=== PATIENT | male | born 1960 | race Caucasian/White ===

== ENCOUNTER 2016-07-27 20:54 | Inpatient (IN) | payer OTHER ==
[~2016-07-27] VITALS: Ht 170.2 cm; Wt 103.6 kg
[2016-07-27] MEDS ORDERED: ASPIRIN 300 MG SUPP PR STA (20:59)
[2016-07-27] MEDS ORDERED: HEPARIN 25000 UNITS/250 ML 250 ML IV STA (21:22)
[2016-07-27] MEDS ORDERED: HEPARIN 1000 UNITS/ML 10 ML INJ IV STA (21:22)
[2016-07-27 21:27] VITALS: TEMP 97.5
[2016-07-27] MEDS ORDERED: PROPOFOL 100 ML IV ONE ×2 (21:30)
[2016-07-27] MEDS ORDERED: PROPOFOL 200 MG INJ IV ONE (21:30)
[2016-07-27] MEDS ORDERED: hydrALAzine 20 MG INJ IV ONE (21:30)
[2016-07-27] MEDS ORDERED: METOPROLOL 5 MG INJ IV ONE (21:30)
[2016-07-27 21:45] LABS: POTASSIUM 5.8 mmol/L (3.5-5.1)
[2016-07-27 21:46] LABS: INR 0.99; PROTIME 13.1 Sec (12.2-14.2)
[2016-07-27 21:48] LABS: CREATININE 11.23 mg/dl (0.61-1.24)
[2016-07-27] MEDS ORDERED: NA BICARBONATE 8.4% 50 ML SYG ONE (21:56)
[2016-07-27 21:58] LABS: HEMATOCRIT 43.9 % (42.0-52.0); HEMOGLOBIN 14.2 g/dl (14.0-18.0); MEAN CORPUSCULAR HEMOGLOBIN 31.8 pg (29.0-33.0); MEAN CORPUSCULAR HGB CONC 32.3 g/dl (32.0-37.0); MEAN CORPUSCULAR VOLUME 98.2 fl (82.0-101.0); RED BLOOD COUNT 4.47 10^6/ul (4.70-6.10); RED CELL DISTRIBUTION WIDTH 15.9 % (11.5-14.5); UNCORRECTED WBC 17.1 10^3/ul (4.8-10.8); WHITE BLOOD COUNT 17.1 10^3/ul (4.8-10.8)
[2016-07-27 21:59] LABS: BASOPHILS % 1.1 % (0.0-2.0); EOSINOPHILS % 3.5 % (0.0-7.0); LYMPHOCYTES % 33.3 % (15.0-51.0); MEAN PLATELET VOLUME 10.7 fl (7.4-10.4); MONOCYTES % 5.6 % (0.0-11.0); NEUTROPHILS % 54.2 % (39.0-77.0); NUCLEATED RED BLOOD CELLS% 0.1 /100WBC (0.0-0.0); PLATELET COUNT 396 10^3/UL (140-440)
[2016-07-27 22:00] LABS: BASOPHIL # 0.2 10^3/ul (0.0-0.1); EOSINOPHILS # 0.6 10^3/ul (0.0-0.5); LYMPHOCYTES # 5.7 10^3/ul (0.8-2.9); NEUTROPHIL # 9.3 10^3/ul (1.6-7.5)
[2016-07-27] MEDS ORDERED: NITROGLYCERIN (IC) 100 MCG/ML INJ ONE (22:02)
[2016-07-27 22:03] LABS: TROPONIN-I 0.134 ng/ml (0.00-0.12)
[2016-07-27] MEDS ORDERED: METO-407 PO (22:03)
[2016-07-27] MEDS ORDERED: LOSA50TA6 PO (22:04)
[2016-07-27] MEDS ORDERED: AMLO5TAB4 PO (22:04)
[2016-07-27] MEDS ORDERED: NEPH PO (22:05)
[2016-07-27] MEDS ORDERED: MIN10 PO (22:05)
[2016-07-27] MEDS ORDERED: ALLO100T PO (22:05)
[2016-07-27] MEDS ORDERED: GABA300C16 PO (22:06)
[2016-07-27] MEDS ORDERED: ATOR80TA75 PO (22:06)
[2016-07-27] MEDS ORDERED: ASPI-664 PO (22:06)
--- NOTE | 2016-07-27 22:06 | ERA ---
ER Documentation Chief Complaint Date/Time DATE: 07/27/16 TIME: 21:47 Chief Complaint witnessed cardiac arrest, CPR x9min, epi x3, then ROSC acheived HPI This 56-year-old male was brought in by paramedics after cardiac arrest. Paramedics said that according to family patient was feeling short of breath today. He walked and sat down in a chair when he just passed out. The paramedics arrived she was in pulseless electrical activity. I gave him 2 doses of epinephrine and return of spontaneous circulation very quickly. Afterwards his blood pressure was extremely high with systolic in the 260s over diastolic in the 120s. Patient maintained pulses since.Pattern And Chain Maker EKG was not available on arrival. Patient had been intubated and was receiving bag mask ventilation. ROS Unobtainable PMhx/Soc Medical and Surgical Hx: Unable to obtain Smoking Status: Unknown if ever smoked Physical Exam Vitals Vital Signs Date Time Temp Pulse Resp B/P Pulse Ox O2 Delivery O2 Flow Rate FiO2 07/27/16 21:34 100 29 160/77 100 Mechanical Ventilator 07/27/16 21:27 97.5 99 33 178/73 100 Mechanical Ventilator 07/27/16 21:06 Bag Valve Mask 07/27/16 21:02 94.1 106 14 240/142 100 07/27/16 21:01 103 32 262/114 100 Physical Exam Const: [] Unresponsive Head: Atraumatic Eyes: Normal Conjunctiva, pupils fixed at 4 mm ENT: Normal External Ears, Nose and Mouth. Neck: Full range of motion..~ No meningismus. Resp: Decreased breath sounds on left side compared to the right, receiving bag mask ventilation Cardio: Mild regular tachycardia, no murmurs appreciated Abd: Soft, obese, no masses, non distended. Skin: No petechiae or rashes Back: No midline or flank tenderness Ext: No cyanosis, or edema Neur: Biliary unresponsive, pupils fixed approximately 4 mm, eventually chewing on ET tube Results 24 hrs Laboratory Tests Test 07/27/16 20:59 Activated Partial Thromboplast Time Pending INR International Normalized Ratio 0.99 Prothrombin Time 13.1Sec Prothrombin Time Ratio 1.0 Current Medications Medications (Trade) Dose Ordered Sig/Jaime Route PRN Reason Start Time Stop Time Status Last Admin Dose Admin Propofol (Diprivan) 100 ml @ 0 mls/hr TITRATE ONCE IV 1/25/17 21:30 07/27/16 21:31 UNV Aspirin (Aspirin) 300 mg ONCE STAT VA 07/27/16 20:59 07/27/16 21:06 DC 07/27/16 21:15 Propofol 40 mg 40 mg ONCE ONCE IV 07/27/16 21:30 07/27/16 21:31 DC Propofol (Diprivan) 100 ml @ 0 mls/hr TITRATE ONCE IV 07/27/16 21:30 07/27/16 21:31 DC Hydralazine HCl (Apresoline) 10 mg ONCE ONCE IV 07/27/16 21:30 07/27/16 21:31 DC 07/27/16 21:44 Heparin Sodium (Porcine) 5000 unit 5,000 unit ONCE STAT IV 07/27/16 21:22 07/27/16 21:25 DC 07/27/16 21:32 Heparin Sodium (Porcine) (Heparin 52833 Units/250 ml) 250 ml @ 0 mls/hr ONCE STAT IV 07/27/16 21:22 07/27/16 21:25 DC 07/27/16 21:33 Metoprolol Tartrate (Lopressor) 5 mg ONCE ONCE IV 07/27/16 21:30 07/27/16 21:31 DC Procedures/MDM Case syncope with loss of pulses in prehospital return of spontaneous circulation inpatient multiple medical comorbidities including hypertension, diabetes, renal failure on dialysis. Pulmonary GI chest x-ray. EKG returned with hyperacute T waves and mild concave ST elevations in leads V1 through V3. Dr. Guzmán was called at 2058 when EKG was received. He returned the call immediately EKG was sent here via text message. Because she can't return the call at 2114 and sent to initiate the Deputy County Attorney for diagnosis and possible treatment. Code STEMI was called at that time. Patient had already be given a rectal aspirin, 100 mg. He was also given a 5000 unit heparin bolus as well as heparin drip. WAS initiated and patient's blood pressure remained extremely high. 5 mg of hydralazine were administered. Chest x -ray showed pulmonary edema with pronounced cardiomegaly. Dr. Guzmán the Deputy County Attorney team return soon after and patient is taking the Deputy County Attorney at 2143. Spoke with Dr. Weir who will be admitting the patient to the ICU bed 111 after Deputy County Attorney. Troponin returned elevated as a potassium of 5.8 EKG interpretation: Sinus tachycardia rate of 105 left axis deviation, hyperacute T waves, mild ST elevations in labs V1 through V3 groundwater monitoring technician interpretation sinus tachycardia just over 100 with no other arrhythmias Chest x-ray interpretation: Marked cardiomegaly with pulmonary edema diffusely, no infiltrates, no pneumothorax, no fractures Critical care time 43 minutes: This includes treatment of acute myocardial infarction requiring Deputy County Attorney, postresuscitative care, ventilator management, chart review, discussion with family, discussion with intermittent a shirt ironer, discussion with admitting doctor, heparinization, greater than 20 minutes spent at the patient's bedside managing his critical condition. Departure Diagnosis: Primary Impression: Cardiac arrest Additional Impressions: Myocardial infarction Syncope Hyperkalemia Condition: Critical OLPEZ COX DO Jul 27, 2016 22:02
[2016-07-27] MEDS ORDERED: CALC667C PO (22:07)
[2016-07-27] MEDS ORDERED: OMEP40CA6 PO (22:08)
[2016-07-27] MEDS ORDERED: FLOV110 INHALATION (22:08)
[2016-07-27] MEDS ORDERED: LIDOCAINE 1% (MDV) 20 ML INJ ONE (22:09)
[2016-07-27] MEDS ORDERED: ALBU18HF INHALATION (22:09)
[2016-07-27] MEDS ORDERED: NOVO7030 SC (22:10)
[2016-07-27] MEDS ORDERED: IODIXANOL LOCM 100 ML BTL ONE (22:11)
[2016-07-27] MEDS ORDERED: IODIXANOL LOCM 50 ML BTL ONE (22:11)
[2016-07-27] MEDS ORDERED: INSU100V3 IJ (22:11)
[2016-07-27] MEDS ORDERED: IOHEXOL 350MG/ML 50 ML BTL ONE (22:11)
[2016-07-27] MEDS ORDERED: FENTAnyl 50 MCG/ML VIAL ONE (22:23)
[2016-07-27 22:26] LABS: AADO2 Arterial 333.4 mmHg (7.0-24.0); Allen Test ACCEPTAB; Arterial Base Excess -7.8 mmol/L (-3.0-3); Arterial COHb 0.8 % (0.0-3.0); Arterial Fraction of Oxyhgb 98.2 % (93.0-99.0); Arterial HCO3 21.2 mmol/L (22.0-26.0); Arterial MetHb 0.4 % (0.0-1.5); Arterial Total Hemglobin 14.5 g/dl (12.0-18.0); MODE VENT - AC
[2016-07-27 22:27] LABS: AADO2 Arterial 322.7 mmHg (7.0-24.0); Allen Test ACCEPTAB; Arterial Base Excess -6.9 mmol/L (-3.0-3); Arterial COHb 0.4 % (0.0-3.0); Arterial Fraction of Oxyhgb 98.6 % (93.0-99.0); Arterial HCO3 21.4 mmol/L (22.0-26.0); Arterial MetHb 0.4 % (0.0-1.5); Arterial Total Hemglobin 13.3 g/dl (12.0-18.0); MODE VENT - AC
[2016-07-27 22:40] LABS: PARTIAL THROMBOPLASTIN TIME 26.8 Sec (25.0-35.0)
[2016-07-27 22:50] VITALS: RESP 24
[2016-07-27 22:51] VITALS: PULSE 89
[2016-07-27 23:00] VITALS: BP 86/57; RESP 24; BMI 41.5
--- NOTE | 2016-07-27 23:00 | CONS ---
Date/Time of Note Date/Time of Note DATE: 07/27/16 TIME: 22:49 Assessment/Plan Assessment/Plan Chief Complaint/Hosp Course Cardiac arrest: PEA by history and likely respiratory but pt has borderline ST elevations and risk factors so will proceed with urgent cath for evaluation. Family is agreeable. ESRD on HD: will need HD after cath -proceed with cardiac cath for evaluation Problems: Consultation Date/Type/Reason Admit Date/Time Date of Consultation: Jul 27, 2016 Type of Consultation: Cardiology Reason for Consultation ?STEMI Hx of Present Illness 56 yo M with a h/o ESRD on HD who presented after PEA arrest at home requiring CPR and epi by paramedics with ROSC. Initial EKG was concerning for possible mild ST elevation and hyperacute TWs in the anterior leads for which cardiology was consulted. At the time of evaluation no labwork was available. The family notes that he has been feeling SOB today and that he missed his HD today ( usually MWF). Family is agreeable to cardiac cath for evaluation. unable to obtain Social History Smoking Status: Unknown if ever smoked Exam/Review of Systems Vital Signs Vitals Vital Signs Date Time Temp Pulse Resp B/P Pulse Ox O2 Delivery O2 Flow Rate FiO2 07/27/16 21:37 22 100 100 07/27/16 21:34 100 160/77 Mechanical Ventilator 07/27/16 21:27 97.5 Exam Constitutional: No alert Head: atraumatic, normocephalic ENMT: intubated Neck: No jvd (unable to assess) Respiratory: crackles/rales, diminished breath sounds Cardiovascular: edema (1+), regular rate and rhythm, No systolic murmur Gastrointestinal: non-tender, soft, No distended Extremities: No normal pulses (diminished ) Neurological: No nl mental status, No nl speech Results EKG: sinus, anteroseptal q waves with mild ST elevations and hyperacute TWs vs possible incomplete LBBB. Result Diagram: 07/27/16205807/27/162058 Results 24 hrs Laboratory Tests Test 07/27/16 20:59 07/27/16 21:30 07/27/16 22:00 Activated Partial Thromboplast Time 26.8 Anion Gap 30 H B-Type Natriuretic Peptide 5340 H Basophils # 0.2 H Basophils % 1.1 Blood Urea Nitrogen 70 H Calcium Level 9.0 Carbon Dioxide Level 20 L Chloride Level 98 Creatinine 11.23 H Eosinophils # 0.6 H Eosinophils % 3.5 Glucose Level 363 H Hematocrit 43.9 Hemoglobin 14.2 INR International Normalized Ratio 0.99 Lymphocytes # 5.7 H Lymphocytes % 33.3 Mean Corpuscular Hemoglobin 31.8 Mean Corpuscular Hemoglobin Concent 32.3 Mean Corpuscular Volume 98.2 Mean Platelet Volume 10.7 H Monocytes # 1.0 H Monocytes % 5.6 Neutrophils # 9.3 H Neutrophils % 54.2 Nucleated Red Blood Cells # 0.0 Nucleated Red Blood Cells % 0.1 H Platelet Count 396 Potassium Level 5.8 H Prothrombin Time 13.1 Prothrombin Time Ratio 1.0 Red Blood Count 4.47 L Red Cell Distribution Width 15.9 H Sodium Level 142 Troponin I 0.134 *H White Blood Count 17.1 H Arterial Blood HCO3 21.2 L 21.4 L Arterial Blood Base Excess -7.8 L -6.9 L Arterial Blood Oxygen Saturation 99.4 H 99.4 H Osiel Test ACCEPTAB ACCEPTAB Arterial Blood Gas Puncture Site Right Radial Right Radial Arterial Blood Carboxyhemoglobin 0.8 0.4 Arterial Blood Date Drawn 07/27/2016 9:33:32 PM 07/27/2016 10:18:09 PM Arterial Blood Methemoglobin 0.4 0.4 Arterial Blood pCO2 (Temp correct) 57.4 H 54.5 H Arterial Blood pH (Temp corrected) 7.185 *L 7.211 *L Arterial Blood pO2 (Temp corrected) 322.2 H 335.8 H Blood Gas A-a O2 Differential 333.4 H 322.7 H Blood Gas Actual Respiration Rate 18 22 Blood Gas Critical Value Read Back LOPEZ COX M.D., M.D. Blood Gas Modality VENT - AC VENT - AC Blood Gas Notified Time 07/27/2016 9:40:29 PM 07/27/2016 10:26:49 PM Blood Gas Notified Whom IVAN LOVE Blood Gas Respiration Rate 18.0 22.0 Blood Gas Specimen Source Blood arterial Blood arterial Blood Gas Temperature 37.0 37.0 Blood Gas Tidal Volume 550.0 550.0 FiO2 100.0 100.0 Oxyhemoglobin Percent 98.2 98.6 Total Hemoglobin 14.5 13.3 JACKSON CUNNINGHAM Jul 27, 2016 22:59
--- NOTE | 2016-07-27 23:07 | OPR ---
Date/Time of Note Date/Time of Note DATE: 07/27/16 TIME: 23:01 Operative Report Free Text/Dictation Procedure Date: 07/27/2016 Procedures Performed: 1)Selective left and right coronary angiography. 2)Right femoral angiography and Perclose closure device Pre-operative Diagnosis:Cardiac arrest, Possible STEMI Post-operative Diagnosis:cardiac arrest likely respiratory. Normal coronaries Indications: Possible STEMI post cardiac arrest Description of Procedure: The procedure site was prepped and draped in usual manner. 5mL lidocaine was injected into the right groin. Next using the Seldinger technique, the 6 pitcairn islander sheath was inserted into the right femoral artery. Next using the JL4 and Irvin (JR4 unable to engage), selective angiography of the left and nonselective angiography of the right coronary arteries were obtained. The pigtail was then advanced into the ventricle and hemodynamics obtained. Left ventricle angiography was not obtained due to elevated LVEDP. Next all equipment was removed and hemostasis was obtained by Perclose closure device after femoral angiography was performed. 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
[2016-07-27 23:30] VITALS: BP 99/67; PULSE 77; RESP 17
--- NOTE | 2016-07-27 23:40 | RADRPT ---
PROCEDURE: XR Chest. CLINICAL INDICATION: Chest pain. TECHNIQUE: AP Portable chest. COMPARISON: No pertinent prior examinations were submitted for comparison. FINDINGS: There is moderate to marked cardiomegaly. There is marked pulmonary vascular congestion. The osseo us structures are unremarkable. An endotracheal tube tip is within the distal trachea, 16 mm above the level of the chino. This ca n be pulled back 2 cm for placement in the mid trachea. A nasogastric tube tip is not well seen alt miryam I extends at least into the proximal stomach region. IMPRESSION: Marked pulmonary vascular congestion. RPTAT: HIKT .Zca Yao MD, MD Date Time Electronically viewed and signed by .Zac Yao MD, MD on 07/27/2016 23:40 .T/
[2016-07-27 23:51] VITALS: PULSE 89
[2016-07-28] VITALS (81 sets, daily range): BP systolic 74–197; BP diastolic 43–97; PULSE 74–119; RESP 14–28
[2016-07-28] MEDS ORDERED: NORepinephrine 8MG/250 ML (PMX 250 ML IV SCH
--- NOTE | 2016-07-28 00:21 | HP ---
Date/Time of Note Date/Time of Note DATE: 07/27/16 TIME: 23:56 Assessment/Plan VTE Prophylaxis VTE Prophylaxis Intervention: heparin Lines/Catheters IV Catheter Type (from Nrs): Saline Lock Assessment/Plan Assessment/Plan 56 yo male with a past medical history of ESRD on HD, Essential Hypertension, Asthma, Type II DM, Nephrolithiasis, Smoking abuse, obesity, who was brought in by ambulance for cardiac arrest. 1. PEA s/p cardiac arrest with ROSC - will admit the patient to the ICU, continue telemetry monitoring, f/u cardio recs, LHC - negative for coronary artery disease, ECHO, carotid duplex 2. ESRD on HD - dialysis now, and prn as per nephrology 3. Leukocytosis - atypical pneumonia - will start cefepime/vanc, could also be reactive from CPR - monitor trend, de-escalate antibiotics as tolerated 4. VDRF - consult pulm, wean off of vent as tolerated, prn breathing treatments , ABG in am, CXR in am 5. Hypotension - cardiac shock vs septic shock - continue with pressor support, IV solu-medrol 125 x 1 6. CHF - acute - diastolic vs systolic dysfunction - fluid to be removed via dialysis - monitor I/O's 7. Metabolic with respiratory acidosis - 2/2 to cardiac arrest - s/p bicarb - f/ u labs - adjust vent and bicarb drip if low pH 8. Essential hypertension - hold medications as patient is hypotensive 9. Type II DM - uncontrolled, check Hgba1c, ISS, lantus 10. Asthma - currently on vent, continue with breathing treatments 11. Smoking abuse - patient will be counseled on cessation once extubated 12. Obesity - consider nutrition consult once extubated 13. GI ppx - protonix 14. DVT ppx - heparin answered all of the families questions. as per clinical course. this critical care note took greater than 1 hour to complete HPI/ROS Admit Date/Time Admit Date/Time 07/27/2016, 11:00 pm Hx of Present Illness 56 yo male with a past medical history of ESRD on HD, Essential Hypertension, Asthma, Type II DM, Nephrolithiasis, Smoking abuse, obesity, who was brought in by ambulance for cardiac arrest. As per the patients family, he has been suffering from shortness of breath for one week. Today, he was noted to have worsening shortness of breath, with audible wheezing, and acutely decompensated. He told his to call 911. Subsequently the patient passed out and EMD arrived promptly. CPR was initiated as the patient went into PEA ( pulseless electrical activity). Patient had ACLS CPR for approximately 20 minutes duration. ROSC was achieved. The patient was noted to ST elevations on his EKG on arrival to the ER here, and a Code STEMI was called. He was taken emergently to the lab support technician, where a LHC was conducted. Patient was intubated and sedated as well and transferred to the ICU. ROS cannot be assessed as the patient is intubated and sedated PMH/Family/Social Past Medical History Asthma, nephrolithiasis, morbid obesity Medical History: diabetes, hypertension, renal disease (ESRD on HD) Past Surgical History left upper extremity fistula placement Family History Significant Family History: no pertinent family hx Social History Alcohol Use: none Smoking Status: Current every day smoker (1 ppd x 40 years) Drug Use: none Exam/Review of Systems Vital Signs Vitals Vital Signs Date Time Temp Pulse Resp B/P Pulse Ox O2 Delivery O2 Flow Rate FiO2 07/27/16 21:37 22 100 100 07/27/16 21:34 100 160/77 Mechanical Ventilator 07/27/16 21:27 97.5 Exam Exam Gen Sid: intubated/sedated HEENT: NC/AT, PERRLA, ETT tube in place NECK: supple, no thyromegaly THORAX: symmetrical, no obvious deformities CV: S1S2, RRR, no M/G/R - distant heart sounds 2/2 to body habitus Lungs: diminished breath sounds bilaterally, scattered wheezing noted Abd: soft, NT/ND, +BS, no rebound, no guarding, neg HSM, protuberant EXT: 1+ pitting edema bilateral lower extremities, no ecchymosis, no clubbing, LUE fistula - faint bruit/thrill noted Neuro: intubated sedated Psych: cannot assess Skin: C/D/I Labs Result Diagram: 07/27/16205807/27/162058 Medications Medications Current Medications Miscellaneous Information (* Miscellaneous Pharmacy Order) HOLD all METFORMIN ... ONCE XX ; Start 07/27/16 at 23:00; Stop 07/29/16 at 22:59 Procedures Procedures CXR IMPRESSION: Marked pulmonary vascular congestion. FARHANA SPENCE MD Jul 28, 2016 00:06
[2016-07-28] MEDS ORDERED: VANCOMYCIN 2 GM in SOD CHLORIDE 0.9% 500 ML IVPB ONE (00:30)
[2016-07-28] MEDS ORDERED: VANCOMYCIN IV PER PHARMACY XX SCH (00:30)
[2016-07-28] MEDS ORDERED: METHYLPREDNISOLONE 125 MG INJ IV ONE (00:30)
[2016-07-28] MEDS: LEVETIRACETAM IV 500 MG in SOD CHLORIDE 0.9% 100 ML IVPB SCH ×3 (01:01→21:39)
[2016-07-28] MEDS: INSULIN ASPART [NOVOLOG] 3 ML PEN SC SCH ×3 (01:41→08:32)
[2016-07-28] MEDS: CEFEPIME 1GM/50 ML (PMX) 50 ML IVPB SCH (04:19)
[2016-07-28 07:18] LABS: TROPONIN-I 0.221 ng/ml (0.00-0.12)
[2016-07-28 07:48] LABS: ALBUMIN 3.9 g/dl (3.3-4.9); POTASSIUM 5.4 mmol/L (3.5-5.1)
[2016-07-28 07:51] LABS: Allen Test ACCEPTAB; Arterial COHb 0.4 % (0.0-3.0); Arterial Fraction of Oxyhgb 96.8 % (93.0-99.0); Arterial HCO3 27.7 mmol/L (22.0-26.0); Arterial MetHb 0.2 % (0.0-1.5); Arterial Total Hemglobin 13.5 g/dl (12.0-18.0); MODE VENT - AC
[2016-07-28 07:51] LABS: ALBUMIN/GLOBULIN RATIO 1.05; CREATININE 7.99 mg/dl (0.61-1.24); TOTAL PROTEIN 7.6 g/dl (6.1-8.1)
[2016-07-28 07:52] LABS: CALCIUM 8.4 mg/dl (8.4-10.2)
[2016-07-28 08:02] LABS: BASOPHILS % 0.1 % (0.0-2.0); EOSINOPHILS % 0.1 % (0.0-7.0); HEMATOCRIT 38.3 % (42.0-52.0); LYMPHOCYTES # 0.4 10^3/ul (0.8-2.9); LYMPHOCYTES % 3.7 % (15.0-51.0); MEAN CORPUSCULAR HGB CONC 33.9 g/dl (32.0-37.0); MEAN CORPUSCULAR VOLUME 94.3 fl (82.0-101.0); MEAN PLATELET VOLUME 8.6 fl (7.4-10.4); MONOCYTE # 0.1 10^3/ul (0.3-0.9); NEUTROPHIL # 9.5 10^3/ul (1.6-7.5); NEUTROPHILS % 95.1 % (39.0-77.0); PLATELET COUNT 255 10^3/UL (140-440); RED BLOOD COUNT 4.06 10^6/ul (4.70-6.10); RED CELL DISTRIBUTION WIDTH 16.5 % (11.5-14.5)
[2016-07-28 08:05] LABS: CONDITION 1; LH ANALYZER COMMENTS 1
[2016-07-28] MEDS ORDERED: PROPOFOL 100 ML ONE (08:16)
[2016-07-28] MEDS: PROPOFOL 100 ML IV PRN ×4 (08:38→23:01)
[2016-07-28] MEDS ORDERED: LEVETIRACETAM IV 500 MG in SOD CHLORIDE 0.9% 100 ML IVPB SCH (09:00)
[2016-07-28] MEDS ORDERED: GLUCOSE GEL 15 GRAM TUBE PO PRN ×2 (09:00)
[2016-07-28] MEDS ORDERED: GLUCOSE GEL 15 GRAM TUBE BUCCAL PRN (09:00)
[2016-07-28] MEDS ORDERED: GLUCAGON 1 MG INJ IM PRN (09:00)
[2016-07-28] MEDS ORDERED: DEXTROSE 50% 50 ML SYRINGE IV PRN ×4 (09:00→10:00)
--- NOTE | 2016-07-28 09:02 | RADRPT ---
PROCEDURE: Chest Radiograph. CLINICAL INDICATION: Respiratory failure TECHNIQUE: Single frontal chest radiograph. COMPARISON: Chest radiograph 07/27/2016 FINDINGS: The patient is moderately rotated which limits evaluation. An endotracheal tube and nasogastric tub e remain in stable and radiographically appropriate position. Heart size is poorly evaluated. Ther e is likely stable central congestion. Patchy left greater than right bilateral air space disease is most consistent with pulmonary edema, and appears unchanged. The bones are intact. IMPRESSION: 1. Stable radiographic appearance of chest compared to 07/27/2016 allowing for differences in techn ique. RPTAT: KK .Albert Luna MD, MD Date Time Electronically viewed and signed by .Albert Luna MD, on 07/28/2016 09:02 .B/
[2016-07-28] MEDS: ACETAMINOPHEN 650 MG SUPP PR PRN (09:58)
[2016-07-28] MEDS: ACCUCHECK XX SCH ×14 (10:00→23:00)
[2016-07-28] MEDS ORDERED: LIDOCAINE 1% (MDV) 20 ML INJ SC ONE (10:00)
[2016-07-28 11:27] LABS: CK-MB 2.99 ng/ml (0.0-2.4); TROPONIN-I 0.219 ng/ml (0.00-0.12)
--- NOTE | 2016-07-28 11:55 | CONS ---
DATE OF ADMISSION: 07/27/2016 DATE OF CONSULTATION: 07/28/2016 TYPE OF CONSULTATION: Pulmonary. REASON FOR CONSULTATION: Ventilator management. Thank you, Dr. Zamudio, for this consultation. HISTORY OF PRESENT ILLNESS: This is an unfortunate 56-year-old gentleman, end-stage renal failure o n hemodialysis. He became unresponsive during hemodialysis yesterday. Prior to this, he had been e xperiencing shortness of breath for approximately 1 week. CPR was commenced, the patient was in PEA . Approximately 20 minutes of CPR was required before return of circulation. The patient was taken to cardiac prosthetic lab technician emergently and found to have no significant occlusive lesions with an LVEDP of 25. The patient remains intubated on mechanical ventilation. He required sedation for ongoing seiz ures has now been placed on Keppra. He is pending neurology evaluation and recommendations. PAST MEDICAL HISTORY: Hypertension, hyperlipidemia, diabetes, end-stage renal failure, history of t obacco use, probable underlying COPD and probable underlying obstructive sleep apnea given body habi tus. MEDICATIONS: Per chart. ALLERGIES: None. SOCIAL HISTORY: Positive tobacco history. Alcohol unknown. PHYSICAL EXAMINATION: GENERAL: Chronically ill appearing gentleman, intubated on mechanical ventilation, somnolent. VITAL SIGNS: Temperature 100.2, pulse is 100, blood pressure 167/70, O2 saturation 96%, FIO2 of 60% . NECK: Supple. No JVD or lymphadenopathy. CARDIAC: S1, S2, no added sounds or murmurs. CHEST: Diminished air entry bilaterally. ABDOMEN: Soft, nontender. No guarding, no rebound, obese. EXTREMITIES: No cyanosis, clubbing or edema. NEUROLOGIC: Generalized weakness. LABORATORY DATA: ABG: pH 7.43, pCO2 of 42, pO2 of 91. BUN 57, creatinine 7.99, potassium 5.4, glu cose 333. Troponin 0.221. INR 0.99. DIAGNOSTIC DATA: Chest x-ray shows left-sided infiltrates. IMPRESSION AND PLAN: 1. Cardiopulmonary arrest. 2. 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 3. End-stage renal failure. 4. No evidence of occlusive lesions on cardiac catheterization. The patient will require: 1. Continued mechanical ventilation. 2. Neurology evaluation. 3. EEG. 4. Continue antiepileptics. 5. MRI of brain when stable. 6. Continue hemodialysis with correction of electrolytes. 7. palliative care consult as prognosis is poor. 8. Continue antibiotics for possible aspiration pneumonia. Dictated By: JAVED WEBBER/BATSHEVA Conf#: [id number] DID#: [id number]
--- NOTE | 2016-07-28 11:56 | CONS ---
Date/Time of Note Date/Time of Note DATE: 07/28/16 TIME: 11:44 Assessment/Plan Assessment/Plan Chief Complaint/Hosp Course 56 year old M with hx of ESRD, HTN, DM, Asthma began experiencing SOB suffered PEA arrest with ROSC for 20 mins, STEMI s/p cardiac catheterization with no intervention with possible seizure activity vs. post anoxic myoclonus. -continue on Keppra 500 mg q12h propofol held, no abnormal movements noted aside from intermittent eye blinking -Routine EEG ordered -Head CT without contrast to be done this afternoon -continue neurologic exams off sedation -will follow Problems: Consultation Date/Type/Reason Admit Date/Time 07/27/2016, 11:00 pm Date of Consultation: Jul 28, 2016 Type of Consultation: Neurology Reason for Consultation evaluation for seizures, anoxic injury Referring Provider: JAVED PIERCE MD, [facility] Hx of Present Illness 56 year old male with history of ESRD secondary to diabetes on HD over a year, essential hypertension, Asthma, smoking history, obesity brought in by ambulance after cardiac arrest yesterday at 8 pm. Per history obtained from family he had been complaining of shortness of breath, attempted to use his inhaler, his witnessed him close his eyes and noted his tongue move to the right side of his mouth with blood she immediately called 911, he went into PEA arrest and received ACLS CPR for about 20 mins. On arrival to the hospital ST elevations on EKG taken emergently at a Code STEMI to the cath. lab with no intervention performed. He was transferred to the ICU for further care. Per nursing staff he had witnessed jerking suspicious for seizures, also notable after receiving dialysis earlier this morning at 5 am. Keppra 500 mg q12h was initiated and propofol increased after event this morning. No further jerking activity was noted. Subjective hx not possible: pt critical status Past Medical History as per HPI Medical History: diabetes, hypertension, renal disease (ESRD on HD) Social History Alcohol Use: none Smoking Status: Current every day smoker (1 ppd x 40 years) Drug Use: none Exam/Review of Systems Vital Signs Vitals Vital Signs Date Time Temp Pulse Resp B/P Pulse Ox O2 Delivery O2 Flow Rate FiO2 07/28/16 08:00 100.2 109 25 167/74 100 Mechanical Ventilator 07/28/16 04:55 60 Intake and Output 07/27/16 07/27/1617 15:00 23:00 07:00 Intake Total 1403.622 ml Output Total 4170 ml Balance -2766.378 ml Exam intubated, examined off sedation (propofol held for 15 mins.) no response to verbal command unable to open his eyes spontaneously no grimace to noxious stimuli not overbreathing the ventilator morbidly obese eyes forced open gaze is upwards, no lateralized gaze preference pupils reactive to 3 mm no nystagmus noted, blinking intermittently but absent corneals gag present no withdrawal to noxious stimuli in extremities no grimace to pain toes are mute Results Result Diagram: 07/28/16 0550 07/28/16 0550 Results 24 hrs Laboratory Tests Test 07/27/16 20:59 07/27/16 21:30 07/27/16 22:00 07/28/16 01:36 Activated Partial Thromboplast Time 26.8 Anion Gap 30 H B-Type Natriuretic Peptide 5340 H Basophils # 0.2 H Basophils % 1.1 Blood Urea Nitrogen 70 H Calcium Level 9.0 Carbon Dioxide Level 20 L Chloride Level 98 Creatinine 11.23 H Eosinophils # 0.6 H Eosinophils % 3.5 Glucose Level 363 H Hematocrit 43.9 Hemoglobin 14.2 INR International Normalized Ratio 0.99 Lymphocytes # 5.7 H Lymphocytes % 33.3 Mean Corpuscular Hemoglobin 31.8 Mean Corpuscular Hemoglobin Concent 32.3 Mean Corpuscular Volume 98.2 Mean Platelet Volume 10.7 H Monocytes # 1.0 H Monocytes % 5.6 Neutrophils # 9.3 H Neutrophils % 54.2 Nucleated Red Blood Cells # 0.0 Nucleated Red Blood Cells % 0.1 H Platelet Count 396 Potassium Level 5.8 H Prothrombin Time 13.1 Prothrombin Time Ratio 1.0 Red Blood Count 4.47 L Red Cell Distribution Width 15.9 H Sodium Level 142 Troponin I 0.134 *H White Blood Count 17.1 H Arterial Blood HCO3 21.2 L 21.4 L Arterial Blood Base Excess -7.8 L -6.9 L Arterial Blood Oxygen Saturation 99.4 H 99.4 H Osiel Test ACCEPTAB ACCEPTAB Arterial Blood Gas Puncture Site Right Radial Right Radial Arterial Blood Carboxyhemoglobin 0.8 0.4 Arterial Blood Date Drawn 07/27/2016 9:33:32 PM 07/27/2016 10:18:09 PM Arterial Blood Methemoglobin 0.4 0.4 Arterial Blood pCO2 (Temp correct) 57.4 H 54.5 H Arterial Blood pH (Temp corrected) 7.185 *L 7.211 *L Arterial Blood pO2 (Temp corrected) 322.2 H 335.8 H Blood Gas A-a O2 Differential 333.4 H 322.7 H Blood Gas Actual Respiration Rate 18 22 Blood Gas Critical Value Read Back LOPEZ COX M.D., M.D. Blood Gas Modality VENT - AC VENT - AC Blood Gas Notified Time 07/27/2016 9:40:29 PM 07/27/2016 10:26:49 PM Blood Gas Notified Whom IVAN LOVE Blood Gas Respiration Rate 18.0 22.0 Blood Gas Specimen Source Blood arterial Blood arterial Blood Gas Temperature 37.0 37.0 Blood Gas Tidal Volume 550.0 550.0 FiO2 100.0 100.0 Oxyhemoglobin Percent 98.2 98.6 Total Hemoglobin 14.5 13.3 Bedside Glucose 332 H Test 07/28/16 05:17 07/28/16 05:50 07/28/16 07:00 07/28/16 08:30 Bedside Glucose 314 H 333 H Alanine Aminotransferase (ALT/SGPT) 124 H Albumin 3.9 Albumin/Globulin Ratio 1.05 Alkaline Phosphatase 127 H Anion Gap 21 #H Aspartate Amino Transf (AST/SGOT) 83 H Basophils # 0.0 Basophils % 0.1 Blood Morphology Comment Blood Urea Nitrogen 57 H Calcium Level 8.4 Carbon Dioxide Level 27 Chloride Level 98 Creatine Kinase 202 H Creatine Kinase Index 1.5 Creatinine 7.99 #H Creatinine Kinase MB (Mass) 3.00 H Direct Bilirubin 0.00 Eosinophils # 0.0 Eosinophils % 0.1 Globulin 3.70 H Glucose Level 326 H Hematocrit 38.3 L Hemoglobin 13.0 L Indirect Bilirubin 0.0 Lymphocytes # 0.4 L Lymphocytes % 3.7 L Mean Corpuscular Hemoglobin 32.0 Mean Corpuscular Hemoglobin Concent 33.9 Mean Corpuscular Volume 94.3 Mean Platelet Volume 8.6 Monocytes # 0.1 L Monocytes % 1.0 Neutrophils # 9.5 H Neutrophils % 95.1 H Nucleated Red Blood Cells # 0.0 Nucleated Red Blood Cells % 0.0 Platelet Count 255 # Potassium Level 5.4 H Red Blood Count 4.06 L Red Cell Distribution Width 16.5 H Sodium Level 141 Total Bilirubin 0.0 L Total Protein 7.6 Troponin I 0.221 *H White Blood Count 10.0 # Arterial Blood HCO3 27.7 H Arterial Blood Base Excess 3.0 Arterial Blood Oxygen Saturation 97.4 Osiel Test ACCEPTAB Arterial Blood Gas Puncture Site Right Brachial Arterial Blood Carboxyhemoglobin 0.4 Arterial Blood Date Drawn 07/28/2016 7:38:23 AM Arterial Blood Methemoglobin 0.2 Arterial Blood pCO2 (Temp correct) 42.6 Arterial Blood pH (Temp corrected) 7.431 Arterial Blood pO2 (Temp corrected) 91.9 Blood Gas A-a O2 Differential 289.0 H Blood Gas Actual Respiration Rate 24 Blood Gas Low PEEP Setting 5.0 Blood Gas Modality VENT - AC Blood Gas Notified Time 07/28/2016 7:51:47 AM Blood Gas Notified Whom TM Blood Gas Respiration Rate 24.0 Blood Gas Specimen Source Blood arterial Blood Gas Temperature 37.0 Blood Gas Tidal Volume 550.0 FiO2 60.0 Oxyhemoglobin Percent 96.8 Total Hemoglobin 13.5 Test 07/28/16 09:39 Creatine Kinase 207 H Creatine Kinase Index 1.4 Creatinine Kinase MB (Mass) 2.99 H Lactic Acid Level 2.3 H Troponin I 0.219 *H Medications Medications Current Medications Miscellaneous Information HOLD all METFORMIN ... ONCE XX ; Start 07/27/16 at 23: 00; Stop 07/29/16 at 22:59 Levetiracetam 500 mg/Sodium Chloride 105 ml @ 420 mls/hr Q12 IVPB Last administered on 07/28/16 08:21; Admin Dose 420 MLS/HR; Start 07/28/16 at 00:00 Norepinephrine 16 mg/Dextrose 500 ml @ 1.87 mls/hr TITRATE IV ; Start 07/28/16 at 04:00 Cefepime HCl (Maxipime 1gm/50 ml (Pmx)) 50 ml @ 100 mls/hr Q24H IVPB Last administered on 07/28/16 04:19; Admin Dose 100 MLS/HR; Start 07/28/16 at 01:00 Labetalol HCl 10 mg 10 mg Q6H PRN IV sbp > 160; Start 07/28/16 at 00:30 Propofol (Diprivan) 100 ml @ 3.609 mls/ hr Q12H PRN IV SEDATION Last administered on 07/28/16 08:38; Admin Dose 28.872 MLS/HR; Start 07/28/16 at 02: 30 Acetaminophen (Tylenol Supp) 650 mg Q6H PRN NH PAIN AND OR ELEVATED TEMP Last administered on 07/28/16 09:58; Admin Dose 650 MG; Start 07/28/16 at 08:30 Miscellaneous Information 1 ea NOTE XX ; Start 07/28/16 at 09:00 Glucose (Glutose) 15 gm Q15M PRN PO DECREASED GLUCOSE; Start 07/28/16 at 09:00 Glucose (Glutose) 22.5 gm Q15M PRN PO DECREASED GLUCOSE; Start 07/28/16 at 09: 00 Dextrose (D50w Syringe) 25 ml Q15M PRN IV DECREASED GLUCOSE; Start 07/28/16 at 09:00 Dextrose (D50w Syringe) 50 ml Q15M PRN IV DECREASED GLUCOSE; Start 07/28/16 at 09:00 Glucagon (Glucagen) 1 mg Q15M PRN IM DECREASED GLUCOSE; Start 07/28/16 at 09:00 Glucose (Glutose) 15 gm Q15M PRN BUCCAL DECREASED GLUCOSE; Start 07/28/16 at 09 :00 Diagnostic Test (Pha) (Accucheck) 1 ea Q1H XX ; Start 07/28/16 at 10:00 Dextrose (D50w Syringe) 25 ml Q15M PRN IV Till BS 80 mg/dL or above x2; Start 07/28/16 at 10:00 Dextrose (D50w Syringe) 50 ml Q15M PRN IV Till BS 80 mg/dL or above x2; Start 07/28/16 at 10:00 TORI CHERY MD Jul 28, 2016 11:55
--- NOTE | 2016-07-28 12:01 | RADRPT ---
PROCEDURE: CT brain without contrast CLINICAL INDICATION: Syncope TECHNIQUE: CT of the brain without contrast performed on a multidetector CT scanner. One or more o f the following dose reduction techniques were used: Automated exposure control, adjustment in mA an d / or kV according to patient size, use of iterative reconstructive technique. CTDIvol = 41 mGy; D LP = 630 mGy-cm. COMPARISON: None available FINDINGS: No acute intracranial hemorrhage is identified. No extra-axial fluid collection is seen. There is no mass effect. No midline shift is identified. Ventricles and sulci are mildly enlarged compatible with generalized volume loss. There are minimal areas of hypodensity in the periventricular - deep white matter which are nonspeci fic but suggestive of chronic small vessel ischemic changes. Rodríguez-white differentiation is preserve d. Atherosclerotic calcifications of the proximal intracranial arteries are noted. Osseous structures are unremarkable. Mastoid air cells and imaged paranasal sinuses grossly clear. IMPRESSION: 1. No evidence of acute intracranial pathology. 2. Mild generalized volume loss, with minimal chronic small vessel ischemic changes. RPTAT: VV .Richard Lennon MD, MD Date Time Electronically viewed and signed by .Richard Lennon MD, MD on 07/28/2016 12:01 .O/
--- NOTE | 2016-07-28 13:27 | RADRPT ---
Echocardiogram Report Patient Name: BARRERA LLAMAS Gender: Male Date: 1960 Study Date: 28-Jul-2016 Public Health Educator: Nino Dillon [facility] Location: [facility] Ref. Physician: FARHANA SPENCE Quality: Adequate Procedures: Transthoracic echocardiogram with complete 2D, M-Mode, and doppler examination. Indications: Cardiac Arrest. 2D/M Mode Doppler Measurement Value Normal Ranges Measurement Value Normal Ranges LVIDd 2D 5.7 3.5 - 5.6 cm AV [place] 1.4 m/sec LVIDs 2D 3.3 2.1 - 4.1 cm AV Peak PG 8.4 mmHg LVPWd 2D 1.2 0.6 - 1.1 cm LVOT [place] 1.2 m/sec IVSd 2D 1.2 0.6 - 1.1 cm LVOT Peak PG 6.2 mmHg AoR Diam 2D 3.3 2.0 - 3.7 cm EDV 2D 160.4 cm3 ESV 2D 36.0 cm3 LA Dimen 2D 4.4 2.3 - 4.0 cm Findings Left Ventricle: Normal left ventricular systolic function. Normal left ventricular cavity size. Ejection fraction is visually estimated at 60 %. Right Ventricle: Normal right ventricular size. Normal right ventricular systolic function. Left Atrium: The left atrium is normal in size. Right Atrium: The right atrium is normal in size. Mitral Valve: Normal appearance and function of the mitral valve with trace physiologic regurgitation. Aortic Valve: Normal appearance of the aortic valve. No significant aortic stenosis or insufficiency. Tricuspid Valve: Normal appearance of the tricuspid valve. Unable to obtain RVSP due to minimal presence of tricuspid regurgitation. Pericardium: Small pericardial effusion. Aorta: Normal aortic root. IVC: Dilated inferior vena cava without respiratory collapse, however, patient on ventilator. Conclusions 1.Technically challenging study. 2.The left ventricle is normal in size and systolic function. 3.Estimated left ventricular ejection fraction of 60%. Electronically Signed By: Tyler Lozano 28-Jul-2016 13:27:24 -0800 Patient Name: BARRERA LLAMAS Study Date: 28-Jul-[id number]
--- NOTE | 2016-07-28 14:45 | CONS ---
DATE OF ADMISSION: 07/27/2016 DATE OF CONSULTATION: RENAL CONSULTATION Thank you, Dr. Brice, for asking me to participate in medical management of this patient. REASON FOR CONSULTATION: End-stage renal disease. HISTORY OF PRESENT ILLNESS: This 56-year-old man was apparently in his usual state of health until yesterday. He was at home and at sometime during the day he started to develop some shortness of br eath with wheezing. The patient does have a history of asthma. The patient also has a history of e nd-stage renal disease due to type 2 diabetes mellitus. The patient is on maintenance hemodialysis Monday, Monday and Monday. Yesterday being Monday, the patient was due for his routine hemodi alysis treatment; however, he did not feel well enough to go to dialysis because of his increasing s hortness of breath. The patient called the dialysis unit and was to go to dialysis today. The cherelle ent then became more short of breath. The patient is currently intubated on a ventilator and unable to give any history. This history is taken from the patient's daughter and who are in the arash m with him. The patient yesterday became more short of breath with increasing wheezing. He was cou ghing. He then passed out and had a cardiac arrest. Paramedics were called and the paramedics came to the patient's house. According to notes in the chart, the patient had ACLS, CPR for approximat jamie 20 minutes' duration. ROSC was achieved. The patient was noted to have ST elevations on his EK G when he arrived to the emergency room. A code STEMI was called. The patient was taken to the cat h lab where left heart catheterization was performed. The patient was intubated and sedated prior t o his transfer to the ICU. The patient had a negative left heart cath for coronary artery disease. He, however, has remained unresponsive and is currently on sedation. Apparently when they decrease d the patient's sedation, he had some myoclonic jerking and may have had a seizure. The patient was seen by neurology and was started on Keppra. The patient had an emergent hemodialysis treatment la night and 3.4 liters of fluid were removed. The patient is now in the ICU, intubated on a ventil ator. The patient usually dialyzes in [place]. His promotion specialist is Dr. Nevarez. PAST MEDICAL HISTORY: Remarkable for asthma/COPD, nephrolithiasis, end-stage renal disease on maint enance hemodialysis, type 2 diabetes mellitus, hypertension, morbid obesity. PAST SURGICAL HISTORY: He has a left upper extremity AV fistula for hemodialysis. FAMILY HISTORY: Unremarkable. SOCIAL HISTORY: The patient does not drink alcohol. He does smoke, has a 1-pack per day cigarette smoking history for at least 40 years. MEDICATIONS: He is currently on the following medications: 1. Insulin. 2. Tylenol suppository p.r.n. 3. Propofol. 4. Cefepime IV q.24h. 5. Albuterol, Atrovent inhalers. 6. Vancomycin. 7. Labetalol IV p.r.n. 8. Keppra 500 mg IV q.12h. PHYSICAL EXAMINATION: GENERAL: At this time reveals a well-developed man who is unresponsive, intubated on a ventilator a nd sedated. VITAL SIGNS: His temperature earlier was 101, pulse of 100, blood pressure 132/75. The patient is c urrently having an acute hemodialysis treatment. HEENT: Normocephalic. ET tube in place. NECK: No neck vein distention. LUNGS: There were scattered inspiratory and expiratory wheezes. HEART: Regular rhythm. No murmurs, gallops or rubs. ABDOMEN: Obese, soft. EXTREMITIES: Trace pretibial edema. LABORATORY DATA: Done this morning, white blood count 10,000, hemoglobin 13, hematocrit 38.3, plate let count of 255,000. Chemistry this morning, sodium 141, potassium 5.4, chloride 98, CO2 of 27, BU N 57, creatinine 7.99. IMAGING: Chest x-ray done today shows some stable central pulmonary congestion, patchy left greater than right bilateral airspace disease most consistent with pulmonary edema. IMPRESSION: 1. End-stage renal disease. This patient has end-stage renal disease and is on maintenance hemodia lysis. The patient came in yesterday after a cardiac arrest at home. His history is consistent wit h him having increasing shortness of breath probably due to his underlying asthma. He then had a fu ll cardiac arrest and was resuscitated in the field by paramedics. The patient did have hemodialysi s last night and 3.4 liters of fluid were removed. His chest x-ray yesterday did show pulmonary olya ma. There are still some patchy infiltrates on his chest x-ray consistent with pulmonary edema. Th e patient's potassium today was elevated and he is undergoing dialysis now to both remove fluid and to correct his high potassium. 2. Status post cardiac arrest. 3. Altered level of consciousness, possible anoxic encephalopathy. The patient has been evaluated by neurology. 4. Type 2 diabetes mellitus. 5. Asthma/chronic obstructive pulmonary disease. PLAN 1. The patient now undergoing a dialysis treatment. I will follow the patient closely and will mon itor daily labs and determine next dialysis. I will also assess his fluid status daily. 2. Continue patient on broad-spectrum antibiotics. 3. Neurology is following patient for altered level of consciousness. Dictated By: ROSCOE LANGE MD, ND/BATSHEVA Conf#: [id number] DID#: [id number]
--- NOTE | 2016-07-28 15:04 | PN ---
Date/Time of Note Date/Time of Note DATE: 07/28/16 TIME: 14:55 Assessment/Plan VTE Prophylaxis VTE Prophylaxis Intervention: heparin Lines/Catheters IV Catheter Type (from Nrs): Peripheral IV Assessment/Plan Chief Complaint/Hosp Course 1. PEA s/p cardiac arrest with ROSC - will admit the patient to the ICU, continue telemetry monitoring, f/u cardio recs, LHC - negative for coronary artery disease, ECHO, carotid duplex -Etiology of PEA likely 2/2 Hypoxia -CT Brain shows no CVA or signs of anoxic injury 2. ESRD on HD - dialysis now, and prn as per nephrology 3. SIRS with elevated white count and fever-likely reactive -no e/o infection, cont cefepime/vanc for now but consider DC of ABx tomorrow if no further e/o SIRS 4. VDRF -pulm consult appreciated, wean off of vent as tolerated, prn breathing treatments, ABG in am, CXR in am 5. Hypotension - cardiac shock vs septic shock - continue with pressor support, IV solu-medrol 125 x 1 6. CHF - acute - diastolic vs systolic dysfunction - fluid to be removed via dialysis - monitor I/O's 7. Metabolic with respiratory acidosis - 2/2 to cardiac arrest - s/p bicarb - f/ u labs - adjust vent and bicarb drip if low pH 8. Essential hypertension - hold medications as patient is hypotensive 9. Type II DM - uncontrolled, check Hgba1c, ISS, lantus 10. Asthma - currently on vent, continue with breathing treatments 11. Smoking abuse - patient will be counseled on cessation once extubated 12. Obesity - consider nutrition consult once extubated 13. GI ppx - protonix 14. DVT ppx - heparin Problems: Subjective 24 Hr Interval Summary Subjective hx not possible: pt non-verbal Exam/Review of Systems Vital Signs Vitals Vital Signs Date Time Temp Pulse Resp B/P Pulse Ox O2 Delivery O2 Flow Rate FiO2 07/28/16 14:45 101 07/28/16 13:30 27 07/28/16 13:00 98 07/28/16 12:00 101.0 132/75 Mechanical Ventilator 07/28/16 12:00 60 Intake and Output 07/27/16 07/27/16 07/28/16 15:00 23:00 07:00 Intake Total 1403.622 ml Output Total 4170 ml Balance -2766.378 ml Exam Constitutional: non-verbal ENMT: intubated Respiratory: clear to auscultation Cardiovascular: regular rate and rhythm Gastrointestinal: soft, No distended Musculoskeletal: nl extremities to inspection Results Result Diagram: 07/28/16 0550 07/28/16 0550 Results 24 hrs Laboratory Tests Test 07/27/16 20:59 07/27/16 21:30 07/27/16 22:00 07/28/16 01:36 Activated Partial Thromboplast Time 26.8 Anion Gap 30 H B-Type Natriuretic Peptide 5340 H Basophils # 0.2 H Basophils % 1.1 Blood Urea Nitrogen 70 H Calcium Level 9.0 Carbon Dioxide Level 20 L Chloride Level 98 Creatinine 11.23 H Eosinophils # 0.6 H Eosinophils % 3.5 Glucose Level 363 H Hematocrit 43.9 Hemoglobin 14.2 INR International Normalized Ratio 0.99 Lymphocytes # 5.7 H Lymphocytes % 33.3 Mean Corpuscular Hemoglobin 31.8 Mean Corpuscular Hemoglobin Concent 32.3 Mean Corpuscular Volume 98.2 Mean Platelet Volume 10.7 H Monocytes # 1.0 H Monocytes % 5.6 Neutrophils # 9.3 H Neutrophils % 54.2 Nucleated Red Blood Cells # 0.0 Nucleated Red Blood Cells % 0.1 H Platelet Count 396 Potassium Level 5.8 H Prothrombin Time 13.1 Prothrombin Time Ratio 1.0 Red Blood Count 4.47 L Red Cell Distribution Width 15.9 H Sodium Level 142 Troponin I 0.134 *H White Blood Count 17.1 H Arterial Blood HCO3 21.2 L 21.4 L Arterial Blood Base Excess -7.8 L -6.9 L Arterial Blood Oxygen Saturation 99.4 H 99.4 H Osiel Test ACCEPTAB ACCEPTAB Arterial Blood Gas Puncture Site Right Radial Right Radial Arterial Blood Carboxyhemoglobin 0.8 0.4 Arterial Blood Date Drawn 07/27/2016 9:33:32 PM 07/27/2016 10:18:09 PM Arterial Blood Methemoglobin 0.4 0.4 Arterial Blood pCO2 (Temp correct) 57.4 H 54.5 H Arterial Blood pH (Temp corrected) 7.185 *L 7.211 *L Arterial Blood pO2 (Temp corrected) 322.2 H 335.8 H Blood Gas A-a O2 Differential 333.4 H 322.7 H Blood Gas Actual Respiration Rate 18 22 Blood Gas Critical Value Read Back LOPEZ COX M.D., M.D. Blood Gas Modality VENT - AC VENT - AC Blood Gas Notified Time 07/27/2016 9:40:29 PM 07/27/2016 10:26:49 PM Blood Gas Notified Whom IVAN LOVE Blood Gas Respiration Rate 18.0 22.0 Blood Gas Specimen Source Blood arterial Blood arterial Blood Gas Temperature 37.0 37.0 Blood Gas Tidal Volume 550.0 550.0 FiO2 100.0 100.0 Oxyhemoglobin Percent 98.2 98.6 Total Hemoglobin 14.5 13.3 Bedside Glucose 332 H Test 07/28/16 05:17 07/28/16 05:50 07/28/16 07:00 07/28/16 08:30 Bedside Glucose 314 H 333 H Alanine Aminotransferase (ALT/SGPT) 124 H Albumin 3.9 Albumin/Globulin Ratio 1.05 Alkaline Phosphatase 127 H Anion Gap 21 #H Aspartate Amino Transf (AST/SGOT) 83 H Basophils # 0.0 Basophils % 0.1 Blood Morphology Comment Blood Urea Nitrogen 57 H Calcium Level 8.4 Carbon Dioxide Level 27 Chloride Level 98 Creatine Kinase 202 H Creatine Kinase Index 1.5 Creatinine 7.99 #H Creatinine Kinase MB (Mass) 3.00 H Direct Bilirubin 0.00 Eosinophils # 0.0 Eosinophils % 0.1 Globulin 3.70 H Glucose Level 326 H Hematocrit 38.3 L Hemoglobin 13.0 L Indirect Bilirubin 0.0 Lymphocytes # 0.4 L Lymphocytes % 3.7 L Mean Corpuscular Hemoglobin 32.0 Mean Corpuscular Hemoglobin Concent 33.9 Mean Corpuscular Volume 94.3 Mean Platelet Volume 8.6 Monocytes # 0.1 L Monocytes % 1.0 Neutrophils # 9.5 H Neutrophils % 95.1 H Nucleated Red Blood Cells # 0.0 Nucleated Red Blood Cells % 0.0 Platelet Count 255 # Potassium Level 5.4 H Red Blood Count 4.06 L Red Cell Distribution Width 16.5 H Sodium Level 141 Total Bilirubin 0.0 L Total Protein 7.6 Troponin I 0.221 *H White Blood Count 10.0 # Arterial Blood HCO3 27.7 H Arterial Blood Base Excess 3.0 Arterial Blood Oxygen Saturation 97.4 Osiel Test ACCEPTAB Arterial Blood Gas Puncture Site Right Brachial Arterial Blood Carboxyhemoglobin 0.4 Arterial Blood Date Drawn 07/28/2016 7:38:23 AM Arterial Blood Methemoglobin 0.2 Arterial Blood pCO2 (Temp correct) 42.6 Arterial Blood pH (Temp corrected) 7.431 Arterial Blood pO2 (Temp corrected) 91.9 Blood Gas A-a O2 Differential 289.0 H Blood Gas Actual Respiration Rate 24 Blood Gas Low PEEP Setting 5.0 Blood Gas Modality VENT - AC Blood Gas Notified Time 07/28/2016 7:51:47 AM Blood Gas Notified Whom TM Blood Gas Respiration Rate 24.0 Blood Gas Specimen Source Blood arterial Blood Gas Temperature 37.0 Blood Gas Tidal Volume 550.0 FiO2 60.0 Oxyhemoglobin Percent 96.8 Total Hemoglobin 13.5 Test 07/28/16 09:39 Creatine Kinase 207 H Creatine Kinase Index 1.4 Creatinine Kinase MB (Mass) 2.99 H Lactic Acid Level 2.3 H Troponin I 0.219 *H Medications Medications Current Medications Miscellaneous Information HOLD all METFORMIN ... ONCE XX ; Start 07/27/16 at 23: 00; Stop 07/29/16 at 22:59 Levetiracetam 500 mg/Sodium Chloride 105 ml @ 420 mls/hr Q12 IVPB Last administered on 07/28/16 08:21; Admin Dose 420 MLS/HR; Start 07/28/16 at 00:00 Norepinephrine 16 mg/Dextrose 500 ml @ 1.87 mls/hr TITRATE IV ; Start 07/28/16 at 04:00 Cefepime HCl (Maxipime 1gm/50 ml (Pmx)) 50 ml @ 100 mls/hr Q24H IVPB Last administered on 07/28/16 04:19; Admin Dose 100 MLS/HR; Start 07/28/16 at 01:00 Labetalol HCl 10 mg 10 mg Q6H PRN IV sbp > 160; Start 07/28/16 at 00:30 Propofol (Diprivan) 100 ml @ 3.609 mls/ hr Q12H PRN IV SEDATION Last administered on 07/28/16 08:38; Admin Dose 28.872 MLS/HR; Start 07/28/16 at 02: 30 Acetaminophen (Tylenol Supp) 650 mg Q6H PRN [place] PAIN AND OR ELEVATED TEMP Last administered on 07/28/16 09:58; Admin Dose 650 MG; Start 07/28/16 at 08:30 Miscellaneous Information 1 ea NOTE XX ; Start 07/28/16 at 09:00 Glucose (Glutose) 15 gm Q15M PRN PO DECREASED GLUCOSE; Start 07/28/16 at 09:00 Glucose (Glutose) 22.5 gm Q15M PRN PO DECREASED GLUCOSE; Start 07/28/16 at 09: 00 Dextrose (D50w Syringe) 25 ml Q15M PRN IV DECREASED GLUCOSE; Start 07/28/16 at 09:00 Dextrose (D50w Syringe) 50 ml Q15M PRN IV DECREASED GLUCOSE; Start 07/28/16 at 09:00 Glucagon (Glucagen) 1 mg Q15M PRN IM DECREASED GLUCOSE; Start 07/28/16 at 09:00 Glucose (Glutose) 15 gm Q15M PRN BUCCAL DECREASED GLUCOSE; Start 07/28/16 at 09 :00 Diagnostic Test (Pha) (Accucheck) 1 ea Q1H XX ; Start 07/28/16 at 10:00 Dextrose (D50w Syringe) 25 ml Q15M PRN IV Till BS 80 mg/dL or above x2; Start 07/28/16 at 10:00 Dextrose (D50w Syringe) 50 ml Q15M PRN IV Till BS 80 mg/dL or above x2; Start 07/28/16 at 10:00 BARNEY MCKEE Jul 28, 2016 15:04
[2016-07-28] MEDS: INSULIN REGULAR, HUMAN 100 UNIT in SOD CHLORIDE 0.9% 99 ML IV SCH ×2 (17:10)
--- NOTE | 2016-07-28 17:35 | RADRPT ---
PROCEDURE: US carotid arteries. CLINICAL INDICATION: Dizziness. Cardiac arrest. TECHNIQUE: Multiple sonographic images of the carotid arteries and vertebral arteries were obtaine d utilizing mccarthy scale, duplex, and color-flow imaging. The images were reviewed on a PACS workstati on. COMPARISON: No prior studies are available for comparison. FINDINGS: Evaluation of the right carotid bifurcation region reveals mild atherosclerotic disease. Evaluation of the left carotid bifurcation region reveals mild atherosclerotic disease. There is antegrade flow within the vertebral arteries bilaterally. RIGHT CAROTID MEASUREMENTS: Common Carotid [id number] (cm/sec) Internal Carotid Artery 68 (cm/sec) External Carotid Artery 107 (cm/sec) Vertebral Artery 56 (cm/sec) Internal Carotid/Common Carotid1.0 LEFT CAROTID MEASUREMENTS: Common Carotid [id number] (cm/sec) Internal Carotid Artery 78 (cm/sec) External Carotid Artery 123 (cm/sec) Vertebral Artery 72 (cm/sec) Internal Carotid/Common Carotid0.8 Validated velocity measurements with angiographic measurements. Velocity criteria are extrapolated f rom diameter data as defined by the Society of Radiologists in Ultrasound Consensus Conference. Radi ology 2003; 229;340-346. This study does indirectly reference the measurement of the distal ICA elizabeth meter as the denominator for stenosis measurement. IMPRESSION: 1. Less than 50% stenosis bilaterally in the internal carotid arteries. 2. Normal antegrade flow in the vertebral arteries bilaterally. RPTAT: QQ SRU Consensus Conference Criteria for the Diagnosis of Carotid Artery Stenosis* Degree of Stenosis, % ICA PSV, cm/sec Plaque Estimate, % ICA/CCA PSV Ratio Normal <125 None <2.0 <50 <125 <50 <2.0 50 69 125-230 >50 2.0-4.0 >70 but less than near occlusion >230 >50 <4.0 Near occlusion High, low, or undetectable Visible Variable Total occlusion Undetectable Visible, no detectable lumen Not applicable *Cartoid artery stenosis: mccarthy-scale and Doppler US diagnosis. Society of Radiologists in Ultrasound Consensus Conference. Radiology 2003; 229: 340-346 .Otoniel Melo MD, Date Time Electronically viewed and signed by .Otoniel Melo MD, on 07/28/2016 17:35 .R/
[2016-07-29] VITALS (113 sets, daily range): BP systolic 67–168; BP diastolic 34–89; PULSE 91–112; RESP 19–28
[2016-07-29] MEDS: ACCUCHECK XX SCH ×24 (01:00→23:00)
[2016-07-29] MEDS: IPRATROPIUM (HFA) 12.9 GM INHALER INH SCH ×6 (01:31→21:05)
[2016-07-29] MEDS: ALBUTEROL HFA 8 GM INHALER INH SCH ×6 (01:31→21:05)
[2016-07-29] MEDS: PROPOFOL 100 ML IV PRN ×4 (02:17→18:29)
[2016-07-29] MEDS: ACETAMINOPHEN 650 MG SUPP PR PRN (03:05)
[2016-07-29] MEDS: CEFEPIME 1GM/50 ML (PMX) 50 ML IVPB SCH (05:11)
[2016-07-29] MEDS: INSULIN REGULAR, HUMAN 100 UNIT in SOD CHLORIDE 0.9% 99 ML IV SCH ×2 (07:00)
[2016-07-29 07:22] LABS: NEUTROPHILS % 76.2 % (39.0-77.0)
[2016-07-29 07:35] LABS: POTASSIUM 4.5 mmol/L (3.5-5.1)
[2016-07-29 07:36] LABS: ALBUMIN 3.5 g/dl (3.3-4.9)
[2016-07-29 07:37] LABS: ALBUMIN/GLOBULIN RATIO 0.89; BILIRUBIN,INDIRECT 0.2 mg/dl (0-1.1); BILIRUBIN,TOTAL 0.2 mg/dl (0.2-1.3); CALCIUM 8.1 mg/dl (8.4-10.2); CREATININE 8.04 mg/dl (0.61-1.24); TOTAL PROTEIN 7.4 g/dl (6.1-8.1)
[2016-07-29 07:48] LABS: CONDITION 1; LH ANALYZER COMMENTS 1
[2016-07-29] MEDS: LEVETIRACETAM IV 500 MG in SOD CHLORIDE 0.9% 100 ML IVPB SCH (08:47)
--- NOTE | 2016-07-29 09:26 | RADRPT ---
PROCEDURE: XR Chest. CLINICAL INDICATION: Pneumonia, CHF TECHNIQUE: An AP view of the chest was obtained. COMPARISON: Chest x-ray dated 07/28/2016 FINDINGS: The endotracheal tube tip is approximately 5.6 cm above the chino. The tip of the enteric tube ex tends below the left diaphragm. There is prominence of the interstitial markings. There are right lower lobe interstitial opacities . No pleural effusion or pneumothorax is seen. The cardiomediastinal silhouette is mildly enlarged . Calcifications are seen within the aortic arch. The osseous structures demonstrate senescent courtney nges. IMPRESSION: 1. Mild prominence of the interstitial markings, may reflect mild underlying interstitial edema or chronic lung changes. There are right lower lobe interstitial opacities, increased when compared to the prior examination, and may reflect interstitial edema or pneumonia. 2. Mild cardiomegaly and aortic atherosclerosis. 3. Tubes and lines, as described above. RPTAT: HH .Mona Paredes MD, MD Date Time Electronically viewed and signed by .Mona Paredes MD, on 07/29/2016 09:26 .G/
--- NOTE | 2016-07-29 09:54 | PN ---
Date/Time of Note Date/Time of Note DATE: 07/29/16 TIME: 09:40 Assessment/Plan VTE Prophylaxis VTE Prophylaxis Intervention: SCD's Lines/Catheters IV C[facility]ter Type (from [facility] Peripheral IV Urinary Cath still in place: Yes Reason Cath still needed: urinary retention Assessment/Plan Chief Complaint/Hosp Course A/P: 56 M with: 1. PEA s/p cardiac arrest with ROSC - Etiology of PEA likely 2/[address] Brain shows no CVA or signs of anoxic injury. LHC - negative for coronary artery disease - continue ICU care, continue telemetry monitoring, - f/u cardio recs, Neuro rec's (EEG pending) - f/u ECHO, carotid duplex - Keppra IV 2. ESRD on HD - dialysis now, and prn as per nephrology 3. SIRS with elevated white count and fever-likely reactive vs PNA - WBC trending down slowly - cont cefepime/vanc for now but consider DC of ABx soon if no further e/o SIRS - f/u final cx results 4. VDRF -pulm consult appreciated, - wean off of vent as tolerated, - prn breathing treatments, - f/u pulm rec's 5. Hypotension - cardiac shock vs septic shock - continue with pressor support, wean off as tolerated. 6. CHF - acute - diastolic vs systolic dysfunction - fluid to be removed via dialysis - monitor I/O's 7. Metabolic with respiratory acidosis - 2/2 to cardiac arrest - s/p bicarb - - f/u labs - adjust vent and bicarb drip if low pH 8. Essential hypertension - hold medications as patient is hypotensive 9. Type II DM - uncontrolled, check Hgba1c, ISS, lantus 10. Asthma - currently on vent, continue with breathing treatments 11. Smoking abuse - patient will be counseled on cessation once extubated 12. Obesity - consider nutrition consult once extubated 13. GI ppx - protonix 14. DVT ppx - heparin critical care time spent on pt care today = 45 min. Problems: Subjective 24 Hr Interval Summary Free Text/Dictation Pt intubated, seen by neuro, renal, pulm teams yesterday. Exam/Review of Systems Vital Signs Vitals Vital Signs Date Time Temp Pulse Resp B/P Pulse Ox O2 Delivery O2 Flow Rate FiO2 07/29/16 07:30 106 24 96 35 07/29/16 06:30 154/71 Mechanical Ventilator 07/29/16 05:00 100.7 Intake and Output 07/28/16 07/28/16 07/29/16 15:00 23:00 07:00 Intake Total 338.979 ml 875.597 ml 355.53 ml Output Total 220 ml 5550 ml 48 ml Balance 118.979 ml -4674.403 ml 307.53 ml Exam Constitutional: non-verbal ENMT: intubated Respiratory: clear to auscultation Cardiovascular: regular rate and rhythm Gastrointestinal: soft, No distended Musculoskeletal: nl extremities to inspection Results Result Diagram: 07/29/16 0550 07/29/16 0550 Results 24 hrs Laboratory Tests Test 07/28/16 16:58 07/28/16 19:04 07/28/16 19:56 07/28/16 21:20 Bedside Glucose 229 H 244 H 223 H 238 H Test 07/28/16 22:14 07/28/16 23:05 07/29/16 00:21 07/29/16 01:35 Bedside Glucose 191 186 188 208 Test 07/29/16 02:15 07/29/16 03:10 07/29/16 05:03 07/29/16 05:50 Bedside Glucose 171 190 206 Alanine Aminotransferase (ALT/SGPT) 81 H Albumin 3.5 Albumin/Globulin Ratio 0.89 Alkaline Phosphatase 94 Anion Gap 20 H Aspartate Amino Transf (AST/SGOT) 51 H Basophils # Pending Basophils % Pending Blood Morphology Comment Blood Urea Nitrogen 49 H Calcium Level 8.1 L Carbon Dioxide Level 26 Chloride Level 98 Creatinine 8.04 H Direct Bilirubin 0.00 Eosinophils # Pending Eosinophils % Pending Globulin 3.90 H Glucose Level 205 # Hematocrit 27.7 #L Hemoglobin 9.7 #L Indirect Bilirubin 0.2 Lymphocytes # Pending Lymphocytes % Pending Magnesium Level 2.2 Mean Corpuscular Hemoglobin 32.6 Mean Corpuscular Hemoglobin Concent 34.9 Mean Corpuscular Volume 93.5 Mean Platelet Volume 8.8 Monocytes # Pending Monocytes % Pending Neutrophils # Pending Neutrophils % Pending Nucleated Red Blood Cells # Pending Nucleated Red Blood Cells % Pending Platelet Count Pending Potassium Level 4.5 Red Blood Count 2.97 #L Red Cell Distribution Width 16.3 H Sodium Level 139 Total Bilirubin 0.2 Total Protein 7.4 White Blood Count 9.0 Test 07/29/16 06:02 07/29/16 07:09 07/29/16 07:56 07/29/16 08:56 Bedside Glucose 215 215 204 207 Medications Medications Current Medications Miscellaneous Information HOLD all METFORMIN ... ONCE XX Last administered on 23:00; Admin Dose 1 EA; Start 07/27/16 at 23:00; Stop 07/29/16 at 22:59 Levetiracetam 500 mg/Sodium Chloride 105 ml @ 420 mls/hr Q12 IVPB Last administered on 07/29/16 08:47; Admin Dose 420 MLS/HR; Start 07/28/16 at 00:00 Norepinephrine 16 mg/Dextrose 500 ml @ 1.87 mls/hr TITRATE IV Last administered on 07/28/16 21:18; Admin Dose 11.25 MLS/HR; Start 07/28/16 at 04: 00 Cefepime HCl (Maxipime 1gm/50 ml (Pmx)) 50 ml @ 100 mls/hr Q24H IVPB Last administered on 07/29/16 05:11; Admin Dose 100 MLS/HR; Start 07/28/16 at 01:00 Labetalol HCl 10 mg 10 mg Q6H PRN IV sbp > 160; Start 07/28/16 at 00:30 Propofol (Diprivan) 100 ml @ 3.609 mls/ hr Q12H PRN IV SEDATION Last administered on 07/29/16 08:17; Admin Dose 14.436 MLS/HR; Start 07/28/16 at 02: 30 Acetaminophen (Tylenol Supp) 650 mg Q6H PRN [place] PAIN AND OR ELEVATED TEMP Last administered on 07/29/16 03:05; Admin Dose 650 MG; Start 07/28/16 at 08:30 Miscellaneous Information 1 ea NOTE XX ; Start 07/28/16 at 09:00 Glucose (Glutose) 15 gm Q15M PRN PO DECREASED GLUCOSE; Start 07/28/16 at 09:00 Glucose (Glutose) 22.5 gm Q15M PRN PO DECREASED GLUCOSE; Start 07/28/16 at 09: 00 Dextrose (D50w Syringe) 25 ml Q15M PRN IV DECREASED GLUCOSE; Start 07/28/16 at 09:00 Dextrose (D50w Syringe) 50 ml Q15M PRN IV DECREASED GLUCOSE; Start 07/28/16 at 09:00 Glucagon (Glucagen) 1 mg Q15M PRN IM DECREASED GLUCOSE; Start 07/28/16 at 09:00 Glucose (Glutose) 15 gm Q15M PRN BUCCAL DECREASED GLUCOSE; Start 07/28/16 at 09 :00 Diagnostic Test (Pha) (Accucheck) 1 ea Q1H XX Last administered on 07/29/16t 07 :00; Admin Dose 1 EA; Start 07/28/16 at 10:00 Dextrose (D50w Syringe) 25 ml Q15M PRN IV Till BS 80 mg/dL or above x2; Start 07/28/16 at 10:00 Dextrose (D50w Syringe) 50 ml Q15M PRN IV Till BS 80 mg/dL or above x2; Start 07/28/16 at 10:00 CAPRI CHAPA Jul 29, 2016 09:53
[2016-07-29 10:41] LABS: AADO2 Arterial 129.2 mmHg (7.0-24.0); Allen Test ACCEPTAB; Arterial Base Excess 2.1 mmol/L (-3.0-3); Arterial COHb 0.3 % (0.0-3.0); Arterial Fraction of Oxyhgb 93.8 % (93.0-99.0); Arterial HCO3 26.7 mmol/L (22.0-26.0); Arterial MetHb 0.2 % (0.0-1.5); Arterial Total Hemglobin 13.2 g/dl (12.0-18.0); MODE VENT - AC
--- NOTE | 2016-07-29 11:07 | CONS ---
Date/Time of Note Date/Time of Note DATE: 07/29/16 TIME: 11:05 Consult Date/Type/Reason Admit Date/Time Jul 27, 2016 at 23:29 Initial Consult Date 07/28/16 Type of Consultation: Pulmonary Ordering Provider: JAVED PIERCE MD, [facility] Subjective Patient remains minimally responsive on mechanical ventilation According to family he squeezing hands Currently remains intubated and sedated Objective Vital Signs Date Time Temp Pulse Resp B/P Pulse Ox O2 Delivery O2 Flow Rate FiO2 07/29/16 10:10 110 24 100 35 07/29/16 06:30 154/71 Mechanical Ventilator 07/29/16 05:00 100.7 Intake and Output 07/28/16 07/28/16 07/29/16 15:00 23:00 07:00 Intake Total 338.979 ml 875.597 ml 355.53 ml Output Total 220 ml 5550 ml 48 ml Balance 118.979 ml -4674.403 ml 307.53 ml PHYSICAL EXAMINATION: GENERAL: Chronically ill appearing gentleman, intubated on mechanical ventilation, somnolent. VITAL SIGNS: As above NECK: Supple. No JVD or lymphadenopathy. CARDIAC: S1, S2, no added sounds or murmurs. CHEST: Diminished air entry bilaterally. ABDOMEN: Soft, nontender. No guarding, no rebound, obese. EXTREMITIES: No cyanosis, clubbing or edema. NEUROLOGIC: Generalized weakness. Results/Medications Result Diagram: 07/29/16 0550 07/29/16 0550 Results 24 hrs Laboratory Tests Test 07/28/16 16:58 07/28/16 19:04 07/28/16 19:56 07/28/16 21:20 Bedside Glucose 229 H 244 H 223 H 238 H Test 07/28/16 22:14 07/28/16 23:05 07/29/16 00:21 07/29/16 01:35 Bedside Glucose 191 186 188 208 Test 07/29/16 02:15 07/29/16 03:10 07/29/16 05:03 07/29/16 05:50 Bedside Glucose 171 190 206 Alanine Aminotransferase (ALT/SGPT) 81 H Albumin 3.5 Albumin/Globulin Ratio 0.89 Alkaline Phosphatase 94 Anion Gap 20 H Aspartate Amino Transf (AST/SGOT) 51 H Basophils # Pending Basophils % Pending Blood Morphology Comment Blood Urea Nitrogen 49 H Calcium Level 8.1 L Carbon Dioxide Level 26 Chloride Level 98 Creatinine 8.04 H Direct Bilirubin 0.00 Eosinophils # Pending Eosinophils % Pending Globulin 3.90 H Glucose Level 205 # Hematocrit 27.7 #L Hemoglobin 9.7 #L Indirect Bilirubin 0.2 Lymphocytes # Pending Lymphocytes % Pending Magnesium Level 2.2 Mean Corpuscular Hemoglobin 32.6 Mean Corpuscular Hemoglobin Concent 34.9 Mean Corpuscular Volume 93.5 Mean Platelet Volume 8.8 Monocytes # Pending Monocytes % Pending Neutrophils # Pending Neutrophils % Pending Nucleated Red Blood Cells # Pending Nucleated Red Blood Cells % Pending Platelet Count Pending Potassium Level 4.5 Red Blood Count 2.97 #L Red Cell Distribution Width 16.3 H Sodium Level 139 Total Bilirubin 0.2 Total Protein 7.4 White Blood Count 9.0 Test 07/29/16 06:02 07/29/16 07:00 07/29/16 07:09 07/29/16 07:56 Bedside Glucose 215 215 204 Arterial Blood HCO3 26.7 H Arterial Blood Base Excess 2.1 Arterial Blood Oxygen Saturation 94.3 L Osiel Test ACCEPTAB Arterial Blood Gas Puncture Site Right Radial Arterial Blood Carboxyhemoglobin 0.3 Arterial Blood Date Drawn 07/29/2016 8:12:42 AM Arterial Blood Methemoglobin 0.2 Arterial Blood pCO2 (Temp correct) 41.7 Arterial Blood pH (Temp corrected) 7.424 Arterial Blood pO2 (Temp corrected) 71.9 L Blood Gas A-a O2 Differential 129.2 H Blood Gas Actual Respiration Rate 24 Blood Gas Low PEEP Setting 5.0 Blood Gas Modality VENT - AC Blood Gas Notified Time 07/29/2016 8:30:32 AM Blood Gas Notified Whom TM Blood Gas Respiration Rate 24.0 Blood Gas Specimen Source Blood arterial Blood Gas Temperature 37.0 Blood Gas Tidal Volume 550.0 FiO2 35.0 Oxyhemoglobin Percent 93.8 Total Hemoglobin 13.2 Test 07/29/16 08:56 07/29/16 10:13 Bedside Glucose 207 188 Medications Current Medications Miscellaneous Information HOLD all METFORMIN ... ONCE XX Last administered on t 23:00; Admin Dose 1 EA; Start 07/27/16 at 23:00; Stop 07/29/16 at 22:59 Levetiracetam 500 mg/Sodium Chloride 105 ml @ 420 mls/hr Q12 IVPB Last administered on 07/29/16 08:47; Admin Dose 420 MLS/HR; Start 07/28/16 at 00:00 Norepinephrine 16 mg/Dextrose 500 ml @ 1.87 mls/hr TITRATE IV Last administered on 07/28/16 21:18; Admin Dose 11.25 MLS/HR; Start 07/28/16 at 04: 00 Cefepime HCl (Maxipime 1gm/50 ml (Pmx)) 50 ml @ 100 mls/hr Q24H IVPB Last administered on 07/29/16 05:11; Admin Dose 100 MLS/HR; Start 07/28/16 at 01:00 Labetalol HCl 10 mg 10 mg Q6H PRN IV sbp > 160; Start 07/28/16 at 00:30 Propofol (Diprivan) 100 ml @ 3.609 mls/ hr Q12H PRN IV SEDATION Last administered on 07/29/16 08:17; Admin Dose 14.436 MLS/HR; Start 07/28/16 at 02: 30 Acetaminophen (Tylenol Supp) 650 mg Q6H PRN [place] PAIN AND OR ELEVATED TEMP Last administered on 07/29/16 03:05; Admin Dose 650 MG; Start 07/28/16 at 08:30 Miscellaneous Information 1 ea NOTE XX ; Start 07/28/16 at 09:00 Glucose (Glutose) 15 gm Q15M PRN PO DECREASED GLUCOSE; Start 07/28/16 at 09:00 Glucose (Glutose) 22.5 gm Q15M PRN PO DECREASED GLUCOSE; Start 07/28/16 at 09: 00 Dextrose (D50w Syringe) 25 ml Q15M PRN IV DECREASED GLUCOSE; Start 07/28/16 at 09:00 Dextrose (D50w Syringe) 50 ml Q15M PRN IV DECREASED GLUCOSE; Start 07/28/16 at 09:00 Glucagon (Glucagen) 1 mg Q15M PRN IM DECREASED GLUCOSE; Start 07/28/16 at 09:00 Glucose (Glutose) 15 gm Q15M PRN BUCCAL DECREASED GLUCOSE; Start 07/28/16 at 09 :00 Diagnostic Test (Pha) (Accucheck) 1 ea Q1H XX Last administered on 07/29/16 07 :00; Admin Dose 1 EA; Start 07/28/16 at 10:00 Dextrose (D50w Syringe) 25 ml Q15M PRN IV Till BS 80 mg/dL or above x2; Start 07/28/16 at 10:00 Dextrose (D50w Syringe) 50 ml Q15M PRN IV Till BS 80 mg/dL or above x2; Start 07/28/16 at 10:00 Assessment/Plan Chief Complaint/Hosp Course IMPRESSION AND PLAN: 1. Cardiopulmonary arrest. 2. 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 3. End-stage renal failure. 4. No evidence of occlusive lesions on cardiac catheterization. The patient will require: 1. Continued mechanical ventilation. 2. Neurology evaluation. 3. EEG. 4. Continue antiepileptics. 5. MRI of brain when stable. 6. Continue hemodialysis with correction of electrolytes. 7. Consider discussed with family at bedside palliative care consult as prognosis is poor. 8. Continue antibiotics for possible aspiration pneumonia. Discussed with family at bedside Problems: JAVED PIERCE MD, [facility] Jul 29, 2016 11:07
[2016-07-29 13:38] LABS: BASOPHILS % 0.3 % (0.0-2.0); EOSINOPHILS # 0.1 10^3/ul (0.0-0.5); EOSINOPHILS % 1.1 % (0.0-7.0); LYMPHOCYTES # 1.8 10^3/ul (0.8-2.9); LYMPHOCYTES % 14.1 % (15.0-51.0); MONOCYTES % 8.3 % (0.0-11.0); NEUTROPHIL # 9.5 10^3/ul (1.6-7.5)
[2016-07-29 13:47] LABS: PLATELET COUNT 222 10^3/UL (140-440)
[2016-07-29 13:53] LABS: HEMOGLOBIN 11.9 g/dl (14.0-18.0); RED BLOOD COUNT 3.74 10^6/ul (4.70-6.10); UNCORRECTED WBC 12.4 10^3/ul (4.8-10.8); WHITE BLOOD COUNT 12.4 10^3/ul (4.8-10.8)
[2016-07-29 13:54] LABS: HEMATOCRIT 35.1 % (42.0-52.0); MEAN CORPUSCULAR HEMOGLOBIN 31.8 pg (29.0-33.0); MEAN CORPUSCULAR HGB CONC 33.9 g/dl (32.0-37.0); MEAN CORPUSCULAR VOLUME 93.9 fl (82.0-101.0); RED CELL DISTRIBUTION WIDTH 17.1 % (11.5-14.5)
[2016-07-29 13:55] LABS: MEAN PLATELET VOLUME 8.6 fl (7.4-10.4)
--- NOTE | 2016-07-29 14:37 | CONS ---
DATE OF ADMISSION: 07/27/2016 DATE OF CONSULTATION: 07/29/2016 PALLIATIVE CARE CONSULTATION HISTORY OF PRESENT ILLNESS: This is a 56-year-old gentleman who was brought to the emergency room a [facility] status post PEA, witnessed. He had spontaneous with ROSC, remains in the ICU, intubated. He is critically ill, although he is not on pressors at this time. He is rece iving hemodialysis and being seen by infectious disease, on broad spectrum IV antibiotic coverage, fatuma reid seen by pulmonary medicine, critical care, addressing all his acute issues as related to his pu lmonary consult and coordination of the intensive care unit team. Being seen also by Dr. Rogerio Daniel, who is essentially the quarterback for the patient's management in the intensive care unit. T his gentleman's baseline prior to hospitalization, he had end-stage renal disease, on hemodialysis, a history of acute diastolic and systolic congestive heart failure, type 2 diabetes, morbid obesity, and a history of smoking, although it is not clear whether or not he had continued to smoke prior t o this hospitalization. SOCIAL HISTORY: He lives with family. It is documented in the patient's chart that he is a current smoker. No alcohol or drug use. FAMILY HISTORY: Unknown. REVIEW OF SYSTEMS: Cannot be obtained. A family conference was done with the patient's daughter and at the bedside. I outlined all hi s current acute clinical medical problems and the current severity of his medical condition. I also covered some of his previous admission hospital issues, including end-stage renal disease, on dialys is. The family is understandably traumatized at this time. The daughter had many questions in so f ar as the respirator, antibiotic coverage, his cardiac condition and overall prognosis, which I did not address. I did emphasize that her father is critically ill and there will be no mention of extu bation until he stabilizes. What is unclear at this time also is whether or not the patient sustaine d any neurological damage. I explained to the family that we are still in a cooling pattern to see whether or not he does any purposeful movement. Will follow closely. Dictated By: ANGELIKA BELLE MD, LP/BATSHEVA Conf#: [id number] DID#: [id number]
--- NOTE | 2016-07-29 15:48 | SP ---
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 EEG is to rule out seizure activity. CURRENT MEDICATIONS: 1. Norepinephrine. 2. Labetalol. 3. Keppra. 4. Cefepime. PROCEDURE: Utilizing a 16-channel EEG machine, cap scalp electrodes were applied in accordance with the International 10/20 system. [id number] and [id number] montages were displayed. Electric al impedances were measured and reported. DESCRIPTION: During the resting state a clear posterior dominant rhythm was not seen, but a suppre ssion pattern was seen throughout the tracing. Photic stimulation and hypoventilation was not perfo rmed. INTERPRETATION: This is an abnormal EEG because of the presence of burst suppression pattern throug hout the tracing, which is severely encephalopathic, with epileptiform activity. Please correlate t hese findings with the patient's clinical picture. Dictated By: DANIEL GREGG/BATSHEVA Conf#: [id number] DID#: [id number]
--- NOTE | 2016-07-29 16:10 | CONS ---
Date/Time of Note Date/Time of Note DATE: 07/29/16 TIME: 16:04 Assessment/Plan Assessment/Plan Chief Complaint/Hosp Course PEA Problems: Additional Assessment/Plan 56 year old M with hx of ESRD, HTN, DM, Asthma began experiencing SOB suffered PEA arrest with ROSC for 20 mins, STEMI s/p cardiac catheterization with no intervention with possible seizure activity vs. post anoxic myoclonus. EEG showed burst suppression pattern suggesting severe encephalopathy with seizure activity. CT brain showed nothing acute. Examination showed positive corneals, pupillary reflexes and gag reflex. PLAN: -Increase Keppra 1000 mg q12h -on propofol held, -continue neurologic exams off sedation -prognosis poor -will follow Consultation Date/Type/Reason Admit Date/Time Jul 27, 2016 at 23:29 Initial Consult Date 07/28/16 Type of Consultation: Pulmonary Referring Provider: JAVED PIERCE MD, [facility] 24 HR Interval Summary Free Text/Dictation Clinically unchanged. Still has myoclonic activity when sedation is reduced. Exam/Review of Systems Vital Signs Vitals Vital Signs Date Time Temp Pulse Resp B/P Pulse Ox O2 Delivery O2 Flow Rate FiO2 07/29/16 15:39 105 24 07/29/16 14:15 105/60 96 07/29/16 14:00 Mechanical Ventilator 07/29/16 13:35 35 07/29/16 12:00 100.7 Intake and Output 07/28/16 07/28/16 07/29/16 15:00 23:00 07:00 Intake Total 338.979 ml 875.597 ml 355.53 ml Output Total 220 ml 5550 ml 48 ml Balance 118.979 ml -4674.403 ml 307.53 ml Exam Constitutional: other (comatose) Head: atraumatic, normocephalic Eyes: EOMI, nl conjunctiva, nl lids ENMT: mucosa pink and moist, nl external ears & nose, nl lips & teeth, nl nasal mucosa & septum Neck: non-tender, supple Respiratory: clear to auscultation, normal air movement Cardiovascular: nl pulses, regular rate and rhythm Gastrointestinal: soft Extremities: normal pulses Neurological: other (comatose, sedated, corneal, gag and pupillary reflexes are present, no withdrawl to noxious stimuli) Skin: nl turgor Lymph: nl lymph nodes Results Result Diagram: 07/29/16 0550 07/29/16 0550 Results 24 hrs Laboratory Tests Test 07/28/16 16:58 07/28/16 19:04 07/28/16 19:56 07/28/16 21:20 Bedside Glucose 229 H 244 H 223 H 238 H Test 07/28/16 22:14 07/28/16 23:05 07/29/16 00:21 07/29/16 01:35 Bedside Glucose 191 186 188 208 Test 07/29/16 02:15 07/29/16 03:10 07/29/16 05:03 07/29/16 05:50 Bedside Glucose 171 190 206 Alanine Aminotransferase (ALT/SGPT) 81 H Albumin 3.5 Albumin/Globulin Ratio 0.89 Alkaline Phosphatase 94 Anion Gap 20 H Aspartate Amino Transf (AST/SGOT) 51 H Basophils # 0.0 Basophils % 0.3 Blood Morphology Comment Blood Urea Nitrogen 49 H Calcium Level 8.1 L Carbon Dioxide Level 26 Chloride Level 98 Creatinine 8.04 H Direct Bilirubin 0.00 Eosinophils # 0.1 Eosinophils % 1.1 Globulin 3.90 H Glucose Level 205 # Hematocrit 35.1 L Hemoglobin 11.9 L Indirect Bilirubin 0.2 Lymphocytes # 1.8 Lymphocytes % 14.1 L Magnesium Level 2.2 Mean Corpuscular Hemoglobin 31.8 Mean Corpuscular Hemoglobin Concent 33.9 Mean Corpuscular Volume 93.9 Mean Platelet Volume 8.6 Monocytes # 1.0 H Monocytes % 8.3 Neutrophils # 9.5 H Neutrophils % 76.2 Nucleated Red Blood Cells # 0.0 Nucleated Red Blood Cells % 0.0 Platelet Count 222 Potassium Level 4.5 Red Blood Count 3.74 L Red Cell Distribution Width 17.1 H Sodium Level 139 Total Bilirubin 0.2 Total Protein 7.4 White Blood Count 12.4 #H Test 07/29/16 06:02 07/29/16 07:00 07/29/16 07:09 07/29/16 07:56 Bedside Glucose 215 215 204 Arterial Blood HCO3 26.7 H Arterial Blood Base Excess 2.1 Arterial Blood Oxygen Saturation 94.3 L Osiel Test ACCEPTAB Arterial Blood Gas Puncture Site Right Radial Arterial Blood Carboxyhemoglobin 0.3 Arterial Blood Date Drawn 07/29/2016 8:12:42 AM Arterial Blood Methemoglobin 0.2 Arterial Blood pCO2 (Temp correct) 41.7 Arterial Blood pH (Temp corrected) 7.424 Arterial Blood pO2 (Temp corrected) 71.9 L Blood Gas A-a O2 Differential 129.2 H Blood Gas Actual Respiration Rate 24 Blood Gas Low PEEP Setting 5.0 Blood Gas Modality VENT - AC Blood Gas Notified Time 07/29/2016 8:30:32 AM Blood Gas Notified Whom TM Blood Gas Respiration Rate 24.0 Blood Gas Specimen Source Blood arterial Blood Gas Temperature 37.0 Blood Gas Tidal Volume 550.0 FiO2 35.0 Oxyhemoglobin Percent 93.8 Total Hemoglobin 13.2 Test 07/29/16 08:56 07/29/16 10:13 07/29/16 10:59 07/29/16 11:44 Bedside Glucose 207 188 185 Hemoglobin A1c 7.3 H Test 07/29/16 12:06 07/29/16 13:07 07/29/16 13:54 07/29/16 15:22 Bedside Glucose 186 186 172 163 Medications Medications Current Medications Miscellaneous Information HOLD all METFORMIN ... ONCE XX Last administered on 23:00; Admin Dose 1 EA; Start 07/27/16 at 23:00; Stop 07/29/16 at 22:59 Levetiracetam 500 mg/Sodium Chloride 105 ml @ 420 mls/hr Q12 IVPB Last administered on 07/29/16 08:47; Admin Dose 420 MLS/HR; Start 07/28/16 at 00:00 Norepinephrine 16 mg/Dextrose 500 ml @ 1.87 mls/hr TITRATE IV Last administered on 07/28/16 21:18; Admin Dose 11.25 MLS/HR; Start 07/28/16 at 04: 00 Cefepime HCl (Maxipime 1gm/50 ml (Pmx)) 50 ml @ 100 mls/hr Q24H IVPB Last administered on 07/29/16 05:11; Admin Dose 100 MLS/HR; Start 07/28/16 at 01:00 Labetalol HCl 10 mg 10 mg Q6H PRN IV sbp > 160; Start 07/28/16 at 00:30 Propofol (Diprivan) 100 ml @ 3.609 mls/ hr Q12H PRN IV SEDATION Last administered on 07/29/16 14:34; Admin Dose 21.654 MLS/HR; Start 07/28/16 at 02: 30 Acetaminophen (Tylenol Supp) 650 mg Q6H PRN [place] PAIN AND OR ELEVATED TEMP Last administered on 07/29/16 03:05; Admin Dose 650 MG; Start 07/28/16 at 08:30 Miscellaneous Information 1 ea NOTE XX ; Start 07/28/16 at 09:00 Glucose (Glutose) 15 gm Q15M PRN PO DECREASED GLUCOSE; Start 07/28/16 at 09:00 Glucose (Glutose) 22.5 gm Q15M PRN PO DECREASED GLUCOSE; Start 07/28/16 at 09: 00 Dextrose (D50w Syringe) 25 ml Q15M PRN IV DECREASED GLUCOSE; Start 07/28/16 at 09:00 Dextrose (D50w Syringe) 50 ml Q15M PRN IV DECREASED GLUCOSE; Start 07/28/16 at 09:00 Glucagon (Glucagen) 1 mg Q15M PRN IM DECREASED GLUCOSE; Start 07/28/16 at 09:00 Glucose (Glutose) 15 gm Q15M PRN BUCCAL DECREASED GLUCOSE; Start 07/28/16 at 09 :00 Diagnostic Test (Pha) (Accucheck) 1 ea Q1H XX Last administered on 07/29/16 07 :00; Admin Dose 1 EA; Start 07/28/16 at 10:00 Dextrose (D50w Syringe) 25 ml Q15M PRN IV Till BS 80 mg/dL or above x2; Start 07/28/16 at 10:00 Dextrose (D50w Syringe) 50 ml Q15M PRN IV Till BS 80 mg/dL or above x2; Start 07/28/16 at 10:00 Miscellaneous Information (*Rx Drug Level Order Reminder*) 1 ONCE ONCE XX ; Start 07/30/16 at 05:00; Stop 07/30/16 at 05:01 Procedures Procedures 07/28/16 CT brain IMPRESSION: 1. No evidence of acute intracranial pathology. 2. Mild generalized volume loss, with minimal chronic small vessel ischemic changes. RPTAT: VV .Richard Lennon MD, MD Date Time Electronically viewed and signed by .Richard Lennon MDMD on 07/28/2016 12:01 DANIEL KENNEDY MD Jul 29, 2016 16:10
[2016-07-29] MEDS ORDERED: SOD CHLORIDE 0.9% 100 ML ONE (17:13)
--- NOTE | 2016-07-29 18:14 | RADRPT ---
PROCEDURE: Ultrasound guidance for placement of needle in right upper extremity vein. CLINICAL INDICATION: Venous access. TECHNIQUE: Limited sonography of the right upper extremity was performed. Ultrasound images were recorded and stored in the patient's medical record. COMPARISON: None. FINDINGS: The ultrasound images demonstrate a patent right upper extremity vein. The PICC line was inserted b y the PICC line nurse. IMPRESSION: 1. Ultrasound guidance for a needle placement in a right upper extremity vein. 2. The visualized right upper extremity vein is patent. RPTAT: QQ .Otoniel Melo MD, MD Date Time Electronically viewed and signed by .Otoniel Melo MD, MD on 07/29/2016 18:13 .R/
--- NOTE | 2016-07-29 18:16 | RADRPT ---
PROCEDURE: XR Chest. CLINICAL INDICATION: Check PICC line position. TECHNIQUE: Single frontal view. COMPARISON: Prior study done earlier the same day. FINDINGS: There is a right arm PICC line with the tip in the lower superior vena cava. The endotracheal tube and nasogastric tube remain in satisfactory position. Pulmonary edema and possible right basilar pn eumonia are unchanged. The lungs are otherwise clear. The heart is mildly enlarged. There is no pleural effusion or pneumothorax. There are old healed right rib fractures. IMPRESSION: 1. Satisfactory position of right arm PICC line. 2. No other change from prior study done earlier the same day. RPTAT: QQ .Otoniel Melo MD, MD Date Time Electronically viewed and signed by .Otoniel Melo MD, on 07/29/2016 18:15 .R/
[2016-07-29] MEDS: LEVETIRACETAM IV 1,000 MG in SOD CHLORIDE 0.9% 100 ML IVPB SCH (20:55)
--- NOTE | 2016-07-29 21:34 | CONS ---
Date/Time of Note Date/Time of Note DATE: 07/29/16 TIME: 21:29 Assessment/Plan Assessment/Plan Chief Complaint/Hosp Course Assessment: Status post cardiac arrest - suspect secondary to hypoxia Hypotension Possible anoxic brain injury with seizure activity End-stage renal disease - on hemodialysis Recommendations: -coronary angiography without significant coronary artery disease -echocardiogram showed LVEF 60% -continue Levophed, wean as tolerated -follow up neurology recommendations Problems: Consultation Date/Type/Reason Admit Date/Time Jul 27, 2016 at 23:29 Initial Consult Date 07/28/16 Type of Consultation: Cardiology 24 HR Interval Summary Free Text/Dictation Remains intubated and on mechanical ventilation. On low dose Levophed. Detailed Summary Additional Comments Unable to obtain, patient is intubated. Exam/Review of Systems Vital Signs Vitals Vital Signs Date Time Temp Pulse Resp B/P Pulse Ox O2 Delivery O2 Flow Rate FiO2 07/29/16 21:08 101 24 97 35 07/29/16 20:30 109/56 Mechanical Ventilator 07/29/16 20:00 99.0 Intake and Output 07/28/16 07/28/16 07/29/16 15:00 23:00 07:00 Intake Total 338.979 ml 875.597 ml 355.53 ml Output Total 220 ml 5550 ml 48 ml Balance 118.979 ml -4674.403 ml 307.53 ml Exam Constitutional: No alert Head: atraumatic, normocephalic ENMT: intubated Neck: No jvd (unable to assess) Respiratory: crackles/rales, diminished breath sounds Cardiovascular: edema (1+), regular rate and rhythm, No systolic murmur Gastrointestinal: non-tender, soft, No distended Extremities: No normal pulses (diminished ) Neurological: No nl mental status, No nl speech Results Result Diagram: 07/29/16 1816 07/29/16 0550 Results 24 hrs Laboratory Tests Test 07/28/16 22:14 07/28/16 23:05 07/29/16 00:21 07/29/16 01:35 Bedside Glucose 191 186 188 208 Test 07/29/16 02:15 07/29/16 03:10 07/29/16 05:03 07/29/16 05:50 Bedside Glucose 171 190 206 Alanine Aminotransferase (ALT/SGPT) 81 H Albumin 3.5 Albumin/Globulin Ratio 0.89 Alkaline Phosphatase 94 Anion Gap 20 H Aspartate Amino Transf (AST/SGOT) 51 H Basophils # 0.0 Basophils % 0.3 Blood Morphology Comment Blood Urea Nitrogen 49 H Calcium Level 8.1 L Carbon Dioxide Level 26 Chloride Level 98 Creatinine 8.04 H Direct Bilirubin 0.00 Eosinophils # 0.1 Eosinophils % 1.1 Globulin 3.90 H Glucose Level 205 # Hematocrit 35.1 L Hemoglobin 11.9 L Indirect Bilirubin 0.2 Lymphocytes # 1.8 Lymphocytes % 14.1 L Magnesium Level 2.2 Mean Corpuscular Hemoglobin 31.8 Mean Corpuscular Hemoglobin Concent 33.9 Mean Corpuscular Volume 93.9 Mean Platelet Volume 8.6 Monocytes # 1.0 H Monocytes % 8.3 Neutrophils # 9.5 H Neutrophils % 76.2 Nucleated Red Blood Cells # 0.0 Nucleated Red Blood Cells % 0.0 Platelet Count 222 Potassium Level 4.5 Red Blood Count 3.74 L Red Cell Distribution Width 17.1 H Sodium Level 139 Total Bilirubin 0.2 Total Protein 7.4 White Blood Count 12.4 #H Test 07/29/16 06:02 07/29/16 07:00 07/29/16 07:09 07/29/16 07:56 Bedside Glucose 215 215 204 Arterial Blood HCO3 26.7 H Arterial Blood Base Excess 2.1 Arterial Blood Oxygen Saturation 94.3 L Osiel Test ACCEPTAB Arterial Blood Gas Puncture Site Right Radial Arterial Blood Carboxyhemoglobin 0.3 Arterial Blood Date Drawn 07/29/2016 8:12:42 AM Arterial Blood Methemoglobin 0.2 Arterial Blood pCO2 (Temp correct) 41.7 Arterial Blood pH (Temp corrected) 7.424 Arterial Blood pO2 (Temp corrected) 71.9 L Blood Gas A-a O2 Differential 129.2 H Blood Gas Actual Respiration Rate 24 Blood Gas Low PEEP Setting 5.0 Blood Gas Modality VENT - AC Blood Gas Notified Time 07/29/2016 8:30:32 AM Blood Gas Notified Whom TM Blood Gas Respiration Rate 24.0 Blood Gas Specimen Source Blood arterial Blood Gas Temperature 37.0 Blood Gas Tidal Volume 550.0 FiO2 35.0 Oxyhemoglobin Percent 93.8 Total Hemoglobin 13.2 Test 07/29/16 08:56 07/29/16 10:13 07/29/16 10:59 07/29/16 11:44 Bedside Glucose 207 188 185 Hemoglobin A1c 7.3 H Test 07/29/16 12:06 07/29/16 13:07 07/29/16 13:54 07/29/16 15:22 Bedside Glucose 186 186 172 163 Test 07/29/16 16:28 07/29/16 17:29 07/29/16 18:16 07/29/16 18:30 Bedside Glucose 163 175 181 Hematocrit 34.4 L Test 07/29/16 19:38 07/29/16 20:47 Bedside Glucose 195 169 Medications Medications Current Medications Miscellaneous Information HOLD all METFORMIN ... ONCE XX Last administered on 23:00; Admin Dose 1 EA; Start 07/27/16 at 23:00; Stop 07/29/16 at 22:59 Norepinephrine 16 mg/Dextrose 500 ml @ 1.87 mls/hr TITRATE IV Last administered on 07/28/16 21:18; Admin Dose 11.25 MLS/HR; Start 07/28/16 at 04: 00 Cefepime HCl (Maxipime 1gm/50 ml (Pmx)) 50 ml @ 100 mls/hr Q24H IVPB Last administered on 07/29/16 05:11; Admin Dose 100 MLS/HR; Start 07/28/16 at 01:00 Labetalol HCl 10 mg 10 mg Q6H PRN IV sbp > 160; Start 07/28/16 at 00:30 Propofol (Diprivan) 100 ml @ 3.609 mls/ hr Q12H PRN IV SEDATION Last administered on 07/29/16 18:29; Admin Dose 28.872 MLS/HR; Start 07/28/16 at 02: 30 Acetaminophen (Tylenol Supp) 650 mg Q6H PRN [place] PAIN AND OR ELEVATED TEMP Last administered on 07/29/16 03:05; Admin Dose 650 MG; Start 07/28/16 at 08:30 Miscellaneous Information 1 ea NOTE XX ; Start 07/28/16 at 09:00 Glucose (Glutose) 15 gm Q15M PRN PO DECREASED GLUCOSE; Start 07/28/16 at 09:00 Glucose (Glutose) 22.5 gm Q15M PRN PO DECREASED GLUCOSE; Start 07/28/16 at 09: 00 Dextrose (D50w Syringe) 25 ml Q15M PRN IV DECREASED GLUCOSE; Start 07/28/16 at 09:00 Dextrose (D50w Syringe) 50 ml Q15M PRN IV DECREASED GLUCOSE; Start 07/28/16 at 09:00 Glucagon (Glucagen) 1 mg Q15M PRN IM DECREASED GLUCOSE; Start 07/28/16 at 09:00 Glucose (Glutose) 15 gm Q15M PRN BUCCAL DECREASED GLUCOSE; Start 07/28/16 at 09 :00 Diagnostic Test (Pha) (Accucheck) 1 ea Q1H XX Last administered on 07/29/16 07 :00; Admin Dose 1 EA; Start 07/28/16 at 10:00 Dextrose (D50w Syringe) 25 ml Q15M PRN IV Till BS 80 mg/dL or above x2; Start 07/28/16 at 10:00 Dextrose (D50w Syringe) 50 ml Q15M PRN IV Till BS 80 mg/dL or above x2; Start 07/28/16 at 10:00 Miscellaneous Information 1 ONCE ONCE XX ; Start 07/30/16 at 05:00; Stop at 05:01 Levetiracetam/ Sodium Chloride (Keppra Iv/NS) 110 ml @ 420 mls/hr Q12 IVPB Last administered on 07/29/16 20:55; Admin Dose 420 MLS/HR; Start 07/29/16 at 21:00 IV Flush (NS 10 ml) 10 ml PRN PRN IV IV PROTOCOL; Start 07/29/16 at 17:00 TAYLOR WHITNEY MD Jul 29, 2016 21:34
[2016-07-30] VITALS (71 sets, daily range): BP systolic 88–185; BP diastolic 47–118; PULSE 90–113; RESP 0–29
[2016-07-30] MEDS: PROPOFOL 100 ML IV PRN ×6 (00:27→21:35)
[2016-07-30] MEDS: ACCUCHECK XX SCH ×24 (01:00→23:00)
[2016-07-30] MEDS: IPRATROPIUM (HFA) 12.9 GM INHALER INH SCH ×6 (01:21→20:48)
[2016-07-30] MEDS: ALBUTEROL HFA 8 GM INHALER INH SCH ×6 (01:21→20:48)
[2016-07-30] MEDS: CEFEPIME 1GM/50 ML (PMX) 50 ML IVPB SCH (01:58)
[2016-07-30] MEDS: ACETAMINOPHEN 650 MG SUPP PR PRN (01:59)
[2016-07-30] MEDS: INSULIN REGULAR, HUMAN 100 UNIT in SOD CHLORIDE 0.9% 99 ML IV SCH ×2 (02:01)
[2016-07-30 05:45] LABS: MAGNESIUM 2.2 mg/dl (1.7-2.5); PHOSPHORUS 8.1 mg/dl (2.5-4.9)
[2016-07-30 05:54] LABS: BASOPHILS % 0.3 % (0.0-2.0); EOSINOPHILS # 0.2 10^3/ul (0.0-0.5); EOSINOPHILS % 1.8 % (0.0-7.0); HEMATOCRIT 33.8 % (42.0-52.0); HEMOGLOBIN 11.8 g/dl (14.0-18.0); LYMPHOCYTES # 1.7 10^3/ul (0.8-2.9); LYMPHOCYTES % 13.3 % (15.0-51.0); MEAN CORPUSCULAR HEMOGLOBIN 32.2 pg (29.0-33.0); MEAN CORPUSCULAR HGB CONC 34.8 g/dl (32.0-37.0); MEAN CORPUSCULAR VOLUME 92.7 fl (82.0-101.0); MEAN PLATELET VOLUME 8.7 fl (7.4-10.4); MONOCYTE # 1.3 10^3/ul (0.3-0.9); MONOCYTES % 9.9 % (0.0-11.0); NEUTROPHIL # 9.7 10^3/ul (1.6-7.5); NEUTROPHILS % 74.7 % (39.0-77.0); PLATELET COUNT 206 10^3/UL (140-440); RED BLOOD COUNT 3.65 10^6/ul (4.70-6.10); RED CELL DISTRIBUTION WIDTH 15.8 % (11.5-14.5); UNCORRECTED WBC 12.9 10^3/ul (4.8-10.8); WHITE BLOOD COUNT 12.9 10^3/ul (4.8-10.8)
[2016-07-30 05:56] LABS: CONDITION 1; LH ANALYZER COMMENTS 1
[2016-07-30 06:37] LABS: ALBUMIN 3.5 g/dl (3.3-4.9)
[2016-07-30 06:38] LABS: POTASSIUM 4.1 mmol/L (3.5-5.1)
[2016-07-30 06:40] LABS: ALBUMIN/GLOBULIN RATIO 0.92; BILIRUBIN,INDIRECT 0.1 mg/dl (0-1.1); BILIRUBIN,TOTAL 0.1 mg/dl (0.2-1.3); CREATININE 8.04 mg/dl (0.61-1.24); TOTAL PROTEIN 7.3 g/dl (6.1-8.1)
[2016-07-30 06:41] LABS: CALCIUM 7.9 mg/dl (8.4-10.2)
--- NOTE | 2016-07-30 07:10 | PN ---
Date/Time of Note Date/Time of Note DATE: 07/30/16 TIME: 07:06 Assessment/Plan VTE Prophylaxis VTE Prophylaxis Intervention: other Lines/Catheters [facility] PICC Line Central line still needed: Yes Urinary Cath still in place: Yes Reason Cath still needed: terminal illness/intractable pain Assessment/Plan Problems: (1) Respiratory arrest before cardiac arrest Status: Acute Comment: Patient who is a smoker has a long history of asthmatic COPD. He suffered a respiratory arrest leading to PEA cardiac arrest. He was resuscitated from the field. He has been essentially in a vegetative state since that time. Neurology is involved. Please note his EEG did not show seizure activity which is now treated appropriately with medications. However as time moves forward the likelihood of sleep significant recovery diminishes. I had a discussion with the patient's son Asa who reported that he did not note any aspect of this discussion. 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 Please note that as an outpatient probably had obstructive sleep apnea however this is not an active issue presently Qualifiers: Obesity type: due to excess calories Qualified Code: E66.01 - Morbid obesity due to excess calories (7) Volume overload Status: Acute Comment: This is due to his renal failure. He is receiving dialysis under the guidance of nephrology Qualifiers: Hypervolemia type: other Qualified Code: E87.79 - Other hypervolemia (8) Anoxic encephalopathy Status: Acute Comment: This remains significant issue and neurology is guiding us with this. I am fearful that he will be left with a chronic vegetative state Subjective 24 Hr Interval Summary Free Text/Dictation Patient is intubated on propofol drip. His son Asa is at the bedside. Subjective hx not possible: pt non-verbal, pt critical status Exam/Review of Systems Vital Signs Vitals Vital Signs Date Time Temp Pulse Resp B/P Pulse Ox O2 Delivery O2 Flow Rate FiO2 07/30/16 06:45 98 23 102/55 97 Mechanical Ventilator 07/30/16 05:24 35 07/30/16 05:00 98.2 Intake and Output 07/29/16 07/29/16 07/30/16 15:00 23:00 07:00 Intake Total 122 ml 774 ml 219 ml Output Total 54 ml 2714 ml 340 ml Balance 68 ml -1940 ml -121 ml Exam Constitutional: non-verbal (Nonresponsive to noxious stimuli although he is on a propofol drip) Head: atraumatic, normocephalic Neck: non-tender, supple Respiratory: clear to auscultation, normal air movement Cardiovascular: nl pulses, regular rate and rhythm Gastrointestinal: nl liver, spleen, non-tender, soft Musculoskeletal: range of motion (Normal range of motion) Neurological: unresponsive Skin: other (At this time there are no decubiti or evidence of deep tissue injury) Results Result Diagram: 07/30/16 0430 07/30/16 0430 Results 24 hrs Laboratory Tests Test 07/29/16 07:09 07/29/16 07:56 07/29/16 08:56 07/29/16 10:13 Bedside Glucose 215 204 207 188 Test 07/29/16 10:59 07/29/16 11:44 07/29/16 12:06 07/29/16 13:07 Bedside Glucose 185 186 186 Hemoglobin A1c 7.3 H Test 07/29/16 13:54 07/29/16 15:22 07/29/16 16:28 07/29/16 17:29 Bedside Glucose 172 163 163 175 Test 07/29/16 18:16 07/29/16 18:30 07/29/16 19:38 07/29/16 20:47 Hematocrit 34.4 L Bedside Glucose 181 195 169 Test 07/29/16 22:19 07/29/16 23:13 07/30/16 00:24 07/30/16 01:31 Bedside Glucose 158 151 135 128 Test 07/30/16 02:47 07/30/16 03:40 07/30/16 04:30 07/30/16 04:41 Bedside Glucose 117 127 141 Alanine Aminotransferase (ALT/SGPT) 64 Albumin 3.5 Albumin/Globulin Ratio 0.92 Alkaline Phosphatase 99 Anion Gap 23 H Aspartate Amino Transf (AST/SGOT) 58 H Basophils # 0.0 Basophils % 0.3 Blood Morphology Comment Blood Urea Nitrogen 46 H Calcium Level 7.9 L Carbon Dioxide Level 25 Chloride Level 97 Creatinine 8.04 H Direct Bilirubin 0.00 Eosinophils # 0.2 Eosinophils % 1.8 Globulin 3.80 H Glucose Level 128 # Hematocrit 33.8 L Hemoglobin 11.8 L Indirect Bilirubin 0.1 Lymphocytes # 1.7 Lymphocytes % 13.3 L Magnesium Level 2.2 Mean Corpuscular Hemoglobin 32.2 Mean Corpuscular Hemoglobin Concent 34.8 Mean Corpuscular Volume 92.7 Mean Platelet Volume 8.7 Monocytes # 1.3 H Monocytes % 9.9 Neutrophils # 9.7 H Neutrophils % 74.7 Nucleated Red Blood Cells # 0.0 Nucleated Red Blood Cells % 0.0 Phosphorus Level 8.1 H Platelet Count 206 Potassium Level 4.1 Random Vancomycin Level 13.7 Red Blood Count 3.65 L Red Cell Distribution Width 15.8 H Sodium Level 141 Total Bilirubin 0.1 L Total Protein 7.3 White Blood Count 12.9 H Medications Medications Current Medications Norepinephrine 16 mg/Dextrose 500 ml @ 1.87 mls/hr TITRATE IV Last administered on 07/28/16 21:18; Admin Dose 11.25 MLS/HR; Start 07/28/16 at 04: 00 Cefepime HCl (Maxipime 1gm/50 ml (Pmx)) 50 ml @ 100 mls/hr Q24H IVPB Last administered on 07/30/16 01:58; Admin Dose 100 MLS/HR; Start 07/28/16 at 01:00 Labetalol HCl 10 mg 10 mg Q6H PRN IV sbp > 160; Start 07/28/16 at 00:30 Propofol (Diprivan) 100 ml @ 3.609 mls/ hr Q12H PRN IV SEDATION Last administered on 07/30/16 03:44; Admin Dose 29.52 MLS/HR; Start 07/28/16 at 02: 30 Acetaminophen (Tylenol Supp) 650 mg Q6H PRN [place] PAIN AND OR ELEVATED TEMP Last administered on 07/30/16 01:59; Admin Dose 650 MG; Start 07/28/16 at 08:30 Miscellaneous Information 1 ea NOTE XX ; Start 07/28/16 at 09:00 Glucose (Glutose) 15 gm Q15M PRN PO DECREASED GLUCOSE; Start 07/28/16 at 09:00 Glucose (Glutose) 22.5 gm Q15M PRN PO DECREASED GLUCOSE; Start 07/28/16 at 09: 00 Dextrose (D50w Syringe) 25 ml Q15M PRN IV DECREASED GLUCOSE; Start 07/28/16 at 09:00 Dextrose (D50w Syringe) 50 ml Q15M PRN IV DECREASED GLUCOSE; Start 07/28/16 at 09:00 Glucagon (Glucagen) 1 mg Q15M PRN IM DECREASED GLUCOSE; Start 07/28/16 at 09:00 Glucose (Glutose) 15 gm Q15M PRN BUCCAL DECREASED GLUCOSE; Start 07/28/16 at 09 :00 Diagnostic Test (Pha) (Accucheck) 1 ea Q1H XX Last administered on 07/30/16t 03 :44; Admin Dose 1 EA; Start 07/28/16 at 10:00 Dextrose (D50w Syringe) 25 ml Q15M PRN IV Till BS 80 mg/dL or above x2; Start 07/28/16 at 10:00 Dextrose 50 ml 50 ml Q15M PRN IV Till BS 80 mg/dL or above x2; Start 07/28/16 at 10:00 Levetiracetam/ Sodium Chloride (Keppra Iv/NS) 110 ml @ 420 mls/hr Q12 IVPB Last administered on 07/29/16t 20:55; Admin Dose 420 MLS/HR; Start 07/29/16 at 21:00 IV Flush (NS 10 ml) 10 ml PRN PRN IV IV PROTOCOL; Start 07/29/16 at 17:00 LOPEZ LOW MD Jul 30, 2016 07:10
[2016-07-30 08:43] LABS: AADO2 Arterial 125.3 mmHg (7.0-24.0); Allen Test ACCEPTAB; Arterial Base Excess 1.5 mmol/L (-3.0-3); Arterial COHb 0.5 % (0.0-3.0); Arterial Fraction of Oxyhgb 94.1 % (93.0-99.0); Arterial HCO3 26.5 mmol/L (22.0-26.0); Arterial MetHb 0.1 % (0.0-1.5); Arterial Total Hemglobin 13.2 g/dl (12.0-18.0); MODE VENT - AC
[2016-07-30] MEDS: LEVETIRACETAM IV 1,000 MG in SOD CHLORIDE 0.9% 100 ML IVPB SCH ×2 (08:58→21:13)
--- NOTE | 2016-07-30 09:03 | RADRPT ---
PROCEDURE: XR Chest. CLINICAL INDICATION: Pneumonia versus CHF . TECHNIQUE: PA and Lateral views of the chest were obtained. COMPARISON: None. FINDINGS: The cardiac silhouette is mildly enlarged. Support devices in stable position. . Persistent patchy right infrahilar air space opacities which may reflect atelectasis or infiltrate. Healed right pos terior chronic rib fractures. No pneumothorax. The osseous structures and soft tissues are unremark able. IMPRESSION: Support devices in stable position. Persistent hazy right lower lobe opacity which may represent at electasis or infiltrate. No other interval change. RPTAT:AAJJ Remington Bateman Physician Date Time Electronically viewed and signed by Physician Yaakov on 07/30/2016 09:02 DAVID/
--- NOTE | 2016-07-30 10:49 | CONS ---
Date/Time of Note Date/Time of Note DATE: 07/30/16 TIME: 10:44 Assessment/Plan Assessment/Plan Additional Assessment/Plan A/P: 56 M with: 1. PEA s/p cardiac arrest with ROSC - Etiology of PEA likely 2/[address] Brain shows no CVA. LHC - negative for coronary artery disease. echo ef wnl 2. ESRD on HD - s/p hd x 3. hd in am 3. SIRS with elevated white count and fever-likely reactive vs PNA - WBC trending down slowly - cont cefepime/vanc for now but consider DC of ABx soon if no further e/o SIRS 4. VDRF -pulm consult appreciated, wean off vent as tolerated 5. Hypotension - cardiac shock vs septic shock : honey off presoors as tolerated 6. CHF - acute - diastolic dysfunction - fluid to be removed via dialysis - monitor I/O's. improving 7. Essential hypertension - hold medications as patient is hypotensive 8. Type II DM - uncontrolled, check Hgba1c, ISS, lantus 9-encephalopathy: suspect anoxic due to cardiac arrest +/- sezures. on keppra 10. Obesity - consider nutrition consult once extubated prognosis gaurded. dw family Consultation Date/Type/Reason Admit Date/Time Jul 27, 2016 at 23:29 Initial Consult Date 07/28/16 Type of Consultation: nephrology 24 HR Interval Summary Free Text/Dictation sedated on vent. unresponsive. family at bedside Exam/Review of Systems Vital Signs Vitals Vital Signs Date Time Temp Pulse Resp B/P Pulse Ox O2 Delivery O2 Flow Rate FiO2 07/30/16 08:00 99 07/30/16 06:45 23 102/55 97 Mechanical Ventilator 07/30/16 05:24 35 07/30/16 05:00 98.2 Intake and Output 07/29/16 07/29/16 07/30/16 15:00 23:00 07:00 Intake Total 122 ml 774 ml 219 ml Output Total 54 ml 2714 ml 340 ml Balance 68 ml -1940 ml -121 ml Exam Constitutional: non-verbal Head: atraumatic, normocephalic Eyes: nl conjunctiva Neck: jvd, non-tender, supple Respiratory: diminished breath sounds Cardiovascular: edema, nl pulses, regular rate and rhythm Gastrointestinal: non-tender Results Result Diagram: 07/30/16 0430 07/30/16 0430 Results 24 hrs Laboratory Tests Test 07/29/16 10:59 07/29/16 11:44 07/29/16 12:06 07/29/16 13:07 Bedside Glucose 185 186 186 Hemoglobin A1c 7.3 H Test 07/29/16 13:54 07/29/16 15:22 07/29/16 16:28 07/29/16 17:29 Bedside Glucose 172 163 163 175 Test 07/29/16 18:16 07/29/16 18:30 07/29/16 19:38 07/29/16 20:47 Hematocrit 34.4 L Bedside Glucose 181 195 169 Test 07/29/16 22:19 07/29/16 23:13 07/30/16 00:24 07/30/16 01:31 Bedside Glucose 158 151 135 128 Test 07/30/16 02:47 07/30/16 03:40 07/30/16 04:30 07/30/16 04:41 Bedside Glucose 117 127 141 Alanine Aminotransferase (ALT/SGPT) 64 Albumin 3.5 Albumin/Globulin Ratio 0.92 Alkaline Phosphatase 99 Anion Gap 23 H Aspartate Amino Transf (AST/SGOT) 58 H Basophils # 0.0 Basophils % 0.3 Blood Morphology Comment Blood Urea Nitrogen 46 H Calcium Level 7.9 L Carbon Dioxide Level 25 Chloride Level 97 Creatinine 8.04 H Direct Bilirubin 0.00 Eosinophils # 0.2 Eosinophils % 1.8 Globulin 3.80 H Glucose Level 128 # Hematocrit 33.8 L Hemoglobin 11.8 L Indirect Bilirubin 0.1 Lymphocytes # 1.7 Lymphocytes % 13.3 L Magnesium Level 2.2 Mean Corpuscular Hemoglobin 32.2 Mean Corpuscular Hemoglobin Concent 34.8 Mean Corpuscular Volume 92.7 Mean Platelet Volume 8.7 Monocytes # 1.3 H Monocytes % 9.9 Neutrophils # 9.7 H Neutrophils % 74.7 Nucleated Red Blood Cells # 0.0 Nucleated Red Blood Cells % 0.0 Phosphorus Level 8.1 H Platelet Count 206 Potassium Level 4.1 Random Vancomycin Level 13.7 Red Blood Count 3.65 L Red Cell Distribution Width 15.8 H Sodium Level 141 Total Bilirubin 0.1 L Total Protein 7.3 White Blood Count 12.9 H Test 07/30/16 07:00 07/30/16 07:18 07/30/16 08:38 07/30/16 09:30 Arterial Blood HCO3 26.5 H Arterial Blood Base Excess 1.5 Arterial Blood Oxygen Saturation 94.7 L Osiel Test ACCEPTAB Arterial Blood Gas Puncture Site Right Radial Arterial Blood Carboxyhemoglobin 0.5 Arterial Blood Date Drawn 07/30/2016 8:20:46 AM Arterial Blood Methemoglobin 0.1 Arterial Blood pCO2 (Temp correct) 43.2 Arterial Blood pH (Temp corrected) 7.405 Arterial Blood pO2 (Temp corrected) 74.0 L Blood Gas A-a O2 Differential 125.3 H Blood Gas Actual Respiration Rate 24 Blood Gas Low PEEP Setting 5.0 Blood Gas Modality VENT - AC Blood Gas Notified Time 07/30/2016 8:43:16 AM Blood Gas Notified Whom DT Blood Gas Respiration Rate 24.0 Blood Gas Specimen Source Blood arterial Blood Gas Temperature 37.0 Blood Gas Tidal Volume 550.0 FiO2 35.0 Oxyhemoglobin Percent 94.1 Total Hemoglobin 13.2 Bedside Glucose 161 169 175 Test 07/30/16 10:34 Bedside Glucose 156 Medications Medications Current Medications Norepinephrine 16 mg/Dextrose 500 ml @ 1.87 mls/hr TITRATE IV Last administered on 07/28/16 21:18; Admin Dose 11.25 MLS/HR; Start 07/28/16 at 04: 00 Cefepime HCl (Maxipime 1gm/50 ml (Pmx)) 50 ml @ 100 mls/hr Q24H IVPB Last administered on 07/30/16 01:58; Admin Dose 100 MLS/HR; Start 07/28/16 at 01:00 Labetalol HCl 10 mg 10 mg Q6H PRN IV sbp > 160; Start 07/28/16 at 00:30 Propofol (Diprivan) 100 ml @ 3.609 mls/ hr Q12H PRN IV SEDATION Last administered on 07/30/16 07:40; Admin Dose 29.82 MLS/HR; Start 07/28/16 at 02: 30 Acetaminophen (Tylenol Supp) 650 mg Q6H PRN [place] PAIN AND OR ELEVATED TEMP Last administered on 07/30/16 01:59; Admin Dose 650 MG; Start 07/28/16 at 08:30 Miscellaneous Information 1 ea NOTE XX ; Start 07/28/16 at 09:00 Glucose (Glutose) 15 gm Q15M PRN PO DECREASED GLUCOSE; Start 07/28/16 at 09:00 Glucose (Glutose) 22.5 gm Q15M PRN PO DECREASED GLUCOSE; Start 07/28/16 at 09: 00 Dextrose (D50w Syringe) 25 ml Q15M PRN IV DECREASED GLUCOSE; Start 07/28/16 at 09:00 Dextrose (D50w Syringe) 50 ml Q15M PRN IV DECREASED GLUCOSE; Start 07/28/16 at 09:00 Glucagon (Glucagen) 1 mg Q15M PRN IM DECREASED GLUCOSE; Start 07/28/16 at 09:00 Glucose (Glutose) 15 gm Q15M PRN BUCCAL DECREASED GLUCOSE; Start 07/28/16 at 09 :00 Diagnostic Test (Pha) (Accucheck) 1 ea Q1H XX Last administered on 07/30/16 07 :00; Admin Dose 1 EA; Start 07/28/16 at 10:00 Dextrose (D50w Syringe) 25 ml Q15M PRN IV Till BS 80 mg/dL or above x2; Start 07/28/16 at 10:00 Dextrose 50 ml 50 ml Q15M PRN IV Till BS 80 mg/dL or above x2; Start 07/28/16 at 10:00 Levetiracetam/ Sodium Chloride (Keppra Iv/NS) 110 ml @ 420 mls/hr Q12 IVPB Last administered on 07/30/16 08:58; Admin Dose 420 MLS/HR; Start 07/29/16 at 21:00 IV Flush 10 ml 10 ml PRN PRN IV IV PROTOCOL; Start 07/29/16 at 17:00 Vancomycin HCl/ Sodium Chloride (Vancocin/NS) 250 ml @ 83.333 mls/ hr 13 IVPB ; Start 07/30/16 at 13:00; Stop 07/30/16 at 23:00 JANINA PENG MD Jul 30, 2016 10:49
[2016-07-30] MEDS ORDERED: VANCOMYCIN 1.5 GM in SOD CHLORIDE 0.9% 250 ML IVPB SCH (13:00)
--- NOTE | 2016-07-30 13:50 | CONS ---
Date/Time of Note Date/Time of Note DATE: 07/30/16 TIME: 13:48 Assessment/Plan Assessment/Plan Chief Complaint/Hosp Course PEA Problems: Additional Assessment/Plan 56 year old M with hx of ESRD, HTN, DM, Asthma began experiencing SOB suffered PEA arrest with ROSC for 20 mins, STEMI s/p cardiac catheterization with no intervention with possible seizure activity vs. post anoxic myoclonus. EEG showed burst suppression pattern suggesting severe encephalopathy with seizure activity. CT brain showed nothing acute. Examination showed positive corneals, pupillary reflexes and gag reflex. PLAN: -Continue Keppra 1000 mg q12h -on propofol held, -continue neurologic exams off sedation -prognosis poor -will follow Consultation Date/Type/Reason Admit Date/Time Jul 27, 2016 at 23:29 Initial Consult Date 07/28/16 Type of Consultation: nephrology Reason for Consultation Cardiorespiratory arrest 24 HR Interval Summary Free Text/Dictation Clinically unchanged, no visible seizures seen. Constitutional: other (toes) Exam/Review of Systems Vital Signs Vitals Vital Signs Date Time Temp Pulse Resp B/P Pulse Ox O2 Delivery O2 Flow Rate FiO2 07/30/16 12:00 95 07/30/16 06:45 23 102/55 97 Mechanical Ventilator 07/30/16 05:24 35 07/30/16 05:00 98.2 Intake and Output 07/29/16 07/29/16 07/30/16 15:00 23:00 07:00 Intake Total 122 ml 774 ml 219 ml Output Total 54 ml 2714 ml 340 ml Balance 68 ml -1940 ml -121 ml Exam Constitutional: other (comatose, intubated, ventilated, sedated) Head: atraumatic, normocephalic Eyes: EOMI, nl conjunctiva, nl lids ENMT: nl external ears & nose, nl lips & teeth, nl nasal mucosa & septum Neck: non-tender, supple Respiratory: normal air movement Cardiovascular: nl pulses, regular rate and rhythm Gastrointestinal: soft Extremities: normal pulses, other (limited exam, intubated, sedated, ventilated , corneal and gag are present, no withdrawal to noxious stimulus) Results Result Diagram: 07/30/16 0430 07/30/16 0430 Results 24 hrs Laboratory Tests Test 07/29/16 13:54 07/29/16 15:22 07/29/16 16:28 07/29/16 17:29 Bedside Glucose 172 163 163 175 Test 07/29/16 18:16 07/29/16 18:30 07/29/16 19:38 07/29/16 20:47 Hematocrit 34.4 L Bedside Glucose 181 195 169 Test 07/29/16 22:19 07/29/16 23:13 07/30/16 00:24 07/30/16 01:31 Bedside Glucose 158 151 135 128 Test 07/30/16 02:47 07/30/16 03:40 07/30/16 04:30 07/30/16 04:41 Bedside Glucose 117 127 141 Alanine Aminotransferase (ALT/SGPT) 64 Albumin 3.5 Albumin/Globulin Ratio 0.92 Alkaline Phosphatase 99 Anion Gap 23 H Aspartate Amino Transf (AST/SGOT) 58 H Basophils # 0.0 Basophils % 0.3 Blood Morphology Comment Blood Urea Nitrogen 46 H Calcium Level 7.9 L Carbon Dioxide Level 25 Chloride Level 97 Creatinine 8.04 H Direct Bilirubin 0.00 Eosinophils # 0.2 Eosinophils % 1.8 Globulin 3.80 H Glucose Level 128 # Hematocrit 33.8 L Hemoglobin 11.8 L Indirect Bilirubin 0.1 Lymphocytes # 1.7 Lymphocytes % 13.3 L Magnesium Level 2.2 Mean Corpuscular Hemoglobin 32.2 Mean Corpuscular Hemoglobin Concent 34.8 Mean Corpuscular Volume 92.7 Mean Platelet Volume 8.7 Monocytes # 1.3 H Monocytes % 9.9 Neutrophils # 9.7 H Neutrophils % 74.7 Nucleated Red Blood Cells # 0.0 Nucleated Red Blood Cells % 0.0 Phosphorus Level 8.1 H Platelet Count 206 Potassium Level 4.1 Random Vancomycin Level 13.7 Red Blood Count 3.65 L Red Cell Distribution Width 15.8 H Sodium Level 141 Total Bilirubin 0.1 L Total Protein 7.3 White Blood Count 12.9 H Test 07/30/16 07:00 07/30/16 07:18 07/30/16 08:38 07/30/16 09:30 Arterial Blood HCO3 26.5 H Arterial Blood Base Excess 1.5 Arterial Blood Oxygen Saturation 94.7 L Osiel Test ACCEPTAB Arterial Blood Gas Puncture Site Right Radial Arterial Blood Carboxyhemoglobin 0.5 Arterial Blood Date Drawn 07/30/2016 8:20:46 AM Arterial Blood Methemoglobin 0.1 Arterial Blood pCO2 (Temp correct) 43.2 Arterial Blood pH (Temp corrected) 7.405 Arterial Blood pO2 (Temp corrected) 74.0 L Blood Gas A-a O2 Differential 125.3 H Blood Gas Actual Respiration Rate 24 Blood Gas Low PEEP Setting 5.0 Blood Gas Modality VENT - AC Blood Gas Notified Time 07/30/2016 8:43:16 AM Blood Gas Notified Whom DT Blood Gas Respiration Rate 24.0 Blood Gas Specimen Source Blood arterial Blood Gas Temperature 37.0 Blood Gas Tidal Volume 550.0 FiO2 35.0 Oxyhemoglobin Percent 94.1 Total Hemoglobin 13.2 Bedside Glucose 161 169 175 Test 07/30/16 10:34 07/30/16 11:36 07/30/16 12:23 07/30/16 13:24 Bedside Glucose 156 144 150 174 Medications Medications Current Medications Norepinephrine 16 mg/Dextrose 500 ml @ 1.87 mls/hr TITRATE IV Last administered on 07/28/16 21:18; Admin Dose 11.25 MLS/HR; Start 07/28/16 at 04: 00 Cefepime HCl (Maxipime 1gm/50 ml (Pmx)) 50 ml @ 100 mls/hr Q24H IVPB Last administered on 07/30/16 01:58; Admin Dose 100 MLS/HR; Start 07/28/16 at 01:00 Labetalol HCl 10 mg 10 mg Q6H PRN IV sbp > 160; Start 07/28/16 at 00:30 Propofol (Diprivan) 100 ml @ 3.609 mls/ hr Q12H PRN IV SEDATION Last administered on 07/30/16 11:21; Admin Dose 21.654 MLS/HR; Start 07/28/16 at 02: 30 Acetaminophen (Tylenol Supp) 650 mg Q6H PRN [place] PAIN AND OR ELEVATED TEMP Last administered on 07/30/16 01:59; Admin Dose 650 MG; Start 07/28/16 at 08:30 Miscellaneous Information 1 ea NOTE XX ; Start 07/28/16 at 09:00 Glucose (Glutose) 15 gm Q15M PRN PO DECREASED GLUCOSE; Start 07/28/16 at 09:00 Glucose (Glutose) 22.5 gm Q15M PRN PO DECREASED GLUCOSE; Start 07/28/16 at 09: 00 Dextrose (D50w Syringe) 25 ml Q15M PRN IV DECREASED GLUCOSE; Start 07/28/16 at 09:00 Dextrose (D50w Syringe) 50 ml Q15M PRN IV DECREASED GLUCOSE; Start 07/28/16 at 09:00 Glucagon (Glucagen) 1 mg Q15M PRN IM DECREASED GLUCOSE; Start 07/28/16 at 09:00 Glucose (Glutose) 15 gm Q15M PRN BUCCAL DECREASED GLUCOSE; Start 07/28/16 at 09 :00 Diagnostic Test (Pha) (Accucheck) 1 ea Q1H XX Last administered on 07/30/16 07 :00; Admin Dose 1 EA; Start 07/28/16 at 10:00 Dextrose (D50w Syringe) 25 ml Q15M PRN IV Till BS 80 mg/dL or above x2; Start 07/28/16 at 10:00 Dextrose 50 ml 50 ml Q15M PRN IV Till BS 80 mg/dL or above x2; Start 07/28/16 at 10:00 Levetiracetam/ Sodium Chloride (Keppra Iv/NS) 110 ml @ 420 mls/hr Q12 IVPB Last administered on 07/30/16 08:58; Admin Dose 420 MLS/HR; Start 07/29/16 at 21:00 IV Flush 10 ml 10 ml PRN PRN IV IV PROTOCOL; Start 07/29/16 at 17:00 Vancomycin HCl/ Sodium Chloride (Vancocin/NS) 250 ml @ 83.333 mls/ hr 13 IVPB ; Start 07/30/16 at 13:00; Stop 07/30/16 at 23:00 DANIEL KENNEDY MD Jul 30, 2016 13:50
--- NOTE | 2016-07-30 16:06 | CONS ---
Date/Time of Note Date/Time of Note DATE: 07/30/16 TIME: 16:05 Assessment/Plan Assessment/Plan Chief Complaint/Hosp Course Assessment: Status post cardiac arrest - suspect secondary to hypoxia Hypotension Possible anoxic brain injury with seizure activity End-stage renal disease - on hemodialysis Recommendations: -coronary angiography without significant coronary artery disease -echocardiogram showed LVEF 60% -follow up neurology recommendations Problems: Consultation Date/Type/Reason Admit Date/Time Jul 27, 2016 at 23:29 Initial Consult Date 07/28/16 Type of Consultation: Cardiology 24 HR Interval Summary Free Text/Dictation Off Levophed. Detailed Summary Additional Comments Unable to obtain due to patient's mental status. Exam/Review of Systems Vital Signs Vitals Vital Signs Date Time Temp Pulse Resp B/P Pulse Ox O2 Delivery O2 Flow Rate FiO2 07/30/16 14:30 104 25 147/71 94 07/30/16 14:00 Mechanical Ventilator 07/30/16 12:00 99.9 07/30/16 08:00 35 Intake and Output 07/29/16 07/29/16 07/30/16 15:00 23:00 07:00 Intake Total 122 ml 774 ml 219 ml Output Total 54 ml 2714 ml 340 ml Balance 68 ml -1940 ml -121 ml Exam Constitutional: No alert Head: atraumatic, normocephalic ENMT: intubated Neck: No jvd (unable to assess) Respiratory: crackles/rales, diminished breath sounds Cardiovascular: edema (1+), regular rate and rhythm, No systolic murmur Gastrointestinal: non-tender, soft, No distended Extremities: No normal pulses (diminished ) Neurological: No nl mental status, No nl speech Results Result Diagram: 07/30/16 0430 07/30/16 0430 Results 24 hrs Laboratory Tests Test 07/29/16 16:28 07/29/16 17:29 07/29/16 18:16 07/29/16 18:30 Bedside Glucose 163 175 181 Hematocrit 34.4 L Test 07/29/16 19:38 07/29/16 20:47 07/29/16 22:19 07/29/16 23:13 Bedside Glucose 195 169 158 151 Test 07/30/16 00:24 07/30/16 01:31 07/30/16 02:47 07/30/16 03:40 Bedside Glucose 135 128 117 127 Test 07/30/16 04:30 07/30/16 04:41 07/30/16 07:00 07/30/16 07:18 Alanine Aminotransferase (ALT/SGPT) 64 Albumin 3.5 Albumin/Globulin Ratio 0.92 Alkaline Phosphatase 99 Anion Gap 23 H Aspartate Amino Transf (AST/SGOT) 58 H Basophils # 0.0 Basophils % 0.3 Blood Morphology Comment Blood Urea Nitrogen 46 H Calcium Level 7.9 L Carbon Dioxide Level 25 Chloride Level 97 Creatinine 8.04 H Direct Bilirubin 0.00 Eosinophils # 0.2 Eosinophils % 1.8 Globulin 3.80 H Glucose Level 128 # Hematocrit 33.8 L Hemoglobin 11.8 L Indirect Bilirubin 0.1 Lymphocytes # 1.7 Lymphocytes % 13.3 L Magnesium Level 2.2 Mean Corpuscular Hemoglobin 32.2 Mean Corpuscular Hemoglobin Concent 34.8 Mean Corpuscular Volume 92.7 Mean Platelet Volume 8.7 Monocytes # 1.3 H Monocytes % 9.9 Neutrophils # 9.7 H Neutrophils % 74.7 Nucleated Red Blood Cells # 0.0 Nucleated Red Blood Cells % 0.0 Phosphorus Level 8.1 H Platelet Count 206 Potassium Level 4.1 Random Vancomycin Level 13.7 Red Blood Count 3.65 L Red Cell Distribution Width 15.8 H Sodium Level 141 Total Bilirubin 0.1 L Total Protein 7.3 White Blood Count 12.9 H Bedside Glucose 141 161 Arterial Blood HCO3 26.5 H Arterial Blood Base Excess 1.5 Arterial Blood Oxygen Saturation 94.7 L Osiel Test ACCEPTAB Arterial Blood Gas Puncture Site Right Radial Arterial Blood Carboxyhemoglobin 0.5 Arterial Blood Date Drawn 07/30/2016 8:20:46 AM Arterial Blood Methemoglobin 0.1 Arterial Blood pCO2 (Temp correct) 43.2 Arterial Blood pH (Temp corrected) 7.405 Arterial Blood pO2 (Temp corrected) 74.0 L Blood Gas A-a O2 Differential 125.3 H Blood Gas Actual Respiration Rate 24 Blood Gas Low PEEP Setting 5.0 Blood Gas Modality VENT - AC Blood Gas Notified Time 07/30/2016 8:43:16 AM Blood Gas Notified Whom DT Blood Gas Respiration Rate 24.0 Blood Gas Specimen Source Blood arterial Blood Gas Temperature 37.0 Blood Gas Tidal Volume 550.0 FiO2 35.0 Oxyhemoglobin Percent 94.1 Total Hemoglobin 13.2 Test 07/30/16 08:38 07/30/16 09:30 07/30/16 10:34 07/30/16 11:36 Bedside Glucose 169 175 156 144 Test 07/30/16 12:23 07/30/16 13:24 07/30/16 15:14 Bedside Glucose 150 174 177 Medications Medications Current Medications Norepinephrine 16 mg/Dextrose 500 ml @ 1.87 mls/hr TITRATE IV Last administered on 07/28/16 21:18; Admin Dose 11.25 MLS/HR; Start 07/28/16 at 04: 00 Cefepime HCl (Maxipime 1gm/50 ml (Pmx)) 50 ml @ 100 mls/hr Q24H IVPB Last administered on 07/30/16 01:58; Admin Dose 100 MLS/HR; Start 07/28/16 at 01:00 Labetalol HCl 10 mg 10 mg Q6H PRN IV sbp > 160; Start 07/28/16 at 00:30 Propofol (Diprivan) 100 ml @ 3.609 mls/ hr Q12H PRN IV SEDATION Last administered on 07/30/16 11:21; Admin Dose 21.654 MLS/HR; Start 07/28/16 at 02: 30 Acetaminophen (Tylenol Supp) 650 mg Q6H PRN IN PAIN AND OR ELEVATED TEMP Last administered on 07/30/16 01:59; Admin Dose 650 MG; Start 07/28/16 at 08:30 Miscellaneous Information 1 ea NOTE XX ; Start 07/28/16 at 09:00 Glucose (Glutose) 15 gm Q15M PRN PO DECREASED GLUCOSE; Start 07/28/16 at 09:00 Glucose (Glutose) 22.5 gm Q15M PRN PO DECREASED GLUCOSE; Start 07/28/16 at 09: 00 Dextrose (D50w Syringe) 25 ml Q15M PRN IV DECREASED GLUCOSE; Start 07/28/16 at 09:00 Dextrose (D50w Syringe) 50 ml Q15M PRN IV DECREASED GLUCOSE; Start 07/28/16 at 09:00 Glucagon (Glucagen) 1 mg Q15M PRN IM DECREASED GLUCOSE; Start 07/28/16 at 09:00 Glucose (Glutose) 15 gm Q15M PRN BUCCAL DECREASED GLUCOSE; Start 07/28/16 at 09 :00 Diagnostic Test (Pha) (Accucheck) 1 ea Q1H XX Last administered on 07/30/16 07 :00; Admin Dose 1 EA; Start 07/28/16 at 10:00 Dextrose (D50w Syringe) 25 ml Q15M PRN IV Till BS 80 mg/dL or above x2; Start 07/28/16 at 10:00 Dextrose 50 ml 50 ml Q15M PRN IV Till BS 80 mg/dL or above x2; Start 07/28/16 at 10:00 Levetiracetam/ Sodium Chloride (Keppra Iv/NS) 110 ml @ 420 mls/hr Q12 IVPB Last administered on 07/30/16 08:58; Admin Dose 420 MLS/HR; Start 07/29/16 at 21:00 IV Flush 10 ml 10 ml PRN PRN IV IV PROTOCOL; Start 07/29/16 at 17:00 Vancomycin HCl/ Sodium Chloride (Vancocin/NS) 250 ml @ 83.333 mls/ hr 13 IVPB Last administered on 07/30/16 13:49; Admin Dose 83.333 MLS/HR; Start 07/30/16 at 13:00; Stop 07/30/16 at 23:00 TAYLOR WHITNEY MD Jul 30, 2016 16:06
--- NOTE | 2016-07-30 16:21 | CONS ---
Date/Time of Note Date/Time of Note DATE: 07/30/16 TIME: 16:18 Consult Date/Type/Reason Admit Date/Time Jul 27, 2016 at 23:29 Initial Consult Date 07/28/16 Type of Consultation: Pulm Subjective Minimally responsive on MV. Objective Vital Signs Date Time Temp Pulse Resp B/P Pulse Ox O2 Delivery O2 Flow Rate FiO2 07/30/16 14:50 105 24 98 35 07/30/16 14:30 147/71 07/30/16 14:00 Mechanical Ventilator 07/30/16 12:00 99.9 Intake and Output 07/29/16 07/29/16 07/30/16 15:00 23:00 07:00 Intake Total 122 ml 774 ml 219 ml Output Total 54 ml 2714 ml 340 ml Balance 68 ml -1940 ml -121 ml NECK: Supple. No JVD or lymphadenopathy. CARDIAC: S1, S2, no added sounds or murmurs. CHEST: Diminished air entry bilaterally. ABDOMEN: Soft, nontender. No guarding, no rebound, obese. EXTREMITIES: No cyanosis, clubbing or edema. Results/Medications Result Diagram: 07/30/16 0430 07/30/16 0430 Results 24 hrs Laboratory Tests Test 07/29/16 16:28 07/29/16 17:29 07/29/16 18:16 07/29/16 18:30 Bedside Glucose 163 175 181 Hematocrit 34.4 L Test 07/29/16 19:38 07/29/16 20:47 07/29/16 22:19 07/29/16 23:13 Bedside Glucose 195 169 158 151 Test 07/30/16 00:24 07/30/16 01:31 07/30/16 02:47 07/30/16 03:40 Bedside Glucose 135 128 117 127 Test 07/30/16 04:30 07/30/16 04:41 07/30/16 07:00 07/30/16 07:18 Alanine Aminotransferase (ALT/SGPT) 64 Albumin 3.5 Albumin/Globulin Ratio 0.92 Alkaline Phosphatase 99 Anion Gap 23 H Aspartate Amino Transf (AST/SGOT) 58 H Basophils # 0.0 Basophils % 0.3 Blood Morphology Comment Blood Urea Nitrogen 46 H Calcium Level 7.9 L Carbon Dioxide Level 25 Chloride Level 97 Creatinine 8.04 H Direct Bilirubin 0.00 Eosinophils # 0.2 Eosinophils % 1.8 Globulin 3.80 H Glucose Level 128 # Hematocrit 33.8 L Hemoglobin 11.8 L Indirect Bilirubin 0.1 Lymphocytes # 1.7 Lymphocytes % 13.3 L Magnesium Level 2.2 Mean Corpuscular Hemoglobin 32.2 Mean Corpuscular Hemoglobin Concent 34.8 Mean Corpuscular Volume 92.7 Mean Platelet Volume 8.7 Monocytes # 1.3 H Monocytes % 9.9 Neutrophils # 9.7 H Neutrophils % 74.7 Nucleated Red Blood Cells # 0.0 Nucleated Red Blood Cells % 0.0 Phosphorus Level 8.1 H Platelet Count 206 Potassium Level 4.1 Random Vancomycin Level 13.7 Red Blood Count 3.65 L Red Cell Distribution Width 15.8 H Sodium Level 141 Total Bilirubin 0.1 L Total Protein 7.3 White Blood Count 12.9 H Bedside Glucose 141 161 Arterial Blood HCO3 26.5 H Arterial Blood Base Excess 1.5 Arterial Blood Oxygen Saturation 94.7 L Osiel Test ACCEPTAB Arterial Blood Gas Puncture Site Right Radial Arterial Blood Carboxyhemoglobin 0.5 Arterial Blood Date Drawn 07/30/2016 8:20:46 AM Arterial Blood Methemoglobin 0.1 Arterial Blood pCO2 (Temp correct) 43.2 Arterial Blood pH (Temp corrected) 7.405 Arterial Blood pO2 (Temp corrected) 74.0 L Blood Gas A-a O2 Differential 125.3 H Blood Gas Actual Respiration Rate 24 Blood Gas Low PEEP Setting 5.0 Blood Gas Modality VENT - AC Blood Gas Notified Time 07/30/2016 8:43:16 AM Blood Gas Notified Whom DT Blood Gas Respiration Rate 24.0 Blood Gas Specimen Source Blood arterial Blood Gas Temperature 37.0 Blood Gas Tidal Volume 550.0 FiO2 35.0 Oxyhemoglobin Percent 94.1 Total Hemoglobin 13.2 Test 07/30/16 08:38 07/30/16 09:30 07/30/16 10:34 07/30/16 11:36 Bedside Glucose 169 175 156 144 Test 07/30/16 12:23 07/30/16 13:24 07/30/16 15:14 07/30/16 16:00 Bedside Glucose 150 174 177 180 Medications Current Medications Norepinephrine 16 mg/Dextrose 500 ml @ 1.87 mls/hr TITRATE IV Last administered on 07/28/16t 21:18; Admin Dose 11.25 MLS/HR; Start 07/28/16 at 04: 00 Cefepime HCl (Maxipime 1gm/50 ml (Pmx)) 50 ml @ 100 mls/hr Q24H IVPB Last administered on 07/30/16 01:58; Admin Dose 100 MLS/HR; Start 07/28/16 at 01:00 Labetalol HCl 10 mg 10 mg Q6H PRN IV sbp > 160; Start 07/28/16 at 00:30 Propofol (Diprivan) 100 ml @ 3.609 mls/ hr Q12H PRN IV SEDATION Last administered on 07/30/16 11:21; Admin Dose 21.654 MLS/HR; Start 07/28/16 at 02: 30 Acetaminophen (Tylenol Supp) 650 mg Q6H PRN [place] PAIN AND OR ELEVATED TEMP Last administered on 07/30/16 01:59; Admin Dose 650 MG; Start 07/28/16 at 08:30 Miscellaneous Information 1 ea NOTE XX ; Start 07/28/16 at 09:00 Glucose (Glutose) 15 gm Q15M PRN PO DECREASED GLUCOSE; Start 07/28/16 at 09:00 Glucose (Glutose) 22.5 gm Q15M PRN PO DECREASED GLUCOSE; Start 07/28/16 at 09: 00 Dextrose (D50w Syringe) 25 ml Q15M PRN IV DECREASED GLUCOSE; Start 07/28/16 at 09:00 Dextrose (D50w Syringe) 50 ml Q15M PRN IV DECREASED GLUCOSE; Start 07/28/16 at 09:00 Glucagon (Glucagen) 1 mg Q15M PRN IM DECREASED GLUCOSE; Start 07/28/16 at 09:00 Glucose (Glutose) 15 gm Q15M PRN BUCCAL DECREASED GLUCOSE; Start 07/28/16 at 09 :00 Diagnostic Test (Pha) (Accucheck) 1 ea Q1H XX Last administered on 07/30/16 07 :00; Admin Dose 1 EA; Start 07/28/16 at 10:00 Dextrose (D50w Syringe) 25 ml Q15M PRN IV Till BS 80 mg/dL or above x2; Start 07/28/16 at 10:00 Dextrose 50 ml 50 ml Q15M PRN IV Till BS 80 mg/dL or above x2; Start 07/28/16 at 10:00 Levetiracetam/ Sodium Chloride (Keppra Iv/NS) 110 ml @ 420 mls/hr Q12 IVPB Last administered on 07/30/16t 08:58; Admin Dose 420 MLS/HR; Start 07/29/16 at 21:00 IV Flush 10 ml 10 ml PRN PRN IV IV PROTOCOL; Start 07/29/16 at 17:00 Vancomycin HCl/ Sodium Chloride (Vancocin/NS) 250 ml @ 83.333 mls/ hr 13 IVPB Last administered on 07/30/16t 13:49; Admin Dose 83.333 MLS/HR; Start 07/30/16 at 13:00; Stop 07/30/16 at 23:00 Assessment/Plan Additional Assessment/Plan IMPRESSION AND PLAN: 1. s/p Cardiopulmonary arrest. 2. 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 3. End-stage renal failure. 4. No evidence of occlusive lesions on cardiac catheterization. 5. HTN heart Disease 6. Asthma RECS 1. Vent support 2. Daily assessment on mental status 3. EEG. 4. Continue antiepileptics. 5. MRI of brain when stable. 6. Continue hemodialysis with correction of electrolytes. 7. Palliative 35 min cc time KAYLI ROBLES MD Jul 30, 2016 16:20
[2016-07-30] MEDS: LABETALOL HCL 20MG INJ IV PRN ×2 (18:55→21:47)
[2016-07-31] VITALS (72 sets, daily range): BP systolic 75–196; BP diastolic 48–112; PULSE 85–114; RESP 20–40
[2016-07-31] MEDS: CEFEPIME 1GM/50 ML (PMX) 50 ML IVPB SCH (01:00)
[2016-07-31] MEDS: ACCUCHECK XX SCH ×24 (01:00→23:00)
[2016-07-31] MEDS: IPRATROPIUM (HFA) 12.9 GM INHALER INH SCH ×6 (01:14→21:14)
[2016-07-31] MEDS: ALBUTEROL HFA 8 GM INHALER INH SCH ×6 (01:14→21:14)
[2016-07-31] MEDS: PROPOFOL 100 ML IV PRN ×6 (04:07→21:20)
[2016-07-31 04:43] LABS: ALBUMIN 3.2 g/dl (3.3-4.9)
[2016-07-31 04:44] LABS: POTASSIUM 4.8 mmol/L (3.5-5.1)
[2016-07-31 04:46] LABS: ALBUMIN/GLOBULIN RATIO 0.94; CREATININE 10.42 mg/dl (0.61-1.24); TOTAL PROTEIN 6.6 g/dl (6.1-8.1)
[2016-07-31 04:47] LABS: CALCIUM 7.4 mg/dl (8.4-10.2)
[2016-07-31 04:54] LABS: BASOPHIL # 0.1 10^3/ul (0.0-0.1); BASOPHILS % 0.4 % (0.0-2.0); EOSINOPHILS # 0.5 10^3/ul (0.0-0.5); EOSINOPHILS % 4.1 % (0.0-7.0); HEMATOCRIT 32.2 % (42.0-52.0); HEMOGLOBIN 11.2 g/dl (14.0-18.0); LYMPHOCYTES # 1.6 10^3/ul (0.8-2.9); LYMPHOCYTES % 13.6 % (15.0-51.0); MEAN CORPUSCULAR HEMOGLOBIN 31.9 pg (29.0-33.0); MEAN CORPUSCULAR HGB CONC 34.7 g/dl (32.0-37.0); MEAN CORPUSCULAR VOLUME 92.1 fl (82.0-101.0); MONOCYTE # 1.1 10^3/ul (0.3-0.9); MONOCYTES % 9.3 % (0.0-11.0); NEUTROPHIL # 8.7 10^3/ul (1.6-7.5); NEUTROPHILS % 72.6 % (39.0-77.0); PLATELET COUNT 182 10^3/UL (140-440); RED CELL DISTRIBUTION WIDTH 15.7 % (11.5-14.5)
[2016-07-31 04:55] LABS: CONDITION 1; LH ANALYZER COMMENTS 1
[2016-07-31 05:32] LABS: AADO2 Arterial 120.9 mmHg (7.0-24.0); Allen Test ACCEPTAB; Arterial Base Excess -2.1 mmol/L (-3.0-3); Arterial COHb 0.1 % (0.0-3.0); Arterial Fraction of Oxyhgb 94.2 % (93.0-99.0); Arterial HCO3 23.4 mmol/L (22.0-26.0); Arterial MetHb 0.3 % (0.0-1.5); MODE VENT - AC
[2016-07-31] MEDS: LABETALOL HCL 20MG INJ IV PRN (07:01)
--- NOTE | 2016-07-31 07:23 | PN ---
Date/Time of Note Date/Time of Note DATE: 07/31/16 TIME: 07:20 Assessment/Plan VTE Prophylaxis VTE Prophylaxis Intervention: other Lines/Catheters IV Catheter Type (from [facility]): PICC Line Central line still needed: Yes Urinary Cath still in place: Yes Reason Cath still needed: urinary retention (Critical state) Assessment/Plan Problems: (1) Type 2 diabetes mellitus with hypertension and end stage renal disease on dialysis Status: Chronic Comment: Patient is well controlled on an insulin drip at this time. We can convert over to long-acting insulin for the continuous tube feedings when the patient is somewhat more stable. 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 Pulmonology is involved in the case and will continue work with him I am not sure that he is at a point where he can be successfully extubated as of this moment (3) Respiratory arrest before cardiac arrest Status: Acute Comment: He remains on full support at this time. Please note is not on pressors and actually his hypertension is coming back. Given the echocardiogram going diastolic showing diastolic dysfunction we will go with using a cardioselective beta-demian and stop using the labetalol (4) Anoxic encephalopathy Status: Acute Comment: He was admitted after his arrest the evening of the . This would make hospital day 5 but essentially 4-1/2 days since the event. His neurologic status is not perking up and I am concerned that we may have a really significant long-term injury neurology is following Subjective 24 Hr Interval Summary Free Text/Dictation Intubated on lower dose propofol nonresponsive Subjective hx not possible: pt non-verbal, pt critical status Exam/Review of Systems Vital Signs Vitals Vital Signs Date Time Temp Pulse Resp B/P Pulse Ox O2 Delivery O2 Flow Rate FiO2 07/31/16 06:30 103 20 169/71 96 Mechanical Ventilator 07/31/16 05:11 35 07/31/16 04:00 99.2 Intake and Output 07/30/16 07/30/16 07/31/16 15:00 23:00 07:00 Intake Total 242 ml 461 ml 543 ml Output Total 125 ml 40 ml 55 ml Balance 117 ml 421 ml 488 ml Exam Constitutional: non-verbal Respiratory: wheezing Cardiovascular: nl pulses, regular rate and rhythm Gastrointestinal: nl liver, spleen, non-tender, soft Results Result Diagram: 07/31/16 0330 07/31/16 0330 Results 24 hrs Laboratory Tests Test 07/30/16 08:38 07/30/16 09:30 07/30/16 10:34 07/30/16 11:36 Bedside Glucose 169 175 156 144 Test 07/30/16 12:23 07/30/16 13:24 07/30/16 15:14 07/30/16 16:00 Bedside Glucose 150 174 177 180 Test 07/30/16 17:23 07/30/16 18:24 07/30/16 18:56 07/30/16 20:06 Bedside Glucose 147 150 143 141 Test 07/30/16 21:05 07/30/16 22:12 07/30/16 23:26 07/31/16 00:37 Bedside Glucose 174 151 159 159 Test 07/31/16 01:29 07/31/16 03:30 07/31/16 03:50 07/31/16 04:54 Bedside Glucose 132 157 145 Alanine Aminotransferase (ALT/SGPT) 75 H Albumin 3.2 L Albumin/Globulin Ratio 0.94 Alkaline Phosphatase 106 Anion Gap 25 H Aspartate Amino Transf (AST/SGOT) 98 #H Basophils # 0.1 Basophils % 0.4 Blood Morphology Comment Blood Urea Nitrogen 68 H Calcium Level 7.4 L Carbon Dioxide Level 23 Chloride Level 97 Creatinine 10.42 #H Direct Bilirubin 0.00 Eosinophils # 0.5 Eosinophils % 4.1 Globulin 3.40 H Glucose Level 126 Hematocrit 32.2 L Hemoglobin 11.2 L Indirect Bilirubin 0.0 Lactic Acid Level 1.1 Lymphocytes # 1.6 Lymphocytes % 13.6 L Mean Corpuscular Hemoglobin 31.9 Mean Corpuscular Hemoglobin Concent 34.7 Mean Corpuscular Volume 92.1 Mean Platelet Volume 9.0 Monocytes # 1.1 H Monocytes % 9.3 Neutrophils # 8.7 H Neutrophils % 72.6 Nucleated Red Blood Cells # 0.0 Nucleated Red Blood Cells % 0.0 Platelet Count 182 Potassium Level 4.8 Red Blood Count 3.50 L Red Cell Distribution Width 15.7 H Sodium Level 140 Total Bilirubin 0.0 L Total Protein 6.6 White Blood Count 12.0 H Test 07/31/16 05:00 Arterial Blood HCO3 23.4 Arterial Blood Base Excess -2.1 Arterial Blood Oxygen Saturation 94.6 L Osiel Test ACCEPTAB Arterial Blood Gas Puncture Site Right Radial Arterial Blood Carboxyhemoglobin 0.1 Arterial Blood Date Drawn 07/31/2016 5:20:40 AM Arterial Blood Methemoglobin 0.3 Arterial Blood pCO2 (Temp correct) 42.9 Arterial Blood pH (Temp corrected) 7.354 Arterial Blood pO2 (Temp corrected) 78.8 L Blood Gas A-a O2 Differential 120.9 H Blood Gas Actual Respiration Rate 26 Blood Gas Low PEEP Setting 5.0 Blood Gas Modality VENT - AC Blood Gas Notified Time 07/31/2016 5:31:53 AM Blood Gas Notified Whom UP Blood Gas Respiration Rate 24.0 Blood Gas Specimen Source Blood arterial Blood Gas Temperature 37.0 Blood Gas Tidal Volume 550.0 FiO2 35.0 Oxyhemoglobin Percent 94.2 Total Hemoglobin 12.0 Medications Medications Current Medications Norepinephrine 16 mg/Dextrose 500 ml @ 1.87 mls/hr TITRATE IV Last administered on 07/28/16 21:18; Admin Dose 11.25 MLS/HR; Start 07/28/16 at 04: 00 Cefepime HCl (Maxipime 1gm/50 ml (Pmx)) 50 ml @ 100 mls/hr Q24H IVPB Last administered on 07/31/16 01:00; Admin Dose 100 MLS/HR; Start 07/28/16 at 01:00 Labetalol HCl 10 mg 10 mg Q6H PRN IV sbp > 160 Last administered on 07/31/16 07:01; Admin Dose 10 MG; Start 07/28/16 at 00:30 Propofol (Diprivan) 100 ml @ 3.609 mls/ hr Q12H PRN IV SEDATION Last administered on 07/31/16 06:15; Admin Dose 14.42 MLS/HR; Start 07/28/16 at 02: 30 Acetaminophen (Tylenol Supp) 650 mg Q6H PRN [place] PAIN AND OR ELEVATED TEMP Last administered on 07/30/16 01:59; Admin Dose 650 MG; Start 07/28/16 at 08:30 Miscellaneous Information 1 ea NOTE XX ; Start 07/28/16 at 09:00 Glucose (Glutose) 15 gm Q15M PRN PO DECREASED GLUCOSE; Start 07/28/16 at 09:00 Glucose (Glutose) 22.5 gm Q15M PRN PO DECREASED GLUCOSE; Start 07/28/16 at 09: 00 Dextrose (D50w Syringe) 25 ml Q15M PRN IV DECREASED GLUCOSE; Start 07/28/16 at 09:00 Dextrose (D50w Syringe) 50 ml Q15M PRN IV DECREASED GLUCOSE; Start 07/28/16 at 09:00 Glucagon (Glucagen) 1 mg Q15M PRN IM DECREASED GLUCOSE; Start 07/28/16 at 09:00 Glucose (Glutose) 15 gm Q15M PRN BUCCAL DECREASED GLUCOSE; Start 07/28/16 at 09 :00 Diagnostic Test (Pha) (Accucheck) 1 ea Q1H XX Last administered on 07/30/16 07 :00; Admin Dose 1 EA; Start 07/28/16 at 10:00 Dextrose (D50w Syringe) 25 ml Q15M PRN IV Till BS 80 mg/dL or above x2; Start 07/28/16 at 10:00 Dextrose 50 ml 50 ml Q15M PRN IV Till BS 80 mg/dL or above x2; Start 07/28/16 at 10:00 Levetiracetam/ Sodium Chloride (Keppra Iv/NS) 110 ml @ 420 mls/hr Q12 IVPB Last administered on 07/30/16 21:13; Admin Dose 420 MLS/HR; Start 07/29/16 at 21:00 IV Flush (NS 10 ml) 10 ml PRN PRN IV IV PROTOCOL; Start 07/29/16 at 17:00 LOPEZ LOW MD Jul 31, 2016 07:23
[2016-07-31] MEDS: METOPROLOL 25 MG TAB NGT SCH ×2 (08:14→20:14)
[2016-07-31] MEDS: LEVETIRACETAM IV 1,000 MG in SOD CHLORIDE 0.9% 100 ML IVPB SCH ×2 (08:15→20:14)
[2016-07-31] MEDS: INSULIN REGULAR, HUMAN 100 UNIT in SOD CHLORIDE 0.9% 99 ML IV SCH ×6 (08:31→22:40)
--- NOTE | 2016-07-31 10:52 | RADRPT ---
PROCEDURE: XR Chest. CLINICAL INDICATION: CHF TECHNIQUE: Single AP portable chest COMPARISON: 07/30/2016 FINDINGS: The cardiac silhouette is mildly enlarged. Stable position of support devices. No significant inte rval change in right lower lobe hazy opacity. Atelectasis versus infiltrate. The lungs are otherwi se clear without pleural effusion or focal consolidation. No pneumothorax. The osseous structures and soft tissues are unremarkable. IMPRESSION: 1. Persistent right lower lobe airspace opacity. No interval change.. RPTAT:AAJJ Remington Bateman Physician Date Time Electronically viewed and signed by Physician Yaakov on 07/31/2016 10:52 DAVID/
[2016-07-31] MEDS: morphine 2 MG INJ IV PRN (12:00)
[2016-07-31] MEDS ORDERED: METHYLPREDNISOLONE 125 MG INJ IV ONE (12:00)
--- NOTE | 2016-07-31 12:47 | CONS ---
Date/Time of Note Date/Time of Note DATE: 07/31/16 TIME: 12:45 Assessment/Plan Assessment/Plan Chief Complaint/Hosp Course PEA Problems: Additional Assessment/Plan 56 year old M with hx of ESRD, HTN, DM, Asthma began experiencing SOB suffered PEA arrest with ROSC for 20 mins, STEMI s/p cardiac catheterization with no intervention with possible seizure activity vs. post anoxic myoclonus. EEG showed burst suppression pattern suggesting severe encephalopathy with seizure activity. CT brain showed nothing acute. Examination showed positive corneals, pupillary reflexes and gag reflex. PLAN: -continue Keppra 1000 mg q12h -taper away sedation -prognosis poor -will follow Consultation Date/Type/Reason Admit Date/Time Jul 27, 2016 at 23:29 Initial Consult Date 07/28/16 Type of Consultation: Pulm 24 HR Interval Summary Free Text/Dictation Unchanged clinically Exam/Review of Systems Vital Signs Vitals Vital Signs Date Time Temp Pulse Resp B/P Pulse Ox O2 Delivery O2 Flow Rate FiO2 07/31/16 12:19 102 28 07/31/16 12:02 99 35 07/31/16 09:30 170/73 07/31/16 09:00 Mechanical Ventilator 07/31/16 08:00 101.0 Intake and Output 07/30/16 07/30/16 07/31/16 15:00 23:00 07:00 Intake Total 242 ml 461 ml 543 ml Output Total 125 ml 40 ml 55 ml Balance 117 ml 421 ml 488 ml Exam Constitutional: other (comatose) Head: atraumatic, normocephalic Eyes: EOMI, nl conjunctiva, nl lids ENMT: nl external ears & nose, nl lips & teeth, nl nasal mucosa & septum Neck: non-tender, supple Respiratory: normal air movement Cardiovascular: nl pulses, regular rate and rhythm Extremities: normal pulses Neurological: other (Intubated, ventilated, sedated, positive corneal and gag,) Results Result Diagram: 07/31/16 0330 07/31/16 0330 Results 24 hrs Laboratory Tests Test 07/30/16 13:24 07/30/16 15:14 07/30/16 16:00 07/30/16 17:23 Bedside Glucose 174 177 180 147 Test 07/30/16 18:24 07/30/16 18:56 07/30/16 20:06 07/30/16 21:05 Bedside Glucose 150 143 141 174 Test 07/30/16 22:12 07/30/16 23:26 07/31/16 00:37 07/31/16 01:29 Bedside Glucose 151 159 159 132 Test 07/31/16 03:30 07/31/16 03:50 07/31/16 04:54 07/31/16 05:00 Alanine Aminotransferase (ALT/SGPT) 75 H Albumin 3.2 L Albumin/Globulin Ratio 0.94 Alkaline Phosphatase 106 Anion Gap 25 H Aspartate Amino Transf (AST/SGOT) 98 #H Basophils # 0.1 Basophils % 0.4 Blood Morphology Comment Blood Urea Nitrogen 68 H Calcium Level 7.4 L Carbon Dioxide Level 23 Chloride Level 97 Creatinine 10.42 #H Direct Bilirubin 0.00 Eosinophils # 0.5 Eosinophils % 4.1 Globulin 3.40 H Glucose Level 126 Hematocrit 32.2 L Hemoglobin 11.2 L Indirect Bilirubin 0.0 Lactic Acid Level 1.1 Lymphocytes # 1.6 Lymphocytes % 13.6 L Mean Corpuscular Hemoglobin 31.9 Mean Corpuscular Hemoglobin Concent 34.7 Mean Corpuscular Volume 92.1 Mean Platelet Volume 9.0 Monocytes # 1.1 H Monocytes % 9.3 Neutrophils # 8.7 H Neutrophils % 72.6 Nucleated Red Blood Cells # 0.0 Nucleated Red Blood Cells % 0.0 Platelet Count 182 Potassium Level 4.8 Red Blood Count 3.50 L Red Cell Distribution Width 15.7 H Sodium Level 140 Total Bilirubin 0.0 L Total Protein 6.6 White Blood Count 12.0 H Bedside Glucose 157 145 Arterial Blood HCO3 23.4 Arterial Blood Base Excess -2.1 Arterial Blood Oxygen Saturation 94.6 L Osiel Test ACCEPTAB Arterial Blood Gas Puncture Site Right Radial Arterial Blood Carboxyhemoglobin 0.1 Arterial Blood Date Drawn 07/31/2016 5:20:40 AM Arterial Blood Methemoglobin 0.3 Arterial Blood pCO2 (Temp correct) 42.9 Arterial Blood pH (Temp corrected) 7.354 Arterial Blood pO2 (Temp corrected) 78.8 L Blood Gas A-a O2 Differential 120.9 H Blood Gas Actual Respiration Rate 26 Blood Gas Low PEEP Setting 5.0 Blood Gas Modality VENT - AC Blood Gas Notified Time 07/31/2016 5:31:53 AM Blood Gas Notified Whom UP Blood Gas Respiration Rate 24.0 Blood Gas Specimen Source Blood arterial Blood Gas Temperature 37.0 Blood Gas Tidal Volume 550.0 FiO2 35.0 Oxyhemoglobin Percent 94.2 Total Hemoglobin 12.0 Test 07/31/16 08:13 07/31/16 09:01 07/31/16 10:02 07/31/16 11:10 Bedside Glucose 204 209 186 150 Test 07/31/16 12:07 Bedside Glucose 150 Medications Medications Current Medications Norepinephrine 16 mg/Dextrose 500 ml @ 1.87 mls/hr TITRATE IV Last administered on 07/28/16 21:18; Admin Dose 11.25 MLS/HR; Start 07/28/16 at 04: 00 Cefepime HCl (Maxipime 1gm/50 ml (Pmx)) 50 ml @ 100 mls/hr Q24H IVPB Last administered on 07/31/16 01:00; Admin Dose 100 MLS/HR; Start 07/28/16 at 01:00 Labetalol HCl 10 mg 10 mg Q6H PRN IV sbp > 160 Last administered on 07/31/16 07:01; Admin Dose 10 MG; Start 07/28/16 at 00:30 Propofol (Diprivan) 100 ml @ 3.609 mls/ hr Q12H PRN IV SEDATION Last administered on 07/31/16 09:21; Admin Dose 21.654 MLS/HR; Start 07/28/16 at 02: 30 Acetaminophen (Tylenol Supp) 650 mg Q6H PRN [place] PAIN AND OR ELEVATED TEMP Last administered on 07/30/16 01:59; Admin Dose 650 MG; Start 07/28/16 at 08:30 Miscellaneous Information 1 ea NOTE XX ; Start 07/28/16 at 09:00 Glucose (Glutose) 15 gm Q15M PRN PO DECREASED GLUCOSE; Start 07/28/16 at 09:00 Glucose (Glutose) 22.5 gm Q15M PRN PO DECREASED GLUCOSE; Start 07/28/16 at 09: 00 Dextrose (D50w Syringe) 25 ml Q15M PRN IV DECREASED GLUCOSE; Start 07/28/16 at 09:00 Dextrose (D50w Syringe) 50 ml Q15M PRN IV DECREASED GLUCOSE; Start 07/28/16 at 09:00 Glucagon (Glucagen) 1 mg Q15M PRN IM DECREASED GLUCOSE; Start 07/28/16 at 09:00 Glucose (Glutose) 15 gm Q15M PRN BUCCAL DECREASED GLUCOSE; Start 07/28/16 at 09 :00 Diagnostic Test (Pha) (Accucheck) 1 ea Q1H XX Last administered on 07/30/16 07 :00; Admin Dose 1 EA; Start 07/28/16 at 10:00 Dextrose (D50w Syringe) 25 ml Q15M PRN IV Till BS 80 mg/dL or above x2; Start 07/28/16 at 10:00 Dextrose 50 ml 50 ml Q15M PRN IV Till BS 80 mg/dL or above x2; Start 07/28/16 at 10:00 Levetiracetam/ Sodium Chloride (Keppra Iv/NS) 110 ml @ 420 mls/hr Q12 IVPB Last administered on 07/31/16 08:15; Admin Dose 420 MLS/HR; Start 07/29/16 at 21:00 IV Flush (NS 10 ml) 10 ml PRN PRN IV IV PROTOCOL; Start 07/29/16 at 17:00 Metoprolol Tartrate (Lopressor) 25 mg BID NGT Last administered on 07/31/16 08 :14; Admin Dose 25 MG; Start 07/31/16 at 09:00 Morphine Sulfate (morphine) 2 mg Q4 PRN IV PAIN Last administered on 07/31/16 12:00; Admin Dose 2 MG; Start 07/31/16 at 12:00 Methylprednisolone Sodium Succinate (Solu-Medrol) 60 mg Q12 IV ; Start 07/31/16 at 21:00 DANIEL KENNEDY MD Jul 31, 2016 12:47
--- NOTE | 2016-07-31 14:11 | CONS ---
Date/Time of Note Date/Time of Note DATE: 07/31/16 TIME: 14:06 Assessment/Plan Assessment/Plan Additional Assessment/Plan 1. PEA s/p cardiac arrest with ROSC - Etiology of PEA likely 2/[address] Brain shows no CVA. LHC - negative for coronary artery disease. echo ef wnl. remains poorly responsive and very agitated with sedation breaks 2. ESRD on HD - s/p hd this am with 2.4 l removed. hd in am 3. SIRS with elevated white count and fever-likely reactive vs PNA - on abx and now on steroids due to ongoing fever and detriorating resp status 4. VDRF -pulm consult appreciated, wean off vent as tolerated 5. Hypotension - cardiac shock vs septic shock : off pressors 6. CHF - acute - diastolic dysfunction - fluid to be removed via dialysis - monitor I/O's. improving 7. Essential hypertension - hold medications as patient is hypotensive 8. Type II DM - uncontrolled, check Hgba1c, ISS, lantus 9-encephalopathy: suspect anoxic due to cardiac arrest +/- sezures. on keppra prognosis poor. dw daughter Consultation Date/Type/Reason Admit Date/Time Jul 27, 2016 at 23:29 Initial Consult Date 07/28/16 Type of Consultation: Pulm 24 HR Interval Summary Free Text/Dictation remains unresponsive. very agitated with sedation break. fever and increased whezzes and secretions. had hd this am with 2.4 l removed. not on pressors Exam/Review of Systems Vital Signs Vitals Vital Signs Date Time Temp Pulse Resp B/P Pulse Ox O2 Delivery O2 Flow Rate FiO2 07/31/16 12:19 102 28 07/31/16 12:02 99 35 07/31/16 09:30 170/73 07/31/16 09:00 Mechanical Ventilator 07/31/16 08:00 101.0 Intake and Output 07/30/16 07/30/16 07/31/16 15:00 23:00 07:00 Intake Total 242 ml 461 ml 543 ml Output Total 125 ml 40 ml 55 ml Balance 117 ml 421 ml 488 ml Exam Constitutional: non-verbal (orally intubated) Head: atraumatic, normocephalic Eyes: nl conjunctiva Neck: jvd, non-tender, supple Respiratory: congested cough, crackles/rales, diminished breath sounds Cardiovascular: edema Gastrointestinal: non-tender, soft Results Result Diagram: 07/31/16 0330 07/31/16 0330 Results 24 hrs Laboratory Tests Test 07/30/16 15:14 07/30/16 16:00 07/30/16 17:23 07/30/16 18:24 Bedside Glucose 177 180 147 150 Test 07/30/16 18:56 07/30/16 20:06 07/30/16 21:05 07/30/16 22:12 Bedside Glucose 143 141 174 151 Test 07/30/16 23:26 07/31/16 00:37 07/31/16 01:29 07/31/16 03:30 Bedside Glucose 159 159 132 Alanine Aminotransferase (ALT/SGPT) 75 H Albumin 3.2 L Albumin/Globulin Ratio 0.94 Alkaline Phosphatase 106 Anion Gap 25 H Aspartate Amino Transf (AST/SGOT) 98 #H Basophils # 0.1 Basophils % 0.4 Blood Morphology Comment Blood Urea Nitrogen 68 H Calcium Level 7.4 L Carbon Dioxide Level 23 Chloride Level 97 Creatinine 10.42 #H Direct Bilirubin 0.00 Eosinophils # 0.5 Eosinophils % 4.1 Globulin 3.40 H Glucose Level 126 Hematocrit 32.2 L Hemoglobin 11.2 L Indirect Bilirubin 0.0 Lactic Acid Level 1.1 Lymphocytes # 1.6 Lymphocytes % 13.6 L Mean Corpuscular Hemoglobin 31.9 Mean Corpuscular Hemoglobin Concent 34.7 Mean Corpuscular Volume 92.1 Mean Platelet Volume 9.0 Monocytes # 1.1 H Monocytes % 9.3 Neutrophils # 8.7 H Neutrophils % 72.6 Nucleated Red Blood Cells # 0.0 Nucleated Red Blood Cells % 0.0 Platelet Count 182 Potassium Level 4.8 Red Blood Count 3.50 L Red Cell Distribution Width 15.7 H Sodium Level 140 Total Bilirubin 0.0 L Total Protein 6.6 White Blood Count 12.0 H Test 07/31/16 03:50 07/31/16 04:54 07/31/16 05:00 07/31/16 08:13 Bedside Glucose 157 145 204 Arterial Blood HCO3 23.4 Arterial Blood Base Excess -2.1 Arterial Blood Oxygen Saturation 94.6 L Osiel Test ACCEPTAB Arterial Blood Gas Puncture Site Right Radial Arterial Blood Carboxyhemoglobin 0.1 Arterial Blood Date Drawn 07/31/2016 5:20:40 AM Arterial Blood Methemoglobin 0.3 Arterial Blood pCO2 (Temp correct) 42.9 Arterial Blood pH (Temp corrected) 7.354 Arterial Blood pO2 (Temp corrected) 78.8 L Blood Gas A-a O2 Differential 120.9 H Blood Gas Actual Respiration Rate 26 Blood Gas Low PEEP Setting 5.0 Blood Gas Modality VENT - AC Blood Gas Notified Time 07/31/2016 5:31:53 AM Blood Gas Notified Whom UP Blood Gas Respiration Rate 24.0 Blood Gas Specimen Source Blood arterial Blood Gas Temperature 37.0 Blood Gas Tidal Volume 550.0 FiO2 35.0 Oxyhemoglobin Percent 94.2 Total Hemoglobin 12.0 Test 07/31/16 09:01 07/31/16 10:02 07/31/16 11:10 07/31/16 12:07 Bedside Glucose 209 186 150 150 Test 07/31/16 13:59 Bedside Glucose 143 Medications Medications Current Medications Norepinephrine 16 mg/Dextrose 500 ml @ 1.87 mls/hr TITRATE IV Last administered on 07/28/16 21:18; Admin Dose 11.25 MLS/HR; Start 07/28/16 at 04: 00 Cefepime HCl (Maxipime 1gm/50 ml (Pmx)) 50 ml @ 100 mls/hr Q24H IVPB Last administered on 07/31/16 01:00; Admin Dose 100 MLS/HR; Start 07/28/16 at 01:00 Labetalol HCl 10 mg 10 mg Q6H PRN IV sbp > 160 Last administered on 07/31/16 07:01; Admin Dose 10 MG; Start 07/28/16 at 00:30 Propofol (Diprivan) 100 ml @ 3.609 mls/ hr Q12H PRN IV SEDATION Last administered on 07/31/16 13:47; Admin Dose 21.654 MLS/HR; Start 07/28/16 at 02: 30 Acetaminophen (Tylenol Supp) 650 mg Q6H PRN [place] PAIN AND OR ELEVATED TEMP Last administered on 07/30/16 01:59; Admin Dose 650 MG; Start 07/28/16 at 08:30 Miscellaneous Information 1 ea NOTE XX ; Start 07/28/16 at 09:00 Glucose (Glutose) 15 gm Q15M PRN PO DECREASED GLUCOSE; Start 07/28/16 at 09:00 Glucose (Glutose) 22.5 gm Q15M PRN PO DECREASED GLUCOSE; Start 07/28/16 at 09: 00 Dextrose (D50w Syringe) 25 ml Q15M PRN IV DECREASED GLUCOSE; Start 07/28/16 at 09:00 Dextrose (D50w Syringe) 50 ml Q15M PRN IV DECREASED GLUCOSE; Start 07/28/16 at 09:00 Glucagon (Glucagen) 1 mg Q15M PRN IM DECREASED GLUCOSE; Start 07/28/16 at 09:00 Glucose (Glutose) 15 gm Q15M PRN BUCCAL DECREASED GLUCOSE; Start 07/28/16 at 09 :00 Diagnostic Test (Pha) (Accucheck) 1 ea Q1H XX Last administered on 07/30/16 07 :00; Admin Dose 1 EA; Start 07/28/16 at 10:00 Dextrose (D50w Syringe) 25 ml Q15M PRN IV Till BS 80 mg/dL or above x2; Start 07/28/16 at 10:00 Dextrose 50 ml 50 ml Q15M PRN IV Till BS 80 mg/dL or above x2; Start 07/28/16 at 10:00 Levetiracetam/ Sodium Chloride (Keppra Iv/NS) 110 ml @ 420 mls/hr Q12 IVPB Last administered on 07/31/16 08:15; Admin Dose 420 MLS/HR; Start 07/29/16 at 21:00 IV Flush (NS 10 ml) 10 ml PRN PRN IV IV PROTOCOL; Start 07/29/16 at 17:00 Metoprolol Tartrate (Lopressor) 25 mg BID NGT Last administered on 07/31/16 08 :14; Admin Dose 25 MG; Start 07/31/16 at 09:00 Morphine Sulfate (morphine) 2 mg Q4 PRN IV PAIN Last administered on 07/31/16 12:00; Admin Dose 2 MG; Start 07/31/16 at 12:00 Methylprednisolone Sodium Succinate (Solu-Medrol) 60 mg Q12 IV ; Start 07/31/16 at 21:00 JANINA PENG MD Jul 31, 2016 14:11
--- NOTE | 2016-07-31 16:08 | CONS ---
Date/Time of Note Date/Time of Note DATE: 07/31/16 TIME: 16:05 Consult Date/Type/Reason Admit Date/Time Jul 27, 2016 at 23:29 Initial Consult Date 07/28/16 Type of Consultation: Pulm Subjective Unresponsive on MV. Becomes agitated during sedation holiday, however, does not follow commands. Objective Vital Signs Date Time Temp Pulse Resp B/P Pulse Ox O2 Delivery O2 Flow Rate FiO2 07/31/16 14:30 95 28 140/76 97 07/31/16 14:00 Mechanical Ventilator 07/31/16 12:02 35 07/31/16 12:00 99.9 Intake and Output 07/30/16 07/30/16 07/31/16 15:00 23:00 07:00 Intake Total 242 ml 461 ml 573 ml Output Total 125 ml 40 ml 55 ml Balance 117 ml 421 ml 518 ml NECK: Supple. No JVD or lymphadenopathy. CARDIAC: S1, S2, no added sounds or murmurs. CHEST: Scattered wheezing ABDOMEN: Soft, nontender. No guarding, no rebound, obese. EXTREMITIES: No cyanosis, clubbing or edema. Results/Medications Result Diagram: 07/31/16 0330 07/31/16 0330 Results 24 hrs Laboratory Tests Test 07/30/16 17:23 07/30/16 18:24 07/30/16 18:56 07/30/16 20:06 Bedside Glucose 147 150 143 141 Test 07/30/16 21:05 07/30/16 22:12 07/30/16 23:26 07/31/16 00:37 Bedside Glucose 174 151 159 159 Test 07/31/16 01:29 07/31/16 03:30 07/31/16 03:50 07/31/16 04:54 Bedside Glucose 132 157 145 Alanine Aminotransferase (ALT/SGPT) 75 H Albumin 3.2 L Albumin/Globulin Ratio 0.94 Alkaline Phosphatase 106 Anion Gap 25 H Aspartate Amino Transf (AST/SGOT) 98 #H Basophils # 0.1 Basophils % 0.4 Blood Morphology Comment Blood Urea Nitrogen 68 H Calcium Level 7.4 L Carbon Dioxide Level 23 Chloride Level 97 Creatinine 10.42 #H Direct Bilirubin 0.00 Eosinophils # 0.5 Eosinophils % 4.1 Globulin 3.40 H Glucose Level 126 Hematocrit 32.2 L Hemoglobin 11.2 L Indirect Bilirubin 0.0 Lactic Acid Level 1.1 Lymphocytes # 1.6 Lymphocytes % 13.6 L Mean Corpuscular Hemoglobin 31.9 Mean Corpuscular Hemoglobin Concent 34.7 Mean Corpuscular Volume 92.1 Mean Platelet Volume 9.0 Monocytes # 1.1 H Monocytes % 9.3 Neutrophils # 8.7 H Neutrophils % 72.6 Nucleated Red Blood Cells # 0.0 Nucleated Red Blood Cells % 0.0 Platelet Count 182 Potassium Level 4.8 Red Blood Count 3.50 L Red Cell Distribution Width 15.7 H Sodium Level 140 Total Bilirubin 0.0 L Total Protein 6.6 White Blood Count 12.0 H Test 07/31/16 05:00 07/31/16 08:13 07/31/16 09:01 07/31/16 10:02 Arterial Blood HCO3 23.4 Arterial Blood Base Excess -2.1 Arterial Blood Oxygen Saturation 94.6 L Osiel Test ACCEPTAB Arterial Blood Gas Puncture Site Right Radial Arterial Blood Carboxyhemoglobin 0.1 Arterial Blood Date Drawn 07/31/2016 5:20:40 AM Arterial Blood Methemoglobin 0.3 Arterial Blood pCO2 (Temp correct) 42.9 Arterial Blood pH (Temp corrected) 7.354 Arterial Blood pO2 (Temp corrected) 78.8 L Blood Gas A-a O2 Differential 120.9 H Blood Gas Actual Respiration Rate 26 Blood Gas Low PEEP Setting 5.0 Blood Gas Modality VENT - AC Blood Gas Notified Time 07/31/2016 5:31:53 AM Blood Gas Notified Whom UP Blood Gas Respiration Rate 24.0 Blood Gas Specimen Source Blood arterial Blood Gas Temperature 37.0 Blood Gas Tidal Volume 550.0 FiO2 35.0 Oxyhemoglobin Percent 94.2 Total Hemoglobin 12.0 Bedside Glucose 204 209 186 Test 07/31/16 11:10 07/31/16 12:07 07/31/16 13:59 07/31/16 15:04 Bedside Glucose 150 150 143 170 Medications Current Medications Norepinephrine 16 mg/Dextrose 500 ml @ 1.87 mls/hr TITRATE IV Last administered on 07/28/16 21:18; Admin Dose 11.25 MLS/HR; Start 07/28/16 at 04: 00 Cefepime HCl (Maxipime 1gm/50 ml (Pmx)) 50 ml @ 100 mls/hr Q24H IVPB Last administered on 07/31/16 01:00; Admin Dose 100 MLS/HR; Start 07/28/16 at 01:00 Labetalol HCl 10 mg 10 mg Q6H PRN IV sbp > 160 Last administered on 07/31/16 07:01; Admin Dose 10 MG; Start 07/28/16 at 00:30 Propofol (Diprivan) 100 ml @ 3.609 mls/ hr Q12H PRN IV SEDATION Last administered on 07/31/16 13:47; Admin Dose 21.654 MLS/HR; Start 07/28/16 at 02: 30 Acetaminophen (Tylenol Supp) 650 mg Q6H PRN [place] PAIN AND OR ELEVATED TEMP Last administered on 07/30/16 01:59; Admin Dose 650 MG; Start 07/28/16 at 08:30 Miscellaneous Information 1 ea NOTE XX ; Start 07/28/16 at 09:00 Glucose (Glutose) 15 gm Q15M PRN PO DECREASED GLUCOSE; Start 07/28/16 at 09:00 Glucose (Glutose) 22.5 gm Q15M PRN PO DECREASED GLUCOSE; Start 07/28/16 at 09: 00 Dextrose (D50w Syringe) 25 ml Q15M PRN IV DECREASED GLUCOSE; Start 07/28/16 at 09:00 Dextrose (D50w Syringe) 50 ml Q15M PRN IV DECREASED GLUCOSE; Start 07/28/16 at 09:00 Glucagon (Glucagen) 1 mg Q15M PRN IM DECREASED GLUCOSE; Start 07/28/16 at 09:00 Glucose (Glutose) 15 gm Q15M PRN BUCCAL DECREASED GLUCOSE; Start 07/28/16 at 09 :00 Diagnostic Test (Pha) (Accucheck) 1 ea Q1H XX Last administered on 07/30/16 07 :00; Admin Dose 1 EA; Start 07/28/16 at 10:00 Dextrose (D50w Syringe) 25 ml Q15M PRN IV Till BS 80 mg/dL or above x2; Start 07/28/16 at 10:00 Dextrose 50 ml 50 ml Q15M PRN IV Till BS 80 mg/dL or above x2; Start 07/28/16 at 10:00 Levetiracetam/ Sodium Chloride (Keppra Iv/NS) 110 ml @ 420 mls/hr Q12 IVPB Last administered on 07/31/16 08:15; Admin Dose 420 MLS/HR; Start 07/29/16 at 21:00 IV Flush (NS 10 ml) 10 ml PRN PRN IV IV PROTOCOL; Start 07/29/16 at 17:00 Metoprolol Tartrate (Lopressor) 25 mg BID NGT Last administered on 07/31/16 08 :14; Admin Dose 25 MG; Start 07/31/16 at 09:00 Morphine Sulfate (morphine) 2 mg Q4 PRN IV PAIN Last administered on 07/31/16 12:00; Admin Dose 2 MG; Start 07/31/16 at 12:00 Methylprednisolone Sodium Succinate (Solu-Medrol) 60 mg Q12 IV ; Start 07/31/16 at 21:00 Assessment/Plan Additional Assessment/Plan IMPRESSION: 1. s/p Cardiopulmonary arrest. 2. 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 3. End-stage renal failure. 4. No evidence of occlusive lesions on cardiac catheterization. 5. HTN heart Disease 6. Asthma RECS 1. Vent support 2. Daily assessment of mental status 3. EEG. 4. Continue antiepileptics. 5. MRI of brain when stable. 6. Continue hemodialysis with correction of electrolytes. 7. Discussed prognosis with family in view of high likelihood of significant anoxic encephalopathy. 35 min cc time KAYLI ROBLES MD Jul 31, 2016 16:08
[2016-07-31] MEDS: ACETAMINOPHEN 650 MG SUPP PR PRN (17:30)
--- NOTE | 2016-07-31 17:35 | CONS ---
Date/Time of Note Date/Time of Note DATE: 07/31/16 TIME: 17:34 Assessment/Plan Assessment/Plan Chief Complaint/Hosp Course Assessment: Status post cardiac arrest - suspect secondary to hypoxia Probable anoxic brain injury with seizure activity End-stage renal disease - on hemodialysis Recommendations: -coronary angiography without significant coronary artery disease -echocardiogram showed LVEF 60% -follow up neurology recommendations Problems: Consultation Date/Type/Reason Admit Date/Time Jul 27, 2016 at 23:29 Initial Consult Date 07/28/16 Type of Consultation: Cardiology 24 HR Interval Summary Free Text/Dictation No significant clinical changes. Detailed Summary Additional Comments Unable to obtain review of systems due to patient's mental status. Exam/Review of Systems Vital Signs Vitals Vital Signs Date Time Temp Pulse Resp B/P Pulse Ox O2 Delivery O2 Flow Rate FiO2 07/31/16 16:30 98 07/31/16 14:30 28 140/76 97 07/31/16 14:00 Mechanical Ventilator 07/31/16 12:02 35 07/31/16 12:00 99.9 Intake and Output 07/30/16 07/30/16 07/31/16 15:00 23:00 07:00 Intake Total 242 ml 461 ml 573 ml Output Total 125 ml 40 ml 55 ml Balance 117 ml 421 ml 518 ml Exam Constitutional: No alert Head: atraumatic, normocephalic ENMT: intubated Neck: No jvd (unable to assess) Respiratory: crackles/rales, diminished breath sounds Cardiovascular: edema (1+), regular rate and rhythm, No systolic murmur Gastrointestinal: non-tender, soft, No distended Extremities: No normal pulses (diminished ) Neurological: No nl mental status, No nl speech Results Result Diagram: 07/31/16 0330 07/31/16 0330 Results 24 hrs Laboratory Tests Test 07/30/16 18:24 07/30/16 18:56 07/30/16 20:06 07/30/16 21:05 Bedside Glucose 150 143 141 174 Test 07/30/16 22:12 07/30/16 23:26 07/31/16 00:37 07/31/16 01:29 Bedside Glucose 151 159 159 132 Test 07/31/16 03:30 07/31/16 03:50 07/31/16 04:54 07/31/16 05:00 Alanine Aminotransferase (ALT/SGPT) 75 H Albumin 3.2 L Albumin/Globulin Ratio 0.94 Alkaline Phosphatase 106 Anion Gap 25 H Aspartate Amino Transf (AST/SGOT) 98 #H Basophils # 0.1 Basophils % 0.4 Blood Morphology Comment Blood Urea Nitrogen 68 H Calcium Level 7.4 L Carbon Dioxide Level 23 Chloride Level 97 Creatinine 10.42 #H Direct Bilirubin 0.00 Eosinophils # 0.5 Eosinophils % 4.1 Globulin 3.40 H Glucose Level 126 Hematocrit 32.2 L Hemoglobin 11.2 L Indirect Bilirubin 0.0 Lactic Acid Level 1.1 Lymphocytes # 1.6 Lymphocytes % 13.6 L Mean Corpuscular Hemoglobin 31.9 Mean Corpuscular Hemoglobin Concent 34.7 Mean Corpuscular Volume 92.1 Mean Platelet Volume 9.0 Monocytes # 1.1 H Monocytes % 9.3 Neutrophils # 8.7 H Neutrophils % 72.6 Nucleated Red Blood Cells # 0.0 Nucleated Red Blood Cells % 0.0 Platelet Count 182 Potassium Level 4.8 Red Blood Count 3.50 L Red Cell Distribution Width 15.7 H Sodium Level 140 Total Bilirubin 0.0 L Total Protein 6.6 White Blood Count 12.0 H Bedside Glucose 157 145 Arterial Blood HCO3 23.4 Arterial Blood Base Excess -2.1 Arterial Blood Oxygen Saturation 94.6 L Osiel Test ACCEPTAB Arterial Blood Gas Puncture Site Right Radial Arterial Blood Carboxyhemoglobin 0.1 Arterial Blood Date Drawn 07/31/2016 5:20:40 AM Arterial Blood Methemoglobin 0.3 Arterial Blood pCO2 (Temp correct) 42.9 Arterial Blood pH (Temp corrected) 7.354 Arterial Blood pO2 (Temp corrected) 78.8 L Blood Gas A-a O2 Differential 120.9 H Blood Gas Actual Respiration Rate 26 Blood Gas Low PEEP Setting 5.0 Blood Gas Modality VENT - AC Blood Gas Notified Time 07/31/2016 5:31:53 AM Blood Gas Notified Whom UP Blood Gas Respiration Rate 24.0 Blood Gas Specimen Source Blood arterial Blood Gas Temperature 37.0 Blood Gas Tidal Volume 550.0 FiO2 35.0 Oxyhemoglobin Percent 94.2 Total Hemoglobin 12.0 Test 07/31/16 08:13 07/31/16 09:01 07/31/16 10:02 07/31/16 11:10 Bedside Glucose 204 209 186 150 Test 07/31/16 12:07 07/31/16 13:59 07/31/16 15:04 07/31/16 16:03 Bedside Glucose 150 143 170 195 Test 07/31/16 17:05 Bedside Glucose 202 Medications Medications Current Medications Norepinephrine 16 mg/Dextrose 500 ml @ 1.87 mls/hr TITRATE IV Last administered on 07/28/16 21:18; Admin Dose 11.25 MLS/HR; Start 07/28/16 at 04: 00 Cefepime HCl (Maxipime 1gm/50 ml (Pmx)) 50 ml @ 100 mls/hr Q24H IVPB Last administered on 07/31/16 01:00; Admin Dose 100 MLS/HR; Start 07/28/16 at 01:00 Labetalol HCl 10 mg 10 mg Q6H PRN IV sbp > 160 Last administered on 07/31/16 07:01; Admin Dose 10 MG; Start 07/28/16 at 00:30 Propofol (Diprivan) 100 ml @ 3.609 mls/ hr Q12H PRN IV SEDATION Last administered on 07/31/16 17:26; Admin Dose 21.654 MLS/HR; Start 07/28/16 at 02: 30 Acetaminophen (Tylenol Supp) 650 mg Q6H PRN [place] PAIN AND [place] ELEVATED TEMP Last administered on 07/30/16 01:59; Admin Dose 650 MG; Start 07/28/16 at 08:30 Miscellaneous Information 1 ea NOTE XX ; Start 07/28/16 at 09:00 Glucose (Glutose) 15 gm Q15M PRN PO DECREASED GLUCOSE; Start 07/28/16 at 09:00 Glucose (Glutose) 22.5 gm Q15M PRN PO DECREASED GLUCOSE; Start 07/28/16 at 09: 00 Dextrose (D50w Syringe) 25 ml Q15M PRN IV DECREASED GLUCOSE; Start 07/28/16 at 09:00 Dextrose (D50w Syringe) 50 ml Q15M PRN IV DECREASED GLUCOSE; Start 07/28/16 at 09:00 Glucagon (Glucagen) 1 mg Q15M PRN IM DECREASED GLUCOSE; Start 07/28/16 at 09:00 Glucose (Glutose) 15 gm Q15M PRN BUCCAL DECREASED GLUCOSE; Start 07/28/16 at 09 :00 Diagnostic Test (Pha) (Accucheck) 1 ea Q1H XX Last administered on 07/30/16 07 :00; Admin Dose 1 EA; Start 07/28/16 at 10:00 Dextrose (D50w Syringe) 25 ml Q15M PRN IV Till BS 80 mg/dL or above x2; Start 07/28/16 at 10:00 Dextrose 50 ml 50 ml Q15M PRN IV Till BS 80 mg/dL or above x2; Start 07/28/16 at 10:00 Levetiracetam/ Sodium Chloride (Keppra Iv/NS) 110 ml @ 420 mls/hr Q12 IVPB Last administered on 07/31/16 08:15; Admin Dose 420 MLS/HR; Start 07/29/16 at 21:00 IV Flush (NS 10 ml) 10 ml PRN PRN IV IV PROTOCOL; Start 07/29/16 at 17:00 Metoprolol Tartrate (Lopressor) 25 mg BID NGT Last administered on 07/31/16 08 :14; Admin Dose 25 MG; Start 07/31/16 at 09:00 Morphine Sulfate (morphine) 2 mg Q4 PRN IV PAIN Last administered on 07/31/16 12:00; Admin Dose 2 MG; Start 07/31/16 at 12:00 Methylprednisolone Sodium Succinate (Solu-Medrol) 60 mg Q12 IV ; Start 07/31/16 at 21:00 TAYLOR WHITNEY MD Jul 31, 2016 17:35
[2016-07-31] MEDS: METHYLPREDNISOLONE 125 MG INJ IV SCH (20:15)
[2016-08-01] VITALS (57 sets, daily range): BP systolic 108–190; BP diastolic 62–88; PULSE 79–103; RESP 18–32
[2016-08-01] MEDS: ACCUCHECK XX SCH ×25 (00:05→23:04)
[2016-08-01] MEDS: CEFEPIME 1GM/50 ML (PMX) 50 ML IVPB SCH (01:00)
[2016-08-01] MEDS: ALBUTEROL HFA 8 GM INHALER INH SCH ×7 (01:05→23:37)
[2016-08-01] MEDS: IPRATROPIUM (HFA) 12.9 GM INHALER INH SCH ×6 (01:06→21:11)
[2016-08-01] MEDS: PROPOFOL 100 ML IV PRN ×5 (03:01→21:17)
[2016-08-01 05:02] LABS: ALBUMIN 3.7 g/dl (3.3-4.9)
[2016-08-01 05:04] LABS: ALBUMIN/GLOBULIN RATIO 0.94; TOTAL PROTEIN 7.6 g/dl (6.1-8.1)
[2016-08-01 05:05] LABS: CALCIUM 7.3 mg/dl (8.4-10.2)
[2016-08-01 05:08] LABS: HEMATOCRIT 30.7 % (42.0-52.0); LYMPHOCYTES # 0.6 10^3/ul (0.8-2.9); LYMPHOCYTES % 5.6 % (15.0-51.0); MEAN CORPUSCULAR HGB CONC 35.9 g/dl (32.0-37.0); MEAN CORPUSCULAR VOLUME 91.8 fl (82.0-101.0); MEAN PLATELET VOLUME 9.5 fl (7.4-10.4); MONOCYTE # 0.5 10^3/ul (0.3-0.9); MONOCYTES % 4.5 % (0.0-11.0); NEUTROPHILS % 89.9 % (39.0-77.0); PLATELET COUNT 214 10^3/UL (140-440); RED BLOOD COUNT 3.34 10^6/ul (4.70-6.10); RED CELL DISTRIBUTION WIDTH 15.8 % (11.5-14.5); UNCORRECTED WBC 11.1 10^3/ul (4.8-10.8); WHITE BLOOD COUNT 11.1 10^3/ul (4.8-10.8)
[2016-08-01 05:12] LABS: CREATININE 8.28 mg/dl (0.61-1.24)
[2016-08-01 05:44] LABS: CONDITION 1; LH ANALYZER COMMENTS 1
--- NOTE | 2016-08-01 08:39 | CONS ---
Date/Time of Note Date/Time of Note DATE: 08/01/16 TIME: 08:32 Assessment/Plan Assessment/Plan Chief Complaint/Hosp Course #1 end-stage renal disease , this patient has ESRD due to diabetic nephropathy and has been on maintenance hemodialysis for about 1 year. He was dialyzed yesterday . I will order dialysis for tomorrow . #2 the patient is status post a cardiac arrest at home #3 altered level of consciousness, probable anoxic encephalopathy. #4 insulin-dependent diabetes mellitus #5 seizures #6 ventilator dependent respiratory failure , h/o COPD and pneumonia on CXR . Problems: Consultation Date/Type/Reason Admit Date/Time Jul 27, 2016 at 23:29 Initial Consult Date 07/28/16 Type of Consultation: renal 24 HR Interval Summary Free Text/Dictation patient is in the ICU on a ventilator Subjective hx not possible: pt non-verbal Exam/Review of Systems Vital Signs Vitals Vital Signs Date Time Temp Pulse Resp B/P Pulse Ox O2 Delivery O2 Flow Rate FiO2 08/01/16 06:00 89 24 134/65 94 Mechanical Ventilator 08/01/16 05:20 35 08/01/16 04:00 99.8 Intake and Output 07/31/16 07/31/16 08/01/16 15:00 23:00 07:00 Intake Total 900 ml 499.254 ml 479.90 ml Output Total 4000 ml 250 ml 100 ml Balance -3100 ml 249.254 ml 379.90 ml Exam Constitutional: non-verbal Head: normocephalic Respiratory: wheezing Cardiovascular: regular rate and rhythm Gastrointestinal: distended, soft Musculoskeletal: nl extremities to inspection Results Result Diagram: 08/01/16 0400 08/01/16 0400 Results 24 hrs Laboratory Tests Test 07/31/16 09:01 07/31/16 10:02 07/31/16 11:10 07/31/16 12:07 Bedside Glucose 209 186 150 150 Test 07/31/16 13:59 07/31/16 15:04 07/31/16 16:03 07/31/16 17:05 Bedside Glucose 143 170 195 202 Test 07/31/16 17:59 07/31/16 18:48 07/31/16 19:50 07/31/16 21:06 Bedside Glucose 208 200 196 168 Test 07/31/16 22:05 07/31/16 23:17 08/01/16 00:03 08/01/16 00:59 Bedside Glucose 186 155 173 172 Test 08/01/16 02:05 08/01/16 03:03 08/01/16 04:00 08/01/16 04:05 Bedside Glucose 188 178 183 Alanine Aminotransferase (ALT/SGPT) 89 H Albumin 3.7 Albumin/Globulin Ratio 0.94 Alkaline Phosphatase 132 H Anion Gap 26 H Aspartate Amino Transf (AST/SGOT) 85 H Basophils # 0.0 Basophils % 0.0 Blood Morphology Comment Blood Urea Nitrogen 68 H Calcium Level 7.3 L Carbon Dioxide Level 23 Chloride Level 93 L Creatinine 8.28 #H Direct Bilirubin 0.00 Eosinophils # 0.0 Eosinophils % 0.0 Globulin 3.90 H Glucose Level 171 Hematocrit 30.7 L Hemoglobin 11.0 L Indirect Bilirubin 0.0 Lymphocytes # 0.6 L Lymphocytes % 5.6 L Mean Corpuscular Hemoglobin 33.0 Mean Corpuscular Hemoglobin Concent 35.9 Mean Corpuscular Volume 91.8 Mean Platelet Volume 9.5 Monocytes # 0.5 Monocytes % 4.5 Neutrophils # 10.0 H Neutrophils % 89.9 H Nucleated Red Blood Cells # 0.0 Nucleated Red Blood Cells % 0.0 Platelet Count 214 Potassium Level 5.0 Red Blood Count 3.34 L Red Cell Distribution Width 15.8 H Sodium Level 137 Total Bilirubin 0.0 L Total Protein 7.6 # White Blood Count 11.1 H Test 08/01/16 05:05 08/01/16 06:08 08/01/16 06:58 Bedside Glucose 179 166 152 Medications Medications Current Medications Norepinephrine 16 mg/Dextrose 500 ml @ 1.87 mls/hr TITRATE IV Last administered on 07/28/16 21:18; Admin Dose 11.25 MLS/HR; Start 07/28/16 at 04: 00 Cefepime HCl (Maxipime 1gm/50 ml (Pmx)) 50 ml @ 100 mls/hr Q24H IVPB Last administered on 08/01/16 01:00; Admin Dose 100 MLS/HR; Start 07/28/16 at 01:00 Labetalol HCl 10 mg 10 mg Q6H PRN IV sbp > 160 Last administered on 07/31/16 07:01; Admin Dose 10 MG; Start 07/28/16 at 00:30 Propofol (Diprivan) 100 ml @ 3.609 mls/ hr Q12H PRN IV SEDATION Last administered on 08/01/16 03:01; Admin Dose 21.654 MLS/HR; Start 07/28/16 at 02: 30 Acetaminophen (Tylenol Supp) 650 mg Q6H PRN [place] PAIN AND OR ELEVATED TEMP Last administered on 07/31/16 17:30; Admin Dose 650 MG; Start 07/28/16 at 08:30 Miscellaneous Information 1 ea NOTE XX ; Start 07/28/16 at 09:00 Glucose (Glutose) 15 gm Q15M PRN PO DECREASED GLUCOSE; Start 07/28/16 at 09:00 Glucose (Glutose) 22.5 gm Q15M PRN PO DECREASED GLUCOSE; Start 07/28/16 at 09: 00 Dextrose (D50w Syringe) 25 ml Q15M PRN IV DECREASED GLUCOSE; Start 07/28/16 at 09:00 Dextrose (D50w Syringe) 50 ml Q15M PRN IV DECREASED GLUCOSE; Start 07/28/16 at 09:00 Glucagon (Glucagen) 1 mg Q15M PRN IM DECREASED GLUCOSE; Start 07/28/16 at 09:00 Glucose (Glutose) 15 gm Q15M PRN BUCCAL DECREASED GLUCOSE; Start 07/28/16 at 09 :00 Diagnostic Test (Pha) (Accucheck) 1 ea Q1H XX Last administered on 08/01/16 08 :20; Admin Dose 1 EA; Start 07/28/16 at 10:00 Dextrose (D50w Syringe) 25 ml Q15M PRN IV Till BS 80 mg/dL or above x2; Start 07/28/16 at 10:00 Dextrose 50 ml 50 ml Q15M PRN IV Till BS 80 mg/dL or above x2; Start 07/28/16 at 10:00 Levetiracetam/ Sodium Chloride (Keppra Iv/NS) 110 ml @ 420 mls/hr Q12 IVPB Last administered on 07/31/16 20:14; Admin Dose 420 MLS/HR; Start 07/29/16 at 21:00 IV Flush (NS 10 ml) 10 ml PRN PRN IV IV PROTOCOL; Start 07/29/16 at 17:00 Metoprolol Tartrate (Lopressor) 25 mg BID NGT Last administered on 07/31/16 20 :14; Admin Dose 25 MG; Start 07/31/16 at 09:00 Morphine Sulfate (morphine) 2 mg Q4 PRN IV PAIN Last administered on 07/31/16 12:00; Admin Dose 2 MG; Start 07/31/16 at 12:00 Methylprednisolone Sodium Succinate (Solu-Medrol) 60 mg Q12 IV Last administered on 07/31/16 20:15; Admin Dose 60 MG; Start 07/31/16 at 21:00 ROSCOE LANGE MD Aug 01, 2016 08:39
[2016-08-01] MEDS: METOPROLOL 25 MG TAB NGT SCH ×2 (09:48→20:08)
[2016-08-01] MEDS: LEVETIRACETAM IV 1,000 MG in SOD CHLORIDE 0.9% 100 ML IVPB SCH (09:48)
[2016-08-01] MEDS: METHYLPREDNISOLONE 125 MG INJ IV SCH ×2 (09:48→20:08)
--- NOTE | 2016-08-01 11:27 | CONS ---
Date/Time of Note Date/Time of Note DATE: 08/01/16 TIME: 11:25 Consult Date/Type/Reason Admit Date/Time Jul 27, 2016 at 23:29 Initial Consult Date 07/28/16 Type of Consultation: Pulmonary Subjective Patient remains intubated sedated on mechanical ventilation, not opening eyes or following commands, continues to show twitching of left lower extremity. Has periods of respiratory distress with breath stacking and attempting to cough. Objective Vital Signs Date Time Temp Pulse Resp B/P Pulse Ox O2 Delivery O2 Flow Rate FiO2 08/01/16 10:45 101 30 99 35 08/01/16 10:30 156/77 08/01/16 10:00 Mechanical Ventilator 08/01/16 08:00 100.2 Intake and Output 07/31/16 07/31/16 08/01/16 15:00 23:00 07:00 Intake Total 900 ml 499.254 ml 509.90 ml Output Total 4000 ml 250 ml 100 ml Balance -3100 ml 249.254 ml 409.90 ml PHYSICAL EXAMINATION GENERAL: Elderly gentleman, intubated on mechanical ventilation, opens eyes and appears somewhat agitated. Orally intubated. VITAL SIGNS: see below. HEENT: Pupils equal, round, and reactive to light. CARDIAC: S1, S2, tachycardia. CHEST: Diminished air entry bilaterally. ABDOMEN: Mildly distended. No bowel sounds. EXTREMITIES: No cyanosis, clubbing or edema. NEUROLOGIC: Twitching left lower extremity Results/Medications Result Diagram: 08/01/16 0400 08/01/16 0400 Results 24 hrs Laboratory Tests Test 07/31/16 12:07 07/31/16 13:59 07/31/16 15:04 07/31/16 16:03 Bedside Glucose 150 143 170 195 Test 07/31/16 17:05 07/31/16 17:59 07/31/16 18:48 07/31/16 19:50 Bedside Glucose 202 208 200 196 Test 07/31/16 21:06 07/31/16 22:05 07/31/16 23:17 08/01/16 00:03 Bedside Glucose 168 186 155 173 Test 08/01/16 00:59 08/01/16 02:05 08/01/16 03:03 08/01/16 04:00 Bedside Glucose 172 188 178 Alanine Aminotransferase (ALT/SGPT) 89 H Albumin 3.7 Albumin/Globulin Ratio 0.94 Alkaline Phosphatase 132 H Anion Gap 26 H Aspartate Amino Transf (AST/SGOT) 85 H Basophils # 0.0 Basophils % 0.0 Blood Morphology Comment Blood Urea Nitrogen 68 H Calcium Level 7.3 L Carbon Dioxide Level 23 Chloride Level 93 L Creatinine 8.28 #H Direct Bilirubin 0.00 Eosinophils # 0.0 Eosinophils % 0.0 Globulin 3.90 H Glucose Level 171 Hematocrit 30.7 L Hemoglobin 11.0 L Indirect Bilirubin 0.0 Lymphocytes # 0.6 L Lymphocytes % 5.6 L Mean Corpuscular Hemoglobin 33.0 Mean Corpuscular Hemoglobin Concent 35.9 Mean Corpuscular Volume 91.8 Mean Platelet Volume 9.5 Monocytes # 0.5 Monocytes % 4.5 Neutrophils # 10.0 H Neutrophils % 89.9 H Nucleated Red Blood Cells # 0.0 Nucleated Red Blood Cells % 0.0 Platelet Count 214 Potassium Level 5.0 Red Blood Count 3.34 L Red Cell Distribution Width 15.8 H Sodium Level 137 Total Bilirubin 0.0 L Total Protein 7.6 # White Blood Count 11.1 H Test 08/01/16 04:05 08/01/16 05:05 08/01/16 06:08 08/01/16 06:58 Bedside Glucose 183 179 166 152 Test 08/01/16 08:20 08/01/16 08:54 08/01/16 09:58 Bedside Glucose 146 134 131 Medications Current Medications Norepinephrine 16 mg/Dextrose 500 ml @ 1.87 mls/hr TITRATE IV Last administered on 07/28/16 21:18; Admin Dose 11.25 MLS/HR; Start 07/28/16 at 04: 00 Cefepime HCl (Maxipime 1gm/50 ml (Pmx)) 50 ml @ 100 mls/hr Q24H IVPB Last administered on 08/01/16 01:00; Admin Dose 100 MLS/HR; Start 07/28/16 at 01:00 Labetalol HCl 10 mg 10 mg Q6H PRN IV sbp > 160 Last administered on 07/31/16 07:01; Admin Dose 10 MG; Start 07/28/16 at 00:30 Propofol (Diprivan) 100 ml @ 3.609 mls/ hr Q12H PRN IV SEDATION Last administered on 08/01/16 03:01; Admin Dose 21.654 MLS/HR; Start 07/28/16 at 02: 30 Acetaminophen (Tylenol Supp) 650 mg Q6H PRN [place] PAIN AND OR ELEVATED TEMP Last administered on 07/31/16 17:30; Admin Dose 650 MG; Start 07/28/16 at 08:30 Miscellaneous Information 1 ea NOTE XX ; Start 07/28/16 at 09:00 Glucose (Glutose) 15 gm Q15M PRN PO DECREASED GLUCOSE; Start 07/28/16 at 09:00 Glucose (Glutose) 22.5 gm Q15M PRN PO DECREASED GLUCOSE; Start 07/28/16 at 09: 00 Dextrose (D50w Syringe) 25 ml Q15M PRN IV DECREASED GLUCOSE; Start 07/28/16 at 09:00 Dextrose (D50w Syringe) 50 ml Q15M PRN IV DECREASED GLUCOSE; Start 07/28/16 at 09:00 Glucagon (Glucagen) 1 mg Q15M PRN IM DECREASED GLUCOSE; Start 07/28/16 at 09:00 Glucose (Glutose) 15 gm Q15M PRN BUCCAL DECREASED GLUCOSE; Start 07/28/16 at 09 :00 Diagnostic Test (Pha) (Accucheck) 1 ea Q1H XX Last administered on 08/01/16 09 :52; Admin Dose 1 EA; Start 07/28/16 at 10:00 Dextrose (D50w Syringe) 25 ml Q15M PRN IV Till BS 80 mg/dL or above x2; Start 07/28/16 at 10:00 Dextrose 50 ml 50 ml Q15M PRN IV Till BS 80 mg/dL or above x2; Start 07/28/16 at 10:00 Levetiracetam/ Sodium Chloride (Keppra Iv/NS) 110 ml @ 420 mls/hr Q12 IVPB Last administered on 08/01/16 09:48; Admin Dose 420 MLS/HR; Start 07/29/16 at 21:00 IV Flush (NS 10 ml) 10 ml PRN PRN IV IV PROTOCOL; Start 07/29/16 at 17:00 Metoprolol Tartrate (Lopressor) 25 mg BID NGT Last administered on 08/01/16 09 :48; Admin Dose 25 MG; Start 07/31/16 at 09:00 Morphine Sulfate (morphine) 2 mg Q4 PRN IV PAIN Last administered on 07/31/16 12:00; Admin Dose 2 MG; Start 07/31/16 at 12:00 Methylprednisolone Sodium Succinate (Solu-Medrol) 60 mg Q12 IV Last administered on 08/01/16 09:48; Admin Dose 60 MG; Start 07/31/16 at 21:00 Pantoprazole (Protonix Iv) 40 mg DAILY@06 IV ; Start 08/02/16 at 06:00 Assessment/Plan Chief Complaint/Hosp Course IMPRESSION: 1. s/p Cardiopulmonary arrest. 2. 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 3. End-stage renal failure. 4. No evidence of occlusive lesions on cardiac catheterization. 5. HTN heart Disease 6. Asthma RECS 1. Vent support 2. Daily assessment of mental status 3. EEG. 4. Continue antiepileptics. 5. MRI of brain when stable. 6. Continue hemodialysis with correction of electrolytes. 7. Discussed prognosis with family in view of high likelihood of significant anoxic encephalopathy. Discussed need for tracheostomy and PEG tube placement with family who will likely proceed in the next few days. Problems: JAVED PIERCE MD, [facility] Aug 01, 2016 11:27
--- NOTE | 2016-08-01 11:59 | CONS ---
Date/Time of Note Date/Time of Note DATE: 08/01/16 TIME: 11:50 Consult Date/Type/Reason Admit Date/Time Jul 27, 2016 at 23:29 Initial Consult Date 07/28/16 Type of Consultation: Neurology Reason for Consultation anoxic injury, seizure management Subjective intubated remains on sedation when sedation is turned off he has left leg myoclonus movements, and severe coughing Objective Vital Signs Date Time Temp Pulse Resp B/P Pulse Ox O2 Delivery O2 Flow Rate FiO2 08/01/16 10:45 101 30 99 35 08/01/16 10:30 156/77 08/01/16 10:00 Mechanical Ventilator 08/01/16 08:00 100.2 Intake and Output 07/31/16 07/31/16 08/01/16 15:00 23:00 07:00 Intake Total 900 ml 499.254 ml 509.90 ml Output Total 4000 ml 250 ml 100 ml Balance -3100 ml 249.254 ml 409.90 ml Constitutional: other (comatose) Head: atraumatic, normocephalic Eyes: EOMI, nl conjunctiva, nl lids ENMT: nl external ears & nose, nl lips & teeth, nl nasal mucosa & septum Neck: non-tender, supple Respiratory: normal air movement Cardiovascular: nl pulses, regular rate and rhythm Extremities: normal pulses Neurological: other (Intubated, ventilated, sedated, positive corneal and gag,) Results/Medications Result Diagram: 08/01/16 0400 08/01/16 0400 Results 24 hrs Laboratory Tests Test 07/31/16 12:07 07/31/16 13:59 07/31/16 15:04 07/31/16 16:03 Bedside Glucose 150 143 170 195 Test 07/31/16 17:05 07/31/16 17:59 07/31/16 18:48 07/31/16 19:50 Bedside Glucose 202 208 200 196 Test 07/31/16 21:06 07/31/16 22:05 07/31/16 23:17 08/01/16 00:03 Bedside Glucose 168 186 155 173 Test 08/01/16 00:59 08/01/16 02:05 08/01/16 03:03 08/01/16 04:00 Bedside Glucose 172 188 178 Alanine Aminotransferase (ALT/SGPT) 89 H Albumin 3.7 Albumin/Globulin Ratio 0.94 Alkaline Phosphatase 132 H Anion Gap 26 H Aspartate Amino Transf (AST/SGOT) 85 H Basophils # 0.0 Basophils % 0.0 Blood Morphology Comment Blood Urea Nitrogen 68 H Calcium Level 7.3 L Carbon Dioxide Level 23 Chloride Level 93 L Creatinine 8.28 #H Direct Bilirubin 0.00 Eosinophils # 0.0 Eosinophils % 0.0 Globulin 3.90 H Glucose Level 171 Hematocrit 30.7 L Hemoglobin 11.0 L Indirect Bilirubin 0.0 Lymphocytes # 0.6 L Lymphocytes % 5.6 L Mean Corpuscular Hemoglobin 33.0 Mean Corpuscular Hemoglobin Concent 35.9 Mean Corpuscular Volume 91.8 Mean Platelet Volume 9.5 Monocytes # 0.5 Monocytes % 4.5 Neutrophils # 10.0 H Neutrophils % 89.9 H Nucleated Red Blood Cells # 0.0 Nucleated Red Blood Cells % 0.0 Platelet Count 214 Potassium Level 5.0 Red Blood Count 3.34 L Red Cell Distribution Width 15.8 H Sodium Level 137 Total Bilirubin 0.0 L Total Protein 7.6 # White Blood Count 11.1 H Test 08/01/16 04:05 08/01/16 05:05 08/01/16 06:08 08/01/16 06:58 Bedside Glucose 183 179 166 152 Test 08/01/16 08:20 08/01/16 08:54 08/01/16 09:58 08/01/16 11:25 Bedside Glucose 146 134 131 124 Medications Current Medications Norepinephrine 16 mg/Dextrose 500 ml @ 1.87 mls/hr TITRATE IV Last administered on 07/28/16 21:18; Admin Dose 11.25 MLS/HR; Start 07/28/16 at 04: 00 Cefepime HCl (Maxipime 1gm/50 ml (Pmx)) 50 ml @ 100 mls/hr Q24H IVPB Last administered on 08/01/16 01:00; Admin Dose 100 MLS/HR; Start 07/28/16 at 01:00 Labetalol HCl 10 mg 10 mg Q6H PRN IV sbp > 160 Last administered on 07/31/16 07:01; Admin Dose 10 MG; Start 07/28/16 at 00:30 Propofol (Diprivan) 100 ml @ 3.609 mls/ hr Q12H PRN IV SEDATION Last administered on 08/01/16 11:22; Admin Dose 14.436 MLS/HR; Start 07/28/16 at 02: 30 Acetaminophen (Tylenol Supp) 650 mg Q6H PRN [place] PAIN AND OR ELEVATED TEMP Last administered on 07/31/16 17:30; Admin Dose 650 MG; Start 07/28/16 at 08:30 Miscellaneous Information 1 ea NOTE XX ; Start 07/28/16 at 09:00 Glucose (Glutose) 15 gm Q15M PRN PO DECREASED GLUCOSE; Start 07/28/16 at 09:00 Glucose (Glutose) 22.5 gm Q15M PRN PO DECREASED GLUCOSE; Start 07/28/16 at 09: 00 Dextrose (D50w Syringe) 25 ml Q15M PRN IV DECREASED GLUCOSE; Start 07/28/16 at 09:00 Dextrose (D50w Syringe) 50 ml Q15M PRN IV DECREASED GLUCOSE; Start 07/28/16 at 09:00 Glucagon (Glucagen) 1 mg Q15M PRN IM DECREASED GLUCOSE; Start 07/28/16 at 09:00 Glucose (Glutose) 15 gm Q15M PRN BUCCAL DECREASED GLUCOSE; Start 07/28/16 at 09 :00 Diagnostic Test (Pha) (Accucheck) 1 ea Q1H XX Last administered on 08/01/16 11 :22; Admin Dose 1 EA; Start 07/28/16 at 10:00 Dextrose (D50w Syringe) 25 ml Q15M PRN IV Till BS 80 mg/dL or above x2; Start 07/28/16 at 10:00 Dextrose (D50w Syringe) 50 ml Q15M PRN IV Till BS 80 mg/dL or above x2; Start 07/28/16 at 10:00 IV Flush (NS 10 ml) 10 ml PRN PRN IV IV PROTOCOL; Start 07/29/16 at 17:00 Metoprolol Tartrate (Lopressor) 25 mg BID NGT Last administered on 08/01/16 09 :48; Admin Dose 25 MG; Start 07/31/16 at 09:00 Morphine Sulfate (morphine) 2 mg Q4 PRN IV PAIN Last administered on 07/31/16 12:00; Admin Dose 2 MG; Start 07/31/16 at 12:00 Methylprednisolone Sodium Succinate (Solu-Medrol) 60 mg Q12 IV Last administered on 08/01/16 09:48; Admin Dose 60 MG; Start 07/31/16 at 21:00 Pantoprazole 40 mg 40 mg DAILY@06 IV ; Start 08/02/16 at 06:00 Levetiracetam/ Sodium Chloride (Keppra Iv/NS) 115 ml @ 420 mls/hr Q12 IVPB ; Start 08/01/16 at 21:00; Status UNV Assessment/Plan Chief Complaint/Hosp Course 56 year old M with hx of ESRD, HTN, DM, Asthma began experiencing SOB suffered PEA arrest with ROSC for 20 mins, STEMI s/p cardiac catheterization with no intervention with possible seizure activity vs. post anoxic myoclonus. EEG showed burst suppression pattern suggesting severe encephalopathy with seizure activity. CT brain showed nothing acute. Examination showed positive corneals, pupillary reflexes and gag reflex. -Keppra increased to 1500 mg q12h -continue to taper off sedation -burst suppression generally associated with a poor prognosis for neurologic recovery -will continue to follow, discussed recommendations w daughter at bedside Problems: TORI CHERY MD Aug 01, 2016 11:59
--- NOTE | 2016-08-01 13:31 | PN ---
Date/Time of Note Date/Time of Note DATE: 08/01/16 TIME: 13:23 Assessment/Plan VTE Prophylaxis VTE Prophylaxis Intervention: heparin Assessment/Plan Chief Complaint/Hosp Course 1. PEA s/p cardiac arrest with ROSC - will admit the patient to the ICU, continue telemetry monitoring, f/u cardio recs, LHC - negative for coronary artery disease, ECHO, carotid duplex -Etiology of PEA likely 2/2 Hypoxia -CT Brain shows no CVA or signs of anoxic injury but EEG shows presence of burst suppression pattern throughout the tracing, which is severely encephalopathic, with epileptiform activity. -Pt having myocloni cjerks vs Seizures and has been started on Keppra by Neuro 2. ESRD on HD - dialysis now, and prn as per nephrology 3. SIRS with elevated white count and fever- R Lung opacity noted and may be Asp PNA -cont cefepime/vanc 4. VDRF -pulm consult appreciated 5. Hypotension - cardiac shock vs septic shock - continue with pressor support 6. CHF - acute - diastolic vs systolic dysfunction - fluid to be removed via dialysis - monitor I/O's 7. Metabolic with respiratory acidosis - 2/2 to cardiac arrest - s/p bicarb- resolved 8. Essential hypertension - hold medications as patient is hypotensive 9. Type II DM - uncontrolled, check Hgba1c, ISS, lantus 10. Asthma - currently on vent, continue with breathing treatments 11. Smoking abuse - patient will be counseled on cessation once extubated 12. Obesity - consider nutrition consult once extubated 13. GI ppx - protonix 14. DVT ppx - heparin Problems: Subjective 24 Hr Interval Summary Subjective hx not possible: pt non-verbal Exam/Review of Systems Vital Signs Vitals Vital Signs Date Time Temp Pulse Resp B/P Pulse Ox O2 Delivery O2 Flow Rate FiO2 08/01/16 12:30 84 23 145/75 92 08/01/16 12:00 Mechanical Ventilator 08/01/16 10:45 35 08/01/16 08:00 100.2 Intake and Output 07/31/16 07/31/16 08/01/16 15:00 23:00 07:00 Intake Total 900 ml 499.254 ml 509.90 ml Output Total 4000 ml 250 ml 100 ml Balance -3100 ml 249.254 ml 409.90 ml Exam Constitutional: non-verbal ENMT: intubated Respiratory: clear to auscultation Cardiovascular: regular rate and rhythm Gastrointestinal: soft, No distended Musculoskeletal: nl extremities to inspection Results Result Diagram: 08/01/16 0400 08/01/16 0400 Results 24 hrs Laboratory Tests Test 07/31/16 13:59 07/31/16 15:04 07/31/16 16:03 07/31/16 17:05 Bedside Glucose 143 170 195 202 Test 07/31/16 17:59 07/31/16 18:48 07/31/16 19:50 07/31/16 21:06 Bedside Glucose 208 200 196 168 Test 07/31/16 22:05 07/31/16 23:17 08/01/16 00:03 08/01/16 00:59 Bedside Glucose 186 155 173 172 Test 08/01/16 02:05 08/01/16 03:03 08/01/16 04:00 08/01/16 04:05 Bedside Glucose 188 178 183 Alanine Aminotransferase (ALT/SGPT) 89 H Albumin 3.7 Albumin/Globulin Ratio 0.94 Alkaline Phosphatase 132 H Anion Gap 26 H Aspartate Amino Transf (AST/SGOT) 85 H Basophils # 0.0 Basophils % 0.0 Blood Morphology Comment Blood Urea Nitrogen 68 H Calcium Level 7.3 L Carbon Dioxide Level 23 Chloride Level 93 L Creatinine 8.28 #H Direct Bilirubin 0.00 Eosinophils # 0.0 Eosinophils % 0.0 Globulin 3.90 H Glucose Level 171 Hematocrit 30.7 L Hemoglobin 11.0 L Indirect Bilirubin 0.0 Lymphocytes # 0.6 L Lymphocytes % 5.6 L Mean Corpuscular Hemoglobin 33.0 Mean Corpuscular Hemoglobin Concent 35.9 Mean Corpuscular Volume 91.8 Mean Platelet Volume 9.5 Monocytes # 0.5 Monocytes % 4.5 Neutrophils # 10.0 H Neutrophils % 89.9 H Nucleated Red Blood Cells # 0.0 Nucleated Red Blood Cells % 0.0 Platelet Count 214 Potassium Level 5.0 Red Blood Count 3.34 L Red Cell Distribution Width 15.8 H Sodium Level 137 Total Bilirubin 0.0 L Total Protein 7.6 # White Blood Count 11.1 H Test 08/01/16 05:05 08/01/16 06:08 08/01/16 06:58 08/01/16 08:20 Bedside Glucose 179 166 152 146 Test 08/01/16 08:54 08/01/16 09:58 08/01/16 11:25 08/01/16 12:28 Bedside Glucose 134 131 124 148 Medications Medications Current Medications Norepinephrine 16 mg/Dextrose 500 ml @ 1.87 mls/hr TITRATE IV Last administered on 07/28/16 21:18; Admin Dose 11.25 MLS/HR; Start 07/28/16 at 04: 00 Cefepime HCl (Maxipime 1gm/50 ml (Pmx)) 50 ml @ 100 mls/hr Q24H IVPB Last administered on 08/01/16 01:00; Admin Dose 100 MLS/HR; Start 07/28/16 at 01:00 Labetalol HCl 10 mg 10 mg Q6H PRN IV sbp > 160 Last administered on 07/31/16 07:01; Admin Dose 10 MG; Start 07/28/16 at 00:30 Propofol (Diprivan) 100 ml @ 3.609 mls/ hr Q12H PRN IV SEDATION Last administered on 08/01/16 11:22; Admin Dose 14.436 MLS/HR; Start 07/28/16 at 02: 30 Acetaminophen (Tylenol Supp) 650 mg Q6H PRN NC PAIN AND OR ELEVATED TEMP Last administered on 07/31/16 17:30; Admin Dose 650 MG; Start 07/28/16 at 08:30 Miscellaneous Information 1 ea NOTE XX ; Start 07/28/16 at 09:00 Glucose (Glutose) 15 gm Q15M PRN PO DECREASED GLUCOSE; Start 07/28/16 at 09:00 Glucose (Glutose) 22.5 gm Q15M PRN PO DECREASED GLUCOSE; Start 07/28/16 at 09: 00 Dextrose (D50w Syringe) 25 ml Q15M PRN IV DECREASED GLUCOSE; Start 07/28/16 at 09:00 Dextrose (D50w Syringe) 50 ml Q15M PRN IV DECREASED GLUCOSE; Start 07/28/16 at 09:00 Glucagon (Glucagen) 1 mg Q15M PRN IM DECREASED GLUCOSE; Start 07/28/16 at 09:00 Glucose (Glutose) 15 gm Q15M PRN BUCCAL DECREASED GLUCOSE; Start 07/28/16 at 09 :00 Diagnostic Test (Pha) (Accucheck) 1 ea Q1H XX Last administered on 08/01/16 12 :28; Admin Dose 1 EA; Start 07/28/16 at 10:00 Dextrose (D50w Syringe) 25 ml Q15M PRN IV Till BS 80 mg/dL or above x2; Start 07/28/16 at 10:00 Dextrose (D50w Syringe) 50 ml Q15M PRN IV Till BS 80 mg/dL or above x2; Start 07/28/16 at 10:00 IV Flush (NS 10 ml) 10 ml PRN PRN IV IV PROTOCOL; Start 07/29/16 at 17:00 Metoprolol Tartrate (Lopressor) 25 mg BID NGT Last administered on 08/01/16 09 :48; Admin Dose 25 MG; Start 07/31/16 at 09:00 Morphine Sulfate (morphine) 2 mg Q4 PRN IV PAIN Last administered on 07/31/16 12:00; Admin Dose 2 MG; Start 07/31/16 at 12:00 Methylprednisolone Sodium Succinate (Solu-Medrol) 60 mg Q12 IV Last administered on 08/01/16 09:48; Admin Dose 60 MG; Start 07/31/16 at 21:00 Pantoprazole 40 mg 40 mg DAILY@06 IV ; Start 08/02/16 at 06:00 Levetiracetam/ Sodium Chloride (Keppra Iv/NS) 115 ml @ 420 mls/hr Q12 IVPB ; Start 08/01/16 at 21:00 Miscellaneous Information (*Rx Drug Level Order Reminder*) 1 ONCE ONCE XX ; Start 08/02/16 at 05:00; Stop 08/02/16 at 05:01 BARNEY MCKEE Aug 01, 2016 13:31
[2016-08-01] MEDS: INSULIN REGULAR, HUMAN 100 UNIT in SOD CHLORIDE 0.9% 99 ML IV SCH ×2 (16:09)
[2016-08-01] MEDS: LEVETIRACETAM IV 1,500 MG in SOD CHLORIDE 0.9% 100 ML IVPB SCH (20:08)
--- NOTE | 2016-08-01 21:18 | PN ---
DATE: 08/01/2016 There has not been a major significant neurological change in patient's clinical condition since las t time I have seen him on 07/29. He remains in the intensive care unit, intubated, on dialysis, sys temic inflammatory response syndrome, on broad spectrum IV antibiotic coverage. Close attention to his metabolics and his CHF has been paid, as well to his type 2 diabetes. He remains unresponsive t o any verbal or tactile stimulation. He has been seen by Neurology, Dr. Law. EEG done showed bu rst suppression pattern suggesting severe encephalopathy with seizure activity. The patient has bee n treated aggressively for underlying seizure activity, and his underlying encephalopathy will be ad dressed after seizures have been controlled. Family members have been at the bedside daily, who pedrito ears to be the daughter is the spokesperson for the family members. MEDICATIONS: Please refer to reconciliation sheets. PHYSICAL EXAMINATION: VITAL SIGNS: Blood pressure 145/75, pulse of 84 and regular, respirations of 23. CHEST: Inspiratory and expiratory breath sounds on the right, difficult to hear on the left side. CORONARY: S1, S2 without S3, S4, murmur, gallop, rub. Normal rate, normal rhythm on examination. NEUROLOGICAL: The patient is sedated. ASSESSMENT AND PLAN: I have offered to have a family conference with family just to update them and answer all their questions possible. I have told them what I don't know, I will find out. It is s till early post cardiac arrest. However, prognosis is poor according to consultants and generally f ollowing his clinical condition myself. His daughter is very reluctant to have a conference at this time, especially with me, concerning any ongoing discussions about care. Although that would not b e addressed with family members at this time, I certainly understand that she does want to address t hat issue yet or even think about it. I will remain available, review patient's chart and still rem ain available so family can see me at least, but I will not push for a conference. Dictated By: ANGELIKA BELLE MD, LP/BATSHEVA Conf#: [id number] DID#: [id number]
[2016-08-01] MEDS: IPRATROPIUM (HFA) 12.9 GM INHALER INH PRN (23:38)
[2016-08-02] VITALS (67 sets, daily range): BP systolic 115–186; BP diastolic 62–110; PULSE 77–105; RESP 9–33
[2016-08-02] MEDS: morphine 2 MG INJ IV PRN (00:07)
[2016-08-02] MEDS: ACCUCHECK XX SCH ×24 (00:12→23:10)
[2016-08-02 00:14] LABS: AADO2 Arterial 130.1 mmHg (7.0-24.0); Allen Test ACCEPTAB; Arterial Base Excess -6.7 mmol/L (-3.0-3); Arterial COHb 0 % (0.0-3.0); Arterial Fraction of Oxyhgb 92.6 % (93.0-99.0); Arterial HCO3 18.9 mmol/L (22.0-26.0); Arterial MetHb 0.1 % (0.0-1.5); Arterial Total Hemglobin 12.6 g/dl (12.0-18.0); MODE VENT - AC
[2016-08-02] MEDS: PROPOFOL 100 ML IV PRN ×9 (00:15→22:16)
[2016-08-02] MEDS: LABETALOL HCL 20MG INJ IV PRN (00:15)
[2016-08-02] MEDS: CEFEPIME 1GM/50 ML (PMX) 50 ML IVPB SCH (01:11)
[2016-08-02] MEDS: IPRATROPIUM (HFA) 12.9 GM INHALER INH SCH ×6 (01:20→21:32)
[2016-08-02] MEDS: ALBUTEROL HFA 8 GM INHALER INH PRN ×2 (01:21→03:36)
[2016-08-02] MEDS: FENTAnyl 1,000 MCG in DEXTROSE 5% 80 ML IV SCH ×2 (01:51→15:38)
[2016-08-02] MEDS ORDERED: LORAZEPAM 2 MG INJ IV ONE (02:00)
[2016-08-02] MEDS: IPRATROPIUM (HFA) 12.9 GM INHALER INH PRN (03:36)
[2016-08-02] MEDS: LORAZEPAM 2 MG INJ IV PRN ×4 (03:38→19:20)
[2016-08-02] MEDS: ALBUTEROL HFA 8 GM INHALER INH SCH ×5 (05:21→21:32)
[2016-08-02] MEDS: PANTOPRAZOLE 40 MG INJ IV SCH (05:40)
[2016-08-02 06:39] LABS: ALBUMIN 3.7 g/dl (3.3-4.9)
[2016-08-02 06:42] LABS: ALBUMIN/GLOBULIN RATIO 0.88; TOTAL PROTEIN 7.9 g/dl (6.1-8.1)
[2016-08-02 06:43] LABS: CALCIUM 7.1 mg/dl (8.4-10.2)
[2016-08-02] MEDS: INSULIN REGULAR, HUMAN 100 UNIT in SOD CHLORIDE 0.9% 99 ML IV SCH ×4 (07:26→22:17)
--- NOTE | 2016-08-02 08:13 | CONS ---
Date/Time of Note Date/Time of Note DATE: 08/02/16 TIME: 08:08 Assessment/Plan Assessment/Plan Chief Complaint/Hosp Course #1 end-stage renal disease , this patient has ESRD due to diabetic nephropathy and has been on maintenance hemodialysis for about 1 year. He has dialysis ordered for today. #2 the patient is status post a cardiac arrest at home #3 altered level of consciousness, probable anoxic encephalopathy. #4 insulin-dependent diabetes mellitus #5 seizures #6 ventilator dependent respiratory failure , h/o COPD and pneumonia on CXR . Problems: Consultation Date/Type/Reason Admit Date/Time Jul 27, 2016 at 23:29 Initial Consult Date 07/28/16 Type of Consultation: Neurology 24 HR Interval Summary Free Text/Dictation He is in the ICU sedated and intubated and on a ventilator. He is not responsive. His family is in attendance. Subjective hx not possible: pt non-verbal Exam/Review of Systems Vital Signs Vitals Vital Signs Date Time Temp Pulse Resp B/P Pulse Ox O2 Delivery O2 Flow Rate FiO2 08/02/16 07:00 79 18 136/70 95 Mechanical Ventilator 08/02/16 05:25 50 08/02/16 04:00 98.8 Intake and Output 08/01/16 08/01/16 08/02/16 15:00 23:00 07:00 Intake Total 483 ml 707.36 ml 654.22 ml Output Total 50 ml 25 ml Balance 483 ml 657.36 ml 629.22 ml Exam Constitutional: non-verbal Head: normocephalic Respiratory: clear to auscultation, diminished breath sounds Cardiovascular: regular rate and rhythm Gastrointestinal: soft Musculoskeletal: nl extremities to inspection Results Result Diagram: 08/01/16 0400 08/01/16 0400 Results 24 hrs Laboratory Tests Test 08/01/16 08:20 08/01/16 08:54 08/01/16 09:58 08/01/16 11:25 Bedside Glucose 146 134 131 124 Test 08/01/16 12:28 08/01/16 13:42 08/01/16 14:32 08/01/16 15:36 Bedside Glucose 148 162 183 191 Test 08/01/16 16:24 08/01/16 17:08 08/01/16 18:11 08/01/16 19:03 Bedside Glucose 184 188 181 191 Test 08/01/16 20:06 08/01/16 21:02 08/01/16 22:00 08/01/16 23:03 Bedside Glucose 164 148 135 152 Test 08/01/16 23:51 08/02/16 00:10 08/02/16 01:08 08/02/16 02:09 Arterial Blood HCO3 18.9 L Arterial Blood Base Excess -6.7 L Arterial Blood Oxygen Saturation 92.7 L Osiel Test ACCEPTAB Arterial Blood Gas Puncture Site Right Radial Arterial Blood Carboxyhemoglobin 0 Arterial Blood Date Drawn 08/02/2016 12:06:09 AM Arterial Blood Methemoglobin 0.1 Arterial Blood pCO2 (Temp correct) 38.3 Arterial Blood pH (Temp corrected) 7.311 L Arterial Blood pO2 (Temp corrected) 74.9 L Blood Gas A-a O2 Differential 130.1 H Blood Gas Actual Respiration Rate 29 Blood Gas Low PEEP Setting 5.0 Blood Gas Modality VENT - AC Blood Gas Notified Time 08/02/2016 12:14:05 AM Blood Gas Notified Whom RTR Blood Gas Respiration Rate 16.0 Blood Gas Specimen Source Blood arterial Blood Gas Temperature 37.0 Blood Gas Tidal Volume 550.0 FiO2 35.0 Oxyhemoglobin Percent 92.6 L Total Hemoglobin 12.6 Bedside Glucose 155 165 164 Test 08/02/16 03:11 08/02/16 04:14 08/02/16 04:59 08/02/16 05:00 Bedside Glucose 179 160 162 Random Vancomycin Level 18.9 Test 08/02/16 05:40 08/02/16 07:02 Bedside Glucose 159 165 Medications Medications Current Medications Norepinephrine 16 mg/Dextrose 500 ml @ 1.87 mls/hr TITRATE IV Last administered on 07/28/16 21:18; Admin Dose 11.25 MLS/HR; Start 07/28/16 at 04: 00 Cefepime HCl (Maxipime 1gm/50 ml (Pmx)) 50 ml @ 100 mls/hr Q24H IVPB Last administered on 08/02/16 01:11; Admin Dose 100 MLS/HR; Start 07/28/16 at 01:00 Labetalol HCl 10 mg 10 mg Q6H PRN IV sbp > 160 Last administered on 08/02/16 00:15; Admin Dose 10 MG; Start 07/28/16 at 00:30 Propofol (Diprivan) 100 ml @ 3.609 mls/ hr Q12H PRN IV SEDATION Last administered on 08/02/16 05:37; Admin Dose 36.09 MLS/HR; Start 07/28/16 at 02: 30 Acetaminophen (Tylenol Supp) 650 mg Q6H PRN AL PAIN AND OR ELEVATED TEMP Last administered on 07/31/16 17:30; Admin Dose 650 MG; Start 07/28/16 at 08:30 Miscellaneous Information 1 ea NOTE XX ; Start 07/28/16 at 09:00 Glucose (Glutose) 15 gm Q15M PRN PO DECREASED GLUCOSE; Start 07/28/16 at 09:00 Glucose (Glutose) 22.5 gm Q15M PRN PO DECREASED GLUCOSE; Start 07/28/16 at 09: 00 Dextrose (D50w Syringe) 25 ml Q15M PRN IV DECREASED GLUCOSE; Start 07/28/16 at 09:00 Dextrose (D50w Syringe) 50 ml Q15M PRN IV DECREASED GLUCOSE; Start 07/28/16 at 09:00 Glucagon (Glucagen) 1 mg Q15M PRN IM DECREASED GLUCOSE; Start 07/28/16 at 09:00 Glucose (Glutose) 15 gm Q15M PRN BUCCAL DECREASED GLUCOSE; Start 07/28/16 at 09 :00 Diagnostic Test (Pha) (Accucheck) 1 ea Q1H XX Last administered on 08/02/16 07 :03; Admin Dose 1 EA; Start 07/28/16 at 10:00 Dextrose (D50w Syringe) 25 ml Q15M PRN IV Till BS 80 mg/dL or above x2; Start 07/28/16 at 10:00 Dextrose (D50w Syringe) 50 ml Q15M PRN IV Till BS 80 mg/dL or above x2; Start 07/28/16 at 10:00 IV Flush (NS 10 ml) 10 ml PRN PRN IV IV PROTOCOL; Start 07/29/16 at 17:00 Metoprolol Tartrate (Lopressor) 25 mg BID NGT Last administered on 08/01/16 20 :08; Admin Dose 25 MG; Start 07/31/16 at 09:00 Morphine Sulfate (morphine) 2 mg Q4 PRN IV PAIN Last administered on 08/02/16 00:07; Admin Dose 2 MG; Start 07/31/16 at 12:00 Methylprednisolone Sodium Succinate (Solu-Medrol) 60 mg Q12 IV Last administered on 08/01/16 20:08; Admin Dose 60 MG; Start 07/31/16 at 21:00 Pantoprazole 40 mg 40 mg DAILY@06 IV Last administered on 08/02/16 05:40; Admin Dose 40 MG; Start 08/02/16 at 06:00 Levetiracetam 1500 mg/Sodium Chloride 115 ml @ 420 mls/hr Q12 IVPB Last administered on 08/01/16 20:08; Admin Dose 420 MLS/HR; Start 08/01/16 at 21:00 Fentanyl/Dextrose (D5W) 100 ml @ 2.5 mls/hr TITRATE IV Last administered on 01:51; Admin Dose 2.5 MLS/HR; Start 08/02/16 at 01:00 Lorazepam (Ativan) 1 mg Q1H PRN IV SEIZURES Last administered on 08/02/16 03: 38; Admin Dose 1 MG; Start 08/02/16 at 02:00 ROSCOE LANGE MD Aug 02, 2016 08:13
[2016-08-02] MEDS: METHYLPREDNISOLONE 125 MG INJ IV SCH (08:23)
[2016-08-02] MEDS: METOPROLOL 25 MG TAB NGT SCH ×2 (08:24→20:18)
[2016-08-02] MEDS: LEVETIRACETAM IV 1,500 MG in SOD CHLORIDE 0.9% 100 ML IVPB SCH ×2 (08:25→20:17)
[2016-08-02 08:29] LABS: HEMATOCRIT 32.9 % (42.0-52.0); HEMOGLOBIN 11.1 g/dl (14.0-18.0); LYMPHOCYTES # 0.6 10^3/ul (0.8-2.9); LYMPHOCYTES % 4.6 % (15.0-51.0); MEAN CORPUSCULAR HEMOGLOBIN 31.8 pg (29.0-33.0); MEAN CORPUSCULAR HGB CONC 33.9 g/dl (32.0-37.0); MEAN CORPUSCULAR VOLUME 93.9 fl (82.0-101.0); MEAN PLATELET VOLUME 9.5 fl (7.4-10.4); MONOCYTE # 0.9 10^3/ul (0.3-0.9); NEUTROPHIL # 11.4 10^3/ul (1.6-7.5); NEUTROPHILS % 88.4 % (39.0-77.0); PLATELET COUNT 249 10^3/UL (140-440); RED CELL DISTRIBUTION WIDTH 15.5 % (11.5-14.5); UNCORRECTED WBC 12.9 10^3/ul (4.8-10.8); WHITE BLOOD COUNT 12.9 10^3/ul (4.8-10.8)
[2016-08-02 08:30] LABS: CREATININE 11.49 mg/dl (0.61-1.24)
[2016-08-02 08:35] LABS: CONDITION 1; LH ANALYZER COMMENTS 1; POTASSIUM 6.3 mmol/L (3.5-5.1)
--- NOTE | 2016-08-02 10:33 | CONS ---
Date/Time of Note Date/Time of Note DATE: 08/02/16 TIME: 10:30 Consult Date/Type/Reason Admit Date/Time Jul 27, 2016 at 23:29 Initial Consult Date 07/28/16 Type of Consultation: pulmonary Subjective Patient remains unresponsive on mechanical ventilation Has significant ventilator dyssynchrony Respiratory effort appears agonal at times Abdominal breathing noticed Currently he remains hemodynamically stable Objective Vital Signs Date Time Temp Pulse Resp B/P Pulse Ox O2 Delivery O2 Flow Rate FiO2 08/02/16 08:30 78 16 124/69 95 Mechanical Ventilator 08/02/16 08:00 50 08/02/16 08:00 98.9 Intake and Output 08/01/16 08/01/16 08/02/16 15:00 23:00 07:00 Intake Total 483 ml 707.36 ml 654.22 ml Output Total 50 ml 25 ml Balance 483 ml 657.36 ml 629.22 ml PHYSICAL EXAMINATION GENERAL: Elderly gentleman, intubated on mechanical ventilation, orally intubated VITAL SIGNS: see below. HEENT: Pupils equal, round, and reactive to light. CARDIAC: S1, S2, tachycardia. CHEST: Diminished air entry bilaterally. ABDOMEN: Mildly distended. No bowel sounds. EXTREMITIES: No cyanosis, clubbing or edema. NEUROLOGIC unresponsive this morning Results/Medications Result Diagram: 08/02/16 0500 08/02/16 0500 Results 24 hrs Laboratory Tests Test 08/01/16 11:25 08/01/16 12:28 08/01/16 13:42 08/01/16 14:32 Bedside Glucose 124 148 162 183 Test 08/01/16 15:36 08/01/16 16:24 08/01/16 17:08 08/01/16 18:11 Bedside Glucose 191 184 188 181 Test 08/01/16 19:03 08/01/16 20:06 08/01/16 21:02 08/01/16 22:00 Bedside Glucose 191 164 148 135 Test 08/01/16 23:03 08/01/16 23:51 08/02/16 00:10 08/02/16 01:08 Bedside Glucose 152 155 165 Arterial Blood HCO3 18.9 L Arterial Blood Base Excess -6.7 L Arterial Blood Oxygen Saturation 92.7 L Osiel Test ACCEPTAB Arterial Blood Gas Puncture Site Right Radial Arterial Blood Carboxyhemoglobin 0 Arterial Blood Date Drawn 08/02/2016 12:06:09 AM Arterial Blood Methemoglobin 0.1 Arterial Blood pCO2 (Temp correct) 38.3 Arterial Blood pH (Temp corrected) 7.311 L Arterial Blood pO2 (Temp corrected) 74.9 L Blood Gas A-a O2 Differential 130.1 H Blood Gas Actual Respiration Rate 29 Blood Gas Low PEEP Setting 5.0 Blood Gas Modality VENT - AC Blood Gas Notified Time 08/02/2016 12:14:05 AM Blood Gas Notified Whom RTR Blood Gas Respiration Rate 16.0 Blood Gas Specimen Source Blood arterial Blood Gas Temperature 37.0 Blood Gas Tidal Volume 550.0 FiO2 35.0 Oxyhemoglobin Percent 92.6 L Total Hemoglobin 12.6 Test 08/02/16 02:09 08/02/16 03:11 08/02/16 04:14 08/02/16 04:59 Bedside Glucose 164 179 160 162 Test 08/02/16 05:00 08/02/16 05:40 08/02/16 07:02 08/02/16 08:23 Alanine Aminotransferase (ALT/SGPT) 77 H Albumin 3.7 Albumin/Globulin Ratio 0.88 Alkaline Phosphatase 119 Anion Gap 33 #H Aspartate Amino Transf (AST/SGOT) 56 H Basophils # 0.0 Basophils % 0.0 Blood Morphology Comment Blood Urea Nitrogen 116 #H Calcium Level 7.1 L Carbon Dioxide Level 20 L Chloride Level 94 L Creatinine 11.49 #H Direct Bilirubin 0.00 Eosinophils # 0.0 Eosinophils % 0.0 Globulin 4.20 H Glucose Level 153 Hematocrit 32.9 L Hemoglobin 11.1 L Indirect Bilirubin 0.0 Lymphocytes # 0.6 L Lymphocytes % 4.6 L Magnesium Level 3.0 H Mean Corpuscular Hemoglobin 31.8 Mean Corpuscular Hemoglobin Concent 33.9 Mean Corpuscular Volume 93.9 Mean Platelet Volume 9.5 Monocytes # 0.9 Monocytes % 7.0 Neutrophils # 11.4 H Neutrophils % 88.4 H Nucleated Red Blood Cells # 0.0 Nucleated Red Blood Cells % 0.0 Phosphorus Level 15.0 H Platelet Count 249 Potassium Level 6.3 *H Random Vancomycin Level 18.9 Red Blood Count 3.50 L Red Cell Distribution Width 15.5 H Sodium Level 141 Total Bilirubin 0.0 L Total Protein 7.9 White Blood Count 12.9 H Bedside Glucose 159 165 140 Test 08/02/16 10:07 Bedside Glucose 109 Medications Current Medications Norepinephrine 16 mg/Dextrose 500 ml @ 1.87 mls/hr TITRATE IV Last administered on 07/28/16 21:18; Admin Dose 11.25 MLS/HR; Start 07/28/16 at 04: 00 Cefepime HCl (Maxipime 1gm/50 ml (Pmx)) 50 ml @ 100 mls/hr Q24H IVPB Last administered on 08/02/16 01:11; Admin Dose 100 MLS/HR; Start 07/28/16 at 01:00 Labetalol HCl 10 mg 10 mg Q6H PRN IV sbp > 160 Last administered on 08/02/16 00:15; Admin Dose 10 MG; Start 07/28/16 at 00:30 Propofol (Diprivan) 100 ml @ 3.609 mls/ hr Q12H PRN IV SEDATION Last administered on 08/02/16 08:35; Admin Dose 36.09 MLS/HR; Start 07/28/16 at 02: 30 Acetaminophen (Tylenol Supp) 650 mg Q6H PRN NC PAIN AND OR ELEVATED TEMP Last administered on 07/31/16 17:30; Admin Dose 650 MG; Start 07/28/16 at 08:30 Miscellaneous Information 1 ea NOTE XX ; Start 07/28/16 at 09:00 Glucose (Glutose) 15 gm Q15M PRN PO DECREASED GLUCOSE; Start 07/28/16 at 09:00 Glucose (Glutose) 22.5 gm Q15M PRN PO DECREASED GLUCOSE; Start 07/28/16 at 09: 00 Dextrose (D50w Syringe) 25 ml Q15M PRN IV DECREASED GLUCOSE; Start 07/28/16 at 09:00 Dextrose (D50w Syringe) 50 ml Q15M PRN IV DECREASED GLUCOSE; Start 07/28/16 at 09:00 Glucagon (Glucagen) 1 mg Q15M PRN IM DECREASED GLUCOSE; Start 07/28/16 at 09:00 Glucose (Glutose) 15 gm Q15M PRN BUCCAL DECREASED GLUCOSE; Start 07/28/16 at 09 :00 Diagnostic Test (Pha) (Accucheck) 1 ea Q1H XX Last administered on 08/02/16 10 :07; Admin Dose 1 EA; Start 07/28/16 at 10:00 Dextrose (D50w Syringe) 25 ml Q15M PRN IV Till BS 80 mg/dL or above x2; Start 07/28/16 at 10:00 Dextrose (D50w Syringe) 50 ml Q15M PRN IV Till BS 80 mg/dL or above x2; Start 07/28/16 at 10:00 IV Flush (NS 10 ml) 10 ml PRN PRN IV IV PROTOCOL; Start 07/29/16 at 17:00 Metoprolol Tartrate (Lopressor) 25 mg BID NGT Last administered on 08/02/16 08 :24; Admin Dose 25 MG; Start 07/31/16 at 09:00 Morphine Sulfate (morphine) 2 mg Q4 PRN IV PAIN Last administered on 08/02/16 00:07; Admin Dose 2 MG; Start 07/31/16 at 12:00 Methylprednisolone Sodium Succinate (Solu-Medrol) 60 mg Q12 IV Last administered on 08/02/16 08:23; Admin Dose 60 MG; Start 07/31/16 at 21:00 Pantoprazole 40 mg 40 mg DAILY@06 IV Last administered on 08/02/16 05:40; Admin Dose 40 MG; Start 08/02/16 at 06:00 Levetiracetam 1500 mg/Sodium Chloride 115 ml @ 420 mls/hr Q12 IVPB Last administered on 08/02/16 08:25; Admin Dose 420 MLS/HR; Start 08/01/16 at 21:00 Fentanyl/Dextrose (D5W) 100 ml @ 2.5 mls/hr TITRATE IV Last administered on 01:51; Admin Dose 2.5 MLS/HR; Start 08/02/16 at 01:00 Lorazepam (Ativan) 1 mg Q1H PRN IV SEIZURES Last administered on 08/02/16 08: 23; Admin Dose 1 MG; Start 08/02/16 at 02:00 Assessment/Plan Chief Complaint/Hosp Course IMPRESSION: 1. s/p Cardiopulmonary arrest. 2. 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 3. End-stage renal failure. 4. No evidence of occlusive lesions on cardiac catheterization. 5. HTN heart Disease 6. Asthma RECS 1. Vent support 2. Daily assessment of mental status 3. EEG. 4. Continue antiepileptics. 5. MRI of brain when stable. 6. Continue hemodialysis with correction of electrolytes. 7. Discussed prognosis with family in view of high likelihood of significant anoxic encephalopathy. Discussed need for tracheostomy and PEG tube placement with family who will likely proceed in the next few days. Ventilator adjustments were made Problems: JAVED PIERCE MD, [facility] Aug 02, 2016 10:33
--- NOTE | 2016-08-02 13:09 | CONS ---
Date/Time of Note Date/Time of Note DATE: 08/02/16 TIME: 13:05 Consult Date/Type/Reason Admit Date/Time Jul 27, 2016 at 23:29 Initial Consult Date 07/28/16 Type of Consultation: neurology Reason for Consultation anoxic injury, seizure eval Subjective sedation held, agonal breathing no LE jerking noted when sedation is held remains unresponsive Objective Vital Signs Date Time Temp Pulse Resp B/P Pulse Ox O2 Delivery O2 Flow Rate FiO2 08/02/16 13:00 95 08/02/16 12:30 17 156/87 96 Mechanical Ventilator 08/02/16 12:00 99.2 08/02/16 11:05 50 Intake and Output 08/01/16 08/01/16 08/02/16 15:00 23:00 07:00 Intake Total 483 ml 707.36 ml 684.22 ml Output Total 50 ml 25 ml Balance 483 ml 657.36 ml 659.22 ml Constitutional: other (comatose) Head: atraumatic, normocephalic Eyes: EOMI, nl conjunctiva, nl lids ENMT: nl external ears & nose, nl lips & teeth, nl nasal mucosa & septum Neck: non-tender, supple Respiratory: normal air movement Cardiovascular: nl pulses, regular rate and rhythm Extremities: normal pulses Neurological: other (Intubated, ventilated, off sedation, weak corneal reflexes , gag present) no withdrawal in extremities, not following commands no seizure noted Results/Medications Result Diagram: 08/02/16 0500 08/02/16 0500 Results 24 hrs Laboratory Tests Test 08/01/16 13:42 08/01/16 14:32 08/01/16 15:36 08/01/16 16:24 Bedside Glucose 162 183 191 184 Test 08/01/16 17:08 08/01/16 18:11 08/01/16 19:03 08/01/16 20:06 Bedside Glucose 188 181 191 164 Test 08/01/16 21:02 08/01/16 22:00 08/01/16 23:03 08/01/16 23:51 Bedside Glucose 148 135 152 Arterial Blood HCO3 18.9 L Arterial Blood Base Excess -6.7 L Arterial Blood Oxygen Saturation 92.7 L Osiel Test ACCEPTAB Arterial Blood Gas Puncture Site Right Radial Arterial Blood Carboxyhemoglobin 0 Arterial Blood Date Drawn 08/02/2016 12:06:09 AM Arterial Blood Methemoglobin 0.1 Arterial Blood pCO2 (Temp correct) 38.3 Arterial Blood pH (Temp corrected) 7.311 L Arterial Blood pO2 (Temp corrected) 74.9 L Blood Gas A-a O2 Differential 130.1 H Blood Gas Actual Respiration Rate 29 Blood Gas Low PEEP Setting 5.0 Blood Gas Modality VENT - AC Blood Gas Notified Time 08/02/2016 12:14:05 AM Blood Gas Notified Whom RTR Blood Gas Respiration Rate 16.0 Blood Gas Specimen Source Blood arterial Blood Gas Temperature 37.0 Blood Gas Tidal Volume 550.0 FiO2 35.0 Oxyhemoglobin Percent 92.6 L Total Hemoglobin 12.6 Test 08/02/16 00:10 08/02/16 01:08 08/02/16 02:09 08/02/16 03:11 Bedside Glucose 155 165 164 179 Test 08/02/16 04:14 08/02/16 04:59 08/02/16 05:00 08/02/16 05:40 Bedside Glucose 160 162 159 Alanine Aminotransferase (ALT/SGPT) 77 H Albumin 3.7 Albumin/Globulin Ratio 0.88 Alkaline Phosphatase 119 Anion Gap 33 #H Aspartate Amino Transf (AST/SGOT) 56 H Basophils # 0.0 Basophils % 0.0 Blood Morphology Comment Blood Urea Nitrogen 116 #H Calcium Level 7.1 L Carbon Dioxide Level 20 L Chloride Level 94 L Creatinine 11.49 #H Direct Bilirubin 0.00 Eosinophils # 0.0 Eosinophils % 0.0 Globulin 4.20 H Glucose Level 153 Hematocrit 32.9 L Hemoglobin 11.1 L Indirect Bilirubin 0.0 Lymphocytes # 0.6 L Lymphocytes % 4.6 L Magnesium Level 3.0 H Mean Corpuscular Hemoglobin 31.8 Mean Corpuscular Hemoglobin Concent 33.9 Mean Corpuscular Volume 93.9 Mean Platelet Volume 9.5 Monocytes # 0.9 Monocytes % 7.0 Neutrophils # 11.4 H Neutrophils % 88.4 H Nucleated Red Blood Cells # 0.0 Nucleated Red Blood Cells % 0.0 Phosphorus Level 15.0 H Platelet Count 249 Potassium Level 6.3 *H Random Vancomycin Level 18.9 Red Blood Count 3.50 L Red Cell Distribution Width 15.5 H Sodium Level 141 Total Bilirubin 0.0 L Total Protein 7.9 White Blood Count 12.9 H Test 08/02/16 07:02 08/02/16 08:23 08/02/16 10:07 08/02/16 11:35 Bedside Glucose 165 140 109 126 Medications Current Medications Norepinephrine 16 mg/Dextrose 500 ml @ 1.87 mls/hr TITRATE IV Last administered on 07/28/16 21:18; Admin Dose 11.25 MLS/HR; Start 07/28/16 at 04: 00 Cefepime HCl (Maxipime 1gm/50 ml (Pmx)) 50 ml @ 100 mls/hr Q24H IVPB Last administered on 08/02/16 01:11; Admin Dose 100 MLS/HR; Start 07/28/16 at 01:00 Labetalol HCl 10 mg 10 mg Q6H PRN IV sbp > 160 Last administered on 08/02/16 00:15; Admin Dose 10 MG; Start 07/28/16 at 00:30 Propofol (Diprivan) 100 ml @ 3.609 mls/ hr Q12H PRN IV SEDATION Last administered on 08/02/16 11:46; Admin Dose 36.09 MLS/HR; Start 07/28/16 at 02: 30 Acetaminophen (Tylenol Supp) 650 mg Q6H PRN [place] PAIN AND OR ELEVATED TEMP Last administered on 07/31/16 17:30; Admin Dose 650 MG; Start 07/28/16 at 08:30 Miscellaneous Information 1 ea NOTE XX ; Start 07/28/16 at 09:00 Glucose (Glutose) 15 gm Q15M PRN PO DECREASED GLUCOSE; Start 07/28/16 at 09:00 Glucose (Glutose) 22.5 gm Q15M PRN PO DECREASED GLUCOSE; Start 07/28/16 at 09: 00 Dextrose (D50w Syringe) 25 ml Q15M PRN IV DECREASED GLUCOSE; Start 07/28/16 at 09:00 Dextrose (D50w Syringe) 50 ml Q15M PRN IV DECREASED GLUCOSE; Start 07/28/16 at 09:00 Glucagon (Glucagen) 1 mg Q15M PRN IM DECREASED GLUCOSE; Start 07/28/16 at 09:00 Glucose (Glutose) 15 gm Q15M PRN BUCCAL DECREASED GLUCOSE; Start 07/28/16 at 09 :00 Diagnostic Test (Pha) (Accucheck) 1 ea Q1H XX Last administered on 08/02/16 12 :42; Admin Dose 1 EA; Start 07/28/16 at 10:00 Dextrose (D50w Syringe) 25 ml Q15M PRN IV Till BS 80 mg/dL or above x2; Start 07/28/16 at 10:00 Dextrose (D50w Syringe) 50 ml Q15M PRN IV Till BS 80 mg/dL or above x2; Start 07/28/16 at 10:00 IV Flush (NS 10 ml) 10 ml PRN PRN IV IV PROTOCOL; Start 07/29/16 at 17:00 Metoprolol Tartrate (Lopressor) 25 mg BID NGT Last administered on 08/02/16 08 :24; Admin Dose 25 MG; Start 07/31/16 at 09:00 Morphine Sulfate (morphine) 2 mg Q4 PRN IV PAIN Last administered on 08/02/16 00:07; Admin Dose 2 MG; Start 07/31/16 at 12:00 Methylprednisolone Sodium Succinate (Solu-Medrol) 60 mg Q12 IV Last administered on 08/02/16 08:23; Admin Dose 60 MG; Start 07/31/16 at 21:00 Pantoprazole 40 mg 40 mg DAILY@06 IV Last administered on 08/02/16 05:40; Admin Dose 40 MG; Start 08/02/16 at 06:00 Levetiracetam 1500 mg/Sodium Chloride 115 ml @ 420 mls/hr Q12 IVPB Last administered on 08/02/16 08:25; Admin Dose 420 MLS/HR; Start 08/01/16 at 21:00 Fentanyl/Dextrose (D5W) 100 ml @ 2.5 mls/hr TITRATE IV Last administered on 01:51; Admin Dose 2.5 MLS/HR; Start 08/02/16 at 01:00 Lorazepam (Ativan) 1 mg Q1H PRN IV SEIZURES Last administered on 08/02/16 08: 23; Admin Dose 1 MG; Start 08/02/16 at 02:00 Assessment/Plan Chief Complaint/Hosp Course 56 year old M with hx of ESRD, HTN, DM, Asthma began experiencing SOB suffered PEA arrest with ROSC for 20 mins, STEMI s/p cardiac catheterization with no intervention with possible seizure activity vs. post anoxic myoclonus. EEG showed burst suppression pattern suggesting severe encephalopathy with seizure activity. CT brain showed nothing acute. Examination showed positive corneals, pupillary reflexes and gag reflex. -continue on Keppra 1500 mg q12h -sedation restarted for agonal breathing, family concerned regarding breathing requesting further workup to determine cause -MRI Brain without contrast to evaluate for ischemic injury -burst suppression generally associated with a poor prognosis for neurologic recovery -will continue to follow, discussed recommendations w daughter at bedside family leaning towards trach/PEG upon goals of care discussion Problems: TORI CHERY MD Aug 02, 2016 13:09
--- NOTE | 2016-08-02 14:42 | PN ---
Date/Time of Note Date/Time of Note DATE: 08/02/16 TIME: 14:40 Assessment/Plan VTE Prophylaxis VTE Prophylaxis Intervention: heparin Assessment/Plan Chief Complaint/Hosp Course 1. PEA s/p cardiac arrest with ROSC - will admit the patient to the ICU, continue telemetry monitoring, f/u cardio recs, LHC - negative for coronary artery disease, ECHO, carotid duplex -Etiology of PEA likely 2/2 Hypoxia -CT Brain shows no CVA or signs of anoxic injury but EEG shows presence of burst suppression pattern throughout the tracing, which is severely encephalopathic, with epileptiform activity. -Pt having myoclonic jerks vs Seizures and has been started on Keppra by Neuro, mentation is still poor off sedation and will likely need Trach/PEG 2. ESRD on HD - dialysis now, and prn as per nephrology 3. SIRS with elevated white count and fever- R Lung opacity noted and may be Asp PNA -cont cefepime/vanc 4. VDRF -pulm consult appreciated 5. Hypotension - cardiac shock vs septic shock - continue with pressor support 6. CHF - acute - diastolic vs systolic dysfunction - fluid to be removed via dialysis - monitor I/O's 7. Metabolic with respiratory acidosis - 2/2 to cardiac arrest - s/p bicarb- resolved 8. Essential hypertension - hold medications as patient is hypotensive 9. Type II DM - uncontrolled, check Hgba1c, ISS, lantus 10. Asthma - currently on vent, continue with breathing treatments 11. Smoking abuse - patient will be counseled on cessation once extubated 12. Obesity - consider nutrition consult once extubated 13. GI ppx - protonix 14. DVT ppx - heparin Problems: Subjective 24 Hr Interval Summary Subjective hx not possible: pt non-verbal Exam/Review of Systems Vital Signs Vitals Vital Signs Date Time Temp Pulse Resp B/P Pulse Ox O2 Delivery O2 Flow Rate FiO2 08/02/16 14:30 91 08/02/16 13:30 16 147/73 98 Mechanical Ventilator 08/02/16 12:00 99.2 08/02/16 11:05 50 Intake and Output 08/01/16 08/01/16 08/02/16 15:00 23:00 07:00 Intake Total 483 ml 707.36 ml 684.22 ml Output Total 50 ml 25 ml Balance 483 ml 657.36 ml 659.22 ml Exam Constitutional: non-verbal ENMT: intubated Respiratory: clear to auscultation Cardiovascular: regular rate and rhythm Gastrointestinal: soft, No distended Musculoskeletal: nl extremities to inspection Results Result Diagram: 08/02/16 0500 08/02/16 0500 Results 24 hrs Laboratory Tests Test 08/01/16 15:36 08/01/16 16:24 08/01/16 17:08 08/01/16 18:11 Bedside Glucose 191 184 188 181 Test 08/01/16 19:03 08/01/16 20:06 08/01/16 21:02 08/01/16 22:00 Bedside Glucose 191 164 148 135 Test 08/01/16 23:03 08/01/16 23:51 08/02/16 00:10 08/02/16 01:08 Bedside Glucose 152 155 165 Arterial Blood HCO3 18.9 L Arterial Blood Base Excess -6.7 L Arterial Blood Oxygen Saturation 92.7 L Osiel Test ACCEPTAB Arterial Blood Gas Puncture Site Right Radial Arterial Blood Carboxyhemoglobin 0 Arterial Blood Date Drawn 08/02/2016 12:06:09 AM Arterial Blood Methemoglobin 0.1 Arterial Blood pCO2 (Temp correct) 38.3 Arterial Blood pH (Temp corrected) 7.311 L Arterial Blood pO2 (Temp corrected) 74.9 L Blood Gas A-a O2 Differential 130.1 H Blood Gas Actual Respiration Rate 29 Blood Gas Low PEEP Setting 5.0 Blood Gas Modality VENT - AC Blood Gas Notified Time 08/02/2016 12:14:05 AM Blood Gas Notified Whom RTR Blood Gas Respiration Rate 16.0 Blood Gas Specimen Source Blood arterial Blood Gas Temperature 37.0 Blood Gas Tidal Volume 550.0 FiO2 35.0 Oxyhemoglobin Percent 92.6 L Total Hemoglobin 12.6 Test 08/02/16 02:09 08/02/16 03:11 08/02/16 04:14 08/02/16 04:59 Bedside Glucose 164 179 160 162 Test 08/02/16 05:00 08/02/16 05:40 08/02/16 07:02 08/02/16 08:23 Alanine Aminotransferase (ALT/SGPT) 77 H Albumin 3.7 Albumin/Globulin Ratio 0.88 Alkaline Phosphatase 119 Anion Gap 33 #H Aspartate Amino Transf (AST/SGOT) 56 H Basophils # 0.0 Basophils % 0.0 Blood Morphology Comment Blood Urea Nitrogen 116 #H Calcium Level 7.1 L Carbon Dioxide Level 20 L Chloride Level 94 L Creatinine 11.49 #H Direct Bilirubin 0.00 Eosinophils # 0.0 Eosinophils % 0.0 Globulin 4.20 H Glucose Level 153 Hematocrit 32.9 L Hemoglobin 11.1 L Indirect Bilirubin 0.0 Lymphocytes # 0.6 L Lymphocytes % 4.6 L Magnesium Level 3.0 H Mean Corpuscular Hemoglobin 31.8 Mean Corpuscular Hemoglobin Concent 33.9 Mean Corpuscular Volume 93.9 Mean Platelet Volume 9.5 Monocytes # 0.9 Monocytes % 7.0 Neutrophils # 11.4 H Neutrophils % 88.4 H Nucleated Red Blood Cells # 0.0 Nucleated Red Blood Cells % 0.0 Phosphorus Level 15.0 H Platelet Count 249 Potassium Level 6.3 *H Random Vancomycin Level 18.9 Red Blood Count 3.50 L Red Cell Distribution Width 15.5 H Sodium Level 141 Total Bilirubin 0.0 L Total Protein 7.9 White Blood Count 12.9 H Bedside Glucose 159 165 140 Test 08/02/16 10:07 08/02/16 11:35 08/02/16 12:37 08/02/16 13:01 Bedside Glucose 109 126 137 141 Test 08/02/16 14:06 Bedside Glucose 190 Medications Medications Current Medications Norepinephrine 16 mg/Dextrose 500 ml @ 1.87 mls/hr TITRATE IV Last administered on 07/28/16 21:18; Admin Dose 11.25 MLS/HR; Start 07/28/16 at 04: 00 Cefepime HCl (Maxipime 1gm/50 ml (Pmx)) 50 ml @ 100 mls/hr Q24H IVPB Last administered on 08/02/16 01:11; Admin Dose 100 MLS/HR; Start 07/28/16 at 01:00 Labetalol HCl 10 mg 10 mg Q6H PRN IV sbp > 160 Last administered on 08/02/16 00:15; Admin Dose 10 MG; Start 07/28/16 at 00:30 Propofol (Diprivan) 100 ml @ 3.609 mls/ hr Q12H PRN IV SEDATION Last administered on 08/02/16 14:15; Admin Dose 36.09 MLS/HR; Start 07/28/16 at 02: 30 Acetaminophen (Tylenol Supp) 650 mg Q6H PRN [place] PAIN AND OR ELEVATED TEMP Last administered on 07/31/16 17:30; Admin Dose 650 MG; Start 07/28/16 at 08:30 Miscellaneous Information 1 ea NOTE XX ; Start 07/28/16 at 09:00 Glucose (Glutose) 15 gm Q15M PRN PO DECREASED GLUCOSE; Start 07/28/16 at 09:00 Glucose (Glutose) 22.5 gm Q15M PRN PO DECREASED GLUCOSE; Start 07/28/16 at 09: 00 Dextrose (D50w Syringe) 25 ml Q15M PRN IV DECREASED GLUCOSE; Start 07/28/16 at 09:00 Dextrose (D50w Syringe) 50 ml Q15M PRN IV DECREASED GLUCOSE; Start 07/28/16 at 09:00 Glucagon (Glucagen) 1 mg Q15M PRN IM DECREASED GLUCOSE; Start 07/28/16 at 09:00 Glucose (Glutose) 15 gm Q15M PRN BUCCAL DECREASED GLUCOSE; Start 07/28/16 at 09 :00 Diagnostic Test (Pha) (Accucheck) 1 ea Q1H XX Last administered on 08/02/16 14 :12; Admin Dose 1 EA; Start 07/28/16 at 10:00 Dextrose (D50w Syringe) 25 ml Q15M PRN IV Till BS 80 mg/dL or above x2; Start 07/28/16 at 10:00 Dextrose (D50w Syringe) 50 ml Q15M PRN IV Till BS 80 mg/dL or above x2; Start 07/28/16 at 10:00 IV Flush (NS 10 ml) 10 ml PRN PRN IV IV PROTOCOL; Start 07/29/16 at 17:00 Metoprolol Tartrate (Lopressor) 25 mg BID NGT Last administered on 08/02/16 08 :24; Admin Dose 25 MG; Start 07/31/16 at 09:00 Morphine Sulfate (morphine) 2 mg Q4 PRN IV PAIN Last administered on 08/02/16 00:07; Admin Dose 2 MG; Start 07/31/16 at 12:00 Methylprednisolone Sodium Succinate (Solu-Medrol) 60 mg Q12 IV Last administered on 08/02/16 08:23; Admin Dose 60 MG; Start 07/31/16 at 21:00 Pantoprazole 40 mg 40 mg DAILY@06 IV Last administered on 08/02/16 05:40; Admin Dose 40 MG; Start 08/02/16 at 06:00 Levetiracetam 1500 mg/Sodium Chloride 115 ml @ 420 mls/hr Q12 IVPB Last administered on 08/02/16 08:25; Admin Dose 420 MLS/HR; Start 08/01/16 at 21:00 Fentanyl/Dextrose (D5W) 100 ml @ 2.5 mls/hr TITRATE IV Last administered on 01:51; Admin Dose 2.5 MLS/HR; Start 08/02/16 at 01:00 Lorazepam 1 mg 1 mg Q1H PRN IV SEIZURES Last administered on 08/02/16 14:15; Admin Dose 1 MG; Start 08/02/16 at 02:00 Vancomycin HCl (Vancocin) 250 ml @ 125 mls/hr ONCE IVPB ; Start 08/02/16 at 15: 00; Stop 08/02/16 at 20:00 BARNEY MCKEE Aug 02, 2016 14:42
[2016-08-02] MEDS ORDERED: VANCOMYCIN 1 GM in NS 250 ML IVPB SCH (15:00)
[2016-08-02 18:06] LABS: AADO2 Arterial 197.9 mmHg (7.0-24.0); Allen Test ACCEPTAB; Arterial Base Excess -4.1 mmol/L (-3.0-3); Arterial COHb 0.1 % (0.0-3.0); Arterial Fraction of Oxyhgb 96.2 % (93.0-99.0); Arterial HCO3 23.6 mmol/L (22.0-26.0); Arterial MetHb 0.2 % (0.0-1.5); Arterial Total Hemglobin 12.6 g/dl (12.0-18.0); MODE VENT - AC
[2016-08-02] MEDS: PIPER-TAZO 2.25 GM (PMX) 50 ML IVPB SCH (21:07)
[2016-08-03] VITALS (66 sets, daily range): BP systolic 97–150; BP diastolic 50–108; PULSE 71–104; RESP 17–23
[2016-08-03] MEDS: ACETAMINOPHEN 650MG/20.3ML CUP NGT PRN (00:12)
[2016-08-03] MEDS: ACCUCHECK XX SCH ×13 (00:12→11:54)
[2016-08-03] MEDS: FENTAnyl 1,000 MCG in DEXTROSE 5% 80 ML IV SCH ×3 (01:28→21:35)
[2016-08-03] MEDS: PROPOFOL 100 ML IV PRN ×7 (01:28→17:12)
[2016-08-03] MEDS: ALBUTEROL HFA 8 GM INHALER INH SCH ×7 (01:37→20:17)
[2016-08-03] MEDS: IPRATROPIUM (HFA) 12.9 GM INHALER INH SCH ×7 (01:37→20:17)
[2016-08-03] MEDS: LORAZEPAM 2 MG INJ IV PRN ×10 (01:47→23:14)
[2016-08-03 05:00] LABS: AADO2 Arterial 203.9 mmHg (7.0-24.0); Allen Test ACCEPTAB; Arterial Base Excess -4.8 mmol/L (-3.0-3); Arterial COHb 0.3 % (0.0-3.0); Arterial Fraction of Oxyhgb 95.9 % (93.0-99.0); Arterial HCO3 21.9 mmol/L (22.0-26.0); Arterial MetHb 0.2 % (0.0-1.5); Arterial Total Hemglobin 11.8 g/dl (12.0-18.0); MODE VENT - AC
[2016-08-03 05:06] LABS: BASOPHILS % 0.2 % (0.0-2.0); EOSINOPHILS # 0.1 10^3/ul (0.0-0.5); EOSINOPHILS % 0.6 % (0.0-7.0); HEMATOCRIT 32.7 % (42.0-52.0); LYMPHOCYTES % 16.1 % (15.0-51.0); MEAN CORPUSCULAR HEMOGLOBIN 31.5 pg (29.0-33.0); MEAN CORPUSCULAR HGB CONC 33.6 g/dl (32.0-37.0); MEAN CORPUSCULAR VOLUME 93.9 fl (82.0-101.0); MONOCYTE # 1.4 10^3/ul (0.3-0.9); MONOCYTES % 11.3 % (0.0-11.0); NEUTROPHILS % 71.8 % (39.0-77.0); PLATELET COUNT 280 10^3/UL (140-440); RED BLOOD COUNT 3.49 10^6/ul (4.70-6.10); RED CELL DISTRIBUTION WIDTH 15.6 % (11.5-14.5); UNCORRECTED WBC 12.5 10^3/ul (4.8-10.8); WHITE BLOOD COUNT 12.5 10^3/ul (4.8-10.8)
[2016-08-03 05:14] LABS: POTASSIUM 4.9 mmol/L (3.5-5.1)
[2016-08-03 05:17] LABS: CALCIUM 6.9 mg/dl (8.4-10.2); MAGNESIUM 2.8 mg/dl (1.7-2.5)
[2016-08-03 05:32] LABS: CONDITION 1; LH ANALYZER COMMENTS 1
[2016-08-03 05:33] LABS: CREATININE 8.99 mg/dl (0.61-1.24); PHOSPHORUS 13.1 mg/dl (2.5-4.9)
[2016-08-03] MEDS: PANTOPRAZOLE 40 MG INJ IV SCH (06:08)
[2016-08-03] MEDS: PIPER-TAZO 2.25 GM (PMX) 50 ML IVPB SCH ×3 (06:08→21:31)
[2016-08-03 07:43] LABS: AADO2 Arterial 196.2 mmHg (7.0-24.0); Allen Test ACCEPTAB; Arterial COHb 0.3 % (0.0-3.0); Arterial Fraction of Oxyhgb 96.3 % (93.0-99.0); Arterial HCO3 24.1 mmol/L (22.0-26.0); Arterial MetHb 0.2 % (0.0-1.5); Arterial Total Hemglobin 11.8 g/dl (12.0-18.0); MODE VENT - AC
[2016-08-03] MEDS: METOPROLOL 25 MG TAB NGT SCH ×2 (08:12→21:30)
[2016-08-03] MEDS: LEVETIRACETAM IV 1,500 MG in SOD CHLORIDE 0.9% 100 ML IVPB SCH ×2 (08:19→20:01)
--- NOTE | 2016-08-03 08:29 | CONS ---
Date/Time of Note Date/Time of Note DATE: 08/03/16 TIME: 08:23 Assessment/Plan Assessment/Plan Chief Complaint/Hosp Course #1 end-stage renal disease , this patient has ESRD due to diabetic nephropathy and has been on maintenance hemodialysis for about 1 year. He has dialysis ordered for today. #2 the patient is status post a cardiac arrest at home #3 altered level of consciousness, probable anoxic encephalopathy. neuro work up is in progress #4 insulin-dependent diabetes mellitus #5 seizures #6 ventilator dependent respiratory failure , h/o COPD and pneumonia on CXR . Problems: Consultation Date/Type/Reason Admit Date/Time Jul 27, 2016 at 23:29 Initial Consult Date 07/28/16 Type of Consultation: renal 24 HR Interval Summary Free Text/Dictation He is unresponsive , on ventilator . Subjective hx not possible: pt non-verbal Exam/Review of Systems Vital Signs Vitals Vital Signs Date Time Temp Pulse Resp B/P Pulse Ox O2 Delivery O2 Flow Rate FiO2 08/03/16 07:30 99.7 79 18 119/70 99 Mechanical Ventilator 08/03/16 07:30 50 Intake and Output 08/02/16 08/02/16 08/03/16 15:00 23:00 07:00 Intake Total 1346.40 ml 963.13 ml 586.72 ml Output Total 3500 ml 0 ml 0 ml Balance -2153.60 ml 963.13 ml 586.72 ml Exam Constitutional: non-verbal Respiratory: clear to auscultation, diminished breath sounds Cardiovascular: regular rate and rhythm Musculoskeletal: nl extremities to inspection Results Result Diagram: 08/03/16 0400 08/03/16 0400 Results 24 hrs Laboratory Tests Test 08/02/16 10:07 08/02/16 11:35 08/02/16 12:37 08/02/16 13:01 Bedside Glucose 109 126 137 141 Test 08/02/16 14:06 08/02/16 14:58 08/02/16 16:00 08/02/16 17:01 Bedside Glucose 190 198 189 157 Test 08/02/16 17:45 08/02/16 17:54 08/02/16 18:50 08/02/16 20:11 Arterial Blood HCO3 23.6 Arterial Blood Base Excess -4.1 L Arterial Blood Oxygen Saturation 96.5 Osiel Test ACCEPTAB Arterial Blood Gas Puncture Site Right Radial Arterial Blood Carboxyhemoglobin 0.1 Arterial Blood Date Drawn 08/02/2016 5:55:09 PM Arterial Blood Methemoglobin 0.2 Arterial Blood pCO2 (Temp correct) 55.0 H Arterial Blood pH (Temp corrected) 7.251 *L Arterial Blood pO2 (Temp corrected) 96.7 Blood Gas A-a O2 Differential 197.9 H Blood Gas Actual Respiration Rate 19 Blood Gas Critical Value Read Back Holly RUSSELL RN Blood Gas Low PEEP Setting 5.0 Blood Gas Modality VENT - AC Blood Gas Notified Time 08/02/2016 6:06:46 PM Blood Gas Notified Whom TM Blood Gas Respiration Rate 16.0 Blood Gas Specimen Source Blood arterial Blood Gas Temperature 37.0 Blood Gas Tidal Volume 500.0 FiO2 50.0 Oxyhemoglobin Percent 96.2 Total Hemoglobin 12.6 Bedside Glucose 131 124 96 Test 08/02/16 21:05 08/02/16 22:08 08/02/16 23:06 08/03/16 00:10 Bedside Glucose 92 97 91 102 Test 08/03/16 01:04 08/03/16 01:50 08/03/16 02:59 08/03/16 04:00 Bedside Glucose 115 128 141 Anion Gap 27 H Basophils # 0.0 Basophils % 0.2 Blood Morphology Comment Blood Urea Nitrogen 87 H Calcium Level 6.9 L Carbon Dioxide Level 24 Chloride Level 93 L Creatinine 8.99 #H Eosinophils # 0.1 Eosinophils % 0.6 Glucose Level 112 # Hematocrit 32.7 L Hemoglobin 11.0 L Lymphocytes # 2.0 Lymphocytes % 16.1 Magnesium Level 2.8 H Mean Corpuscular Hemoglobin 31.5 Mean Corpuscular Hemoglobin Concent 33.6 Mean Corpuscular Volume 93.9 Mean Platelet Volume 9.0 Monocytes # 1.4 H Monocytes % 11.3 H Neutrophils # 9.0 H Neutrophils % 71.8 Nucleated Red Blood Cells # 0.0 Nucleated Red Blood Cells % 0.0 Phosphorus Level 13.1 H Platelet Count 280 Potassium Level 4.9 Red Blood Count 3.49 L Red Cell Distribution Width 15.6 H Sodium Level 139 White Blood Count 12.5 H Test 08/03/16 04:03 08/03/16 04:52 08/03/16 05:00 08/03/16 06:07 Bedside Glucose 117 118 113 Arterial Blood HCO3 21.9 L Arterial Blood Base Excess -4.8 L Arterial Blood Oxygen Saturation 96.4 Osiel Test ACCEPTAB Arterial Blood Gas Puncture Site Right HEEL Arterial Blood Carboxyhemoglobin 0.3 Arterial Blood Date Drawn 08/03/2016 4:45:53 AM Arterial Blood Methemoglobin 0.2 Arterial Blood pCO2 (Temp correct) 47.3 H Arterial Blood pH (Temp corrected) 7.283 *L Arterial Blood pO2 (Temp corrected) 99.4 Blood Gas A-a O2 Differential 203.9 H Blood Gas Actual Respiration Rate 18 Blood Gas Critical Value Read Back Remington BRUSH RN Blood Gas Low PEEP Setting 5.0 Blood Gas Modality VENT - AC Blood Gas Notified Time 08/03/2016 5:00:06 AM Blood Gas Notified Whom UP Blood Gas Respiration Rate 18.0 Blood Gas Specimen Source Blood arterial Blood Gas Temperature 37.0 Blood Gas Tidal Volume 600.0 FiO2 50.0 Oxyhemoglobin Percent 95.9 Total Hemoglobin 11.8 L Test 08/03/16 07:00 08/03/16 07:02 08/03/16 08:10 Arterial Blood HCO3 24.1 Arterial Blood Base Excess -3.0 Arterial Blood Oxygen Saturation 96.8 Osiel Test ACCEPTAB Arterial Blood Gas Puncture Site Right Radial Arterial Blood Carboxyhemoglobin 0.3 Arterial Blood Date Drawn 08/03/2016 7:20:44 AM Arterial Blood Methemoglobin 0.2 Arterial Blood pCO2 (Temp correct) 52.3 H Arterial Blood pH (Temp corrected) 7.282 *L Arterial Blood pO2 (Temp corrected) 101.5 H Blood Gas A-a O2 Differential 196.2 H Blood Gas Actual Respiration Rate 18 Blood Gas Critical Value Read Back Holly RUSSELL RN Blood Gas Low PEEP Setting 5.0 Blood Gas Modality VENT - AC Blood Gas Notified Time 08/03/2016 7:42:36 AM Blood Gas Notified Whom JLD Blood Gas Respiration Rate 18.0 Blood Gas Specimen Source Blood arterial Blood Gas Temperature 37.0 Blood Gas Tidal Volume 600.0 FiO2 50.0 Oxyhemoglobin Percent 96.3 Total Hemoglobin 11.8 L Bedside Glucose 114 123 Medications Medications Current Medications Norepinephrine/ Dextrose (Levophed/D5W) 500 ml @ 1.87 mls/hr TITRATE IV Last administered on 07/28/16t 21:18; Admin Dose 11.25 MLS/HR; Start 07/28/16 at 04: 00 Labetalol HCl 10 mg 10 mg Q6H PRN IV sbp > 160 Last administered on 08/02/16 00:15; Admin Dose 10 MG; Start 07/28/16 at 00:30 Propofol (Diprivan) 100 ml @ 3.609 mls/ hr Q12H PRN IV SEDATION Last administered on 08/03/16 06:32; Admin Dose 36.09 MLS/HR; Start 07/28/16 at 02:30 Acetaminophen (Tylenol Supp) 650 mg Q6H PRN [place] PAIN AND OR ELEVATED TEMP Last administered on 07/31/16 17:30; Admin Dose 650 MG; Start 07/28/16 at 08:30 Miscellaneous Information 1 ea NOTE XX ; Start 07/28/16 at 09:00 Glucose (Glutose) 15 gm Q15M PRN PO DECREASED GLUCOSE; Start 07/28/16 at 09:00 Glucose (Glutose) 22.5 gm Q15M PRN PO DECREASED GLUCOSE; Start 07/28/16 at 09: 00 Dextrose (D50w Syringe) 25 ml Q15M PRN IV DECREASED GLUCOSE; Start 07/28/16 at 09:00 Dextrose (D50w Syringe) 50 ml Q15M PRN IV DECREASED GLUCOSE; Start 07/28/16 at 09:00 Glucagon (Glucagen) 1 mg Q15M PRN IM DECREASED GLUCOSE; Start 07/28/16 at 09:00 Glucose (Glutose) 15 gm Q15M PRN BUCCAL DECREASED GLUCOSE; Start 07/28/16 at 09 :00 Diagnostic Test (Pha) (Accucheck) 1 ea Q1H XX Last administered on 08/03/16 08: 05; Admin Dose 1 EA; Start 07/28/16 at 10:00 Dextrose (D50w Syringe) 25 ml Q15M PRN IV Till BS 80 mg/dL or above x2; Start 07/28/16 at 10:00 Dextrose (D50w Syringe) 50 ml Q15M PRN IV Till BS 80 mg/dL or above x2; Start 07/28/16 at 10:00 IV Flush (NS 10 ml) 10 ml PRN PRN IV IV PROTOCOL; Start 07/29/16 at 17:00 Metoprolol Tartrate (Lopressor) 25 mg BID NGT Last administered on 08/03/16 08: 12; Admin Dose 25 MG; Start 07/31/16 at 09:00 Morphine Sulfate (morphine) 2 mg Q4 PRN IV PAIN Last administered on 08/02/16 00:07; Admin Dose 2 MG; Start 07/31/16 at 12:00 Pantoprazole 40 mg 40 mg DAILY@06 IV Last administered on 08/03/16 06:08; Admin Dose 40 MG; Start 08/02/16 at 06:00 Levetiracetam 1500 mg/Sodium Chloride 115 ml @ 420 mls/hr Q12 IVPB Last administered on 08/03/16 08:19; Admin Dose 420 MLS/HR; Start 08/01/16 at 21:00 Fentanyl/Dextrose (D5W) 100 ml @ 2.5 mls/hr TITRATE IV Last administered on 01:28; Admin Dose 10 MLS/HR; Start 08/02/16 at 01:00 Lorazepam 1 mg 1 mg Q1H PRN IV SEIZURES Last administered on 08/03/16 08:11; Admin Dose 1 MG; Start 08/02/16 at 02:00 Piperacillin Sod/ Tazobactam Sod (Zosyn 2.25gm/ 50ml (Pmx)) 50 ml @ 100 mls/hr Q8 IVPB Last administered on 08/03/16 06:08; Admin Dose 100 MLS/HR; Start 08/02 at 22:00 Acetaminophen (Tylenol Liquid) 650 mg Q4H PRN N[place] PAIN AND OR ELEVATED TEMP Last administered on 08/03/16 00:12; Admin Dose 650 MG; Start 08/03/16 at 00:00 ROSCOE LANGE MD Aug 03, 2016 08:29
--- NOTE | 2016-08-03 09:31 | RADRPT ---
PROCEDURE: XR Chest. CLINICAL INDICATION: Shortness of breath. TECHNIQUE: Single frontal view. COMPARISON: 07/31/2016. FINDINGS: The endotracheal tube, nasogastric tube, right arm PICC line remain in satisfactory position. There is mild right basilar atelectasis, improved. The lungs are otherwise clear. The heart is enlarged. There is no pleural effusion. There is no pneumothorax. IMPRESSION: 1. Improved appearance of the right lung base. 2. No other change from 07/31/2016. RPTAT: QQ .Otoniel Melo MD, MD Date Time Electronically viewed and signed by .Otoniel Melo MD, MD on 08/03/2016 09:30 .R/
--- NOTE | 2016-08-03 10:03 | CONS ---
Date/Time of Note Date/Time of Note DATE: 08/03/16 TIME: 10:02 Consult Date/Type/Reason Admit Date/Time Jul 27, 2016 at 23:29 Initial Consult Date 07/28/16 Type of Consultation: pulmonary Subjective Patient more stable today appears normal comfortable with no abnormal breathing Remains hemodynamically stable Remains heavily sedated Objective Vital Signs Date Time Temp Pulse Resp B/P Pulse Ox O2 Delivery O2 Flow Rate FiO2 08/03/16 08:36 75 18 100 50 08/03/16 07:30 99.7 119/70 Mechanical Ventilator Intake and Output 08/02/16 08/02/16 08/03/16 15:00 23:00 07:00 Intake Total 1346.40 ml 963.13 ml 586.72 ml Output Total 3500 ml 0 ml 0 ml Balance -2153.60 ml 963.13 ml 586.72 ml PHYSICAL EXAMINATION GENERAL: Elderly gentleman, intubated on mechanical ventilation, orally intubated VITAL SIGNS: see below. HEENT: Pupils equal, round, and reactive to light. CARDIAC: S1, S2, tachycardia. CHEST: Diminished air entry bilaterally. ABDOMEN: Mildly distended. No bowel sounds. EXTREMITIES: No cyanosis, clubbing or edema. NEUROLOGIC unresponsive this morning Results/Medications Result Diagram: 08/03/16 0400 08/03/16 0400 Results 24 hrs Laboratory Tests Test 08/02/16 10:07 08/02/16 11:35 08/02/16 12:37 08/02/16 13:01 Bedside Glucose 109 126 137 141 Test 08/02/16 14:06 08/02/16 14:58 08/02/16 16:00 08/02/16 17:01 Bedside Glucose 190 198 189 157 Test 08/02/16 17:45 08/02/16 17:54 08/02/16 18:50 08/02/16 20:11 Arterial Blood HCO3 23.6 Arterial Blood Base Excess -4.1 L Arterial Blood Oxygen Saturation 96.5 Osiel Test ACCEPTAB Arterial Blood Gas Puncture Site Right Radial Arterial Blood Carboxyhemoglobin 0.1 Arterial Blood Date Drawn 08/02/2016 5:55:09 PM Arterial Blood Methemoglobin 0.2 Arterial Blood pCO2 (Temp correct) 55.0 H Arterial Blood pH (Temp corrected) 7.251 *L Arterial Blood pO2 (Temp corrected) 96.7 Blood Gas A-a O2 Differential 197.9 H Blood Gas Actual Respiration Rate 19 Blood Gas Critical Value Read Back N DREW DURAND Blood Gas Low PEEP Setting 5.0 Blood Gas Modality VENT - AC Blood Gas Notified Time 08/02/2016 6:06:46 PM Blood Gas Notified Whom TM Blood Gas Respiration Rate 16.0 Blood Gas Specimen Source Blood arterial Blood Gas Temperature 37.0 Blood Gas Tidal Volume 500.0 FiO2 50.0 Oxyhemoglobin Percent 96.2 Total Hemoglobin 12.6 Bedside Glucose 131 124 96 Test 08/02/16 21:05 08/02/16 22:08 08/02/16 23:06 08/03/16 00:10 Bedside Glucose 92 97 91 102 Test 08/03/16 01:04 08/03/16 01:50 08/03/16 02:59 08/03/16 04:00 Bedside Glucose 115 128 141 Anion Gap 27 H Basophils # 0.0 Basophils % 0.2 Blood Morphology Comment Blood Urea Nitrogen 87 H Calcium Level 6.9 L Carbon Dioxide Level 24 Chloride Level 93 L Creatinine 8.99 #H Eosinophils # 0.1 Eosinophils % 0.6 Glucose Level 112 # Hematocrit 32.7 L Hemoglobin 11.0 L Lymphocytes # 2.0 Lymphocytes % 16.1 Magnesium Level 2.8 H Mean Corpuscular Hemoglobin 31.5 Mean Corpuscular Hemoglobin Concent 33.6 Mean Corpuscular Volume 93.9 Mean Platelet Volume 9.0 Monocytes # 1.4 H Monocytes % 11.3 H Neutrophils # 9.0 H Neutrophils % 71.8 Nucleated Red Blood Cells # 0.0 Nucleated Red Blood Cells % 0.0 Phosphorus Level 13.1 H Platelet Count 280 Potassium Level 4.9 Red Blood Count 3.49 L Red Cell Distribution Width 15.6 H Sodium Level 139 White Blood Count 12.5 H Test 08/03/16 04:03 08/03/16 04:52 08/03/16 05:00 08/03/16 06:07 Bedside Glucose 117 118 113 Arterial Blood HCO3 21.9 L Arterial Blood Base Excess -4.8 L Arterial Blood Oxygen Saturation 96.4 Osiel Test ACCEPTAB Arterial Blood Gas Puncture Site Right HEEL Arterial Blood Carboxyhemoglobin 0.3 Arterial Blood Date Drawn 08/03/2016 4:45:53 AM Arterial Blood Methemoglobin 0.2 Arterial Blood pCO2 (Temp correct) 47.3 H Arterial Blood pH (Temp corrected) 7.283 *L Arterial Blood pO2 (Temp corrected) 99.4 Blood Gas A-a O2 Differential 203.9 H Blood Gas Actual Respiration Rate 18 Blood Gas Critical Value Read Back Remington BRUSH RN Blood Gas Low PEEP Setting 5.0 Blood Gas Modality VENT - AC Blood Gas Notified Time 08/03/2016 5:00:06 AM Blood Gas Notified Whom UP Blood Gas Respiration Rate 18.0 Blood Gas Specimen Source Blood arterial Blood Gas Temperature 37.0 Blood Gas Tidal Volume 600.0 FiO2 50.0 Oxyhemoglobin Percent 95.9 Total Hemoglobin 11.8 L Test 08/03/16 07:00 08/03/16 07:02 08/03/16 08:10 08/03/16 08:51 Arterial Blood HCO3 24.1 Arterial Blood Base Excess -3.0 Arterial Blood Oxygen Saturation 96.8 Osiel Test ACCEPTAB Arterial Blood Gas Puncture Site Right Radial Arterial Blood Carboxyhemoglobin 0.3 Arterial Blood Date Drawn 08/03/2016 7:20:44 AM Arterial Blood Methemoglobin 0.2 Arterial Blood pCO2 (Temp correct) 52.3 H Arterial Blood pH (Temp corrected) 7.282 *L Arterial Blood pO2 (Temp corrected) 101.5 H Blood Gas A-a O2 Differential 196.2 H Blood Gas Actual Respiration Rate 18 Blood Gas Critical Value Read Back Holly RUSSELL RN Blood Gas Low PEEP Setting 5.0 Blood Gas Modality VENT - AC Blood Gas Notified Time 08/03/2016 7:42:36 AM Blood Gas Notified Whom JLD Blood Gas Respiration Rate 18.0 Blood Gas Specimen Source Blood arterial Blood Gas Temperature 37.0 Blood Gas Tidal Volume 600.0 FiO2 50.0 Oxyhemoglobin Percent 96.3 Total Hemoglobin 11.8 L Bedside Glucose 114 123 125 Medications Current Medications Norepinephrine/ Dextrose (Levophed/D5W) 500 ml @ 1.87 mls/hr TITRATE IV Last administered on 07/28/16 21:18; Admin Dose 11.25 MLS/HR; Start 07/28/16 at 04: 00 Labetalol HCl 10 mg 10 mg Q6H PRN IV sbp > 160 Last administered on 08/02/16 00:15; Admin Dose 10 MG; Start 07/28/16 at 00:30 Propofol (Diprivan) 100 ml @ 3.609 mls/ hr Q12H PRN IV SEDATION Last administered on 08/03/16 09:54; Admin Dose 36.09 MLS/HR; Start 07/28/16 at 02:30 Acetaminophen (Tylenol Supp) 650 mg Q6H PRN [place] PAIN AND OR ELEVATED TEMP Last administered on 07/31/16 17:30; Admin Dose 650 MG; Start 07/28/16 at 08:30 Miscellaneous Information 1 ea NOTE XX ; Start 07/28/16 at 09:00 Glucose (Glutose) 15 gm Q15M PRN PO DECREASED GLUCOSE; Start 07/28/16 at 09:00 Glucose (Glutose) 22.5 gm Q15M PRN PO DECREASED GLUCOSE; Start 07/28/16 at 09: 00 Dextrose (D50w Syringe) 25 ml Q15M PRN IV DECREASED GLUCOSE; Start 07/28/16 at 09:00 Dextrose (D50w Syringe) 50 ml Q15M PRN IV DECREASED GLUCOSE; Start 07/28/16 at 09:00 Glucagon (Glucagen) 1 mg Q15M PRN IM DECREASED GLUCOSE; Start 07/28/16 at 09:00 Glucose (Glutose) 15 gm Q15M PRN BUCCAL DECREASED GLUCOSE; Start 07/28/16 at 09 :00 Diagnostic Test (Pha) (Accucheck) 1 ea Q1H XX Last administered on 08/03/16 09: 51; Admin Dose 1 EA; Start 07/28/16 at 10:00 Dextrose (D50w Syringe) 25 ml Q15M PRN IV Till BS 80 mg/dL or above x2; Start 07/28/16 at 10:00 Dextrose (D50w Syringe) 50 ml Q15M PRN IV Till BS 80 mg/dL or above x2; Start 07/28/16 at 10:00 IV Flush (NS 10 ml) 10 ml PRN PRN IV IV PROTOCOL; Start 07/29/16 at 17:00 Metoprolol Tartrate (Lopressor) 25 mg BID NGT Last administered on 08/03/16 08: 12; Admin Dose 25 MG; Start 07/31/16 at 09:00 Morphine Sulfate (morphine) 2 mg Q4 PRN IV PAIN Last administered on 08/02/16 00:07; Admin Dose 2 MG; Start 07/31/16 at 12:00 Pantoprazole 40 mg 40 mg DAILY@06 IV Last administered on 08/03/16 06:08; Admin Dose 40 MG; Start 08/02/16 at 06:00 Levetiracetam 1500 mg/Sodium Chloride 115 ml @ 420 mls/hr Q12 IVPB Last administered on 08/03/16 08:19; Admin Dose 420 MLS/HR; Start 08/01/16 at 21:00 Fentanyl/Dextrose (D5W) 100 ml @ 2.5 mls/hr TITRATE IV Last administered on 01:28; Admin Dose 10 MLS/HR; Start 08/02/16 at 01:00 Lorazepam 1 mg 1 mg Q1H PRN IV SEIZURES Last administered on 08/03/16 08:11; Admin Dose 1 MG; Start 08/02/16 at 02:00 Piperacillin Sod/ Tazobactam Sod (Zosyn 2.25gm/ 50ml (Pmx)) 50 ml @ 100 mls/hr Q8 IVPB Last administered on 08/03/16 06:08; Admin Dose 100 MLS/HR; Start 08/02 at 22:00 Acetaminophen (Tylenol Liquid) 650 mg Q4H PRN NGT PAIN AND OR ELEVATED TEMP Last administered on 08/03/16 00:12; Admin Dose 650 MG; Start 08/03/16 at 00:00 Assessment/Plan Chief Complaint/Hosp Course IMPRESSION: 1. s/p Cardiopulmonary arrest. 2. 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 3. End-stage renal failure. 4. No evidence of occlusive lesions on cardiac catheterization. 5. HTN heart Disease 6. Asthma RECS 1. Vent support 2. Daily assessment of mental status 3. EEG. MRI today 4. Continue antiepileptics. 5. Neurology recommendations. 6. Continue hemodialysis with correction of electrolytes. 7. Discussed prognosis with family in view of high likelihood of significant anoxic encephalopathy. Primary team had an extensive discussion with patient's family regarding goals of care If patient has significant neurological deficits and prognosis remains very poor family may switch to comfort measures. Problems: JAVED PIERCE MD, [facility] Aug 03, 2016 10:03
--- NOTE | 2016-08-03 12:02 | PN ---
Date/Time of Note Date/Time of Note DATE: 08/03/16 TIME: 12:00 Assessment/Plan VTE Prophylaxis VTE Prophylaxis Intervention: heparin Assessment/Plan Chief Complaint/Hosp Course 1. PEA s/p cardiac arrest with ROSC - will admit the patient to the ICU, continue telemetry monitoring, f/u cardio recs, LHC - negative for coronary artery disease, ECHO, carotid duplex -Etiology of PEA likely 2/2 Hypoxia -CT Brain shows no CVA or signs of anoxic injury but EEG shows presence of burst suppression pattern throughout the tracing, which is severely encephalopathic, with epileptiform activity. -Pt having myoclonic jerks vs Seizures, cont Keppra per Neuro, also on max Propofol and Fentanyl as well as Ativan PRN, mentation is still poor off sedation and will likely need Trach/PEG -MRI Brain unable to be done as pt on max sedation and still moving 2. ESRD on HD - dialysis now, and prn as per nephrology 3. SIRS with elevated white count and fever- R Lung opacity noted and may be Asp PNA -cont cefepime/vanc 4. VDRF -pulm consult appreciated 5. Hypotension - cardiac shock vs septic shock - continue with pressor support 6. CHF - acute - diastolic vs systolic dysfunction - fluid to be removed via dialysis - monitor I/O's 7. Metabolic with respiratory acidosis - 2/2 to cardiac arrest - s/p bicarb- resolved 8. Essential hypertension - hold medications as patient is hypotensive 9. Type II DM-A1C at 7.3 -DC Insulin gtt and start Lantus, NISS 10. Asthma - currently on vent, continue with breathing treatments 11. Smoking abuse - patient will be counseled on cessation once extubated 12. Obesity - consider nutrition consult once extubated 13. GI ppx - protonix 14. DVT ppx - heparin Problems: Subjective 24 Hr Interval Summary Subjective hx not possible: pt non-verbal Exam/Review of Systems Vital Signs Vitals Vital Signs Date Time Temp Pulse Resp B/P Pulse Ox O2 Delivery O2 Flow Rate FiO2 08/03/16 10:38 71 18 100 40 08/03/16 10:30 116/66 Mechanical Ventilator 08/03/16 07:30 99.7 Intake and Output 08/02/16 08/02/16 08/03/16 15:00 23:00 07:00 Intake Total 1346.40 ml 963.13 ml 616.72 ml Output Total 3500 ml 0 ml 0 ml Balance -2153.60 ml 963.13 ml 616.72 ml Exam Constitutional: non-verbal ENMT: intubated Respiratory: clear to auscultation Cardiovascular: regular rate and rhythm Gastrointestinal: soft, No distended Musculoskeletal: nl extremities to inspection Results Result Diagram: 08/03/16 0400 08/03/16 0400 Results 24 hrs Laboratory Tests Test 08/02/16 12:37 08/02/16 13:01 08/02/16 14:06 08/02/16 14:58 Bedside Glucose 137 141 190 198 Test 08/02/16 16:00 08/02/16 17:01 08/02/16 17:45 08/02/16 17:54 Bedside Glucose 189 157 131 Arterial Blood HCO3 23.6 Arterial Blood Base Excess -4.1 L Arterial Blood Oxygen Saturation 96.5 Osiel Test ACCEPTAB Arterial Blood Gas Puncture Site Right Radial Arterial Blood Carboxyhemoglobin 0.1 Arterial Blood Date Drawn 08/02/2016 5:55:09 PM Arterial Blood Methemoglobin 0.2 Arterial Blood pCO2 (Temp correct) 55.0 H Arterial Blood pH (Temp corrected) 7.251 *L Arterial Blood pO2 (Temp corrected) 96.7 Blood Gas A-a O2 Differential 197.9 H Blood Gas Actual Respiration Rate 19 Blood Gas Critical Value Read Back Holly RUSSELL RN Blood Gas Low PEEP Setting 5.0 Blood Gas Modality VENT - AC Blood Gas Notified Time 08/02/2016 6:06:46 PM Blood Gas Notified Whom TM Blood Gas Respiration Rate 16.0 Blood Gas Specimen Source Blood arterial Blood Gas Temperature 37.0 Blood Gas Tidal Volume 500.0 FiO2 50.0 Oxyhemoglobin Percent 96.2 Total Hemoglobin 12.6 Test 08/02/16 18:50 08/02/16 20:11 08/02/16 21:05 08/02/16 22:08 Bedside Glucose 124 96 92 97 Test 08/02/16 23:06 08/03/16 00:10 08/03/16 01:04 08/03/16 01:50 Bedside Glucose 91 102 115 128 Test 08/03/16 02:59 08/03/16 04:00 08/03/16 04:03 08/03/16 04:52 Bedside Glucose 141 117 118 Anion Gap 27 H Basophils # 0.0 Basophils % 0.2 Blood Morphology Comment Blood Urea Nitrogen 87 H Calcium Level 6.9 L Carbon Dioxide Level 24 Chloride Level 93 L Creatinine 8.99 #H Eosinophils # 0.1 Eosinophils % 0.6 Glucose Level 112 # Hematocrit 32.7 L Hemoglobin 11.0 L Lymphocytes # 2.0 Lymphocytes % 16.1 Magnesium Level 2.8 H Mean Corpuscular Hemoglobin 31.5 Mean Corpuscular Hemoglobin Concent 33.6 Mean Corpuscular Volume 93.9 Mean Platelet Volume 9.0 Monocytes # 1.4 H Monocytes % 11.3 H Neutrophils # 9.0 H Neutrophils % 71.8 Nucleated Red Blood Cells # 0.0 Nucleated Red Blood Cells % 0.0 Phosphorus Level 13.1 H Platelet Count 280 Potassium Level 4.9 Red Blood Count 3.49 L Red Cell Distribution Width 15.6 H Sodium Level 139 White Blood Count 12.5 H Test 08/03/16 05:00 08/03/16 06:07 08/03/16 07:00 08/03/16 07:02 Arterial Blood HCO3 21.9 L 24.1 Arterial Blood Base Excess -4.8 L -3.0 Arterial Blood Oxygen Saturation 96.4 96.8 Osiel Test ACCEPTAB ACCEPTAB Arterial Blood Gas Puncture Site Right HEEL Right Radial Arterial Blood Carboxyhemoglobin 0.3 0.3 Arterial Blood Date Drawn 08/03/2016 4:45:53 AM 08/03/2016 7:20:44 AM Arterial Blood Methemoglobin 0.2 0.2 Arterial Blood pCO2 (Temp correct) 47.3 H 52.3 H Arterial Blood pH (Temp corrected) 7.283 *L 7.282 *L Arterial Blood pO2 (Temp corrected) 99.4 101.5 H Blood Gas A-a O2 Differential 203.9 H 196.2 H Blood Gas Actual Respiration Rate 18 18 Blood Gas Critical Value Read Back J TRUDI RUSSELL RN Blood Gas Low PEEP Setting 5.0 5.0 Blood Gas Modality VENT - AC VENT - AC Blood Gas Notified Time 08/03/2016 5:00:06 AM 08/03/2016 7:42:36 AM Blood Gas Notified Whom UP JLD Blood Gas Respiration Rate 18.0 18.0 Blood Gas Specimen Source Blood arterial Blood arterial Blood Gas Temperature 37.0 37.0 Blood Gas Tidal Volume 600.0 600.0 FiO2 50.0 50.0 Oxyhemoglobin Percent 95.9 96.3 Total Hemoglobin 11.8 L 11.8 L Bedside Glucose 113 114 Test 08/03/16 08:10 08/03/16 08:51 08/03/16 10:54 08/03/16 11:53 Bedside Glucose 123 125 158 184 Medications Medications Current Medications Norepinephrine/ Dextrose (Levophed/D5W) 500 ml @ 1.87 mls/hr TITRATE IV Last administered on 07/28/16 21:18; Admin Dose 11.25 MLS/HR; Start 07/28/16 at 04: 00 Labetalol HCl 10 mg 10 mg Q6H PRN IV sbp > 160 Last administered on 08/02/16 00:15; Admin Dose 10 MG; Start 07/28/16 at 00:30 Propofol (Diprivan) 100 ml @ 3.609 mls/ hr Q12H PRN IV SEDATION Last administered on 08/03/16 09:54; Admin Dose 36.09 MLS/HR; Start 07/28/16 at 02:30 Acetaminophen (Tylenol Supp) 650 mg Q6H PRN [place] PAIN AND OR ELEVATED TEMP Last administered on 07/31/16 17:30; Admin Dose 650 MG; Start 07/28/16 at 08:30 Miscellaneous Information 1 ea NOTE XX ; Start 07/28/16 at 09:00 Glucose (Glutose) 15 gm Q15M PRN PO DECREASED GLUCOSE; Start 07/28/16 at 09:00 Glucose (Glutose) 22.5 gm Q15M PRN PO DECREASED GLUCOSE; Start 07/28/16 at 09: 00 Dextrose (D50w Syringe) 25 ml Q15M PRN IV DECREASED GLUCOSE; Start 07/28/16 at 09:00 Dextrose (D50w Syringe) 50 ml Q15M PRN IV DECREASED GLUCOSE; Start 07/28/16 at 09:00 Glucagon (Glucagen) 1 mg Q15M PRN IM DECREASED GLUCOSE; Start 07/28/16 at 09:00 Glucose (Glutose) 15 gm Q15M PRN BUCCAL DECREASED GLUCOSE; Start 07/28/16 at 09 :00 Diagnostic Test (Pha) (Accucheck) 1 ea Q1H XX Last administered on 08/03/16 11: 54; Admin Dose 1 EA; Start 07/28/16 at 10:00 Dextrose (D50w Syringe) 25 ml Q15M PRN IV Till BS 80 mg/dL or above x2; Start 07/28/16 at 10:00 Dextrose (D50w Syringe) 50 ml Q15M PRN IV Till BS 80 mg/dL or above x2; Start 07/28/16 at 10:00 IV Flush (NS 10 ml) 10 ml PRN PRN IV IV PROTOCOL; Start 07/29/16 at 17:00 Metoprolol Tartrate (Lopressor) 25 mg BID NGT Last administered on 08/03/16 08: 12; Admin Dose 25 MG; Start 07/31/16 at 09:00 Morphine Sulfate (morphine) 2 mg Q4 PRN IV PAIN Last administered on 08/02/16 00:07; Admin Dose 2 MG; Start 07/31/16 at 12:00 Pantoprazole 40 mg 40 mg DAILY@06 IV Last administered on 08/03/16 06:08; Admin Dose 40 MG; Start 08/02/16 at 06:00 Levetiracetam 1500 mg/Sodium Chloride 115 ml @ 420 mls/hr Q12 IVPB Last administered on 08/03/16 08:19; Admin Dose 420 MLS/HR; Start 08/01/16 at 21:00 Fentanyl/Dextrose (D5W) 100 ml @ 2.5 mls/hr TITRATE IV Last administered on 11:02; Admin Dose 10 MLS/HR; Start 08/02/16 at 01:00 Lorazepam 1 mg 1 mg Q1H PRN IV SEIZURES Last administered on 08/03/16 11:56; Admin Dose 1 MG; Start 08/02/16 at 02:00 Piperacillin Sod/ Tazobactam Sod (Zosyn 2.25gm/ 50ml (Pmx)) 50 ml @ 100 mls/hr Q8 IVPB Last administered on 08/03/16 06:08; Admin Dose 100 MLS/HR; Start 08/02 at 22:00 Acetaminophen (Tylenol Liquid) 650 mg Q4H PRN NGT PAIN AND OR ELEVATED TEMP Last administered on 08/03/16 00:12; Admin Dose 650 MG; Start 08/03/16 at 00:00 Insulin Glargine (Lantus) 20 unit DAILY@08 SC ; Start 08/03/16 at 12:00; Status BARNEY MCCABE Aug 03, 2016 12:02
[2016-08-03] MEDS: INSULIN GLARGINE [LANtus] 3 ML PEN SC SCH (12:17)
[2016-08-03] MEDS: INSULIN ASPART [NOVOLOG] 3 ML PEN SC SCH ×3 (12:18→21:00)
--- NOTE | 2016-08-03 12:48 | CONS ---
Date/Time of Note Date/Time of Note DATE: 08/03/16 TIME: 12:46 Consult Date/Type/Reason Admit Date/Time Jul 27, 2016 at 23:29 Initial Consult Date 07/28/16 Type of Consultation: neurology Reason for Consultation anoxic injury, myoclonic jerks, seizure Subjective remains heavily sedated on fentanyl and propofol intermittent LLE muscle twitching in thigh noted, per daughter she also saw twitching in face ativan was administered overnight and this morning initiated Depakote 500 mg q6h gag reflex absent however checked on sedation Objective Vital Signs Date Time Temp Pulse Resp B/P Pulse Ox O2 Delivery O2 Flow Rate FiO2 08/03/16 12:30 77 18 111/65 93 Mechanical Ventilator 08/03/16 12:00 98.5 08/03/16 10:38 40 Intake and Output 08/02/16 08/02/16 08/03/16 15:00 23:00 07:00 Intake Total 1346.40 ml 963.13 ml 616.72 ml Output Total 3500 ml 0 ml 0 ml Balance -2153.60 ml 963.13 ml 616.72 ml intubated on heavy sedation no responses, not a reliable exam Results/Medications Result Diagram: 08/03/16 0400 08/03/16 0400 Results 24 hrs Laboratory Tests Test 08/02/16 13:01 08/02/16 14:06 08/02/16 14:58 08/02/16 16:00 Bedside Glucose 141 190 198 189 Test 08/02/16 17:01 08/02/16 17:45 08/02/16 17:54 08/02/16 18:50 Bedside Glucose 157 131 124 Arterial Blood HCO3 23.6 Arterial Blood Base Excess -4.1 L Arterial Blood Oxygen Saturation 96.5 Osiel Test ACCEPTAB Arterial Blood Gas Puncture Site Right Radial Arterial Blood Carboxyhemoglobin 0.1 Arterial Blood Date Drawn 08/02/2016 5:55:09 PM Arterial Blood Methemoglobin 0.2 Arterial Blood pCO2 (Temp correct) 55.0 H Arterial Blood pH (Temp corrected) 7.251 *L Arterial Blood pO2 (Temp corrected) 96.7 Blood Gas A-a O2 Differential 197.9 H Blood Gas Actual Respiration Rate 19 Blood Gas Critical Value Read Back Holly RUSSELL RN Blood Gas Low PEEP Setting 5.0 Blood Gas Modality VENT - AC Blood Gas Notified Time 08/02/2016 6:06:46 PM Blood Gas Notified Whom TM Blood Gas Respiration Rate 16.0 Blood Gas Specimen Source Blood arterial Blood Gas Temperature 37.0 Blood Gas Tidal Volume 500.0 FiO2 50.0 Oxyhemoglobin Percent 96.2 Total Hemoglobin 12.6 Test 08/02/16 20:11 08/02/16 21:05 08/02/16 22:08 08/02/16 23:06 Bedside Glucose 96 92 97 91 Test 08/03/16 00:10 08/03/16 01:04 08/03/16 01:50 08/03/16 02:59 Bedside Glucose 102 115 128 141 Test 08/03/16 04:00 08/03/16 04:03 08/03/16 04:52 08/03/16 05:00 Anion Gap 27 H Basophils # 0.0 Basophils % 0.2 Blood Morphology Comment Blood Urea Nitrogen 87 H Calcium Level 6.9 L Carbon Dioxide Level 24 Chloride Level 93 L Creatinine 8.99 #H Eosinophils # 0.1 Eosinophils % 0.6 Glucose Level 112 # Hematocrit 32.7 L Hemoglobin 11.0 L Lymphocytes # 2.0 Lymphocytes % 16.1 Magnesium Level 2.8 H Mean Corpuscular Hemoglobin 31.5 Mean Corpuscular Hemoglobin Concent 33.6 Mean Corpuscular Volume 93.9 Mean Platelet Volume 9.0 Monocytes # 1.4 H Monocytes % 11.3 H Neutrophils # 9.0 H Neutrophils % 71.8 Nucleated Red Blood Cells # 0.0 Nucleated Red Blood Cells % 0.0 Phosphorus Level 13.1 H Platelet Count 280 Potassium Level 4.9 Red Blood Count 3.49 L Red Cell Distribution Width 15.6 H Sodium Level 139 White Blood Count 12.5 H Bedside Glucose 117 118 Arterial Blood HCO3 21.9 L Arterial Blood Base Excess -4.8 L Arterial Blood Oxygen Saturation 96.4 Osiel Test ACCEPTAB Arterial Blood Gas Puncture Site Right HEEL Arterial Blood Carboxyhemoglobin 0.3 Arterial Blood Date Drawn 08/03/2016 4:45:53 AM Arterial Blood Methemoglobin 0.2 Arterial Blood pCO2 (Temp correct) 47.3 H Arterial Blood pH (Temp corrected) 7.283 *L Arterial Blood pO2 (Temp corrected) 99.4 Blood Gas A-a O2 Differential 203.9 H Blood Gas Actual Respiration Rate 18 Blood Gas Critical Value Read Back Remington BRUSH RN Blood Gas Low PEEP Setting 5.0 Blood Gas Modality VENT - AC Blood Gas Notified Time 08/03/2016 5:00:06 AM Blood Gas Notified Whom UP Blood Gas Respiration Rate 18.0 Blood Gas Specimen Source Blood arterial Blood Gas Temperature 37.0 Blood Gas Tidal Volume 600.0 FiO2 50.0 Oxyhemoglobin Percent 95.9 Total Hemoglobin 11.8 L Test 08/03/16 06:07 08/03/16 07:00 08/03/16 07:02 08/03/16 08:10 Bedside Glucose 113 114 123 Arterial Blood HCO3 24.1 Arterial Blood Base Excess -3.0 Arterial Blood Oxygen Saturation 96.8 Osiel Test ACCEPTAB Arterial Blood Gas Puncture Site Right Radial Arterial Blood Carboxyhemoglobin 0.3 Arterial Blood Date Drawn 08/03/2016 7:20:44 AM Arterial Blood Methemoglobin 0.2 Arterial Blood pCO2 (Temp correct) 52.3 H Arterial Blood pH (Temp corrected) 7.282 *L Arterial Blood pO2 (Temp corrected) 101.5 H Blood Gas A-a O2 Differential 196.2 H Blood Gas Actual Respiration Rate 18 Blood Gas Critical Value Read Back Holly RUSSELL RN Blood Gas Low PEEP Setting 5.0 Blood Gas Modality VENT - AC Blood Gas Notified Time 08/03/2016 7:42:36 AM Blood Gas Notified Whom JLD Blood Gas Respiration Rate 18.0 Blood Gas Specimen Source Blood arterial Blood Gas Temperature 37.0 Blood Gas Tidal Volume 600.0 FiO2 50.0 Oxyhemoglobin Percent 96.3 Total Hemoglobin 11.8 L Test 08/03/16 08:51 08/03/16 10:54 08/03/16 11:53 Bedside Glucose 125 158 184 Medications Current Medications Norepinephrine/ Dextrose (Levophed/D5W) 500 ml @ 1.87 mls/hr TITRATE IV Last administered on 07/28/16 21:18; Admin Dose 11.25 MLS/HR; Start 07/28/16 at 04: 00 Labetalol HCl 10 mg 10 mg Q6H PRN IV sbp > 160 Last administered on 08/02/16 00:15; Admin Dose 10 MG; Start 07/28/16 at 00:30 Propofol (Diprivan) 100 ml @ 3.609 mls/ hr Q12H PRN IV SEDATION Last administered on 08/03/16 09:54; Admin Dose 36.09 MLS/HR; Start 07/28/16 at 02:30 Acetaminophen (Tylenol Supp) 650 mg Q6H PRN [place] PAIN AND OR ELEVATED TEMP Last administered on 07/31/16 17:30; Admin Dose 650 MG; Start 07/28/16 at 08:30 Miscellaneous Information 1 ea NOTE XX ; Start 07/28/16 at 09:00 Glucose (Glutose) 15 gm Q15M PRN PO DECREASED GLUCOSE; Start 07/28/16 at 09:00 Glucose (Glutose) 22.5 gm Q15M PRN PO DECREASED GLUCOSE; Start 07/28/16 at 09: 00 Dextrose (D50w Syringe) 25 ml Q15M PRN IV DECREASED GLUCOSE; Start 07/28/16 at 09:00 Dextrose (D50w Syringe) 50 ml Q15M PRN IV DECREASED GLUCOSE; Start 07/28/16 at 09:00 Glucagon (Glucagen) 1 mg Q15M PRN IM DECREASED GLUCOSE; Start 07/28/16 at 09:00 Glucose (Glutose) 15 gm Q15M PRN BUCCAL DECREASED GLUCOSE; Start 07/28/16 at 09 :00 IV Flush (NS 10 ml) 10 ml PRN PRN IV IV PROTOCOL; Start 07/29/16 at 17:00 Metoprolol Tartrate (Lopressor) 25 mg BID NGT Last administered on 08/03/16 08: 12; Admin Dose 25 MG; Start 07/31/16 at 09:00 Morphine Sulfate (morphine) 2 mg Q4 PRN IV PAIN Last administered on 08/02/16 00:07; Admin Dose 2 MG; Start 07/31/16 at 12:00 Pantoprazole 40 mg 40 mg DAILY@06 IV Last administered on 08/03/16 06:08; Admin Dose 40 MG; Start 08/02/16 at 06:00 Levetiracetam 1500 mg/Sodium Chloride 115 ml @ 420 mls/hr Q12 IVPB Last administered on 08/03/16 08:19; Admin Dose 420 MLS/HR; Start 08/01/16 at 21:00 Fentanyl/Dextrose (D5W) 100 ml @ 2.5 mls/hr TITRATE IV Last administered on 11:02; Admin Dose 10 MLS/HR; Start 08/02/16 at 01:00 Lorazepam 1 mg 1 mg Q1H PRN IV SEIZURES Last administered on 08/03/16 11:56; Admin Dose 1 MG; Start 08/02/16 at 02:00 Piperacillin Sod/ Tazobactam Sod (Zosyn 2.25gm/ 50ml (Pmx)) 50 ml @ 100 mls/hr Q8 IVPB Last administered on 08/03/16 06:08; Admin Dose 100 MLS/HR; Start 08/02 at 22:00 Acetaminophen (Tylenol Liquid) 650 mg Q4H PRN NGT PAIN AND OR ELEVATED TEMP Last administered on 08/03/16 00:12; Admin Dose 650 MG; Start 08/03/16 at 00:00 Insulin Glargine (Lantus) 20 unit DAILY@08 SC Last administered on 08/03/16 12: 17; Admin Dose 20 UNIT; Start 08/03/16 at 12:00 Insulin Aspart NOVOLOG *MILD* ALGORI... Q4 SC Last administered on 08/03/16 12: 18; Admin Dose 2 UNIT; Start 08/03/16 at 13:00 Valproate Sodium/ Sodium Chloride (Depacon/NS) 55 ml @ 55 mls/hr Q6 IVPB ; Start 08/03/16 at 13:30 Assessment/Plan Chief Complaint/Hosp Course 56 year old M with hx of ESRD, HTN, DM, Asthma began experiencing SOB suffered PEA arrest with ROSC for 20 mins, STEMI s/p cardiac catheterization with no intervention with possible seizure activity vs. post anoxic myoclonus. EEG showed burst suppression pattern suggesting severe encephalopathy with seizure activity. CT brain showed nothing acute. Examination showed positive corneals, pupillary reflexes and gag reflex, today poor responses as he remains heavily sedated. -continue on Keppra 1500 mg q12h -initiated Depakote 500 mg q6h for myoclonus -low dose prn ativan if twitching persists over 5 mins. -MRI Brain without contrast to evaluate for ischemic injury -taper off sedation -burst suppression generally associated with a poor prognosis for neurologic recovery -will continue to follow, discussed recommendations w daughter at bedside family leaning towards trach/PEG upon goals of care discussion Problems: TORI CHERY MD Aug 03, 2016 12:48
[2016-08-03] MEDS: VALPROATE INJ 500 MG in SOD CHLORIDE 0.9% 50 ML IVPB SCH ×3 (13:32→23:15)
--- NOTE | 2016-08-03 16:02 | CONS ---
Date/Time of Note Date/Time of Note DATE: 08/03/16 TIME: 16:01 Assessment/Plan Assessment/Plan Chief Complaint/Hosp Course Assessment: Status post cardiac arrest - suspect secondary to hypoxia Probable anoxic brain injury with seizure activity End-stage renal disease - on hemodialysis Recommendations: -coronary angiography without significant coronary artery disease -echocardiogram showed LVEF 60% -follow up neurology recommendations Problems: Consultation Date/Type/Reason Admit Date/Time Jul 27, 2016 at 23:29 Initial Consult Date 07/28/16 Type of Consultation: Cardiology 24 HR Interval Summary Free Text/Dictation No significant clinical changes. Detailed Summary Additional Comments Unable to obtain review of systems due to patient's mental status. Exam/Review of Systems Vital Signs Vitals Vital Signs Date Time Temp Pulse Resp B/P Pulse Ox O2 Delivery O2 Flow Rate FiO2 08/03/16 13:11 77 18 94 40 08/03/16 12:30 111/65 Mechanical Ventilator 08/03/16 12:00 98.5 Intake and Output 08/02/16 08/02/16 08/03/16 15:00 23:00 07:00 Intake Total 1346.40 ml 963.13 ml 616.72 ml Output Total 3500 ml 0 ml 0 ml Balance -2153.60 ml 963.13 ml 616.72 ml Exam Constitutional: No alert Head: atraumatic, normocephalic ENMT: intubated Neck: No jvd (unable to assess) Respiratory: crackles/rales, diminished breath sounds Cardiovascular: edema (1+), regular rate and rhythm, No systolic murmur Gastrointestinal: non-tender, soft, No distended Extremities: No normal pulses (diminished ) Neurological: No nl mental status, No nl speech Results Result Diagram: 08/03/160 08/03/160 Results 24 hrs Laboratory Tests Test 08/02/16 17:01 08/02/16 17:45 08/02/16 17:54 08/02/16 18:50 Bedside Glucose 157 131 124 Arterial Blood HCO3 23.6 Arterial Blood Base Excess -4.1 L Arterial Blood Oxygen Saturation 96.5 Osiel Test ACCEPTAB Arterial Blood Gas Puncture Site Right Radial Arterial Blood Carboxyhemoglobin 0.1 Arterial Blood Date Drawn 08/02/2016 5:55:09 PM Arterial Blood Methemoglobin 0.2 Arterial Blood pCO2 (Temp correct) 55.0 H Arterial Blood pH (Temp corrected) 7.251 *L Arterial Blood pO2 (Temp corrected) 96.7 Blood Gas A-a O2 Differential 197.9 H Blood Gas Actual Respiration Rate 19 Blood Gas Critical Value Read Back Holly RUSSELL RN Blood Gas Low PEEP Setting 5.0 Blood Gas Modality VENT - AC Blood Gas Notified Time 08/02/2016 6:06:46 PM Blood Gas Notified Whom TM Blood Gas Respiration Rate 16.0 Blood Gas Specimen Source Blood arterial Blood Gas Temperature 37.0 Blood Gas Tidal Volume 500.0 FiO2 50.0 Oxyhemoglobin Percent 96.2 Total Hemoglobin 12.6 Test 08/02/16 20:11 08/02/16 21:05 08/02/16 22:08 08/02/16 23:06 Bedside Glucose 96 92 97 91 Test 08/03/16 00:10 08/03/16 01:04 08/03/16 01:50 08/03/16 02:59 Bedside Glucose 102 115 128 141 Test 08/03/16 04:00 08/03/16 04:03 08/03/16 04:52 08/03/16 05:00 Anion Gap 27 H Basophils # 0.0 Basophils % 0.2 Blood Morphology Comment Blood Urea Nitrogen 87 H Calcium Level 6.9 L Carbon Dioxide Level 24 Chloride Level 93 L Creatinine 8.99 #H Eosinophils # 0.1 Eosinophils % 0.6 Glucose Level 112 # Hematocrit 32.7 L Hemoglobin 11.0 L Lymphocytes # 2.0 Lymphocytes % 16.1 Magnesium Level 2.8 H Mean Corpuscular Hemoglobin 31.5 Mean Corpuscular Hemoglobin Concent 33.6 Mean Corpuscular Volume 93.9 Mean Platelet Volume 9.0 Monocytes # 1.4 H Monocytes % 11.3 H Neutrophils # 9.0 H Neutrophils % 71.8 Nucleated Red Blood Cells # 0.0 Nucleated Red Blood Cells % 0.0 Phosphorus Level 13.1 H Platelet Count 280 Potassium Level 4.9 Red Blood Count 3.49 L Red Cell Distribution Width 15.6 H Sodium Level 139 White Blood Count 12.5 H Bedside Glucose 117 118 Arterial Blood HCO3 21.9 L Arterial Blood Base Excess -4.8 L Arterial Blood Oxygen Saturation 96.4 Osiel Test ACCEPTAB Arterial Blood Gas Puncture Site Right HEEL Arterial Blood Carboxyhemoglobin 0.3 Arterial Blood Date Drawn 08/03/2016 4:45:53 AM Arterial Blood Methemoglobin 0.2 Arterial Blood pCO2 (Temp correct) 47.3 H Arterial Blood pH (Temp corrected) 7.283 *L Arterial Blood pO2 (Temp corrected) 99.4 Blood Gas A-a O2 Differential 203.9 H Blood Gas Actual Respiration Rate 18 Blood Gas Critical Value Read Back Remington BRUSH RN Blood Gas Low PEEP Setting 5.0 Blood Gas Modality VENT - AC Blood Gas Notified Time 08/03/2016 5:00:06 AM Blood Gas Notified Whom UP Blood Gas Respiration Rate 18.0 Blood Gas Specimen Source Blood arterial Blood Gas Temperature 37.0 Blood Gas Tidal Volume 600.0 FiO2 50.0 Oxyhemoglobin Percent 95.9 Total Hemoglobin 11.8 L Test 08/03/16 06:07 08/03/16 07:00 08/03/16 07:02 08/03/16 08:10 Bedside Glucose 113 114 123 Arterial Blood HCO3 24.1 Arterial Blood Base Excess -3.0 Arterial Blood Oxygen Saturation 96.8 Osiel Test ACCEPTAB Arterial Blood Gas Puncture Site Right Radial Arterial Blood Carboxyhemoglobin 0.3 Arterial Blood Date Drawn 08/03/2016 7:20:44 AM Arterial Blood Methemoglobin 0.2 Arterial Blood pCO2 (Temp correct) 52.3 H Arterial Blood pH (Temp corrected) 7.282 *L Arterial Blood pO2 (Temp corrected) 101.5 H Blood Gas A-a O2 Differential 196.2 H Blood Gas Actual Respiration Rate 18 Blood Gas Critical Value Read Back Holly RUSSELL RN Blood Gas Low PEEP Setting 5.0 Blood Gas Modality VENT - AC Blood Gas Notified Time 08/03/2016 7:42:36 AM Blood Gas Notified Whom JLD Blood Gas Respiration Rate 18.0 Blood Gas Specimen Source Blood arterial Blood Gas Temperature 37.0 Blood Gas Tidal Volume 600.0 FiO2 50.0 Oxyhemoglobin Percent 96.3 Total Hemoglobin 11.8 L Test 08/03/16 08:51 08/03/16 10:54 08/03/16 11:53 Bedside Glucose 125 158 184 Medications Medications Current Medications Norepinephrine/ Dextrose (Levophed/D5W) 500 ml @ 1.87 mls/hr TITRATE IV Last administered on 07/28/16t 21:18; Admin Dose 11.25 MLS/HR; Start 07/28/16 at 04: 00 Labetalol HCl 10 mg 10 mg Q6H PRN IV sbp > 160 Last administered on 08/02/16 00:15; Admin Dose 10 MG; Start 07/28/16 at 00:30 Propofol (Diprivan) 100 ml @ 3.609 mls/ hr Q12H PRN IV SEDATION Last administered on 08/03/16 15:18; Admin Dose 36.09 MLS/HR; Start 07/28/16 at 02:30 Acetaminophen (Tylenol Supp) 650 mg Q6H PRN [place] PAIN AND OR ELEVATED TEMP Last administered on 07/31/16 17:30; Admin Dose 650 MG; Start 07/28/16 at 08:30 Miscellaneous Information 1 ea NOTE XX ; Start 07/28/16 at 09:00 Glucose (Glutose) 15 gm Q15M PRN PO DECREASED GLUCOSE; Start 07/28/16 at 09:00 Glucose (Glutose) 22.5 gm Q15M PRN PO DECREASED GLUCOSE; Start 07/28/16 at 09: 00 Dextrose (D50w Syringe) 25 ml Q15M PRN IV DECREASED GLUCOSE; Start 07/28/16 at 09:00 Dextrose (D50w Syringe) 50 ml Q15M PRN IV DECREASED GLUCOSE; Start 07/28/16 at 09:00 Glucagon (Glucagen) 1 mg Q15M PRN IM DECREASED GLUCOSE; Start 07/28/16 at 09:00 Glucose (Glutose) 15 gm Q15M PRN BUCCAL DECREASED GLUCOSE; Start 07/28/16 at 09 :00 IV Flush (NS 10 ml) 10 ml PRN PRN IV IV PROTOCOL; Start 07/29/16 at 17:00 Metoprolol Tartrate (Lopressor) 25 mg BID NGT Last administered on 08/03/16 08: 12; Admin Dose 25 MG; Start 07/31/16 at 09:00 Morphine Sulfate (morphine) 2 mg Q4 PRN IV PAIN Last administered on 08/02/16 00:07; Admin Dose 2 MG; Start 07/31/16 at 12:00 Pantoprazole 40 mg 40 mg DAILY@06 IV Last administered on 08/03/16 06:08; Admin Dose 40 MG; Start 08/02/16 at 06:00 Levetiracetam 1500 mg/Sodium Chloride 115 ml @ 420 mls/hr Q12 IVPB Last administered on 08/03/16 08:19; Admin Dose 420 MLS/HR; Start 08/01/16 at 21:00 Fentanyl/Dextrose (D5W) 100 ml @ 2.5 mls/hr TITRATE IV Last administered on 11:02; Admin Dose 10 MLS/HR; Start 08/02/16 at 01:00 Lorazepam 1 mg 1 mg Q1H PRN IV SEIZURES Last administered on 08/03/16 15:49; Admin Dose 1 MG; Start 08/02/16 at 02:00 Piperacillin Sod/ Tazobactam Sod (Zosyn 2.25gm/ 50ml (Pmx)) 50 ml @ 100 mls/hr Q8 IVPB Last administered on 08/03/16 14:28; Admin Dose 100 MLS/HR; Start 08/02 at 22:00 Acetaminophen (Tylenol Liquid) 650 mg Q4H PRN NGT PAIN AND OR ELEVATED TEMP Last administered on 08/03/16 00:12; Admin Dose 650 MG; Start 08/03/16 at 00:00 Insulin Glargine (Lantus) 20 unit DAILY@08 SC Last administered on 08/03/16 12: 17; Admin Dose 20 UNIT; Start 08/03/16 at 12:00 Insulin Aspart NOVOLOG *MILD* ALGORI... Q4 SC Last administered on 08/03/16 12: 18; Admin Dose 2 UNIT; Start 08/03/16 at 13:00 Valproate Sodium/ Sodium Chloride (Depacon/NS) 55 ml @ 55 mls/hr Q6 IVPB Last administered on 08/03/16 13:32; Admin Dose 55 MLS/HR; Start 08/03/16 at 13:30 TAYLOR WHITNEY MD Aug 03, 2016 16:02
[2016-08-03] MEDS: IPRATROPIUM (HFA) 12.9 GM INHALER INH PRN ×2 (17:40→17:43)
[2016-08-03] MEDS: ALBUTEROL HFA 8 GM INHALER INH PRN (17:44)
[2016-08-03] MEDS: MIDAZOLAM 50 MG in DEXTROSE 5% 40 ML IV SCH ×2 (18:33→21:47)
[2016-08-04] VITALS (57 sets, daily range): BP systolic 95–166; BP diastolic 45–132; PULSE 81–108; RESP 17–25
[2016-08-04] MEDS: ACETAMINOPHEN 650MG/20.3ML CUP NGT PRN ×2 (00:23→21:40)
[2016-08-04] MEDS: LORAZEPAM 2 MG INJ IV PRN ×8 (00:23→18:42)
[2016-08-04] MEDS: INSULIN ASPART [NOVOLOG] 3 ML PEN SC SCH ×6 (00:23→21:00)
[2016-08-04] MEDS: IPRATROPIUM (HFA) 12.9 GM INHALER INH SCH ×6 (01:25→20:32)
[2016-08-04] MEDS: ALBUTEROL HFA 8 GM INHALER INH SCH ×6 (01:25→20:33)
[2016-08-04] MEDS: MIDAZOLAM 50 MG in DEXTROSE 5% 40 ML IV SCH ×5 (02:16→23:56)
[2016-08-04] MEDS: PANTOPRAZOLE 40 MG INJ IV SCH (06:00)
[2016-08-04] MEDS: PIPER-TAZO 2.25 GM (PMX) 50 ML IVPB SCH ×3 (06:00→22:01)
[2016-08-04] MEDS: VALPROATE INJ 500 MG in SOD CHLORIDE 0.9% 50 ML IVPB SCH (06:01)
[2016-08-04 06:38] LABS: BASOPHIL # 0.1 10^3/ul (0.0-0.1); BASOPHILS % 0.3 % (0.0-2.0); EOSINOPHILS # 0.3 10^3/ul (0.0-0.5); EOSINOPHILS % 1.8 % (0.0-7.0); HEMATOCRIT 32.7 % (42.0-52.0); HEMOGLOBIN 11.1 g/dl (14.0-18.0); LYMPHOCYTES # 1.6 10^3/ul (0.8-2.9); MEAN CORPUSCULAR HEMOGLOBIN 31.6 pg (29.0-33.0); MEAN CORPUSCULAR HGB CONC 33.9 g/dl (32.0-37.0); MEAN CORPUSCULAR VOLUME 93.3 fl (82.0-101.0); MEAN PLATELET VOLUME 8.8 fl (7.4-10.4); MONOCYTE # 1.3 10^3/ul (0.3-0.9); MONOCYTES % 8.5 % (0.0-11.0); NEUTROPHIL # 12.5 10^3/ul (1.6-7.5); NEUTROPHILS % 79.4 % (39.0-77.0); PLATELET COUNT 277 10^3/UL (140-440); RED BLOOD COUNT 3.51 10^6/ul (4.70-6.10); RED CELL DISTRIBUTION WIDTH 15.4 % (11.5-14.5); UNCORRECTED WBC 15.7 10^3/ul (4.8-10.8); WHITE BLOOD COUNT 15.7 10^3/ul (4.8-10.8)
[2016-08-04 06:42] LABS: ALBUMIN 3.8 g/dl (3.3-4.9)
[2016-08-04 06:46] LABS: ALBUMIN/GLOBULIN RATIO 0.95; CALCIUM 6.8 mg/dl (8.4-10.2); TOTAL PROTEIN 7.8 g/dl (6.1-8.1)
[2016-08-04 06:53] LABS: POTASSIUM 6.2 mmol/L (3.5-5.1)
[2016-08-04 07:04] LABS: CREATININE 11.25 mg/dl (0.61-1.24)
[2016-08-04 07:12] LABS: CONDITION 1; LH ANALYZER COMMENTS 1
[2016-08-04] MEDS ORDERED: HEPARIN 1000 UNITS/ML 10 ML INJ ONE (08:11)
--- NOTE | 2016-08-04 08:20 | RADRPT ---
PROCEDURE: XR Chest. CLINICAL INDICATION: Shortness of breath TECHNIQUE: A single portable view of the chest was obtained. COMPARISON: 08/03/2016 FINDINGS: The endotracheal tube, nasogastric tube, right PICC line are essentially unchanged. The cardiomedia stinal silhouette is mildly enlarged and is stable. Mild prominence of the pulmonary vasculature is seen which is slightly increased. The lung volumes are low with bibasilar compressive atelectasis wh ich is again noted. The soft tissues and osseous structures are unremarkable. IMPRESSION: Mild prominence of the pulmonary vasculature which is slightly increased compared to the prior exami nation. RPTAT: HPNM Physician Rossy Date Time Electronically viewed and signed by Physician Rossy on 08/04/2016 08:20 /
--- NOTE | 2016-08-04 08:55 | OPR ---
Date/Time of Note Date/Time of Note DATE: 08/04/16 TIME: 08:53 Operative Report Free Text/Dictation DATE OF OPERATION: 08/04/2016 SURGEON: Abilio Banks MD PREOPERATIVE DIAGNOSIS: ESRD POSTOPERATIVE DIAGNOSIS: same ANESTHESIA: Local BLOOD LOSS: minimal COMPLICATIONS: None. ACCESS: Right common femoral vein INDICATIONS: This is a 65 year-old male with ESRD requiring emergent dialysis. Patient and family have been informed of the alternatives, risks, and benefits. Risks including but not limited to bleeding, thrombosis, embolization , myocardial infarction, , device malfunction, infection, pneumothorax, nephrotoxicity and patient has agreed to proceed. PROCEDURE: 1. Ultrasound guided access of right common femoral vein 2. Emergent Right common femoral vein non-tunneled hemodialysis catheter placement DESCRIPTION: The patient was in supine position in her ICU bed. Bed was placed in slight Trendelenburg position and the groin was prepped and draped with sterile technique. The central catheter was flushed with heparin to ensure function of each port. Landmarks were identified and the skin entry site was chosen using ultrasound guidance. The skin And subcutaneous tissue were anesthetized with 1% lidocaine. The vein was then located with a needle with a 10 mL syringe using ultrasound guidance. The needle was then directed towards the vein and was entered. The needle position was secured and syringe was removed. The hub was occluded to prevent venous air embolus. The guidewire was passed easily and the needle was removed while the wire was held in place. A small incision was then made at the point of the wire entry. The dilator was placed over the wire and the tract gently dilated. The catheter was fed over the wire, ensuring the wire exited from the port before advancing the catheter. The catheter was inserted to the desired depth and the wire removed. Each port was aspirated to ensure adequate blood flow and then flushed with heparinized saline solution. The catheter was secured in place with a 2-0 nylon suture and a sterile dressing was applied. The patient tolerated the procedure well and was in stable condition. All instrument, sponge and needle counts were correct 2. ABILIO BANKS MD Aug 04, 2016 08:55
--- NOTE | 2016-08-04 09:26 | CONS ---
Date/Time of Note Date/Time of Note DATE: 08/04/16 TIME: 09:18 Assessment/Plan Assessment/Plan Chief Complaint/Hosp Course #1 end-stage renal disease , this patient has ESRD due to diabetic nephropathy and has been on maintenance hemodialysis for about 1 year. He has dialysis ordered for today and tomorrow . He has a new R femoral vascath that was placed today because of poorly functioning L upper arm AV fistula . #2 the patient is status post a cardiac arrest at home #3 altered level of consciousness, probable anoxic encephalopathy. neuro work up is in progress #4 insulin-dependent diabetes mellitus #5 seizures #6 ventilator dependent respiratory failure , h/o COPD and pneumonia on CXR . Problems: Consultation Date/Type/Reason Admit Date/Time Jul 27, 2016 at 23:29 Initial Consult Date 07/28/16 Type of Consultation: Cardiology 24 HR Interval Summary Free Text/Dictation Patient is in the ICU , intubated on ventilator , unresponsive , sedated . the dialysis nurse had difficulty with his L upper arm fistula and was unable to dialyze him . He had a R femoral Vascath placed this morning . Exam/Review of Systems Vital Signs Vitals Vital Signs Date Time Temp Pulse Resp B/P Pulse Ox O2 Delivery O2 Flow Rate FiO2 08/04/16 06:00 88 20 128/69 94 08/04/16 05:27 40 08/04/16 04:00 98.9 08/03/16 19:30 Mechanical Ventilator Intake and Output 08/03/16 08/03/16 08/04/16 15:00 23:00 07:00 Intake Total 974.22 ml 744.09 ml 210 ml Output Total 0 ml 405 ml 0 ml Balance 974.22 ml 339.09 ml 210 ml Exam L upper arm AV fistula with a bruit . Constitutional: non-verbal Respiratory: clear to auscultation Cardiovascular: regular rate and rhythm Gastrointestinal: distended Musculoskeletal: nl extremities to inspection Results Result Diagram: 08/04/16 0500 08/04/16 0500 Results 24 hrs Laboratory Tests Test 08/03/16 10:54 08/03/16 11:53 08/03/16 17:06 08/03/16 21:28 Bedside Glucose 158 184 128 102 Test 08/04/16 00:22 08/04/16 05:00 08/04/16 05:56 Bedside Glucose 112 125 Alanine Aminotransferase (ALT/SGPT) 93 H Albumin 3.8 Albumin/Globulin Ratio 0.95 Alkaline Phosphatase 121 Anion Gap 37 #H Aspartate Amino Transf (AST/SGOT) 64 H Basophils # 0.1 Basophils % 0.3 Blood Morphology Comment Blood Urea Nitrogen 119 #H Calcium Level 6.8 L Carbon Dioxide Level 15 L Chloride Level 90 L Creatinine 11.25 #H Direct Bilirubin 0.00 Eosinophils # 0.3 Eosinophils % 1.8 Globulin 4.00 H Glucose Level 136 Hematocrit 32.7 L Hemoglobin 11.1 L Indirect Bilirubin 0.0 Lymphocytes # 1.6 Lymphocytes % 10.0 L Mean Corpuscular Hemoglobin 31.6 Mean Corpuscular Hemoglobin Concent 33.9 Mean Corpuscular Volume 93.3 Mean Platelet Volume 8.8 Monocytes # 1.3 H Monocytes % 8.5 Neutrophils # 12.5 H Neutrophils % 79.4 H Nucleated Red Blood Cells # 0.0 Nucleated Red Blood Cells % 0.0 Platelet Count 277 Potassium Level 6.2 *H Red Blood Count 3.51 L Red Cell Distribution Width 15.4 H Sodium Level 136 Total Bilirubin 0.0 L Total Protein 7.8 White Blood Count 15.7 #H Medications Medications Current Medications Norepinephrine/ Dextrose (Levophed/D5W) 500 ml @ 1.87 mls/hr TITRATE IV Last administered on 07/28/16 21:18; Admin Dose 11.25 MLS/HR; Start 07/28/16 at 04: 00 Labetalol HCl (Labetalol) 10 mg Q6H PRN IV sbp > 160 Last administered on 00:15; Admin Dose 10 MG; Start 07/28/16 at 00:30 Acetaminophen (Tylenol Supp) 650 mg Q6H PRN [place] PAIN AND OR ELEVATED TEMP Last administered on 07/31/16 17:30; Admin Dose 650 MG; Start 07/28/16 at 08:30 Miscellaneous Information 1 ea NOTE XX ; Start 07/28/16 at 09:00 Glucose (Glutose) 15 gm Q15M PRN PO DECREASED GLUCOSE; Start 07/28/16 at 09:00 Glucose (Glutose) 22.5 gm Q15M PRN PO DECREASED GLUCOSE; Start 07/28/16 at 09: 00 Dextrose (D50w Syringe) 25 ml Q15M PRN IV DECREASED GLUCOSE; Start 07/28/16 at 09:00 Dextrose (D50w Syringe) 50 ml Q15M PRN IV DECREASED GLUCOSE; Start 07/28/16 at 09:00 Glucagon (Glucagen) 1 mg Q15M PRN IM DECREASED GLUCOSE; Start 07/28/16 at 09:00 Glucose (Glutose) 15 gm Q15M PRN BUCCAL DECREASED GLUCOSE; Start 07/28/16 at 09 :00 IV Flush (NS 10 ml) 10 ml PRN PRN IV IV PROTOCOL; Start 07/29/16 at 17:00 Metoprolol Tartrate (Lopressor) 25 mg BID NGT Last administered on 08/03/16 21: 30; Admin Dose 25 MG; Start 07/31/16 at 09:00 Morphine Sulfate (morphine) 2 mg Q4 PRN IV PAIN Last administered on 08/02/16 00:07; Admin Dose 2 MG; Start 07/31/16 at 12:00 Pantoprazole 40 mg 40 mg DAILY@06 IV Last administered on 08/04/16 06:00; Admin Dose 40 MG; Start 08/02/16 at 06:00 Levetiracetam 1500 mg/Sodium Chloride 115 ml @ 420 mls/hr Q12 IVPB Last administered on 08/03/16 20:01; Admin Dose 420 MLS/HR; Start 08/01/16 at 21:00 Fentanyl/Dextrose (D5W) 100 ml @ 2.5 mls/hr TITRATE IV Last administered on 21:35; Admin Dose 10 MLS/HR; Start 08/02/16 at 01:00 Lorazepam 1 mg 1 mg Q1H PRN IV SEIZURES Last administered on 08/04/16 06:52; Admin Dose 1 MG; Start 08/02/16 at 02:00 Piperacillin Sod/ Tazobactam Sod (Zosyn 2.25gm/ 50ml (Pmx)) 50 ml @ 100 mls/hr Q8 IVPB Last administered on 08/04/16 06:00; Admin Dose 100 MLS/HR; Start 08/02 at 22:00 Acetaminophen (Tylenol Liquid) 650 mg Q4H PRN N[place] PAIN AND OR ELEVATED TEMP Last administered on 08/04/16 00:23; Admin Dose 650 MG; Start 08/03/16 at 00:00 Insulin Glargine (Lantus) 20 unit DAILY@08 SC Last administered on 08/03/16 12: 17; Admin Dose 20 UNIT; Start 08/03/16 at 12:00 Insulin Aspart NOVOLOG *MILD* ALGORI... Q4 SC Last administered on 08/03/16 12: 18; Admin Dose 2 UNIT; Start 08/03/16 at 13:00 Valproate Sodium 500 mg/Sodium Chloride 55 ml @ 55 mls/hr Q6 IVPB Last administered on 08/04/16 06:01; Admin Dose 55 MLS/HR; Start 08/03/16 at 13:30 Midazolam HCl/ Dextrose (Versed/D5W) 50 ml @ 0 mls/hr TITRATE IV Last administered on 08/04/16 02:16; Admin Dose 10 MLS/HR; Start 08/03/16 at 19:00 ROSCOE LANGE MD Aug 04, 2016 09:26
--- NOTE | 2016-08-04 09:29 | CONS ---
Date/Time of Note Date/Time of Note DATE: 08/04/16 TIME: 09:19 Consult Date/Type/Reason Admit Date/Time Jul 27, 2016 at 23:29 Initial Consult Date 07/28/16 Type of Consultation: pulmonary Subjective Patient continues mechanical ventilation improved compliance Remains unresponsive Transition from propofol to Versed with no evidence of new seizures Objective Vital Signs Date Time Temp Pulse Resp B/P Pulse Ox O2 Delivery O2 Flow Rate FiO2 08/04/16 06:00 88 20 128/69 94 08/04/16 05:27 40 08/04/16 04:00 98.9 08/03/16 19:30 Mechanical Ventilator Intake and Output 08/03/16 08/03/16 08/04/16 15:00 23:00 07:00 Intake Total 974.22 ml 744.09 ml 210 ml Output Total 0 ml 405 ml 0 ml Balance 974.22 ml 339.09 ml 210 ml PHYSICAL EXAMINATION GENERAL: Elderly gentleman, intubated on mechanical ventilation, orally intubated VITAL SIGNS: see below. HEENT: Pupils equal, round, and reactive to light. CARDIAC: S1, S2, tachycardia. CHEST: Diminished air entry bilaterally. ABDOMEN: Mildly distended. No bowel sounds. EXTREMITIES: No cyanosis, clubbing or edema. NEUROLOGIC unresponsive this morning Results/Medications Result Diagram: 08/04/16 0500 08/04/16 0500 Results 24 hrs Laboratory Tests Test 08/03/16 10:54 08/03/16 11:53 08/03/16 17:06 08/03/16 21:28 Bedside Glucose 158 184 128 102 Test 08/04/16 00:22 08/04/16 05:00 08/04/16 05:56 Bedside Glucose 112 125 Alanine Aminotransferase (ALT/SGPT) 93 H Albumin 3.8 Albumin/Globulin Ratio 0.95 Alkaline Phosphatase 121 Anion Gap 37 #H Aspartate Amino Transf (AST/SGOT) 64 H Basophils # 0.1 Basophils % 0.3 Blood Morphology Comment Blood Urea Nitrogen 119 #H Calcium Level 6.8 L Carbon Dioxide Level 15 L Chloride Level 90 L Creatinine 11.25 #H Direct Bilirubin 0.00 Eosinophils # 0.3 Eosinophils % 1.8 Globulin 4.00 H Glucose Level 136 Hematocrit 32.7 L Hemoglobin 11.1 L Indirect Bilirubin 0.0 Lymphocytes # 1.6 Lymphocytes % 10.0 L Mean Corpuscular Hemoglobin 31.6 Mean Corpuscular Hemoglobin Concent 33.9 Mean Corpuscular Volume 93.3 Mean Platelet Volume 8.8 Monocytes # 1.3 H Monocytes % 8.5 Neutrophils # 12.5 H Neutrophils % 79.4 H Nucleated Red Blood Cells # 0.0 Nucleated Red Blood Cells % 0.0 Platelet Count 277 Potassium Level 6.2 *H Red Blood Count 3.51 L Red Cell Distribution Width 15.4 H Sodium Level 136 Total Bilirubin 0.0 L Total Protein 7.8 White Blood Count 15.7 #H Medications Current Medications Norepinephrine/ Dextrose (Levophed/D5W) 500 ml @ 1.87 mls/hr TITRATE IV Last administered on 07/28/16 21:18; Admin Dose 11.25 MLS/HR; Start 07/28/16 at 04: 00 Labetalol HCl (Labetalol) 10 mg Q6H PRN IV sbp > 160 Last administered on 00:15; Admin Dose 10 MG; Start 07/28/16 at 00:30 Acetaminophen (Tylenol Supp) 650 mg Q6H PRN [place] PAIN AND OR ELEVATED TEMP Last administered on 07/31/16 17:30; Admin Dose 650 MG; Start 07/28/16 at 08:30 Miscellaneous Information 1 ea NOTE XX ; Start 07/28/16 at 09:00 Glucose (Glutose) 15 gm Q15M PRN PO DECREASED GLUCOSE; Start 07/28/16 at 09:00 Glucose (Glutose) 22.5 gm Q15M PRN PO DECREASED GLUCOSE; Start 07/28/16 at 09: 00 Dextrose (D50w Syringe) 25 ml Q15M PRN IV DECREASED GLUCOSE; Start 07/28/16 at 09:00 Dextrose (D50w Syringe) 50 ml Q15M PRN IV DECREASED GLUCOSE; Start 07/28/16 at 09:00 Glucagon (Glucagen) 1 mg Q15M PRN IM DECREASED GLUCOSE; Start 07/28/16 at 09:00 Glucose (Glutose) 15 gm Q15M PRN BUCCAL DECREASED GLUCOSE; Start 07/28/16 at 09 :00 IV Flush (NS 10 ml) 10 ml PRN PRN IV IV PROTOCOL; Start 07/29/16 at 17:00 Metoprolol Tartrate (Lopressor) 25 mg BID NGT Last administered on 08/03/16 21: 30; Admin Dose 25 MG; Start 07/31/16 at 09:00 Morphine Sulfate (morphine) 2 mg Q4 PRN IV PAIN Last administered on 08/02/16 00:07; Admin Dose 2 MG; Start 07/31/16 at 12:00 Pantoprazole 40 mg 40 mg DAILY@06 IV Last administered on 08/04/16 06:00; Admin Dose 40 MG; Start 08/02/16 at 06:00 Levetiracetam 1500 mg/Sodium Chloride 115 ml @ 420 mls/hr Q12 IVPB Last administered on 08/03/16 20:01; Admin Dose 420 MLS/HR; Start 08/01/16 at 21:00 Fentanyl/Dextrose (D5W) 100 ml @ 2.5 mls/hr TITRATE IV Last administered on 21:35; Admin Dose 10 MLS/HR; Start 08/02/16 at 01:00 Lorazepam 1 mg 1 mg Q1H PRN IV SEIZURES Last administered on 08/04/16 06:52; Admin Dose 1 MG; Start 08/02/16 at 02:00 Piperacillin Sod/ Tazobactam Sod (Zosyn 2.25gm/ 50ml (Pmx)) 50 ml @ 100 mls/hr Q8 IVPB Last administered on 08/04/16 06:00; Admin Dose 100 MLS/HR; Start 08/02 at 22:00 Acetaminophen (Tylenol Liquid) 650 mg Q4H PRN [place] PAIN AND OR ELEVATED TEMP Last administered on 08/04/16 00:23; Admin Dose 650 MG; Start 08/03/16 at 00:00 Insulin Glargine (Lantus) 20 unit DAILY@08 SC Last administered on 08/03/16 12: 17; Admin Dose 20 UNIT; Start 08/03/16 at 12:00 Insulin Aspart NOVOLOG *MILD* ALGORI... Q4 SC Last administered on 08/03/16 12: 18; Admin Dose 2 UNIT; Start 08/03/16 at 13:00 Valproate Sodium 500 mg/Sodium Chloride 55 ml @ 55 mls/hr Q6 IVPB Last administered on 08/04/16 06:01; Admin Dose 55 MLS/HR; Start 08/03/16 at 13:30 Midazolam HCl/ Dextrose (Versed/D5W) 50 ml @ 0 mls/hr TITRATE IV Last administered on 08/04/16t 02:16; Admin Dose 10 MLS/HR; Start 08/03/16 at 19:00 Assessment/Plan Chief Complaint/Hosp Course IMPRESSION: 1. s/p Cardiopulmonary arrest. 2. 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 3. End-stage renal failure. Hyperkalemia with metabolic acidosis 4. No evidence of occlusive lesions on cardiac catheterization. 5. HTN heart Disease 6. Asthma RECS 1. Vent support, increase minute ventilation to offset metabolic acidosis 2. Daily assessment of mental status 3. EEG. MRI today if patient remains stable 4. Continue antiepileptics. 5. Neurology recommendations. 6. Continue hemodialysis with correction of electrolytes. 7. Discussed prognosis with family in view of high likelihood of significant anoxic encephalopathy. Continue current supportive care Problems: JAVED PIERCE MD, [facility] Aug 04, 2016 09:29
[2016-08-04] MEDS: LEVETIRACETAM IV 1,500 MG in SOD CHLORIDE 0.9% 100 ML IVPB SCH ×2 (09:45→21:28)
[2016-08-04] MEDS: INSULIN GLARGINE [LANtus] 3 ML PEN SC SCH (09:45)
--- NOTE | 2016-08-04 10:01 | CONS ---
DATE OF ADMISSION: 07/27/2016 DATE OF CONSULTATION: 08/04/2016 VASCULAR SURGERY CONSULTATION Dear Doctors: Mr. Espinal is a 56-year-old gentleman who presented with a myriad of medical conditions and card iac arrest. At that moment, the patient was taken to cardiac catheterization lab for investigation of a possible STEMI and as he has required CPR. During that time it was identified the patient has a lot of irregularities with coronary artery disease; however, it seemed it may have been respirator y failure. At the moment, the patient has end-stage renal disease requiring hemodialysis via left u pper extremity AV fistula that seems to have malfunctioned yesterday during his dialysis session. T here were some issues with his pressures and return of blood via the needle cannulations. The patie nt currently has hyperkalemia and is concerning and requiring dialysis. Vascular surgery was consul beth for evaluation. At the moment, the patient is intubated and sedated. Unable to answer any furt her questions. Family at the bedside had informed us of some information regarding left upper extre mity fistulas that had been created in the past. He originally had started with a Shazia at the [facility] which seemed it had not matured and later he had an upper arm fistula creation. Further, the pat araceli has had a history of a chest wall catheter, and it seems that he has been on dialysis over the past year. REVIEW OF SYSTEMS: Unable to perform review of systems secondary to patient being intubated and sed ated. PAST MEDICAL HISTORY: Entails asthma, COPD, nephrolithiasis, end-stage renal disease on hemodialysi s, type 2 diabetes, hypertension, morbidly obese, smoker, coronary artery disease. He is on hemodia lysis schedule Monday, Monday, Monday. PAST SURGICAL HISTORY: Multiple left upper extremity AV fistula creations and chest wall catheter a nd recent cardiac catheterization. FAMILY HISTORY: Coronary artery disease. SOCIAL HISTORY: Does not have any history of alcohol or illicit drug use, smoking cigarettes, 1 pac k per day for the past 40 years. PHYSICAL EXAMINATION: GENERAL: The patient is sedated and intubated and nonresponsive at the moment. HEENT: Normocephalic, atraumatic. ET tube in position and intact. NECK: Supple. No carotid bruit. PULMONARY: Coarse breath sounds bilaterally and some crackles at the bases. CARDIOVASCULAR: S1, S2 present. No murmurs identified. ABDOMEN: Soft, nontender, nondistended. Bowel sounds positive. Truncal obesity. EXTREMITIES: Palpable femoral pulses, nonpalpable pedal pulses. Motor and sensory, unable to ascer tain secondary to patient being intubated and sedated. Edema 1+ and capillary refill 3 to 4 seconds . Left upper extremity palpable brachial pulse. Motor, sensory, unable to ascertain secondary to cherelle ent being intubated and sedated. Capillary refill 2 to 3 seconds. Surgical scar is well healed. T here is a fistula with weekend bruit and thrill. ASSESSMENT AND PLAN: End-stage renal disease: It seems that the patient's left upper extremity AV fistula may have malfunctioned. Currently, since the patient is still in critical condition, it is difficult to be able to perform a fistulogram to better investigate and delineate the possibilities as to why hemodialysis was having issues during his sessions. We will plan to place an urgent right groin hemodialysis catheter for now in order for him to be able to have dialysis and resolve his hy perkalemia. We will schedule him to undergo a left upper extremity ultrasound to investigate furthe r for areas of neointimal hyperplasia and possible stenosis. We will further obtain bilateral upper extremity vein mapping in case we are not able to salvage his fistula for him. Optimize vascular status (BP meds, diet, nutrition, exercise, sugar control, antiplatelets). Discussed findings, plan and management with the son and daughter at the bedside and they understand . I answered all the questions that they agree to proceed with our intervention. Thank you for allowing us to partake in the care of your patient. Please call with any questions. Dictated By: JOSE DANIEL ARZATE/BATSHEVA Conf#: [id number] DID#: [id number]
[2016-08-04] MEDS: METOPROLOL 25 MG TAB NGT SCH ×2 (10:02→21:00)
[2016-08-04] MEDS: FENTAnyl 1,000 MCG in DEXTROSE 5% 80 ML IV SCH ×2 (10:34→20:06)
[2016-08-04] MEDS: ARFORMOTEROL TARTRATE 15MCG/2 ML AMP NEB SCH ×2 (11:05→21:56)
[2016-08-04] MEDS: BUDESONIDE (NEB) 0.5MG/2ML AMP HHN SCH ×2 (11:05→21:56)
--- NOTE | 2016-08-04 12:04 | CONS ---
Date/Time of Note Date/Time of Note DATE: 08/04/16 TIME: 12:00 Consult Date/Type/Reason Admit Date/Time Jul 27, 2016 at 23:29 Initial Consult Date 07/28/16 Type of Consultation: Neurology Reason for Consultation anoxic injury evaluation seizures Subjective no seizures reported overnight this morning he began having abdominal twitching as well as increased left leg rhythmic jerking per daughter at bedside the movements subsided with prn ativan Objective Vital Signs Date Time Temp Pulse Resp B/P Pulse Ox O2 Delivery O2 Flow Rate FiO2 08/04/16 09:00 86 18 109/62 95 Mechanical Ventilator 08/04/16 08:00 98.7 08/04/16 05:27 40 Intake and Output 08/03/16 08/03/16 08/04/16 15:00 23:00 07:00 Intake Total 974.22 ml 744.09 ml 240 ml Output Total 0 ml 405 ml 0 ml Balance 974.22 ml 339.09 ml 240 ml intubated not overbreathing ventilator weak corneals and weak gag unable to follow commands or open his eyes to voice no withdrawal to noxious stimuli in extremities abdominal and left leg twitching observed Results/Medications Result Diagram: 08/04/16 0500 08/04/16 0500 Results 24 hrs Laboratory Tests Test 08/03/16 17:06 08/03/16 21:28 08/04/16 00:22 08/04/16 05:00 Bedside Glucose 128 102 112 Alanine Aminotransferase (ALT/SGPT) 93 H Albumin 3.8 Albumin/Globulin Ratio 0.95 Alkaline Phosphatase 121 Anion Gap 37 #H Aspartate Amino Transf (AST/SGOT) 64 H Basophils # 0.1 Basophils % 0.3 Blood Morphology Comment Blood Urea Nitrogen 119 #H Calcium Level 6.8 L Carbon Dioxide Level 15 L Chloride Level 90 L Creatinine 11.25 #H Direct Bilirubin 0.00 Eosinophils # 0.3 Eosinophils % 1.8 Globulin 4.00 H Glucose Level 136 Hematocrit 32.7 L Hemoglobin 11.1 L Indirect Bilirubin 0.0 Lymphocytes # 1.6 Lymphocytes % 10.0 L Mean Corpuscular Hemoglobin 31.6 Mean Corpuscular Hemoglobin Concent 33.9 Mean Corpuscular Volume 93.3 Mean Platelet Volume 8.8 Monocytes # 1.3 H Monocytes % 8.5 Neutrophils # 12.5 H Neutrophils % 79.4 H Nucleated Red Blood Cells # 0.0 Nucleated Red Blood Cells % 0.0 Platelet Count 277 Potassium Level 6.2 *H Red Blood Count 3.51 L Red Cell Distribution Width 15.4 H Sodium Level 136 Total Bilirubin 0.0 L Total Protein 7.8 White Blood Count 15.7 #H Test 08/04/16 05:56 08/04/16 09:42 Bedside Glucose 125 106 Medications Current Medications Norepinephrine/ Dextrose (Levophed/D5W) 500 ml @ 1.87 mls/hr TITRATE IV Last administered on 07/28/16 21:18; Admin Dose 11.25 MLS/HR; Start 07/28/16 at 04: 00 Labetalol HCl (Labetalol) 10 mg Q6H PRN IV sbp > 160 Last administered on 00:15; Admin Dose 10 MG; Start 07/28/16 at 00:30 Acetaminophen (Tylenol Supp) 650 mg Q6H PRN [place] PAIN AND OR ELEVATED TEMP Last administered on 07/31/16 17:30; Admin Dose 650 MG; Start 07/28/16 at 08:30 Miscellaneous Information 1 ea NOTE XX ; Start 07/28/16 at 09:00 Glucose (Glutose) 15 gm Q15M PRN PO DECREASED GLUCOSE; Start 07/28/16 at 09:00 Glucose (Glutose) 22.5 gm Q15M PRN PO DECREASED GLUCOSE; Start 07/28/16 at 09: 00 Dextrose (D50w Syringe) 25 ml Q15M PRN IV DECREASED GLUCOSE; Start 07/28/16 at 09:00 Dextrose (D50w Syringe) 50 ml Q15M PRN IV DECREASED GLUCOSE; Start 07/28/16 at 09:00 Glucagon (Glucagen) 1 mg Q15M PRN IM DECREASED GLUCOSE; Start 07/28/16 at 09:00 Glucose (Glutose) 15 gm Q15M PRN BUCCAL DECREASED GLUCOSE; Start 07/28/16 at 09 :00 IV Flush (NS 10 ml) 10 ml PRN PRN IV IV PROTOCOL; Start 07/29/16 at 17:00 Metoprolol Tartrate (Lopressor) 25 mg BID NGT Last administered on 08/04/16 10: 02; Admin Dose 25 MG; Start 07/31/16 at 09:00 Morphine Sulfate (morphine) 2 mg Q4 PRN IV PAIN Last administered on 08/02/16 00:07; Admin Dose 2 MG; Start 07/31/16 at 12:00 Pantoprazole 40 mg 40 mg DAILY@06 IV Last administered on 08/04/16 06:00; Admin Dose 40 MG; Start 08/02/16 at 06:00 Levetiracetam 1500 mg/Sodium Chloride 115 ml @ 420 mls/hr Q12 IVPB Last administered on 08/04/16 09:45; Admin Dose 420 MLS/HR; Start 08/01/16 at 21:00 Fentanyl/Dextrose (D5W) 100 ml @ 2.5 mls/hr TITRATE IV Last administered on 10:34; Admin Dose 10 MLS/HR; Start 08/02/16 at 01:00 Lorazepam 1 mg 1 mg Q1H PRN IV SEIZURES Last administered on 08/04/16 06:52; Admin Dose 1 MG; Start 08/02/16 at 02:00 Piperacillin Sod/ Tazobactam Sod (Zosyn 2.25gm/ 50ml (Pmx)) 50 ml @ 100 mls/hr Q8 IVPB Last administered on 08/04/16 06:00; Admin Dose 100 MLS/HR; Start 08/02 at 22:00 Acetaminophen (Tylenol Liquid) 650 mg Q4H PRN [place] PAIN AND OR ELEVATED TEMP Last administered on 08/04/16 00:23; Admin Dose 650 MG; Start 08/03/16 at 00:00 Insulin Glargine (Lantus) 20 unit DAILY@08 SC Last administered on 08/04/16 09: 45; Admin Dose 20 UNIT; Start 08/03/16 at 12:00 Insulin Aspart NOVOLOG *MILD* ALGORI... Q4 SC Last administered on 08/03/16 12: 18; Admin Dose 2 UNIT; Start 08/03/16 at 13:00 Valproate Sodium 500 mg/Sodium Chloride 55 ml @ 55 mls/hr Q6 IVPB Last administered on 08/04/16 06:01; Admin Dose 55 MLS/HR; Start 08/03/16 at 13:30 Midazolam HCl/ Dextrose (Versed/D5W) 50 ml @ 0 mls/hr TITRATE IV Last administered on 08/04/16 11:41; Admin Dose 10 MLS/HR; Start 08/03/16 at 19:00 Assessment/Plan Chief Complaint/Hosp Course 56 year old M with hx of ESRD, HTN, DM, Asthma began experiencing SOB suffered PEA arrest with ROSC for 20 mins, STEMI s/p cardiac catheterization with no intervention with possible seizure activity vs. post anoxic myoclonus. EEG showed burst suppression pattern suggesting severe encephalopathy with seizure activity. CT brain showed nothing acute. Overall prognosis remains poor, family still making decisions regarding further care. Burst suppression seen on initial EEG generally associated with a poor prognosis for neurologic recovery They are awaiting an MRI Brain w/o contrast and requesting a repeat EEG as he continues to have persistent muscle jerking. -continue Keppra 1500 mg q12h -VPA increased to 750 mg q6h check levels tomorrow am -low dose ativan prn if movements persist over 5 mins -MRI Brain w/o contrast to evaluate for ischemic injury -taper off sedation -will continue to follow, discussed recommendations w daughter at bedside Problems: TORI CHERY MD Aug 04, 2016 12:04
[2016-08-04] MEDS: VALPROATE INJ 750 MG in SOD CHLORIDE 0.9% 50 ML IVPB SCH ×3 (13:32→23:59)
--- NOTE | 2016-08-04 15:10 | PN ---
Date/Time of Note Date/Time of Note DATE: 08/04/16 TIME: 15:09 Assessment/Plan VTE Prophylaxis VTE Prophylaxis Intervention: heparin Assessment/Plan Chief Complaint/Hosp Course 1. PEA s/p cardiac arrest with ROSC - will admit the patient to the ICU, continue telemetry monitoring, f/u cardio recs, LHC - negative for coronary artery disease, ECHO, carotid duplex -Etiology of PEA likely 2/2 Hypoxia -CT Brain shows no CVA or signs of anoxic injury but EEG shows presence of burst suppression pattern throughout the tracing, which is severely encephalopathic, with epileptiform activity -Neuro on the case -Pt having myoclonic jerks vs Seizures, cont Keppra per Neuro, on Versed and Fentanyl as well as Ativan PRN, mentation is still poor off sedation and will likely need Trach/PEG -MRI Brain unable to be done as pt on max sedation and still moving 2. ESRD on HD - dialysis now, and prn as per nephrology 3. SIRS with elevated white count and fever- R Lung opacity noted and may be Asp PNA -cont cefepime/vanc 4. VDRF -pulm consult appreciated 5. Hypotension - cardiac shock vs septic shock - continue with pressor support 6. CHF - acute - diastolic vs systolic dysfunction - fluid to be removed via dialysis - monitor I/O's 7. Metabolic with respiratory acidosis - 2/2 to cardiac arrest - s/p bicarb- resolved 8. Essential hypertension - hold medications as patient is hypotensive 9. Type II DM-A1C at 7.3 -DC Insulin gtt and start Lantus, NISS 10. Asthma - currently on vent, continue with breathing treatments 11. Smoking abuse - patient will be counseled on cessation once extubated 12. Obesity - consider nutrition consult once extubated 13. GI ppx - protonix 14. DVT ppx - heparin Problems: Subjective 24 Hr Interval Summary Subjective hx not possible: pt non-verbal Exam/Review of Systems Vital Signs Vitals Vital Signs Date Time Temp Pulse Resp B/P Pulse Ox O2 Delivery O2 Flow Rate FiO2 08/04/16 14:00 84 22 115/64 94 Mechanical Ventilator 08/04/16 12:00 98.5 08/04/16 05:27 40 Intake and Output 08/03/16 08/03/16 08/04/16 15:00 23:00 07:00 Intake Total 974.22 ml 744.09 ml 240 ml Output Total 0 ml 405 ml 0 ml Balance 974.22 ml 339.09 ml 240 ml Exam Constitutional: non-verbal Respiratory: clear to auscultation Cardiovascular: regular rate and rhythm Gastrointestinal: soft, No distended Musculoskeletal: nl extremities to inspection Results Result Diagram: 08/04/16 0500 08/04/16 0500 Results 24 hrs Laboratory Tests Test 08/03/16 17:06 08/03/16 21:28 08/04/16 00:22 08/04/16 05:00 Bedside Glucose 128 102 112 Alanine Aminotransferase (ALT/SGPT) 93 H Albumin 3.8 Albumin/Globulin Ratio 0.95 Alkaline Phosphatase 121 Anion Gap 37 #H Aspartate Amino Transf (AST/SGOT) 64 H Basophils # 0.1 Basophils % 0.3 Blood Morphology Comment Blood Urea Nitrogen 119 #H Calcium Level 6.8 L Carbon Dioxide Level 15 L Chloride Level 90 L Creatinine 11.25 #H Direct Bilirubin 0.00 Eosinophils # 0.3 Eosinophils % 1.8 Globulin 4.00 H Glucose Level 136 Hematocrit 32.7 L Hemoglobin 11.1 L Indirect Bilirubin 0.0 Lymphocytes # 1.6 Lymphocytes % 10.0 L Mean Corpuscular Hemoglobin 31.6 Mean Corpuscular Hemoglobin Concent 33.9 Mean Corpuscular Volume 93.3 Mean Platelet Volume 8.8 Monocytes # 1.3 H Monocytes % 8.5 Neutrophils # 12.5 H Neutrophils % 79.4 H Nucleated Red Blood Cells # 0.0 Nucleated Red Blood Cells % 0.0 Platelet Count 277 Potassium Level 6.2 *H Red Blood Count 3.51 L Red Cell Distribution Width 15.4 H Sodium Level 136 Total Bilirubin 0.0 L Total Protein 7.8 White Blood Count 15.7 #H Test 08/04/16 05:56 08/04/16 09:42 08/04/16 12:32 Bedside Glucose 125 106 105 Medications Medications Current Medications Norepinephrine/ Dextrose (Levophed/D5W) 500 ml @ 1.87 mls/hr TITRATE IV Last administered on 07/28/16 21:18; Admin Dose 11.25 MLS/HR; Start 07/28/16 at 04: 00 Labetalol HCl (Labetalol) 10 mg Q6H PRN IV sbp > 160 Last administered on 00:15; Admin Dose 10 MG; Start 07/28/16 at 00:30 Acetaminophen (Tylenol Supp) 650 mg Q6H PRN IN PAIN AND OR ELEVATED TEMP Last administered on 07/31/16 17:30; Admin Dose 650 MG; Start 07/28/16 at 08:30 Miscellaneous Information 1 ea NOTE XX ; Start 07/28/16 at 09:00 Glucose (Glutose) 15 gm Q15M PRN PO DECREASED GLUCOSE; Start 07/28/16 at 09:00 Glucose (Glutose) 22.5 gm Q15M PRN PO DECREASED GLUCOSE; Start 07/28/16 at 09: 00 Dextrose (D50w Syringe) 25 ml Q15M PRN IV DECREASED GLUCOSE; Start 07/28/16 at 09:00 Dextrose (D50w Syringe) 50 ml Q15M PRN IV DECREASED GLUCOSE; Start 07/28/16 at 09:00 Glucagon (Glucagen) 1 mg Q15M PRN IM DECREASED GLUCOSE; Start 07/28/16 at 09:00 Glucose (Glutose) 15 gm Q15M PRN BUCCAL DECREASED GLUCOSE; Start 07/28/16 at 09 :00 IV Flush (NS 10 ml) 10 ml PRN PRN IV IV PROTOCOL; Start 07/29/16 at 17:00 Metoprolol Tartrate (Lopressor) 25 mg BID NGT Last administered on 08/04/16 10: 02; Admin Dose 25 MG; Start 07/31/16 at 09:00 Morphine Sulfate (morphine) 2 mg Q4 PRN IV PAIN Last administered on 08/02/16 00:07; Admin Dose 2 MG; Start 07/31/16 at 12:00 Pantoprazole 40 mg 40 mg DAILY@06 IV Last administered on 08/04/16 06:00; Admin Dose 40 MG; Start 08/02/16 at 06:00 Levetiracetam 1500 mg/Sodium Chloride 115 ml @ 420 mls/hr Q12 IVPB Last administered on 08/04/16 09:45; Admin Dose 420 MLS/HR; Start 08/01/16 at 21:00 Fentanyl/Dextrose (D5W) 100 ml @ 2.5 mls/hr TITRATE IV Last administered on 10:34; Admin Dose 10 MLS/HR; Start 08/02/16 at 01:00 Lorazepam 1 mg 1 mg Q1H PRN IV SEIZURES Last administered on 08/04/16 06:52; Admin Dose 1 MG; Start 08/02/16 at 02:00 Piperacillin Sod/ Tazobactam Sod (Zosyn 2.25gm/ 50ml (Pmx)) 50 ml @ 100 mls/hr Q8 IVPB Last administered on 08/04/16 14:27; Admin Dose 100 MLS/HR; Start 08/02 at 22:00 Acetaminophen (Tylenol Liquid) 650 mg Q4H PRN NGT PAIN AND OR ELEVATED TEMP Last administered on 08/04/16 00:23; Admin Dose 650 MG; Start 08/03/16 at 00:00 Insulin Glargine (Lantus) 20 unit DAILY@08 SC Last administered on 08/04/16 09: 45; Admin Dose 20 UNIT; Start 08/03/16 at 12:00 Insulin Aspart NOVOLOG *MILD* ALGORI... Q4 SC Last administered on 08/03/16 12: 18; Admin Dose 2 UNIT; Start 08/03/16 at 13:00 Midazolam HCl 50 mg/Dextrose 50 ml @ 0 mls/hr TITRATE IV Last administered on 11:41; Admin Dose 10 MLS/HR; Start 08/03/16 at 19:00 Valproate Sodium/ Sodium Chloride (Depacon/NS) 57.5 ml @ 55 mls/hr Q6 IVPB Last administered on 08/04/16 13:32; Admin Dose 55 MLS/HR; Start 08/04/16 at 13: 00 BARNEY MCKEE Aug 04, 2016 15:10
--- NOTE | 2016-08-04 19:01 | SP ---
DATE OF PROCEDURE: 08/04/2016 HISTORY: This is a 56-year-old male who was admitted with cardiorespiratory arrest and was found to have severe encephalopathy with seizure activity. This is a repeat EEG and was done with ECS lucila col. Temperature of the patient was 99.2 degrees Fahrenheit. PROCEDURE: Utilizing a 16-channel EEG machine, cap scalp electrodes were applied in accordance with the International 10/20 system. [id number] and [id number] montages were displayed. Electric al impedances were measured and reported. DESCRIPTION: During the resting state, posterior dominant rhythm, a clear posterior dominant rhythm was not seen. EKG artifact was noted at times, specifically during decreasing the sensitivity. F ull ECS protocol was followed and there was no response to painful stimulus, photic stimulation or e yes held. INTERPRETATION: This EEG is abnormal, consistent with brain . Please correlate with the patie nt's clinical examination, cold caloric and apnea tests. Dictated By: DANIEL GREGG/BATSHEVA Conf#: [id number] DID#: [id number]
[2016-08-05] VITALS (56 sets, daily range): BP systolic 100–196; BP diastolic 53–97; PULSE 85–103; RESP 15–25
[2016-08-05] MEDS: INSULIN ASPART [NOVOLOG] 3 ML PEN SC SCH ×6 (00:15→21:00)
[2016-08-05] MEDS: ALBUTEROL HFA 8 GM INHALER INH SCH ×6 (01:12→19:21)
[2016-08-05] MEDS: IPRATROPIUM (HFA) 12.9 GM INHALER INH SCH ×6 (01:12→19:21)
[2016-08-05] MEDS: MIDAZOLAM 50 MG in DEXTROSE 5% 40 ML IV SCH (04:48)
[2016-08-05] MEDS: PANTOPRAZOLE 40 MG INJ IV SCH (05:21)
[2016-08-05] MEDS: PIPER-TAZO 2.25 GM (PMX) 50 ML IVPB SCH ×3 (05:21→22:00)
[2016-08-05] MEDS: FENTAnyl 1,000 MCG in DEXTROSE 5% 80 ML IV SCH (06:33)
--- NOTE | 2016-08-05 06:34 | RADRPT ---
PROCEDURE: XR Chest. CLINICAL INDICATION: Pneumonia TECHNIQUE: An AP view of the chest was obtained. COMPARISON: Chest x-ray dated 08/04/2016 FINDINGS: The endotracheal tube tip is approximately 2.4 cm above the chino. The tip of the enteric tube ex tends below the left diaphragm. There is a right upper extremity PICC line with tip near the cavoatr ial junction. There is prominence of the interstitial markings. No pleural effusion or pneumothorax is seen. Th e cardiomediastinal silhouette is mildly enlarged . Calcifications are seen within the aortic arch. The osseous structures demonstrate senescent changes. IMPRESSION: 1. Mild prominence of the interstitial markings, may reflect mild underlying interstitial edema or chronic lung changes. Findings are mildly increased when compared to the prior examination. 2. Mild cardiomegaly and aortic atherosclerosis. 3. Tubes and lines, as described above. RPTAT: HH .Mona Paredes MD, MD Date Time Electronically viewed and signed by .Mona Paredes MD, on 08/05/2016 06:34 .G/
[2016-08-05] MEDS: VALPROATE INJ 750 MG in SOD CHLORIDE 0.9% 50 ML IVPB SCH ×3 (06:35→18:15)
[2016-08-05 06:36] LABS: BASOPHILS % 0.4 % (0.0-2.0); EOSINOPHILS # 0.6 10^3/ul (0.0-0.5); HEMATOCRIT 30.9 % (42.0-52.0); HEMOGLOBIN 10.7 g/dl (14.0-18.0); LYMPHOCYTES # 1.6 10^3/ul (0.8-2.9); LYMPHOCYTES % 13.1 % (15.0-51.0); MEAN CORPUSCULAR HEMOGLOBIN 31.9 pg (29.0-33.0); MEAN CORPUSCULAR HGB CONC 34.5 g/dl (32.0-37.0); MEAN CORPUSCULAR VOLUME 92.2 fl (82.0-101.0); MEAN PLATELET VOLUME 8.7 fl (7.4-10.4); NEUTROPHIL # 9.1 10^3/ul (1.6-7.5); NEUTROPHILS % 73.5 % (39.0-77.0); PLATELET COUNT 293 10^3/UL (140-440); RED BLOOD COUNT 3.35 10^6/ul (4.70-6.10); RED CELL DISTRIBUTION WIDTH 15.4 % (11.5-14.5); UNCORRECTED WBC 12.4 10^3/ul (4.8-10.8); WHITE BLOOD COUNT 12.4 10^3/ul (4.8-10.8)
[2016-08-05 06:52] LABS: POTASSIUM 4.9 mmol/L (3.5-5.1)
[2016-08-05 06:56] LABS: CALCIUM 6.8 mg/dl (8.4-10.2); MAGNESIUM 2.8 mg/dl (1.7-2.5)
[2016-08-05 07:08] LABS: CREATININE 10.38 mg/dl (0.61-1.24); PHOSPHORUS 13.9 mg/dl (2.5-4.9)
[2016-08-05 07:49] LABS: Allen Test ACCEPTAB; Arterial Base Excess -7.2 mmol/L (-3.0-3); Arterial COHb 0.3 % (0.0-3.0); Arterial Fraction of Oxyhgb 94.3 % (93.0-99.0); Arterial HCO3 18.4 mmol/L (22.0-26.0); Arterial MetHb 0.3 % (0.0-1.5); Arterial Total Hemglobin 11.5 g/dl (12.0-18.0); MODE VENT - AC
[2016-08-05 07:50] LABS: CONDITION 1; LH ANALYZER COMMENTS 1
[2016-08-05] MEDS: INSULIN GLARGINE [LANtus] 3 ML PEN SC SCH (08:16)
[2016-08-05] MEDS: METOPROLOL 25 MG TAB NGT SCH ×2 (08:17→20:29)
[2016-08-05] MEDS: LEVETIRACETAM IV 1,500 MG in SOD CHLORIDE 0.9% 100 ML IVPB SCH ×2 (08:18→20:28)
[2016-08-05] MEDS: ARFORMOTEROL TARTRATE 15MCG/2 ML AMP NEB SCH ×2 (08:20→19:22)
[2016-08-05] MEDS: BUDESONIDE (NEB) 0.5MG/2ML AMP HHN SCH ×2 (08:20→19:22)
--- NOTE | 2016-08-05 08:29 | CONS ---
Date/Time of Note Date/Time of Note DATE: 08/05/16 TIME: 08:23 Assessment/Plan Assessment/Plan Chief Complaint/Hosp Course #1 end-stage renal disease , this patient has ESRD due to diabetic nephropathy and has been on maintenance hemodialysis for about 1 year. He has dialysis ordered for today . He has a new R femoral vascath that was placed today because of poorly functioning L upper arm AV fistula . #2 the patient is status post a cardiac arrest at home #3 altered level of consciousness, probable anoxic encephalopathy. EEG done yesterday is abnormal consistent with brain . #4 insulin-dependent diabetes mellitus #5 seizures #6 ventilator dependent respiratory failure , h/o COPD and pneumonia on CXR . #7 hyperphosphatemia , calcium acetate started today . Problems: Consultation Date/Type/Reason Admit Date/Time Jul 27, 2016 at 23:29 Initial Consult Date 07/28/16 Type of Consultation: Neurology 24 HR Interval Summary Free Text/Dictation Patient is in the ICU on ventilator . He has some lower extremety tremors . He is sedated and unresponsive . Exam/Review of Systems Vital Signs Vitals Vital Signs Date Time Temp Pulse Resp B/P Pulse Ox O2 Delivery O2 Flow Rate FiO2 08/05/16 07:30 90 22 127/72 96 08/05/16 05:21 40 08/05/16 04:00 99.5 08/05/16 01:00 Mechanical Ventilator Intake and Output 08/04/16 08/04/16 08/05/16 15:00 23:00 07:00 Intake Total 705 ml 1322.5 ml 697.5 ml Output Total 25 ml 1800 ml 30 ml Balance 680 ml -477.5 ml 667.5 ml Exam Constitutional: non-verbal Respiratory: wheezing Cardiovascular: regular rate and rhythm Gastrointestinal: distended, soft Musculoskeletal: nl extremities to inspection Results Result Diagram: 08/05/16 0530 08/05/16 0530 Results 24 hrs Laboratory Tests Test 08/04/16 09:42 08/04/16 12:32 08/04/16 17:29 08/04/16 21:29 Bedside Glucose 106 105 134 116 Test 08/05/16 00:00 08/05/16 05:02 08/05/16 05:30 08/05/16 07:00 Bedside Glucose 104 114 Anion Gap 31 H Basophils # 0.0 Basophils % 0.4 Blood Morphology Comment Blood Urea Nitrogen 101 H Calcium Level 6.8 L Carbon Dioxide Level 19 L Chloride Level 93 L Creatinine 10.38 H Eosinophils # 0.6 H Eosinophils % 5.0 Glucose Level 101 Hematocrit 30.9 L Hemoglobin 10.7 L Lymphocytes # 1.6 Lymphocytes % 13.1 L Magnesium Level 2.8 H Mean Corpuscular Hemoglobin 31.9 Mean Corpuscular Hemoglobin Concent 34.5 Mean Corpuscular Volume 92.2 Mean Platelet Volume 8.7 Monocytes # 1.0 H Monocytes % 8.0 Neutrophils # 9.1 H Neutrophils % 73.5 Nucleated Red Blood Cells # 0.0 Nucleated Red Blood Cells % 0.0 Phosphorus Level 13.9 H Platelet Count 293 Potassium Level 4.9 Red Blood Count 3.35 L Red Cell Distribution Width 15.4 H Sodium Level 138 Valproic Acid (Depakene) Level 25 L White Blood Count 12.4 #H Arterial Blood HCO3 18.4 L Arterial Blood Base Excess -7.2 L Arterial Blood Oxygen Saturation 94.9 L Osiel Test ACCEPTAB Arterial Blood Gas Puncture Site Right Radial Arterial Blood Carboxyhemoglobin 0.3 Arterial Blood Date Drawn 08/05/2016 7:30:09 AM Arterial Blood Methemoglobin 0.3 Arterial Blood pCO2 (Temp correct) 37.3 Arterial Blood pH (Temp corrected) 7.310 L Arterial Blood pO2 (Temp corrected) 86.3 Blood Gas A-a O2 Differential 156.0 H Blood Gas Actual Respiration Rate 22 Blood Gas Low PEEP Setting 5.0 Blood Gas Modality VENT - AC Blood Gas Notified Time 08/05/2016 7:49:56 AM Blood Gas Notified Whom JLD Blood Gas Respiration Rate 22.0 Blood Gas Specimen Source Blood arterial Blood Gas Temperature 37.0 Blood Gas Tidal Volume 600.0 FiO2 40.0 Oxyhemoglobin Percent 94.3 Total Hemoglobin 11.5 L Medications Medications Current Medications Norepinephrine/ Dextrose (Levophed/D5W) 500 ml @ 1.87 mls/hr TITRATE IV Last administered on 07/28/16 21:18; Admin Dose 11.25 MLS/HR; Start 07/28/16 at 04: 00 Labetalol HCl (Labetalol) 10 mg Q6H PRN IV sbp > 160 Last administered on 00:15; Admin Dose 10 MG; Start 07/28/16 at 00:30 Acetaminophen (Tylenol Supp) 650 mg Q6H PRN [place] PAIN AND OR ELEVATED TEMP Last administered on 07/31/16 17:30; Admin Dose 650 MG; Start 07/28/16 at 08:30 Miscellaneous Information 1 ea NOTE XX ; Start 07/28/16 at 09:00 Glucose (Glutose) 15 gm Q15M PRN PO DECREASED GLUCOSE; Start 07/28/16 at 09:00 Glucose (Glutose) 22.5 gm Q15M PRN PO DECREASED GLUCOSE; Start 07/28/16 at 09: 00 Dextrose (D50w Syringe) 25 ml Q15M PRN IV DECREASED GLUCOSE; Start 07/28/16 at 09:00 Dextrose (D50w Syringe) 50 ml Q15M PRN IV DECREASED GLUCOSE; Start 07/28/16 at 09:00 Glucagon (Glucagen) 1 mg Q15M PRN IM DECREASED GLUCOSE; Start 07/28/16 at 09:00 Glucose (Glutose) 15 gm Q15M PRN BUCCAL DECREASED GLUCOSE; Start 07/28/16 at 09 :00 IV Flush (NS 10 ml) 10 ml PRN PRN IV IV PROTOCOL; Start 07/29/16 at 17:00 Metoprolol Tartrate (Lopressor) 25 mg BID NGT Last administered on 08/04/16 10: 02; Admin Dose 25 MG; Start 07/31/16 at 09:00 Morphine Sulfate (morphine) 2 mg Q4 PRN IV PAIN Last administered on 08/02/16 00:07; Admin Dose 2 MG; Start 07/31/16 at 12:00 Pantoprazole 40 mg 40 mg DAILY@06 IV Last administered on 08/05/16 05:21; Admin Dose 40 MG; Start 08/02/16 at 06:00 Levetiracetam 1500 mg/Sodium Chloride 115 ml @ 420 mls/hr Q12 IVPB Last administered on 08/04/16 21:28; Admin Dose 420 MLS/HR; Start 08/01/16 at 21:00 Fentanyl/Dextrose (D5W) 100 ml @ 2.5 mls/hr TITRATE IV Last administered on 06:33; Admin Dose 10 MLS/HR; Start 08/02/16 at 01:00 Lorazepam 1 mg 1 mg Q1H PRN IV SEIZURES Last administered on 08/04/16 18:42; Admin Dose 1 MG; Start 08/02/16 at 02:00 Piperacillin Sod/ Tazobactam Sod (Zosyn 2.25gm/ 50ml (Pmx)) 50 ml @ 100 mls/hr Q8 IVPB Last administered on 08/05/16 05:21; Admin Dose 100 MLS/HR; Start 08/02 at 22:00 Acetaminophen (Tylenol Liquid) 650 mg Q4H PRN NGT PAIN AND OR ELEVATED TEMP Last administered on 08/04/16 21:40; Admin Dose 650 MG; Start 08/03/16 at 00:00 Insulin Glargine (Lantus) 20 unit DAILY@08 SC Last administered on 08/04/16 09: 45; Admin Dose 20 UNIT; Start 08/03/16 at 12:00 Insulin Aspart NOVOLOG *MILD* ALGORI... Q4 SC Last administered on 08/03/16 12: 18; Admin Dose 2 UNIT; Start 08/03/16 at 13:00 Midazolam HCl 50 mg/Dextrose 50 ml @ 0 mls/hr TITRATE IV Last administered on 04:48; Admin Dose 10 MLS/HR; Start 08/03/16 at 19:00 Valproate Sodium/ Sodium Chloride (Depacon/NS) 57.5 ml @ 55 mls/hr Q6 IVPB Last administered on 08/05/16 06:35; Admin Dose 55 MLS/HR; Start 08/04/16 at 13: 00 Calcium Acetate (Phoslo) 667 mg Q6 NGT ; Start 08/05/16 at 08:30; Status ROSCOE HARRIS MD Aug 05, 2016 08:29
--- NOTE | 2016-08-05 08:39 | CONS ---
Date/Time of Note Date/Time of Note DATE: 08/05/16 TIME: 08:37 Assessment/Plan Assessment/Plan Chief Complaint/Hosp Course #1 end-stage renal disease , this patient has ESRD due to diabetic nephropathy and has been on maintenance hemodialysis for about 1 year. He has dialysis ordered for today . He has a new R femoral vascath that was placed today because of poorly functioning L upper arm AV fistula . #2 the patient is status post a cardiac arrest at home #3 altered level of consciousness, probable anoxic encephalopathy. EEG done yesterday is abnormal consistent with brain . #4 insulin-dependent diabetes mellitus #5 seizures #6 ventilator dependent respiratory failure , h/o COPD and pneumonia on CXR . #7 hyperphosphatemia , calcium acetate started today . Problems: Consultation Date/Type/Reason Admit Date/Time Jul 27, 2016 at 23:29 Initial Consult Date 07/28/16 Type of Consultation: Neurology 24 HR Interval Summary Free Text/Dictation He is awake and alert Constitutional: improved, no complaints Exam/Review of Systems Vital Signs Vitals Vital Signs Date Time Temp Pulse Resp B/P Pulse Ox O2 Delivery O2 Flow Rate FiO2 08/05/16 07:30 90 22 127/72 96 08/05/16 05:21 40 08/05/16 04:00 99.5 08/05/16 01:00 Mechanical Ventilator Intake and Output 08/04/16 08/04/16 08/05/16 15:00 23:00 07:00 Intake Total 705 ml 1322.5 ml 697.5 ml Output Total 25 ml 1800 ml 30 ml Balance 680 ml -477.5 ml 667.5 ml Exam Constitutional: alert, oriented, well developed Psych: nl mood/affect, no complaints Respiratory: clear to auscultation Cardiovascular: regular rate and rhythm Gastrointestinal: soft Musculoskeletal: nl extremities to inspection Results Result Diagram: 08/05/16 0530 08/05/16 0530 Results 24 hrs Laboratory Tests Test 08/04/16 09:42 08/04/16 12:32 08/04/16 17:29 08/04/16 21:29 Bedside Glucose 106 105 134 116 Test 08/05/16 00:00 08/05/16 05:02 08/05/16 05:30 08/05/16 07:00 Bedside Glucose 104 114 Anion Gap 31 H Basophils # 0.0 Basophils % 0.4 Blood Morphology Comment Blood Urea Nitrogen 101 H Calcium Level 6.8 L Carbon Dioxide Level 19 L Chloride Level 93 L Creatinine 10.38 H Eosinophils # 0.6 H Eosinophils % 5.0 Glucose Level 101 Hematocrit 30.9 L Hemoglobin 10.7 L Lymphocytes # 1.6 Lymphocytes % 13.1 L Magnesium Level 2.8 H Mean Corpuscular Hemoglobin 31.9 Mean Corpuscular Hemoglobin Concent 34.5 Mean Corpuscular Volume 92.2 Mean Platelet Volume 8.7 Monocytes # 1.0 H Monocytes % 8.0 Neutrophils # 9.1 H Neutrophils % 73.5 Nucleated Red Blood Cells # 0.0 Nucleated Red Blood Cells % 0.0 Phosphorus Level 13.9 H Platelet Count 293 Potassium Level 4.9 Red Blood Count 3.35 L Red Cell Distribution Width 15.4 H Sodium Level 138 Valproic Acid (Depakene) Level 25 L White Blood Count 12.4 #H Arterial Blood HCO3 18.4 L Arterial Blood Base Excess -7.2 L Arterial Blood Oxygen Saturation 94.9 L Osiel Test ACCEPTAB Arterial Blood Gas Puncture Site Right Radial Arterial Blood Carboxyhemoglobin 0.3 Arterial Blood Date Drawn 08/05/2016 7:30:09 AM Arterial Blood Methemoglobin 0.3 Arterial Blood pCO2 (Temp correct) 37.3 Arterial Blood pH (Temp corrected) 7.310 L Arterial Blood pO2 (Temp corrected) 86.3 Blood Gas A-a O2 Differential 156.0 H Blood Gas Actual Respiration Rate 22 Blood Gas Low PEEP Setting 5.0 Blood Gas Modality VENT - AC Blood Gas Notified Time 08/05/2016 7:49:56 AM Blood Gas Notified Whom JLD Blood Gas Respiration Rate 22.0 Blood Gas Specimen Source Blood arterial Blood Gas Temperature 37.0 Blood Gas Tidal Volume 600.0 FiO2 40.0 Oxyhemoglobin Percent 94.3 Total Hemoglobin 11.5 L Test 08/05/16 08:13 Bedside Glucose 103 Medications Medications Current Medications Norepinephrine/ Dextrose (Levophed/D5W) 500 ml @ 1.87 mls/hr TITRATE IV Last administered on 07/28/16 21:18; Admin Dose 11.25 MLS/HR; Start 07/28/16 at 04: 00 Labetalol HCl (Labetalol) 10 mg Q6H PRN IV sbp > 160 Last administered on 1/31/ 17at 00:15; Admin Dose 10 MG; Start 07/28/16 at 00:30 Acetaminophen (Tylenol Supp) 650 mg Q6H PRN [place] PAIN AND OR ELEVATED TEMP Last administered on 07/31/16 17:30; Admin Dose 650 MG; Start 07/28/16 at 08:30 Miscellaneous Information 1 ea NOTE XX ; Start 07/28/16 at 09:00 Glucose (Glutose) 15 gm Q15M PRN PO DECREASED GLUCOSE; Start 07/28/16 at 09:00 Glucose (Glutose) 22.5 gm Q15M PRN PO DECREASED GLUCOSE; Start 07/28/16 at 09: 00 Dextrose (D50w Syringe) 25 ml Q15M PRN IV DECREASED GLUCOSE; Start 07/28/16 at 09:00 Dextrose (D50w Syringe) 50 ml Q15M PRN IV DECREASED GLUCOSE; Start 07/28/16 at 09:00 Glucagon (Glucagen) 1 mg Q15M PRN IM DECREASED GLUCOSE; Start 07/28/16 at 09:00 Glucose (Glutose) 15 gm Q15M PRN BUCCAL DECREASED GLUCOSE; Start 07/28/16 at 09 :00 IV Flush (NS 10 ml) 10 ml PRN PRN IV IV PROTOCOL; Start 07/29/16 at 17:00 Metoprolol Tartrate (Lopressor) 25 mg BID NGT Last administered on 08/04/16 10: 02; Admin Dose 25 MG; Start 07/31/16 at 09:00 Morphine Sulfate (morphine) 2 mg Q4 PRN IV PAIN Last administered on 08/02/16 00:07; Admin Dose 2 MG; Start 07/31/16 at 12:00 Pantoprazole 40 mg 40 mg DAILY@06 IV Last administered on 08/05/16 05:21; Admin Dose 40 MG; Start 08/02/16 at 06:00 Levetiracetam 1500 mg/Sodium Chloride 115 ml @ 420 mls/hr Q12 IVPB Last administered on 08/04/16 21:28; Admin Dose 420 MLS/HR; Start 08/01/16 at 21:00 Fentanyl/Dextrose (D5W) 100 ml @ 2.5 mls/hr TITRATE IV Last administered on 06:33; Admin Dose 10 MLS/HR; Start 08/02/16 at 01:00 Lorazepam 1 mg 1 mg Q1H PRN IV SEIZURES Last administered on 08/04/16 18:42; Admin Dose 1 MG; Start 08/02/16 at 02:00 Piperacillin Sod/ Tazobactam Sod (Zosyn 2.25gm/ 50ml (Pmx)) 50 ml @ 100 mls/hr Q8 IVPB Last administered on 08/05/16 05:21; Admin Dose 100 MLS/HR; Start 08/02 at 22:00 Acetaminophen (Tylenol Liquid) 650 mg Q4H PRN NGT PAIN AND OR ELEVATED TEMP Last administered on 08/04/16 21:40; Admin Dose 650 MG; Start 08/03/16 at 00:00 Insulin Glargine (Lantus) 20 unit DAILY@08 SC Last administered on 08/04/16 09: 45; Admin Dose 20 UNIT; Start 08/03/16 at 12:00 Insulin Aspart NOVOLOG *MILD* ALGORI... Q4 SC Last administered on 08/03/16 12: 18; Admin Dose 2 UNIT; Start 08/03/16 at 13:00 Midazolam HCl 50 mg/Dextrose 50 ml @ 0 mls/hr TITRATE IV Last administered on 04:48; Admin Dose 10 MLS/HR; Start 08/03/16 at 19:00 Valproate Sodium/ Sodium Chloride (Depacon/NS) 57.5 ml @ 55 mls/hr Q6 IVPB Last administered on 08/05/16 06:35; Admin Dose 55 MLS/HR; Start 08/04/16 at 13: 00 Calcium Acetate (Phoslo) 667 mg Q6 NGT ; Start 08/05/16 at 08:30; Status ROSCOE HARRIS MD Aug 05, 2016 08:39
--- NOTE | 2016-08-05 10:23 | CONS ---
Date/Time of Note Date/Time of Note DATE: 08/05/16 TIME: 10:21 Consult Date/Type/Reason Admit Date/Time Jul 27, 2016 at 23:29 Initial Consult Date 07/28/16 Type of Consultation: pulmonary Subjective Patient remains unresponsive on mechanical ventilation No gag reflex No response to painful stimuli No spontaneous respiratory effort Objective Vital Signs Date Time Temp Pulse Resp B/P Pulse Ox O2 Delivery O2 Flow Rate FiO2 08/05/16 07:30 90 22 127/72 96 08/05/16 05:21 40 08/05/16 04:00 99.5 08/05/16 01:00 Mechanical Ventilator Intake and Output 08/04/16 08/04/16 08/05/16 15:00 23:00 07:00 Intake Total 705 ml 1322.5 ml 697.5 ml Output Total 25 ml 1800 ml 30 ml Balance 680 ml -477.5 ml 667.5 ml PHYSICAL EXAMINATION GENERAL: Elderly gentleman, intubated on mechanical ventilation, orally intubated VITAL SIGNS: see below. HEENT: Pupils unreactive CARDIAC: S1, S2, tachycardia. CHEST: Diminished air entry bilaterally. ABDOMEN: Mildly distended. No bowel sounds. EXTREMITIES: No cyanosis, clubbing or edema. NEUROLOGIC unresponsive this morning Results/Medications Result Diagram: 08/05/16 0530 08/05/16 0530 Results 24 hrs Laboratory Tests Test 08/04/16 12:32 08/04/16 17:29 08/04/16 21:29 08/05/16 00:00 Bedside Glucose 105 134 116 104 Test 08/05/16 05:02 08/05/16 05:30 08/05/16 07:00 08/05/16 08:13 Bedside Glucose 114 103 Anion Gap 31 H Basophils # 0.0 Basophils % 0.4 Blood Morphology Comment Blood Urea Nitrogen 101 H Calcium Level 6.8 L Carbon Dioxide Level 19 L Chloride Level 93 L Creatinine 10.38 H Eosinophils # 0.6 H Eosinophils % 5.0 Glucose Level 101 Hematocrit 30.9 L Hemoglobin 10.7 L Lymphocytes # 1.6 Lymphocytes % 13.1 L Magnesium Level 2.8 H Mean Corpuscular Hemoglobin 31.9 Mean Corpuscular Hemoglobin Concent 34.5 Mean Corpuscular Volume 92.2 Mean Platelet Volume 8.7 Monocytes # 1.0 H Monocytes % 8.0 Neutrophils # 9.1 H Neutrophils % 73.5 Nucleated Red Blood Cells # 0.0 Nucleated Red Blood Cells % 0.0 Phosphorus Level 13.9 H Platelet Count 293 Potassium Level 4.9 Red Blood Count 3.35 L Red Cell Distribution Width 15.4 H Sodium Level 138 Valproic Acid (Depakene) Level 25 L White Blood Count 12.4 #H Arterial Blood HCO3 18.4 L Arterial Blood Base Excess -7.2 L Arterial Blood Oxygen Saturation 94.9 L Osiel Test ACCEPTAB Arterial Blood Gas Puncture Site Right Radial Arterial Blood Carboxyhemoglobin 0.3 Arterial Blood Date Drawn 08/05/2016 7:30:09 AM Arterial Blood Methemoglobin 0.3 Arterial Blood pCO2 (Temp correct) 37.3 Arterial Blood pH (Temp corrected) 7.310 L Arterial Blood pO2 (Temp corrected) 86.3 Blood Gas A-a O2 Differential 156.0 H Blood Gas Actual Respiration Rate 22 Blood Gas Low PEEP Setting 5.0 Blood Gas Modality VENT - AC Blood Gas Notified Time 08/05/2016 7:49:56 AM Blood Gas Notified Whom JLD Blood Gas Respiration Rate 22.0 Blood Gas Specimen Source Blood arterial Blood Gas Temperature 37.0 Blood Gas Tidal Volume 600.0 FiO2 40.0 Oxyhemoglobin Percent 94.3 Total Hemoglobin 11.5 L Medications Current Medications Norepinephrine/ Dextrose (Levophed/D5W) 500 ml @ 1.87 mls/hr TITRATE IV Last administered on 07/28/16 21:18; Admin Dose 11.25 MLS/HR; Start 07/28/16 at 04: 00 Labetalol HCl (Labetalol) 10 mg Q6H PRN IV sbp > 160 Last administered on 00:15; Admin Dose 10 MG; Start 07/28/16 at 00:30 Acetaminophen (Tylenol Supp) 650 mg Q6H PRN [place] PAIN AND OR ELEVATED TEMP Last administered on 07/31/16 17:30; Admin Dose 650 MG; Start 07/28/16 at 08:30 Miscellaneous Information 1 ea NOTE XX ; Start 07/28/16 at 09:00 Glucose (Glutose) 15 gm Q15M PRN PO DECREASED GLUCOSE; Start 07/28/16 at 09:00 Glucose (Glutose) 22.5 gm Q15M PRN PO DECREASED GLUCOSE; Start 07/28/16 at 09: 00 Dextrose (D50w Syringe) 25 ml Q15M PRN IV DECREASED GLUCOSE; Start 07/28/16 at 09:00 Dextrose (D50w Syringe) 50 ml Q15M PRN IV DECREASED GLUCOSE; Start 07/28/16 at 09:00 Glucagon (Glucagen) 1 mg Q15M PRN IM DECREASED GLUCOSE; Start 07/28/16 at 09:00 Glucose (Glutose) 15 gm Q15M PRN BUCCAL DECREASED GLUCOSE; Start 07/28/16 at 09 :00 IV Flush (NS 10 ml) 10 ml PRN PRN IV IV PROTOCOL; Start 07/29/16 at 17:00 Metoprolol Tartrate (Lopressor) 25 mg BID NGT Last administered on 08/04/16 10: 02; Admin Dose 25 MG; Start 07/31/16 at 09:00 Morphine Sulfate (morphine) 2 mg Q4 PRN IV PAIN Last administered on 08/02/16 00:07; Admin Dose 2 MG; Start 07/31/16 at 12:00 Pantoprazole 40 mg 40 mg DAILY@06 IV Last administered on 08/05/16 05:21; Admin Dose 40 MG; Start 08/02/16 at 06:00 Levetiracetam 1500 mg/Sodium Chloride 115 ml @ 420 mls/hr Q12 IVPB Last administered on 08/05/16 08:18; Admin Dose 420 MLS/HR; Start 08/01/16 at 21:00 Fentanyl/Dextrose (D5W) 100 ml @ 2.5 mls/hr TITRATE IV Last administered on 06:33; Admin Dose 10 MLS/HR; Start 08/02/16 at 01:00 Lorazepam 1 mg 1 mg Q1H PRN IV SEIZURES Last administered on 08/04/16 18:42; Admin Dose 1 MG; Start 08/02/16 at 02:00 Piperacillin Sod/ Tazobactam Sod (Zosyn 2.25gm/ 50ml (Pmx)) 50 ml @ 100 mls/hr Q8 IVPB Last administered on 08/05/16 05:21; Admin Dose 100 MLS/HR; Start 08/02 at 22:00 Acetaminophen (Tylenol Liquid) 650 mg Q4H PRN NGT PAIN AND OR ELEVATED TEMP Last administered on 08/04/16 21:40; Admin Dose 650 MG; Start 08/03/16 at 00:00 Insulin Glargine (Lantus) 20 unit DAILY@08 SC Last administered on 08/05/16 08: 16; Admin Dose 20 UNIT; Start 08/03/16 at 12:00 Insulin Aspart NOVOLOG *MILD* ALGORI... Q4 SC Last administered on 08/03/16 12: 18; Admin Dose 2 UNIT; Start 08/03/16 at 13:00 Midazolam HCl 50 mg/Dextrose 50 ml @ 0 mls/hr TITRATE IV Last administered on 04:48; Admin Dose 10 MLS/HR; Start 08/03/16 at 19:00 Valproate Sodium/ Sodium Chloride (Depacon/NS) 57.5 ml @ 55 mls/hr Q6 IVPB Last administered on 08/05/16 06:35; Admin Dose 55 MLS/HR; Start 08/04/16 at 13: 00 Calcium Acetate (Phoslo) 667 mg Q6 NGT ; Start 08/05/16 at 08:30 Assessment/Plan Chief Complaint/Hosp Course IMPRESSION: 1. s/p Cardiopulmonary arrest. 2. 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 Clinical exam now consistent with probable brain 3. End-stage renal failure. Hyperkalemia with metabolic acidosis 4. No evidence of occlusive lesions on cardiac catheterization. 5. HTN heart Disease 6. Asthma RECS 1. Vent support, increase minute ventilation to offset metabolic acidosis 2. Daily assessment of mental status 3. EEG. MRI today if patient remains stable 4. Continue antiepileptics. 5. Neurology recommendations. 6. Continue hemodialysis with correction of electrolytes. 7. Discussed prognosis with family in view of high likelihood of significant anoxic encephalopathy. We'll perform apnea test. EEG concerning for probable brain . Continue current supportive care Problems: JAVED PIERCE MD, [facility] Aug 05, 2016 10:23
[2016-08-05 10:26] LABS: AADO2 Arterial 158.9 mmHg (7.0-24.0); Allen Test ACCEPTAB; Arterial Base Excess -8.4 mmol/L (-3.0-3); Arterial COHb 0.3 % (0.0-3.0); Arterial Fraction of Oxyhgb 93.3 % (93.0-99.0); Arterial HCO3 17.5 mmol/L (22.0-26.0); Arterial MetHb 0.4 % (0.0-1.5); Arterial Total Hemglobin 11.3 g/dl (12.0-18.0); MODE VENT - AC
[2016-08-05] MEDS: CALCIUM ACETATE 667 MG CAP NGT SCH ×3 (11:28→18:14)
[2016-08-05] MEDS ORDERED: MIDAZOLAM (DRIP) 50 mg/50 mL 50 ML IV SCH (13:00)
--- NOTE | 2016-08-05 13:30 | PN ---
Date/Time of Note Date/Time of Note DATE: 08/05/16 TIME: 13:26 Assessment/Plan VTE Prophylaxis VTE Prophylaxis Intervention: heparin Lines/Catheters IV C[facility]ter Type ([facility] arrow cath Assessment/Plan Chief Complaint/Hosp Course 1. PEA s/p cardiac arrest with ROSC - will admit the patient to the ICU, continue telemetry monitoring, f/u cardio recs, LHC - negative for coronary artery disease, ECHO, carotid duplex -Etiology of PEA likely 2/2 Hypoxia -CT Brain shows no CVA or signs of anoxic injury but repeat EEG is now suggesting brain -plan is for Apnea test -Neuro on the case 2. ESRD on HD - dialysis now, and prn as per nephrology 3. SIRS with elevated white count and fever- R Lung opacity noted and may be Asp PNA -cont cefepime/vanc 4. VDRF -pulm consult appreciated 5. Hypotension - cardiac shock vs septic shock - resolved 6. CHF - acute - diastolic vs systolic dysfunction - fluid to be removed via dialysis - monitor I/O's 7. Metabolic with respiratory acidosis - 2/2 to cardiac arrest - s/p bicarb- resolved 8. Hx of hypertension - hold medications as patient is hypotensive 9. Type II DM-A1C at 7.3 -cont Lantus, NISS 10. Asthma - currently on vent, continue with breathing treatments 11. Smoking abuse - patient was to be counseled on cessation if extubated and alert 12. Obesity - consider nutrition consult once extubated 13. GI ppx - protonix 14. DVT ppx - heparin Problems: Subjective 24 Hr Interval Summary Subjective hx not possible: pt non-verbal Exam/Review of Systems Vital Signs Vitals Vital Signs Date Time Temp Pulse Resp B/P Pulse Ox O2 Delivery O2 Flow Rate FiO2 08/05/16 13:15 99 08/05/16 12:00 98.3 24 128/69 97 Mechanical Ventilator 08/05/16 05:21 40 Intake and Output 08/04/16 08/04/16 08/05/16 15:00 23:00 07:00 Intake Total 705 ml 1322.5 ml 727.5 ml Output Total 25 ml 1800 ml 30 ml Balance 680 ml -477.5 ml 697.5 ml Exam Constitutional: non-verbal ENMT: intubated Respiratory: clear to auscultation Cardiovascular: regular rate and rhythm Gastrointestinal: soft, No distended Musculoskeletal: nl extremities to inspection Results Result Diagram: 08/05/16 0530 08/05/16 0530 Results 24 hrs Laboratory Tests Test 08/04/16 17:29 08/04/16 21:29 08/05/16 00:00 08/05/16 05:02 Bedside Glucose 134 116 104 114 Test 08/05/16 05:30 08/05/16 07:00 08/05/16 08:13 08/05/16 10:06 Anion Gap 31 H Basophils # 0.0 Basophils % 0.4 Blood Morphology Comment Blood Urea Nitrogen 101 H Calcium Level 6.8 L Carbon Dioxide Level 19 L Chloride Level 93 L Creatinine 10.38 H Eosinophils # 0.6 H Eosinophils % 5.0 Glucose Level 101 Hematocrit 30.9 L Hemoglobin 10.7 L Lymphocytes # 1.6 Lymphocytes % 13.1 L Magnesium Level 2.8 H Mean Corpuscular Hemoglobin 31.9 Mean Corpuscular Hemoglobin Concent 34.5 Mean Corpuscular Volume 92.2 Mean Platelet Volume 8.7 Monocytes # 1.0 H Monocytes % 8.0 Neutrophils # 9.1 H Neutrophils % 73.5 Nucleated Red Blood Cells # 0.0 Nucleated Red Blood Cells % 0.0 Phosphorus Level 13.9 H Platelet Count 293 Potassium Level 4.9 Red Blood Count 3.35 L Red Cell Distribution Width 15.4 H Sodium Level 138 Valproic Acid (Depakene) Level 25 L White Blood Count 12.4 #H Arterial Blood HCO3 18.4 L 17.5 L Arterial Blood Base Excess -7.2 L -8.4 L Arterial Blood Oxygen Saturation 94.9 L 94.0 L Osiel Test ACCEPTAB ACCEPTAB Arterial Blood Gas Puncture Site Right Radial Right Radial Arterial Blood Carboxyhemoglobin 0.3 0.3 Arterial Blood Date Drawn 08/05/2016 7:30:09 AM 08/05/2016 10:10:15 AM Arterial Blood Methemoglobin 0.3 0.4 Arterial Blood pCO2 (Temp correct) 37.3 37.4 Arterial Blood pH (Temp corrected) 7.310 L 7.288 *L Arterial Blood pO2 (Temp corrected) 86.3 83.3 Blood Gas A-a O2 Differential 156.0 H 158.9 H Blood Gas Actual Respiration Rate 22 22 Blood Gas Low PEEP Setting 5.0 5.0 Blood Gas Modality VENT - AC VENT - AC Blood Gas Notified Time 08/05/2016 7:49:56 AM 08/05/2016 10:25:15 AM Blood Gas Notified Whom JLD JLD Blood Gas Respiration Rate 22.0 22.0 Blood Gas Specimen Source Blood arterial Blood arterial Blood Gas Temperature 37.0 37.0 Blood Gas Tidal Volume 600.0 600.0 FiO2 40.0 40.0 Oxyhemoglobin Percent 94.3 93.3 Total Hemoglobin 11.5 L 11.3 L Bedside Glucose 103 Blood Gas Critical Value Read Back M HUANG RN Medications Medications Current Medications Norepinephrine/ Dextrose (Levophed/D5W) 500 ml @ 1.87 mls/hr TITRATE IV Last administered on 07/28/16 21:18; Admin Dose 11.25 MLS/HR; Start 07/28/16 at 04: 00 Labetalol HCl (Labetalol) 10 mg Q6H PRN IV sbp > 160 Last administered on 00:15; Admin Dose 10 MG; Start 07/28/16 at 00:30 Acetaminophen (Tylenol Supp) 650 mg Q6H PRN [place] PAIN AND OR ELEVATED TEMP Last administered on 07/31/16 17:30; Admin Dose 650 MG; Start 07/28/16 at 08:30 Miscellaneous Information 1 ea NOTE XX ; Start 07/28/16 at 09:00 Glucose (Glutose) 15 gm Q15M PRN PO DECREASED GLUCOSE; Start 07/28/16 at 09:00 Glucose (Glutose) 22.5 gm Q15M PRN PO DECREASED GLUCOSE; Start 07/28/16 at 09: 00 Dextrose (D50w Syringe) 25 ml Q15M PRN IV DECREASED GLUCOSE; Start 07/28/16 at 09:00 Dextrose (D50w Syringe) 50 ml Q15M PRN IV DECREASED GLUCOSE; Start 07/28/16 at 09:00 Glucagon (Glucagen) 1 mg Q15M PRN IM DECREASED GLUCOSE; Start 07/28/16 at 09:00 Glucose (Glutose) 15 gm Q15M PRN BUCCAL DECREASED GLUCOSE; Start 07/28/16 at 09 :00 IV Flush (NS 10 ml) 10 ml PRN PRN IV IV PROTOCOL; Start 07/29/16 at 17:00 Metoprolol Tartrate (Lopressor) 25 mg BID NGT Last administered on 08/04/16 10: 02; Admin Dose 25 MG; Start 07/31/16 at 09:00 Morphine Sulfate (morphine) 2 mg Q4 PRN IV PAIN Last administered on 08/02/16 00:07; Admin Dose 2 MG; Start 07/31/16 at 12:00 Pantoprazole 40 mg 40 mg DAILY@06 IV Last administered on 08/05/16 05:21; Admin Dose 40 MG; Start 08/02/16 at 06:00 Levetiracetam 1500 mg/Sodium Chloride 115 ml @ 420 mls/hr Q12 IVPB Last administered on 08/05/16 08:18; Admin Dose 420 MLS/HR; Start 08/01/16 at 21:00 Fentanyl/Dextrose (D5W) 100 ml @ 2.5 mls/hr TITRATE IV Last administered on 06:33; Admin Dose 10 MLS/HR; Start 08/02/16 at 01:00; Stop 08/05/16 at 17: 00 Lorazepam 1 mg 1 mg Q1H PRN IV SEIZURES Last administered on 08/04/16 18:42; Admin Dose 1 MG; Start 08/02/16 at 02:00 Piperacillin Sod/ Tazobactam Sod (Zosyn 2.25gm/ 50ml (Pmx)) 50 ml @ 100 mls/hr Q8 IVPB Last administered on 08/05/16 05:21; Admin Dose 100 MLS/HR; Start 08/02 at 22:00 Acetaminophen (Tylenol Liquid) 650 mg Q4H PRN NGT PAIN AND OR ELEVATED TEMP Last administered on 08/04/16 21:40; Admin Dose 650 MG; Start 08/03/16 at 00:00 Insulin Glargine (Lantus) 20 unit DAILY@08 SC Last administered on 08/05/16 08: 16; Admin Dose 20 UNIT; Start 08/03/16 at 12:00 Insulin Aspart NOVOLOG *MILD* ALGORI... Q4 SC Last administered on 08/03/16 12: 18; Admin Dose 2 UNIT; Start 08/03/16 at 13:00 Midazolam HCl 50 mg/Dextrose 50 ml @ 0 mls/hr TITRATE IV Last administered on 04:48; Admin Dose 10 MLS/HR; Start 08/03/16 at 19:00; Stop 08/05/16 at 14: 00 Valproate Sodium/ Sodium Chloride (Depacon/NS) 57.5 ml @ 55 mls/hr Q6 IVPB Last administered on 08/05/16 06:35; Admin Dose 55 MLS/HR; Start 08/04/16 at 13: 00 Calcium Acetate 667 mg 667 mg Q6 NGT Last administered on 08/05/16 11:28; Admin Dose 667 MG; Start 08/05/16 at 08:30 Midazolam HCl 50 ml @ 0 mls/hr TITRATE IV ; Start 08/05/16 at 13:00 Fentanyl (Sublimaze) 100 ml @ 2.5 mls/hr TITRATE IV ; Start 08/05/16 at 16:00 Miscellaneous Information (*Rx Drug Level Order Reminder*) 1 ONCE ONCE XX ; Start 08/06/16 at 05:00; Stop 08/06/16 at 05:01 BARNEY MCKEE Aug 05, 2016 13:30
[2016-08-05 15:02] LABS: AADO2 Arterial 159.6 mmHg (7.0-24.0); Allen Test ACCEPTAB; Arterial Base Excess -2.7 mmol/L (-3.0-3); Arterial COHb 0.3 % (0.0-3.0); Arterial Fraction of Oxyhgb 95.2 % (93.0-99.0); Arterial HCO3 21.1 mmol/L (22.0-26.0); Arterial MetHb 0.2 % (0.0-1.5); Arterial Total Hemglobin 12.6 g/dl (12.0-18.0); MODE VENT - AC
[2016-08-05] MEDS ORDERED: FENTAnyl (DRIP) 1000 mcg/100mL 100 ML IV SCH (16:00)
[2016-08-05 16:37] LABS: AADO2 Arterial 202.7 mmHg (7.0-24.0); Allen Test ACCEPTAB; Arterial Base Excess -5.3 mmol/L (-3.0-3); Arterial COHb 0.3 % (0.0-3.0); Arterial Fraction of Oxyhgb 98.7 % (93.0-99.0); Arterial HCO3 20.6 mmol/L (22.0-26.0); Arterial MetHb 0.5 % (0.0-1.5); Arterial Total Hemglobin 12.1 g/dl (12.0-18.0); MODE VENT - AC
--- NOTE | 2016-08-05 20:07 | CONS ---
Date/Time of Note Date/Time of Note DATE: 08/05/16 TIME: 20:05 Assessment/Plan Assessment/Plan Chief Complaint/Hosp Course Assessment: Status post cardiac arrest - suspect secondary to hypoxia Anoxic brain injury - possible brain Seizures End-stage renal disease - on hemodialysis Recommendations: -coronary angiography without significant coronary artery disease -echocardiogram showed LVEF 60% -follow up neurology recommendations, planned for apnea test Problems: Consultation Date/Type/Reason Admit Date/Time Jul 27, 2016 at 23:29 Initial Consult Date 07/28/16 Type of Consultation: Cardiology 24 HR Interval Summary Free Text/Dictation No significant clinical changes. Detailed Summary Additional Comments Unable to obtain review of systems due to patient's mental status. Exam/Review of Systems Vital Signs Vitals Vital Signs Date Time Temp Pulse Resp B/P Pulse Ox O2 Delivery O2 Flow Rate FiO2 08/05/16 19:17 97 20 99 40 08/05/16 19:00 128/75 08/05/16 18:00 Mechanical Ventilator 08/05/16 16:51 8.0 08/05/16 16:00 98.3 Intake and Output 08/04/16 08/04/16 08/05/16 15:00 23:00 07:00 Intake Total 705 ml 1322.5 ml 727.5 ml Output Total 25 ml 1800 ml 30 ml Balance 680 ml -477.5 ml 697.5 ml Exam Constitutional: No alert Head: atraumatic, normocephalic ENMT: intubated Neck: No jvd (unable to assess) Respiratory: crackles/rales, diminished breath sounds Cardiovascular: edema (1+), regular rate and rhythm, No systolic murmur Gastrointestinal: non-tender, soft, No distended Extremities: No normal pulses (diminished ) Neurological: No nl mental status, No nl speech Results Result Diagram: 08/05/16 0530 08/05/16 0530 Results 24 hrs Laboratory Tests Test 08/04/16 21:29 08/05/16 00:00 08/05/16 05:02 08/05/16 05:30 Bedside Glucose 116 104 114 Anion Gap 31 H Basophils # 0.0 Basophils % 0.4 Blood Morphology Comment Blood Urea Nitrogen 101 H Calcium Level 6.8 L Carbon Dioxide Level 19 L Chloride Level 93 L Creatinine 10.38 H Eosinophils # 0.6 H Eosinophils % 5.0 Glucose Level 101 Hematocrit 30.9 L Hemoglobin 10.7 L Lymphocytes # 1.6 Lymphocytes % 13.1 L Magnesium Level 2.8 H Mean Corpuscular Hemoglobin 31.9 Mean Corpuscular Hemoglobin Concent 34.5 Mean Corpuscular Volume 92.2 Mean Platelet Volume 8.7 Monocytes # 1.0 H Monocytes % 8.0 Neutrophils # 9.1 H Neutrophils % 73.5 Nucleated Red Blood Cells # 0.0 Nucleated Red Blood Cells % 0.0 Phosphorus Level 13.9 H Platelet Count 293 Potassium Level 4.9 Prealbumin 45.9 H Red Blood Count 3.35 L Red Cell Distribution Width 15.4 H Sodium Level 138 Valproic Acid (Depakene) Level 25 L White Blood Count 12.4 #H Test 08/05/16 07:00 08/05/16 08:13 08/05/16 10:06 08/05/16 11:30 Arterial Blood HCO3 18.4 L 17.5 L 21.1 L Arterial Blood Base Excess -7.2 L -8.4 L -2.7 Arterial Blood Oxygen Saturation 94.9 L 94.0 L 95.7 Osiel Test ACCEPTAB ACCEPTAB ACCEPTAB Arterial Blood Gas Puncture Site Right Radial Right Radial Right Radial Arterial Blood Carboxyhemoglobin 0.3 0.3 0.3 Arterial Blood Date Drawn 08/05/2016 7:30:09 AM 08/05/2016 10:10:15 AM 08/05/2016 2:50:32 PM Arterial Blood Methemoglobin 0.3 0.4 0.2 Arterial Blood pCO2 (Temp correct) 37.3 37.4 33.4 L Arterial Blood pH (Temp corrected) 7.310 L 7.288 *L 7.418 Arterial Blood pO2 (Temp corrected) 86.3 83.3 87.2 Blood Gas A-a O2 Differential 156.0 H 158.9 H 159.6 H Blood Gas Actual Respiration Rate 22 22 24 Blood Gas Low PEEP Setting 5.0 5.0 5.0 Blood Gas Modality VENT - AC VENT - AC VENT - AC Blood Gas Notified Time 08/05/2016 7:49:56 AM 08/05/2016 10:25:15 AM 08/05/2016 3:02:09 PM Blood Gas Notified Whom MITCH MEYER Blood Gas Respiration Rate 22.0 22.0 24.0 Blood Gas Specimen Source Blood arterial Blood arterial Blood arterial Blood Gas Temperature 37.0 37.0 37.0 Blood Gas Tidal Volume 600.0 600.0 650.0 FiO2 40.0 40.0 40.0 Oxyhemoglobin Percent 94.3 93.3 95.2 Total Hemoglobin 11.5 L 11.3 L 12.6 Bedside Glucose 103 Blood Gas Critical Value Read Back M HUANG RN Test 08/05/16 16:00 08/05/16 17:48 Arterial Blood HCO3 20.6 L Arterial Blood Base Excess -5.3 L Arterial Blood Oxygen Saturation 99.5 H Osiel Test ACCEPTAB Arterial Blood Gas Puncture Site Right Radial Arterial Blood Carboxyhemoglobin 0.3 Arterial Blood Date Drawn 08/05/2016 4:18:12 PM Arterial Blood Methemoglobin 0.5 Arterial Blood pCO2 (Temp correct) 41.2 Arterial Blood pH (Temp corrected) 7.316 L Arterial Blood pO2 (Temp corrected) 469.1 H Blood Gas A-a O2 Differential 202.7 H Blood Gas Actual Respiration Rate 16 Blood Gas Low PEEP Setting 5.0 Blood Gas Modality VENT - AC Blood Gas Notified Time 08/05/2016 4:37:13 PM Blood Gas Notified Whom CORRIE DE LEÓN Blood Gas Respiration Rate 16.0 Blood Gas Specimen Source Blood arterial Blood Gas Temperature 37.0 Blood Gas Tidal Volume 650.0 FiO2 100.0 Oxyhemoglobin Percent 98.7 Total Hemoglobin 12.1 Bedside Glucose 138 Medications Medications Current Medications Norepinephrine/ Dextrose (Levophed/D5W) 500 ml @ 1.87 mls/hr TITRATE IV Last administered on 07/28/16 21:18; Admin Dose 11.25 MLS/HR; Start 07/28/16 at 04: 00 Labetalol HCl (Labetalol) 10 mg Q6H PRN IV sbp > 160 Last administered on 00:15; Admin Dose 10 MG; Start 07/28/16 at 00:30 Acetaminophen (Tylenol Supp) 650 mg Q6H PRN [place] PAIN AND OR ELEVATED TEMP Last administered on 07/31/16 17:30; Admin Dose 650 MG; Start 07/28/16 at 08:30 Miscellaneous Information 1 ea NOTE XX ; Start 07/28/16 at 09:00 Glucose (Glutose) 15 gm Q15M PRN PO DECREASED GLUCOSE; Start 07/28/16 at 09:00 Glucose (Glutose) 22.5 gm Q15M PRN PO DECREASED GLUCOSE; Start 07/28/16 at 09: 00 Dextrose (D50w Syringe) 25 ml Q15M PRN IV DECREASED GLUCOSE; Start 07/28/16 at 09:00 Dextrose (D50w Syringe) 50 ml Q15M PRN IV DECREASED GLUCOSE; Start 07/28/16 at 09:00 Glucagon (Glucagen) 1 mg Q15M PRN IM DECREASED GLUCOSE; Start 07/28/16 at 09:00 Glucose (Glutose) 15 gm Q15M PRN BUCCAL DECREASED GLUCOSE; Start 07/28/16 at 09 :00 IV Flush (NS 10 ml) 10 ml PRN PRN IV IV PROTOCOL; Start 07/29/16 at 17:00 Metoprolol Tartrate (Lopressor) 25 mg BID NGT Last administered on 08/04/16 10: 02; Admin Dose 25 MG; Start 07/31/16 at 09:00 Morphine Sulfate (morphine) 2 mg Q4 PRN IV PAIN Last administered on 08/02/16 00:07; Admin Dose 2 MG; Start 07/31/16 at 12:00 Pantoprazole 40 mg 40 mg DAILY@06 IV Last administered on 08/05/16 05:21; Admin Dose 40 MG; Start 08/02/16 at 06:00 Levetiracetam/ Sodium Chloride (Keppra Iv/NS) 115 ml @ 420 mls/hr Q12 IVPB Last administered on 08/05/16 08:18; Admin Dose 420 MLS/HR; Start 08/01/16 at 21 :00 Lorazepam 1 mg 1 mg Q1H PRN IV SEIZURES Last administered on 08/04/16 18:42; Admin Dose 1 MG; Start 08/02/16 at 02:00 Piperacillin Sod/ Tazobactam Sod (Zosyn 2.25gm/ 50ml (Pmx)) 50 ml @ 100 mls/hr Q8 IVPB Last administered on 08/05/16 17:00; Admin Dose 100 MLS/HR; Start 08/02 at 22:00 Acetaminophen (Tylenol Liquid) 650 mg Q4H PRN NGT PAIN AND OR ELEVATED TEMP Last administered on 08/04/16 21:40; Admin Dose 650 MG; Start 08/03/16 at 00:00 Insulin Glargine (Lantus) 20 unit DAILY@08 SC Last administered on 08/05/16 08: 16; Admin Dose 20 UNIT; Start 08/03/16 at 12:00 Insulin Aspart NOVOLOG *MILD* ALGORI... Q4 SC Last administered on 08/03/16 12: 18; Admin Dose 2 UNIT; Start 08/03/16 at 13:00 Valproate Sodium/ Sodium Chloride (Depacon/NS) 57.5 ml @ 55 mls/hr Q6 IVPB Last administered on 08/05/16 18:15; Admin Dose 55 MLS/HR; Start 08/04/16 at 13: 00 Calcium Acetate 667 mg 667 mg Q6 NGT Last administered on 08/05/16 18:14; Admin Dose 667 MG; Start 08/05/16 at 08:30 Midazolam HCl 50 ml @ 0 mls/hr TITRATE IV ; Start 08/05/16 at 13:00 Fentanyl (Sublimaze) 100 ml @ 2.5 mls/hr TITRATE IV ; Start 08/05/16 at 16:00 Miscellaneous Information (*Rx Drug Level Order Reminder*) 1 ONCE ONCE XX ; Start 08/06/16 at 05:00; Stop 08/06/16 at 05:01 TAYLOR WHITNEY MD Aug 05, 2016 20:07
[2016-08-05] MEDS: LABETALOL HCL 20MG INJ IV PRN (20:44)
[2016-08-05] MEDS: LORAZEPAM 2 MG INJ IV PRN (21:59)
[2016-08-05] MEDS ORDERED: ALTEPLASE (CATHFLO) 2 MG INJ CATHETER PRN (22:00)
[2016-08-06] VITALS (67 sets, daily range): BP systolic 108–221; BP diastolic 52–140; PULSE 84–103; RESP 16–27
[2016-08-06] MEDS: VALPROATE INJ 750 MG in SOD CHLORIDE 0.9% 50 ML IVPB SCH ×4 (00:23→18:10)
[2016-08-06] MEDS: INSULIN ASPART [NOVOLOG] 3 ML PEN SC SCH ×6 (00:24→20:17)
[2016-08-06] MEDS: CALCIUM ACETATE 667 MG CAP NGT SCH ×4 (00:37→18:10)
[2016-08-06] MEDS: ALBUTEROL HFA 8 GM INHALER INH SCH ×6 (01:16→20:48)
[2016-08-06] MEDS: IPRATROPIUM (HFA) 12.9 GM INHALER INH SCH ×6 (01:16→20:48)
[2016-08-06] MEDS: hydrALAzine 20 MG INJ IV PRN ×3 (01:22→11:16)
[2016-08-06] MEDS: LABETALOL HCL 20MG INJ IV PRN ×2 (03:52→14:53)
[2016-08-06] MEDS: PIPER-TAZO 2.25 GM (PMX) 50 ML IVPB SCH ×3 (05:06→22:20)
[2016-08-06] MEDS: PANTOPRAZOLE 40 MG INJ IV SCH (05:06)
[2016-08-06 06:20] LABS: ALBUMIN 3.7 g/dl (3.3-4.9)
[2016-08-06 06:23] LABS: ALBUMIN/GLOBULIN RATIO 0.9; TOTAL PROTEIN 7.8 g/dl (6.1-8.1)
[2016-08-06 06:24] LABS: CALCIUM 7.7 mg/dl (8.4-10.2); MAGNESIUM 2.9 mg/dl (1.7-2.5); PHOSPHORUS 11.6 mg/dl (2.5-4.9)
[2016-08-06 06:31] LABS: CREATININE 8.97 mg/dl (0.61-1.24)
[2016-08-06 06:42] LABS: HEMATOCRIT 32.7 % (42.0-52.0); HEMOGLOBIN 10.8 g/dl (14.0-18.0); LYMPHOCYTES % 10.4 % (15.0-51.0); MEAN CORPUSCULAR HEMOGLOBIN 30.9 pg (29.0-33.0); MEAN CORPUSCULAR VOLUME 93.7 fl (82.0-101.0); MEAN PLATELET VOLUME 10.6 fl (7.4-10.4); MONOCYTES % 8.7 % (0.0-11.0); NEUTROPHILS % 72.1 % (39.0-77.0); PLATELET COUNT 374 10^3/UL (140-440); RED BLOOD COUNT 3.49 10^6/ul (4.70-6.10); RED CELL DISTRIBUTION WIDTH 14.8 % (11.5-14.5); WHITE BLOOD COUNT 14.2 10^3/ul (4.8-10.8)
[2016-08-06 06:43] LABS: BASOPHIL # 0.1 10^3/ul (0.0-0.1); BASOPHILS % 0.4 % (0.0-2.0); EOSINOPHILS # 0.6 10^3/ul (0.0-0.5); EOSINOPHILS % 4.2 % (0.0-7.0); LYMPHOCYTES # 1.5 10^3/ul (0.8-2.9); MONOCYTE # 1.2 10^3/ul (0.3-0.9); NEUTROPHIL # 10.2 10^3/ul (1.6-7.5)
--- NOTE | 2016-08-06 08:34 | CONS ---
Date/Time of Note Date/Time of Note DATE: 08/06/16 TIME: 08:31 Assessment/Plan Assessment/Plan Problems: (1) ESRD (end stage renal disease) on dialysis Comment: for planned HD today... catheter issues noted... nurse working on it now... will need to call Vac Surg if not working (2) Cardiac arrest Status: Acute (3) Anoxic encephalopathy Status: Acute Comment: non responsive.. neuro on case Consultation Date/Type/Reason Admit Date/Time Jul 27, 2016 at 23:29 Initial Consult Date 07/28/16 Type of Consultation: neph 24 HR Interval Summary Free Text/Dictation pt non responsive on the vent... to attempt HD this am via Rt fem catheter Exam/Review of Systems Vital Signs Vitals Vital Signs Date Time Temp Pulse Resp B/P Pulse Ox O2 Delivery O2 Flow Rate FiO2 08/06/16 07:15 98 18 187/78 100 08/06/16 07:00 Mechanical Ventilator 08/06/16 05:28 40 08/06/16 04:00 99.2 08/05/16 16:51 8.0 Intake and Output 08/05/16 08/05/16 08/06/16 15:00 23:00 07:00 Intake Total 855 ml 860 ml 371.25 ml Output Total 5500 ml Balance -4645 ml 860 ml 371.25 ml Exam Constitutional: non-verbal Respiratory: clear to auscultation Cardiovascular: regular rate and rhythm (Rt fem dialysis catheter) Results Result Diagram: 08/06/16 0500 08/06/16 0500 Results 24 hrs Laboratory Tests Test 08/05/16 10:06 08/05/16 11:30 08/05/16 16:00 08/05/16 17:48 Arterial Blood HCO3 17.5 L 21.1 L 20.6 L Arterial Blood Base Excess -8.4 L -2.7 -5.3 L Arterial Blood Oxygen Saturation 94.0 L 95.7 99.5 H Osiel Test ACCEPTAB ACCEPTAB ACCEPTAB Arterial Blood Gas Puncture Site Right Radial Right Radial Right Radial Arterial Blood Carboxyhemoglobin 0.3 0.3 0.3 Arterial Blood Date Drawn 08/05/2016 10:10:15 AM 08/05/2016 2:50:32 PM 08/05/2016 4:18:12 PM Arterial Blood Methemoglobin 0.4 0.2 0.5 Arterial Blood pCO2 (Temp correct) 37.4 33.4 L 41.2 Arterial Blood pH (Temp corrected) 7.288 *L 7.418 7.316 L Arterial Blood pO2 (Temp corrected) 83.3 87.2 469.1 H Blood Gas A-a O2 Differential 158.9 H 159.6 H 202.7 H Blood Gas Actual Respiration Rate 22 24 16 Blood Gas Critical Value Read Back M HUANG RN Blood Gas Low PEEP Setting 5.0 5.0 5.0 Blood Gas Modality VENT - AC VENT - AC VENT - AC Blood Gas Notified Time 08/05/2016 10:25:15 AM 08/05/2016 3:02:09 PM 08/05/2016 4:37:13 PM Blood Gas Notified Whom MITCH DENTON RT Blood Gas Respiration Rate 22.0 24.0 16.0 Blood Gas Specimen Source Blood arterial Blood arterial Blood arterial Blood Gas Temperature 37.0 37.0 37.0 Blood Gas Tidal Volume 600.0 650.0 650.0 FiO2 40.0 40.0 100.0 Oxyhemoglobin Percent 93.3 95.2 98.7 Total Hemoglobin 11.3 L 12.6 12.1 Bedside Glucose 138 Test 08/05/16 20:56 08/06/16 00:23 08/06/16 05:00 08/06/16 05:10 Bedside Glucose 183 132 147 Alanine Aminotransferase (ALT/SGPT) 117 H Albumin 3.7 Albumin/Globulin Ratio 0.90 Alkaline Phosphatase 208 #H Anion Gap 29 H Aspartate Amino Transf (AST/SGOT) 87 H Basophils # 0.1 Basophils % 0.4 Blood Urea Nitrogen 89 H Calcium Level 7.7 L Carbon Dioxide Level 22 Chloride Level 96 L Creatinine 8.97 H Direct Bilirubin 0.00 Eosinophils # 0.6 H Eosinophils % 4.2 Globulin 4.10 H Glucose Level 147 # Hematocrit 32.7 L Hemoglobin 10.8 L Indirect Bilirubin 0.0 Lymphocytes # 1.5 Lymphocytes % 10.4 L Magnesium Level 2.9 H Mean Corpuscular Hemoglobin 30.9 Mean Corpuscular Hemoglobin Concent 33.0 Mean Corpuscular Volume 93.7 Mean Platelet Volume 10.6 #H Monocytes # 1.2 H Monocytes % 8.7 Neutrophils # 10.2 H Neutrophils % 72.1 Nucleated Red Blood Cells # 0.0 Nucleated Red Blood Cells % 0.0 Phosphorus Level 11.6 #H Platelet Count 374 # Potassium Level 5.0 Random Vancomycin Level 15.1 Red Blood Count 3.49 L Red Cell Distribution Width 14.8 H Sodium Level 142 Total Bilirubin 0.0 L Total Protein 7.8 White Blood Count 14.2 H Medications Medications Current Medications Norepinephrine/ Dextrose (Levophed/D5W) 500 ml @ 1.87 mls/hr TITRATE IV Last administered on 07/28/16 21:18; Admin Dose 11.25 MLS/HR; Start 07/28/16 at 04: 00 Labetalol HCl (Labetalol) 10 mg Q6H PRN IV sbp > 160 Last administered on 03:52; Admin Dose 10 MG; Start 07/28/16 at 00:30 Acetaminophen (Tylenol Supp) 650 mg Q6H PRN [place] PAIN AND OR ELEVATED TEMP Last administered on 07/31/16 17:30; Admin Dose 650 MG; Start 07/28/16 at 08:30 Miscellaneous Information 1 ea NOTE XX ; Start 07/28/16 at 09:00 Glucose (Glutose) 15 gm Q15M PRN PO DECREASED GLUCOSE; Start 07/28/16 at 09:00 Glucose (Glutose) 22.5 gm Q15M PRN PO DECREASED GLUCOSE; Start 07/28/16 at 09: 00 Dextrose (D50w Syringe) 25 ml Q15M PRN IV DECREASED GLUCOSE; Start 07/28/16 at 09:00 Dextrose (D50w Syringe) 50 ml Q15M PRN IV DECREASED GLUCOSE; Start 07/28/16 at 09:00 Glucagon (Glucagen) 1 mg Q15M PRN IM DECREASED GLUCOSE; Start 07/28/16 at 09:00 Glucose (Glutose) 15 gm Q15M PRN BUCCAL DECREASED GLUCOSE; Start 07/28/16 at 09 :00 IV Flush (NS 10 ml) 10 ml PRN PRN IV IV PROTOCOL; Start 07/29/16 at 17:00 Metoprolol Tartrate (Lopressor) 25 mg BID NGT Last administered on 08/05/16 20: 29; Admin Dose 25 MG; Start 07/31/16 at 09:00 Morphine Sulfate (morphine) 2 mg Q4 PRN IV PAIN Last administered on 08/02/16 00:07; Admin Dose 2 MG; Start 07/31/16 at 12:00 Pantoprazole 40 mg 40 mg DAILY@06 IV Last administered on 08/06/16 05:06; Admin Dose 40 MG; Start 08/02/16 at 06:00 Levetiracetam/ Sodium Chloride (Keppra Iv/NS) 115 ml @ 420 mls/hr Q12 IVPB Last administered on 08/05/16 20:28; Admin Dose 420 MLS/HR; Start 08/01/16 at 21 :00 Lorazepam 1 mg 1 mg Q1H PRN IV SEIZURES Last administered on 08/05/16 21:59; Admin Dose 1 MG; Start 08/02/16 at 02:00 Piperacillin Sod/ Tazobactam Sod (Zosyn 2.25gm/ 50ml (Pmx)) 50 ml @ 100 mls/hr Q8 IVPB Last administered on 08/06/16 05:06; Admin Dose 100 MLS/HR; Start 08/02 at 22:00 Acetaminophen (Tylenol Liquid) 650 mg Q4H PRN NGT PAIN AND OR ELEVATED TEMP Last administered on 08/04/16 21:40; Admin Dose 650 MG; Start 08/03/16 at 00:00 Insulin Glargine (Lantus) 20 unit DAILY@08 SC Last administered on 08/05/16 08: 16; Admin Dose 20 UNIT; Start 08/03/16 at 12:00 Insulin Aspart NOVOLOG *MILD* ALGORI... Q4 SC Last administered on 08/06/16 05: 16; Admin Dose 1 UNIT; Start 08/03/16 at 13:00 Valproate Sodium/ Sodium Chloride (Depacon/NS) 57.5 ml @ 55 mls/hr Q6 IVPB Last administered on 08/06/16 07:03; Admin Dose 55 MLS/HR; Start 08/04/16 at 13: 00 Calcium Acetate 667 mg 667 mg Q6 NGT Last administered on 08/06/16 05:12; Admin Dose 667 MG; Start 08/05/16 at 08:30 Midazolam HCl 50 ml @ 0 mls/hr TITRATE IV Last administered on 08/05/16 22:38; Admin Dose 3 MLS/HR; Start 08/05/16 at 13:00 Fentanyl (Sublimaze) 100 ml @ 2.5 mls/hr TITRATE IV Last administered on 22:39; Admin Dose 10 MLS/HR; Start 08/05/16 at 16:00 Hydralazine HCl (Apresoline) 10 mg Q4H PRN IV ELEVATED SYSTOLIC BP Last administered on 08/06/16 05:20; Admin Dose 10 MG; Start 08/06/16 at 01:30 CAROLINE DEL CID MD Aug 06, 2016 08:34
[2016-08-06] MEDS: BUDESONIDE (NEB) 0.5MG/2ML AMP HHN SCH ×2 (08:45→19:50)
--- NOTE | 2016-08-06 08:47 | PN ---
Date/Time of Note Date/Time of Note DATE: 08/06/16 TIME: 08:41 Assessment/Plan VTE Prophylaxis VTE Prophylaxis Intervention: SCD's Lines/Catheters IV Catheter Type (from [facility]): [facility] cath Urinary Cath still in place: No Assessment/Plan Problems: (1) Respiratory arrest before cardiac arrest Status: Acute Comment: This patient presented with acute respiratory failure. This led to a PEA cardiac arrest. He was resuscitated in the field and brought to the hospital. At this point after the acute event given the EEG findings and the apnea test he has significant anoxic brain injury with a long-term vegetative state. Likelihood of meaningful recovery is nil. This is being discussed with the family who is having some difficulties accepting this due to some personal senses of guilt which is misplaced. Will continue trying to be supportive but given the circumstances we may end up being forced to perform a tracheostomy for placement purposes. This will also require a PEG tube. 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 (3) History of tobacco abuse Status: Chronic Comment: Noted (4) Morbid obesity Status: Chronic Comment: Noted Qualifiers: Obesity type: due to excess calories Qualified Code: E66.01 - Morbid obesity due to excess calories (5) Anoxic encephalopathy Status: Acute Comment: This is a significant issue and again likelihood of meaningful recovery is nil. Given the family's determination to proceed forward and that he does not have a failed apnea test we are again going to be in the position of having to place a feeding tube/PEG and tracheostomy for ultimate long-term placement. (6) Type 2 diabetes mellitus with hypertension and end stage renal disease on dialysis Status: Chronic Comment: His diabetic control is adequate on the current regimen and he is receiving hemodialysis by our colleagues in nephrology Subjective 24 Hr Interval Summary Free Text/Dictation Please see EEG reports and apnea test. Subjective hx not possible: pt non-verbal Exam/Review of Systems Vital Signs Vitals Vital Signs Date Time Temp Pulse Resp B/P Pulse Ox O2 Delivery O2 Flow Rate FiO2 08/06/16 07:15 98 18 187/78 100 08/06/16 07:00 Mechanical Ventilator 08/06/16 05:28 40 08/06/16 04:00 99.2 08/05/16 16:51 8.0 Intake and Output 08/05/16 08/05/16 08/06/16 15:00 23:00 07:00 Intake Total 855 ml 860 ml 371.25 ml Output Total 5500 ml Balance -4645 ml 860 ml 371.25 ml Exam Nonresponsive to all stimuli including forcibly opening the eyes Constitutional: non-verbal Neck: non-tender, supple Respiratory: clear to auscultation, normal air movement Cardiovascular: nl pulses, regular rate and rhythm Gastrointestinal: nl liver, spleen, non-tender, soft Skin: nl turgor, rash or lesions Results Result Diagram: 08/06/16 0500 08/06/16 0500 Results 24 hrs Laboratory Tests Test 08/05/16 10:06 08/05/16 11:30 08/05/16 16:00 08/05/16 17:48 Arterial Blood HCO3 17.5 L 21.1 L 20.6 L Arterial Blood Base Excess -8.4 L -2.7 -5.3 L Arterial Blood Oxygen Saturation 94.0 L 95.7 99.5 H Osiel Test ACCEPTAB ACCEPTAB ACCEPTAB Arterial Blood Gas Puncture Site Right Radial Right Radial Right Radial Arterial Blood Carboxyhemoglobin 0.3 0.3 0.3 Arterial Blood Date Drawn 08/05/2016 10:10:15 AM 08/05/2016 2:50:32 PM 08/05/2016 4:18:12 PM Arterial Blood Methemoglobin 0.4 0.2 0.5 Arterial Blood pCO2 (Temp correct) 37.4 33.4 L 41.2 Arterial Blood pH (Temp corrected) 7.288 *L 7.418 7.316 L Arterial Blood pO2 (Temp corrected) 83.3 87.2 469.1 H Blood Gas A-a O2 Differential 158.9 H 159.6 H 202.7 H Blood Gas Actual Respiration Rate 22 24 16 Blood Gas Critical Value Read Back M HUANG RN Blood Gas Low PEEP Setting 5.0 5.0 5.0 Blood Gas Modality VENT - AC VENT - AC VENT - AC Blood Gas Notified Time 08/05/2016 10:25:15 AM 08/05/2016 3:02:09 PM 08/05/2016 4:37:13 PM Blood Gas Notified Whom MITCH DE LEÓN Blood Gas Respiration Rate 22.0 24.0 16.0 Blood Gas Specimen Source Blood arterial Blood arterial Blood arterial Blood Gas Temperature 37.0 37.0 37.0 Blood Gas Tidal Volume 600.0 650.0 650.0 FiO2 40.0 40.0 100.0 Oxyhemoglobin Percent 93.3 95.2 98.7 Total Hemoglobin 11.3 L 12.6 12.1 Bedside Glucose 138 Test 08/05/16 20:56 08/06/16 00:23 08/06/16 05:00 08/06/16 05:10 Bedside Glucose 183 132 147 Alanine Aminotransferase (ALT/SGPT) 117 H Albumin 3.7 Albumin/Globulin Ratio 0.90 Alkaline Phosphatase 208 #H Anion Gap 29 H Aspartate Amino Transf (AST/SGOT) 87 H Basophils # 0.1 Basophils % 0.4 Blood Urea Nitrogen 89 H Calcium Level 7.7 L Carbon Dioxide Level 22 Chloride Level 96 L Creatinine 8.97 H Direct Bilirubin 0.00 Eosinophils # 0.6 H Eosinophils % 4.2 Globulin 4.10 H Glucose Level 147 # Hematocrit 32.7 L Hemoglobin 10.8 L Indirect Bilirubin 0.0 Lymphocytes # 1.5 Lymphocytes % 10.4 L Magnesium Level 2.9 H Mean Corpuscular Hemoglobin 30.9 Mean Corpuscular Hemoglobin Concent 33.0 Mean Corpuscular Volume 93.7 Mean Platelet Volume 10.6 #H Monocytes # 1.2 H Monocytes % 8.7 Neutrophils # 10.2 H Neutrophils % 72.1 Nucleated Red Blood Cells # 0.0 Nucleated Red Blood Cells % 0.0 Phosphorus Level 11.6 #H Platelet Count 374 # Potassium Level 5.0 Random Vancomycin Level 15.1 Red Blood Count 3.49 L Red Cell Distribution Width 14.8 H Sodium Level 142 Total Bilirubin 0.0 L Total Protein 7.8 White Blood Count 14.2 H Medications Medications Current Medications Norepinephrine/ Dextrose (Levophed/D5W) 500 ml @ 1.87 mls/hr TITRATE IV Last administered on 07/28/16 21:18; Admin Dose 11.25 MLS/HR; Start 07/28/16 at 04: 00 Labetalol HCl (Labetalol) 10 mg Q6H PRN IV sbp > 160 Last administered on 03:52; Admin Dose 10 MG; Start 07/28/16 at 00:30 Acetaminophen (Tylenol Supp) 650 mg Q6H PRN [place] PAIN AND OR ELEVATED TEMP Last administered on 07/31/16 17:30; Admin Dose 650 MG; Start 07/28/16 at 08:30 Miscellaneous Information 1 ea NOTE XX ; Start 07/28/16 at 09:00 Glucose (Glutose) 15 gm Q15M PRN PO DECREASED GLUCOSE; Start 07/28/16 at 09:00 Glucose (Glutose) 22.5 gm Q15M PRN PO DECREASED GLUCOSE; Start 07/28/16 at 09: 00 Dextrose (D50w Syringe) 25 ml Q15M PRN IV DECREASED GLUCOSE; Start 07/28/16 at 09:00 Dextrose (D50w Syringe) 50 ml Q15M PRN IV DECREASED GLUCOSE; Start 07/28/16 at 09:00 Glucagon (Glucagen) 1 mg Q15M PRN IM DECREASED GLUCOSE; Start 07/28/16 at 09:00 Glucose (Glutose) 15 gm Q15M PRN BUCCAL DECREASED GLUCOSE; Start 07/28/16 at 09 :00 IV Flush (NS 10 ml) 10 ml PRN PRN IV IV PROTOCOL; Start 07/29/16 at 17:00 Metoprolol Tartrate (Lopressor) 25 mg BID NGT Last administered on 08/05/16 20: 29; Admin Dose 25 MG; Start 07/31/16 at 09:00 Morphine Sulfate (morphine) 2 mg Q4 PRN IV PAIN Last administered on 08/02/16 00:07; Admin Dose 2 MG; Start 07/31/16 at 12:00 Pantoprazole 40 mg 40 mg DAILY@06 IV Last administered on 08/06/16 05:06; Admin Dose 40 MG; Start 08/02/16 at 06:00 Levetiracetam/ Sodium Chloride (Keppra Iv/NS) 115 ml @ 420 mls/hr Q12 IVPB Last administered on 08/05/16 20:28; Admin Dose 420 MLS/HR; Start 08/01/16 at 21 :00 Lorazepam 1 mg 1 mg Q1H PRN IV SEIZURES Last administered on 08/05/16 21:59; Admin Dose 1 MG; Start 08/02/16 at 02:00 Piperacillin Sod/ Tazobactam Sod (Zosyn 2.25gm/ 50ml (Pmx)) 50 ml @ 100 mls/hr Q8 IVPB Last administered on 08/06/16 05:06; Admin Dose 100 MLS/HR; Start 08/02 at 22:00 Acetaminophen (Tylenol Liquid) 650 mg Q4H PRN NGT PAIN AND OR ELEVATED TEMP Last administered on 08/04/16 21:40; Admin Dose 650 MG; Start 08/03/16 at 00:00 Insulin Glargine (Lantus) 20 unit DAILY@08 SC Last administered on 08/05/16 08: 16; Admin Dose 20 UNIT; Start 08/03/16 at 12:00 Insulin Aspart NOVOLOG *MILD* ALGORI... Q4 SC Last administered on 08/06/16 05: 16; Admin Dose 1 UNIT; Start 08/03/16 at 13:00 Valproate Sodium/ Sodium Chloride (Depacon/NS) 57.5 ml @ 55 mls/hr Q6 IVPB Last administered on 08/06/16 07:03; Admin Dose 55 MLS/HR; Start 08/04/16 at 13: 00 Calcium Acetate 667 mg 667 mg Q6 NGT Last administered on 08/06/16 05:12; Admin Dose 667 MG; Start 08/05/16 at 08:30 Midazolam HCl 50 ml @ 0 mls/hr TITRATE IV Last administered on 08/05/16 22:38; Admin Dose 3 MLS/HR; Start 08/05/16 at 13:00 Fentanyl (Sublimaze) 100 ml @ 2.5 mls/hr TITRATE IV Last administered on 22:39; Admin Dose 10 MLS/HR; Start 08/05/16 at 16:00 Hydralazine HCl (Apresoline) 10 mg Q4H PRN IV ELEVATED SYSTOLIC BP Last administered on 08/06/16 05:20; Admin Dose 10 MG; Start 08/06/16 at 01:30 LOPEZ LOW MD Aug 06, 2016 08:46
[2016-08-06] MEDS: ARFORMOTEROL TARTRATE 15MCG/2 ML AMP NEB SCH ×2 (08:55→20:48)
[2016-08-06] MEDS: INSULIN GLARGINE [LANtus] 3 ML PEN SC SCH (09:00)
[2016-08-06] MEDS: METOPROLOL 25 MG TAB NGT SCH ×2 (11:06→20:11)
[2016-08-06] MEDS: LEVETIRACETAM IV 1,500 MG in SOD CHLORIDE 0.9% 100 ML IVPB SCH ×2 (11:07→20:11)
--- NOTE | 2016-08-06 11:42 | CONS ---
Date/Time of Note Date/Time of Note DATE: 08/06/16 TIME: 11:40 Consult Date/Type/Reason Admit Date/Time Jul 27, 2016 at 23:29 Initial Consult Date 07/28/16 Type of Consultation: pulmonary Subjective Patient showed spontaneous respiratory effort yesterday on apnea test. This morning his breathing over the set ventilator rate Currently continues mechanical ventilation Remains hemodynamically stable, not opening eyes or following commands Objective Vital Signs Date Time Temp Pulse Resp B/P Pulse Ox O2 Delivery O2 Flow Rate FiO2 08/06/16 10:20 99 08/06/16 08:05 40 08/06/16 07:20 22 08/06/16 07:15 187/78 100 08/06/16 07:00 Mechanical Ventilator 08/06/16 04:00 99.2 08/05/16 16:51 8.0 Intake and Output 08/05/16 08/05/16 08/06/16 15:00 23:00 07:00 Intake Total 855 ml 860 ml 371.25 ml Output Total 5500 ml Balance -4645 ml 860 ml 371.25 ml PHYSICAL EXAMINATION GENERAL: Elderly gentleman, intubated on mechanical ventilation, orally intubated VITAL SIGNS: see below. HEENT: Pupils unreactive CARDIAC: S1, S2, tachycardia. CHEST: Diminished air entry bilaterally. ABDOMEN: Mildly distended. No bowel sounds. EXTREMITIES: No cyanosis, clubbing or edema. NEUROLOGIC unresponsive this morning Results/Medications Result Diagram: 08/06/16 0500 08/06/16 0500 Results 24 hrs Laboratory Tests Test 08/05/16 16:00 08/05/16 17:48 08/05/16 20:56 08/06/16 00:23 Arterial Blood HCO3 20.6 L Arterial Blood Base Excess -5.3 L Arterial Blood Oxygen Saturation 99.5 H Osiel Test ACCEPTAB Arterial Blood Gas Puncture Site Right Radial Arterial Blood Carboxyhemoglobin 0.3 Arterial Blood Date Drawn 08/05/2016 4:18:12 PM Arterial Blood Methemoglobin 0.5 Arterial Blood pCO2 (Temp correct) 41.2 Arterial Blood pH (Temp corrected) 7.316 L Arterial Blood pO2 (Temp corrected) 469.1 H Blood Gas A-a O2 Differential 202.7 H Blood Gas Actual Respiration Rate 16 Blood Gas Low PEEP Setting 5.0 Blood Gas Modality VENT - AC Blood Gas Notified Time 08/05/2016 4:37:13 PM Blood Gas Notified Whom CORRIE RT Blood Gas Respiration Rate 16.0 Blood Gas Specimen Source Blood arterial Blood Gas Temperature 37.0 Blood Gas Tidal Volume 650.0 FiO2 100.0 Oxyhemoglobin Percent 98.7 Total Hemoglobin 12.1 Bedside Glucose 138 183 132 Test 08/06/16 05:00 08/06/16 05:10 08/06/16 09:35 Alanine Aminotransferase (ALT/SGPT) 117 H Albumin 3.7 Albumin/Globulin Ratio 0.90 Alkaline Phosphatase 208 #H Anion Gap 29 H Aspartate Amino Transf (AST/SGOT) 87 H Basophils # 0.1 Basophils % 0.4 Blood Urea Nitrogen 89 H Calcium Level 7.7 L Carbon Dioxide Level 22 Chloride Level 96 L Creatinine 8.97 H Direct Bilirubin 0.00 Eosinophils # 0.6 H Eosinophils % 4.2 Globulin 4.10 H Glucose Level 147 # Hematocrit 32.7 L Hemoglobin 10.8 L Indirect Bilirubin 0.0 Lymphocytes # 1.5 Lymphocytes % 10.4 L Magnesium Level 2.9 H Mean Corpuscular Hemoglobin 30.9 Mean Corpuscular Hemoglobin Concent 33.0 Mean Corpuscular Volume 93.7 Mean Platelet Volume 10.6 #H Monocytes # 1.2 H Monocytes % 8.7 Neutrophils # 10.2 H Neutrophils % 72.1 Nucleated Red Blood Cells # 0.0 Nucleated Red Blood Cells % 0.0 Phosphorus Level 11.6 #H Platelet Count 374 # Potassium Level 5.0 Random Vancomycin Level 15.1 Red Blood Count 3.49 L Red Cell Distribution Width 14.8 H Sodium Level 142 Total Bilirubin 0.0 L Total Protein 7.8 White Blood Count 14.2 H Bedside Glucose 147 153 Medications Current Medications Norepinephrine/ Dextrose (Levophed/D5W) 500 ml @ 1.87 mls/hr TITRATE IV Last administered on 07/28/16 21:18; Admin Dose 11.25 MLS/HR; Start 07/28/16 at 04: 00 Labetalol HCl (Labetalol) 10 mg Q6H PRN IV sbp > 160 Last administered on 03:52; Admin Dose 10 MG; Start 07/28/16 at 00:30 Acetaminophen (Tylenol Supp) 650 mg Q6H PRN [place] PAIN AND OR ELEVATED TEMP Last administered on 07/31/16 17:30; Admin Dose 650 MG; Start 07/28/16 at 08:30 Miscellaneous Information 1 ea NOTE XX ; Start 07/28/16 at 09:00 Glucose (Glutose) 15 gm Q15M PRN PO DECREASED GLUCOSE; Start 07/28/16 at 09:00 Glucose (Glutose) 22.5 gm Q15M PRN PO DECREASED GLUCOSE; Start 07/28/16 at 09: 00 Dextrose (D50w Syringe) 25 ml Q15M PRN IV DECREASED GLUCOSE; Start 07/28/16 at 09:00 Dextrose (D50w Syringe) 50 ml Q15M PRN IV DECREASED GLUCOSE; Start 07/28/16 at 09:00 Glucagon (Glucagen) 1 mg Q15M PRN IM DECREASED GLUCOSE; Start 07/28/16 at 09:00 Glucose (Glutose) 15 gm Q15M PRN BUCCAL DECREASED GLUCOSE; Start 07/28/16 at 09 :00 IV Flush (NS 10 ml) 10 ml PRN PRN IV IV PROTOCOL; Start 07/29/16 at 17:00 Metoprolol Tartrate (Lopressor) 25 mg BID NGT Last administered on 08/06/16 11: 06; Admin Dose 25 MG; Start 07/31/16 at 09:00 Morphine Sulfate (morphine) 2 mg Q4 PRN IV PAIN Last administered on 08/02/16 00:07; Admin Dose 2 MG; Start 07/31/16 at 12:00 Pantoprazole 40 mg 40 mg DAILY@06 IV Last administered on 08/06/16 05:06; Admin Dose 40 MG; Start 08/02/16 at 06:00 Levetiracetam/ Sodium Chloride (Keppra Iv/NS) 115 ml @ 420 mls/hr Q12 IVPB Last administered on 08/06/16 11:07; Admin Dose 420 MLS/HR; Start 08/01/16 at 21 :00 Lorazepam 1 mg 1 mg Q1H PRN IV SEIZURES Last administered on 08/05/16 21:59; Admin Dose 1 MG; Start 08/02/16 at 02:00 Piperacillin Sod/ Tazobactam Sod (Zosyn 2.25gm/ 50ml (Pmx)) 50 ml @ 100 mls/hr Q8 IVPB Last administered on 08/06/16 05:06; Admin Dose 100 MLS/HR; Start 08/02 at 22:00 Acetaminophen (Tylenol Liquid) 650 mg Q4H PRN NGT PAIN AND OR ELEVATED TEMP Last administered on 08/04/16 21:40; Admin Dose 650 MG; Start 08/03/16 at 00:00 Insulin Glargine (Lantus) 20 unit DAILY@08 SC Last administered on 08/06/16 09: 00; Admin Dose 20 UNIT; Start 08/03/16 at 12:00 Insulin Aspart NOVOLOG *MILD* ALGORI... Q4 SC Last administered on 08/06/16 11: 28; Admin Dose 1 UNIT; Start 08/03/16 at 13:00 Valproate Sodium/ Sodium Chloride (Depacon/NS) 57.5 ml @ 55 mls/hr Q6 IVPB Last administered on 08/06/16 11:34; Admin Dose 55 MLS/HR; Start 08/04/16 at 13: 00 Calcium Acetate 667 mg 667 mg Q6 NGT Last administered on 08/06/16 11:12; Admin Dose 667 MG; Start 08/05/16 at 08:30 Midazolam HCl 50 ml @ 0 mls/hr TITRATE IV Last administered on 08/05/16 22:38; Admin Dose 3 MLS/HR; Start 08/05/16 at 13:00 Fentanyl (Sublimaze) 100 ml @ 2.5 mls/hr TITRATE IV Last administered on 22:39; Admin Dose 10 MLS/HR; Start 08/05/16 at 16:00 Hydralazine HCl 10 mg 10 mg Q4H PRN IV ELEVATED SYSTOLIC BP Last administered on 08/06/16 11:16; Admin Dose 10 MG; Start 08/06/16 at 01:30 Vancomycin HCl (Vancocin) 250 ml @ 125 mls/hr Q96H IVPB ; Start 08/06/16 at 15: 00 Assessment/Plan Chief Complaint/Hosp Course IMPRESSION: 1. s/p Cardiopulmonary arrest. 2. 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 3. End-stage renal failure. Hyperkalemia with metabolic acidosis 4. No evidence of occlusive lesions on cardiac catheterization. 5. HTN heart Disease 6. Asthma RECS 1. Vent support, increase minute ventilation to offset metabolic acidosis 2. Daily assessment of mental status 3. Hold off brain workup as patient has spontaneous respiratory effort 4. Neurology recommendations 5. Continue DVT and GI prophylaxis 6. Continue hemodialysis with correction of electrolytes. 7. Discussed prognosis with family in view of high likelihood of significant anoxic encephalopathy. Patient Will need tracheostomy and G-tube if family wish to continue current level of care Problems: JAVED PIERCE MD, [facility] Aug 06, 2016 11:42
[2016-08-06] MEDS: VANCOMYCIN 1 GM in NS 250 ML IVPB SCH (16:32)
[2016-08-06] MEDS: LORAZEPAM 2 MG INJ IV PRN (17:31)
[2016-08-07] VITALS (50 sets, daily range): BP systolic 94–175; BP diastolic 47–94; PULSE 84–106; RESP 12–27
[2016-08-07] MEDS: VALPROATE INJ 750 MG in SOD CHLORIDE 0.9% 50 ML IVPB SCH ×4 (00:12→17:56)
[2016-08-07] MEDS: CALCIUM ACETATE 667 MG CAP NGT SCH ×4 (00:21→17:57)
[2016-08-07] MEDS: INSULIN ASPART [NOVOLOG] 3 ML PEN SC SCH ×6 (00:29→21:21)
[2016-08-07] MEDS: ALBUTEROL HFA 8 GM INHALER INH SCH ×6 (01:44→21:03)
[2016-08-07] MEDS: IPRATROPIUM (HFA) 12.9 GM INHALER INH SCH ×6 (01:44→21:03)
[2016-08-07] MEDS: PANTOPRAZOLE 40 MG INJ IV SCH (05:40)
[2016-08-07] MEDS: PIPER-TAZO 2.25 GM (PMX) 50 ML IVPB SCH ×3 (05:40→21:01)
[2016-08-07 06:11] LABS: BASOPHIL # 0.1 10^3/ul (0.0-0.1); BASOPHILS % 0.3 % (0.0-2.0); EOSINOPHILS # 0.8 10^3/ul (0.0-0.5); EOSINOPHILS % 5.2 % (0.0-7.0); HEMATOCRIT 31.3 % (42.0-52.0); HEMOGLOBIN 10.8 g/dl (14.0-18.0); LYMPHOCYTES # 1.7 10^3/ul (0.8-2.9); LYMPHOCYTES % 11.5 % (15.0-51.0); MEAN CORPUSCULAR HGB CONC 34.5 g/dl (32.0-37.0); MEAN CORPUSCULAR VOLUME 92.8 fl (82.0-101.0); MEAN PLATELET VOLUME 8.5 fl (7.4-10.4); MONOCYTE # 1.1 10^3/ul (0.3-0.9); MONOCYTES % 7.7 % (0.0-11.0); NEUTROPHILS % 75.3 % (39.0-77.0); PLATELET COUNT 400 10^3/UL (140-440); RED BLOOD COUNT 3.37 10^6/ul (4.70-6.10); RED CELL DISTRIBUTION WIDTH 15.8 % (11.5-14.5); UNCORRECTED WBC 14.7 10^3/ul (4.8-10.8); WHITE BLOOD COUNT 14.7 10^3/ul (4.8-10.8)
[2016-08-07 06:19] LABS: POTASSIUM 5.5 mmol/L (3.5-5.1)
[2016-08-07 06:22] LABS: CALCIUM 7.5 mg/dl (8.4-10.2)
[2016-08-07] MEDS: hydrALAzine 20 MG INJ IV PRN ×2 (06:29→21:04)
[2016-08-07 06:30] LABS: CONDITION 1; LH ANALYZER COMMENTS 1
--- NOTE | 2016-08-07 07:43 | CONS ---
Date/Time of Note Date/Time of Note DATE: 08/07/16 TIME: 07:40 Assessment/Plan Assessment/Plan Problems: (1) Hyperkalemia Status: Acute Comment: despite HD yesterday.. will have them repeat dialysis today (2) ESRD (end stage renal disease) on dialysis Comment: as above.. HD today (3) Anoxic encephalopathy Status: Acute Comment: non responsive on the vent Consultation Date/Type/Reason Admit Date/Time Jul 27, 2016 at 23:29 Initial Consult Date 07/28/16 Type of Consultation: neph 24 HR Interval Summary Free Text/Dictation non responsive on the vent...twitching RLE which apparently is not new Exam/Review of Systems Vital Signs Vitals Vital Signs Date Time Temp Pulse Resp B/P Pulse Ox O2 Delivery O2 Flow Rate FiO2 08/07/16 06:00 91 18 169/75 98 Mechanical Ventilator 08/07/16 05:00 99.2 08/07/16 05:00 40 08/05/16 16:51 8.0 Intake and Output 08/06/16 08/06/16 08/07/16 15:00 23:00 07:00 Intake Total 680.0 ml 290 ml 307.5 ml Output Total 3200 ml 0 ml Balance -2520.0 ml 290 ml 307.5 ml Exam Constitutional: non-verbal Respiratory: clear to auscultation Cardiovascular: regular rate and rhythm Extremities: normal pulses Results Result Diagram: 08/07/16 0530 08/07/16 0530 Results 24 hrs Laboratory Tests Test 08/06/16 09:35 08/06/16 11:25 08/06/16 17:52 08/06/16 20:12 Bedside Glucose 153 172 175 172 Test 08/07/16 00:26 08/07/16 05:30 08/07/16 05:41 Bedside Glucose 169 144 Anion Gap 33 H Basophils # 0.1 Basophils % 0.3 Blood Morphology Comment Blood Urea Nitrogen 105 H Calcium Level 7.5 L Carbon Dioxide Level 18 L Chloride Level 97 Creatinine Pending Eosinophils # 0.8 H Eosinophils % 5.2 Glucose Level 136 Hematocrit 31.3 L Hemoglobin 10.8 L Lymphocytes # 1.7 Lymphocytes % 11.5 L Mean Corpuscular Hemoglobin 32.0 Mean Corpuscular Hemoglobin Concent 34.5 Mean Corpuscular Volume 92.8 Mean Platelet Volume 8.5 Monocytes # 1.1 H Monocytes % 7.7 Neutrophils # 11.0 H Neutrophils % 75.3 Nucleated Red Blood Cells # 0.0 Nucleated Red Blood Cells % 0.0 Platelet Count 400 Potassium Level 5.5 H Red Blood Count 3.37 L Red Cell Distribution Width 15.8 H Sodium Level 142 White Blood Count 14.7 H Medications Medications Current Medications Norepinephrine/ Dextrose (Levophed/D5W) 500 ml @ 1.87 mls/hr TITRATE IV Last administered on 07/28/16 21:18; Admin Dose 11.25 MLS/HR; Start 07/28/16 at 04: 00 Labetalol HCl (Labetalol) 10 mg Q6H PRN IV sbp > 160 Last administered on 14:53; Admin Dose 10 MG; Start 07/28/16 at 00:30 Acetaminophen (Tylenol Supp) 650 mg Q6H PRN [place] PAIN AND OR ELEVATED TEMP Last administered on 07/31/16 17:30; Admin Dose 650 MG; Start 07/28/16 at 08:30 Miscellaneous Information 1 ea NOTE XX ; Start 07/28/16 at 09:00 Glucose (Glutose) 15 gm Q15M PRN PO DECREASED GLUCOSE; Start 07/28/16 at 09:00 Glucose (Glutose) 22.5 gm Q15M PRN PO DECREASED GLUCOSE; Start 07/28/16 at 09: 00 Dextrose (D50w Syringe) 25 ml Q15M PRN IV DECREASED GLUCOSE; Start 07/28/16 at 09:00 Dextrose (D50w Syringe) 50 ml Q15M PRN IV DECREASED GLUCOSE; Start 07/28/16 at 09:00 Glucagon (Glucagen) 1 mg Q15M PRN IM DECREASED GLUCOSE; Start 07/28/16 at 09:00 Glucose (Glutose) 15 gm Q15M PRN BUCCAL DECREASED GLUCOSE; Start 07/28/16 at 09 :00 IV Flush (NS 10 ml) 10 ml PRN PRN IV IV PROTOCOL; Start 07/29/16 at 17:00 Metoprolol Tartrate (Lopressor) 25 mg BID NGT Last administered on 08/06/16 20: 11; Admin Dose 25 MG; Start 07/31/16 at 09:00 Morphine Sulfate (morphine) 2 mg Q4 PRN IV PAIN Last administered on 08/02/16 00:07; Admin Dose 2 MG; Start 07/31/16 at 12:00 Pantoprazole 40 mg 40 mg DAILY@06 IV Last administered on 08/07/16 05:40; Admin Dose 40 MG; Start 08/02/16 at 06:00 Levetiracetam/ Sodium Chloride (Keppra Iv/NS) 115 ml @ 420 mls/hr Q12 IVPB Last administered on 08/06/16 20:11; Admin Dose 420 MLS/HR; Start 08/01/16 at 21 :00 Lorazepam 1 mg 1 mg Q1H PRN IV SEIZURES Last administered on 08/06/16 17:31; Admin Dose 1 MG; Start 08/02/16 at 02:00 Piperacillin Sod/ Tazobactam Sod (Zosyn 2.25gm/ 50ml (Pmx)) 50 ml @ 100 mls/hr Q8 IVPB Last administered on 08/07/16 05:40; Admin Dose 100 MLS/HR; Start 08/02 at 22:00 Acetaminophen (Tylenol Liquid) 650 mg Q4H PRN NGT PAIN AND OR ELEVATED TEMP Last administered on 08/04/16 21:40; Admin Dose 650 MG; Start 08/03/16 at 00:00 Insulin Glargine (Lantus) 20 unit DAILY@08 SC Last administered on 08/06/16 09: 00; Admin Dose 20 UNIT; Start 08/03/16 at 12:00 Insulin Aspart NOVOLOG *MILD* ALGORI... Q4 SC Last administered on 08/07/16 05: 56; Admin Dose 1 UNIT; Start 08/03/16 at 13:00 Valproate Sodium/ Sodium Chloride (Depacon/NS) 57.5 ml @ 55 mls/hr Q6 IVPB Last administered on 08/07/16 06:30; Admin Dose 55 MLS/HR; Start 08/04/16 at 13: 00 Calcium Acetate 667 mg 667 mg Q6 NGT Last administered on 08/07/16 05:40; Admin Dose 667 MG; Start 08/05/16 at 08:30 Midazolam HCl 50 ml @ 0 mls/hr TITRATE IV Last administered on 08/05/16 22:38; Admin Dose 3 MLS/HR; Start 08/05/16 at 13:00 Fentanyl (Sublimaze) 100 ml @ 2.5 mls/hr TITRATE IV Last administered on 22:39; Admin Dose 10 MLS/HR; Start 08/05/16 at 16:00 Hydralazine HCl 10 mg 10 mg Q4H PRN IV ELEVATED SYSTOLIC BP Last administered on 08/07/16 06:29; Admin Dose 10 MG; Start 08/06/16 at 01:30 Vancomycin HCl (Vancocin) 250 ml @ 125 mls/hr Q96H IVPB Last administered on 16:32; Admin Dose 125 MLS/HR; Start 08/06/16 at 15:00 CAROLINE DEL CID MD Aug 07, 2016 07:43
[2016-08-07 08:00] LABS: CREATININE 9.89 mg/dl (0.61-1.24)
--- NOTE | 2016-08-07 08:09 | RADRPT ---
PROCEDURE: XR Chest. CLINICAL INDICATION: Pneumonia; CHF. TECHNIQUE: Single frontal view of the chest was obtained COMPARISON: Chest x-ray 08/05/2016 05:24 a.m. FINDINGS: The heart is enlarged. The PICC line catheter, endotracheal tube and NG tube remain in good positio n. There is a poor inspiratory effort. The pulmonary vasculature is normal. The lungs are clear w ith no pleural effusion identified. There are degenerative osteophytes in the thoracic spine. Ather osclerosis is noted in the aortic arch. IMPRESSION: 1. Expiratory phase chest x-ray resulting in compressive atelectasis in the bases of the lungs. No e vidence of active cardiopulmonary disease at this time. 2. Satisfactory positioning of PICC line catheter in the superior vena cava. 3. The endotracheal tube and NG tube remain a stable and good position. 4. Cardiomegaly. RPTAT:AAJJ Physician Marina Date Time Electronically viewed and signed by Jose Braswell Physician on 08/07/2016 08:08 NAFISA/
[2016-08-07] MEDS: ARFORMOTEROL TARTRATE 15MCG/2 ML AMP NEB SCH ×2 (08:31→21:02)
[2016-08-07 08:32] LABS: AADO2 Arterial 146.4 mmHg (7.0-24.0); Allen Test ACCEPTAB; Arterial Base Excess -6.2 mmol/L (-3.0-3); Arterial COHb 0.3 % (0.0-3.0); Arterial Fraction of Oxyhgb 95.5 % (93.0-99.0); Arterial MetHb 0.3 % (0.0-1.5); Arterial Total Hemglobin 11.9 g/dl (12.0-18.0); MODE VENT - AC
[2016-08-07] MEDS: BUDESONIDE (NEB) 0.5MG/2ML AMP HHN SCH ×2 (08:42→19:22)
[2016-08-07] MEDS: LEVETIRACETAM IV 1,500 MG in SOD CHLORIDE 0.9% 100 ML IVPB SCH (09:27)
[2016-08-07] MEDS: INSULIN GLARGINE [LANtus] 3 ML PEN SC SCH (09:27)
--- NOTE | 2016-08-07 09:55 | CONS ---
Date/Time of Note Date/Time of Note DATE: 08/07/16 TIME: 09:45 Consult Date/Type/Reason Admit Date/Time Jul 27, 2016 at 23:29 Initial Consult Date 07/28/16 Type of Consultation: neurology Subjective off sedation since yesterday, currently getting hemodialysis Objective Vital Signs Date Time Temp Pulse Resp B/P Pulse Ox O2 Delivery O2 Flow Rate FiO2 08/07/16 08:00 98.7 100 21 159/68 98 Mechanical Ventilator 08/07/16 08:00 40 08/05/16 16:51 8.0 Intake and Output 08/06/16 08/06/16 08/07/16 15:00 23:00 07:00 Intake Total 680.0 ml 290 ml 307.5 ml Output Total 3200 ml 0 ml Balance -2520.0 ml 290 ml 307.5 ml Results/Medications Result Diagram: 08/07/16 0530 08/07/16 0530 Results 24 hrs Laboratory Tests Test 08/06/16 11:25 08/06/16 17:52 08/06/16 20:12 08/07/16 00:26 Bedside Glucose 172 175 172 169 Test 08/07/16 05:30 08/07/16 05:41 08/07/16 07:00 08/07/16 09:23 Anion Gap 33 H Basophils # 0.1 Basophils % 0.3 Blood Morphology Comment Blood Urea Nitrogen 105 H Calcium Level 7.5 L Carbon Dioxide Level 18 L Chloride Level 97 Creatinine 9.89 H Eosinophils # 0.8 H Eosinophils % 5.2 Glucose Level 136 Hematocrit 31.3 L Hemoglobin 10.8 L Lymphocytes # 1.7 Lymphocytes % 11.5 L Mean Corpuscular Hemoglobin 32.0 Mean Corpuscular Hemoglobin Concent 34.5 Mean Corpuscular Volume 92.8 Mean Platelet Volume 8.5 Monocytes # 1.1 H Monocytes % 7.7 Neutrophils # 11.0 H Neutrophils % 75.3 Nucleated Red Blood Cells # 0.0 Nucleated Red Blood Cells % 0.0 Platelet Count 400 Potassium Level 5.5 H Red Blood Count 3.37 L Red Cell Distribution Width 15.8 H Sodium Level 142 White Blood Count 14.7 H Bedside Glucose 144 136 Arterial Blood HCO3 19.0 L Arterial Blood Base Excess -6.2 L Arterial Blood Oxygen Saturation 96.1 Osiel Test ACCEPTAB Arterial Blood Gas Puncture Site Right Radial Arterial Blood Carboxyhemoglobin 0.3 Arterial Blood Date Drawn 08/07/2016 8:05:58 AM Arterial Blood Methemoglobin 0.3 Arterial Blood pCO2 (Temp correct) 36.1 Arterial Blood pH (Temp corrected) 7.338 L Arterial Blood pO2 (Temp corrected) 97.3 Blood Gas A-a O2 Differential 146.4 H Blood Gas Actual Respiration Rate 19 Blood Gas Low PEEP Setting 5.0 Blood Gas Modality VENT - AC Blood Gas Notified Time 08/07/2016 8:32:40 AM Blood Gas Notified Whom Nino RUTHERFORD Blood Gas Respiration Rate 16.0 Blood Gas Specimen Source Blood arterial Blood Gas Temperature 37.0 Blood Gas Tidal Volume 650.0 FiO2 40.0 Oxyhemoglobin Percent 95.5 Total Hemoglobin 11.9 L Medications Current Medications Norepinephrine/ Dextrose (Levophed/D5W) 500 ml @ 1.87 mls/hr TITRATE IV Last administered on 07/28/16 21:18; Admin Dose 11.25 MLS/HR; Start 07/28/16 at 04: 00 Labetalol HCl (Labetalol) 10 mg Q6H PRN IV sbp > 160 Last administered on 14:53; Admin Dose 10 MG; Start 07/28/16 at 00:30 Acetaminophen (Tylenol Supp) 650 mg Q6H PRN [place] PAIN AND OR ELEVATED TEMP Last administered on 07/31/16 17:30; Admin Dose 650 MG; Start 07/28/16 at 08:30 Miscellaneous Information 1 ea NOTE XX ; Start 07/28/16 at 09:00 Glucose (Glutose) 15 gm Q15M PRN PO DECREASED GLUCOSE; Start 07/28/16 at 09:00 Glucose (Glutose) 22.5 gm Q15M PRN PO DECREASED GLUCOSE; Start 07/28/16 at 09: 00 Dextrose (D50w Syringe) 25 ml Q15M PRN IV DECREASED GLUCOSE; Start 07/28/16 at 09:00 Dextrose (D50w Syringe) 50 ml Q15M PRN IV DECREASED GLUCOSE; Start 07/28/16 at 09:00 Glucagon (Glucagen) 1 mg Q15M PRN IM DECREASED GLUCOSE; Start 07/28/16 at 09:00 Glucose (Glutose) 15 gm Q15M PRN BUCCAL DECREASED GLUCOSE; Start 07/28/16 at 09 :00 IV Flush (NS 10 ml) 10 ml PRN PRN IV IV PROTOCOL; Start 07/29/16 at 17:00 Metoprolol Tartrate (Lopressor) 25 mg BID NGT Last administered on 08/06/16 20: 11; Admin Dose 25 MG; Start 07/31/16 at 09:00 Morphine Sulfate (morphine) 2 mg Q4 PRN IV PAIN Last administered on 08/02/16 00:07; Admin Dose 2 MG; Start 07/31/16 at 12:00 Pantoprazole 40 mg 40 mg DAILY@06 IV Last administered on 08/07/16 05:40; Admin Dose 40 MG; Start 08/02/16 at 06:00 Levetiracetam/ Sodium Chloride (Keppra Iv/NS) 115 ml @ 420 mls/hr Q12 IVPB Last administered on 08/07/16 09:27; Admin Dose 420 MLS/HR; Start 08/01/16 at 21 :00 Lorazepam 1 mg 1 mg Q1H PRN IV SEIZURES Last administered on 08/06/16 17:31; Admin Dose 1 MG; Start 08/02/16 at 02:00 Piperacillin Sod/ Tazobactam Sod (Zosyn 2.25gm/ 50ml (Pmx)) 50 ml @ 100 mls/hr Q8 IVPB Last administered on 08/07/16 05:40; Admin Dose 100 MLS/HR; Start 08/02 at 22:00 Acetaminophen (Tylenol Liquid) 650 mg Q4H PRN NGT PAIN AND OR ELEVATED TEMP Last administered on 08/04/16 21:40; Admin Dose 650 MG; Start 08/03/16 at 00:00 Insulin Glargine (Lantus) 20 unit DAILY@08 SC Last administered on 08/07/16 09: 27; Admin Dose 20 UNIT; Start 08/03/16 at 12:00 Insulin Aspart NOVOLOG *MILD* ALGORI... Q4 SC Last administered on 08/07/16 05: 56; Admin Dose 1 UNIT; Start 08/03/16 at 13:00 Valproate Sodium/ Sodium Chloride (Depacon/NS) 57.5 ml @ 55 mls/hr Q6 IVPB Last administered on 08/07/16 06:30; Admin Dose 55 MLS/HR; Start 08/04/16 at 13: 00 Calcium Acetate 667 mg 667 mg Q6 NGT Last administered on 08/07/16 05:40; Admin Dose 667 MG; Start 08/05/16 at 08:30 Midazolam HCl 50 ml @ 0 mls/hr TITRATE IV Last administered on 08/05/16 22:38; Admin Dose 3 MLS/HR; Start 08/05/16 at 13:00 Fentanyl (Sublimaze) 100 ml @ 2.5 mls/hr TITRATE IV Last administered on 22:39; Admin Dose 10 MLS/HR; Start 08/05/16 at 16:00 Hydralazine HCl 10 mg 10 mg Q4H PRN IV ELEVATED SYSTOLIC BP Last administered on 08/07/16 06:29; Admin Dose 10 MG; Start 08/06/16 at 01:30 Vancomycin HCl (Vancocin) 250 ml @ 125 mls/hr Q96H IVPB Last administered on 16:32; Admin Dose 125 MLS/HR; Start 08/06/16 at 15:00 Assessment/Plan Chief Complaint/Hosp Course intubated, off sedation, no response to voice or command, no response to visual threat, pupils 3mm to 2 mm, minimal EOM on OCM Present corneal reflexes bilaterally and gag no withdrawal to noxious stimuli in extremities A/P [place] encephalopathy, off sedation. 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 Continue current treatment. PEG/trach pending Problems: JORDAN AVERY MD Aug 07, 2016 09:55
--- NOTE | 2016-08-07 11:48 | PN ---
Date/Time of Note Date/Time of Note DATE: 08/07/16 TIME: 11:45 Assessment/Plan VTE Prophylaxis VTE Prophylaxis Intervention: other Lines/Catheters IV [facility]from [facility] Arrow cath Central line still needed: Yes Urinary Cath still in place: No Assessment/Plan Problems: (1) Asthma with COPD (chronic obstructive pulmonary disease) Status: Chronic Comment: He is receiving appropriate treatments and this is relatively stable at this point time (2) Respiratory arrest before cardiac arrest Status: Acute Comment: He had acute respiratory failure leading to a PEA cardiac arrest as an outpatient. He is been resuscitated but has a significant anoxic encephalopathy. (3) Anoxic encephalopathy Status: Acute Comment: He is not brain by criteria however he has a deep vegetative state which this many days out from the acute event is a very poor prognostic feature. While he may have some improvement from where he is today the likelihood of meaningful recovery with independent living is nil. 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 Status: Chronic Comment: Adequately controlled (5) ESRD (end stage renal disease) on dialysis Comment: Remains on dialysis though we need a new dialysis access Subjective 24 Hr Interval Summary Free Text/Dictation Patient nonresponsive to noxious stimuli despite being off of sedatives receiving dialysis now Subjective hx not possible: pt non-verbal Exam/Review of Systems Vital Signs Vitals Vital Signs Date Time Temp Pulse Resp B/P Pulse Ox O2 Delivery O2 Flow Rate FiO2 08/07/16 10:30 102 08/07/16 08:00 98.7 21 159/68 98 Mechanical Ventilator 08/07/16 08:00 40 08/05/16 16:51 8.0 Intake and Output 08/06/16 08/06/16 08/07/16 15:00 23:00 07:00 Intake Total 680.0 ml 290 ml 307.5 ml Output Total 3200 ml 0 ml Balance -2520.0 ml 290 ml 307.5 ml Exam Constitutional: non-verbal (Comatose) Eyes: nl conjunctiva, nl lids ENMT: intubated, nl external ears & nose, nl lips & teeth Respiratory: clear to auscultation, normal air movement Cardiovascular: nl pulses, regular rate and rhythm Gastrointestinal: nl liver, spleen, non-tender, soft Results Result Diagram: 08/07/16 0530 08/07/16 0530 Results 24 hrs Laboratory Tests Test 08/06/16 17:52 08/06/16 20:12 08/07/16 00:26 08/07/16 05:30 Bedside Glucose 175 172 169 Anion Gap 33 H Basophils # 0.1 Basophils % 0.3 Blood Morphology Comment Blood Urea Nitrogen 105 H Calcium Level 7.5 L Carbon Dioxide Level 18 L Chloride Level 97 Creatinine 9.89 H Eosinophils # 0.8 H Eosinophils % 5.2 Glucose Level 136 Hematocrit 31.3 L Hemoglobin 10.8 L Lymphocytes # 1.7 Lymphocytes % 11.5 L Mean Corpuscular Hemoglobin 32.0 Mean Corpuscular Hemoglobin Concent 34.5 Mean Corpuscular Volume 92.8 Mean Platelet Volume 8.5 Monocytes # 1.1 H Monocytes % 7.7 Neutrophils # 11.0 H Neutrophils % 75.3 Nucleated Red Blood Cells # 0.0 Nucleated Red Blood Cells % 0.0 Platelet Count 400 Potassium Level 5.5 H Red Blood Count 3.37 L Red Cell Distribution Width 15.8 H Sodium Level 142 White Blood Count 14.7 H Test 08/07/16 05:41 08/07/16 07:00 08/07/16 09:23 Bedside Glucose 144 136 Arterial Blood HCO3 19.0 L Arterial Blood Base Excess -6.2 L Arterial Blood Oxygen Saturation 96.1 Osiel Test ACCEPTAB Arterial Blood Gas Puncture Site Right Radial Arterial Blood Carboxyhemoglobin 0.3 Arterial Blood Date Drawn 08/07/2016 8:05:58 AM Arterial Blood Methemoglobin 0.3 Arterial Blood pCO2 (Temp correct) 36.1 Arterial Blood pH (Temp corrected) 7.338 L Arterial Blood pO2 (Temp corrected) 97.3 Blood Gas A-a O2 Differential 146.4 H Blood Gas Actual Respiration Rate 19 Blood Gas Low PEEP Setting 5.0 Blood Gas Modality VENT - AC Blood Gas Notified Time 08/07/2016 8:32:40 AM Blood Gas Notified Whom Nino RUTHERFORD Blood Gas Respiration Rate 16.0 Blood Gas Specimen Source Blood arterial Blood Gas Temperature 37.0 Blood Gas Tidal Volume 650.0 FiO2 40.0 Oxyhemoglobin Percent 95.5 Total Hemoglobin 11.9 L Medications Medications Current Medications Norepinephrine/ Dextrose (Levophed/D5W) 500 ml @ 1.87 mls/hr TITRATE IV Last administered on 07/28/16 21:18; Admin Dose 11.25 MLS/HR; Start 07/28/16 at 04: 00 Labetalol HCl (Labetalol) 10 mg Q6H PRN IV sbp > 160 Last administered on 14:53; Admin Dose 10 MG; Start 07/28/16 at 00:30 Acetaminophen (Tylenol Supp) 650 mg Q6H PRN [place] PAIN AND OR ELEVATED TEMP Last administered on 07/31/16 17:30; Admin Dose 650 MG; Start 07/28/16 at 08:30 Miscellaneous Information 1 ea NOTE XX ; Start 07/28/16 at 09:00 Glucose (Glutose) 15 gm Q15M PRN PO DECREASED GLUCOSE; Start 07/28/16 at 09:00 Glucose (Glutose) 22.5 gm Q15M PRN PO DECREASED GLUCOSE; Start 07/28/16 at 09: 00 Dextrose (D50w Syringe) 25 ml Q15M PRN IV DECREASED GLUCOSE; Start 07/28/16 at 09:00 Dextrose (D50w Syringe) 50 ml Q15M PRN IV DECREASED GLUCOSE; Start 07/28/16 at 09:00 Glucagon (Glucagen) 1 mg Q15M PRN IM DECREASED GLUCOSE; Start 07/28/16 at 09:00 Glucose (Glutose) 15 gm Q15M PRN BUCCAL DECREASED GLUCOSE; Start 07/28/16 at 09 :00 IV Flush (NS 10 ml) 10 ml PRN PRN IV IV PROTOCOL; Start 07/29/16 at 17:00 Metoprolol Tartrate (Lopressor) 25 mg BID NGT Last administered on 08/06/16 20: 11; Admin Dose 25 MG; Start 07/31/16 at 09:00 Morphine Sulfate (morphine) 2 mg Q4 PRN IV PAIN Last administered on 08/02/16 00:07; Admin Dose 2 MG; Start 07/31/16 at 12:00 Pantoprazole (Protonix Iv) 40 mg DAILY@06 IV Last administered on 08/07/16 05: 40; Admin Dose 40 MG; Start 08/02/16 at 06:00 Lorazepam 1 mg 1 mg Q1H PRN IV SEIZURES Last administered on 08/06/16 17:31; Admin Dose 1 MG; Start 08/02/16 at 02:00 Piperacillin Sod/ Tazobactam Sod (Zosyn 2.25gm/ 50ml (Pmx)) 50 ml @ 100 mls/hr Q8 IVPB Last administered on 08/07/16 05:40; Admin Dose 100 MLS/HR; Start 08/02 at 22:00 Acetaminophen (Tylenol Liquid) 650 mg Q4H PRN NGT PAIN AND OR ELEVATED TEMP Last administered on 08/04/16 21:40; Admin Dose 650 MG; Start 08/03/16 at 00:00 Insulin Glargine (Lantus) 20 unit DAILY@08 SC Last administered on 08/07/16 09: 27; Admin Dose 20 UNIT; Start 08/03/16 at 12:00 Insulin Aspart NOVOLOG *MILD* ALGORI... Q4 SC Last administered on 08/07/16 05: 56; Admin Dose 1 UNIT; Start 08/03/16 at 13:00 Valproate Sodium/ Sodium Chloride (Depacon/NS) 57.5 ml @ 55 mls/hr Q6 IVPB Last administered on 08/07/16 06:30; Admin Dose 55 MLS/HR; Start 08/04/16 at 13: 00 Calcium Acetate 667 mg 667 mg Q6 NGT Last administered on 08/07/16 05:40; Admin Dose 667 MG; Start 08/05/16 at 08:30 Midazolam HCl 50 ml @ 0 mls/hr TITRATE IV Last administered on 08/05/16 22:38; Admin Dose 3 MLS/HR; Start 08/05/16 at 13:00 Fentanyl (Sublimaze) 100 ml @ 2.5 mls/hr TITRATE IV Last administered on 22:39; Admin Dose 10 MLS/HR; Start 08/05/16 at 16:00 Hydralazine HCl 10 mg 10 mg Q4H PRN IV ELEVATED SYSTOLIC BP Last administered on 08/07/16 06:29; Admin Dose 10 MG; Start 08/06/16 at 01:30 Vancomycin HCl 250 ml @ 125 mls/hr Q96H IVPB Last administered on 08/06/16 16: 32; Admin Dose 125 MLS/HR; Start 08/06/16 at 15:00 Levetiracetam/ Sodium Chloride (Keppra Iv/NS) 107.5 ml @ 420 mls/hr DAILY IVPB ; Start 08/08/16 at 09:00 LOPEZ LOW MD Aug 07, 2016 11:48
[2016-08-07] MEDS: METOPROLOL 25 MG TAB NGT SCH ×2 (12:23→20:55)
--- NOTE | 2016-08-07 12:53 | CONS ---
Date/Time of Note Date/Time of Note DATE: 08/07/16 TIME: 12:52 Consult Date/Type/Reason Admit Date/Time Jul 27, 2016 at 23:29 Initial Consult Date 07/28/16 Type of Consultation: pulmonary Subjective Patient remains unresponsive on mechanical ventilation Continues ventilator and hemodialysis Objective Vital Signs Date Time Temp Pulse Resp B/P Pulse Ox O2 Delivery O2 Flow Rate FiO2 08/07/16 11:10 102 27 97 40 08/07/16 08:00 98.7 159/68 Mechanical Ventilator 08/05/16 16:51 8.0 Intake and Output 08/06/16 08/06/16 08/07/16 15:00 23:00 07:00 Intake Total 680.0 ml 290 ml 307.5 ml Output Total 3200 ml 0 ml Balance -2520.0 ml 290 ml 307.5 ml PHYSICAL EXAMINATION GENERAL: Elderly gentleman, intubated on mechanical ventilation, orally intubated VITAL SIGNS: see below. HEENT: Pupils unreactive CARDIAC: S1, S2, tachycardia. CHEST: Diminished air entry bilaterally. ABDOMEN: Mildly distended. No bowel sounds. EXTREMITIES: No cyanosis, clubbing or edema. NEUROLOGIC unresponsive this morning Results/Medications Result Diagram: 08/07/16 0530 08/07/16 0530 Results 24 hrs Laboratory Tests Test 08/06/16 17:52 08/06/16 20:12 08/07/16 00:26 08/07/16 05:30 Bedside Glucose 175 172 169 Anion Gap 33 H Basophils # 0.1 Basophils % 0.3 Blood Morphology Comment Blood Urea Nitrogen 105 H Calcium Level 7.5 L Carbon Dioxide Level 18 L Chloride Level 97 Creatinine 9.89 H Eosinophils # 0.8 H Eosinophils % 5.2 Glucose Level 136 Hematocrit 31.3 L Hemoglobin 10.8 L Lymphocytes # 1.7 Lymphocytes % 11.5 L Mean Corpuscular Hemoglobin 32.0 Mean Corpuscular Hemoglobin Concent 34.5 Mean Corpuscular Volume 92.8 Mean Platelet Volume 8.5 Monocytes # 1.1 H Monocytes % 7.7 Neutrophils # 11.0 H Neutrophils % 75.3 Nucleated Red Blood Cells # 0.0 Nucleated Red Blood Cells % 0.0 Platelet Count 400 Potassium Level 5.5 H Red Blood Count 3.37 L Red Cell Distribution Width 15.8 H Sodium Level 142 White Blood Count 14.7 H Test 08/07/16 05:41 2/5/17 07:00 08/07/16 09:23 Bedside Glucose 144 136 Arterial Blood HCO3 19.0 L Arterial Blood Base Excess -6.2 L Arterial Blood Oxygen Saturation 96.1 Osiel Test ACCEPTAB Arterial Blood Gas Puncture Site Right Radial Arterial Blood Carboxyhemoglobin 0.3 Arterial Blood Date Drawn 08/07/2016 8:05:58 AM Arterial Blood Methemoglobin 0.3 Arterial Blood pCO2 (Temp correct) 36.1 Arterial Blood pH (Temp corrected) 7.338 L Arterial Blood pO2 (Temp corrected) 97.3 Blood Gas A-a O2 Differential 146.4 H Blood Gas Actual Respiration Rate 19 Blood Gas Low PEEP Setting 5.0 Blood Gas Modality VENT - AC Blood Gas Notified Time 08/07/2016 8:32:40 AM Blood Gas Notified Whom Nino R[place] Blood Gas Respiration Rate 16.0 Blood Gas Specimen Source Blood arterial Blood Gas Temperature 37.0 Blood Gas Tidal Volume 650.0 FiO2 40.0 Oxyhemoglobin Percent 95.5 Total Hemoglobin 11.9 L Medications Current Medications Norepinephrine/ Dextrose (Levophed/D5W) 500 ml @ 1.87 mls/hr TITRATE IV Last administered on 07/28/16 21:18; Admin Dose 11.25 MLS/HR; Start 07/28/16 at 04: 00 Labetalol HCl (Labetalol) 10 mg Q6H PRN IV sbp > 160 Last administered on 14:53; Admin Dose 10 MG; Start 07/28/16 at 00:30 Acetaminophen (Tylenol Supp) 650 mg Q6H PRN [place] PAIN AND OR ELEVATED TEMP Last administered on 07/31/16 17:30; Admin Dose 650 MG; Start 07/28/16 at 08:30 Miscellaneous Information 1 ea NOTE XX ; Start 07/28/16 at 09:00 Glucose (Glutose) 15 gm Q15M PRN PO DECREASED GLUCOSE; Start 07/28/16 at 09:00 Glucose (Glutose) 22.5 gm Q15M PRN PO DECREASED GLUCOSE; Start 07/28/16 at 09: 00 Dextrose (D50w Syringe) 25 ml Q15M PRN IV DECREASED GLUCOSE; Start 07/28/16 at 09:00 Dextrose (D50w Syringe) 50 ml Q15M PRN IV DECREASED GLUCOSE; Start 07/28/16 at 09:00 Glucagon (Glucagen) 1 mg Q15M PRN IM DECREASED GLUCOSE; Start 07/28/16 at 09:00 Glucose (Glutose) 15 gm Q15M PRN BUCCAL DECREASED GLUCOSE; Start 07/28/16 at 09 :00 IV Flush (NS 10 ml) 10 ml PRN PRN IV IV PROTOCOL; Start 07/29/16 at 17:00 Metoprolol Tartrate (Lopressor) 25 mg BID NGT Last administered on 08/07/16 12: 23; Admin Dose 25 MG; Start 07/31/16 at 09:00 Morphine Sulfate (morphine) 2 mg Q4 PRN IV PAIN Last administered on 08/02/16 00:07; Admin Dose 2 MG; Start 07/31/16 at 12:00 Pantoprazole (Protonix Iv) 40 mg DAILY@06 IV Last administered on 08/07/16 05: 40; Admin Dose 40 MG; Start 08/02/16 at 06:00 Lorazepam 1 mg 1 mg Q1H PRN IV SEIZURES Last administered on 08/06/16 17:31; Admin Dose 1 MG; Start 08/02/16 at 02:00 Piperacillin Sod/ Tazobactam Sod (Zosyn 2.25gm/ 50ml (Pmx)) 50 ml @ 100 mls/hr Q8 IVPB Last administered on 08/07/16 05:40; Admin Dose 100 MLS/HR; Start 08/02 at 22:00 Acetaminophen (Tylenol Liquid) 650 mg Q4H PRN NGT PAIN AND OR ELEVATED TEMP Last administered on 08/04/16 21:40; Admin Dose 650 MG; Start 08/03/16 at 00:00 Insulin Glargine (Lantus) 20 unit DAILY@08 SC Last administered on 08/07/16 09: 27; Admin Dose 20 UNIT; Start 08/03/16 at 12:00 Insulin Aspart NOVOLOG *MILD* ALGORI... Q4 SC Last administered on 08/07/16 05: 56; Admin Dose 1 UNIT; Start 08/03/16 at 13:00 Valproate Sodium/ Sodium Chloride (Depacon/NS) 57.5 ml @ 55 mls/hr Q6 IVPB Last administered on 08/07/16 12:23; Admin Dose 55 MLS/HR; Start 08/04/16 at 13: 00 Calcium Acetate 667 mg 667 mg Q6 NGT Last administered on 08/07/16 12:24; Admin Dose 667 MG; Start 08/05/16 at 08:30 Midazolam HCl 50 ml @ 0 mls/hr TITRATE IV Last administered on 08/05/16 22:38; Admin Dose 3 MLS/HR; Start 08/05/16 at 13:00 Fentanyl (Sublimaze) 100 ml @ 2.5 mls/hr TITRATE IV Last administered on 22:39; Admin Dose 10 MLS/HR; Start 08/05/16 at 16:00 Hydralazine HCl 10 mg 10 mg Q4H PRN IV ELEVATED SYSTOLIC BP Last administered on 08/07/16 06:29; Admin Dose 10 MG; Start 08/06/16 at 01:30 Vancomycin HCl 250 ml @ 125 mls/hr Q96H IVPB Last administered on 08/06/16 16: 32; Admin Dose 125 MLS/HR; Start 08/06/16 at 15:00 Levetiracetam/ Sodium Chloride (Keppra Iv/NS) 107.5 ml @ 420 mls/hr DAILY IVPB ; Start 08/08/16 at 09:00 Assessment/Plan Chief Complaint/Hosp Course IMPRESSION: 1. s/p Cardiopulmonary arrest. 2. 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 3. End-stage renal failure. Hyperkalemia with metabolic acidosis 4. No evidence of occlusive lesions on cardiac catheterization. 5. HTN heart Disease 6. Asthma RECS 1. Vent support, patient not amenable secondary to significant evidence anoxic brain injury 2. Daily assessment of mental status 3. Spontaneous respiratory effort not consistently brain 4. Neurology recommendations 5. Continue DVT and GI prophylaxis 6. Continue hemodialysis with correction of electrolytes. Patient Will need tracheostomy and G-tube if family wish to continue current level of care Discussed again with patient's family at bedside and they are still deferring making a decision about goals of care. Problems: JAVED PIERCE MD, [facility] Aug 07, 2016 12:53
[2016-08-08] VITALS (56 sets, daily range): BP systolic 90–191; BP diastolic 50–100; PULSE 76–109; RESP 16–40
[2016-08-08] MEDS: CALCIUM ACETATE 667 MG CAP NGT SCH ×4 (00:09→18:29)
[2016-08-08] MEDS: VALPROATE INJ 750 MG in SOD CHLORIDE 0.9% 50 ML IVPB SCH ×4 (00:10→18:29)
[2016-08-08] MEDS: IPRATROPIUM (HFA) 12.9 GM INHALER INH SCH ×6 (01:03→20:20)
[2016-08-08] MEDS: ALBUTEROL HFA 8 GM INHALER INH SCH ×6 (01:03→20:21)
[2016-08-08] MEDS: INSULIN ASPART [NOVOLOG] 3 ML PEN SC SCH ×6 (01:39→21:47)
[2016-08-08 05:39] LABS: BASOPHIL # 0.1 10^3/ul (0.0-0.1); BASOPHILS % 0.5 % (0.0-2.0); EOSINOPHILS # 0.6 10^3/ul (0.0-0.5); EOSINOPHILS % 3.9 % (0.0-7.0); HEMATOCRIT 32.8 % (42.0-52.0); HEMOGLOBIN 11.2 g/dl (14.0-18.0); LYMPHOCYTES # 1.9 10^3/ul (0.8-2.9); LYMPHOCYTES % 12.1 % (15.0-51.0); MEAN CORPUSCULAR HEMOGLOBIN 31.8 pg (29.0-33.0); MEAN CORPUSCULAR HGB CONC 34.2 g/dl (32.0-37.0); MEAN CORPUSCULAR VOLUME 92.8 fl (82.0-101.0); MEAN PLATELET VOLUME 8.7 fl (7.4-10.4); MONOCYTE # 1.1 10^3/ul (0.3-0.9); MONOCYTES % 7.2 % (0.0-11.0); NEUTROPHIL # 11.9 10^3/ul (1.6-7.5); NEUTROPHILS % 76.3 % (39.0-77.0); PLATELET COUNT 446 10^3/UL (140-440); POTASSIUM 5.4 mmol/L (3.5-5.1); RED BLOOD COUNT 3.54 10^6/ul (4.70-6.10); UNCORRECTED WBC 15.6 10^3/ul (4.8-10.8); WHITE BLOOD COUNT 15.6 10^3/ul (4.8-10.8)
[2016-08-08 05:41] LABS: ALBUMIN/GLOBULIN RATIO 0.95; TOTAL PROTEIN 8.2 g/dl (6.1-8.1)
[2016-08-08 05:53] LABS: CREATININE 10.54 mg/dl (0.61-1.24)
[2016-08-08] MEDS: PIPER-TAZO 2.25 GM (PMX) 50 ML IVPB SCH ×3 (05:55→21:41)
[2016-08-08] MEDS: PANTOPRAZOLE 40 MG INJ IV SCH (05:55)
[2016-08-08 06:18] LABS: CONDITION 1; LH ANALYZER COMMENTS 1
--- NOTE | 2016-08-08 07:18 | CONS ---
Date/Time of Note Date/Time of Note DATE: 08/08/16 TIME: 07:09 Assessment/Plan Assessment/Plan Chief Complaint/Hosp Course #1 end-stage renal disease , this patient has ESRD due to diabetic nephropathy and has been on maintenance hemodialysis for about 1 year. He has dialysis yesterday . He has a new R femoral vascath that was placed last week because of poorly functioning L upper arm AV fistula .His BUN is high and I will order hemodialysis for today . #2 the patient is status post a cardiac arrest at home #3 altered level of consciousness, probable anoxic encephalopathy. EEG done last week was abnormal consistent with brain . #4 insulin-dependent diabetes mellitus #5 seizures #6 ventilator dependent respiratory failure , h/o COPD and pneumonia on CXR . #7 hyperphosphatemia , calcium acetate started today . Problems: Consultation Date/Type/Reason Admit Date/Time Jul 27, 2016 at 23:29 Initial Consult Date 07/28/16 Type of Consultation: pulmonary 24 HR Interval Summary Free Text/Dictation He is in the ICU , unresponsive on a ventilator .He was dialyzed yesterday . Exam/Review of Systems Vital Signs Vitals Vital Signs Date Time Temp Pulse Resp B/P Pulse Ox O2 Delivery O2 Flow Rate FiO2 08/08/16 06:30 94 22 191/84 96 Mechanical Ventilator 08/08/16 05:11 40 08/08/16 04:00 99.7 08/05/16 16:51 8.0 Intake and Output 08/07/16 08/07/16 08/08/16 15:00 23:00 07:00 Intake Total 802.5 ml 397.5 ml 475.0 ml Output Total 2500 ml Balance -1697.5 ml 397.5 ml 475.0 ml Exam Constitutional: non-verbal Respiratory: clear to auscultation, diminished breath sounds Cardiovascular: regular rate and rhythm Musculoskeletal: nl extremities to inspection Neurological: unresponsive Results Result Diagram: 08/08/16 0410 08/08/16 0410 Results 24 hrs Laboratory Tests Test 08/07/16 09:23 08/07/16 13:11 08/07/16 17:37 08/07/16 20:56 Bedside Glucose 136 195 144 157 Test 08/08/16 01:37 08/08/16 04:10 08/08/16 05:49 Bedside Glucose 161 157 Alanine Aminotransferase (ALT/SGPT) 93 H Albumin 4.0 Albumin/Globulin Ratio 0.95 Alkaline Phosphatase 211 H Anion Gap 38 H Aspartate Amino Transf (AST/SGOT) 63 H Basophils # 0.1 Basophils % 0.5 Blood Morphology Comment Blood Urea Nitrogen 118 H Calcium Level 8.0 L Carbon Dioxide Level 16 L Chloride Level 96 L Creatinine 10.54 H Direct Bilirubin 0.00 Eosinophils # 0.6 H Eosinophils % 3.9 Globulin 4.20 H Glucose Level 178 Hematocrit 32.8 L Hemoglobin 11.2 L Indirect Bilirubin 0.0 Lymphocytes # 1.9 Lymphocytes % 12.1 L Mean Corpuscular Hemoglobin 31.8 Mean Corpuscular Hemoglobin Concent 34.2 Mean Corpuscular Volume 92.8 Mean Platelet Volume 8.7 Monocytes # 1.1 H Monocytes % 7.2 Neutrophils # 11.9 H Neutrophils % 76.3 Nucleated Red Blood Cells # 0.0 Nucleated Red Blood Cells % 0.0 Platelet Count 446 H Potassium Level 5.4 H Red Blood Count 3.54 L Red Cell Distribution Width 15.0 H Sodium Level 145 H Total Bilirubin 0.0 L Total Protein 8.2 H Valproic Acid (Depakene) Level 60 White Blood Count 15.6 H Medications Medications Current Medications Norepinephrine/ Dextrose (Levophed/D5W) 500 ml @ 1.87 mls/hr TITRATE IV Last administered on 07/28/16 21:18; Admin Dose 11.25 MLS/HR; Start 07/28/16 at 04: 00 Labetalol HCl (Labetalol) 10 mg Q6H PRN IV sbp > 160 Last administered on 14:53; Admin Dose 10 MG; Start 07/28/16 at 00:30 Acetaminophen (Tylenol Supp) 650 mg Q6H PRN [place] PAIN AND OR ELEVATED TEMP Last administered on 07/31/16 17:30; Admin Dose 650 MG; Start 07/28/16 at 08:30 Miscellaneous Information 1 ea NOTE XX ; Start 07/28/16 at 09:00 Glucose (Glutose) 15 gm Q15M PRN PO DECREASED GLUCOSE; Start 07/28/16 at 09:00 Glucose (Glutose) 22.5 gm Q15M PRN PO DECREASED GLUCOSE; Start 07/28/16 at 09: 00 Dextrose (D50w Syringe) 25 ml Q15M PRN IV DECREASED GLUCOSE; Start 07/28/16 at 09:00 Dextrose (D50w Syringe) 50 ml Q15M PRN IV DECREASED GLUCOSE; Start 07/28/16 at 09:00 Glucagon (Glucagen) 1 mg Q15M PRN IM DECREASED GLUCOSE; Start 07/28/16 at 09:00 Glucose (Glutose) 15 gm Q15M PRN BUCCAL DECREASED GLUCOSE; Start 07/28/16 at 09 :00 IV Flush (NS 10 ml) 10 ml PRN PRN IV IV PROTOCOL; Start 07/29/16 at 17:00 Metoprolol Tartrate (Lopressor) 25 mg BID NGT Last administered on 08/07/16 20: 55; Admin Dose 25 MG; Start 07/31/16 at 09:00 Morphine Sulfate (morphine) 2 mg Q4 PRN IV PAIN Last administered on 08/02/16 00:07; Admin Dose 2 MG; Start 07/31/16 at 12:00 Pantoprazole (Protonix Iv) 40 mg DAILY@06 IV Last administered on 08/08/16 05: 55; Admin Dose 40 MG; Start 08/02/16 at 06:00 Lorazepam 1 mg 1 mg Q1H PRN IV SEIZURES Last administered on 08/06/16 17:31; Admin Dose 1 MG; Start 08/02/16 at 02:00 Piperacillin Sod/ Tazobactam Sod (Zosyn 2.25gm/ 50ml (Pmx)) 50 ml @ 100 mls/hr Q8 IVPB Last administered on 08/08/16 05:55; Admin Dose 100 MLS/HR; Start 08/02 at 22:00 Acetaminophen (Tylenol Liquid) 650 mg Q4H PRN NGT PAIN AND OR ELEVATED TEMP Last administered on 08/04/16 21:40; Admin Dose 650 MG; Start 08/03/16 at 00:00 Insulin Glargine (Lantus) 20 unit DAILY@08 SC Last administered on 08/07/16 09: 27; Admin Dose 20 UNIT; Start 08/03/16 at 12:00 Insulin Aspart NOVOLOG *MILD* ALGORI... Q4 SC Last administered on 08/08/16 05: 51; Admin Dose 1 UNIT; Start 08/03/16 at 13:00 Valproate Sodium/ Sodium Chloride (Depacon/NS) 57.5 ml @ 55 mls/hr Q6 IVPB Last administered on 08/08/16 05:55; Admin Dose 55 MLS/HR; Start 08/04/16 at 13: 00 Calcium Acetate 667 mg 667 mg Q6 NGT Last administered on 08/08/16 05:54; Admin Dose 667 MG; Start 08/05/16 at 08:30 Midazolam HCl 50 ml @ 0 mls/hr TITRATE IV Last administered on 08/05/16 22:38; Admin Dose 3 MLS/HR; Start 08/05/16 at 13:00 Fentanyl (Sublimaze) 100 ml @ 2.5 mls/hr TITRATE IV Last administered on 22:39; Admin Dose 10 MLS/HR; Start 08/05/16 at 16:00 Hydralazine HCl 10 mg 10 mg Q4H PRN IV ELEVATED SYSTOLIC BP Last administered on 08/07/16 21:04; Admin Dose 10 MG; Start 08/06/16 at 01:30 Vancomycin HCl 250 ml @ 125 mls/hr Q96H IVPB Last administered on 08/06/16 16: 32; Admin Dose 125 MLS/HR; Start 08/06/16 at 15:00 Levetiracetam/ Sodium Chloride (Keppra Iv/NS) 107.5 ml @ 420 mls/hr DAILY IVPB ; Start 08/08/16 at 09:00 ROSCOE LANGE MD Aug 08, 2016 07:18
[2016-08-08] MEDS: ARFORMOTEROL TARTRATE 15MCG/2 ML AMP NEB SCH ×2 (07:45→21:54)
[2016-08-08] MEDS: BUDESONIDE (NEB) 0.5MG/2ML AMP HHN SCH ×2 (07:45→20:21)
[2016-08-08 07:53] LABS: MAGNESIUM 3.2 mg/dl (1.7-2.5)
--- NOTE | 2016-08-08 08:04 | RADRPT ---
PROCEDURE: XR Chest 1 view. CLINICAL INDICATION: Shortness of breath, pneumonia, congestive heart failure. TECHNIQUE: AP views of the chest were obtained. COMPARISON: August 07, 2014 FINDINGS: The heart is large. Calcified atherosclerosis is noted in the aorta. Endotracheal and nasogastric t ubes are stable. The lungs are hypoinflated. No consolidations are identified. No pneumothorax is seen. Right-sided PICC line is stable. Osseous structures are intact. IMPRESSION: Cardiomegaly with calcified atherosclerosis in the aorta. Hypoinflated, clear lungs. RPTAT: AA .Hiram Burciaga MD, Date Time Electronically viewed and signed by .Hiram Burciaga MD, on 08/08/2016 08:04 .P/
[2016-08-08] MEDS: METOPROLOL 25 MG TAB NGT SCH ×2 (08:07→21:40)
[2016-08-08] MEDS: LEVETIRACETAM IV 750 MG in SOD CHLORIDE 0.9% 100 ML IVPB SCH (08:07)
[2016-08-08 08:12] LABS: PHOSPHORUS 13.4 mg/dl (2.5-4.9)
--- NOTE | 2016-08-08 08:13 | CONS ---
Date/Time of Note Date/Time of Note DATE: 08/08/16 TIME: 08:07 Assessment/Plan Assessment/Plan Additional Assessment/Plan Assessment and recommendation; 1. Patient admitted with cardiac arrest with very poor mental status likely due to anoxic encephalopathy. 2. Renal failure on hemodialysis. 3. Seizures currently well controlled on antiseizure medications. 4. Likely some element of aspiration pneumonia, currently on adequate antibiotic coverage. Continue current treatment. Add sodium bicarb 650 mg every 8 hours via NG tube for correction of metabolic acidosis. Obtain a blood gas on current ventilator settings. Prognosis is poor and will depend entirely upon adequate mental status recovery. Consultation Date/Type/Reason Admit Date/Time Jul 27, 2016 at 23:29 Initial Consult Date 07/28/16 Type of Consultation: pulmonary 24 HR Interval Summary Free Text/Dictation Patient condition remains critical. Remains completely unresponsive. No gross seizure activity noted. Remains orally intubated. General examination middle aged man, or intubated unresponsive. Currently in no distress. Exam/Review of Systems Vital Signs Vitals Vital Signs Date Time Temp Pulse Resp B/P Pulse Ox O2 Delivery O2 Flow Rate FiO2 08/08/16 07:00 106 19 170/81 97 Mechanical Ventilator 08/08/16 05:11 40 08/08/16 04:00 99.7 08/05/16 16:51 8.0 Intake and Output 08/07/16 08/07/16 08/08/16 15:00 23:00 07:00 Intake Total 802.5 ml 397.5 ml 475.0 ml Output Total 2500 ml Balance -1697.5 ml 397.5 ml 475.0 ml Exam HEENT examination; supple neck, no JVD. Pupils are small bilaterally. No neck masses. No lymphadenopathy. No neck bruits. Chest examination; diminished but clear breath sounds bilaterally. S1-S2 audible, no murmurs, regular rate and rhythm. Abdomen examination; soft, no organomegaly. Normal bowel sounds audible. Extremity examination; no peripheral edema. Pulses 1+ bilaterally. PHOTOGRAPHER STILL examination; patient remains completely unresponsive. Ventilator settings; assist control of 16, tidal volume 650, PEEP of 5, 40% FiO2. Results Result Diagram: 08/08/16 0410 08/08/16 0410 Results 24 hrs Laboratory Tests Test 08/07/16 09:23 08/07/16 13:11 08/07/16 17:37 08/07/16 20:56 Bedside Glucose 136 195 144 157 Test 08/08/16 01:37 08/08/16 04:10 08/08/16 05:49 08/08/16 08:03 Bedside Glucose 161 157 163 Alanine Aminotransferase (ALT/SGPT) 93 H Albumin 4.0 Albumin/Globulin Ratio 0.95 Alkaline Phosphatase 211 H Anion Gap 38 H Aspartate Amino Transf (AST/SGOT) 63 H Basophils # 0.1 Basophils % 0.5 Blood Morphology Comment Blood Urea Nitrogen 118 H Calcium Level 8.0 L Carbon Dioxide Level 16 L Chloride Level 96 L Creatinine 10.54 H Direct Bilirubin 0.00 Eosinophils # 0.6 H Eosinophils % 3.9 Globulin 4.20 H Glucose Level 178 Hematocrit 32.8 L Hemoglobin 11.2 L Indirect Bilirubin 0.0 Lymphocytes # 1.9 Lymphocytes % 12.1 L Magnesium Level 3.2 H Mean Corpuscular Hemoglobin 31.8 Mean Corpuscular Hemoglobin Concent 34.2 Mean Corpuscular Volume 92.8 Mean Platelet Volume 8.7 Monocytes # 1.1 H Monocytes % 7.2 Neutrophils # 11.9 H Neutrophils % 76.3 Nucleated Red Blood Cells # 0.0 Nucleated Red Blood Cells % 0.0 Phosphorus Level Pending Platelet Count 446 H Potassium Level 5.4 H Red Blood Count 3.54 L Red Cell Distribution Width 15.0 H Sodium Level 145 H Total Bilirubin 0.0 L Total Protein 8.2 H Valproic Acid (Depakene) Level 60 White Blood Count 15.6 H Medications Medications Current Medications Norepinephrine/ Dextrose (Levophed/D5W) 500 ml @ 1.87 mls/hr TITRATE IV Last administered on 07/28/16 21:18; Admin Dose 11.25 MLS/HR; Start 07/28/16 at 04: 00 Labetalol HCl (Labetalol) 10 mg Q6H PRN IV sbp > 160 Last administered on 14:53; Admin Dose 10 MG; Start 07/28/16 at 00:30 Acetaminophen (Tylenol Supp) 650 mg Q6H PRN [place] PAIN AND OR ELEVATED TEMP Last administered on 07/31/16 17:30; Admin Dose 650 MG; Start 07/28/16 at 08:30 Miscellaneous Information 1 ea NOTE XX ; Start 07/28/16 at 09:00 Glucose (Glutose) 15 gm Q15M PRN PO DECREASED GLUCOSE; Start 07/28/16 at 09:00 Glucose (Glutose) 22.5 gm Q15M PRN PO DECREASED GLUCOSE; Start 07/28/16 at 09: 00 Dextrose (D50w Syringe) 25 ml Q15M PRN IV DECREASED GLUCOSE; Start 07/28/16 at 09:00 Dextrose (D50w Syringe) 50 ml Q15M PRN IV DECREASED GLUCOSE; Start 07/28/16 at 09:00 Glucagon (Glucagen) 1 mg Q15M PRN IM DECREASED GLUCOSE; Start 07/28/16 at 09:00 Glucose (Glutose) 15 gm Q15M PRN BUCCAL DECREASED GLUCOSE; Start 07/28/16 at 09 :00 IV Flush (NS 10 ml) 10 ml PRN PRN IV IV PROTOCOL; Start 07/29/16 at 17:00 Metoprolol Tartrate (Lopressor) 25 mg BID NGT Last administered on 08/07/16 20: 55; Admin Dose 25 MG; Start 07/31/16 at 09:00 Morphine Sulfate (morphine) 2 mg Q4 PRN IV PAIN Last administered on 08/02/16 00:07; Admin Dose 2 MG; Start 07/31/16 at 12:00 Pantoprazole (Protonix Iv) 40 mg DAILY@06 IV Last administered on 08/08/16 05: 55; Admin Dose 40 MG; Start 08/02/16 at 06:00 Lorazepam 1 mg 1 mg Q1H PRN IV SEIZURES Last administered on 08/06/16 17:31; Admin Dose 1 MG; Start 08/02/16 at 02:00 Piperacillin Sod/ Tazobactam Sod (Zosyn 2.25gm/ 50ml (Pmx)) 50 ml @ 100 mls/hr Q8 IVPB Last administered on 08/08/16 05:55; Admin Dose 100 MLS/HR; Start 08/02 at 22:00 Acetaminophen (Tylenol Liquid) 650 mg Q4H PRN NGT PAIN AND OR ELEVATED TEMP Last administered on 08/04/16 21:40; Admin Dose 650 MG; Start 08/03/16 at 00:00 Insulin Glargine (Lantus) 20 unit DAILY@08 SC Last administered on 2/5/17at 09: 27; Admin Dose 20 UNIT; Start 08/03/16 at 12:00 Insulin Aspart NOVOLOG *MILD* ALGORI... Q4 SC Last administered on 08/08/16 05: 51; Admin Dose 1 UNIT; Start 08/03/16 at 13:00 Valproate Sodium/ Sodium Chloride (Depacon/NS) 57.5 ml @ 55 mls/hr Q6 IVPB Last administered on 08/08/16 05:55; Admin Dose 55 MLS/HR; Start 08/04/16 at 13: 00 Calcium Acetate 667 mg 667 mg Q6 NGT Last administered on 08/08/16 05:54; Admin Dose 667 MG; Start 08/05/16 at 08:30 Midazolam HCl 50 ml @ 0 mls/hr TITRATE IV Last administered on 08/05/16 22:38; Admin Dose 3 MLS/HR; Start 08/05/16 at 13:00 Fentanyl (Sublimaze) 100 ml @ 2.5 mls/hr TITRATE IV Last administered on 22:39; Admin Dose 10 MLS/HR; Start 08/05/16 at 16:00 Hydralazine HCl 10 mg 10 mg Q4H PRN IV ELEVATED SYSTOLIC BP Last administered on 08/07/16 21:04; Admin Dose 10 MG; Start 08/06/16 at 01:30 Vancomycin HCl 250 ml @ 125 mls/hr Q96H IVPB Last administered on 08/06/16 16: 32; Admin Dose 125 MLS/HR; Start 08/06/16 at 15:00 Levetiracetam/ Sodium Chloride (Keppra Iv/NS) 107.5 ml @ 420 mls/hr DAILY IVPB ; Start 08/08/16 at 09:00 AMOR RODRIGUES Aug 08, 2016 08:13
[2016-08-08] MEDS: INSULIN GLARGINE [LANtus] 3 ML PEN SC SCH (08:14)
--- NOTE | 2016-08-08 09:14 | PN ---
Date/Time of Note Date/Time of Note DATE: 08/08/16 TIME: 09:12 Assessment/Plan VTE Prophylaxis VTE Prophylaxis Intervention: heparin Lines/Catheters IV Catheter Type (from Nrs): Dialysis Cath Urinary Cath still in place: No Assessment/Plan Assessment/Plan 1. PEA s/p cardiac arrest , etiology PEA due to hypoxia -CT Brain shows no CVA or signs of anoxic injury but repeat EEG is now suggesting brain -plan is for Apnea test -Neuro on the case - 2. ESRD on HD - on serial Hemodialysis due to high BUN 3. SIRS with elevated white count and fever- R Lung opacity noted and may be Asp PNA -cont cefepime/vanc 4. VDRF -pulm consult appreciated 5. Hypotension - cardiac shock vs septic shock - resolved 6. CHF - acute - diastolic vs systolic dysfunction - fluid to be removed via dialysis - monitor I/O's 7. Metabolic with respiratory acidosis - 2/2 to cardiac arrest - s/p bicarb- resolved 8. Hx of hypertension - hold medications as patient is hypotensive 9. Type II DM-A1C at 7.3 -cont Lantus, NISS 10. Asthma - currently on vent, continue with breathing treatments 11. Smoking abuse - patient was to be counseled on cessation if extubated and alert 12. Obesity - consider nutrition consult once extubated 13. GI ppx - protonix 14. DVT ppx - hepari Subjective 24 Hr Interval Summary Free Text/Dictation pt remaiined intubatd, not waking up off sedation, plan for HD today, Exam/Review of Systems Vital Signs Vitals Vital Signs Date Time Temp Pulse Resp B/P Pulse Ox O2 Delivery O2 Flow Rate FiO2 08/08/16 08:00 105 08/08/16 07:00 19 170/81 97 Mechanical Ventilator 08/08/16 05:11 40 08/08/16 04:00 99.7 08/05/16 16:51 8.0 Intake and Output 08/07/16 08/07/16 08/08/16 15:00 23:00 07:00 Intake Total 802.5 ml 397.5 ml 475.0 ml Output Total 2500 ml Balance -1697.5 ml 397.5 ml 475.0 ml Exam Constitutional: non-verbal Respiratory: bilateral crackles +, no wheezing Cardiovascular: regular rate and rhythm Musculoskeletal: nl extremities to inspection Neurological: unresponsive Results Result Diagram: 08/08/16 0410 08/08/16 0410 Results 24 hrs Laboratory Tests Test 08/07/16 09:23 08/07/16 13:11 08/07/16 17:37 08/07/16 20:56 Bedside Glucose 136 195 144 157 Test 08/08/16 01:37 08/08/16 04:10 08/08/16 05:49 08/08/16 08:03 Bedside Glucose 161 157 163 Alanine Aminotransferase (ALT/SGPT) 93 H Albumin 4.0 Albumin/Globulin Ratio 0.95 Alkaline Phosphatase 211 H Anion Gap 38 H Aspartate Amino Transf (AST/SGOT) 63 H Basophils # 0.1 Basophils % 0.5 Blood Morphology Comment Blood Urea Nitrogen 118 H Calcium Level 8.0 L Carbon Dioxide Level 16 L Chloride Level 96 L Creatinine 10.54 H Direct Bilirubin 0.00 Eosinophils # 0.6 H Eosinophils % 3.9 Globulin 4.20 H Glucose Level 178 Hematocrit 32.8 L Hemoglobin 11.2 L Indirect Bilirubin 0.0 Lymphocytes # 1.9 Lymphocytes % 12.1 L Magnesium Level 3.2 H Mean Corpuscular Hemoglobin 31.8 Mean Corpuscular Hemoglobin Concent 34.2 Mean Corpuscular Volume 92.8 Mean Platelet Volume 8.7 Monocytes # 1.1 H Monocytes % 7.2 Neutrophils # 11.9 H Neutrophils % 76.3 Nucleated Red Blood Cells # 0.0 Nucleated Red Blood Cells % 0.0 Phosphorus Level 13.4 H Platelet Count 446 H Potassium Level 5.4 H Red Blood Count 3.54 L Red Cell Distribution Width 15.0 H Sodium Level 145 H Total Bilirubin 0.0 L Total Protein 8.2 H Valproic Acid (Depakene) Level 60 White Blood Count 15.6 H Medications Medications Current Medications Norepinephrine/ Dextrose (Levophed/D5W) 500 ml @ 1.87 mls/hr TITRATE IV Last administered on 07/28/16 21:18; Admin Dose 11.25 MLS/HR; Start 07/28/16 at 04: 00 Labetalol HCl (Labetalol) 10 mg Q6H PRN IV sbp > 160 Last administered on 14:53; Admin Dose 10 MG; Start 07/28/16 at 00:30 Acetaminophen (Tylenol Supp) [address] PAIN AND OR ELEVATED TEMP Last administered on 07/31/16 17:30; Admin Dose 650 MG; Start 07/28/16 at 08:30 Miscellaneous Information 1 ea NOTE XX ; Start 07/28/16 at 09:00 Glucose (Glutose) 15 gm Q15M PRN PO DECREASED GLUCOSE; Start 07/28/16 at 09:00 Glucose (Glutose) 22.5 gm Q15M PRN PO DECREASED GLUCOSE; Start 07/28/16 at 09: 00 Dextrose (D50w Syringe) 25 ml Q15M PRN IV DECREASED GLUCOSE; Start 07/28/16 at 09:00 Dextrose (D50w Syringe) 50 ml Q15M PRN IV DECREASED GLUCOSE; Start 07/28/16 at 09:00 Glucagon (Glucagen) 1 mg Q15M PRN IM DECREASED GLUCOSE; Start 07/28/16 at 09:00 Glucose (Glutose) 15 gm Q15M PRN BUCCAL DECREASED GLUCOSE; Start 07/28/16 at 09 :00 IV Flush (NS 10 ml) 10 ml PRN PRN IV IV PROTOCOL; Start 07/29/16 at 17:00 Metoprolol Tartrate (Lopressor) 25 mg BID NGT Last administered on 08/08/16 08: 07; Admin Dose 25 MG; Start 07/31/16 at 09:00 Morphine Sulfate (morphine) 2 mg Q4 PRN IV PAIN Last administered on 08/02/16 00:07; Admin Dose 2 MG; Start 07/31/16 at 12:00 Pantoprazole (Protonix Iv) 40 mg DAILY@06 IV Last administered on 08/08/16 05: 55; Admin Dose 40 MG; Start 08/02/16 at 06:00 Lorazepam 1 mg 1 mg Q1H PRN IV SEIZURES Last administered on 08/06/16 17:31; Admin Dose 1 MG; Start 08/02/16 at 02:00 Piperacillin Sod/ Tazobactam Sod (Zosyn 2.25gm/ 50ml (Pmx)) 50 ml @ 100 mls/hr Q8 IVPB Last administered on 08/08/16 05:55; Admin Dose 100 MLS/HR; Start 08/02 at 22:00 Acetaminophen (Tylenol Liquid) 650 mg Q4H PRN NGT PAIN AND OR ELEVATED TEMP Last administered on 08/04/16 21:40; Admin Dose 650 MG; Start 08/03/16 at 00:00 Insulin Glargine (Lantus) 20 unit DAILY@08 SC Last administered on 08/08/16 08: 14; Admin Dose 20 UNIT; Start 08/03/16 at 12:00 Insulin Aspart NOVOLOG *MILD* ALGORI... Q4 SC Last administered on 08/08/16 08: 13; Admin Dose 1 UNIT; Start 08/03/16 at 13:00 Valproate Sodium/ Sodium Chloride (Depacon/NS) 57.5 ml @ 55 mls/hr Q6 IVPB Last administered on 08/08/16 05:55; Admin Dose 55 MLS/HR; Start 08/04/16 at 13: 00 Calcium Acetate 667 mg 667 mg Q6 NGT Last administered on 08/08/16 05:54; Admin Dose 667 MG; Start 08/05/16 at 08:30 Midazolam HCl 50 ml @ 0 mls/hr TITRATE IV Last administered on 08/05/16 22:38; Admin Dose 3 MLS/HR; Start 08/05/16 at 13:00 Fentanyl (Sublimaze) 100 ml @ 2.5 mls/hr TITRATE IV Last administered on 22:39; Admin Dose 10 MLS/HR; Start 08/05/16 at 16:00 Hydralazine HCl 10 mg 10 mg Q4H PRN IV ELEVATED SYSTOLIC BP Last administered on 08/07/16 21:04; Admin Dose 10 MG; Start 08/06/16 at 01:30 Vancomycin HCl 250 ml @ 125 mls/hr Q96H IVPB Last administered on 08/06/16 16: 32; Admin Dose 125 MLS/HR; Start 08/06/16 at 15:00 Levetiracetam/ Sodium Chloride (Keppra Iv/NS) 107.5 ml @ 420 mls/hr DAILY IVPB Last administered on 08/08/16 08:07; Admin Dose 420 MLS/HR; Start 08/08/16 at 09:00 Sodium Bicarbonate (Sodium Bicarbonate Tab) 650 mg Q8 PO ; Start 08/08/16 at 14: 00 NINFA PACK MD Aug 08, 2016 09:14
[2016-08-08 12:03] LABS: AADO2 Arterial 130.2 mmHg (7.0-24.0); Allen Test ACCEPTAB; Arterial Base Excess -8.2 mmol/L (-3.0-3); Arterial COHb 0.3 % (0.0-3.0); Arterial Fraction of Oxyhgb 96.4 % (93.0-99.0); Arterial HCO3 17.6 mmol/L (22.0-26.0); Arterial MetHb 0.2 % (0.0-1.5); MODE VENT - AC
[2016-08-08] MEDS: NA BICARBONATE 650 MG TAB PO SCH ×2 (13:13→21:40)
[2016-08-08] MEDS ORDERED: HEPARIN 1000 UNITS/ML 10 ML INJ ONE (13:50)
--- NOTE | 2016-08-08 14:30 | OPR ---
Date/Time of Note Date/Time of Note DATE: 08/08/16 TIME: 14:25 Operative Report Free Text/Dictation DATE OF OPERATION: 08/08/2016 SURGEON: Abilio Banks MD PREOPERATIVE DIAGNOSIS: ESRD, malfunctioning right groin catheter POSTOPERATIVE DIAGNOSIS: same ANESTHESIA: Local BLOOD LOSS: minimal COMPLICATIONS: None. ACCESS: Right common femoral vein INDICATIONS: This is a 65 year-old male with ESRD requiring dialysis with a malfunctioning catheter. Patient and family have been informed of the alternatives, risks, and benefits. Risks including but not limited to bleeding, thrombosis, embolization, myocardial infarction, , device malfunction, infection, pneumothorax, nephrotoxicity and patient has agreed to proceed. PROCEDURE: 1. Exchange of Right common femoral vein non-tunneled hemodialysis catheter DESCRIPTION: The patient was in supine position in her ICU bed. Bed was placed in slight Trendelenburg position and the groin was prepped and draped with sterile technique. The central catheter was flushed with heparin to ensure function of each port. Landmarks were identified and the skin entry site was chosen using ultrasound guidance. The skin And subcutaneous tissue were anesthetized with 1% lidocaine. The brown hub was used to pass the guidewire. The guidewire was passed easily and at this point the previous catheter was removed. The dilator was placed over the wire and the tract gently dilated. The new catheter was fed over the wire, ensuring the wire exited from the port before advancing the catheter. The catheter was inserted to the desired depth and the wire removed. Each port was aspirated to ensure adequate blood flow and then flushed with heparinized saline solution. The catheter was secured in place with a 2-0 nylon suture and a sterile dressing was applied. The patient tolerated the procedure well and was in stable condition. All instrument, sponge and needle counts were correct 2. ABILIO BANKS MD Aug 08, 2016 14:30
--- NOTE | 2016-08-08 15:36 | CONS ---
Date/Time of Note Date/Time of Note DATE: 08/08/16 TIME: 15:32 Assessment/Plan Assessment/Plan Chief Complaint/Hosp Course Cardiac arrest: PEA by history and likely respiratory/hypoxic mediated. Cardiac cath without significant CAD, EF preserved. Anoxic brain injury: EEG suggestive of brain but breathing over vent and passed apnea trial Acute on chronic diastolic heart failure: EF preserved. Receiving HD ESRD on HD: will need HD after cath Seizures HTN -continue metoprolol -HD per nephrology -neurology f/u Problems: Consultation Date/Type/Reason Admit Date/Time Jul 27, 2016 at 23:29 Initial Consult Date 07/28/16 Type of Consultation: Cardiology 24 HR Interval Summary Free Text/Dictation No o/n events. Still unresponsive Exam/Review of Systems Vital Signs Vitals Vital Signs Date Time Temp Pulse Resp B/P Pulse Ox O2 Delivery O2 Flow Rate FiO2 08/08/16 14:30 93 17 152/85 96 Mechanical Ventilator 08/08/16 11:30 99.3 08/08/16 11:00 40 08/05/16 16:51 8.0 Intake and Output 08/07/16 08/07/16 08/08/16 15:00 23:00 07:00 Intake Total 802.5 ml 397.5 ml 505.0 ml Output Total 2500 ml Balance -1697.5 ml 397.5 ml 505.0 ml Exam Constitutional: No alert Head: atraumatic, normocephalic ENMT: intubated Neck: No jvd (unable to assess) Respiratory: diminished breath sounds, No clear to auscultation Cardiovascular: regular rate and rhythm, No edema, No systolic murmur Gastrointestinal: soft, No distended Neurological: No nl mental status Results Result Diagram: 08/08/16 0410 08/08/16 0410 Results 24 hrs Laboratory Tests Test 08/07/16 17:37 08/07/16 20:56 08/08/16 01:37 08/08/16 04:10 Bedside Glucose 144 157 161 Alanine Aminotransferase (ALT/SGPT) 93 H Albumin 4.0 Albumin/Globulin Ratio 0.95 Alkaline Phosphatase 211 H Anion Gap 38 H Aspartate Amino Transf (AST/SGOT) 63 H Basophils # 0.1 Basophils % 0.5 Blood Morphology Comment Blood Urea Nitrogen 118 H Calcium Level 8.0 L Carbon Dioxide Level 16 L Chloride Level 96 L Creatinine 10.54 H Direct Bilirubin 0.00 Eosinophils # 0.6 H Eosinophils % 3.9 Globulin 4.20 H Glucose Level 178 Hematocrit 32.8 L Hemoglobin 11.2 L Indirect Bilirubin 0.0 Lymphocytes # 1.9 Lymphocytes % 12.1 L Magnesium Level 3.2 H Mean Corpuscular Hemoglobin 31.8 Mean Corpuscular Hemoglobin Concent 34.2 Mean Corpuscular Volume 92.8 Mean Platelet Volume 8.7 Monocytes # 1.1 H Monocytes % 7.2 Neutrophils # 11.9 H Neutrophils % 76.3 Nucleated Red Blood Cells # 0.0 Nucleated Red Blood Cells % 0.0 Phosphorus Level 13.4 H Platelet Count 446 H Potassium Level 5.4 H Red Blood Count 3.54 L Red Cell Distribution Width 15.0 H Sodium Level 145 H Total Bilirubin 0.0 L Total Protein 8.2 H Valproic Acid (Depakene) Level 60 White Blood Count 15.6 H Test 08/08/16 05:49 08/08/16 08:03 08/08/16 11:19 08/08/16 11:21 Bedside Glucose 157 163 161 Arterial Blood HCO3 17.6 L Arterial Blood Base Excess -8.2 L Arterial Blood Oxygen Saturation 96.9 Osiel Test ACCEPTAB Arterial Blood Gas Puncture Site Right Radial Arterial Blood Carboxyhemoglobin 0.3 Arterial Blood Date Drawn 08/08/2016 11:42:12 AM Arterial Blood Methemoglobin 0.2 Arterial Blood pCO2 (Temp correct) 37.4 Arterial Blood pH (Temp corrected) 7.291 *L Arterial Blood pO2 (Temp corrected) 112.0 H Blood Gas A-a O2 Differential 130.2 H Blood Gas Actual Respiration Rate 18 Blood Gas Critical Value Read Back P SENA DURAND Blood Gas Low PEEP Setting 5.0 Blood Gas Modality VENT - AC Blood Gas Notified Time 08/08/2016 12:03:11 PM Blood Gas Notified Whom JLD Blood Gas Respiration Rate 16.0 Blood Gas Specimen Source Blood arterial Blood Gas Temperature 37.0 Blood Gas Tidal Volume 650.0 FiO2 40.0 Oxyhemoglobin Percent 96.4 Total Hemoglobin 12.0 Medications Medications Current Medications Norepinephrine/ Dextrose (Levophed/D5W) 500 ml @ 1.87 mls/hr TITRATE IV Last administered on 07/28/16t 21:18; Admin Dose 11.25 MLS/HR; Start 07/28/16 at 04: 00 Labetalol HCl (Labetalol) 10 mg Q6H PRN IV sbp > 160 Last administered on 14:53; Admin Dose 10 MG; Start 07/28/16 at 00:30 Acetaminophen (Tylenol Supp) 650 mg Q6H PRN PA PAIN AND OR ELEVATED TEMP Last administered on 07/31/16 17:30; Admin Dose 650 MG; Start 07/28/16 at 08:30 Miscellaneous Information 1 ea NOTE XX ; Start 07/28/16 at 09:00 Glucose (Glutose) 15 gm Q15M PRN PO DECREASED GLUCOSE; Start 07/28/16 at 09:00 Glucose (Glutose) 22.5 gm Q15M PRN PO DECREASED GLUCOSE; Start 07/28/16 at 09: 00 Dextrose (D50w Syringe) 25 ml Q15M PRN IV DECREASED GLUCOSE; Start 07/28/16 at 09:00 Dextrose (D50w Syringe) 50 ml Q15M PRN IV DECREASED GLUCOSE; Start 07/28/16 at 09:00 Glucagon (Glucagen) 1 mg Q15M PRN IM DECREASED GLUCOSE; Start 07/28/16 at 09:00 Glucose (Glutose) 15 gm Q15M PRN BUCCAL DECREASED GLUCOSE; Start 07/28/16 at 09 :00 IV Flush (NS 10 ml) 10 ml PRN PRN IV IV PROTOCOL; Start 07/29/16 at 17:00 Metoprolol Tartrate (Lopressor) 25 mg BID NGT Last administered on 08/08/16 08: 07; Admin Dose 25 MG; Start 07/31/16 at 09:00 Morphine Sulfate (morphine) 2 mg Q4 PRN IV PAIN Last administered on 08/02/16 00:07; Admin Dose 2 MG; Start 07/31/16 at 12:00 Pantoprazole (Protonix Iv) 40 mg DAILY@06 IV Last administered on 08/08/16 05: 55; Admin Dose 40 MG; Start 08/02/16 at 06:00 Lorazepam 1 mg 1 mg Q1H PRN IV SEIZURES Last administered on 08/06/16 17:31; Admin Dose 1 MG; Start 08/02/16 at 02:00 Piperacillin Sod/ Tazobactam Sod (Zosyn 2.25gm/ 50ml (Pmx)) 50 ml @ 100 mls/hr Q8 IVPB Last administered on 08/08/16 13:14; Admin Dose 100 MLS/HR; Start 08/02 at 22:00 Acetaminophen (Tylenol Liquid) 650 mg Q4H PRN NGT PAIN AND OR ELEVATED TEMP Last administered on 08/04/16 21:40; Admin Dose 650 MG; Start 08/03/16 at 00:00 Insulin Glargine (Lantus) 20 unit DAILY@08 SC Last administered on 08/08/16 08: 14; Admin Dose 20 UNIT; Start 08/03/16 at 12:00 Insulin Aspart NOVOLOG *MILD* ALGORI... Q4 SC Last administered on 08/08/16 11: 28; Admin Dose 1 UNIT; Start 08/03/16 at 13:00 Valproate Sodium/ Sodium Chloride (Depacon/NS) 57.5 ml @ 55 mls/hr Q6 IVPB Last administered on 08/08/16 11:22; Admin Dose 55 MLS/HR; Start 08/04/16 at 13: 00 Calcium Acetate 667 mg 667 mg Q6 NGT Last administered on 08/08/16 11:22; Admin Dose 667 MG; Start 08/05/16 at 08:30 Midazolam HCl 50 ml @ 0 mls/hr TITRATE IV Last administered on 08/05/16 22:38; Admin Dose 3 MLS/HR; Start 08/05/16 at 13:00 Fentanyl (Sublimaze) 100 ml @ 2.5 mls/hr TITRATE IV Last administered on 22:39; Admin Dose 10 MLS/HR; Start 08/05/16 at 16:00 Hydralazine HCl 10 mg 10 mg Q4H PRN IV ELEVATED SYSTOLIC BP Last administered on 08/07/16 21:04; Admin Dose 10 MG; Start 08/06/16 at 01:30 Vancomycin HCl 250 ml @ 125 mls/hr Q96H IVPB Last administered on 08/06/16 16: 32; Admin Dose 125 MLS/HR; Start 08/06/16 at 15:00 Levetiracetam/ Sodium Chloride (Keppra Iv/NS) 107.5 ml @ 420 mls/hr DAILY IVPB Last administered on 08/08/16 08:07; Admin Dose 420 MLS/HR; Start 08/08/16 at 09:00 Sodium Bicarbonate (Sodium Bicarbonate Tab) 650 mg Q8 PO Last administered on 13:13; Admin Dose 650 MG; Start 08/08/16 at 14:00 Heparin Sodium (Porcine) (Heparin (1000 Units/ml)) 5,000 unit ONCE ONCE CATHETER Last administered on 08/08/16 14:21; Admin Dose 5,000 UNIT; Start 08/08 at 18:30; Stop 08/08/16 at 18:31 JACKSON CUNNINGHAM Aug 08, 2016 15:35
[2016-08-08] MEDS ORDERED: HEPARIN 1000 UNITS/ML 10 ML INJ CATHETER ONE (18:30)
[2016-08-09] VITALS (59 sets, daily range): BP systolic 94–237; BP diastolic 52–210; PULSE 80–120; RESP 12–28
[2016-08-09] MEDS: CALCIUM ACETATE 667 MG CAP NGT SCH ×5 (00:46→23:53)
[2016-08-09] MEDS: VALPROATE INJ 750 MG in SOD CHLORIDE 0.9% 50 ML IVPB SCH ×5 (00:46→23:53)
[2016-08-09] MEDS: hydrALAzine 20 MG INJ IV PRN ×2 (00:47→18:20)
[2016-08-09] MEDS: INSULIN ASPART [NOVOLOG] 3 ML PEN SC SCH ×6 (00:56→21:44)
[2016-08-09] MEDS: IPRATROPIUM (HFA) 12.9 GM INHALER INH SCH ×6 (01:50→22:17)
[2016-08-09] MEDS: ALBUTEROL HFA 8 GM INHALER INH SCH ×6 (01:50→22:18)
[2016-08-09 04:56] LABS: BASOPHIL # 0.1 10^3/ul (0.0-0.1); BASOPHILS % 0.5 % (0.0-2.0); EOSINOPHILS # 0.2 10^3/ul (0.0-0.5); EOSINOPHILS % 1.1 % (0.0-7.0); HEMATOCRIT 32.3 % (42.0-52.0); LYMPHOCYTES # 1.8 10^3/ul (0.8-2.9); LYMPHOCYTES % 9.9 % (15.0-51.0); MEAN CORPUSCULAR HEMOGLOBIN 31.4 pg (29.0-33.0); MEAN CORPUSCULAR HGB CONC 34.1 g/dl (32.0-37.0); MEAN CORPUSCULAR VOLUME 92.2 fl (82.0-101.0); MEAN PLATELET VOLUME 8.7 fl (7.4-10.4); MONOCYTE # 1.1 10^3/ul (0.3-0.9); MONOCYTES % 6.1 % (0.0-11.0); NEUTROPHIL # 14.8 10^3/ul (1.6-7.5); NEUTROPHILS % 82.4 % (39.0-77.0); PLATELET COUNT 428 10^3/UL (140-440); RED CELL DISTRIBUTION WIDTH 15.1 % (11.5-14.5)
[2016-08-09 05:03] LABS: INR 1.1; PROTIME 14.2 Sec (12.2-14.2); PT RATIO 1.1
[2016-08-09 05:13] LABS: PARTIAL THROMBOPLASTIN TIME 26.5 Sec (25.0-35.0)
[2016-08-09 05:17] LABS: ALBUMIN 3.6 g/dl (3.3-4.9)
[2016-08-09 05:18] LABS: POTASSIUM 4.6 mmol/L (3.5-5.1)
[2016-08-09 05:20] LABS: ALBUMIN/GLOBULIN RATIO 0.92; TOTAL PROTEIN 7.5 g/dl (6.1-8.1)
[2016-08-09 05:21] LABS: CALCIUM 7.7 mg/dl (8.4-10.2)
[2016-08-09 05:28] LABS: CREATININE 9.2 mg/dl (0.61-1.24)
[2016-08-09] MEDS: PANTOPRAZOLE 40 MG INJ IV SCH (05:28)
[2016-08-09] MEDS: NA BICARBONATE 650 MG TAB PO SCH ×3 (05:28→21:30)
[2016-08-09 05:29] LABS: CONDITION 1; LH ANALYZER COMMENTS 1
[2016-08-09] MEDS: PIPER-TAZO 2.25 GM (PMX) 50 ML IVPB SCH ×3 (05:29→21:30)
[2016-08-09 05:53] LABS: AADO2 Arterial 135.8 mmHg (7.0-24.0); Allen Test ACCEPTAB; Arterial Base Excess -2.3 mmol/L (-3.0-3); Arterial COHb 0.1 % (0.0-3.0); Arterial Fraction of Oxyhgb 96.5 % (93.0-99.0); Arterial HCO3 22.8 mmol/L (22.0-26.0); Arterial MetHb 0.2 % (0.0-1.5); Arterial Total Hemglobin 13.9 g/dl (12.0-18.0); MODE VENT - AC
--- NOTE | 2016-08-09 07:50 | CONS ---
Date/Time of Note Date/Time of Note DATE: 08/09/16 TIME: 07:46 Assessment/Plan Assessment/Plan Additional Assessment/Plan Assessment and recommendations; 1. Patient admitted with cardiac arrest underwent prolonged CPR. Next 2. Severe anoxic enthesopathy. Next 3. Hypertension 4. Diabetes 5. End-stage renal disease next 6. Possibly some element of aspiration pneumonia; currently on adequate antibiotic regimen. The current supportive care. I did have a discussion with the patient's son at bedside and answered all his questions. Prognosis remains poor and is dependent entirely upon adequate mental status recovery. Consultation Date/Type/Reason Admit Date/Time Jul 27, 2016 at 23:29 Initial Consult Date 07/28/16 Type of Consultation: Pulmonary/critical care 24 HR Interval Summary Free Text/Dictation Patient condition remains critical. Remains completely unresponsive to any stimuli. Currently or intubated, on mechanical ventilation. No overt seizure activity reported. General examination; middle aged man, orally intubated unresponsive. Currently in no distress. Exam/Review of Systems Vital Signs Vitals Vital Signs Date Time Temp Pulse Resp B/P Pulse Ox O2 Delivery O2 Flow Rate FiO2 08/09/16 07:00 102 17 160/78 97 Mechanical Ventilator 08/09/16 05:49 40 08/09/16 04:00 99.7 08/05/16 16:51 8.0 Intake and Output 08/08/16 08/08/16 08/09/16 15:00 23:00 07:00 Intake Total 560.0 ml 2887.5 ml 505.0 ml Output Total 3000 ml Balance 560.0 ml -112.5 ml 505.0 ml Exam Current ventilator settings; assist control of 16, tidal volume 500, PEEP of 5, 30% FiO2. HEENT examination; supple neck, no JVD. Pupils are dilated nonreactive to light. Doll's eye movements are negative. Orally intubated. No thyromegaly. No lymphadenopathy. Next Chest examination; diminished but clear breath sounds bilaterally. S1-S2 audible, no murmurs. Regular rate and rhythm. Abdomen examination; soft, nondistended, bowel sounds audible. No organomegaly. There is no scrotal or penile edema. Extremity examination; no peripheral edema. Pulses 1+ bilaterally. UROLOGIST PHYSICIAN examination; patient is completely unresponsive. Results Result Diagram: 08/09/16 0355 08/09/16 0355 Results 24 hrs Laboratory Tests Test 2/6/17 08:03 08/08/16 11:19 08/08/16 11:21 08/08/16 16:32 Bedside Glucose 163 161 177 Arterial Blood HCO3 17.6 L Arterial Blood Base Excess -8.2 L Arterial Blood Oxygen Saturation 96.9 Osiel Test ACCEPTAB Arterial Blood Gas Puncture Site Right Radial Arterial Blood Carboxyhemoglobin 0.3 Arterial Blood Date Drawn 08/08/2016 11:42:12 AM Arterial Blood Methemoglobin 0.2 Arterial Blood pCO2 (Temp correct) 37.4 Arterial Blood pH (Temp corrected) 7.291 *L Arterial Blood pO2 (Temp corrected) 112.0 H Blood Gas A-a O2 Differential 130.2 H Blood Gas Actual Respiration Rate 18 Blood Gas Critical Value Read Back P SENA DURAND Blood Gas Low PEEP Setting 5.0 Blood Gas Modality VENT - AC Blood Gas Notified Time 08/08/2016 12:03:11 PM Blood Gas Notified Whom JLD Blood Gas Respiration Rate 16.0 Blood Gas Specimen Source Blood arterial Blood Gas Temperature 37.0 Blood Gas Tidal Volume 650.0 FiO2 40.0 Oxyhemoglobin Percent 96.4 Total Hemoglobin 12.0 Test 08/08/16 21:44 08/09/16 00:52 08/09/16 03:55 08/09/16 05:00 Bedside Glucose 240 H 199 Activated Partial Thromboplast Time 26.5 Alanine Aminotransferase (ALT/SGPT) 73 H Albumin 3.6 Albumin/Globulin Ratio 0.92 Alkaline Phosphatase 169 H Anion Gap 32 H Aspartate Amino Transf (AST/SGOT) 54 H Basophils # 0.1 Basophils % 0.5 Blood Morphology Comment Blood Urea Nitrogen 112 H Calcium Level 7.7 L Carbon Dioxide Level 22 Chloride Level 95 L Creatinine 9.20 H Direct Bilirubin 0.00 Eosinophils # 0.2 Eosinophils % 1.1 Globulin 3.90 H Glucose Level 167 Hematocrit 32.3 L Hemoglobin 11.0 L INR International Normalized Ratio 1.10 Indirect Bilirubin 0.0 Lymphocytes # 1.8 Lymphocytes % 9.9 L Mean Corpuscular Hemoglobin 31.4 Mean Corpuscular Hemoglobin Concent 34.1 Mean Corpuscular Volume 92.2 Mean Platelet Volume 8.7 Monocytes # 1.1 H Monocytes % 6.1 Neutrophils # 14.8 H Neutrophils % 82.4 H Nucleated Red Blood Cells # 0.0 Nucleated Red Blood Cells % 0.0 Platelet Count 428 Potassium Level 4.6 Prothrombin Time 14.2 Prothrombin Time Ratio 1.1 Red Blood Count 3.50 L Red Cell Distribution Width 15.1 H Sodium Level 144 Total Bilirubin 0.0 L Total Protein 7.5 White Blood Count 18.0 H Arterial Blood HCO3 22.8 Arterial Blood Base Excess -2.3 Arterial Blood Oxygen Saturation 96.8 Osiel Test ACCEPTAB Arterial Blood Gas Puncture Site Right Radial Arterial Blood Carboxyhemoglobin 0.1 Arterial Blood Date Drawn 08/09/2016 5:28:45 AM Arterial Blood Methemoglobin 0.2 Arterial Blood pCO2 (Temp correct) 40.5 Arterial Blood pH (Temp corrected) 7.368 Arterial Blood pO2 (Temp corrected) 102.8 H Blood Gas A-a O2 Differential 135.8 H Blood Gas Actual Respiration Rate 16 Blood Gas Inspiratory Pressure 35.0 Blood Gas Low PEEP Setting 5.0 Blood Gas Modality VENT - AC Blood Gas Notified Time 08/09/2016 5:53:13 AM Blood Gas Notified Whom RTR Blood Gas Respiration Rate 16.0 Blood Gas Specimen Source Blood arterial Blood Gas Temperature 37.0 Blood Gas Tidal Volume 650.0 FiO2 40.0 Oxyhemoglobin Percent 96.5 Total Hemoglobin 13.9 Test 08/09/16 05:31 Bedside Glucose 180 Medications Medications Current Medications Norepinephrine/ Dextrose (Levophed/D5W) 500 ml @ 1.87 mls/hr TITRATE IV Last administered on 07/28/16 21:18; Admin Dose 11.25 MLS/HR; Start 07/28/16 at 04: 00 Labetalol HCl (Labetalol) 10 mg Q6H PRN IV sbp > 160 Last administered on 14:53; Admin Dose 10 MG; Start 07/28/16 at 00:30 Acetaminophen (Tylenol Supp) 650 mg Q6H PRN [place] PAIN AND OR ELEVATED TEMP Last administered on 07/31/16 17:30; Admin Dose 650 MG; Start 07/28/16 at 08:30 Miscellaneous Information 1 ea NOTE XX ; Start 07/28/16 at 09:00 Glucose (Glutose) 15 gm Q15M PRN PO DECREASED GLUCOSE; Start 07/28/16 at 09:00 Glucose (Glutose) 22.5 gm Q15M PRN PO DECREASED GLUCOSE; Start 07/28/16 at 09: 00 Dextrose (D50w Syringe) 25 ml Q15M PRN IV DECREASED GLUCOSE; Start 07/28/16 at 09:00 Dextrose (D50w Syringe) 50 ml Q15M PRN IV DECREASED GLUCOSE; Start 07/28/16 at 09:00 Glucagon (Glucagen) 1 mg Q15M PRN IM DECREASED GLUCOSE; Start 07/28/16 at 09:00 Glucose (Glutose) 15 gm Q15M PRN BUCCAL DECREASED GLUCOSE; Start 07/28/16 at 09 :00 IV Flush (NS 10 ml) 10 ml PRN PRN IV IV PROTOCOL; Start 07/29/16 at 17:00 Metoprolol Tartrate (Lopressor) 25 mg BID NGT Last administered on 08/08/16 21: 40; Admin Dose 25 MG; Start 07/31/16 at 09:00 Morphine Sulfate (morphine) 2 mg Q4 PRN IV PAIN Last administered on 08/02/16 00:07; Admin Dose 2 MG; Start 07/31/16 at 12:00 Pantoprazole (Protonix Iv) 40 mg DAILY@06 IV Last administered on 08/09/16 05: 28; Admin Dose 40 MG; Start 08/02/16 at 06:00 Lorazepam 1 mg 1 mg Q1H PRN IV SEIZURES Last administered on 08/06/16 17:31; Admin Dose 1 MG; Start 08/02/16 at 02:00 Piperacillin Sod/ Tazobactam Sod (Zosyn 2.25gm/ 50ml (Pmx)) 50 ml @ 100 mls/hr Q8 IVPB Last administered on 08/09/16 05:29; Admin Dose 100 MLS/HR; Start 08/02 at 22:00 Acetaminophen (Tylenol Liquid) 650 mg Q4H PRN NGT PAIN AND OR ELEVATED TEMP Last administered on 08/04/16 21:40; Admin Dose 650 MG; Start 08/03/16 at 00:00 Insulin Glargine (Lantus) 20 unit DAILY@08 SC Last administered on 08/08/16 08: 14; Admin Dose 20 UNIT; Start 08/03/16 at 12:00 Insulin Aspart NOVOLOG *MILD* ALGORI... Q4 SC Last administered on 08/09/16 05: 39; Admin Dose 1 UNIT; Start 08/03/16 at 13:00 Valproate Sodium/ Sodium Chloride (Depacon/NS) 57.5 ml @ 55 mls/hr Q6 IVPB Last administered on 08/09/16 05:21; Admin Dose 55 MLS/HR; Start 08/04/16 at 13: 00 Calcium Acetate 667 mg 667 mg Q6 NGT Last administered on 08/09/16 05:29; Admin Dose 667 MG; Start 08/05/16 at 08:30 Midazolam HCl 50 ml @ 0 mls/hr TITRATE IV Last administered on 08/05/16 22:38; Admin Dose 3 MLS/HR; Start 08/05/16 at 13:00 Fentanyl (Sublimaze) 100 ml @ 2.5 mls/hr TITRATE IV Last administered on 22:39; Admin Dose 10 MLS/HR; Start 08/05/16 at 16:00 Hydralazine HCl 10 mg 10 mg Q4H PRN IV ELEVATED SYSTOLIC BP Last administered on 08/09/16 00:47; Admin Dose 10 MG; Start 08/06/16 at 01:30 Vancomycin HCl 250 ml @ 125 mls/hr Q96H IVPB Last administered on 08/06/16 16: 32; Admin Dose 125 MLS/HR; Start 08/06/16 at 15:00 Levetiracetam/ Sodium Chloride (Keppra Iv/NS) 107.5 ml @ 420 mls/hr DAILY IVPB Last administered on 08/08/16 08:07; Admin Dose 420 MLS/HR; Start 08/08/16 at 09:00 Sodium Bicarbonate (Sodium Bicarbonate Tab) 650 mg Q8 PO Last administered on 05:28; Admin Dose 650 MG; Start 08/08/16 at 14:00 AMOR RODRIGUES Aug 09, 2016 07:50
[2016-08-09] MEDS: BUDESONIDE (NEB) 0.5MG/2ML AMP HHN SCH ×2 (08:18→19:41)
[2016-08-09] MEDS: ARFORMOTEROL TARTRATE 15MCG/2 ML AMP NEB SCH ×2 (08:27→19:44)
--- NOTE | 2016-08-09 08:28 | RADRPT ---
PROCEDURE: XR Chest. CLINICAL INDICATION: Respiratory failure TECHNIQUE: An AP view of the chest was obtained. COMPARISON: Chest x-ray dated 08/08/2016 FINDINGS: The endotracheal tube tip is approximately 2.3 cm above the chino. The tip of the enteric tube ex tends below the left diaphragm. There is a right upper extremity PICC line with tip obscured by ove rlying monitor leads. Lung volumes are low. There is prominence of the interstitial and central pulmonary vascular gómez ngs. No pleural effusion or pneumothorax is seen. The cardiomediastinal silhouette is mildly enl arged . Calcifications are seen within the aortic arch. The osseous structures demonstrate senescen t changes. IMPRESSION: 1. Findings suggestive of pulmonary vascular congestion. No significant interval change. 2. Low lung volumes. 3. Mild cardiomegaly and aortic atherosclerosis. 4. Tubes and lines, as described above. RPTAT: HH .Mona Paredes MD, MD Date Time Electronically viewed and signed by .Mona Paredes MD, MD on 08/09/2016 08:27 .G/
--- NOTE | 2016-08-09 08:31 | CONS ---
Date/Time of Note Date/Time of Note DATE: 08/09/16 TIME: 08:25 Assessment/Plan Assessment/Plan Chief Complaint/Hosp Course #1 end-stage renal disease , this patient has ESRD due to diabetic nephropathy and has been on maintenance hemodialysis for about 1 year. He had dialysis yesterday . He had a new R femoral vascath placed yesterday .His BUN is high and I will order hemodialysis for today . will order labs for tomorrow . #2 the patient is status post a cardiac arrest at home #3 altered level of consciousness, probable anoxic encephalopathy. EEG done last week was abnormal consistent with brain . #4 insulin-dependent diabetes mellitus #5 seizures #6 ventilator dependent respiratory failure , h/o COPD and pneumonia on CXR . #7 hyperphosphatemia , calcium acetate started today . Problems: Consultation Date/Type/Reason Admit Date/Time Jul 27, 2016 at 23:29 Initial Consult Date 07/28/16 Type of Consultation: Pulmonary/critical care 24 HR Interval Summary Free Text/Dictation patient is in the ICU , unresponsive , intubated on a ventilator . Subjective hx not possible: pt non-verbal Exam/Review of Systems Vital Signs Vitals Vital Signs Date Time Temp Pulse Resp B/P Pulse Ox O2 Delivery O2 Flow Rate FiO2 08/09/16 07:00 102 17 160/78 97 Mechanical Ventilator 08/09/16 05:49 40 08/09/16 04:00 99.7 08/05/16 16:51 8.0 Intake and Output 08/08/16 08/08/16 08/09/16 14:59 22:59 06:59 Intake Total 560.0 ml 2887.5 ml 505.0 ml Output Total 3000 ml Balance 560.0 ml -112.5 ml 505.0 ml Exam Constitutional: non-verbal Respiratory: clear to auscultation, diminished breath sounds Cardiovascular: regular rate and rhythm Gastrointestinal: soft Musculoskeletal: nl extremities to inspection Results Result Diagram: 08/09/16 0355 08/09/16 0355 Results 24 hrs Laboratory Tests Test 08/08/16 11:19 08/08/16 11:21 08/08/16 16:32 08/08/16 21:44 Arterial Blood HCO3 17.6 L Arterial Blood Base Excess -8.2 L Arterial Blood Oxygen Saturation 96.9 Osiel Test ACCEPTAB Arterial Blood Gas Puncture Site Right Radial Arterial Blood Carboxyhemoglobin 0.3 Arterial Blood Date Drawn 08/08/2016 11:42:12 AM Arterial Blood Methemoglobin 0.2 Arterial Blood pCO2 (Temp correct) 37.4 Arterial Blood pH (Temp corrected) 7.291 *L Arterial Blood pO2 (Temp corrected) 112.0 H Blood Gas A-a O2 Differential 130.2 H Blood Gas Actual Respiration Rate 18 Blood Gas Critical Value Read Back P SENA DURAND Blood Gas Low PEEP Setting 5.0 Blood Gas Modality VENT - AC Blood Gas Notified Time 08/08/2016 12:03:11 PM Blood Gas Notified Whom JLD Blood Gas Respiration Rate 16.0 Blood Gas Specimen Source Blood arterial Blood Gas Temperature 37.0 Blood Gas Tidal Volume 650.0 FiO2 40.0 Oxyhemoglobin Percent 96.4 Total Hemoglobin 12.0 Bedside Glucose 161 177 240 H Test 08/09/16 00:52 08/09/16 03:55 08/09/16 05:00 08/09/16 05:31 Bedside Glucose 199 180 Activated Partial Thromboplast Time 26.5 Alanine Aminotransferase (ALT/SGPT) 73 H Albumin 3.6 Albumin/Globulin Ratio 0.92 Alkaline Phosphatase 169 H Anion Gap 32 H Aspartate Amino Transf (AST/SGOT) 54 H Basophils # 0.1 Basophils % 0.5 Blood Morphology Comment Blood Urea Nitrogen 112 H Calcium Level 7.7 L Carbon Dioxide Level 22 Chloride Level 95 L Creatinine 9.20 H Direct Bilirubin 0.00 Eosinophils # 0.2 Eosinophils % 1.1 Globulin 3.90 H Glucose Level 167 Hematocrit 32.3 L Hemoglobin 11.0 L INR International Normalized Ratio 1.10 Indirect Bilirubin 0.0 Lymphocytes # 1.8 Lymphocytes % 9.9 L Mean Corpuscular Hemoglobin 31.4 Mean Corpuscular Hemoglobin Concent 34.1 Mean Corpuscular Volume 92.2 Mean Platelet Volume 8.7 Monocytes # 1.1 H Monocytes % 6.1 Neutrophils # 14.8 H Neutrophils % 82.4 H Nucleated Red Blood Cells # 0.0 Nucleated Red Blood Cells % 0.0 Platelet Count 428 Potassium Level 4.6 Prothrombin Time 14.2 Prothrombin Time Ratio 1.1 Red Blood Count 3.50 L Red Cell Distribution Width 15.1 H Sodium Level 144 Total Bilirubin 0.0 L Total Protein 7.5 White Blood Count 18.0 H Arterial Blood HCO3 22.8 Arterial Blood Base Excess -2.3 Arterial Blood Oxygen Saturation 96.8 Osiel Test ACCEPTAB Arterial Blood Gas Puncture Site Right Radial Arterial Blood Carboxyhemoglobin 0.1 Arterial Blood Date Drawn 08/09/2016 5:28:45 AM Arterial Blood Methemoglobin 0.2 Arterial Blood pCO2 (Temp correct) 40.5 Arterial Blood pH (Temp corrected) 7.368 Arterial Blood pO2 (Temp corrected) 102.8 H Blood Gas A-a O2 Differential 135.8 H Blood Gas Actual Respiration Rate 16 Blood Gas Inspiratory Pressure 35.0 Blood Gas Low PEEP Setting 5.0 Blood Gas Modality VENT - AC Blood Gas Notified Time 08/09/2016 5:53:13 AM Blood Gas Notified Whom RTR Blood Gas Respiration Rate 16.0 Blood Gas Specimen Source Blood arterial Blood Gas Temperature 37.0 Blood Gas Tidal Volume 650.0 FiO2 40.0 Oxyhemoglobin Percent 96.5 Total Hemoglobin 13.9 Medications Medications Current Medications Norepinephrine/ Dextrose (Levophed/D5W) 500 ml @ 1.87 mls/hr TITRATE IV Last administered on 07/28/16 21:18; Admin Dose 11.25 MLS/HR; Start 07/28/16 at 04: 00 Labetalol HCl (Labetalol) 10 mg Q6H PRN IV sbp > 160 Last administered on 14:53; Admin Dose 10 MG; Start 07/28/16 at 00:30 Acetaminophen (Tylenol Supp) 650 mg Q6H PRN [place] PAIN AND OR ELEVATED TEMP Last administered on 07/31/16 17:30; Admin Dose 650 MG; Start 07/28/16 at 08:30 Miscellaneous Information 1 ea NOTE XX ; Start 07/28/16 at 09:00 Glucose (Glutose) 15 gm Q15M PRN PO DECREASED GLUCOSE; Start 07/28/16 at 09:00 Glucose (Glutose) 22.5 gm Q15M PRN PO DECREASED GLUCOSE; Start 07/28/16 at 09: 00 Dextrose (D50w Syringe) 25 ml Q15M PRN IV DECREASED GLUCOSE; Start 07/28/16 at 09:00 Dextrose (D50w Syringe) 50 ml Q15M PRN IV DECREASED GLUCOSE; Start 07/28/16 at 09:00 Glucagon (Glucagen) 1 mg Q15M PRN IM DECREASED GLUCOSE; Start 07/28/16 at 09:00 Glucose (Glutose) 15 gm Q15M PRN BUCCAL DECREASED GLUCOSE; Start 07/28/16 at 09 :00 IV Flush (NS 10 ml) 10 ml PRN PRN IV IV PROTOCOL; Start 07/29/16 at 17:00 Metoprolol Tartrate (Lopressor) 25 mg BID NGT Last administered on 08/08/16 21: 40; Admin Dose 25 MG; Start 07/31/16 at 09:00 Morphine Sulfate (morphine) 2 mg Q4 PRN IV PAIN Last administered on 08/02/16 00:07; Admin Dose 2 MG; Start 07/31/16 at 12:00 Pantoprazole (Protonix Iv) 40 mg DAILY@06 IV Last administered on 08/09/16 05: 28; Admin Dose 40 MG; Start 08/02/16 at 06:00 Lorazepam 1 mg 1 mg Q1H PRN IV SEIZURES Last administered on 08/06/16 17:31; Admin Dose 1 MG; Start 08/02/16 at 02:00 Piperacillin Sod/ Tazobactam Sod (Zosyn 2.25gm/ 50ml (Pmx)) 50 ml @ 100 mls/hr Q8 IVPB Last administered on 08/09/16 05:29; Admin Dose 100 MLS/HR; Start 08/02 at 22:00 Acetaminophen (Tylenol Liquid) 650 mg Q4H PRN NGT PAIN AND OR ELEVATED TEMP Last administered on 08/04/16 21:40; Admin Dose 650 MG; Start 08/03/16 at 00:00 Insulin Glargine (Lantus) 20 unit DAILY@08 SC Last administered on 08/08/16 08: 14; Admin Dose 20 UNIT; Start 08/03/16 at 12:00 Insulin Aspart NOVOLOG *MILD* ALGORI... Q4 SC Last administered on 08/09/16 05: 39; Admin Dose 1 UNIT; Start 08/03/16 at 13:00 Valproate Sodium/ Sodium Chloride (Depacon/NS) 57.5 ml @ 55 mls/hr Q6 IVPB Last administered on 08/09/16 05:21; Admin Dose 55 MLS/HR; Start 08/04/16 at 13: 00 Calcium Acetate 667 mg 667 mg Q6 NGT Last administered on 08/09/16 05:29; Admin Dose 667 MG; Start 08/05/16 at 08:30 Midazolam HCl 50 ml @ 0 mls/hr TITRATE IV Last administered on 08/05/16 22:38; Admin Dose 3 MLS/HR; Start 08/05/16 at 13:00 Fentanyl (Sublimaze) 100 ml @ 2.5 mls/hr TITRATE IV Last administered on 22:39; Admin Dose 10 MLS/HR; Start 08/05/16 at 16:00 Hydralazine HCl 10 mg 10 mg Q4H PRN IV ELEVATED SYSTOLIC BP Last administered on 08/09/16 00:47; Admin Dose 10 MG; Start 08/06/16 at 01:30 Vancomycin HCl 250 ml @ 125 mls/hr Q96H IVPB Last administered on 08/06/16 16: 32; Admin Dose 125 MLS/HR; Start 08/06/16 at 15:00 Levetiracetam/ Sodium Chloride (Keppra Iv/NS) 107.5 ml @ 420 mls/hr DAILY IVPB Last administered on 08/08/16 08:07; Admin Dose 420 MLS/HR; Start 08/08/16 at 09:00 Sodium Bicarbonate (Sodium Bicarbonate Tab) 650 mg Q8 PO Last administered on 05:28; Admin Dose 650 MG; Start 08/08/16 at 14:00 ROSCOE LANGE MD Aug 09, 2016 08:30
[2016-08-09] MEDS: INSULIN GLARGINE [LANtus] 3 ML PEN SC SCH (08:43)
--- NOTE | 2016-08-09 08:51 | PN ---
Date/Time of Note Date/Time of Note DATE: 08/09/16 TIME: 08:49 Assessment/Plan VTE Prophylaxis VTE Prophylaxis Intervention: heparin Lines/Catheters IV Catheter Type (from Nrsg): [place] Cath. Central line still needed: Yes (dialysis access ) Urinary Cath still in place: No Reason Cath still needed: other (indicate) Assessment/Plan Assessment/Plan 1. PEA s/p cardiac arrest , etiology PEA due to hypoxia -CT Brain shows no CVA or signs of anoxic injury but repeat EEG is now suggesting brain -plan is for Apnea test -Neuro on the case - 2. ESRD on HD - on serial Hemodialysis due to high BUN- plan for HD today, catheter has been changed recently 3. SIRS with elevated white count and fever- R Lung opacity noted and may be Asp PNA -cont cefepime/vanc 4. VDRF -pulm consult appreciated 5. Hypotension - cardiac shock vs septic shock - resolved 6. CHF - acute - diastolic vs systolic dysfunction - fluid to be removed via dialysis - monitor I/O's 7. Metabolic with respiratory acidosis - 2/2 to cardiac arrest - s/p bicarb- resolved 8. Hx of hypertension - hold medications as patient is hypotensive 9. Type II DM-A1C at 7.3 -cont Lantus, NISS 10. Asthma - currently on vent, continue with breathing treatments 11. Smoking abuse - patient was to be counseled on cessation if extubated and alert 12. Obesity - consider nutrition consult once extubated 13. GI ppx - protonix 14. DVT ppx - hepari Subjective 24 Hr Interval Summary Free Text/Dictation pt remains intubated, plan for HD today, on Ventilator, afebrile Exam/Review of Systems Vital Signs Vitals Vital Signs Date Time Temp Pulse Resp B/P Pulse Ox O2 Delivery O2 Flow Rate FiO2 08/09/16 07:00 102 17 160/78 97 Mechanical Ventilator 08/09/16 05:49 40 08/09/16 04:00 99.7 08/05/16 16:51 8.0 Intake and Output 08/08/16 08/08/16 08/09/16 15:00 23:00 07:00 Intake Total 560.0 ml 2887.5 ml 505.0 ml Output Total 3000 ml Balance 560.0 ml -112.5 ml 505.0 ml Exam Constitutional: non-verbal Respiratory: bilateral crackles +, no wheezing Cardiovascular: regular rate and rhythm Musculoskeletal: nl extremities to inspection Neurological: unresponsive Results Result Diagram: 08/09/16 0355 08/09/16 0355 Results 24 hrs Laboratory Tests Test 08/08/16 11:19 08/08/16 11:21 08/08/16 16:32 08/08/16 21:44 Arterial Blood HCO3 17.6 L Arterial Blood Base Excess -8.2 L Arterial Blood Oxygen Saturation 96.9 Osiel Test ACCEPTAB Arterial Blood Gas Puncture Site Right Radial Arterial Blood Carboxyhemoglobin 0.3 Arterial Blood Date Drawn 08/08/2016 11:42:12 AM Arterial Blood Methemoglobin 0.2 Arterial Blood pCO2 (Temp correct) 37.4 Arterial Blood pH (Temp corrected) 7.291 *L Arterial Blood pO2 (Temp corrected) 112.0 H Blood Gas A-a O2 Differential 130.2 H Blood Gas Actual Respiration Rate 18 Blood Gas Critical Value Read Back P SENA DURAND Blood Gas Low PEEP Setting 5.0 Blood Gas Modality VENT - AC Blood Gas Notified Time 08/08/2016 12:03:11 PM Blood Gas Notified Whom JLD Blood Gas Respiration Rate 16.0 Blood Gas Specimen Source Blood arterial Blood Gas Temperature 37.0 Blood Gas Tidal Volume 650.0 FiO2 40.0 Oxyhemoglobin Percent 96.4 Total Hemoglobin 12.0 Bedside Glucose 161 177 240 H Test 08/09/16 00:52 08/09/16 03:55 08/09/16 05:00 08/09/16 05:31 Bedside Glucose 199 180 Activated Partial Thromboplast Time 26.5 Alanine Aminotransferase (ALT/SGPT) 73 H Albumin 3.6 Albumin/Globulin Ratio 0.92 Alkaline Phosphatase 169 H Anion Gap 32 H Aspartate Amino Transf (AST/SGOT) 54 H Basophils # 0.1 Basophils % 0.5 Blood Morphology Comment Blood Urea Nitrogen 112 H Calcium Level 7.7 L Carbon Dioxide Level 22 Chloride Level 95 L Creatinine 9.20 H Direct Bilirubin 0.00 Eosinophils # 0.2 Eosinophils % 1.1 Globulin 3.90 H Glucose Level 167 Hematocrit 32.3 L Hemoglobin 11.0 L INR International Normalized Ratio 1.10 Indirect Bilirubin 0.0 Lymphocytes # 1.8 Lymphocytes % 9.9 L Mean Corpuscular Hemoglobin 31.4 Mean Corpuscular Hemoglobin Concent 34.1 Mean Corpuscular Volume 92.2 Mean Platelet Volume 8.7 Monocytes # 1.1 H Monocytes % 6.1 Neutrophils # 14.8 H Neutrophils % 82.4 H Nucleated Red Blood Cells # 0.0 Nucleated Red Blood Cells % 0.0 Platelet Count 428 Potassium Level 4.6 Prothrombin Time 14.2 Prothrombin Time Ratio 1.1 Red Blood Count 3.50 L Red Cell Distribution Width 15.1 H Sodium Level 144 Total Bilirubin 0.0 L Total Protein 7.5 White Blood Count 18.0 H Arterial Blood HCO3 22.8 Arterial Blood Base Excess -2.3 Arterial Blood Oxygen Saturation 96.8 Osiel Test ACCEPTAB Arterial Blood Gas Puncture Site Right Radial Arterial Blood Carboxyhemoglobin 0.1 Arterial Blood Date Drawn 08/09/2016 5:28:45 AM Arterial Blood Methemoglobin 0.2 Arterial Blood pCO2 (Temp correct) 40.5 Arterial Blood pH (Temp corrected) 7.368 Arterial Blood pO2 (Temp corrected) 102.8 H Blood Gas A-a O2 Differential 135.8 H Blood Gas Actual Respiration Rate 16 Blood Gas Inspiratory Pressure 35.0 Blood Gas Low PEEP Setting 5.0 Blood Gas Modality VENT - AC Blood Gas Notified Time 08/09/2016 5:53:13 AM Blood Gas Notified Whom RTR Blood Gas Respiration Rate 16.0 Blood Gas Specimen Source Blood arterial Blood Gas Temperature 37.0 Blood Gas Tidal Volume 650.0 FiO2 40.0 Oxyhemoglobin Percent 96.5 Total Hemoglobin 13.9 Medications Medications Current Medications Norepinephrine/ Dextrose (Levophed/D5W) 500 ml @ 1.87 mls/hr TITRATE IV Last administered on 07/28/16 21:18; Admin Dose 11.25 MLS/HR; Start 07/28/16 at 04: 00 Labetalol HCl (Labetalol) 10 mg Q6H PRN IV sbp > 160 Last administered on 14:53; Admin Dose 10 MG; Start 07/28/16 at 00:30 Acetaminophen (Tylenol Supp) 650 mg Q6H PRN [place] PAIN AND OR ELEVATED TEMP Last administered on 07/31/16 17:30; Admin Dose 650 MG; Start 07/28/16 at 08:30 Miscellaneous Information 1 ea NOTE XX ; Start 07/28/16 at 09:00 Glucose (Glutose) 15 gm Q15M PRN PO DECREASED GLUCOSE; Start 07/28/16 at 09:00 Glucose (Glutose) 22.5 gm Q15M PRN PO DECREASED GLUCOSE; Start 07/28/16 at 09: 00 Dextrose (D50w Syringe) 25 ml Q15M PRN IV DECREASED GLUCOSE; Start 07/28/16 at 09:00 Dextrose (D50w Syringe) 50 ml Q15M PRN IV DECREASED GLUCOSE; Start 07/28/16 at 09:00 Glucagon (Glucagen) 1 mg Q15M PRN IM DECREASED GLUCOSE; Start 07/28/16 at 09:00 Glucose (Glutose) 15 gm Q15M PRN BUCCAL DECREASED GLUCOSE; Start 07/28/16 at 09 :00 IV Flush (NS 10 ml) 10 ml PRN PRN IV IV PROTOCOL; Start 07/29/16 at 17:00 Metoprolol Tartrate (Lopressor) 25 mg BID NGT Last administered on 08/08/16 21: 40; Admin Dose 25 MG; Start 07/31/16 at 09:00 Morphine Sulfate (morphine) 2 mg Q4 PRN IV PAIN Last administered on 08/02/16 00:07; Admin Dose 2 MG; Start 07/31/16 at 12:00 Pantoprazole (Protonix Iv) 40 mg DAILY@06 IV Last administered on 08/09/16 05: 28; Admin Dose 40 MG; Start 08/02/16 at 06:00 Lorazepam 1 mg 1 mg Q1H PRN IV SEIZURES Last administered on 08/06/16 17:31; Admin Dose 1 MG; Start 08/02/16 at 02:00 Piperacillin Sod/ Tazobactam Sod (Zosyn 2.25gm/ 50ml (Pmx)) 50 ml @ 100 mls/hr Q8 IVPB Last administered on 08/09/16 05:29; Admin Dose 100 MLS/HR; Start 08/02 at 22:00 Acetaminophen (Tylenol Liquid) 650 mg Q4H PRN NGT PAIN AND OR ELEVATED TEMP Last administered on 08/04/16 21:40; Admin Dose 650 MG; Start 08/03/16 at 00:00 Insulin Glargine (Lantus) 20 unit DAILY@08 SC Last administered on 08/09/16 08: 43; Admin Dose 20 UNIT; Start 08/03/16 at 12:00 Insulin Aspart NOVOLOG *MILD* ALGORI... Q4 SC Last administered on 08/09/16 05: 39; Admin Dose 1 UNIT; Start 08/03/16 at 13:00 Valproate Sodium/ Sodium Chloride (Depacon/NS) 57.5 ml @ 55 mls/hr Q6 IVPB Last administered on 08/09/16 05:21; Admin Dose 55 MLS/HR; Start 08/04/16 at 13: 00 Calcium Acetate 667 mg 667 mg Q6 NGT Last administered on 08/09/16 05:29; Admin Dose 667 MG; Start 08/05/16 at 08:30 Midazolam HCl 50 ml @ 0 mls/hr TITRATE IV Last administered on 08/05/16 22:38; Admin Dose 3 MLS/HR; Start 08/05/16 at 13:00 Fentanyl (Sublimaze) 100 ml @ 2.5 mls/hr TITRATE IV Last administered on 22:39; Admin Dose 10 MLS/HR; Start 08/05/16 at 16:00 Hydralazine HCl 10 mg 10 mg Q4H PRN IV ELEVATED SYSTOLIC BP Last administered on 08/09/16 00:47; Admin Dose 10 MG; Start 08/06/16 at 01:30 Vancomycin HCl 250 ml @ 125 mls/hr Q96H IVPB Last administered on 08/06/16 16: 32; Admin Dose 125 MLS/HR; Start 08/06/16 at 15:00 Levetiracetam/ Sodium Chloride (Keppra Iv/NS) 107.5 ml @ 420 mls/hr DAILY IVPB Last administered on 08/08/16 08:07; Admin Dose 420 MLS/HR; Start 08/08/16 at 09:00 Sodium Bicarbonate (Sodium Bicarbonate Tab) 650 mg Q8 PO Last administered on 05:28; Admin Dose 650 MG; Start 08/08/16 at 14:00 NINFA PACK MD Aug 09, 2016 08:51
--- NOTE | 2016-08-09 09:15 | CONS ---
Date/Time of Note Date/Time of Note DATE: 08/09/16 TIME: 09:13 Assessment/Plan Assessment/Plan Chief Complaint/Hosp Course Cardiac arrest: PEA by history and likely respiratory/hypoxic mediated. Cardiac cath without significant CAD, EF preserved. Anoxic brain injury: EEG suggestive of brain but breathing over vent and passed apnea trial. Now off sedation for several days Acute on chronic diastolic heart failure: EF preserved. Receiving HD ESRD on HD Seizures HTN -continue metoprolol -HD per nephrology -neurology f/u Problems: Consultation Date/Type/Reason Admit Date/Time Jul 27, 2016 at 23:29 Initial Consult Date 07/28/16 Type of Consultation: Cardiology 24 HR Interval Summary Free Text/Dictation No o/n events. Family at bedside notes that he was opening his eyes yesterday. Exam/Review of Systems Vital Signs Vitals Vital Signs Date Time Temp Pulse Resp B/P Pulse Ox O2 Delivery O2 Flow Rate FiO2 08/09/16 09:00 96 16 158/82 98 Mechanical Ventilator 08/09/16 08:00 98.3 08/09/16 05:49 40 08/05/16 16:51 8.0 Intake and Output 08/08/16 08/08/16 08/09/16 15:00 23:00 07:00 Intake Total 560.0 ml 2887.5 ml 505.0 ml Output Total 3000 ml Balance 560.0 ml -112.5 ml 505.0 ml Results Result Diagram: 08/09/16 0355 08/09/16 0355 Results 24 hrs Laboratory Tests Test 08/08/16 11:19 08/08/16 11:21 08/08/16 16:32 08/08/16 21:44 Arterial Blood HCO3 17.6 L Arterial Blood Base Excess -8.2 L Arterial Blood Oxygen Saturation 96.9 Osiel Test ACCEPTAB Arterial Blood Gas Puncture Site Right Radial Arterial Blood Carboxyhemoglobin 0.3 Arterial Blood Date Drawn 08/08/2016 11:42:12 AM Arterial Blood Methemoglobin 0.2 Arterial Blood pCO2 (Temp correct) 37.4 Arterial Blood pH (Temp corrected) 7.291 *L Arterial Blood pO2 (Temp corrected) 112.0 H Blood Gas A-a O2 Differential 130.2 H Blood Gas Actual Respiration Rate 18 Blood Gas Critical Value Read Back P SENA DURAND Blood Gas Low PEEP Setting 5.0 Blood Gas Modality VENT - AC Blood Gas Notified Time 08/08/2016 12:03:11 PM Blood Gas Notified Whom JLD Blood Gas Respiration Rate 16.0 Blood Gas Specimen Source Blood arterial Blood Gas Temperature 37.0 Blood Gas Tidal Volume 650.0 FiO2 40.0 Oxyhemoglobin Percent 96.4 Total Hemoglobin 12.0 Bedside Glucose 161 177 240 H Test 08/09/16 00:52 08/09/16 03:55 08/09/16 05:00 08/09/16 05:31 Bedside Glucose 199 180 Activated Partial Thromboplast Time 26.5 Alanine Aminotransferase (ALT/SGPT) 73 H Albumin 3.6 Albumin/Globulin Ratio 0.92 Alkaline Phosphatase 169 H Anion Gap 32 H Aspartate Amino Transf (AST/SGOT) 54 H Basophils # 0.1 Basophils % 0.5 Blood Morphology Comment Blood Urea Nitrogen 112 H Calcium Level 7.7 L Carbon Dioxide Level 22 Chloride Level 95 L Creatinine 9.20 H Direct Bilirubin 0.00 Eosinophils # 0.2 Eosinophils % 1.1 Globulin 3.90 H Glucose Level 167 Hematocrit 32.3 L Hemoglobin 11.0 L INR International Normalized Ratio 1.10 Indirect Bilirubin 0.0 Lymphocytes # 1.8 Lymphocytes % 9.9 L Mean Corpuscular Hemoglobin 31.4 Mean Corpuscular Hemoglobin Concent 34.1 Mean Corpuscular Volume 92.2 Mean Platelet Volume 8.7 Monocytes # 1.1 H Monocytes % 6.1 Neutrophils # 14.8 H Neutrophils % 82.4 H Nucleated Red Blood Cells # 0.0 Nucleated Red Blood Cells % 0.0 Platelet Count 428 Potassium Level 4.6 Prothrombin Time 14.2 Prothrombin Time Ratio 1.1 Red Blood Count 3.50 L Red Cell Distribution Width 15.1 H Sodium Level 144 Total Bilirubin 0.0 L Total Protein 7.5 White Blood Count 18.0 H Arterial Blood HCO3 22.8 Arterial Blood Base Excess -2.3 Arterial Blood Oxygen Saturation 96.8 Osiel Test ACCEPTAB Arterial Blood Gas Puncture Site Right Radial Arterial Blood Carboxyhemoglobin 0.1 Arterial Blood Date Drawn 08/09/2016 5:28:45 AM Arterial Blood Methemoglobin 0.2 Arterial Blood pCO2 (Temp correct) 40.5 Arterial Blood pH (Temp corrected) 7.368 Arterial Blood pO2 (Temp corrected) 102.8 H Blood Gas A-a O2 Differential 135.8 H Blood Gas Actual Respiration Rate 16 Blood Gas Inspiratory Pressure 35.0 Blood Gas Low PEEP Setting 5.0 Blood Gas Modality VENT - AC Blood Gas Notified Time 08/09/2016 5:53:13 AM Blood Gas Notified Whom RTR Blood Gas Respiration Rate 16.0 Blood Gas Specimen Source Blood arterial Blood Gas Temperature 37.0 Blood Gas Tidal Volume 650.0 FiO2 40.0 Oxyhemoglobin Percent 96.5 Total Hemoglobin 13.9 Medications Medications Current Medications Norepinephrine/ Dextrose (Levophed/D5W) 500 ml @ 1.87 mls/hr TITRATE IV Last administered on 07/28/16 21:18; Admin Dose 11.25 MLS/HR; Start 07/28/16 at 04: 00 Labetalol HCl (Labetalol) 10 mg Q6H PRN IV sbp > 160 Last administered on 14:53; Admin Dose 10 MG; Start 07/28/16 at 00:30 Acetaminophen (Tylenol Supp) 650 mg Q6H PRN [place] PAIN AND OR ELEVATED TEMP Last administered on 07/31/16 17:30; Admin Dose 650 MG; Start 07/28/16 at 08:30 Miscellaneous Information 1 ea NOTE XX ; Start 07/28/16 at 09:00 Glucose (Glutose) 15 gm Q15M PRN PO DECREASED GLUCOSE; Start 07/28/16 at 09:00 Glucose (Glutose) 22.5 gm Q15M PRN PO DECREASED GLUCOSE; Start 07/28/16 at 09: 00 Dextrose (D50w Syringe) 25 ml Q15M PRN IV DECREASED GLUCOSE; Start 07/28/16 at 09:00 Dextrose (D50w Syringe) 50 ml Q15M PRN IV DECREASED GLUCOSE; Start 07/28/16 at 09:00 Glucagon (Glucagen) 1 mg Q15M PRN IM DECREASED GLUCOSE; Start 07/28/16 at 09:00 Glucose (Glutose) 15 gm Q15M PRN BUCCAL DECREASED GLUCOSE; Start 07/28/16 at 09 :00 IV Flush (NS 10 ml) 10 ml PRN PRN IV IV PROTOCOL; Start 07/29/16 at 17:00 Metoprolol Tartrate (Lopressor) 25 mg BID NGT Last administered on 08/08/16 21: 40; Admin Dose 25 MG; Start 07/31/16 at 09:00 Morphine Sulfate (morphine) 2 mg Q4 PRN IV PAIN Last administered on 08/02/16 00:07; Admin Dose 2 MG; Start 07/31/16 at 12:00 Pantoprazole (Protonix Iv) 40 mg DAILY@06 IV Last administered on 08/09/16 05: 28; Admin Dose 40 MG; Start 08/02/16 at 06:00 Lorazepam 1 mg 1 mg Q1H PRN IV SEIZURES Last administered on 08/06/16 17:31; Admin Dose 1 MG; Start 08/02/16 at 02:00 Piperacillin Sod/ Tazobactam Sod (Zosyn 2.25gm/ 50ml (Pmx)) 50 ml @ 100 mls/hr Q8 IVPB Last administered on 08/09/16 05:29; Admin Dose 100 MLS/HR; Start 08/02 at 22:00 Acetaminophen (Tylenol Liquid) 650 mg Q4H PRN NGT PAIN AND OR ELEVATED TEMP Last administered on 08/04/16 21:40; Admin Dose 650 MG; Start 08/03/16 at 00:00 Insulin Glargine (Lantus) 20 unit DAILY@08 SC Last administered on 08/09/16 08: 43; Admin Dose 20 UNIT; Start 08/03/16 at 12:00 Insulin Aspart NOVOLOG *MILD* ALGORI... Q4 SC Last administered on 08/09/16 05: 39; Admin Dose 1 UNIT; Start 08/03/16 at 13:00 Valproate Sodium/ Sodium Chloride (Depacon/NS) 57.5 ml @ 55 mls/hr Q6 IVPB Last administered on 08/09/16 05:21; Admin Dose 55 MLS/HR; Start 08/04/16 at 13: 00 Calcium Acetate 667 mg 667 mg Q6 NGT Last administered on 08/09/16 05:29; Admin Dose 667 MG; Start 08/05/16 at 08:30 Midazolam HCl 50 ml @ 0 mls/hr TITRATE IV Last administered on 08/05/16 22:38; Admin Dose 3 MLS/HR; Start 08/05/16 at 13:00 Fentanyl (Sublimaze) 100 ml @ 2.5 mls/hr TITRATE IV Last administered on 22:39; Admin Dose 10 MLS/HR; Start 08/05/16 at 16:00 Hydralazine HCl 10 mg 10 mg Q4H PRN IV ELEVATED SYSTOLIC BP Last administered on 08/09/16 00:47; Admin Dose 10 MG; Start 08/06/16 at 01:30 Vancomycin HCl 250 ml @ 125 mls/hr Q96H IVPB Last administered on 08/06/16 16: 32; Admin Dose 125 MLS/HR; Start 08/06/16 at 15:00 Levetiracetam/ Sodium Chloride (Keppra Iv/NS) 107.5 ml @ 420 mls/hr DAILY IVPB Last administered on 08/08/16 08:07; Admin Dose 420 MLS/HR; Start 08/08/16 at 09:00 Sodium Bicarbonate (Sodium Bicarbonate Tab) 650 mg Q8 PO Last administered on 05:28; Admin Dose 650 MG; Start 08/08/16 at 14:00 JACKSON CUNNINGHAM Aug 09, 2016 09:15
[2016-08-09] MEDS: LEVETIRACETAM IV 750 MG in SOD CHLORIDE 0.9% 100 ML IVPB SCH (09:33)
[2016-08-09] MEDS: METOPROLOL 25 MG TAB NGT SCH ×2 (09:34→21:31)
--- NOTE | 2016-08-09 11:27 | RADRPT ---
PROCEDURE: XR Chest. CLINICAL INDICATION: Respiratory failure. TECHNIQUE: Single frontal view of the chest was obtained COMPARISON: Chest x-ray 08/09/2016 06:27 a.m. FINDINGS: The tracheal tube is well-positioned at T5. The NG tube is positioned distal to the GE junction. T here is a PICC line catheter entering the right arm with its tip in the right atrium. There is a po or inspiration. The pulmonary vasculature, lungs and pleural spaces are normal. The bony elements are unremarkable. The heart is mildly enlarged. IMPRESSION: 1. Mild cardiomegaly. 2. Satisfactory positioning of a PICC line catheter, into tracheal tube and NG tube. 3. No evidence of pulmonary edema or convincing evidence of CHF on today's exam. RPTAT:AAJJ Physician Marina Date Time Electronically viewed and signed by Jose Braswell Physician on 08/09/2016 11:27 NAFISA/
[2016-08-09] MEDS ORDERED: HEPARIN 1000 UNITS/ML 10 ML INJ CATHETER ONE (16:30)
[2016-08-09] MEDS: LORAZEPAM 2 MG INJ IV PRN (18:25)
[2016-08-09] MEDS ORDERED: LORAZEPAM 2 MG INJ IV ONE (18:33)
[2016-08-09] MEDS: LABETALOL HCL 20MG INJ IV PRN (18:33)
[2016-08-10] VITALS (57 sets, daily range): BP systolic 85–151; BP diastolic 49–89; PULSE 89–113; RESP 0–24
[2016-08-10] MEDS: IPRATROPIUM (HFA) 12.9 GM INHALER INH SCH ×6 (01:00→21:25)
[2016-08-10] MEDS: ALBUTEROL HFA 8 GM INHALER INH SCH ×6 (01:00→21:25)
[2016-08-10] MEDS: INSULIN ASPART [NOVOLOG] 3 ML PEN SC SCH ×6 (01:21→21:12)
[2016-08-10] MEDS: VALPROATE INJ 750 MG in SOD CHLORIDE 0.9% 50 ML IVPB SCH ×3 (05:33→18:15)
[2016-08-10] MEDS: NA BICARBONATE 650 MG TAB PO SCH ×3 (05:41→21:08)
[2016-08-10] MEDS: CALCIUM ACETATE 667 MG CAP NGT SCH ×3 (05:41→17:19)
[2016-08-10] MEDS: PANTOPRAZOLE 40 MG INJ IV SCH (05:41)
[2016-08-10] MEDS: PIPER-TAZO 2.25 GM (PMX) 50 ML IVPB SCH ×3 (06:29→21:08)
[2016-08-10 06:33] LABS: BASOPHIL # 0.1 10^3/ul (0.0-0.1); BASOPHILS % 0.3 % (0.0-2.0); EOSINOPHILS # 0.3 10^3/ul (0.0-0.5); HEMATOCRIT 34.2 % (42.0-52.0); HEMOGLOBIN 11.6 g/dl (14.0-18.0); LYMPHOCYTES # 1.9 10^3/ul (0.8-2.9); LYMPHOCYTES % 11.2 % (15.0-51.0); MEAN CORPUSCULAR HEMOGLOBIN 31.3 pg (29.0-33.0); MEAN CORPUSCULAR HGB CONC 33.8 g/dl (32.0-37.0); MEAN CORPUSCULAR VOLUME 92.6 fl (82.0-101.0); MEAN PLATELET VOLUME 8.7 fl (7.4-10.4); MONOCYTES % 6.1 % (0.0-11.0); NEUTROPHIL # 13.5 10^3/ul (1.6-7.5); NEUTROPHILS % 80.4 % (39.0-77.0); PLATELET COUNT 465 10^3/UL (140-440); RED BLOOD COUNT 3.69 10^6/ul (4.70-6.10); RED CELL DISTRIBUTION WIDTH 15.3 % (11.5-14.5); UNCORRECTED WBC 16.9 10^3/ul (4.8-10.8); WHITE BLOOD COUNT 16.9 10^3/ul (4.8-10.8)
[2016-08-10 06:45] LABS: CONDITION 1; LH ANALYZER COMMENTS 1
[2016-08-10 06:55] LABS: ALBUMIN 3.9 g/dl (3.3-4.9)
[2016-08-10 06:56] LABS: POTASSIUM 4.8 mmol/L (3.5-5.1)
[2016-08-10 06:58] LABS: ALBUMIN/GLOBULIN RATIO 0.95
[2016-08-10 06:59] LABS: MAGNESIUM 2.9 mg/dl (1.7-2.5); PHOSPHORUS 11.4 mg/dl (2.5-4.9)
[2016-08-10 07:06] LABS: CREATININE 8.98 mg/dl (0.61-1.24)
[2016-08-10] MEDS: INSULIN GLARGINE [LANtus] 3 ML PEN SC SCH (08:05)
--- NOTE | 2016-08-10 08:07 | CONS ---
Date/Time of Note Date/Time of Note DATE: 08/10/16 TIME: 08:02 Assessment/Plan Assessment/Plan Additional Assessment/Plan Assessment and recommendations; 1. Patient admitted with cardiac arrest exhibiting profound anoxic encephalopathy. 2. Aspiration pneumonia, currently on appropriate antibiotic regimen. 3. End-stage renal disease, on hemodialysis. 4. Hypertension. Continue current treatment. Obtain a blood gas on current ventilator settings. Prognosis is poor. Consultation Date/Type/Reason Admit Date/Time Jul 27, 2016 at 23:29 Initial Consult Date 07/28/16 Type of Consultation: Pulmonary/critical care 24 HR Interval Summary Free Text/Dictation Patient condition remains critical. Remains unresponsive. Remained hemodynamically stable. General examination; middle aged man, intubated, unresponsive. Currently in no distress. Exam/Review of Systems Vital Signs Vitals Vital Signs Date Time Temp Pulse Resp B/P Pulse Ox O2 Delivery O2 Flow Rate FiO2 08/10/16 07:30 100.0 98 16 101/55 98 Mechanical Ventilator 08/10/16 04:35 30 Intake and Output 08/09/16 08/09/16 08/10/16 15:00 23:00 07:00 Intake Total 485.0 ml 897.5 ml 317.5 ml Output Total 0 ml 3500 ml Balance 485.0 ml -2602.5 ml 317.5 ml Exam Current ventilator settings are AC of 16, tidal volume 650, 30% FiO2, PEEP of 5. H EENT examination; supple neck, no neck masses. No JVD. No lymphadenopathy patient is orally intubated. There is a disconjugate gaze. Pupils are midsize and nonreactive to light bilaterally. Chest examination; diminished but clear breath sounds bilaterally. S1-S2 audible, no murmurs, regular rate and rhythm. Abdomen examination; protuberant, no organomegaly. Bowel sounds audible. Extremity examination; no peripheral edema. Pulses 2+ bilaterally. SMT OPERATOR examination; patient is completely unresponsive. Results Result Diagram: 08/10/16 0448 08/10/16 0448 Results 24 hrs Laboratory Tests Test 08/09/16 09:31 08/09/16 11:39 08/09/16 17:11 08/09/16 21:35 Bedside Glucose 176 202 171 244 H Test 08/10/16 01:14 08/10/16 04:48 08/10/16 05:49 Bedside Glucose 236 H 171 Alanine Aminotransferase (ALT/SGPT) 67 Albumin 3.9 Albumin/Globulin Ratio 0.95 Alkaline Phosphatase 154 H Anion Gap 32 H Aspartate Amino Transf (AST/SGOT) 55 H Basophils # 0.1 Basophils % 0.3 Blood Morphology Comment Blood Urea Nitrogen 109 H Calcium Level 8.0 L Carbon Dioxide Level 23 Chloride Level 91 L Creatinine 8.98 H Direct Bilirubin 0.00 Eosinophils # 0.3 Eosinophils % 2.0 Globulin 4.10 H Glucose Level 187 Hematocrit 34.2 L Hemoglobin 11.6 L Indirect Bilirubin 0.0 Lymphocytes # 1.9 Lymphocytes % 11.2 L Magnesium Level 2.9 H Mean Corpuscular Hemoglobin 31.3 Mean Corpuscular Hemoglobin Concent 33.8 Mean Corpuscular Volume 92.6 Mean Platelet Volume 8.7 Monocytes # 1.0 H Monocytes % 6.1 Neutrophils # 13.5 H Neutrophils % 80.4 H Nucleated Red Blood Cells # 0.0 Nucleated Red Blood Cells % 0.0 Phosphorus Level 11.4 H Platelet Count 465 H Potassium Level 4.8 Red Blood Count 3.69 L Red Cell Distribution Width 15.3 H Sodium Level 141 Total Bilirubin 0.0 L Total Protein 8.0 White Blood Count 16.9 H Medications Medications Current Medications Norepinephrine/ Dextrose (Levophed/D5W) 500 ml @ 1.87 mls/hr TITRATE IV Last administered on 07/28/16 21:18; Admin Dose 11.25 MLS/HR; Start 07/28/16 at 04: 00 Labetalol HCl (Labetalol) 10 mg Q6H PRN IV sbp > 160 Last administered on 18:33; Admin Dose 10 MG; Start 07/28/16 at 00:30 Acetaminophen (Tylenol Supp) 650 mg Q6H PRN [place] PAIN AND OR ELEVATED TEMP Last administered on 07/31/16 17:30; Admin Dose 650 MG; Start 07/28/16 at 08:30 Miscellaneous Information 1 ea NOTE XX ; Start 07/28/16 at 09:00 Glucose (Glutose) 15 gm Q15M PRN PO DECREASED GLUCOSE; Start 07/28/16 at 09:00 Glucose (Glutose) 22.5 gm Q15M PRN PO DECREASED GLUCOSE; Start 07/28/16 at 09: 00 Dextrose (D50w Syringe) 25 ml Q15M PRN IV DECREASED GLUCOSE; Start 07/28/16 at 09:00 Dextrose (D50w Syringe) 50 ml Q15M PRN IV DECREASED GLUCOSE; Start 07/28/16 at 09:00 Glucagon (Glucagen) 1 mg Q15M PRN IM DECREASED GLUCOSE; Start 07/28/16 at 09:00 Glucose (Glutose) 15 gm Q15M PRN BUCCAL DECREASED GLUCOSE; Start 07/28/16 at 09 :00 IV Flush (NS 10 ml) 10 ml PRN PRN IV IV PROTOCOL; Start 07/29/16 at 17:00 Metoprolol Tartrate (Lopressor) 25 mg BID NGT Last administered on 08/09/16 21: 31; Admin Dose 25 MG; Start 07/31/16 at 09:00 Morphine Sulfate (morphine) 2 mg Q4 PRN IV PAIN Last administered on 08/02/16 00:07; Admin Dose 2 MG; Start 07/31/16 at 12:00 Pantoprazole (Protonix Iv) 40 mg DAILY@06 IV Last administered on 08/10/16 05: 41; Admin Dose 40 MG; Start 08/02/16 at 06:00 Lorazepam 1 mg 1 mg Q1H PRN IV SEIZURES Last administered on 08/09/16 18:25; Admin Dose 1 MG; Start 08/02/16 at 02:00 Piperacillin Sod/ Tazobactam Sod (Zosyn 2.25gm/ 50ml (Pmx)) 50 ml @ 100 mls/hr Q8 IVPB Last administered on 08/10/16 06:29; Admin Dose 100 MLS/HR; Start 08/02 at 22:00 Acetaminophen (Tylenol Liquid) 650 mg Q4H PRN NGT PAIN AND OR ELEVATED TEMP Last administered on 08/04/16 21:40; Admin Dose 650 MG; Start 08/03/16 at 00:00 Insulin Glargine (Lantus) 20 unit DAILY@08 SC Last administered on 08/09/16 08: 43; Admin Dose 20 UNIT; Start 08/03/16 at 12:00 Insulin Aspart NOVOLOG *MILD* ALGORI... Q4 SC Last administered on 08/10/16 05: 55; Admin Dose 1 UNIT; Start 08/03/16 at 13:00 Valproate Sodium/ Sodium Chloride (Depacon/NS) 57.5 ml @ 55 mls/hr Q6 IVPB Last administered on 08/10/16 05:33; Admin Dose 55 MLS/HR; Start 08/04/16 at 13: 00 Calcium Acetate 667 mg 667 mg Q6 NGT Last administered on 08/10/16 05:41; Admin Dose 667 MG; Start 08/05/16 at 08:30 Midazolam HCl 50 ml @ 0 mls/hr TITRATE IV Last administered on 08/05/16 22:38; Admin Dose 3 MLS/HR; Start 08/05/16 at 13:00 Fentanyl (Sublimaze) 100 ml @ 2.5 mls/hr TITRATE IV Last administered on 22:39; Admin Dose 10 MLS/HR; Start 08/05/16 at 16:00 Hydralazine HCl 10 mg 10 mg Q4H PRN IV ELEVATED SYSTOLIC BP Last administered on 08/09/16 18:20; Admin Dose 10 MG; Start 08/06/16 at 01:30 Vancomycin HCl 250 ml @ 125 mls/hr Q96H IVPB Last administered on 08/06/16 16: 32; Admin Dose 125 MLS/HR; Start 08/06/16 at 15:00 Levetiracetam/ Sodium Chloride (Keppra Iv/NS) 107.5 ml @ 420 mls/hr DAILY IVPB Last administered on 08/09/16 09:33; Admin Dose 420 MLS/HR; Start 08/08/16 at 09:00 Sodium Bicarbonate (Sodium Bicarbonate Tab) 650 mg Q8 PO Last administered on 05:41; Admin Dose 650 MG; Start 08/08/16 at 14:00 AMOR RODRIGUES Aug 10, 2016 08:07
--- NOTE | 2016-08-10 08:26 | CONS ---
Date/Time of Note Date/Time of Note DATE: 08/10/16 TIME: 08:21 Assessment/Plan Assessment/Plan Chief Complaint/Hosp Course #1 end-stage renal disease , this patient has ESRD due to diabetic nephropathy and has been on maintenance hemodialysis for about 1 year. He had dialysis yesterday . He had a new R femoral vascath placed this week .His BUN is high and I will order hemodialysis for today . will order labs for tomorrow . #2 the patient is status post a cardiac arrest at home #3 altered level of consciousness, probable anoxic encephalopathy. EEG done last week was abnormal consistent with brain . #4 insulin-dependent diabetes mellitus #5 seizures #6 ventilator dependent respiratory failure , h/o COPD and pneumonia on CXR . #7 hyperphosphatemia , calcium acetate started today . Problems: Consultation Date/Type/Reason Admit Date/Time Jul 27, 2016 at 23:29 Initial Consult Date 07/28/16 Type of Consultation: renal 24 HR Interval Summary Free Text/Dictation He is in the ICU unresponsive on a ventilator . He had some seizure activity last night . Exam/Review of Systems Vital Signs Vitals Vital Signs Date Time Temp Pulse Resp B/P Pulse Ox O2 Delivery O2 Flow Rate FiO2 08/10/16 07:30 100.0 98 16 101/55 98 Mechanical Ventilator 08/10/16 04:35 30 Intake and Output 08/09/16 08/09/16 08/10/16 15:00 23:00 07:00 Intake Total 485.0 ml 897.5 ml 317.5 ml Output Total 0 ml 3500 ml Balance 485.0 ml -2602.5 ml 317.5 ml Exam Constitutional: non-verbal Respiratory: clear to auscultation, diminished breath sounds Cardiovascular: regular rate and rhythm Gastrointestinal: distended, soft Musculoskeletal: nl extremities to inspection Results Result Diagram: 08/10/16 0448 08/10/16 0448 Results 24 hrs Laboratory Tests Test 08/09/16 09:31 08/09/16 11:39 08/09/16 17:11 08/09/16 21:35 Bedside Glucose 176 202 171 244 H Test 08/10/16 01:14 08/10/16 04:48 08/10/16 05:49 08/10/16 08:03 Bedside Glucose 236 H 171 168 Alanine Aminotransferase (ALT/SGPT) 67 Albumin 3.9 Albumin/Globulin Ratio 0.95 Alkaline Phosphatase 154 H Anion Gap 32 H Aspartate Amino Transf (AST/SGOT) 55 H Basophils # 0.1 Basophils % 0.3 Blood Morphology Comment Blood Urea Nitrogen 109 H Calcium Level 8.0 L Carbon Dioxide Level 23 Chloride Level 91 L Creatinine 8.98 H Direct Bilirubin 0.00 Eosinophils # 0.3 Eosinophils % 2.0 Globulin 4.10 H Glucose Level 187 Hematocrit 34.2 L Hemoglobin 11.6 L Indirect Bilirubin 0.0 Lymphocytes # 1.9 Lymphocytes % 11.2 L Magnesium Level 2.9 H Mean Corpuscular Hemoglobin 31.3 Mean Corpuscular Hemoglobin Concent 33.8 Mean Corpuscular Volume 92.6 Mean Platelet Volume 8.7 Monocytes # 1.0 H Monocytes % 6.1 Neutrophils # 13.5 H Neutrophils % 80.4 H Nucleated Red Blood Cells # 0.0 Nucleated Red Blood Cells % 0.0 Phosphorus Level 11.4 H Platelet Count 465 H Potassium Level 4.8 Red Blood Count 3.69 L Red Cell Distribution Width 15.3 H Sodium Level 141 Total Bilirubin 0.0 L Total Protein 8.0 White Blood Count 16.9 H Medications Medications Current Medications Norepinephrine/ Dextrose (Levophed/D5W) 500 ml @ 1.87 mls/hr TITRATE IV Last administered on 07/28/16 21:18; Admin Dose 11.25 MLS/HR; Start 07/28/16 at 04: 00 Labetalol HCl (Labetalol) 10 mg Q6H PRN IV sbp > 160 Last administered on 18:33; Admin Dose 10 MG; Start 07/28/16 at 00:30 Acetaminophen (Tylenol Supp) 650 mg Q6H PRN [place] PAIN AND OR ELEVATED TEMP Last administered on 07/31/16 17:30; Admin Dose 650 MG; Start 07/28/16 at 08:30 Miscellaneous Information 1 ea NOTE XX ; Start 07/28/16 at 09:00 Glucose (Glutose) 15 gm Q15M PRN PO DECREASED GLUCOSE; Start 07/28/16 at 09:00 Glucose (Glutose) 22.5 gm Q15M PRN PO DECREASED GLUCOSE; Start 07/28/16 at 09: 00 Dextrose (D50w Syringe) 25 ml Q15M PRN IV DECREASED GLUCOSE; Start 07/28/16 at 09:00 Dextrose (D50w Syringe) 50 ml Q15M PRN IV DECREASED GLUCOSE; Start 07/28/16 at 09:00 Glucagon (Glucagen) 1 mg Q15M PRN IM DECREASED GLUCOSE; Start 07/28/16 at 09:00 Glucose (Glutose) 15 gm Q15M PRN BUCCAL DECREASED GLUCOSE; Start 07/28/16 at 09 :00 IV Flush (NS 10 ml) 10 ml PRN PRN IV IV PROTOCOL; Start 07/29/16 at 17:00 Metoprolol Tartrate (Lopressor) 25 mg BID NGT Last administered on 08/09/16 21: 31; Admin Dose 25 MG; Start 07/31/16 at 09:00 Morphine Sulfate (morphine) 2 mg Q4 PRN IV PAIN Last administered on 08/02/16 00:07; Admin Dose 2 MG; Start 07/31/16 at 12:00 Pantoprazole (Protonix Iv) 40 mg DAILY@06 IV Last administered on 08/10/16 05: 41; Admin Dose 40 MG; Start 08/02/16 at 06:00 Lorazepam 1 mg 1 mg Q1H PRN IV SEIZURES Last administered on 08/09/16 18:25; Admin Dose 1 MG; Start 08/02/16 at 02:00 Piperacillin Sod/ Tazobactam Sod (Zosyn 2.25gm/ 50ml (Pmx)) 50 ml @ 100 mls/hr Q8 IVPB Last administered on 08/10/16 06:29; Admin Dose 100 MLS/HR; Start 08/02 at 22:00 Acetaminophen (Tylenol Liquid) 650 mg Q4H PRN N[place] PAIN AND OR ELEVATED TEMP Last administered on 08/04/16 21:40; Admin Dose 650 MG; Start 08/03/16 at 00:00 Insulin Glargine (Lantus) 20 unit DAILY@08 SC Last administered on 08/10/16 08: 05; Admin Dose 20 UNIT; Start 08/03/16 at 12:00 Insulin Aspart NOVOLOG *MILD* ALGORI... Q4 SC Last administered on 08/10/16 05: 55; Admin Dose 1 UNIT; Start 08/03/16 at 13:00 Valproate Sodium/ Sodium Chloride (Depacon/NS) 57.5 ml @ 55 mls/hr Q6 IVPB Last administered on 08/10/16 05:33; Admin Dose 55 MLS/HR; Start 08/04/16 at 13: 00 Calcium Acetate 667 mg 667 mg Q6 NGT Last administered on 08/10/16 05:41; Admin Dose 667 MG; Start 08/05/16 at 08:30 Midazolam HCl 50 ml @ 0 mls/hr TITRATE IV Last administered on 08/05/16 22:38; Admin Dose 3 MLS/HR; Start 08/05/16 at 13:00 Fentanyl (Sublimaze) 100 ml @ 2.5 mls/hr TITRATE IV Last administered on 22:39; Admin Dose 10 MLS/HR; Start 08/05/16 at 16:00 Hydralazine HCl 10 mg 10 mg Q4H PRN IV ELEVATED SYSTOLIC BP Last administered on 08/09/16 18:20; Admin Dose 10 MG; Start 08/06/16 at 01:30 Vancomycin HCl 250 ml @ 125 mls/hr Q96H IVPB Last administered on 08/06/16 16: 32; Admin Dose 125 MLS/HR; Start 08/06/16 at 15:00 Levetiracetam/ Sodium Chloride (Keppra Iv/NS) 107.5 ml @ 420 mls/hr DAILY IVPB Last administered on 08/09/16 09:33; Admin Dose 420 MLS/HR; Start 08/08/16 at 09:00 Sodium Bicarbonate (Sodium Bicarbonate Tab) 650 mg Q8 PO Last administered on 05:41; Admin Dose 650 MG; Start 08/08/16 at 14:00 ROSCOE LANGE MD Aug 10, 2016 08:26
[2016-08-10] MEDS: METOPROLOL 25 MG TAB NGT SCH ×2 (08:31→21:08)
[2016-08-10] MEDS: LEVETIRACETAM IV 750 MG in SOD CHLORIDE 0.9% 100 ML IVPB SCH (08:47)
[2016-08-10] MEDS: ARFORMOTEROL TARTRATE 15MCG/2 ML AMP NEB SCH ×3 (09:00→21:39)
[2016-08-10] MEDS: BUDESONIDE (NEB) 0.5MG/2ML AMP HHN SCH ×2 (09:17→21:39)
--- NOTE | 2016-08-10 09:36 | PN ---
Date/Time of Note Date/Time of Note DATE: 08/10/16 TIME: 09:34 Assessment/Plan VTE Prophylaxis VTE Prophylaxis Intervention: heparin Lines/Catheters IV Catheter Type (from Nrsg): [place] Cath Central line still needed: Yes (dialysis access ) Urinary Cath still in place: No Assessment/Plan Assessment/Plan 1. PEA s/p cardiac arrest , etiology PEA due to hypoxia -CT Brain shows no CVA or signs of anoxic injury but repeat EEG is now suggesting brain -Neuro on the case - 2. ESRD on HD - on serial Hemodialysis due to high BUN- plan for HD today, catheter has been changed recently 3. SIRS with elevated white count and fever- R Lung opacity noted and may be Asp PNA -cont cefepime/vanc 4. VDRF - not able to wean off, family wants tracheostomy 5. Hypotension - cardiac shock vs septic shock - resolved 6. CHF - acute - diastolic vs systolic dysfunction - fluid to be removed via dialysis - monitor I/O's 7. Metabolic with respiratory acidosis - 2/2 to cardiac arrest - s/p bicarb- resolved 8. Hx of hypertension - hold medications as patient is hypotensive 9. Type II DM-A1C at 7.3 -cont Lantus, NISS 10. Asthma - currently on vent, continue with breathing treatments 11. Smoking abuse - patient was to be counseled on cessation if extubated and alert 12. Obesity - consider nutrition consult once extubated 13. GI ppx - protonix 14. DVT ppx - hepari Subjective 24 Hr Interval Summary Free Text/Dictation pt remains intubated not able to wean off, Family wants tracheostomy after multiple discussion Exam/Review of Systems Vital Signs Vitals Vital Signs Date Time Temp Pulse Resp B/P Pulse Ox O2 Delivery O2 Flow Rate FiO2 08/10/16 08:00 103 08/10/16 07:30 100.0 16 101/55 98 Mechanical Ventilator 08/10/16 04:35 30 Intake and Output 08/09/16 08/09/16 08/10/16 15:00 23:00 07:00 Intake Total 485.0 ml 897.5 ml 317.5 ml Output Total 0 ml 3500 ml Balance 485.0 ml -2602.5 ml 317.5 ml Exam Constitutional: non-verbal, intubated, sedated Respiratory: bilateral crackles +, no wheezing Cardiovascular: regular rate and rhythm Musculoskeletal: nl extremities to inspection Neurological: unresponsive + lan Hd catheter Results Result Diagram: 08/10/168 08/10/16447 Results 24 hrs Laboratory Tests Test 08/09/16 11:39 08/09/16 17:11 08/09/16 21:35 08/10/16 01:14 Bedside Glucose 202 171 244 H 236 H Test 08/10/16 04:48 08/10/16 05:49 08/10/16 08:03 08/10/16 08:48 Alanine Aminotransferase (ALT/SGPT) 67 Albumin 3.9 Albumin/Globulin Ratio 0.95 Alkaline Phosphatase 154 H Anion Gap 32 H Aspartate Amino Transf (AST/SGOT) 55 H Basophils # 0.1 Basophils % 0.3 Blood Morphology Comment Blood Urea Nitrogen 109 H Calcium Level 8.0 L Carbon Dioxide Level 23 Chloride Level 91 L Creatinine 8.98 H Direct Bilirubin 0.00 Eosinophils # 0.3 Eosinophils % 2.0 Globulin 4.10 H Glucose Level 187 Hematocrit 34.2 L Hemoglobin 11.6 L Indirect Bilirubin 0.0 Lymphocytes # 1.9 Lymphocytes % 11.2 L Magnesium Level 2.9 H Mean Corpuscular Hemoglobin 31.3 Mean Corpuscular Hemoglobin Concent 33.8 Mean Corpuscular Volume 92.6 Mean Platelet Volume 8.7 Monocytes # 1.0 H Monocytes % 6.1 Neutrophils # 13.5 H Neutrophils % 80.4 H Nucleated Red Blood Cells # 0.0 Nucleated Red Blood Cells % 0.0 Phosphorus Level 11.4 H Platelet Count 465 H Potassium Level 4.8 Red Blood Count 3.69 L Red Cell Distribution Width 15.3 H Sodium Level 141 Total Bilirubin 0.0 L Total Protein 8.0 White Blood Count 16.9 H Bedside Glucose 171 168 189 Medications Medications Current Medications Norepinephrine/ Dextrose (Levophed/D5W) 500 ml @ 1.87 mls/hr TITRATE IV Last administered on 07/28/16 21:18; Admin Dose 11.25 MLS/HR; Start 07/28/16 at 04: 00 Labetalol HCl (Labetalol) 10 mg Q6H PRN IV sbp > 160 Last administered on 18:33; Admin Dose 10 MG; Start 07/28/16 at 00:30 Acetaminophen (Tylenol Supp) 650 mg Q6H PRN [place] PAIN AND OR ELEVATED TEMP Last administered on 07/31/16 17:30; Admin Dose 650 MG; Start 07/28/16 at 08:30 Miscellaneous Information 1 ea NOTE XX ; Start 07/28/16 at 09:00 Glucose (Glutose) 15 gm Q15M PRN PO DECREASED GLUCOSE; Start 07/28/16 at 09:00 Glucose (Glutose) 22.5 gm Q15M PRN PO DECREASED GLUCOSE; Start 07/28/16 at 09: 00 Dextrose (D50w Syringe) 25 ml Q15M PRN IV DECREASED GLUCOSE; Start 07/28/16 at 09:00 Dextrose (D50w Syringe) 50 ml Q15M PRN IV DECREASED GLUCOSE; Start 07/28/16 at 09:00 Glucagon (Glucagen) 1 mg Q15M PRN IM DECREASED GLUCOSE; Start 07/28/16 at 09:00 Glucose (Glutose) 15 gm Q15M PRN BUCCAL DECREASED GLUCOSE; Start 07/28/16 at 09 :00 IV Flush (NS 10 ml) 10 ml PRN PRN IV IV PROTOCOL; Start 07/29/16 at 17:00 Metoprolol Tartrate (Lopressor) 25 mg BID NGT Last administered on 08/09/16 21: 31; Admin Dose 25 MG; Start 07/31/16 at 09:00 Morphine Sulfate (morphine) 2 mg Q4 PRN IV PAIN Last administered on 08/02/16 00:07; Admin Dose 2 MG; Start 07/31/16 at 12:00 Pantoprazole (Protonix Iv) 40 mg DAILY@06 IV Last administered on 08/10/16 05: 41; Admin Dose 40 MG; Start 08/02/16 at 06:00 Lorazepam 1 mg 1 mg Q1H PRN IV SEIZURES Last administered on 08/09/16 18:25; Admin Dose 1 MG; Start 08/02/16 at 02:00 Piperacillin Sod/ Tazobactam Sod (Zosyn 2.25gm/ 50ml (Pmx)) 50 ml @ 100 mls/hr Q8 IVPB Last administered on 08/10/16 06:29; Admin Dose 100 MLS/HR; Start 08/02 at 22:00 Acetaminophen (Tylenol Liquid) 650 mg Q4H PRN N[place] PAIN AND OR ELEVATED TEMP Last administered on 08/04/16 21:40; Admin Dose 650 MG; Start 08/03/16 at 00:00 Insulin Glargine (Lantus) 20 unit DAILY@08 SC Last administered on 08/10/16 08: 05; Admin Dose 20 UNIT; Start 08/03/16 at 12:00 Insulin Aspart NOVOLOG *MILD* ALGORI... Q4 SC Last administered on 08/10/16 08: 51; Admin Dose 2 UNIT; Start 08/03/16 at 13:00 Valproate Sodium/ Sodium Chloride (Depacon/NS) 57.5 ml @ 55 mls/hr Q6 IVPB Last administered on 08/10/16 05:33; Admin Dose 55 MLS/HR; Start 08/04/16 at 13: 00 Calcium Acetate 667 mg 667 mg Q6 NGT Last administered on 08/10/16 05:41; Admin Dose 667 MG; Start 08/05/16 at 08:30 Midazolam HCl 50 ml @ 0 mls/hr TITRATE IV Last administered on 08/05/16 22:38; Admin Dose 3 MLS/HR; Start 08/05/16 at 13:00 Fentanyl (Sublimaze) 100 ml @ 2.5 mls/hr TITRATE IV Last administered on 22:39; Admin Dose 10 MLS/HR; Start 08/05/16 at 16:00 Hydralazine HCl 10 mg 10 mg Q4H PRN IV ELEVATED SYSTOLIC BP Last administered on 08/09/16 18:20; Admin Dose 10 MG; Start 08/06/16 at 01:30 Vancomycin HCl 250 ml @ 125 mls/hr Q96H IVPB Last administered on 08/06/16 16: 32; Admin Dose 125 MLS/HR; Start 08/06/16 at 15:00 Levetiracetam/ Sodium Chloride (Keppra Iv/NS) 107.5 ml @ 420 mls/hr DAILY IVPB Last administered on 08/10/16 08:47; Admin Dose 420 MLS/HR; Start 08/08/16 at 09:00 Sodium Bicarbonate (Sodium Bicarbonate Tab) 650 mg Q8 PO Last administered on 05:41; Admin Dose 650 MG; Start 08/08/16 at 14:00 NINFA PACK MD Aug 10, 2016 09:36
--- NOTE | 2016-08-10 09:37 | RADRPT ---
PROCEDURE: XR Chest AP portable CLINICAL INDICATION: Respiratory failure TECHNIQUE: An AP portable radiograph of the chest was submitted. COMPARISON: 08/09/2016 FINDINGS: Support Hardware: The endotracheal tube, the NG tube, and the right upper extremity PICC catheter is stable positioning. Cardiovascular: The heart remains mildly enlarged but the pulmonary vasculature appears normal. . Lung Fischer: The lung fischer appear clear with no nodule, alveolar infiltrate, for a interstitial pr ominence evident. Pleural Spaces: No pneumothorax or pleural effusion is identified. Osseous Structures: The osseous structures appear intact. Soft Tissues: The soft tissues appear generous. IMPRESSION: 1. The tubes and lines are stable positioning. 2. Persistent mild cardiomegaly without CHF. Physician Anya Date Time Electronically viewed and signed by Physician Anya on 08/10/2016 09:36 /
--- NOTE | 2016-08-10 09:50 | CONS ---
Date/Time of Note Date/Time of Note DATE: 08/10/16 TIME: 09:35 Assessment/Plan Assessment/Plan Additional Assessment/Plan Dysphagia * OG tube in place at 30ml * Defer EGD and PEG / to brain from abnormal EEG * Nutrition consult to determine rate and type of G tube feed * Assessment on brain functioning from neuro on 08-08-17 notes: This EEG is abnormal, consistent with brain End-stage renal disease * Continue hemodialysis Status post a cardiac arrest Altered level of consciousness, likely 2/2 to anoxic encephalopathy. Insulin-dependent diabetes mellitus Seizures Ventilator dependent respiratory failure COPD Further recommendations depend on clinical course Pt seen in collaboration with Dr. French Consultation Date/Type/Reason Admit Date/Time Jul 27, 2016 at 23:29 Type of Consultation: GI Reason for Consultation Dysphagia Hx of Present Illness 56 YO firs presented to ED 07-27-16 after unresponsive from cardiac arrest. During hospitalization, pt has remained intubated with an OG tube in place with minimal residual. Pt has been unable to be weaned off ventilator; however, he is no longer on pressor support or sedated. Per neurology, corneal reflexes bilaterally and gag reflexes are present. Awaiting further evaluation from neurology to determine brain functioning. Family has consented to EGD + PEG. Subjective hx not possible: pt non-verbal Psychological: nl mood/affect, no complaints Past Medical History Medical History: diabetes, hypertension, renal disease (ESRD on HD) Social History Alcohol Use: none Smoking Status: Current every day smoker (1 ppd x 40 years) Drug Use: none Exam/Review of Systems Vital Signs Vitals Vital Signs Date Time Temp Pulse Resp B/P Pulse Ox O2 Delivery O2 Flow Rate FiO2 08/10/16 08:00 103 08/10/16 07:30 100.0 16 101/55 98 Mechanical Ventilator 08/10/16 04:35 30 Intake and Output 08/09/16 08/09/16 08/10/16 15:00 23:00 07:00 Intake Total 485.0 ml 897.5 ml 317.5 ml Output Total 0 ml 3500 ml Balance 485.0 ml -2602.5 ml 317.5 ml Exam Constitutional: non-verbal Head: atraumatic ENMT: nl external ears & nose, nl lips & teeth, nl nasal mucosa & septum Respiratory: other (intubated) Cardiovascular: regular rate and rhythm Gastrointestinal: non-tender, soft Musculoskeletal: nl extremities to inspection Neurological: unresponsive Results Result Diagram: 08/10/16 0448 08/10/16 0448 Results 24 hrs Laboratory Tests Test 08/09/16 11:39 08/09/16 17:11 08/09/16 21:35 08/10/16 01:14 Bedside Glucose 202 171 244 H 236 H Test 08/10/16 04:48 08/10/16 05:49 08/10/16 08:03 08/10/16 08:48 Alanine Aminotransferase (ALT/SGPT) 67 Albumin 3.9 Albumin/Globulin Ratio 0.95 Alkaline Phosphatase 154 H Anion Gap 32 H Aspartate Amino Transf (AST/SGOT) 55 H Basophils # 0.1 Basophils % 0.3 Blood Morphology Comment Blood Urea Nitrogen 109 H Calcium Level 8.0 L Carbon Dioxide Level 23 Chloride Level 91 L Creatinine 8.98 H Direct Bilirubin 0.00 Eosinophils # 0.3 Eosinophils % 2.0 Globulin 4.10 H Glucose Level 187 Hematocrit 34.2 L Hemoglobin 11.6 L Indirect Bilirubin 0.0 Lymphocytes # 1.9 Lymphocytes % 11.2 L Magnesium Level 2.9 H Mean Corpuscular Hemoglobin 31.3 Mean Corpuscular Hemoglobin Concent 33.8 Mean Corpuscular Volume 92.6 Mean Platelet Volume 8.7 Monocytes # 1.0 H Monocytes % 6.1 Neutrophils # 13.5 H Neutrophils % 80.4 H Nucleated Red Blood Cells # 0.0 Nucleated Red Blood Cells % 0.0 Phosphorus Level 11.4 H Platelet Count 465 H Potassium Level 4.8 Red Blood Count 3.69 L Red Cell Distribution Width 15.3 H Sodium Level 141 Total Bilirubin 0.0 L Total Protein 8.0 White Blood Count 16.9 H Bedside Glucose 171 168 189 Medications Medications Current Medications Norepinephrine/ Dextrose (Levophed/D5W) 500 ml @ 1.87 mls/hr TITRATE IV Last administered on 07/28/16 21:18; Admin Dose 11.25 MLS/HR; Start 07/28/16 at 04: 00 Labetalol HCl (Labetalol) 10 mg Q6H PRN IV sbp > 160 Last administered on 18:33; Admin Dose 10 MG; Start 07/28/16 at 00:30 Acetaminophen (Tylenol Supp) 650 mg Q6H PRN [place] PAIN AND OR ELEVATED TEMP Last administered on 07/31/16 17:30; Admin Dose 650 MG; Start 07/28/16 at 08:30 Miscellaneous Information 1 ea NOTE XX ; Start 07/28/16 at 09:00 Glucose (Glutose) 15 gm Q15M PRN PO DECREASED GLUCOSE; Start 07/28/16 at 09:00 Glucose (Glutose) 22.5 gm Q15M PRN PO DECREASED GLUCOSE; Start 07/28/16 at 09: 00 Dextrose (D50w Syringe) 25 ml Q15M PRN IV DECREASED GLUCOSE; Start 07/28/16 at 09:00 Dextrose (D50w Syringe) 50 ml Q15M PRN IV DECREASED GLUCOSE; Start 07/28/16 at 09:00 Glucagon (Glucagen) 1 mg Q15M PRN IM DECREASED GLUCOSE; Start 07/28/16 at 09:00 Glucose (Glutose) 15 gm Q15M PRN BUCCAL DECREASED GLUCOSE; Start 07/28/16 at 09 :00 IV Flush (NS 10 ml) 10 ml PRN PRN IV IV PROTOCOL; Start 07/29/16 at 17:00 Metoprolol Tartrate (Lopressor) 25 mg BID NGT Last administered on 08/09/16 21: 31; Admin Dose 25 MG; Start 07/31/16 at 09:00 Morphine Sulfate (morphine) 2 mg Q4 PRN IV PAIN Last administered on 08/02/16 00:07; Admin Dose 2 MG; Start 07/31/16 at 12:00 Pantoprazole (Protonix Iv) 40 mg DAILY@06 IV Last administered on 08/10/16 05: 41; Admin Dose 40 MG; Start 08/02/16 at 06:00 Lorazepam 1 mg 1 mg Q1H PRN IV SEIZURES Last administered on 08/09/16 18:25; Admin Dose 1 MG; Start 08/02/16 at 02:00 Piperacillin Sod/ Tazobactam Sod (Zosyn 2.25gm/ 50ml (Pmx)) 50 ml @ 100 mls/hr Q8 IVPB Last administered on 08/10/16 06:29; Admin Dose 100 MLS/HR; Start 08/02 at 22:00 Acetaminophen (Tylenol Liquid) 650 mg Q4H PRN [place] PAIN AND OR ELEVATED TEMP Last administered on 08/04/16 21:40; Admin Dose 650 MG; Start 08/03/16 at 00:00 Insulin Glargine (Lantus) 20 unit DAILY@08 SC Last administered on 08/10/16 08: 05; Admin Dose 20 UNIT; Start 08/03/16 at 12:00 Insulin Aspart NOVOLOG *MILD* ALGORI... Q4 SC Last administered on 08/10/16 08: 51; Admin Dose 2 UNIT; Start 08/03/16 at 13:00 Valproate Sodium/ Sodium Chloride (Depacon/NS) 57.5 ml @ 55 mls/hr Q6 IVPB Last administered on 08/10/16 05:33; Admin Dose 55 MLS/HR; Start 08/04/16 at 13: 00 Calcium Acetate 667 mg 667 mg Q6 NGT Last administered on 08/10/16 05:41; Admin Dose 667 MG; Start 08/05/16 at 08:30 Midazolam HCl 50 ml @ 0 mls/hr TITRATE IV Last administered on 08/05/16 22:38; Admin Dose 3 MLS/HR; Start 08/05/16 at 13:00 Fentanyl (Sublimaze) 100 ml @ 2.5 mls/hr TITRATE IV Last administered on 22:39; Admin Dose 10 MLS/HR; Start 08/05/16 at 16:00 Hydralazine HCl 10 mg 10 mg Q4H PRN IV ELEVATED SYSTOLIC BP Last administered on 08/09/16 18:20; Admin Dose 10 MG; Start 08/06/16 at 01:30 Vancomycin HCl 250 ml @ 125 mls/hr Q96H IVPB Last administered on 08/06/16 16: 32; Admin Dose 125 MLS/HR; Start 08/06/16 at 15:00 Levetiracetam/ Sodium Chloride (Keppra Iv/NS) 107.5 ml @ 420 mls/hr DAILY IVPB Last administered on 08/10/16 08:47; Admin Dose 420 MLS/HR; Start 08/08/16 at 09:00 Sodium Bicarbonate (Sodium Bicarbonate Tab) 650 mg Q8 PO Last administered on 05:41; Admin Dose 650 MG; Start 08/08/16 at 14:00 CHON TURNER Aug 10, 2016 09:45
--- NOTE | 2016-08-10 10:18 | CONS ---
Date/Time of Note Date/Time of Note DATE: 08/10/16 TIME: 10:17 Assessment/Plan Assessment/Plan Chief Complaint/Hosp Course Cardiac arrest: PEA by history and likely respiratory/hypoxic mediated. Cardiac cath without significant CAD, EF preserved. Anoxic brain injury: EEG suggestive of brain but breathing over vent and passed apnea trial. Now off sedation for several days Acute on chronic diastolic heart failure: EF preserved. Receiving HD ESRD on HD Seizures HTN -continue metoprolol -HD per nephrology (more for clearance than volume removal) -neurology f/u Problems: Consultation Date/Type/Reason Admit Date/Time Jul 27, 2016 at 23:29 Initial Consult Date 07/28/16 Type of Consultation: Cardiology 24 HR Interval Summary Free Text/Dictation Had diaphoresis and high BP with HD yesterday. This am hypotensive with HD. Exam/Review of Systems Vital Signs Vitals Vital Signs Date Time Temp Pulse Resp B/P Pulse Ox O2 Delivery O2 Flow Rate FiO2 08/10/16 09:30 106 16 99/73 100 Mechanical Ventilator 08/10/16 08:00 30 08/10/16 07:30 100.0 Intake and Output 08/09/16 08/09/16 08/10/16 15:00 23:00 07:00 Intake Total 485.0 ml 897.5 ml 397.5 ml Output Total 0 ml 3500 ml Balance 485.0 ml -2602.5 ml 397.5 ml Exam Constitutional: No alert Head: atraumatic, normocephalic Neck: No jvd Respiratory: clear to auscultation, diminished breath sounds Cardiovascular: regular rate and rhythm, No systolic murmur Gastrointestinal: non-tender, soft Neurological: No nl mental status, No nl speech Results Result Diagram: 08/10/16 0448 08/10/16 0448 Results 24 hrs Laboratory Tests Test 08/09/16 11:39 08/09/16 17:11 08/09/16 21:35 08/10/16 01:14 Bedside Glucose 202 171 244 H 236 H Test 08/10/16 04:48 08/10/16 05:49 08/10/16 08:03 08/10/16 08:48 Alanine Aminotransferase (ALT/SGPT) 67 Albumin 3.9 Albumin/Globulin Ratio 0.95 Alkaline Phosphatase 154 H Anion Gap 32 H Aspartate Amino Transf (AST/SGOT) 55 H Basophils # 0.1 Basophils % 0.3 Blood Morphology Comment Blood Urea Nitrogen 109 H Calcium Level 8.0 L Carbon Dioxide Level 23 Chloride Level 91 L Creatinine 8.98 H Direct Bilirubin 0.00 Eosinophils # 0.3 Eosinophils % 2.0 Globulin 4.10 H Glucose Level 187 Hematocrit 34.2 L Hemoglobin 11.6 L Indirect Bilirubin 0.0 Lymphocytes # 1.9 Lymphocytes % 11.2 L Magnesium Level 2.9 H Mean Corpuscular Hemoglobin 31.3 Mean Corpuscular Hemoglobin Concent 33.8 Mean Corpuscular Volume 92.6 Mean Platelet Volume 8.7 Monocytes # 1.0 H Monocytes % 6.1 Neutrophils # 13.5 H Neutrophils % 80.4 H Nucleated Red Blood Cells # 0.0 Nucleated Red Blood Cells % 0.0 Phosphorus Level 11.4 H Platelet Count 465 H Potassium Level 4.8 Red Blood Count 3.69 L Red Cell Distribution Width 15.3 H Sodium Level 141 Total Bilirubin 0.0 L Total Protein 8.0 White Blood Count 16.9 H Bedside Glucose 171 168 189 Medications Medications Current Medications Norepinephrine/ Dextrose (Levophed/D5W) 500 ml @ 1.87 mls/hr TITRATE IV Last administered on 07/28/16 21:18; Admin Dose 11.25 MLS/HR; Start 07/28/16 at 04: 00 Labetalol HCl (Labetalol) 10 mg Q6H PRN IV sbp > 160 Last administered on 18:33; Admin Dose 10 MG; Start 07/28/16 at 00:30 Acetaminophen (Tylenol Supp) 650 mg Q6H PRN [place] PAIN AND OR ELEVATED TEMP Last administered on 07/31/16 17:30; Admin Dose 650 MG; Start 07/28/16 at 08:30 Miscellaneous Information 1 ea NOTE XX ; Start 07/28/16 at 09:00 Glucose (Glutose) 15 gm Q15M PRN PO DECREASED GLUCOSE; Start 07/28/16 at 09:00 Glucose (Glutose) 22.5 gm Q15M PRN PO DECREASED GLUCOSE; Start 07/28/16 at 09: 00 Dextrose (D50w Syringe) 25 ml Q15M PRN IV DECREASED GLUCOSE; Start 07/28/16 at 09:00 Dextrose (D50w Syringe) 50 ml Q15M PRN IV DECREASED GLUCOSE; Start 07/28/16 at 09:00 Glucagon (Glucagen) 1 mg Q15M PRN IM DECREASED GLUCOSE; Start 07/28/16 at 09:00 Glucose (Glutose) 15 gm Q15M PRN BUCCAL DECREASED GLUCOSE; Start 07/28/16 at 09 :00 IV Flush (NS 10 ml) 10 ml PRN PRN IV IV PROTOCOL; Start 07/29/16 at 17:00 Metoprolol Tartrate (Lopressor) 25 mg BID NGT Last administered on 08/09/16 21: 31; Admin Dose 25 MG; Start 07/31/16 at 09:00 Morphine Sulfate (morphine) 2 mg Q4 PRN IV PAIN Last administered on 08/02/16 00:07; Admin Dose 2 MG; Start 07/31/16 at 12:00 Pantoprazole (Protonix Iv) 40 mg DAILY@06 IV Last administered on 08/10/16 05: 41; Admin Dose 40 MG; Start 08/02/16 at 06:00 Lorazepam 1 mg 1 mg Q1H PRN IV SEIZURES Last administered on 08/09/16 18:25; Admin Dose 1 MG; Start 08/02/16 at 02:00 Piperacillin Sod/ Tazobactam Sod (Zosyn 2.25gm/ 50ml (Pmx)) 50 ml @ 100 mls/hr Q8 IVPB Last administered on 08/10/16 06:29; Admin Dose 100 MLS/HR; Start 08/02 at 22:00 Acetaminophen (Tylenol Liquid) 650 mg Q4H PRN NGT PAIN AND OR ELEVATED TEMP Last administered on 08/04/16 21:40; Admin Dose 650 MG; Start 08/03/16 at 00:00 Insulin Glargine (Lantus) 20 unit DAILY@08 SC Last administered on 08/10/16 08: 05; Admin Dose 20 UNIT; Start 08/03/16 at 12:00 Insulin Aspart NOVOLOG *MILD* ALGORI... Q4 SC Last administered on 08/10/16 08: 51; Admin Dose 2 UNIT; Start 08/03/16 at 13:00 Valproate Sodium/ Sodium Chloride (Depacon/NS) 57.5 ml @ 55 mls/hr Q6 IVPB Last administered on 08/10/16 05:33; Admin Dose 55 MLS/HR; Start 08/04/16 at 13: 00 Calcium Acetate 667 mg 667 mg Q6 NGT Last administered on 08/10/16 05:41; Admin Dose 667 MG; Start 08/05/16 at 08:30 Midazolam HCl 50 ml @ 0 mls/hr TITRATE IV Last administered on 08/05/16 22:38; Admin Dose 3 MLS/HR; Start 08/05/16 at 13:00 Fentanyl (Sublimaze) 100 ml @ 2.5 mls/hr TITRATE IV Last administered on 22:39; Admin Dose 10 MLS/HR; Start 08/05/16 at 16:00 Hydralazine HCl 10 mg 10 mg Q4H PRN IV ELEVATED SYSTOLIC BP Last administered on 08/09/16 18:20; Admin Dose 10 MG; Start 08/06/16 at 01:30 Vancomycin HCl 250 ml @ 125 mls/hr Q96H IVPB Last administered on 08/06/16 16: 32; Admin Dose 125 MLS/HR; Start 08/06/16 at 15:00 Levetiracetam/ Sodium Chloride (Keppra Iv/NS) 107.5 ml @ 420 mls/hr DAILY IVPB Last administered on 08/10/16 08:47; Admin Dose 420 MLS/HR; Start 08/08/16 at 09:00 Sodium Bicarbonate (Sodium Bicarbonate Tab) 650 mg Q8 PO Last administered on 05:41; Admin Dose 650 MG; Start 08/08/16 at 14:00 JACKSON CUNNINGHAM Aug 10, 2016 10:18
[2016-08-10] MEDS: VANCOMYCIN 1 GM in NS 250 ML IVPB SCH (14:59)
[2016-08-11] VITALS (82 sets, daily range): BP systolic 80–166; BP diastolic 52–139; PULSE 73–189; RESP 14–32
[2016-08-11] MEDS: CALCIUM ACETATE 667 MG CAP NGT SCH ×4 (00:37→17:25)
[2016-08-11] MEDS: VALPROATE INJ 750 MG in SOD CHLORIDE 0.9% 50 ML IVPB SCH ×4 (00:37→17:25)
[2016-08-11] MEDS: INSULIN ASPART [NOVOLOG] 3 ML PEN SC SCH ×6 (00:56→20:48)
[2016-08-11] MEDS: IPRATROPIUM (HFA) 12.9 GM INHALER INH SCH ×6 (02:28→21:01)
[2016-08-11] MEDS: ALBUTEROL HFA 8 GM INHALER INH SCH ×6 (02:29→21:01)
[2016-08-11] MEDS: PANTOPRAZOLE 40 MG INJ IV SCH (05:10)
[2016-08-11 05:11] LABS: BASOPHIL # 0.1 10^3/ul (0.0-0.1); BASOPHILS % 0.4 % (0.0-2.0); EOSINOPHILS # 0.2 10^3/ul (0.0-0.5); EOSINOPHILS % 1.3 % (0.0-7.0); HEMATOCRIT 34.3 % (42.0-52.0); HEMOGLOBIN 11.4 g/dl (14.0-18.0); LYMPHOCYTES # 1.9 10^3/ul (0.8-2.9); LYMPHOCYTES % 10.5 % (15.0-51.0); MEAN CORPUSCULAR HEMOGLOBIN 31.1 pg (29.0-33.0); MEAN CORPUSCULAR HGB CONC 33.4 g/dl (32.0-37.0); MEAN CORPUSCULAR VOLUME 93.2 fl (82.0-101.0); MEAN PLATELET VOLUME 8.8 fl (7.4-10.4); MONOCYTE # 1.2 10^3/ul (0.3-0.9); MONOCYTES % 6.5 % (0.0-11.0); NEUTROPHIL # 14.7 10^3/ul (1.6-7.5); NEUTROPHILS % 81.3 % (39.0-77.0); PLATELET COUNT 447 10^3/UL (140-440); RED BLOOD COUNT 3.68 10^6/ul (4.70-6.10); RED CELL DISTRIBUTION WIDTH 15.3 % (11.5-14.5); UNCORRECTED WBC 18.1 10^3/ul (4.8-10.8); WHITE BLOOD COUNT 18.1 10^3/ul (4.8-10.8)
[2016-08-11] MEDS: PIPER-TAZO 2.25 GM (PMX) 50 ML IVPB SCH ×3 (05:11→22:22)
[2016-08-11] MEDS: NA BICARBONATE 650 MG TAB PO SCH ×3 (05:13→22:22)
[2016-08-11 05:22] LABS: CONDITION 1; LH ANALYZER COMMENTS 1
[2016-08-11 05:34] LABS: POTASSIUM 4.5 mmol/L (3.5-5.1)
[2016-08-11 05:36] LABS: ALBUMIN/GLOBULIN RATIO 0.97; TOTAL PROTEIN 8.1 g/dl (6.1-8.1)
[2016-08-11 05:37] LABS: CALCIUM 8.4 mg/dl (8.4-10.2); MAGNESIUM 2.8 mg/dl (1.7-2.5); PHOSPHORUS 9.6 mg/dl (2.5-4.9)
[2016-08-11 06:07] LABS: CREATININE 8.22 mg/dl (0.61-1.24)
[2016-08-11] MEDS: INSULIN GLARGINE [LANtus] 3 ML PEN SC SCH (07:47)
[2016-08-11] MEDS: LEVETIRACETAM IV 750 MG in SOD CHLORIDE 0.9% 100 ML IVPB SCH (08:31)
[2016-08-11] MEDS: ACETAMINOPHEN 650MG/20.3ML CUP NGT PRN (08:32)
--- NOTE | 2016-08-11 08:46 | CONS ---
Date/Time of Note Date/Time of Note DATE: 08/11/16 TIME: 08:42 Assessment/Plan Assessment/Plan Chief Complaint/Hosp Course 56 YO firs presented to ED 07-27-16 after unresponsive from cardiac arrest. During hospitalization, pt has remained intubated with an OG tube in place with minimal residual. Pt has been unable to be weaned off ventilator; however, he is no longer on pressor support or sedated. Per neurology, corneal reflexes bilaterally and gag reflexes are present. Awaiting further evaluation from neurology to determine brain functioning. Family has consented to EGD + PEG. Problems: Additional Assessment/Plan Dysphagia * OG tube in place at 30ml * Defer EGD and PEG till tracheostomy is placed * Nutrition consult to determine rate and type of G tube feed End-stage renal disease * Continue hemodialysis Status post a cardiac arrest Altered level of consciousness, likely 2/2 to anoxic encephalopathy. Loose stool * Test for C Diff Insulin-dependent diabetes mellitus Seizures Ventilator dependent respiratory failure COPD Further recommendations depend on clinical course Pt seen in collaboration with Dr. French Consultation Date/Type/Reason Admit Date/Time Jul 27, 2016 at 23:29 Initial Consult Date 07/28/16 Type of Consultation: GI 24 HR Interval Summary Free Text/Dictation Tracheostomy tentatively planned on Monday or Monday PEG tube after possibly on Monday NG tube without minimal residual Loose stool in rectal tube Exam/Review of Systems Vital Signs Vitals Vital Signs Date Time Temp Pulse Resp B/P Pulse Ox O2 Delivery O2 Flow Rate FiO2 08/11/16 07:55 102 16 96 30 08/11/16 07:00 141/75 Mechanical Ventilator 08/11/16 04:00 98.9 Intake and Output 08/10/16 08/10/16 08/11/16 15:00 23:00 07:00 Intake Total 1267.5 ml 747.5 ml 390 ml Output Total 2500 ml Balance -1232.5 ml 747.5 ml 390 ml Exam Constitutional: non-verbal Head: atraumatic ENMT: nl external ears & nose, nl lips & teeth, nl nasal mucosa & septum Respiratory: other (intubated) Cardiovascular: regular rate and rhythm Gastrointestinal: non-tender, soft Musculoskeletal: nl extremities to inspection Neurological: unresponsive Results Result Diagram: 08/11/16 0330 08/11/16 0330 Results 24 hrs Laboratory Tests Test 08/10/16 08:48 08/10/16 12:57 08/10/16 16:55 08/10/16 21:09 Bedside Glucose 189 244 H 233 H 200 Test 08/11/16 00:54 08/11/16 03:30 08/11/16 05:02 08/11/16 07:41 Bedside Glucose 189 172 208 Alanine Aminotransferase (ALT/SGPT) 64 Albumin 4.0 Albumin/Globulin Ratio 0.97 Alkaline Phosphatase 147 H Anion Gap 32 H Aspartate Amino Transf (AST/SGOT) 49 H Basophils # 0.1 Basophils % 0.4 Blood Morphology Comment Blood Urea Nitrogen 97 H Calcium Level 8.4 Carbon Dioxide Level 21 Chloride Level 96 L Creatinine 8.22 H Direct Bilirubin 0.00 Eosinophils # 0.2 Eosinophils % 1.3 Globulin 4.10 H Glucose Level 206 Hematocrit 34.3 L Hemoglobin 11.4 L Indirect Bilirubin 0.0 Lymphocytes # 1.9 Lymphocytes % 10.5 L Magnesium Level 2.8 H Mean Corpuscular Hemoglobin 31.1 Mean Corpuscular Hemoglobin Concent 33.4 Mean Corpuscular Volume 93.2 Mean Platelet Volume 8.8 Monocytes # 1.2 H Monocytes % 6.5 Neutrophils # 14.7 H Neutrophils % 81.3 H Nucleated Red Blood Cells # 0.0 Nucleated Red Blood Cells % 0.0 Phosphorus Level 9.6 H Platelet Count 447 H Potassium Level 4.5 Red Blood Count 3.68 L Red Cell Distribution Width 15.3 H Sodium Level 144 Total Bilirubin 0.0 L Total Protein 8.1 White Blood Count 18.1 H Medications Medications Current Medications Norepinephrine/ Dextrose (Levophed/D5W) 500 ml @ 1.87 mls/hr TITRATE IV Last administered on 07/28/16 21:18; Admin Dose 11.25 MLS/HR; Start 07/28/16 at 04: 00 Labetalol HCl (Labetalol) 10 mg Q6H PRN IV sbp > 160 Last administered on 18:33; Admin Dose 10 MG; Start 07/28/16 at 00:30 Acetaminophen (Tylenol Supp) 650 mg Q6H PRN [place] PAIN AND OR ELEVATED TEMP Last administered on 07/31/16 17:30; Admin Dose 650 MG; Start 07/28/16 at 08:30 Miscellaneous Information 1 ea NOTE XX ; Start 07/28/16 at 09:00 Glucose (Glutose) 15 gm Q15M PRN PO DECREASED GLUCOSE; Start 07/28/16 at 09:00 Glucose (Glutose) 22.5 gm Q15M PRN PO DECREASED GLUCOSE; Start 07/28/16 at 09: 00 Dextrose (D50w Syringe) 25 ml Q15M PRN IV DECREASED GLUCOSE; Start 07/28/16 at 09:00 Dextrose (D50w Syringe) 50 ml Q15M PRN IV DECREASED GLUCOSE; Start 07/28/16 at 09:00 Glucagon (Glucagen) 1 mg Q15M PRN IM DECREASED GLUCOSE; Start 07/28/16 at 09:00 Glucose (Glutose) 15 gm Q15M PRN BUCCAL DECREASED GLUCOSE; Start 07/28/16 at 09 :00 IV Flush (NS 10 ml) 10 ml PRN PRN IV IV PROTOCOL; Start 07/29/16 at 17:00 Metoprolol Tartrate (Lopressor) 25 mg BID NGT Last administered on 08/10/16 21: 08; Admin Dose 25 MG; Start 07/31/16 at 09:00 Morphine Sulfate (morphine) 2 mg Q4 PRN IV PAIN Last administered on 08/02/16 00:07; Admin Dose 2 MG; Start 07/31/16 at 12:00 Pantoprazole (Protonix Iv) 40 mg DAILY@06 IV Last administered on 08/11/16 05: 10; Admin Dose 40 MG; Start 08/02/16 at 06:00 Lorazepam 1 mg 1 mg Q1H PRN IV SEIZURES Last administered on 08/09/16 18:25; Admin Dose 1 MG; Start 08/02/16 at 02:00 Piperacillin Sod/ Tazobactam Sod (Zosyn 2.25gm/ 50ml (Pmx)) 50 ml @ 100 mls/hr Q8 IVPB Last administered on 08/11/16 05:11; Admin Dose 100 MLS/HR; Start 08/02 at 22:00 Acetaminophen (Tylenol Liquid) 650 mg Q4H PRN NGT PAIN AND OR ELEVATED TEMP Last administered on 08/04/16 21:40; Admin Dose 650 MG; Start 08/03/16 at 00:00 Insulin Glargine (Lantus) 20 unit DAILY@08 SC Last administered on 08/11/16 07: 47; Admin Dose 20 UNIT; Start 08/03/16 at 12:00 Insulin Aspart NOVOLOG *MILD* ALGORI... Q4 SC Last administered on 08/11/16 05: 05; Admin Dose 1 UNIT; Start 08/03/16 at 13:00 Valproate Sodium/ Sodium Chloride (Depacon/NS) 57.5 ml @ 55 mls/hr Q6 IVPB Last administered on 08/11/16 05:11; Admin Dose 55 MLS/HR; Start 08/04/16 at 13: 00 Calcium Acetate 667 mg 667 mg Q6 NGT Last administered on 08/11/16 05:11; Admin Dose 667 MG; Start 08/05/16 at 08:30 Midazolam HCl 50 ml @ 0 mls/hr TITRATE IV Last administered on 08/05/16 22:38; Admin Dose 3 MLS/HR; Start 08/05/16 at 13:00 Fentanyl (Sublimaze) 100 ml @ 2.5 mls/hr TITRATE IV Last administered on 22:39; Admin Dose 10 MLS/HR; Start 08/05/16 at 16:00 Hydralazine HCl 10 mg 10 mg Q4H PRN IV ELEVATED SYSTOLIC BP Last administered on 08/09/16 18:20; Admin Dose 10 MG; Start 08/06/16 at 01:30 Vancomycin HCl 250 ml @ 125 mls/hr Q96H IVPB Last administered on 08/10/16 14: 59; Admin Dose 125 MLS/HR; Start 08/06/16 at 15:00 Levetiracetam/ Sodium Chloride (Keppra Iv/NS) 107.5 ml @ 420 mls/hr DAILY IVPB Last administered on 08/10/16 08:47; Admin Dose 420 MLS/HR; Start 08/08/16 at 09:00 Sodium Bicarbonate (Sodium Bicarbonate Tab) 650 mg Q8 PO Last administered on 05:13; Admin Dose 650 MG; Start 08/08/16 at 14:00 CHON TURNER Aug 11, 2016 08:46
--- NOTE | 2016-08-11 08:58 | CONS ---
Date/Time of Note Date/Time of Note DATE: 08/11/16 TIME: 08:53 Assessment/Plan Assessment/Plan Chief Complaint/Hosp Course #1 end-stage renal disease . He had a new R femoral vascath placed this week. He was dialyzed yesterday using his L upper arm fistula .His BUN is lower after dialysis yesterday , but higher than I would like . I will order hemodialysis for today . will order labs for tomorrow . #2 the patient is status post a cardiac arrest at home #3 altered level of consciousness, probable anoxic encephalopathy. EEG done last week was abnormal consistent with brain . #4 insulin-dependent diabetes mellitus #5 seizures #6 ventilator dependent respiratory failure , h/o COPD and pneumonia on CXR . #7 hyperphosphatemia , calcium acetate started today . Problems: Consultation Date/Type/Reason Admit Date/Time Jul 27, 2016 at 23:29 Initial Consult Date 07/28/16 Type of Consultation: renal 24 HR Interval Summary Free Text/Dictation Patient is in the ICU on a ventilator , unresponsive . Subjective hx not possible: pt non-verbal Exam/Review of Systems Vital Signs Vitals Vital Signs Date Time Temp Pulse Resp B/P Pulse Ox O2 Delivery O2 Flow Rate FiO2 08/11/16 07:55 102 16 96 30 08/11/16 07:00 141/75 Mechanical Ventilator 08/11/16 04:00 98.9 Intake and Output 08/10/16 08/10/16 08/11/16 15:00 23:00 07:00 Intake Total 1267.5 ml 747.5 ml 390 ml Output Total 2500 ml Balance -1232.5 ml 747.5 ml 390 ml Exam Constitutional: non-verbal Head: normocephalic ENMT: intubated Respiratory: clear to auscultation, diminished breath sounds Cardiovascular: regular rate and rhythm Gastrointestinal: soft Musculoskeletal: nl extremities to inspection Results Result Diagram: 08/11/16 03308/11/16 0330 Results 24 hrs Laboratory Tests Test 08/10/16 12:57 08/10/16 16:55 08/10/16 21:09 08/11/16 00:54 Bedside Glucose 244 H 233 H 200 189 Test 08/11/16 03:30 08/11/16 05:02 08/11/16 07:41 Alanine Aminotransferase (ALT/SGPT) 64 Albumin 4.0 Albumin/Globulin Ratio 0.97 Alkaline Phosphatase 147 H Anion Gap 32 H Aspartate Amino Transf (AST/SGOT) 49 H Basophils # 0.1 Basophils % 0.4 Blood Morphology Comment Blood Urea Nitrogen 97 H Calcium Level 8.4 Carbon Dioxide Level 21 Chloride Level 96 L Creatinine 8.22 H Direct Bilirubin 0.00 Eosinophils # 0.2 Eosinophils % 1.3 Globulin 4.10 H Glucose Level 206 Hematocrit 34.3 L Hemoglobin 11.4 L Indirect Bilirubin 0.0 Lymphocytes # 1.9 Lymphocytes % 10.5 L Magnesium Level 2.8 H Mean Corpuscular Hemoglobin 31.1 Mean Corpuscular Hemoglobin Concent 33.4 Mean Corpuscular Volume 93.2 Mean Platelet Volume 8.8 Monocytes # 1.2 H Monocytes % 6.5 Neutrophils # 14.7 H Neutrophils % 81.3 H Nucleated Red Blood Cells # 0.0 Nucleated Red Blood Cells % 0.0 Phosphorus Level 9.6 H Platelet Count 447 H Potassium Level 4.5 Red Blood Count 3.68 L Red Cell Distribution Width 15.3 H Sodium Level 144 Total Bilirubin 0.0 L Total Protein 8.1 White Blood Count 18.1 H Bedside Glucose 172 208 Medications Medications Current Medications Norepinephrine/ Dextrose (Levophed/D5W) 500 ml @ 1.87 mls/hr TITRATE IV Last administered on 07/28/16 21:18; Admin Dose 11.25 MLS/HR; Start 07/28/16 at 04: 00 Labetalol HCl (Labetalol) 10 mg Q6H PRN IV sbp > 160 Last administered on 18:33; Admin Dose 10 MG; Start 07/28/16 at 00:30 Acetaminophen (Tylenol Supp) 650 mg Q6H PRN [place] PAIN AND OR ELEVATED TEMP Last administered on 07/31/16 17:30; Admin Dose 650 MG; Start 07/28/16 at 08:30 Miscellaneous Information 1 ea NOTE XX ; Start 07/28/16 at 09:00 Glucose (Glutose) 15 gm Q15M PRN PO DECREASED GLUCOSE; Start 07/28/16 at 09:00 Glucose (Glutose) 22.5 gm Q15M PRN PO DECREASED GLUCOSE; Start 07/28/16 at 09: 00 Dextrose (D50w Syringe) 25 ml Q15M PRN IV DECREASED GLUCOSE; Start 07/28/16 at 09:00 Dextrose (D50w Syringe) 50 ml Q15M PRN IV DECREASED GLUCOSE; Start 07/28/16 at 09:00 Glucagon (Glucagen) 1 mg Q15M PRN IM DECREASED GLUCOSE; Start 07/28/16 at 09:00 Glucose (Glutose) 15 gm Q15M PRN BUCCAL DECREASED GLUCOSE; Start 07/28/16 at 09 :00 IV Flush (NS 10 ml) 10 ml PRN PRN IV IV PROTOCOL; Start 07/29/16 at 17:00 Metoprolol Tartrate (Lopressor) 25 mg BID NGT Last administered on 08/10/16 21: 08; Admin Dose 25 MG; Start 07/31/16 at 09:00 Morphine Sulfate (morphine) 2 mg Q4 PRN IV PAIN Last administered on 08/02/16 00:07; Admin Dose 2 MG; Start 07/31/16 at 12:00 Pantoprazole (Protonix Iv) 40 mg DAILY@06 IV Last administered on 08/11/16 05: 10; Admin Dose 40 MG; Start 08/02/16 at 06:00 Lorazepam 1 mg 1 mg Q1H PRN IV SEIZURES Last administered on 08/09/16 18:25; Admin Dose 1 MG; Start 08/02/16 at 02:00 Piperacillin Sod/ Tazobactam Sod (Zosyn 2.25gm/ 50ml (Pmx)) 50 ml @ 100 mls/hr Q8 IVPB Last administered on 08/11/16 05:11; Admin Dose 100 MLS/HR; Start 08/02 at 22:00 Acetaminophen (Tylenol Liquid) 650 mg Q4H PRN NGT PAIN AND OR ELEVATED TEMP Last administered on 08/11/16 08:32; Admin Dose 650 MG; Start 08/03/16 at 00:00 Insulin Glargine (Lantus) 20 unit DAILY@08 SC Last administered on 08/11/16 07: 47; Admin Dose 20 UNIT; Start 08/03/16 at 12:00 Insulin Aspart NOVOLOG *MILD* ALGORI... Q4 SC Last administered on 08/11/16 05: 05; Admin Dose 1 UNIT; Start 08/03/16 at 13:00 Valproate Sodium/ Sodium Chloride (Depacon/NS) 57.5 ml @ 55 mls/hr Q6 IVPB Last administered on 08/11/16 05:11; Admin Dose 55 MLS/HR; Start 08/04/16 at 13: 00 Calcium Acetate 667 mg 667 mg Q6 NGT Last administered on 08/11/16 05:11; Admin Dose 667 MG; Start 08/05/16 at 08:30 Midazolam HCl 50 ml @ 0 mls/hr TITRATE IV Last administered on 08/05/16 22:38; Admin Dose 3 MLS/HR; Start 08/05/16 at 13:00 Fentanyl (Sublimaze) 100 ml @ 2.5 mls/hr TITRATE IV Last administered on 22:39; Admin Dose 10 MLS/HR; Start 08/05/16 at 16:00 Hydralazine HCl 10 mg 10 mg Q4H PRN IV ELEVATED SYSTOLIC BP Last administered on 08/09/16 18:20; Admin Dose 10 MG; Start 08/06/16 at 01:30 Vancomycin HCl 250 ml @ 125 mls/hr Q96H IVPB Last administered on 08/10/16 14: 59; Admin Dose 125 MLS/HR; Start 08/06/16 at 15:00 Levetiracetam/ Sodium Chloride (Keppra Iv/NS) 107.5 ml @ 420 mls/hr DAILY IVPB Last administered on 08/11/16 08:31; Admin Dose 420 MLS/HR; Start 08/08/16 at 09:00 Sodium Bicarbonate (Sodium Bicarbonate Tab) 650 mg Q8 PO Last administered on 05:13; Admin Dose 650 MG; Start 08/08/16 at 14:00 ROSCOE LANGE MD Aug 11, 2016 08:58
[2016-08-11] MEDS: METOPROLOL 25 MG TAB NGT SCH (09:00)
[2016-08-11] MEDS: BUDESONIDE (NEB) 0.5MG/2ML AMP HHN SCH ×2 (09:57→19:42)
[2016-08-11] MEDS: ARFORMOTEROL TARTRATE 15MCG/2 ML AMP NEB SCH ×2 (09:58→19:42)
--- NOTE | 2016-08-11 10:01 | CONS ---
Date/Time of Note Date/Time of Note DATE: 08/11/16 TIME: 09:49 Assessment/Plan Assessment/Plan Chief Complaint/Hosp Course Cardiac arrest: PEA by history and likely respiratory/hypoxic mediated. Cardiac cath without significant CAD, EF preserved. Anoxic brain injury: EEG suggestive of brain but breathing over vent and passed apnea trial. Now off sedation for several days. Opens eyes at times but no purposeful movements. Acute on chronic diastolic heart failure: EF preserved. Receiving HD ESRD on HD Seizures HTN -continue metoprolol -HD per nephrology (more for clearance than volume removal) -neurology f/u Problems: Consultation Date/Type/Reason Admit Date/Time Jul 27, 2016 at 23:29 Initial Consult Date 07/28/16 Type of Consultation: Cardiology 24 HR Interval Summary Free Text/Dictation No o/n events. Trach/peg planned for this weekend per family Exam/Review of Systems Vital Signs Vitals Vital Signs Date Time Temp Pulse Resp B/P Pulse Ox O2 Delivery O2 Flow Rate FiO2 08/11/16 09:00 105 16 126/71 98 Mechanical Ventilator 08/11/16 08:00 100.0 08/11/16 07:55 30 Intake and Output 08/10/16 08/10/16 08/11/16 15:00 23:00 07:00 Intake Total 1267.5 ml 747.5 ml 390 ml Output Total 2500 ml Balance -1232.5 ml 747.5 ml 390 ml Exam Constitutional: No alert Head: atraumatic, normocephalic Neck: No jvd Respiratory: clear to auscultation, diminished breath sounds Cardiovascular: regular rate and rhythm, No systolic murmur Gastrointestinal: soft, No non-tender Neurological: No nl mental status, No nl speech Results Result Diagram: 08/11/16 0330 08/11/16 0330 Results 24 hrs Laboratory Tests Test 08/10/16 12:57 08/10/16 16:55 08/10/16 21:09 08/11/16 00:54 Bedside Glucose 244 H 233 H 200 189 Test 08/11/16 03:30 08/11/16 05:02 08/11/16 07:41 08/11/16 08:52 Alanine Aminotransferase (ALT/SGPT) 64 Albumin 4.0 Albumin/Globulin Ratio 0.97 Alkaline Phosphatase 147 H Anion Gap 32 H Aspartate Amino Transf (AST/SGOT) 49 H Basophils # 0.1 Basophils % 0.4 Blood Morphology Comment Blood Urea Nitrogen 97 H Calcium Level 8.4 Carbon Dioxide Level 21 Chloride Level 96 L Creatinine 8.22 H Direct Bilirubin 0.00 Eosinophils # 0.2 Eosinophils % 1.3 Globulin 4.10 H Glucose Level 206 Hematocrit 34.3 L Hemoglobin 11.4 L Indirect Bilirubin 0.0 Lymphocytes # 1.9 Lymphocytes % 10.5 L Magnesium Level 2.8 H Mean Corpuscular Hemoglobin 31.1 Mean Corpuscular Hemoglobin Concent 33.4 Mean Corpuscular Volume 93.2 Mean Platelet Volume 8.8 Monocytes # 1.2 H Monocytes % 6.5 Neutrophils # 14.7 H Neutrophils % 81.3 H Nucleated Red Blood Cells # 0.0 Nucleated Red Blood Cells % 0.0 Phosphorus Level 9.6 H Platelet Count 447 H Potassium Level 4.5 Red Blood Count 3.68 L Red Cell Distribution Width 15.3 H Sodium Level 144 Total Bilirubin 0.0 L Total Protein 8.1 White Blood Count 18.1 H Bedside Glucose 172 208 221 H Medications Medications Current Medications Norepinephrine/ Dextrose (Levophed/D5W) 500 ml @ 1.87 mls/hr TITRATE IV Last administered on 07/28/16 21:18; Admin Dose 11.25 MLS/HR; Start 07/28/16 at 04: 00 Labetalol HCl (Labetalol) 10 mg Q6H PRN IV sbp > 160 Last administered on 18:33; Admin Dose 10 MG; Start 07/28/16 at 00:30 Acetaminophen (Tylenol Supp) 650 mg Q6H PRN [place] PAIN AND OR ELEVATED TEMP Last administered on 07/31/16 17:30; Admin Dose 650 MG; Start 07/28/16 at 08:30 Miscellaneous Information 1 ea NOTE XX ; Start 07/28/16 at 09:00 Glucose (Glutose) 15 gm Q15M PRN PO DECREASED GLUCOSE; Start 07/28/16 at 09:00 Glucose (Glutose) 22.5 gm Q15M PRN PO DECREASED GLUCOSE; Start 07/28/16 at 09: 00 Dextrose (D50w Syringe) 25 ml Q15M PRN IV DECREASED GLUCOSE; Start 07/28/16 at 09:00 Dextrose (D50w Syringe) 50 ml Q15M PRN IV DECREASED GLUCOSE; Start 07/28/16 at 09:00 Glucagon (Glucagen) 1 mg Q15M PRN IM DECREASED GLUCOSE; Start 07/28/16 at 09:00 Glucose (Glutose) 15 gm Q15M PRN BUCCAL DECREASED GLUCOSE; Start 07/28/16 at 09 :00 IV Flush (NS 10 ml) 10 ml PRN PRN IV IV PROTOCOL; Start 07/29/16 at 17:00 Metoprolol Tartrate (Lopressor) 25 mg BID NGT Last administered on 08/10/16 21: 08; Admin Dose 25 MG; Start 07/31/16 at 09:00 Morphine Sulfate (morphine) 2 mg Q4 PRN IV PAIN Last administered on 08/02/16 00:07; Admin Dose 2 MG; Start 07/31/16 at 12:00 Pantoprazole (Protonix Iv) 40 mg DAILY@06 IV Last administered on 08/11/16 05: 10; Admin Dose 40 MG; Start 08/02/16 at 06:00 Lorazepam 1 mg 1 mg Q1H PRN IV SEIZURES Last administered on 08/09/16 18:25; Admin Dose 1 MG; Start 08/02/16 at 02:00 Piperacillin Sod/ Tazobactam Sod (Zosyn 2.25gm/ 50ml (Pmx)) 50 ml @ 100 mls/hr Q8 IVPB Last administered on 08/11/16 05:11; Admin Dose 100 MLS/HR; Start 08/02 at 22:00 Acetaminophen (Tylenol Liquid) 650 mg Q4H PRN NGT PAIN AND OR ELEVATED TEMP Last administered on 08/11/16 08:32; Admin Dose 650 MG; Start 08/03/16 at 00:00 Insulin Glargine (Lantus) 20 unit DAILY@08 SC Last administered on 08/11/16 07: 47; Admin Dose 20 UNIT; Start 08/03/16 at 12:00 Insulin Aspart NOVOLOG *MILD* ALGORI... Q4 SC Last administered on 08/11/16 08: 54; Admin Dose 3 UNIT; Start 08/03/16 at 13:00 Valproate Sodium/ Sodium Chloride (Depacon/NS) 57.5 ml @ 55 mls/hr Q6 IVPB Last administered on 08/11/16 05:11; Admin Dose 55 MLS/HR; Start 08/04/16 at 13: 00 Calcium Acetate 667 mg 667 mg Q6 NGT Last administered on 08/11/16 05:11; Admin Dose 667 MG; Start 08/05/16 at 08:30 Midazolam HCl 50 ml @ 0 mls/hr TITRATE IV Last administered on 08/05/16 22:38; Admin Dose 3 MLS/HR; Start 08/05/16 at 13:00 Fentanyl (Sublimaze) 100 ml @ 2.5 mls/hr TITRATE IV Last administered on 22:39; Admin Dose 10 MLS/HR; Start 08/05/16 at 16:00 Hydralazine HCl 10 mg 10 mg Q4H PRN IV ELEVATED SYSTOLIC BP Last administered on 08/09/16 18:20; Admin Dose 10 MG; Start 08/06/16 at 01:30 Vancomycin HCl 250 ml @ 125 mls/hr Q96H IVPB Last administered on 08/10/16 14: 59; Admin Dose 125 MLS/HR; Start 08/06/16 at 15:00 Levetiracetam/ Sodium Chloride (Keppra Iv/NS) 107.5 ml @ 420 mls/hr DAILY IVPB Last administered on 08/11/16 08:31; Admin Dose 420 MLS/HR; Start 08/08/16 at 09:00 Sodium Bicarbonate (Sodium Bicarbonate Tab) 650 mg Q8 PO Last administered on 05:13; Admin Dose 650 MG; Start 08/08/16 at 14:00 JACKSON CUNNINGHAM Aug 11, 2016 09:50
--- NOTE | 2016-08-11 10:42 | CONS ---
Date/Time of Note Date/Time of Note DATE: 08/11/16 TIME: 10:40 Consult Date/Type/Reason Admit Date/Time Jul 27, 2016 at 23:29 Initial Consult Date 07/28/16 Type of Consultation: pulmonary Subjective No significant changes overnight patient remains unresponsive on mechanical ventilation Currently he is not breathing over the set ventilator rate No seizure activity at present Objective Vital Signs Date Time Temp Pulse Resp B/P Pulse Ox O2 Delivery O2 Flow Rate FiO2 08/11/16 10:00 103 14 135/68 100 Mechanical Ventilator 08/11/16 09:59 30 08/11/16 08:00 100.0 Intake and Output 08/10/16 08/10/16 08/11/16 15:00 23:00 07:00 Intake Total 1267.5 ml 747.5 ml 390 ml Output Total 2500 ml Balance -1232.5 ml 747.5 ml 390 ml PHYSICAL EXAMINATION GENERAL: Elderly gentleman, intubated on mechanical ventilation, VITAL SIGNS: see below. HEENT: Pupils equal, round, and reactive to light. CARDIAC: S1, S2, tachycardia. CHEST: Diminished air entry bilaterally. ABDOMEN: Mildly distended. Bowel sounds present no guarding or rebound EXTREMITIES: No cyanosis, clubbing edema +1 NEUROLOGIC: Unable to assess Results/Medications Result Diagram: 08/11/16 03308/11/16 0330 Results 24 hrs Laboratory Tests Test 08/10/16 12:57 08/10/16 16:55 08/10/16 21:09 08/11/16 00:54 Bedside Glucose 244 H 233 H 200 189 Test 08/11/16 03:30 08/11/16 05:02 08/11/16 07:41 08/11/16 08:52 Alanine Aminotransferase (ALT/SGPT) 64 Albumin 4.0 Albumin/Globulin Ratio 0.97 Alkaline Phosphatase 147 H Anion Gap 32 H Aspartate Amino Transf (AST/SGOT) 49 H Basophils # 0.1 Basophils % 0.4 Blood Morphology Comment Blood Urea Nitrogen 97 H Calcium Level 8.4 Carbon Dioxide Level 21 Chloride Level 96 L Creatinine 8.22 H Direct Bilirubin 0.00 Eosinophils # 0.2 Eosinophils % 1.3 Globulin 4.10 H Glucose Level 206 Hematocrit 34.3 L Hemoglobin 11.4 L Indirect Bilirubin 0.0 Lymphocytes # 1.9 Lymphocytes % 10.5 L Magnesium Level 2.8 H Mean Corpuscular Hemoglobin 31.1 Mean Corpuscular Hemoglobin Concent 33.4 Mean Corpuscular Volume 93.2 Mean Platelet Volume 8.8 Monocytes # 1.2 H Monocytes % 6.5 Neutrophils # 14.7 H Neutrophils % 81.3 H Nucleated Red Blood Cells # 0.0 Nucleated Red Blood Cells % 0.0 Phosphorus Level 9.6 H Platelet Count 447 H Potassium Level 4.5 Red Blood Count 3.68 L Red Cell Distribution Width 15.3 H Sodium Level 144 Total Bilirubin 0.0 L Total Protein 8.1 White Blood Count 18.1 H Bedside Glucose 172 208 221 H Medications Current Medications Norepinephrine/ Dextrose (Levophed/D5W) 500 ml @ 1.87 mls/hr TITRATE IV Last administered on 07/28/16 21:18; Admin Dose 11.25 MLS/HR; Start 07/28/16 at 04: 00 Labetalol HCl (Labetalol) 10 mg Q6H PRN IV sbp > 160 Last administered on 18:33; Admin Dose 10 MG; Start 07/28/16 at 00:30 Acetaminophen (Tylenol Supp) 650 mg Q6H PRN [place] PAIN AND OR ELEVATED TEMP Last administered on 07/31/16 17:30; Admin Dose 650 MG; Start 07/28/16 at 08:30 Miscellaneous Information 1 ea NOTE XX ; Start 07/28/16 at 09:00 Glucose (Glutose) 15 gm Q15M PRN PO DECREASED GLUCOSE; Start 07/28/16 at 09:00 Glucose (Glutose) 22.5 gm Q15M PRN PO DECREASED GLUCOSE; Start 07/28/16 at 09: 00 Dextrose (D50w Syringe) 25 ml Q15M PRN IV DECREASED GLUCOSE; Start 07/28/16 at 09:00 Dextrose (D50w Syringe) 50 ml Q15M PRN IV DECREASED GLUCOSE; Start 07/28/16 at 09:00 Glucagon (Glucagen) 1 mg Q15M PRN IM DECREASED GLUCOSE; Start 07/28/16 at 09:00 Glucose (Glutose) 15 gm Q15M PRN BUCCAL DECREASED GLUCOSE; Start 07/28/16 at 09 :00 IV Flush (NS 10 ml) 10 ml PRN PRN IV IV PROTOCOL; Start 07/29/16 at 17:00 Metoprolol Tartrate (Lopressor) 25 mg BID NGT Last administered on 08/10/16 21: 08; Admin Dose 25 MG; Start 07/31/16 at 09:00 Morphine Sulfate (morphine) 2 mg Q4 PRN IV PAIN Last administered on 08/02/16 00:07; Admin Dose 2 MG; Start 07/31/16 at 12:00 Pantoprazole (Protonix Iv) 40 mg DAILY@06 IV Last administered on 08/11/16 05: 10; Admin Dose 40 MG; Start 08/02/16 at 06:00 Lorazepam 1 mg 1 mg Q1H PRN IV SEIZURES Last administered on 08/09/16 18:25; Admin Dose 1 MG; Start 08/02/16 at 02:00 Piperacillin Sod/ Tazobactam Sod (Zosyn 2.25gm/ 50ml (Pmx)) 50 ml @ 100 mls/hr Q8 IVPB Last administered on 08/11/16 05:11; Admin Dose 100 MLS/HR; Start 08/02 at 22:00 Acetaminophen (Tylenol Liquid) 650 mg Q4H PRN NGT PAIN AND OR ELEVATED TEMP Last administered on 08/11/16 08:32; Admin Dose 650 MG; Start 08/03/16 at 00:00 Insulin Glargine 20 unit 20 unit DAILY@08 SC Last administered on 08/11/16 07: 47; Admin Dose 20 UNIT; Start 08/03/16 at 12:00 Valproate Sodium/ Sodium Chloride (Depacon/NS) 57.5 ml @ 55 mls/hr Q6 IVPB Last administered on 08/11/16 05:11; Admin Dose 55 MLS/HR; Start 08/04/16 at 13: 00 Calcium Acetate 667 mg 667 mg Q6 NGT Last administered on 08/11/16 05:11; Admin Dose 667 MG; Start 08/05/16 at 08:30 Midazolam HCl 50 ml @ 0 mls/hr TITRATE IV Last administered on 08/05/16 22:38; Admin Dose 3 MLS/HR; Start 08/05/16 at 13:00 Fentanyl (Sublimaze) 100 ml @ 2.5 mls/hr TITRATE IV Last administered on 22:39; Admin Dose 10 MLS/HR; Start 08/05/16 at 16:00 Hydralazine HCl 10 mg 10 mg Q4H PRN IV ELEVATED SYSTOLIC BP Last administered on 08/09/16 18:20; Admin Dose 10 MG; Start 08/06/16 at 01:30 Vancomycin HCl 250 ml @ 125 mls/hr Q96H IVPB Last administered on 08/10/16 14: 59; Admin Dose 125 MLS/HR; Start 08/06/16 at 15:00 Levetiracetam/ Sodium Chloride (Keppra Iv/NS) 107.5 ml @ 420 mls/hr DAILY IVPB Last administered on 08/11/16 08:31; Admin Dose 420 MLS/HR; Start 08/08/16 at 09:00 Sodium Bicarbonate (Sodium Bicarbonate Tab) 650 mg Q8 PO Last administered on 05:13; Admin Dose 650 MG; Start 08/08/16 at 14:00 Insulin Aspart (Novolog Insulin Pen) NOVOLOG *MODERATE* ALGORI... Q4 SC ; Start 08/11/16 at 13:00 Assessment/Plan Chief Complaint/Hosp Course IMPRESSION: 1. s/p Cardiopulmonary arrest. 2. 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 3. End-stage renal failure. Hyperkalemia with metabolic acidosis 4. No evidence of occlusive lesions on cardiac catheterization. 5. HTN heart Disease 6. Asthma RECS 1. Vent support, patient not amenable secondary to significant evidence anoxic brain injury 2. Daily assessment of mental status 3. Spontaneous respiratory effort not consistently brain 4. Neurology recommendations 5. Continue DVT and GI prophylaxis 6. Continue hemodialysis with correction of electrolytes. Patient Will need tracheostomy and G-tube if family wish to continue current level of care Discussed again with patient's family at bedside and they are still deferring making a decision about goals of care. Problems: JAVED PIERCE MD, [facility] Aug 11, 2016 10:42
[2016-08-11] MEDS: LORAZEPAM 2 MG INJ IV PRN (12:25)
[2016-08-11] MEDS ORDERED: DILTIAZEM-D5W 125MG/125ML DRIP 125 ML ONE (12:34)
[2016-08-11] MEDS ORDERED: DILTIAZEM 25 MG INJ ONE (12:35)
[2016-08-11] MEDS ORDERED: DILTIAZEM 25 MG INJ IV ONE (13:00)
[2016-08-11] MEDS ORDERED: DILTIAZEM-D5W 125MG/125ML DRIP 125 ML IV SCH (13:00)
[2016-08-11] MEDS ORDERED: AMIODARONE 150 MG INJ IV STA (13:29)
[2016-08-11] MEDS ORDERED: AMIODARONE 150MG/D5W BOLUS 100 ML ONE (13:33)
--- NOTE | 2016-08-11 13:48 | PN ---
Date/Time of Note Date/Time of Note DATE: 08/11/16 TIME: 13:47 Assessment/Plan VTE Prophylaxis VTE Prophylaxis Intervention: heparin Lines/Catheters IV Catheter Type (from Nrs): LAURA CATH Urinary Cath still in place: No Assessment/Plan Assessment/Plan 1. PEA s/p cardiac arrest , etiology PEA due to hypoxia -CT Brain shows no CVA or signs of anoxic injury but repeat EEG is now suggesting brain -Neuro on the case - 2. ESRD on HD - on serial Hemodialysis due to high BUN- plan for HD today, catheter has been changed recently 3. SIRS with elevated white count and fever- R Lung opacity noted and may be Asp PNA -cont cefepime/vanc 4. VDRF - not able to wean off, family wants tracheostomy - has been consulted for tracheostomy 5. Hypotension - cardiac shock vs septic shock - resolved 6. CHF - acute - diastolic vs systolic dysfunction - fluid to be removed via dialysis - monitor I/O's 7. Metabolic with respiratory acidosis - 2/2 to cardiac arrest - s/p bicarb- resolved 8. Hx of hypertension - hold medications as patient is hypotensive 9. Type II DM-A1C at 7.3 -cont Lantus, NISS 10. Asthma - currently on vent, continue with breathing treatments 11. Smoking abuse - patient was to be counseled on cessation if extubated and alert 12. Obesity - consider nutrition consult once extubated 13. GI ppx - protonix 14. DVT ppx - hepari Subjective 24 Hr Interval Summary Free Text/Dictation pt remains intubated, plan for HD , family wants to have Tracheostomy/G tube after having multiple discussions Exam/Review of Systems Vital Signs Vitals Vital Signs Date Time Temp Pulse Resp B/P Pulse Ox O2 Delivery O2 Flow Rate FiO2 08/11/16 13:10 163 20 104/63 98 Mechanical Ventilator 08/11/16 13:00 99.1 08/11/16 11:02 30 Intake and Output 08/10/16 08/10/16 08/11/16 15:00 23:00 07:00 Intake Total 1267.5 ml 747.5 ml 390 ml Output Total 2500 ml Balance -1232.5 ml 747.5 ml 390 ml Exam Constitutional: non-verbal, intubated, sedated Respiratory: bilateral crackles +, no wheezing Cardiovascular: regular rate and rhythm Musculoskeletal: nl extremities to inspection Neurological: unresponsive + laura Hd catheter Results Result Diagram: 08/11/16 0330 08/11/16 0330 Results 24 hrs Laboratory Tests Test 08/10/16 16:55 08/10/16 21:09 08/11/16 00:54 08/11/16 03:30 Bedside Glucose 233 H 200 189 Alanine Aminotransferase (ALT/SGPT) 64 Albumin 4.0 Albumin/Globulin Ratio 0.97 Alkaline Phosphatase 147 H Anion Gap 32 H Aspartate Amino Transf (AST/SGOT) 49 H Basophils # 0.1 Basophils % 0.4 Blood Morphology Comment Blood Urea Nitrogen 97 H Calcium Level 8.4 Carbon Dioxide Level 21 Chloride Level 96 L Creatinine 8.22 H Direct Bilirubin 0.00 Eosinophils # 0.2 Eosinophils % 1.3 Globulin 4.10 H Glucose Level 206 Hematocrit 34.3 L Hemoglobin 11.4 L Indirect Bilirubin 0.0 Lymphocytes # 1.9 Lymphocytes % 10.5 L Magnesium Level 2.8 H Mean Corpuscular Hemoglobin 31.1 Mean Corpuscular Hemoglobin Concent 33.4 Mean Corpuscular Volume 93.2 Mean Platelet Volume 8.8 Monocytes # 1.2 H Monocytes % 6.5 Neutrophils # 14.7 H Neutrophils % 81.3 H Nucleated Red Blood Cells # 0.0 Nucleated Red Blood Cells % 0.0 Phosphorus Level 9.6 H Platelet Count 447 H Potassium Level 4.5 Red Blood Count 3.68 L Red Cell Distribution Width 15.3 H Sodium Level 144 Total Bilirubin 0.0 L Total Protein 8.1 White Blood Count 18.1 H Test 08/11/16 05:02 08/11/16 07:41 08/11/16 08:52 08/11/16 12:41 Bedside Glucose 172 208 221 H 207 Medications Medications Current Medications Norepinephrine/ Dextrose (Levophed/D5W) 500 ml @ 1.87 mls/hr TITRATE IV Last administered on 07/28/16 21:18; Admin Dose 11.25 MLS/HR; Start 07/28/16 at 04: 00 Labetalol HCl (Labetalol) 10 mg Q6H PRN IV sbp > 160 Last administered on 18:33; Admin Dose 10 MG; Start 07/28/16 at 00:30 Acetaminophen (Tylenol Supp) 650 mg Q6H PRN [place] PAIN AND OR ELEVATED TEMP Last administered on 07/31/16 17:30; Admin Dose 650 MG; Start 07/28/16 at 08:30 Miscellaneous Information 1 ea NOTE XX ; Start 07/28/16 at 09:00 Glucose (Glutose) 15 gm Q15M PRN PO DECREASED GLUCOSE; Start 07/28/16 at 09:00 Glucose (Glutose) 22.5 gm Q15M PRN PO DECREASED GLUCOSE; Start 07/28/16 at 09: 00 Dextrose (D50w Syringe) 25 ml Q15M PRN IV DECREASED GLUCOSE; Start 07/28/16 at 09:00 Dextrose (D50w Syringe) 50 ml Q15M PRN IV DECREASED GLUCOSE; Start 07/28/16 at 09:00 Glucagon (Glucagen) 1 mg Q15M PRN IM DECREASED GLUCOSE; Start 07/28/16 at 09:00 Glucose (Glutose) 15 gm Q15M PRN BUCCAL DECREASED GLUCOSE; Start 07/28/16 at 09 :00 IV Flush (NS 10 ml) 10 ml PRN PRN IV IV PROTOCOL; Start 07/29/16 at 17:00 Metoprolol Tartrate (Lopressor) 25 mg BID NGT Last administered on 08/10/16 21: 08; Admin Dose 25 MG; Start 07/31/16 at 09:00 Morphine Sulfate (morphine) 2 mg Q4 PRN IV PAIN Last administered on 08/02/16 00:07; Admin Dose 2 MG; Start 07/31/16 at 12:00 Pantoprazole (Protonix Iv) 40 mg DAILY@06 IV Last administered on 08/11/16 05: 10; Admin Dose 40 MG; Start 08/02/16 at 06:00 Lorazepam 1 mg 1 mg Q1H PRN IV SEIZURES Last administered on 08/11/16 12:25; Admin Dose 1 MG; Start 08/02/16 at 02:00 Piperacillin Sod/ Tazobactam Sod (Zosyn 2.25gm/ 50ml (Pmx)) 50 ml @ 100 mls/hr Q8 IVPB Last administered on 08/11/16 05:11; Admin Dose 100 MLS/HR; Start 08/02 at 22:00 Acetaminophen (Tylenol Liquid) 650 mg Q4H PRN NGT PAIN AND OR ELEVATED TEMP Last administered on 08/11/16 08:32; Admin Dose 650 MG; Start 08/03/16 at 00:00 Insulin Glargine 20 unit 20 unit DAILY@08 SC Last administered on 08/11/16 07: 47; Admin Dose 20 UNIT; Start 08/03/16 at 12:00 Valproate Sodium/ Sodium Chloride (Depacon/NS) 57.5 ml @ 55 mls/hr Q6 IVPB Last administered on 08/11/16 11:23; Admin Dose 55 MLS/HR; Start 08/04/16 at 13: 00 Calcium Acetate 667 mg 667 mg Q6 NGT Last administered on 08/11/16 11:27; Admin Dose 667 MG; Start 08/05/16 at 08:30 Midazolam HCl 50 ml @ 0 mls/hr TITRATE IV Last administered on 08/05/16 22:38; Admin Dose 3 MLS/HR; Start 08/05/16 at 13:00 Fentanyl (Sublimaze) 100 ml @ 2.5 mls/hr TITRATE IV Last administered on 22:39; Admin Dose 10 MLS/HR; Start 08/05/16 at 16:00 Hydralazine HCl 10 mg 10 mg Q4H PRN IV ELEVATED SYSTOLIC BP Last administered on 08/09/16 18:20; Admin Dose 10 MG; Start 08/06/16 at 01:30 Vancomycin HCl 250 ml @ 125 mls/hr Q96H IVPB Last administered on 08/10/16 14: 59; Admin Dose 125 MLS/HR; Start 08/06/16 at 15:00 Levetiracetam/ Sodium Chloride (Keppra Iv/NS) 107.5 ml @ 420 mls/hr DAILY IVPB Last administered on 08/11/16 08:31; Admin Dose 420 MLS/HR; Start 08/08/16 at 09:00 Sodium Bicarbonate (Sodium Bicarbonate Tab) 650 mg Q8 PO Last administered on 05:13; Admin Dose 650 MG; Start 08/08/16 at 14:00 Insulin Aspart NOVOLOG *MODERATE* ALGORI... Q4 SC Last administered on 12:47; Admin Dose 4 UNIT; Start 08/11/16 at 13:00 Diltiazem HCl 125 ml @ 5 mls/hr TITRATE IV Last administered on 08/11/16 13:28 ; Admin Dose 5 MLS/HR; Start 08/11/16 at 13:00 Amiodarone HCl (Cordarone 150mg/ D5W Bolus) 100 ml @ 200 mls/hr ONCE ONCE IV Last administered on 08/11/16 13:38; Admin Dose 200 MLS/HR; Start 08/11/16 at 14: 00; Stop 08/11/16 at 14:29 NINFA PACK MD Aug 11, 2016 13:48
[2016-08-11] MEDS ORDERED: AMIODARONE 150MG/D5W BOLUS 100 ML IV ONE (14:00)
[2016-08-11] MEDS ORDERED: SOD CHLORIDE 0.9% 250 ML IV ONE (14:30)
[2016-08-11] MEDS ORDERED: HEPARIN 25000 UNITS/250 ML 250 ML IV SCH (16:00)
[2016-08-11] MEDS: HEPARIN 1000 UNITS/ML 10 ML INJ IV PRN (16:04)
--- NOTE | 2016-08-11 16:09 | OPR ---
Date/Time of Note Date/Time of Note DATE: 08/11/16 TIME: 16:05 Operative Report Free Text/Dictation Cardioversion Note: Date of procedure: 08/11/2016 Indication: Unstable afib with RVR Procedure: Pt given IV heparin prior to cardioversion. Synchronized cardioversion x 1 at 150 J. Back to sinus rhythm, rate ~90s. SBP 120s. Sats 100 %. JACKSON CUNNINGHAM Aug 11, 2016 16:08
[2016-08-11 16:13] LABS: ADD SCAN DIFF NO
[2016-08-11] MEDS: HEPARIN 25000 UNITS/250 ML 250 ML IV SCH (16:15)
[2016-08-11] MEDS ORDERED: NORepinephrine 8MG/250 ML (PMX 250 ML ONE (16:15)
[2016-08-11 16:19] LABS: INR 1.14; PROTIME 14.6 Sec (12.2-14.2); PT RATIO 1.1
[2016-08-11 16:25] LABS: BASOPHIL # 0.1 10^3/ul (0.0-0.1); BASOPHILS % 0.6 % (0.0-2.0); EOSINOPHILS # 0.3 10^3/ul (0.0-0.5); EOSINOPHILS % 1.7 % (0.0-7.0); HEMATOCRIT 33.9 % (42.0-52.0); HEMOGLOBIN 11.2 g/dl (14.0-18.0); LYMPHOCYTES # 1.5 10^3/ul (0.8-2.9); LYMPHOCYTES % 8.3 % (15.0-51.0); MEAN CORPUSCULAR HEMOGLOBIN 31.4 pg (29.0-33.0); MEAN PLATELET VOLUME 10.1 fl (7.4-10.4); MONOCYTE # 1.2 10^3/ul (0.3-0.9); MONOCYTES % 6.8 % (0.0-11.0); NEUTROPHIL # 14.6 10^3/ul (1.6-7.5); NEUTROPHILS % 79.9 % (39.0-77.0); PLATELET COUNT 414 10^3/UL (140-415); RED BLOOD COUNT 3.57 10^6/ul (4.70-6.10); RED CELL DISTRIBUTION WIDTH 14.6 % (11.5-14.5); WHITE BLOOD COUNT 18.2 10^3/ul (4.8-10.8)
[2016-08-11] MEDS ORDERED: NORepinephrine 8MG/250 ML (PMX 250 ML IV SCH (16:30)
[2016-08-11] MEDS ORDERED: AMIODARONE 900 MG in DEXTROSE 5% 482 ML IV SCH (17:00)
[2016-08-11] MEDS ORDERED: METOPROLOL 50 MG TAB NGT SCH (21:00)
[2016-08-11] MEDS ORDERED: METOPROLOL 25 MG TAB NGT SCH (21:00)
--- NOTE | 2016-08-11 21:53 | PN ---
Date/Time of Note Date/Time of Note DATE: 08/11/16 TIME: 21:52 Assessment/Plan Lines/Catheters IV Catheter Type (from Nrsg): LAURA CATH Lorenz in Place (from Nrsg): No Assessment/Plan Chief Complaint/Hosp Course Respiratory Failure Plan for tracheostomy Problems: Subjective 24 Hr Interval Summary Constitutional: improved Pain Control: mild Exam/Review of Systems Vital Signs Vitals Vital Signs Date Time Temp Pulse Resp B/P Pulse Ox O2 Delivery O2 Flow Rate FiO2 08/11/16 20:15 95 16 126/71 98 Mechanical Ventilator 08/11/16 20:05 30 08/11/16 20:00 98.9 Intake and Output 08/10/16 08/10/16 08/11/16 15:00 23:00 07:00 Intake Total 1267.5 ml 747.5 ml 390 ml Output Total 2500 ml Balance -1232.5 ml 747.5 ml 390 ml Exam Neck: non-tender, supple Respiratory: clear to auscultation, normal air movement Cardiovascular: nl pulses, regular rate and rhythm Results Result Diagram: 08/11/16 1605 08/11/16 0330 ARMEN BADILLO MD Aug 11, 2016 21:53
[2016-08-12] VITALS (94 sets, daily range): BP systolic 97–177; BP diastolic 64–121; PULSE 84–112; RESP 15–29
[2016-08-12] MEDS: IPRATROPIUM (HFA) 12.9 GM INHALER INH SCH ×6 (00:59→21:49)
[2016-08-12] MEDS: ALBUTEROL HFA 8 GM INHALER INH SCH ×6 (00:59→21:49)
[2016-08-12] MEDS: CALCIUM ACETATE 667 MG CAP NGT SCH ×5 (01:32→23:38)
[2016-08-12] MEDS: VALPROATE INJ 750 MG in SOD CHLORIDE 0.9% 50 ML IVPB SCH ×5 (01:33→23:37)
[2016-08-12] MEDS: INSULIN ASPART [NOVOLOG] 3 ML PEN SC SCH ×6 (01:39→22:51)
[2016-08-12] MEDS: HEPARIN 1000 UNITS/ML 10 ML INJ IV PRN (01:41)
[2016-08-12 05:08] LABS: ADD SCAN DIFF NO
[2016-08-12 05:20] LABS: BASOPHIL # 0.1 10^3/ul (0.0-0.1); BASOPHILS % 0.4 % (0.0-2.0); EOSINOPHILS # 0.4 10^3/ul (0.0-0.5); EOSINOPHILS % 2.4 % (0.0-7.0); HEMATOCRIT 32.7 % (42.0-52.0); HEMOGLOBIN 10.5 g/dl (14.0-18.0); LYMPHOCYTES # 2.1 10^3/ul (0.8-2.9); LYMPHOCYTES % 12.2 % (15.0-51.0); MEAN CORPUSCULAR HEMOGLOBIN 30.7 pg (29.0-33.0); MEAN CORPUSCULAR HGB CONC 32.1 g/dl (32.0-37.0); MEAN CORPUSCULAR VOLUME 95.6 fl (82.0-101.0); MEAN PLATELET VOLUME 10.6 fl (7.4-10.4); MONOCYTES % 6.1 % (0.0-11.0); NEUTROPHIL # 12.9 10^3/ul (1.6-7.5); NEUTROPHILS % 76.2 % (39.0-77.0); PLATELET COUNT 409 10^3/UL (140-415); RED BLOOD COUNT 3.42 10^6/ul (4.70-6.10); RED CELL DISTRIBUTION WIDTH 14.6 % (11.5-14.5)
[2016-08-12 05:31] LABS: ALBUMIN 3.7 g/dl (3.3-4.9); POTASSIUM 4.8 mmol/L (3.5-5.1)
[2016-08-12 05:34] LABS: ALBUMIN/GLOBULIN RATIO 0.97; PHOSPHORUS 11.7 mg/dl (2.5-4.9); TOTAL PROTEIN 7.5 g/dl (6.1-8.1)
[2016-08-12] MEDS: PANTOPRAZOLE 40 MG INJ IV SCH (06:04)
[2016-08-12] MEDS: PIPER-TAZO 2.25 GM (PMX) 50 ML IVPB SCH ×3 (06:05→22:51)
[2016-08-12] MEDS: NA BICARBONATE 650 MG TAB PO SCH ×3 (06:05→22:52)
[2016-08-12 06:31] LABS: CREATININE 10.63 mg/dl (0.61-1.24)
[2016-08-12] MEDS ORDERED: FENTAnyl 50 MCG/ML VIAL ONE (08:00)
[2016-08-12] MEDS ORDERED: MIDAZOLAM 1 MG/ML 2 ML INJ ONE ×2 (08:00→08:20)
--- NOTE | 2016-08-12 08:05 | HPN ---
Date/Time of Note Date/Time of Note DATE: 08/12/16 TIME: 08:05 Interval H&P Admission Note Pt. seen H&P reviewed: No system changes ARMEN BADILLO MD Aug 12, 2016 08:05
--- NOTE | 2016-08-12 08:25 | CONS ---
Date/Time of Note Date/Time of Note DATE: 08/12/16 TIME: 08:23 Assessment/Plan Assessment/Plan Chief Complaint/Hosp Course 56 YO firs presented to ED 07-27-16 after unresponsive from cardiac arrest. During hospitalization, pt has remained intubated with an OG tube in place with minimal residual. Pt has been unable to be weaned off ventilator; however, he is no longer on pressor support or sedated. Per neurology, corneal reflexes bilaterally and gag reflexes are present. Awaiting further evaluation from neurology to determine brain functioning. Family has consented to EGD + PEG. Problems: Additional Assessment/Plan Dysphagia * OG tube in place at 30ml * Defer EGD and PEG till tracheostomy is placed * Nutrition consult to determine rate and type of G tube feed End-stage renal disease * Continue hemodialysis Status post a cardiac arrest Altered level of consciousness, likely 2/2 to anoxic encephalopathy. Loose stool * Test for C Diff Insulin-dependent diabetes mellitus Seizures Ventilator dependent respiratory failure COPD Further recommendations depend on clinical course Pt seen in collaboration with Dr. French Consultation Date/Type/Reason Admit Date/Time Jul 27, 2016 at 23:29 Initial Consult Date 07/28/16 Type of Consultation: Gastroenterology 24 HR Interval Summary Free Text/Dictation Tracheostomy planned today PEG to follow Exam/Review of Systems Vital Signs Vitals Vital Signs Date Time Temp Pulse Resp B/P Pulse Ox O2 Delivery O2 Flow Rate FiO2 08/12/16 06:30 95 17 156/74 100 Mechanical Ventilator 08/12/16 05:10 30 08/12/16 04:00 99.1 Intake and Output 08/11/16 08/11/16 08/12/16 15:00 23:00 07:00 Intake Total 699.5 ml 553.239 ml 246.39 ml Output Total 30 ml 0 ml 0 ml Balance 669.5 ml 553.239 ml 246.39 ml Exam Constitutional: non-verbal Head: atraumatic ENMT: nl external ears & nose, nl lips & teeth, nl nasal mucosa & septum Respiratory: other (intubated) Cardiovascular: regular rate and rhythm Gastrointestinal: non-tender, soft Musculoskeletal: nl extremities to inspection Neurological: unresponsive Results Result Diagram: 08/12/16 0415 08/12/16 0415 Results 24 hrs Laboratory Tests Test 08/11/16 08:52 08/11/16 12:41 08/11/16 16:00 08/11/16 16:05 Bedside Glucose 221 H 207 Activated Partial Thromboplast Time 26.0 INR International Normalized Ratio 1.14 Prothrombin Time 14.6 H Prothrombin Time Ratio 1.1 Basophils # 0.1 Basophils % 0.6 Eosinophils # 0.3 Eosinophils % 1.7 Hematocrit 33.9 L Hemoglobin 11.2 L Lymphocytes # 1.5 Lymphocytes % 8.3 L Mean Corpuscular Hemoglobin 31.4 Mean Corpuscular Hemoglobin Concent 33.0 Mean Corpuscular Volume 95.0 Mean Platelet Volume 10.1 Monocytes # 1.2 H Monocytes % 6.8 Neutrophils # 14.6 H Neutrophils % 79.9 H Nucleated Red Blood Cells # 0.0 Nucleated Red Blood Cells % 0.0 Platelet Count 414 Red Blood Count 3.57 L Red Cell Distribution Width 14.6 H White Blood Count 18.2 H Test 08/11/16 17:26 08/11/16 20:43 08/11/16 21:50 08/12/16 01:30 Bedside Glucose 194 193 211 Activated Partial Thromboplast Time 33.5 Test 08/12/16 04:15 08/12/16 04:16 Activated Partial Thromboplast Time 72.0 *H Alanine Aminotransferase (ALT/SGPT) 44 Albumin 3.7 Albumin/Globulin Ratio 0.97 Alkaline Phosphatase 122 H Anion Gap 34 H Aspartate Amino Transf (AST/SGOT) 40 Basophils # 0.1 Basophils % 0.4 Blood Urea Nitrogen 125 H Calcium Level 8.0 L Carbon Dioxide Level 19 L Chloride Level 97 Creatinine 10.63 #H Direct Bilirubin 0.00 Eosinophils # 0.4 Eosinophils % 2.4 Globulin 3.80 H Glucose Level 178 Hematocrit 32.7 L Hemoglobin 10.5 L Indirect Bilirubin 0.0 Lymphocytes # 2.1 Lymphocytes % 12.2 L Magnesium Level 3.0 H Mean Corpuscular Hemoglobin 30.7 Mean Corpuscular Hemoglobin Concent 32.1 Mean Corpuscular Volume 95.6 Mean Platelet Volume 10.6 H Monocytes # 1.0 H Monocytes % 6.1 Neutrophils # 12.9 H Neutrophils % 76.2 Nucleated Red Blood Cells # 0.0 Nucleated Red Blood Cells % 0.0 Phosphorus Level 11.7 #H Platelet Count 409 Potassium Level 4.8 Red Blood Count 3.42 L Red Cell Distribution Width 14.6 H Sodium Level 145 H Total Bilirubin 0.0 L Total Protein 7.5 White Blood Count 17.0 H Bedside Glucose 127 Medications Medications Current Medications Norepinephrine/ Dextrose (Levophed/D5W) 500 ml @ 1.87 mls/hr TITRATE IV Last administered on 07/28/16 21:18; Admin Dose 11.25 MLS/HR; Start 07/28/16 at 04: 00 Labetalol HCl (Labetalol) 10 mg Q6H PRN IV sbp > 160 Last administered on 18:33; Admin Dose 10 MG; Start 07/28/16 at 00:30 Acetaminophen (Tylenol Supp) 650 mg Q6H PRN [place] PAIN AND OR ELEVATED TEMP Last administered on 07/31/16 17:30; Admin Dose 650 MG; Start 07/28/16 at 08:30 Miscellaneous Information 1 ea NOTE XX ; Start 07/28/16 at 09:00 Glucose (Glutose) 15 gm Q15M PRN PO DECREASED GLUCOSE; Start 07/28/16 at 09:00 Glucose (Glutose) 22.5 gm Q15M PRN PO DECREASED GLUCOSE; Start 07/28/16 at 09: 00 Dextrose (D50w Syringe) 25 ml Q15M PRN IV DECREASED GLUCOSE; Start 07/28/16 at 09:00 Dextrose (D50w Syringe) 50 ml Q15M PRN IV DECREASED GLUCOSE; Start 07/28/16 at 09:00 Glucagon (Glucagen) 1 mg Q15M PRN IM DECREASED GLUCOSE; Start 07/28/16 at 09:00 Glucose (Glutose) 15 gm Q15M PRN BUCCAL DECREASED GLUCOSE; Start 07/28/16 at 09 :00 IV Flush (NS 10 ml) 10 ml PRN PRN IV IV PROTOCOL; Start 07/29/16 at 17:00 Morphine Sulfate (morphine) 2 mg Q4 PRN IV PAIN Last administered on 08/02/16 00:07; Admin Dose 2 MG; Start 07/31/16 at 12:00 Pantoprazole (Protonix Iv) 40 mg DAILY@06 IV Last administered on 08/12/16 06: 04; Admin Dose 40 MG; Start 08/02/16 at 06:00 Lorazepam 1 mg 1 mg Q1H PRN IV SEIZURES Last administered on 08/11/16 12:25; Admin Dose 1 MG; Start 08/02/16 at 02:00 Piperacillin Sod/ Tazobactam Sod (Zosyn 2.25gm/ 50ml (Pmx)) 50 ml @ 100 mls/hr Q8 IVPB Last administered on 08/12/16 06:05; Admin Dose 100 MLS/HR; Start at 22:00 Acetaminophen (Tylenol Liquid) 650 mg Q4H PRN NGT PAIN AND OR ELEVATED TEMP Last administered on 08/11/16 08:32; Admin Dose 650 MG; Start 08/03/16 at 00:00 Insulin Glargine 20 unit 20 unit DAILY@08 SC Last administered on 08/11/16 07: 47; Admin Dose 20 UNIT; Start 08/03/16 at 12:00 Valproate Sodium/ Sodium Chloride (Depacon/NS) 57.5 ml @ 55 mls/hr Q6 IVPB Last administered on 08/12/16 06:05; Admin Dose 55 MLS/HR; Start 08/04/16 at 13: 00 Calcium Acetate 667 mg 667 mg Q6 NGT Last administered on 08/12/16 06:05; Admin Dose 667 MG; Start 08/05/16 at 08:30 Midazolam HCl 50 ml @ 0 mls/hr TITRATE IV Last administered on 08/05/16 22:38; Admin Dose 3 MLS/HR; Start 08/05/16 at 13:00 Fentanyl (Sublimaze) 100 ml @ 2.5 mls/hr TITRATE IV Last administered on 22:39; Admin Dose 10 MLS/HR; Start 08/05/16 at 16:00 Hydralazine HCl 10 mg 10 mg Q4H PRN IV ELEVATED SYSTOLIC BP Last administered on 08/09/16 18:20; Admin Dose 10 MG; Start 08/06/16 at 01:30 Vancomycin HCl 250 ml @ 125 mls/hr Q96H IVPB Last administered on 08/10/16 14: 59; Admin Dose 125 MLS/HR; Start 08/06/16 at 15:00 Levetiracetam/ Sodium Chloride (Keppra Iv/NS) 107.5 ml @ 420 mls/hr DAILY IVPB Last administered on 08/11/16 08:31; Admin Dose 420 MLS/HR; Start 08/08/16 at 09:00 Sodium Bicarbonate (Sodium Bicarbonate Tab) 650 mg Q8 PO Last administered on 06:05; Admin Dose 650 MG; Start 08/08/16 at 14:00 Insulin Aspart NOVOLOG *MODERATE* ALGORI... Q4 SC Last administered on 01:39; Admin Dose 4 UNIT; Start 08/11/16 at 13:00 Diltiazem HCl 125 ml @ 5 mls/hr TITRATE IV Last administered on 08/11/16 13:28 ; Admin Dose 5 MLS/HR; Start 08/11/16 at 13:00 Amiodarone HCl/ Dextrose (Cordarone Iv/ D5W) 500 ml @ 0 mls/hr Q0M IV Last administered on 08/11/16 17:08; Admin Dose 1 MLS/HR; Start 08/11/16 at 17:00; Stop 08/12/16 at 16:59 CHON TURNER Aug 12, 2016 08:25
--- NOTE | 2016-08-12 08:33 | PN ---
Date/Time of Note Date/Time of Note DATE: 08/12/16 TIME: 08:31 Assessment/Plan VTE Prophylaxis VTE Prophylaxis Intervention: heparin Lines/Catheters IV [facility]from [facility]URA CATH Urinary Cath still in place: No Assessment/Plan Assessment/Plan 1. PEA s/p cardiac arrest , etiology PEA due to hypoxia -CT Brain shows no CVA or signs of anoxic injury but repeat EEG is now suggesting brain -Neuro on the case - 2. ESRD on HD - on serial Hemodialysis due to high BUN- plan for HD today, catheter has been changed recently 3. SIRS with elevated white count and fever- R Lung opacity noted and may be Asp PNA -cont cefepime/vanc 4. VDRF - not able to wean off, family wants tracheostomy - planning for tracheostomy 5. Hypotension - cardiac shock vs septic shock - resolved 6. CHF - acute - diastolic vs systolic dysfunction - fluid to be removed via dialysis - monitor I/O's 7. Metabolic with respiratory acidosis - 2/2 to cardiac arrest - s/p bicarb- resolved 8. Hx of hypertension - hold medications as patient is hypotensive 9. Type II DM-A1C at 7.3 -cont Lantus, NISS 10. Asthma - currently on vent, continue with breathing treatments 11. Smoking abuse - patient was to be counseled on cessation if extubated and alert 12. Obesity - consider nutrition consult once extubated 13. GI ppx - protonix 14. DVT ppx - hepari Subjective 24 Hr Interval Summary Free Text/Dictation pt planned for tracheostomy Exam/Review of Systems Vital Signs Vitals Vital Signs Date Time Temp Pulse Resp B/P Pulse Ox O2 Delivery O2 Flow Rate FiO2 08/12/16 06:30 95 17 156/74 100 Mechanical Ventilator 08/12/16 05:10 30 08/12/16 04:00 99.1 Intake and Output 08/11/16 08/11/16 08/12/16 15:00 23:00 07:00 Intake Total 699.5 ml 553.239 ml 246.39 ml Output Total 30 ml 0 ml 0 ml Balance 669.5 ml 553.239 ml 246.39 ml Exam Constitutional: non-verbal, intubated, sedated Respiratory: bilateral crackles +, no wheezing Cardiovascular: regular rate and rhythm Musculoskeletal: nl extremities to inspection Neurological: unresponsive + laura Hd catheter Results Result Diagram: 08/12/16 0415 08/12/16 0415 Results 24 hrs Laboratory Tests Test 08/11/16 08:52 08/11/16 12:41 08/11/16 16:00 08/11/16 16:05 Bedside Glucose 221 H 207 Activated Partial Thromboplast Time 26.0 INR International Normalized Ratio 1.14 Prothrombin Time 14.6 H Prothrombin Time Ratio 1.1 Basophils # 0.1 Basophils % 0.6 Eosinophils # 0.3 Eosinophils % 1.7 Hematocrit 33.9 L Hemoglobin 11.2 L Lymphocytes # 1.5 Lymphocytes % 8.3 L Mean Corpuscular Hemoglobin 31.4 Mean Corpuscular Hemoglobin Concent 33.0 Mean Corpuscular Volume 95.0 Mean Platelet Volume 10.1 Monocytes # 1.2 H Monocytes % 6.8 Neutrophils # 14.6 H Neutrophils % 79.9 H Nucleated Red Blood Cells # 0.0 Nucleated Red Blood Cells % 0.0 Platelet Count 414 Red Blood Count 3.57 L Red Cell Distribution Width 14.6 H White Blood Count 18.2 H Test 08/11/16 17:26 08/11/16 20:43 08/11/16 21:50 08/12/16 01:30 Bedside Glucose 194 193 211 Activated Partial Thromboplast Time 33.5 Test 08/12/16 04:15 08/12/16 04:16 Activated Partial Thromboplast Time 72.0 *H Alanine Aminotransferase (ALT/SGPT) 44 Albumin 3.7 Albumin/Globulin Ratio 0.97 Alkaline Phosphatase 122 H Anion Gap 34 H Aspartate Amino Transf (AST/SGOT) 40 Basophils # 0.1 Basophils % 0.4 Blood Urea Nitrogen 125 H Calcium Level 8.0 L Carbon Dioxide Level 19 L Chloride Level 97 Creatinine 10.63 #H Direct Bilirubin 0.00 Eosinophils # 0.4 Eosinophils % 2.4 Globulin 3.80 H Glucose Level 178 Hematocrit 32.7 L Hemoglobin 10.5 L Indirect Bilirubin 0.0 Lymphocytes # 2.1 Lymphocytes % 12.2 L Magnesium Level 3.0 H Mean Corpuscular Hemoglobin 30.7 Mean Corpuscular Hemoglobin Concent 32.1 Mean Corpuscular Volume 95.6 Mean Platelet Volume 10.6 H Monocytes # 1.0 H Monocytes % 6.1 Neutrophils # 12.9 H Neutrophils % 76.2 Nucleated Red Blood Cells # 0.0 Nucleated Red Blood Cells % 0.0 Phosphorus Level 11.7 #H Platelet Count 409 Potassium Level 4.8 Red Blood Count 3.42 L Red Cell Distribution Width 14.6 H Sodium Level 145 H Total Bilirubin 0.0 L Total Protein 7.5 White Blood Count 17.0 H Bedside Glucose 127 Medications Medications Current Medications Norepinephrine/ Dextrose (Levophed/D5W) 500 ml @ 1.87 mls/hr TITRATE IV Last administered on 07/28/16 21:18; Admin Dose 11.25 MLS/HR; Start 07/28/16 at 04: 00 Labetalol HCl (Labetalol) 10 mg Q6H PRN IV sbp > 160 Last administered on 18:33; Admin Dose 10 MG; Start 07/28/16 at 00:30 Acetaminophen (Tylenol Supp) 650 mg Q6H PRN [place] PAIN AND OR ELEVATED TEMP Last administered on 07/31/16 17:30; Admin Dose 650 MG; Start 07/28/16 at 08:30 Miscellaneous Information 1 ea NOTE XX ; Start 07/28/16 at 09:00 Glucose (Glutose) 15 gm Q15M PRN PO DECREASED GLUCOSE; Start 07/28/16 at 09:00 Glucose (Glutose) 22.5 gm Q15M PRN PO DECREASED GLUCOSE; Start 07/28/16 at 09: 00 Dextrose (D50w Syringe) 25 ml Q15M PRN IV DECREASED GLUCOSE; Start 07/28/16 at 09:00 Dextrose (D50w Syringe) 50 ml Q15M PRN IV DECREASED GLUCOSE; Start 07/28/16 at 09:00 Glucagon (Glucagen) 1 mg Q15M PRN IM DECREASED GLUCOSE; Start 07/28/16 at 09:00 Glucose (Glutose) 15 gm Q15M PRN BUCCAL DECREASED GLUCOSE; Start 07/28/16 at 09 :00 IV Flush (NS 10 ml) 10 ml PRN PRN IV IV PROTOCOL; Start 07/29/16 at 17:00 Morphine Sulfate (morphine) 2 mg Q4 PRN IV PAIN Last administered on 08/02/16 00:07; Admin Dose 2 MG; Start 07/31/16 at 12:00 Pantoprazole (Protonix Iv) 40 mg DAILY@06 IV Last administered on 08/12/16 06: 04; Admin Dose 40 MG; Start 08/02/16 at 06:00 Lorazepam 1 mg 1 mg Q1H PRN IV SEIZURES Last administered on 08/11/16 12:25; Admin Dose 1 MG; Start 08/02/16 at 02:00 Piperacillin Sod/ Tazobactam Sod (Zosyn 2.25gm/ 50ml (Pmx)) 50 ml @ 100 mls/hr Q8 IVPB Last administered on 08/12/16 06:05; Admin Dose 100 MLS/HR; Start at 22:00 Acetaminophen (Tylenol Liquid) 650 mg Q4H PRN NGT PAIN AND OR ELEVATED TEMP Last administered on 08/11/16 08:32; Admin Dose 650 MG; Start 08/03/16 at 00:00 Insulin Glargine 20 unit 20 unit DAILY@08 SC Last administered on 08/11/16 07: 47; Admin Dose 20 UNIT; Start 08/03/16 at 12:00 Valproate Sodium/ Sodium Chloride (Depacon/NS) 57.5 ml @ 55 mls/hr Q6 IVPB Last administered on 08/12/16 06:05; Admin Dose 55 MLS/HR; Start 08/04/16 at 13: 00 Calcium Acetate 667 mg 667 mg Q6 NGT Last administered on 08/12/16 06:05; Admin Dose 667 MG; Start 08/05/16 at 08:30 Midazolam HCl 50 ml @ 0 mls/hr TITRATE IV Last administered on 08/05/16 22:38; Admin Dose 3 MLS/HR; Start 08/05/16 at 13:00 Fentanyl (Sublimaze) 100 ml @ 2.5 mls/hr TITRATE IV Last administered on 22:39; Admin Dose 10 MLS/HR; Start 08/05/16 at 16:00 Hydralazine HCl 10 mg 10 mg Q4H PRN IV ELEVATED SYSTOLIC BP Last administered on 08/09/16 18:20; Admin Dose 10 MG; Start 08/06/16 at 01:30 Vancomycin HCl 250 ml @ 125 mls/hr Q96H IVPB Last administered on 08/10/16 14: 59; Admin Dose 125 MLS/HR; Start 08/06/16 at 15:00 Levetiracetam/ Sodium Chloride (Keppra Iv/NS) 107.5 ml @ 420 mls/hr DAILY IVPB Last administered on 08/11/16 08:31; Admin Dose 420 MLS/HR; Start 08/08/16 at 09:00 Sodium Bicarbonate (Sodium Bicarbonate Tab) 650 mg Q8 PO Last administered on 06:05; Admin Dose 650 MG; Start 08/08/16 at 14:00 Insulin Aspart NOVOLOG *MODERATE* ALGORI... Q4 SC Last administered on 01:39; Admin Dose 4 UNIT; Start 08/11/16 at 13:00 Diltiazem HCl 125 ml @ 5 mls/hr TITRATE IV Last administered on 08/11/16 13:28 ; Admin Dose 5 MLS/HR; Start 08/11/16 at 13:00 Amiodarone HCl/ Dextrose (Cordarone Iv/ D5W) 500 ml @ 0 mls/hr Q0M IV Last administered on 08/11/16 17:08; Admin Dose 1 MLS/HR; Start 08/11/16 at 17:00; Stop 08/12/16 at 16:59 NINFA PACK MD Aug 12, 2016 08:33
[2016-08-12] MEDS: BUDESONIDE (NEB) 0.5MG/2ML AMP HHN SCH ×2 (08:39→19:11)
[2016-08-12] MEDS ORDERED: LABETALOL HCL 20MG INJ ONE (08:44)
--- NOTE | 2016-08-12 08:47 | CONS ---
Date/Time of Note Date/Time of Note DATE: 08/12/16 TIME: 08:38 Assessment/Plan Assessment/Plan Chief Complaint/Hosp Course Paroxysmal afib with RVR: converted to afib with RVR (rates up to 200) on 08/11 uncontrolled with meds and requiring cardioversion at 150 J for unstable hemodynamics. Now on heparin and amiodarone drips. Remains in sinus. Should be on 1 month of anticoagulation post cardioversion. terminal superintendent anticoagulation may not be necessary as CHADSVASC is 1 Cardiac arrest: PEA by history and likely respiratory/hypoxic mediated. Cardiac cath without significant CAD, EF preserved. Anoxic brain injury: EEG suggestive of brain but breathing over vent and passed apnea trial. Now off sedation for several days. Opens eyes at times but no purposeful movements. Acute on chronic diastolic heart failure: EF preserved. Receiving HD Acute respiratory failure: in OR for trach today ESRD on HD Seizures HTN -continue amiodarone at 0.5mg/min today, change to PO tomorrow -continue heparin drip for now, once all procedures are complete, should be on coumadin for 1 month post cardioversion -restart metoprolol 25 mg BID now that pt off levophed and hypertensive again -HD per nephrology -neurology f/u Problems: Consultation Date/Type/Reason Admit Date/Time Jul 27, 2016 at 23:29 Initial Consult Date 07/28/16 Type of Consultation: Cardiology 24 HR Interval Summary Free Text/Dictation Please see my addended note from yesterday for details of afib with RVR requiring cardioversion. No further afib o/n. Pt in OR today for tracheostomy. Exam/Review of Systems Vital Signs Vitals Vital Signs Date Time Temp Pulse Resp B/P Pulse Ox O2 Delivery O2 Flow Rate FiO2 08/12/16 07:35 96 16 98 30 08/12/16 06:30 156/74 Mechanical Ventilator 08/12/16 04:00 99.1 Intake and Output 08/11/16 08/11/16 08/12/16 15:00 23:00 07:00 Intake Total 699.5 ml 553.239 ml 246.39 ml Output Total 30 ml 0 ml 0 ml Balance 669.5 ml 553.239 ml 246.39 ml Exam not examined as in OR Results Result Diagram: 08/12/16 0415 08/12/16 0415 Results 24 hrs Laboratory Tests Test 08/11/16 08:52 08/11/16 12:41 08/11/16 16:00 08/11/16 16:05 Bedside Glucose 221 H 207 Activated Partial Thromboplast Time 26.0 INR International Normalized Ratio 1.14 Prothrombin Time 14.6 H Prothrombin Time Ratio 1.1 Basophils # 0.1 Basophils % 0.6 Eosinophils # 0.3 Eosinophils % 1.7 Hematocrit 33.9 L Hemoglobin 11.2 L Lymphocytes # 1.5 Lymphocytes % 8.3 L Mean Corpuscular Hemoglobin 31.4 Mean Corpuscular Hemoglobin Concent 33.0 Mean Corpuscular Volume 95.0 Mean Platelet Volume 10.1 Monocytes # 1.2 H Monocytes % 6.8 Neutrophils # 14.6 H Neutrophils % 79.9 H Nucleated Red Blood Cells # 0.0 Nucleated Red Blood Cells % 0.0 Platelet Count 414 Red Blood Count 3.57 L Red Cell Distribution Width 14.6 H White Blood Count 18.2 H Test 08/11/16 17:26 08/11/16 20:43 08/11/16 21:50 08/12/16 01:30 Bedside Glucose 194 193 211 Activated Partial Thromboplast Time 33.5 Test 08/12/16 04:15 08/12/16 04:16 Activated Partial Thromboplast Time 72.0 *H Alanine Aminotransferase (ALT/SGPT) 44 Albumin 3.7 Albumin/Globulin Ratio 0.97 Alkaline Phosphatase 122 H Anion Gap 34 H Aspartate Amino Transf (AST/SGOT) 40 Basophils # 0.1 Basophils % 0.4 Blood Urea Nitrogen 125 H Calcium Level 8.0 L Carbon Dioxide Level 19 L Chloride Level 97 Creatinine 10.63 #H Direct Bilirubin 0.00 Eosinophils # 0.4 Eosinophils % 2.4 Globulin 3.80 H Glucose Level 178 Hematocrit 32.7 L Hemoglobin 10.5 L Indirect Bilirubin 0.0 Lymphocytes # 2.1 Lymphocytes % 12.2 L Magnesium Level 3.0 H Mean Corpuscular Hemoglobin 30.7 Mean Corpuscular Hemoglobin Concent 32.1 Mean Corpuscular Volume 95.6 Mean Platelet Volume 10.6 H Monocytes # 1.0 H Monocytes % 6.1 Neutrophils # 12.9 H Neutrophils % 76.2 Nucleated Red Blood Cells # 0.0 Nucleated Red Blood Cells % 0.0 Phosphorus Level 11.7 #H Platelet Count 409 Potassium Level 4.8 Red Blood Count 3.42 L Red Cell Distribution Width 14.6 H Sodium Level 145 H Total Bilirubin 0.0 L Total Protein 7.5 White Blood Count 17.0 H Bedside Glucose 127 Medications Medications Current Medications Norepinephrine/ Dextrose (Levophed/D5W) 500 ml @ 1.87 mls/hr TITRATE IV Last administered on 07/28/16 21:18; Admin Dose 11.25 MLS/HR; Start 07/28/16 at 04: 00 Labetalol HCl (Labetalol) 10 mg Q6H PRN IV sbp > 160 Last administered on 18:33; Admin Dose 10 MG; Start 07/28/16 at 00:30 Acetaminophen (Tylenol Supp) 650 mg Q6H PRN [place] PAIN AND OR ELEVATED TEMP Last administered on 07/31/16 17:30; Admin Dose 650 MG; Start 07/28/16 at 08:30 Miscellaneous Information 1 ea NOTE XX ; Start 07/28/16 at 09:00 Glucose (Glutose) 15 gm Q15M PRN PO DECREASED GLUCOSE; Start 07/28/16 at 09:00 Glucose (Glutose) 22.5 gm Q15M PRN PO DECREASED GLUCOSE; Start 07/28/16 at 09: 00 Dextrose (D50w Syringe) 25 ml Q15M PRN IV DECREASED GLUCOSE; Start 07/28/16 at 09:00 Dextrose (D50w Syringe) 50 ml Q15M PRN IV DECREASED GLUCOSE; Start 07/28/16 at 09:00 Glucagon (Glucagen) 1 mg Q15M PRN IM DECREASED GLUCOSE; Start 07/28/16 at 09:00 Glucose (Glutose) 15 gm Q15M PRN BUCCAL DECREASED GLUCOSE; Start 07/28/16 at 09 :00 IV Flush (NS 10 ml) 10 ml PRN PRN IV IV PROTOCOL; Start 07/29/16 at 17:00 Morphine Sulfate (morphine) 2 mg Q4 PRN IV PAIN Last administered on 08/02/16 00:07; Admin Dose 2 MG; Start 07/31/16 at 12:00 Pantoprazole (Protonix Iv) 40 mg DAILY@06 IV Last administered on 08/12/16 06: 04; Admin Dose 40 MG; Start 08/02/16 at 06:00 Lorazepam 1 mg 1 mg Q1H PRN IV SEIZURES Last administered on 08/11/16 12:25; Admin Dose 1 MG; Start 08/02/16 at 02:00 Piperacillin Sod/ Tazobactam Sod (Zosyn 2.25gm/ 50ml (Pmx)) 50 ml @ 100 mls/hr Q8 IVPB Last administered on 08/12/16 06:05; Admin Dose 100 MLS/HR; Start at 22:00 Acetaminophen (Tylenol Liquid) 650 mg Q4H PRN NGT PAIN AND OR ELEVATED TEMP Last administered on 08/11/16 08:32; Admin Dose 650 MG; Start 08/03/16 at 00:00 Insulin Glargine 20 unit 20 unit DAILY@08 SC Last administered on 08/11/16 07: 47; Admin Dose 20 UNIT; Start 08/03/16 at 12:00 Valproate Sodium/ Sodium Chloride (Depacon/NS) 57.5 ml @ 55 mls/hr Q6 IVPB Last administered on 08/12/16 06:05; Admin Dose 55 MLS/HR; Start 08/04/16 at 13: 00 Calcium Acetate 667 mg 667 mg Q6 NGT Last administered on 08/12/16 06:05; Admin Dose 667 MG; Start 08/05/16 at 08:30 Midazolam HCl 50 ml @ 0 mls/hr TITRATE IV Last administered on 08/05/16 22:38; Admin Dose 3 MLS/HR; Start 08/05/16 at 13:00 Fentanyl (Sublimaze) 100 ml @ 2.5 mls/hr TITRATE IV Last administered on 22:39; Admin Dose 10 MLS/HR; Start 08/05/16 at 16:00 Hydralazine HCl 10 mg 10 mg Q4H PRN IV ELEVATED SYSTOLIC BP Last administered on 08/09/16 18:20; Admin Dose 10 MG; Start 08/06/16 at 01:30 Vancomycin HCl 250 ml @ 125 mls/hr Q96H IVPB Last administered on 08/10/16 14: 59; Admin Dose 125 MLS/HR; Start 08/06/16 at 15:00 Levetiracetam/ Sodium Chloride (Keppra Iv/NS) 107.5 ml @ 420 mls/hr DAILY IVPB Last administered on 08/11/16 08:31; Admin Dose 420 MLS/HR; Start 08/08/16 at 09:00 Sodium Bicarbonate (Sodium Bicarbonate Tab) 650 mg Q8 PO Last administered on 06:05; Admin Dose 650 MG; Start 08/08/16 at 14:00 Insulin Aspart NOVOLOG *MODERATE* ALGORI... Q4 SC Last administered on 01:39; Admin Dose 4 UNIT; Start 08/11/16 at 13:00 Diltiazem HCl 125 ml @ 5 mls/hr TITRATE IV Last administered on 08/11/16 13:28 ; Admin Dose 5 MLS/HR; Start 08/11/16 at 13:00 Amiodarone HCl/ Dextrose (Cordarone Iv/ D5W) 500 ml @ 0 mls/hr Q0M IV Last administered on 08/11/16 17:08; Admin Dose 1 MLS/HR; Start 08/11/16 at 17:00; Stop 08/12/16 at 16:59 JACKSON CUNNINGHAM Aug 12, 2016 08:47
[2016-08-12] MEDS: ARFORMOTEROL TARTRATE 15MCG/2 ML AMP NEB SCH ×2 (09:00→21:49)
--- NOTE | 2016-08-12 09:17 | RADRPT ---
PROCEDURE: XR Chest. CLINICAL INDICATION: Shortness of breath TECHNIQUE: A single AP view of the chest was obtained. COMPARISON: Chest x-ray dated 08/10/2016 FINDINGS: The endotracheal tube tip is approximately 2.2 cm above the chino. The tip of the enteric tube ex tends below the left diaphragm. There is a right upper extremity PICC line with tip in the mid SVC. Lung volumes are low with compressive changes, vascular crowding and basilar atelectasis. No focal a irspace opacity, pleural effusion or pneumothorax is seen. The cardiomediastinal silhouette is with in normal limits for size. The osseous structures demonstrate healed right posterior rib fractures. IMPRESSION: 1. Low lung volumes. No significant interval change. 2. Tubes and lines, as described above. RPTAT: HH .Mona Paredes MD, MD Date Time Electronically viewed and signed by .Mona Paredes MD, on 08/12/2016 09:16 .G/
--- NOTE | 2016-08-12 09:18 | CONS ---
Date/Time of Note Date/Time of Note DATE: 08/12/16 TIME: 09:01 Assessment/Plan Assessment/Plan Chief Complaint/Hosp Course #1 end-stage renal disease . He had a new R femoral vascath placed this week. He was dialyzed yesterday using his L upper arm fistula .His BUN is high today after dialysis was postponed yesterday because he was in uncontrolled A fib , I will order hemodialysis for today and for tomorrow . #2 the patient is status post a cardiac arrest at home #3 altered level of consciousness, probable anoxic encephalopathy. EEG done last week was abnormal consistent with brain . #4 insulin-dependent diabetes mellitus #5 seizures #6 ventilator dependent respiratory failure , h/o COPD and pneumonia on CXR . #7 hyperphosphatemia , calcium acetate started today . #8 diarrhea , r/o C Difficle Problems: Consultation Date/Type/Reason Admit Date/Time Jul 27, 2016 at 23:29 Initial Consult Date 07/28/16 Type of Consultation: nephrology 24 HR Interval Summary Free Text/Dictation he is in the ICU , unresponsive . He just returned from surgery after having a tracheostomy placed . Subjective hx not possible: pt non-verbal Exam/Review of Systems Vital Signs Vitals Vital Signs Date Time Temp Pulse Resp B/P Pulse Ox O2 Delivery O2 Flow Rate FiO2 08/12/16 08:00 97 16 170/80 100 Mechanical Ventilator 08/12/16 07:35 30 08/12/16 04:00 99.1 Intake and Output 08/11/16 08/11/16 08/12/16 15:00 23:00 07:00 Intake Total 699.5 ml 553.239 ml 246.39 ml Output Total 30 ml 0 ml 0 ml Balance 669.5 ml 553.239 ml 246.39 ml Exam Constitutional: non-verbal Head: normocephalic Respiratory: clear to auscultation, normal air movement Cardiovascular: regular rate and rhythm Gastrointestinal: soft Musculoskeletal: nl extremities to inspection Results Result Diagram: 08/12/16 0415 08/12/16 0415 Results 24 hrs Laboratory Tests Test 08/11/16 12:41 08/11/16 16:00 08/11/16 16:05 08/11/16 17:26 Bedside Glucose 207 194 Activated Partial Thromboplast Time 26.0 INR International Normalized Ratio 1.14 Prothrombin Time 14.6 H Prothrombin Time Ratio 1.1 Basophils # 0.1 Basophils % 0.6 Eosinophils # 0.3 Eosinophils % 1.7 Hematocrit 33.9 L Hemoglobin 11.2 L Lymphocytes # 1.5 Lymphocytes % 8.3 L Mean Corpuscular Hemoglobin 31.4 Mean Corpuscular Hemoglobin Concent 33.0 Mean Corpuscular Volume 95.0 Mean Platelet Volume 10.1 Monocytes # 1.2 H Monocytes % 6.8 Neutrophils # 14.6 H Neutrophils % 79.9 H Nucleated Red Blood Cells # 0.0 Nucleated Red Blood Cells % 0.0 Platelet Count 414 Red Blood Count 3.57 L Red Cell Distribution Width 14.6 H White Blood Count 18.2 H Test 08/11/16 20:43 08/11/16 21:50 08/12/16 01:30 08/12/16 04:15 Bedside Glucose 193 211 Activated Partial Thromboplast Time 33.5 72.0 *H Alanine Aminotransferase (ALT/SGPT) 44 Albumin 3.7 Albumin/Globulin Ratio 0.97 Alkaline Phosphatase 122 H Anion Gap 34 H Aspartate Amino Transf (AST/SGOT) 40 Basophils # 0.1 Basophils % 0.4 Blood Urea Nitrogen 125 H Calcium Level 8.0 L Carbon Dioxide Level 19 L Chloride Level 97 Creatinine 10.63 #H Direct Bilirubin 0.00 Eosinophils # 0.4 Eosinophils % 2.4 Globulin 3.80 H Glucose Level 178 Hematocrit 32.7 L Hemoglobin 10.5 L Indirect Bilirubin 0.0 Lymphocytes # 2.1 Lymphocytes % 12.2 L Magnesium Level 3.0 H Mean Corpuscular Hemoglobin 30.7 Mean Corpuscular Hemoglobin Concent 32.1 Mean Corpuscular Volume 95.6 Mean Platelet Volume 10.6 H Monocytes # 1.0 H Monocytes % 6.1 Neutrophils # 12.9 H Neutrophils % 76.2 Nucleated Red Blood Cells # 0.0 Nucleated Red Blood Cells % 0.0 Phosphorus Level 11.7 #H Platelet Count 409 Potassium Level 4.8 Red Blood Count 3.42 L Red Cell Distribution Width 14.6 H Sodium Level 145 H Total Bilirubin 0.0 L Total Protein 7.5 White Blood Count 17.0 H Test 08/12/16 04:16 Bedside Glucose 127 Medications Medications Current Medications Labetalol HCl (Labetalol) 10 mg Q6H PRN IV sbp > 160 Last administered on t 18:33; Admin Dose 10 MG; Start 07/28/16 at 00:30 Acetaminophen (Tylenol Supp) 650 mg Q6H PRN [place] PAIN AND OR ELEVATED TEMP Last administered on 07/31/16 17:30; Admin Dose 650 MG; Start 07/28/16 at 08:30 Miscellaneous Information 1 ea NOTE XX ; Start 07/28/16 at 09:00 Glucose (Glutose) 15 gm Q15M PRN PO DECREASED GLUCOSE; Start 07/28/16 at 09:00 Glucose (Glutose) 22.5 gm Q15M PRN PO DECREASED GLUCOSE; Start 07/28/16 at 09: 00 Dextrose (D50w Syringe) 25 ml Q15M PRN IV DECREASED GLUCOSE; Start 07/28/16 at 09:00 Dextrose (D50w Syringe) 50 ml Q15M PRN IV DECREASED GLUCOSE; Start 07/28/16 at 09:00 Glucagon (Glucagen) 1 mg Q15M PRN IM DECREASED GLUCOSE; Start 07/28/16 at 09:00 Glucose (Glutose) 15 gm Q15M PRN BUCCAL DECREASED GLUCOSE; Start 07/28/16 at 09 :00 IV Flush (NS 10 ml) 10 ml PRN PRN IV IV PROTOCOL; Start 07/29/16 at 17:00 Morphine Sulfate (morphine) 2 mg Q4 PRN IV PAIN Last administered on 08/02/16 00:07; Admin Dose 2 MG; Start 07/31/16 at 12:00 Pantoprazole (Protonix Iv) 40 mg DAILY@06 IV Last administered on 08/12/16 06: 04; Admin Dose 40 MG; Start 08/02/16 at 06:00 Lorazepam 1 mg 1 mg Q1H PRN IV SEIZURES Last administered on 08/11/16 12:25; Admin Dose 1 MG; Start 08/02/16 at 02:00 Piperacillin Sod/ Tazobactam Sod (Zosyn 2.25gm/ 50ml (Pmx)) 50 ml @ 100 mls/hr Q8 IVPB Last administered on 08/12/16 06:05; Admin Dose 100 MLS/HR; Start at 22:00 Acetaminophen (Tylenol Liquid) 650 mg Q4H PRN NGT PAIN AND OR ELEVATED TEMP Last administered on 08/11/16 08:32; Admin Dose 650 MG; Start 08/03/16 at 00:00 Insulin Glargine 20 unit 20 unit DAILY@08 SC Last administered on 08/11/16 07: 47; Admin Dose 20 UNIT; Start 08/03/16 at 12:00 Valproate Sodium/ Sodium Chloride (Depacon/NS) 57.5 ml @ 55 mls/hr Q6 IVPB Last administered on 08/12/16 06:05; Admin Dose 55 MLS/HR; Start 08/04/16 at 13: 00 Calcium Acetate 667 mg 667 mg Q6 NGT Last administered on 08/12/16 06:05; Admin Dose 667 MG; Start 08/05/16 at 08:30 Midazolam HCl 50 ml @ 0 mls/hr TITRATE IV Last administered on 08/05/16 22:38; Admin Dose 3 MLS/HR; Start 08/05/16 at 13:00 Fentanyl (Sublimaze) 100 ml @ 2.5 mls/hr TITRATE IV Last administered on 22:39; Admin Dose 10 MLS/HR; Start 08/05/16 at 16:00 Hydralazine HCl 10 mg 10 mg Q4H PRN IV ELEVATED SYSTOLIC BP Last administered on 08/09/16 18:20; Admin Dose 10 MG; Start 08/06/16 at 01:30 Vancomycin HCl 250 ml @ 125 mls/hr Q96H IVPB Last administered on 08/10/16 14: 59; Admin Dose 125 MLS/HR; Start 08/06/16 at 15:00 Levetiracetam/ Sodium Chloride (Keppra Iv/NS) 107.5 ml @ 420 mls/hr DAILY IVPB Last administered on 08/11/16 08:31; Admin Dose 420 MLS/HR; Start 08/08/16 at 09:00 Sodium Bicarbonate (Sodium Bicarbonate Tab) 650 mg Q8 PO Last administered on 06:05; Admin Dose 650 MG; Start 08/08/16 at 14:00 Insulin Aspart NOVOLOG *MODERATE* ALGORI... Q4 SC Last administered on 01:39; Admin Dose 4 UNIT; Start 08/11/16 at 13:00 Amiodarone HCl/ Dextrose (Cordarone Iv/ D5W) 500 ml @ 16.66 mls/ hr Q24H IV ; Start 08/12/16 at 08:38 Metoprolol Tartrate (Lopressor) 25 mg BID NGT ; Start 08/12/16 at 09:00 ROSCOE LANGE MD Aug 12, 2016 09:11
[2016-08-12] MEDS: METOPROLOL 25 MG TAB NGT SCH ×3 (09:19→22:53)
[2016-08-12] MEDS: LEVETIRACETAM IV 750 MG in SOD CHLORIDE 0.9% 100 ML IVPB SCH (09:27)
[2016-08-12] MEDS: INSULIN GLARGINE [LANtus] 3 ML PEN SC SCH (09:30)
--- NOTE | 2016-08-12 10:14 | CONS ---
Date/Time of Note Date/Time of Note DATE: 08/12/16 TIME: 10:12 Consult Date/Type/Reason Admit Date/Time Jul 27, 2016 at 23:29 Initial Consult Date 07/28/16 Type of Consultation: Pulm Subjective Off sedation. somnolent. S/p trach Objective Vital Signs Date Time Temp Pulse Resp B/P Pulse Ox O2 Delivery O2 Flow Rate FiO2 08/12/16 09:00 98.2 08/12/16 08:00 97 16 170/80 100 Mechanical Ventilator 08/12/16 07:35 30 Intake and Output 08/11/16 08/11/16 08/12/16 15:00 23:00 07:00 Intake Total 699.5 ml 553.239 ml 246.39 ml Output Total 30 ml 0 ml 0 ml Balance 669.5 ml 553.239 ml 246.39 ml Results/Medications Result Diagram: 08/12/16 0415 08/12/16 0415 Results 24 hrs Laboratory Tests Test 08/11/16 12:41 08/11/16 16:00 08/11/16 16:05 08/11/16 17:26 Bedside Glucose 207 194 Activated Partial Thromboplast Time 26.0 INR International Normalized Ratio 1.14 Prothrombin Time 14.6 H Prothrombin Time Ratio 1.1 Basophils # 0.1 Basophils % 0.6 Eosinophils # 0.3 Eosinophils % 1.7 Hematocrit 33.9 L Hemoglobin 11.2 L Lymphocytes # 1.5 Lymphocytes % 8.3 L Mean Corpuscular Hemoglobin 31.4 Mean Corpuscular Hemoglobin Concent 33.0 Mean Corpuscular Volume 95.0 Mean Platelet Volume 10.1 Monocytes # 1.2 H Monocytes % 6.8 Neutrophils # 14.6 H Neutrophils % 79.9 H Nucleated Red Blood Cells # 0.0 Nucleated Red Blood Cells % 0.0 Platelet Count 414 Red Blood Count 3.57 L Red Cell Distribution Width 14.6 H White Blood Count 18.2 H Test 08/11/16 20:43 08/11/16 21:50 08/12/16 01:30 08/12/16 04:15 Bedside Glucose 193 211 Activated Partial Thromboplast Time 33.5 72.0 *H Alanine Aminotransferase (ALT/SGPT) 44 Albumin 3.7 Albumin/Globulin Ratio 0.97 Alkaline Phosphatase 122 H Anion Gap 34 H Aspartate Amino Transf (AST/SGOT) 40 Basophils # 0.1 Basophils % 0.4 Blood Urea Nitrogen 125 H Calcium Level 8.0 L Carbon Dioxide Level 19 L Chloride Level 97 Creatinine 10.63 #H Direct Bilirubin 0.00 Eosinophils # 0.4 Eosinophils % 2.4 Globulin 3.80 H Glucose Level 178 Hematocrit 32.7 L Hemoglobin 10.5 L Indirect Bilirubin 0.0 Lymphocytes # 2.1 Lymphocytes % 12.2 L Magnesium Level 3.0 H Mean Corpuscular Hemoglobin 30.7 Mean Corpuscular Hemoglobin Concent 32.1 Mean Corpuscular Volume 95.6 Mean Platelet Volume 10.6 H Monocytes # 1.0 H Monocytes % 6.1 Neutrophils # 12.9 H Neutrophils % 76.2 Nucleated Red Blood Cells # 0.0 Nucleated Red Blood Cells % 0.0 Phosphorus Level 11.7 #H Platelet Count 409 Potassium Level 4.8 Red Blood Count 3.42 L Red Cell Distribution Width 14.6 H Sodium Level 145 H Total Bilirubin 0.0 L Total Protein 7.5 White Blood Count 17.0 H Test 08/12/16 04:16 08/12/16 09:12 Bedside Glucose 127 162 Medications Current Medications Labetalol HCl (Labetalol) 10 mg Q6H PRN IV sbp > 160 Last administered on 18:33; Admin Dose 10 MG; Start 07/28/16 at 00:30 Acetaminophen (Tylenol Supp) 650 mg Q6H PRN [place] PAIN AND OR ELEVATED TEMP Last administered on 07/31/16 17:30; Admin Dose 650 MG; Start 07/28/16 at 08:30 Miscellaneous Information 1 ea NOTE XX ; Start 07/28/16 at 09:00 Glucose (Glutose) 15 gm Q15M PRN PO DECREASED GLUCOSE; Start 07/28/16 at 09:00 Glucose (Glutose) 22.5 gm Q15M PRN PO DECREASED GLUCOSE; Start 07/28/16 at 09: 00 Dextrose (D50w Syringe) 25 ml Q15M PRN IV DECREASED GLUCOSE; Start 07/28/16 at 09:00 Dextrose (D50w Syringe) 50 ml Q15M PRN IV DECREASED GLUCOSE; Start 07/28/16 at 09:00 Glucagon (Glucagen) 1 mg Q15M PRN IM DECREASED GLUCOSE; Start 07/28/16 at 09:00 Glucose (Glutose) 15 gm Q15M PRN BUCCAL DECREASED GLUCOSE; Start 07/28/16 at 09 :00 IV Flush (NS 10 ml) 10 ml PRN PRN IV IV PROTOCOL; Start 07/29/16 at 17:00 Morphine Sulfate (morphine) 2 mg Q4 PRN IV PAIN Last administered on 08/02/16 00:07; Admin Dose 2 MG; Start 07/31/16 at 12:00 Pantoprazole (Protonix Iv) 40 mg DAILY@06 IV Last administered on 08/12/16 06: 04; Admin Dose 40 MG; Start 08/02/16 at 06:00 Lorazepam 1 mg 1 mg Q1H PRN IV SEIZURES Last administered on 08/11/16 12:25; Admin Dose 1 MG; Start 08/02/16 at 02:00 Piperacillin Sod/ Tazobactam Sod (Zosyn 2.25gm/ 50ml (Pmx)) 50 ml @ 100 mls/hr Q8 IVPB Last administered on 08/12/16 06:05; Admin Dose 100 MLS/HR; Start at 22:00 Acetaminophen (Tylenol Liquid) 650 mg Q4H PRN NGT PAIN AND OR ELEVATED TEMP Last administered on 08/11/16 08:32; Admin Dose 650 MG; Start 08/03/16 at 00:00 Insulin Glargine 20 unit 20 unit DAILY@08 SC Last administered on 08/12/16 09: 30; Admin Dose 20 UNIT; Start 08/03/16 at 12:00 Valproate Sodium/ Sodium Chloride (Depacon/NS) 57.5 ml @ 55 mls/hr Q6 IVPB Last administered on 08/12/16 06:05; Admin Dose 55 MLS/HR; Start 08/04/16 at 13: 00 Calcium Acetate 667 mg 667 mg Q6 NGT Last administered on 08/12/16 06:05; Admin Dose 667 MG; Start 08/05/16 at 08:30 Midazolam HCl 50 ml @ 0 mls/hr TITRATE IV Last administered on 08/05/16 22:38; Admin Dose 3 MLS/HR; Start 08/05/16 at 13:00 Fentanyl (Sublimaze) 100 ml @ 2.5 mls/hr TITRATE IV Last administered on 22:39; Admin Dose 10 MLS/HR; Start 08/05/16 at 16:00 Hydralazine HCl 10 mg 10 mg Q4H PRN IV ELEVATED SYSTOLIC BP Last administered on 08/09/16 18:20; Admin Dose 10 MG; Start 08/06/16 at 01:30 Vancomycin HCl 250 ml @ 125 mls/hr Q96H IVPB Last administered on 08/10/16 14: 59; Admin Dose 125 MLS/HR; Start 08/06/16 at 15:00 Levetiracetam/ Sodium Chloride (Keppra Iv/NS) 107.5 ml @ 420 mls/hr DAILY IVPB Last administered on 08/12/16 09:27; Admin Dose 420 MLS/HR; Start 08/08/16 at 09:00 Sodium Bicarbonate (Sodium Bicarbonate Tab) 650 mg Q8 PO Last administered on 06:05; Admin Dose 650 MG; Start 08/08/16 at 14:00 Insulin Aspart NOVOLOG *MODERATE* ALGORI... Q4 SC Last administered on 09:31; Admin Dose 2 UNIT; Start 08/11/16 at 13:00 Amiodarone HCl/ Dextrose (Cordarone Iv/ D5W) 500 ml @ 16.66 mls/ hr Q24H IV ; Start 08/12/16 at 08:38 Metoprolol Tartrate (Lopressor) 25 mg BID NGT Last administered on 08/12/16 09 :19; Admin Dose 25 MG; Start 08/12/16 at 09:00 Assessment/Plan Chief Complaint/Hosp Course IMPRESSION: 1. s/p Cardiopulmonary arrest. 2. 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 3. End-stage renal failure. Hyperkalemia with metabolic acidosis 4. No evidence of occlusive lesions on cardiac catheterization. 5. HTN heart Disease 6. Asthma RECS 1. Vent support, patient not amenable secondary to significant evidence anoxic brain injury 2. Daily assessment of mental status 3. Spontaneous respiratory effort not consistently brain 4. Neurology recommendations 5. Continue DVT and GI prophylaxis 6. Continue hemodialysis with correction of electrolytes. Pending G tube. Poor neurological prognosis. Problems: JAVED PIERCE MD, [facility] Aug 12, 2016 10:14
[2016-08-12] MEDS ORDERED: CEFAZOLIN 1 GM/50 ML (PMX) 50 ML IVPB ONE (11:00)
[2016-08-12] MEDS: AMIODARONE 900 MG in DEXTROSE 5% 482 ML IV SCH (12:37)
--- NOTE | 2016-08-12 14:55 | OPR ---
DATE OF OPERATION: PREOPERATIVE DIAGNOSIS: Respiratory failure. POSTOPERATIVE DIAGNOSIS: Respiratory failure. OPERATION PERFORMED: Tracheostomy. SURGEON: Armen Hinson MD ANESTHESIA: General. CONSENT: Risks, benefits, complications, alternative therapy explained to the patient and the famil y, consent obtained. OPERATIVE TECHNIQUE: The patient was placed in supine position, prepped and draped in usual sterile fashion. Lidocaine 1% was used throughout the operation for local anesthesia. I made a 1 cm incis ion superior to the sternal notch. Incision was taken down to subcutaneous tissue, which was opened using electrocautery. Access was gained to the trachea. Guidewire was advanced through with out any difficulty. Subcutaneous tissues dilated. Endotracheal tube removed, 8 cuffed tracheostomy tube advanced into the trachea, secured to the skin using 2-0 nylon sutures and a trach tie. The p atient tolerated the procedure well. Dictated By: ARMEN THOMSON/BATSHEVA Conf#: [id number] DID#: [id number]
--- NOTE | 2016-08-12 17:18 | RADRPT ---
Vent Rate: 100 bpm RR Interval: 0 msec CO Interval: 124 msec QRS Duration: 82 msec QT Interval: 336 msec QTC Interval: 433 msec P-R-T [place]: 51 - -43 - 70 degrees Normal sinus rhythm Left axis deviation Abnormal ECG Electronically Signed By: Jamal Walter [id number]
[2016-08-12] MEDS ORDERED: ARTIFICIAL TEARS 15 ML OPH BOTH EYES ONE (22:30)
[2016-08-12] MEDS: morphine 2 MG INJ IV PRN (23:38)
[2016-08-13] VITALS (62 sets, daily range): BP systolic 89–180; BP diastolic 47–89; PULSE 89–113; RESP 16–31
[2016-08-13] MEDS: INSULIN ASPART [NOVOLOG] 3 ML PEN SC SCH ×6 (01:18→20:09)
[2016-08-13] MEDS: IPRATROPIUM (HFA) 12.9 GM INHALER INH SCH ×6 (01:23→20:24)
[2016-08-13] MEDS: ALBUTEROL HFA 8 GM INHALER INH SCH ×6 (01:23→20:24)
[2016-08-13] MEDS: hydrALAzine 20 MG INJ IV PRN (04:26)
[2016-08-13 05:27] LABS: AADO2 Arterial 88.6 mmHg (7.0-24.0); Allen Test ACCEPTAB; Arterial Base Excess -1.2 mmol/L (-3.0-3); Arterial COHb 0 % (0.0-3.0); Arterial Fraction of Oxyhgb 95.3 % (93.0-99.0); Arterial HCO3 22.9 mmol/L (22.0-26.0); Arterial MetHb 0.3 % (0.0-1.5); Arterial Total Hemglobin 12.8 g/dl (12.0-18.0); MODE VENT - AC
[2016-08-13] MEDS: CALCIUM ACETATE 667 MG CAP NGT SCH ×3 (05:29→18:47)
[2016-08-13] MEDS: VALPROATE INJ 750 MG in SOD CHLORIDE 0.9% 50 ML IVPB SCH ×3 (05:29→17:45)
[2016-08-13] MEDS: PIPER-TAZO 2.25 GM (PMX) 50 ML IVPB SCH ×3 (05:29→21:42)
[2016-08-13] MEDS: NA BICARBONATE 650 MG TAB PO SCH ×3 (05:30→21:42)
[2016-08-13] MEDS: PANTOPRAZOLE 40 MG INJ IV SCH (05:30)
[2016-08-13 06:07] LABS: ADD SCAN DIFF NO; BASOPHIL # 0.1 10^3/ul (0.0-0.1); BASOPHILS % 0.5 % (0.0-2.0); EOSINOPHILS # 0.2 10^3/ul (0.0-0.5); EOSINOPHILS % 0.9 % (0.0-7.0); LYMPHOCYTES # 1.8 10^3/ul (0.8-2.9); LYMPHOCYTES % 9.5 % (15.0-51.0); MEAN CORPUSCULAR HEMOGLOBIN 30.9 pg (29.0-33.0); MEAN CORPUSCULAR HGB CONC 32.4 g/dl (32.0-37.0); MEAN CORPUSCULAR VOLUME 95.5 fl (82.0-101.0); MEAN PLATELET VOLUME 10.5 fl (7.4-10.4); MONOCYTE # 1.3 10^3/ul (0.3-0.9); MONOCYTES % 6.8 % (0.0-11.0); NEUTROPHIL # 15.5 10^3/ul (1.6-7.5); NEUTROPHILS % 79.9 % (39.0-77.0); PLATELET COUNT 392 10^3/UL (140-415); RED BLOOD COUNT 3.56 10^6/ul (4.70-6.10); RED CELL DISTRIBUTION WIDTH 14.6 % (11.5-14.5); WHITE BLOOD COUNT 19.4 10^3/ul (4.8-10.8)
[2016-08-13 06:13] LABS: POTASSIUM 4.7 mmol/L (3.5-5.1)
[2016-08-13 06:16] LABS: CALCIUM 8.4 mg/dl (8.4-10.2)
[2016-08-13 06:19] LABS: INR 1.14; PROTIME 14.6 Sec (12.2-14.2); PT RATIO 1.1
[2016-08-13 06:20] LABS: PARTIAL THROMBOPLASTIN TIME 27.9 Sec (25.0-35.0)
[2016-08-13 06:25] LABS: CREATININE 8.82 mg/dl (0.61-1.24)
[2016-08-13] MEDS: ARFORMOTEROL TARTRATE 15MCG/2 ML AMP NEB SCH ×2 (08:11→21:19)
[2016-08-13] MEDS: BUDESONIDE (NEB) 0.5MG/2ML AMP HHN SCH ×2 (08:36→20:24)
[2016-08-13] MEDS: AMIODARONE 900 MG in DEXTROSE 5% 482 ML IV SCH (08:38)
[2016-08-13] MEDS: INSULIN GLARGINE [LANtus] 3 ML PEN SC SCH (08:41)
[2016-08-13] MEDS: METOPROLOL 25 MG TAB NGT SCH ×2 (08:43→21:00)
[2016-08-13] MEDS: ARTIFICIAL TEARS 15 ML OPH BOTH EYES SCH ×3 (08:43→21:00)
[2016-08-13] MEDS: LEVETIRACETAM IV 750 MG in SOD CHLORIDE 0.9% 100 ML IVPB SCH (09:21)
[2016-08-13 09:44] LABS: ALBUMIN 3.8 g/dl (3.3-4.9)
[2016-08-13 09:47] LABS: TOTAL PROTEIN 7.8 g/dl (6.1-8.1)
--- NOTE | 2016-08-13 10:02 | PN ---
Date/Time of Note Date/Time of Note DATE: 08/13/16 TIME: 09:59 Assessment/Plan VTE Prophylaxis VTE Prophylaxis Intervention: heparin Lines/Catheters IV C[facility] Type [facility] Lan cath Urinary Cath still in place: No Assessment/Plan Assessment/Plan 1. PEA s/p cardiac arrest , etiology PEA due to hypoxia -Neuro on the case - 2. ESRD on HD - on serial Hemodialysis due to high BUN- plan for HD as per Renal , catheter has been changed recently 3. SIRS with elevated white count and fever- R Lung opacity noted and may be Asp PNA on IV abx as per ID 4. VDRF - not able to wean off, s/p Tracheostomy now 5. Hypotension - cardiac shock vs septic shock - resolved 6. CHF - acute - diastolic vs systolic dysfunction - fluid to be removed via dialysis - monitor I/O's 7. Hx of hypertension - hold medications as patient is hypotensive 8. Type II DM-A1C at 7.3 -cont Lantus, NISS 9. GI ppx - protonix 10.. DVT ppx - hepari Subjective 24 Hr Interval Summary Free Text/Dictation s/p Tracheostomy , BP stable, plan for G tube next week as per GI Exam/Review of Systems Vital Signs Vitals Vital Signs Date Time Temp Pulse Resp B/P Pulse Ox O2 Delivery O2 Flow Rate FiO2 08/13/16 09:30 105 16 107/65 98 08/13/16 09:00 Mechanical Ventilator 08/13/16 08:00 30 08/13/16 08:00 99.0 Intake and Output 08/12/16 08/12/16 08/13/16 15:00 23:00 07:00 Intake Total 896.62 ml 304.10 ml 378.28 ml Output Total 3590 ml 15 ml Balance -2693.38 ml 289.10 ml 378.28 ml Exam Constitutional: s/p tracheostomy on vent Respiratory: bilateral crackles +, no wheezing Cardiovascular: regular rate and rhythm Musculoskeletal: nl extremities to inspection Neurological: unresponsive + lan Hd catheter Results Result Diagram: 08/13/16 0520 08/13/16 0520 Results 24 hrs Laboratory Tests Test 08/12/16 10:45 08/12/16 12:43 08/12/16 18:12 08/12/16 22:48 Activated Partial Thromboplast Time 31.3 Bedside Glucose 167 195 157 Test 08/13/16 01:16 08/13/16 04:27 08/13/16 05:00 08/13/16 05:20 Bedside Glucose 144 132 Arterial Blood HCO3 22.9 Arterial Blood Base Excess -1.2 Arterial Blood Oxygen Saturation 95.6 [place]iel Test ACCEPTAB Arterial Blood Gas Puncture Site Right Radial Arterial Blood Carboxyhemoglobin 0 Arterial Blood Date Drawn 08/13/2016 5:22:37 AM Arterial Blood Methemoglobin 0.3 Arterial Blood pCO2 (Temp correct) 36.2 Arterial Blood pH (Temp corrected) 7.419 Arterial Blood pO2 (Temp corrected) 82.8 Blood Gas A-a O2 Differential 88.6 H Blood Gas Actual Respiration Rate 16 Blood Gas Inspiratory Pressure 27.0 Blood Gas Low PEEP Setting 5.0 Blood Gas Modality VENT - AC Blood Gas Notified Time 08/13/2016 5:27:27 AM Blood Gas Notified Whom BR Blood Gas Respiration Rate 16.0 Blood Gas Specimen Source Blood arterial Blood Gas Temperature 37.0 Blood Gas Tidal Volume 650.0 FiO2 30.0 Oxyhemoglobin Percent 95.3 Total Hemoglobin 12.8 Activated Partial Thromboplast Time 27.9 Alanine Aminotransferase (ALT/SGPT) 46 Albumin 3.8 Alkaline Phosphatase 113 Anion Gap 28 H Aspartate Amino Transf (AST/SGOT) 45 Basophils # 0.1 Basophils % 0.5 Blood Urea Nitrogen 104 H Calcium Level 8.4 Carbon Dioxide Level 22 Chloride Level 101 Creatinine 8.82 H Direct Bilirubin 0.00 Eosinophils # 0.2 Eosinophils % 0.9 Glucose Level 155 Hematocrit 34.0 L Hemoglobin 11.0 L INR International Normalized Ratio 1.14 Indirect Bilirubin 0.0 Lymphocytes # 1.8 Lymphocytes % 9.5 L Mean Corpuscular Hemoglobin 30.9 Mean Corpuscular Hemoglobin Concent 32.4 Mean Corpuscular Volume 95.5 Mean Platelet Volume 10.5 H Monocytes # 1.3 H Monocytes % 6.8 Neutrophils # 15.5 H Neutrophils % 79.9 H Nucleated Red Blood Cells # 0.0 Nucleated Red Blood Cells % 0.0 Platelet Count 392 Potassium Level 4.7 Prothrombin Time 14.6 H Prothrombin Time Ratio 1.1 Red Blood Count 3.56 L Red Cell Distribution Width 14.6 H Sodium Level 146 H Total Bilirubin 0.0 L Total Protein 7.8 White Blood Count 19.4 H Test 08/13/16 08:35 Bedside Glucose 158 Medications Medications Current Medications Labetalol HCl (Labetalol) 10 mg Q6H PRN IV sbp > 160 Last administered on 18:33; Admin Dose 10 MG; Start 07/28/16 at 00:30 Acetaminophen (Tylenol Supp) 650 mg Q6H PRN [place] PAIN AND OR ELEVATED TEMP Last administered on 07/31/16 17:30; Admin Dose 650 MG; Start 07/28/16 at 08:30 Miscellaneous Information 1 ea NOTE XX ; Start 07/28/16 at 09:00 Glucose (Glutose) 15 gm Q15M PRN PO DECREASED GLUCOSE; Start 07/28/16 at 09:00 Glucose (Glutose) 22.5 gm Q15M PRN PO DECREASED GLUCOSE; Start 07/28/16 at 09: 00 Dextrose (D50w Syringe) 25 ml Q15M PRN IV DECREASED GLUCOSE; Start 07/28/16 at 09:00 Dextrose (D50w Syringe) 50 ml Q15M PRN IV DECREASED GLUCOSE; Start 07/28/16 at 09:00 Glucagon (Glucagen) 1 mg Q15M PRN IM DECREASED GLUCOSE; Start 07/28/16 at 09:00 Glucose (Glutose) 15 gm Q15M PRN BUCCAL DECREASED GLUCOSE; Start 07/28/16 at 09 :00 IV Flush (NS 10 ml) 10 ml PRN PRN IV IV PROTOCOL; Start 07/29/16 at 17:00 Morphine Sulfate (morphine) 2 mg Q4 PRN IV PAIN Last administered on 08/12/16 23:38; Admin Dose 2 MG; Start 07/31/16 at 12:00 Pantoprazole (Protonix Iv) 40 mg DAILY@06 IV Last administered on 08/13/16 05: 30; Admin Dose 40 MG; Start 08/02/16 at 06:00 Lorazepam 1 mg 1 mg Q1H PRN IV SEIZURES Last administered on 08/11/16 12:25; Admin Dose 1 MG; Start 08/02/16 at 02:00 Piperacillin Sod/ Tazobactam Sod (Zosyn 2.25gm/ 50ml (Pmx)) 50 ml @ 100 mls/hr Q8 IVPB Last administered on 08/13/16 05:29; Admin Dose 100 MLS/HR; Start at 22:00 Acetaminophen (Tylenol Liquid) 650 mg Q4H PRN NGT PAIN AND OR ELEVATED TEMP Last administered on 08/11/16 08:32; Admin Dose 650 MG; Start 08/03/16 at 00:00 Insulin Glargine 20 unit 20 unit DAILY@08 SC Last administered on 08/13/16 08: 41; Admin Dose 20 UNIT; Start 08/03/16 at 12:00 Valproate Sodium/ Sodium Chloride (Depacon/NS) 57.5 ml @ 55 mls/hr Q6 IVPB Last administered on 08/13/16 05:29; Admin Dose 55 MLS/HR; Start 08/04/16 at 13: 00 Calcium Acetate 667 mg 667 mg Q6 NGT Last administered on 08/13/16 05:29; Admin Dose 667 MG; Start 08/05/16 at 08:30 Midazolam HCl 50 ml @ 0 mls/hr TITRATE IV Last administered on 08/05/16 22:38; Admin Dose 3 MLS/HR; Start 08/05/16 at 13:00 Fentanyl (Sublimaze) 100 ml @ 2.5 mls/hr TITRATE IV Last administered on 22:39; Admin Dose 10 MLS/HR; Start 08/05/16 at 16:00 Hydralazine HCl 10 mg 10 mg Q4H PRN IV ELEVATED SYSTOLIC BP Last administered on 08/13/16 04:26; Admin Dose 10 MG; Start 08/06/16 at 01:30 Vancomycin HCl 250 ml @ 125 mls/hr Q96H IVPB Last administered on 08/10/16 14: 59; Admin Dose 125 MLS/HR; Start 08/06/16 at 15:00 Levetiracetam/ Sodium Chloride (Keppra Iv/NS) 107.5 ml @ 420 mls/hr DAILY IVPB Last administered on 08/13/16 09:21; Admin Dose 420 MLS/HR; Start 08/08/16 at 09:00 Sodium Bicarbonate (Sodium Bicarbonate Tab) 650 mg Q8 PO Last administered on 05:30; Admin Dose 650 MG; Start 08/08/16 at 14:00 Insulin Aspart NOVOLOG *MODERATE* ALGORI... Q4 SC Last administered on 08:42; Admin Dose 2 UNIT; Start 08/11/16 at 13:00 Amiodarone HCl/ Dextrose (Cordarone Iv/ D5W) 500 ml @ 16.66 mls/ hr Q24H IV Last administered on 08/12/16 12:37; Admin Dose 16.66 MLS/HR; Start 08/12/16 at 08:38 Metoprolol Tartrate (Lopressor) 25 mg BID NGT Last administered on 08/13/16 08 :43; Admin Dose 25 MG; Start 08/12/16 at 09:00 Eye Lubricant (Artificial Tears Oph) 2 drop TID BOTH EYES Last administered on 08/13/16 08:43; Admin Dose 2 DROP; Start 08/13/16 at 09:00 NINFA PACK MD Aug 13, 2016 10:02
--- NOTE | 2016-08-13 11:52 | RADRPT ---
PROCEDURE: XR Chest. CLINICAL INDICATION: Shortness of breath TECHNIQUE: A single AP view of the chest was obtained. COMPARISON: Chest x-ray dated 08/12/2016 FINDINGS: There is interval removal of the endotracheal tube and enteric tube. There is placement of a trache ostomy tube with the tip in the upper thoracic trachea. There is a right upper extremity PICC line with tip in the mid SVC. Lung volumes are low with compressive changes, vascular crowding and basi lar atelectasis. No focal airspace opacity, pleural effusion or pneumothorax is seen. The cardiomed iastinal silhouette is within normal limits for size. The osseous structures demonstrate healed rig ht posterior rib fractures. IMPRESSION: 1. Interval removal of the endotracheal tube and enteric tube. Placement of a tracheostomy with th e tip in the upper thoracic trachea. 2. Hypoinflation with central vascular crowding and minimal bibasilar atelectasis. No new acute in filtrates. RPTAT: QQ .Swapnil Solis MD, MD Date Time Electronically viewed and signed by .Swapnil Solis MD, on 08/13/2016 11:52 .A/
--- NOTE | 2016-08-13 12:05 | CONS ---
Date/Time of Note Date/Time of Note DATE: 08/13/16 TIME: 12:02 Assessment/Plan Assessment/Plan Chief Complaint/Hosp Course Paroxysmal afib with RVR: converted to afib with RVR (rates up to 200) on 08/11 uncontrolled with meds and requiring cardioversion at 150 J for unstable hemodynamics. Remains in sinus. Should be on 1 month of anticoagulation post cardioversion. [facility] anticoagulation may not be necessary as CHADSVASC is 1 Cardiac arrest: PEA by history and likely respiratory/hypoxic mediated. Cardiac cath without significant CAD, EF preserved. Anoxic brain injury: EEG suggestive of brain but breathing over vent and passed apnea trial. Now off sedation for several days. Opens eyes at times but no purposeful movements. Acute on chronic diastolic heart failure: EF preserved. Receiving HD Acute respiratory failure: s/p trach ESRD on HD Seizures HTN -d/c IV amio -start amiodarone 400mg BID as continued PO load, eventually should be on 200mg daily -restart heparin drip if ok from GI perspective, if doing well will start coumadin -metoprolol 25 mg BID -HD per nephrology Problems: Consultation Date/Type/Reason Admit Date/Time Jul 27, 2016 at 23:29 Initial Consult Date 07/28/16 Type of Consultation: Cardiology 24 HR Interval Summary Free Text/Dictation s/p trach and PEG yesterday. Eyes open this am but does not track Exam/Review of Systems Vital Signs Vitals Vital Signs Date Time Temp Pulse Resp B/P Pulse Ox O2 Delivery O2 Flow Rate FiO2 08/13/16 09:30 105 16 107/65 98 08/13/16 09:00 Mechanical Ventilator 08/13/16 08:00 30 08/13/16 08:00 99.0 Intake and Output 08/12/16 08/12/16 08/13/16 15:00 23:00 07:00 Intake Total 896.62 ml 304.10 ml 378.28 ml Output Total 3590 ml 15 ml Balance -2693.38 ml 289.10 ml 378.28 ml Exam Constitutional: alert (eyes open but does not track ) Head: atraumatic, normocephalic ENMT: other (trach) Neck: No jvd Respiratory: diminished breath sounds Cardiovascular: nl pulses, regular rate and rhythm, No edema Gastrointestinal: soft Neurological: No nl mental status, No nl speech Results Result Diagram: 2/11/17 0520 08/13/16 0520 Results 24 hrs Laboratory Tests Test 08/12/16 12:43 08/12/16 18:12 08/12/16 22:48 08/13/16 01:16 Bedside Glucose 167 195 157 144 Test 08/13/16 04:27 08/13/16 05:00 08/13/16 05:20 08/13/16 08:35 Bedside Glucose 132 158 Arterial Blood HCO3 22.9 Arterial Blood Base Excess -1.2 Arterial Blood Oxygen Saturation 95.6 Osiel Test ACCEPTAB Arterial Blood Gas Puncture Site Right Radial Arterial Blood Carboxyhemoglobin 0 Arterial Blood Date Drawn 08/13/2016 5:22:37 AM Arterial Blood Methemoglobin 0.3 Arterial Blood pCO2 (Temp correct) 36.2 Arterial Blood pH (Temp corrected) 7.419 Arterial Blood pO2 (Temp corrected) 82.8 Blood Gas A-a O2 Differential 88.6 H Blood Gas Actual Respiration Rate 16 Blood Gas Inspiratory Pressure 27.0 Blood Gas Low PEEP Setting 5.0 Blood Gas Modality VENT - AC Blood Gas Notified Time 08/13/2016 5:27:27 AM Blood Gas Notified Whom BR Blood Gas Respiration Rate 16.0 Blood Gas Specimen Source Blood arterial Blood Gas Temperature 37.0 Blood Gas Tidal Volume 650.0 FiO2 30.0 Oxyhemoglobin Percent 95.3 Total Hemoglobin 12.8 Activated Partial Thromboplast Time 27.9 Alanine Aminotransferase (ALT/SGPT) 46 Albumin 3.8 Alkaline Phosphatase 113 Anion Gap 28 H Aspartate Amino Transf (AST/SGOT) 45 Basophils # 0.1 Basophils % 0.5 Blood Urea Nitrogen 104 H Calcium Level 8.4 Carbon Dioxide Level 22 Chloride Level 101 Creatinine 8.82 H Direct Bilirubin 0.00 Eosinophils # 0.2 Eosinophils % 0.9 Glucose Level 155 Hematocrit 34.0 L Hemoglobin 11.0 L INR International Normalized Ratio 1.14 Indirect Bilirubin 0.0 Lymphocytes # 1.8 Lymphocytes % 9.5 L Mean Corpuscular Hemoglobin 30.9 Mean Corpuscular Hemoglobin Concent 32.4 Mean Corpuscular Volume 95.5 Mean Platelet Volume 10.5 H Monocytes # 1.3 H Monocytes % 6.8 Neutrophils # 15.5 H Neutrophils % 79.9 H Nucleated Red Blood Cells # 0.0 Nucleated Red Blood Cells % 0.0 Platelet Count 392 Potassium Level 4.7 Prothrombin Time 14.6 H Prothrombin Time Ratio 1.1 Red Blood Count 3.56 L Red Cell Distribution Width 14.6 H Sodium Level 146 H Total Bilirubin 0.0 L Total Protein 7.8 White Blood Count 19.4 H Medications Medications Current Medications Labetalol HCl (Labetalol) 10 mg Q6H PRN IV sbp > 160 Last administered on 18:33; Admin Dose 10 MG; Start 07/28/16 at 00:30 Acetaminophen (Tylenol Supp) 650 mg Q6H PRN [place] PAIN AND OR ELEVATED TEMP Last administered on 07/31/16 17:30; Admin Dose 650 MG; Start 07/28/16 at 08:30 Miscellaneous Information 1 ea NOTE XX ; Start 07/28/16 at 09:00 Glucose (Glutose) 15 gm Q15M PRN PO DECREASED GLUCOSE; Start 07/28/16 at 09:00 Glucose (Glutose) 22.5 gm Q15M PRN PO DECREASED GLUCOSE; Start 07/28/16 at 09: 00 Dextrose (D50w Syringe) 25 ml Q15M PRN IV DECREASED GLUCOSE; Start 07/28/16 at 09:00 Dextrose (D50w Syringe) 50 ml Q15M PRN IV DECREASED GLUCOSE; Start 07/28/16 at 09:00 Glucagon (Glucagen) 1 mg Q15M PRN IM DECREASED GLUCOSE; Start 07/28/16 at 09:00 Glucose (Glutose) 15 gm Q15M PRN BUCCAL DECREASED GLUCOSE; Start 07/28/16 at 09 :00 IV Flush (NS 10 ml) 10 ml PRN PRN IV IV PROTOCOL; Start 07/29/16 at 17:00 Morphine Sulfate (morphine) 2 mg Q4 PRN IV PAIN Last administered on 08/12/16 23:38; Admin Dose 2 MG; Start 07/31/16 at 12:00 Pantoprazole (Protonix Iv) 40 mg DAILY@06 IV Last administered on 08/13/16 05: 30; Admin Dose 40 MG; Start 08/02/16 at 06:00 Lorazepam 1 mg 1 mg Q1H PRN IV SEIZURES Last administered on 08/11/16 12:25; Admin Dose 1 MG; Start 08/02/16 at 02:00 Piperacillin Sod/ Tazobactam Sod (Zosyn 2.25gm/ 50ml (Pmx)) 50 ml @ 100 mls/hr Q8 IVPB Last administered on 08/13/16 05:29; Admin Dose 100 MLS/HR; Start at 22:00 Acetaminophen (Tylenol Liquid) 650 mg Q4H PRN NGT PAIN AND OR ELEVATED TEMP Last administered on 08/11/16 08:32; Admin Dose 650 MG; Start 08/03/16 at 00:00 Insulin Glargine 20 unit 20 unit DAILY@08 SC Last administered on 08/13/16 08: 41; Admin Dose 20 UNIT; Start 08/03/16 at 12:00 Valproate Sodium/ Sodium Chloride (Depacon/NS) 57.5 ml @ 55 mls/hr Q6 IVPB Last administered on 08/13/16 05:29; Admin Dose 55 MLS/HR; Start 08/04/16 at 13: 00 Calcium Acetate 667 mg 667 mg Q6 NGT Last administered on 08/13/16 05:29; Admin Dose 667 MG; Start 08/05/16 at 08:30 Midazolam HCl 50 ml @ 0 mls/hr TITRATE IV Last administered on 08/05/16 22:38; Admin Dose 3 MLS/HR; Start 08/05/16 at 13:00 Fentanyl (Sublimaze) 100 ml @ 2.5 mls/hr TITRATE IV Last administered on 22:39; Admin Dose 10 MLS/HR; Start 08/05/16 at 16:00 Hydralazine HCl 10 mg 10 mg Q4H PRN IV ELEVATED SYSTOLIC BP Last administered on 08/13/16 04:26; Admin Dose 10 MG; Start 08/06/16 at 01:30 Vancomycin HCl 250 ml @ 125 mls/hr Q96H IVPB Last administered on 08/10/16 14: 59; Admin Dose 125 MLS/HR; Start 08/06/16 at 15:00 Levetiracetam/ Sodium Chloride (Keppra Iv/NS) 107.5 ml @ 420 mls/hr DAILY IVPB Last administered on 08/13/16 09:21; Admin Dose 420 MLS/HR; Start 08/08/16 at 09:00 Sodium Bicarbonate (Sodium Bicarbonate Tab) 650 mg Q8 PO Last administered on 05:30; Admin Dose 650 MG; Start 08/08/16 at 14:00 Insulin Aspart NOVOLOG *MODERATE* ALGORI... Q4 SC Last administered on 08:42; Admin Dose 2 UNIT; Start 08/11/16 at 13:00 Amiodarone HCl/ Dextrose (Cordarone Iv/ D5W) 500 ml @ 16.66 mls/ hr Q24H IV Last administered on 08/12/16 12:37; Admin Dose 16.66 MLS/HR; Start 08/12/16 at 08:38 Metoprolol Tartrate (Lopressor) 25 mg BID NGT Last administered on 08/13/16 08 :43; Admin Dose 25 MG; Start 08/12/16 at 09:00 Eye Lubricant (Artificial Tears Oph) 2 drop TID BOTH EYES Last administered on 08/13/16 08:43; Admin Dose 2 DROP; Start 08/13/16 at 09:00 Miscellaneous Information (*Rx Drug Level Order Reminder*) VANCOMYCIN TROUGH AT 1400 ONCE ONCE XX ; Start 08/14/16 at 14:00; Stop 08/14/16 at 14:01 JACKSON CUNNINGHAM Aug 13, 2016 12:05
--- NOTE | 2016-08-13 12:28 | GILP ---
DATE OF PROCEDURE: 08/12/2016 NAME OF PROCEDURE: Esophagogastroduodenoscopy with percutaneous endoscopic gastrostomy tube santiagomen juan. SURGEON: Jose Alberto French MD. HISTORY AND INDICATIONS: The patient requires enteral feeding support. He is post-tracheostomy tod ay for respiratory failure post-cardiac arrest. PREMEDICATION: Monitored anesthesia care by anesthesiologist. INSTRUMENT USED: Olympus panendoscope. TECHNIQUE: After informed consent, with the patient and/or family members understanding the procedur e, its indications, potential risks and complications, including but not limited to: allergic reacti on, bleeding, perforation, infection or leakage, and after all pertinent questions were answered to the patient and/or family members satisfaction, the patient and/or family member signed witnessed in formed consent. Following this, premedication was administered slowly IV push, under careful cardiovascular and resp iratory monitoring with pulse oximetry, blood pressure and ekg monitor tech. Once the sedative effect was achieved the patient was place in the supine position, the panendoscope was introduced and advanced under visual guidance. Careful examination of the upper gastrointestinal tract, on insertion as well as withdrawal of the i nstrument disclosed the following findings: ESOPHAGUS: The mucosa of the entire esophagus appears within normal limits. There is no evidence of esophagitis, varices, neoplasm or stricture. STOMACH: Upon entrance to the stomach air was insufflated, the gastric pineda distended normally. The mucosa of the fundus, body and antrum of the stomach was carefully examined both head-on and on ret roflexion, and shows no abnormalities. There is no evidence of gastritis, ulcers or neoplasm. PYLORUS: The pylorus appears patent and within normal limits, with no evidence of gastric outlet obs truction. DUODENUM: The duodenum shows some evidence of erythema and nodularity consistent with duodenitis. No ulcerations noted. The instrument was then brought back to the stomach and the anterior wall mid-body was identified by transillumination and "finger indentation", this area was then marked in the anterior wall of the a bdomen, it was cleansed with Betadine and infiltrated with Xylocaine 1%. Following this a trocar nee dle was introduced into the gastric lumen under visual control with the endoscope, once in the gastr ic lumen a guide wire was advanced and secured with a polypectomy snare, at this point the endoscope was withdrawn bringing the guide wire out through the patients mouth. Following this a gastrostomy tube was introduced over the guide wire, with the Sacks-Vinne technique without difficulty, a small incision was performed in the skin to allow easy passage of the G-tube, once the position of the gas trostomy tube was confirmed, the external stopper and connectors were installed, and a clean dressin g applied. Gastrostomy tube used was a Croatian 20 gastrostomy tube. The patient tolerated the procedure well and was transferred out of the endoscopy suite awake, and i n good condition to continue recovery under observation, feedings will started in the next 12-24h an d gastrostomy care will be instituted. IMPRESSION: 1. Uneventful percutaneous endoscopic gastrostomy tube placement with placement of Croatian 20 gastros usama tube. 2. Duodenitis. PLAN: Continue PPI therapy and start feedings tomorrow morning. Gastrostomy tube may be used for m edications today. Gastrostomy tube care per protocol and an abdominal binder at all times to preven t accidental dislodgement of gastrostomy tube. Dictated By: JOSE ALBERTO FRENCH MS/BATSHEVA Conf#: [id number] DID#: [id number] CC: JOSE ALBERTO FRENCH;*EndCC*
--- NOTE | 2016-08-13 12:29 | CONS ---
Date/Time of Note Date/Time of Note DATE: 08/13/16 TIME: 12:04 Assessment/Plan Assessment/Plan Chief Complaint/Hosp Course #1 end-stage renal disease . He will have hemodialysis today using his L upper arm fistula .His BUN is high today . next dialysis to be determined . #2 the patient is status post a cardiac arrest at home #3 altered level of consciousness, probable anoxic encephalopathy. #4 insulin-dependent diabetes mellitus #5 seizures #6 ventilator dependent respiratory failure , h/o COPD and pneumonia on CXR . #7 hyperphosphatemia , calcium acetate started . Problems: Consultation Date/Type/Reason Admit Date/Time Jul 27, 2016 at 23:29 Initial Consult Date 07/28/16 Type of Consultation: nephrology 24 HR Interval Summary Free Text/Dictation He is in the ICU on a ventilator , unresponsive . Subjective hx not possible: pt non-verbal Exam/Review of Systems Vital Signs Vitals Vital Signs Date Time Temp Pulse Resp B/P Pulse Ox O2 Delivery O2 Flow Rate FiO2 08/13/16 11:00 105 16 98 30 08/13/16 09:30 107/65 08/13/16 09:00 Mechanical Ventilator 08/13/16 08:00 99.0 Intake and Output 08/12/16 08/12/16 08/13/16 15:00 23:00 07:00 Intake Total 896.62 ml 304.10 ml 378.28 ml Output Total 3590 ml 15 ml Balance -2693.38 ml 289.10 ml 378.28 ml Exam Constitutional: non-verbal Respiratory: clear to auscultation, diminished breath sounds Cardiovascular: regular rate and rhythm Gastrointestinal: soft Musculoskeletal: nl extremities to inspection Results Result Diagram: 08/13/16 0520 08/13/16 0520 Results 24 hrs Laboratory Tests Test 08/12/16 12:43 08/12/16 18:12 08/12/16 22:48 08/13/16 01:16 Bedside Glucose 167 195 157 144 Test 08/13/16 04:27 08/13/16 05:00 08/13/16 05:20 08/13/16 08:35 Bedside Glucose 132 158 Arterial Blood HCO3 22.9 Arterial Blood Base Excess -1.2 Arterial Blood Oxygen Saturation 95.6 Osiel Test ACCEPTAB Arterial Blood Gas Puncture Site Right Radial Arterial Blood Carboxyhemoglobin 0 Arterial Blood Date Drawn 08/13/2016 5:22:37 AM Arterial Blood Methemoglobin 0.3 Arterial Blood pCO2 (Temp correct) 36.2 Arterial Blood pH (Temp corrected) 7.419 Arterial Blood pO2 (Temp corrected) 82.8 Blood Gas A-a O2 Differential 88.6 H Blood Gas Actual Respiration Rate 16 Blood Gas Inspiratory Pressure 27.0 Blood Gas Low PEEP Setting 5.0 Blood Gas Modality VENT - AC Blood Gas Notified Time 08/13/2016 5:27:27 AM Blood Gas Notified Whom BR Blood Gas Respiration Rate 16.0 Blood Gas Specimen Source Blood arterial Blood Gas Temperature 37.0 Blood Gas Tidal Volume 650.0 FiO2 30.0 Oxyhemoglobin Percent 95.3 Total Hemoglobin 12.8 Activated Partial Thromboplast Time 27.9 Alanine Aminotransferase (ALT/SGPT) 46 Albumin 3.8 Alkaline Phosphatase 113 Anion Gap 28 H Aspartate Amino Transf (AST/SGOT) 45 Basophils # 0.1 Basophils % 0.5 Blood Urea Nitrogen 104 H Calcium Level 8.4 Carbon Dioxide Level 22 Chloride Level 101 Creatinine 8.82 H Direct Bilirubin 0.00 Eosinophils # 0.2 Eosinophils % 0.9 Glucose Level 155 Hematocrit 34.0 L Hemoglobin 11.0 L INR International Normalized Ratio 1.14 Indirect Bilirubin 0.0 Lymphocytes # 1.8 Lymphocytes % 9.5 L Mean Corpuscular Hemoglobin 30.9 Mean Corpuscular Hemoglobin Concent 32.4 Mean Corpuscular Volume 95.5 Mean Platelet Volume 10.5 H Monocytes # 1.3 H Monocytes % 6.8 Neutrophils # 15.5 H Neutrophils % 79.9 H Nucleated Red Blood Cells # 0.0 Nucleated Red Blood Cells % 0.0 Platelet Count 392 Potassium Level 4.7 Prothrombin Time 14.6 H Prothrombin Time Ratio 1.1 Red Blood Count 3.56 L Red Cell Distribution Width 14.6 H Sodium Level 146 H Total Bilirubin 0.0 L Total Protein 7.8 White Blood Count 19.4 H Medications Medications Current Medications Labetalol HCl (Labetalol) 10 mg Q6H PRN IV sbp > 160 Last administered on 18:33; Admin Dose 10 MG; Start 07/28/16 at 00:30 Acetaminophen (Tylenol Supp) 650 mg Q6H PRN [place] PAIN AND OR ELEVATED TEMP Last administered on 07/31/16 17:30; Admin Dose 650 MG; Start 07/28/16 at 08:30 Miscellaneous Information 1 ea NOTE XX ; Start 07/28/16 at 09:00 Glucose (Glutose) 15 gm Q15M PRN PO DECREASED GLUCOSE; Start 07/28/16 at 09:00 Glucose (Glutose) 22.5 gm Q15M PRN PO DECREASED GLUCOSE; Start 07/28/16 at 09: 00 Dextrose (D50w Syringe) 25 ml Q15M PRN IV DECREASED GLUCOSE; Start 07/28/16 at 09:00 Dextrose (D50w Syringe) 50 ml Q15M PRN IV DECREASED GLUCOSE; Start 07/28/16 at 09:00 Glucagon (Glucagen) 1 mg Q15M PRN IM DECREASED GLUCOSE; Start 07/28/16 at 09:00 Glucose (Glutose) 15 gm Q15M PRN BUCCAL DECREASED GLUCOSE; Start 07/28/16 at 09 :00 IV Flush (NS 10 ml) 10 ml PRN PRN IV IV PROTOCOL; Start 07/29/16 at 17:00 Morphine Sulfate (morphine) 2 mg Q4 PRN IV PAIN Last administered on 08/12/16 23:38; Admin Dose 2 MG; Start 07/31/16 at 12:00 Pantoprazole (Protonix Iv) 40 mg DAILY@06 IV Last administered on 08/13/16 05: 30; Admin Dose 40 MG; Start 08/02/16 at 06:00 Lorazepam 1 mg 1 mg Q1H PRN IV SEIZURES Last administered on 08/11/16 12:25; Admin Dose 1 MG; Start 08/02/16 at 02:00 Piperacillin Sod/ Tazobactam Sod (Zosyn 2.25gm/ 50ml (Pmx)) 50 ml @ 100 mls/hr Q8 IVPB Last administered on 08/13/16 05:29; Admin Dose 100 MLS/HR; Start at 22:00 Acetaminophen (Tylenol Liquid) 650 mg Q4H PRN NGT PAIN AND OR ELEVATED TEMP Last administered on 08/11/16 08:32; Admin Dose 650 MG; Start 08/03/16 at 00:00 Insulin Glargine 20 unit 20 unit DAILY@08 SC Last administered on 08/13/16 08: 41; Admin Dose 20 UNIT; Start 08/03/16 at 12:00 Valproate Sodium/ Sodium Chloride (Depacon/NS) 57.5 ml @ 55 mls/hr Q6 IVPB Last administered on 08/13/16 05:29; Admin Dose 55 MLS/HR; Start 08/04/16 at 13: 00 Calcium Acetate 667 mg 667 mg Q6 NGT Last administered on 08/13/16 05:29; Admin Dose 667 MG; Start 08/05/16 at 08:30 Midazolam HCl 50 ml @ 0 mls/hr TITRATE IV Last administered on 08/05/16 22:38; Admin Dose 3 MLS/HR; Start 08/05/16 at 13:00 Fentanyl (Sublimaze) 100 ml @ 2.5 mls/hr TITRATE IV Last administered on 22:39; Admin Dose 10 MLS/HR; Start 08/05/16 at 16:00 Hydralazine HCl 10 mg 10 mg Q4H PRN IV ELEVATED SYSTOLIC BP Last administered on 08/13/16 04:26; Admin Dose 10 MG; Start 08/06/16 at 01:30 Vancomycin HCl 250 ml @ 125 mls/hr Q96H IVPB Last administered on 08/10/16 14: 59; Admin Dose 125 MLS/HR; Start 08/06/16 at 15:00 Levetiracetam/ Sodium Chloride (Keppra Iv/NS) 107.5 ml @ 420 mls/hr DAILY IVPB Last administered on 08/13/16 09:21; Admin Dose 420 MLS/HR; Start 08/08/16 at 09:00 Sodium Bicarbonate (Sodium Bicarbonate Tab) 650 mg Q8 PO Last administered on 05:30; Admin Dose 650 MG; Start 08/08/16 at 14:00 Insulin Aspart NOVOLOG *MODERATE* ALGORI... Q4 SC Last administered on 08:42; Admin Dose 2 UNIT; Start 08/11/16 at 13:00 Amiodarone HCl/ Dextrose (Cordarone Iv/ D5W) 500 ml @ 16.66 mls/ hr Q24H IV Last administered on 08/12/16 12:37; Admin Dose 16.66 MLS/HR; Start 08/12/16 at 08:38 Metoprolol Tartrate (Lopressor) 25 mg BID NGT Last administered on 08/13/16 08 :43; Admin Dose 25 MG; Start 08/12/16 at 09:00 Eye Lubricant (Artificial Tears Oph) 2 drop TID BOTH EYES Last administered on 08/13/16 08:43; Admin Dose 2 DROP; Start 08/13/16 at 09:00 Miscellaneous Information (*Rx Drug Level Order Reminder*) VANCOMYCIN TROUGH AT 1400 ONCE ONCE XX ; Start 08/14/16 at 14:00; Stop 08/14/16 at 14:01 Amiodarone HCl (Cordarone) 400 mg BID NGT ; Start 08/13/16 at 12:00; Status UNROSCOE BARKER MD Aug 13, 2016 12:19
[2016-08-13] MEDS: AMIODARONE 200 MG TAB NGT SCH ×2 (12:45→21:42)
--- NOTE | 2016-08-13 13:30 | PN ---
Date/Time of Note Date/Time of Note DATE: 08/13/16 TIME: 13:25 Assessment/Plan VTE Prophylaxis VTE Prophylaxis Intervention: SCD's Lines/Catheters IV Catheter Type (from Nrs): Arya cath Urinary Cath still in place: No Assessment/Plan Assessment/Plan Assessment: Dysphagia/enteral feeding required Post uneventful PEG Ventilator dependent respiratory failure Post tracheostomy Anoxic encephalopathy Post cardiac arrest End-stage renal disease on hemodialysis Insulin-dependent diabetes mellitus Seizures COPD Obesity Plan: Continue present regimen We will sign off and follow upon request Subjective 24 Hr Interval Summary Free Text/Dictation Course reviewed with nursing staff Tolerating feedings without difficulty G-tube site clean We will sign off and follow upon request Exam/Review of Systems Vital Signs Vitals Vital Signs Date Time Temp Pulse Resp B/P Pulse Ox O2 Delivery O2 Flow Rate FiO2 08/13/16 12:00 103 08/13/16 11:00 16 98 30 08/13/16 09:30 107/65 08/13/16 09:00 Mechanical Ventilator 08/13/16 08:00 99.0 Intake and Output 08/12/16 08/12/16 08/13/16 15:00 23:00 07:00 Intake Total 896.62 ml 304.10 ml 378.28 ml Output Total 3590 ml 15 ml Balance -2693.38 ml 289.10 ml 378.28 ml Exam Constitutional: obese, other (Unresponsive except for noxious stimuli) Head: atraumatic, normocephalic Neck: other (Post tracheostomy) Respiratory: clear to auscultation Cardiovascular: regular rate and rhythm Gastrointestinal: bowel sounds, distended, other (Gastrostomy tube in place), No ascites, No mass, No rebound or guarding, No splenomegaly, No tender Musculoskeletal: nl extremities to inspection Skin: nl turgor Lymph: nl lymph nodes Results Result Diagram: 08/13/16 0520 08/13/16 0520 Results 24 hrs Laboratory Tests Test 08/12/16 18:12 08/12/16 22:48 08/13/16 01:16 08/13/16 04:27 Bedside Glucose 195 157 144 132 Test 08/13/16 05:00 08/13/16 05:20 08/13/16 08:35 08/13/16 12:55 Arterial Blood HCO3 22.9 Arterial Blood Base Excess -1.2 Arterial Blood Oxygen Saturation 95.6 Osiel Test ACCEPTAB Arterial Blood Gas Puncture Site Right Radial Arterial Blood Carboxyhemoglobin 0 Arterial Blood Date Drawn 08/13/2016 5:22:37 AM Arterial Blood Methemoglobin 0.3 Arterial Blood pCO2 (Temp correct) 36.2 Arterial Blood pH (Temp corrected) 7.419 Arterial Blood pO2 (Temp corrected) 82.8 Blood Gas A-a O2 Differential 88.6 H Blood Gas Actual Respiration Rate 16 Blood Gas Inspiratory Pressure 27.0 Blood Gas Low PEEP Setting 5.0 Blood Gas Modality VENT - AC Blood Gas Notified Time 08/13/2016 5:27:27 AM Blood Gas Notified Whom BR Blood Gas Respiration Rate 16.0 Blood Gas Specimen Source Blood arterial Blood Gas Temperature 37.0 Blood Gas Tidal Volume 650.0 FiO2 30.0 Oxyhemoglobin Percent 95.3 Total Hemoglobin 12.8 Activated Partial Thromboplast Time 27.9 Alanine Aminotransferase (ALT/SGPT) 46 Albumin 3.8 Alkaline Phosphatase 113 Anion Gap 28 H Aspartate Amino Transf (AST/SGOT) 45 Basophils # 0.1 Basophils % 0.5 Blood Urea Nitrogen 104 H Calcium Level 8.4 Carbon Dioxide Level 22 Chloride Level 101 Creatinine 8.82 H Direct Bilirubin 0.00 Eosinophils # 0.2 Eosinophils % 0.9 Glucose Level 155 Hematocrit 34.0 L Hemoglobin 11.0 L INR International Normalized Ratio 1.14 Indirect Bilirubin 0.0 Lymphocytes # 1.8 Lymphocytes % 9.5 L Mean Corpuscular Hemoglobin 30.9 Mean Corpuscular Hemoglobin Concent 32.4 Mean Corpuscular Volume 95.5 Mean Platelet Volume 10.5 H Monocytes # 1.3 H Monocytes % 6.8 Neutrophils # 15.5 H Neutrophils % 79.9 H Nucleated Red Blood Cells # 0.0 Nucleated Red Blood Cells % 0.0 Platelet Count 392 Potassium Level 4.7 Prothrombin Time 14.6 H Prothrombin Time Ratio 1.1 Red Blood Count 3.56 L Red Cell Distribution Width 14.6 H Sodium Level 146 H Total Bilirubin 0.0 L Total Protein 7.8 White Blood Count 19.4 H Bedside Glucose 158 124 Medications Medications Current Medications Labetalol HCl (Labetalol) 10 mg Q6H PRN IV sbp > 160 Last administered on t 18:33; Admin Dose 10 MG; Start 07/28/16 at 00:30 Acetaminophen (Tylenol Supp) 650 mg Q6H PRN [place] PAIN AND OR ELEVATED TEMP Last administered on 07/31/16 17:30; Admin Dose 650 MG; Start 07/28/16 at 08:30 Miscellaneous Information 1 ea NOTE XX ; Start 07/28/16 at 09:00 Glucose (Glutose) 15 gm Q15M PRN PO DECREASED GLUCOSE; Start 07/28/16 at 09:00 Glucose (Glutose) 22.5 gm Q15M PRN PO DECREASED GLUCOSE; Start 07/28/16 at 09: 00 Dextrose (D50w Syringe) 25 ml Q15M PRN IV DECREASED GLUCOSE; Start 07/28/16 at 09:00 Dextrose (D50w Syringe) 50 ml Q15M PRN IV DECREASED GLUCOSE; Start 07/28/16 at 09:00 Glucagon (Glucagen) 1 mg Q15M PRN IM DECREASED GLUCOSE; Start 07/28/16 at 09:00 Glucose (Glutose) 15 gm Q15M PRN BUCCAL DECREASED GLUCOSE; Start 07/28/16 at 09 :00 IV Flush (NS 10 ml) 10 ml PRN PRN IV IV PROTOCOL; Start 07/29/16 at 17:00 Morphine Sulfate (morphine) 2 mg Q4 PRN IV PAIN Last administered on 08/12/16 23:38; Admin Dose 2 MG; Start 07/31/16 at 12:00 Pantoprazole (Protonix Iv) 40 mg DAILY@06 IV Last administered on 08/13/16 05: 30; Admin Dose 40 MG; Start 08/02/16 at 06:00 Lorazepam 1 mg 1 mg Q1H PRN IV SEIZURES Last administered on 08/11/16 12:25; Admin Dose 1 MG; Start 08/02/16 at 02:00 Piperacillin Sod/ Tazobactam Sod (Zosyn 2.25gm/ 50ml (Pmx)) 50 ml @ 100 mls/hr Q8 IVPB Last administered on 08/13/16 05:29; Admin Dose 100 MLS/HR; Start at 22:00 Acetaminophen (Tylenol Liquid) 650 mg Q4H PRN NGT PAIN AND OR ELEVATED TEMP Last administered on 08/11/16 08:32; Admin Dose 650 MG; Start 08/03/16 at 00:00 Insulin Glargine 20 unit 20 unit DAILY@08 SC Last administered on 08/13/16 08: 41; Admin Dose 20 UNIT; Start 08/03/16 at 12:00 Valproate Sodium/ Sodium Chloride (Depacon/NS) 57.5 ml @ 55 mls/hr Q6 IVPB Last administered on 08/13/16 12:44; Admin Dose 55 MLS/HR; Start 08/04/16 at 13: 00 Calcium Acetate 667 mg 667 mg Q6 NGT Last administered on 08/13/16 12:45; Admin Dose 667 MG; Start 08/05/16 at 08:30 Midazolam HCl 50 ml @ 0 mls/hr TITRATE IV Last administered on 08/05/16 22:38; Admin Dose 3 MLS/HR; Start 08/05/16 at 13:00 Fentanyl (Sublimaze) 100 ml @ 2.5 mls/hr TITRATE IV Last administered on 22:39; Admin Dose 10 MLS/HR; Start 08/05/16 at 16:00 Hydralazine HCl 10 mg 10 mg Q4H PRN IV ELEVATED SYSTOLIC BP Last administered on 08/13/16 04:26; Admin Dose 10 MG; Start 08/06/16 at 01:30 Vancomycin HCl 250 ml @ 125 mls/hr Q96H IVPB Last administered on 08/10/16 14: 59; Admin Dose 125 MLS/HR; Start 08/06/16 at 15:00 Levetiracetam/ Sodium Chloride (Keppra Iv/NS) 107.5 ml @ 420 mls/hr DAILY IVPB Last administered on 08/13/16 09:21; Admin Dose 420 MLS/HR; Start 08/08/16 at 09:00 Sodium Bicarbonate (Sodium Bicarbonate Tab) 650 mg Q8 PO Last administered on 05:30; Admin Dose 650 MG; Start 08/08/16 at 14:00 Insulin Aspart (Novolog Insulin Pen) NOVOLOG *MODERATE* ALGORI... Q4 SC Last administered on 08/13/16 08:42; Admin Dose 2 UNIT; Start 08/11/16 at 13:00 Metoprolol Tartrate (Lopressor) 25 mg BID NGT Last administered on 08/13/16 08 :43; Admin Dose 25 MG; Start 08/12/16 at 09:00 Eye Lubricant (Artificial Tears Oph) 2 drop TID BOTH EYES Last administered on 08/13/16 12:45; Admin Dose 2 DROP; Start 08/13/16 at 09:00 Miscellaneous Information (*Rx Drug Level Order Reminder*) VANCOMYCIN TROUGH AT 1400 ONCE ONCE XX ; Start 08/14/16 at 14:00; Stop 08/14/16 at 14:01 Amiodarone HCl (Cordarone) 400 mg BID NGT Last administered on 08/13/16 12:45 ; Admin Dose 400 MG; Start 08/13/16 at 12:00 NICKY RAMIREZ MD Aug 13, 2016 13:30
[2016-08-13] MEDS: HEPARIN 25000 UNITS/250 ML 250 ML IV SCH (14:23)
--- NOTE | 2016-08-13 16:18 | CONS ---
Date/Time of Note Date/Time of Note DATE: 08/13/16 TIME: 16:16 Consult Date/Type/Reason Admit Date/Time Jul 27, 2016 at 23:29 Initial Consult Date 07/28/16 Type of Consultation: Pulm Subjective Unresponsive on MV. On HD. s/p trach yesterday. Objective Vital Signs Date Time Temp Pulse Resp B/P Pulse Ox O2 Delivery O2 Flow Rate FiO2 08/13/16 16:15 105 08/13/16 13:30 16 106/54 99 08/13/16 13:00 Mechanical Ventilator 08/13/16 12:00 98.5 08/13/16 11:00 30 Intake and Output 08/12/16 08/12/16 08/13/16 15:00 23:00 07:00 Intake Total 896.62 ml 304.10 ml 378.28 ml Output Total 3590 ml 15 ml Balance -2693.38 ml 289.10 ml 378.28 ml HEENT: Neck supple; no JVD; no LAD CVS: RRR, S1 and S2 CHEST: Clear ABD: Soft, NT, + BS EXT: No c/c/e Results/Medications Result Diagram: 08/13/16 0508/13/16 0520 Results 24 hrs Laboratory Tests Test 08/12/16 18:12 08/12/16 22:48 08/13/16 01:16 08/13/16 04:27 Bedside Glucose 195 157 144 132 Test 08/13/16 05:00 08/13/16 05:20 08/13/16 08:35 08/13/16 12:55 Arterial Blood HCO3 22.9 Arterial Blood Base Excess -1.2 Arterial Blood Oxygen Saturation 95.6 Osiel Test ACCEPTAB Arterial Blood Gas Puncture Site Right Radial Arterial Blood Carboxyhemoglobin 0 Arterial Blood Date Drawn 08/13/2016 5:22:37 AM Arterial Blood Methemoglobin 0.3 Arterial Blood pCO2 (Temp correct) 36.2 Arterial Blood pH (Temp corrected) 7.419 Arterial Blood pO2 (Temp corrected) 82.8 Blood Gas A-a O2 Differential 88.6 H Blood Gas Actual Respiration Rate 16 Blood Gas Inspiratory Pressure 27.0 Blood Gas Low PEEP Setting 5.0 Blood Gas Modality VENT - AC Blood Gas Notified Time 08/13/2016 5:27:27 AM Blood Gas Notified Whom BR Blood Gas Respiration Rate 16.0 Blood Gas Specimen Source Blood arterial Blood Gas Temperature 37.0 Blood Gas Tidal Volume 650.0 FiO2 30.0 Oxyhemoglobin Percent 95.3 Total Hemoglobin 12.8 Activated Partial Thromboplast Time 27.9 Alanine Aminotransferase (ALT/SGPT) 46 Albumin 3.8 Alkaline Phosphatase 113 Anion Gap 28 H Aspartate Amino Transf (AST/SGOT) 45 Basophils # 0.1 Basophils % 0.5 Blood Urea Nitrogen 104 H Calcium Level 8.4 Carbon Dioxide Level 22 Chloride Level 101 Creatinine 8.82 H Direct Bilirubin 0.00 Eosinophils # 0.2 Eosinophils % 0.9 Glucose Level 155 Hematocrit 34.0 L Hemoglobin 11.0 L INR International Normalized Ratio 1.14 Indirect Bilirubin 0.0 Lymphocytes # 1.8 Lymphocytes % 9.5 L Mean Corpuscular Hemoglobin 30.9 Mean Corpuscular Hemoglobin Concent 32.4 Mean Corpuscular Volume 95.5 Mean Platelet Volume 10.5 H Monocytes # 1.3 H Monocytes % 6.8 Neutrophils # 15.5 H Neutrophils % 79.9 H Nucleated Red Blood Cells # 0.0 Nucleated Red Blood Cells % 0.0 Platelet Count 392 Potassium Level 4.7 Prothrombin Time 14.6 H Prothrombin Time Ratio 1.1 Red Blood Count 3.56 L Red Cell Distribution Width 14.6 H Sodium Level 146 H Total Bilirubin 0.0 L Total Protein 7.8 White Blood Count 19.4 H Bedside Glucose 158 124 Medications Current Medications Labetalol HCl (Labetalol) 10 mg Q6H PRN IV sbp > 160 Last administered on 18:33; Admin Dose 10 MG; Start 07/28/16 at 00:30 Acetaminophen (Tylenol Supp) 650 mg Q6H PRN [place] PAIN AND OR ELEVATED TEMP Last administered on 07/31/16 17:30; Admin Dose 650 MG; Start 07/28/16 at 08:30 Miscellaneous Information 1 ea NOTE XX ; Start 07/28/16 at 09:00 Glucose (Glutose) 15 gm Q15M PRN PO DECREASED GLUCOSE; Start 07/28/16 at 09:00 Glucose (Glutose) 22.5 gm Q15M PRN PO DECREASED GLUCOSE; Start 07/28/16 at 09: 00 Dextrose (D50w Syringe) 25 ml Q15M PRN IV DECREASED GLUCOSE; Start 07/28/16 at 09:00 Dextrose (D50w Syringe) 50 ml Q15M PRN IV DECREASED GLUCOSE; Start 07/28/16 at 09:00 Glucagon (Glucagen) 1 mg Q15M PRN IM DECREASED GLUCOSE; Start 07/28/16 at 09:00 Glucose (Glutose) 15 gm Q15M PRN BUCCAL DECREASED GLUCOSE; Start 07/28/16 at 09 :00 IV Flush (NS 10 ml) 10 ml PRN PRN IV IV PROTOCOL; Start 07/29/16 at 17:00 Morphine Sulfate (morphine) 2 mg Q4 PRN IV PAIN Last administered on 08/12/16 23:38; Admin Dose 2 MG; Start 07/31/16 at 12:00 Pantoprazole (Protonix Iv) 40 mg DAILY@06 IV Last administered on 08/13/16 05: 30; Admin Dose 40 MG; Start 08/02/16 at 06:00 Lorazepam 1 mg 1 mg Q1H PRN IV SEIZURES Last administered on 08/11/16 12:25; Admin Dose 1 MG; Start 08/02/16 at 02:00 Piperacillin Sod/ Tazobactam Sod (Zosyn 2.25gm/ 50ml (Pmx)) 50 ml @ 100 mls/hr Q8 IVPB Last administered on 08/13/16 05:29; Admin Dose 100 MLS/HR; Start at 22:00 Acetaminophen (Tylenol Liquid) 650 mg Q4H PRN NGT PAIN AND OR ELEVATED TEMP Last administered on 08/11/16 08:32; Admin Dose 650 MG; Start 08/03/16 at 00:00 Insulin Glargine 20 unit 20 unit DAILY@08 SC Last administered on 08/13/16 08: 41; Admin Dose 20 UNIT; Start 08/03/16 at 12:00 Valproate Sodium/ Sodium Chloride (Depacon/NS) 57.5 ml @ 55 mls/hr Q6 IVPB Last administered on 08/13/16 12:44; Admin Dose 55 MLS/HR; Start 08/04/16 at 13: 00 Calcium Acetate 667 mg 667 mg Q6 NGT Last administered on 08/13/16 12:45; Admin Dose 667 MG; Start 08/05/16 at 08:30 Midazolam HCl 50 ml @ 0 mls/hr TITRATE IV Last administered on 08/05/16 22:38; Admin Dose 3 MLS/HR; Start 08/05/16 at 13:00 Fentanyl (Sublimaze) 100 ml @ 2.5 mls/hr TITRATE IV Last administered on 22:39; Admin Dose 10 MLS/HR; Start 08/05/16 at 16:00 Hydralazine HCl 10 mg 10 mg Q4H PRN IV ELEVATED SYSTOLIC BP Last administered on 08/13/16 04:26; Admin Dose 10 MG; Start 08/06/16 at 01:30 Vancomycin HCl 250 ml @ 125 mls/hr Q96H IVPB Last administered on 08/10/16 14: 59; Admin Dose 125 MLS/HR; Start 08/06/16 at 15:00 Levetiracetam/ Sodium Chloride (Keppra Iv/NS) 107.5 ml @ 420 mls/hr DAILY IVPB Last administered on 08/13/16 09:21; Admin Dose 420 MLS/HR; Start 08/08/16 at 09:00 Sodium Bicarbonate (Sodium Bicarbonate Tab) 650 mg Q8 PO Last administered on 05:30; Admin Dose 650 MG; Start 08/08/16 at 14:00 Insulin Aspart (Novolog Insulin Pen) NOVOLOG *MODERATE* ALGORI... Q4 SC Last administered on 08/13/16 08:42; Admin Dose 2 UNIT; Start 08/11/16 at 13:00 Metoprolol Tartrate (Lopressor) 25 mg BID NGT Last administered on 08/13/16 08 :43; Admin Dose 25 MG; Start 08/12/16 at 09:00 Eye Lubricant (Artificial Tears Oph) 2 drop TID BOTH EYES Last administered on 08/13/16 12:45; Admin Dose 2 DROP; Start 08/13/16 at 09:00 Miscellaneous Information (*Rx Drug Level Order Reminder*) VANCOMYCIN TROUGH AT 1400 ONCE ONCE XX ; Start 08/14/16 at 14:00; Stop 08/14/16 at 14:01 Amiodarone HCl (Cordarone) 400 mg BID NGT Last administered on 08/13/16 12:45 ; Admin Dose 400 MG; Start 08/13/16 at 12:00 Assessment/Plan Additional Assessment/Plan IMPRESSION: 1. s/p Cardiopulmonary arrest. 2. Anoxic brain injury with anoxic seizures. 3. End-stage renal failure. Hyperkalemia with metabolic acidosis 4. No evidence of occlusive lesions on cardiac catheterization. 5. HTN heart Disease 6. Asthma RECS 1. Vent support, patient not amenable secondary to significant evidence anoxic brain injury 2. Daily assessment of mental status 3. Spontaneous respiratory effort not consistently brain 4. Neurology recommendations 5. Continue DVT and GI prophylaxis 6. Continue hemodialysis with correction of electrolytes 7. TF's/Free H20; increase free H20 35 min cc time KAYLI ROBLES MD Aug 13, 2016 16:18
--- NOTE | 2016-08-13 18:09 | PN ---
Date/Time of Note Date/Time of Note DATE: 08/13/16 TIME: 18:09 Assessment/Plan Lines/Catheters IV Catheter Type (from Nrs): Arya cath Lorenz in Place (from Nrs): No Assessment/Plan Chief Complaint/Hosp Course Respiratory Failure SP tracheostomy will continue trach care vent support Problems: Subjective 24 Hr Interval Summary Constitutional: improved Pain Control: mild Exam/Review of Systems Vital Signs Vitals Vital Signs Date Time Temp Pulse Resp B/P Pulse Ox O2 Delivery O2 Flow Rate FiO2 08/13/16 17:30 106 21 114/68 95 08/13/16 17:00 30 08/13/16 17:00 Mechanical Ventilator 08/13/16 16:00 99.2 Intake and Output 08/12/16 08/12/16 08/13/16 15:00 23:00 07:00 Intake Total 896.62 ml 304.10 ml 378.28 ml Output Total 3590 ml 15 ml Balance -2693.38 ml 289.10 ml 378.28 ml Exam Neck: non-tender, supple Respiratory: clear to auscultation, normal air movement Cardiovascular: nl pulses, regular rate and rhythm Gastrointestinal: nl liver, spleen, non-tender, soft Results Result Diagram: 08/13/16 0520 08/13/16519 ARMEN BADILLO MD Aug 13, 2016 18:09
[2016-08-14] VITALS (38 sets, daily range): BP systolic 84–179; BP diastolic 50–88; PULSE 80–112; RESP 13–24
[2016-08-14] MEDS: ALBUTEROL HFA 8 GM INHALER INH SCH ×6 (00:15→20:53)
[2016-08-14] MEDS: IPRATROPIUM (HFA) 12.9 GM INHALER INH SCH ×6 (00:15→20:52)
[2016-08-14] MEDS: CALCIUM ACETATE 667 MG CAP NGT SCH ×5 (00:54→23:07)
[2016-08-14] MEDS: VALPROATE INJ 750 MG in SOD CHLORIDE 0.9% 50 ML IVPB SCH ×5 (00:54→23:07)
[2016-08-14] MEDS: INSULIN ASPART [NOVOLOG] 3 ML PEN SC SCH ×6 (00:59→20:08)
[2016-08-14] MEDS: HEPARIN 25000 UNITS/250 ML 250 ML IV SCH ×2 (03:34→14:45)
[2016-08-14] MEDS: NA BICARBONATE 650 MG TAB PO SCH ×3 (06:49→21:23)
[2016-08-14] MEDS: PANTOPRAZOLE 40 MG INJ IV SCH (06:49)
[2016-08-14] MEDS: hydrALAzine 20 MG INJ IV PRN (06:49)
[2016-08-14] MEDS: PIPER-TAZO 2.25 GM (PMX) 50 ML IVPB SCH ×3 (06:49→21:22)
[2016-08-14] MEDS: INSULIN GLARGINE [LANtus] 3 ML PEN SC SCH (08:35)
[2016-08-14] MEDS: BUDESONIDE (NEB) 0.5MG/2ML AMP HHN SCH ×2 (08:41→20:52)
[2016-08-14] MEDS: LEVETIRACETAM IV 750 MG in SOD CHLORIDE 0.9% 100 ML IVPB SCH (09:04)
[2016-08-14] MEDS: ARTIFICIAL TEARS 15 ML OPH BOTH EYES SCH ×3 (09:04→20:01)
[2016-08-14] MEDS: AMIODARONE 200 MG TAB NGT SCH ×2 (09:05→20:01)
[2016-08-14] MEDS: METOPROLOL 25 MG TAB NGT SCH ×2 (09:05→20:00)
[2016-08-14] MEDS: ARFORMOTEROL TARTRATE 15MCG/2 ML AMP NEB SCH ×2 (09:10→20:52)
--- NOTE | 2016-08-14 10:37 | PN ---
Date/Time of Note Date/Time of Note DATE: 08/14/16 TIME: 10:34 Assessment/Plan VTE Prophylaxis VTE Prophylaxis Intervention: heparin Lines/Catheters IV Catheter Type (from Nrsg): PICC Line Central line still needed: Yes (IV access, Dialysis access ) Urinary Cath still in place: No Assessment/Plan Assessment/Plan 1. PEA s/p cardiac arrest , etiology PEA due to hypoxia -Neuro on the case - 2. ESRD on HD - on serial Hemodialysis due to high BUN- plan for HD as per Renal , catheter has been changed recently 3. SIRS with elevated white count and fever- R Lung opacity noted and may be Asp PNA on IV abx as per ID 4. VDRF - not able to wean off, s/p Tracheostomy now 5. Hypotension - cardiac shock vs septic shock - resolved 6. CHF - acute - diastolic vs systolic dysfunction - fluid to be removed via dialysis - monitor I/O's 7. Hx of hypertension - hold medications as patient is hypotensive 8. Type II DM-A1C at 7.3 -cont Lantus, NISS 9. GI ppx - protonix 10.. DVT ppx - hepari GI to decide abotu G tube placement on Next week Subjective 24 Hr Interval Summary Free Text/Dictation s/p tracheostomy, HD done as per nephrology Exam/Review of Systems Vital Signs Vitals Vital Signs Date Time Temp Pulse Resp B/P Pulse Ox O2 Delivery O2 Flow Rate FiO2 08/14/16 08:24 110 08/14/16 08:00 30 08/14/16 07:00 16 121/61 96 Mechanical Ventilator 08/14/16 04:00 99.8 Intake and Output 08/13/16 08/13/16 08/14/16 15:00 23:00 07:00 Intake Total 535.80 ml 1682.5 ml 532.5 ml Output Total 20 ml 5040 ml Balance 515.80 ml -3357.5 ml 532.5 ml Exam Constitutional: s/p tracheostomy on vent Respiratory: bilateral crackles +, no wheezing Cardiovascular: regular rate and rhythm Musculoskeletal: nl extremities to inspection Neurological: unresponsive + lan Hd catheter Results Result Diagram: 08/13/16 0520 08/13/16 0520 Results 24 hrs Laboratory Tests Test 08/13/16 12:55 08/13/16 16:32 08/13/16 19:55 08/13/16 20:05 Bedside Glucose 124 206 250 H Activated Partial Thromboplast Time > 180.0 *H Test 08/14/16 00:45 08/14/16 00:56 08/14/16 04:47 08/14/16 07:50 Activated Partial Thromboplast Time 27.1 34.1 Bedside Glucose 198 209 Test 08/14/16 08:31 Bedside Glucose 249 H Medications Medications Current Medications Labetalol HCl (Labetalol) 10 mg Q6H PRN IV sbp > 160 Last administered on 18:33; Admin Dose 10 MG; Start 07/28/16 at 00:30 Acetaminophen (Tylenol Supp) 650 mg Q6H PRN [place] PAIN AND OR ELEVATED TEMP Last administered on 07/31/16 17:30; Admin Dose 650 MG; Start 07/28/16 at 08:30 Miscellaneous Information 1 ea NOTE XX ; Start 07/28/16 at 09:00 Glucose (Glutose) 15 gm Q15M PRN PO DECREASED GLUCOSE; Start 07/28/16 at 09:00 Glucose (Glutose) 22.5 gm Q15M PRN PO DECREASED GLUCOSE; Start 07/28/16 at 09: 00 Dextrose (D50w Syringe) 25 ml Q15M PRN IV DECREASED GLUCOSE; Start 07/28/16 at 09:00 Dextrose (D50w Syringe) 50 ml Q15M PRN IV DECREASED GLUCOSE; Start 07/28/16 at 09:00 Glucagon (Glucagen) 1 mg Q15M PRN IM DECREASED GLUCOSE; Start 07/28/16 at 09:00 Glucose (Glutose) 15 gm Q15M PRN BUCCAL DECREASED GLUCOSE; Start 07/28/16 at 09 :00 IV Flush (NS 10 ml) 10 ml PRN PRN IV IV PROTOCOL; Start 07/29/16 at 17:00 Morphine Sulfate (morphine) 2 mg Q4 PRN IV PAIN Last administered on 08/12/16 23:38; Admin Dose 2 MG; Start 07/31/16 at 12:00 Pantoprazole (Protonix Iv) 40 mg DAILY@06 IV Last administered on 08/14/16 06: 49; Admin Dose 40 MG; Start 08/02/16 at 06:00 Lorazepam 1 mg 1 mg Q1H PRN IV SEIZURES Last administered on 08/11/16 12:25; Admin Dose 1 MG; Start 08/02/16 at 02:00 Piperacillin Sod/ Tazobactam Sod (Zosyn 2.25gm/ 50ml (Pmx)) 50 ml @ 100 mls/hr Q8 IVPB Last administered on 08/14/16 06:49; Admin Dose 100 MLS/HR; Start at 22:00 Acetaminophen (Tylenol Liquid) 650 mg Q4H PRN NGT PAIN AND OR ELEVATED TEMP Last administered on 08/11/16 08:32; Admin Dose 650 MG; Start 08/03/16 at 00:00 Insulin Glargine 20 unit 20 unit DAILY@08 SC Last administered on 08/14/16 08: 35; Admin Dose 20 UNIT; Start 08/03/16 at 12:00 Valproate Sodium/ Sodium Chloride (Depacon/NS) 57.5 ml @ 55 mls/hr Q6 IVPB Last administered on 08/14/16 06:49; Admin Dose 55 MLS/HR; Start 08/04/16 at 13: 00 Calcium Acetate 667 mg 667 mg Q6 NGT Last administered on 08/14/16 06:49; Admin Dose 667 MG; Start 08/05/16 at 08:30 Midazolam HCl 50 ml @ 0 mls/hr TITRATE IV Last administered on 08/05/16 22:38; Admin Dose 3 MLS/HR; Start 08/05/16 at 13:00 Fentanyl (Sublimaze) 100 ml @ 2.5 mls/hr TITRATE IV Last administered on 22:39; Admin Dose 10 MLS/HR; Start 08/05/16 at 16:00 Hydralazine HCl 10 mg 10 mg Q4H PRN IV ELEVATED SYSTOLIC BP Last administered on 08/14/16 06:49; Admin Dose 10 MG; Start 08/06/16 at 01:30 Vancomycin HCl 250 ml @ 125 mls/hr Q96H IVPB Last administered on 08/10/16 14: 59; Admin Dose 125 MLS/HR; Start 08/06/16 at 15:00 Levetiracetam/ Sodium Chloride (Keppra Iv/NS) 107.5 ml @ 420 mls/hr DAILY IVPB Last administered on 08/14/16 09:04; Admin Dose 420 MLS/HR; Start 08/08/16 at 09:00 Sodium Bicarbonate (Sodium Bicarbonate Tab) 650 mg Q8 PO Last administered on 06:49; Admin Dose 650 MG; Start 08/08/16 at 14:00 Insulin Aspart (Novolog Insulin Pen) NOVOLOG *MODERATE* ALGORI... Q4 SC Last administered on 08/14/16 08:37; Admin Dose 6 UNIT; Start 08/11/16 at 13:00 Metoprolol Tartrate (Lopressor) 25 mg BID NGT Last administered on 08/14/16 09 :05; Admin Dose 25 MG; Start 08/12/16 at 09:00 Eye Lubricant (Artificial Tears Oph) 2 drop TID BOTH EYES Last administered on 08/14/16 09:04; Admin Dose 2 DROP; Start 08/13/16 at 09:00 Miscellaneous Information (*Rx Drug Level Order Reminder*) VANCOMYCIN TROUGH AT 1400 ONCE ONCE XX ; Start 08/14/16 at 14:00; Stop 08/14/16 at 14:01 Amiodarone HCl (Cordarone) 400 mg BID NGT Last administered on 08/14/16 09:05 ; Admin Dose 400 MG; Start 08/13/16 at 12:00 NINFA PACK MD Aug 14, 2016 10:37
--- NOTE | 2016-08-14 11:21 | PN ---
Date/Time of Note Date/Time of Note DATE: 08/14/16 TIME: 11:20 Assessment/Plan Lines/Catheters IV Catheter Type (from Nrsg): PICC Line Lorenz in Place (from Nrsg): No Assessment/Plan Chief Complaint/Hosp Course Respiratory Failure SP tracheostomy will continue trach care vent support Problems: Subjective 24 Hr Interval Summary Constitutional: improved Pain Control: mild Exam/Review of Systems Vital Signs Vitals Vital Signs Date Time Temp Pulse Resp B/P Pulse Ox O2 Delivery O2 Flow Rate FiO2 08/14/16 08:24 110 08/14/16 08:00 30 08/14/16 07:00 16 121/61 96 Mechanical Ventilator 08/14/16 04:00 99.8 Intake and Output 08/13/16 08/13/16 08/14/16 15:00 23:00 07:00 Intake Total 535.80 ml 1682.5 ml 532.5 ml Output Total 20 ml 5040 ml Balance 515.80 ml -3357.5 ml 532.5 ml Exam Neck: non-tender, supple Respiratory: clear to auscultation, normal air movement Cardiovascular: nl pulses, regular rate and rhythm Gastrointestinal: nl liver, spleen, non-tender, soft Results Result Diagram: 08/13/1651908/13/16519 ARMEN BADILLO MD Aug 14, 2016 11:21
[2016-08-14] MEDS: HEPARIN 1000 UNITS/ML 10 ML INJ IV PRN (11:44)
--- NOTE | 2016-08-14 12:29 | CONS ---
Date/Time of Note Date/Time of Note DATE: 08/14/16 TIME: 12:27 Consult Date/Type/Reason Admit Date/Time Jul 27, 2016 at 23:29 Initial Consult Date 07/28/16 Type of Consultation: Pulm Subjective No events on mech vent via trach. Objective Vital Signs Date Time Temp Pulse Resp B/P Pulse Ox O2 Delivery O2 Flow Rate FiO2 08/14/16 12:10 105 08/14/16 12:00 99.7 17 132/77 97 Mechanical Ventilator 08/14/16 11:00 30 Intake and Output 08/13/16 08/13/16 08/14/16 15:00 23:00 07:00 Intake Total 535.80 ml 1682.5 ml 542.5 ml Output Total 20 ml 5040 ml Balance 515.80 ml -3357.5 ml 542.5 ml HEENT: Neck supple; no JVD; no LAD CVS: RRR, S1 and S2 CHEST: Clear ABD: Soft, NT, + BS EXT: No c/c/e Results/Medications Result Diagram: 08/13/16 0520 08/13/16 0520 Results 24 hrs Laboratory Tests Test 08/13/16 12:55 08/13/16 16:32 08/13/16 19:55 08/13/16 20:05 Bedside Glucose 124 206 250 H Activated Partial Thromboplast Time > 180.0 *H Test 08/14/16 00:45 08/14/16 00:56 08/14/16 04:47 08/14/16 07:50 Activated Partial Thromboplast Time 27.1 34.1 Bedside Glucose 198 209 Test 08/14/16 08:31 Bedside Glucose 249 H Medications Current Medications Labetalol HCl (Labetalol) 10 mg Q6H PRN IV sbp > 160 Last administered on 18:33; Admin Dose 10 MG; Start 07/28/16 at 00:30 Acetaminophen (Tylenol Supp) 650 mg Q6H PRN [place] PAIN AND OR ELEVATED TEMP Last administered on 07/31/16 17:30; Admin Dose 650 MG; Start 07/28/16 at 08:30 Miscellaneous Information 1 ea NOTE XX ; Start 07/28/16 at 09:00 Glucose (Glutose) 15 gm Q15M PRN PO DECREASED GLUCOSE; Start 07/28/16 at 09:00 Glucose (Glutose) 22.5 gm Q15M PRN PO DECREASED GLUCOSE; Start 07/28/16 at 09: 00 Dextrose (D50w Syringe) 25 ml Q15M PRN IV DECREASED GLUCOSE; Start 07/28/16 at 09:00 Dextrose (D50w Syringe) 50 ml Q15M PRN IV DECREASED GLUCOSE; Start 07/28/16 at 09:00 Glucagon (Glucagen) 1 mg Q15M PRN IM DECREASED GLUCOSE; Start 07/28/16 at 09:00 Glucose (Glutose) 15 gm Q15M PRN BUCCAL DECREASED GLUCOSE; Start 07/28/16 at 09 :00 IV Flush (NS 10 ml) 10 ml PRN PRN IV IV PROTOCOL; Start 07/29/16 at 17:00 Morphine Sulfate (morphine) 2 mg Q4 PRN IV PAIN Last administered on 08/12/16 23:38; Admin Dose 2 MG; Start 07/31/16 at 12:00 Pantoprazole (Protonix Iv) 40 mg DAILY@06 IV Last administered on 08/14/16 06: 49; Admin Dose 40 MG; Start 08/02/16 at 06:00 Lorazepam 1 mg 1 mg Q1H PRN IV SEIZURES Last administered on 08/11/16 12:25; Admin Dose 1 MG; Start 08/02/16 at 02:00 Piperacillin Sod/ Tazobactam Sod (Zosyn 2.25gm/ 50ml (Pmx)) 50 ml @ 100 mls/hr Q8 IVPB Last administered on 08/14/16 06:49; Admin Dose 100 MLS/HR; Start at 22:00 Acetaminophen (Tylenol Liquid) 650 mg Q4H PRN NGT PAIN AND OR ELEVATED TEMP Last administered on 08/11/16 08:32; Admin Dose 650 MG; Start 08/03/16 at 00:00 Insulin Glargine 20 unit 20 unit DAILY@08 SC Last administered on 08/14/16 08: 35; Admin Dose 20 UNIT; Start 08/03/16 at 12:00 Valproate Sodium/ Sodium Chloride (Depacon/NS) 57.5 ml @ 55 mls/hr Q6 IVPB Last administered on 08/14/16 12:08; Admin Dose 55 MLS/HR; Start 08/04/16 at 13: 00 Calcium Acetate 667 mg 667 mg Q6 NGT Last administered on 08/14/16 12:08; Admin Dose 667 MG; Start 08/05/16 at 08:30 Midazolam HCl 50 ml @ 0 mls/hr TITRATE IV Last administered on 08/05/16 22:38; Admin Dose 3 MLS/HR; Start 08/05/16 at 13:00 Fentanyl (Sublimaze) 100 ml @ 2.5 mls/hr TITRATE IV Last administered on 22:39; Admin Dose 10 MLS/HR; Start 08/05/16 at 16:00 Hydralazine HCl 10 mg 10 mg Q4H PRN IV ELEVATED SYSTOLIC BP Last administered on 08/14/16 06:49; Admin Dose 10 MG; Start 08/06/16 at 01:30 Vancomycin HCl 250 ml @ 125 mls/hr Q96H IVPB Last administered on 08/10/16 14: 59; Admin Dose 125 MLS/HR; Start 08/06/16 at 15:00 Levetiracetam/ Sodium Chloride (Keppra Iv/NS) 107.5 ml @ 420 mls/hr DAILY IVPB Last administered on 08/14/16 09:04; Admin Dose 420 MLS/HR; Start 08/08/16 at 09:00 Sodium Bicarbonate (Sodium Bicarbonate Tab) 650 mg Q8 PO Last administered on 06:49; Admin Dose 650 MG; Start 08/08/16 at 14:00 Insulin Aspart (Novolog Insulin Pen) NOVOLOG *MODERATE* ALGORI... Q4 SC Last administered on 08/14/16 08:37; Admin Dose 6 UNIT; Start 08/11/16 at 13:00 Metoprolol Tartrate (Lopressor) 25 mg BID NGT Last administered on 08/14/16 09 :05; Admin Dose 25 MG; Start 08/12/16 at 09:00 Eye Lubricant (Artificial Tears Oph) 2 drop TID BOTH EYES Last administered on 08/14/16 12:09; Admin Dose 2 DROP; Start 08/13/16 at 09:00 Miscellaneous Information (*Rx Drug Level Order Reminder*) VANCOMYCIN TROUGH AT 1400 ONCE ONCE XX ; Start 2/12/17 at 14:00; Stop 08/14/16 at 14:01 Amiodarone HCl (Cordarone) 400 mg BID NGT Last administered on 08/14/16t 09:05 ; Admin Dose 400 MG; Start 08/13/16 at 12:00 Assessment/Plan Additional Assessment/Plan IMPRESSION: 1. s/p Cardiopulmonary arrest. 2. Anoxic brain injury with anoxic seizures. 3. End-stage renal failure. Hyperkalemia with metabolic acidosis 4. No evidence of occlusive lesions on cardiac catheterization. 5. HTN heart Disease 6. Asthma RECS 1. Vent support, will try weaning as tolerated 2. TF's/Free H20; increase free H20 KAYLI ROBLES MD Aug 14, 2016 12:29
--- NOTE | 2016-08-14 14:36 | CONS ---
Date/Time of Note Date/Time of Note DATE: 08/14/16 TIME: 14:32 Assessment/Plan Assessment/Plan Chief Complaint/Hosp Course #1 end-stage renal disease . He will have hemodialysis tomorrow using his L upper arm fistula . I will check labs stat . #2 the patient is status post a cardiac arrest at home #3 altered level of consciousness, probable anoxic encephalopathy. #4 insulin-dependent diabetes mellitus #5 seizures #6 ventilator dependent respiratory failure , h/o COPD and pneumonia on CXR . #7 hyperphosphatemia , calcium acetate started . #8 new onset A fib , he was cardioverted and now on a heparin drip . Problems: Consultation Date/Type/Reason Admit Date/Time Jul 27, 2016 at 23:29 Initial Consult Date 07/28/16 Type of Consultation: Pulm 24 HR Interval Summary Free Text/Dictation He is in the ICU , unresponsive on a ventilator . Subjective hx not possible: pt non-verbal Exam/Review of Systems Vital Signs Vitals Vital Signs Date Time Temp Pulse Resp B/P Pulse Ox O2 Delivery O2 Flow Rate FiO2 08/14/16 12:10 105 08/14/16 12:00 30 08/14/16 12:00 99.7 17 132/77 97 Mechanical Ventilator Intake and Output 08/13/16 08/13/16 08/14/16 15:00 23:00 07:00 Intake Total 535.80 ml 1682.5 ml 542.5 ml Output Total 20 ml 5040 ml Balance 515.80 ml -3357.5 ml 542.5 ml Exam Constitutional: non-verbal Respiratory: clear to auscultation, diminished breath sounds Cardiovascular: regular rate and rhythm Gastrointestinal: soft Musculoskeletal: nl extremities to inspection Results Result Diagram: 08/13/16 0520 08/13/16 0520 Results 24 hrs Laboratory Tests Test 08/13/16 16:32 08/13/16 19:55 08/13/16 20:05 08/14/16 00:45 Bedside Glucose 206 250 H Activated Partial Thromboplast Time > 180.0 *H 27.1 Test 08/14/16 00:56 08/14/16 04:47 08/14/16 07:50 08/14/16 08:31 Bedside Glucose 198 209 249 H Activated Partial Thromboplast Time 34.1 Test 08/14/16 13:07 Bedside Glucose 268 H Medications Medications Current Medications Labetalol HCl (Labetalol) 10 mg Q6H PRN IV sbp > 160 Last administered on 18:33; Admin Dose 10 MG; Start 07/28/16 at 00:30 Acetaminophen (Tylenol Supp) 650 mg Q6H PRN [place] PAIN AND OR ELEVATED TEMP Last administered on 07/31/16 17:30; Admin Dose 650 MG; Start 07/28/16 at 08:30 Miscellaneous Information 1 ea NOTE XX ; Start 07/28/16 at 09:00 Glucose (Glutose) 15 gm Q15M PRN PO DECREASED GLUCOSE; Start 07/28/16 at 09:00 Glucose (Glutose) 22.5 gm Q15M PRN PO DECREASED GLUCOSE; Start 07/28/16 at 09: 00 Dextrose (D50w Syringe) 25 ml Q15M PRN IV DECREASED GLUCOSE; Start 07/28/16 at 09:00 Dextrose (D50w Syringe) 50 ml Q15M PRN IV DECREASED GLUCOSE; Start 07/28/16 at 09:00 Glucagon (Glucagen) 1 mg Q15M PRN IM DECREASED GLUCOSE; Start 07/28/16 at 09:00 Glucose (Glutose) 15 gm Q15M PRN BUCCAL DECREASED GLUCOSE; Start 07/28/16 at 09 :00 IV Flush (NS 10 ml) 10 ml PRN PRN IV IV PROTOCOL; Start 07/29/16 at 17:00 Morphine Sulfate (morphine) 2 mg Q4 PRN IV PAIN Last administered on 08/12/16 23:38; Admin Dose 2 MG; Start 07/31/16 at 12:00 Pantoprazole (Protonix Iv) 40 mg DAILY@06 IV Last administered on 08/14/16 06: 49; Admin Dose 40 MG; Start 08/02/16 at 06:00 Lorazepam 1 mg 1 mg Q1H PRN IV SEIZURES Last administered on 08/11/16 12:25; Admin Dose 1 MG; Start 08/02/16 at 02:00 Piperacillin Sod/ Tazobactam Sod (Zosyn 2.25gm/ 50ml (Pmx)) 50 ml @ 100 mls/hr Q8 IVPB Last administered on 08/14/16 13:08; Admin Dose 100 MLS/HR; Start at 22:00 Acetaminophen (Tylenol Liquid) 650 mg Q4H PRN NGT PAIN AND OR ELEVATED TEMP Last administered on 08/11/16 08:32; Admin Dose 650 MG; Start 08/03/16 at 00:00 Insulin Glargine 20 unit 20 unit DAILY@08 SC Last administered on 08/14/16 08: 35; Admin Dose 20 UNIT; Start 08/03/16 at 12:00 Valproate Sodium/ Sodium Chloride (Depacon/NS) 57.5 ml @ 55 mls/hr Q6 IVPB Last administered on 08/14/16 12:08; Admin Dose 55 MLS/HR; Start 08/04/16 at 13: 00 Calcium Acetate 667 mg 667 mg Q6 NGT Last administered on 08/14/16 12:08; Admin Dose 667 MG; Start 08/05/16 at 08:30 Midazolam HCl 50 ml @ 0 mls/hr TITRATE IV Last administered on 08/05/16 22:38; Admin Dose 3 MLS/HR; Start 08/05/16 at 13:00 Fentanyl (Sublimaze) 100 ml @ 2.5 mls/hr TITRATE IV Last administered on 22:39; Admin Dose 10 MLS/HR; Start 08/05/16 at 16:00 Hydralazine HCl 10 mg 10 mg Q4H PRN IV ELEVATED SYSTOLIC BP Last administered on 08/14/16 06:49; Admin Dose 10 MG; Start 08/06/16 at 01:30 Vancomycin HCl 250 ml @ 125 mls/hr Q96H IVPB Last administered on 08/10/16 14: 59; Admin Dose 125 MLS/HR; Start 08/06/16 at 15:00 Levetiracetam/ Sodium Chloride (Keppra Iv/NS) 107.5 ml @ 420 mls/hr DAILY IVPB Last administered on 08/14/16 09:04; Admin Dose 420 MLS/HR; Start 08/08/16 at 09:00 Sodium Bicarbonate (Sodium Bicarbonate Tab) 650 mg Q8 PO Last administered on 13:08; Admin Dose 650 MG; Start 08/08/16 at 14:00 Insulin Aspart (Novolog Insulin Pen) NOVOLOG *MODERATE* ALGORI... Q4 SC Last administered on 08/14/16 13:19; Admin Dose 8 UNIT; Start 08/11/16 at 13:00 Metoprolol Tartrate (Lopressor) 25 mg BID NGT Last administered on 08/14/16 09 :05; Admin Dose 25 MG; Start 08/12/16 at 09:00 Eye Lubricant (Artificial Tears Oph) 2 drop TID BOTH EYES Last administered on 08/14/16 12:09; Admin Dose 2 DROP; Start 08/13/16 at 09:00 Amiodarone HCl (Cordarone) 400 mg BID NGT Last administered on 08/14/16 09:05 ; Admin Dose 400 MG; Start 08/13/16 at 12:00 ROSCOE LANGE MD Aug 14, 2016 14:36
[2016-08-14 15:00] LABS: ALBUMIN 3.8 g/dl (3.3-4.9)
[2016-08-14 15:01] LABS: POTASSIUM 4.4 mmol/L (3.5-5.1)
[2016-08-14 15:04] LABS: ALBUMIN/GLOBULIN RATIO 0.95; CALCIUM 7.9 mg/dl (8.4-10.2); TOTAL PROTEIN 7.8 g/dl (6.1-8.1)
[2016-08-14 15:11] LABS: CREATININE 8.55 mg/dl (0.61-1.24)
[2016-08-14 15:35] LABS: BASOPHIL # 0.1 10^3/ul (0.0-0.1); BASOPHILS % 0.3 % (0.0-2.0); CONDITION 1; EOSINOPHILS # 0.2 10^3/ul (0.0-0.5); EOSINOPHILS % 1.2 % (0.0-7.0); HEMATOCRIT 32.1 % (42.0-52.0); HEMOGLOBIN 10.9 g/dl (14.0-18.0); LH ANALYZER COMMENTS 1; LYMPHOCYTES # 1.6 10^3/ul (0.8-2.9); LYMPHOCYTES % 8.5 % (15.0-51.0); MEAN CORPUSCULAR HEMOGLOBIN 31.5 pg (29.0-33.0); MEAN CORPUSCULAR VOLUME 92.8 fl (82.0-101.0); MEAN PLATELET VOLUME 8.7 fl (7.4-10.4); MONOCYTE # 1.2 10^3/ul (0.3-0.9); MONOCYTES % 6.7 % (0.0-11.0); NEUTROPHIL # 15.3 10^3/ul (1.6-7.5); NEUTROPHILS % 83.3 % (39.0-77.0); PLATELET COUNT 357 10^3/UL (140-440); RED BLOOD COUNT 3.46 10^6/ul (4.70-6.10); RED CELL DISTRIBUTION WIDTH 15.8 % (11.5-14.5); UNCORRECTED WBC 18.4 10^3/ul (4.8-10.8); WHITE BLOOD COUNT 18.4 10^3/ul (4.8-10.8)
[2016-08-14] MEDS: VANCOMYCIN 1 GM in NS 250 ML IVPB SCH (15:44)
[2016-08-14] MEDS: ACETAMINOPHEN 650MG/20.3ML CUP NGT PRN (21:23)
[2016-08-15] VITALS (50 sets, daily range): BP systolic 97–164; BP diastolic 58–99; PULSE 75–127; RESP 16–27
[2016-08-15] MEDS: IPRATROPIUM (HFA) 12.9 GM INHALER INH SCH ×6 (01:08→19:48)
[2016-08-15] MEDS: ALBUTEROL HFA 8 GM INHALER INH SCH ×6 (01:08→19:49)
[2016-08-15] MEDS: INSULIN ASPART [NOVOLOG] 3 ML PEN SC SCH ×6 (01:15→20:45)
[2016-08-15] MEDS: VALPROATE INJ 750 MG in SOD CHLORIDE 0.9% 50 ML IVPB SCH ×4 (05:06→23:28)
[2016-08-15] MEDS: NA BICARBONATE 650 MG TAB PO SCH ×3 (05:06→23:22)
[2016-08-15] MEDS: PANTOPRAZOLE 40 MG INJ IV SCH (05:06)
[2016-08-15 05:13] LABS: AADO2 Arterial 89.7 mmHg (7.0-24.0); Allen Test ACCEPTAB; Arterial Base Excess -2.8 mmol/L (-3.0-3); Arterial COHb 0.3 % (0.0-3.0); Arterial HCO3 21.6 mmol/L (22.0-26.0); Arterial MetHb 0.2 % (0.0-1.5); MODE VENT - AC
[2016-08-15] MEDS: CALCIUM ACETATE 667 MG CAP NGT SCH ×3 (05:16→17:33)
[2016-08-15] MEDS: HEPARIN 25000 UNITS/250 ML 250 ML IV SCH ×3 (06:39→21:43)
[2016-08-15 06:59] LABS: BASOPHILS % 0.2 % (0.0-2.0); EOSINOPHILS # 0.1 10^3/ul (0.0-0.5); EOSINOPHILS % 0.7 % (0.0-7.0); HEMATOCRIT 29.8 % (42.0-52.0); HEMOGLOBIN 10.1 g/dl (14.0-18.0); LYMPHOCYTES % 5.7 % (15.0-51.0); MEAN CORPUSCULAR HEMOGLOBIN 31.8 pg (29.0-33.0); MEAN CORPUSCULAR HGB CONC 34.1 g/dl (32.0-37.0); MEAN CORPUSCULAR VOLUME 93.2 fl (82.0-101.0); MEAN PLATELET VOLUME 9.4 fl (7.4-10.4); MONOCYTE # 1.2 10^3/ul (0.3-0.9); MONOCYTES % 6.6 % (0.0-11.0); NEUTROPHIL # 15.5 10^3/ul (1.6-7.5); NEUTROPHILS % 86.8 % (39.0-77.0); PLATELET COUNT 306 10^3/UL (140-440); RED BLOOD COUNT 3.19 10^6/ul (4.70-6.10); RED CELL DISTRIBUTION WIDTH 15.7 % (11.5-14.5); UNCORRECTED WBC 17.8 10^3/ul (4.8-10.8); WHITE BLOOD COUNT 17.8 10^3/ul (4.8-10.8)
[2016-08-15 07:05] LABS: CONDITION 1; LH ANALYZER COMMENTS 1; PARTIAL THROMBOPLASTIN TIME 64.1 Sec (25.0-35.0)
[2016-08-15 07:40] LABS: INR 1.12; PROTIME 14.4 Sec (12.2-14.2); PT RATIO 1.1
[2016-08-15 09:04] LABS: POTASSIUM 4.9 mmol/L (3.5-5.1)
[2016-08-15 09:08] LABS: CALCIUM 7.2 mg/dl (8.4-10.2)
[2016-08-15] MEDS: PIPER-TAZO 2.25 GM (PMX) 50 ML IVPB SCH (09:17)
[2016-08-15] MEDS: ARTIFICIAL TEARS 15 ML OPH BOTH EYES SCH ×3 (09:17→20:41)
[2016-08-15] MEDS: LEVETIRACETAM IV 750 MG in SOD CHLORIDE 0.9% 100 ML IVPB SCH (09:17)
[2016-08-15 09:18] LABS: CREATININE 9.75 mg/dl (0.61-1.24)
[2016-08-15] MEDS: AMIODARONE 200 MG TAB NGT SCH ×2 (09:18→20:42)
[2016-08-15] MEDS: METOPROLOL 25 MG TAB NGT SCH (09:18)
[2016-08-15] MEDS: INSULIN GLARGINE [LANtus] 3 ML PEN SC SCH (09:22)
[2016-08-15] MEDS: BUDESONIDE (NEB) 0.5MG/2ML AMP HHN SCH ×2 (09:33→19:47)
[2016-08-15] MEDS: ARFORMOTEROL TARTRATE 15MCG/2 ML AMP NEB SCH ×2 (09:33→19:48)
--- NOTE | 2016-08-15 10:24 | CONS ---
Date/Time of Note Date/Time of Note DATE: 08/15/16 TIME: 10:13 Assessment/Plan Assessment/Plan Chief Complaint/Hosp Course #1 end-stage renal disease . He had hemodialysis today and will order again tomorrow . He has a high BUN . #2 the patient is status post a cardiac arrest at home #3 altered level of consciousness, probable anoxic encephalopathy. #4 insulin-dependent diabetes mellitus #5 seizures #6 ventilator dependent respiratory failure , h/o COPD and pneumonia on CXR . #7 hyperphosphatemia , calcium acetate started . #8 new onset A fib , he was cardioverted and now on a heparin drip . Problems: Consultation Date/Type/Reason Admit Date/Time Jul 27, 2016 at 23:29 Initial Consult Date 07/28/16 Type of Consultation: Pulm 24 HR Interval Summary Free Text/Dictation He is in the ICU on a ventilator , unresponsive . He just finished hemodialysis and 3 liters was removed . Subjective hx not possible: pt non-verbal Exam/Review of Systems Vital Signs Vitals Vital Signs Date Time Temp Pulse Resp B/P Pulse Ox O2 Delivery O2 Flow Rate FiO2 08/15/16 09:51 114 17 100 30 08/15/16 08:00 99.0 138/86 Mechanical Ventilator Intake and Output 08/14/16 08/14/16 08/15/16 15:00 23:00 07:00 Intake Total 830.5 ml 996.5 ml 1084.5 ml Output Total 20 ml 100 ml 3550 ml Balance 810.5 ml 896.5 ml -2465.5 ml Exam Constitutional: non-verbal Respiratory: clear to auscultation, diminished breath sounds Cardiovascular: regular rate and rhythm Gastrointestinal: soft Musculoskeletal: nl extremities to inspection Results Result Diagram: 08/15/16 0552 08/15/16 0552 Results 24 hrs Laboratory Tests Test 08/14/16 13:07 08/14/16 13:55 08/14/16 14:40 08/14/16 16:25 Bedside Glucose 268 H Vancomycin Level Trough 15.1 Alanine Aminotransferase (ALT/SGPT) 26 Albumin 3.8 Albumin/Globulin Ratio 0.95 Alkaline Phosphatase 104 Anion Gap 28 H Aspartate Amino Transf (AST/SGOT) 41 Basophils # 0.1 Basophils % 0.3 Blood Morphology Comment Blood Urea Nitrogen 100 H Calcium Level 7.9 L Carbon Dioxide Level 24 Chloride Level 93 L Creatinine 8.55 H Direct Bilirubin 0.00 Eosinophils # 0.2 Eosinophils % 1.2 Globulin 4.00 H Glucose Level 248 H Hematocrit 32.1 L Hemoglobin 10.9 L Indirect Bilirubin 0.0 Lymphocytes # 1.6 Lymphocytes % 8.5 L Mean Corpuscular Hemoglobin 31.5 Mean Corpuscular Hemoglobin Concent 34.0 Mean Corpuscular Volume 92.8 Mean Platelet Volume 8.7 Monocytes # 1.2 H Monocytes % 6.7 Neutrophils # 15.3 H Neutrophils % 83.3 H Nucleated Red Blood Cells # 0.0 Nucleated Red Blood Cells % 0.0 Platelet Count 357 # Potassium Level 4.4 Red Blood Count 3.46 L Red Cell Distribution Width 15.8 H Sodium Level 141 Total Bilirubin 0.0 L Total Protein 7.8 White Blood Count 18.4 H Activated Partial Thromboplast Time 76.2 *H Test 08/14/16 17:39 08/14/16 20:02 08/14/16 23:15 08/15/16 01:13 Bedside Glucose 268 H 282 H 301 H Activated Partial Thromboplast Time 53.1 H Test 08/15/16 05:00 08/15/16 05:08 08/15/16 05:52 08/15/16 08:09 Arterial Blood HCO3 21.6 L Arterial Blood Base Excess -2.8 Arterial Blood Oxygen Saturation 94.5 L Osiel Test ACCEPTAB Arterial Blood Gas Puncture Site Right Radial Arterial Blood Carboxyhemoglobin 0.3 Arterial Blood Date Drawn 08/15/2016 4:43:38 AM Arterial Blood Methemoglobin 0.2 Arterial Blood pCO2 (Temp correct) 36.2 Arterial Blood pH (Temp corrected) 7.393 Arterial Blood pO2 (Temp corrected) 81.7 Blood Gas A-a O2 Differential 89.7 H Blood Gas Actual Respiration Rate 17 Blood Gas Inspiratory Pressure 23.0 Blood Gas Low PEEP Setting 5.0 Blood Gas Modality VENT - AC Blood Gas Notified Time 08/15/2016 5:13:44 AM Blood Gas Notified Whom MM Blood Gas Respiration Rate 16.0 Blood Gas Specimen Source Blood arterial Blood Gas Temperature 37.0 Blood Gas Tidal Volume 650.0 FiO2 30.0 Oxyhemoglobin Percent 94.0 Total Hemoglobin 12.0 Bedside Glucose 329 H 243 H Activated Partial Thromboplast Time 64.1 H Anion Gap 32 H Basophils # 0.0 Basophils % 0.2 Blood Morphology Comment Blood Urea Nitrogen 120 H Calcium Level 7.2 L Carbon Dioxide Level 20 L Chloride Level 93 L Creatinine 9.75 H Eosinophils # 0.1 Eosinophils % 0.7 Glucose Level 357 H Hematocrit 29.8 L Hemoglobin 10.1 L INR International Normalized Ratio 1.12 Lymphocytes # 1.0 Lymphocytes % 5.7 L Mean Corpuscular Hemoglobin 31.8 Mean Corpuscular Hemoglobin Concent 34.1 Mean Corpuscular Volume 93.2 Mean Platelet Volume 9.4 Monocytes # 1.2 H Monocytes % 6.6 Neutrophils # 15.5 H Neutrophils % 86.8 H Nucleated Red Blood Cells # 0.0 Nucleated Red Blood Cells % 0.0 Platelet Count 306 Potassium Level 4.9 Prothrombin Time 14.4 H Prothrombin Time Ratio 1.1 Red Blood Count 3.19 L Red Cell Distribution Width 15.7 H Sodium Level 140 White Blood Count 17.8 H Medications Medications Current Medications Labetalol HCl (Labetalol) 10 mg Q6H PRN IV sbp > 160 Last administered on 18:33; Admin Dose 10 MG; Start 07/28/16 at 00:30 Acetaminophen (Tylenol Supp) 650 mg Q6H PRN [place] PAIN AND OR ELEVATED TEMP Last administered on 07/31/16 17:30; Admin Dose 650 MG; Start 07/28/16 at 08:30 Miscellaneous Information 1 ea NOTE XX ; Start 07/28/16 at 09:00 Glucose (Glutose) 15 gm Q15M PRN PO DECREASED GLUCOSE; Start 07/28/16 at 09:00 Glucose (Glutose) 22.5 gm Q15M PRN PO DECREASED GLUCOSE; Start 07/28/16 at 09: 00 Dextrose (D50w Syringe) 25 ml Q15M PRN IV DECREASED GLUCOSE; Start 07/28/16 at 09:00 Dextrose (D50w Syringe) 50 ml Q15M PRN IV DECREASED GLUCOSE; Start 07/28/16 at 09:00 Glucagon (Glucagen) 1 mg Q15M PRN IM DECREASED GLUCOSE; Start 07/28/16 at 09:00 Glucose (Glutose) 15 gm Q15M PRN BUCCAL DECREASED GLUCOSE; Start 07/28/16 at 09 :00 IV Flush (NS 10 ml) 10 ml PRN PRN IV IV PROTOCOL; Start 07/29/16 at 17:00 Morphine Sulfate (morphine) 2 mg Q4 PRN IV PAIN Last administered on 08/12/16 23:38; Admin Dose 2 MG; Start 07/31/16 at 12:00 Pantoprazole (Protonix Iv) 40 mg DAILY@06 IV Last administered on 08/15/16 05: 06; Admin Dose 40 MG; Start 08/02/16 at 06:00 Lorazepam 1 mg 1 mg Q1H PRN IV SEIZURES Last administered on 08/11/16 12:25; Admin Dose 1 MG; Start 08/02/16 at 02:00 Piperacillin Sod/ Tazobactam Sod (Zosyn 2.25gm/ 50ml (Pmx)) 50 ml @ 100 mls/hr Q8 IVPB Last administered on 08/15/16 09:17; Admin Dose 100 MLS/HR; Start at 22:00 Acetaminophen (Tylenol Liquid) 650 mg Q4H PRN NGT PAIN AND OR ELEVATED TEMP Last administered on 08/14/16 21:23; Admin Dose 650 MG; Start 08/03/16 at 00:00 Insulin Glargine 20 unit 20 unit DAILY@08 SC Last administered on 08/15/16 09: 22; Admin Dose 20 UNIT; Start 08/03/16 at 12:00 Valproate Sodium/ Sodium Chloride (Depacon/NS) 57.5 ml @ 55 mls/hr Q6 IVPB Last administered on 08/15/16 05:06; Admin Dose 55 MLS/HR; Start 08/04/16 at 13: 00 Calcium Acetate (Phoslo) 667 mg Q6 NGT Last administered on 08/15/16 05:16; Admin Dose 667 MG; Start 08/05/16 at 08:30 Hydralazine HCl 10 mg 10 mg Q4H PRN IV ELEVATED SYSTOLIC BP Last administered on 08/14/16 06:49; Admin Dose 10 MG; Start 08/06/16 at 01:30 Vancomycin HCl 250 ml @ 125 mls/hr Q96H IVPB Last administered on 08/14/16 15 :44; Admin Dose 125 MLS/HR; Start 08/06/16 at 15:00 Levetiracetam/ Sodium Chloride (Keppra Iv/NS) 107.5 ml @ 420 mls/hr DAILY IVPB Last administered on 08/15/16 09:17; Admin Dose 420 MLS/HR; Start 08/08/16 at 09:00 Sodium Bicarbonate (Sodium Bicarbonate Tab) 650 mg Q8 PO Last administered on 05:06; Admin Dose 650 MG; Start 08/08/16 at 14:00 Insulin Aspart (Novolog Insulin Pen) NOVOLOG *MODERATE* ALGORI... Q4 SC Last administered on 08/15/16 09:22; Admin Dose 6 UNIT; Start 08/11/16 at 13:00 Metoprolol Tartrate (Lopressor) 25 mg BID NGT Last administered on 08/15/16 09 :18; Admin Dose 25 MG; Start 08/12/16 at 09:00 Eye Lubricant (Artificial Tears Oph) 2 drop TID BOTH EYES Last administered on 08/15/16 09:17; Admin Dose 2 DROP; Start 08/13/16 at 09:00 Amiodarone HCl (Cordarone) 400 mg BID NGT Last administered on 08/15/16 09:18 ; Admin Dose 400 MG; Start 08/13/16 at 12:00 ROSCOE LANGE MD Aug 15, 2016 10:23
--- NOTE | 2016-08-15 11:52 | PN ---
DATE: PULMONARY FOLLOWUP NOTE REASON FOR FOLLOWUP: Respiratory failure. SUBJECTIVE: Mr. Espinal remains stable. No new events. PHYSICAL EXAMINATION: VITAL SIGNS: Temperature 98, pulse is 110, blood pressure 138/60, O2 saturation 96%, FIO2 of 30%. NECK: Trach site clean and intact. CARDIAC: S1, S2, no added sounds or murmurs. CHEST: Diminished air entry bilaterally. ABDOMEN: Soft, nontender. No guarding or rebound. EXTREMITIES: No cyanosis, clubbing, 1+ edema. NEUROLOGIC: Unable to assess. LABORATORY DATA: White count 17.8, hemoglobin 10.1, platelets of 306. BUN 120, creatinine 9.75. A BG: pH 7.39, pCO2 36, pO2 of 81. INR 1.12. IMPRESSION AND PLAN: 1. Cardiopulmonary arrest. 2. Anoxic encephalopathy. 3. Now with tracheostomy and vent. 4. Now with G-tube. 5. End-stage renal failure on hemodialysis. PLAN: 1. Continue vent. 2. Continue hemodialysis. 3. Continue tube feeding. 4. Transfer to telemetry. 5. DVT and GI prophylaxis. Dictated By: JAVED WEBBER/BATSHEVA Conf#: [id number] DID#: [id number]
[2016-08-15] MEDS: hydrALAzine 20 MG INJ IV PRN (12:05)
--- NOTE | 2016-08-15 14:06 | PN ---
Date/Time of Note Date/Time of Note DATE: 08/15/16 TIME: 13:55 Assessment/Plan VTE Prophylaxis VTE Prophylaxis Intervention: heparin Lines/Catheters Urinary Cath still in place: No Assessment/Plan Chief Complaint/Hosp Course 1. PEA s/p cardiac arrest , etiology PEA due to hypoxia -Neuro on the case - -pt is s/p Trach/PEG and is not following commands 2. ESRD on HD - on serial Hemodialysis due to high BUN- plan for HD as per Renal , catheter has been changed recently 3. SIRS with elevated white count and fever- R Lung opacity noted and may be Asp PNA -DC Abx as has been on Abx for 18 days now 4. VDRF - not able to wean off, s/p Tracheostomy now 5. Hypotension - cardiac shock vs septic shock - resolved 6. CHF - acute - diastolic vs systolic dysfunction - fluid to be removed via dialysis - monitor I/O's 7. Hx of hypertension - hold medications as patient is hypotensive 8. Type II DM-A1C at 7.3 -cont Lantus, NISS 9. GI ppx - protonix 10.. DVT ppx - heparin Problems: Subjective 24 Hr Interval Summary Subjective hx not possible: pt non-verbal Exam/Review of Systems Vital Signs Vitals Vital Signs Date Time Temp Pulse Resp B/P Pulse Ox O2 Delivery O2 Flow Rate FiO2 08/15/16 13:00 118 16 114/63 93 Mechanical Ventilator 08/15/16 12:57 30 08/15/16 12:00 100.9 Intake and Output 08/14/16 08/14/16 08/15/16 15:00 23:00 07:00 Intake Total 830.5 ml 996.5 ml 1084.5 ml Output Total 20 ml 100 ml 3550 ml Balance 810.5 ml 896.5 ml -2465.5 ml Exam Constitutional: non-verbal Respiratory: clear to auscultation Cardiovascular: regular rate and rhythm Gastrointestinal: soft, No distended Musculoskeletal: nl extremities to inspection Results Result Diagram: 08/15/16 0552 08/15/16 0552 Results 24 hrs Laboratory Tests Test 08/14/16 14:40 08/14/16 16:25 08/14/16 17:39 08/14/16 20:02 Alanine Aminotransferase (ALT/SGPT) 26 Albumin 3.8 Albumin/Globulin Ratio 0.95 Alkaline Phosphatase 104 Anion Gap 28 H Aspartate Amino Transf (AST/SGOT) 41 Basophils # 0.1 Basophils % 0.3 Blood Morphology Comment Blood Urea Nitrogen 100 H Calcium Level 7.9 L Carbon Dioxide Level 24 Chloride Level 93 L Creatinine 8.55 H Direct Bilirubin 0.00 Eosinophils # 0.2 Eosinophils % 1.2 Globulin 4.00 H Glucose Level 248 H Hematocrit 32.1 L Hemoglobin 10.9 L Indirect Bilirubin 0.0 Lymphocytes # 1.6 Lymphocytes % 8.5 L Mean Corpuscular Hemoglobin 31.5 Mean Corpuscular Hemoglobin Concent 34.0 Mean Corpuscular Volume 92.8 Mean Platelet Volume 8.7 Monocytes # 1.2 H Monocytes % 6.7 Neutrophils # 15.3 H Neutrophils % 83.3 H Nucleated Red Blood Cells # 0.0 Nucleated Red Blood Cells % 0.0 Platelet Count 357 # Potassium Level 4.4 Red Blood Count 3.46 L Red Cell Distribution Width 15.8 H Sodium Level 141 Total Bilirubin 0.0 L Total Protein 7.8 White Blood Count 18.4 H Activated Partial Thromboplast Time 76.2 *H Bedside Glucose 268 H 282 H Test 08/14/16 23:15 08/15/16 01:13 08/15/16 05:00 08/15/16 05:08 Activated Partial Thromboplast Time 53.1 H Bedside Glucose 301 H 329 H Arterial Blood HCO3 21.6 L Arterial Blood Base Excess -2.8 Arterial Blood Oxygen Saturation 94.5 L Osiel Test ACCEPTAB Arterial Blood Gas Puncture Site Right Radial Arterial Blood Carboxyhemoglobin 0.3 Arterial Blood Date Drawn 08/15/2016 4:43:38 AM Arterial Blood Methemoglobin 0.2 Arterial Blood pCO2 (Temp correct) 36.2 Arterial Blood pH (Temp corrected) 7.393 Arterial Blood pO2 (Temp corrected) 81.7 Blood Gas A-a O2 Differential 89.7 H Blood Gas Actual Respiration Rate 17 Blood Gas Inspiratory Pressure 23.0 Blood Gas Low PEEP Setting 5.0 Blood Gas Modality VENT - AC Blood Gas Notified Time 08/15/2016 5:13:44 AM Blood Gas Notified Whom MM Blood Gas Respiration Rate 16.0 Blood Gas Specimen Source Blood arterial Blood Gas Temperature 37.0 Blood Gas Tidal Volume 650.0 FiO2 30.0 Oxyhemoglobin Percent 94.0 Total Hemoglobin 12.0 Test 08/15/16 05:52 08/15/16 08:09 08/15/16 11:52 08/15/16 12:19 Activated Partial Thromboplast Time 64.1 H 52.2 H Anion Gap 32 H Basophils # 0.0 Basophils % 0.2 Blood Morphology Comment Blood Urea Nitrogen 120 H Calcium Level 7.2 L Carbon Dioxide Level 20 L Chloride Level 93 L Creatinine 9.75 H Eosinophils # 0.1 Eosinophils % 0.7 Glucose Level 357 H Hematocrit 29.8 L Hemoglobin 10.1 L INR International Normalized Ratio 1.12 Lymphocytes # 1.0 Lymphocytes % 5.7 L Mean Corpuscular Hemoglobin 31.8 Mean Corpuscular Hemoglobin Concent 34.1 Mean Corpuscular Volume 93.2 Mean Platelet Volume 9.4 Monocytes # 1.2 H Monocytes % 6.6 Neutrophils # 15.5 H Neutrophils % 86.8 H Nucleated Red Blood Cells # 0.0 Nucleated Red Blood Cells % 0.0 Platelet Count 306 Potassium Level 4.9 Prothrombin Time 14.4 H Prothrombin Time Ratio 1.1 Red Blood Count 3.19 L Red Cell Distribution Width 15.7 H Sodium Level 140 White Blood Count 17.8 H Bedside Glucose 243 H 323 H Medications Medications Current Medications Labetalol HCl (Labetalol) 10 mg Q6H PRN IV sbp > 160 Last administered on 18:33; Admin Dose 10 MG; Start 07/28/16 at 00:30 Acetaminophen (Tylenol Supp) 650 mg Q6H PRN [place] PAIN AND OR ELEVATED TEMP Last administered on 07/31/16 17:30; Admin Dose 650 MG; Start 07/28/16 at 08:30 Miscellaneous Information 1 ea NOTE XX ; Start 07/28/16 at 09:00 Glucose (Glutose) 15 gm Q15M PRN PO DECREASED GLUCOSE; Start 07/28/16 at 09:00 Glucose (Glutose) 22.5 gm Q15M PRN PO DECREASED GLUCOSE; Start 07/28/16 at 09: 00 Dextrose (D50w Syringe) 25 ml Q15M PRN IV DECREASED GLUCOSE; Start 07/28/16 at 09:00 Dextrose (D50w Syringe) 50 ml Q15M PRN IV DECREASED GLUCOSE; Start 07/28/16 at 09:00 Glucagon (Glucagen) 1 mg Q15M PRN IM DECREASED GLUCOSE; Start 07/28/16 at 09:00 Glucose (Glutose) 15 gm Q15M PRN BUCCAL DECREASED GLUCOSE; Start 07/28/16 at 09 :00 IV Flush (NS 10 ml) 10 ml PRN PRN IV IV PROTOCOL; Start 07/29/16 at 17:00 Morphine Sulfate (morphine) 2 mg Q4 PRN IV PAIN Last administered on 08/12/16 23:38; Admin Dose 2 MG; Start 07/31/16 at 12:00 Pantoprazole (Protonix Iv) 40 mg DAILY@06 IV Last administered on 08/15/16 05: 06; Admin Dose 40 MG; Start 08/02/16 at 06:00 Lorazepam (Ativan) 1 mg Q1H PRN IV SEIZURES Last administered on 08/11/16 12:25 ; Admin Dose 1 MG; Start 08/02/16 at 02:00 Acetaminophen (Tylenol Liquid) 650 mg Q4H PRN NGT PAIN AND OR ELEVATED TEMP Last administered on 08/14/16 21:23; Admin Dose 650 MG; Start 08/03/16 at 00:00 Insulin Glargine 20 unit 20 unit DAILY@08 SC Last administered on 08/15/16 09: 22; Admin Dose 20 UNIT; Start 08/03/16 at 12:00 Valproate Sodium/ Sodium Chloride (Depacon/NS) 57.5 ml @ 55 mls/hr Q6 IVPB Last administered on 08/15/16 11:53; Admin Dose 55 MLS/HR; Start 08/04/16 at 13: 00 Calcium Acetate (Phoslo) 667 mg Q6 NGT Last administered on 08/15/16 11:53; Admin Dose 667 MG; Start 08/05/16 at 08:30 Hydralazine HCl 10 mg 10 mg Q4H PRN IV ELEVATED SYSTOLIC BP Last administered on 08/15/16 12:05; Admin Dose 10 MG; Start 08/06/16 at 01:30 Levetiracetam/ Sodium Chloride (Keppra Iv/NS) 107.5 ml @ 420 mls/hr DAILY IVPB Last administered on 08/15/16 09:17; Admin Dose 420 MLS/HR; Start 08/08/16 at 09:00 Sodium Bicarbonate (Sodium Bicarbonate Tab) 650 mg Q8 PO Last administered on 05:06; Admin Dose 650 MG; Start 08/08/16 at 14:00 Insulin Aspart (Novolog Insulin Pen) NOVOLOG *MODERATE* ALGORI... Q4 SC Last administered on 08/15/16 13:41; Admin Dose 10 UNIT; Start 08/11/16 at 13:00 Metoprolol Tartrate (Lopressor) 25 mg BID NGT Last administered on 08/15/16 09 :18; Admin Dose 25 MG; Start 08/12/16 at 09:00 Eye Lubricant (Artificial Tears Oph) 2 drop TID BOTH EYES Last administered on 08/15/16 12:06; Admin Dose 2 DROP; Start 08/13/16 at 09:00 Amiodarone HCl (Cordarone) 400 mg BID NGT Last administered on 08/15/16 09:18 ; Admin Dose 400 MG; Start 08/13/16 at 12:00 BARNEY MCKEE Aug 15, 2016 14:06
[2016-08-15] MEDS: ACETAMINOPHEN 650MG/20.3ML CUP NGT PRN ×2 (14:14→17:36)
--- NOTE | 2016-08-15 14:14 | CONS ---
Date/Time of Note Date/Time of Note DATE: 08/15/16 TIME: 14:08 Assessment/Plan Assessment/Plan Chief Complaint/Hosp Course Paroxysmal afib with RVR: converted to afib with RVR (rates up to 200) on 08/11 uncontrolled with meds and requiring cardioversion at 150 J for unstable hemodynamics. Remains in sinus. Should be on 1 month of anticoagulation post cardioversion. skilled nursing anticoagulation may not be necessary as CHADSVASC is 1 Fevers: ?infectious source. HR is increasing likely secondary to this. Cardiac arrest: PEA by history and likely respiratory/hypoxic mediated. Cardiac cath without significant CAD, EF preserved. Anoxic brain injury: EEG suggestive of brain but breathing over vent and passed apnea trial. Now off sedation for several days. Opens eyes at times but no purposeful movements. Acute on chronic diastolic heart failure: EF preserved. Receiving HD Acute respiratory failure: s/p trach ESRD on HD Seizures HTN -decrease to amiodarone 200mg BID as continued PO load, eventually should be on 200mg daily -continue heparin, start coumadin -increase to metoprolol 50 mg BID -CXR -infectious w/u per primary team -HD per nephrology Problems: Consultation Date/Type/Reason Admit Date/Time Jul 27, 2016 at 23:29 Initial Consult Date 07/28/16 Type of Consultation: Cardiology 24 HR Interval Summary Free Text/Dictation Has been having fevers up to 100.9. Sinus tachycardic on tele up to 120s now. SBP mostly elevated 160s. Remain unresponsive Exam/Review of Systems Vital Signs Vitals Vital Signs Date Time Temp Pulse Resp B/P Pulse Ox O2 Delivery O2 Flow Rate FiO2 08/15/16 13:00 118 16 114/63 93 Mechanical Ventilator 08/15/16 12:57 30 08/15/16 12:00 100.9 Intake and Output 08/14/16 08/14/16 08/15/16 15:00 23:00 07:00 Intake Total 830.5 ml 996.5 ml 1084.5 ml Output Total 20 ml 100 ml 3550 ml Balance 810.5 ml 896.5 ml -2465.5 ml Exam Constitutional: No alert Head: atraumatic, normocephalic Neck: No jvd (unabl eto examine ) Respiratory: diminished breath sounds, No clear to auscultation Cardiovascular: No edema, No regular rate and rhythm (tachycardic ) Neurological: No nl mental status, No nl speech Results Result Diagram: 08/15/16 0552 08/15/16 0552 Results 24 hrs Laboratory Tests Test 08/14/16 14:40 08/14/16 16:25 08/14/16 17:39 08/14/16 20:02 Alanine Aminotransferase (ALT/SGPT) 26 Albumin 3.8 Albumin/Globulin Ratio 0.95 Alkaline Phosphatase 104 Anion Gap 28 H Aspartate Amino Transf (AST/SGOT) 41 Basophils # 0.1 Basophils % 0.3 Blood Morphology Comment Blood Urea Nitrogen 100 H Calcium Level 7.9 L Carbon Dioxide Level 24 Chloride Level 93 L Creatinine 8.55 H Direct Bilirubin 0.00 Eosinophils # 0.2 Eosinophils % 1.2 Globulin 4.00 H Glucose Level 248 H Hematocrit 32.1 L Hemoglobin 10.9 L Indirect Bilirubin 0.0 Lymphocytes # 1.6 Lymphocytes % 8.5 L Mean Corpuscular Hemoglobin 31.5 Mean Corpuscular Hemoglobin Concent 34.0 Mean Corpuscular Volume 92.8 Mean Platelet Volume 8.7 Monocytes # 1.2 H Monocytes % 6.7 Neutrophils # 15.3 H Neutrophils % 83.3 H Nucleated Red Blood Cells # 0.0 Nucleated Red Blood Cells % 0.0 Platelet Count 357 # Potassium Level 4.4 Red Blood Count 3.46 L Red Cell Distribution Width 15.8 H Sodium Level 141 Total Bilirubin 0.0 L Total Protein 7.8 White Blood Count 18.4 H Activated Partial Thromboplast Time 76.2 *H Bedside Glucose 268 H 282 H Test 08/14/16 23:15 08/15/16 01:13 08/15/16 05:00 08/15/16 05:08 Activated Partial Thromboplast Time 53.1 H Bedside Glucose 301 H 329 H Arterial Blood HCO3 21.6 L Arterial Blood Base Excess -2.8 Arterial Blood Oxygen Saturation 94.5 L Osiel Test ACCEPTAB Arterial Blood Gas Puncture Site Right Radial Arterial Blood Carboxyhemoglobin 0.3 Arterial Blood Date Drawn 08/15/2016 4:43:38 AM Arterial Blood Methemoglobin 0.2 Arterial Blood pCO2 (Temp correct) 36.2 Arterial Blood pH (Temp corrected) 7.393 Arterial Blood pO2 (Temp corrected) 81.7 Blood Gas A-a O2 Differential 89.7 H Blood Gas Actual Respiration Rate 17 Blood Gas Inspiratory Pressure 23.0 Blood Gas Low PEEP Setting 5.0 Blood Gas Modality VENT - AC Blood Gas Notified Time 08/15/2016 5:13:44 AM Blood Gas Notified Whom MM Blood Gas Respiration Rate 16.0 Blood Gas Specimen Source Blood arterial Blood Gas Temperature 37.0 Blood Gas Tidal Volume 650.0 FiO2 30.0 Oxyhemoglobin Percent 94.0 Total Hemoglobin 12.0 Test 08/15/16 05:52 08/15/16 08:09 08/15/16 11:52 08/15/16 12:19 Activated Partial Thromboplast Time 64.1 H 52.2 H Anion Gap 32 H Basophils # 0.0 Basophils % 0.2 Blood Morphology Comment Blood Urea Nitrogen 120 H Calcium Level 7.2 L Carbon Dioxide Level 20 L Chloride Level 93 L Creatinine 9.75 H Eosinophils # 0.1 Eosinophils % 0.7 Glucose Level 357 H Hematocrit 29.8 L Hemoglobin 10.1 L INR International Normalized Ratio 1.12 Lymphocytes # 1.0 Lymphocytes % 5.7 L Mean Corpuscular Hemoglobin 31.8 Mean Corpuscular Hemoglobin Concent 34.1 Mean Corpuscular Volume 93.2 Mean Platelet Volume 9.4 Monocytes # 1.2 H Monocytes % 6.6 Neutrophils # 15.5 H Neutrophils % 86.8 H Nucleated Red Blood Cells # 0.0 Nucleated Red Blood Cells % 0.0 Platelet Count 306 Potassium Level 4.9 Prothrombin Time 14.4 H Prothrombin Time Ratio 1.1 Red Blood Count 3.19 L Red Cell Distribution Width 15.7 H Sodium Level 140 White Blood Count 17.8 H Bedside Glucose 243 H 323 H Medications Medications Current Medications Labetalol HCl (Labetalol) 10 mg Q6H PRN IV sbp > 160 Last administered on 18:33; Admin Dose 10 MG; Start 07/28/16 at 00:30 Acetaminophen (Tylenol Supp) 650 mg Q6H PRN [place] PAIN AND OR ELEVATED TEMP Last administered on 07/31/16 17:30; Admin Dose 650 MG; Start 07/28/16 at 08:30 Miscellaneous Information 1 ea NOTE XX ; Start 07/28/16 at 09:00 Glucose (Glutose) 15 gm Q15M PRN PO DECREASED GLUCOSE; Start 07/28/16 at 09:00 Glucose (Glutose) 22.5 gm Q15M PRN PO DECREASED GLUCOSE; Start 07/28/16 at 09: 00 Dextrose (D50w Syringe) 25 ml Q15M PRN IV DECREASED GLUCOSE; Start 07/28/16 at 09:00 Dextrose (D50w Syringe) 50 ml Q15M PRN IV DECREASED GLUCOSE; Start 07/28/16 at 09:00 Glucagon (Glucagen) 1 mg Q15M PRN IM DECREASED GLUCOSE; Start 07/28/16 at 09:00 Glucose (Glutose) 15 gm Q15M PRN BUCCAL DECREASED GLUCOSE; Start 07/28/16 at 09 :00 IV Flush (NS 10 ml) 10 ml PRN PRN IV IV PROTOCOL; Start 07/29/16 at 17:00 Morphine Sulfate (morphine) 2 mg Q4 PRN IV PAIN Last administered on 08/12/16 23:38; Admin Dose 2 MG; Start 07/31/16 at 12:00 Pantoprazole (Protonix Iv) 40 mg DAILY@06 IV Last administered on 08/15/16 05: 06; Admin Dose 40 MG; Start 08/02/16 at 06:00 Lorazepam (Ativan) 1 mg Q1H PRN IV SEIZURES Last administered on 08/11/16 12:25 ; Admin Dose 1 MG; Start 08/02/16 at 02:00 Acetaminophen (Tylenol Liquid) 650 mg Q4H PRN NGT PAIN AND OR ELEVATED TEMP Last administered on 08/14/16 21:23; Admin Dose 650 MG; Start 08/03/16 at 00:00 Insulin Glargine 20 unit 20 unit DAILY@08 SC Last administered on 08/15/16 09: 22; Admin Dose 20 UNIT; Start 08/03/16 at 12:00 Valproate Sodium/ Sodium Chloride (Depacon/NS) 57.5 ml @ 55 mls/hr Q6 IVPB Last administered on 08/15/16 11:53; Admin Dose 55 MLS/HR; Start 08/04/16 at 13: 00 Calcium Acetate (Phoslo) 667 mg Q6 NGT Last administered on 08/15/16 11:53; Admin Dose 667 MG; Start 08/05/16 at 08:30 Hydralazine HCl 10 mg 10 mg Q4H PRN IV ELEVATED SYSTOLIC BP Last administered on 2/13/17at 12:05; Admin Dose 10 MG; Start 08/06/16 at 01:30 Levetiracetam/ Sodium Chloride (Keppra Iv/NS) 107.5 ml @ 420 mls/hr DAILY IVPB Last administered on 08/15/16 09:17; Admin Dose 420 MLS/HR; Start 08/08/16 at 09:00 Sodium Bicarbonate (Sodium Bicarbonate Tab) 650 mg Q8 PO Last administered on 05:06; Admin Dose 650 MG; Start 08/08/16 at 14:00 Insulin Aspart (Novolog Insulin Pen) NOVOLOG *MODERATE* ALGORI... Q4 SC Last administered on 08/15/16 13:41; Admin Dose 10 UNIT; Start 08/11/16 at 13:00 Eye Lubricant (Artificial Tears Oph) 2 drop TID BOTH EYES Last administered on 08/15/16 12:06; Admin Dose 2 DROP; Start 08/13/16 at 09:00 Amiodarone HCl (Cordarone) 200 mg BID NGT ; Start 08/15/16 at 21:00 Metoprolol Tartrate (Lopressor) 50 mg BID NGT ; Start 08/15/16 at 21:00 Warfarin Sodium (Coumadin) 5 mg DAILY@17 NGT ; Start 08/15/16 at 17:00 JACKSON CUNNINGHAM Aug 15, 2016 14:14
--- NOTE | 2016-08-15 14:14 | RADRPT ---
PROCEDURE: XR Chest. CLINICAL INDICATION: Patient on ventilator TECHNIQUE: Single AP view of the chest were obtained COMPARISON: 08/13/2016 FINDINGS: The heart is borderline enlarged and stable. The pulmonary vasculature are unremarkable. The aorta is grossly unremarkable. There is no lung consolidation, pleural effusion or pneumothorax. Ther e is no acute osseous abnormality. Tracheostomy tube tip terminates in the trachea above the [place]. A central line catheter is seen with terminates at the SVC. IMPRESSION: Stable mild cardiomegaly. RPTAT: AA .Kasei Yancey MD, MD Date Time Electronically viewed and signed by .Kasie Yancey MD, on 08/15/2016 14:14 .[place]/
--- NOTE | 2016-08-15 15:14 | PN ---
Date/Time of Note Date/Time of Note DATE: 08/15/16 TIME: 15:14 Assessment/Plan Lines/Catheters Lorenz in Place (from Nrs): No Assessment/Plan Chief Complaint/Hosp Course Respiratory Failure SP tracheostomy will continue trach care vent support Problems: Subjective 24 Hr Interval Summary Constitutional: improved Pain Control: mild Exam/Review of Systems Vital Signs Vitals Vital Signs Date Time Temp Pulse Resp B/P Pulse Ox O2 Delivery O2 Flow Rate FiO2 08/15/16 13:00 118 16 114/63 93 Mechanical Ventilator 08/15/16 12:57 30 08/15/16 12:00 100.9 Intake and Output 08/14/16 08/14/16 08/15/16 15:00 23:00 07:00 Intake Total 830.5 ml 996.5 ml 1084.5 ml Output Total 20 ml 100 ml 3550 ml Balance 810.5 ml 896.5 ml -2465.5 ml Exam Neck: non-tender, supple Respiratory: clear to auscultation, normal air movement Cardiovascular: nl pulses, regular rate and rhythm Gastrointestinal: nl liver, spleen, non-tender, soft Results Result Diagram: 08/15/16 0552 08/15/16 0552 ARMEN BADILLO MD Aug 15, 2016 15:14
--- NOTE | 2016-08-15 15:37 | RADRPT ---
PROCEDURE: XR Chest. CLINICAL INDICATION: Fever. TECHNIQUE: Single frontal view of the chest was obtained COMPARISON: Chest x-ray August 15, 2016 11:03 a.m. FINDINGS: Heart is enlarged. The PICC line catheter enters the right arm with its tip in the superior vena ca va. The tracheostomy tube is well-positioned at T3-4. There are monitor electrodes great across th e chest. There is a poor inspiration. The pulmonary vasculature is equilibrated consistent with [place] positioning. The heart is enlarged. IMPRESSION: 1. Mild cardiomegaly. 2. Satisfactory positioning of a PICC line catheter and tracheostomy tube. 3. No change is noted as compared to August 15, 2016. No acute infiltrate is identified. RPTAT:AAJJ Physician Marina Date Time Electronically viewed and signed by Jose Braswell Physician on 08/15/2016 15:37 NAFISA/
[2016-08-15] MEDS ORDERED: WARFARIN 5 MG TAB NGT SCH (17:00)
[2016-08-15] MEDS: METOPROLOL 50 MG TAB NGT SCH (20:42)
[2016-08-16] VITALS (31 sets, daily range): BP systolic 125–203; BP diastolic 47–98; PULSE 94–126; RESP 16–23
[2016-08-16] MEDS: CALCIUM ACETATE 667 MG CAP NGT SCH ×5 (01:10→23:48)
[2016-08-16] MEDS: INSULIN ASPART [NOVOLOG] 3 ML PEN SC SCH ×6 (01:15→20:33)
[2016-08-16] MEDS: ALBUTEROL HFA 8 GM INHALER INH SCH ×6 (01:29→20:08)
[2016-08-16] MEDS: IPRATROPIUM (HFA) 12.9 GM INHALER INH SCH ×6 (01:29→20:08)
[2016-08-16 04:11] LABS: BASOPHIL # 0.1 10^3/ul (0.0-0.1); BASOPHILS % 0.5 % (0.0-2.0); EOSINOPHILS # 0.1 10^3/ul (0.0-0.5); EOSINOPHILS % 0.7 % (0.0-7.0); HEMATOCRIT 32.2 % (42.0-52.0); HEMOGLOBIN 10.8 g/dl (14.0-18.0); LYMPHOCYTES # 1.8 10^3/ul (0.8-2.9); LYMPHOCYTES % 8.6 % (15.0-51.0); MEAN CORPUSCULAR HEMOGLOBIN 31.1 pg (29.0-33.0); MEAN CORPUSCULAR HGB CONC 33.6 g/dl (32.0-37.0); MEAN CORPUSCULAR VOLUME 92.5 fl (82.0-101.0); MEAN PLATELET VOLUME 8.9 fl (7.4-10.4); MONOCYTE # 1.2 10^3/ul (0.3-0.9); NEUTROPHIL # 17.2 10^3/ul (1.6-7.5); NEUTROPHILS % 84.2 % (39.0-77.0); PLATELET COUNT 347 10^3/UL (140-440); RED BLOOD COUNT 3.48 10^6/ul (4.70-6.10); RED CELL DISTRIBUTION WIDTH 15.5 % (11.5-14.5); UNCORRECTED WBC 20.5 10^3/ul (4.8-10.8); WHITE BLOOD COUNT 20.5 10^3/ul (4.8-10.8)
[2016-08-16 04:15] LABS: CONDITION 1; LH ANALYZER COMMENTS 1
[2016-08-16 04:16] LABS: POTASSIUM 5.1 mmol/L (3.5-5.1)
[2016-08-16 04:20] LABS: CALCIUM 8.7 mg/dl (8.4-10.2); MAGNESIUM 2.8 mg/dl (1.7-2.5); PHOSPHORUS 8.5 mg/dl (2.5-4.9)
[2016-08-16 04:35] LABS: CREATININE 7.75 mg/dl (0.61-1.24)
[2016-08-16] MEDS: ACETAMINOPHEN 650MG/20.3ML CUP NGT PRN ×2 (04:39→19:53)
[2016-08-16] MEDS: VALPROATE INJ 750 MG in SOD CHLORIDE 0.9% 50 ML IVPB SCH ×4 (05:20→23:48)
[2016-08-16] MEDS: PANTOPRAZOLE 40 MG INJ IV SCH (05:21)
[2016-08-16] MEDS: NA BICARBONATE 650 MG TAB PO SCH ×3 (05:21→23:47)
[2016-08-16] MEDS: INSULIN GLARGINE [LANtus] 3 ML PEN SC SCH (07:37)
[2016-08-16] MEDS: ARTIFICIAL TEARS 15 ML OPH BOTH EYES SCH ×3 (09:00→20:28)
[2016-08-16] MEDS: METOPROLOL 50 MG TAB NGT SCH ×2 (09:01→20:22)
[2016-08-16] MEDS: AMIODARONE 200 MG TAB NGT SCH ×2 (09:01→20:21)
[2016-08-16] MEDS: BUDESONIDE (NEB) 0.5MG/2ML AMP HHN SCH ×2 (09:10→20:08)
[2016-08-16] MEDS: ARFORMOTEROL TARTRATE 15MCG/2 ML AMP NEB SCH ×2 (09:10→21:06)
--- NOTE | 2016-08-16 09:21 | CONS ---
Date/Time of Note Date/Time of Note DATE: 08/16/16 TIME: 09:18 Assessment/Plan Assessment/Plan Chief Complaint/Hosp Course Paroxysmal afib with RVR: converted to afib with RVR (rates up to 200) on 08/11 uncontrolled with meds and requiring cardioversion at 150 J for unstable hemodynamics. Remains in sinus. Should be on 1 month of anticoagulation post cardioversion. shelter anticoagulation may not be necessary as CHADSVASC is 1 Fevers: ?infectious source (CXR clear, c dif negative, no UOP) vs central fevers HR is increasing likely secondary to this. Cardiac arrest: PEA by history and likely respiratory/hypoxic mediated. Cardiac cath without significant CAD, EF preserved. Anoxic brain injury: EEG suggestive of brain but breathing over vent and passed apnea trial. Now off sedation for several days. Opens eyes at times but no purposeful movements. Acute on chronic diastolic heart failure: EF preserved. Receiving HD Acute respiratory failure: s/p trach ESRD on HD Seizures HTN -amiodarone 200mg BID as continued PO load, switch to 200mg daily tomorrow -continue heparin, coumadin -check daily INR, hold heparin once INR >2 -metoprolol 50 mg BID -infectious w/u per primary team -HD per nephrology Problems: Consultation Date/Type/Reason Admit Date/Time Jul 27, 2016 at 23:29 Initial Consult Date 07/28/16 Type of Consultation: Cardiology 24 HR Interval Summary Free Text/Dictation Still with fevers up to 101.4. Remains unresponsive. Exam/Review of Systems Vital Signs Vitals Vital Signs Date Time Temp Pulse Resp B/P Pulse Ox O2 Delivery O2 Flow Rate FiO2 08/16/16 09:05 104 08/16/16 08:19 22 96 30 08/16/16 07:33 99.2 138/67 08/15/16 16:00 Mechanical Ventilator Intake and Output 08/15/16 08/15/16 08/16/16 15:00 23:00 07:00 Intake Total 706.5 ml 700 ml Output Total 200 ml Balance 506.5 ml 700 ml Exam Constitutional: No alert Head: atraumatic, normocephalic Neck: No jvd Respiratory: diminished breath sounds, No clear to auscultation Cardiovascular: No regular rate and rhythm (tachycardic ) Gastrointestinal: soft, No non-tender Neurological: No nl mental status, No nl speech Results Result Diagram: 08/16/16 0350 08/16/16 0350 Results 24 hrs Laboratory Tests Test 08/15/16 11:52 08/15/16 12:19 08/15/16 17:12 08/15/16 20:03 Bedside Glucose 323 H 369 H 388 H Activated Partial Thromboplast Time 52.2 H Test 08/15/16 20:35 08/16/16 01:11 08/16/16 03:50 08/16/16 05:42 Activated Partial Thromboplast Time 68.0 H 67.5 H Bedside Glucose 314 H 296 H Anion Gap 28 H Basophils # 0.1 Basophils % 0.5 Blood Morphology Comment Blood Urea Nitrogen 92 H Calcium Level 8.7 Carbon Dioxide Level 24 Chloride Level 97 Creatinine 7.75 #H Eosinophils # 0.1 Eosinophils % 0.7 Glucose Level 287 H Hematocrit 32.2 L Hemoglobin 10.8 L Lymphocytes # 1.8 Lymphocytes % 8.6 L Magnesium Level 2.8 H Mean Corpuscular Hemoglobin 31.1 Mean Corpuscular Hemoglobin Concent 33.6 Mean Corpuscular Volume 92.5 Mean Platelet Volume 8.9 Monocytes # 1.2 H Monocytes % 6.0 Neutrophils # 17.2 H Neutrophils % 84.2 H Nucleated Red Blood Cells # 0.0 Nucleated Red Blood Cells % 0.0 Phosphorus Level 8.5 H Platelet Count 347 Potassium Level 5.1 Red Blood Count 3.48 L Red Cell Distribution Width 15.5 H Sodium Level 144 White Blood Count 20.5 H Test 08/16/16 07:29 Bedside Glucose 293 H Medications Medications Current Medications Labetalol HCl (Labetalol) 10 mg Q6H PRN IV sbp > 160 Last administered on 18:33; Admin Dose 10 MG; Start 07/28/16 at 00:30 Acetaminophen (Tylenol Supp) 650 mg Q6H PRN [place] PAIN AND OR ELEVATED TEMP Last administered on 07/31/16 17:30; Admin Dose 650 MG; Start 07/28/16 at 08:30 Miscellaneous Information 1 ea NOTE XX ; Start 07/28/16 at 09:00 Glucose (Glutose) 15 gm Q15M PRN PO DECREASED GLUCOSE; Start 07/28/16 at 09:00 Glucose (Glutose) 22.5 gm Q15M PRN PO DECREASED GLUCOSE; Start 07/28/16 at 09: 00 Dextrose (D50w Syringe) 25 ml Q15M PRN IV DECREASED GLUCOSE; Start 07/28/16 at 09:00 Dextrose (D50w Syringe) 50 ml Q15M PRN IV DECREASED GLUCOSE; Start 07/28/16 at 09:00 Glucagon (Glucagen) 1 mg Q15M PRN IM DECREASED GLUCOSE; Start 07/28/16 at 09:00 Glucose (Glutose) 15 gm Q15M PRN BUCCAL DECREASED GLUCOSE; Start 07/28/16 at 09 :00 IV Flush (NS 10 ml) 10 ml PRN PRN IV IV PROTOCOL; Start 07/29/16 at 17:00 Morphine Sulfate (morphine) 2 mg Q4 PRN IV PAIN Last administered on 08/12/16 23:38; Admin Dose 2 MG; Start 07/31/16 at 12:00 Pantoprazole (Protonix Iv) 40 mg DAILY@06 IV Last administered on 08/16/16 05: 21; Admin Dose 40 MG; Start 08/02/16 at 06:00 Lorazepam (Ativan) 1 mg Q1H PRN IV SEIZURES Last administered on 08/11/16 12:25 ; Admin Dose 1 MG; Start 08/02/16 at 02:00 Acetaminophen (Tylenol Liquid) 650 mg Q4H PRN NGT PAIN AND OR ELEVATED TEMP Last administered on 08/16/16 04:39; Admin Dose 650 MG; Start 08/03/16 at 00:00 Insulin Glargine 20 unit 20 unit DAILY@08 SC Last administered on 08/16/16 07: 37; Admin Dose 20 UNIT; Start 08/03/16 at 12:00 Valproate Sodium/ Sodium Chloride (Depacon/NS) 57.5 ml @ 55 mls/hr Q6 IVPB Last administered on 08/16/16 05:20; Admin Dose 55 MLS/HR; Start 08/04/16 at 13: 00 Calcium Acetate (Phoslo) 667 mg Q6 NGT Last administered on 08/16/16 05:47; Admin Dose 667 MG; Start 08/05/16 at 08:30 Hydralazine HCl 10 mg 10 mg Q4H PRN IV ELEVATED SYSTOLIC BP Last administered on 08/15/16 12:05; Admin Dose 10 MG; Start 08/06/16 at 01:30 Levetiracetam/ Sodium Chloride (Keppra Iv/NS) 107.5 ml @ 420 mls/hr DAILY IVPB Last administered on 08/15/16 09:17; Admin Dose 420 MLS/HR; Start 08/08/16 at 09:00 Sodium Bicarbonate (Sodium Bicarbonate Tab) 650 mg Q8 PO Last administered on 05:21; Admin Dose 650 MG; Start 08/08/16 at 14:00 Insulin Aspart (Novolog Insulin Pen) NOVOLOG *MODERATE* ALGORI... Q4 SC Last administered on 08/16/16 09:08; Admin Dose 8 UNIT; Start 08/11/16 at 13:00 Eye Lubricant (Artificial Tears Oph) 2 drop TID BOTH EYES Last administered on 08/16/16 09:00; Admin Dose 2 DROP; Start 08/13/16 at 09:00 Amiodarone HCl (Cordarone) 200 mg BID NGT Last administered on 08/16/16 09:01 ; Admin Dose 200 MG; Start 08/15/16 at 21:00 Metoprolol Tartrate (Lopressor) 50 mg BID NGT Last administered on 08/16/16 09 :01; Admin Dose 50 MG; Start 08/15/16 at 21:00 Warfarin Sodium (Coumadin) 5 mg DAILY@17 NGT Last administered on 08/15/16 17: 28; Admin Dose 5 MG; Start 08/15/16 at 17:00 JACKSON CUNNINGHAM Aug 16, 2016 09:21
[2016-08-16 09:50] LABS: INR 1.54; PROTIME 18.6 Sec (12.2-14.2); PT RATIO 1.5
[2016-08-16] MEDS: LEVETIRACETAM IV 750 MG in SOD CHLORIDE 0.9% 100 ML IVPB SCH (11:19)
--- NOTE | 2016-08-16 12:20 | CONS ---
Date/Time of Note Date/Time of Note DATE: 08/16/16 TIME: 12:13 Assessment/Plan Assessment/Plan Additional Assessment/Plan Assessment and recommendations; 1. Chronic respiratory failure, ventilator dependent due to anoxic brain injury. 2. Tracheal site bleed. 3. End-stage renal disease on hemodialysis. 4. Increasing leukocytosis indicative of underlying sepsis. However chest x- ray reviewed from yesterday is essentially unremarkable. 5. Diabetes with significant hyperglycemia. Blood sugars are in the high 200s to low 300s. 6. Stable seizure disorder. 7. Stable hypertension. 8. Paroxysmal A. fib, currently in sinus rhythm. Continue current ventilator settings. Add cefepime and vancomycin. Vancomycin will be adjusted by pharmacy. Discontinue Lantus insulin and start the patient on isophane insulin 20 units twice daily for better glycemic control. Because of tracheal bleed IV heparin has been stopped. Continue other supportive measures. I did have a detailed discussion with the patient's daughter at bedside and answered all her questions. Overall prognosis remains poor. Consultation Date/Type/Reason Admit Date/Time Jul 27, 2016 at 23:29 Initial Consult Date 07/28/16 Type of Consultation: Pulmonary 24 HR Interval Summary Free Text/Dictation Patient has developed bleeding around the tracheostomy site with clots of blood forming. However over the last hour and a half bleeding is subsiding. Because of severe anoxic encephalopathy patient remains completely unresponsive. Still ventilator dependent via tracheostomy. No seizure activity reported. Exam/Review of Systems Vital Signs Vitals Vital Signs Date Time Temp Pulse Resp B/P Pulse Ox O2 Delivery O2 Flow Rate FiO2 08/16/16 11:49 158/73 08/16/16 11:36 98.4 97 18 96 08/16/16 11:05 30 08/15/16 16:00 Mechanical Ventilator Intake and Output 08/15/16 08/15/16 08/16/16 15:00 23:00 07:00 Intake Total 706.5 ml 700 ml Output Total 200 ml Balance 506.5 ml 700 ml Exam H EENT examination; supple neck, tracheostomy in place with bleeding around it. He was a midsize reactive to light. No neck masses. No thyromegaly. Supple neck. Chest examination; clear to auscultation. S1-S2 audible, regular rhythm. Abdomen examination; soft, nondistended. No organomegaly. G-tube in place. With clean insertion site. Extremity examination; no peripheral edema. FACILITIES COORDINATOR examination; patient remains unresponsive. Ventilator settings are assist control of 16, tidal volume of 650, PEEP of 5,30 % FiO2. Results Result Diagram: 08/16/16 0350 08/16/16 0350 Results 24 hrs Laboratory Tests Test 08/15/16 12:19 08/15/16 17:12 08/15/16 20:03 08/15/16 20:35 Activated Partial Thromboplast Time 52.2 H 68.0 H Bedside Glucose 369 H 388 H Test 08/16/16 01:11 08/16/16 03:50 08/16/16 05:42 08/16/16 07:29 Bedside Glucose 314 H 296 H 293 H Activated Partial Thromboplast Time 67.5 H Anion Gap 28 H Basophils # 0.1 Basophils % 0.5 Blood Morphology Comment Blood Urea Nitrogen 92 H Calcium Level 8.7 Carbon Dioxide Level 24 Chloride Level 97 Creatinine 7.75 #H Eosinophils # 0.1 Eosinophils % 0.7 Glucose Level 287 H Hematocrit 32.2 L Hemoglobin 10.8 L Lymphocytes # 1.8 Lymphocytes % 8.6 L Magnesium Level 2.8 H Mean Corpuscular Hemoglobin 31.1 Mean Corpuscular Hemoglobin Concent 33.6 Mean Corpuscular Volume 92.5 Mean Platelet Volume 8.9 Monocytes # 1.2 H Monocytes % 6.0 Neutrophils # 17.2 H Neutrophils % 84.2 H Nucleated Red Blood Cells # 0.0 Nucleated Red Blood Cells % 0.0 Phosphorus Level 8.5 H Platelet Count 347 Potassium Level 5.1 Red Blood Count 3.48 L Red Cell Distribution Width 15.5 H Sodium Level 144 White Blood Count 20.5 H Test 08/16/16 09:20 08/16/16 11:01 Activated Partial Thromboplast Time > 180.0 *H 111.9 *H INR International Normalized Ratio 1.54 Prothrombin Time 18.6 #H Prothrombin Time Ratio 1.5 Medications Medications Current Medications Labetalol HCl (Labetalol) 10 mg Q6H PRN IV sbp > 160 Last administered on 18:33; Admin Dose 10 MG; Start 07/28/16 at 00:30 Acetaminophen (Tylenol Supp) 650 mg Q6H PRN [place] PAIN AND OR ELEVATED TEMP Last administered on 07/31/16 17:30; Admin Dose 650 MG; Start 07/28/16 at 08:30 Miscellaneous Information 1 ea NOTE XX ; Start 07/28/16 at 09:00 Glucose (Glutose) 15 gm Q15M PRN PO DECREASED GLUCOSE; Start 07/28/16 at 09:00 Glucose (Glutose) 22.5 gm Q15M PRN PO DECREASED GLUCOSE; Start 07/28/16 at 09: 00 Dextrose (D50w Syringe) 25 ml Q15M PRN IV DECREASED GLUCOSE; Start 07/28/16 at 09:00 Dextrose (D50w Syringe) 50 ml Q15M PRN IV DECREASED GLUCOSE; Start 07/28/16 at 09:00 Glucagon (Glucagen) 1 mg Q15M PRN IM DECREASED GLUCOSE; Start 07/28/16 at 09:00 Glucose (Glutose) 15 gm Q15M PRN BUCCAL DECREASED GLUCOSE; Start 07/28/16 at 09 :00 IV Flush (NS 10 ml) 10 ml PRN PRN IV IV PROTOCOL; Start 07/29/16 at 17:00 Morphine Sulfate (morphine) 2 mg Q4 PRN IV PAIN Last administered on 08/12/16 23:38; Admin Dose 2 MG; Start 07/31/16 at 12:00 Pantoprazole (Protonix Iv) 40 mg DAILY@06 IV Last administered on 08/16/16 05: 21; Admin Dose 40 MG; Start 08/02/16 at 06:00 Lorazepam (Ativan) 1 mg Q1H PRN IV SEIZURES Last administered on 08/11/16 12:25 ; Admin Dose 1 MG; Start 08/02/16 at 02:00 Acetaminophen (Tylenol Liquid) 650 mg Q4H PRN NGT PAIN AND OR ELEVATED TEMP Last administered on 08/16/16 04:39; Admin Dose 650 MG; Start 08/03/16 at 00:00 Insulin Glargine 20 unit 20 unit DAILY@08 SC Last administered on 08/16/16 07: 37; Admin Dose 20 UNIT; Start 08/03/16 at 12:00 Valproate Sodium/ Sodium Chloride (Depacon/NS) 57.5 ml @ 55 mls/hr Q6 IVPB Last administered on 08/16/16 05:20; Admin Dose 55 MLS/HR; Start 08/04/16 at 13: 00 Calcium Acetate (Phoslo) 667 mg Q6 NGT Last administered on 08/16/16 05:47; Admin Dose 667 MG; Start 08/05/16 at 08:30 Hydralazine HCl 10 mg 10 mg Q4H PRN IV ELEVATED SYSTOLIC BP Last administered on 08/15/16 12:05; Admin Dose 10 MG; Start 08/06/16 at 01:30 Levetiracetam/ Sodium Chloride (Keppra Iv/NS) 107.5 ml @ 420 mls/hr DAILY IVPB Last administered on 08/16/16 11:19; Admin Dose 420 MLS/HR; Start 08/08/16 at 09:00 Sodium Bicarbonate (Sodium Bicarbonate Tab) 650 mg Q8 PO Last administered on 05:21; Admin Dose 650 MG; Start 08/08/16 at 14:00 Insulin Aspart (Novolog Insulin Pen) NOVOLOG *MODERATE* ALGORI... Q4 SC Last administered on 08/16/16 09:08; Admin Dose 8 UNIT; Start 08/11/16 at 13:00 Eye Lubricant (Artificial Tears Oph) 2 drop TID BOTH EYES Last administered on 08/16/16 09:00; Admin Dose 2 DROP; Start 08/13/16 at 09:00 Amiodarone HCl (Cordarone) 200 mg BID NGT Last administered on 08/16/16 09:01 ; Admin Dose 200 MG; Start 08/15/16 at 21:00 Metoprolol Tartrate (Lopressor) 50 mg BID NGT Last administered on 08/16/16 09 :01; Admin Dose 50 MG; Start 08/15/16 at 21:00 AMOR RODRIGUES Aug 16, 2016 12:20
[2016-08-16] MEDS ORDERED: VANCOMYCIN IV PER PHARMACY XX SCH (12:30)
[2016-08-16] MEDS ORDERED: CEFEPIME 1GM/50 ML (PMX) 50 ML IVPB SCH (13:30)
--- NOTE | 2016-08-16 13:35 | CONS ---
Date/Time of Note Date/Time of Note DATE: 08/16/16 TIME: 13:25 Assessment/Plan Assessment/Plan Chief Complaint/Hosp Course #1 end-stage renal disease . He had hemodialysis today and will order again tomorrow . His BUN is lower today , CXR done yesterday does not show any pulmonary vascular congestion . #2 the patient is status post a cardiac arrest at home #3 altered level of consciousness, probable anoxic encephalopathy. #4 insulin-dependent diabetes mellitus #5 seizures #6 ventilator dependent respiratory failure , h/o COPD and pneumonia on CXR . #7 hyperphosphatemia , calcium acetate is being given . #8 new onset A fib , he was cardioverted and now is off heparin drip because of bleeding around his trachea .. Problems: Consultation Date/Type/Reason Admit Date/Time Jul 27, 2016 at 23:29 Initial Consult Date 07/28/16 Type of Consultation: Pulmonary 24 HR Interval Summary Free Text/Dictation He is now on the telemetry floor , 5W . He remains unresponsive on a ventilator . He is bleeding around his tracheostomy . Exam/Review of Systems Vital Signs Vitals Vital Signs Date Time Temp Pulse Resp B/P Pulse Ox O2 Delivery O2 Flow Rate FiO2 08/16/16 12:23 94 08/16/16 11:49 158/73 08/16/16 11:36 98.4 18 96 08/16/16 11:05 30 08/15/16 16:00 Mechanical Ventilator Intake and Output 08/15/16 08/15/16 08/16/16 15:00 23:00 07:00 Intake Total 706.5 ml 700 ml Output Total 200 ml Balance 506.5 ml 700 ml Exam Constitutional: non-verbal Respiratory: clear to auscultation, diminished breath sounds Cardiovascular: regular rate and rhythm Gastrointestinal: soft Musculoskeletal: nl extremities to inspection Results Result Diagram: 08/16/16 0350 08/16/16 0350 Results 24 hrs Laboratory Tests Test 08/15/16 17:12 08/15/16 20:03 08/15/16 20:35 08/16/16 01:11 Bedside Glucose 369 H 388 H 314 H Activated Partial Thromboplast Time 68.0 H Test 08/16/16 03:50 08/16/16 05:42 08/16/16 07:29 08/16/16 09:20 Activated Partial Thromboplast Time 67.5 H > 180.0 *H Anion Gap 28 H Basophils # 0.1 Basophils % 0.5 Blood Morphology Comment Blood Urea Nitrogen 92 H Calcium Level 8.7 Carbon Dioxide Level 24 Chloride Level 97 Creatinine 7.75 #H Eosinophils # 0.1 Eosinophils % 0.7 Glucose Level 287 H Hematocrit 32.2 L Hemoglobin 10.8 L Lymphocytes # 1.8 Lymphocytes % 8.6 L Magnesium Level 2.8 H Mean Corpuscular Hemoglobin 31.1 Mean Corpuscular Hemoglobin Concent 33.6 Mean Corpuscular Volume 92.5 Mean Platelet Volume 8.9 Monocytes # 1.2 H Monocytes % 6.0 Neutrophils # 17.2 H Neutrophils % 84.2 H Nucleated Red Blood Cells # 0.0 Nucleated Red Blood Cells % 0.0 Phosphorus Level 8.5 H Platelet Count 347 Potassium Level 5.1 Red Blood Count 3.48 L Red Cell Distribution Width 15.5 H Sodium Level 144 White Blood Count 20.5 H Bedside Glucose 296 H 293 H INR International Normalized Ratio 1.54 Prothrombin Time 18.6 #H Prothrombin Time Ratio 1.5 Test 08/16/16 11:01 Activated Partial Thromboplast Time 111.9 *H Medications Medications Current Medications Labetalol HCl (Labetalol) 10 mg Q6H PRN IV sbp > 160 Last administered on 18:33; Admin Dose 10 MG; Start 07/28/16 at 00:30 Acetaminophen (Tylenol Supp) 650 mg Q6H PRN [place] PAIN AND OR ELEVATED TEMP Last administered on 07/31/16 17:30; Admin Dose 650 MG; Start 07/28/16 at 08:30 Miscellaneous Information 1 ea NOTE XX ; Start 07/28/16 at 09:00 Glucose (Glutose) 15 gm Q15M PRN PO DECREASED GLUCOSE; Start 07/28/16 at 09:00 Glucose (Glutose) 22.5 gm Q15M PRN PO DECREASED GLUCOSE; Start 07/28/16 at 09: 00 Dextrose (D50w Syringe) 25 ml Q15M PRN IV DECREASED GLUCOSE; Start 07/28/16 at 09:00 Dextrose (D50w Syringe) 50 ml Q15M PRN IV DECREASED GLUCOSE; Start 07/28/16 at 09:00 Glucagon (Glucagen) 1 mg Q15M PRN IM DECREASED GLUCOSE; Start 07/28/16 at 09:00 Glucose (Glutose) 15 gm Q15M PRN BUCCAL DECREASED GLUCOSE; Start 07/28/16 at 09 :00 IV Flush (NS 10 ml) 10 ml PRN PRN IV IV PROTOCOL; Start 07/29/16 at 17:00 Morphine Sulfate (morphine) 2 mg Q4 PRN IV PAIN Last administered on 08/12/16 23:38; Admin Dose 2 MG; Start 07/31/16 at 12:00 Pantoprazole (Protonix Iv) 40 mg DAILY@06 IV Last administered on 08/16/16 05: 21; Admin Dose 40 MG; Start 08/02/16 at 06:00 Lorazepam (Ativan) 1 mg Q1H PRN IV SEIZURES Last administered on 08/11/16 12:25 ; Admin Dose 1 MG; Start 08/02/16 at 02:00 Acetaminophen 650 mg 650 mg Q4H PRN NGT PAIN AND OR ELEVATED TEMP Last administered on 08/16/16 04:39; Admin Dose 650 MG; Start 08/03/16 at 00:00 Valproate Sodium/ Sodium Chloride (Depacon/NS) 57.5 ml @ 55 mls/hr Q6 IVPB Last administered on 08/16/16 05:20; Admin Dose 55 MLS/HR; Start 08/04/16 at 13: 00 Calcium Acetate (Phoslo) 667 mg Q6 NGT Last administered on 08/16/16 12:33; Admin Dose 667 MG; Start 08/05/16 at 08:30 Hydralazine HCl 10 mg 10 mg Q4H PRN IV ELEVATED SYSTOLIC BP Last administered on 08/15/16 12:05; Admin Dose 10 MG; Start 08/06/16 at 01:30 Levetiracetam/ Sodium Chloride (Keppra Iv/NS) 107.5 ml @ 420 mls/hr DAILY IVPB Last administered on 08/16/16 11:19; Admin Dose 420 MLS/HR; Start 08/08/16 at 09:00 Sodium Bicarbonate (Sodium Bicarbonate Tab) 650 mg Q8 PO Last administered on 05:21; Admin Dose 650 MG; Start 08/08/16 at 14:00 Insulin Aspart (Novolog Insulin Pen) NOVOLOG *MODERATE* ALGORI... Q4 SC Last administered on 08/16/16 09:08; Admin Dose 8 UNIT; Start 08/11/16 at 13:00 Eye Lubricant (Artificial Tears Oph) 2 drop TID BOTH EYES Last administered on 08/16/16 12:33; Admin Dose 2 DROP; Start 08/13/16 at 09:00 Amiodarone HCl (Cordarone) 200 mg BID NGT Last administered on 08/16/16 09:01 ; Admin Dose 200 MG; Start 08/15/16 at 21:00 Metoprolol Tartrate 50 mg 50 mg BID NGT Last administered on 08/16/16 09:01; Admin Dose 50 MG; Start 08/15/16 at 21:00 Cefepime HCl (Maxipime 1gm/50 ml (Pmx)) 50 ml @ 100 mls/hr Q24H IVPB ; Start at 13:30 ROSCOE LANGE MD Aug 16, 2016 13:35
--- NOTE | 2016-08-16 14:49 | PN ---
Date/Time of Note Date/Time of Note DATE: 08/16/16 TIME: 14:47 Assessment/Plan VTE Prophylaxis VTE Prophylaxis Intervention: heparin Lines/Catheters Urinary Cath still in place: No Assessment/Plan Chief Complaint/Hosp Course 1. PEA s/p cardiac arrest , etiology PEA due to hypoxia -Neuro on the case - -pt is s/p Trach/PEG and is not following commands 2. ESRD on HD - on serial Hemodialysis due to high BUN- plan for HD as per Renal , catheter has been changed recently 3. SIRS with elevated white count and fever- R Lung opacity noted and may be Asp PNA -DC'd Abx as had been on Abx for 18 days, also having diarrhea but does not appear to be C Diff 4. VDRF - not able to wean off, s/p Tracheostomy now 5. Hypotension - cardiac shock vs septic shock - resolved 6. CHF - acute - diastolic vs systolic dysfunction - fluid to be removed via dialysis - monitor I/O's 7. Hx of hypertension - hold medications as patient is hypotensive 8. Type II DM-A1C at 7.3 -cont Lantus, NISS 9. GI ppx - protonix 10.. DVT ppx - heparin Dispo- CM to place in LTAC Problems: Subjective 24 Hr Interval Summary Subjective hx not possible: pt non-verbal Exam/Review of Systems Vital Signs Vitals Vital Signs Date Time Temp Pulse Resp B/P Pulse Ox O2 Delivery O2 Flow Rate FiO2 08/16/16 13:43 114 16 97 30 08/16/16 11:49 158/73 08/16/16 11:36 98.4 08/15/16 16:00 Mechanical Ventilator Intake and Output 08/15/16 08/15/16 08/16/16 15:00 23:00 07:00 Intake Total 706.5 ml 700 ml Output Total 200 ml Balance 506.5 ml 700 ml Exam Constitutional: non-verbal Respiratory: clear to auscultation Cardiovascular: regular rate and rhythm Gastrointestinal: soft, No distended Musculoskeletal: nl extremities to inspection Results Result Diagram: 08/16/16 0350 08/16/16 0350 Results 24 hrs Laboratory Tests Test 08/15/16 17:12 08/15/16 20:03 08/15/16 20:35 08/16/16 01:11 Bedside Glucose 369 H 388 H 314 H Activated Partial Thromboplast Time 68.0 H Test 08/16/16 03:50 08/16/16 05:42 08/16/16 07:29 08/16/16 09:20 Activated Partial Thromboplast Time 67.5 H > 180.0 *H Anion Gap 28 H Basophils # 0.1 Basophils % 0.5 Blood Morphology Comment Blood Urea Nitrogen 92 H Calcium Level 8.7 Carbon Dioxide Level 24 Chloride Level 97 Creatinine 7.75 #H Eosinophils # 0.1 Eosinophils % 0.7 Glucose Level 287 H Hematocrit 32.2 L Hemoglobin 10.8 L Lymphocytes # 1.8 Lymphocytes % 8.6 L Magnesium Level 2.8 H Mean Corpuscular Hemoglobin 31.1 Mean Corpuscular Hemoglobin Concent 33.6 Mean Corpuscular Volume 92.5 Mean Platelet Volume 8.9 Monocytes # 1.2 H Monocytes % 6.0 Neutrophils # 17.2 H Neutrophils % 84.2 H Nucleated Red Blood Cells # 0.0 Nucleated Red Blood Cells % 0.0 Phosphorus Level 8.5 H Platelet Count 347 Potassium Level 5.1 Red Blood Count 3.48 L Red Cell Distribution Width 15.5 H Sodium Level 144 White Blood Count 20.5 H Bedside Glucose 296 H 293 H INR International Normalized Ratio 1.54 Prothrombin Time 18.6 #H Prothrombin Time Ratio 1.5 Test 08/16/16 11:01 08/16/16 14:29 Activated Partial Thromboplast Time 111.9 *H Bedside Glucose 254 H Medications Medications Current Medications Labetalol HCl (Labetalol) 10 mg Q6H PRN IV sbp > 160 Last administered on 18:33; Admin Dose 10 MG; Start 07/28/16 at 00:30 Acetaminophen (Tylenol Supp) 650 mg Q6H PRN [place] PAIN AND OR ELEVATED TEMP Last administered on 07/31/16 17:30; Admin Dose 650 MG; Start 07/28/16 at 08:30 Miscellaneous Information 1 ea NOTE XX ; Start 07/28/16 at 09:00 Glucose (Glutose) 15 gm Q15M PRN PO DECREASED GLUCOSE; Start 07/28/16 at 09:00 Glucose (Glutose) 22.5 gm Q15M PRN PO DECREASED GLUCOSE; Start 07/28/16 at 09: 00 Dextrose (D50w Syringe) 25 ml Q15M PRN IV DECREASED GLUCOSE; Start 07/28/16 at 09:00 Dextrose (D50w Syringe) 50 ml Q15M PRN IV DECREASED GLUCOSE; Start 07/28/16 at 09:00 Glucagon (Glucagen) 1 mg Q15M PRN IM DECREASED GLUCOSE; Start 07/28/16 at 09:00 Glucose (Glutose) 15 gm Q15M PRN BUCCAL DECREASED GLUCOSE; Start 07/28/16 at 09 :00 IV Flush (NS 10 ml) 10 ml PRN PRN IV IV PROTOCOL; Start 07/29/16 at 17:00 Morphine Sulfate (morphine) 2 mg Q4 PRN IV PAIN Last administered on 08/12/16 23:38; Admin Dose 2 MG; Start 07/31/16 at 12:00 Pantoprazole (Protonix Iv) 40 mg DAILY@06 IV Last administered on 08/16/16 05: 21; Admin Dose 40 MG; Start 08/02/16 at 06:00 Lorazepam (Ativan) 1 mg Q1H PRN IV SEIZURES Last administered on 08/11/16 12:25 ; Admin Dose 1 MG; Start 08/02/16 at 02:00 Acetaminophen 650 mg 650 mg Q4H PRN NGT PAIN AND OR ELEVATED TEMP Last administered on 08/16/16 04:39; Admin Dose 650 MG; Start 08/03/16 at 00:00 Valproate Sodium/ Sodium Chloride (Depacon/NS) 57.5 ml @ 55 mls/hr Q6 IVPB Last administered on 08/16/16 13:51; Admin Dose 55 MLS/HR; Start 08/04/16 at 13: 00 Calcium Acetate (Phoslo) 667 mg Q6 NGT Last administered on 08/16/16 12:33; Admin Dose 667 MG; Start 08/05/16 at 08:30 Hydralazine HCl 10 mg 10 mg Q4H PRN IV ELEVATED SYSTOLIC BP Last administered on 08/15/16 12:05; Admin Dose 10 MG; Start 08/06/16 at 01:30 Levetiracetam/ Sodium Chloride (Keppra Iv/NS) 107.5 ml @ 420 mls/hr DAILY IVPB Last administered on 08/16/16 11:19; Admin Dose 420 MLS/HR; Start 08/08/16 at 09:00 Sodium Bicarbonate (Sodium Bicarbonate Tab) 650 mg Q8 PO Last administered on 05:21; Admin Dose 650 MG; Start 08/08/16 at 14:00 Insulin Aspart (Novolog Insulin Pen) NOVOLOG *MODERATE* ALGORI... Q4 SC Last administered on 08/16/16 14:36; Admin Dose 6 UNIT; Start 08/11/16 at 13:00 Eye Lubricant (Artificial Tears Oph) 2 drop TID BOTH EYES Last administered on 08/16/16 12:33; Admin Dose 2 DROP; Start 08/13/16 at 09:00 Amiodarone HCl (Cordarone) 200 mg BID NGT Last administered on 08/16/16 09:01 ; Admin Dose 200 MG; Start 08/15/16 at 21:00 Metoprolol Tartrate 50 mg 50 mg BID NGT Last administered on 08/16/16 09:01; Admin Dose 50 MG; Start 08/15/16 at 21:00 Vancomycin HCl (Vancocin) 250 ml @ 125 mls/hr Q96H IVPB ; Start 08/18/16 at 16: 00 BARNEY MCKEE Aug 16, 2016 14:49
--- NOTE | 2016-08-16 18:25 | PN ---
Date/Time of Note Date/Time of Note DATE: 08/16/16 TIME: 18:24 Assessment/Plan Lines/Catheters IV Catheter Type (from Nrsg): PICC Line Lorenz in Place (from Nrsg): No Assessment/Plan Chief Complaint/Hosp Course Respiratory Failure SP tracheostomy will continue trach care vent support Problems: Subjective 24 Hr Interval Summary Constitutional: improved Pain Control: mild Exam/Review of Systems Vital Signs Vitals Vital Signs Date Time Temp Pulse Resp B/P Pulse Ox O2 Delivery O2 Flow Rate FiO2 08/16/16 17:39 126 08/16/16 17:37 16 96 30 08/16/16 15:23 98.5 199/92 08/15/16 16:00 Mechanical Ventilator Intake and Output 08/15/16 08/15/16 08/16/16 15:00 23:00 07:00 Intake Total 706.5 ml 700 ml Output Total 200 ml Balance 506.5 ml 700 ml Exam Neck: non-tender, supple Respiratory: clear to auscultation, normal air movement Cardiovascular: nl pulses, regular rate and rhythm Results Result Diagram: 08/16/16 0350 08/16/16 0350 ARMEN BADILLO MD Aug 16, 2016 18:25
[2016-08-16] MEDS: NPH, HUMAN INSULIN ISOPHANE 3ML VIAL SC SCH (21:16)
[2016-08-17] VITALS (30 sets, daily range): BP systolic 109–160; BP diastolic 55–84; PULSE 89–131; RESP 16–19
[2016-08-17] MEDS: ALBUTEROL HFA 8 GM INHALER INH SCH ×6 (00:56→22:20)
[2016-08-17] MEDS: IPRATROPIUM (HFA) 12.9 GM INHALER INH SCH ×6 (00:56→22:19)
[2016-08-17] MEDS: INSULIN ASPART [NOVOLOG] 3 ML PEN SC SCH ×6 (01:52→21:24)
[2016-08-17] MEDS: VALPROATE INJ 750 MG in SOD CHLORIDE 0.9% 50 ML IVPB SCH ×4 (05:21→23:16)
[2016-08-17] MEDS: PANTOPRAZOLE 40 MG INJ IV SCH (05:24)
[2016-08-17] MEDS: NA BICARBONATE 650 MG TAB PO SCH ×3 (05:24→21:11)
[2016-08-17] MEDS: CALCIUM ACETATE 667 MG CAP NGT SCH ×4 (05:25→23:16)
[2016-08-17 07:06] LABS: BASOPHIL # 0.1 10^3/ul (0.0-0.1); BASOPHILS % 0.3 % (0.0-2.0); EOSINOPHILS # 0.1 10^3/ul (0.0-0.5); EOSINOPHILS % 0.6 % (0.0-7.0); HEMATOCRIT 32.6 % (42.0-52.0); HEMOGLOBIN 11.1 g/dl (14.0-18.0); LYMPHOCYTES # 1.9 10^3/ul (0.8-2.9); LYMPHOCYTES % 9.1 % (15.0-51.0); MEAN CORPUSCULAR HEMOGLOBIN 31.7 pg (29.0-33.0); MEAN CORPUSCULAR HGB CONC 34.1 g/dl (32.0-37.0); MONOCYTE # 1.6 10^3/ul (0.3-0.9); MONOCYTES % 7.4 % (0.0-11.0); NEUTROPHIL # 17.7 10^3/ul (1.6-7.5); NEUTROPHILS % 82.6 % (39.0-77.0); PLATELET COUNT 363 10^3/UL (140-440); RED CELL DISTRIBUTION WIDTH 15.2 % (11.5-14.5); UNCORRECTED WBC 21.4 10^3/ul (4.8-10.8); WHITE BLOOD COUNT 21.4 10^3/ul (4.8-10.8)
[2016-08-17 07:11] LABS: POTASSIUM 5.4 mmol/L (3.5-5.1)
[2016-08-17 07:12] LABS: CONDITION 1; LH ANALYZER COMMENTS 1
[2016-08-17 07:15] LABS: CALCIUM 8.9 mg/dl (8.4-10.2)
[2016-08-17 07:24] LABS: CREATININE 7.4 mg/dl (0.61-1.24)
--- NOTE | 2016-08-17 08:41 | CONS ---
Date/Time of Note Date/Time of Note DATE: 08/17/16 TIME: 08:37 Assessment/Plan Assessment/Plan Chief Complaint/Hosp Course #1 end-stage renal disease . He has had hemodialysis the last 2 days . His BUN is still high , CXR done yesterday does not show any pulmonary vascular congestion . I will order hemodialysis today . #2 the patient is status post a cardiac arrest at home #3 altered level of consciousness, probable anoxic encephalopathy. #4 insulin-dependent diabetes mellitus #5 seizures #6 ventilator dependent respiratory failure , h/o COPD and pneumonia on CXR . #7 hyperphosphatemia , calcium acetate is being given . #8 new onset A fib , he was cardioverted and now is off heparin drip because of bleeding around his trachea .. #9 dietary consult ordered Problems: Consultation Date/Type/Reason Admit Date/Time Jul 27, 2016 at 23:29 Initial Consult Date 07/28/16 Type of Consultation: Pulmonary 24 HR Interval Summary Free Text/Dictation he is unresponsive on a ventilator . Exam/Review of Systems Vital Signs Vitals Vital Signs Date Time Temp Pulse Resp B/P Pulse Ox O2 Delivery O2 Flow Rate FiO2 08/17/16 08:29 131 08/17/16 07:33 99.8 18 140/65 98 08/17/16 05:41 30 08/15/16 16:00 Mechanical Ventilator Intake and Output 08/16/16 08/16/16 08/17/16 15:00 23:00 07:00 Intake Total 475 ml 1255 ml 750 ml Output Total 2700 ml Balance 475 ml -1445 ml 750 ml Exam Constitutional: non-verbal Head: normocephalic Respiratory: clear to auscultation, diminished breath sounds Cardiovascular: regular rate and rhythm Gastrointestinal: soft Musculoskeletal: nl extremities to inspection Results Result Diagram: 08/17/16 0605 08/17/16 0605 Results 24 hrs Laboratory Tests Test 08/16/16 09:20 08/16/16 11:01 08/16/16 14:29 08/16/16 16:59 Activated Partial Thromboplast Time > 180.0 *H 111.9 *H INR International Normalized Ratio 1.54 Prothrombin Time 18.6 #H Prothrombin Time Ratio 1.5 Bedside Glucose 254 H 355 H Test 08/16/16 20:24 08/17/16 01:42 08/17/16 05:32 08/17/16 06:05 Bedside Glucose 376 H 366 H 345 H Anion Gap 32 H Basophils # 0.1 Basophils % 0.3 Blood Morphology Comment Blood Urea Nitrogen 97 H Calcium Level 8.9 Carbon Dioxide Level 22 Chloride Level 92 L Creatinine 7.40 H Eosinophils # 0.1 Eosinophils % 0.6 Glucose Level 352 H Hematocrit 32.6 L Hemoglobin 11.1 L Lymphocytes # 1.9 Lymphocytes % 9.1 L Mean Corpuscular Hemoglobin 31.7 Mean Corpuscular Hemoglobin Concent 34.1 Mean Corpuscular Volume 93.0 Mean Platelet Volume 9.0 Monocytes # 1.6 H Monocytes % 7.4 Neutrophils # 17.7 H Neutrophils % 82.6 H Nucleated Red Blood Cells # 0.0 Nucleated Red Blood Cells % 0.0 Platelet Count 363 Potassium Level 5.4 H Red Blood Count 3.50 L Red Cell Distribution Width 15.2 H Sodium Level 141 White Blood Count 21.4 H Test 08/17/16 06:23 08/17/16 07:24 Bedside Glucose 87 383 H Medications Medications Current Medications Labetalol HCl (Labetalol) 10 mg Q6H PRN IV sbp > 160 Last administered on 18:33; Admin Dose 10 MG; Start 07/28/16 at 00:30 Acetaminophen (Tylenol Supp) 650 mg Q6H PRN [place] PAIN AND OR ELEVATED TEMP Last administered on 07/31/16 17:30; Admin Dose 650 MG; Start 07/28/16 at 08:30 Miscellaneous Information 1 ea NOTE XX ; Start 07/28/16 at 09:00 Glucose (Glutose) 15 gm Q15M PRN PO DECREASED GLUCOSE; Start 07/28/16 at 09:00 Glucose (Glutose) 22.5 gm Q15M PRN PO DECREASED GLUCOSE; Start 07/28/16 at 09: 00 Dextrose (D50w Syringe) 25 ml Q15M PRN IV DECREASED GLUCOSE; Start 07/28/16 at 09:00 Dextrose (D50w Syringe) 50 ml Q15M PRN IV DECREASED GLUCOSE; Start 07/28/16 at 09:00 Glucagon (Glucagen) 1 mg Q15M PRN IM DECREASED GLUCOSE; Start 07/28/16 at 09:00 Glucose (Glutose) 15 gm Q15M PRN BUCCAL DECREASED GLUCOSE; Start 07/28/16 at 09 :00 IV Flush (NS 10 ml) 10 ml PRN PRN IV IV PROTOCOL; Start 07/29/16 at 17:00 Morphine Sulfate (morphine) 2 mg Q4 PRN IV PAIN Last administered on 08/12/16 23:38; Admin Dose 2 MG; Start 07/31/16 at 12:00 Pantoprazole (Protonix Iv) 40 mg DAILY@06 IV Last administered on 08/17/16 05: 24; Admin Dose 40 MG; Start 08/02/16 at 06:00 Lorazepam (Ativan) 1 mg Q1H PRN IV SEIZURES Last administered on 08/11/16 12:25 ; Admin Dose 1 MG; Start 08/02/16 at 02:00 Acetaminophen 650 mg 650 mg Q4H PRN NGT PAIN AND OR ELEVATED TEMP Last administered on 08/16/16 19:53; Admin Dose 650 MG; Start 08/03/16 at 00:00 Valproate Sodium/ Sodium Chloride (Depacon/NS) 57.5 ml @ 55 mls/hr Q6 IVPB Last administered on 08/17/16 05:21; Admin Dose 55 MLS/HR; Start 08/04/16 at 13: 00 Calcium Acetate (Phoslo) 667 mg Q6 NGT Last administered on 08/17/16 05:25; Admin Dose 667 MG; Start 08/05/16 at 08:30 Hydralazine HCl 10 mg 10 mg Q4H PRN IV ELEVATED SYSTOLIC BP Last administered on 08/15/16 12:05; Admin Dose 10 MG; Start 08/06/16 at 01:30 Levetiracetam/ Sodium Chloride (Keppra Iv/NS) 107.5 ml @ 420 mls/hr DAILY IVPB Last administered on 08/16/16 11:19; Admin Dose 420 MLS/HR; Start 08/08/16 at 09:00 Sodium Bicarbonate (Sodium Bicarbonate Tab) 650 mg Q8 PO Last administered on 05:24; Admin Dose 650 MG; Start 08/08/16 at 14:00 Insulin Aspart (Novolog Insulin Pen) NOVOLOG *MODERATE* ALGORI... Q4 SC Last administered on 08/17/16 05:36; Admin Dose 10 UNIT; Start 08/11/16 at 13:00 Eye Lubricant (Artificial Tears Oph) 2 drop TID BOTH EYES Last administered on 08/16/16 20:28; Admin Dose 2 DROP; Start 08/13/16 at 09:00 Amiodarone HCl (Cordarone) 200 mg BID NGT Last administered on 08/16/16 20:21 ; Admin Dose 200 MG; Start 08/15/16 at 21:00 Metoprolol Tartrate (Lopressor) 50 mg BID NGT Last administered on 08/16/16 20 :22; Admin Dose 50 MG; Start 08/15/16 at 21:00 ROSCOE LANGE MD Aug 17, 2016 08:41
[2016-08-17] MEDS: BUDESONIDE (NEB) 0.5MG/2ML AMP HHN SCH ×2 (08:48→22:19)
[2016-08-17] MEDS: ARFORMOTEROL TARTRATE 15MCG/2 ML AMP NEB SCH ×2 (08:48→20:00)
[2016-08-17] MEDS: LEVETIRACETAM IV 750 MG in SOD CHLORIDE 0.9% 100 ML IVPB SCH (09:08)
[2016-08-17] MEDS: ARTIFICIAL TEARS 15 ML OPH BOTH EYES SCH ×3 (09:08→21:14)
[2016-08-17] MEDS: METOPROLOL 50 MG TAB NGT SCH ×2 (09:09→21:13)
[2016-08-17] MEDS: AMIODARONE 200 MG TAB NGT SCH (09:09)
[2016-08-17] MEDS: NPH, HUMAN INSULIN ISOPHANE 3ML VIAL SC SCH ×2 (09:11→21:25)
[2016-08-17 10:02] LABS: INR 1.27; PT RATIO 1.3
--- NOTE | 2016-08-17 12:58 | CONS ---
Date/Time of Note Date/Time of Note DATE: 08/17/16 TIME: 12:55 Assessment/Plan Assessment/Plan Additional Assessment/Plan Ventilator settings are AC of 16, tidal volume 650, PEEP of 5, 30% FiO2. Assessment and recommendations; patient admitted with sepsis. Currently on vancomycin and cefepime. 2. Chronic renal failure on hemodialysis. 3. Rectal bleed which was noted yesterday morning without any interval progression. Currently no sign of any active bleeding. 5. Stable seizure disorder. 6. Diabetes. 7. Stable seizure disorder. 7. Hypertension which is fairly stable. Continue current supportive care. Prognosis is poor. Consultation Date/Type/Reason Admit Date/Time Jul 27, 2016 at 23:29 Initial Consult Date 07/28/16 Type of Consultation: Pulmonary 24 HR Interval Summary Free Text/Dictation Patient condition remains unchanged. Remains essentially unresponsive to any stimuli. No further tracheal bleed noted. General examination; 28 male, on ventilator via tracheostomy currently in no distress. Remains unresponsive. Exam/Review of Systems Vital Signs Vitals Vital Signs Date Time Temp Pulse Resp B/P Pulse Ox O2 Delivery O2 Flow Rate FiO2 08/17/16 12:16 110 08/17/16 11:30 19 97 30 08/17/16 07:33 99.8 140/65 08/15/16 16:00 Mechanical Ventilator Intake and Output 08/16/16 08/16/16 08/17/16 15:00 23:00 07:00 Intake Total 475 ml 1255 ml 750 ml Output Total 2700 ml Balance 475 ml -1445 ml 750 ml Exam HEENT examination; supple neck, no JVD. Tracheostomy in place without any bleed noted. No thick neck masses. No thyromegaly. Chest examination; diminished but clear breath sounds. S1-S2 audible, regular rhythm. No murmurs. Abdomen examination; soft, slightly protuberant. G-tube in place. No organomegaly. Extremity examination; no peripheral edema. [employer] examination; patient is unresponsive. Results Result Diagram: 08/17/16 0608/17/16 0605 Results 24 hrs Laboratory Tests Test 08/16/16 14:29 08/16/16 16:59 08/16/16 20:24 08/17/16 01:42 Bedside Glucose 254 H 355 H 376 H 366 H Test 08/17/16 05:32 08/17/16 06:05 08/17/16 06:23 08/17/16 07:24 Bedside Glucose 345 H 87 383 H Anion Gap 32 H Basophils # 0.1 Basophils % 0.3 Blood Morphology Comment Blood Urea Nitrogen 97 H Calcium Level 8.9 Carbon Dioxide Level 22 Chloride Level 92 L Creatinine 7.40 H Eosinophils # 0.1 Eosinophils % 0.6 Glucose Level 352 H Hematocrit 32.6 L Hemoglobin 11.1 L Lymphocytes # 1.9 Lymphocytes % 9.1 L Mean Corpuscular Hemoglobin 31.7 Mean Corpuscular Hemoglobin Concent 34.1 Mean Corpuscular Volume 93.0 Mean Platelet Volume 9.0 Monocytes # 1.6 H Monocytes % 7.4 Neutrophils # 17.7 H Neutrophils % 82.6 H Nucleated Red Blood Cells # 0.0 Nucleated Red Blood Cells % 0.0 Platelet Count 363 Potassium Level 5.4 H Red Blood Count 3.50 L Red Cell Distribution Width 15.2 H Sodium Level 141 White Blood Count 21.4 H Test 08/17/16 09:00 08/17/16 11:31 08/17/16 12:46 INR International Normalized Ratio 1.27 Prothrombin Time 16.0 H Prothrombin Time Ratio 1.3 Bedside Glucose 396 H 308 H Medications Medications Current Medications Labetalol HCl (Labetalol) 10 mg Q6H PRN IV sbp > 160 Last administered on 18:33; Admin Dose 10 MG; Start 07/28/16 at 00:30 Acetaminophen (Tylenol Supp) 650 mg Q6H PRN [place] PAIN AND OR ELEVATED TEMP Last administered on 07/31/16 17:30; Admin Dose 650 MG; Start 07/28/16 at 08:30 Miscellaneous Information 1 ea NOTE XX ; Start 07/28/16 at 09:00 Glucose (Glutose) 15 gm Q15M PRN PO DECREASED GLUCOSE; Start 07/28/16 at 09:00 Glucose (Glutose) 22.5 gm Q15M PRN PO DECREASED GLUCOSE; Start 07/28/16 at 09: 00 Dextrose (D50w Syringe) 25 ml Q15M PRN IV DECREASED GLUCOSE; Start 07/28/16 at 09:00 Dextrose (D50w Syringe) 50 ml Q15M PRN IV DECREASED GLUCOSE; Start 07/28/16 at 09:00 Glucagon (Glucagen) 1 mg Q15M PRN IM DECREASED GLUCOSE; Start 07/28/16 at 09:00 Glucose (Glutose) 15 gm Q15M PRN BUCCAL DECREASED GLUCOSE; Start 07/28/16 at 09 :00 IV Flush (NS 10 ml) 10 ml PRN PRN IV IV PROTOCOL; Start 07/29/16 at 17:00 Morphine Sulfate (morphine) 2 mg Q4 PRN IV PAIN Last administered on 08/12/16 23:38; Admin Dose 2 MG; Start 07/31/16 at 12:00 Pantoprazole (Protonix Iv) 40 mg DAILY@06 IV Last administered on 08/17/16 05: 24; Admin Dose 40 MG; Start 08/02/16 at 06:00 Lorazepam (Ativan) 1 mg Q1H PRN IV SEIZURES Last administered on 08/11/16 12:25 ; Admin Dose 1 MG; Start 08/02/16 at 02:00 Acetaminophen 650 mg 650 mg Q4H PRN NGT PAIN AND OR ELEVATED TEMP Last administered on 08/16/16 19:53; Admin Dose 650 MG; Start 08/03/16 at 00:00 Valproate Sodium/ Sodium Chloride (Depacon/NS) 57.5 ml @ 55 mls/hr Q6 IVPB Last administered on 08/17/16 12:43; Admin Dose 55 MLS/HR; Start 08/04/16 at 13: 00 Calcium Acetate (Phoslo) 667 mg Q6 NGT Last administered on 08/17/16 12:43; Admin Dose 667 MG; Start 08/05/16 at 08:30 Hydralazine HCl 10 mg 10 mg Q4H PRN IV ELEVATED SYSTOLIC BP Last administered on 08/15/16 12:05; Admin Dose 10 MG; Start 08/06/16 at 01:30 Levetiracetam/ Sodium Chloride (Keppra Iv/NS) 107.5 ml @ 420 mls/hr DAILY IVPB Last administered on 08/17/16 09:08; Admin Dose 420 MLS/HR; Start 08/08/16 at 09:00 Sodium Bicarbonate (Sodium Bicarbonate Tab) 650 mg Q8 PO Last administered on 05:24; Admin Dose 650 MG; Start 08/08/16 at 14:00 Insulin Aspart (Novolog Insulin Pen) NOVOLOG *MODERATE* ALGORI... Q4 SC Last administered on 08/17/16 09:14; Admin Dose 12 UNIT; Start 08/11/16 at 13:00 Eye Lubricant (Artificial Tears Oph) 2 drop TID BOTH EYES Last administered on 08/17/16 12:43; Admin Dose 2 DROP; Start 08/13/16 at 09:00 Amiodarone HCl (Cordarone) 200 mg BID NGT Last administered on 08/17/16 09:09 ; Admin Dose 200 MG; Start 08/15/16 at 21:00 Metoprolol Tartrate (Lopressor) 50 mg BID NGT Last administered on 08/17/16 09 :09; Admin Dose 50 MG; Start 08/15/16 at 21:00 AMOR RODRIGUES Aug 17, 2016 12:58
--- NOTE | 2016-08-17 15:39 | CONS ---
Date/Time of Note Date/Time of Note DATE: 08/17/16 TIME: 15:37 Assessment/Plan Assessment/Plan Chief Complaint/Hosp Course Paroxysmal afib with RVR: converted to afib with RVR (rates up to 200) on 08/11 uncontrolled with meds and requiring cardioversion at 150 J for unstable hemodynamics. Remains in sinus. Should be on 1 month of anticoagulation post cardioversion. halfway anticoagulation may not be necessary as CHADSVASC is 1. Anticoagulation stopped due to trach site bleeding Fevers: ?infectious source (CXR clear, c dif negative, no UOP) vs central fevers. Improving Cardiac arrest: PEA by history and likely respiratory/hypoxic mediated. Cardiac cath without significant CAD, EF preserved. Anoxic brain injury: EEG suggestive of brain but breathing over vent and passed apnea trial. Now off sedation for several days. Opens eyes at times but no purposeful movements. Acute on chronic diastolic heart failure: EF preserved. Receiving HD Acute respiratory failure: s/p trach ESRD on HD Seizures HTN -switch to amiodarone 200mg daily -anticoagulation held due to trach site bleeding. If remains stable consider starting coumadin without heparin bridge -metoprolol 50 mg BID -HD per nephrology Problems: Consultation Date/Type/Reason Admit Date/Time Jul 27, 2016 at 23:29 Initial Consult Date 07/28/16 Type of Consultation: Cardiology 24 HR Interval Summary Free Text/Dictation No o/n events. Still fevers but less frequent Exam/Review of Systems Vital Signs Vitals Vital Signs Date Time Temp Pulse Resp B/P Pulse Ox O2 Delivery O2 Flow Rate FiO2 08/17/16 14:00 90 08/17/16 14:00 22 08/17/16 13:28 98 30 08/17/16 07:33 99.8 140/65 08/15/16 16:00 Mechanical Ventilator Intake and Output 08/16/16 08/16/16 08/17/16 15:00 23:00 07:00 Intake Total 475 ml 1255 ml 750 ml Output Total 2700 ml Balance 475 ml -1445 ml 750 ml Exam Constitutional: No alert Head: atraumatic, normocephalic Neck: No jvd Respiratory: diminished breath sounds Gastrointestinal: non-tender, soft Neurological: No nl mental status Skin: No rash or lesions Results Result Diagram: 2/15/17 0605 2/15/17 0605 Results 24 hrs Laboratory Tests Test 08/16/16 16:59 08/16/16 20:24 08/17/16 01:42 08/17/16 05:32 Bedside Glucose 355 H 376 H 366 H 345 H Test 08/17/16 06:05 08/17/16 06:23 08/17/16 07:24 08/17/16 09:00 Anion Gap 32 H Basophils # 0.1 Basophils % 0.3 Blood Morphology Comment Blood Urea Nitrogen 97 H Calcium Level 8.9 Carbon Dioxide Level 22 Chloride Level 92 L Creatinine 7.40 H Eosinophils # 0.1 Eosinophils % 0.6 Glucose Level 352 H Hematocrit 32.6 L Hemoglobin 11.1 L Lymphocytes # 1.9 Lymphocytes % 9.1 L Mean Corpuscular Hemoglobin 31.7 Mean Corpuscular Hemoglobin Concent 34.1 Mean Corpuscular Volume 93.0 Mean Platelet Volume 9.0 Monocytes # 1.6 H Monocytes % 7.4 Neutrophils # 17.7 H Neutrophils % 82.6 H Nucleated Red Blood Cells # 0.0 Nucleated Red Blood Cells % 0.0 Platelet Count 363 Potassium Level 5.4 H Red Blood Count 3.50 L Red Cell Distribution Width 15.2 H Sodium Level 141 White Blood Count 21.4 H Bedside Glucose 87 383 H INR International Normalized Ratio 1.27 Prothrombin Time 16.0 H Prothrombin Time Ratio 1.3 Test 08/17/16 11:31 08/17/16 12:46 Bedside Glucose 396 H 308 H Medications Medications Current Medications Labetalol HCl (Labetalol) 10 mg Q6H PRN IV sbp > 160 Last administered on 18:33; Admin Dose 10 MG; Start 07/28/16 at 00:30 Acetaminophen (Tylenol Supp) 650 mg Q6H PRN SC PAIN AND OR ELEVATED TEMP Last administered on 07/31/16 17:30; Admin Dose 650 MG; Start 07/28/16 at 08:30 Miscellaneous Information 1 ea NOTE XX ; Start 07/28/16 at 09:00 Glucose (Glutose) 15 gm Q15M PRN PO DECREASED GLUCOSE; Start 07/28/16 at 09:00 Glucose (Glutose) 22.5 gm Q15M PRN PO DECREASED GLUCOSE; Start 07/28/16 at 09: 00 Dextrose (D50w Syringe) 25 ml Q15M PRN IV DECREASED GLUCOSE; Start 07/28/16 at 09:00 Dextrose (D50w Syringe) 50 ml Q15M PRN IV DECREASED GLUCOSE; Start 07/28/16 at 09:00 Glucagon (Glucagen) 1 mg Q15M PRN IM DECREASED GLUCOSE; Start 07/28/16 at 09:00 Glucose (Glutose) 15 gm Q15M PRN BUCCAL DECREASED GLUCOSE; Start 07/28/16 at 09 :00 IV Flush (NS 10 ml) 10 ml PRN PRN IV IV PROTOCOL; Start 07/29/16 at 17:00 Morphine Sulfate (morphine) 2 mg Q4 PRN IV PAIN Last administered on 08/12/16 23:38; Admin Dose 2 MG; Start 07/31/16 at 12:00 Pantoprazole (Protonix Iv) 40 mg DAILY@06 IV Last administered on 08/17/16 05: 24; Admin Dose 40 MG; Start 08/02/16 at 06:00 Lorazepam (Ativan) 1 mg Q1H PRN IV SEIZURES Last administered on 08/11/16 12:25 ; Admin Dose 1 MG; Start 08/02/16 at 02:00 Acetaminophen 650 mg 650 mg Q4H PRN NGT PAIN AND OR ELEVATED TEMP Last administered on 08/16/16 19:53; Admin Dose 650 MG; Start 08/03/16 at 00:00 Valproate Sodium/ Sodium Chloride (Depacon/NS) 57.5 ml @ 55 mls/hr Q6 IVPB Last administered on 08/17/16 12:43; Admin Dose 55 MLS/HR; Start 08/04/16 at 13: 00 Calcium Acetate (Phoslo) 667 mg Q6 NGT Last administered on 08/17/16 12:43; Admin Dose 667 MG; Start 08/05/16 at 08:30 Hydralazine HCl 10 mg 10 mg Q4H PRN IV ELEVATED SYSTOLIC BP Last administered on 08/15/16 12:05; Admin Dose 10 MG; Start 08/06/16 at 01:30 Levetiracetam/ Sodium Chloride (Keppra Iv/NS) 107.5 ml @ 420 mls/hr DAILY IVPB Last administered on 08/17/16 09:08; Admin Dose 420 MLS/HR; Start 08/08/16 at 09:00 Sodium Bicarbonate (Sodium Bicarbonate Tab) 650 mg Q8 PO Last administered on 13:13; Admin Dose 650 MG; Start 08/08/16 at 14:00 Insulin Aspart (Novolog Insulin Pen) NOVOLOG *MODERATE* ALGORI... Q4 SC Last administered on 08/17/16 13:25; Admin Dose 10 UNIT; Start 08/11/16 at 13:00 Eye Lubricant (Artificial Tears Oph) 2 drop TID BOTH EYES Last administered on 08/17/16 12:43; Admin Dose 2 DROP; Start 08/13/16 at 09:00 Metoprolol Tartrate (Lopressor) 50 mg BID NGT Last administered on 08/17/16 09 :09; Admin Dose 50 MG; Start 08/15/16 at 21:00 Amiodarone HCl (Cordarone) 200 mg DAILY NGT ; Start 08/18/16 at 09:00 JACKSON CUNNINGHAM Aug 17, 2016 15:39
--- NOTE | 2016-08-17 16:22 | PN ---
Date/Time of Note Date/Time of Note DATE: 08/17/16 TIME: 16:21 Assessment/Plan VTE Prophylaxis VTE Prophylaxis Intervention: heparin Lines/Catheters Urinary Cath still in place: No Assessment/Plan Chief Complaint/Hosp Course 1. PEA s/p cardiac arrest , etiology PEA due to hypoxia -Neuro on the case - -pt is s/p Trach/PEG and is not following commands 2. ESRD on HD - on serial Hemodialysis due to high BUN- plan for HD as per Renal , catheter has been changed recently 3. SIRS with elevated white count and fever- R Lung opacity noted and may be Asp PNA -continue to hold Abx as had been on Abx for 18 days, also having diarrhea but does not appear to be C Diff 4. VDRF - not able to wean off, s/p Tracheostomy now 5. Hypotension - cardiac shock vs septic shock - resolved 6. CHF - acute - diastolic vs systolic dysfunction - fluid to be removed via dialysis - monitor I/O's 7. Hx of hypertension - hold medications as patient is hypotensive 8. Type II DM-A1C at 7.3 -cont Lantus, NISS 9. GI ppx - protonix 10.. DVT ppx - heparin Dispo- CM to place in LTAC Problems: Subjective 24 Hr Interval Summary Subjective hx not possible: pt non-verbal Exam/Review of Systems Vital Signs Vitals Vital Signs Date Time Temp Pulse Resp B/P Pulse Ox O2 Delivery O2 Flow Rate FiO2 08/17/16 16:14 108 08/17/16 16:03 99.0 19 127/65 100 08/17/16 13:28 30 08/15/16 16:00 Mechanical Ventilator Intake and Output 08/16/16 08/16/16 08/17/16 15:00 23:00 07:00 Intake Total 475 ml 1255 ml 750 ml Output Total 2700 ml Balance 475 ml -1445 ml 750 ml Exam Constitutional: non-verbal Respiratory: clear to auscultation Cardiovascular: regular rate and rhythm Gastrointestinal: soft, No distended Musculoskeletal: nl extremities to inspection Results Result Diagram: 08/17/16 0605 08/17/16 0605 Results 24 hrs Laboratory Tests Test 08/16/16 16:59 08/16/16 20:24 08/17/16 01:42 08/17/16 05:32 Bedside Glucose 355 H 376 H 366 H 345 H Test 08/17/16 06:05 08/17/16 06:23 08/17/16 07:24 08/17/16 09:00 Anion Gap 32 H Basophils # 0.1 Basophils % 0.3 Blood Morphology Comment Blood Urea Nitrogen 97 H Calcium Level 8.9 Carbon Dioxide Level 22 Chloride Level 92 L Creatinine 7.40 H Eosinophils # 0.1 Eosinophils % 0.6 Glucose Level 352 H Hematocrit 32.6 L Hemoglobin 11.1 L Lymphocytes # 1.9 Lymphocytes % 9.1 L Mean Corpuscular Hemoglobin 31.7 Mean Corpuscular Hemoglobin Concent 34.1 Mean Corpuscular Volume 93.0 Mean Platelet Volume 9.0 Monocytes # 1.6 H Monocytes % 7.4 Neutrophils # 17.7 H Neutrophils % 82.6 H Nucleated Red Blood Cells # 0.0 Nucleated Red Blood Cells % 0.0 Platelet Count 363 Potassium Level 5.4 H Red Blood Count 3.50 L Red Cell Distribution Width 15.2 H Sodium Level 141 White Blood Count 21.4 H Bedside Glucose 87 383 H INR International Normalized Ratio 1.27 Prothrombin Time 16.0 H Prothrombin Time Ratio 1.3 Test 08/17/16 11:31 08/17/16 12:46 Bedside Glucose 396 H 308 H Medications Medications Current Medications Labetalol HCl (Labetalol) 10 mg Q6H PRN IV sbp > 160 Last administered on 18:33; Admin Dose 10 MG; Start 07/28/16 at 00:30 Acetaminophen (Tylenol Supp) 650 mg Q6H PRN ID PAIN AND OR ELEVATED TEMP Last administered on 07/31/16 17:30; Admin Dose 650 MG; Start 07/28/16 at 08:30 Miscellaneous Information 1 ea NOTE XX ; Start 07/28/16 at 09:00 Glucose (Glutose) 15 gm Q15M PRN PO DECREASED GLUCOSE; Start 07/28/16 at 09:00 Glucose (Glutose) 22.5 gm Q15M PRN PO DECREASED GLUCOSE; Start 07/28/16 at 09: 00 Dextrose (D50w Syringe) 25 ml Q15M PRN IV DECREASED GLUCOSE; Start 07/28/16 at 09:00 Dextrose (D50w Syringe) 50 ml Q15M PRN IV DECREASED GLUCOSE; Start 07/28/16 at 09:00 Glucagon (Glucagen) 1 mg Q15M PRN IM DECREASED GLUCOSE; Start 07/28/16 at 09:00 Glucose (Glutose) 15 gm Q15M PRN BUCCAL DECREASED GLUCOSE; Start 07/28/16 at 09 :00 IV Flush (NS 10 ml) 10 ml PRN PRN IV IV PROTOCOL; Start 07/29/16 at 17:00 Morphine Sulfate (morphine) 2 mg Q4 PRN IV PAIN Last administered on 08/12/16 23:38; Admin Dose 2 MG; Start 07/31/16 at 12:00 Pantoprazole (Protonix Iv) 40 mg DAILY@06 IV Last administered on 08/17/16 05: 24; Admin Dose 40 MG; Start 08/02/16 at 06:00 Lorazepam (Ativan) 1 mg Q1H PRN IV SEIZURES Last administered on 08/11/16 12:25 ; Admin Dose 1 MG; Start 08/02/16 at 02:00 Acetaminophen 650 mg 650 mg Q4H PRN NGT PAIN AND OR ELEVATED TEMP Last administered on 08/16/16 19:53; Admin Dose 650 MG; Start 08/03/16 at 00:00 Valproate Sodium/ Sodium Chloride (Depacon/NS) 57.5 ml @ 55 mls/hr Q6 IVPB Last administered on 08/17/16 12:43; Admin Dose 55 MLS/HR; Start 08/04/16 at 13: 00 Calcium Acetate (Phoslo) 667 mg Q6 NGT Last administered on 08/17/16 12:43; Admin Dose 667 MG; Start 08/05/16 at 08:30 Hydralazine HCl 10 mg 10 mg Q4H PRN IV ELEVATED SYSTOLIC BP Last administered on 08/15/16 12:05; Admin Dose 10 MG; Start 08/06/16 at 01:30 Levetiracetam/ Sodium Chloride (Keppra Iv/NS) 107.5 ml @ 420 mls/hr DAILY IVPB Last administered on 08/17/16 09:08; Admin Dose 420 MLS/HR; Start 08/08/16 at 09:00 Sodium Bicarbonate (Sodium Bicarbonate Tab) 650 mg Q8 PO Last administered on 13:13; Admin Dose 650 MG; Start 08/08/16 at 14:00 Insulin Aspart (Novolog Insulin Pen) NOVOLOG *MODERATE* ALGORI... Q4 SC Last administered on 08/17/16 13:25; Admin Dose 10 UNIT; Start 08/11/16 at 13:00 Eye Lubricant (Artificial Tears Oph) 2 drop TID BOTH EYES Last administered on 08/17/16 12:43; Admin Dose 2 DROP; Start 08/13/16 at 09:00 Metoprolol Tartrate (Lopressor) 50 mg BID NGT Last administered on 08/17/16 09 :09; Admin Dose 50 MG; Start 08/15/16 at 21:00 Amiodarone HCl (Cordarone) 200 mg DAILY NGT ; Start 08/18/16 at 09:00 BARNEY MCKEE Aug 17, 2016 16:22
--- NOTE | 2016-08-17 19:20 | PN ---
Date/Time of Note Date/Time of Note DATE: 08/17/16 TIME: 19:20 Assessment/Plan Lines/Catheters IV Catheter Type (from Nrsg): PICC Line Lorenz in Place (from Nrsg): No Assessment/Plan Chief Complaint/Hosp Course Respiratory Failure SP tracheostomy will continue trach care vent support Problems: Subjective 24 Hr Interval Summary Constitutional: improved Pain Control: mild Exam/Review of Systems Vital Signs Vitals Vital Signs Date Time Temp Pulse Resp B/P Pulse Ox O2 Delivery O2 Flow Rate FiO2 08/17/16 17:07 110 16 98 30 08/17/16 16:03 99.0 127/65 08/15/16 16:00 Mechanical Ventilator Intake and Output 08/16/16 08/16/16 08/17/16 15:00 23:00 07:00 Intake Total 475 ml 1255 ml 750 ml Output Total 2700 ml Balance 475 ml -1445 ml 750 ml Exam ENMT: mucosa pink and moist, nl external ears & nose, nl lips & teeth, nl nasal mucosa & septum Neck: non-tender, supple Respiratory: clear to auscultation, normal air movement Cardiovascular: nl pulses, regular rate and rhythm Results Result Diagram: 08/17/1660408/17/16604 ARMEN BADILLO MD Aug 17, 2016 19:20
[2016-08-17] MEDS: ACETAMINOPHEN 650MG/20.3ML CUP NGT PRN (21:11)
[2016-08-18] VITALS (25 sets, daily range): BP systolic 82–163; BP diastolic 57–82; PULSE 91–106; RESP 16–19
[2016-08-18] MEDS: ALBUTEROL HFA 8 GM INHALER INH SCH ×6 (01:07→20:14)
[2016-08-18] MEDS: IPRATROPIUM (HFA) 12.9 GM INHALER INH SCH ×6 (01:07→20:14)
[2016-08-18] MEDS: INSULIN ASPART [NOVOLOG] 3 ML PEN SC SCH ×5 (01:41→20:29)
[2016-08-18] MEDS: ACETAMINOPHEN 650MG/20.3ML CUP NGT PRN ×3 (05:45→20:18)
[2016-08-18] MEDS: VALPROATE INJ 750 MG in SOD CHLORIDE 0.9% 50 ML IVPB SCH ×3 (05:46→17:04)
[2016-08-18] MEDS: NA BICARBONATE 650 MG TAB PO SCH ×3 (05:46→20:18)
[2016-08-18] MEDS: CALCIUM ACETATE 667 MG CAP NGT SCH ×3 (05:46→17:04)
[2016-08-18] MEDS: LANSOPRAZOLE 30 MG CAP NGT SCH (05:46)
[2016-08-18] MEDS: NPH, HUMAN INSULIN ISOPHANE 3ML VIAL SC SCH ×2 (06:09→16:54)
[2016-08-18 07:29] LABS: BASOPHILS % 0.3 % (0.0-2.0); EOSINOPHILS # 0.2 10^3/ul (0.0-0.5); EOSINOPHILS % 1.5 % (0.0-7.0); HEMATOCRIT 32.2 % (42.0-52.0); HEMOGLOBIN 10.9 g/dl (14.0-18.0); LYMPHOCYTES # 1.4 10^3/ul (0.8-2.9); LYMPHOCYTES % 8.4 % (15.0-51.0); MEAN CORPUSCULAR HEMOGLOBIN 31.4 pg (29.0-33.0); MEAN CORPUSCULAR HGB CONC 33.8 g/dl (32.0-37.0); MEAN CORPUSCULAR VOLUME 92.9 fl (82.0-101.0); MEAN PLATELET VOLUME 8.6 fl (7.4-10.4); MONOCYTE # 1.3 10^3/ul (0.3-0.9); MONOCYTES % 7.6 % (0.0-11.0); NEUTROPHIL # 13.7 10^3/ul (1.6-7.5); NEUTROPHILS % 82.2 % (39.0-77.0); PLATELET COUNT 309 10^3/UL (140-440); RED BLOOD COUNT 3.46 10^6/ul (4.70-6.10); RED CELL DISTRIBUTION WIDTH 15.1 % (11.5-14.5); UNCORRECTED WBC 16.7 10^3/ul (4.8-10.8); WHITE BLOOD COUNT 16.7 10^3/ul (4.8-10.8)
[2016-08-18 07:35] LABS: CONDITION 1; LH ANALYZER COMMENTS 1
[2016-08-18 07:46] LABS: ALBUMIN 3.6 g/dl (3.3-4.9)
[2016-08-18 07:47] LABS: POTASSIUM 4.7 mmol/L (3.5-5.1)
[2016-08-18 07:49] LABS: ALBUMIN/GLOBULIN RATIO 0.85; CALCIUM 8.8 mg/dl (8.4-10.2); TOTAL PROTEIN 7.8 g/dl (6.1-8.1)
[2016-08-18 07:57] LABS: CREATININE 6.56 mg/dl (0.61-1.24)
[2016-08-18] MEDS: BUDESONIDE (NEB) 0.5MG/2ML AMP HHN SCH ×2 (08:30→20:23)
--- NOTE | 2016-08-18 08:59 | CONS ---
Date/Time of Note Date/Time of Note DATE: 08/18/16 TIME: 08:54 Assessment/Plan Assessment/Plan Chief Complaint/Hosp Course #1 end-stage renal disease . He had hemodialysis yesterday , will order hemodialysis for tomorrow . #2 the patient is status post a cardiac arrest at home #3 altered level of consciousness, probable anoxic encephalopathy. #4 insulin-dependent diabetes mellitus #5 seizures #6 ventilator dependent respiratory failure , h/o COPD and pneumonia on CXR . #7 hyperphosphatemia , calcium acetate is being given . #8 new onset A fib , he was cardioverted and now is off heparin drip because of bleeding around his trachea .. #9 dietary consult ordered , they recommend that tube feeding be decreased to 40 ml/hr . I will adjust rate . Problems: Consultation Date/Type/Reason Admit Date/Time Jul 27, 2016 at 23:29 Initial Consult Date 07/28/16 Type of Consultation: Cardiology 24 HR Interval Summary Free Text/Dictation he is unresponsive , on ventilator Exam/Review of Systems Vital Signs Vitals Vital Signs Date Time Temp Pulse Resp B/P Pulse Ox O2 Delivery O2 Flow Rate FiO2 08/18/16 08:06 101.1 103 18 82/62 98 08/18/16 06:17 30 08/18/16 06:15 Mechanical Ventilator Intake and Output 08/17/16 08/17/16 08/18/16 15:00 23:00 07:00 Intake Total 500 ml 700 ml 807.5 ml Output Total 2500 ml 150 ml Balance -2000 ml 700 ml 657.5 ml Exam Constitutional: non-verbal Respiratory: clear to auscultation, diminished breath sounds Cardiovascular: regular rate and rhythm Gastrointestinal: soft Musculoskeletal: nl extremities to inspection Results Result Diagram: 08/18/16 0610 08/18/16 0610 Results 24 hrs Laboratory Tests Test 08/17/16 09:00 08/17/16 11:31 08/17/16 12:46 08/17/16 17:28 INR International Normalized Ratio 1.27 Prothrombin Time 16.0 H Prothrombin Time Ratio 1.3 Bedside Glucose 396 H 308 H 294 H Test 08/17/16 21:09 08/18/16 01:32 08/18/16 05:53 08/18/16 06:10 Bedside Glucose 312 H 284 H 308 H Alanine Aminotransferase (ALT/SGPT) 35 Albumin 3.6 Albumin/Globulin Ratio 0.85 Alkaline Phosphatase 89 Anion Gap 30 H Aspartate Amino Transf (AST/SGOT) 64 H Basophils # 0.0 Basophils % 0.3 Blood Morphology Comment Blood Urea Nitrogen 93 H Calcium Level 8.8 Carbon Dioxide Level 21 Chloride Level 96 L Creatinine 6.56 H Direct Bilirubin 0.00 Eosinophils # 0.2 Eosinophils % 1.5 Globulin 4.20 H Glucose Level 330 H Hematocrit 32.2 L Hemoglobin 10.9 L Indirect Bilirubin 0.0 Lymphocytes # 1.4 Lymphocytes % 8.4 L Mean Corpuscular Hemoglobin 31.4 Mean Corpuscular Hemoglobin Concent 33.8 Mean Corpuscular Volume 92.9 Mean Platelet Volume 8.6 Monocytes # 1.3 H Monocytes % 7.6 Neutrophils # 13.7 H Neutrophils % 82.2 H Nucleated Red Blood Cells # 0.0 Nucleated Red Blood Cells % 0.0 Platelet Count 309 Potassium Level 4.7 Red Blood Count 3.46 L Red Cell Distribution Width 15.1 H Sodium Level 142 Total Bilirubin 0.0 L Total Protein 7.8 White Blood Count 16.7 #H Medications Medications Current Medications Labetalol HCl (Labetalol) 10 mg Q6H PRN IV sbp > 160 Last administered on 18:33; Admin Dose 10 MG; Start 07/28/16 at 00:30 Acetaminophen (Tylenol Supp) 650 mg Q6H PRN [place] PAIN AND OR ELEVATED TEMP Last administered on 07/31/16 17:30; Admin Dose 650 MG; Start 07/28/16 at 08:30 Miscellaneous Information 1 ea NOTE XX ; Start 07/28/16 at 09:00 Glucose (Glutose) 15 gm Q15M PRN PO DECREASED GLUCOSE; Start 07/28/16 at 09:00 Glucose (Glutose) 22.5 gm Q15M PRN PO DECREASED GLUCOSE; Start 07/28/16 at 09: 00 Dextrose (D50w Syringe) 25 ml Q15M PRN IV DECREASED GLUCOSE; Start 07/28/16 at 09:00 Dextrose (D50w Syringe) 50 ml Q15M PRN IV DECREASED GLUCOSE; Start 07/28/16 at 09:00 Glucagon (Glucagen) 1 mg Q15M PRN IM DECREASED GLUCOSE; Start 07/28/16 at 09:00 Glucose (Glutose) 15 gm Q15M PRN BUCCAL DECREASED GLUCOSE; Start 07/28/16 at 09 :00 IV Flush (NS 10 ml) 10 ml PRN PRN IV IV PROTOCOL; Start 07/29/16 at 17:00 Morphine Sulfate (morphine) 2 mg Q4 PRN IV PAIN Last administered on 08/12/16 23:38; Admin Dose 2 MG; Start 07/31/16 at 12:00 Lorazepam (Ativan) 1 mg Q1H PRN IV SEIZURES Last administered on 08/11/16 12:25 ; Admin Dose 1 MG; Start 08/02/16 at 02:00 Acetaminophen 650 mg 650 mg Q4H PRN NGT PAIN AND OR ELEVATED TEMP Last administered on 08/18/16 05:45; Admin Dose 650 MG; Start 08/03/16 at 00:00 Valproate Sodium/ Sodium Chloride (Depacon/NS) 57.5 ml @ 55 mls/hr Q6 IVPB Last administered on 08/18/16 05:46; Admin Dose 55 MLS/HR; Start 08/04/16 at 13: 00 Calcium Acetate (Phoslo) 667 mg Q6 NGT Last administered on 08/18/16 05:46; Admin Dose 667 MG; Start 08/05/16 at 08:30 Hydralazine HCl 10 mg 10 mg Q4H PRN IV ELEVATED SYSTOLIC BP Last administered on 08/15/16 12:05; Admin Dose 10 MG; Start 08/06/16 at 01:30 Levetiracetam/ Sodium Chloride (Keppra Iv/NS) 107.5 ml @ 420 mls/hr DAILY IVPB Last administered on 08/17/16 09:08; Admin Dose 420 MLS/HR; Start 08/08/16 at 09:00 Sodium Bicarbonate (Sodium Bicarbonate Tab) 650 mg Q8 PO Last administered on 05:46; Admin Dose 650 MG; Start 08/08/16 at 14:00 Insulin Aspart (Novolog Insulin Pen) NOVOLOG *MODERATE* ALGORI... Q4 SC Last administered on 08/18/16 05:59; Admin Dose 10 UNIT; Start 08/11/16 at 13:00 Eye Lubricant (Artificial Tears Oph) 2 drop TID BOTH EYES Last administered on 08/17/16 21:14; Admin Dose 2 DROP; Start 08/13/16 at 09:00 Metoprolol Tartrate (Lopressor) 50 mg BID NGT Last administered on 08/17/16 21 :13; Admin Dose 50 MG; Start 08/15/16 at 21:00 Amiodarone HCl (Cordarone) 200 mg DAILY NGT ; Start 08/18/16 at 09:00 Lansoprazole (Prevacid) 30 mg DAILY@06 NGT Last administered on 08/18/16 05:46 ; Admin Dose 30 MG; Start 08/18/16 at 06:00 Insulin Human NPH (Humulin N) 26 unit Q8 SC ; Start 08/18/16 at 09:00 ROSCOE LANGE MD Aug 18, 2016 08:58
[2016-08-18] MEDS ORDERED: NPH, HUMAN INSULIN ISOPHANE 3ML VIAL SC SCH ×2 (09:00→16:00)
[2016-08-18] MEDS: ARFORMOTEROL TARTRATE 15MCG/2 ML AMP NEB SCH ×2 (09:00→20:23)
--- NOTE | 2016-08-18 09:28 | CONS ---
Date/Time of Note Date/Time of Note DATE: 08/18/16 TIME: 09:22 Assessment/Plan Assessment/Plan Problems: (1) Type 2 diabetes mellitus with hypertension and end stage renal disease on dialysis Status: Chronic Comment: His blood sugar control has degraded. I will adjust his insulins around to have that match his tube feedings a little bit better but I am somewhat concerned with the fever change in pattern that he might have an occult infection. He has had recent chest x-rays that are unremarkable. Will check a urine culture and blood cultures just to be on the safe side. (2) Anoxic encephalopathy Status: Acute Comment: I discussed with the patient's daughter his current status. She understands that the likelihood of meaningful recovery is nil. She reports that she and other members of the family are extremely guilt ridden about his pulmonary status premorbid. 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 He has a significant anoxic encephalopathy post event and has not shown significant improvement. He is ventilator dependent and feeding tube dependent. Premorbid he had end-stage renal disease and was dialysis dependent. He is on continuous tube feedings. In the recent past he has had some changes in the way his temperature is been spiking although he has been having fevers for more some of his hospitalization which were likely central fevers Subjective hx not possible: pt non-verbal Psychological: nl mood/affect, no complaints Past Medical History Asthmatic COPD; tobacco abuse history; and anoxic brain injury roughly 3-4 weeks ago; morbid obesity Medical History: diabetes, hypertension, renal disease (ESRD on HD) Past Surgical History Status post tracheostomy and placement of a PEG tube during this admission Past Surgical Hx: noncontributory Family History Significant Family History: diabetes, hypertension Social History Alcohol Use: none Smoking Status: Current every day smoker (1 ppd x 40 years) Drug Use: none Exam/Review of Systems Vital Signs Vitals Vital Signs Date Time Temp Pulse Resp B/P Pulse Ox O2 Delivery O2 Flow Rate FiO2 08/18/16 08:59 103 08/18/16 08:06 101.1 18 82/62 98 08/18/16 06:17 30 08/18/16 06:15 Mechanical Ventilator Intake and Output 08/17/16 08/17/16 08/18/16 15:00 23:00 07:00 Intake Total 500 ml 700 ml 807.5 ml Output Total 2500 ml 150 ml Balance -2000 ml 700 ml 657.5 ml Exam Minimally responsive gentleman. He responds minimally to very noxious stimuli is otherwise nonresponsive Eyes: PERRL, nl conjunctiva, nl lids, nl sclera ENMT: nl external ears & nose, nl lips & teeth, nl nasal mucosa & septum Respiratory: clear to auscultation, normal air movement (Please note this is an improvement versus 2 weeks ago) Cardiovascular: nl pulses, regular rate and rhythm Gastrointestinal: nl liver, spleen, non-tender, soft Results Result Diagram: 08/18/16 0610 08/18/16 0610 Results 24 hrs Laboratory Tests Test 08/17/16 11:31 08/17/16 12:46 08/17/16 17:28 08/17/16 21:09 Bedside Glucose 396 H 308 H 294 H 312 H Test 08/18/16 01:32 08/18/16 05:53 08/18/16 06:10 Bedside Glucose 284 H 308 H Alanine Aminotransferase (ALT/SGPT) 35 Albumin 3.6 Albumin/Globulin Ratio 0.85 Alkaline Phosphatase 89 Anion Gap 30 H Aspartate Amino Transf (AST/SGOT) 64 H Basophils # 0.0 Basophils % 0.3 Blood Morphology Comment Blood Urea Nitrogen 93 H Calcium Level 8.8 Carbon Dioxide Level 21 Chloride Level 96 L Creatinine 6.56 H Direct Bilirubin 0.00 Eosinophils # 0.2 Eosinophils % 1.5 Globulin 4.20 H Glucose Level 330 H Hematocrit 32.2 L Hemoglobin 10.9 L Indirect Bilirubin 0.0 Lymphocytes # 1.4 Lymphocytes % 8.4 L Mean Corpuscular Hemoglobin 31.4 Mean Corpuscular Hemoglobin Concent 33.8 Mean Corpuscular Volume 92.9 Mean Platelet Volume 8.6 Monocytes # 1.3 H Monocytes % 7.6 Neutrophils # 13.7 H Neutrophils % 82.2 H Nucleated Red Blood Cells # 0.0 Nucleated Red Blood Cells % 0.0 Platelet Count 309 Potassium Level 4.7 Red Blood Count 3.46 L Red Cell Distribution Width 15.1 H Sodium Level 142 Total Bilirubin 0.0 L Total Protein 7.8 White Blood Count 16.7 #H Medications Medications Current Medications Labetalol HCl (Labetalol) 10 mg Q6H PRN IV sbp > 160 Last administered on 18:33; Admin Dose 10 MG; Start 07/28/16 at 00:30 Acetaminophen (Tylenol Supp) 650 mg Q6H PRN [place] PAIN AND OR ELEVATED TEMP Last administered on 07/31/16 17:30; Admin Dose 650 MG; Start 07/28/16 at 08:30 Miscellaneous Information 1 ea NOTE XX ; Start 07/28/16 at 09:00 Glucose (Glutose) 15 gm Q15M PRN PO DECREASED GLUCOSE; Start 07/28/16 at 09:00 Glucose (Glutose) 22.5 gm Q15M PRN PO DECREASED GLUCOSE; Start 07/28/16 at 09: 00 Dextrose (D50w Syringe) 25 ml Q15M PRN IV DECREASED GLUCOSE; Start 07/28/16 at 09:00 Dextrose (D50w Syringe) 50 ml Q15M PRN IV DECREASED GLUCOSE; Start 07/28/16 at 09:00 Glucagon (Glucagen) 1 mg Q15M PRN IM DECREASED GLUCOSE; Start 07/28/16 at 09:00 Glucose (Glutose) 15 gm Q15M PRN BUCCAL DECREASED GLUCOSE; Start 07/28/16 at 09 :00 IV Flush (NS 10 ml) 10 ml PRN PRN IV IV PROTOCOL; Start 07/29/16 at 17:00 Morphine Sulfate (morphine) 2 mg Q4 PRN IV PAIN Last administered on 08/12/16 23:38; Admin Dose 2 MG; Start 07/31/16 at 12:00 Lorazepam (Ativan) 1 mg Q1H PRN IV SEIZURES Last administered on 08/11/16 12:25 ; Admin Dose 1 MG; Start 08/02/16 at 02:00 Acetaminophen 650 mg 650 mg Q4H PRN NGT PAIN AND OR ELEVATED TEMP Last administered on 08/18/16 05:45; Admin Dose 650 MG; Start 08/03/16 at 00:00 Valproate Sodium/ Sodium Chloride (Depacon/NS) 57.5 ml @ 55 mls/hr Q6 IVPB Last administered on 08/18/16 05:46; Admin Dose 55 MLS/HR; Start 08/04/16 at 13: 00 Calcium Acetate (Phoslo) 667 mg Q6 NGT Last administered on 08/18/16 05:46; Admin Dose 667 MG; Start 08/05/16 at 08:30 Hydralazine HCl 10 mg 10 mg Q4H PRN IV ELEVATED SYSTOLIC BP Last administered on 08/15/16 12:05; Admin Dose 10 MG; Start 08/06/16 at 01:30 Levetiracetam/ Sodium Chloride (Keppra Iv/NS) 107.5 ml @ 420 mls/hr DAILY IVPB Last administered on 08/17/16 09:08; Admin Dose 420 MLS/HR; Start 08/08/16 at 09:00 Sodium Bicarbonate (Sodium Bicarbonate Tab) 650 mg Q8 PO Last administered on 05:46; Admin Dose 650 MG; Start 08/08/16 at 14:00 Insulin Aspart (Novolog Insulin Pen) NOVOLOG *MODERATE* ALGORI... Q4 SC Last administered on 08/18/16 05:59; Admin Dose 10 UNIT; Start 08/11/16 at 13:00 Eye Lubricant (Artificial Tears Oph) 2 drop TID BOTH EYES Last administered on 08/17/16 21:14; Admin Dose 2 DROP; Start 08/13/16 at 09:00 Metoprolol Tartrate (Lopressor) 50 mg BID NGT Last administered on 08/17/16 21 :13; Admin Dose 50 MG; Start 08/15/16 at 21:00 Amiodarone HCl (Cordarone) 200 mg DAILY NGT ; Start 08/18/16 at 09:00 Lansoprazole (Prevacid) 30 mg DAILY@06 NGT Last administered on 08/18/16 05:46 ; Admin Dose 30 MG; Start 08/18/16 at 06:00 Insulin Human NPH (Humulin N) 26 unit Q8 SC ; Start 08/18/16 at 09:00 LOPEZ LOW MD Aug 18, 2016 09:28
[2016-08-18] MEDS: LEVETIRACETAM IV 750 MG in SOD CHLORIDE 0.9% 100 ML IVPB SCH (09:53)
[2016-08-18] MEDS: METOPROLOL 50 MG TAB NGT SCH ×2 (10:04→20:18)
[2016-08-18] MEDS: AMIODARONE 200 MG TAB NGT SCH (10:04)
[2016-08-18] MEDS: ARTIFICIAL TEARS 15 ML OPH BOTH EYES SCH ×3 (10:14→20:19)
--- NOTE | 2016-08-18 11:51 | CONS ---
Date/Time of Note Date/Time of Note DATE: 08/18/16 TIME: 11:49 Assessment/Plan Assessment/Plan Chief Complaint/Hosp Course Paroxysmal afib with RVR: converted to afib with RVR (rates up to 200) on 08/11 uncontrolled with meds and requiring cardioversion at 150 J for unstable hemodynamics. Remains in sinus. Should be on 1 month of anticoagulation post cardioversion. detention anticoagulation may not be necessary as CHADSVASC is 1. Anticoagulation stopped due to trach site bleeding Fevers: ?infectious source (CXR clear, c dif negative, no UOP) vs central fevers Cardiac arrest: PEA by history and likely respiratory/hypoxic mediated. Cardiac cath without significant CAD, EF preserved. Anoxic brain injury: EEG suggestive of brain but breathing over vent and passed apnea trial. Now off sedation for several days. Opens eyes at times but no purposeful movements. Acute on chronic diastolic heart failure: EF preserved. Receiving HD Acute respiratory failure: s/p trach ESRD on HD Seizures HTN -amiodarone 200mg daily -anticoagulation held due to trach site bleeding. If remains stable consider starting coumadin without heparin bridge -metoprolol 50 mg BID -HD per nephrology Problems: Consultation Date/Type/Reason Admit Date/Time Jul 27, 2016 at 23:29 Initial Consult Date 07/28/16 Type of Consultation: Cardiology Referring Provider: BARNEY MCKEE 24 HR Interval Summary Free Text/Dictation Still with fevers to 101. No neurologic recovery Exam/Review of Systems Vital Signs Vitals Vital Signs Date Time Temp Pulse Resp B/P Pulse Ox O2 Delivery O2 Flow Rate FiO2 08/18/16 08:59 103 08/18/16 08:29 16 99 30 08/18/16 08:06 101.1 82/62 08/18/16 06:15 Mechanical Ventilator Intake and Output 08/17/16 08/17/16 08/18/16 15:00 23:00 07:00 Intake Total 500 ml 700 ml 807.5 ml Output Total 2500 ml 150 ml Balance -2000 ml 700 ml 657.5 ml Results Result Diagram: 08/18/16 0610 08/18/16 0610 Results 24 hrs Laboratory Tests Test 08/17/16 12:46 08/17/16 17:28 08/17/16 21:09 08/18/16 01:32 Bedside Glucose 308 H 294 H 312 H 284 H Test 08/18/16 05:53 08/18/16 06:10 08/18/16 10:12 Bedside Glucose 308 H 331 H Alanine Aminotransferase (ALT/SGPT) 35 Albumin 3.6 Albumin/Globulin Ratio 0.85 Alkaline Phosphatase 89 Anion Gap 30 H Aspartate Amino Transf (AST/SGOT) 64 H Basophils # 0.0 Basophils % 0.3 Blood Morphology Comment Blood Urea Nitrogen 93 H Calcium Level 8.8 Carbon Dioxide Level 21 Chloride Level 96 L Creatinine 6.56 H Direct Bilirubin 0.00 Eosinophils # 0.2 Eosinophils % 1.5 Globulin 4.20 H Glucose Level 330 H Hematocrit 32.2 L Hemoglobin 10.9 L Indirect Bilirubin 0.0 Lymphocytes # 1.4 Lymphocytes % 8.4 L Mean Corpuscular Hemoglobin 31.4 Mean Corpuscular Hemoglobin Concent 33.8 Mean Corpuscular Volume 92.9 Mean Platelet Volume 8.6 Monocytes # 1.3 H Monocytes % 7.6 Neutrophils # 13.7 H Neutrophils % 82.2 H Nucleated Red Blood Cells # 0.0 Nucleated Red Blood Cells % 0.0 Platelet Count 309 Potassium Level 4.7 Red Blood Count 3.46 L Red Cell Distribution Width 15.1 H Sodium Level 142 Total Bilirubin 0.0 L Total Protein 7.8 White Blood Count 16.7 #H Medications Medications Current Medications Labetalol HCl (Labetalol) 10 mg Q6H PRN IV sbp > 160 Last administered on 18:33; Admin Dose 10 MG; Start 07/28/16 at 00:30 Acetaminophen (Tylenol Supp) 650 mg Q6H PRN [place] PAIN AND OR ELEVATED TEMP Last administered on 07/31/16 17:30; Admin Dose 650 MG; Start 07/28/16 at 08:30 Miscellaneous Information 1 ea NOTE XX ; Start 07/28/16 at 09:00 Glucose (Glutose) 15 gm Q15M PRN PO DECREASED GLUCOSE; Start 07/28/16 at 09:00 Glucose (Glutose) 22.5 gm Q15M PRN PO DECREASED GLUCOSE; Start 07/28/16 at 09: 00 Dextrose (D50w Syringe) 25 ml Q15M PRN IV DECREASED GLUCOSE; Start 07/28/16 at 09:00 Dextrose (D50w Syringe) 50 ml Q15M PRN IV DECREASED GLUCOSE; Start 07/28/16 at 09:00 Glucagon (Glucagen) 1 mg Q15M PRN IM DECREASED GLUCOSE; Start 07/28/16 at 09:00 Glucose (Glutose) 15 gm Q15M PRN BUCCAL DECREASED GLUCOSE; Start 07/28/16 at 09 :00 IV Flush (NS 10 ml) 10 ml PRN PRN IV IV PROTOCOL; Start 07/29/16 at 17:00 Morphine Sulfate (morphine) 2 mg Q4 PRN IV PAIN Last administered on 08/12/16 23:38; Admin Dose 2 MG; Start 07/31/16 at 12:00 Lorazepam (Ativan) 1 mg Q1H PRN IV SEIZURES Last administered on 08/11/16 12:25 ; Admin Dose 1 MG; Start 08/02/16 at 02:00 Acetaminophen 650 mg 650 mg Q4H PRN NGT PAIN AND OR ELEVATED TEMP Last administered on 08/18/16 05:45; Admin Dose 650 MG; Start 08/03/16 at 00:00 Valproate Sodium/ Sodium Chloride (Depacon/NS) 57.5 ml @ 55 mls/hr Q6 IVPB Last administered on 08/18/16 05:46; Admin Dose 55 MLS/HR; Start 08/04/16 at 13: 00 Calcium Acetate (Phoslo) 667 mg Q6 NGT Last administered on 08/18/16 05:46; Admin Dose 667 MG; Start 08/05/16 at 08:30 Hydralazine HCl 10 mg 10 mg Q4H PRN IV ELEVATED SYSTOLIC BP Last administered on 08/15/16 12:05; Admin Dose 10 MG; Start 08/06/16 at 01:30 Levetiracetam/ Sodium Chloride (Keppra Iv/NS) 107.5 ml @ 420 mls/hr DAILY IVPB Last administered on 08/18/16 09:53; Admin Dose 420 MLS/HR; Start 08/08/16 at 09:00 Sodium Bicarbonate (Sodium Bicarbonate Tab) 650 mg Q8 PO Last administered on 05:46; Admin Dose 650 MG; Start 08/08/16 at 14:00 Insulin Aspart (Novolog Insulin Pen) NOVOLOG *MODERATE* ALGORI... Q4 SC Last administered on 08/18/16 10:19; Admin Dose 10 UNIT; Start 08/11/16 at 13:00 Eye Lubricant (Artificial Tears Oph) 2 drop TID BOTH EYES Last administered on 08/18/16 10:14; Admin Dose 2 DROP; Start 08/13/16 at 09:00 Metoprolol Tartrate (Lopressor) 50 mg BID NGT Last administered on 08/18/16 10 :04; Admin Dose 50 MG; Start 08/15/16 at 21:00 Amiodarone HCl (Cordarone) 200 mg DAILY NGT Last administered on 08/18/16 10: 04; Admin Dose 200 MG; Start 08/18/16 at 09:00 Lansoprazole (Prevacid) 30 mg DAILY@06 NGT Last administered on 08/18/16 05:46 ; Admin Dose 30 MG; Start 08/18/16 at 06:00 Insulin Human NPH (Humulin N) 26 unit Q8 SC Last administered on 08/18/16 10: 18; Admin Dose 26 UNIT; Start 08/18/16 at 09:00 JACKSON CUNNINGHAM Aug 18, 2016 11:51
--- NOTE | 2016-08-18 13:00 | CONS ---
Date/Time of Note Date/Time of Note DATE: 08/18/16 TIME: 12:54 Assessment/Plan Assessment/Plan Additional Assessment/Plan Ventilator settings; AC of 16, tidal volume 650, PEEP of 5, 30% FiO2. Next Assessment and recommendation; 1. Chronic respiratory failure due to anoxic encephalopathy. Remains ventilator dependent. 2. Sepsis. With improving leukocytosis on current antibiotic regimen. 3. Stable seizure disorder. 4. End-stage renal disease on hemodialysis. 5. Stable diabetes. 6. Patient developed paratracheal bleed with complete interval resolution. Continue current treatment. Prognosis remains poor. Consultation Date/Type/Reason Admit Date/Time Jul 27, 2016 at 23:29 Initial Consult Date 07/28/16 Type of Consultation: Pulmonary Referring Provider: BARNEY MCKEE 24 HR Interval Summary Free Text/Dictation Patient condition remains stable. Remains ventilator dependent owing to severe anoxic encephalopathy. Has remained hemodynamically stable. General examination; middle aged man, on ventilator via tracheostomy. Unresponsive and currently in no distress. Exam/Review of Systems Vital Signs Vitals Vital Signs Date Time Temp Pulse Resp B/P Pulse Ox O2 Delivery O2 Flow Rate FiO2 08/18/16 12:40 91 16 99 30 08/18/16 11:50 99.4 96/57 08/18/16 06:15 Mechanical Ventilator Intake and Output 08/17/16 08/17/16 08/18/16 15:00 23:00 07:00 Intake Total 500 ml 700 ml 807.5 ml Output Total 2500 ml 150 ml Balance -2000 ml 700 ml 657.5 ml Exam HEENT examination; supple neck, no JVD. No lymphadenopathy. Tracheostomy in place with clean insertion site. No bleeding noted. Patient is edentulous. Pupils are small bilaterally. No neck masses. No thyromegaly. Chest examination; clear to auscultation bilaterally. S1-S2 audible, no murmurs. Regular rhythm. Abdomen examination; soft, slightly protuberant. No organomegaly. G-tube in place. Bowel sounds audible. Extremity examination; no peripheral edema. This is 1+ bilaterally. MECHANICAL DESIGN TECHNICIAN examination; patient remains unresponsive. Results Result Diagram: 08/18/16 0610 08/18/16 0610 Results 24 hrs Laboratory Tests Test 08/17/16 17:28 08/17/16 21:09 08/18/16 01:32 08/18/16 05:53 Bedside Glucose 294 H 312 H 284 H 308 H Test 08/18/16 06:10 08/18/16 10:12 Alanine Aminotransferase (ALT/SGPT) 35 Albumin 3.6 Albumin/Globulin Ratio 0.85 Alkaline Phosphatase 89 Anion Gap 30 H Aspartate Amino Transf (AST/SGOT) 64 H Basophils # 0.0 Basophils % 0.3 Blood Morphology Comment Blood Urea Nitrogen 93 H Calcium Level 8.8 Carbon Dioxide Level 21 Chloride Level 96 L Creatinine 6.56 H Direct Bilirubin 0.00 Eosinophils # 0.2 Eosinophils % 1.5 Globulin 4.20 H Glucose Level 330 H Hematocrit 32.2 L Hemoglobin 10.9 L Indirect Bilirubin 0.0 Lymphocytes # 1.4 Lymphocytes % 8.4 L Mean Corpuscular Hemoglobin 31.4 Mean Corpuscular Hemoglobin Concent 33.8 Mean Corpuscular Volume 92.9 Mean Platelet Volume 8.6 Monocytes # 1.3 H Monocytes % 7.6 Neutrophils # 13.7 H Neutrophils % 82.2 H Nucleated Red Blood Cells # 0.0 Nucleated Red Blood Cells % 0.0 Platelet Count 309 Potassium Level 4.7 Red Blood Count 3.46 L Red Cell Distribution Width 15.1 H Sodium Level 142 Total Bilirubin 0.0 L Total Protein 7.8 White Blood Count 16.7 #H Bedside Glucose 331 H Medications Medications Current Medications Labetalol HCl (Labetalol) 10 mg Q6H PRN IV sbp > 160 Last administered on 18:33; Admin Dose 10 MG; Start 07/28/16 at 00:30 Acetaminophen (Tylenol Supp) 650 mg Q6H PRN [place] PAIN AND OR ELEVATED TEMP Last administered on 07/31/16 17:30; Admin Dose 650 MG; Start 07/28/16 at 08:30 Miscellaneous Information 1 ea NOTE XX ; Start 07/28/16 at 09:00 Glucose (Glutose) 15 gm Q15M PRN PO DECREASED GLUCOSE; Start 07/28/16 at 09:00 Glucose (Glutose) 22.5 gm Q15M PRN PO DECREASED GLUCOSE; Start 07/28/16 at 09: 00 Dextrose (D50w Syringe) 25 ml Q15M PRN IV DECREASED GLUCOSE; Start 07/28/16 at 09:00 Dextrose (D50w Syringe) 50 ml Q15M PRN IV DECREASED GLUCOSE; Start 07/28/16 at 09:00 Glucagon (Glucagen) 1 mg Q15M PRN IM DECREASED GLUCOSE; Start 07/28/16 at 09:00 Glucose (Glutose) 15 gm Q15M PRN BUCCAL DECREASED GLUCOSE; Start 07/28/16 at 09 :00 IV Flush (NS 10 ml) 10 ml PRN PRN IV IV PROTOCOL; Start 07/29/16 at 17:00 Morphine Sulfate (morphine) 2 mg Q4 PRN IV PAIN Last administered on 08/12/16 23:38; Admin Dose 2 MG; Start 07/31/16 at 12:00 Lorazepam (Ativan) 1 mg Q1H PRN IV SEIZURES Last administered on 08/11/16 12:25 ; Admin Dose 1 MG; Start 08/02/16 at 02:00 Acetaminophen 650 mg 650 mg Q4H PRN NGT PAIN AND OR ELEVATED TEMP Last administered on 08/18/16 05:45; Admin Dose 650 MG; Start 08/03/16 at 00:00 Valproate Sodium/ Sodium Chloride (Depacon/NS) 57.5 ml @ 55 mls/hr Q6 IVPB Last administered on 08/18/16 05:46; Admin Dose 55 MLS/HR; Start 08/04/16 at 13: 00 Calcium Acetate (Phoslo) 667 mg Q6 NGT Last administered on 08/18/16 05:46; Admin Dose 667 MG; Start 08/05/16 at 08:30 Hydralazine HCl 10 mg 10 mg Q4H PRN IV ELEVATED SYSTOLIC BP Last administered on 08/15/16 12:05; Admin Dose 10 MG; Start 08/06/16 at 01:30 Levetiracetam/ Sodium Chloride (Keppra Iv/NS) 107.5 ml @ 420 mls/hr DAILY IVPB Last administered on 08/18/16 09:53; Admin Dose 420 MLS/HR; Start 08/08/16 at 09:00 Sodium Bicarbonate (Sodium Bicarbonate Tab) 650 mg Q8 PO Last administered on 05:46; Admin Dose 650 MG; Start 08/08/16 at 14:00 Insulin Aspart (Novolog Insulin Pen) NOVOLOG *MODERATE* ALGORI... Q4 SC Last administered on 08/18/16 10:19; Admin Dose 10 UNIT; Start 08/11/16 at 13:00 Eye Lubricant (Artificial Tears Oph) 2 drop TID BOTH EYES Last administered on 08/18/16 10:14; Admin Dose 2 DROP; Start 08/13/16 at 09:00 Metoprolol Tartrate (Lopressor) 50 mg BID NGT Last administered on 08/18/16 10 :04; Admin Dose 50 MG; Start 08/15/16 at 21:00 Amiodarone HCl (Cordarone) 200 mg DAILY NGT Last administered on 08/18/16 10: 04; Admin Dose 200 MG; Start 08/18/16 at 09:00 Lansoprazole (Prevacid) 30 mg DAILY@06 NGT Last administered on 08/18/16 05:46 ; Admin Dose 30 MG; Start 08/18/16 at 06:00 Insulin Human NPH (Humulin N) 26 unit Q8 SC Last administered on 08/18/16 10: 18; Admin Dose 26 UNIT; Start 08/18/16 at 09:00 AMOR RODRIGUES Aug 18, 2016 13:00
[2016-08-18 15:20] LABS: HAAIG REFLEX REFLEX FILED
[2016-08-18] MEDS ORDERED: VANCOMYCIN 1 GM in NS 250 ML IVPB SCH (16:00)
--- NOTE | 2016-08-18 16:23 | PN ---
Date/Time of Note Date/Time of Note DATE: 08/18/16 TIME: 16:19 Assessment/Plan VTE Prophylaxis VTE Prophylaxis Intervention: heparin Lines/Catheters Urinary Cath still in place: No Assessment/Plan Chief Complaint/Hosp Course 1. PEA s/p cardiac arrest , etiology PEA due to hypoxia -Neuro on the case - -pt is s/p Trach/PEG and is not following commands 2. ESRD on HD - on serial Hemodialysis due to high BUN- plan for HD as per Renal , catheter has been changed recently 3. SIRS- WBC trending down but still having fevers -continue to hold Abx as had been on Abx for 18 days, also having diarrhea but does not appear to be C Diff -Blood Cx x2 4. VDRF - not able to wean off, s/p Tracheostomy now 5. Hypotension - cardiac shock vs septic shock - resolved 6. CHF - acute - diastolic vs systolic dysfunction - fluid to be removed via dialysis - monitor I/O's 7. Hx of hypertension - hold medications as patient is hypotensive 8. Type II DM-A1C at 7.3 -cont Lantus, NISS 9. GI ppx - protonix 10.. DVT ppx - heparin Dispo- CM to place in LTAC Problems: Subjective 24 Hr Interval Summary Subjective hx not possible: pt non-verbal Exam/Review of Systems Vital Signs Vitals Vital Signs Date Time Temp Pulse Resp B/P Pulse Ox O2 Delivery O2 Flow Rate FiO2 08/18/16 16:11 99 08/18/16 15:22 99.9 18 147/79 98 08/18/16 15:02 30 08/18/16 06:15 Mechanical Ventilator Intake and Output 08/17/16 08/17/16 08/18/16 15:00 23:00 07:00 Intake Total 500 ml 700 ml 807.5 ml Output Total 2500 ml 150 ml Balance -2000 ml 700 ml 657.5 ml Exam Constitutional: non-verbal Respiratory: clear to auscultation Cardiovascular: regular rate and rhythm Gastrointestinal: soft, No distended Musculoskeletal: nl extremities to inspection Results Result Diagram: 08/18/16 0610 08/18/16 0610 Results 24 hrs Laboratory Tests Test 08/17/16 17:28 08/17/16 21:09 08/18/16 01:32 08/18/16 05:53 Bedside Glucose 294 H 312 H 284 H 308 H Test 08/18/16 06:10 08/18/16 10:12 08/18/16 13:42 08/18/16 15:15 Alanine Aminotransferase (ALT/SGPT) 35 Albumin 3.6 Albumin/Globulin Ratio 0.85 Alkaline Phosphatase 89 Anion Gap 30 H Aspartate Amino Transf (AST/SGOT) 64 H Basophils # 0.0 Basophils % 0.3 Blood Morphology Comment Blood Urea Nitrogen 93 H Calcium Level 8.8 Carbon Dioxide Level 21 Chloride Level 96 L Creatinine 6.56 H Direct Bilirubin 0.00 Eosinophils # 0.2 Eosinophils % 1.5 Globulin 4.20 H Glucose Level 330 H Hematocrit 32.2 L Hemoglobin 10.9 L Indirect Bilirubin 0.0 Lymphocytes # 1.4 Lymphocytes % 8.4 L Mean Corpuscular Hemoglobin 31.4 Mean Corpuscular Hemoglobin Concent 33.8 Mean Corpuscular Volume 92.9 Mean Platelet Volume 8.6 Monocytes # 1.3 H Monocytes % 7.6 Neutrophils # 13.7 H Neutrophils % 82.2 H Nucleated Red Blood Cells # 0.0 Nucleated Red Blood Cells % 0.0 Platelet Count 309 Potassium Level 4.7 Red Blood Count 3.46 L Red Cell Distribution Width 15.1 H Sodium Level 142 Total Bilirubin 0.0 L Total Protein 7.8 White Blood Count 16.7 #H Bedside Glucose 331 H 254 H Hepatitis B Core Total Antibody Pending Hepatitis B Surface Antigen Pending Hepatitis C Antibody Pending Medications Medications Current Medications Labetalol HCl (Labetalol) 10 mg Q6H PRN IV sbp > 160 Last administered on 18:33; Admin Dose 10 MG; Start 07/28/16 at 00:30 Acetaminophen (Tylenol Supp) 650 mg Q6H PRN [place] PAIN AND [place] ELEVATED TEMP Last administered on 07/31/16 17:30; Admin Dose 650 MG; Start 07/28/16 at 08:30 Miscellaneous Information 1 ea NOTE XX ; Start 07/28/16 at 09:00 Glucose (Glutose) 15 gm Q15M PRN PO DECREASED GLUCOSE; Start 07/28/16 at 09:00 Glucose (Glutose) 22.5 gm Q15M PRN PO DECREASED GLUCOSE; Start 07/28/16 at 09: 00 Dextrose (D50w Syringe) 25 ml Q15M PRN IV DECREASED GLUCOSE; Start 07/28/16 at 09:00 Dextrose (D50w Syringe) 50 ml Q15M PRN IV DECREASED GLUCOSE; Start 07/28/16 at 09:00 Glucagon (Glucagen) 1 mg Q15M PRN IM DECREASED GLUCOSE; Start 07/28/16 at 09:00 Glucose (Glutose) 15 gm Q15M PRN BUCCAL DECREASED GLUCOSE; Start 07/28/16 at 09 :00 IV Flush (NS 10 ml) 10 ml PRN PRN IV IV PROTOCOL; Start 07/29/16 at 17:00 Morphine Sulfate (morphine) 2 mg Q4 PRN IV PAIN Last administered on 08/12/16 23:38; Admin Dose 2 MG; Start 07/31/16 at 12:00 Lorazepam (Ativan) 1 mg Q1H PRN IV SEIZURES Last administered on 08/11/16 12:25 ; Admin Dose 1 MG; Start 08/02/16 at 02:00 Acetaminophen 650 mg 650 mg Q4H PRN NGT PAIN AND OR ELEVATED TEMP Last administered on 08/18/16 15:27; Admin Dose 650 MG; Start 08/03/16 at 00:00 Valproate Sodium/ Sodium Chloride (Depacon/NS) 57.5 ml @ 55 mls/hr Q6 IVPB Last administered on 08/18/16 13:02; Admin Dose 55 MLS/HR; Start 08/04/16 at 13: 00 Calcium Acetate (Phoslo) 667 mg Q6 NGT Last administered on 08/18/16 13:03; Admin Dose 667 MG; Start 08/05/16 at 08:30 Hydralazine HCl 10 mg 10 mg Q4H PRN IV ELEVATED SYSTOLIC BP Last administered on 08/15/16 12:05; Admin Dose 10 MG; Start 08/06/16 at 01:30 Levetiracetam/ Sodium Chloride (Keppra Iv/NS) 107.5 ml @ 420 mls/hr DAILY IVPB Last administered on 08/18/16 09:53; Admin Dose 420 MLS/HR; Start 08/08/16 at 09:00 Sodium Bicarbonate (Sodium Bicarbonate Tab) 650 mg Q8 PO Last administered on 13:03; Admin Dose 650 MG; Start 08/08/16 at 14:00 Eye Lubricant (Artificial Tears Oph) 2 drop TID BOTH EYES Last administered on 08/18/16 13:03; Admin Dose 2 DROP; Start 08/13/16 at 09:00 Metoprolol Tartrate (Lopressor) 50 mg BID NGT Last administered on 08/18/16 10 :04; Admin Dose 50 MG; Start 08/15/16 at 21:00 Amiodarone HCl (Cordarone) 200 mg DAILY NGT Last administered on 08/18/16 10: 04; Admin Dose 200 MG; Start 08/18/16 at 09:00 Lansoprazole (Prevacid) 30 mg DAILY@06 NGT Last administered on 08/18/16 05:46 ; Admin Dose 30 MG; Start 08/18/16 at 06:00 Insulin Aspart (Novolog Insulin Pen) NOVOLOG *MODERATE* ALGORI... Q4 SC ; Start 08/18/16 at 16:00 Insulin Human NPH (Humulin N) 26 unit ,, SC ; Start 08/18/16 at 17:00 BARNEY MCKEE Aug 18, 2016 16:23
[2016-08-18 16:40] LABS: HEPATITIS B CORE ANTIBODY REACTIVE (NEGATIVE)
--- NOTE | 2016-08-18 21:48 | PN ---
Date/Time of Note Date/Time of Note DATE: 08/18/16 TIME: 21:48 Assessment/Plan Lines/Catheters Lorenz in Place (from Nrsg): No Assessment/Plan Chief Complaint/Hosp Course Respiratory Failure SP tracheostomy will continue trach care vent support Problems: Subjective 24 Hr Interval Summary Constitutional: improved Pain Control: mild Exam/Review of Systems Vital Signs Vitals Vital Signs Date Time Temp Pulse Resp B/P Pulse Ox O2 Delivery O2 Flow Rate FiO2 08/18/16 20:35 106 08/18/16 19:44 101.1 17 163/77 95 08/18/16 17:30 30 08/18/16 06:15 Mechanical Ventilator Intake and Output 08/17/16 08/17/16 08/18/16 15:00 23:00 07:00 Intake Total 500 ml 700 ml 807.5 ml Output Total 2500 ml 150 ml Balance -2000 ml 700 ml 657.5 ml Exam Neck: non-tender, supple Respiratory: clear to auscultation, normal air movement Results Result Diagram: 08/18/16 0610 08/18/16 0610 ARMEN BADILLO MD Aug 18, 2016 21:48
[2016-08-19] VITALS (30 sets, daily range): BP systolic 111–197; BP diastolic 59–93; PULSE 86–105; RESP 16–21
[2016-08-19] MEDS: CALCIUM ACETATE 667 MG CAP NGT SCH ×5 (00:03→23:44)
[2016-08-19] MEDS: INSULIN ASPART [NOVOLOG] 3 ML PEN SC SCH ×5 (00:04→23:53)
[2016-08-19] MEDS: NPH, HUMAN INSULIN ISOPHANE 3ML VIAL SC SCH ×4 (00:04→23:53)
[2016-08-19] MEDS: VALPROATE INJ 750 MG in SOD CHLORIDE 0.9% 50 ML IVPB SCH ×5 (00:05→23:45)
[2016-08-19] MEDS: ALBUTEROL HFA 8 GM INHALER INH SCH ×6 (00:54→21:48)
[2016-08-19] MEDS: IPRATROPIUM (HFA) 12.9 GM INHALER INH SCH ×6 (00:55→21:48)
[2016-08-19] MEDS: LANSOPRAZOLE 30 MG CAP NGT SCH (05:00)
[2016-08-19] MEDS: NA BICARBONATE 650 MG TAB PO SCH ×3 (05:00→21:14)
[2016-08-19] MEDS ORDERED: metFORMIN 500 MG TAB GTB SCH (07:55)
[2016-08-19] MEDS: ACETAMINOPHEN 650MG/20.3ML CUP NGT PRN ×2 (08:13→23:53)
[2016-08-19] MEDS: LEVETIRACETAM IV 750 MG in SOD CHLORIDE 0.9% 100 ML IVPB SCH (08:13)
[2016-08-19 08:14] LABS: BASOPHILS % 0.3 % (0.0-2.0); EOSINOPHILS # 0.4 10^3/ul (0.0-0.5); EOSINOPHILS % 2.4 % (0.0-7.0); HEMATOCRIT 29.7 % (42.0-52.0); HEMOGLOBIN 10.1 g/dl (14.0-18.0); LYMPHOCYTES # 2.1 10^3/ul (0.8-2.9); LYMPHOCYTES % 11.9 % (15.0-51.0); MEAN CORPUSCULAR HEMOGLOBIN 31.6 pg (29.0-33.0); MEAN CORPUSCULAR HGB CONC 33.9 g/dl (32.0-37.0); MEAN CORPUSCULAR VOLUME 93.1 fl (82.0-101.0); MEAN PLATELET VOLUME 8.8 fl (7.4-10.4); MONOCYTE # 1.5 10^3/ul (0.3-0.9); MONOCYTES % 8.3 % (0.0-11.0); NEUTROPHIL # 13.4 10^3/ul (1.6-7.5); NEUTROPHILS % 77.1 % (39.0-77.0); PLATELET COUNT 339 10^3/UL (140-440); RED BLOOD COUNT 3.19 10^6/ul (4.70-6.10); RED CELL DISTRIBUTION WIDTH 15.2 % (11.5-14.5); UNCORRECTED WBC 17.4 10^3/ul (4.8-10.8); WHITE BLOOD COUNT 17.4 10^3/ul (4.8-10.8)
[2016-08-19] MEDS: METOPROLOL 50 MG TAB NGT SCH ×2 (08:14→19:33)
[2016-08-19] MEDS: AMIODARONE 200 MG TAB NGT SCH (08:14)
[2016-08-19 08:21] LABS: POTASSIUM 5.1 mmol/L (3.5-5.1)
[2016-08-19 08:24] LABS: CALCIUM 8.5 mg/dl (8.4-10.2)
[2016-08-19 08:26] LABS: CONDITION 1; LH ANALYZER COMMENTS 1
[2016-08-19 08:30] LABS: CREATININE 8.95 mg/dl (0.61-1.24)
[2016-08-19] MEDS: ARTIFICIAL TEARS 15 ML OPH BOTH EYES SCH ×3 (08:44→19:31)
[2016-08-19] MEDS: BUDESONIDE (NEB) 0.5MG/2ML AMP HHN SCH ×2 (09:30→21:32)
[2016-08-19] MEDS: ARFORMOTEROL TARTRATE 15MCG/2 ML AMP NEB SCH ×2 (09:40→21:32)
--- NOTE | 2016-08-19 10:06 | CONS ---
Date/Time of Note Date/Time of Note DATE: 08/19/16 TIME: 10:05 Assessment/Plan Assessment/Plan Chief Complaint/Hosp Course Paroxysmal afib with RVR: converted to afib with RVR (rates up to 200) on 08/11 uncontrolled with meds and requiring cardioversion at 150 J for unstable hemodynamics. Remains in sinus. Should be on 1 month of anticoagulation post cardioversion. alf anticoagulation may not be necessary as CHADSVASC is 1. Anticoagulation stopped due to trach site bleeding but will resume as no further bleeding Fevers: ?infectious source (CXR clear, c dif negative, no UOP) vs central fevers Cardiac arrest: PEA by history and likely respiratory/hypoxic mediated. Cardiac cath without significant CAD, EF preserved. Anoxic brain injury: EEG suggestive of brain but breathing over vent and passed apnea trial. Now off sedation for several days. Opens eyes at times but no purposeful movements. Acute on chronic diastolic heart failure: EF preserved. Receiving HD Acute respiratory failure: s/p trach ESRD on HD Seizures HTN -amiodarone 200mg daily -restart coumadin for one month, goal INR 2-3 -metoprolol 50 mg BID -HD per nephrology -Dr. Lozano will be available as needed over the weekend Problems: Consultation Date/Type/Reason Admit Date/Time Jul 27, 2016 at 23:29 Initial Consult Date 07/28/16 Type of Consultation: Cardiology Referring Provider: BARNEY MCKEE 24 HR Interval Summary Free Text/Dictation No o/n events. Exam/Review of Systems Vital Signs Vitals Vital Signs Date Time Temp Pulse Resp B/P Pulse Ox O2 Delivery O2 Flow Rate FiO2 08/19/16 09:45 96 08/19/16 08:30 22 08/19/16 07:48 100.1 158/85 94 08/19/16 07:20 30 08/18/16 06:15 Mechanical Ventilator Intake and Output 08/18/16 08/18/16 08/19/16 15:00 23:00 07:00 Intake Total 57.5 ml 705 ml 865.0 ml Output Total 100 ml Balance 57.5 ml 705 ml 765.0 ml Exam Constitutional: No alert Head: atraumatic, normocephalic Neck: No jvd Respiratory: diminished breath sounds, No clear to auscultation Cardiovascular: regular rate and rhythm, No edema, No systolic murmur Gastrointestinal: non-tender, soft Extremities: normal pulses Neurological: No nl mental status Results Result Diagram: 08/19/16 0604 08/19/16 0604 Results 24 hrs Laboratory Tests Test 08/18/16 10:12 08/18/16 13:42 08/18/16 15:15 08/18/16 16:45 Bedside Glucose 331 H 254 H 253 H Hepatitis B Core Total Antibody REACTIVE H Hepatitis B Surface Antigen POSITIVE H Hepatitis C Antibody REACTIVE H Test 08/18/16 20:10 08/18/16 23:55 08/19/16 04:54 08/19/16 06:04 Bedside Glucose 236 H 256 H 248 H Anion Gap 33 H Basophils # 0.0 Basophils % 0.3 Blood Morphology Comment Blood Urea Nitrogen 131 #H Calcium Level 8.5 Carbon Dioxide Level 21 Chloride Level 95 L Creatinine 8.95 #H Eosinophils # 0.4 Eosinophils % 2.4 Glucose Level 215 # Hematocrit 29.7 L Hemoglobin 10.1 L Lymphocytes # 2.1 Lymphocytes % 11.9 L Mean Corpuscular Hemoglobin 31.6 Mean Corpuscular Hemoglobin Concent 33.9 Mean Corpuscular Volume 93.1 Mean Platelet Volume 8.8 Monocytes # 1.5 H Monocytes % 8.3 Neutrophils # 13.4 H Neutrophils % 77.1 H Nucleated Red Blood Cells # 0.0 Nucleated Red Blood Cells % 0.0 Platelet Count 339 Potassium Level 5.1 Prealbumin 33.4 Red Blood Count 3.19 L Red Cell Distribution Width 15.2 H Sodium Level 144 White Blood Count 17.4 H Test 08/19/16 08:38 Bedside Glucose 235 H Medications Medications Current Medications Labetalol HCl (Labetalol) 10 mg Q6H PRN IV sbp > 160 Last administered on 18:33; Admin Dose 10 MG; Start 07/28/16 at 00:30 Acetaminophen (Tylenol Supp) 650 mg Q6H PRN [place] PAIN AND OR ELEVATED TEMP Last administered on 07/31/16 17:30; Admin Dose 650 MG; Start 07/28/16 at 08:30 Miscellaneous Information 1 ea NOTE XX ; Start 07/28/16 at 09:00 Glucose (Glutose) 15 gm Q15M PRN PO DECREASED GLUCOSE; Start 07/28/16 at 09:00 Glucose (Glutose) 22.5 gm Q15M PRN PO DECREASED GLUCOSE; Start 07/28/16 at 09: 00 Dextrose (D50w Syringe) 25 ml Q15M PRN IV DECREASED GLUCOSE; Start 07/28/16 at 09:00 Dextrose (D50w Syringe) 50 ml Q15M PRN IV DECREASED GLUCOSE; Start 07/28/16 at 09:00 Glucagon (Glucagen) 1 mg Q15M PRN IM DECREASED GLUCOSE; Start 07/28/16 at 09:00 Glucose (Glutose) 15 gm Q15M PRN BUCCAL DECREASED GLUCOSE; Start 07/28/16 at 09 :00 IV Flush (NS 10 ml) 10 ml PRN PRN IV IV PROTOCOL; Start 07/29/16 at 17:00 Morphine Sulfate (morphine) 2 mg Q4 PRN IV PAIN Last administered on 08/12/16 23:38; Admin Dose 2 MG; Start 07/31/16 at 12:00 Lorazepam (Ativan) 1 mg Q1H PRN IV SEIZURES Last administered on 08/11/16 12:25 ; Admin Dose 1 MG; Start 08/02/16 at 02:00 Acetaminophen 650 mg 650 mg Q4H PRN NGT PAIN AND OR ELEVATED TEMP Last administered on 08/19/16 08:13; Admin Dose 650 MG; Start 08/03/16 at 00:00 Valproate Sodium/ Sodium Chloride (Depacon/NS) 57.5 ml @ 55 mls/hr Q6 IVPB Last administered on 08/19/16 05:00; Admin Dose 55 MLS/HR; Start 08/04/16 at 13: 00 Calcium Acetate (Phoslo) 667 mg Q6 NGT Last administered on 08/19/16 05:00; Admin Dose 667 MG; Start 08/05/16 at 08:30 Hydralazine HCl 10 mg 10 mg Q4H PRN IV ELEVATED SYSTOLIC BP Last administered on 08/15/16 12:05; Admin Dose 10 MG; Start 08/06/16 at 01:30 Levetiracetam/ Sodium Chloride (Keppra Iv/NS) 107.5 ml @ 420 mls/hr DAILY IVPB Last administered on 08/19/16 08:13; Admin Dose 420 MLS/HR; Start 08/08/16 at 09:00 Sodium Bicarbonate (Sodium Bicarbonate Tab) 650 mg Q8 PO Last administered on 05:00; Admin Dose 650 MG; Start 08/08/16 at 14:00 Eye Lubricant (Artificial Tears Oph) 2 drop TID BOTH EYES Last administered on 08/19/16 08:44; Admin Dose 2 DROP; Start 08/13/16 at 09:00 Metoprolol Tartrate (Lopressor) 50 mg BID NGT Last administered on 08/19/16 08 :14; Admin Dose 50 MG; Start 08/15/16 at 21:00 Amiodarone HCl (Cordarone) 200 mg DAILY NGT Last administered on 08/19/16 08: 14; Admin Dose 200 MG; Start 08/18/16 at 09:00 Lansoprazole (Prevacid) 30 mg DAILY@06 NGT Last administered on 08/19/16 05:00 ; Admin Dose 30 MG; Start 08/18/16 at 06:00 Insulin Human NPH (Humulin N) 26 unit ,, SC Last administered on 08:47; Admin Dose 26 UNIT; Start 08/18/16 at 17:00 Insulin Aspart (Novolog Insulin Pen) NOVOLOG *MODERATE* ALGORI... Q6 SC Last administered on 08/19/16 05:04; Admin Dose 6 UNIT; Start 08/19/16 at 00:00 JACKSON CUNNINGHAM Aug 19, 2016 10:06
[2016-08-19 10:39] LABS: INR 1.11; PROTIME 14.3 Sec (12.2-14.2); PT RATIO 1.1
--- NOTE | 2016-08-19 13:09 | CONS ---
Date/Time of Note Date/Time of Note DATE: 08/19/16 TIME: 13:06 Assessment/Plan Assessment/Plan Chief Complaint/Hosp Course #1 end-stage renal disease . He had hemodialysis today , will order hemodialysis for tomorrow because his BUN remains high . #2 the patient is status post a cardiac arrest at home #3 altered level of consciousness, probable anoxic encephalopathy. #4 insulin-dependent diabetes mellitus #5 seizures #6 ventilator dependent respiratory failure , h/o COPD and pneumonia on CXR . #7 hyperphosphatemia , calcium acetate is being given . #8 new onset A fib , he was cardioverted and now is off heparin drip because of bleeding around his trachea .. #9 dietary consult ordered , they recommend that tube feeding be decreased to 40 ml/hr . I will adjust rate . If BUN remains elevated , may need to decrease tube feeding further . Problems: Consultation Date/Type/Reason Admit Date/Time Jul 27, 2016 at 23:29 Initial Consult Date 07/28/16 Type of Consultation: Cardiology Referring Provider: BARNEY MCKEE 24 HR Interval Summary Free Text/Dictation Patient is unresponsive on a ventilator . He just finished a hemodialysis treatment . Exam/Review of Systems Vital Signs Vitals Vital Signs Date Time Temp Pulse Resp B/P Pulse Ox O2 Delivery O2 Flow Rate FiO2 08/19/16 12:18 95 08/19/16 11:47 22 08/19/16 11:46 98.6 116/59 95 08/19/16 11:45 30 08/18/16 06:15 Mechanical Ventilator Intake and Output 08/18/16 08/18/16 08/19/16 15:00 23:00 07:00 Intake Total 57.5 ml 705 ml 865.0 ml Output Total 100 ml Balance 57.5 ml 705 ml 765.0 ml Exam Constitutional: non-verbal Respiratory: clear to auscultation, diminished breath sounds Cardiovascular: regular rate and rhythm Gastrointestinal: soft Musculoskeletal: nl extremities to inspection Results Result Diagram: 08/19/16 0604 08/19/16 0604 Results 24 hrs Laboratory Tests Test 08/18/16 13:42 08/18/16 15:15 08/18/16 16:45 08/18/16 20:10 Bedside Glucose 254 H 253 H 236 H Hepatitis B Core Total Antibody REACTIVE H Hepatitis B Surface Antigen POSITIVE H Hepatitis C Antibody REACTIVE H Test 08/18/16 23:55 08/19/16 04:54 08/19/16 06:04 08/19/16 08:38 Bedside Glucose 256 H 248 H 235 H Anion Gap 33 H Basophils # 0.0 Basophils % 0.3 Blood Morphology Comment Blood Urea Nitrogen 131 #H Calcium Level 8.5 Carbon Dioxide Level 21 Chloride Level 95 L Creatinine 8.95 #H Eosinophils # 0.4 Eosinophils % 2.4 Glucose Level 215 # Hematocrit 29.7 L Hemoglobin 10.1 L Lymphocytes # 2.1 Lymphocytes % 11.9 L Mean Corpuscular Hemoglobin 31.6 Mean Corpuscular Hemoglobin Concent 33.9 Mean Corpuscular Volume 93.1 Mean Platelet Volume 8.8 Monocytes # 1.5 H Monocytes % 8.3 Neutrophils # 13.4 H Neutrophils % 77.1 H Nucleated Red Blood Cells # 0.0 Nucleated Red Blood Cells % 0.0 Platelet Count 339 Potassium Level 5.1 Prealbumin 33.4 Red Blood Count 3.19 L Red Cell Distribution Width 15.2 H Sodium Level 144 White Blood Count 17.4 H Test 08/19/16 09:35 08/19/16 12:03 INR International Normalized Ratio 1.11 Prothrombin Time 14.3 H Prothrombin Time Ratio 1.1 Bedside Glucose 202 Medications Medications Current Medications Labetalol HCl (Labetalol) 10 mg Q6H PRN IV sbp > 160 Last administered on 18:33; Admin Dose 10 MG; Start 07/28/16 at 00:30 Acetaminophen (Tylenol Supp) 650 mg Q6H PRN [place] PAIN AND OR ELEVATED TEMP Last administered on 07/31/16 17:30; Admin Dose 650 MG; Start 07/28/16 at 08:30 Miscellaneous Information 1 ea NOTE XX ; Start 07/28/16 at 09:00 Glucose (Glutose) 15 gm Q15M PRN PO DECREASED GLUCOSE; Start 07/28/16 at 09:00 Glucose (Glutose) 22.5 gm Q15M PRN PO DECREASED GLUCOSE; Start 07/28/16 at 09: 00 Dextrose (D50w Syringe) 25 ml Q15M PRN IV DECREASED GLUCOSE; Start 07/28/16 at 09:00 Dextrose (D50w Syringe) 50 ml Q15M PRN IV DECREASED GLUCOSE; Start 07/28/16 at 09:00 Glucagon (Glucagen) 1 mg Q15M PRN IM DECREASED GLUCOSE; Start 07/28/16 at 09:00 Glucose (Glutose) 15 gm Q15M PRN BUCCAL DECREASED GLUCOSE; Start 07/28/16 at 09 :00 IV Flush (NS 10 ml) 10 ml PRN PRN IV IV PROTOCOL; Start 07/29/16 at 17:00 Morphine Sulfate (morphine) 2 mg Q4 PRN IV PAIN Last administered on 08/12/16 23:38; Admin Dose 2 MG; Start 07/31/16 at 12:00 Lorazepam (Ativan) 1 mg Q1H PRN IV SEIZURES Last administered on 08/11/16 12:25 ; Admin Dose 1 MG; Start 08/02/16 at 02:00 Acetaminophen 650 mg 650 mg Q4H PRN NGT PAIN AND OR ELEVATED TEMP Last administered on 08/19/16 08:13; Admin Dose 650 MG; Start 08/03/16 at 00:00 Valproate Sodium/ Sodium Chloride (Depacon/NS) 57.5 ml @ 55 mls/hr Q6 IVPB Last administered on 08/19/16 05:00; Admin Dose 55 MLS/HR; Start 08/04/16 at 13: 00 Calcium Acetate (Phoslo) 667 mg Q6 NGT Last administered on 08/19/16 05:00; Admin Dose 667 MG; Start 08/05/16 at 08:30 Hydralazine HCl 10 mg 10 mg Q4H PRN IV ELEVATED SYSTOLIC BP Last administered on 08/15/16 12:05; Admin Dose 10 MG; Start 08/06/16 at 01:30 Levetiracetam/ Sodium Chloride (Keppra Iv/NS) 107.5 ml @ 420 mls/hr DAILY IVPB Last administered on 08/19/16 08:13; Admin Dose 420 MLS/HR; Start 08/08/16 at 09:00 Sodium Bicarbonate (Sodium Bicarbonate Tab) 650 mg Q8 PO Last administered on 05:00; Admin Dose 650 MG; Start 08/08/16 at 14:00 Eye Lubricant (Artificial Tears Oph) 2 drop TID BOTH EYES Last administered on 08/19/16 08:44; Admin Dose 2 DROP; Start 08/13/16 at 09:00 Metoprolol Tartrate (Lopressor) 50 mg BID NGT Last administered on 08/19/16 08 :14; Admin Dose 50 MG; Start 08/15/16 at 21:00 Amiodarone HCl (Cordarone) 200 mg DAILY NGT Last administered on 08/19/16 08: 14; Admin Dose 200 MG; Start 08/18/16 at 09:00 Lansoprazole (Prevacid) 30 mg DAILY@06 NGT Last administered on 08/19/16 05:00 ; Admin Dose 30 MG; Start 08/18/16 at 06:00 Insulin Aspart (Novolog Insulin Pen) NOVOLOG *MODERATE* ALGORI... Q6 SC Last administered on 08/19/16 05:04; Admin Dose 6 UNIT; Start 08/19/16 at 00:00 Warfarin Sodium (Coumadin) 5 mg DAILY@17 PO ; Start 08/19/16 at 17:00 Insulin Human NPH (Humulin N) 32 unit SC ; Start 08/19/16 at 17:00 ROSCOE LANGE MD Aug 19, 2016 13:09
--- NOTE | 2016-08-19 13:51 | CONS ---
Date/Time of Note Date/Time of Note DATE: 08/19/16 TIME: 13:47 Assessment/Plan Assessment/Plan Additional Assessment/Plan Assessment and recommendation; 1. Patient with chronic respiratory failure due to anoxic brain injury. 2. Sepsis with significant clinical improvement. 3. Cardiac arrhythmia currently in sinus rhythm. 4. End-stage renal disease on hemodialysis. 5. Tracheal bleed with interval resolution. Continue supportive care. I did have a detailed discussion the patient's daughter and at bedside and answered all their questions. Prognosis remains poor. Consultation Date/Type/Reason Admit Date/Time Jul 27, 2016 at 23:29 Initial Consult Date 07/28/16 Type of Consultation: Pulmonary Referring Provider: BARNEY MCKEE 24 HR Interval Summary Free Text/Dictation General examination; elderly male, on ventilator via tracheostomy. In no distress. Patient remains unresponsive. HEENT examination; supple neck, tracheostomy in place with crusting of blood around it no active bleed seen patient is edentulous. Pupils are midsize and reactive to light. No thyromegaly. No neck masses. Supple neck. Patient condition remains stable. Chest examination; clear to auscultation bilaterally. S1-S2 audible, no murmurs. Regular rhythm. Abdomen examination; soft, G-tube in place. No organomegaly. Bowel sounds audible. Extremity examination; no peripheral edema. Pulses 2+ bilaterally. MOTIVATIONAL SPEAKER examination; patient remains unresponsive. Exam/Review of Systems Vital Signs Vitals Vital Signs Date Time Temp Pulse Resp B/P Pulse Ox O2 Delivery O2 Flow Rate FiO2 08/19/16 12:18 95 08/19/16 11:47 22 08/19/16 11:46 98.6 116/59 95 08/19/16 11:45 30 08/18/16 06:15 Mechanical Ventilator Intake and Output 08/18/16 08/18/16 08/19/16 15:00 23:00 07:00 Intake Total 57.5 ml 705 ml 865.0 ml Output Total 100 ml Balance 57.5 ml 705 ml 765.0 ml Results Result Diagram: 08/19/16 0604 08/19/16 0604 Results 24 hrs Laboratory Tests Test 08/18/16 15:15 08/18/16 16:45 08/18/16 20:10 08/18/16 23:55 Hepatitis B Core Total Antibody REACTIVE H Hepatitis B Surface Antigen POSITIVE H Hepatitis C Antibody REACTIVE H Bedside Glucose 253 H 236 H 256 H Test 08/19/16 04:54 08/19/16 06:04 08/19/16 08:38 08/19/16 09:35 Bedside Glucose 248 H 235 H Anion Gap 33 H Basophils # 0.0 Basophils % 0.3 Blood Morphology Comment Blood Urea Nitrogen 131 #H Calcium Level 8.5 Carbon Dioxide Level 21 Chloride Level 95 L Creatinine 8.95 #H Eosinophils # 0.4 Eosinophils % 2.4 Glucose Level 215 # Hematocrit 29.7 L Hemoglobin 10.1 L Lymphocytes # 2.1 Lymphocytes % 11.9 L Mean Corpuscular Hemoglobin 31.6 Mean Corpuscular Hemoglobin Concent 33.9 Mean Corpuscular Volume 93.1 Mean Platelet Volume 8.8 Monocytes # 1.5 H Monocytes % 8.3 Neutrophils # 13.4 H Neutrophils % 77.1 H Nucleated Red Blood Cells # 0.0 Nucleated Red Blood Cells % 0.0 Platelet Count 339 Potassium Level 5.1 Prealbumin 33.4 Red Blood Count 3.19 L Red Cell Distribution Width 15.2 H Sodium Level 144 White Blood Count 17.4 H INR International Normalized Ratio 1.11 Prothrombin Time 14.3 H Prothrombin Time Ratio 1.1 Test 08/19/16 12:03 Bedside Glucose 202 Medications Medications Current Medications Labetalol HCl (Labetalol) 10 mg Q6H PRN IV sbp > 160 Last administered on 18:33; Admin Dose 10 MG; Start 07/28/16 at 00:30 Acetaminophen (Tylenol Supp) 650 mg Q6H PRN [place] PAIN AND OR ELEVATED TEMP Last administered on 07/31/16 17:30; Admin Dose 650 MG; Start 07/28/16 at 08:30 Miscellaneous Information 1 ea NOTE XX ; Start 07/28/16 at 09:00 Glucose (Glutose) 15 gm Q15M PRN PO DECREASED GLUCOSE; Start 07/28/16 at 09:00 Glucose (Glutose) 22.5 gm Q15M PRN PO DECREASED GLUCOSE; Start 07/28/16 at 09: 00 Dextrose (D50w Syringe) 25 ml Q15M PRN IV DECREASED GLUCOSE; Start 07/28/16 at 09:00 Dextrose (D50w Syringe) 50 ml Q15M PRN IV DECREASED GLUCOSE; Start 07/28/16 at 09:00 Glucagon (Glucagen) 1 mg Q15M PRN IM DECREASED GLUCOSE; Start 07/28/16 at 09:00 Glucose (Glutose) 15 gm Q15M PRN BUCCAL DECREASED GLUCOSE; Start 07/28/16 at 09 :00 IV Flush (NS 10 ml) 10 ml PRN PRN IV IV PROTOCOL; Start 07/29/16 at 17:00 Morphine Sulfate (morphine) 2 mg Q4 PRN IV PAIN Last administered on 08/12/16 23:38; Admin Dose 2 MG; Start 07/31/16 at 12:00 Lorazepam (Ativan) 1 mg Q1H PRN IV SEIZURES Last administered on 08/11/16 12:25 ; Admin Dose 1 MG; Start 08/02/16 at 02:00 Acetaminophen 650 mg 650 mg Q4H PRN NGT PAIN AND OR ELEVATED TEMP Last administered on 08/19/16 08:13; Admin Dose 650 MG; Start 08/03/16 at 00:00 Valproate Sodium/ Sodium Chloride (Depacon/NS) 57.5 ml @ 55 mls/hr Q6 IVPB Last administered on 08/19/16 13:17; Admin Dose 55 MLS/HR; Start 08/04/16 at 13: 00 Calcium Acetate (Phoslo) 667 mg Q6 NGT Last administered on 08/19/16 13:18; Admin Dose 667 MG; Start 08/05/16 at 08:30 Hydralazine HCl 10 mg 10 mg Q4H PRN IV ELEVATED SYSTOLIC BP Last administered on 08/15/16 12:05; Admin Dose 10 MG; Start 08/06/16 at 01:30 Levetiracetam/ Sodium Chloride (Keppra Iv/NS) 107.5 ml @ 420 mls/hr DAILY IVPB Last administered on 08/19/16 08:13; Admin Dose 420 MLS/HR; Start 08/08/16 at 09:00 Sodium Bicarbonate (Sodium Bicarbonate Tab) 650 mg Q8 PO Last administered on 13:17; Admin Dose 650 MG; Start 08/08/16 at 14:00 Eye Lubricant (Artificial Tears Oph) 2 drop TID BOTH EYES Last administered on 08/19/16 13:20; Admin Dose 2 DROP; Start 08/13/16 at 09:00 Metoprolol Tartrate (Lopressor) 50 mg BID NGT Last administered on 08/19/16 08 :14; Admin Dose 50 MG; Start 08/15/16 at 21:00 Amiodarone HCl (Cordarone) 200 mg DAILY NGT Last administered on 08/19/16 08: 14; Admin Dose 200 MG; Start 08/18/16 at 09:00 Lansoprazole (Prevacid) 30 mg DAILY@06 NGT Last administered on 08/19/16 05:00 ; Admin Dose 30 MG; Start 08/18/16 at 06:00 Insulin Aspart (Novolog Insulin Pen) NOVOLOG *MODERATE* ALGORI... Q6 SC Last administered on 08/19/16 13:19; Admin Dose 4 UNIT; Start 08/19/16 at 00:00 Warfarin Sodium (Coumadin) 5 mg DAILY@17 PO ; Start 08/19/16 at 17:00 Insulin Human NPH (Humulin N) 32 unit SC ; Start 08/19/16 at 17:00 AMOR RODRIGUES Aug 19, 2016 13:50
--- NOTE | 2016-08-19 15:02 | PN ---
Date/Time of Note Date/Time of Note DATE: 08/19/16 TIME: 14:55 Assessment/Plan VTE Prophylaxis VTE Prophylaxis Intervention: other (warfarin tube feed) Lines/Catheters IV Catheter Type (from Nrsg): PICC Line Urinary Cath still in place: No Subjective 24 Hr Interval Summary Free Text/Dictation post anoxic encephalopathy, chronic esrd rhythm is sinus on tele no temperature today remains unresponsive except to pain diabetes...with change in dose and schedule of nph the blood sugars are lower today, would leave as is before changing again, reassess tomorrow on exam unresponsive, eyes to left, minimal respose to touch tube feed in lungs clear at this point heart rate is regular no edema dtr at dbedside, discussed with her Subjective hx not possible: pt non-verbal (tube feed in place) Constitutional: requiring IVF Exam/Review of Systems Vital Signs Vitals Vital Signs Date Time Temp Pulse Resp B/P Pulse Ox O2 Delivery O2 Flow Rate FiO2 08/19/16 13:55 92 21 96 30 08/19/16 11:46 98.6 116/59 08/18/16 06:15 Mechanical Ventilator Intake and Output 08/18/16 08/18/16 08/19/16 15:00 23:00 07:00 Intake Total 57.5 ml 705 ml 865.0 ml Output Total 100 ml Balance 57.5 ml 705 ml 765.0 ml Results Result Diagram: 08/19/16 0604 08/19/16 0604 Results 24 hrs Laboratory Tests Test 08/18/16 15:15 08/18/16 16:45 08/18/16 20:10 08/18/16 23:55 Hepatitis B Core Total Antibody REACTIVE H Hepatitis B Surface Antigen POSITIVE H Hepatitis C Antibody REACTIVE H Bedside Glucose 253 H 236 H 256 H Test 08/19/16 04:54 08/19/16 06:04 08/19/16 08:38 08/19/16 09:35 Bedside Glucose 248 H 235 H Anion Gap 33 H Basophils # 0.0 Basophils % 0.3 Blood Morphology Comment Blood Urea Nitrogen 131 #H Calcium Level 8.5 Carbon Dioxide Level 21 Chloride Level 95 L Creatinine 8.95 #H Eosinophils # 0.4 Eosinophils % 2.4 Glucose Level 215 # Hematocrit 29.7 L Hemoglobin 10.1 L Lymphocytes # 2.1 Lymphocytes % 11.9 L Mean Corpuscular Hemoglobin 31.6 Mean Corpuscular Hemoglobin Concent 33.9 Mean Corpuscular Volume 93.1 Mean Platelet Volume 8.8 Monocytes # 1.5 H Monocytes % 8.3 Neutrophils # 13.4 H Neutrophils % 77.1 H Nucleated Red Blood Cells # 0.0 Nucleated Red Blood Cells % 0.0 Platelet Count 339 Potassium Level 5.1 Prealbumin 33.4 Red Blood Count 3.19 L Red Cell Distribution Width 15.2 H Sodium Level 144 White Blood Count 17.4 H INR International Normalized Ratio 1.11 Prothrombin Time 14.3 H Prothrombin Time Ratio 1.1 Test 08/19/16 12:03 Bedside Glucose 202 Medications Medications Current Medications Labetalol HCl (Labetalol) 10 mg Q6H PRN IV sbp > 160 Last administered on 18:33; Admin Dose 10 MG; Start 07/28/16 at 00:30 Acetaminophen (Tylenol Supp) 650 mg Q6H PRN [place] PAIN AND OR ELEVATED TEMP Last administered on 07/31/16 17:30; Admin Dose 650 MG; Start 07/28/16 at 08:30 Miscellaneous Information 1 ea NOTE XX ; Start 07/28/16 at 09:00 Glucose (Glutose) 15 gm Q15M PRN PO DECREASED GLUCOSE; Start 07/28/16 at 09:00 Glucose (Glutose) 22.5 gm Q15M PRN PO DECREASED GLUCOSE; Start 07/28/16 at 09: 00 Dextrose (D50w Syringe) 25 ml Q15M PRN IV DECREASED GLUCOSE; Start 07/28/16 at 09:00 Dextrose (D50w Syringe) 50 ml Q15M PRN IV DECREASED GLUCOSE; Start 07/28/16 at 09:00 Glucagon (Glucagen) 1 mg Q15M PRN IM DECREASED GLUCOSE; Start 07/28/16 at 09:00 Glucose (Glutose) 15 gm Q15M PRN BUCCAL DECREASED GLUCOSE; Start 07/28/16 at 09 :00 IV Flush (NS 10 ml) 10 ml PRN PRN IV IV PROTOCOL; Start 07/29/16 at 17:00 Morphine Sulfate (morphine) 2 mg Q4 PRN IV PAIN Last administered on 08/12/16 23:38; Admin Dose 2 MG; Start 07/31/16 at 12:00 Lorazepam (Ativan) 1 mg Q1H PRN IV SEIZURES Last administered on 08/11/16 12:25 ; Admin Dose 1 MG; Start 08/02/16 at 02:00 Acetaminophen 650 mg 650 mg Q4H PRN NGT PAIN AND OR ELEVATED TEMP Last administered on 08/19/16 08:13; Admin Dose 650 MG; Start 08/03/16 at 00:00 Valproate Sodium/ Sodium Chloride (Depacon/NS) 57.5 ml @ 55 mls/hr Q6 IVPB Last administered on 08/19/16 13:17; Admin Dose 55 MLS/HR; Start 08/04/16 at 13: 00 Calcium Acetate (Phoslo) 667 mg Q6 NGT Last administered on 08/19/16 13:18; Admin Dose 667 MG; Start 08/05/16 at 08:30 Hydralazine HCl 10 mg 10 mg Q4H PRN IV ELEVATED SYSTOLIC BP Last administered on 08/15/16 12:05; Admin Dose 10 MG; Start 08/06/16 at 01:30 Levetiracetam/ Sodium Chloride (Keppra Iv/NS) 107.5 ml @ 420 mls/hr DAILY IVPB Last administered on 08/19/16 08:13; Admin Dose 420 MLS/HR; Start 08/08/16 at 09:00 Sodium Bicarbonate (Sodium Bicarbonate Tab) 650 mg Q8 PO Last administered on 13:17; Admin Dose 650 MG; Start 08/08/16 at 14:00 Eye Lubricant (Artificial Tears Oph) 2 drop TID BOTH EYES Last administered on 08/19/16 13:20; Admin Dose 2 DROP; Start 08/13/16 at 09:00 Metoprolol Tartrate (Lopressor) 50 mg BID NGT Last administered on 08/19/16 08 :14; Admin Dose 50 MG; Start 08/15/16 at 21:00 Amiodarone HCl (Cordarone) 200 mg DAILY NGT Last administered on 08/19/16 08: 14; Admin Dose 200 MG; Start 08/18/16 at 09:00 Lansoprazole (Prevacid) 30 mg DAILY@06 NGT Last administered on 08/19/16 05:00 ; Admin Dose 30 MG; Start 08/18/16 at 06:00 Insulin Aspart (Novolog Insulin Pen) NOVOLOG *MODERATE* ALGORI... Q6 SC Last administered on 08/19/16t 13:19; Admin Dose 4 UNIT; Start 08/19/16 at 00:00 Warfarin Sodium (Coumadin) 5 mg DAILY@17 PO ; Start 08/19/16 at 17:00 Insulin Human NPH (Humulin N) 32 unit ,, SC ; Start 08/19/16 at 17:00 KARTHIK AARON MD Aug 19, 2016 15:02
[2016-08-19] MEDS: WARFARIN 5 MG TAB PO SCH (18:12)
--- NOTE | 2016-08-19 18:47 | PN ---
Date/Time of Note Date/Time of Note DATE: 08/19/16 TIME: 18:46 Assessment/Plan VTE Prophylaxis VTE Prophylaxis Intervention: heparin Lines/Catheters Urinary Cath still in place: No Assessment/Plan Chief Complaint/Hosp Course 1. PEA s/p cardiac arrest , etiology PEA due to hypoxia -Neuro on the case - -pt is s/p Trach/PEG and is not following commands 2. ESRD on HD - on serial Hemodialysis due to high BUN- plan for HD as per Renal , catheter has been changed recently 3. SIRS- still having fevers likely FINISH MIXER related -repeat Blood Cx's currently negative -continue to hold Abx as had been on Abx for 18 days, also having diarrhea but does not appear to be C Diff 4. VDRF - not able to wean off, s/p Tracheostomy now 5. Hypotension - cardiac shock vs septic shock - resolved 6. CHF - acute - diastolic vs systolic dysfunction - fluid to be removed via dialysis - monitor I/O's 7. Hx of hypertension - hold medications as patient is hypotensive 8. Type II DM-A1C at 7.3 -cont Lantus, NISS 9. GI ppx - protonix 10.. DVT ppx - heparin Dispo- CM to place in LTAC Problems: Subjective 24 Hr Interval Summary Subjective hx not possible: pt non-verbal Exam/Review of Systems Vital Signs Vitals Vital Signs Date Time Temp Pulse Resp B/P Pulse Ox O2 Delivery O2 Flow Rate FiO2 08/19/16 17:53 93 16 95 30 08/19/16 15:20 99.2 175/91 08/18/16 06:15 Mechanical Ventilator Intake and Output 08/18/16 08/18/16 08/19/16 15:00 23:00 07:00 Intake Total 57.5 ml 705 ml 865.0 ml Output Total 100 ml Balance 57.5 ml 705 ml 765.0 ml Exam Constitutional: non-verbal Respiratory: clear to auscultation Cardiovascular: regular rate and rhythm Gastrointestinal: soft, No distended Musculoskeletal: nl extremities to inspection Results Result Diagram: 08/19/16 0604 08/19/16 0604 Results 24 hrs Laboratory Tests Test 08/18/16 20:10 08/18/16 23:55 08/19/16 04:54 08/19/16 06:04 Bedside Glucose 236 H 256 H 248 H Anion Gap 33 H Basophils # 0.0 Basophils % 0.3 Blood Morphology Comment Blood Urea Nitrogen 131 #H Calcium Level 8.5 Carbon Dioxide Level 21 Chloride Level 95 L Creatinine 8.95 #H Eosinophils # 0.4 Eosinophils % 2.4 Glucose Level 215 # Hematocrit 29.7 L Hemoglobin 10.1 L Lymphocytes # 2.1 Lymphocytes % 11.9 L Mean Corpuscular Hemoglobin 31.6 Mean Corpuscular Hemoglobin Concent 33.9 Mean Corpuscular Volume 93.1 Mean Platelet Volume 8.8 Monocytes # 1.5 H Monocytes % 8.3 Neutrophils # 13.4 H Neutrophils % 77.1 H Nucleated Red Blood Cells # 0.0 Nucleated Red Blood Cells % 0.0 Platelet Count 339 Potassium Level 5.1 Prealbumin 33.4 Red Blood Count 3.19 L Red Cell Distribution Width 15.2 H Sodium Level 144 White Blood Count 17.4 H Test 08/19/16 08:38 08/19/16 09:35 08/19/16 12:03 08/19/16 18:05 Bedside Glucose 235 H 202 259 H INR International Normalized Ratio 1.11 Prothrombin Time 14.3 H Prothrombin Time Ratio 1.1 Medications Medications Current Medications Labetalol HCl (Labetalol) 10 mg Q6H PRN IV sbp > 160 Last administered on 18:33; Admin Dose 10 MG; Start 07/28/16 at 00:30 Acetaminophen (Tylenol Supp) 650 mg Q6H PRN OR PAIN AND OR ELEVATED TEMP Last administered on 07/31/16 17:30; Admin Dose 650 MG; Start 07/28/16 at 08:30 Miscellaneous Information 1 ea NOTE XX ; Start 07/28/16 at 09:00 Glucose (Glutose) 15 gm Q15M PRN PO DECREASED GLUCOSE; Start 07/28/16 at 09:00 Glucose (Glutose) 22.5 gm Q15M PRN PO DECREASED GLUCOSE; Start 07/28/16 at 09: 00 Dextrose (D50w Syringe) 25 ml Q15M PRN IV DECREASED GLUCOSE; Start 07/28/16 at 09:00 Dextrose (D50w Syringe) 50 ml Q15M PRN IV DECREASED GLUCOSE; Start 07/28/16 at 09:00 Glucagon (Glucagen) 1 mg Q15M PRN IM DECREASED GLUCOSE; Start 07/28/16 at 09:00 Glucose (Glutose) 15 gm Q15M PRN BUCCAL DECREASED GLUCOSE; Start 07/28/16 at 09 :00 IV Flush (NS 10 ml) 10 ml PRN PRN IV IV PROTOCOL; Start 07/29/16 at 17:00 Morphine Sulfate (morphine) 2 mg Q4 PRN IV PAIN Last administered on 08/12/16 23:38; Admin Dose 2 MG; Start 07/31/16 at 12:00 Lorazepam (Ativan) 1 mg Q1H PRN IV SEIZURES Last administered on 08/11/16 12:25 ; Admin Dose 1 MG; Start 08/02/16 at 02:00 Acetaminophen 650 mg 650 mg Q4H PRN NGT PAIN AND OR ELEVATED TEMP Last administered on 08/19/16 08:13; Admin Dose 650 MG; Start 08/03/16 at 00:00 Valproate Sodium/ Sodium Chloride (Depacon/NS) 57.5 ml @ 55 mls/hr Q6 IVPB Last administered on 08/19/16 18:12; Admin Dose 55 MLS/HR; Start 08/04/16 at 13: 00 Calcium Acetate (Phoslo) 667 mg Q6 NGT Last administered on 08/19/16 18:12; Admin Dose 667 MG; Start 08/05/16 at 08:30 Hydralazine HCl 10 mg 10 mg Q4H PRN IV ELEVATED SYSTOLIC BP Last administered on 08/15/16 12:05; Admin Dose 10 MG; Start 08/06/16 at 01:30 Levetiracetam/ Sodium Chloride (Keppra Iv/NS) 107.5 ml @ 420 mls/hr DAILY IVPB Last administered on 08/19/16 08:13; Admin Dose 420 MLS/HR; Start 08/08/16 at 09:00 Sodium Bicarbonate (Sodium Bicarbonate Tab) 650 mg Q8 PO Last administered on 13:17; Admin Dose 650 MG; Start 08/08/16 at 14:00 Eye Lubricant (Artificial Tears Oph) 2 drop TID BOTH EYES Last administered on 08/19/16 13:20; Admin Dose 2 DROP; Start 08/13/16 at 09:00 Metoprolol Tartrate (Lopressor) 50 mg BID NGT Last administered on 08/19/16 08 :14; Admin Dose 50 MG; Start 08/15/16 at 21:00 Amiodarone HCl (Cordarone) 200 mg DAILY NGT Last administered on 08/19/16 08: 14; Admin Dose 200 MG; Start 08/18/16 at 09:00 Lansoprazole (Prevacid) 30 mg DAILY@06 NGT Last administered on 08/19/16 05:00 ; Admin Dose 30 MG; Start 08/18/16 at 06:00 Insulin Aspart (Novolog Insulin Pen) NOVOLOG *MODERATE* ALGORI... Q6 SC Last administered on 08/19/16 18:21; Admin Dose 6 UNIT; Start 08/19/16 at 00:00 Warfarin Sodium (Coumadin) 5 mg DAILY@17 PO Last administered on 08/19/16 18: 12; Admin Dose 5 MG; Start 08/19/16 at 17:00 Insulin Human NPH (Humulin N) 32 unit ,, SC Last administered on 18:21; Admin Dose 32 UNIT; Start 08/19/16 at 17:00 BARNEY MCKEE Aug 19, 2016 18:47
--- NOTE | 2016-08-19 19:11 | PN ---
Date/Time of Note Date/Time of Note DATE: 08/19/16 TIME: 19:11 Assessment/Plan Lines/Catheters Lorenz in Place (from Nrsg): No Assessment/Plan Chief Complaint/Hosp Course Respiratory Failure SP tracheostomy will continue trach care vent support Problems: Subjective 24 Hr Interval Summary Constitutional: improved Pain Control: mild Exam/Review of Systems Vital Signs Vitals Vital Signs Date Time Temp Pulse Resp B/P Pulse Ox O2 Delivery O2 Flow Rate FiO2 08/19/16 17:53 93 16 95 30 08/19/16 15:20 99.2 175/91 08/18/16 06:15 Mechanical Ventilator Intake and Output 08/18/16 08/18/16 08/19/16 15:00 23:00 07:00 Intake Total 57.5 ml 705 ml 865.0 ml Output Total 100 ml Balance 57.5 ml 705 ml 765.0 ml Exam ENMT: mucosa pink and moist, nl external ears & nose, nl lips & teeth, nl nasal mucosa & septum Neck: non-tender, supple Respiratory: clear to auscultation, normal air movement Results Result Diagram: 08/19/16 0604 08/19/1604 ARMEN BADILLO MD Aug 19, 2016 19:11
[2016-08-20] VITALS (37 sets, daily range): BP systolic 88–171; BP diastolic 51–85; PULSE 93–107; RESP 16–21
[2016-08-20] MEDS: ALBUTEROL HFA 8 GM INHALER INH SCH ×6 (01:26→20:14)
[2016-08-20] MEDS: IPRATROPIUM (HFA) 12.9 GM INHALER INH SCH ×6 (01:27→20:14)
[2016-08-20] MEDS: NA BICARBONATE 650 MG TAB PO SCH ×3 (05:00→21:19)
[2016-08-20] MEDS: CALCIUM ACETATE 667 MG CAP NGT SCH ×3 (05:00→18:05)
[2016-08-20] MEDS: VALPROATE INJ 750 MG in SOD CHLORIDE 0.9% 50 ML IVPB SCH ×4 (05:00→23:32)
[2016-08-20] MEDS: LANSOPRAZOLE 30 MG CAP NGT SCH (05:00)
[2016-08-20] MEDS: INSULIN ASPART [NOVOLOG] 3 ML PEN SC SCH ×3 (05:04→18:19)
[2016-08-20 06:24] LABS: BASOPHILS % 0.2 % (0.0-2.0); EOSINOPHILS # 0.3 10^3/ul (0.0-0.5); EOSINOPHILS % 2.6 % (0.0-7.0); HEMATOCRIT 36.9 % (42.0-52.0); HEMOGLOBIN 12.5 g/dl (14.0-18.0); LYMPHOCYTES # 1.3 10^3/ul (0.8-2.9); LYMPHOCYTES % 10.9 % (15.0-51.0); MEAN CORPUSCULAR HEMOGLOBIN 31.3 pg (29.0-33.0); MEAN CORPUSCULAR HGB CONC 33.8 g/dl (32.0-37.0); MEAN CORPUSCULAR VOLUME 92.7 fl (82.0-101.0); MEAN PLATELET VOLUME 8.6 fl (7.4-10.4); MONOCYTES % 8.4 % (0.0-11.0); NEUTROPHIL # 9.1 10^3/ul (1.6-7.5); NEUTROPHILS % 77.9 % (39.0-77.0); PLATELET COUNT 268 10^3/UL (140-440); RED BLOOD COUNT 3.98 10^6/ul (4.70-6.10); RED CELL DISTRIBUTION WIDTH 15.7 % (11.5-14.5); UNCORRECTED WBC 11.7 10^3/ul (4.8-10.8); WHITE BLOOD COUNT 11.7 10^3/ul (4.8-10.8)
[2016-08-20] MEDS: hydrALAzine 20 MG INJ IV PRN (06:30)
[2016-08-20] MEDS: ACETAMINOPHEN 650MG/20.3ML CUP NGT PRN ×2 (06:30→10:56)
[2016-08-20 06:31] LABS: CONDITION 1; LH ANALYZER COMMENTS 1
[2016-08-20 07:09] LABS: POTASSIUM 4.9 mmol/L (3.5-5.1)
[2016-08-20 07:12] LABS: CALCIUM 8.6 mg/dl (8.4-10.2)
[2016-08-20 07:22] LABS: CREATININE 7.58 mg/dl (0.61-1.24)
[2016-08-20] MEDS: BUDESONIDE (NEB) 0.5MG/2ML AMP HHN SCH ×2 (08:00→20:00)
[2016-08-20] MEDS: ARFORMOTEROL TARTRATE 15MCG/2 ML AMP NEB SCH ×2 (08:02→20:00)
[2016-08-20] MEDS: AMIODARONE 200 MG TAB NGT SCH (08:13)
[2016-08-20] MEDS: METOPROLOL 50 MG TAB NGT SCH ×2 (08:14→21:20)
[2016-08-20] MEDS: ARTIFICIAL TEARS 15 ML OPH BOTH EYES SCH ×3 (08:14→21:19)
[2016-08-20] MEDS: LEVETIRACETAM IV 750 MG in SOD CHLORIDE 0.9% 100 ML IVPB SCH (08:14)
[2016-08-20] MEDS: NPH, HUMAN INSULIN ISOPHANE 3ML VIAL SC SCH ×2 (09:04→18:19)
[2016-08-20 10:06] LABS: INR 1.3; PROTIME 16.3 Sec (12.2-14.2); PT RATIO 1.3
--- NOTE | 2016-08-20 11:27 | CONS ---
Date/Time of Note Date/Time of Note DATE: 08/20/16 TIME: 11:26 Assessment/Plan Assessment/Plan Additional Assessment/Plan 1. Status quo, labs rev will plan in HD tomm Consultation Date/Type/Reason Admit Date/Time Jul 27, 2016 at 23:29 Initial Consult Date 08/17/16 Type of Consultation: Pulmonary Referring Provider: BARNEY MCKEE 24 HR Interval Summary Subjective hx not possible: other (family at bedside) Exam/Review of Systems Vital Signs Vitals Vital Signs Date Time Temp Pulse Resp B/P Pulse Ox O2 Delivery O2 Flow Rate FiO2 08/20/16 10:36 30 08/20/16 09:39 68 17 98 08/20/16 08:00 100.1 145/67 08/18/16 06:15 Mechanical Ventilator Intake and Output 08/19/16 08/19/16 08/20/16 15:00 23:00 07:00 Intake Total 1130 ml 980 ml Output Total 5000 ml Balance -3870 ml 980 ml Exam Neck: No jvd Respiratory: diminished breath sounds Cardiovascular: regular rate and rhythm Gastrointestinal: soft Neurological: unresponsive (to gentle tactile stim) Results Result Diagram: 08/20/16 0555 08/20/16 0555 Results 24 hrs Laboratory Tests Test 08/19/16 12:03 08/19/16 18:05 08/19/16 23:43 08/20/16 04:57 Bedside Glucose 202 259 H 256 H 238 H Test 08/20/16 05:55 08/20/16 09:25 Anion Gap 30 H Basophils # 0.0 Basophils % 0.2 Blood Morphology Comment Blood Urea Nitrogen 118 H Calcium Level 8.6 Carbon Dioxide Level 24 Chloride Level 93 L Creatinine 7.58 H Eosinophils # 0.3 Eosinophils % 2.6 Glucose Level 212 Hematocrit 36.9 #L Hemoglobin 12.5 #L Lymphocytes # 1.3 Lymphocytes % 10.9 L Mean Corpuscular Hemoglobin 31.3 Mean Corpuscular Hemoglobin Concent 33.8 Mean Corpuscular Volume 92.7 Mean Platelet Volume 8.6 Monocytes # 1.0 H Monocytes % 8.4 Neutrophils # 9.1 H Neutrophils % 77.9 H Nucleated Red Blood Cells # 0.0 Nucleated Red Blood Cells % 0.0 Platelet Count 268 # Potassium Level 4.9 Red Blood Count 3.98 #L Red Cell Distribution Width 15.7 H Sodium Level 142 White Blood Count 11.7 #H INR International Normalized Ratio 1.30 Prothrombin Time 16.3 H Prothrombin Time Ratio 1.3 Medications Medications Current Medications Labetalol HCl (Labetalol) 10 mg Q6H PRN IV sbp > 160 Last administered on 18:33; Admin Dose 10 MG; Start 07/28/16 at 00:30 Acetaminophen (Tylenol Supp) 650 mg Q6H PRN [place] PAIN AND OR ELEVATED TEMP Last administered on 07/31/16 17:30; Admin Dose 650 MG; Start 07/28/16 at 08:30 Miscellaneous Information 1 ea NOTE XX ; Start 07/28/16 at 09:00 Glucose (Glutose) 15 gm Q15M PRN PO DECREASED GLUCOSE; Start 07/28/16 at 09:00 Glucose (Glutose) 22.5 gm Q15M PRN PO DECREASED GLUCOSE; Start 07/28/16 at 09: 00 Dextrose (D50w Syringe) 25 ml Q15M PRN IV DECREASED GLUCOSE; Start 07/28/16 at 09:00 Dextrose (D50w Syringe) 50 ml Q15M PRN IV DECREASED GLUCOSE; Start 07/28/16 at 09:00 Glucagon (Glucagen) 1 mg Q15M PRN IM DECREASED GLUCOSE; Start 07/28/16 at 09:00 Glucose (Glutose) 15 gm Q15M PRN BUCCAL DECREASED GLUCOSE; Start 07/28/16 at 09 :00 IV Flush (NS 10 ml) 10 ml PRN PRN IV IV PROTOCOL; Start 07/29/16 at 17:00 Morphine Sulfate (morphine) 2 mg Q4 PRN IV PAIN Last administered on 08/12/16 23:38; Admin Dose 2 MG; Start 07/31/16 at 12:00 Lorazepam (Ativan) 1 mg Q1H PRN IV SEIZURES Last administered on 08/11/16 12:25 ; Admin Dose 1 MG; Start 08/02/16 at 02:00 Acetaminophen 650 mg 650 mg Q4H PRN NGT PAIN AND OR ELEVATED TEMP Last administered on 08/20/16 10:56; Admin Dose 650 MG; Start 08/03/16 at 00:00 Valproate Sodium/ Sodium Chloride (Depacon/NS) 57.5 ml @ 55 mls/hr Q6 IVPB Last administered on 08/20/16 05:00; Admin Dose 55 MLS/HR; Start 08/04/16 at 13: 00 Calcium Acetate (Phoslo) 667 mg Q6 NGT Last administered on 08/20/16 05:00; Admin Dose 667 MG; Start 08/05/16 at 08:30 Hydralazine HCl 10 mg 10 mg Q4H PRN IV ELEVATED SYSTOLIC BP Last administered on 08/20/16 06:30; Admin Dose 10 MG; Start 08/06/16 at 01:30 Levetiracetam/ Sodium Chloride (Keppra Iv/NS) 107.5 ml @ 420 mls/hr DAILY IVPB Last administered on 08/20/16 08:14; Admin Dose 420 MLS/HR; Start 08/08/16 at 09:00 Sodium Bicarbonate (Sodium Bicarbonate Tab) 650 mg Q8 PO Last administered on 05:00; Admin Dose 650 MG; Start 08/08/16 at 14:00 Eye Lubricant (Artificial Tears Oph) 2 drop TID BOTH EYES Last administered on 08/20/16 08:14; Admin Dose 2 DROP; Start 08/13/16 at 09:00 Metoprolol Tartrate (Lopressor) 50 mg BID NGT Last administered on 08/20/16 08 :14; Admin Dose 50 MG; Start 08/15/16 at 21:00 Amiodarone HCl (Cordarone) 200 mg DAILY NGT Last administered on 08/20/16 08: 13; Admin Dose 200 MG; Start 08/18/16 at 09:00 Lansoprazole (Prevacid) 30 mg DAILY@06 NGT Last administered on 08/20/16 05:00 ; Admin Dose 30 MG; Start 08/18/16 at 06:00 Insulin Aspart (Novolog Insulin Pen) NOVOLOG *MODERATE* ALGORI... Q6 SC Last administered on 08/20/16 05:04; Admin Dose 6 UNIT; Start 08/19/16 at 00:00 Warfarin Sodium (Coumadin) 5 mg DAILY@17 PO Last administered on 08/19/16 18: 12; Admin Dose 5 MG; Start 08/19/16 at 17:00 Insulin Human NPH (Humulin N) 32 unit ,, SC Last administered on 2/18/ 17at 09:04; Admin Dose 32 UNIT; Start 08/19/16 at 17:00 CECE WADE MD Aug 20, 2016 11:27
--- NOTE | 2016-08-20 17:14 | PN ---
Date/Time of Note Date/Time of Note DATE: 08/20/16 TIME: 17:14 Assessment/Plan Lines/Catheters IV Catheter Type (from Nrsg): PICC Line Lorenz in Place (from Nrsg): No Assessment/Plan Chief Complaint/Hosp Course Respiratory Failure SP tracheostomy will continue trach care vent support Problems: Subjective 24 Hr Interval Summary Constitutional: improved Pain Control: mild Exam/Review of Systems Vital Signs Vitals Vital Signs Date Time Temp Pulse Resp B/P Pulse Ox O2 Delivery O2 Flow Rate FiO2 08/20/16 17:04 96 08/20/16 16:43 16 08/20/16 15:37 97.4 96/63 98 08/20/16 15:05 30 08/18/16 06:15 Mechanical Ventilator Intake and Output 08/19/16 08/19/16 08/20/16 15:00 23:00 07:00 Intake Total 1130 ml 980 ml Output Total 5000 ml Balance -3870 ml 980 ml Exam ENMT: mucosa pink and moist, nl external ears & nose, nl lips & teeth, nl nasal mucosa & septum Neck: non-tender, supple Cardiovascular: nl pulses, regular rate and rhythm Results Result Diagram: 08/20/16 0555 08/20/16 0555 ARMEN BADILLO MD Aug 20, 2016 17:14
--- NOTE | 2016-08-20 17:59 | PN ---
Date/Time of Note Date/Time of Note DATE: 08/20/16 TIME: 17:50 Assessment/Plan VTE Prophylaxis VTE Prophylaxis Intervention: heparin Lines/Catheters Urinary Cath still in place: No Assessment/Plan Chief Complaint/Hosp Course 1. PEA s/p cardiac arrest , etiology PEA due to hypoxia -Neuro on the case - -pt is s/p Trach/PEG and is not following commands 2. ESRD on HD - on serial Hemodialysis due to high BUN- plan for HD as per Renal , catheter has been changed recently 3. SIRS- still having fevers likely LOSS PREVENTION COORDINATOR related -repeat Blood Cx's currently negative -continue to hold Abx as had been on Abx for 18 days, also having diarrhea but does not appear to be C Diff 4. VDRF - not able to wean off, s/p Tracheostomy now 5. Hypotension - cardiac shock vs septic shock - resolved 6. CHF - acute - diastolic vs systolic dysfunction - fluid to be removed via dialysis - monitor I/O's 7. Hx of hypertension - hold medications as patient is hypotensive 8. Type II DM-A1C at 7.3 -cont Lantus, NISS 9. GI ppx - protonix 10.. DVT ppx - heparin Dispo- CM to place in LTAC Problems: Subjective 24 Hr Interval Summary Subjective hx not possible: pt non-verbal Exam/Review of Systems Vital Signs Vitals Vital Signs Date Time Temp Pulse Resp B/P Pulse Ox O2 Delivery O2 Flow Rate FiO2 08/20/16 17:19 85 21 95 30 08/20/16 15:37 97.4 96/63 08/18/16 06:15 Mechanical Ventilator Intake and Output 08/19/16 08/19/16 08/20/16 15:00 23:00 07:00 Intake Total 1130 ml 980 ml Output Total 5000 ml Balance -3870 ml 980 ml Exam Constitutional: non-verbal Respiratory: clear to auscultation Cardiovascular: regular rate and rhythm Gastrointestinal: soft, No distended Musculoskeletal: nl extremities to inspection Results Result Diagram: 08/20/16 0555 08/20/16 0555 Results 24 hrs Laboratory Tests Test 08/19/16 18:05 08/19/16 23:43 08/20/16 04:57 08/20/16 05:55 Bedside Glucose 259 H 256 H 238 H Anion Gap 30 H Basophils # 0.0 Basophils % 0.2 Blood Morphology Comment Blood Urea Nitrogen 118 H Calcium Level 8.6 Carbon Dioxide Level 24 Chloride Level 93 L Creatinine 7.58 H Eosinophils # 0.3 Eosinophils % 2.6 Glucose Level 212 Hematocrit 36.9 #L Hemoglobin 12.5 #L Lymphocytes # 1.3 Lymphocytes % 10.9 L Mean Corpuscular Hemoglobin 31.3 Mean Corpuscular Hemoglobin Concent 33.8 Mean Corpuscular Volume 92.7 Mean Platelet Volume 8.6 Monocytes # 1.0 H Monocytes % 8.4 Neutrophils # 9.1 H Neutrophils % 77.9 H Nucleated Red Blood Cells # 0.0 Nucleated Red Blood Cells % 0.0 Platelet Count 268 # Potassium Level 4.9 Red Blood Count 3.98 #L Red Cell Distribution Width 15.7 H Sodium Level 142 White Blood Count 11.7 #H Test 08/20/16 09:25 08/20/16 12:02 INR International Normalized Ratio 1.30 Prothrombin Time 16.3 H Prothrombin Time Ratio 1.3 Bedside Glucose 238 H Medications Medications Current Medications Labetalol HCl (Labetalol) 10 mg Q6H PRN IV sbp > 160 Last administered on 18:33; Admin Dose 10 MG; Start 07/28/16 at 00:30 Acetaminophen (Tylenol Supp) 650 mg Q6H PRN [place] PAIN AND OR ELEVATED TEMP Last administered on 07/31/16 17:30; Admin Dose 650 MG; Start 07/28/16 at 08:30 Miscellaneous Information 1 ea NOTE XX ; Start 07/28/16 at 09:00 Glucose (Glutose) 15 gm Q15M PRN PO DECREASED GLUCOSE; Start 07/28/16 at 09:00 Glucose (Glutose) 22.5 gm Q15M PRN PO DECREASED GLUCOSE; Start 07/28/16 at 09: 00 Dextrose (D50w Syringe) 25 ml Q15M PRN IV DECREASED GLUCOSE; Start 07/28/16 at 09:00 Dextrose (D50w Syringe) 50 ml Q15M PRN IV DECREASED GLUCOSE; Start 07/28/16 at 09:00 Glucagon (Glucagen) 1 mg Q15M PRN IM DECREASED GLUCOSE; Start 07/28/16 at 09:00 Glucose (Glutose) 15 gm Q15M PRN BUCCAL DECREASED GLUCOSE; Start 07/28/16 at 09 :00 IV Flush (NS 10 ml) 10 ml PRN PRN IV IV PROTOCOL; Start 07/29/16 at 17:00 Morphine Sulfate (morphine) 2 mg Q4 PRN IV PAIN Last administered on 08/12/16 23:38; Admin Dose 2 MG; Start 07/31/16 at 12:00 Lorazepam (Ativan) 1 mg Q1H PRN IV SEIZURES Last administered on 08/11/16 12:25 ; Admin Dose 1 MG; Start 08/02/16 at 02:00 Acetaminophen 650 mg 650 mg Q4H PRN NGT PAIN AND OR ELEVATED TEMP Last administered on 08/20/16 10:56; Admin Dose 650 MG; Start 08/03/16 at 00:00 Valproate Sodium/ Sodium Chloride (Depacon/NS) 57.5 ml @ 55 mls/hr Q6 IVPB Last administered on 08/20/16 11:59; Admin Dose 55 MLS/HR; Start 08/04/16 at 13: 00 Calcium Acetate (Phoslo) 667 mg Q6 NGT Last administered on 08/20/16 11:59; Admin Dose 667 MG; Start 08/05/16 at 08:30 Hydralazine HCl 10 mg 10 mg Q4H PRN IV ELEVATED SYSTOLIC BP Last administered on 08/20/16 06:30; Admin Dose 10 MG; Start 08/06/16 at 01:30 Levetiracetam/ Sodium Chloride (Keppra Iv/NS) 107.5 ml @ 420 mls/hr DAILY IVPB Last administered on 08/20/16 08:14; Admin Dose 420 MLS/HR; Start 08/08/16 at 09:00 Sodium Bicarbonate (Sodium Bicarbonate Tab) 650 mg Q8 PO Last administered on 14:14; Admin Dose 650 MG; Start 08/08/16 at 14:00 Eye Lubricant (Artificial Tears Oph) 2 drop TID BOTH EYES Last administered on 08/20/16 12:03; Admin Dose 2 DROP; Start 08/13/16 at 09:00 Metoprolol Tartrate (Lopressor) 50 mg BID NGT Last administered on 08/20/16 08 :14; Admin Dose 50 MG; Start 08/15/16 at 21:00 Amiodarone HCl (Cordarone) 200 mg DAILY NGT Last administered on 08/20/16 08: 13; Admin Dose 200 MG; Start 08/18/16 at 09:00 Lansoprazole (Prevacid) 30 mg DAILY@06 NGT Last administered on 08/20/16 05:00 ; Admin Dose 30 MG; Start 08/18/16 at 06:00 Insulin Aspart (Novolog Insulin Pen) NOVOLOG *MODERATE* ALGORI... Q6 SC Last administered on 08/20/16 12:11; Admin Dose 6 UNIT; Start 08/19/16 at 00:00 Warfarin Sodium (Coumadin) 5 mg DAILY@17 PO Last administered on 08/19/16 18: 12; Admin Dose 5 MG; Start 08/19/16 at 17:00 Insulin Human NPH (Humulin N) 40 unit , SC ; Start 08/20/16 at 17:30 BARNEY MCKEE Aug 20, 2016 17:59
[2016-08-20] MEDS: WARFARIN 5 MG TAB PO SCH (18:05)
--- NOTE | 2016-08-20 18:58 | CONS ---
Date/Time of Note Date/Time of Note DATE: 08/20/16 TIME: 18:55 Assessment/Plan Assessment/Plan Problems: (1) Type 2 diabetes mellitus with hypertension and end stage renal disease on dialysis Status: Chronic Comment: On continuous tube feeds with suboptimal glycemic control. Total insulin correction dose yesterday 28 units/24 hours. Will adjust NPH dose to reflect the increased need. Consultation Date/Type/Reason Admit Date/Time Jul 27, 2016 at 23:29 Initial Consult Date 08/17/16 Type of Consultation: Endocrine Referring Provider: BARNEY MCKEE 24 HR Interval Summary Subjective hx not possible: pt non-verbal Exam/Review of Systems Vital Signs Vitals Vital Signs Date Time Temp Pulse Resp B/P Pulse Ox O2 Delivery O2 Flow Rate FiO2 08/20/16 17:19 85 21 95 30 08/20/16 15:37 97.4 96/63 08/18/16 06:15 Mechanical Ventilator Intake and Output 08/19/16 08/19/16 08/20/16 15:00 23:00 07:00 Intake Total 1130 ml 980 ml Output Total 5000 ml Balance -3870 ml 980 ml Exam Constitutional: non-verbal Respiratory: clear to auscultation Cardiovascular: nl pulses Gastrointestinal: soft Results POC Labs and vitals reviewed Result Diagram: 08/20/16 0555 08/20/16 0555 Results 24 hrs Laboratory Tests Test 08/19/16 23:43 08/20/16 04:57 08/20/16 05:55 08/20/16 09:25 Bedside Glucose 256 H 238 H Anion Gap 30 H Basophils # 0.0 Basophils % 0.2 Blood Morphology Comment Blood Urea Nitrogen 118 H Calcium Level 8.6 Carbon Dioxide Level 24 Chloride Level 93 L Creatinine 7.58 H Eosinophils # 0.3 Eosinophils % 2.6 Glucose Level 212 Hematocrit 36.9 #L Hemoglobin 12.5 #L Lymphocytes # 1.3 Lymphocytes % 10.9 L Mean Corpuscular Hemoglobin 31.3 Mean Corpuscular Hemoglobin Concent 33.8 Mean Corpuscular Volume 92.7 Mean Platelet Volume 8.6 Monocytes # 1.0 H Monocytes % 8.4 Neutrophils # 9.1 H Neutrophils % 77.9 H Nucleated Red Blood Cells # 0.0 Nucleated Red Blood Cells % 0.0 Platelet Count 268 # Potassium Level 4.9 Red Blood Count 3.98 #L Red Cell Distribution Width 15.7 H Sodium Level 142 White Blood Count 11.7 #H INR International Normalized Ratio 1.30 Prothrombin Time 16.3 H Prothrombin Time Ratio 1.3 Test 08/20/16 12:02 08/20/16 18:04 Bedside Glucose 238 H 202 Medications Medications Current Medications Labetalol HCl (Labetalol) 10 mg Q6H PRN IV sbp > 160 Last administered on 18:33; Admin Dose 10 MG; Start 07/28/16 at 00:30 Acetaminophen (Tylenol Supp) 650 mg Q6H PRN [place] PAIN AND OR ELEVATED TEMP Last administered on 07/31/16 17:30; Admin Dose 650 MG; Start 07/28/16 at 08:30 Miscellaneous Information 1 ea NOTE XX ; Start 07/28/16 at 09:00 Glucose (Glutose) 15 gm Q15M PRN PO DECREASED GLUCOSE; Start 07/28/16 at 09:00 Glucose (Glutose) 22.5 gm Q15M PRN PO DECREASED GLUCOSE; Start 07/28/16 at 09: 00 Dextrose (D50w Syringe) 25 ml Q15M PRN IV DECREASED GLUCOSE; Start 07/28/16 at 09:00 Dextrose (D50w Syringe) 50 ml Q15M PRN IV DECREASED GLUCOSE; Start 07/28/16 at 09:00 Glucagon (Glucagen) 1 mg Q15M PRN IM DECREASED GLUCOSE; Start 07/28/16 at 09:00 Glucose (Glutose) 15 gm Q15M PRN BUCCAL DECREASED GLUCOSE; Start 07/28/16 at 09 :00 IV Flush (NS 10 ml) 10 ml PRN PRN IV IV PROTOCOL; Start 07/29/16 at 17:00 Morphine Sulfate (morphine) 2 mg Q4 PRN IV PAIN Last administered on 08/12/16 23:38; Admin Dose 2 MG; Start 07/31/16 at 12:00 Lorazepam (Ativan) 1 mg Q1H PRN IV SEIZURES Last administered on 08/11/16 12:25 ; Admin Dose 1 MG; Start 08/02/16 at 02:00 Acetaminophen 650 mg 650 mg Q4H PRN NGT PAIN AND OR ELEVATED TEMP Last administered on 08/20/16 10:56; Admin Dose 650 MG; Start 08/03/16 at 00:00 Valproate Sodium/ Sodium Chloride (Depacon/NS) 57.5 ml @ 55 mls/hr Q6 IVPB Last administered on 08/20/16 18:06; Admin Dose 55 MLS/HR; Start 08/04/16 at 13: 00 Calcium Acetate (Phoslo) 667 mg Q6 NGT Last administered on 08/20/16 18:05; Admin Dose 667 MG; Start 08/05/16 at 08:30 Hydralazine HCl 10 mg 10 mg Q4H PRN IV ELEVATED SYSTOLIC BP Last administered on 08/20/16 06:30; Admin Dose 10 MG; Start 08/06/16 at 01:30 Levetiracetam/ Sodium Chloride (Keppra Iv/NS) 107.5 ml @ 420 mls/hr DAILY IVPB Last administered on 08/20/16 08:14; Admin Dose 420 MLS/HR; Start 08/08/16 at 09:00 Sodium Bicarbonate (Sodium Bicarbonate Tab) 650 mg Q8 PO Last administered on 14:14; Admin Dose 650 MG; Start 08/08/16 at 14:00 Eye Lubricant (Artificial Tears Oph) 2 drop TID BOTH EYES Last administered on 08/20/16 12:03; Admin Dose 2 DROP; Start 08/13/16 at 09:00 Metoprolol Tartrate (Lopressor) 50 mg BID NGT Last administered on 08/20/16 08 :14; Admin Dose 50 MG; Start 08/15/16 at 21:00 Amiodarone HCl (Cordarone) 200 mg DAILY NGT Last administered on 08/20/16 08: 13; Admin Dose 200 MG; Start 08/18/16 at 09:00 Lansoprazole (Prevacid) 30 mg DAILY@06 NGT Last administered on 08/20/16 05:00 ; Admin Dose 30 MG; Start 08/18/16 at 06:00 Insulin Aspart (Novolog Insulin Pen) NOVOLOG *MODERATE* ALGORI... Q6 SC Last administered on 08/20/16 18:19; Admin Dose 4 UNIT; Start 08/19/16 at 00:00 Warfarin Sodium (Coumadin) 5 mg DAILY@17 PO Last administered on 08/20/16 18: 05; Admin Dose 5 MG; Start 08/19/16 at 17:00 Insulin Human NPH (Humulin N) 40 unit ,, SC Last administered on t 18:19; Admin Dose 40 UNIT; Start 08/20/16 at 17:30 ARABELLA GA MD Aug 20, 2016 18:58
--- NOTE | 2016-08-20 19:34 | CONS ---
Date/Time of Note Date/Time of Note DATE: 08/20/16 TIME: 19:33 Consult Date/Type/Reason Admit Date/Time Jul 27, 2016 at 23:29 Initial Consult Date 07/28/16 Type of Consultation: pulm Ordering Provider: BARNEY MCKEE Subjective No events. On vent. Objective Vital Signs Date Time Temp Pulse Resp B/P Pulse Ox O2 Delivery O2 Flow Rate FiO2 08/20/16 17:19 85 21 95 30 08/20/16 15:37 97.4 96/63 08/18/16 06:15 Mechanical Ventilator Intake and Output 08/19/16 08/19/16 08/20/16 15:00 23:00 07:00 Intake Total 1130 ml 980 ml Output Total 5000 ml Balance -3870 ml 980 ml HEENT: Neck supple; no JVD; no LAD, trach clean CVS: RRR, S1 and S2 CHEST: Clear ABD: Soft, NT, + BS EXT: No c/c/e Results/Medications Result Diagram: 08/20/16 0555 08/20/16 0555 Results 24 hrs Laboratory Tests Test 08/19/16 23:43 08/20/16 04:57 08/20/16 05:55 08/20/16 09:25 Bedside Glucose 256 H 238 H Anion Gap 30 H Basophils # 0.0 Basophils % 0.2 Blood Morphology Comment Blood Urea Nitrogen 118 H Calcium Level 8.6 Carbon Dioxide Level 24 Chloride Level 93 L Creatinine 7.58 H Eosinophils # 0.3 Eosinophils % 2.6 Glucose Level 212 Hematocrit 36.9 #L Hemoglobin 12.5 #L Lymphocytes # 1.3 Lymphocytes % 10.9 L Mean Corpuscular Hemoglobin 31.3 Mean Corpuscular Hemoglobin Concent 33.8 Mean Corpuscular Volume 92.7 Mean Platelet Volume 8.6 Monocytes # 1.0 H Monocytes % 8.4 Neutrophils # 9.1 H Neutrophils % 77.9 H Nucleated Red Blood Cells # 0.0 Nucleated Red Blood Cells % 0.0 Platelet Count 268 # Potassium Level 4.9 Red Blood Count 3.98 #L Red Cell Distribution Width 15.7 H Sodium Level 142 White Blood Count 11.7 #H INR International Normalized Ratio 1.30 Prothrombin Time 16.3 H Prothrombin Time Ratio 1.3 Test 08/20/16 12:02 08/20/16 18:04 Bedside Glucose 238 H 202 Medications Current Medications Labetalol HCl (Labetalol) 10 mg Q6H PRN IV sbp > 160 Last administered on 18:33; Admin Dose 10 MG; Start 07/28/16 at 00:30 Acetaminophen (Tylenol Supp) 650 mg Q6H PRN [place] PAIN AND OR ELEVATED TEMP Last administered on 07/31/16 17:30; Admin Dose 650 MG; Start 07/28/16 at 08:30 Miscellaneous Information 1 ea NOTE XX ; Start 07/28/16 at 09:00 Glucose (Glutose) 15 gm Q15M PRN PO DECREASED GLUCOSE; Start 07/28/16 at 09:00 Glucose (Glutose) 22.5 gm Q15M PRN PO DECREASED GLUCOSE; Start 07/28/16 at 09: 00 Dextrose (D50w Syringe) 25 ml Q15M PRN IV DECREASED GLUCOSE; Start 07/28/16 at 09:00 Dextrose (D50w Syringe) 50 ml Q15M PRN IV DECREASED GLUCOSE; Start 07/28/16 at 09:00 Glucagon (Glucagen) 1 mg Q15M PRN IM DECREASED GLUCOSE; Start 07/28/16 at 09:00 Glucose (Glutose) 15 gm Q15M PRN BUCCAL DECREASED GLUCOSE; Start 07/28/16 at 09 :00 IV Flush (NS 10 ml) 10 ml PRN PRN IV IV PROTOCOL; Start 07/29/16 at 17:00 Morphine Sulfate (morphine) 2 mg Q4 PRN IV PAIN Last administered on 08/12/16 23:38; Admin Dose 2 MG; Start 07/31/16 at 12:00 Lorazepam (Ativan) 1 mg Q1H PRN IV SEIZURES Last administered on 08/11/16 12:25 ; Admin Dose 1 MG; Start 08/02/16 at 02:00 Acetaminophen 650 mg 650 mg Q4H PRN NGT PAIN AND OR ELEVATED TEMP Last administered on 08/20/16 10:56; Admin Dose 650 MG; Start 08/03/16 at 00:00 Valproate Sodium/ Sodium Chloride (Depacon/NS) 57.5 ml @ 55 mls/hr Q6 IVPB Last administered on 08/20/16 18:06; Admin Dose 55 MLS/HR; Start 08/04/16 at 13: 00 Calcium Acetate (Phoslo) 667 mg Q6 NGT Last administered on 08/20/16 18:05; Admin Dose 667 MG; Start 08/05/16 at 08:30 Hydralazine HCl 10 mg 10 mg Q4H PRN IV ELEVATED SYSTOLIC BP Last administered on 08/20/16 06:30; Admin Dose 10 MG; Start 08/06/16 at 01:30 Levetiracetam/ Sodium Chloride (Keppra Iv/NS) 107.5 ml @ 420 mls/hr DAILY IVPB Last administered on 08/20/16 08:14; Admin Dose 420 MLS/HR; Start 08/08/16 at 09:00 Sodium Bicarbonate (Sodium Bicarbonate Tab) 650 mg Q8 PO Last administered on 14:14; Admin Dose 650 MG; Start 08/08/16 at 14:00 Eye Lubricant (Artificial Tears Oph) 2 drop TID BOTH EYES Last administered on 08/20/16 12:03; Admin Dose 2 DROP; Start 08/13/16 at 09:00 Metoprolol Tartrate (Lopressor) 50 mg BID NGT Last administered on 08/20/16 08 :14; Admin Dose 50 MG; Start 08/15/16 at 21:00 Amiodarone HCl (Cordarone) 200 mg DAILY NGT Last administered on 08/20/16 08: 13; Admin Dose 200 MG; Start 08/18/16 at 09:00 Lansoprazole (Prevacid) 30 mg DAILY@06 NGT Last administered on 08/20/16 05:00 ; Admin Dose 30 MG; Start 08/18/16 at 06:00 Insulin Aspart (Novolog Insulin Pen) NOVOLOG *MODERATE* ALGORI... Q6 SC Last administered on 08/20/16 18:19; Admin Dose 4 UNIT; Start 08/19/16 at 00:00 Warfarin Sodium (Coumadin) 5 mg DAILY@17 PO Last administered on 08/20/16 18: 05; Admin Dose 5 MG; Start 08/19/16 at 17:00 Insulin Human NPH (Humulin N) 40 unit ,, SC Last administered on 18:19; Admin Dose 40 UNIT; Start 08/20/16 at 17:30 Assessment/Plan Additional Assessment/Plan IMPRESSION: 1. s/p Cardiopulmonary arrest. 2. Anoxic brain injury with anoxic seizures. 3. End-stage renal failure. Hyperkalemia with metabolic acidosis 4. No evidence of occlusive lesions on cardiac catheterization. 5. HTN heart Disease 6. Asthma RECS 1. Vent support 2. Stable for LTAC KAYLI ROBLES MD Aug 20, 2016 19:34
[2016-08-21] VITALS (25 sets, daily range): BP systolic 92–196; BP diastolic 54–74; PULSE 90–96; RESP 16–19
[2016-08-21] MEDS: CALCIUM ACETATE 667 MG CAP NGT SCH ×4 (00:06→17:51)
[2016-08-21] MEDS: ACETAMINOPHEN 650MG/20.3ML CUP NGT PRN ×2 (00:10→20:42)
[2016-08-21] MEDS: NPH, HUMAN INSULIN ISOPHANE 3ML VIAL SC SCH ×3 (00:14→17:53)
[2016-08-21] MEDS: INSULIN ASPART [NOVOLOG] 3 ML PEN SC SCH ×4 (00:14→17:55)
[2016-08-21] MEDS: IPRATROPIUM (HFA) 12.9 GM INHALER INH SCH ×6 (01:09→20:20)
[2016-08-21] MEDS: ALBUTEROL HFA 8 GM INHALER INH SCH ×6 (01:09→20:20)
[2016-08-21] MEDS: LANSOPRAZOLE 30 MG CAP NGT SCH (06:33)
[2016-08-21] MEDS: VALPROATE INJ 750 MG in SOD CHLORIDE 0.9% 50 ML IVPB SCH ×3 (06:33→17:55)
[2016-08-21] MEDS: NA BICARBONATE 650 MG TAB PO SCH ×3 (06:34→22:05)
[2016-08-21 06:55] LABS: BASOPHILS % 0.3 % (0.0-2.0); EOSINOPHILS # 0.3 10^3/ul (0.0-0.5); EOSINOPHILS % 1.9 % (0.0-7.0); HEMATOCRIT 28.2 % (42.0-52.0); HEMOGLOBIN 9.8 g/dl (14.0-18.0); LYMPHOCYTES # 1.7 10^3/ul (0.8-2.9); LYMPHOCYTES % 11.5 % (15.0-51.0); MEAN CORPUSCULAR HGB CONC 34.7 g/dl (32.0-37.0); MEAN CORPUSCULAR VOLUME 92.1 fl (82.0-101.0); MEAN PLATELET VOLUME 8.5 fl (7.4-10.4); MONOCYTE # 1.5 10^3/ul (0.3-0.9); MONOCYTES % 10.1 % (0.0-11.0); NEUTROPHIL # 11.5 10^3/ul (1.6-7.5); NEUTROPHILS % 76.2 % (39.0-77.0); PLATELET COUNT 277 10^3/UL (140-440); RED BLOOD COUNT 3.06 10^6/ul (4.70-6.10); RED CELL DISTRIBUTION WIDTH 15.5 % (11.5-14.5); UNCORRECTED WBC 15.1 10^3/ul (4.8-10.8); WHITE BLOOD COUNT 15.1 10^3/ul (4.8-10.8)
[2016-08-21 07:02] LABS: POTASSIUM 4.3 mmol/L (3.5-5.1)
[2016-08-21 07:06] LABS: CALCIUM 8.5 mg/dl (8.4-10.2)
[2016-08-21 07:17] LABS: CONDITION 1; CREATININE 5.89 mg/dl (0.61-1.24); LH ANALYZER COMMENTS 1
[2016-08-21] MEDS: ARTIFICIAL TEARS 15 ML OPH BOTH EYES SCH ×3 (08:54→20:41)
[2016-08-21] MEDS: LEVETIRACETAM IV 750 MG in SOD CHLORIDE 0.9% 100 ML IVPB SCH (08:55)
[2016-08-21] MEDS: AMIODARONE 200 MG TAB NGT SCH (08:55)
[2016-08-21] MEDS: METOPROLOL 50 MG TAB NGT SCH ×2 (08:55→20:42)
[2016-08-21] MEDS: ARFORMOTEROL TARTRATE 15MCG/2 ML AMP NEB SCH ×2 (09:10→20:04)
[2016-08-21] MEDS: BUDESONIDE (NEB) 0.5MG/2ML AMP HHN SCH ×2 (09:10→20:04)
[2016-08-21 09:44] LABS: INR 1.3; PROTIME 16.3 Sec (12.2-14.2); PT RATIO 1.3
--- NOTE | 2016-08-21 11:10 | CONS ---
Date/Time of Note Date/Time of Note DATE: 08/21/16 TIME: 11:09 Assessment/Plan Assessment/Plan Additional Assessment/Plan 1. Status quo, will plan on HD tomm. 2. No change in neuro status 3. Hct is stable Consultation Date/Type/Reason Admit Date/Time Jul 27, 2016 at 23:29 Initial Consult Date 08/17/16 Type of Consultation: pulm Referring Provider: BARNEY MCKEE 24 HR Interval Summary Subjective hx not possible: other (intubated and non responsive) Detailed Summary Cardiovascular: chest pain Exam/Review of Systems Vital Signs Vitals Vital Signs Date Time Temp Pulse Resp B/P Pulse Ox O2 Delivery O2 Flow Rate FiO2 08/21/16 10:21 30 08/21/16 08:24 91 08/21/16 08:08 99.3 18 119/59 94 08/18/16 06:15 Mechanical Ventilator Intake and Output 08/20/16 08/20/16 08/21/16 15:00 23:00 07:00 Intake Total 850 ml 617.5 ml Output Total 2500 ml 50 ml Balance -1650 ml 567.5 ml Exam Neck: No jvd Respiratory: diminished breath sounds Cardiovascular: regular rate and rhythm Gastrointestinal: soft Extremities: No edema Results Result Diagram: 08/21/16 0555 08/21/16 0555 Results 24 hrs Laboratory Tests Test 08/20/16 12:02 08/20/16 18:04 08/21/16 00:02 08/21/16 05:55 Bedside Glucose 238 H 202 234 H Anion Gap 23 #H Basophils # 0.0 Basophils % 0.3 Blood Morphology Comment Blood Urea Nitrogen 91 H Calcium Level 8.5 Carbon Dioxide Level 28 Chloride Level 92 L Creatinine 5.89 H Eosinophils # 0.3 Eosinophils % 1.9 Glucose Level 200 Hematocrit 28.2 #L Hemoglobin 9.8 #L Lymphocytes # 1.7 Lymphocytes % 11.5 L Mean Corpuscular Hemoglobin 32.0 Mean Corpuscular Hemoglobin Concent 34.7 Mean Corpuscular Volume 92.1 Mean Platelet Volume 8.5 Monocytes # 1.5 H Monocytes % 10.1 Neutrophils # 11.5 H Neutrophils % 76.2 Nucleated Red Blood Cells # 0.0 Nucleated Red Blood Cells % 0.0 Platelet Count 277 Potassium Level 4.3 Red Blood Count 3.06 #L Red Cell Distribution Width 15.5 H Sodium Level 139 White Blood Count 15.1 #H Test 08/21/16 06:41 08/21/16 08:45 Bedside Glucose 196 INR International Normalized Ratio 1.30 Prothrombin Time 16.3 H Prothrombin Time Ratio 1.3 Medications Medications Current Medications Labetalol HCl (Labetalol) 10 mg Q6H PRN IV sbp > 160 Last administered on 18:33; Admin Dose 10 MG; Start 07/28/16 at 00:30 Acetaminophen (Tylenol Supp) 650 mg Q6H PRN [place] PAIN AND OR ELEVATED TEMP Last administered on 07/31/16 17:30; Admin Dose 650 MG; Start 07/28/16 at 08:30 Miscellaneous Information 1 ea NOTE XX ; Start 07/28/16 at 09:00 Glucose (Glutose) 15 gm Q15M PRN PO DECREASED GLUCOSE; Start 07/28/16 at 09:00 Glucose (Glutose) 22.5 gm Q15M PRN PO DECREASED GLUCOSE; Start 07/28/16 at 09: 00 Dextrose (D50w Syringe) 25 ml Q15M PRN IV DECREASED GLUCOSE; Start 07/28/16 at 09:00 Dextrose (D50w Syringe) 50 ml Q15M PRN IV DECREASED GLUCOSE; Start 07/28/16 at 09:00 Glucagon (Glucagen) 1 mg Q15M PRN IM DECREASED GLUCOSE; Start 07/28/16 at 09:00 Glucose (Glutose) 15 gm Q15M PRN BUCCAL DECREASED GLUCOSE; Start 07/28/16 at 09 :00 IV Flush (NS 10 ml) 10 ml PRN PRN IV IV PROTOCOL; Start 07/29/16 at 17:00 Morphine Sulfate (morphine) 2 mg Q4 PRN IV PAIN Last administered on 08/12/16 23:38; Admin Dose 2 MG; Start 07/31/16 at 12:00 Lorazepam (Ativan) 1 mg Q1H PRN IV SEIZURES Last administered on 08/11/16 12:25 ; Admin Dose 1 MG; Start 08/02/16 at 02:00 Acetaminophen 650 mg 650 mg Q4H PRN NGT PAIN AND OR ELEVATED TEMP Last administered on 08/21/16 00:10; Admin Dose 650 MG; Start 08/03/16 at 00:00 Valproate Sodium/ Sodium Chloride (Depacon/NS) 57.5 ml @ 55 mls/hr Q6 IVPB Last administered on 08/21/16 06:33; Admin Dose 55 MLS/HR; Start 08/04/16 at 13: 00 Calcium Acetate (Phoslo) 667 mg Q6 NGT Last administered on 08/21/16 06:33; Admin Dose 667 MG; Start 08/05/16 at 08:30 Hydralazine HCl 10 mg 10 mg Q4H PRN IV ELEVATED SYSTOLIC BP Last administered on 08/20/16 06:30; Admin Dose 10 MG; Start 08/06/16 at 01:30 Levetiracetam/ Sodium Chloride (Keppra Iv/NS) 107.5 ml @ 420 mls/hr DAILY IVPB Last administered on 08/21/16 08:55; Admin Dose 420 MLS/HR; Start 08/08/16 at 09:00 Sodium Bicarbonate (Sodium Bicarbonate Tab) 650 mg Q8 PO Last administered on 06:34; Admin Dose 650 MG; Start 08/08/16 at 14:00 Eye Lubricant (Artificial Tears Oph) 2 drop TID BOTH EYES Last administered on 08/21/16 08:54; Admin Dose 2 DROP; Start 08/13/16 at 09:00 Metoprolol Tartrate (Lopressor) 50 mg BID NGT Last administered on 08/21/16 08 :55; Admin Dose 50 MG; Start 08/15/16 at 21:00 Amiodarone HCl (Cordarone) 200 mg DAILY NGT Last administered on 08/21/16 08: 55; Admin Dose 200 MG; Start 08/18/16 at 09:00 Lansoprazole (Prevacid) 30 mg DAILY@06 NGT Last administered on 08/21/16 06:33 ; Admin Dose 30 MG; Start 08/18/16 at 06:00 Insulin Aspart (Novolog Insulin Pen) NOVOLOG *MODERATE* ALGORI... Q6 SC Last administered on 08/21/16 06:43; Admin Dose 4 UNIT; Start 08/19/16 at 00:00 Warfarin Sodium (Coumadin) 5 mg DAILY@17 PO Last administered on 08/20/16 18: 05; Admin Dose 5 MG; Start 08/19/16 at 17:00 Insulin Human NPH (Humulin N) 40 unit 01, SC Last administered on t 09:10; Admin Dose 40 UNIT; Start 08/20/16 at 17:30 CECE WADE MD Aug 21, 2016 11:10
--- NOTE | 2016-08-21 15:05 | PN ---
Date/Time of Note Date/Time of Note DATE: 08/21/16 TIME: 15:03 Assessment/Plan VTE Prophylaxis VTE Prophylaxis Intervention: heparin Lines/Catheters Urinary Cath still in place: No Assessment/Plan Chief Complaint/Hosp Course 1. PEA s/p cardiac arrest , etiology PEA due to hypoxia -Neuro on the case - -pt is s/p Trach/PEG and is not following commands 2. ESRD on HD - on serial Hemodialysis due to high BUN- plan for HD as per Renal , catheter has been changed recently 3. SIRS- still having fevers likely [employer] related -repeat Blood Cx's currently negative -continue to hold Abx as had been on Abx for 18 days, having diarrhea but is negative for C Diff 4. VDRF - not able to wean off, s/p Tracheostomy now 5. Hypotension - cardiac shock vs septic shock - resolved 6. CHF - acute - diastolic vs systolic dysfunction - fluid to be removed via dialysis - monitor I/O's 7. Hx of hypertension - hold medications as patient is hypotensive 8. Type II DM-A1C at 7.3 -cont Lantus, NISS 9. GI ppx - protonix 10.. DVT ppx - heparin Dispo- CM to place in LTAC Problems: Subjective 24 Hr Interval Summary Subjective hx not possible: pt non-verbal Exam/Review of Systems Vital Signs Vitals Vital Signs Date Time Temp Pulse Resp B/P Pulse Ox O2 Delivery O2 Flow Rate FiO2 08/21/16 12:15 90 08/21/16 12:08 98.4 18 128/64 94 08/21/16 10:21 30 08/18/16 06:15 Mechanical Ventilator Intake and Output 08/20/16 08/20/16 08/21/16 15:00 23:00 07:00 Intake Total 850 ml 617.5 ml Output Total 2500 ml 50 ml Balance -1650 ml 567.5 ml Exam Constitutional: non-verbal Respiratory: clear to auscultation Cardiovascular: regular rate and rhythm Gastrointestinal: soft, No distended Musculoskeletal: nl extremities to inspection Results Result Diagram: 08/21/16 0555 08/21/16 0555 Results 24 hrs Laboratory Tests Test 08/20/16 18:04 08/21/16 00:02 08/21/16 05:55 08/21/16 06:41 Bedside Glucose 202 234 H 196 Anion Gap 23 #H Basophils # 0.0 Basophils % 0.3 Blood Morphology Comment Blood Urea Nitrogen 91 H Calcium Level 8.5 Carbon Dioxide Level 28 Chloride Level 92 L Creatinine 5.89 H Eosinophils # 0.3 Eosinophils % 1.9 Glucose Level 200 Hematocrit 28.2 #L Hemoglobin 9.8 #L Lymphocytes # 1.7 Lymphocytes % 11.5 L Mean Corpuscular Hemoglobin 32.0 Mean Corpuscular Hemoglobin Concent 34.7 Mean Corpuscular Volume 92.1 Mean Platelet Volume 8.5 Monocytes # 1.5 H Monocytes % 10.1 Neutrophils # 11.5 H Neutrophils % 76.2 Nucleated Red Blood Cells # 0.0 Nucleated Red Blood Cells % 0.0 Platelet Count 277 Potassium Level 4.3 Red Blood Count 3.06 #L Red Cell Distribution Width 15.5 H Sodium Level 139 White Blood Count 15.1 #H Test 08/21/16 08:45 08/21/16 11:55 INR International Normalized Ratio 1.30 Prothrombin Time 16.3 H Prothrombin Time Ratio 1.3 Bedside Glucose 177 Medications Medications Current Medications Labetalol HCl (Labetalol) 10 mg Q6H PRN IV sbp > 160 Last administered on 18:33; Admin Dose 10 MG; Start 07/28/16 at 00:30 Acetaminophen (Tylenol Supp) 650 mg Q6H PRN [place] PAIN AND OR ELEVATED TEMP Last administered on 07/31/16 17:30; Admin Dose 650 MG; Start 07/28/16 at 08:30 Miscellaneous Information 1 ea NOTE XX ; Start 07/28/16 at 09:00 Glucose (Glutose) 15 gm Q15M PRN PO DECREASED GLUCOSE; Start 07/28/16 at 09:00 Glucose (Glutose) 22.5 gm Q15M PRN PO DECREASED GLUCOSE; Start 07/28/16 at 09: 00 Dextrose (D50w Syringe) 25 ml Q15M PRN IV DECREASED GLUCOSE; Start 07/28/16 at 09:00 Dextrose (D50w Syringe) 50 ml Q15M PRN IV DECREASED GLUCOSE; Start 07/28/16 at 09:00 Glucagon (Glucagen) 1 mg Q15M PRN IM DECREASED GLUCOSE; Start 07/28/16 at 09:00 Glucose (Glutose) 15 gm Q15M PRN BUCCAL DECREASED GLUCOSE; Start 07/28/16 at 09 :00 IV Flush (NS 10 ml) 10 ml PRN PRN IV IV PROTOCOL; Start 07/29/16 at 17:00 Morphine Sulfate (morphine) 2 mg Q4 PRN IV PAIN Last administered on 08/12/16 23:38; Admin Dose 2 MG; Start 07/31/16 at 12:00 Lorazepam (Ativan) 1 mg Q1H PRN IV SEIZURES Last administered on 08/11/16 12:25 ; Admin Dose 1 MG; Start 08/02/16 at 02:00 Acetaminophen 650 mg 650 mg Q4H PRN NGT PAIN AND OR ELEVATED TEMP Last administered on 08/21/16 00:10; Admin Dose 650 MG; Start 08/03/16 at 00:00 Valproate Sodium/ Sodium Chloride (Depacon/NS) 57.5 ml @ 55 mls/hr Q6 IVPB Last administered on 08/21/16 11:56; Admin Dose 55 MLS/HR; Start 08/04/16 at 13: 00 Calcium Acetate (Phoslo) 667 mg Q6 NGT Last administered on 08/21/16 11:56; Admin Dose 667 MG; Start 08/05/16 at 08:30 Hydralazine HCl 10 mg 10 mg Q4H PRN IV ELEVATED SYSTOLIC BP Last administered on 08/20/16 06:30; Admin Dose 10 MG; Start 08/06/16 at 01:30 Levetiracetam/ Sodium Chloride (Keppra Iv/NS) 107.5 ml @ 420 mls/hr DAILY IVPB Last administered on 08/21/16 08:55; Admin Dose 420 MLS/HR; Start 08/08/16 at 09:00 Sodium Bicarbonate (Sodium Bicarbonate Tab) 650 mg Q8 PO Last administered on 14:10; Admin Dose 650 MG; Start 08/08/16 at 14:00 Eye Lubricant (Artificial Tears Oph) 2 drop TID BOTH EYES Last administered on 08/21/16 12:08; Admin Dose 2 DROP; Start 08/13/16 at 09:00 Metoprolol Tartrate (Lopressor) 50 mg BID NGT Last administered on 08/21/16 08 :55; Admin Dose 50 MG; Start 08/15/16 at 21:00 Amiodarone HCl (Cordarone) 200 mg DAILY NGT Last administered on 08/21/16 08: 55; Admin Dose 200 MG; Start 08/18/16 at 09:00 Lansoprazole (Prevacid) 30 mg DAILY@06 NGT Last administered on 08/21/16 06:33 ; Admin Dose 30 MG; Start 08/18/16 at 06:00 Insulin Aspart (Novolog Insulin Pen) NOVOLOG *MODERATE* ALGORI... Q6 SC Last administered on 08/21/16 11:57; Admin Dose 2 UNIT; Start 08/19/16 at 00:00 Warfarin Sodium (Coumadin) 5 mg DAILY@17 PO Last administered on 08/20/16 18: 05; Admin Dose 5 MG; Start 08/19/16 at 17:00 Insulin Human NPH (Humulin N) 40 unit , SC Last administered on 09:10; Admin Dose 40 UNIT; Start 08/20/16 at 17:30 BARNEY MCKEE Aug 21, 2016 15:05
[2016-08-21] MEDS ORDERED: ZINC OXIDE 13% (DESITIN) CREAM 2 OZ TUBE TOP PRN (16:00)
--- NOTE | 2016-08-21 17:15 | CONS ---
Date/Time of Note Date/Time of Note DATE: 08/21/16 TIME: 14:00 Assessment/Plan Assessment/Plan Problems: (1) Type 2 diabetes mellitus with hypertension and end stage renal disease on dialysis Status: Chronic Comment: Better glycemic control with increased dose of Humulin N to cover continuous tube feeds Consultation Date/Type/Reason Admit Date/Time Jul 27, 2016 at 23:29 Initial Consult Date 08/17/16 Type of Consultation: endocrine Referring Provider: BARNEY MCKEE 24 HR Interval Summary Subjective hx not possible: pt non-verbal Exam/Review of Systems Vital Signs Vitals Vital Signs Date Time Temp Pulse Resp B/P Pulse Ox O2 Delivery O2 Flow Rate FiO2 08/21/16 16:30 98 16 95 30 08/21/16 15:50 99.1 92/54 08/18/16 06:15 Mechanical Ventilator Intake and Output 08/20/16 08/20/16 08/21/16 15:00 23:00 07:00 Intake Total 850 ml 617.5 ml Output Total 2500 ml 50 ml Balance -1650 ml 567.5 ml Exam Constitutional: non-verbal ENMT: intubated (tracheostomy in place) Respiratory: clear to auscultation Cardiovascular: regular rate and rhythm Gastrointestinal: soft Musculoskeletal: muscle tone (decreased) Results POC glucose reviewed Result Diagram: 08/21/16 0555 08/21/16 0555 Results 24 hrs Laboratory Tests Test 08/20/16 18:04 08/21/16 00:02 08/21/16 05:55 08/21/16 06:41 Bedside Glucose 202 234 H 196 Anion Gap 23 #H Basophils # 0.0 Basophils % 0.3 Blood Morphology Comment Blood Urea Nitrogen 91 H Calcium Level 8.5 Carbon Dioxide Level 28 Chloride Level 92 L Creatinine 5.89 H Eosinophils # 0.3 Eosinophils % 1.9 Glucose Level 200 Hematocrit 28.2 #L Hemoglobin 9.8 #L Lymphocytes # 1.7 Lymphocytes % 11.5 L Mean Corpuscular Hemoglobin 32.0 Mean Corpuscular Hemoglobin Concent 34.7 Mean Corpuscular Volume 92.1 Mean Platelet Volume 8.5 Monocytes # 1.5 H Monocytes % 10.1 Neutrophils # 11.5 H Neutrophils % 76.2 Nucleated Red Blood Cells # 0.0 Nucleated Red Blood Cells % 0.0 Platelet Count 277 Potassium Level 4.3 Red Blood Count 3.06 #L Red Cell Distribution Width 15.5 H Sodium Level 139 White Blood Count 15.1 #H Test 08/21/16 08:45 08/21/16 11:55 INR International Normalized Ratio 1.30 Prothrombin Time 16.3 H Prothrombin Time Ratio 1.3 Bedside Glucose 177 Medications Medications Current Medications Labetalol HCl (Labetalol) 10 mg Q6H PRN IV sbp > 160 Last administered on 18:33; Admin Dose 10 MG; Start 07/28/16 at 00:30 Acetaminophen (Tylenol Supp) 650 mg Q6H PRN [place] PAIN AND OR ELEVATED TEMP Last administered on 07/31/16 17:30; Admin Dose 650 MG; Start 07/28/16 at 08:30 Miscellaneous Information 1 ea NOTE XX ; Start 07/28/16 at 09:00 Glucose (Glutose) 15 gm Q15M PRN PO DECREASED GLUCOSE; Start 07/28/16 at 09:00 Glucose (Glutose) 22.5 gm Q15M PRN PO DECREASED GLUCOSE; Start 07/28/16 at 09: 00 Dextrose (D50w Syringe) 25 ml Q15M PRN IV DECREASED GLUCOSE; Start 07/28/16 at 09:00 Dextrose (D50w Syringe) 50 ml Q15M PRN IV DECREASED GLUCOSE; Start 07/28/16 at 09:00 Glucagon (Glucagen) 1 mg Q15M PRN IM DECREASED GLUCOSE; Start 07/28/16 at 09:00 Glucose (Glutose) 15 gm Q15M PRN BUCCAL DECREASED GLUCOSE; Start 07/28/16 at 09 :00 IV Flush (NS 10 ml) 10 ml PRN PRN IV IV PROTOCOL; Start 07/29/16 at 17:00 Morphine Sulfate (morphine) 2 mg Q4 PRN IV PAIN Last administered on 08/12/16 23:38; Admin Dose 2 MG; Start 07/31/16 at 12:00 Lorazepam (Ativan) 1 mg Q1H PRN IV SEIZURES Last administered on 08/11/16 12:25 ; Admin Dose 1 MG; Start 08/02/16 at 02:00 Acetaminophen 650 mg 650 mg Q4H PRN NGT PAIN AND OR ELEVATED TEMP Last administered on 08/21/16 00:10; Admin Dose 650 MG; Start 08/03/16 at 00:00 Valproate Sodium/ Sodium Chloride (Depacon/NS) 57.5 ml @ 55 mls/hr Q6 IVPB Last administered on 08/21/16 11:56; Admin Dose 55 MLS/HR; Start 08/04/16 at 13: 00 Calcium Acetate (Phoslo) 667 mg Q6 NGT Last administered on 08/21/16 11:56; Admin Dose 667 MG; Start 08/05/16 at 08:30 Hydralazine HCl 10 mg 10 mg Q4H PRN IV ELEVATED SYSTOLIC BP Last administered on 08/20/16 06:30; Admin Dose 10 MG; Start 08/06/16 at 01:30 Levetiracetam/ Sodium Chloride (Keppra Iv/NS) 107.5 ml @ 420 mls/hr DAILY IVPB Last administered on 08/21/16 08:55; Admin Dose 420 MLS/HR; Start 08/08/16 at 09:00 Sodium Bicarbonate (Sodium Bicarbonate Tab) 650 mg Q8 PO Last administered on 14:10; Admin Dose 650 MG; Start 08/08/16 at 14:00 Eye Lubricant (Artificial Tears Oph) 2 drop TID BOTH EYES Last administered on 08/21/16 12:08; Admin Dose 2 DROP; Start 08/13/16 at 09:00 Metoprolol Tartrate (Lopressor) 50 mg BID NGT Last administered on 08/21/16 08 :55; Admin Dose 50 MG; Start 08/15/16 at 21:00 Amiodarone HCl (Cordarone) 200 mg DAILY NGT Last administered on 08/21/16 08: 55; Admin Dose 200 MG; Start 08/18/16 at 09:00 Lansoprazole (Prevacid) 30 mg DAILY@06 NGT Last administered on 08/21/16 06:33 ; Admin Dose 30 MG; Start 08/18/16 at 06:00 Insulin Aspart (Novolog Insulin Pen) NOVOLOG *MODERATE* ALGORI... Q6 SC Last administered on 08/21/16 11:57; Admin Dose 2 UNIT; Start 08/19/16 at 00:00 Warfarin Sodium (Coumadin) 5 mg DAILY@17 PO Last administered on 08/20/16 18: 05; Admin Dose 5 MG; Start 08/19/16 at 17:00 Insulin Human NPH (Humulin N) 40 unit ,, SC Last administered on t 09:10; Admin Dose 40 UNIT; Start 08/20/16 at 17:30 Zinc Oxide (Desitin) 1 applic PRN PRN TOP RASH; Start 08/21/16 at 17:30 ARABELLA GA MD Aug 21, 2016 17:15
[2016-08-21] MEDS: WARFARIN 5 MG TAB PO SCH (17:51)
--- NOTE | 2016-08-21 18:35 | CONS ---
Date/Time of Note Date/Time of Note DATE: 08/21/16 TIME: 18:34 Consult Date/Type/Reason Admit Date/Time Jul 27, 2016 at 23:29 Initial Consult Date 07/28/16 Type of Consultation: endocrine Ordering Provider: BARNEY MCKEE Subjective No events overnight Objective Vital Signs Date Time Temp Pulse Resp B/P Pulse Ox O2 Delivery O2 Flow Rate FiO2 08/21/16 17:25 96 08/21/16 16:30 16 95 30 08/21/16 15:50 99.1 92/54 08/18/16 06:15 Mechanical Ventilator Intake and Output 08/20/16 08/20/16 08/21/16 15:00 23:00 07:00 Intake Total 850 ml 617.5 ml Output Total 2500 ml 50 ml Balance -1650 ml 567.5 ml HEENT: Neck supple; no JVD; no LAD, trach clean CVS: RRR, S1 and S2 CHEST: Clear ABD: Soft, NT, + BS EXT: No c/c/e Results/Medications Result Diagram: 08/21/16 0555 08/21/16 0555 Results 24 hrs Laboratory Tests Test 08/21/16 00:02 08/21/16 05:55 08/21/16 06:41 08/21/16 08:45 Bedside Glucose 234 H 196 Anion Gap 23 #H Basophils # 0.0 Basophils % 0.3 Blood Morphology Comment Blood Urea Nitrogen 91 H Calcium Level 8.5 Carbon Dioxide Level 28 Chloride Level 92 L Creatinine 5.89 H Eosinophils # 0.3 Eosinophils % 1.9 Glucose Level 200 Hematocrit 28.2 #L Hemoglobin 9.8 #L Lymphocytes # 1.7 Lymphocytes % 11.5 L Mean Corpuscular Hemoglobin 32.0 Mean Corpuscular Hemoglobin Concent 34.7 Mean Corpuscular Volume 92.1 Mean Platelet Volume 8.5 Monocytes # 1.5 H Monocytes % 10.1 Neutrophils # 11.5 H Neutrophils % 76.2 Nucleated Red Blood Cells # 0.0 Nucleated Red Blood Cells % 0.0 Platelet Count 277 Potassium Level 4.3 Red Blood Count 3.06 #L Red Cell Distribution Width 15.5 H Sodium Level 139 White Blood Count 15.1 #H INR International Normalized Ratio 1.30 Prothrombin Time 16.3 H Prothrombin Time Ratio 1.3 Test 08/21/16 11:55 08/21/16 17:40 Bedside Glucose 177 186 Medications Current Medications Labetalol HCl (Labetalol) 10 mg Q6H PRN IV sbp > 160 Last administered on 18:33; Admin Dose 10 MG; Start 07/28/16 at 00:30 Acetaminophen (Tylenol Supp) 650 mg Q6H PRN [place] PAIN AND OR ELEVATED TEMP Last administered on 07/31/16 17:30; Admin Dose 650 MG; Start 07/28/16 at 08:30 Miscellaneous Information 1 ea NOTE XX ; Start 07/28/16 at 09:00 Glucose (Glutose) 15 gm Q15M PRN PO DECREASED GLUCOSE; Start 07/28/16 at 09:00 Glucose (Glutose) 22.5 gm Q15M PRN PO DECREASED GLUCOSE; Start 07/28/16 at 09: 00 Dextrose (D50w Syringe) 25 ml Q15M PRN IV DECREASED GLUCOSE; Start 07/28/16 at 09:00 Dextrose (D50w Syringe) 50 ml Q15M PRN IV DECREASED GLUCOSE; Start 07/28/16 at 09:00 Glucagon (Glucagen) 1 mg Q15M PRN IM DECREASED GLUCOSE; Start 07/28/16 at 09:00 Glucose (Glutose) 15 gm Q15M PRN BUCCAL DECREASED GLUCOSE; Start 07/28/16 at 09 :00 IV Flush (NS 10 ml) 10 ml PRN PRN IV IV PROTOCOL; Start 07/29/16 at 17:00 Morphine Sulfate (morphine) 2 mg Q4 PRN IV PAIN Last administered on 08/12/16 23:38; Admin Dose 2 MG; Start 07/31/16 at 12:00 Lorazepam (Ativan) 1 mg Q1H PRN IV SEIZURES Last administered on 08/11/16 12:25 ; Admin Dose 1 MG; Start 08/02/16 at 02:00 Acetaminophen 650 mg 650 mg Q4H PRN NGT PAIN AND OR ELEVATED TEMP Last administered on 08/21/16 00:10; Admin Dose 650 MG; Start 08/03/16 at 00:00 Valproate Sodium/ Sodium Chloride (Depacon/NS) 57.5 ml @ 55 mls/hr Q6 IVPB Last administered on 08/21/16 17:55; Admin Dose 55 MLS/HR; Start 08/04/16 at 13: 00 Calcium Acetate (Phoslo) 667 mg Q6 NGT Last administered on 08/21/16 17:51; Admin Dose 667 MG; Start 08/05/16 at 08:30 Hydralazine HCl 10 mg 10 mg Q4H PRN IV ELEVATED SYSTOLIC BP Last administered on 08/20/16 06:30; Admin Dose 10 MG; Start 08/06/16 at 01:30 Levetiracetam/ Sodium Chloride (Keppra Iv/NS) 107.5 ml @ 420 mls/hr DAILY IVPB Last administered on 08/21/16 08:55; Admin Dose 420 MLS/HR; Start 08/08/16 at 09:00 Sodium Bicarbonate (Sodium Bicarbonate Tab) 650 mg Q8 PO Last administered on 14:10; Admin Dose 650 MG; Start 08/08/16 at 14:00 Eye Lubricant (Artificial Tears Oph) 2 drop TID BOTH EYES Last administered on 08/21/16 12:08; Admin Dose 2 DROP; Start 08/13/16 at 09:00 Metoprolol Tartrate (Lopressor) 50 mg BID NGT Last administered on 08/21/16 08 :55; Admin Dose 50 MG; Start 08/15/16 at 21:00 Amiodarone HCl (Cordarone) 200 mg DAILY NGT Last administered on 08/21/16 08: 55; Admin Dose 200 MG; Start 08/18/16 at 09:00 Lansoprazole (Prevacid) 30 mg DAILY@06 NGT Last administered on 08/21/16 06:33 ; Admin Dose 30 MG; Start 08/18/16 at 06:00 Insulin Aspart (Novolog Insulin Pen) NOVOLOG *MODERATE* ALGORI... Q6 SC Last administered on 08/21/16 17:55; Admin Dose 4 UNIT; Start 08/19/16 at 00:00 Warfarin Sodium (Coumadin) 5 mg DAILY@17 PO Last administered on 08/21/16 17: 51; Admin Dose 5 MG; Start 08/19/16 at 17:00 Insulin Human NPH (Humulin N) 40 unit ,, SC Last administered on 17:53; Admin Dose 40 UNIT; Start 08/20/16 at 17:30 Zinc Oxide (Desitin) 1 applic PRN PRN TOP RASH; Start 08/21/16 at 17:30 Assessment/Plan Additional Assessment/Plan IMPRESSION: 1. s/p Cardiopulmonary arrest. 2. Anoxic brain injury with anoxic seizures. 3. End-stage renal failure. Hyperkalemia with metabolic acidosis 4. No evidence of occlusive lesions on cardiac catheterization. 5. HTN heart Disease 6. Asthma RECS 1. Vent support 2. Stable for LTAC 3. HD/UF KAYLI ROBLES MD Aug 21, 2016 18:35
[2016-08-21] MEDS: ZINC OXIDE 13% (DESITIN) CREAM 2 OZ TUBE TOP PRN (20:56)
[2016-08-22] VITALS (29 sets, daily range): BP systolic 92–183; BP diastolic 55–82; PULSE 88–106; RESP 16–20
[2016-08-22] MEDS: CALCIUM ACETATE 667 MG CAP NGT SCH ×4 (00:12→18:01)
[2016-08-22] MEDS: VALPROATE INJ 750 MG in SOD CHLORIDE 0.9% 50 ML IVPB SCH ×4 (00:12→18:06)
[2016-08-22] MEDS: NPH, HUMAN INSULIN ISOPHANE 3ML VIAL SC SCH ×3 (00:21→18:05)
[2016-08-22] MEDS: INSULIN ASPART [NOVOLOG] 3 ML PEN SC SCH ×4 (00:21→18:06)
[2016-08-22] MEDS: ALBUTEROL HFA 8 GM INHALER INH SCH ×6 (01:07→21:09)
[2016-08-22] MEDS: IPRATROPIUM (HFA) 12.9 GM INHALER INH SCH ×6 (01:07→21:10)
[2016-08-22] MEDS: NA BICARBONATE 650 MG TAB PO SCH ×2 (05:51→13:59)
[2016-08-22] MEDS: LANSOPRAZOLE 30 MG CAP NGT SCH (05:51)
[2016-08-22 06:42] LABS: POTASSIUM 4.9 mmol/L (3.5-5.1)
[2016-08-22 06:45] LABS: CALCIUM 8.3 mg/dl (8.4-10.2)
[2016-08-22 06:56] LABS: CREATININE 7.9 mg/dl (0.61-1.24)
[2016-08-22 07:15] LABS: BASOPHILS % 0.3 % (0.0-2.0); EOSINOPHILS # 0.6 10^3/ul (0.0-0.5); EOSINOPHILS % 4.1 % (0.0-7.0); HEMATOCRIT 27.9 % (42.0-52.0); HEMOGLOBIN 9.6 g/dl (14.0-18.0); LYMPHOCYTES # 1.5 10^3/ul (0.8-2.9); LYMPHOCYTES % 10.2 % (15.0-51.0); MEAN CORPUSCULAR HEMOGLOBIN 31.7 pg (29.0-33.0); MEAN CORPUSCULAR HGB CONC 34.2 g/dl (32.0-37.0); MEAN CORPUSCULAR VOLUME 92.8 fl (82.0-101.0); MEAN PLATELET VOLUME 8.9 fl (7.4-10.4); MONOCYTE # 1.2 10^3/ul (0.3-0.9); MONOCYTES % 8.5 % (0.0-11.0); NEUTROPHIL # 11.1 10^3/ul (1.6-7.5); NEUTROPHILS % 76.9 % (39.0-77.0); PLATELET COUNT 270 10^3/UL (140-440); RED BLOOD COUNT 3.01 10^6/ul (4.70-6.10); RED CELL DISTRIBUTION WIDTH 15.4 % (11.5-14.5); UNCORRECTED WBC 14.5 10^3/ul (4.8-10.8); WHITE BLOOD COUNT 14.5 10^3/ul (4.8-10.8)
[2016-08-22 07:17] LABS: CONDITION 1; LH ANALYZER COMMENTS 1
--- NOTE | 2016-08-22 08:28 | CONS ---
Date/Time of Note Date/Time of Note DATE: 08/22/16 TIME: 08:24 Assessment/Plan Assessment/Plan Chief Complaint/Hosp Course #1 end-stage renal disease . He has hemodialysis ordered for today , will check labs for tomorrow . #2 the patient is status post a cardiac arrest at home #3 altered level of consciousness, probable anoxic encephalopathy. #4 insulin-dependent diabetes mellitus #5 seizures #6 ventilator dependent respiratory failure , h/o COPD and pneumonia on CXR . #7 hyperphosphatemia , calcium acetate is being given . #8 new onset A fib , he was cardioverted and now is off heparin drip because of bleeding around his trachea .. #9 dietary consult ordered , they recommend that tube feeding be decreased to 40 ml/hr . I will adjust rate . If BUN remains elevated , may need to decrease tube feeding further . Problems: Consultation Date/Type/Reason Admit Date/Time Jul 27, 2016 at 23:29 Initial Consult Date 07/28/16 Type of Consultation: renal Referring Provider: BARNEY MCKEE 24 HR Interval Summary Free Text/Dictation He is unresponsive , on a ventilator . Exam/Review of Systems Vital Signs Vitals Vital Signs Date Time Temp Pulse Resp B/P Pulse Ox O2 Delivery O2 Flow Rate FiO2 08/22/16 08:12 100.2 100 18 183/78 99 08/22/16 07:45 30 Intake and Output 08/21/16 08/21/16 08/22/16 15:00 23:00 07:00 Intake Total 57.5 ml 150 ml 677.5 ml Output Total 50 ml Balance 57.5 ml 150 ml 627.5 ml Exam Constitutional: non-verbal Respiratory: clear to auscultation, diminished breath sounds Cardiovascular: regular rate and rhythm Gastrointestinal: soft Musculoskeletal: nl extremities to inspection Results Result Diagram: 08/22/16 0544 08/22/16 0544 Results 24 hrs Laboratory Tests Test 08/21/16 08:45 08/21/16 11:55 08/21/16 17:40 08/22/16 00:11 INR International Normalized Ratio 1.30 Prothrombin Time 16.3 H Prothrombin Time Ratio 1.3 Bedside Glucose 177 186 193 Test 08/22/16 05:44 08/22/16 05:54 08/22/16 07:48 Anion Gap 29 H Basophils # 0.0 Basophils % 0.3 Blood Morphology Comment Blood Urea Nitrogen 128 #H Calcium Level 8.3 L Carbon Dioxide Level 24 Chloride Level 91 L Creatinine 7.90 #H Eosinophils # 0.6 H Eosinophils % 4.1 Glucose Level 195 Hematocrit 27.9 L Hemoglobin 9.6 L Lymphocytes # 1.5 Lymphocytes % 10.2 L Mean Corpuscular Hemoglobin 31.7 Mean Corpuscular Hemoglobin Concent 34.2 Mean Corpuscular Volume 92.8 Mean Platelet Volume 8.9 Monocytes # 1.2 H Monocytes % 8.5 Neutrophils # 11.1 H Neutrophils % 76.9 Nucleated Red Blood Cells # 0.0 Nucleated Red Blood Cells % 0.0 Platelet Count 270 Potassium Level 4.9 Red Blood Count 3.01 L Red Cell Distribution Width 15.4 H Sodium Level 139 White Blood Count 14.5 H Bedside Glucose 213 Lab Scanned Report REFERENCE LAB Medications Medications Current Medications Labetalol HCl (Labetalol) 10 mg Q6H PRN IV sbp > 160 Last administered on 18:33; Admin Dose 10 MG; Start 07/28/16 at 00:30 Acetaminophen (Tylenol Supp) 650 mg Q6H PRN [place] PAIN AND OR ELEVATED TEMP Last administered on 07/31/16 17:30; Admin Dose 650 MG; Start 07/28/16 at 08:30 Miscellaneous Information 1 ea NOTE XX ; Start 07/28/16 at 09:00 Glucose (Glutose) 15 gm Q15M PRN PO DECREASED GLUCOSE; Start 07/28/16 at 09:00 Glucose (Glutose) 22.5 gm Q15M PRN PO DECREASED GLUCOSE; Start 07/28/16 at 09: 00 Dextrose (D50w Syringe) 25 ml Q15M PRN IV DECREASED GLUCOSE; Start 07/28/16 at 09:00 Dextrose (D50w Syringe) 50 ml Q15M PRN IV DECREASED GLUCOSE; Start 07/28/16 at 09:00 Glucagon (Glucagen) 1 mg Q15M PRN IM DECREASED GLUCOSE; Start 07/28/16 at 09:00 Glucose (Glutose) 15 gm Q15M PRN BUCCAL DECREASED GLUCOSE; Start 07/28/16 at 09 :00 IV Flush (NS 10 ml) 10 ml PRN PRN IV IV PROTOCOL; Start 07/29/16 at 17:00 Morphine Sulfate (morphine) 2 mg Q4 PRN IV PAIN Last administered on 08/12/16 23:38; Admin Dose 2 MG; Start 07/31/16 at 12:00 Lorazepam (Ativan) 1 mg Q1H PRN IV SEIZURES Last administered on 08/11/16 12:25 ; Admin Dose 1 MG; Start 08/02/16 at 02:00 Acetaminophen 650 mg 650 mg Q4H PRN NGT PAIN AND OR ELEVATED TEMP Last administered on 08/21/16 20:42; Admin Dose 650 MG; Start 08/03/16 at 00:00 Valproate Sodium/ Sodium Chloride (Depacon/NS) 57.5 ml @ 55 mls/hr Q6 IVPB Last administered on 08/22/16 05:51; Admin Dose 55 MLS/HR; Start 08/04/16 at 13: 00 Calcium Acetate (Phoslo) 667 mg Q6 NGT Last administered on 08/22/16 05:51; Admin Dose 667 MG; Start 08/05/16 at 08:30 Hydralazine HCl 10 mg 10 mg Q4H PRN IV ELEVATED SYSTOLIC BP Last administered on 08/20/16 06:30; Admin Dose 10 MG; Start 08/06/16 at 01:30 Levetiracetam/ Sodium Chloride (Keppra Iv/NS) 107.5 ml @ 420 mls/hr DAILY IVPB Last administered on 08/21/16 08:55; Admin Dose 420 MLS/HR; Start 08/08/16 at 09:00 Sodium Bicarbonate (Sodium Bicarbonate Tab) 650 mg Q8 PO Last administered on 05:51; Admin Dose 650 MG; Start 08/08/16 at 14:00 Eye Lubricant (Artificial Tears Oph) 2 drop TID BOTH EYES Last administered on 08/21/16 20:41; Admin Dose 2 DROP; Start 08/13/16 at 09:00 Metoprolol Tartrate (Lopressor) 50 mg BID NGT Last administered on 08/21/16 20 :42; Admin Dose 50 MG; Start 08/15/16 at 21:00 Amiodarone HCl (Cordarone) 200 mg DAILY NGT Last administered on 08/21/16 08: 55; Admin Dose 200 MG; Start 08/18/16 at 09:00 Lansoprazole (Prevacid) 30 mg DAILY@06 NGT Last administered on 08/22/16 05:51 ; Admin Dose 30 MG; Start 08/18/16 at 06:00 Insulin Aspart (Novolog Insulin Pen) NOVOLOG *MODERATE* ALGORI... Q6 SC Last administered on 08/22/16 06:01; Admin Dose 4 UNIT; Start 08/19/16 at 00:00 Warfarin Sodium (Coumadin) 5 mg DAILY@17 PO Last administered on 08/21/16 17: 51; Admin Dose 5 MG; Start 08/19/16 at 17:00 Insulin Human NPH (Humulin N) 40 unit , SC Last administered on 00:21; Admin Dose 40 UNIT; Start 08/20/16 at 17:30 Zinc Oxide (Desitin) 1 applic PRN PRN TOP RASH Last administered on 08/21/16 20:56; Admin Dose 1 APPLIC; Start 08/21/16 at 17:30 ROSCOE LANGE MD Aug 22, 2016 08:28
[2016-08-22] MEDS: BUDESONIDE (NEB) 0.5MG/2ML AMP HHN SCH ×2 (08:48→21:09)
[2016-08-22] MEDS: ARFORMOTEROL TARTRATE 15MCG/2 ML AMP NEB SCH ×2 (08:51→21:10)
[2016-08-22] MEDS: METOPROLOL 50 MG TAB NGT SCH ×2 (09:00→21:59)
[2016-08-22] MEDS: AMIODARONE 200 MG TAB NGT SCH (09:00)
[2016-08-22] MEDS: ARTIFICIAL TEARS 15 ML OPH BOTH EYES SCH ×3 (09:06→21:58)
[2016-08-22] MEDS: LEVETIRACETAM IV 750 MG in SOD CHLORIDE 0.9% 100 ML IVPB SCH (09:06)
[2016-08-22 09:49] LABS: INR 1.46; PROTIME 17.8 Sec (12.2-14.2); PT RATIO 1.4
--- NOTE | 2016-08-22 11:25 | CONS ---
Date/Time of Note Date/Time of Note DATE: 08/22/16 TIME: 11:23 Assessment/Plan Assessment/Plan Additional Assessment/Plan Ventilator settings; AC of 16, tidal volume 650, PEEP of 0 PEEP, 30% FiO2. Assessment and recommendations; 1. Patient admitted for treatment of sepsis with significant clinical improvement. Off antibiotics now. 2. Chronic respiratory failure due to anoxic encephalopathy, patient remains ventilator dependent. 3. End-stage renal disease. 4. Hypertension. 5. Diabetes. 6. Cardiac arrhythmia. Patient in sinus rhythm. Continue current supportive care patient ready to be transferred to subacute unit. Consultation Date/Type/Reason Admit Date/Time Jul 27, 2016 at 23:29 Initial Consult Date 07/28/16 Type of Consultation: Pulmonary Referring Provider: BARNEY MCKEE 24 HR Interval Summary Free Text/Dictation Patient condition remains unchanged. Still fully ventilator dependent. Currently getting hemodialysis at bedside. Has remained hemodynamically stable. General examination; middle aged man, on ventilator via tracheostomy. Awake but unresponsive to any commands. Exam/Review of Systems Vital Signs Vitals Vital Signs Date Time Temp Pulse Resp B/P Pulse Ox O2 Delivery O2 Flow Rate FiO2 08/22/16 11:00 106 08/22/16 09:00 18 99 30 08/22/16 08:12 100.2 183/78 Intake and Output 08/21/16 08/21/16 08/22/16 15:00 23:00 07:00 Intake Total 57.5 ml 150 ml 677.5 ml Output Total 50 ml Balance 57.5 ml 150 ml 627.5 ml Exam HEENT examination; supple neck, no JVD. No lymphadenopathy. Patient is edentulous. Pupils are small bilaterally. No neck masses. No thyromegaly. Tracheostomy in place with clean insertion site. Chest examination; clear to auscultation bilaterally. S1-S2 audible, no murmurs. Regular rhythm. Abdomen examination; soft, no organomegaly. G-tube in place. Bowel sounds audible. Next Extremity examination; no peripheral edema. SIDEHAND examination; patient is awake but remains unresponsive. Results Result Diagram: 08/22/16 0544 08/22/16 0544 Results 24 hrs Laboratory Tests Test 08/21/16 11:55 08/21/16 17:40 08/22/16 00:11 08/22/16 05:44 Bedside Glucose 177 186 193 Anion Gap 29 H Basophils # 0.0 Basophils % 0.3 Blood Morphology Comment Blood Urea Nitrogen 128 #H Calcium Level 8.3 L Carbon Dioxide Level 24 Chloride Level 91 L Creatinine 7.90 #H Eosinophils # 0.6 H Eosinophils % 4.1 Glucose Level 195 Hematocrit 27.9 L Hemoglobin 9.6 L Lymphocytes # 1.5 Lymphocytes % 10.2 L Mean Corpuscular Hemoglobin 31.7 Mean Corpuscular Hemoglobin Concent 34.2 Mean Corpuscular Volume 92.8 Mean Platelet Volume 8.9 Monocytes # 1.2 H Monocytes % 8.5 Neutrophils # 11.1 H Neutrophils % 76.9 Nucleated Red Blood Cells # 0.0 Nucleated Red Blood Cells % 0.0 Platelet Count 270 Potassium Level 4.9 Red Blood Count 3.01 L Red Cell Distribution Width 15.4 H Sodium Level 139 White Blood Count 14.5 H Test 08/22/16 05:54 08/22/16 07:48 08/22/16 09:20 Bedside Glucose 213 Lab Scanned Report REFERENCE LAB INR International Normalized Ratio 1.46 Prothrombin Time 17.8 H Prothrombin Time Ratio 1.4 Medications Medications Current Medications Labetalol HCl (Labetalol) 10 mg Q6H PRN IV sbp > 160 Last administered on 18:33; Admin Dose 10 MG; Start 07/28/16 at 00:30 Acetaminophen (Tylenol Supp) 650 mg Q6H PRN [place] PAIN AND OR ELEVATED TEMP Last administered on 07/31/16 17:30; Admin Dose 650 MG; Start 07/28/16 at 08:30 Miscellaneous Information 1 ea NOTE XX ; Start 07/28/16 at 09:00 Glucose (Glutose) 15 gm Q15M PRN PO DECREASED GLUCOSE; Start 07/28/16 at 09:00 Glucose (Glutose) 22.5 gm Q15M PRN PO DECREASED GLUCOSE; Start 07/28/16 at 09: 00 Dextrose (D50w Syringe) 25 ml Q15M PRN IV DECREASED GLUCOSE; Start 07/28/16 at 09:00 Dextrose (D50w Syringe) 50 ml Q15M PRN IV DECREASED GLUCOSE; Start 07/28/16 at 09:00 Glucagon (Glucagen) 1 mg Q15M PRN IM DECREASED GLUCOSE; Start 07/28/16 at 09:00 Glucose (Glutose) 15 gm Q15M PRN BUCCAL DECREASED GLUCOSE; Start 07/28/16 at 09 :00 IV Flush (NS 10 ml) 10 ml PRN PRN IV IV PROTOCOL; Start 07/29/16 at 17:00 Morphine Sulfate (morphine) 2 mg Q4 PRN IV PAIN Last administered on 08/12/16 23:38; Admin Dose 2 MG; Start 07/31/16 at 12:00 Lorazepam (Ativan) 1 mg Q1H PRN IV SEIZURES Last administered on 08/11/16 12:25 ; Admin Dose 1 MG; Start 08/02/16 at 02:00 Acetaminophen 650 mg 650 mg Q4H PRN NGT PAIN AND OR ELEVATED TEMP Last administered on 08/21/16 20:42; Admin Dose 650 MG; Start 08/03/16 at 00:00 Valproate Sodium/ Sodium Chloride (Depacon/NS) 57.5 ml @ 55 mls/hr Q6 IVPB Last administered on 08/22/16 05:51; Admin Dose 55 MLS/HR; Start 08/04/16 at 13: 00 Calcium Acetate (Phoslo) 667 mg Q6 NGT Last administered on 08/22/16 05:51; Admin Dose 667 MG; Start 08/05/16 at 08:30 Hydralazine HCl 10 mg 10 mg Q4H PRN IV ELEVATED SYSTOLIC BP Last administered on 08/20/16 06:30; Admin Dose 10 MG; Start 08/06/16 at 01:30 Levetiracetam/ Sodium Chloride (Keppra Iv/NS) 107.5 ml @ 420 mls/hr DAILY IVPB Last administered on 08/22/16 09:06; Admin Dose 420 MLS/HR; Start 08/08/16 at 09:00 Sodium Bicarbonate (Sodium Bicarbonate Tab) 650 mg Q8 PO Last administered on 05:51; Admin Dose 650 MG; Start 08/08/16 at 14:00 Eye Lubricant (Artificial Tears Oph) 2 drop TID BOTH EYES Last administered on 08/22/16 09:06; Admin Dose 2 DROP; Start 08/13/16 at 09:00 Metoprolol Tartrate (Lopressor) 50 mg BID NGT Last administered on 08/21/16 20 :42; Admin Dose 50 MG; Start 08/15/16 at 21:00 Amiodarone HCl (Cordarone) 200 mg DAILY NGT Last administered on 08/21/16 08: 55; Admin Dose 200 MG; Start 08/18/16 at 09:00 Lansoprazole (Prevacid) 30 mg DAILY@06 NGT Last administered on 08/22/16 05:51 ; Admin Dose 30 MG; Start 08/18/16 at 06:00 Insulin Aspart (Novolog Insulin Pen) NOVOLOG *MODERATE* ALGORI... Q6 SC Last administered on 08/22/16 06:01; Admin Dose 4 UNIT; Start 08/19/16 at 00:00 Warfarin Sodium (Coumadin) 5 mg DAILY@17 PO Last administered on 08/21/16 17: 51; Admin Dose 5 MG; Start 08/19/16 at 17:00 Insulin Human NPH (Humulin N) 40 unit , SC Last administered on 09:14; Admin Dose 40 UNIT; Start 08/20/16 at 17:30 Zinc Oxide (Desitin) 1 applic PRN PRN TOP RASH Last administered on 08/21/16 20:56; Admin Dose 1 APPLIC; Start 08/21/16 at 17:30 AMOR RODRIGUES Aug 22, 2016 11:25
[2016-08-22] MEDS: ACETAMINOPHEN 650MG/20.3ML CUP NGT PRN ×2 (12:26→22:34)
[2016-08-22] MEDS: ZINC OXIDE 13% (DESITIN) CREAM 2 OZ TUBE TOP PRN (16:14)
--- NOTE | 2016-08-22 16:21 | PN ---
DATE: 08/22/2016 TIME OF EVALUATION: 1530. SUBJECTIVE DATA: The patient had a mild febrile illness in the morning. Vital signs otherwise stable. OBJECTIVE DATA: VITAL SIGNS: Temperature 98.0, pulse rate 105, respiratory rate 20, blood pressure 106/62, oxygen saturation 98% on oxygen via mechanical ventilator. GENERAL: This is an obese male patient lying in bed with tracheostomy to vent, in no apparent distress. HEENT: Head normocephalic and atraumatic. Eyes: Anicteric sclerae. Conjunctivae clear. ENT: Nasal septum Oral mucosa is dry. NECK: Supple. Tracheostomy midline. RESPIRATORY: Bilateral diminished breath sounds. A tracheostomy connected to mechanical ventilator. On AC mode ventilation. Diminished breath sounds bilaterally. CARDIAC: Regular rate and rhythm. No obvious murmurs heard. ABDOMEN: Soft, nontender and nondistended. Left upper quadrant G-tube in place. GENITOURINARY: The patient has a rectal tube in place. EXTREMITIES: No cyanosis, no clubbing, no edema. Peripheral pulses are palpable. NEUROLOGIC: The patient is obtunded. Opens eyes. Does not follow any commands. LABORATORY AND DIAGNOSTIC DATA: WBC 14.5, hemoglobin 9.6, hematocrit 27.9, platelet count of 70. Sodium 139, potassium 4.9, chloride 91, carbon dioxide 25 , anion gap 29. BUN 120, creatinine 7.97, glucose 195, calcium 8.3. ASSESSMENT AND PLAN: 1. Status post cardiac arrest secondary to PEA. Status post trach and PEG. Family still deciding on changing the code status. 2. Acute respiratory failure, hypoxic. Continue ventilator management as per pulmonary. Continue inhaled bronchodilators. 3. End-stage renal disease on hemodialysis. Continue hemodialysis as per nephrology. 4. Status post systemic inflammatory response syndrome. Status post antibiotics. 5. Atrial fibrillation with rapid ventricular response. Currently in sinus rhythm. On amiodarone and metoprolol. On warfarin for stroke prophylaxis. 6. Type 2 diabetes mellitus. Hemoglobin A1c 7.3. Continue insulin sliding scale along with Lantus insulin. 7. Hypotension. Possibly secondary to cardiogenic shock. Improved. 8. Essential hypertension. Continue antihypertensives. 9. Normocytic normochromic anemia, most probably anemia of chronic kidney disease. Will monitor H and H closely. 10. Fluid, electrolytes and nutrition. Continue NG tube feedings. 11. Deep venous thrombosis prophylaxis. On warfarin. 12. Gastrointestinal prophylaxis. Proton pump inhibitors. PLAN: Continue inpatient care. Await placement to a [facility] facility. The case discussed with Dr. Burk. Plan of care was explained to the patient's family who was at the bedside. MICHAEL BURK MD, AM/BATSHEVA Conf#: [id number] DID#: [id number] MTDD
--- NOTE | 2016-08-22 16:52 | RADRPT ---
PROCEDURE: CHEST 1VW CLINICAL INDICATION: Shortness of breath TECHNIQUE: Single frontal view of the chest was obtained COMPARISON: 08/15/2016 FINDINGS: Stable tracheostomy tube and right PICC. The cardiac size is normal. Aortic vascular calcifications are demonstrated. There is no pulmonary vascular congestion. Bibasilar atelectasis. The lungs are clear. No consolidation, effusion, or pneumothorax. Mild degenerative changes of the visualized osseous structures are visualized. IMPRESSION: 1. Taking slight technique differences into account, there is no significant change from prior study . 2. Atherosclerosis. 3. No acute infiltrate. RPTAT:PP .Kamran Duran MD, MD Date Time Electronically viewed and signed by .Kamran Duran MD, MD on 08/22/2016 16:51 .V/
--- NOTE | 2016-08-22 17:27 | PN ---
Date/Time of Note Date/Time of Note DATE: 08/22/16 TIME: 17:24 Assessment/Plan VTE Prophylaxis VTE Prophylaxis Intervention: other (warfarin) Lines/Catheters IV Catheter Type (from Nrsg): PICC Line Urinary Cath still in place: No Subjective 24 Hr Interval Summary Free Text/Dictation diabetes control somewhat better on tid nph plus coverage, last bs 186 would leave as is trach, tube feed and lines in place not responsive, no rigidity lungs clear no edema Exam/Review of Systems Vital Signs Vitals Vital Signs Date Time Temp Pulse Resp B/P Pulse Ox O2 Delivery O2 Flow Rate FiO2 08/22/16 16:55 98.0 107 18 144/73 99 08/22/16 15:15 30 Intake and Output 08/21/16 08/21/16 08/22/16 15:00 23:00 07:00 Intake Total 57.5 ml 150 ml 677.5 ml Output Total 50 ml Balance 57.5 ml 150 ml 627.5 ml Results Result Diagram: 08/22/16 0544 08/22/16 0544 Results 24 hrs Laboratory Tests Test 08/21/16 17:40 08/22/16 00:11 08/22/16 05:44 08/22/16 05:54 Bedside Glucose 186 193 213 Anion Gap 29 H Basophils # 0.0 Basophils % 0.3 Blood Morphology Comment Blood Urea Nitrogen 128 #H Calcium Level 8.3 L Carbon Dioxide Level 24 Chloride Level 91 L Creatinine 7.90 #H Eosinophils # 0.6 H Eosinophils % 4.1 Glucose Level 195 Hematocrit 27.9 L Hemoglobin 9.6 L Lymphocytes # 1.5 Lymphocytes % 10.2 L Mean Corpuscular Hemoglobin 31.7 Mean Corpuscular Hemoglobin Concent 34.2 Mean Corpuscular Volume 92.8 Mean Platelet Volume 8.9 Monocytes # 1.2 H Monocytes % 8.5 Neutrophils # 11.1 H Neutrophils % 76.9 Nucleated Red Blood Cells # 0.0 Nucleated Red Blood Cells % 0.0 Platelet Count 270 Potassium Level 4.9 Red Blood Count 3.01 L Red Cell Distribution Width 15.4 H Sodium Level 139 White Blood Count 14.5 H Test 08/22/16 07:48 08/22/16 09:20 08/22/16 11:32 Lab Scanned Report REFERENCE LAB INR International Normalized Ratio 1.46 Prothrombin Time 17.8 H Prothrombin Time Ratio 1.4 Bedside Glucose 184 Medications Medications Current Medications Labetalol HCl (Labetalol) 10 mg Q6H PRN IV sbp > 160 Last administered on 18:33; Admin Dose 10 MG; Start 07/28/16 at 00:30 Acetaminophen (Tylenol Supp) [address] PAIN AND OR ELEVATED TEMP Last administered on 07/31/16 17:30; Admin Dose 650 MG; Start 07/28/16 at 08:30 Miscellaneous Information 1 ea NOTE XX ; Start 07/28/16 at 09:00 Glucose (Glutose) 15 gm Q15M PRN PO DECREASED GLUCOSE; Start 07/28/16 at 09:00 Glucose (Glutose) 22.5 gm Q15M PRN PO DECREASED GLUCOSE; Start 07/28/16 at 09: 00 Dextrose (D50w Syringe) 25 ml Q15M PRN IV DECREASED GLUCOSE; Start 07/28/16 at 09:00 Dextrose (D50w Syringe) 50 ml Q15M PRN IV DECREASED GLUCOSE; Start 07/28/16 at 09:00 Glucagon (Glucagen) 1 mg Q15M PRN IM DECREASED GLUCOSE; Start 07/28/16 at 09:00 Glucose (Glutose) 15 gm Q15M PRN BUCCAL DECREASED GLUCOSE; Start 07/28/16 at 09 :00 IV Flush (NS 10 ml) 10 ml PRN PRN IV IV PROTOCOL; Start 07/29/16 at 17:00 Morphine Sulfate (morphine) 2 mg Q4 PRN IV PAIN Last administered on 08/12/16 23:38; Admin Dose 2 MG; Start 07/31/16 at 12:00 Lorazepam (Ativan) 1 mg Q1H PRN IV SEIZURES Last administered on 08/11/16 12:25 ; Admin Dose 1 MG; Start 08/02/16 at 02:00 Acetaminophen 650 mg 650 mg Q4H PRN NGT PAIN AND OR ELEVATED TEMP Last administered on 08/22/16 12:26; Admin Dose 650 MG; Start 08/03/16 at 00:00 Valproate Sodium/ Sodium Chloride (Depacon/NS) 57.5 ml @ 55 mls/hr Q6 IVPB Last administered on 08/22/16 11:40; Admin Dose 55 MLS/HR; Start 08/04/16 at 13: 00 Calcium Acetate (Phoslo) 667 mg Q6 NGT Last administered on 08/22/16 11:40; Admin Dose 667 MG; Start 08/05/16 at 08:30 Hydralazine HCl 10 mg 10 mg Q4H PRN IV ELEVATED SYSTOLIC BP Last administered on 08/20/16 06:30; Admin Dose 10 MG; Start 08/06/16 at 01:30 Levetiracetam/ Sodium Chloride (Keppra Iv/NS) 107.5 ml @ 420 mls/hr DAILY IVPB Last administered on 08/22/16 09:06; Admin Dose 420 MLS/HR; Start 08/08/16 at 09:00 Sodium Bicarbonate (Sodium Bicarbonate Tab) 650 mg Q8 PO Last administered on 13:59; Admin Dose 650 MG; Start 08/08/16 at 14:00 Eye Lubricant (Artificial Tears Oph) 2 drop TID BOTH EYES Last administered on 08/22/16 12:26; Admin Dose 2 DROP; Start 08/13/16 at 09:00 Metoprolol Tartrate (Lopressor) 50 mg BID NGT Last administered on 08/21/16 20 :42; Admin Dose 50 MG; Start 08/15/16 at 21:00 Amiodarone HCl (Cordarone) 200 mg DAILY NGT Last administered on 08/21/16 08: 55; Admin Dose 200 MG; Start 08/18/16 at 09:00 Lansoprazole (Prevacid) 30 mg DAILY@06 NGT Last administered on 08/22/16 05:51 ; Admin Dose 30 MG; Start 08/18/16 at 06:00 Insulin Aspart (Novolog Insulin Pen) NOVOLOG *MODERATE* ALGORI... Q6 SC Last administered on 08/22/16 11:46; Admin Dose 4 UNIT; Start 08/19/16 at 00:00 Warfarin Sodium (Coumadin) 5 mg DAILY@17 PO Last administered on 08/21/16 17: 51; Admin Dose 5 MG; Start 08/19/16 at 17:00 Insulin Human NPH (Humulin N) 40 unit ,, SC Last administered on 09:14; Admin Dose 40 UNIT; Start 08/20/16 at 17:30 Zinc Oxide (Desitin) 1 applic PRN PRN TOP RASH Last administered on 08/22/16t 16:14; Admin Dose 1 APPLIC; Start 08/21/16 at 17:30 KARTHIK AARON MD Aug 22, 2016 17:27
[2016-08-22] MEDS: WARFARIN 5 MG TAB PO SCH (18:02)
[2016-08-22] MEDS: NA BICARBONATE 650 MG TAB NGT SCH (21:58)
[2016-08-23] VITALS (24 sets, daily range): BP systolic 109–155; BP diastolic 61–75; PULSE 88–95; RESP 16–18
[2016-08-23] MEDS: CALCIUM ACETATE 667 MG CAP NGT SCH ×4 (00:09→19:55)
[2016-08-23] MEDS: VALPROATE INJ 750 MG in SOD CHLORIDE 0.9% 50 ML IVPB SCH ×4 (00:09→19:55)
[2016-08-23] MEDS: INSULIN ASPART [NOVOLOG] 3 ML PEN SC SCH ×4 (00:16→18:00)
[2016-08-23] MEDS: NPH, HUMAN INSULIN ISOPHANE 3ML VIAL SC SCH ×3 (00:56→19:59)
[2016-08-23] MEDS: ALBUTEROL HFA 8 GM INHALER INH SCH ×6 (01:51→21:49)
[2016-08-23] MEDS: IPRATROPIUM (HFA) 12.9 GM INHALER INH SCH ×6 (01:52→21:48)
[2016-08-23] MEDS: LANSOPRAZOLE 30 MG CAP NGT SCH (07:15)
[2016-08-23] MEDS: NA BICARBONATE 650 MG TAB NGT SCH ×3 (07:15→21:05)
[2016-08-23 07:24] LABS: POTASSIUM 4.7 mmol/L (3.5-5.1)
[2016-08-23] MEDS: BUDESONIDE (NEB) 0.5MG/2ML AMP HHN SCH ×2 (07:25→19:28)
[2016-08-23 07:27] LABS: BASOPHILS % 0.3 % (0.0-2.0); EOSINOPHILS # 0.3 10^3/ul (0.0-0.5); HEMATOCRIT 27.1 % (42.0-52.0); HEMOGLOBIN 9.3 g/dl (14.0-18.0); LYMPHOCYTES # 1.6 10^3/ul (0.8-2.9); LYMPHOCYTES % 10.8 % (15.0-51.0); MEAN CORPUSCULAR HEMOGLOBIN 31.7 pg (29.0-33.0); MEAN CORPUSCULAR HGB CONC 34.3 g/dl (32.0-37.0); MEAN CORPUSCULAR VOLUME 92.2 fl (82.0-101.0); MEAN PLATELET VOLUME 8.8 fl (7.4-10.4); MONOCYTE # 1.4 10^3/ul (0.3-0.9); MONOCYTES % 9.6 % (0.0-11.0); NEUTROPHIL # 11.6 10^3/ul (1.6-7.5); NEUTROPHILS % 77.3 % (39.0-77.0); PLATELET COUNT 237 10^3/UL (140-440); RED BLOOD COUNT 2.94 10^6/ul (4.70-6.10); RED CELL DISTRIBUTION WIDTH 15.3 % (11.5-14.5); UNCORRECTED WBC 15.1 10^3/ul (4.8-10.8); WHITE BLOOD COUNT 15.1 10^3/ul (4.8-10.8)
[2016-08-23 07:27] LABS: INR 1.47; PROTIME 17.9 Sec (12.2-14.2); PT RATIO 1.4
[2016-08-23 07:28] LABS: CALCIUM 8.3 mg/dl (8.4-10.2)
[2016-08-23] MEDS: ARFORMOTEROL TARTRATE 15MCG/2 ML AMP NEB SCH ×2 (07:33→19:28)
[2016-08-23 07:34] LABS: MAGNESIUM 2.8 mg/dl (1.7-2.5); PHOSPHORUS 7.4 mg/dl (2.5-4.9)
[2016-08-23 07:36] LABS: CREATININE 7.02 mg/dl (0.61-1.24)
[2016-08-23 07:44] LABS: CONDITION 1; LH ANALYZER COMMENTS 1
--- NOTE | 2016-08-23 08:39 | CONS ---
Date/Time of Note Date/Time of Note DATE: 08/23/16 TIME: 08:35 Assessment/Plan Assessment/Plan Chief Complaint/Hosp Course #1 end-stage renal disease . He has hemodialysis ordered for today . His BUN continues to run high . I will decrease tube feeding rate and have dietary consult . . #2 the patient is status post a cardiac arrest at home #3 altered level of consciousness, probable anoxic encephalopathy. #4 insulin-dependent diabetes mellitus #5 seizures #6 ventilator dependent respiratory failure , h/o COPD and pneumonia on CXR . #7 hyperphosphatemia , calcium acetate is being given . #8 new onset A fib , he was cardioverted and now is off heparin drip because of bleeding around his trachea .. #9 dietary consult ordered , will decrease tube feeding rate to 30 cc/hr . Problems: Consultation Date/Type/Reason Admit Date/Time Jul 27, 2016 at 23:29 Initial Consult Date 07/28/16 Type of Consultation: renal Referring Provider: BARNEY MCKEE 24 HR Interval Summary Free Text/Dictation He is the same , unresponsive on a ventilator . Exam/Review of Systems Vital Signs Vitals Vital Signs Date Time Temp Pulse Resp B/P Pulse Ox O2 Delivery O2 Flow Rate FiO2 08/23/16 07:45 100.0 95 18 153/70 96 08/23/16 07:29 30 Intake and Output 08/22/16 08/22/16 08/23/16 15:00 23:00 07:00 Intake Total 400 ml 150 ml Output Total 2400 ml Balance -2000 ml 150 ml Exam Constitutional: non-verbal Respiratory: clear to auscultation, diminished breath sounds Cardiovascular: regular rate and rhythm Gastrointestinal: soft Musculoskeletal: nl extremities to inspection Results Result Diagram: 08/23/16 0500 08/23/16 0630 Results 24 hrs Laboratory Tests Test 08/22/16 09:20 08/22/16 11:32 08/22/16 18:00 08/23/16 00:14 INR International Normalized Ratio 1.46 Prothrombin Time 17.8 H Prothrombin Time Ratio 1.4 Bedside Glucose 184 210 212 Test 08/23/16 05:00 08/23/16 06:30 08/23/16 07:14 Basophils # 0.0 Basophils % 0.3 Blood Morphology Comment Eosinophils # 0.3 Eosinophils % 2.0 Hematocrit 27.1 L Hemoglobin 9.3 L Lymphocytes # 1.6 Lymphocytes % 10.8 L Magnesium Level 2.8 H Mean Corpuscular Hemoglobin 31.7 Mean Corpuscular Hemoglobin Concent 34.3 Mean Corpuscular Volume 92.2 Mean Platelet Volume 8.8 Monocytes # 1.4 H Monocytes % 9.6 Neutrophils # 11.6 H Neutrophils % 77.3 H Nucleated Red Blood Cells # 0.0 Nucleated Red Blood Cells % 0.0 Phosphorus Level 7.4 H Platelet Count 237 Red Blood Count 2.94 L Red Cell Distribution Width 15.3 H White Blood Count 15.1 H Anion Gap 27 H Blood Urea Nitrogen 119 H Calcium Level 8.3 L Carbon Dioxide Level 25 Chloride Level 91 L Creatinine 7.02 H Glucose Level 209 INR International Normalized Ratio 1.47 Potassium Level 4.7 Prothrombin Time 17.9 H Prothrombin Time Ratio 1.4 Sodium Level 138 Bedside Glucose 222 H Medications Medications Current Medications Labetalol HCl (Labetalol) 10 mg Q6H PRN IV sbp > 160 Last administered on 18:33; Admin Dose 10 MG; Start 07/28/16 at 00:30 Acetaminophen (Tylenol Supp) 650 mg Q6H PRN [place] PAIN AND OR ELEVATED TEMP Last administered on 07/31/16 17:30; Admin Dose 650 MG; Start 07/28/16 at 08:30 Miscellaneous Information 1 ea NOTE XX ; Start 07/28/16 at 09:00 Glucose (Glutose) 15 gm Q15M PRN PO DECREASED GLUCOSE; Start 07/28/16 at 09:00 Glucose (Glutose) 22.5 gm Q15M PRN PO DECREASED GLUCOSE; Start 07/28/16 at 09: 00 Dextrose (D50w Syringe) 25 ml Q15M PRN IV DECREASED GLUCOSE; Start 07/28/16 at 09:00 Dextrose (D50w Syringe) 50 ml Q15M PRN IV DECREASED GLUCOSE; Start 07/28/16 at 09:00 Glucagon (Glucagen) 1 mg Q15M PRN IM DECREASED GLUCOSE; Start 07/28/16 at 09:00 Glucose (Glutose) 15 gm Q15M PRN BUCCAL DECREASED GLUCOSE; Start 07/28/16 at 09 :00 IV Flush (NS 10 ml) 10 ml PRN PRN IV IV PROTOCOL; Start 07/29/16 at 17:00 Morphine Sulfate (morphine) 2 mg Q4 PRN IV PAIN Last administered on 08/12/16 23:38; Admin Dose 2 MG; Start 07/31/16 at 12:00 Lorazepam (Ativan) 1 mg Q1H PRN IV SEIZURES Last administered on 08/11/16 12:25 ; Admin Dose 1 MG; Start 08/02/16 at 02:00 Acetaminophen 650 mg 650 mg Q4H PRN NGT PAIN AND OR ELEVATED TEMP Last administered on 08/22/16 22:34; Admin Dose 650 MG; Start 08/03/16 at 00:00 Valproate Sodium/ Sodium Chloride (Depacon/NS) 57.5 ml @ 55 mls/hr Q6 IVPB Last administered on 08/23/16 07:21; Admin Dose 55 MLS/HR; Start 08/04/16 at 13: 00 Calcium Acetate (Phoslo) 667 mg Q6 NGT Last administered on 08/23/16 07:15; Admin Dose 667 MG; Start 08/05/16 at 08:30 Hydralazine HCl 10 mg 10 mg Q4H PRN IV ELEVATED SYSTOLIC BP Last administered on 08/20/16 06:30; Admin Dose 10 MG; Start 08/06/16 at 01:30 Levetiracetam/ Sodium Chloride (Keppra Iv/NS) 107.5 ml @ 420 mls/hr DAILY IVPB Last administered on 08/22/16 09:06; Admin Dose 420 MLS/HR; Start 08/08/16 at 09:00 Eye Lubricant (Artificial Tears Oph) 2 drop TID BOTH EYES Last administered on 08/22/16 21:58; Admin Dose 2 DROP; Start 08/13/16 at 09:00 Metoprolol Tartrate (Lopressor) 50 mg BID NGT Last administered on 08/22/16 21 :59; Admin Dose 50 MG; Start 08/15/16 at 21:00 Amiodarone HCl (Cordarone) 200 mg DAILY NGT Last administered on 08/21/16 08: 55; Admin Dose 200 MG; Start 08/18/16 at 09:00 Lansoprazole (Prevacid) 30 mg DAILY@06 NGT Last administered on 08/23/16 07:15 ; Admin Dose 30 MG; Start 08/18/16 at 06:00 Insulin Aspart (Novolog Insulin Pen) NOVOLOG *MODERATE* ALGORI... Q6 SC Last administered on 08/23/16 07:17; Admin Dose 6 UNIT; Start 08/19/16 at 00:00 Warfarin Sodium (Coumadin) 5 mg DAILY@17 PO Last administered on 08/22/16 18: 02; Admin Dose 5 MG; Start 08/19/16 at 17:00 Insulin Human NPH (Humulin N) 40 unit ,, SC Last administered on 00:56; Admin Dose 40 UNIT; Start 08/20/16 at 17:30 Zinc Oxide (Desitin) 1 applic PRN PRN TOP RASH Last administered on 08/22/16 16:14; Admin Dose 1 APPLIC; Start 08/21/16 at 17:30 Sodium Bicarbonate (Sodium Bicarbonate Tab) 650 mg Q8 NGT Last administered on 08/23/16 07:15; Admin Dose 650 MG; Start 08/22/16 at 22:00 ROSCOE LANGE MD Aug 23, 2016 08:39
[2016-08-23] MEDS: AMIODARONE 200 MG TAB NGT SCH (10:31)
[2016-08-23] MEDS: METOPROLOL 50 MG TAB NGT SCH ×2 (10:31→21:18)
[2016-08-23] MEDS: LEVETIRACETAM IV 750 MG in SOD CHLORIDE 0.9% 100 ML IVPB SCH (10:32)
[2016-08-23] MEDS: ARTIFICIAL TEARS 15 ML OPH BOTH EYES SCH ×3 (10:32→21:05)
--- NOTE | 2016-08-23 10:46 | CONS ---
Date/Time of Note Date/Time of Note DATE: 08/23/16 TIME: 10:43 Assessment/Plan Assessment/Plan Additional Assessment/Plan Ventilator settings; AC of 16, tidal volume 650, 30% FiO2, PEEP of 5. Assessment and recommendation; 1. Chronic respiratory failure ventilator dependent. Patient essentially remains apneic . 2. History of anoxic encephalopathy. 3. Patient admitted with sepsis with marked clinical improvement, off antibiotics now. 4. Stable seizure disorder. 5. Chronic renal failure on intermittent hemodialysis. 6. Cardiac arrhythmia. 7. Stable hypertension. Continue supportive care. [facility] to [facility]. Overall prognosis remains poor. 2. Stable diabetes Consultation Date/Type/Reason Admit Date/Time Jul 27, 2016 at 23:29 Initial Consult Date 07/28/16 Type of Consultation: Pulmonary Referring Provider: BARNEY MCKEE 24 HR Interval Summary Free Text/Dictation Patient condition remains stable. Has remained hemodynamically stable. No new events reported. General examination; middle aged man, on ventilator via tracheostomy. Remains unresponsive. Exam/Review of Systems Vital Signs Vitals Vital Signs Date Time Temp Pulse Resp B/P Pulse Ox O2 Delivery O2 Flow Rate FiO2 08/23/16 09:48 92 17 97 30 08/23/16 07:45 100.0 153/70 Intake and Output 08/22/16 08/22/16 08/23/16 15:00 23:00 07:00 Intake Total 400 ml 150 ml Output Total 2400 ml Balance -2000 ml 150 ml Exam H EENT examination; supple neck, no JVD. No lymphadenopathy. Tracheostomy in place. There is mild crusting of blood around the insertion site without any active bleeding seen. Patient is edentulous. Pupils are small bilaterally. Chest examination; clear to auscultation bilaterally. S1-S2 audible, no murmurs. Regular rhythm. Abdomen examination; soft, nondistended. No organomegaly. G-tube in place. Bowel sounds audible. Extremity examination; no peripheral edema. Pulses 1+ bilaterally. INSIGHTS STRATEGIST examination; patient remains unresponsive. Results Result Diagram: 08/23/16 0500 08/23/16 0630 Results 24 hrs Laboratory Tests Test 08/22/16 11:32 08/22/16 18:00 08/23/16 00:14 08/23/16 05:00 Bedside Glucose 184 210 212 Basophils # 0.0 Basophils % 0.3 Blood Morphology Comment Eosinophils # 0.3 Eosinophils % 2.0 Hematocrit 27.1 L Hemoglobin 9.3 L Lymphocytes # 1.6 Lymphocytes % 10.8 L Magnesium Level 2.8 H Mean Corpuscular Hemoglobin 31.7 Mean Corpuscular Hemoglobin Concent 34.3 Mean Corpuscular Volume 92.2 Mean Platelet Volume 8.8 Monocytes # 1.4 H Monocytes % 9.6 Neutrophils # 11.6 H Neutrophils % 77.3 H Nucleated Red Blood Cells # 0.0 Nucleated Red Blood Cells % 0.0 Phosphorus Level 7.4 H Platelet Count 237 Red Blood Count 2.94 L Red Cell Distribution Width 15.3 H White Blood Count 15.1 H Test 08/23/16 06:30 08/23/16 07:14 Anion Gap 27 H Blood Urea Nitrogen 119 H Calcium Level 8.3 L Carbon Dioxide Level 25 Chloride Level 91 L Creatinine 7.02 H Glucose Level 209 INR International Normalized Ratio 1.47 Potassium Level 4.7 Prothrombin Time 17.9 H Prothrombin Time Ratio 1.4 Sodium Level 138 Bedside Glucose 222 H Medications Medications Current Medications Labetalol HCl (Labetalol) 10 mg Q6H PRN IV sbp > 160 Last administered on 18:33; Admin Dose 10 MG; Start 07/28/16 at 00:30 Acetaminophen (Tylenol Supp) 650 mg Q6H PRN [place] PAIN AND OR ELEVATED TEMP Last administered on 07/31/16 17:30; Admin Dose 650 MG; Start 07/28/16 at 08:30 Miscellaneous Information 1 ea NOTE XX ; Start 07/28/16 at 09:00 Glucose (Glutose) 15 gm Q15M PRN PO DECREASED GLUCOSE; Start 07/28/16 at 09:00 Glucose (Glutose) 22.5 gm Q15M PRN PO DECREASED GLUCOSE; Start 07/28/16 at 09: 00 Dextrose (D50w Syringe) 25 ml Q15M PRN IV DECREASED GLUCOSE; Start 07/28/16 at 09:00 Dextrose (D50w Syringe) 50 ml Q15M PRN IV DECREASED GLUCOSE; Start 07/28/16 at 09:00 Glucagon (Glucagen) 1 mg Q15M PRN IM DECREASED GLUCOSE; Start 07/28/16 at 09:00 Glucose (Glutose) 15 gm Q15M PRN BUCCAL DECREASED GLUCOSE; Start 07/28/16 at 09 :00 IV Flush (NS 10 ml) 10 ml PRN PRN IV IV PROTOCOL; Start 07/29/16 at 17:00 Morphine Sulfate (morphine) 2 mg Q4 PRN IV PAIN Last administered on 08/12/16 23:38; Admin Dose 2 MG; Start 07/31/16 at 12:00 Lorazepam (Ativan) 1 mg Q1H PRN IV SEIZURES Last administered on 08/11/16 12:25 ; Admin Dose 1 MG; Start 08/02/16 at 02:00 Acetaminophen 650 mg 650 mg Q4H PRN NGT PAIN AND OR ELEVATED TEMP Last administered on 08/22/16 22:34; Admin Dose 650 MG; Start 08/03/16 at 00:00 Valproate Sodium/ Sodium Chloride (Depacon/NS) 57.5 ml @ 55 mls/hr Q6 IVPB Last administered on 08/23/16 07:21; Admin Dose 55 MLS/HR; Start 08/04/16 at 13: 00 Calcium Acetate (Phoslo) 667 mg Q6 NGT Last administered on 08/23/16 07:15; Admin Dose 667 MG; Start 08/05/16 at 08:30 Hydralazine HCl 10 mg 10 mg Q4H PRN IV ELEVATED SYSTOLIC BP Last administered on 08/20/16 06:30; Admin Dose 10 MG; Start 08/06/16 at 01:30 Levetiracetam/ Sodium Chloride (Keppra Iv/NS) 107.5 ml @ 420 mls/hr DAILY IVPB Last administered on 08/23/16 10:32; Admin Dose 420 MLS/HR; Start 08/08/16 at 09:00 Eye Lubricant (Artificial Tears Oph) 2 drop TID BOTH EYES Last administered on 08/23/16 10:32; Admin Dose 2 DROP; Start 08/13/16 at 09:00 Metoprolol Tartrate (Lopressor) 50 mg BID NGT Last administered on 08/23/16 10 :31; Admin Dose 50 MG; Start 08/15/16 at 21:00 Amiodarone HCl (Cordarone) 200 mg DAILY NGT Last administered on 08/23/16 10: 31; Admin Dose 200 MG; Start 08/18/16 at 09:00 Lansoprazole (Prevacid) 30 mg DAILY@06 NGT Last administered on 08/23/16 07:15 ; Admin Dose 30 MG; Start 08/18/16 at 06:00 Insulin Aspart (Novolog Insulin Pen) NOVOLOG *MODERATE* ALGORI... Q6 SC Last administered on 08/23/16 07:17; Admin Dose 6 UNIT; Start 08/19/16 at 00:00 Warfarin Sodium (Coumadin) 5 mg DAILY@17 PO Last administered on 08/22/16 18: 02; Admin Dose 5 MG; Start 08/19/16 at 17:00 Insulin Human NPH (Humulin N) 40 unit ,,17 SC Last administered on 00:56; Admin Dose 40 UNIT; Start 08/20/16 at 17:30 Zinc Oxide (Desitin) 1 applic PRN PRN TOP RASH Last administered on 08/22/16 16:14; Admin Dose 1 APPLIC; Start 08/21/16 at 17:30 Sodium Bicarbonate (Sodium Bicarbonate Tab) 650 mg Q8 NGT Last administered on 08/23/16 07:15; Admin Dose 650 MG; Start 08/22/16 at 22:00 AMOR RODRIGUES Aug 23, 2016 10:46
[2016-08-23] MEDS: ACETAMINOPHEN 650MG/20.3ML CUP NGT PRN (11:16)
--- NOTE | 2016-08-23 11:31 | PN ---
Date/Time of Note Date/Time of Note DATE: 08/23/16 TIME: 11:30 Assessment/Plan VTE Prophylaxis VTE Prophylaxis Intervention: other (Warfarin) Lines/Catheters [facility] PICC Line Central line still needed: Yes Urinary Cath still in place: No Assessment/Plan Chief Complaint/Hosp Course 1. Status post cardiac arrest secondary to PEA. Status post trach and PEG. Family hesitant on changing the code status. 2. Acute respiratory failure, hypoxic. Continue ventilator management as per pulmonary. Continue inhaled bronchodilators. 3. End-stage renal disease on hemodialysis. Continue hemodialysis as per nephrology. 4. Status post systemic inflammatory response syndrome. Status post antibiotics. 5. Atrial fibrillation with rapid ventricular response. Currently in sinus rhythm. On amiodarone and metoprolol. On warfarin for stroke prophylaxis. 6. Type 2 diabetes mellitus. Hemoglobin A1c 7.3. Continue insulin sliding scale along with Lantus insulin. 7. Essential hypertension. Continue antihypertensives. 8. Seizure disorder. Most probably secondary to anoxia. Continue anticonvulsants. 9. Possible underlying anoxic encephalopathy. 10. Normocytic normochromic anemia, most probably anemia of chronic kidney disease. Will monitor H and H closely. 11. Fluid, electrolytes and nutrition. Continue NG tube feedings. 12. Deep venous thrombosis prophylaxis. On warfarin. 13. Gastrointestinal prophylaxis. Proton pump inhibitors. PLAN: Continue inpatient care. Await [facility] to a [facility] facility. The case was discussed with Dr. Nguyen. Problems: Subjective 24 Hr Interval Summary Free Text/Dictation Having a low-grade fever. Exam/Review of Systems Vital Signs Vitals Vital Signs Date Time Temp Pulse Resp B/P Pulse Ox O2 Delivery O2 Flow Rate FiO2 08/23/16 11:18 100.3 96 18 139/65 96 08/23/16 11:11 30 Intake and Output 08/22/16 08/22/16 08/23/16 15:00 23:00 07:00 Intake Total 400 ml 150 ml Output Total 2400 ml Balance -2000 ml 150 ml Exam GENERAL: This is an obese male patient lying in bed with tracheostomy to vent, in no apparent distress. HEENT: Head normocephalic and atraumatic. Eyes: Anicteric sclerae. Conjunctivae clear. ENT: Nasal septum Oral mucosa is dry. NECK: Supple. Tracheostomy midline. RESPIRATORY: Bilateral diminished breath sounds. A tracheostomy connected to mechanical ventilator. On AC mode ventilation. Diminished breath sounds bilaterally. CARDIAC: Regular rate and rhythm. No obvious murmurs heard. ABDOMEN: Soft, nontender and nondistended. Left upper quadrant G-tube in place. GENITOURINARY: The patient has a rectal tube in place. EXTREMITIES: No cyanosis, no clubbing, no edema. Peripheral pulses are palpable. NEUROLOGIC: The patient is obtunded. Opens eyes. Does not follow any commands. Results Result Diagram: 08/23/16 0500 08/23/16 0630 Results 24 hrs Laboratory Tests Test 08/22/16 11:32 08/22/16 18:00 08/23/16 00:14 08/23/16 05:00 Bedside Glucose 184 210 212 Basophils # 0.0 Basophils % 0.3 Blood Morphology Comment Eosinophils # 0.3 Eosinophils % 2.0 Hematocrit 27.1 L Hemoglobin 9.3 L Lymphocytes # 1.6 Lymphocytes % 10.8 L Magnesium Level 2.8 H Mean Corpuscular Hemoglobin 31.7 Mean Corpuscular Hemoglobin Concent 34.3 Mean Corpuscular Volume 92.2 Mean Platelet Volume 8.8 Monocytes # 1.4 H Monocytes % 9.6 Neutrophils # 11.6 H Neutrophils % 77.3 H Nucleated Red Blood Cells # 0.0 Nucleated Red Blood Cells % 0.0 Phosphorus Level 7.4 H Platelet Count 237 Red Blood Count 2.94 L Red Cell Distribution Width 15.3 H White Blood Count 15.1 H Test 08/23/16 06:30 08/23/16 07:14 Anion Gap 27 H Blood Urea Nitrogen 119 H Calcium Level 8.3 L Carbon Dioxide Level 25 Chloride Level 91 L Creatinine 7.02 H Glucose Level 209 INR International Normalized Ratio 1.47 Potassium Level 4.7 Prothrombin Time 17.9 H Prothrombin Time Ratio 1.4 Sodium Level 138 Bedside Glucose 222 H Medications Medications Current Medications Labetalol HCl (Labetalol) 10 mg Q6H PRN IV sbp > 160 Last administered on 18:33; Admin Dose 10 MG; Start 07/28/16 at 00:30 Acetaminophen (Tylenol Supp) 650 mg Q6H PRN [place] PAIN AND OR ELEVATED TEMP Last administered on 07/31/16 17:30; Admin Dose 650 MG; Start 07/28/16 at 08:30 Miscellaneous Information 1 ea NOTE XX ; Start 07/28/16 at 09:00 Glucose (Glutose) 15 gm Q15M PRN PO DECREASED GLUCOSE; Start 07/28/16 at 09:00 Glucose (Glutose) 22.5 gm Q15M PRN PO DECREASED GLUCOSE; Start 07/28/16 at 09: 00 Dextrose (D50w Syringe) 25 ml Q15M PRN IV DECREASED GLUCOSE; Start 07/28/16 at 09:00 Dextrose (D50w Syringe) 50 ml Q15M PRN IV DECREASED GLUCOSE; Start 07/28/16 at 09:00 Glucagon (Glucagen) 1 mg Q15M PRN IM DECREASED GLUCOSE; Start 07/28/16 at 09:00 Glucose (Glutose) 15 gm Q15M PRN BUCCAL DECREASED GLUCOSE; Start 07/28/16 at 09 :00 IV Flush (NS 10 ml) 10 ml PRN PRN IV IV PROTOCOL; Start 07/29/16 at 17:00 Morphine Sulfate (morphine) 2 mg Q4 PRN IV PAIN Last administered on 08/12/16 23:38; Admin Dose 2 MG; Start 07/31/16 at 12:00 Lorazepam (Ativan) 1 mg Q1H PRN IV SEIZURES Last administered on 08/11/16 12:25 ; Admin Dose 1 MG; Start 08/02/16 at 02:00 Acetaminophen 650 mg 650 mg Q4H PRN NGT PAIN AND OR ELEVATED TEMP Last administered on 08/23/16 11:16; Admin Dose 650 MG; Start 08/03/16 at 00:00 Valproate Sodium/ Sodium Chloride (Depacon/NS) 57.5 ml @ 55 mls/hr Q6 IVPB Last administered on 08/23/16 07:21; Admin Dose 55 MLS/HR; Start 08/04/16 at 13: 00 Calcium Acetate (Phoslo) 667 mg Q6 NGT Last administered on 08/23/16 07:15; Admin Dose 667 MG; Start 08/05/16 at 08:30 Hydralazine HCl 10 mg 10 mg Q4H PRN IV ELEVATED SYSTOLIC BP Last administered on 08/20/16 06:30; Admin Dose 10 MG; Start 08/06/16 at 01:30 Levetiracetam/ Sodium Chloride (Keppra Iv/NS) 107.5 ml @ 420 mls/hr DAILY IVPB Last administered on 08/23/16 10:32; Admin Dose 420 MLS/HR; Start 08/08/16 at 09:00 Eye Lubricant (Artificial Tears Oph) 2 drop TID BOTH EYES Last administered on 08/23/16 10:32; Admin Dose 2 DROP; Start 08/13/16 at 09:00 Metoprolol Tartrate (Lopressor) 50 mg BID NGT Last administered on 08/23/16 10 :31; Admin Dose 50 MG; Start 08/15/16 at 21:00 Amiodarone HCl (Cordarone) 200 mg DAILY NGT Last administered on 08/23/16 10: 31; Admin Dose 200 MG; Start 08/18/16 at 09:00 Lansoprazole (Prevacid) 30 mg DAILY@06 NGT Last administered on 08/23/16 07:15 ; Admin Dose 30 MG; Start 08/18/16 at 06:00 Insulin Aspart (Novolog Insulin Pen) NOVOLOG *MODERATE* ALGORI... Q6 SC Last administered on 08/23/16 07:17; Admin Dose 6 UNIT; Start 08/19/16 at 00:00 Warfarin Sodium (Coumadin) 5 mg DAILY@17 PO Last administered on 08/22/16 18: 02; Admin Dose 5 MG; Start 08/19/16 at 17:00 Insulin Human NPH (Humulin N) 40 unit , SC Last administered on 10:56; Admin Dose 40 UNIT; Start 08/20/16 at 17:30 Zinc Oxide (Desitin) 1 applic PRN PRN TOP RASH Last administered on 08/22/16 16:14; Admin Dose 1 APPLIC; Start 08/21/16 at 17:30 Sodium Bicarbonate (Sodium Bicarbonate Tab) 650 mg Q8 NGT Last administered on 08/23/16 07:15; Admin Dose 650 MG; Start 08/22/16 at 22:00 MICHAEL OLIVER NP Aug 23, 2016 11:31
--- NOTE | 2016-08-23 12:45 | CONS ---
Date/Time of Note Date/Time of Note DATE: 08/23/16 TIME: 12:40 Assessment/Plan Assessment/Plan Problems: (1) Type 2 diabetes mellitus with hypertension and end stage renal disease on dialysis Status: Chronic Comment: Patient's blood glucose still slightly above target while on continuous feeds. Total correction over a 24 hour period is 16 units extra. Will add this to scheduled NPH dose increasing the dose to 44 units Q8 hours. Will monitor and make further adjustments. Consultation Date/Type/Reason Admit Date/Time Jul 27, 2016 at 23:29 Initial Consult Date 08/17/16 Type of Consultation: Pulmonary Referring Provider: BARNEY MCKEE 24 HR Interval Summary Subjective hx not possible: pt non-verbal Exam/Review of Systems Vital Signs Vitals Vital Signs Date Time Temp Pulse Resp B/P Pulse Ox O2 Delivery O2 Flow Rate FiO2 08/23/16 12:20 94 08/23/16 11:18 100.3 18 139/65 96 08/23/16 11:11 30 Intake and Output 08/22/16 08/22/16 08/23/16 15:00 23:00 07:00 Intake Total 400 ml 150 ml Output Total 2400 ml Balance -2000 ml 150 ml Exam Constitutional: non-verbal ENMT: intubated (via tracheostomy) Results POC glucose reviewed Result Diagram: 08/23/16 0500 08/23/16 0630 Results 24 hrs Laboratory Tests Test 08/22/16 18:00 08/23/16 00:14 08/23/16 05:00 08/23/16 06:30 Bedside Glucose 210 212 Basophils # 0.0 Basophils % 0.3 Blood Morphology Comment Eosinophils # 0.3 Eosinophils % 2.0 Hematocrit 27.1 L Hemoglobin 9.3 L Lymphocytes # 1.6 Lymphocytes % 10.8 L Magnesium Level 2.8 H Mean Corpuscular Hemoglobin 31.7 Mean Corpuscular Hemoglobin Concent 34.3 Mean Corpuscular Volume 92.2 Mean Platelet Volume 8.8 Monocytes # 1.4 H Monocytes % 9.6 Neutrophils # 11.6 H Neutrophils % 77.3 H Nucleated Red Blood Cells # 0.0 Nucleated Red Blood Cells % 0.0 Phosphorus Level 7.4 H Platelet Count 237 Red Blood Count 2.94 L Red Cell Distribution Width 15.3 H White Blood Count 15.1 H Anion Gap 27 H Blood Urea Nitrogen 119 H Calcium Level 8.3 L Carbon Dioxide Level 25 Chloride Level 91 L Creatinine 7.02 H Glucose Level 209 INR International Normalized Ratio 1.47 Potassium Level 4.7 Prothrombin Time 17.9 H Prothrombin Time Ratio 1.4 Sodium Level 138 Test 08/23/16 07:14 Bedside Glucose 222 H Medications Medications Current Medications Labetalol HCl (Labetalol) 10 mg Q6H PRN IV sbp > 160 Last administered on 18:33; Admin Dose 10 MG; Start 07/28/16 at 00:30 Acetaminophen (Tylenol Supp) 650 mg Q6H PRN [place] PAIN AND OR ELEVATED TEMP Last administered on 07/31/16 17:30; Admin Dose 650 MG; Start 07/28/16 at 08:30 Miscellaneous Information 1 ea NOTE XX ; Start 07/28/16 at 09:00 Glucose (Glutose) 15 gm Q15M PRN PO DECREASED GLUCOSE; Start 07/28/16 at 09:00 Glucose (Glutose) 22.5 gm Q15M PRN PO DECREASED GLUCOSE; Start 07/28/16 at 09: 00 Dextrose (D50w Syringe) 25 ml Q15M PRN IV DECREASED GLUCOSE; Start 07/28/16 at 09:00 Dextrose (D50w Syringe) 50 ml Q15M PRN IV DECREASED GLUCOSE; Start 07/28/16 at 09:00 Glucagon (Glucagen) 1 mg Q15M PRN IM DECREASED GLUCOSE; Start 07/28/16 at 09:00 Glucose (Glutose) 15 gm Q15M PRN BUCCAL DECREASED GLUCOSE; Start 07/28/16 at 09 :00 IV Flush (NS 10 ml) 10 ml PRN PRN IV IV PROTOCOL; Start 07/29/16 at 17:00 Morphine Sulfate (morphine) 2 mg Q4 PRN IV PAIN Last administered on 08/12/16 23:38; Admin Dose 2 MG; Start 07/31/16 at 12:00 Lorazepam (Ativan) 1 mg Q1H PRN IV SEIZURES Last administered on 08/11/16 12:25 ; Admin Dose 1 MG; Start 08/02/16 at 02:00 Acetaminophen 650 mg 650 mg Q4H PRN NGT PAIN AND OR ELEVATED TEMP Last administered on 08/23/16 11:16; Admin Dose 650 MG; Start 08/03/16 at 00:00 Valproate Sodium/ Sodium Chloride (Depacon/NS) 57.5 ml @ 55 mls/hr Q6 IVPB Last administered on 08/23/16 07:21; Admin Dose 55 MLS/HR; Start 08/04/16 at 13: 00 Calcium Acetate (Phoslo) 667 mg Q6 NGT Last administered on 08/23/16 07:15; Admin Dose 667 MG; Start 08/05/16 at 08:30 Hydralazine HCl 10 mg 10 mg Q4H PRN IV ELEVATED SYSTOLIC BP Last administered on 08/20/16 06:30; Admin Dose 10 MG; Start 08/06/16 at 01:30 Levetiracetam/ Sodium Chloride (Keppra Iv/NS) 107.5 ml @ 420 mls/hr DAILY IVPB Last administered on 08/23/16 10:32; Admin Dose 420 MLS/HR; Start 08/08/16 at 09:00 Eye Lubricant (Artificial Tears Oph) 2 drop TID BOTH EYES Last administered on 08/23/16 10:32; Admin Dose 2 DROP; Start 08/13/16 at 09:00 Metoprolol Tartrate (Lopressor) 50 mg BID NGT Last administered on 08/23/16 10 :31; Admin Dose 50 MG; Start 08/15/16 at 21:00 Amiodarone HCl (Cordarone) 200 mg DAILY NGT Last administered on 08/23/16 10: 31; Admin Dose 200 MG; Start 08/18/16 at 09:00 Lansoprazole (Prevacid) 30 mg DAILY@06 NGT Last administered on 08/23/16 07:15 ; Admin Dose 30 MG; Start 08/18/16 at 06:00 Insulin Aspart (Novolog Insulin Pen) NOVOLOG *MODERATE* ALGORI... Q6 SC Last administered on 08/23/16 07:17; Admin Dose 6 UNIT; Start 08/19/16 at 00:00 Warfarin Sodium (Coumadin) 5 mg DAILY@17 PO Last administered on 08/22/16 18: 02; Admin Dose 5 MG; Start 08/19/16 at 17:00 Insulin Human NPH (Humulin N) 40 unit ,, SC Last administered on 10:56; Admin Dose 40 UNIT; Start 08/20/16 at 17:30 Zinc Oxide (Desitin) 1 applic PRN PRN TOP RASH Last administered on 08/22/16 16:14; Admin Dose 1 APPLIC; Start 08/21/16 at 17:30 Sodium Bicarbonate (Sodium Bicarbonate Tab) 650 mg Q8 NGT Last administered on 08/23/16 07:15; Admin Dose 650 MG; Start 08/22/16 at 22:00 ARABELLA GA MD Aug 23, 2016 12:44
[2016-08-23] MEDS: WARFARIN 5 MG TAB PO SCH (19:55)
[2016-08-24] VITALS (36 sets, daily range): BP systolic 89–164; BP diastolic 46–79; PULSE 82–99; RESP 16–25
[2016-08-24] MEDS: IPRATROPIUM (HFA) 12.9 GM INHALER INH SCH ×6 (00:59→20:02)
[2016-08-24] MEDS: ALBUTEROL HFA 8 GM INHALER INH SCH ×6 (01:00→20:02)
[2016-08-24] MEDS: CALCIUM ACETATE 667 MG CAP NGT SCH ×5 (01:09→22:30)
[2016-08-24] MEDS: VALPROATE INJ 750 MG in SOD CHLORIDE 0.9% 50 ML IVPB SCH ×5 (01:09→22:31)
[2016-08-24] MEDS: NPH, HUMAN INSULIN ISOPHANE 3ML VIAL SC SCH ×4 (01:19→22:33)
[2016-08-24] MEDS: INSULIN ASPART [NOVOLOG] 3 ML PEN SC SCH ×5 (06:00→22:33)
[2016-08-24] MEDS: LANSOPRAZOLE 30 MG CAP NGT SCH (06:27)
[2016-08-24] MEDS: NA BICARBONATE 650 MG TAB NGT SCH ×3 (06:27→22:30)
[2016-08-24 07:48] LABS: ALBUMIN 3.3 g/dl (3.3-4.9); POTASSIUM 5.9 mmol/L (3.5-5.1)
[2016-08-24 07:51] LABS: ALBUMIN/GLOBULIN RATIO 0.84; CALCIUM 8.2 mg/dl (8.4-10.2); TOTAL PROTEIN 7.2 g/dl (6.1-8.1)
[2016-08-24 07:52] LABS: INR 1.74; PROTIME 20.5 Sec (12.2-14.2); PT RATIO 1.6
--- NOTE | 2016-08-24 08:20 | CONS ---
Date/Time of Note Date/Time of Note DATE: 08/24/16 TIME: 08:19 Assessment/Plan Assessment/Plan Chief Complaint/Hosp Course #1 end-stage renal disease . He has hemodialysis ordered for today and tomorrow . His BUN continues to run high . I will decrease tube feeding rate and have dietary consult . . #2 the patient is status post a cardiac arrest at home #3 altered level of consciousness, probable anoxic encephalopathy. #4 insulin-dependent diabetes mellitus #5 seizures #6 ventilator dependent respiratory failure , h/o COPD and pneumonia on CXR . #7 hyperphosphatemia , calcium acetate is being given . #8 new onset A fib , he was cardioverted and now is off heparin drip because of bleeding around his trachea .. #9 dietary consult ordered , will decrease tube feeding rate to 30 cc/hr . Problems: Consultation Date/Type/Reason Admit Date/Time Jul 27, 2016 at 23:29 Initial Consult Date 07/28/16 Type of Consultation: Pulmonary Referring Provider: BARNEY MCKEE 24 HR Interval Summary Free Text/Dictation He bis unresponsive on a ventilator Subjective hx not possible: pt non-verbal Exam/Review of Systems Vital Signs Vitals Vital Signs Date Time Temp Pulse Resp B/P Pulse Ox O2 Delivery O2 Flow Rate FiO2 08/24/16 08:12 94 08/24/16 07:30 99.9 18 141/65 96 08/24/16 07:28 30 Intake and Output 08/23/16 08/23/16 08/24/16 15:00 23:00 07:00 Intake Total 700 ml 600 ml Output Total 240 ml Balance 700 ml 360 ml Exam Constitutional: non-verbal Respiratory: clear to auscultation, diminished breath sounds Cardiovascular: regular rate and rhythm Gastrointestinal: soft Musculoskeletal: nl extremities to inspection Results Result Diagram: 08/23/16 0500 08/24/16 0700 Results 24 hrs Laboratory Tests Test 08/23/16 13:18 08/23/16 18:17 08/23/16 21:04 08/24/16 01:17 Bedside Glucose 162 115 106 128 Test 08/24/16 04:29 08/24/16 06:31 08/24/16 07:00 Bedside Glucose 115 123 Alanine Aminotransferase (ALT/SGPT) 35 Albumin 3.3 Albumin/Globulin Ratio 0.84 Alkaline Phosphatase 94 Anion Gap 31 H Aspartate Amino Transf (AST/SGOT) 65 H Blood Urea Nitrogen 150 H Calcium Level 8.2 L Carbon Dioxide Level 23 Chloride Level 89 L Creatinine Pending Direct Bilirubin 0.00 Globulin 3.90 H Glucose Level 120 # INR International Normalized Ratio 1.74 Indirect Bilirubin 0.0 Potassium Level 5.9 H Prothrombin Time 20.5 H Prothrombin Time Ratio 1.6 Sodium Level 137 Total Bilirubin 0.0 L Total Protein 7.2 Medications Medications Current Medications Labetalol HCl (Labetalol) 10 mg Q6H PRN IV sbp > 160 Last administered on 18:33; Admin Dose 10 MG; Start 07/28/16 at 00:30 Acetaminophen (Tylenol Supp) 650 mg Q6H PRN [place] PAIN AND OR ELEVATED TEMP Last administered on 07/31/16 17:30; Admin Dose 650 MG; Start 07/28/16 at 08:30 Miscellaneous Information 1 ea NOTE XX ; Start 07/28/16 at 09:00 Glucose (Glutose) 15 gm Q15M PRN PO DECREASED GLUCOSE; Start 07/28/16 at 09:00 Glucose (Glutose) 22.5 gm Q15M PRN PO DECREASED GLUCOSE; Start 07/28/16 at 09: 00 Dextrose (D50w Syringe) 25 ml Q15M PRN IV DECREASED GLUCOSE; Start 07/28/16 at 09:00 Dextrose (D50w Syringe) 50 ml Q15M PRN IV DECREASED GLUCOSE; Start 07/28/16 at 09:00 Glucagon (Glucagen) 1 mg Q15M PRN IM DECREASED GLUCOSE; Start 07/28/16 at 09:00 Glucose (Glutose) 15 gm Q15M PRN BUCCAL DECREASED GLUCOSE; Start 07/28/16 at 09 :00 IV Flush (NS 10 ml) 10 ml PRN PRN IV IV PROTOCOL; Start 07/29/16 at 17:00 Morphine Sulfate (morphine) 2 mg Q4 PRN IV PAIN Last administered on 08/12/16 23:38; Admin Dose 2 MG; Start 07/31/16 at 12:00 Lorazepam (Ativan) 1 mg Q1H PRN IV SEIZURES Last administered on 08/11/16 12:25 ; Admin Dose 1 MG; Start 08/02/16 at 02:00 Acetaminophen 650 mg 650 mg Q4H PRN NGT PAIN AND OR ELEVATED TEMP Last administered on 08/23/16 11:16; Admin Dose 650 MG; Start 08/03/16 at 00:00 Valproate Sodium/ Sodium Chloride (Depacon/NS) 57.5 ml @ 55 mls/hr Q6 IVPB Last administered on 08/24/16 06:27; Admin Dose 55 MLS/HR; Start 08/04/16 at 13: 00 Calcium Acetate (Phoslo) 667 mg Q6 NGT Last administered on 08/24/16 06:27; Admin Dose 667 MG; Start 08/05/16 at 08:30 Hydralazine HCl 10 mg 10 mg Q4H PRN IV ELEVATED SYSTOLIC BP Last administered on 08/20/16 06:30; Admin Dose 10 MG; Start 08/06/16 at 01:30 Levetiracetam/ Sodium Chloride (Keppra Iv/NS) 107.5 ml @ 420 mls/hr DAILY IVPB Last administered on 08/23/16 10:32; Admin Dose 420 MLS/HR; Start 08/08/16 at 09:00 Eye Lubricant (Artificial Tears Oph) 2 drop TID BOTH EYES Last administered on 08/23/16 21:05; Admin Dose 2 DROP; Start 08/13/16 at 09:00 Metoprolol Tartrate (Lopressor) 50 mg BID NGT Last administered on 08/23/16 21 :18; Admin Dose 50 MG; Start 08/15/16 at 21:00 Amiodarone HCl (Cordarone) 200 mg DAILY NGT Last administered on 08/23/16 10: 31; Admin Dose 200 MG; Start 08/18/16 at 09:00 Lansoprazole (Prevacid) 30 mg DAILY@06 NGT Last administered on 08/24/16 06:27 ; Admin Dose 30 MG; Start 08/18/16 at 06:00 Insulin Aspart (Novolog Insulin Pen) NOVOLOG *MODERATE* ALGORI... Q6 SC Last administered on 08/23/16 13:45; Admin Dose 2 UNIT; Start 08/19/16 at 00:00 Warfarin Sodium (Coumadin) 5 mg DAILY@17 PO Last administered on 08/23/16 19: 55; Admin Dose 5 MG; Start 08/19/16 at 17:00 Zinc Oxide (Desitin) 1 applic PRN PRN TOP RASH Last administered on 08/22/16 16:14; Admin Dose 1 APPLIC; Start 08/21/16 at 17:30 Sodium Bicarbonate (Sodium Bicarbonate Tab) 650 mg Q8 NGT Last administered on 08/24/16 06:27; Admin Dose 650 MG; Start 08/22/16 at 22:00 Insulin Human NPH (Humulin N) 44 unit 01,,17 SC Last administered on 01:19; Admin Dose 44 UNIT; Start 08/23/16 at 17:00 ROSCOE LANGE MD Aug 24, 2016 08:20
[2016-08-24 08:41] LABS: CREATININE 9.05 mg/dl (0.61-1.24)
[2016-08-24 09:01] LABS: MAGNESIUM 3.1 mg/dl (1.7-2.5); PHOSPHORUS 9.3 mg/dl (2.5-4.9)
[2016-08-24] MEDS: ARFORMOTEROL TARTRATE 15MCG/2 ML AMP NEB SCH ×2 (09:08→19:44)
[2016-08-24] MEDS: ARTIFICIAL TEARS 15 ML OPH BOTH EYES SCH ×3 (09:37→22:32)
[2016-08-24] MEDS: AMIODARONE 200 MG TAB NGT SCH (09:37)
[2016-08-24] MEDS: METOPROLOL 50 MG TAB NGT SCH ×2 (09:38→21:00)
[2016-08-24] MEDS: BUDESONIDE (NEB) 0.5MG/2ML AMP HHN SCH ×2 (09:41→19:44)
[2016-08-24 09:43] LABS: BASOPHIL # 0.1 10^3/ul (0.0-0.1); BASOPHILS % 0.4 % (0.0-2.0); EOSINOPHILS # 0.4 10^3/ul (0.0-0.5); EOSINOPHILS % 2.6 % (0.0-7.0); HEMATOCRIT 26.2 % (42.0-52.0); HEMOGLOBIN 9.1 g/dl (14.0-18.0); LYMPHOCYTES # 1.7 10^3/ul (0.8-2.9); LYMPHOCYTES % 11.1 % (15.0-51.0); MEAN CORPUSCULAR HGB CONC 34.6 g/dl (32.0-37.0); MEAN CORPUSCULAR VOLUME 92.3 fl (82.0-101.0); MONOCYTE # 1.4 10^3/ul (0.3-0.9); MONOCYTES % 9.2 % (0.0-11.0); NEUTROPHIL # 11.7 10^3/ul (1.6-7.5); NEUTROPHILS % 76.7 % (39.0-77.0); PLATELET COUNT 250 10^3/UL (140-440); RED BLOOD COUNT 2.84 10^6/ul (4.70-6.10); RED CELL DISTRIBUTION WIDTH 15.6 % (11.5-14.5); UNCORRECTED WBC 15.2 10^3/ul (4.8-10.8); WHITE BLOOD COUNT 15.2 10^3/ul (4.8-10.8)
[2016-08-24 09:46] LABS: CONDITION 1; LH ANALYZER COMMENTS 1
[2016-08-24] MEDS: LEVETIRACETAM IV 750 MG in SOD CHLORIDE 0.9% 100 ML IVPB SCH (09:55)
--- NOTE | 2016-08-24 10:32 | PN ---
Date/Time of Note Date/Time of Note DATE: 08/24/16 TIME: 10:30 Assessment/Plan VTE Prophylaxis VTE Prophylaxis Intervention: other (Warfarin) Lines/Catheters IV [facility] Type ([facility] PICC Line Central line still needed: Yes Urinary Cath still in place: No Assessment/Plan Chief Complaint/Hosp Course 1. Status post cardiac arrest secondary to PEA. Status post trach and PEG. Family hesitant on changing the code status. 2. Acute respiratory failure, hypoxic. Continue ventilator management as per pulmonary. Continue inhaled bronchodilators. 3. End-stage renal disease on hemodialysis. Continue hemodialysis as per nephrology. 4. Status post systemic inflammatory response syndrome. Status post antibiotics. 5. Atrial fibrillation with rapid ventricular response. Currently in sinus rhythm. On amiodarone and metoprolol. On warfarin for stroke prophylaxis. 6. Type 2 diabetes mellitus. Hemoglobin A1c 7.3. Continue insulin sliding scale along with Lantus insulin. 7. Essential hypertension. Continue antihypertensives. 8. Seizure disorder. Most probably secondary to anoxia. Continue anticonvulsants. 9. Possible underlying anoxic encephalopathy. 10. Normocytic normochromic anemia, most probably anemia of chronic kidney disease. Will monitor H and H closely. 11. Fluid, electrolytes and nutrition. Continue NG tube feedings. 12. Deep venous thrombosis prophylaxis. On warfarin. 13. Gastrointestinal prophylaxis. Proton pump inhibitors. PLAN: Continue inpatient care. [facility] facility. The case was discussed with Dr. Nguyen. Problems: Subjective 24 Hr Interval Summary Free Text/Dictation Continues to have a low-grade fever. No other changes in status. Exam/Review of Systems Vital Signs Vitals Vital Signs Date Time Temp Pulse Resp B/P Pulse Ox O2 Delivery O2 Flow Rate FiO2 08/24/16 09:19 96 17 98 30 08/24/16 07:30 99.9 141/65 Intake and Output 08/23/16 08/23/16 08/24/16 15:00 23:00 07:00 Intake Total 700 ml 600 ml Output Total 240 ml Balance 700 ml 360 ml Exam GENERAL: This is an obese male patient lying in bed with tracheostomy to vent, in no apparent distress. HEENT: Head normocephalic and atraumatic. Eyes: Anicteric sclerae. Conjunctivae clear. ENT: Nasal septum Oral mucosa is dry. NECK: Supple. Tracheostomy midline. RESPIRATORY: Bilateral diminished breath sounds. A tracheostomy connected to mechanical ventilator. On AC mode ventilation. Diminished breath sounds bilaterally. CARDIAC: Regular rate and rhythm. No obvious murmurs heard. ABDOMEN: Soft, nontender and nondistended. Left upper quadrant G-tube in place. GENITOURINARY: The patient has a rectal tube in place. EXTREMITIES: No cyanosis, no clubbing, no edema. Peripheral pulses are palpable. NEUROLOGIC: The patient is obtunded. Opens eyes. Does not follow any commands. Results Result Diagram: 08/24/16 0700 08/24/16 0700 Results 24 hrs Laboratory Tests Test 08/23/16 13:18 08/23/16 18:17 08/23/16 21:04 08/24/16 01:17 Bedside Glucose 162 115 106 128 Test 08/24/16 04:29 08/24/16 06:31 08/24/16 07:00 Bedside Glucose 115 123 Alanine Aminotransferase (ALT/SGPT) 35 Albumin 3.3 Albumin/Globulin Ratio 0.84 Alkaline Phosphatase 94 Anion Gap 31 H Aspartate Amino Transf (AST/SGOT) 65 H Basophils # 0.1 Basophils % 0.4 Blood Morphology Comment Blood Urea Nitrogen 150 H Calcium Level 8.2 L Carbon Dioxide Level 23 Chloride Level 89 L Creatinine 9.05 #H Direct Bilirubin 0.00 Eosinophils # 0.4 Eosinophils % 2.6 Globulin 3.90 H Glucose Level 120 # Hematocrit 26.2 L Hemoglobin 9.1 L INR International Normalized Ratio 1.74 Indirect Bilirubin 0.0 Lymphocytes # 1.7 Lymphocytes % 11.1 L Magnesium Level 3.1 H Mean Corpuscular Hemoglobin 32.0 Mean Corpuscular Hemoglobin Concent 34.6 Mean Corpuscular Volume 92.3 Mean Platelet Volume 9.0 Monocytes # 1.4 H Monocytes % 9.2 Neutrophils # 11.7 H Neutrophils % 76.7 Nucleated Red Blood Cells # 0.0 Nucleated Red Blood Cells % 0.0 Phosphorus Level 9.3 H Platelet Count 250 Potassium Level 5.9 H Prothrombin Time 20.5 H Prothrombin Time Ratio 1.6 Red Blood Count 2.84 L Red Cell Distribution Width 15.6 H Sodium Level 137 Total Bilirubin 0.0 L Total Protein 7.2 White Blood Count 15.2 H Medications Medications Current Medications Labetalol HCl (Labetalol) 10 mg Q6H PRN IV sbp > 160 Last administered on 18:33; Admin Dose 10 MG; Start 07/28/16 at 00:30 Acetaminophen (Tylenol Supp) 650 mg Q6H PRN [place] PAIN AND OR ELEVATED TEMP Last administered on 07/31/16 17:30; Admin Dose 650 MG; Start 07/28/16 at 08:30 Miscellaneous Information 1 ea NOTE XX ; Start 07/28/16 at 09:00 Glucose (Glutose) 15 gm Q15M PRN PO DECREASED GLUCOSE; Start 07/28/16 at 09:00 Glucose (Glutose) 22.5 gm Q15M PRN PO DECREASED GLUCOSE; Start 07/28/16 at 09: 00 Dextrose (D50w Syringe) 25 ml Q15M PRN IV DECREASED GLUCOSE; Start 07/28/16 at 09:00 Dextrose (D50w Syringe) 50 ml Q15M PRN IV DECREASED GLUCOSE; Start 07/28/16 at 09:00 Glucagon (Glucagen) 1 mg Q15M PRN IM DECREASED GLUCOSE; Start 07/28/16 at 09:00 Glucose (Glutose) 15 gm Q15M PRN BUCCAL DECREASED GLUCOSE; Start 07/28/16 at 09 :00 IV Flush (NS 10 ml) 10 ml PRN PRN IV IV PROTOCOL; Start 07/29/16 at 17:00 Morphine Sulfate (morphine) 2 mg Q4 PRN IV PAIN Last administered on 08/12/16 23:38; Admin Dose 2 MG; Start 07/31/16 at 12:00 Lorazepam (Ativan) 1 mg Q1H PRN IV SEIZURES Last administered on 08/11/16 12:25 ; Admin Dose 1 MG; Start 08/02/16 at 02:00 Acetaminophen 650 mg 650 mg Q4H PRN NGT PAIN AND OR ELEVATED TEMP Last administered on 08/23/16 11:16; Admin Dose 650 MG; Start 08/03/16 at 00:00 Valproate Sodium/ Sodium Chloride (Depacon/NS) 57.5 ml @ 55 mls/hr Q6 IVPB Last administered on 08/24/16 06:27; Admin Dose 55 MLS/HR; Start 08/04/16 at 13: 00 Calcium Acetate (Phoslo) 667 mg Q6 NGT Last administered on 08/24/16 06:27; Admin Dose 667 MG; Start 08/05/16 at 08:30 Hydralazine HCl 10 mg 10 mg Q4H PRN IV ELEVATED SYSTOLIC BP Last administered on 08/20/16 06:30; Admin Dose 10 MG; Start 08/06/16 at 01:30 Levetiracetam/ Sodium Chloride (Keppra Iv/NS) 107.5 ml @ 420 mls/hr DAILY IVPB Last administered on 08/24/16 09:55; Admin Dose 420 MLS/HR; Start 08/08/16 at 09:00 Eye Lubricant (Artificial Tears Oph) 2 drop TID BOTH EYES Last administered on 08/24/16 09:37; Admin Dose 2 DROP; Start 08/13/16 at 09:00 Metoprolol Tartrate (Lopressor) 50 mg BID NGT Last administered on 08/24/16 09 :38; Admin Dose 50 MG; Start 08/15/16 at 21:00 Amiodarone HCl (Cordarone) 200 mg DAILY NGT Last administered on 08/24/16 09: 37; Admin Dose 200 MG; Start 08/18/16 at 09:00 Lansoprazole (Prevacid) 30 mg DAILY@06 NGT Last administered on 08/24/16 06:27 ; Admin Dose 30 MG; Start 08/18/16 at 06:00 Insulin Aspart (Novolog Insulin Pen) NOVOLOG *MODERATE* ALGORI... Q6 SC Last administered on 08/23/16 13:45; Admin Dose 2 UNIT; Start 08/19/16 at 00:00 Warfarin Sodium (Coumadin) 5 mg DAILY@17 PO Last administered on 08/23/16 19: 55; Admin Dose 5 MG; Start 08/19/16 at 17:00 Zinc Oxide (Desitin) 1 applic PRN PRN TOP RASH Last administered on 08/22/16 16:14; Admin Dose 1 APPLIC; Start 08/21/16 at 17:30 Sodium Bicarbonate (Sodium Bicarbonate Tab) 650 mg Q8 NGT Last administered on 08/24/16 06:27; Admin Dose 650 MG; Start 08/22/16 at 22:00 Insulin Human NPH (Humulin N) 44 unit , SC Last administered on 09:50; Admin Dose 44 UNIT; Start 08/23/16 at 17:00 MICHAEL OLIVER NP Aug 24, 2016 10:32
--- NOTE | 2016-08-24 11:16 | CONS ---
Date/Time of Note Date/Time of Note DATE: 08/24/16 TIME: 11:13 Assessment/Plan Assessment/Plan Additional Assessment/Plan Ventilator settings; assist control of 16, tidal volume 650, PEEP of 5, 30% FiO2. Next Assessment and recommendation; 1. Patient admitted with sepsis with interval resolution. Off antibiotics now. 2. Chronic respiratory failure due to anoxic encephalopathy. 3. Hypertension. 4. Diabetes. 5. Cardiac arrhythmia. 6. End-stage renal disease. 7. Tracheal bleed without any recurrence. Continue supportive care. Patient awaiting discharge. Consultation Date/Type/Reason Admit Date/Time Jul 27, 2016 at 23:29 Initial Consult Date 07/28/16 Type of Consultation: Pulmonary Referring Provider: BARNEY MCKEE 24 HR Interval Summary Free Text/Dictation Patient's condition remains stable. Has remained hemodynamically stable. No seizure activity noted. No further tracheal bleed. General examination; elderly male, on ventilator via tracheostomy currently in no distress. Patient remains unresponsive. Exam/Review of Systems Vital Signs Vitals Vital Signs Date Time Temp Pulse Resp B/P Pulse Ox O2 Delivery O2 Flow Rate FiO2 08/24/16 11:06 99.6 87 18 134/65 93 08/24/16 11:02 30 Intake and Output 08/23/16 08/23/16 08/24/16 15:00 23:00 07:00 Intake Total 700 ml 600 ml Output Total 240 ml Balance 700 ml 360 ml Exam H EENT examination; supple neck, no JVD. No lymphadenopathy. Tracheostomy in place. There is mild crusting of blood around the insertion site. No active bleeding seen. Patient is edentulous. Pupils are midsize and reactive to light. No neck masses. No thyromegaly. Chest examination; clear to auscultation bilaterally. S1-S2 audible, no murmurs. Regular rhythm. Abdomen examination; soft, G-tube in place. No organomegaly bowel sounds audible. Extremity examination; no peripheral edema. Pulses 2+ bilaterally. LICENSED MASSAGE THERAPIST examination; patient remains unresponsive. Results Result Diagram: 08/24/16 0700 08/24/16 0700 Results 24 hrs Laboratory Tests Test 08/23/16 13:18 08/23/16 18:17 08/23/16 21:04 08/24/16 01:17 Bedside Glucose 162 115 106 128 Test 08/24/16 04:29 08/24/16 06:31 08/24/16 07:00 Bedside Glucose 115 123 Alanine Aminotransferase (ALT/SGPT) 35 Albumin 3.3 Albumin/Globulin Ratio 0.84 Alkaline Phosphatase 94 Anion Gap 31 H Aspartate Amino Transf (AST/SGOT) 65 H Basophils # 0.1 Basophils % 0.4 Blood Morphology Comment Blood Urea Nitrogen 150 H Calcium Level 8.2 L Carbon Dioxide Level 23 Chloride Level 89 L Creatinine 9.05 #H Direct Bilirubin 0.00 Eosinophils # 0.4 Eosinophils % 2.6 Globulin 3.90 H Glucose Level 120 # Hematocrit 26.2 L Hemoglobin 9.1 L INR International Normalized Ratio 1.74 Indirect Bilirubin 0.0 Lymphocytes # 1.7 Lymphocytes % 11.1 L Magnesium Level 3.1 H Mean Corpuscular Hemoglobin 32.0 Mean Corpuscular Hemoglobin Concent 34.6 Mean Corpuscular Volume 92.3 Mean Platelet Volume 9.0 Monocytes # 1.4 H Monocytes % 9.2 Neutrophils # 11.7 H Neutrophils % 76.7 Nucleated Red Blood Cells # 0.0 Nucleated Red Blood Cells % 0.0 Phosphorus Level 9.3 H Platelet Count 250 Potassium Level 5.9 H Prothrombin Time 20.5 H Prothrombin Time Ratio 1.6 Red Blood Count 2.84 L Red Cell Distribution Width 15.6 H Sodium Level 137 Total Bilirubin 0.0 L Total Protein 7.2 White Blood Count 15.2 H Medications Medications Current Medications Labetalol HCl (Labetalol) 10 mg Q6H PRN IV sbp > 160 Last administered on 18:33; Admin Dose 10 MG; Start 07/28/16 at 00:30 Acetaminophen (Tylenol Supp) 650 mg Q6H PRN [place] PAIN AND OR ELEVATED TEMP Last administered on 07/31/16 17:30; Admin Dose 650 MG; Start 07/28/16 at 08:30 Miscellaneous Information 1 ea NOTE XX ; Start 07/28/16 at 09:00 Glucose (Glutose) 15 gm Q15M PRN PO DECREASED GLUCOSE; Start 07/28/16 at 09:00 Glucose (Glutose) 22.5 gm Q15M PRN PO DECREASED GLUCOSE; Start 07/28/16 at 09: 00 Dextrose (D50w Syringe) 25 ml Q15M PRN IV DECREASED GLUCOSE; Start 07/28/16 at 09:00 Dextrose (D50w Syringe) 50 ml Q15M PRN IV DECREASED GLUCOSE; Start 07/28/16 at 09:00 Glucagon (Glucagen) 1 mg Q15M PRN IM DECREASED GLUCOSE; Start 07/28/16 at 09:00 Glucose (Glutose) 15 gm Q15M PRN BUCCAL DECREASED GLUCOSE; Start 07/28/16 at 09 :00 IV Flush (NS 10 ml) 10 ml PRN PRN IV IV PROTOCOL; Start 07/29/16 at 17:00 Morphine Sulfate (morphine) 2 mg Q4 PRN IV PAIN Last administered on 08/12/16 23:38; Admin Dose 2 MG; Start 07/31/16 at 12:00 Lorazepam (Ativan) 1 mg Q1H PRN IV SEIZURES Last administered on 08/11/16 12:25 ; Admin Dose 1 MG; Start 08/02/16 at 02:00 Acetaminophen 650 mg 650 mg Q4H PRN NGT PAIN AND OR ELEVATED TEMP Last administered on 08/23/16 11:16; Admin Dose 650 MG; Start 08/03/16 at 00:00 Valproate Sodium/ Sodium Chloride (Depacon/NS) 57.5 ml @ 55 mls/hr Q6 IVPB Last administered on 08/24/16 06:27; Admin Dose 55 MLS/HR; Start 08/04/16 at 13: 00 Calcium Acetate (Phoslo) 667 mg Q6 NGT Last administered on 08/24/16 06:27; Admin Dose 667 MG; Start 08/05/16 at 08:30 Hydralazine HCl 10 mg 10 mg Q4H PRN IV ELEVATED SYSTOLIC BP Last administered on 08/20/16 06:30; Admin Dose 10 MG; Start 08/06/16 at 01:30 Levetiracetam/ Sodium Chloride (Keppra Iv/NS) 107.5 ml @ 420 mls/hr DAILY IVPB Last administered on 08/24/16 09:55; Admin Dose 420 MLS/HR; Start 08/08/16 at 09:00 Eye Lubricant (Artificial Tears Oph) 2 drop TID BOTH EYES Last administered on 08/24/16 09:37; Admin Dose 2 DROP; Start 08/13/16 at 09:00 Metoprolol Tartrate (Lopressor) 50 mg BID NGT Last administered on 08/24/16 09 :38; Admin Dose 50 MG; Start 08/15/16 at 21:00 Amiodarone HCl (Cordarone) 200 mg DAILY NGT Last administered on 08/24/16 09: 37; Admin Dose 200 MG; Start 08/18/16 at 09:00 Lansoprazole (Prevacid) 30 mg DAILY@06 NGT Last administered on 08/24/16 06:27 ; Admin Dose 30 MG; Start 08/18/16 at 06:00 Insulin Aspart (Novolog Insulin Pen) NOVOLOG *MODERATE* ALGORI... Q6 SC Last administered on 08/23/16 13:45; Admin Dose 2 UNIT; Start 08/19/16 at 00:00 Warfarin Sodium (Coumadin) 5 mg DAILY@17 PO Last administered on 08/23/16 19: 55; Admin Dose 5 MG; Start 08/19/16 at 17:00 Zinc Oxide (Desitin) 1 applic PRN PRN TOP RASH Last administered on 08/22/16 16:14; Admin Dose 1 APPLIC; Start 08/21/16 at 17:30 Sodium Bicarbonate (Sodium Bicarbonate Tab) 650 mg Q8 NGT Last administered on 08/24/16 06:27; Admin Dose 650 MG; Start 08/22/16 at 22:00 Insulin Human NPH (Humulin N) 44 unit SC Last administered on 09:50; Admin Dose 44 UNIT; Start 08/23/16 at 17:00 AMOR RODRIGUES Aug 24, 2016 11:16
[2016-08-24] MEDS: WARFARIN 5 MG TAB PO SCH (17:00)
--- NOTE | 2016-08-24 18:47 | CONS ---
Date/Time of Note Date/Time of Note DATE: 08/24/16 TIME: 18:46 Assessment/Plan Assessment/Plan Chief Complaint/Hosp Course Unfortunate 56-year-old gentleman who came in after suffering respiratory arrest which induced cardiac arrest. He has a significant anoxic encephalopathy post event and has not shown significant improvement. He is ventilator dependent and feeding tube dependent. Premorbid he had end-stage renal disease and was dialysis dependent. He is on continuous tube feedings. In the recent past he has had some changes in the way his temperature is been spiking although he has been having fevers for more some of his hospitalization which were likely central fevers Problems: (1) Type 2 diabetes mellitus with hypertension and end stage renal disease on dialysis Status: Chronic Comment: His current insulin regimen with his tube feedings he is doing relatively well. Regarding the interplay with his other issues I will not interfere with my colleagues work as I trust that they have this well in line. His overall prognosis unfortunately remains nil for meaningful recovery in independent living Consultation Date/Type/Reason Admit Date/Time Jul 27, 2016 at 23:29 Initial Consult Date 08/17/16 Type of Consultation: Endocrinology Reason for Consultation Diabetes mellitus type 2 out of control Referring Provider: BARNEY MCKEE 24 HR Interval Summary Free Text/Dictation No changes in status nonresponsive Subjective hx not possible: pt non-verbal Exam/Review of Systems Vital Signs Vitals Vital Signs Date Time Temp Pulse Resp B/P Pulse Ox O2 Delivery O2 Flow Rate FiO2 08/24/16 18:28 92 08/24/16 17:35 16 08/24/16 16:57 98 30 08/24/16 15:22 99.9 146/69 Intake and Output 08/23/16 08/23/16 08/24/16 15:00 23:00 07:00 Intake Total 700 ml 600 ml Output Total 240 ml Balance 700 ml 360 ml Results Result Diagram: 08/24/16 0700 08/24/16 0700 Results 24 hrs Laboratory Tests Test 08/23/16 21:04 08/24/16 01:17 08/24/16 04:29 08/24/16 06:31 Bedside Glucose 106 128 115 123 Test 08/24/16 07:00 08/24/16 17:59 Alanine Aminotransferase (ALT/SGPT) 35 Albumin 3.3 Albumin/Globulin Ratio 0.84 Alkaline Phosphatase 94 Anion Gap 31 H Aspartate Amino Transf (AST/SGOT) 65 H Basophils # 0.1 Basophils % 0.4 Blood Morphology Comment Blood Urea Nitrogen 150 H Calcium Level 8.2 L Carbon Dioxide Level 23 Chloride Level 89 L Creatinine 9.05 #H Direct Bilirubin 0.00 Eosinophils # 0.4 Eosinophils % 2.6 Globulin 3.90 H Glucose Level 120 # Hematocrit 26.2 L Hemoglobin 9.1 L INR International Normalized Ratio 1.74 Indirect Bilirubin 0.0 Lymphocytes # 1.7 Lymphocytes % 11.1 L Magnesium Level 3.1 H Mean Corpuscular Hemoglobin 32.0 Mean Corpuscular Hemoglobin Concent 34.6 Mean Corpuscular Volume 92.3 Mean Platelet Volume 9.0 Monocytes # 1.4 H Monocytes % 9.2 Neutrophils # 11.7 H Neutrophils % 76.7 Nucleated Red Blood Cells # 0.0 Nucleated Red Blood Cells % 0.0 Phosphorus Level 9.3 H Platelet Count 250 Potassium Level 5.9 H Prothrombin Time 20.5 H Prothrombin Time Ratio 1.6 Red Blood Count 2.84 L Red Cell Distribution Width 15.6 H Sodium Level 137 Total Bilirubin 0.0 L Total Protein 7.2 White Blood Count 15.2 H Bedside Glucose 108 Medications Medications Current Medications Labetalol HCl (Labetalol) 10 mg Q6H PRN IV sbp > 160 Last administered on 18:33; Admin Dose 10 MG; Start 07/28/16 at 00:30 Acetaminophen (Tylenol Supp) 650 mg Q6H PRN [place] PAIN AND OR ELEVATED TEMP Last administered on 07/31/16 17:30; Admin Dose 650 MG; Start 07/28/16 at 08:30 Miscellaneous Information 1 ea NOTE XX ; Start 07/28/16 at 09:00 Glucose (Glutose) 15 gm Q15M PRN PO DECREASED GLUCOSE; Start 07/28/16 at 09:00 Glucose (Glutose) 22.5 gm Q15M PRN PO DECREASED GLUCOSE; Start 07/28/16 at 09: 00 Dextrose (D50w Syringe) 25 ml Q15M PRN IV DECREASED GLUCOSE; Start 07/28/16 at 09:00 Dextrose (D50w Syringe) 50 ml Q15M PRN IV DECREASED GLUCOSE; Start 07/28/16 at 09:00 Glucagon (Glucagen) 1 mg Q15M PRN IM DECREASED GLUCOSE; Start 07/28/16 at 09:00 Glucose (Glutose) 15 gm Q15M PRN BUCCAL DECREASED GLUCOSE; Start 07/28/16 at 09 :00 IV Flush (NS 10 ml) 10 ml PRN PRN IV IV PROTOCOL; Start 07/29/16 at 17:00 Morphine Sulfate (morphine) 2 mg Q4 PRN IV PAIN Last administered on 08/12/16 23:38; Admin Dose 2 MG; Start 07/31/16 at 12:00 Lorazepam (Ativan) 1 mg Q1H PRN IV SEIZURES Last administered on 08/11/16 12:25 ; Admin Dose 1 MG; Start 08/02/16 at 02:00 Acetaminophen 650 mg 650 mg Q4H PRN NGT PAIN AND OR ELEVATED TEMP Last administered on 08/23/16 11:16; Admin Dose 650 MG; Start 08/03/16 at 00:00 Valproate Sodium/ Sodium Chloride (Depacon/NS) 57.5 ml @ 55 mls/hr Q6 IVPB Last administered on 08/24/16 12:49; Admin Dose 55 MLS/HR; Start 08/04/16 at 13: 00 Calcium Acetate (Phoslo) 667 mg Q6 NGT Last administered on 08/24/16 12:52; Admin Dose 667 MG; Start 08/05/16 at 08:30 Hydralazine HCl 10 mg 10 mg Q4H PRN IV ELEVATED SYSTOLIC BP Last administered on 08/20/16 06:30; Admin Dose 10 MG; Start 08/06/16 at 01:30 Levetiracetam/ Sodium Chloride (Keppra Iv/NS) 107.5 ml @ 420 mls/hr DAILY IVPB Last administered on 08/24/16 09:55; Admin Dose 420 MLS/HR; Start 08/08/16 at 09:00 Eye Lubricant (Artificial Tears Oph) 2 drop TID BOTH EYES Last administered on 08/24/16 12:50; Admin Dose 2 DROP; Start 08/13/16 at 09:00 Metoprolol Tartrate (Lopressor) 50 mg BID NGT Last administered on 08/24/16 09 :38; Admin Dose 50 MG; Start 08/15/16 at 21:00 Amiodarone HCl (Cordarone) 200 mg DAILY NGT Last administered on 08/24/16 09: 37; Admin Dose 200 MG; Start 08/18/16 at 09:00 Lansoprazole (Prevacid) 30 mg DAILY@06 NGT Last administered on 08/24/16 06:27 ; Admin Dose 30 MG; Start 08/18/16 at 06:00 Insulin Aspart (Novolog Insulin Pen) NOVOLOG *MODERATE* ALGORI... Q6 SC Last administered on 08/23/16 13:45; Admin Dose 2 UNIT; Start 08/19/16 at 00:00 Warfarin Sodium (Coumadin) 5 mg DAILY@17 PO Last administered on 08/23/16 19: 55; Admin Dose 5 MG; Start 08/19/16 at 17:00 Zinc Oxide (Desitin) 1 applic PRN PRN TOP RASH Last administered on 08/22/16 16:14; Admin Dose 1 APPLIC; Start 08/21/16 at 17:30 Sodium Bicarbonate (Sodium Bicarbonate Tab) 650 mg Q8 NGT Last administered on 08/24/16 14:31; Admin Dose 650 MG; Start 08/22/16 at 22:00 Insulin Human NPH (Humulin N) 44 unit SC Last administered on 09:50; Admin Dose 44 UNIT; Start 08/23/16 at 17:00 LOPEZ LOW MD Aug 24, 2016 18:47
--- NOTE | 2016-08-24 21:39 | SP ---
DATE OF PROCEDURE: A 56-year-old gentleman status post cardiopulmonary arrest, unresponsive, history of seizures on [place]. DESCRIPTION OF PROCEDURE: Routine EEG was recorded digitally. [id number] and [id number]-[id number] aida ages were recorded and reviewed. All impedances were measured and recorded. Cap electrodes were pl aced in accordance with International 10-20 system of electrode placement. FINDINGS: Symmetrically distributed background activity of very low amplitudes ranging in frequency between 2 to 4 cycles per second was seen throughout the recording. No epileptiform transients wer e seen. No signs of ongoing electrographic seizures or lateralized slowing. No response to photic stimulation. IMPRESSION: Abnormal study secondary to background slowing which could reflect encephalopathy. Cor relate clinically and could be anoxic or toxic metabolic in etiology. Dictated By: JORDAN EVANGELISTA/BATSHEVA Conf#: [id number] DID#: [id number]
[2016-08-25] VITALS (32 sets, daily range): BP systolic 86–165; BP diastolic 40–78; PULSE 86–109; RESP 16–20
[2016-08-25] MEDS: IPRATROPIUM (HFA) 12.9 GM INHALER INH SCH ×6 (00:50→20:44)
[2016-08-25] MEDS: ALBUTEROL HFA 8 GM INHALER INH SCH ×6 (00:50→20:44)
[2016-08-25] MEDS: CALCIUM ACETATE 667 MG CAP NGT SCH ×4 (06:01→23:35)
[2016-08-25] MEDS: LANSOPRAZOLE 30 MG CAP NGT SCH (06:01)
[2016-08-25] MEDS: NA BICARBONATE 650 MG TAB NGT SCH ×3 (06:01→21:11)
[2016-08-25] MEDS: ACETAMINOPHEN 650MG/20.3ML CUP NGT PRN (06:01)
[2016-08-25] MEDS: VALPROATE INJ 750 MG in SOD CHLORIDE 0.9% 50 ML IVPB SCH ×4 (06:01→23:35)
[2016-08-25] MEDS: INSULIN ASPART [NOVOLOG] 3 ML PEN SC SCH ×4 (06:03→23:42)
[2016-08-25] MEDS: hydrALAzine 20 MG INJ IV PRN (06:05)
[2016-08-25 07:18] LABS: ALBUMIN 3.2 g/dl (3.3-4.9); POTASSIUM 4.5 mmol/L (3.5-5.1)
[2016-08-25 07:21] LABS: ALBUMIN/GLOBULIN RATIO 0.84; CALCIUM 8.4 mg/dl (8.4-10.2)
[2016-08-25 07:23] LABS: MAGNESIUM 2.5 mg/dl (1.7-2.5)
[2016-08-25 07:36] LABS: INR 1.62; PROTIME 19.4 Sec (12.2-14.2); PT RATIO 1.5
[2016-08-25 08:02] LABS: BASOPHILS % 0.3 % (0.0-2.0); EOSINOPHILS # 0.2 10^3/ul (0.0-0.5); EOSINOPHILS % 1.5 % (0.0-7.0); HEMATOCRIT 26.7 % (42.0-52.0); HEMOGLOBIN 8.4 g/dl (14.0-18.0); LYMPHOCYTES # 1.5 10^3/ul (0.8-2.9); LYMPHOCYTES % 11.2 % (15.0-51.0); MEAN CORPUSCULAR HEMOGLOBIN 30.7 pg (29.0-33.0); MEAN CORPUSCULAR HGB CONC 31.5 g/dl (32.0-37.0); MEAN CORPUSCULAR VOLUME 97.4 fl (82.0-101.0); MEAN PLATELET VOLUME 10.6 fl (7.4-10.4); MONOCYTE # 1.3 10^3/ul (0.3-0.9); MONOCYTES % 10.1 % (0.0-11.0); NEUTROPHIL # 9.2 10^3/ul (1.6-7.5); NEUTROPHILS % 69.9 % (39.0-77.0); PLATELET COUNT 222 10^3/UL (140-415); RED BLOOD COUNT 2.74 10^6/ul (4.70-6.10); RED CELL DISTRIBUTION WIDTH 14.8 % (11.5-14.5); WHITE BLOOD COUNT 13.2 10^3/ul (4.8-10.8)
[2016-08-25 08:39] LABS: CREATININE 5.43 mg/dl (0.61-1.24)
[2016-08-25] MEDS: METOPROLOL 50 MG TAB NGT SCH ×2 (09:00→21:13)
[2016-08-25] MEDS: ARTIFICIAL TEARS 15 ML OPH BOTH EYES SCH ×3 (09:00→21:11)
[2016-08-25] MEDS: LEVETIRACETAM IV 750 MG in SOD CHLORIDE 0.9% 100 ML IVPB SCH (09:00)
[2016-08-25] MEDS: NPH, HUMAN INSULIN ISOPHANE 3ML VIAL SC SCH ×3 (09:00→23:47)
[2016-08-25] MEDS: AMIODARONE 200 MG TAB NGT SCH (09:00)
--- NOTE | 2016-08-25 09:07 | CONS ---
Date/Time of Note Date/Time of Note DATE: 08/25/16 TIME: 09:03 Assessment/Plan Assessment/Plan Chief Complaint/Hosp Course #1 end-stage renal disease . He has hemodialysis ordered for today . His BUN is lower today . #2 the patient is status post a cardiac arrest at home #3 altered level of consciousness, probable anoxic encephalopathy. #4 insulin-dependent diabetes mellitus #5 seizures #6 ventilator dependent respiratory failure , h/o COPD and pneumonia on CXR . #7 hyperphosphatemia , calcium acetate is being given . #8 new onset A fib , he was cardioverted and now is off heparin drip because of bleeding around his trachea .. #9 dietary consult ordered , will decrease tube feeding rate to 30 cc/hr . Problems: Consultation Date/Type/Reason Admit Date/Time Jul 27, 2016 at 23:29 Initial Consult Date 07/28/16 Type of Consultation: Endocrinology Referring Provider: BARNEY MCKEE 24 HR Interval Summary Free Text/Dictation He remains unresponsive on ventilator . He had dialysis yesterday . Exam/Review of Systems Vital Signs Vitals Vital Signs Date Time Temp Pulse Resp B/P Pulse Ox O2 Delivery O2 Flow Rate FiO2 08/25/16 08:18 109 08/25/16 06:46 100.6 18 138/64 96 08/25/16 05:09 30 Intake and Output 08/24/16 08/24/16 08/25/16 14:59 22:59 06:59 Intake Total 610 ml 1080 ml 700 ml Output Total 1800 ml Balance 610 ml -720 ml 700 ml Exam Constitutional: non-verbal Respiratory: clear to auscultation Cardiovascular: regular rate and rhythm Gastrointestinal: nl liver, spleen, soft Musculoskeletal: nl extremities to inspection Neurological: unresponsive Results Result Diagram: 08/25/16 0625 08/25/16 0635 Results 24 hrs Laboratory Tests Test 08/24/16 17:59 08/24/16 20:24 08/24/16 22:28 08/25/16 05:47 Bedside Glucose 108 136 160 152 Test 08/25/16 06:25 08/25/16 06:35 Basophils # 0.0 Basophils % 0.3 Eosinophils # 0.2 Eosinophils % 1.5 Hematocrit 26.7 L Hemoglobin 8.4 L Lymphocytes # 1.5 Lymphocytes % 11.2 L Mean Corpuscular Hemoglobin 30.7 Mean Corpuscular Hemoglobin Concent 31.5 L Mean Corpuscular Volume 97.4 Mean Platelet Volume 10.6 H Monocytes # 1.3 H Monocytes % 10.1 Neutrophils # 9.2 H Neutrophils % 69.9 Nucleated Red Blood Cells # 0.0 Nucleated Red Blood Cells % 0.0 Platelet Count 222 # Red Blood Count 2.74 L Red Cell Distribution Width 14.8 H White Blood Count 13.2 H Alanine Aminotransferase (ALT/SGPT) 39 Albumin 3.2 L Albumin/Globulin Ratio 0.84 Alkaline Phosphatase 93 Anion Gap 24 #H Aspartate Amino Transf (AST/SGOT) 69 H Blood Urea Nitrogen 94 #H Calcium Level 8.4 Carbon Dioxide Level 28 Chloride Level 92 L Creatinine 5.43 #H Direct Bilirubin 0.00 Globulin 3.80 H Glucose Level 134 INR International Normalized Ratio 1.62 Indirect Bilirubin 0.0 Magnesium Level 2.5 Phosphorus Level 6.0 #H Potassium Level 4.5 Prothrombin Time 19.4 H Prothrombin Time Ratio 1.5 Sodium Level 139 Total Bilirubin 0.0 L Total Protein 7.0 Medications Medications Current Medications Labetalol HCl (Labetalol) 10 mg Q6H PRN IV sbp > 160 Last administered on 18:33; Admin Dose 10 MG; Start 07/28/16 at 00:30 Acetaminophen (Tylenol Supp) 650 mg Q6H PRN [place] PAIN AND OR ELEVATED TEMP Last administered on 07/31/16 17:30; Admin Dose 650 MG; Start 07/28/16 at 08:30 Miscellaneous Information 1 ea NOTE XX ; Start 07/28/16 at 09:00 Glucose (Glutose) 15 gm Q15M PRN PO DECREASED GLUCOSE; Start 07/28/16 at 09:00 Glucose (Glutose) 22.5 gm Q15M PRN PO DECREASED GLUCOSE; Start 07/28/16 at 09: 00 Dextrose (D50w Syringe) 25 ml Q15M PRN IV DECREASED GLUCOSE; Start 07/28/16 at 09:00 Dextrose (D50w Syringe) 50 ml Q15M PRN IV DECREASED GLUCOSE; Start 07/28/16 at 09:00 Glucagon (Glucagen) 1 mg Q15M PRN IM DECREASED GLUCOSE; Start 07/28/16 at 09:00 Glucose (Glutose) 15 gm Q15M PRN BUCCAL DECREASED GLUCOSE; Start 07/28/16 at 09 :00 IV Flush (NS 10 ml) 10 ml PRN PRN IV IV PROTOCOL; Start 07/29/16 at 17:00 Morphine Sulfate (morphine) 2 mg Q4 PRN IV PAIN Last administered on 08/12/16 23:38; Admin Dose 2 MG; Start 07/31/16 at 12:00 Lorazepam (Ativan) 1 mg Q1H PRN IV SEIZURES Last administered on 08/11/16 12:25 ; Admin Dose 1 MG; Start 08/02/16 at 02:00 Acetaminophen 650 mg 650 mg Q4H PRN NGT PAIN AND OR ELEVATED TEMP Last administered on 08/25/16 06:01; Admin Dose 650 MG; Start 08/03/16 at 00:00 Valproate Sodium/ Sodium Chloride (Depacon/NS) 57.5 ml @ 55 mls/hr Q6 IVPB Last administered on 08/25/16 06:01; Admin Dose 55 MLS/HR; Start 08/04/16 at 13: 00 Calcium Acetate (Phoslo) 667 mg Q6 NGT Last administered on 08/25/16 06:01; Admin Dose 667 MG; Start 08/05/16 at 08:30 Hydralazine HCl 10 mg 10 mg Q4H PRN IV ELEVATED SYSTOLIC BP Last administered on 08/25/16 06:05; Admin Dose 10 MG; Start 08/06/16 at 01:30 Levetiracetam/ Sodium Chloride (Keppra Iv/NS) 107.5 ml @ 420 mls/hr DAILY IVPB Last administered on 08/24/16 09:55; Admin Dose 420 MLS/HR; Start 08/08/16 at 09:00 Eye Lubricant (Artificial Tears Oph) 2 drop TID BOTH EYES Last administered on 08/24/16 22:32; Admin Dose 2 DROP; Start 08/13/16 at 09:00 Metoprolol Tartrate (Lopressor) 50 mg BID NGT Last administered on 08/24/16 09 :38; Admin Dose 50 MG; Start 08/15/16 at 21:00 Amiodarone HCl (Cordarone) 200 mg DAILY NGT Last administered on 08/24/16 09: 37; Admin Dose 200 MG; Start 08/18/16 at 09:00 Lansoprazole (Prevacid) 30 mg DAILY@06 NGT Last administered on 08/25/16 06:01 ; Admin Dose 30 MG; Start 08/18/16 at 06:00 Insulin Aspart (Novolog Insulin Pen) NOVOLOG *MODERATE* ALGORI... Q6 SC Last administered on 08/25/16 06:03; Admin Dose 2 UNIT; Start 08/19/16 at 00:00 Warfarin Sodium (Coumadin) 5 mg DAILY@17 PO Last administered on 08/23/16 19: 55; Admin Dose 5 MG; Start 08/19/16 at 17:00 Zinc Oxide (Desitin) 1 applic PRN PRN TOP RASH Last administered on 08/22/16 16:14; Admin Dose 1 APPLIC; Start 08/21/16 at 17:30 Sodium Bicarbonate (Sodium Bicarbonate Tab) 650 mg Q8 NGT Last administered on 08/25/16 06:01; Admin Dose 650 MG; Start 08/22/16 at 22:00 Insulin Human NPH (Humulin N) 44 unit , SC Last administered on 22:33; Admin Dose 44 UNIT; Start 08/23/16 at 17:00 ROSCOE LANGE MD Aug 25, 2016 09:06
[2016-08-25] MEDS: BUDESONIDE (NEB) 0.5MG/2ML AMP HHN SCH ×2 (09:11→20:44)
[2016-08-25] MEDS: ARFORMOTEROL TARTRATE 15MCG/2 ML AMP NEB SCH ×2 (09:32→20:44)
--- NOTE | 2016-08-25 10:54 | CONS ---
Date/Time of Note Date/Time of Note DATE: 08/25/16 TIME: 10:52 Assessment/Plan Assessment/Plan Additional Assessment/Plan Ventilator settings; AC of 16, tidal volume 650, PEEP of 5, 30% FiO2. Assessment recommendations; 1. Patient admitted for sepsis with interval improvement. Off antibiotics now. 2. End-stage renal disease on hemodialysis. 3. Anoxic encephalopathy. Patient remains ventilator dependent. 5. End-stage renal disease on hemodialysis. 6. Status post tracheal insertion site bleed with interval resolution. 7. History of cardiac arrhythmia. 8. Stable seizure disorder. Continue current treatment. Patient is awaiting transfer to senior care. Consultation Date/Type/Reason Admit Date/Time Jul 27, 2016 at 23:29 Initial Consult Date 07/28/16 Type of Consultation: Pulmonary Referring Provider: BARNEY MCKEE 24 HR Interval Summary Free Text/Dictation Patient condition is stable. Has remained hemodynamically stable. Because of underlying anoxic enthesopathy patient remains completely unresponsive. No seizure activity noted. General examination; elderly male, on ventilator via tracheostomy, unresponsive. Currently in no distress. Exam/Review of Systems Vital Signs Vitals Vital Signs Date Time Temp Pulse Resp B/P Pulse Ox O2 Delivery O2 Flow Rate FiO2 08/25/16 08:18 109 08/25/16 06:46 100.6 18 138/64 96 08/25/16 05:09 30 Intake and Output 08/24/16 08/24/16 08/25/16 15:00 23:00 07:00 Intake Total 610 ml 1080 ml 700 ml Output Total 1800 ml Balance 610 ml -720 ml 700 ml Exam H EENT examination; supple neck, no JVD. No lymphadenopathy. Midline trachea. Tracheostomy in place. There is mild crusting of blood around the tracheal insertion site. Without any active bleeding. Patient is edentulous. Chest examination; clear to auscultation bilaterally. S1-S2 audible, no murmurs. Regular rhythm. Abdomen examination; soft, nondistended. G-tube in place. Bowel sounds audible. No organomegaly. Extremity examination; no peripheral edema. [employer] examination; patient remains unresponsive. Results Result Diagram: 08/25/16 0625 08/25/16 0635 Results 24 hrs Laboratory Tests Test 08/24/16 17:59 08/24/16 20:24 08/24/16 22:28 08/25/16 05:47 Bedside Glucose 108 136 160 152 Test 08/25/16 06:25 08/25/16 06:35 Basophils # 0.0 Basophils % 0.3 Eosinophils # 0.2 Eosinophils % 1.5 Hematocrit 26.7 L Hemoglobin 8.4 L Lymphocytes # 1.5 Lymphocytes % 11.2 L Mean Corpuscular Hemoglobin 30.7 Mean Corpuscular Hemoglobin Concent 31.5 L Mean Corpuscular Volume 97.4 Mean Platelet Volume 10.6 H Monocytes # 1.3 H Monocytes % 10.1 Neutrophils # 9.2 H Neutrophils % 69.9 Nucleated Red Blood Cells # 0.0 Nucleated Red Blood Cells % 0.0 Platelet Count 222 # Red Blood Count 2.74 L Red Cell Distribution Width 14.8 H White Blood Count 13.2 H Alanine Aminotransferase (ALT/SGPT) 39 Albumin 3.2 L Albumin/Globulin Ratio 0.84 Alkaline Phosphatase 93 Anion Gap 24 #H Aspartate Amino Transf (AST/SGOT) 69 H Blood Urea Nitrogen 94 #H Calcium Level 8.4 Carbon Dioxide Level 28 Chloride Level 92 L Creatinine 5.43 #H Direct Bilirubin 0.00 Globulin 3.80 H Glucose Level 134 INR International Normalized Ratio 1.62 Indirect Bilirubin 0.0 Magnesium Level 2.5 Phosphorus Level 6.0 #H Potassium Level 4.5 Prothrombin Time 19.4 H Prothrombin Time Ratio 1.5 Sodium Level 139 Total Bilirubin 0.0 L Total Protein 7.0 Medications Medications Current Medications Labetalol HCl (Labetalol) 10 mg Q6H PRN IV sbp > 160 Last administered on 18:33; Admin Dose 10 MG; Start 07/28/16 at 00:30 Acetaminophen (Tylenol Supp) 650 mg Q6H PRN [place] PAIN AND OR ELEVATED TEMP Last administered on 07/31/16 17:30; Admin Dose 650 MG; Start 07/28/16 at 08:30 Miscellaneous Information 1 ea NOTE XX ; Start 07/28/16 at 09:00 Glucose (Glutose) 15 gm Q15M PRN PO DECREASED GLUCOSE; Start 07/28/16 at 09:00 Glucose (Glutose) 22.5 gm Q15M PRN PO DECREASED GLUCOSE; Start 07/28/16 at 09: 00 Dextrose (D50w Syringe) 25 ml Q15M PRN IV DECREASED GLUCOSE; Start 07/28/16 at 09:00 Dextrose (D50w Syringe) 50 ml Q15M PRN IV DECREASED GLUCOSE; Start 07/28/16 at 09:00 Glucagon (Glucagen) 1 mg Q15M PRN IM DECREASED GLUCOSE; Start 07/28/16 at 09:00 Glucose (Glutose) 15 gm Q15M PRN BUCCAL DECREASED GLUCOSE; Start 07/28/16 at 09 :00 IV Flush (NS 10 ml) 10 ml PRN PRN IV IV PROTOCOL; Start 07/29/16 at 17:00 Morphine Sulfate (morphine) 2 mg Q4 PRN IV PAIN Last administered on 08/12/16 23:38; Admin Dose 2 MG; Start 07/31/16 at 12:00 Lorazepam (Ativan) 1 mg Q1H PRN IV SEIZURES Last administered on 08/11/16 12:25 ; Admin Dose 1 MG; Start 08/02/16 at 02:00 Acetaminophen 650 mg 650 mg Q4H PRN NGT PAIN AND OR ELEVATED TEMP Last administered on 08/25/16 06:01; Admin Dose 650 MG; Start 08/03/16 at 00:00 Valproate Sodium/ Sodium Chloride (Depacon/NS) 57.5 ml @ 55 mls/hr Q6 IVPB Last administered on 08/25/16 06:01; Admin Dose 55 MLS/HR; Start 08/04/16 at 13: 00 Calcium Acetate (Phoslo) 667 mg Q6 NGT Last administered on 08/25/16 06:01; Admin Dose 667 MG; Start 08/05/16 at 08:30 Hydralazine HCl 10 mg 10 mg Q4H PRN IV ELEVATED SYSTOLIC BP Last administered on 08/25/16 06:05; Admin Dose 10 MG; Start 08/06/16 at 01:30 Levetiracetam/ Sodium Chloride (Keppra Iv/NS) 107.5 ml @ 420 mls/hr DAILY IVPB Last administered on 08/24/16 09:55; Admin Dose 420 MLS/HR; Start 08/08/16 at 09:00 Eye Lubricant (Artificial Tears Oph) 2 drop TID BOTH EYES Last administered on 08/24/16 22:32; Admin Dose 2 DROP; Start 08/13/16 at 09:00 Metoprolol Tartrate (Lopressor) 50 mg BID NGT Last administered on 08/24/16 09 :38; Admin Dose 50 MG; Start 08/15/16 at 21:00 Amiodarone HCl (Cordarone) 200 mg DAILY NGT Last administered on 08/24/16 09: 37; Admin Dose 200 MG; Start 08/18/16 at 09:00 Lansoprazole (Prevacid) 30 mg DAILY@06 NGT Last administered on 08/25/16 06:01 ; Admin Dose 30 MG; Start 08/18/16 at 06:00 Insulin Aspart (Novolog Insulin Pen) NOVOLOG *MODERATE* ALGORI... Q6 SC Last administered on 08/25/16 06:03; Admin Dose 2 UNIT; Start 08/19/16 at 00:00 Warfarin Sodium (Coumadin) 5 mg DAILY@17 PO Last administered on 08/23/16 19: 55; Admin Dose 5 MG; Start 08/19/16 at 17:00 Zinc Oxide (Desitin) 1 applic PRN PRN TOP RASH Last administered on 08/22/16 16:14; Admin Dose 1 APPLIC; Start 08/21/16 at 17:30 Sodium Bicarbonate (Sodium Bicarbonate Tab) 650 mg Q8 NGT Last administered on 08/25/16 06:01; Admin Dose 650 MG; Start 08/22/16 at 22:00 Insulin Human NPH (Humulin N) 44 unit , SC Last administered on 22:33; Admin Dose 44 UNIT; Start 08/23/16 at 17:00 AMOR RODRIGUES Aug 25, 2016 10:54
--- NOTE | 2016-08-25 13:27 | CONS ---
Date/Time of Note Date/Time of Note DATE: 08/25/16 TIME: 13:25 Assessment/Plan Assessment/Plan Chief Complaint/Hosp Course Unfortunate 56-year-old gentleman who came in after suffering respiratory arrest which induced cardiac arrest. He has a significant anoxic encephalopathy post event and has not shown significant improvement. He is ventilator dependent and feeding tube dependent. Premorbid he had end-stage renal disease and was dialysis dependent. He is on continuous tube feedings. In the recent past he has had some changes in the way his temperature is been spiking although he has been having fevers for more some of his hospitalization which were likely central fevers Problems: (1) Type 2 diabetes mellitus with hypertension and end stage renal disease on dialysis Status: Chronic Comment: On his present regimen given his tube feedings as blood sugar control is doing well. Please note given his obesity we can use a calorie restriction here safely. Just needs to be a modest calorie restriction to allow him to have a slow gradual weight loss. This will make his diabetic control easier. Please note however that his overall prognosis given the timeframe from the acute neurologic event such a day and his degree of recovery means that the likelihood of meaningful recovery in independent living is nil (2) Anoxic encephalopathy Status: Acute Comment: As above overall prognosis for meaningful recovery is poor. Consultation Date/Type/Reason Admit Date/Time Jul 27, 2016 at 23:29 Initial Consult Date 08/17/16 Type of Consultation: Endocrinology Reason for Consultation Diabetes mellitus out of control Referring Provider: BARNEY MCKEE 24 HR Interval Summary Free Text/Dictation Patient response limited to nonpurposeful movements Subjective hx not possible: pt non-verbal Exam/Review of Systems Vital Signs Vitals Vital Signs Date Time Temp Pulse Resp B/P Pulse Ox O2 Delivery O2 Flow Rate FiO2 08/25/16 13:08 89 17 97 30 08/25/16 11:19 97.8 133/63 Intake and Output 08/24/16 08/24/16 08/25/16 15:00 23:00 07:00 Intake Total 610 ml 1080 ml 700 ml Output Total 1800 ml Balance 610 ml -720 ml 700 ml Exam Opens eyes but not to command minimal response does not follow with eyes and has scant response to noxious stimuli Results Result Diagram: 08/25/16 0625 08/25/16 0635 Results 24 hrs Laboratory Tests Test 08/24/16 17:59 08/24/16 20:24 08/24/16 22:28 08/25/16 05:47 Bedside Glucose 108 136 160 152 Test 08/25/16 06:25 08/25/16 06:35 08/25/16 12:08 Basophils # 0.0 Basophils % 0.3 Eosinophils # 0.2 Eosinophils % 1.5 Hematocrit 26.7 L Hemoglobin 8.4 L Lymphocytes # 1.5 Lymphocytes % 11.2 L Mean Corpuscular Hemoglobin 30.7 Mean Corpuscular Hemoglobin Concent 31.5 L Mean Corpuscular Volume 97.4 Mean Platelet Volume 10.6 H Monocytes # 1.3 H Monocytes % 10.1 Neutrophils # 9.2 H Neutrophils % 69.9 Nucleated Red Blood Cells # 0.0 Nucleated Red Blood Cells % 0.0 Platelet Count 222 # Red Blood Count 2.74 L Red Cell Distribution Width 14.8 H White Blood Count 13.2 H Alanine Aminotransferase (ALT/SGPT) 39 Albumin 3.2 L Albumin/Globulin Ratio 0.84 Alkaline Phosphatase 93 Anion Gap 24 #H Aspartate Amino Transf (AST/SGOT) 69 H Blood Urea Nitrogen 94 #H Calcium Level 8.4 Carbon Dioxide Level 28 Chloride Level 92 L Creatinine 5.43 #H Direct Bilirubin 0.00 Globulin 3.80 H Glucose Level 134 INR International Normalized Ratio 1.62 Indirect Bilirubin 0.0 Magnesium Level 2.5 Phosphorus Level 6.0 #H Potassium Level 4.5 Prothrombin Time 19.4 H Prothrombin Time Ratio 1.5 Sodium Level 139 Total Bilirubin 0.0 L Total Protein 7.0 Bedside Glucose 129 Medications Medications Current Medications Labetalol HCl (Labetalol) 10 mg Q6H PRN IV sbp > 160 Last administered on 18:33; Admin Dose 10 MG; Start 07/28/16 at 00:30 Acetaminophen (Tylenol Supp) 650 mg Q6H PRN [place] PAIN AND OR ELEVATED TEMP Last administered on 07/31/16 17:30; Admin Dose 650 MG; Start 07/28/16 at 08:30 Miscellaneous Information 1 ea NOTE XX ; Start 07/28/16 at 09:00 Glucose (Glutose) 15 gm Q15M PRN PO DECREASED GLUCOSE; Start 07/28/16 at 09:00 Glucose (Glutose) 22.5 gm Q15M PRN PO DECREASED GLUCOSE; Start 07/28/16 at 09: 00 Dextrose (D50w Syringe) 25 ml Q15M PRN IV DECREASED GLUCOSE; Start 07/28/16 at 09:00 Dextrose (D50w Syringe) 50 ml Q15M PRN IV DECREASED GLUCOSE; Start 07/28/16 at 09:00 Glucagon (Glucagen) 1 mg Q15M PRN IM DECREASED GLUCOSE; Start 07/28/16 at 09:00 Glucose (Glutose) 15 gm Q15M PRN BUCCAL DECREASED GLUCOSE; Start 07/28/16 at 09 :00 IV Flush (NS 10 ml) 10 ml PRN PRN IV IV PROTOCOL; Start 07/29/16 at 17:00 Morphine Sulfate (morphine) 2 mg Q4 PRN IV PAIN Last administered on 08/12/16 23:38; Admin Dose 2 MG; Start 07/31/16 at 12:00 Lorazepam (Ativan) 1 mg Q1H PRN IV SEIZURES Last administered on 08/11/16 12:25 ; Admin Dose 1 MG; Start 08/02/16 at 02:00 Acetaminophen 650 mg 650 mg Q4H PRN NGT PAIN AND OR ELEVATED TEMP Last administered on 08/25/16 06:01; Admin Dose 650 MG; Start 08/03/16 at 00:00 Valproate Sodium/ Sodium Chloride (Depacon/NS) 57.5 ml @ 55 mls/hr Q6 IVPB Last administered on 08/25/16 12:13; Admin Dose 55 MLS/HR; Start 08/04/16 at 13: 00 Calcium Acetate (Phoslo) 667 mg Q6 NGT Last administered on 08/25/16 12:13; Admin Dose 667 MG; Start 08/05/16 at 08:30 Hydralazine HCl 10 mg 10 mg Q4H PRN IV ELEVATED SYSTOLIC BP Last administered on 08/25/16 06:05; Admin Dose 10 MG; Start 08/06/16 at 01:30 Levetiracetam/ Sodium Chloride (Keppra Iv/NS) 107.5 ml @ 420 mls/hr DAILY IVPB Last administered on 08/25/16 09:00; Admin Dose 420 MLS/HR; Start 08/08/16 at 09:00 Eye Lubricant (Artificial Tears Oph) 2 drop TID BOTH EYES Last administered on 08/25/16 12:14; Admin Dose 2 DROP; Start 08/13/16 at 09:00 Metoprolol Tartrate (Lopressor) 50 mg BID NGT Last administered on 08/25/16 09 :00; Admin Dose 50 MG; Start 08/15/16 at 21:00 Amiodarone HCl (Cordarone) 200 mg DAILY NGT Last administered on 08/25/16 09: 00; Admin Dose 200 MG; Start 08/18/16 at 09:00 Lansoprazole (Prevacid) 30 mg DAILY@06 NGT Last administered on 08/25/16 06:01 ; Admin Dose 30 MG; Start 08/18/16 at 06:00 Insulin Aspart (Novolog Insulin Pen) NOVOLOG *MODERATE* ALGORI... Q6 SC Last administered on 08/25/16 06:03; Admin Dose 2 UNIT; Start 08/19/16 at 00:00 Warfarin Sodium (Coumadin) 5 mg DAILY@17 PO Last administered on 08/23/16 19: 55; Admin Dose 5 MG; Start 08/19/16 at 17:00 Zinc Oxide (Desitin) 1 applic PRN PRN TOP RASH Last administered on 08/22/16 16:14; Admin Dose 1 APPLIC; Start 08/21/16 at 17:30 Sodium Bicarbonate (Sodium Bicarbonate Tab) 650 mg Q8 NGT Last administered on 08/25/16 06:01; Admin Dose 650 MG; Start 08/22/16 at 22:00 Insulin Human NPH (Humulin N) 44 unit , SC Last administered on 09:00; Admin Dose 44 UNIT; Start 08/23/16 at 17:00 LOPEZ LOW MD Aug 25, 2016 13:27
--- NOTE | 2016-08-25 14:45 | PN ---
Date/Time of Note Date/Time of Note DATE: 08/25/16 TIME: 14:42 Assessment/Plan VTE Prophylaxis VTE Prophylaxis Intervention: other (Warfarin) Lines/Catheters IV [facility]ter Type (from [facility]): PICC Line Central line still needed: Yes Urinary Cath still in place: No Assessment/Plan Chief Complaint/Hosp Course 1. Status post cardiac arrest secondary to PEA. Status post trach and PEG. Family hesitant on changing the code status. 2. Acute respiratory failure, hypoxic. Continue ventilator management as per pulmonary. Continue inhaled bronchodilators. 3. End-stage renal disease on hemodialysis. Continue hemodialysis as per nephrology. 4. Status post systemic inflammatory response syndrome. Status post antibiotics. 5. Atrial fibrillation with rapid ventricular response. Currently in sinus rhythm. On amiodarone and metoprolol. On warfarin for stroke prophylaxis. 6. Type 2 diabetes mellitus. Hemoglobin A1c 7.3. Continue insulin sliding scale along with Lantus insulin. 7. Essential hypertension. Continue antihypertensives. 8. Seizure disorder. Most probably secondary to anoxia. Continue anticonvulsants. 9. Possible underlying anoxic encephalopathy. 10. Normocytic normochromic anemia, most probably anemia of chronic kidney disease. Will monitor H and H closely. 11. Fluid, electrolytes and nutrition. Continue NG tube feedings. 12. Deep venous thrombosis prophylaxis. On warfarin. 13. Gastrointestinal prophylaxis. Proton pump inhibitors. PLAN: Continue inpatient care. Await placement to a halfway facility. The case was discussed with Dr. Nguyen. Problems: Subjective 24 Hr Interval Summary Free Text/Dictation Condition remains unchanged. Exam/Review of Systems Vital Signs Vitals Vital Signs Date Time Temp Pulse Resp B/P Pulse Ox O2 Delivery O2 Flow Rate FiO2 08/25/16 13:08 89 17 97 30 08/25/16 11:19 97.8 133/63 Intake and Output 08/24/16 08/24/16 08/25/16 15:00 23:00 07:00 Intake Total 610 ml 1080 ml 700 ml Output Total 1800 ml Balance 610 ml -720 ml 700 ml Exam GENERAL: This is an obese male patient lying in bed with tracheostomy to vent, in no apparent distress. HEENT: Head normocephalic and atraumatic. Eyes: Anicteric sclerae. Conjunctivae clear. ENT: Nasal septum Oral mucosa is dry. NECK: Supple. Tracheostomy midline. RESPIRATORY: Bilateral diminished breath sounds. A tracheostomy connected to mechanical ventilator. On AC mode ventilation. Diminished breath sounds bilaterally. CARDIAC: Regular rate and rhythm. No obvious murmurs heard. ABDOMEN: Soft, nontender and nondistended. Left upper quadrant G-tube in place. GENITOURINARY: The patient has a rectal tube in place. EXTREMITIES: No cyanosis, no clubbing, no edema. Peripheral pulses are palpable. NEUROLOGIC: The patient is obtunded. Opens eyes. Does not follow any commands. Results Result Diagram: 08/25/16 0625 08/25/16 0635 Results 24 hrs Laboratory Tests Test 08/24/16 17:59 08/24/16 20:24 08/24/16 22:28 08/25/16 05:47 Bedside Glucose 108 136 160 152 Test 08/25/16 06:25 08/25/16 06:35 08/25/16 12:08 Basophils # 0.0 Basophils % 0.3 Eosinophils # 0.2 Eosinophils % 1.5 Hematocrit 26.7 L Hemoglobin 8.4 L Lymphocytes # 1.5 Lymphocytes % 11.2 L Mean Corpuscular Hemoglobin 30.7 Mean Corpuscular Hemoglobin Concent 31.5 L Mean Corpuscular Volume 97.4 Mean Platelet Volume 10.6 H Monocytes # 1.3 H Monocytes % 10.1 Neutrophils # 9.2 H Neutrophils % 69.9 Nucleated Red Blood Cells # 0.0 Nucleated Red Blood Cells % 0.0 Platelet Count 222 # Red Blood Count 2.74 L Red Cell Distribution Width 14.8 H White Blood Count 13.2 H Alanine Aminotransferase (ALT/SGPT) 39 Albumin 3.2 L Albumin/Globulin Ratio 0.84 Alkaline Phosphatase 93 Anion Gap 24 #H Aspartate Amino Transf (AST/SGOT) 69 H Blood Urea Nitrogen 94 #H Calcium Level 8.4 Carbon Dioxide Level 28 Chloride Level 92 L Creatinine 5.43 #H Direct Bilirubin 0.00 Globulin 3.80 H Glucose Level 134 INR International Normalized Ratio 1.62 Indirect Bilirubin 0.0 Magnesium Level 2.5 Phosphorus Level 6.0 #H Potassium Level 4.5 Prothrombin Time 19.4 H Prothrombin Time Ratio 1.5 Sodium Level 139 Total Bilirubin 0.0 L Total Protein 7.0 Bedside Glucose 129 Medications Medications Current Medications Labetalol HCl (Labetalol) 10 mg Q6H PRN IV sbp > 160 Last administered on 18:33; Admin Dose 10 MG; Start 07/28/16 at 00:30 Acetaminophen (Tylenol Supp) 650 mg Q6H PRN [place] PAIN AND OR ELEVATED TEMP Last administered on 07/31/16 17:30; Admin Dose 650 MG; Start 07/28/16 at 08:30 Miscellaneous Information 1 ea NOTE XX ; Start 07/28/16 at 09:00 Glucose (Glutose) 15 gm Q15M PRN PO DECREASED GLUCOSE; Start 07/28/16 at 09:00 Glucose (Glutose) 22.5 gm Q15M PRN PO DECREASED GLUCOSE; Start 07/28/16 at 09: 00 Dextrose (D50w Syringe) 25 ml Q15M PRN IV DECREASED GLUCOSE; Start 07/28/16 at 09:00 Dextrose (D50w Syringe) 50 ml Q15M PRN IV DECREASED GLUCOSE; Start 07/28/16 at 09:00 Glucagon (Glucagen) 1 mg Q15M PRN IM DECREASED GLUCOSE; Start 07/28/16 at 09:00 Glucose (Glutose) 15 gm Q15M PRN BUCCAL DECREASED GLUCOSE; Start 07/28/16 at 09 :00 IV Flush (NS 10 ml) 10 ml PRN PRN IV IV PROTOCOL; Start 07/29/16 at 17:00 Morphine Sulfate (morphine) 2 mg Q4 PRN IV PAIN Last administered on 08/12/16 23:38; Admin Dose 2 MG; Start 07/31/16 at 12:00 Lorazepam (Ativan) 1 mg Q1H PRN IV SEIZURES Last administered on 08/11/16 12:25 ; Admin Dose 1 MG; Start 08/02/16 at 02:00 Acetaminophen 650 mg 650 mg Q4H PRN NGT PAIN AND OR ELEVATED TEMP Last administered on 08/25/16 06:01; Admin Dose 650 MG; Start 08/03/16 at 00:00 Valproate Sodium/ Sodium Chloride (Depacon/NS) 57.5 ml @ 55 mls/hr Q6 IVPB Last administered on 08/25/16 12:13; Admin Dose 55 MLS/HR; Start 08/04/16 at 13: 00 Calcium Acetate (Phoslo) 667 mg Q6 NGT Last administered on 08/25/16 12:13; Admin Dose 667 MG; Start 08/05/16 at 08:30 Hydralazine HCl 10 mg 10 mg Q4H PRN IV ELEVATED SYSTOLIC BP Last administered on 08/25/16 06:05; Admin Dose 10 MG; Start 08/06/16 at 01:30 Levetiracetam/ Sodium Chloride (Keppra Iv/NS) 107.5 ml @ 420 mls/hr DAILY IVPB Last administered on 08/25/16 09:00; Admin Dose 420 MLS/HR; Start 08/08/16 at 09:00 Eye Lubricant (Artificial Tears Oph) 2 drop TID BOTH EYES Last administered on 08/25/16 12:14; Admin Dose 2 DROP; Start 08/13/16 at 09:00 Metoprolol Tartrate (Lopressor) 50 mg BID NGT Last administered on 08/25/16 09 :00; Admin Dose 50 MG; Start 08/15/16 at 21:00 Amiodarone HCl (Cordarone) 200 mg DAILY NGT Last administered on 08/25/16 09: 00; Admin Dose 200 MG; Start 08/18/16 at 09:00 Lansoprazole (Prevacid) 30 mg DAILY@06 NGT Last administered on 08/25/16 06:01 ; Admin Dose 30 MG; Start 08/18/16 at 06:00 Insulin Aspart (Novolog Insulin Pen) NOVOLOG *MODERATE* ALGORI... Q6 SC Last administered on 08/25/16 06:03; Admin Dose 2 UNIT; Start 08/19/16 at 00:00 Warfarin Sodium (Coumadin) 5 mg DAILY@17 PO Last administered on 08/23/16 19: 55; Admin Dose 5 MG; Start 08/19/16 at 17:00 Zinc Oxide (Desitin) 1 applic PRN PRN TOP RASH Last administered on 08/22/16 16:14; Admin Dose 1 APPLIC; Start 08/21/16 at 17:30 Sodium Bicarbonate (Sodium Bicarbonate Tab) 650 mg Q8 NGT Last administered on 08/25/16 06:01; Admin Dose 650 MG; Start 08/22/16 at 22:00 Insulin Human NPH (Humulin N) 44 unit ,, SC Last administered on 09:00; Admin Dose 44 UNIT; Start 08/23/16 at 17:00 MICHAEL OLIVER NP Aug 25, 2016 14:45
[2016-08-25] MEDS: WARFARIN 5 MG TAB PO SCH (21:11)
[2016-08-26] VITALS (23 sets, daily range): BP systolic 98–172; BP diastolic 53–80; PULSE 94–110; RESP 16–20
[2016-08-26] MEDS: IPRATROPIUM (HFA) 12.9 GM INHALER INH SCH ×6 (01:31→21:06)
[2016-08-26] MEDS: ALBUTEROL HFA 8 GM INHALER INH SCH ×6 (01:31→21:06)
[2016-08-26 06:11] LABS: ADD SCAN DIFF NO
[2016-08-26] MEDS: CALCIUM ACETATE 667 MG CAP NGT SCH ×4 (06:24→23:44)
[2016-08-26] MEDS: ACETAMINOPHEN 650MG/20.3ML CUP NGT PRN ×2 (06:24→18:53)
[2016-08-26] MEDS: LANSOPRAZOLE 30 MG CAP NGT SCH (06:24)
[2016-08-26] MEDS: NA BICARBONATE 650 MG TAB NGT SCH ×3 (06:24→21:42)
[2016-08-26] MEDS: VALPROATE INJ 750 MG in SOD CHLORIDE 0.9% 50 ML IVPB SCH ×4 (06:29→23:44)
[2016-08-26 06:31] LABS: ALBUMIN 3.2 g/dl (3.3-4.9)
[2016-08-26 06:32] LABS: POTASSIUM 4.7 mmol/L (3.5-5.1)
[2016-08-26 06:35] LABS: ALBUMIN/GLOBULIN RATIO 0.82; CALCIUM 8.4 mg/dl (8.4-10.2); TOTAL PROTEIN 7.1 g/dl (6.1-8.1)
[2016-08-26] MEDS: INSULIN ASPART [NOVOLOG] 3 ML PEN SC SCH ×4 (06:35→23:47)
[2016-08-26 06:42] LABS: CREATININE 4.46 mg/dl (0.61-1.24)
[2016-08-26 06:43] LABS: ABNORMAL IP MESSAGE 1; BASOPHIL # 0.1 10^3/ul (0.0-0.1); BASOPHILS % 0.5 % (0.0-2.0); EOSINOPHILS # 0.3 10^3/ul (0.0-0.5); EOSINOPHILS % 2.1 % (0.0-7.0); HEMATOCRIT 26.8 % (42.0-52.0); HEMOGLOBIN 8.4 g/dl (14.0-18.0); LYMPHOCYTES # 1.6 10^3/ul (0.8-2.9); LYMPHOCYTES % 12.5 % (15.0-51.0); MEAN CORPUSCULAR HEMOGLOBIN 30.8 pg (29.0-33.0); MEAN CORPUSCULAR HGB CONC 31.3 g/dl (32.0-37.0); MEAN CORPUSCULAR VOLUME 98.2 fl (82.0-101.0); MEAN PLATELET VOLUME 10.7 fl (7.4-10.4); MONOCYTE # 1.4 10^3/ul (0.3-0.9); MONOCYTES % 10.9 % (0.0-11.0); NEUTROPHIL # 8.8 10^3/ul (1.6-7.5); NEUTROPHILS % 66.8 % (39.0-77.0); PLATELET COUNT 220 10^3/UL (140-415); RED BLOOD COUNT 2.73 10^6/ul (4.70-6.10); RED CELL DISTRIBUTION WIDTH 14.8 % (11.5-14.5); WHITE BLOOD COUNT 13.1 10^3/ul (4.8-10.8)
[2016-08-26 06:46] LABS: PHOSPHORUS 5.1 mg/dl (2.5-4.9)
[2016-08-26 06:47] LABS: MAGNESIUM 2.5 mg/dl (1.7-2.5)
[2016-08-26 06:48] LABS: INR 1.46; PROTIME 17.8 Sec (12.2-14.2); PT RATIO 1.4
[2016-08-26] MEDS: BUDESONIDE (NEB) 0.5MG/2ML AMP HHN SCH ×2 (07:47→21:06)
--- NOTE | 2016-08-26 08:35 | CONS ---
Date/Time of Note Date/Time of Note DATE: 08/26/16 TIME: 08:31 Assessment/Plan Assessment/Plan Chief Complaint/Hosp Course #1 end-stage renal disease . He has hemodialysis ordered for tomorrow . He is on dialysis every other day . His BUN is lower today . #2 the patient is status post a cardiac arrest at home #3 altered level of consciousness, probable anoxic encephalopathy. #4 insulin-dependent diabetes mellitus #5 seizures #6 ventilator dependent respiratory failure , h/o COPD and pneumonia on CXR . #7 hyperphosphatemia , calcium acetate is being given . #8 new onset A fib , he was cardioverted and now is on warfarin . #9 dietary consult ordered , will continue tube feeding rate at 30 cc/hr . Problems: Consultation Date/Type/Reason Admit Date/Time Jul 27, 2016 at 23:29 Initial Consult Date 07/28/16 Type of Consultation: Endocrinology Referring Provider: BARNEY MCKEE 24 HR Interval Summary Free Text/Dictation He is unresponsive on a ventilator . Subjective hx not possible: pt non-verbal Exam/Review of Systems Vital Signs Vitals Vital Signs Date Time Temp Pulse Resp B/P Pulse Ox O2 Delivery O2 Flow Rate FiO2 08/26/16 08:15 94 08/26/16 08:03 99.4 18 99/54 97 08/26/16 07:42 30 Intake and Output 08/25/16 08/25/16 08/26/16 15:00 23:00 07:00 Intake Total 1230 ml 680 ml Output Total 2500 ml Balance -1270 ml 680 ml Exam Constitutional: non-verbal Respiratory: clear to auscultation, diminished breath sounds Cardiovascular: regular rate and rhythm Musculoskeletal: nl extremities to inspection Results Result Diagram: 08/26/16 0540 08/26/16 0540 Results 24 hrs Laboratory Tests Test 08/25/16 12:08 08/25/16 17:18 08/25/16 23:40 08/26/16 05:40 Bedside Glucose 129 152 171 Alanine Aminotransferase (ALT/SGPT) 37 Albumin 3.2 L Albumin/Globulin Ratio 0.82 Alkaline Phosphatase 97 Anion Gap 22 H Aspartate Amino Transf (AST/SGOT) 71 H Basophils # 0.1 Basophils % 0.5 Blood Urea Nitrogen 74 H Calcium Level 8.4 Carbon Dioxide Level 28 Chloride Level 94 L Creatinine 4.46 H Direct Bilirubin 0.00 Eosinophils # 0.3 Eosinophils % 2.1 Globulin 3.90 H Glucose Level 162 Hematocrit 26.8 L Hemoglobin 8.4 L INR International Normalized Ratio 1.46 Indirect Bilirubin 0.0 Lymphocytes # 1.6 Lymphocytes % 12.5 L Magnesium Level 2.5 Mean Corpuscular Hemoglobin 30.8 Mean Corpuscular Hemoglobin Concent 31.3 L Mean Corpuscular Volume 98.2 Mean Platelet Volume 10.7 H Monocytes # 1.4 H Monocytes % 10.9 Neutrophils # 8.8 H Neutrophils % 66.8 Nucleated Red Blood Cells # 0.0 Nucleated Red Blood Cells % 0.0 Phosphorus Level 5.1 H Platelet Count 220 Potassium Level 4.7 Prothrombin Time 17.8 H Prothrombin Time Ratio 1.4 Red Blood Count 2.73 L Red Cell Distribution Width 14.8 H Sodium Level 139 Total Bilirubin 0.0 L Total Protein 7.1 White Blood Count 13.1 H Test 08/26/16 06:25 Bedside Glucose 179 Medications Medications Current Medications Labetalol HCl (Labetalol) 10 mg Q6H PRN IV sbp > 160 Last administered on 18:33; Admin Dose 10 MG; Start 07/28/16 at 00:30 Acetaminophen (Tylenol Supp) 650 mg Q6H PRN [place] PAIN AND OR ELEVATED TEMP Last administered on 07/31/16 17:30; Admin Dose 650 MG; Start 07/28/16 at 08:30 Miscellaneous Information 1 ea NOTE XX ; Start 07/28/16 at 09:00 Glucose (Glutose) 15 gm Q15M PRN PO DECREASED GLUCOSE; Start 07/28/16 at 09:00 Glucose (Glutose) 22.5 gm Q15M PRN PO DECREASED GLUCOSE; Start 07/28/16 at 09: 00 Dextrose (D50w Syringe) 25 ml Q15M PRN IV DECREASED GLUCOSE; Start 07/28/16 at 09:00 Dextrose (D50w Syringe) 50 ml Q15M PRN IV DECREASED GLUCOSE; Start 07/28/16 at 09:00 Glucagon (Glucagen) 1 mg Q15M PRN IM DECREASED GLUCOSE; Start 07/28/16 at 09:00 Glucose (Glutose) 15 gm Q15M PRN BUCCAL DECREASED GLUCOSE; Start 07/28/16 at 09 :00 IV Flush (NS 10 ml) 10 ml PRN PRN IV IV PROTOCOL; Start 07/29/16 at 17:00 Morphine Sulfate (morphine) 2 mg Q4 PRN IV PAIN Last administered on 08/12/16 23:38; Admin Dose 2 MG; Start 07/31/16 at 12:00 Lorazepam (Ativan) 1 mg Q1H PRN IV SEIZURES Last administered on 08/11/16 12:25 ; Admin Dose 1 MG; Start 08/02/16 at 02:00 Acetaminophen 650 mg 650 mg Q4H PRN NGT PAIN AND OR ELEVATED TEMP Last administered on 08/26/16 06:24; Admin Dose 650 MG; Start 08/03/16 at 00:00 Valproate Sodium/ Sodium Chloride (Depacon/NS) 57.5 ml @ 55 mls/hr Q6 IVPB Last administered on 08/26/16 06:29; Admin Dose 55 MLS/HR; Start 08/04/16 at 13: 00 Calcium Acetate (Phoslo) 667 mg Q6 NGT Last administered on 08/26/16 06:24; Admin Dose 667 MG; Start 08/05/16 at 08:30 Hydralazine HCl 10 mg 10 mg Q4H PRN IV ELEVATED SYSTOLIC BP Last administered on 08/25/16 06:05; Admin Dose 10 MG; Start 08/06/16 at 01:30 Levetiracetam/ Sodium Chloride (Keppra Iv/NS) 107.5 ml @ 420 mls/hr DAILY IVPB Last administered on 08/25/16 09:00; Admin Dose 420 MLS/HR; Start 08/08/16 at 09:00 Eye Lubricant (Artificial Tears Oph) 2 drop TID BOTH EYES Last administered on 08/25/16 21:11; Admin Dose 2 DROP; Start 08/13/16 at 09:00 Metoprolol Tartrate (Lopressor) 50 mg BID NGT Last administered on 08/25/16 21 :13; Admin Dose 50 MG; Start 08/15/16 at 21:00 Amiodarone HCl (Cordarone) 200 mg DAILY NGT Last administered on 08/25/16 09: 00; Admin Dose 200 MG; Start 08/18/16 at 09:00 Lansoprazole (Prevacid) 30 mg DAILY@06 NGT Last administered on 08/26/16 06:24 ; Admin Dose 30 MG; Start 08/18/16 at 06:00 Insulin Aspart (Novolog Insulin Pen) NOVOLOG *MODERATE* ALGORI... Q6 SC Last administered on 08/26/16 06:35; Admin Dose 2 UNIT; Start 08/19/16 at 00:00 Warfarin Sodium (Coumadin) 5 mg DAILY@17 PO Last administered on 08/25/16 21: 11; Admin Dose 5 MG; Start 08/19/16 at 17:00 Zinc Oxide (Desitin) 1 applic PRN PRN TOP RASH Last administered on 08/22/16 16:14; Admin Dose 1 APPLIC; Start 08/21/16 at 17:30 Sodium Bicarbonate (Sodium Bicarbonate Tab) 650 mg Q8 NGT Last administered on 08/26/16 06:24; Admin Dose 650 MG; Start 08/22/16 at 22:00 Insulin Human NPH (Humulin N) 44 unit ,, SC Last administered on 23:47; Admin Dose 44 UNIT; Start 08/23/16 at 17:00 ROSCOE LANGE MD Aug 26, 2016 08:35
[2016-08-26] MEDS: ARFORMOTEROL TARTRATE 15MCG/2 ML AMP NEB SCH ×2 (09:07→20:00)
[2016-08-26] MEDS: LEVETIRACETAM IV 750 MG in SOD CHLORIDE 0.9% 100 ML IVPB SCH (09:34)
[2016-08-26] MEDS: ARTIFICIAL TEARS 15 ML OPH BOTH EYES SCH ×3 (09:35→21:35)
[2016-08-26] MEDS: AMIODARONE 200 MG TAB NGT SCH (09:37)
[2016-08-26] MEDS: METOPROLOL 50 MG TAB NGT SCH ×2 (09:38→21:42)
[2016-08-26] MEDS: NPH, HUMAN INSULIN ISOPHANE 3ML VIAL SC SCH ×2 (09:45→18:32)
--- NOTE | 2016-08-26 11:25 | PN ---
Date/Time of Note Date/Time of Note DATE: 08/26/16 TIME: 11:24 Assessment/Plan VTE Prophylaxis VTE Prophylaxis Intervention: other (Warfarin) Lines/Catheters IV [facility] Type (from [facility]): PICC Line Central line still needed: Yes Urinary Cath still in place: No Assessment/Plan Chief Complaint/Hosp Course 1. Status post cardiac arrest secondary to PEA. Status post trach and PEG. Family hesitant on changing the code status. 2. Acute respiratory failure, hypoxic. Continue ventilator management as per pulmonary. Continue inhaled bronchodilators. 3. End-stage renal disease on hemodialysis. Continue hemodialysis as per nephrology. 4. Status post systemic inflammatory response syndrome. Status post antibiotics. 5. Atrial fibrillation with rapid ventricular response. Currently in sinus rhythm. On amiodarone and metoprolol. On warfarin for stroke prophylaxis. 6. Type 2 diabetes mellitus. Hemoglobin A1c 7.3. Continue insulin sliding scale along with Lantus insulin. 7. Essential hypertension. Continue antihypertensives. 8. Seizure disorder. Most probably secondary to anoxia. Continue anticonvulsants. 9. Possible underlying anoxic encephalopathy. 10. Normocytic normochromic anemia, most probably anemia of chronic kidney disease. Will monitor H and H closely. 11. Fluid, electrolytes and nutrition. Continue NG tube feedings. 12. Deep venous thrombosis prophylaxis. On warfarin. 13. Gastrointestinal prophylaxis. Proton pump inhibitors. PLAN: Discontinue rectal tube. Continue inpatient care. The patient's fevers could be neurogenic in origin. All the cultures have been negative. Await placement to a retirement facility. The case was discussed with Dr. Nguyen. The plan of care was explained to the patient's family. Problems: Subjective 24 Hr Interval Summary Free Text/Dictation Continues to have a low-grade fever. Exam/Review of Systems Vital Signs Vitals Vital Signs Date Time Temp Pulse Resp B/P Pulse Ox O2 Delivery O2 Flow Rate FiO2 08/26/16 09:07 101 16 97 30 08/26/16 08:03 99.4 99/54 Intake and Output 08/25/16 08/25/16 08/26/16 15:00 23:00 07:00 Intake Total 1230 ml 680 ml Output Total 2500 ml Balance -1270 ml 680 ml Exam GENERAL: This is an obese male patient lying in bed with tracheostomy to vent, in no apparent distress. HEENT: Head normocephalic and atraumatic. Eyes: Anicteric sclerae. Conjunctivae clear. ENT: Nasal septum Oral mucosa is dry. NECK: Supple. Tracheostomy midline. RESPIRATORY: Bilateral diminished breath sounds. A tracheostomy connected to mechanical ventilator. On AC mode ventilation. Diminished breath sounds bilaterally. CARDIAC: Regular rate and rhythm. No obvious murmurs heard. ABDOMEN: Soft, nontender and nondistended. Left upper quadrant G-tube in place. GENITOURINARY: The patient has a rectal tube in place. EXTREMITIES: No cyanosis, no clubbing, no edema. Peripheral pulses are palpable. NEUROLOGIC: The patient is obtunded. Opens eyes. Does not follow any commands. Results Result Diagram: 08/26/16 0540 08/26/16 0540 Results 24 hrs Laboratory Tests Test 08/25/16 12:08 08/25/16 17:18 08/25/16 23:40 08/26/16 05:40 Bedside Glucose 129 152 171 Alanine Aminotransferase (ALT/SGPT) 37 Albumin 3.2 L Albumin/Globulin Ratio 0.82 Alkaline Phosphatase 97 Anion Gap 22 H Aspartate Amino Transf (AST/SGOT) 71 H Basophils # 0.1 Basophils % 0.5 Blood Urea Nitrogen 74 H Calcium Level 8.4 Carbon Dioxide Level 28 Chloride Level 94 L Creatinine 4.46 H Direct Bilirubin 0.00 Eosinophils # 0.3 Eosinophils % 2.1 Globulin 3.90 H Glucose Level 162 Hematocrit 26.8 L Hemoglobin 8.4 L INR International Normalized Ratio 1.46 Indirect Bilirubin 0.0 Lymphocytes # 1.6 Lymphocytes % 12.5 L Magnesium Level 2.5 Mean Corpuscular Hemoglobin 30.8 Mean Corpuscular Hemoglobin Concent 31.3 L Mean Corpuscular Volume 98.2 Mean Platelet Volume 10.7 H Monocytes # 1.4 H Monocytes % 10.9 Neutrophils # 8.8 H Neutrophils % 66.8 Nucleated Red Blood Cells # 0.0 Nucleated Red Blood Cells % 0.0 Phosphorus Level 5.1 H Platelet Count 220 Potassium Level 4.7 Prothrombin Time 17.8 H Prothrombin Time Ratio 1.4 Red Blood Count 2.73 L Red Cell Distribution Width 14.8 H Sodium Level 139 Total Bilirubin 0.0 L Total Protein 7.1 White Blood Count 13.1 H Test 08/26/16 06:25 Bedside Glucose 179 Medications Medications Current Medications Labetalol HCl (Labetalol) 10 mg Q6H PRN IV sbp > 160 Last administered on 18:33; Admin Dose 10 MG; Start 07/28/16 at 00:30 Acetaminophen (Tylenol Supp) 650 mg Q6H PRN [place] PAIN AND OR ELEVATED TEMP Last administered on 07/31/16 17:30; Admin Dose 650 MG; Start 07/28/16 at 08:30 Miscellaneous Information 1 ea NOTE XX ; Start 07/28/16 at 09:00 Glucose (Glutose) 15 gm Q15M PRN PO DECREASED GLUCOSE; Start 07/28/16 at 09:00 Glucose (Glutose) 22.5 gm Q15M PRN PO DECREASED GLUCOSE; Start 07/28/16 at 09: 00 Dextrose (D50w Syringe) 25 ml Q15M PRN IV DECREASED GLUCOSE; Start 07/28/16 at 09:00 Dextrose (D50w Syringe) 50 ml Q15M PRN IV DECREASED GLUCOSE; Start 07/28/16 at 09:00 Glucagon (Glucagen) 1 mg Q15M PRN IM DECREASED GLUCOSE; Start 07/28/16 at 09:00 Glucose (Glutose) 15 gm Q15M PRN BUCCAL DECREASED GLUCOSE; Start 07/28/16 at 09 :00 IV Flush (NS 10 ml) 10 ml PRN PRN IV IV PROTOCOL; Start 07/29/16 at 17:00 Morphine Sulfate (morphine) 2 mg Q4 PRN IV PAIN Last administered on 08/12/16 23:38; Admin Dose 2 MG; Start 07/31/16 at 12:00 Lorazepam (Ativan) 1 mg Q1H PRN IV SEIZURES Last administered on 08/11/16 12:25 ; Admin Dose 1 MG; Start 08/02/16 at 02:00 Acetaminophen 650 mg 650 mg Q4H PRN NGT PAIN AND OR ELEVATED TEMP Last administered on 08/26/16 06:24; Admin Dose 650 MG; Start 08/03/16 at 00:00 Valproate Sodium/ Sodium Chloride (Depacon/NS) 57.5 ml @ 55 mls/hr Q6 IVPB Last administered on 08/26/16 06:29; Admin Dose 55 MLS/HR; Start 08/04/16 at 13: 00 Calcium Acetate (Phoslo) 667 mg Q6 NGT Last administered on 08/26/16 06:24; Admin Dose 667 MG; Start 08/05/16 at 08:30 Hydralazine HCl 10 mg 10 mg Q4H PRN IV ELEVATED SYSTOLIC BP Last administered on 08/25/16 06:05; Admin Dose 10 MG; Start 08/06/16 at 01:30 Levetiracetam/ Sodium Chloride (Keppra Iv/NS) 107.5 ml @ 420 mls/hr DAILY IVPB Last administered on 08/26/16 09:34; Admin Dose 420 MLS/HR; Start 08/08/16 at 09:00 Eye Lubricant (Artificial Tears Oph) 2 drop TID BOTH EYES Last administered on 08/26/16 09:35; Admin Dose 2 DROP; Start 08/13/16 at 09:00 Metoprolol Tartrate (Lopressor) 50 mg BID NGT Last administered on 08/26/16 09 :38; Admin Dose 50 MG; Start 08/15/16 at 21:00 Amiodarone HCl (Cordarone) 200 mg DAILY NGT Last administered on 08/26/16 09: 37; Admin Dose 200 MG; Start 08/18/16 at 09:00 Lansoprazole (Prevacid) 30 mg DAILY@06 NGT Last administered on 08/26/16 06:24 ; Admin Dose 30 MG; Start 08/18/16 at 06:00 Insulin Aspart (Novolog Insulin Pen) NOVOLOG *MODERATE* ALGORI... Q6 SC Last administered on 08/26/16 06:35; Admin Dose 2 UNIT; Start 08/19/16 at 00:00 Zinc Oxide (Desitin) 1 applic PRN PRN TOP RASH Last administered on 08/22/16 16:14; Admin Dose 1 APPLIC; Start 08/21/16 at 17:30 Sodium Bicarbonate (Sodium Bicarbonate Tab) 650 mg Q8 NGT Last administered on 08/26/16 06:24; Admin Dose 650 MG; Start 08/22/16 at 22:00 Insulin Human NPH (Humulin N) 44 unit ,, SC Last administered on 09:45; Admin Dose 44 UNIT; Start 08/23/16 at 17:00 Warfarin Sodium (Coumadin) 7.5 mg DAILY@17 PO ; Start 08/26/16 at 17:00; Status UNV MACIDO,MICHAEL TRAVELING SALES REPRESENTATIVE Aug 26, 2016 11:25
--- NOTE | 2016-08-26 13:36 | CONS ---
Date/Time of Note Date/Time of Note DATE: 08/26/16 TIME: 13:33 Assessment/Plan Assessment/Plan Additional Assessment/Plan Ventilator settings; AC of 16, tidal volume 650, PEEP of 5, 30% FiO2. Assessment and recommendations; 1. Patient admitted with sepsis with significant clinical improvement. Off antibiotics now. 2. Chronic respiratory failure due to anoxic encephalopathy. 3. End-stage renal disease on hemodialysis. 4. Tracheal bleed with interval resolution. 5. Stable seizure disorder. 6. Hypertension. Continue current supportive care. Patient awaiting discharge. Consultation Date/Type/Reason Admit Date/Time Jul 27, 2016 at 23:29 Initial Consult Date 07/28/16 Type of Consultation: Pulmonary Referring Provider: BARNEY MCKEE 24 HR Interval Summary Free Text/Dictation Patient's condition is stable. Remains unresponsive. Remained hemodynamically stable. General examination; middle aged man, on ventilator via tracheostomy currently in no distress. Remains unresponsive. Exam/Review of Systems Vital Signs Vitals Vital Signs Date Time Temp Pulse Resp B/P Pulse Ox O2 Delivery O2 Flow Rate FiO2 08/26/16 13:13 99 17 98 30 08/26/16 12:37 99.0 172/80 Intake and Output 08/25/16 08/25/16 08/26/16 15:00 23:00 07:00 Intake Total 1230 ml 680 ml Output Total 2500 ml Balance -1270 ml 680 ml Exam HEENT examination; supple neck, no JVD. No lymphadenopathy. Tracheostomy in place. There is mild crusting of blood around the insertion site. No active bleeding seen. She is edentulous. He was a midsize bilaterally. Chest examination; clear to auscultation. S1-S2 audible, no murmurs. Regular rhythm. Abdomen examination; soft, nondistended. No organomegaly. G-tube in place. Bowel sounds audible. Extremity examination; no peripheral edema. Pulses 2+ bilaterally. [employer]OR INSTALLER examination; patient remains unresponsive. Results Result Diagram: 08/26/16 0540 08/26/16 0540 Results 24 hrs Laboratory Tests Test 08/25/16 17:18 08/25/16 23:40 08/26/16 05:40 08/26/16 06:25 Bedside Glucose 152 171 179 Alanine Aminotransferase (ALT/SGPT) 37 Albumin 3.2 L Albumin/Globulin Ratio 0.82 Alkaline Phosphatase 97 Anion Gap 22 H Aspartate Amino Transf (AST/SGOT) 71 H Basophils # 0.1 Basophils % 0.5 Blood Urea Nitrogen 74 H Calcium Level 8.4 Carbon Dioxide Level 28 Chloride Level 94 L Creatinine 4.46 H Direct Bilirubin 0.00 Eosinophils # 0.3 Eosinophils % 2.1 Globulin 3.90 H Glucose Level 162 Hematocrit 26.8 L Hemoglobin 8.4 L INR International Normalized Ratio 1.46 Indirect Bilirubin 0.0 Lymphocytes # 1.6 Lymphocytes % 12.5 L Magnesium Level 2.5 Mean Corpuscular Hemoglobin 30.8 Mean Corpuscular Hemoglobin Concent 31.3 L Mean Corpuscular Volume 98.2 Mean Platelet Volume 10.7 H Monocytes # 1.4 H Monocytes % 10.9 Neutrophils # 8.8 H Neutrophils % 66.8 Nucleated Red Blood Cells # 0.0 Nucleated Red Blood Cells % 0.0 Phosphorus Level 5.1 H Platelet Count 220 Potassium Level 4.7 Prothrombin Time 17.8 H Prothrombin Time Ratio 1.4 Red Blood Count 2.73 L Red Cell Distribution Width 14.8 H Sodium Level 139 Total Bilirubin 0.0 L Total Protein 7.1 White Blood Count 13.1 H Test 08/26/16 12:54 Bedside Glucose 142 Medications Medications Current Medications Labetalol HCl (Labetalol) 10 mg Q6H PRN IV sbp > 160 Last administered on 18:33; Admin Dose 10 MG; Start 07/28/16 at 00:30 Acetaminophen (Tylenol Supp) [address] PAIN AND OR ELEVATED TEMP Last administered on 07/31/16 17:30; Admin Dose 650 MG; Start 07/28/16 at 08:30 Miscellaneous Information 1 ea NOTE XX ; Start 07/28/16 at 09:00 Glucose (Glutose) 15 gm Q15M PRN PO DECREASED GLUCOSE; Start 07/28/16 at 09:00 Glucose (Glutose) 22.5 gm Q15M PRN PO DECREASED GLUCOSE; Start 07/28/16 at 09: 00 Dextrose (D50w Syringe) 25 ml Q15M PRN IV DECREASED GLUCOSE; Start 07/28/16 at 09:00 Dextrose (D50w Syringe) 50 ml Q15M PRN IV DECREASED GLUCOSE; Start 07/28/16 at 09:00 Glucagon (Glucagen) 1 mg Q15M PRN IM DECREASED GLUCOSE; Start 07/28/16 at 09:00 Glucose (Glutose) 15 gm Q15M PRN BUCCAL DECREASED GLUCOSE; Start 07/28/16 at 09 :00 IV Flush (NS 10 ml) 10 ml PRN PRN IV IV PROTOCOL; Start 07/29/16 at 17:00 Morphine Sulfate (morphine) 2 mg Q4 PRN IV PAIN Last administered on 08/12/16 23:38; Admin Dose 2 MG; Start 07/31/16 at 12:00 Lorazepam (Ativan) 1 mg Q1H PRN IV SEIZURES Last administered on 08/11/16 12:25 ; Admin Dose 1 MG; Start 08/02/16 at 02:00 Acetaminophen 650 mg 650 mg Q4H PRN NGT PAIN AND OR ELEVATED TEMP Last administered on 08/26/16 06:24; Admin Dose 650 MG; Start 08/03/16 at 00:00 Valproate Sodium/ Sodium Chloride (Depacon/NS) 57.5 ml @ 55 mls/hr Q6 IVPB Last administered on 08/26/16 12:59; Admin Dose 55 MLS/HR; Start 08/04/16 at 13: 00 Calcium Acetate (Phoslo) 667 mg Q6 NGT Last administered on 08/26/16 12:59; Admin Dose 667 MG; Start 08/05/16 at 08:30 Hydralazine HCl 10 mg 10 mg Q4H PRN IV ELEVATED SYSTOLIC BP Last administered on 08/25/16 06:05; Admin Dose 10 MG; Start 08/06/16 at 01:30 Levetiracetam/ Sodium Chloride (Keppra Iv/NS) 107.5 ml @ 420 mls/hr DAILY IVPB Last administered on 08/26/16 09:34; Admin Dose 420 MLS/HR; Start 08/08/16 at 09:00 Eye Lubricant (Artificial Tears Oph) 2 drop TID BOTH EYES Last administered on 08/26/16 13:00; Admin Dose 2 DROP; Start 08/13/16 at 09:00 Metoprolol Tartrate (Lopressor) 50 mg BID NGT Last administered on 08/26/16 09 :38; Admin Dose 50 MG; Start 08/15/16 at 21:00 Amiodarone HCl (Cordarone) 200 mg DAILY NGT Last administered on 08/26/16 09: 37; Admin Dose 200 MG; Start 08/18/16 at 09:00 Lansoprazole (Prevacid) 30 mg DAILY@06 NGT Last administered on 08/26/16 06:24 ; Admin Dose 30 MG; Start 08/18/16 at 06:00 Insulin Aspart (Novolog Insulin Pen) NOVOLOG *MODERATE* ALGORI... Q6 SC Last administered on 08/26/16 13:01; Admin Dose 2 UNIT; Start 08/19/16 at 00:00 Zinc Oxide (Desitin) 1 applic PRN PRN TOP RASH Last administered on 08/22/16 16:14; Admin Dose 1 APPLIC; Start 08/21/16 at 17:30 Sodium Bicarbonate (Sodium Bicarbonate Tab) 650 mg Q8 NGT Last administered on 08/26/16 06:24; Admin Dose 650 MG; Start 08/22/16 at 22:00 Insulin Human NPH (Humulin N) 44 unit ,, SC Last administered on 09:45; Admin Dose 44 UNIT; Start 08/23/16 at 17:00 Warfarin Sodium (Coumadin) 7.5 mg DAILY@17 PO ; Start 08/26/16 at 17:00 AMOR RODRIGUES Aug 26, 2016 13:35
--- NOTE | 2016-08-26 13:59 | CONS ---
Date/Time of Note Date/Time of Note DATE: 08/26/16 TIME: 13:57 Assessment/Plan Assessment/Plan Chief Complaint/Hosp Course Unfortunate 56-year-old gentleman who came in after suffering respiratory arrest which induced cardiac arrest. He has a significant anoxic encephalopathy post event and has not shown significant improvement. He is ventilator dependent and feeding tube dependent. Premorbid he had end-stage renal disease and was dialysis dependent. He is on continuous tube feedings. In the recent past he has had some changes in the way his temperature is been spiking although he has been having fevers for more some of his hospitalization which were likely central fevers Problems: (1) Type 2 diabetes mellitus with hypertension and end stage renal disease on dialysis Status: Chronic Comment: Blood sugar control continues nominally. No change in medications at this time unless there is can be change in feeding status. Long-term hope for neurologic recovery to independent living state is nil Consultation Date/Type/Reason Admit Date/Time Jul 27, 2016 at 23:29 Initial Consult Date 08/17/16 Type of Consultation: Endocrinology Reason for Consultation Diabetes mellitus type 2 out of control Referring Provider: BARNEY MCKEE 24 HR Interval Summary Subjective hx not possible: pt non-verbal (Status post anoxic brain injury with chronic vegetative state) Exam/Review of Systems Vital Signs Vitals Vital Signs Date Time Temp Pulse Resp B/P Pulse Ox O2 Delivery O2 Flow Rate FiO2 08/26/16 13:13 99 17 98 30 08/26/16 12:37 99.0 172/80 Intake and Output 08/25/16 08/25/16 08/26/16 15:00 23:00 07:00 Intake Total 1230 ml 680 ml Output Total 2500 ml Balance -1270 ml 680 ml Exam No change in exam especially no change in neurologic features Results Result Diagram: 08/26/16 0540 08/26/16 0540 Results 24 hrs Laboratory Tests Test 08/25/16 17:18 08/25/16 23:40 08/26/16 05:40 08/26/16 06:25 Bedside Glucose 152 171 179 Alanine Aminotransferase (ALT/SGPT) 37 Albumin 3.2 L Albumin/Globulin Ratio 0.82 Alkaline Phosphatase 97 Anion Gap 22 H Aspartate Amino Transf (AST/SGOT) 71 H Basophils # 0.1 Basophils % 0.5 Blood Urea Nitrogen 74 H Calcium Level 8.4 Carbon Dioxide Level 28 Chloride Level 94 L Creatinine 4.46 H Direct Bilirubin 0.00 Eosinophils # 0.3 Eosinophils % 2.1 Globulin 3.90 H Glucose Level 162 Hematocrit 26.8 L Hemoglobin 8.4 L INR International Normalized Ratio 1.46 Indirect Bilirubin 0.0 Lymphocytes # 1.6 Lymphocytes % 12.5 L Magnesium Level 2.5 Mean Corpuscular Hemoglobin 30.8 Mean Corpuscular Hemoglobin Concent 31.3 L Mean Corpuscular Volume 98.2 Mean Platelet Volume 10.7 H Monocytes # 1.4 H Monocytes % 10.9 Neutrophils # 8.8 H Neutrophils % 66.8 Nucleated Red Blood Cells # 0.0 Nucleated Red Blood Cells % 0.0 Phosphorus Level 5.1 H Platelet Count 220 Potassium Level 4.7 Prothrombin Time 17.8 H Prothrombin Time Ratio 1.4 Red Blood Count 2.73 L Red Cell Distribution Width 14.8 H Sodium Level 139 Total Bilirubin 0.0 L Total Protein 7.1 White Blood Count 13.1 H Test 08/26/16 12:54 Bedside Glucose 142 Medications Medications Current Medications Labetalol HCl (Labetalol) 10 mg Q6H PRN IV sbp > 160 Last administered on 18:33; Admin Dose 10 MG; Start 07/28/16 at 00:30 Acetaminophen (Tylenol Supp) 650 mg Q6H PRN [place] PAIN AND OR ELEVATED TEMP Last administered on 07/31/16 17:30; Admin Dose 650 MG; Start 07/28/16 at 08:30 Miscellaneous Information 1 ea NOTE XX ; Start 07/28/16 at 09:00 Glucose (Glutose) 15 gm Q15M PRN PO DECREASED GLUCOSE; Start 07/28/16 at 09:00 Glucose (Glutose) 22.5 gm Q15M PRN PO DECREASED GLUCOSE; Start 07/28/16 at 09: 00 Dextrose (D50w Syringe) 25 ml Q15M PRN IV DECREASED GLUCOSE; Start 07/28/16 at 09:00 Dextrose (D50w Syringe) 50 ml Q15M PRN IV DECREASED GLUCOSE; Start 07/28/16 at 09:00 Glucagon (Glucagen) 1 mg Q15M PRN IM DECREASED GLUCOSE; Start 07/28/16 at 09:00 Glucose (Glutose) 15 gm Q15M PRN BUCCAL DECREASED GLUCOSE; Start 07/28/16 at 09 :00 IV Flush (NS 10 ml) 10 ml PRN PRN IV IV PROTOCOL; Start 07/29/16 at 17:00 Morphine Sulfate (morphine) 2 mg Q4 PRN IV PAIN Last administered on 08/12/16 23:38; Admin Dose 2 MG; Start 07/31/16 at 12:00 Lorazepam (Ativan) 1 mg Q1H PRN IV SEIZURES Last administered on 08/11/16 12:25 ; Admin Dose 1 MG; Start 08/02/16 at 02:00 Acetaminophen 650 mg 650 mg Q4H PRN NGT PAIN AND OR ELEVATED TEMP Last administered on 08/26/16 06:24; Admin Dose 650 MG; Start 08/03/16 at 00:00 Valproate Sodium/ Sodium Chloride (Depacon/NS) 57.5 ml @ 55 mls/hr Q6 IVPB Last administered on 08/26/16 12:59; Admin Dose 55 MLS/HR; Start 08/04/16 at 13: 00 Calcium Acetate (Phoslo) 667 mg Q6 NGT Last administered on 08/26/16 12:59; Admin Dose 667 MG; Start 08/05/16 at 08:30 Hydralazine HCl 10 mg 10 mg Q4H PRN IV ELEVATED SYSTOLIC BP Last administered on 08/25/16 06:05; Admin Dose 10 MG; Start 08/06/16 at 01:30 Levetiracetam/ Sodium Chloride (Keppra Iv/NS) 107.5 ml @ 420 mls/hr DAILY IVPB Last administered on 08/26/16 09:34; Admin Dose 420 MLS/HR; Start 08/08/16 at 09:00 Eye Lubricant (Artificial Tears Oph) 2 drop TID BOTH EYES Last administered on 08/26/16 13:00; Admin Dose 2 DROP; Start 08/13/16 at 09:00 Metoprolol Tartrate (Lopressor) 50 mg BID NGT Last administered on 08/26/16 09 :38; Admin Dose 50 MG; Start 08/15/16 at 21:00 Amiodarone HCl (Cordarone) 200 mg DAILY NGT Last administered on 08/26/16 09: 37; Admin Dose 200 MG; Start 08/18/16 at 09:00 Lansoprazole (Prevacid) 30 mg DAILY@06 NGT Last administered on 08/26/16 06:24 ; Admin Dose 30 MG; Start 08/18/16 at 06:00 Insulin Aspart (Novolog Insulin Pen) NOVOLOG *MODERATE* ALGORI... Q6 SC Last administered on 08/26/16 13:01; Admin Dose 2 UNIT; Start 08/19/16 at 00:00 Zinc Oxide (Desitin) 1 applic PRN PRN TOP RASH Last administered on 08/22/16 16:14; Admin Dose 1 APPLIC; Start 08/21/16 at 17:30 Sodium Bicarbonate (Sodium Bicarbonate Tab) 650 mg Q8 NGT Last administered on 08/26/16 06:24; Admin Dose 650 MG; Start 08/22/16 at 22:00 Insulin Human NPH (Humulin N) 44 unit ,, SC Last administered on 09:45; Admin Dose 44 UNIT; Start 08/23/16 at 17:00 Warfarin Sodium (Coumadin) 7.5 mg DAILY@17 PO ; Start 08/26/16 at 17:00 LOPEZ LOW MD Aug 26, 2016 13:59
[2016-08-26] MEDS ORDERED: WARFARIN 7.5 MG TAB PO SCH (17:00)
[2016-08-26] MEDS: ZINC OXIDE 13% (DESITIN) CREAM 2 OZ TUBE TOP PRN (23:44)
[2016-08-27] VITALS (31 sets, daily range): BP systolic 89–174; BP diastolic 53–80; PULSE 92–111; RESP 14–23
--- NOTE | 2016-08-27 01:09 | RADRPT ---
PROCEDURE: MR Brain without contrast. CLINICAL INDICATION: Cardiac arrest. Evaluate for stroke. TECHNIQUE: An MRI of the brain was performed on a 1.5 maria fernanda scanner utilizing the following sequen abdirashid: Sagittal T1 weighted, axial T2 weighted, axial FLAIR, coronal GRE, and axial diffusion weighted with ADC mapping. COMPARISON: None FINDINGS: 8 mm focus of restricted effusion in the left superior frontal lobe at the level of the precentral g yrus compatible with an ischemic infarct. There is no evidence of intracranial hemorrhage, mass eff ect, or midline shift. No extra-axial fluid collections are seen. No hypointense signal abnormalities are seen on the GRE images to suggest the presence of blood degr adation products. Periventricular and subcortical white matter T2 signal hyperintensity foci of compatible with sequel ae of chronic microvascular ischemic injury. Marked prominence of the ventricles and subarachnoid s paces compatible with central cerebral volume loss. The posterior fossa contents, brainstem, seventh - eighth cranial nerve complexes, pituitary axis, o rbits, paranasal sinuses are unremarkable. Fluid signal within the mastoid air cells bilaterally com patible with retained secretions and inflammatory change. Normal flow voids are visible in the proximal intracranial arteries and dural sinuses, indicating pa tency. IMPRESSION: 1. Single focus of restricted diffusion in the left superior frontal lobe at the level of the precen tral gyrus compatible with acute / subacute ischemic infarct.. No edema, mass effect hemorrhage. 2. Mild chronic microvascular ischemic changes in the deep white matter march central parenchymal v olume loss. 3. No intracranial hemorrhage. RPTAT:AAJJ Physician Yaakov Date Time Electronically viewed and signed by Physician Yaakov on 08/27/2016 01:08 DAVID/
[2016-08-27] MEDS: IPRATROPIUM (HFA) 12.9 GM INHALER INH SCH ×6 (02:04→21:00)
[2016-08-27] MEDS: ALBUTEROL HFA 8 GM INHALER INH SCH ×6 (02:05→21:00)
[2016-08-27] MEDS: NPH, HUMAN INSULIN ISOPHANE 3ML VIAL SC SCH ×3 (02:16→18:49)
[2016-08-27] MEDS: NA BICARBONATE 650 MG TAB NGT SCH ×3 (05:27→22:37)
[2016-08-27] MEDS: LANSOPRAZOLE 30 MG CAP NGT SCH (05:27)
[2016-08-27] MEDS: VALPROATE INJ 750 MG in SOD CHLORIDE 0.9% 50 ML IVPB SCH (05:27)
[2016-08-27] MEDS: CALCIUM ACETATE 667 MG CAP NGT SCH ×3 (05:27→18:53)
[2016-08-27] MEDS: INSULIN ASPART [NOVOLOG] 3 ML PEN SC SCH ×3 (05:35→18:56)
[2016-08-27 07:17] LABS: ADD SCAN DIFF NO
[2016-08-27 07:20] LABS: ABNORMAL IP MESSAGE 1; HEMATOCRIT 24.5 % (42.0-52.0); HEMOGLOBIN 7.7 g/dl (14.0-18.0); MEAN CORPUSCULAR HEMOGLOBIN 30.8 pg (29.0-33.0); MEAN CORPUSCULAR HGB CONC 31.4 g/dl (32.0-37.0); MEAN PLATELET VOLUME 10.5 fl (7.4-10.4); PLATELET COUNT 235 10^3/UL (140-415); RED CELL DISTRIBUTION WIDTH 14.8 % (11.5-14.5); WHITE BLOOD COUNT 14.9 10^3/ul (4.8-10.8)
[2016-08-27 07:31] LABS: INR 2.27; PROTIME 25.3 Sec (12.2-14.2)
[2016-08-27 07:40] LABS: MAGNESIUM 2.7 mg/dl (1.7-2.5); PHOSPHORUS 6.2 mg/dl (2.5-4.9)
[2016-08-27] MEDS: ARFORMOTEROL TARTRATE 15MCG/2 ML AMP NEB SCH ×2 (07:59→20:00)
[2016-08-27] MEDS: BUDESONIDE (NEB) 0.5MG/2ML AMP HHN SCH ×2 (08:05→19:51)
--- NOTE | 2016-08-27 08:05 | CONS ---
Date/Time of Note Date/Time of Note DATE: 08/27/16 TIME: 08:03 Assessment/Plan Assessment/Plan Problems: (1) ESRD (end stage renal disease) on dialysis Comment: for planned HD today (2) Type 2 diabetes mellitus with hypertension and end stage renal disease on dialysis Status: Chronic Comment: managed by endo (3) Anoxic encephalopathy Status: Acute Comment: remains non responsive on the vent via trach... PEG for TF in place as well Consultation Date/Type/Reason Admit Date/Time Jul 27, 2016 at 23:29 Initial Consult Date 07/28/16 Type of Consultation: neph Referring Provider: BARNEY MCKEE 24 HR Interval Summary Free Text/Dictation pt remains non responsive on the vent Exam/Review of Systems Vital Signs Vitals Vital Signs Date Time Temp Pulse Resp B/P Pulse Ox O2 Delivery O2 Flow Rate FiO2 08/27/16 06:02 98.5 08/27/16 05:50 95 20 95 30 08/27/16 04:52 104/53 Intake and Output 08/26/16 08/26/16 08/27/16 15:00 23:00 07:00 Intake Total 157.5 ml 730 ml 575.0 ml Output Total 0 ml Balance 157.5 ml 730 ml 575.0 ml Exam Constitutional: non-verbal Cardiovascular: regular rate and rhythm Extremities: normal pulses Results Result Diagram: 08/27/16 0610 08/26/16 0540 Results 24 hrs Laboratory Tests Test 08/26/16 12:54 08/26/16 18:13 08/26/16 21:41 08/26/16 23:46 Bedside Glucose 142 164 144 118 Test 08/27/16 01:41 08/27/16 05:28 08/27/16 06:10 Bedside Glucose 108 117 Basophils # Pending Basophils % Pending Eosinophils # Pending Eosinophils % Pending Hematocrit 24.5 L Hemoglobin 7.7 L INR International Normalized Ratio 2.27 Lymphocytes # Pending Lymphocytes % Pending Magnesium Level 2.7 H Mean Corpuscular Hemoglobin 30.8 Mean Corpuscular Hemoglobin Concent 31.4 L Mean Corpuscular Volume 98.0 Mean Platelet Volume 10.5 H Monocytes # Pending Monocytes % Pending Neutrophils # Pending Neutrophils % Pending Nucleated Red Blood Cells # Pending Nucleated Red Blood Cells % Pending Phosphorus Level 6.2 H Platelet Count 235 Prothrombin Time 25.3 #H Prothrombin Time Ratio 2.0 Red Blood Count 2.50 L Red Cell Distribution Width 14.8 H Valproic Acid (Depakene) Level Pending White Blood Count 14.9 H Medications Medications Current Medications Labetalol HCl (Labetalol) 10 mg Q6H PRN IV sbp > 160 Last administered on 18:33; Admin Dose 10 MG; Start 07/28/16 at 00:30 Acetaminophen (Tylenol Supp) 650 mg Q6H PRN [place] PAIN AND OR ELEVATED TEMP Last administered on 07/31/16 17:30; Admin Dose 650 MG; Start 07/28/16 at 08:30 Miscellaneous Information 1 ea NOTE XX ; Start 07/28/16 at 09:00 Glucose (Glutose) 15 gm Q15M PRN PO DECREASED GLUCOSE; Start 07/28/16 at 09:00 Glucose (Glutose) 22.5 gm Q15M PRN PO DECREASED GLUCOSE; Start 07/28/16 at 09: 00 Dextrose (D50w Syringe) 25 ml Q15M PRN IV DECREASED GLUCOSE; Start 07/28/16 at 09:00 Dextrose (D50w Syringe) 50 ml Q15M PRN IV DECREASED GLUCOSE; Start 07/28/16 at 09:00 Glucagon (Glucagen) 1 mg Q15M PRN IM DECREASED GLUCOSE; Start 07/28/16 at 09:00 Glucose (Glutose) 15 gm Q15M PRN BUCCAL DECREASED GLUCOSE; Start 07/28/16 at 09 :00 IV Flush (NS 10 ml) 10 ml PRN PRN IV IV PROTOCOL; Start 07/29/16 at 17:00 Morphine Sulfate (morphine) 2 mg Q4 PRN IV PAIN Last administered on 08/12/16 23:38; Admin Dose 2 MG; Start 07/31/16 at 12:00 Lorazepam (Ativan) 1 mg Q1H PRN IV SEIZURES Last administered on 08/11/16 12:25 ; Admin Dose 1 MG; Start 08/02/16 at 02:00 Acetaminophen 650 mg 650 mg Q4H PRN NGT PAIN AND OR ELEVATED TEMP Last administered on 08/26/16 18:53; Admin Dose 650 MG; Start 08/03/16 at 00:00 Valproate Sodium/ Sodium Chloride (Depacon/NS) 57.5 ml @ 55 mls/hr Q6 IVPB Last administered on 08/27/16 05:27; Admin Dose 55 MLS/HR; Start 08/04/16 at 13: 00 Calcium Acetate (Phoslo) 667 mg Q6 NGT Last administered on 08/27/16 05:27; Admin Dose 667 MG; Start 08/05/16 at 08:30 Hydralazine HCl 10 mg 10 mg Q4H PRN IV ELEVATED SYSTOLIC BP Last administered on 08/25/16 06:05; Admin Dose 10 MG; Start 08/06/16 at 01:30 Levetiracetam/ Sodium Chloride (Keppra Iv/NS) 107.5 ml @ 420 mls/hr DAILY IVPB Last administered on 08/26/16 09:34; Admin Dose 420 MLS/HR; Start 08/08/16 at 09:00 Eye Lubricant (Artificial Tears Oph) 2 drop TID BOTH EYES Last administered on 08/26/16 21:35; Admin Dose 2 DROP; Start 08/13/16 at 09:00 Metoprolol Tartrate (Lopressor) 50 mg BID NGT Last administered on 08/26/16 21 :42; Admin Dose 50 MG; Start 08/15/16 at 21:00 Amiodarone HCl (Cordarone) 200 mg DAILY NGT Last administered on 08/26/16 09: 37; Admin Dose 200 MG; Start 08/18/16 at 09:00 Lansoprazole (Prevacid) 30 mg DAILY@06 NGT Last administered on 08/27/16 05:27 ; Admin Dose 30 MG; Start 08/18/16 at 06:00 Insulin Aspart (Novolog Insulin Pen) NOVOLOG *MODERATE* ALGORI... Q6 SC Last administered on 08/26/16 18:30; Admin Dose 2 UNIT; Start 08/19/16 at 00:00 Zinc Oxide (Desitin) 1 applic PRN PRN TOP RASH Last administered on 08/26/16 23:44; Admin Dose 1 APPLIC; Start 08/21/16 at 17:30 Sodium Bicarbonate (Sodium Bicarbonate Tab) 650 mg Q8 NGT Last administered on 08/27/16 05:27; Admin Dose 650 MG; Start 08/22/16 at 22:00 Insulin Human NPH (Humulin N) 44 unit , SC Last administered on 02:16; Admin Dose 44 UNIT; Start 08/23/16 at 17:00 Warfarin Sodium (Coumadin) 7.5 mg DAILY@17 PO Last administered on 08/26/16 18 :53; Admin Dose 7.5 MG; Start 08/26/16 at 17:00 CAROLINE DEL CID MD Aug 27, 2016 08:05
[2016-08-27 08:54] LABS: POTASSIUM 4.8 mmol/L (3.5-5.1)
[2016-08-27 08:57] LABS: CALCIUM 8.2 mg/dl (8.4-10.2)
[2016-08-27] MEDS: AMIODARONE 200 MG TAB NGT SCH (09:00)
[2016-08-27] MEDS: METOPROLOL 50 MG TAB NGT SCH ×2 (09:00→21:00)
[2016-08-27 09:41] LABS: CREATININE 5.93 mg/dl (0.61-1.24)
[2016-08-27] MEDS: ARTIFICIAL TEARS 15 ML OPH BOTH EYES SCH ×3 (10:13→21:00)
[2016-08-27] MEDS: LEVETIRACETAM IV 750 MG in SOD CHLORIDE 0.9% 100 ML IVPB SCH (10:18)
[2016-08-27 10:43] LABS: BASOPHIL # 0.1 10^3/ul (0.0-0.1); EOSINOPHILS # 0.3 10^3/ul (0.0-0.5); LYMPHOCYTES # 1.3 10^3/ul (0.8-2.9); MONOCYTE # 1.2 10^3/ul (0.3-0.9); MYELOCYTES # 0.4; NEUTROPHIL # 9.1 10^3/ul (1.6-7.5)
--- NOTE | 2016-08-27 11:47 | PN ---
Date/Time of Note Date/Time of Note DATE: 08/27/16 TIME: 11:45 Assessment/Plan VTE Prophylaxis VTE Prophylaxis Intervention: other (Warfarin.) Lines/Catheters IV C[facility]ter Type (from [facility]): PICC Line Central line still needed: Yes Urinary Cath still in place: No Assessment/Plan Chief Complaint/Hosp Course 1. Status post cardiac arrest secondary to PEA. Status post trach and PEG. Family hesitant on changing the code status. 2. Acute respiratory failure, hypoxic. Continue ventilator management as per pulmonary. Continue inhaled bronchodilators. 3. End-stage renal disease on hemodialysis. Continue hemodialysis as per nephrology. 4. Status post systemic inflammatory response syndrome. Status post antibiotics. 5. Paroxysmal atrial fibrillation with rapid ventricular response. Currently in sinus rhythm. On amiodarone and metoprolol. On warfarin for stroke prophylaxis. 6. Type 2 diabetes mellitus. Hemoglobin A1c 7.3. Continue insulin sliding scale along with Lantus insulin. 7. Essential hypertension. Continue antihypertensives. 8. Seizure disorder. Most probably secondary to anoxia. Continue anticonvulsants. 9. Possible underlying anoxic encephalopathy. Brain MRI showing a single focus of restricted diffusion in the left superior frontal lobe at the level of the precentral gyrus compatible with acute/subacute ischemic infarct. 10. Normocytic normochromic anemia, most probably anemia of chronic kidney disease. Will monitor H and H closely. 11. Fluid, electrolytes and nutrition. Continue G-tube feedings. 12. Deep venous thrombosis prophylaxis. On warfarin. 13. Gastrointestinal prophylaxis. Proton pump inhibitors. PLAN: Continue inpatient care. The patient's fevers could be neurogenic in origin. All the cultures have been negative. Hold valproic acid because of high serum levels. Await placement to a senior care facility. The case was discussed with Dr. Nguyen. The plan of care was explained to the patient's family. Problems: Subjective 24 Hr Interval Summary Free Text/Dictation Status remains unchanged. Exam/Review of Systems Vital Signs Vitals Vital Signs Date Time Temp Pulse Resp B/P Pulse Ox O2 Delivery O2 Flow Rate FiO2 08/27/16 11:15 88 16 95 30 08/27/16 08:12 99.0 121/59 Intake and Output 08/26/16 08/26/16 08/27/16 15:00 23:00 07:00 Intake Total 157.5 ml 730 ml 575.0 ml Output Total 0 ml Balance 157.5 ml 730 ml 575.0 ml Exam GENERAL: This is an obese male patient lying in bed with tracheostomy to vent, in no apparent distress. HEENT: Head normocephalic and atraumatic. Eyes: Anicteric sclerae. Conjunctivae clear. ENT: Nasal septum Oral mucosa is dry. NECK: Supple. Tracheostomy midline. RESPIRATORY: Bilateral diminished breath sounds. Tracheostomy connected to mechanical ventilator. On AC mode ventilation. Diminished breath sounds bilaterally. CARDIAC: Regular rate and rhythm. No obvious murmurs heard. ABDOMEN: Soft, nontender and nondistended. Left upper quadrant G-tube in place. GENITOURINARY: Deferred. EXTREMITIES: No cyanosis, no clubbing, no edema. Peripheral pulses are palpable. NEUROLOGIC: The patient is obtunded. Opens eyes. Does not follow any commands. Results Result Diagram: 08/27/16 0610 08/27/16 0610 Results 24 hrs Laboratory Tests Test 08/26/16 12:54 08/26/16 18:13 08/26/16 21:41 08/26/16 23:46 Bedside Glucose 142 164 144 118 Test 08/27/16 01:41 08/27/16 05:28 08/27/16 06:10 Bedside Glucose 108 117 Anion Gap 28 H Band Neutrophils % 14.0 H Basophils # 0.1 Basophils % 1.0 Blood Urea Nitrogen 107 #H Calcium Level 8.2 L Carbon Dioxide Level 23 Chloride Level 96 L Creatinine 5.93 H Eosinophils # 0.3 Eosinophils % 2.0 Glucose Level 109 # Hematocrit 24.5 L Hemoglobin 7.7 L INR International Normalized Ratio 2.27 Lymphocytes # 1.3 Lymphocytes % 9.0 L Magnesium Level 2.7 H Mean Corpuscular Hemoglobin 30.8 Mean Corpuscular Hemoglobin Concent 31.4 L Mean Corpuscular Volume 98.0 Mean Platelet Volume 10.5 H Metamyelocytes # 0.3 Metamyelocytes % 2.0 H Monocytes # 1.2 H Monocytes % 8.0 Myelocytes # 0.4 Myelocytes % 3.0 H Neutrophils # 9.1 H Neutrophils % 61.0 Nucleated Red Blood Cells # Nucleated Red Blood Cells % Phosphorus Level 6.2 H Platelet Count 235 Potassium Level 4.8 Prothrombin Time 25.3 #H Prothrombin Time Ratio 2.0 Red Blood Count 2.50 L Red Cell Distribution Width 14.8 H Sodium Level 142 Valproic Acid (Depakene) Level 369 *H White Blood Count 14.9 H Medications Medications Current Medications Labetalol HCl (Labetalol) 10 mg Q6H PRN IV sbp > 160 Last administered on 18:33; Admin Dose 10 MG; Start 07/28/16 at 00:30 Acetaminophen (Tylenol Supp) 650 mg Q6H PRN [place] PAIN AND OR ELEVATED TEMP Last administered on 07/31/16 17:30; Admin Dose 650 MG; Start 07/28/16 at 08:30 Miscellaneous Information 1 ea NOTE XX ; Start 07/28/16 at 09:00 Glucose (Glutose) 15 gm Q15M PRN PO DECREASED GLUCOSE; Start 07/28/16 at 09:00 Glucose (Glutose) 22.5 gm Q15M PRN PO DECREASED GLUCOSE; Start 07/28/16 at 09: 00 Dextrose (D50w Syringe) 25 ml Q15M PRN IV DECREASED GLUCOSE; Start 07/28/16 at 09:00 Dextrose (D50w Syringe) 50 ml Q15M PRN IV DECREASED GLUCOSE; Start 07/28/16 at 09:00 Glucagon (Glucagen) 1 mg Q15M PRN IM DECREASED GLUCOSE; Start 07/28/16 at 09:00 Glucose (Glutose) 15 gm Q15M PRN BUCCAL DECREASED GLUCOSE; Start 07/28/16 at 09 :00 IV Flush (NS 10 ml) 10 ml PRN PRN IV IV PROTOCOL; Start 07/29/16 at 17:00 Morphine Sulfate (morphine) 2 mg Q4 PRN IV PAIN Last administered on 08/12/16 23:38; Admin Dose 2 MG; Start 07/31/16 at 12:00 Lorazepam (Ativan) 1 mg Q1H PRN IV SEIZURES Last administered on 08/11/16 12:25 ; Admin Dose 1 MG; Start 08/02/16 at 02:00 Acetaminophen (Tylenol Liquid) 650 mg Q4H PRN NGT PAIN AND OR ELEVATED TEMP Last administered on 08/26/16 18:53; Admin Dose 650 MG; Start 08/03/16 at 00:00 Calcium Acetate (Phoslo) 667 mg Q6 NGT Last administered on 08/27/16 05:27; Admin Dose 667 MG; Start 08/05/16 at 08:30 Hydralazine HCl 10 mg 10 mg Q4H PRN IV ELEVATED SYSTOLIC BP Last administered on 08/25/16 06:05; Admin Dose 10 MG; Start 08/06/16 at 01:30 Levetiracetam/ Sodium Chloride (Keppra Iv/NS) 107.5 ml @ 420 mls/hr DAILY IVPB Last administered on 08/27/16 10:18; Admin Dose 420 MLS/HR; Start 08/08/16 at 09:00 Eye Lubricant (Artificial Tears Oph) 2 drop TID BOTH EYES Last administered on 08/27/16 10:13; Admin Dose 2 DROP; Start 08/13/16 at 09:00 Metoprolol Tartrate (Lopressor) 50 mg BID NGT Last administered on 08/26/16 21 :42; Admin Dose 50 MG; Start 08/15/16 at 21:00 Amiodarone HCl (Cordarone) 200 mg DAILY NGT Last administered on 08/26/16 09: 37; Admin Dose 200 MG; Start 08/18/16 at 09:00 Lansoprazole (Prevacid) 30 mg DAILY@06 NGT Last administered on 08/27/16 05:27 ; Admin Dose 30 MG; Start 08/18/16 at 06:00 Insulin Aspart (Novolog Insulin Pen) NOVOLOG *MODERATE* ALGORI... Q6 SC Last administered on 08/26/16 18:30; Admin Dose 2 UNIT; Start 08/19/16 at 00:00 Zinc Oxide (Desitin) 1 applic PRN PRN TOP RASH Last administered on 08/26/16 23:44; Admin Dose 1 APPLIC; Start 08/21/16 at 17:30 Sodium Bicarbonate (Sodium Bicarbonate Tab) 650 mg Q8 NGT Last administered on 08/27/16 05:27; Admin Dose 650 MG; Start 08/22/16 at 22:00 Insulin Human NPH (Humulin N) 44 unit ,, SC Last administered on 10:20; Admin Dose 44 UNIT; Start 08/23/16 at 17:00 Warfarin Sodium (Coumadin) 5 mg DAILY@17 GTB ; Start 08/27/16 at 17:00 MICHAEL OLIVER NP Aug 27, 2016 11:47
--- NOTE | 2016-08-27 11:57 | CONS ---
Date/Time of Note Date/Time of Note DATE: 08/27/16 TIME: 11:55 Assessment/Plan Assessment/Plan Additional Assessment/Plan Ventilator settings are assist control of 16, tidal volume 650, PEEP of 5, 30% FiO2. Assessment and recommendations; 1. Patient admitted with sepsis status post antibiotic treatment. 2. History of severe anoxic encephalopathy, patient remains ventilator dependent. Unable to be weaned. 3. Stable seizure disorder. 4. Status post tracheal insertion site bleed without any recurrence. 5. End-stage renal disease, on hemodialysis. Continue current treatment. Patient awaiting discharge. Consultation Date/Type/Reason Admit Date/Time Jul 27, 2016 at 23:29 Initial Consult Date 07/28/16 Type of Consultation: Pulmonary Referring Provider: BARNEY MCKEE 24 HR Interval Summary Free Text/Dictation Patient condition stable. Has remained hemodynamically stable. On account of underlying anoxic encephalopathy patient is unresponsive. This is his underlying mental status. General examination; elderly male, on ventilator via tracheostomy. Getting hemodialysis at bedside. Exam/Review of Systems Vital Signs Vitals Vital Signs Date Time Temp Pulse Resp B/P Pulse Ox O2 Delivery O2 Flow Rate FiO2 08/27/16 11:15 88 16 95 30 08/27/16 08:12 99.0 121/59 Intake and Output 08/26/16 08/26/16 08/27/16 15:00 23:00 07:00 Intake Total 157.5 ml 730 ml 575.0 ml Output Total 0 ml Balance 157.5 ml 730 ml 575.0 ml Exam HEENT examination; supple neck, no JVD. No lymphadenopathy. No thyromegaly. Patient is edentulous. There is minimal crusting of blood around the tracheostomy insertion site without any active bleeding. Chest examination; clear to auscultation bilaterally. S1-S2 audible, no murmurs. Regular rhythm. Abdomen examination; soft, G-tube in place. No organomegaly. Nondistended abdomen. Extremity examination; no peripheral edema. [employer] examination; patient remains completely unresponsive. Results Result Diagram: 08/27/16 0610 08/27/16 0610 Results 24 hrs Laboratory Tests Test 08/26/16 12:54 08/26/16 18:13 08/26/16 21:41 08/26/16 23:46 Bedside Glucose 142 164 144 118 Test 08/27/16 01:41 08/27/16 05:28 08/27/16 06:10 Bedside Glucose 108 117 Anion Gap 28 H Band Neutrophils % 14.0 H Basophils # 0.1 Basophils % 1.0 Blood Urea Nitrogen 107 #H Calcium Level 8.2 L Carbon Dioxide Level 23 Chloride Level 96 L Creatinine 5.93 H Eosinophils # 0.3 Eosinophils % 2.0 Glucose Level 109 # Hematocrit 24.5 L Hemoglobin 7.7 L INR International Normalized Ratio 2.27 Lymphocytes # 1.3 Lymphocytes % 9.0 L Magnesium Level 2.7 H Mean Corpuscular Hemoglobin 30.8 Mean Corpuscular Hemoglobin Concent 31.4 L Mean Corpuscular Volume 98.0 Mean Platelet Volume 10.5 H Metamyelocytes # 0.3 Metamyelocytes % 2.0 H Monocytes # 1.2 H Monocytes % 8.0 Myelocytes # 0.4 Myelocytes % 3.0 H Neutrophils # 9.1 H Neutrophils % 61.0 Nucleated Red Blood Cells # Nucleated Red Blood Cells % Phosphorus Level 6.2 H Platelet Count 235 Potassium Level 4.8 Prothrombin Time 25.3 #H Prothrombin Time Ratio 2.0 Red Blood Count 2.50 L Red Cell Distribution Width 14.8 H Sodium Level 142 Valproic Acid (Depakene) Level 369 *H White Blood Count 14.9 H Medications Medications Current Medications Labetalol HCl (Labetalol) 10 mg Q6H PRN IV sbp > 160 Last administered on 18:33; Admin Dose 10 MG; Start 07/28/16 at 00:30 Acetaminophen (Tylenol Supp) 650 mg Q6H PRN [place] PAIN AND OR ELEVATED TEMP Last administered on 07/31/16 17:30; Admin Dose 650 MG; Start 07/28/16 at 08:30 Miscellaneous Information 1 ea NOTE XX ; Start 07/28/16 at 09:00 Glucose (Glutose) 15 gm Q15M PRN PO DECREASED GLUCOSE; Start 07/28/16 at 09:00 Glucose (Glutose) 22.5 gm Q15M PRN PO DECREASED GLUCOSE; Start 07/28/16 at 09: 00 Dextrose (D50w Syringe) 25 ml Q15M PRN IV DECREASED GLUCOSE; Start 07/28/16 at 09:00 Dextrose (D50w Syringe) 50 ml Q15M PRN IV DECREASED GLUCOSE; Start 07/28/16 at 09:00 Glucagon (Glucagen) 1 mg Q15M PRN IM DECREASED GLUCOSE; Start 07/28/16 at 09:00 Glucose (Glutose) 15 gm Q15M PRN BUCCAL DECREASED GLUCOSE; Start 07/28/16 at 09 :00 IV Flush (NS 10 ml) 10 ml PRN PRN IV IV PROTOCOL; Start 07/29/16 at 17:00 Morphine Sulfate (morphine) 2 mg Q4 PRN IV PAIN Last administered on 08/12/16 23:38; Admin Dose 2 MG; Start 07/31/16 at 12:00 Lorazepam (Ativan) 1 mg Q1H PRN IV SEIZURES Last administered on 08/11/16 12:25 ; Admin Dose 1 MG; Start 08/02/16 at 02:00 Acetaminophen (Tylenol Liquid) 650 mg Q4H PRN NGT PAIN AND OR ELEVATED TEMP Last administered on 08/26/16 18:53; Admin Dose 650 MG; Start 08/03/16 at 00:00 Calcium Acetate (Phoslo) 667 mg Q6 NGT Last administered on 08/27/16 05:27; Admin Dose 667 MG; Start 08/05/16 at 08:30 Hydralazine HCl 10 mg 10 mg Q4H PRN IV ELEVATED SYSTOLIC BP Last administered on 08/25/16 06:05; Admin Dose 10 MG; Start 08/06/16 at 01:30 Levetiracetam/ Sodium Chloride (Keppra Iv/NS) 107.5 ml @ 420 mls/hr DAILY IVPB Last administered on 08/27/16 10:18; Admin Dose 420 MLS/HR; Start 08/08/16 at 09:00 Eye Lubricant (Artificial Tears Oph) 2 drop TID BOTH EYES Last administered on 08/27/16 10:13; Admin Dose 2 DROP; Start 08/13/16 at 09:00 Metoprolol Tartrate (Lopressor) 50 mg BID NGT Last administered on 08/26/16 21 :42; Admin Dose 50 MG; Start 08/15/16 at 21:00 Amiodarone HCl (Cordarone) 200 mg DAILY NGT Last administered on 08/26/16 09: 37; Admin Dose 200 MG; Start 08/18/16 at 09:00 Lansoprazole (Prevacid) 30 mg DAILY@06 NGT Last administered on 08/27/16 05:27 ; Admin Dose 30 MG; Start 08/18/16 at 06:00 Insulin Aspart (Novolog Insulin Pen) NOVOLOG *MODERATE* ALGORI... Q6 SC Last administered on 08/26/16 18:30; Admin Dose 2 UNIT; Start 08/19/16 at 00:00 Zinc Oxide (Desitin) 1 applic PRN PRN TOP RASH Last administered on 08/26/16 23:44; Admin Dose 1 APPLIC; Start 08/21/16 at 17:30 Sodium Bicarbonate (Sodium Bicarbonate Tab) 650 mg Q8 NGT Last administered on 08/27/16 05:27; Admin Dose 650 MG; Start 08/22/16 at 22:00 Insulin Human NPH (Humulin N) 44 unit ,,17 SC Last administered on 10:20; Admin Dose 44 UNIT; Start 08/23/16 at 17:00 Warfarin Sodium (Coumadin) 5 mg DAILY@17 GTB ; Start 08/27/16 at 17:00 AMOR RODRIGUES Aug 27, 2016 11:57
--- NOTE | 2016-08-27 13:40 | PN ---
Date/Time of Note Date/Time of Note DATE: 08/27/16 TIME: 13:39 Assessment/Plan VTE Prophylaxis VTE Prophylaxis Intervention: SCD's Lines/Catheters IV Catheter Type (from Nrs): PICC Line Central line still needed: Yes Urinary Cath still in place: No Assessment/Plan Chief Complaint/Hosp Course Unfortunate 56-year-old gentleman who came in after suffering respiratory arrest which induced cardiac arrest. He has a significant anoxic encephalopathy post event and has not shown significant improvement. He is ventilator dependent and feeding tube dependent. Premorbid he had end-stage renal disease and was dialysis dependent. He is on continuous tube feedings. In the recent past he has had some changes in the way his temperature is been spiking although he has been having fevers for more some of his hospitalization which were likely central fevers Problems: (1) Type 2 diabetes mellitus with hypertension and end stage renal disease on dialysis Status: Chronic Comment: Diabetes well controlled on current regimen. (2) Anoxic encephalopathy Status: Acute Comment: No meaningful hope of recovery for meaningful quality of life Subjective 24 Hr Interval Summary Subjective hx not possible: pt non-verbal Exam/Review of Systems Vital Signs Vitals Vital Signs Date Time Temp Pulse Resp B/P Pulse Ox O2 Delivery O2 Flow Rate FiO2 08/27/16 12:46 102 08/27/16 12:36 23 96 30 08/27/16 12:11 98.4 126/80 Intake and Output 08/26/16 08/26/16 08/27/16 15:00 23:00 07:00 Intake Total 157.5 ml 730 ml 575.0 ml Output Total 0 ml Balance 157.5 ml 730 ml 575.0 ml Exam No changes Constitutional: alert, oriented Respiratory: clear to auscultation, normal air movement Cardiovascular: nl pulses, regular rate and rhythm Results Result Diagram: 08/27/16 0610 08/27/16 0610 Results 24 hrs Laboratory Tests Test 08/26/16 18:13 08/26/16 21:41 08/26/16 23:46 08/27/16 01:41 Bedside Glucose 164 144 118 108 Test 08/27/16 05:28 08/27/16 06:10 08/27/16 12:43 Bedside Glucose 117 169 Anion Gap 28 H Band Neutrophils % 14.0 H Basophils # 0.1 Basophils % 1.0 Blood Urea Nitrogen 107 #H Calcium Level 8.2 L Carbon Dioxide Level 23 Chloride Level 96 L Creatinine 5.93 H Eosinophils # 0.3 Eosinophils % 2.0 Glucose Level 109 # Hematocrit 24.5 L Hemoglobin 7.7 L INR International Normalized Ratio 2.27 Lymphocytes # 1.3 Lymphocytes % 9.0 L Magnesium Level 2.7 H Mean Corpuscular Hemoglobin 30.8 Mean Corpuscular Hemoglobin Concent 31.4 L Mean Corpuscular Volume 98.0 Mean Platelet Volume 10.5 H Metamyelocytes # 0.3 Metamyelocytes % 2.0 H Monocytes # 1.2 H Monocytes % 8.0 Myelocytes # 0.4 Myelocytes % 3.0 H Neutrophils # 9.1 H Neutrophils % 61.0 Nucleated Red Blood Cells # Nucleated Red Blood Cells % Phosphorus Level 6.2 H Platelet Count 235 Potassium Level 4.8 Prothrombin Time 25.3 #H Prothrombin Time Ratio 2.0 Red Blood Count 2.50 L Red Cell Distribution Width 14.8 H Sodium Level 142 Valproic Acid (Depakene) Level 369 *H White Blood Count 14.9 H Medications Medications Current Medications Labetalol HCl (Labetalol) 10 mg Q6H PRN IV sbp > 160 Last administered on 18:33; Admin Dose 10 MG; Start 07/28/16 at 00:30 Acetaminophen (Tylenol Supp) 650 mg Q6H PRN [place] PAIN AND OR ELEVATED TEMP Last administered on 07/31/16 17:30; Admin Dose 650 MG; Start 07/28/16 at 08:30 Miscellaneous Information 1 ea NOTE XX ; Start 07/28/16 at 09:00 Glucose (Glutose) 15 gm Q15M PRN PO DECREASED GLUCOSE; Start 07/28/16 at 09:00 Glucose (Glutose) 22.5 gm Q15M PRN PO DECREASED GLUCOSE; Start 07/28/16 at 09: 00 Dextrose (D50w Syringe) 25 ml Q15M PRN IV DECREASED GLUCOSE; Start 07/28/16 at 09:00 Dextrose (D50w Syringe) 50 ml Q15M PRN IV DECREASED GLUCOSE; Start 07/28/16 at 09:00 Glucagon (Glucagen) 1 mg Q15M PRN IM DECREASED GLUCOSE; Start 07/28/16 at 09:00 Glucose (Glutose) 15 gm Q15M PRN BUCCAL DECREASED GLUCOSE; Start 07/28/16 at 09 :00 IV Flush (NS 10 ml) 10 ml PRN PRN IV IV PROTOCOL; Start 07/29/16 at 17:00 Morphine Sulfate (morphine) 2 mg Q4 PRN IV PAIN Last administered on 08/12/16 23:38; Admin Dose 2 MG; Start 07/31/16 at 12:00 Lorazepam (Ativan) 1 mg Q1H PRN IV SEIZURES Last administered on 08/11/16 12:25 ; Admin Dose 1 MG; Start 08/02/16 at 02:00 Acetaminophen (Tylenol Liquid) 650 mg Q4H PRN NGT PAIN AND OR ELEVATED TEMP Last administered on 08/26/16 18:53; Admin Dose 650 MG; Start 08/03/16 at 00:00 Calcium Acetate (Phoslo) 667 mg Q6 NGT Last administered on 08/27/16 12:50; Admin Dose 667 MG; Start 08/05/16 at 08:30 Hydralazine HCl 10 mg 10 mg Q4H PRN IV ELEVATED SYSTOLIC BP Last administered on 08/25/16 06:05; Admin Dose 10 MG; Start 08/06/16 at 01:30 Levetiracetam/ Sodium Chloride (Keppra Iv/NS) 107.5 ml @ 420 mls/hr DAILY IVPB Last administered on 08/27/16 10:18; Admin Dose 420 MLS/HR; Start 08/08/16 at 09:00 Eye Lubricant (Artificial Tears Oph) 2 drop TID BOTH EYES Last administered on 08/27/16 12:52; Admin Dose 2 DROP; Start 08/13/16 at 09:00 Metoprolol Tartrate (Lopressor) 50 mg BID NGT Last administered on 08/26/16 21 :42; Admin Dose 50 MG; Start 08/15/16 at 21:00 Amiodarone HCl (Cordarone) 200 mg DAILY NGT Last administered on 08/26/16 09: 37; Admin Dose 200 MG; Start 08/18/16 at 09:00 Lansoprazole (Prevacid) 30 mg DAILY@06 NGT Last administered on 08/27/16 05:27 ; Admin Dose 30 MG; Start 08/18/16 at 06:00 Insulin Aspart (Novolog Insulin Pen) NOVOLOG *MODERATE* ALGORI... Q6 SC Last administered on 08/27/16 12:51; Admin Dose 2 UNIT; Start 08/19/16 at 00:00 Zinc Oxide (Desitin) 1 applic PRN PRN TOP RASH Last administered on 08/26/16 23:44; Admin Dose 1 APPLIC; Start 08/21/16 at 17:30 Sodium Bicarbonate (Sodium Bicarbonate Tab) 650 mg Q8 NGT Last administered on 08/27/16 05:27; Admin Dose 650 MG; Start 08/22/16 at 22:00 Insulin Human NPH (Humulin N) 44 unit ,, SC Last administered on 10:20; Admin Dose 44 UNIT; Start 08/23/16 at 17:00 Warfarin Sodium (Coumadin) 5 mg DAILY@17 GTB ; Start 08/27/16 at 17:00 LOPEZ LOW MD Aug 27, 2016 13:40
[2016-08-27] MEDS ORDERED: VITAMIN A & D 5 GM OINT PACKET TOP ONE (15:41)
[2016-08-27] MEDS: ACETAMINOPHEN 650MG/20.3ML CUP NGT PRN ×2 (18:43→22:45)
[2016-08-27] MEDS: WARFARIN 5 MG TAB GTB SCH (18:53)
[2016-08-27] MEDS: hydrALAzine 20 MG INJ IV PRN (22:47)
[2016-08-28] VITALS (24 sets, daily range): BP systolic 108–159; BP diastolic 59–88; PULSE 83–108; RESP 16–20
[2016-08-28] MEDS: NPH, HUMAN INSULIN ISOPHANE 3ML VIAL SC SCH ×3 (01:00→18:45)
[2016-08-28] MEDS: ALBUTEROL HFA 8 GM INHALER INH SCH ×6 (01:20→21:36)
[2016-08-28] MEDS: IPRATROPIUM (HFA) 12.9 GM INHALER INH SCH ×6 (01:20→21:36)
[2016-08-28] MEDS: INSULIN ASPART [NOVOLOG] 3 ML PEN SC SCH ×4 (06:00→18:00)
[2016-08-28] MEDS: LANSOPRAZOLE 30 MG CAP NGT SCH (06:26)
[2016-08-28] MEDS: CALCIUM ACETATE 667 MG CAP NGT SCH ×4 (06:26→18:44)
[2016-08-28] MEDS: ZINC OXIDE 13% (DESITIN) CREAM 2 OZ TUBE TOP PRN (06:26)
[2016-08-28] MEDS: NA BICARBONATE 650 MG TAB NGT SCH ×3 (06:26→21:23)
[2016-08-28] MEDS: hydrALAzine 20 MG INJ IV PRN (06:28)
[2016-08-28 07:23] LABS: ADD SCAN DIFF NO
[2016-08-28 07:29] LABS: ABNORMAL IP MESSAGE 1; BASOPHIL # 0.1 10^3/ul (0.0-0.1); BASOPHILS % 0.6 % (0.0-2.0); EOSINOPHILS # 0.5 10^3/ul (0.0-0.5); EOSINOPHILS % 3.1 % (0.0-7.0); HEMATOCRIT 26.5 % (42.0-52.0); HEMOGLOBIN 8.3 g/dl (14.0-18.0); LYMPHOCYTES % 13.5 % (15.0-51.0); MEAN CORPUSCULAR HEMOGLOBIN 30.9 pg (29.0-33.0); MEAN CORPUSCULAR HGB CONC 31.3 g/dl (32.0-37.0); MEAN CORPUSCULAR VOLUME 98.5 fl (82.0-101.0); MEAN PLATELET VOLUME 10.5 fl (7.4-10.4); MONOCYTE # 1.5 10^3/ul (0.3-0.9); MONOCYTES % 9.9 % (0.0-11.0); NEUTROPHIL # 9.4 10^3/ul (1.6-7.5); NEUTROPHILS % 64.4 % (39.0-77.0); PLATELET COUNT 257 10^3/UL (140-415); RED BLOOD COUNT 2.69 10^6/ul (4.70-6.10); WHITE BLOOD COUNT 14.7 10^3/ul (4.8-10.8)
[2016-08-28 07:44] LABS: INR 2.35
[2016-08-28 07:45] LABS: MAGNESIUM 2.7 mg/dl (1.7-2.5); PHOSPHORUS 5.4 mg/dl (2.5-4.9)
[2016-08-28 07:46] LABS: POTASSIUM 4.6 mmol/L (3.5-5.1)
[2016-08-28 07:50] LABS: CALCIUM 8.8 mg/dl (8.4-10.2)
[2016-08-28 07:59] LABS: CREATININE 5.4 mg/dl (0.61-1.24)
--- NOTE | 2016-08-28 08:05 | CONS ---
Date/Time of Note Date/Time of Note DATE: 08/28/16 TIME: 08:03 Assessment/Plan Assessment/Plan Problems: (1) Cardiac arrest Status: Acute Comment: no change... non responsive on the vent (2) ESRD (end stage renal disease) on dialysis Comment: prnicess HD yesterday... for again tomorrow (3) Respiratory arrest before cardiac arrest Status: Acute Comment: trach/vent/PEG in place (4) Anoxic encephalopathy Status: Acute Comment: non responsive, unchanged Consultation Date/Type/Reason Admit Date/Time Jul 27, 2016 at 23:29 Initial Consult Date 07/28/16 Type of Consultation: neph Referring Provider: BARNEY MCKEE 24 HR Interval Summary Subjective hx not possible: pt non-verbal Exam/Review of Systems Vital Signs Vitals Vital Signs Date Time Temp Pulse Resp B/P Pulse Ox O2 Delivery O2 Flow Rate FiO2 08/28/16 07:32 99.4 102 17 148/67 100 08/28/16 01:27 30 Intake and Output 08/27/16 08/27/16 08/28/16 15:00 23:00 07:00 Intake Total 400 ml 450 ml Output Total 2400 ml 0 ml Balance -2000 ml 450 ml Exam Constitutional: non-verbal Head: atraumatic, normocephalic Cardiovascular: regular rate and rhythm Extremities: normal pulses Results Result Diagram: 08/28/16 0555 08/28/16 0555 Results 24 hrs Laboratory Tests Test 08/27/16 12:43 08/27/16 18:55 08/28/16 02:26 08/28/16 05:55 Bedside Glucose 169 182 130 Anion Gap 22 H Basophils # 0.1 Basophils % 0.6 Blood Urea Nitrogen 96 H Calcium Level 8.8 Carbon Dioxide Level 30 Chloride Level 92 L Creatinine 5.40 H Eosinophils # 0.5 Eosinophils % 3.1 Glucose Level 128 Hematocrit 26.5 L Hemoglobin 8.3 L INR International Normalized Ratio 2.35 Lymphocytes # 2.0 Lymphocytes % 13.5 L Magnesium Level 2.7 H Mean Corpuscular Hemoglobin 30.9 Mean Corpuscular Hemoglobin Concent 31.3 L Mean Corpuscular Volume 98.5 Mean Platelet Volume 10.5 H Monocytes # 1.5 H Monocytes % 9.9 Neutrophils # 9.4 H Neutrophils % 64.4 Nucleated Red Blood Cells # 0.0 Nucleated Red Blood Cells % 0.0 Phosphorus Level 5.4 H Platelet Count 257 Potassium Level 4.6 Prothrombin Time 26.0 H Prothrombin Time Ratio 2.0 Red Blood Count 2.69 L Red Cell Distribution Width 15.0 H Sodium Level 139 White Blood Count 14.7 H Test 08/28/16 06:19 Bedside Glucose 127 Medications Medications Current Medications Labetalol HCl (Labetalol) 10 mg Q6H PRN IV sbp > 160 Last administered on 18:33; Admin Dose 10 MG; Start 07/28/16 at 00:30 Acetaminophen (Tylenol Supp) 650 mg Q6H PRN [place] PAIN AND OR ELEVATED TEMP Last administered on 07/31/16 17:30; Admin Dose 650 MG; Start 07/28/16 at 08:30 Miscellaneous Information 1 ea NOTE XX ; Start 07/28/16 at 09:00 Glucose (Glutose) 15 gm Q15M PRN PO DECREASED GLUCOSE; Start 07/28/16 at 09:00 Glucose (Glutose) 22.5 gm Q15M PRN PO DECREASED GLUCOSE; Start 07/28/16 at 09: 00 Dextrose (D50w Syringe) 25 ml Q15M PRN IV DECREASED GLUCOSE; Start 07/28/16 at 09:00 Dextrose (D50w Syringe) 50 ml Q15M PRN IV DECREASED GLUCOSE; Start 07/28/16 at 09:00 Glucagon (Glucagen) 1 mg Q15M PRN IM DECREASED GLUCOSE; Start 07/28/16 at 09:00 Glucose (Glutose) 15 gm Q15M PRN BUCCAL DECREASED GLUCOSE; Start 07/28/16 at 09 :00 IV Flush (NS 10 ml) 10 ml PRN PRN IV IV PROTOCOL; Start 07/29/16 at 17:00 Morphine Sulfate (morphine) 2 mg Q4 PRN IV PAIN Last administered on 08/12/16 23:38; Admin Dose 2 MG; Start 07/31/16 at 12:00 Lorazepam (Ativan) 1 mg Q1H PRN IV SEIZURES Last administered on 08/11/16 12:25 ; Admin Dose 1 MG; Start 08/02/16 at 02:00 Acetaminophen (Tylenol Liquid) 650 mg Q4H PRN NGT PAIN AND OR ELEVATED TEMP Last administered on 08/27/16 22:45; Admin Dose 650 MG; Start 08/03/16 at 00:00 Calcium Acetate (Phoslo) 667 mg Q6 NGT Last administered on 08/28/16 06:26; Admin Dose 667 MG; Start 08/05/16 at 08:30 Hydralazine HCl 10 mg 10 mg Q4H PRN IV ELEVATED SYSTOLIC BP Last administered on 08/28/16 06:28; Admin Dose 10 MG; Start 08/06/16 at 01:30 Levetiracetam/ Sodium Chloride (Keppra Iv/NS) 107.5 ml @ 420 mls/hr DAILY IVPB Last administered on 08/27/16 10:18; Admin Dose 420 MLS/HR; Start 08/08/16 at 09:00 Eye Lubricant (Artificial Tears Oph) 2 drop TID BOTH EYES Last administered on 08/27/16 21:00; Admin Dose 2 DROP; Start 08/13/16 at 09:00 Metoprolol Tartrate (Lopressor) 50 mg BID NGT Last administered on 08/27/16 21 :00; Admin Dose 50 MG; Start 08/15/16 at 21:00 Amiodarone HCl (Cordarone) 200 mg DAILY NGT Last administered on 08/26/16 09: 37; Admin Dose 200 MG; Start 08/18/16 at 09:00 Lansoprazole (Prevacid) 30 mg DAILY@06 NGT Last administered on 08/28/16 06:26 ; Admin Dose 30 MG; Start 08/18/16 at 06:00 Insulin Aspart (Novolog Insulin Pen) NOVOLOG *MODERATE* ALGORI... Q6 SC Last administered on 08/27/16 18:56; Admin Dose 4 UNIT; Start 08/19/16 at 00:00 Zinc Oxide (Desitin) 1 applic PRN PRN TOP RASH Last administered on 08/28/16 06:26; Admin Dose 1 APPLIC; Start 08/21/16 at 17:30 Sodium Bicarbonate (Sodium Bicarbonate Tab) 650 mg Q8 NGT Last administered on 08/28/16 06:26; Admin Dose 650 MG; Start 08/22/16 at 22:00 Insulin Human NPH (Humulin N) 44 unit , SC Last administered on 18:49; Admin Dose 44 UNIT; Start 08/23/16 at 17:00 Warfarin Sodium (Coumadin) 5 mg DAILY@17 GTB Last administered on 08/27/16t 18: 53; Admin Dose 5 MG; Start 08/27/16 at 17:00 CAROLINE DEL CID MD Aug 28, 2016 08:04
--- NOTE | 2016-08-28 08:35 | CONS ---
Date/Time of Note Date/Time of Note DATE: 08/28/16 TIME: 08:34 Assessment/Plan Assessment/Plan Chief Complaint/Hosp Course Unfortunate 56-year-old gentleman who came in after suffering respiratory arrest which induced cardiac arrest. He has a significant anoxic encephalopathy post event and has not shown significant improvement. He is ventilator dependent and feeding tube dependent. Premorbid he had end-stage renal disease and was dialysis dependent. He is on continuous tube feedings. In the recent past he has had some changes in the way his temperature is been spiking although he has been having fevers for more some of his hospitalization which were likely central fevers Problems: (1) Type 2 diabetes mellitus with hypertension and end stage renal disease on dialysis Status: Chronic Comment: Remains very well controlled on the current regimen without adjustments. Given his stability I am going to sign off the case will be available on as-needed basis. Please feel free to call Consultation Date/Type/Reason Admit Date/Time Jul 27, 2016 at 23:29 Initial Consult Date 08/17/16 Type of Consultation: Endocrinology Reason for Consultation Diabetes mellitus type 2 Referring Provider: BARNEY MCKEE 24 HR Interval Summary Subjective hx not possible: pt non-verbal Exam/Review of Systems Vital Signs Vitals Vital Signs Date Time Temp Pulse Resp B/P Pulse Ox O2 Delivery O2 Flow Rate FiO2 08/28/16 07:32 99.4 102 17 148/67 100 08/28/16 01:27 30 Intake and Output 08/27/16 08/27/16 08/28/16 15:00 23:00 07:00 Intake Total 400 ml 450 ml Output Total 2400 ml 0 ml Balance -2000 ml 450 ml Exam No changes Results Result Diagram: 08/28/16 0555 08/28/16 0555 Results 24 hrs Laboratory Tests Test 08/27/16 12:43 08/27/16 18:55 08/28/16 02:26 08/28/16 05:55 Bedside Glucose 169 182 130 Anion Gap 22 H Basophils # 0.1 Basophils % 0.6 Blood Urea Nitrogen 96 H Calcium Level 8.8 Carbon Dioxide Level 30 Chloride Level 92 L Creatinine 5.40 H Eosinophils # 0.5 Eosinophils % 3.1 Glucose Level 128 Hematocrit 26.5 L Hemoglobin 8.3 L INR International Normalized Ratio 2.35 Lymphocytes # 2.0 Lymphocytes % 13.5 L Magnesium Level 2.7 H Mean Corpuscular Hemoglobin 30.9 Mean Corpuscular Hemoglobin Concent 31.3 L Mean Corpuscular Volume 98.5 Mean Platelet Volume 10.5 H Monocytes # 1.5 H Monocytes % 9.9 Neutrophils # 9.4 H Neutrophils % 64.4 Nucleated Red Blood Cells # 0.0 Nucleated Red Blood Cells % 0.0 Phosphorus Level 5.4 H Platelet Count 257 Potassium Level 4.6 Prothrombin Time 26.0 H Prothrombin Time Ratio 2.0 Red Blood Count 2.69 L Red Cell Distribution Width 15.0 H Sodium Level 139 White Blood Count 14.7 H Test 08/28/16 06:19 Bedside Glucose 127 Medications Medications Current Medications Labetalol HCl (Labetalol) 10 mg Q6H PRN IV sbp > 160 Last administered on 18:33; Admin Dose 10 MG; Start 07/28/16 at 00:30 Acetaminophen (Tylenol Supp) 650 mg Q6H PRN [place] PAIN AND OR ELEVATED TEMP Last administered on 07/31/16 17:30; Admin Dose 650 MG; Start 07/28/16 at 08:30 Miscellaneous Information 1 ea NOTE XX ; Start 07/28/16 at 09:00 Glucose (Glutose) 15 gm Q15M PRN PO DECREASED GLUCOSE; Start 07/28/16 at 09:00 Glucose (Glutose) 22.5 gm Q15M PRN PO DECREASED GLUCOSE; Start 07/28/16 at 09: 00 Dextrose (D50w Syringe) 25 ml Q15M PRN IV DECREASED GLUCOSE; Start 07/28/16 at 09:00 Dextrose (D50w Syringe) 50 ml Q15M PRN IV DECREASED GLUCOSE; Start 07/28/16 at 09:00 Glucagon (Glucagen) 1 mg Q15M PRN IM DECREASED GLUCOSE; Start 07/28/16 at 09:00 Glucose (Glutose) 15 gm Q15M PRN BUCCAL DECREASED GLUCOSE; Start 07/28/16 at 09 :00 IV Flush (NS 10 ml) 10 ml PRN PRN IV IV PROTOCOL; Start 07/29/16 at 17:00 Morphine Sulfate (morphine) 2 mg Q4 PRN IV PAIN Last administered on 08/12/16 23:38; Admin Dose 2 MG; Start 07/31/16 at 12:00 Lorazepam (Ativan) 1 mg Q1H PRN IV SEIZURES Last administered on 08/11/16 12:25 ; Admin Dose 1 MG; Start 08/02/16 at 02:00 Acetaminophen (Tylenol Liquid) 650 mg Q4H PRN NGT PAIN AND OR ELEVATED TEMP Last administered on 08/27/16 22:45; Admin Dose 650 MG; Start 08/03/16 at 00:00 Calcium Acetate (Phoslo) 667 mg Q6 NGT Last administered on 08/28/16 06:26; Admin Dose 667 MG; Start 08/05/16 at 08:30 Hydralazine HCl 10 mg 10 mg Q4H PRN IV ELEVATED SYSTOLIC BP Last administered on 08/28/16 06:28; Admin Dose 10 MG; Start 08/06/16 at 01:30 Levetiracetam/ Sodium Chloride (Keppra Iv/NS) 107.5 ml @ 420 mls/hr DAILY IVPB Last administered on 08/27/16 10:18; Admin Dose 420 MLS/HR; Start 08/08/16 at 09:00 Eye Lubricant (Artificial Tears Oph) 2 drop TID BOTH EYES Last administered on 08/27/16 21:00; Admin Dose 2 DROP; Start 08/13/16 at 09:00 Metoprolol Tartrate (Lopressor) 50 mg BID NGT Last administered on 08/27/16 21 :00; Admin Dose 50 MG; Start 08/15/16 at 21:00 Amiodarone HCl (Cordarone) 200 mg DAILY NGT Last administered on 08/26/16 09: 37; Admin Dose 200 MG; Start 08/18/16 at 09:00 Lansoprazole (Prevacid) 30 mg DAILY@06 NGT Last administered on 08/28/16 06:26 ; Admin Dose 30 MG; Start 08/18/16 at 06:00 Insulin Aspart (Novolog Insulin Pen) NOVOLOG *MODERATE* ALGORI... Q6 SC Last administered on 08/27/16 18:56; Admin Dose 4 UNIT; Start 08/19/16 at 00:00 Zinc Oxide (Desitin) 1 applic PRN PRN TOP RASH Last administered on 08/28/16 06:26; Admin Dose 1 APPLIC; Start 08/21/16 at 17:30 Sodium Bicarbonate (Sodium Bicarbonate Tab) 650 mg Q8 NGT Last administered on 08/28/16 06:26; Admin Dose 650 MG; Start 08/22/16 at 22:00 Insulin Human NPH (Humulin N) 44 unit ,, SC Last administered on 18:49; Admin Dose 44 UNIT; Start 08/23/16 at 17:00 Warfarin Sodium (Coumadin) 5 mg DAILY@17 GTB Last administered on 08/27/16 18: 53; Admin Dose 5 MG; Start 08/27/16 at 17:00 LOPEZ LOW MD Aug 28, 2016 08:35
[2016-08-28] MEDS: BUDESONIDE (NEB) 0.5MG/2ML AMP HHN SCH ×2 (09:33→20:01)
[2016-08-28] MEDS: ARFORMOTEROL TARTRATE 15MCG/2 ML AMP NEB SCH ×2 (09:48→20:01)
[2016-08-28] MEDS: ARTIFICIAL TEARS 15 ML OPH BOTH EYES SCH ×3 (09:53→22:48)
[2016-08-28] MEDS: LEVETIRACETAM IV 750 MG in SOD CHLORIDE 0.9% 100 ML IVPB SCH (09:53)
[2016-08-28] MEDS: AMIODARONE 200 MG TAB NGT SCH (09:54)
[2016-08-28] MEDS: METOPROLOL 50 MG TAB NGT SCH ×2 (09:54→21:26)
[2016-08-28] MEDS ORDERED: VITAMIN A & D 5 GM OINT PACKET TOP ONE (10:00)
--- NOTE | 2016-08-28 12:18 | PN ---
Date/Time of Note Date/Time of Note DATE: 08/28/16 TIME: 12:17 Assessment/Plan VTE Prophylaxis VTE Prophylaxis Intervention: other (Warfarin) Lines/Catheters IV Catheter Type (from [facility]): PICC Line Central line still needed: Yes Urinary Cath still in place: No Assessment/Plan Chief Complaint/Hosp Course 1. Status post cardiac arrest secondary to PEA. Status post trach and PEG. Family hesitant on changing the code status. 2. Acute respiratory failure, hypoxic. Continue ventilator management as per pulmonary. Continue inhaled bronchodilators. 3. End-stage renal disease on hemodialysis. Continue hemodialysis as per nephrology. 4. Status post systemic inflammatory response syndrome. Status post antibiotics. 5. Paroxysmal atrial fibrillation with rapid ventricular response. Currently in sinus rhythm. On amiodarone and metoprolol. On warfarin for stroke prophylaxis. 6. Type 2 diabetes mellitus. Hemoglobin A1c 7.3. Continue insulin sliding scale along with Lantus insulin. 7. Essential hypertension. Continue antihypertensives. 8. Seizure disorder. Most probably secondary to anoxia. Continue anticonvulsants. 9. Possible underlying anoxic encephalopathy. Brain MRI showing a single focus of restricted diffusion in the left superior frontal lobe at the level of the precentral gyrus compatible with acute/subacute ischemic infarct. 10. Normocytic normochromic anemia, most probably anemia of chronic kidney disease. Will monitor H and H closely. 11. Fluid, electrolytes and nutrition. Continue G-tube feedings. 12. Deep venous thrombosis prophylaxis. On warfarin. 13. Gastrointestinal prophylaxis. Proton pump inhibitors. PLAN: Continue inpatient care. The patient's fevers could be neurogenic in origin. All the cultures have been negative. Hold valproic acid because of high serum levels. Await placement to a assisted facility. The case was discussed with Dr. Nguyen. The brain MRI results were explained to the patient's daughter Maeve Espinal over the phone. Problems: Subjective 24 Hr Interval Summary Free Text/Dictation No changes in status. Exam/Review of Systems Vital Signs Vitals Vital Signs Date Time Temp Pulse Resp B/P Pulse Ox O2 Delivery O2 Flow Rate FiO2 08/28/16 11:00 86 16 96 30 08/28/16 07:32 99.4 148/67 Intake and Output 08/27/16 08/27/16 08/28/16 15:00 23:00 07:00 Intake Total 400 ml 450 ml Output Total 2400 ml 0 ml Balance -2000 ml 450 ml Exam GENERAL: This is an obese male patient lying in bed with tracheostomy to vent, in no apparent distress. HEENT: Head normocephalic and atraumatic. Eyes: Anicteric sclerae. Conjunctivae clear. ENT: Nasal septum Oral mucosa is dry. NECK: Supple. Tracheostomy midline. RESPIRATORY: Bilateral diminished breath sounds. Tracheostomy connected to mechanical ventilator. On AC mode ventilation. Diminished breath sounds bilaterally. CARDIAC: Regular rate and rhythm. No obvious murmurs heard. ABDOMEN: Soft, nontender and nondistended. Left upper quadrant G-tube in place. GENITOURINARY: Deferred. EXTREMITIES: No cyanosis, no clubbing, no edema. Peripheral pulses are palpable. NEUROLOGIC: The patient is obtunded. Opens eyes. Does not follow any commands. Results Result Diagram: 08/28/16 0555 08/28/16 0555 Results 24 hrs Laboratory Tests Test 08/27/16 12:43 08/27/16 18:55 08/28/16 02:26 08/28/16 05:55 Bedside Glucose 169 182 130 Anion Gap 22 H Basophils # 0.1 Basophils % 0.6 Blood Urea Nitrogen 96 H Calcium Level 8.8 Carbon Dioxide Level 30 Chloride Level 92 L Creatinine 5.40 H Eosinophils # 0.5 Eosinophils % 3.1 Glucose Level 128 Hematocrit 26.5 L Hemoglobin 8.3 L INR International Normalized Ratio 2.35 Lymphocytes # 2.0 Lymphocytes % 13.5 L Magnesium Level 2.7 H Mean Corpuscular Hemoglobin 30.9 Mean Corpuscular Hemoglobin Concent 31.3 L Mean Corpuscular Volume 98.5 Mean Platelet Volume 10.5 H Monocytes # 1.5 H Monocytes % 9.9 Neutrophils # 9.4 H Neutrophils % 64.4 Nucleated Red Blood Cells # 0.0 Nucleated Red Blood Cells % 0.0 Phosphorus Level 5.4 H Platelet Count 257 Potassium Level 4.6 Prothrombin Time 26.0 H Prothrombin Time Ratio 2.0 Red Blood Count 2.69 L Red Cell Distribution Width 15.0 H Sodium Level 139 White Blood Count 14.7 H Test 08/28/16 06:19 Bedside Glucose 127 Medications Medications Current Medications Labetalol HCl (Labetalol) 10 mg Q6H PRN IV sbp > 160 Last administered on 18:33; Admin Dose 10 MG; Start 07/28/16 at 00:30 Acetaminophen (Tylenol Supp) 650 mg Q6H PRN [place] PAIN AND OR ELEVATED TEMP Last administered on 07/31/16 17:30; Admin Dose 650 MG; Start 07/28/16 at 08:30 Miscellaneous Information 1 ea NOTE XX ; Start 07/28/16 at 09:00 Glucose (Glutose) 15 gm Q15M PRN PO DECREASED GLUCOSE; Start 07/28/16 at 09:00 Glucose (Glutose) 22.5 gm Q15M PRN PO DECREASED GLUCOSE; Start 07/28/16 at 09: 00 Dextrose (D50w Syringe) 25 ml Q15M PRN IV DECREASED GLUCOSE; Start 07/28/16 at 09:00 Dextrose (D50w Syringe) 50 ml Q15M PRN IV DECREASED GLUCOSE; Start 07/28/16 at 09:00 Glucagon (Glucagen) 1 mg Q15M PRN IM DECREASED GLUCOSE; Start 07/28/16 at 09:00 Glucose (Glutose) 15 gm Q15M PRN BUCCAL DECREASED GLUCOSE; Start 07/28/16 at 09 :00 IV Flush (NS 10 ml) 10 ml PRN PRN IV IV PROTOCOL; Start 07/29/16 at 17:00 Morphine Sulfate (morphine) 2 mg Q4 PRN IV PAIN Last administered on 08/12/16 23:38; Admin Dose 2 MG; Start 07/31/16 at 12:00 Lorazepam (Ativan) 1 mg Q1H PRN IV SEIZURES Last administered on 08/11/16 12:25 ; Admin Dose 1 MG; Start 08/02/16 at 02:00 Acetaminophen (Tylenol Liquid) 650 mg Q4H PRN NGT PAIN AND OR ELEVATED TEMP Last administered on 08/27/16 22:45; Admin Dose 650 MG; Start 08/03/16 at 00:00 Calcium Acetate (Phoslo) 667 mg Q6 NGT Last administered on 08/28/16 06:26; Admin Dose 667 MG; Start 08/05/16 at 08:30 Hydralazine HCl 10 mg 10 mg Q4H PRN IV ELEVATED SYSTOLIC BP Last administered on 08/28/16 06:28; Admin Dose 10 MG; Start 08/06/16 at 01:30 Levetiracetam/ Sodium Chloride (Keppra Iv/NS) 107.5 ml @ 420 mls/hr DAILY IVPB Last administered on 08/28/16 09:53; Admin Dose 420 MLS/HR; Start 08/08/16 at 09:00 Eye Lubricant (Artificial Tears Oph) 2 drop TID BOTH EYES Last administered on 08/28/16 09:53; Admin Dose 2 DROP; Start 08/13/16 at 09:00 Metoprolol Tartrate (Lopressor) 50 mg BID NGT Last administered on 08/28/16 09 :54; Admin Dose 50 MG; Start 08/15/16 at 21:00 Amiodarone HCl (Cordarone) 200 mg DAILY NGT Last administered on 08/28/16 09: 54; Admin Dose 200 MG; Start 08/18/16 at 09:00 Lansoprazole (Prevacid) 30 mg DAILY@06 NGT Last administered on 08/28/16 06:26 ; Admin Dose 30 MG; Start 08/18/16 at 06:00 Insulin Aspart (Novolog Insulin Pen) NOVOLOG *MODERATE* ALGORI... Q6 SC Last administered on 08/27/16 18:56; Admin Dose 4 UNIT; Start 08/19/16 at 00:00 Zinc Oxide (Desitin) 1 applic PRN PRN TOP RASH Last administered on 08/28/16 06:26; Admin Dose 1 APPLIC; Start 08/21/16 at 17:30 Sodium Bicarbonate (Sodium Bicarbonate Tab) 650 mg Q8 NGT Last administered on 08/28/16 06:26; Admin Dose 650 MG; Start 08/22/16 at 22:00 Insulin Human NPH (Humulin N) 44 unit ,,17 SC Last administered on 09:55; Admin Dose 44 UNIT; Start 08/23/16 at 17:00 Warfarin Sodium (Coumadin) 5 mg DAILY@17 GTB Last administered on 08/27/16 18: 53; Admin Dose 5 MG; Start 08/27/16 at 17:00 MICHAEL OLIVER NP Aug 28, 2016 12:18
--- NOTE | 2016-08-28 14:39 | CONS ---
Date/Time of Note Date/Time of Note DATE: 08/28/16 TIME: 14:37 Assessment/Plan Assessment/Plan Additional Assessment/Plan Ventilator settings; AC of 16, tidal volume 650, PEEP of 5, 30% FiO2. Assessment and recommendations; 1. Patient admitted for severe sepsis doing very well now off antibiotics. 2. History of severe anoxic enthesopathy patient remains ventilator dependent. Has no spontaneous respiratory effort. 3. History of seizure disorder. 4. History of renal failure. Patient on hemodialysis. 5. Episode of tracheal bleed with interval resolution. Continue current supportive care. Patient awaiting discharge. Prognosis remains poor. Consultation Date/Type/Reason Admit Date/Time Jul 27, 2016 at 23:29 Initial Consult Date 07/28/16 Type of Consultation: Pulmonary Referring Provider: BARNEY MCKEE 24 HR Interval Summary Free Text/Dictation Condition remains stable. Remains unresponsive. This is his underlying mental status. Remains ventilator dependent. General examination; elderly male, on ventilator via tracheostomy currently in no distress. Remains completely unresponsive. Exam/Review of Systems Vital Signs Vitals Vital Signs Date Time Temp Pulse Resp B/P Pulse Ox O2 Delivery O2 Flow Rate FiO2 08/28/16 13:06 94 16 96 30 08/28/16 12:15 99.4 108/59 Intake and Output 08/27/16 08/27/16 08/28/16 15:00 23:00 07:00 Intake Total 400 ml 450 ml Output Total 2400 ml 0 ml Balance -2000 ml 450 ml Exam H EENT examination; supple neck, no JVD. No lymphadenopathy. Midline trachea. Tracheostomy in place. No active bleeding seen. Patient is edentulous. Pupils are small bilaterally. No neck masses. Chest examination; clear to auscultation bilaterally. S1-S2 audible no murmurs. Regular rhythm. Abdomen examination; soft, nondistended. No organomegaly. G-tube in place. Bowel sounds audible. Extremity examination; no peripheral edema. Pulses 2+ bilaterally. COFFEE ATTENDANT examination; patient remains unresponsive. Results Result Diagram: 08/28/16 0555 08/28/16 0555 Results 24 hrs Laboratory Tests Test 08/27/16 18:55 08/28/16 02:26 08/28/16 05:55 08/28/16 06:19 Bedside Glucose 182 130 127 Anion Gap 22 H Basophils # 0.1 Basophils % 0.6 Blood Urea Nitrogen 96 H Calcium Level 8.8 Carbon Dioxide Level 30 Chloride Level 92 L Creatinine 5.40 H Eosinophils # 0.5 Eosinophils % 3.1 Glucose Level 128 Hematocrit 26.5 L Hemoglobin 8.3 L INR International Normalized Ratio 2.35 Lymphocytes # 2.0 Lymphocytes % 13.5 L Magnesium Level 2.7 H Mean Corpuscular Hemoglobin 30.9 Mean Corpuscular Hemoglobin Concent 31.3 L Mean Corpuscular Volume 98.5 Mean Platelet Volume 10.5 H Monocytes # 1.5 H Monocytes % 9.9 Neutrophils # 9.4 H Neutrophils % 64.4 Nucleated Red Blood Cells # 0.0 Nucleated Red Blood Cells % 0.0 Phosphorus Level 5.4 H Platelet Count 257 Potassium Level 4.6 Prothrombin Time 26.0 H Prothrombin Time Ratio 2.0 Red Blood Count 2.69 L Red Cell Distribution Width 15.0 H Sodium Level 139 White Blood Count 14.7 H Test 08/28/16 12:13 Bedside Glucose 162 Medications Medications Current Medications Labetalol HCl (Labetalol) 10 mg Q6H PRN IV sbp > 160 Last administered on 18:33; Admin Dose 10 MG; Start 07/28/16 at 00:30 Acetaminophen (Tylenol Supp) 650 mg Q6H PRN [place] PAIN AND OR ELEVATED TEMP Last administered on 07/31/16 17:30; Admin Dose 650 MG; Start 07/28/16 at 08:30 Miscellaneous Information 1 ea NOTE XX ; Start 07/28/16 at 09:00 Glucose (Glutose) 15 gm Q15M PRN PO DECREASED GLUCOSE; Start 07/28/16 at 09:00 Glucose (Glutose) 22.5 gm Q15M PRN PO DECREASED GLUCOSE; Start 07/28/16 at 09: 00 Dextrose (D50w Syringe) 25 ml Q15M PRN IV DECREASED GLUCOSE; Start 07/28/16 at 09:00 Dextrose (D50w Syringe) 50 ml Q15M PRN IV DECREASED GLUCOSE; Start 07/28/16 at 09:00 Glucagon (Glucagen) 1 mg Q15M PRN IM DECREASED GLUCOSE; Start 07/28/16 at 09:00 Glucose (Glutose) 15 gm Q15M PRN BUCCAL DECREASED GLUCOSE; Start 07/28/16 at 09 :00 IV Flush (NS 10 ml) 10 ml PRN PRN IV IV PROTOCOL; Start 07/29/16 at 17:00 Morphine Sulfate (morphine) 2 mg Q4 PRN IV PAIN Last administered on 08/12/16 23:38; Admin Dose 2 MG; Start 07/31/16 at 12:00 Lorazepam (Ativan) 1 mg Q1H PRN IV SEIZURES Last administered on 08/11/16 12:25 ; Admin Dose 1 MG; Start 08/02/16 at 02:00 Acetaminophen (Tylenol Liquid) 650 mg Q4H PRN NGT PAIN AND OR ELEVATED TEMP Last administered on 08/27/16 22:45; Admin Dose 650 MG; Start 08/03/16 at 00:00 Calcium Acetate (Phoslo) 667 mg Q6 NGT Last administered on 08/28/16 12:18; Admin Dose 667 MG; Start 08/05/16 at 08:30 Hydralazine HCl 10 mg 10 mg Q4H PRN IV ELEVATED SYSTOLIC BP Last administered on 08/28/16 06:28; Admin Dose 10 MG; Start 08/06/16 at 01:30 Levetiracetam/ Sodium Chloride (Keppra Iv/NS) 107.5 ml @ 420 mls/hr DAILY IVPB Last administered on 08/28/16 09:53; Admin Dose 420 MLS/HR; Start 08/08/16 at 09:00 Eye Lubricant (Artificial Tears Oph) 2 drop TID BOTH EYES Last administered on 08/28/16 12:18; Admin Dose 2 DROP; Start 08/13/16 at 09:00 Metoprolol Tartrate (Lopressor) 50 mg BID NGT Last administered on 08/28/16 09 :54; Admin Dose 50 MG; Start 08/15/16 at 21:00 Amiodarone HCl (Cordarone) 200 mg DAILY NGT Last administered on 08/28/16 09: 54; Admin Dose 200 MG; Start 08/18/16 at 09:00 Lansoprazole (Prevacid) 30 mg DAILY@06 NGT Last administered on 08/28/16 06:26 ; Admin Dose 30 MG; Start 08/18/16 at 06:00 Insulin Aspart (Novolog Insulin Pen) NOVOLOG *MODERATE* ALGORI... Q6 SC Last administered on 08/28/16 12:16; Admin Dose 2 UNIT; Start 08/19/16 at 00:00 Zinc Oxide (Desitin) 1 applic PRN PRN TOP RASH Last administered on 08/28/16 06:26; Admin Dose 1 APPLIC; Start 08/21/16 at 17:30 Sodium Bicarbonate (Sodium Bicarbonate Tab) 650 mg Q8 NGT Last administered on 08/28/16 06:26; Admin Dose 650 MG; Start 08/22/16 at 22:00 Insulin Human NPH (Humulin N) 44 unit ,, SC Last administered on 09:55; Admin Dose 44 UNIT; Start 08/23/16 at 17:00 Warfarin Sodium (Coumadin) 5 mg DAILY@17 GTB Last administered on 08/27/16 18: 53; Admin Dose 5 MG; Start 08/27/16 at 17:00 AMOR RODRIGUES Aug 28, 2016 14:39
[2016-08-28] MEDS: WARFARIN 5 MG TAB GTB SCH (16:57)
[2016-08-28] MEDS: ACETAMINOPHEN 650MG/20.3ML CUP NGT PRN (21:24)
[2016-08-29] VITALS (34 sets, daily range): BP systolic 85–178; BP diastolic 54–87; PULSE 82–112; RESP 16–20
[2016-08-29] MEDS: CALCIUM ACETATE 667 MG CAP NGT SCH ×4 (00:31→17:41)
[2016-08-29] MEDS: INSULIN ASPART [NOVOLOG] 3 ML PEN SC SCH ×4 (00:36→17:42)
[2016-08-29] MEDS: ALBUTEROL HFA 8 GM INHALER INH SCH ×6 (01:02→21:01)
[2016-08-29] MEDS: IPRATROPIUM (HFA) 12.9 GM INHALER INH SCH ×6 (01:02→21:01)
[2016-08-29] MEDS: NPH, HUMAN INSULIN ISOPHANE 3ML VIAL SC SCH ×3 (02:09→17:43)
[2016-08-29] MEDS: LANSOPRAZOLE 30 MG CAP NGT SCH (05:36)
[2016-08-29] MEDS: NA BICARBONATE 650 MG TAB NGT SCH ×3 (05:37→21:54)
[2016-08-29 06:07] LABS: ADD SCAN DIFF NO
[2016-08-29 06:16] LABS: ABNORMAL IP MESSAGE 1; BASOPHIL # 0.1 10^3/ul (0.0-0.1); BASOPHILS % 0.7 % (0.0-2.0); EOSINOPHILS # 0.6 10^3/ul (0.0-0.5); EOSINOPHILS % 4.2 % (0.0-7.0); HEMATOCRIT 25.3 % (42.0-52.0); LYMPHOCYTES % 14.1 % (15.0-51.0); MEAN CORPUSCULAR HEMOGLOBIN 30.8 pg (29.0-33.0); MEAN CORPUSCULAR HGB CONC 31.6 g/dl (32.0-37.0); MEAN CORPUSCULAR VOLUME 97.3 fl (82.0-101.0); MONOCYTE # 1.4 10^3/ul (0.3-0.9); MONOCYTES % 9.7 % (0.0-11.0); PLATELET COUNT 273 10^3/UL (140-415); RED CELL DISTRIBUTION WIDTH 14.7 % (11.5-14.5); WHITE BLOOD COUNT 14.3 10^3/ul (4.8-10.8)
[2016-08-29 06:35] LABS: INR 2.63; PROTIME 28.4 Sec (12.2-14.2); PT RATIO 2.2
[2016-08-29 06:37] LABS: POTASSIUM 5.3 mmol/L (3.5-5.1)
[2016-08-29 06:48] LABS: CREATININE 6.67 mg/dl (0.61-1.24)
--- NOTE | 2016-08-29 08:06 | CONS ---
Date/Time of Note Date/Time of Note DATE: 08/29/16 TIME: 08:04 Assessment/Plan Assessment/Plan Chief Complaint/Hosp Course #1 end-stage renal disease . He has hemodialysis ordered for today . He is on dialysis every other day . His BUN is higher today . will check stool for OB . #2 the patient is status post a cardiac arrest at home #3 altered level of consciousness, probable anoxic encephalopathy. #4 insulin-dependent diabetes mellitus #5 seizures #6 ventilator dependent respiratory failure , h/o COPD and pneumonia on CXR . #7 hyperphosphatemia , calcium acetate is being given . #8 new onset A fib , he was cardioverted and now is on warfarin . #9 dietary consult ordered , will continue tube feeding rate at 30 cc/hr . Problems: Consultation Date/Type/Reason Admit Date/Time Jul 27, 2016 at 23:29 Initial Consult Date 07/28/16 Type of Consultation: renal Referring Provider: BARNEY MCKEE 24 HR Interval Summary Free Text/Dictation patient is unresponsive on the ventilator Subjective hx not possible: pt non-verbal Exam/Review of Systems Vital Signs Vitals Vital Signs Date Time Temp Pulse Resp B/P Pulse Ox O2 Delivery O2 Flow Rate FiO2 08/29/16 05:12 94 16 100 30 08/29/16 04:00 98.4 162/79 Intake and Output 08/28/16 08/28/16 08/29/16 15:00 23:00 07:00 Intake Total 450 ml 427 ml Output Total 0 ml Balance 450 ml 427 ml Exam Constitutional: non-verbal Respiratory: clear to auscultation, diminished breath sounds Cardiovascular: regular rate and rhythm Gastrointestinal: soft Musculoskeletal: nl extremities to inspection Results Result Diagram: 08/29/16 0550 08/29/16 0550 Results 24 hrs Laboratory Tests Test 08/28/16 12:13 08/28/16 18:41 08/29/16 00:29 08/29/16 02:04 Bedside Glucose 162 118 145 134 Test 08/29/16 05:49 08/29/16 05:50 Bedside Glucose 146 Anion Gap 25 H Basophils # 0.1 Basophils % 0.7 Blood Urea Nitrogen 131 #H Calcium Level 9.0 Carbon Dioxide Level 26 Chloride Level 92 L Creatinine 6.67 H Eosinophils # 0.6 H Eosinophils % 4.2 Glucose Level 140 Hematocrit 25.3 L Hemoglobin 8.0 L INR International Normalized Ratio 2.63 Lymphocytes # 2.0 Lymphocytes % 14.1 L Mean Corpuscular Hemoglobin 30.8 Mean Corpuscular Hemoglobin Concent 31.6 L Mean Corpuscular Volume 97.3 Mean Platelet Volume 10.0 Monocytes # 1.4 H Monocytes % 9.7 Neutrophils # 9.0 H Neutrophils % 63.0 Nucleated Red Blood Cells # 0.0 Nucleated Red Blood Cells % 0.0 Platelet Count 273 Potassium Level 5.3 H Prothrombin Time 28.4 H Prothrombin Time Ratio 2.2 Red Blood Count 2.60 L Red Cell Distribution Width 14.7 H Sodium Level 138 White Blood Count 14.3 H Medications Medications Current Medications Labetalol HCl (Labetalol) 10 mg Q6H PRN IV sbp > 160 Last administered on 18:33; Admin Dose 10 MG; Start 07/28/16 at 00:30 Acetaminophen (Tylenol Supp) 650 mg Q6H PRN [place] PAIN AND OR ELEVATED TEMP Last administered on 07/31/16 17:30; Admin Dose 650 MG; Start 07/28/16 at 08:30 Miscellaneous Information 1 ea NOTE XX ; Start 07/28/16 at 09:00 Glucose (Glutose) 15 gm Q15M PRN PO DECREASED GLUCOSE; Start 07/28/16 at 09:00 Glucose (Glutose) 22.5 gm Q15M PRN PO DECREASED GLUCOSE; Start 07/28/16 at 09: 00 Dextrose (D50w Syringe) 25 ml Q15M PRN IV DECREASED GLUCOSE; Start 07/28/16 at 09:00 Dextrose (D50w Syringe) 50 ml Q15M PRN IV DECREASED GLUCOSE; Start 07/28/16 at 09:00 Glucagon (Glucagen) 1 mg Q15M PRN IM DECREASED GLUCOSE; Start 07/28/16 at 09:00 Glucose (Glutose) 15 gm Q15M PRN BUCCAL DECREASED GLUCOSE; Start 07/28/16 at 09 :00 IV Flush (NS 10 ml) 10 ml PRN PRN IV IV PROTOCOL; Start 07/29/16 at 17:00 Morphine Sulfate (morphine) 2 mg Q4 PRN IV PAIN Last administered on 08/12/16 23:38; Admin Dose 2 MG; Start 07/31/16 at 12:00 Lorazepam (Ativan) 1 mg Q1H PRN IV SEIZURES Last administered on 08/11/16 12:25 ; Admin Dose 1 MG; Start 08/02/16 at 02:00 Acetaminophen (Tylenol Liquid) 650 mg Q4H PRN NGT PAIN AND OR ELEVATED TEMP Last administered on 08/28/16 21:24; Admin Dose 650 MG; Start 08/03/16 at 00:00 Calcium Acetate (Phoslo) 667 mg Q6 NGT Last administered on 08/29/16 05:37; Admin Dose 667 MG; Start 08/05/16 at 08:30 Hydralazine HCl 10 mg 10 mg Q4H PRN IV ELEVATED SYSTOLIC BP Last administered on 08/28/16 06:28; Admin Dose 10 MG; Start 08/06/16 at 01:30 Levetiracetam/ Sodium Chloride (Keppra Iv/NS) 107.5 ml @ 420 mls/hr DAILY IVPB Last administered on 08/28/16 09:53; Admin Dose 420 MLS/HR; Start 08/08/16 at 09:00 Eye Lubricant (Artificial Tears Oph) 2 drop TID BOTH EYES Last administered on 08/28/16 22:48; Admin Dose 2 DROP; Start 08/13/16 at 09:00 Metoprolol Tartrate (Lopressor) 50 mg BID NGT Last administered on 08/28/16 21 :26; Admin Dose 50 MG; Start 08/15/16 at 21:00 Amiodarone HCl (Cordarone) 200 mg DAILY NGT Last administered on 08/28/16 09: 54; Admin Dose 200 MG; Start 08/18/16 at 09:00 Lansoprazole (Prevacid) 30 mg DAILY@06 NGT Last administered on 08/29/16 05:36 ; Admin Dose 30 MG; Start 08/18/16 at 06:00 Insulin Aspart (Novolog Insulin Pen) NOVOLOG *MODERATE* ALGORI... Q6 SC Last administered on 08/29/16 05:56; Admin Dose 2 UNIT; Start 08/19/16 at 00:00 Zinc Oxide (Desitin) 1 applic PRN PRN TOP RASH Last administered on 08/28/16 06:26; Admin Dose 1 APPLIC; Start 08/21/16 at 17:30 Sodium Bicarbonate (Sodium Bicarbonate Tab) 650 mg Q8 NGT Last administered on 08/29/16 05:37; Admin Dose 650 MG; Start 08/22/16 at 22:00 Insulin Human NPH (Humulin N) 44 unit ,, SC Last administered on 02:09; Admin Dose 44 UNIT; Start 08/23/16 at 17:00 Warfarin Sodium (Coumadin) 5 mg DAILY@17 GTB Last administered on 08/28/16 16: 57; Admin Dose 5 MG; Start 08/27/16 at 17:00 ROSCOE LANGE MD Aug 29, 2016 08:06
[2016-08-29 08:53] LABS: IRON 111 ug/dl (35-150)
[2016-08-29 09:02] LABS: TOTAL IRON BINDING CAPACITY 325 ug/dl (241-421)
[2016-08-29] MEDS: BUDESONIDE (NEB) 0.5MG/2ML AMP HHN SCH ×2 (09:25→19:25)
[2016-08-29] MEDS: ARFORMOTEROL TARTRATE 15MCG/2 ML AMP NEB SCH ×2 (09:25→19:25)
[2016-08-29] MEDS: ARTIFICIAL TEARS 15 ML OPH BOTH EYES SCH ×3 (09:40→21:56)
[2016-08-29] MEDS: METOPROLOL 50 MG TAB NGT SCH ×2 (09:41→21:55)
[2016-08-29] MEDS: LEVETIRACETAM IV 750 MG in SOD CHLORIDE 0.9% 100 ML IVPB SCH (09:42)
[2016-08-29] MEDS: AMIODARONE 200 MG TAB NGT SCH (09:42)
--- NOTE | 2016-08-29 13:48 | PN ---
Date/Time of Note Date/Time of Note DATE: 08/29/16 TIME: 13:43 Assessment/Plan VTE Prophylaxis VTE Prophylaxis Intervention: other (Coumadin) Lines/Catheters [facility] PICC Line Central line still needed: Yes Urinary Cath still in place: No Assessment/Plan Chief Complaint/Hosp Course A/P: 56 M with: 1. Status post cardiac arrest secondary to PEA. Status post trach and PEG. Family hesitant on changing the code status. 2. Acute respiratory failure, hypoxic. - Continue ventilator management as per pulmonary. - Continue inhaled bronchodilators. 3. End-stage renal disease on hemodialysis. - Continue hemodialysis as per nephrology. - epogen 4. Status post systemic inflammatory response syndrome. Status post antibiotics. - monitor 5. Paroxysmal atrial fibrillation with rapid ventricular response. Currently in sinus rhythm. - continue amiodarone and metoprolol. - continue warfarin for stroke prophylaxis. 6. Type 2 diabetes mellitus. Hemoglobin A1c 7.3. - Continue insulin sliding scale along with Lantus insulin. 7. Essential hypertension. - Continue antihypertensives. 8. Seizure disorder. Most probably secondary to anoxia. - Continue anticonvulsants. 9. Possible underlying anoxic encephalopathy. Brain MRI showing a single focus of restricted diffusion in the left superior frontal lobe at the level of the precentral gyrus compatible with acute/subacute ischemic infarct. - monitor for now 10. Normocytic normochromic anemia, most probably anemia of chronic kidney disease. - Will monitor H and H closely, on epogen as well 11. Fluid, electrolytes and nutrition. - Continue G-tube feedings. 12. Deep venous thrombosis prophylaxis. On warfarin. 13. Gastrointestinal prophylaxis. Proton pump inhibitors. PLAN: Continue inpatient care. The patient's fevers could be neurogenic in origin. All the cultures have been negative. Holding valproic acid because of high serum levels. Await placement to a fdc facility. Problems: Subjective 24 Hr Interval Summary Free Text/Dictation Pt getting HD presently. Exam/Review of Systems Vital Signs Vitals Vital Signs Date Time Temp Pulse Resp B/P Pulse Ox O2 Delivery O2 Flow Rate FiO2 08/29/16 13:13 99 18 97 35 08/29/16 11:38 99.0 146/86 Intake and Output 08/28/16 08/28/16 08/29/16 15:00 23:00 07:00 Intake Total 450 ml 427 ml Output Total 0 ml Balance 450 ml 427 ml Exam GENERAL: lying in bed with tracheostomy to vent, in no apparent distress. HEENT: Head normocephalic and atraumatic. Eyes: Anicteric sclerae. Conjunctivae clear. ENT: Nasal septum Oral mucosa is dry. NECK: Supple. Tracheostomy midline. RESPIRATORY: Bilateral diminished breath sounds. Tracheostomy connected to mechanical ventilator. On AC mode ventilation. Diminished breath sounds bilaterally. CARDIAC: Regular rate and rhythm. No obvious murmurs heard. ABDOMEN: Soft, nontender and nondistended. Left upper quadrant G-tube in place. GENITOURINARY: Deferred. EXTREMITIES: No cyanosis, no clubbing, no edema. Peripheral pulses are palpable. NEUROLOGIC: The patient is obtunded. Opens eyes. Does not follow any commands. Results Result Diagram: 08/29/16 0550 08/29/16 0550 Results 24 hrs Laboratory Tests Test 08/28/16 18:41 08/29/16 00:29 08/29/16 02:04 08/29/16 05:49 Bedside Glucose 118 145 134 146 Test 08/29/16 05:50 08/29/16 12:24 Anion Gap 25 H Basophils # 0.1 Basophils % 0.7 Blood Urea Nitrogen 131 #H Calcium Level 9.0 Carbon Dioxide Level 26 Chloride Level 92 L Creatinine 6.67 H Eosinophils # 0.6 H Eosinophils % 4.2 Ferritin 965.0 H Glucose Level 140 Hematocrit 25.3 L Hemoglobin 8.0 L INR International Normalized Ratio 2.63 Iron Level 111 Lymphocytes # 2.0 Lymphocytes % 14.1 L Mean Corpuscular Hemoglobin 30.8 Mean Corpuscular Hemoglobin Concent 31.6 L Mean Corpuscular Volume 97.3 Mean Platelet Volume 10.0 Monocytes # 1.4 H Monocytes % 9.7 Neutrophils # 9.0 H Neutrophils % 63.0 Nucleated Red Blood Cells # 0.0 Nucleated Red Blood Cells % 0.0 Percent Iron Saturation 34 Platelet Count 273 Potassium Level 5.3 H Prothrombin Time 28.4 H Prothrombin Time Ratio 2.2 Red Blood Count 2.60 L Red Cell Distribution Width 14.7 H Sodium Level 138 Total Iron Binding Capacity 325 White Blood Count 14.3 H Bedside Glucose 177 Medications Medications Current Medications Labetalol HCl (Labetalol) 10 mg Q6H PRN IV sbp > 160 Last administered on 18:33; Admin Dose 10 MG; Start 07/28/16 at 00:30 Acetaminophen (Tylenol Supp) 650 mg Q6H PRN [place] PAIN AND OR ELEVATED TEMP Last administered on 07/31/16 17:30; Admin Dose 650 MG; Start 07/28/16 at 08:30 Miscellaneous Information 1 ea NOTE XX ; Start 07/28/16 at 09:00 Glucose (Glutose) 15 gm Q15M PRN PO DECREASED GLUCOSE; Start 07/28/16 at 09:00 Glucose (Glutose) 22.5 gm Q15M PRN PO DECREASED GLUCOSE; Start 07/28/16 at 09: 00 Dextrose (D50w Syringe) 25 ml Q15M PRN IV DECREASED GLUCOSE; Start 07/28/16 at 09:00 Dextrose (D50w Syringe) 50 ml Q15M PRN IV DECREASED GLUCOSE; Start 07/28/16 at 09:00 Glucagon (Glucagen) 1 mg Q15M PRN IM DECREASED GLUCOSE; Start 07/28/16 at 09:00 Glucose (Glutose) 15 gm Q15M PRN BUCCAL DECREASED GLUCOSE; Start 07/28/16 at 09 :00 IV Flush (NS 10 ml) 10 ml PRN PRN IV IV PROTOCOL; Start 07/29/16 at 17:00 Morphine Sulfate (morphine) 2 mg Q4 PRN IV PAIN Last administered on 08/12/16 23:38; Admin Dose 2 MG; Start 07/31/16 at 12:00 Lorazepam (Ativan) 1 mg Q1H PRN IV SEIZURES Last administered on 08/11/16 12:25 ; Admin Dose 1 MG; Start 08/02/16 at 02:00 Acetaminophen (Tylenol Liquid) 650 mg Q4H PRN NGT PAIN AND OR ELEVATED TEMP Last administered on 08/28/16 21:24; Admin Dose 650 MG; Start 08/03/16 at 00:00 Calcium Acetate (Phoslo) 667 mg Q6 NGT Last administered on 08/29/16 12:26; Admin Dose 667 MG; Start 08/05/16 at 08:30 Hydralazine HCl 10 mg 10 mg Q4H PRN IV ELEVATED SYSTOLIC BP Last administered on 08/28/16 06:28; Admin Dose 10 MG; Start 08/06/16 at 01:30 Levetiracetam/ Sodium Chloride (Keppra Iv/NS) 107.5 ml @ 420 mls/hr DAILY IVPB Last administered on 08/29/16 09:42; Admin Dose 420 MLS/HR; Start 08/08/16 at 09:00 Eye Lubricant (Artificial Tears Oph) 2 drop TID BOTH EYES Last administered on 08/29/16 12:27; Admin Dose 2 DROP; Start 08/13/16 at 09:00 Metoprolol Tartrate (Lopressor) 50 mg BID NGT Last administered on 08/29/16 09 :41; Admin Dose 50 MG; Start 08/15/16 at 21:00 Amiodarone HCl (Cordarone) 200 mg DAILY NGT Last administered on 08/29/16 09: 42; Admin Dose 200 MG; Start 08/18/16 at 09:00 Lansoprazole (Prevacid) 30 mg DAILY@06 NGT Last administered on 08/29/16 05:36 ; Admin Dose 30 MG; Start 08/18/16 at 06:00 Insulin Aspart (Novolog Insulin Pen) NOVOLOG *MODERATE* ALGORI... Q6 SC Last administered on 08/29/16 12:27; Admin Dose 2 UNIT; Start 08/19/16 at 00:00 Zinc Oxide (Desitin) 1 applic PRN PRN TOP RASH Last administered on 08/28/16 06:26; Admin Dose 1 APPLIC; Start 08/21/16 at 17:30 Sodium Bicarbonate (Sodium Bicarbonate Tab) 650 mg Q8 NGT Last administered on 08/29/16 05:37; Admin Dose 650 MG; Start 08/22/16 at 22:00 Insulin Human NPH (Humulin N) 44 unit ,, SC Last administered on 10:38; Admin Dose 44 UNIT; Start 08/23/16 at 17:00 Warfarin Sodium (Coumadin) 5 mg DAILY@17 GTB Last administered on 08/28/16 16: 57; Admin Dose 5 MG; Start 08/27/16 at 17:00 Epoetin Eloy (Epogen (Esrd)) 10,000 units MoWeFr@17 SC ; Start 08/29/16 at 17:00 CAPRI CHAPA Aug 29, 2016 13:47
--- NOTE | 2016-08-29 14:31 | CONS ---
Date/Time of Note Date/Time of Note DATE: 08/29/16 TIME: 14:29 Assessment/Plan Assessment/Plan Additional Assessment/Plan Ventilator settings; AC of 16, tidal volume 650, PEEP of 5, 30% FiO2. Assessment and recommendations; 1. Patient admitted for sepsis, status post antibiotic treatment. 2. End-stage renal disease on hemodialysis. 3. Stable seizure disorder. 4. Hypertension. 5. Chronic respiratory failure. Patient remains essentially apneic and has no spontaneous respiratory effort. 6. Status post orotracheal insertion site bleed without any recurrence. Continue current treatment for now change Keppra to enteral form 1 g twice daily. Consultation Date/Type/Reason Admit Date/Time Jul 27, 2016 at 23:29 Initial Consult Date 07/28/16 Type of Consultation: Pulmonary Referring Provider: BARNEY MCKEE 24 HR Interval Summary Free Text/Dictation Patient's condition remains stable. Remains ventilator dependent. Has remained hemodynamically stable. No overt seizure activity noted. General examination; elderly male, on ventilator via tracheostomy currently in no distress. Patient remains unresponsive. Exam/Review of Systems Vital Signs Vitals Vital Signs Date Time Temp Pulse Resp B/P Pulse Ox O2 Delivery O2 Flow Rate FiO2 08/29/16 14:12 99 08/29/16 13:13 18 97 35 08/29/16 11:38 99.0 146/86 Intake and Output 08/28/16 08/28/16 08/29/16 15:00 23:00 07:00 Intake Total 450 ml 427 ml Output Total 0 ml Balance 450 ml 427 ml Exam HEENT examination; supple neck, no JVD. No lymphadenopathy. Midline trachea. No thyromegaly. Patient is edentulous. Tracheostomy in place with clean insertion site. Chest examination; clear to auscultation bilaterally. S1-S2 audible, no murmurs. Regular rhythm. Abdomen examination; soft, nondistended. No organomegaly. Bowel sounds audible. G-tube in place. Extremity exam is; no peripheral edema. Pulses 2+ bilaterally. NUCLEAR PHYSICIST examination; patient remains completely unresponsive. Results Result Diagram: 08/29/16 0550 08/29/16 0550 Results 24 hrs Laboratory Tests Test 08/28/16 18:41 08/29/16 00:29 08/29/16 02:04 08/29/16 05:49 Bedside Glucose 118 145 134 146 Test 08/29/16 05:50 08/29/16 12:24 Anion Gap 25 H Basophils # 0.1 Basophils % 0.7 Blood Urea Nitrogen 131 #H Calcium Level 9.0 Carbon Dioxide Level 26 Chloride Level 92 L Creatinine 6.67 H Eosinophils # 0.6 H Eosinophils % 4.2 Ferritin 965.0 H Glucose Level 140 Hematocrit 25.3 L Hemoglobin 8.0 L INR International Normalized Ratio 2.63 Iron Level 111 Lymphocytes # 2.0 Lymphocytes % 14.1 L Mean Corpuscular Hemoglobin 30.8 Mean Corpuscular Hemoglobin Concent 31.6 L Mean Corpuscular Volume 97.3 Mean Platelet Volume 10.0 Monocytes # 1.4 H Monocytes % 9.7 Neutrophils # 9.0 H Neutrophils % 63.0 Nucleated Red Blood Cells # 0.0 Nucleated Red Blood Cells % 0.0 Percent Iron Saturation 34 Platelet Count 273 Potassium Level 5.3 H Prothrombin Time 28.4 H Prothrombin Time Ratio 2.2 Red Blood Count 2.60 L Red Cell Distribution Width 14.7 H Sodium Level 138 Total Iron Binding Capacity 325 White Blood Count 14.3 H Bedside Glucose 177 Medications Medications Current Medications Labetalol HCl (Labetalol) 10 mg Q6H PRN IV sbp > 160 Last administered on 18:33; Admin Dose 10 MG; Start 07/28/16 at 00:30 Acetaminophen (Tylenol Supp) 650 mg Q6H PRN [place] PAIN AND OR ELEVATED TEMP Last administered on 07/31/16 17:30; Admin Dose 650 MG; Start 07/28/16 at 08:30 Miscellaneous Information 1 ea NOTE XX ; Start 07/28/16 at 09:00 Glucose (Glutose) 15 gm Q15M PRN PO DECREASED GLUCOSE; Start 07/28/16 at 09:00 Glucose (Glutose) 22.5 gm Q15M PRN PO DECREASED GLUCOSE; Start 07/28/16 at 09: 00 Dextrose (D50w Syringe) 25 ml Q15M PRN IV DECREASED GLUCOSE; Start 07/28/16 at 09:00 Dextrose (D50w Syringe) 50 ml Q15M PRN IV DECREASED GLUCOSE; Start 07/28/16 at 09:00 Glucagon (Glucagen) 1 mg Q15M PRN IM DECREASED GLUCOSE; Start 07/28/16 at 09:00 Glucose (Glutose) 15 gm Q15M PRN BUCCAL DECREASED GLUCOSE; Start 07/28/16 at 09 :00 IV Flush (NS 10 ml) 10 ml PRN PRN IV IV PROTOCOL; Start 07/29/16 at 17:00 Morphine Sulfate (morphine) 2 mg Q4 PRN IV PAIN Last administered on 08/12/16 23:38; Admin Dose 2 MG; Start 07/31/16 at 12:00 Lorazepam (Ativan) 1 mg Q1H PRN IV SEIZURES Last administered on 08/11/16 12:25 ; Admin Dose 1 MG; Start 08/02/16 at 02:00 Acetaminophen (Tylenol Liquid) 650 mg Q4H PRN NGT PAIN AND OR ELEVATED TEMP Last administered on 08/28/16 21:24; Admin Dose 650 MG; Start 08/03/16 at 00:00 Calcium Acetate (Phoslo) 667 mg Q6 NGT Last administered on 08/29/16 12:26; Admin Dose 667 MG; Start 08/05/16 at 08:30 Hydralazine HCl 10 mg 10 mg Q4H PRN IV ELEVATED SYSTOLIC BP Last administered on 08/28/16 06:28; Admin Dose 10 MG; Start 08/06/16 at 01:30 Levetiracetam/ Sodium Chloride (Keppra Iv/NS) 107.5 ml @ 420 mls/hr DAILY IVPB Last administered on 08/29/16 09:42; Admin Dose 420 MLS/HR; Start 08/08/16 at 09:00 Eye Lubricant (Artificial Tears Oph) 2 drop TID BOTH EYES Last administered on 08/29/16 12:27; Admin Dose 2 DROP; Start 08/13/16 at 09:00 Metoprolol Tartrate (Lopressor) 50 mg BID NGT Last administered on 08/29/16 09 :41; Admin Dose 50 MG; Start 08/15/16 at 21:00 Amiodarone HCl (Cordarone) 200 mg DAILY NGT Last administered on 08/29/16 09: 42; Admin Dose 200 MG; Start 08/18/16 at 09:00 Lansoprazole (Prevacid) 30 mg DAILY@06 NGT Last administered on 08/29/16 05:36 ; Admin Dose 30 MG; Start 08/18/16 at 06:00 Insulin Aspart (Novolog Insulin Pen) NOVOLOG *MODERATE* ALGORI... Q6 SC Last administered on 08/29/16 12:27; Admin Dose 2 UNIT; Start 08/19/16 at 00:00 Zinc Oxide (Desitin) 1 applic PRN PRN TOP RASH Last administered on 08/28/16 06:26; Admin Dose 1 APPLIC; Start 08/21/16 at 17:30 Sodium Bicarbonate (Sodium Bicarbonate Tab) 650 mg Q8 NGT Last administered on 08/29/16 05:37; Admin Dose 650 MG; Start 08/22/16 at 22:00 Insulin Human NPH (Humulin N) 44 unit ,, SC Last administered on 10:38; Admin Dose 44 UNIT; Start 08/23/16 at 17:00 Warfarin Sodium (Coumadin) 5 mg DAILY@17 GTB Last administered on 08/28/16 16: 57; Admin Dose 5 MG; Start 08/27/16 at 17:00 Epoetin Eloy (Epogen (Esrd)) 10,000 units MoWeFr@17 SC ; Start 08/29/16 at 17:00 AMOR RODRIGUES Aug 29, 2016 14:31
[2016-08-29] MEDS: WARFARIN 5 MG TAB GTB SCH (17:41)
[2016-08-29] MEDS: EPOETIN 10000 UNITS/1 ML INJ (ESRD) SC SCH (19:28)
[2016-08-29] MEDS: LEVETIRACETAM (100 MG/ML) 5ML CUP GTB SCH (21:54)
[2016-08-30] VITALS (31 sets, daily range): BP systolic 100–142; BP diastolic 52–72; PULSE 90–107; RESP 16–20
[2016-08-30] MEDS: CALCIUM ACETATE 667 MG CAP NGT SCH ×4 (00:20→17:37)
[2016-08-30] MEDS: NPH, HUMAN INSULIN ISOPHANE 3ML VIAL SC SCH ×3 (00:36→17:43)
[2016-08-30] MEDS: INSULIN ASPART [NOVOLOG] 3 ML PEN SC SCH ×4 (00:37→17:43)
[2016-08-30] MEDS: ALBUTEROL HFA 8 GM INHALER INH SCH ×6 (01:09→21:25)
[2016-08-30] MEDS: IPRATROPIUM (HFA) 12.9 GM INHALER INH SCH ×6 (01:09→21:25)
[2016-08-30] MEDS: ACETAMINOPHEN 650MG/20.3ML CUP NGT PRN ×2 (04:47→18:21)
[2016-08-30] MEDS: NA BICARBONATE 650 MG TAB NGT SCH ×3 (06:09→21:17)
[2016-08-30] MEDS: LANSOPRAZOLE 30 MG CAP NGT SCH (06:09)
[2016-08-30 07:10] LABS: ADD SCAN DIFF NO
[2016-08-30 07:13] LABS: ABNORMAL IP MESSAGE 1; BASOPHIL # 0.1 10^3/ul (0.0-0.1); BASOPHILS % 0.4 % (0.0-2.0); EOSINOPHILS # 0.4 10^3/ul (0.0-0.5); EOSINOPHILS % 2.7 % (0.0-7.0); HEMATOCRIT 25.7 % (42.0-52.0); HEMOGLOBIN 7.9 g/dl (14.0-18.0); LYMPHOCYTES # 2.1 10^3/ul (0.8-2.9); LYMPHOCYTES % 13.2 % (15.0-51.0); MEAN CORPUSCULAR HEMOGLOBIN 31.2 pg (29.0-33.0); MEAN CORPUSCULAR HGB CONC 30.7 g/dl (32.0-37.0); MEAN CORPUSCULAR VOLUME 101.6 fl (82.0-101.0); MEAN PLATELET VOLUME 9.9 fl (7.4-10.4); MONOCYTE # 1.6 10^3/ul (0.3-0.9); NEUTROPHIL # 10.4 10^3/ul (1.6-7.5); NEUTROPHILS % 66.7 % (39.0-77.0); PLATELET COUNT 263 10^3/UL (140-415); RED BLOOD COUNT 2.53 10^6/ul (4.70-6.10); RED CELL DISTRIBUTION WIDTH 15.1 % (11.5-14.5); WHITE BLOOD COUNT 15.7 10^3/ul (4.8-10.8)
[2016-08-30 07:17] LABS: INR 2.32; PROTIME 25.7 Sec (12.2-14.2)
[2016-08-30 07:24] LABS: ALBUMIN 3.3 g/dl (3.3-4.9); POTASSIUM 4.5 mmol/L (3.5-5.1)
[2016-08-30 07:27] LABS: ALBUMIN/GLOBULIN RATIO 0.71; TOTAL PROTEIN 7.9 g/dl (6.1-8.1)
[2016-08-30 07:37] LABS: CREATININE 5.32 mg/dl (0.61-1.24)
--- NOTE | 2016-08-30 08:09 | CONS ---
Date/Time of Note Date/Time of Note DATE: 08/30/16 TIME: 08:03 Assessment/Plan Assessment/Plan Chief Complaint/Hosp Course #1 end-stage renal disease . He has hemodialysis ordered for today . His BUN has been high . will check stool for OB . #2 the patient is status post a cardiac arrest at home #3 altered level of consciousness, probable anoxic encephalopathy. #4 insulin-dependent diabetes mellitus #5 seizures #6 ventilator dependent respiratory failure , h/o COPD and pneumonia on CXR . #7 hyperphosphatemia , calcium acetate is being given . #8 new onset A fib , he was cardioverted and now is on warfarin . #9 dietary consult ordered , will continue tube feeding rate at 30 cc/hr . #10 anemia Problems: Consultation Date/Type/Reason Admit Date/Time Jul 27, 2016 at 23:29 Initial Consult Date 07/28/16 Type of Consultation: Pulmonary Referring Provider: BARNEY MCKEE 24 HR Interval Summary Free Text/Dictation he is unresponsive on a ventilator Exam/Review of Systems Vital Signs Vitals Vital Signs Date Time Temp Pulse Resp B/P Pulse Ox O2 Delivery O2 Flow Rate FiO2 08/30/16 07:18 99.9 102 17 128/65 95 08/30/16 05:00 35 Intake and Output 08/29/16 08/29/16 08/30/16 15:00 23:00 07:00 Intake Total 400 ml 460 ml Output Total 5400 ml Balance -5000 ml 460 ml Exam Constitutional: non-verbal Respiratory: clear to auscultation, diminished breath sounds Cardiovascular: regular rate and rhythm Gastrointestinal: soft Musculoskeletal: nl extremities to inspection Results Result Diagram: 08/30/16 0615 08/30/16 0615 Results 24 hrs Laboratory Tests Test 08/29/16 12:24 08/29/16 17:39 08/30/16 00:19 08/30/16 06:15 Bedside Glucose 177 162 145 Alanine Aminotransferase (ALT/SGPT) 37 Albumin 3.3 Albumin/Globulin Ratio 0.71 Alkaline Phosphatase 95 Anion Gap 25 H Aspartate Amino Transf (AST/SGOT) 61 H Basophils # 0.1 Basophils % 0.4 Blood Urea Nitrogen 97 #H Calcium Level 9.0 Carbon Dioxide Level 26 Chloride Level 97 Creatinine 5.32 H Direct Bilirubin 0.00 Eosinophils # 0.4 Eosinophils % 2.7 Globulin 4.60 H Glucose Level 163 Hematocrit 25.7 L Hemoglobin 7.9 L INR International Normalized Ratio 2.32 Indirect Bilirubin 0.0 Lymphocytes # 2.1 Lymphocytes % 13.2 L Mean Corpuscular Hemoglobin 31.2 Mean Corpuscular Hemoglobin Concent 30.7 L Mean Corpuscular Volume 101.6 H Mean Platelet Volume 9.9 Monocytes # 1.6 H Monocytes % 10.0 Neutrophils # 10.4 H Neutrophils % 66.7 Nucleated Red Blood Cells # 0.0 Nucleated Red Blood Cells % 0.0 Platelet Count 263 Potassium Level 4.5 Prothrombin Time 25.7 H Prothrombin Time Ratio 2.0 Red Blood Count 2.53 L Red Cell Distribution Width 15.1 H Sodium Level 143 Total Bilirubin 0.0 L Total Protein 7.9 White Blood Count 15.7 H Test 08/30/16 06:19 Bedside Glucose 170 Medications Medications Current Medications Labetalol HCl (Labetalol) 10 mg Q6H PRN IV sbp > 160 Last administered on 18:33; Admin Dose 10 MG; Start 07/28/16 at 00:30 Acetaminophen (Tylenol Supp) 650 mg Q6H PRN [place] PAIN AND OR ELEVATED TEMP Last administered on 07/31/16 17:30; Admin Dose 650 MG; Start 07/28/16 at 08:30 Miscellaneous Information 1 ea NOTE XX ; Start 07/28/16 at 09:00 Glucose (Glutose) 15 gm Q15M PRN PO DECREASED GLUCOSE; Start 07/28/16 at 09:00 Glucose (Glutose) 22.5 gm Q15M PRN PO DECREASED GLUCOSE; Start 07/28/16 at 09: 00 Dextrose (D50w Syringe) 25 ml Q15M PRN IV DECREASED GLUCOSE; Start 07/28/16 at 09:00 Dextrose (D50w Syringe) 50 ml Q15M PRN IV DECREASED GLUCOSE; Start 07/28/16 at 09:00 Glucagon (Glucagen) 1 mg Q15M PRN IM DECREASED GLUCOSE; Start 07/28/16 at 09:00 Glucose (Glutose) 15 gm Q15M PRN BUCCAL DECREASED GLUCOSE; Start 07/28/16 at 09 :00 IV Flush (NS 10 ml) 10 ml PRN PRN IV IV PROTOCOL; Start 07/29/16 at 17:00 Morphine Sulfate (morphine) 2 mg Q4 PRN IV PAIN Last administered on 08/12/16 23:38; Admin Dose 2 MG; Start 07/31/16 at 12:00 Lorazepam (Ativan) 1 mg Q1H PRN IV SEIZURES Last administered on 08/11/16 12:25 ; Admin Dose 1 MG; Start 08/02/16 at 02:00 Acetaminophen (Tylenol Liquid) 650 mg Q4H PRN NGT PAIN AND OR ELEVATED TEMP Last administered on 08/30/16 04:47; Admin Dose 650 MG; Start 08/03/16 at 00:00 Calcium Acetate (Phoslo) 667 mg Q6 NGT Last administered on 08/30/16 06:08; Admin Dose 667 MG; Start 08/05/16 at 08:30 Hydralazine HCl (Apresoline) 10 mg Q4H PRN IV ELEVATED SYSTOLIC BP Last administered on 08/28/16 06:28; Admin Dose 10 MG; Start 08/06/16 at 01:30 Eye Lubricant (Artificial Tears Oph) 2 drop TID BOTH EYES Last administered on 08/29/16 21:56; Admin Dose 2 DROP; Start 08/13/16 at 09:00 Metoprolol Tartrate (Lopressor) 50 mg BID NGT Last administered on 08/29/16 21 :55; Admin Dose 50 MG; Start 08/15/16 at 21:00 Amiodarone HCl (Cordarone) 200 mg DAILY NGT Last administered on 08/29/16 09: 42; Admin Dose 200 MG; Start 08/18/16 at 09:00 Lansoprazole (Prevacid) 30 mg DAILY@06 NGT Last administered on 08/30/16 06:09 ; Admin Dose 30 MG; Start 08/18/16 at 06:00 Insulin Aspart (Novolog Insulin Pen) NOVOLOG *MODERATE* ALGORI... Q6 SC Last administered on 08/30/16 06:38; Admin Dose 2 UNIT; Start 08/19/16 at 00:00 Zinc Oxide (Desitin) 1 applic PRN PRN TOP RASH Last administered on 08/28/16 06:26; Admin Dose 1 APPLIC; Start 08/21/16 at 17:30 Sodium Bicarbonate (Sodium Bicarbonate Tab) 650 mg Q8 NGT Last administered on 08/30/16 06:09; Admin Dose 650 MG; Start 08/22/16 at 22:00 Insulin Human NPH (Humulin N) 44 unit SC Last administered on 00:36; Admin Dose 44 UNIT; Start 08/23/16 at 17:00 Warfarin Sodium (Coumadin) 5 mg DAILY@17 GTB Last administered on 08/29/16 17: 41; Admin Dose 5 MG; Start 08/27/16 at 17:00 Epoetin Eloy (Epogen (Esrd)) 10,000 units MoWeFr@17 SC Last administered on 19:28; Admin Dose 10,000 UNITS; Start 08/29/16 at 17:00 Levetiracetam (Keppra Liquid) 1,000 mg BID GTB Last administered on 08/29/16 21:54; Admin Dose 1,000 MG; Start 08/29/16 at 21:00 ROSCOE LANGE MD Aug 30, 2016 08:09
[2016-08-30] MEDS: BUDESONIDE (NEB) 0.5MG/2ML AMP HHN SCH ×2 (09:00→20:07)
[2016-08-30] MEDS: ARFORMOTEROL TARTRATE 15MCG/2 ML AMP NEB SCH ×2 (09:09→20:07)
[2016-08-30] MEDS: AMIODARONE 200 MG TAB NGT SCH (09:53)
[2016-08-30] MEDS: ARTIFICIAL TEARS 15 ML OPH BOTH EYES SCH ×3 (09:53→21:11)
[2016-08-30] MEDS: LEVETIRACETAM (100 MG/ML) 5ML CUP GTB SCH ×2 (09:54→21:10)
[2016-08-30] MEDS: METOPROLOL 50 MG TAB NGT SCH ×2 (09:55→21:11)
--- NOTE | 2016-08-30 11:29 | PN ---
Date/Time of Note Date/Time of Note DATE: 08/30/16 TIME: 11:25 Assessment/Plan VTE Prophylaxis VTE Prophylaxis Intervention: other (Coumadin) Lines/Catheters IV [facility] Type (from [facility]): PICC Line Central line still needed: Yes Urinary Cath still in place: No Assessment/Plan Chief Complaint/Hosp Course A/P: 56 M with: 1. Status post cardiac arrest secondary to PEA. Status post trach and PEG. Family hesitant on changing the code status. 2. Acute respiratory failure, hypoxic. - Continue ventilator management as per pulmonary. - Continue inhaled bronchodilators. 3. End-stage renal disease on hemodialysis. - Continue hemodialysis as per nephrology. - epogen 4. Status post systemic inflammatory response syndrome. Status post antibiotics. - monitor, fevers likely central in origin 5. Paroxysmal atrial fibrillation with rapid ventricular response. Currently in sinus rhythm. - continue amiodarone and metoprolol. - continue warfarin for stroke prophylaxis. 6. Type 2 diabetes mellitus. Hemoglobin A1c 7.3. - Continue insulin sliding scale along with Lantus insulin. 7. Essential hypertension. - Continue antihypertensives. 8. Seizure disorder. Most probably secondary to anoxia. - Continue anticonvulsants. 9. Possible underlying anoxic encephalopathy. Brain MRI showing a single focus of restricted diffusion in the left superior frontal lobe at the level of the precentral gyrus compatible with acute/subacute ischemic infarct. - monitor for now 10. Normocytic normochromic anemia, most probably anemia of chronic kidney disease. - Will monitor H and H closely, on epogen as well 11. Fluid, electrolytes and nutrition. - Continue G-tube feedings. 12. Deep venous thrombosis prophylaxis. On warfarin. 13. Gastrointestinal prophylaxis. Proton pump inhibitors. PLAN: Continue inpatient care. The patient's fevers could be neurogenic in origin. All the cultures have been negative. Holding valproic acid because of high serum levels. Await placement to a half-way facility. Problems: Subjective 24 Hr Interval Summary Free Text/Dictation Pt had HD yesterday, still + fevers. Exam/Review of Systems Vital Signs Vitals Vital Signs Date Time Temp Pulse Resp B/P Pulse Ox O2 Delivery O2 Flow Rate FiO2 08/30/16 11:18 99.7 92 17 129/68 97 08/30/16 09:16 35 Intake and Output 08/29/16 08/29/16 08/30/16 15:00 23:00 07:00 Intake Total 400 ml 460 ml Output Total 5400 ml Balance -5000 ml 460 ml Exam GENERAL: lying in bed with tracheostomy to vent, in no apparent distress. HEENT: Head normocephalic and atraumatic. Eyes: Anicteric sclerae. Conjunctivae clear. ENT: Nasal septum Oral mucosa is dry. NECK: Supple. Tracheostomy midline. RESPIRATORY: Bilateral diminished breath sounds. Tracheostomy connected to mechanical ventilator. On AC mode ventilation. Diminished breath sounds bilaterally. CARDIAC: Regular rate and rhythm. No obvious murmurs heard. ABDOMEN: Soft, nontender and nondistended. Left upper quadrant G-tube in place. EXTREMITIES: No cyanosis, no clubbing, no edema. Peripheral pulses are palpable. NEUROLOGIC: The patient is obtunded. Opens eyes. Does not follow any commands. Results Result Diagram: 08/30/16 0615 08/30/16 0615 Results 24 hrs Laboratory Tests Test 08/29/16 12:24 08/29/16 17:39 08/30/16 00:19 08/30/16 06:15 Bedside Glucose 177 162 145 Alanine Aminotransferase (ALT/SGPT) 37 Albumin 3.3 Albumin/Globulin Ratio 0.71 Alkaline Phosphatase 95 Anion Gap 25 H Aspartate Amino Transf (AST/SGOT) 61 H Basophils # 0.1 Basophils % 0.4 Blood Urea Nitrogen 97 #H Calcium Level 9.0 Carbon Dioxide Level 26 Chloride Level 97 Creatinine 5.32 H Direct Bilirubin 0.00 Eosinophils # 0.4 Eosinophils % 2.7 Globulin 4.60 H Glucose Level 163 Hematocrit 25.7 L Hemoglobin 7.9 L INR International Normalized Ratio 2.32 Indirect Bilirubin 0.0 Lymphocytes # 2.1 Lymphocytes % 13.2 L Mean Corpuscular Hemoglobin 31.2 Mean Corpuscular Hemoglobin Concent 30.7 L Mean Corpuscular Volume 101.6 H Mean Platelet Volume 9.9 Monocytes # 1.6 H Monocytes % 10.0 Neutrophils # 10.4 H Neutrophils % 66.7 Nucleated Red Blood Cells # 0.0 Nucleated Red Blood Cells % 0.0 Platelet Count 263 Potassium Level 4.5 Prothrombin Time 25.7 H Prothrombin Time Ratio 2.0 Red Blood Count 2.53 L Red Cell Distribution Width 15.1 H Sodium Level 143 Total Bilirubin 0.0 L Total Protein 7.9 White Blood Count 15.7 H Test 08/30/16 06:19 Bedside Glucose 170 Medications Medications Current Medications Labetalol HCl (Labetalol) 10 mg Q6H PRN IV sbp > 160 Last administered on 18:33; Admin Dose 10 MG; Start 07/28/16 at 00:30 Acetaminophen (Tylenol Supp) 650 mg Q6H PRN [place] PAIN AND [place] ELEVATED TEMP Last administered on 07/31/16 17:30; Admin Dose 650 MG; Start 07/28/16 at 08:30 Miscellaneous Information 1 ea NOTE XX ; Start 07/28/16 at 09:00 Glucose (Glutose) 15 gm Q15M PRN PO DECREASED GLUCOSE; Start 07/28/16 at 09:00 Glucose (Glutose) 22.5 gm Q15M PRN PO DECREASED GLUCOSE; Start 07/28/16 at 09: 00 Dextrose (D50w Syringe) 25 ml Q15M PRN IV DECREASED GLUCOSE; Start 07/28/16 at 09:00 Dextrose (D50w Syringe) 50 ml Q15M PRN IV DECREASED GLUCOSE; Start 07/28/16 at 09:00 Glucagon (Glucagen) 1 mg Q15M PRN IM DECREASED GLUCOSE; Start 07/28/16 at 09:00 Glucose (Glutose) 15 gm Q15M PRN BUCCAL DECREASED GLUCOSE; Start 07/28/16 at 09 :00 IV Flush (NS 10 ml) 10 ml PRN PRN IV IV PROTOCOL; Start 07/29/16 at 17:00 Morphine Sulfate (morphine) 2 mg Q4 PRN IV PAIN Last administered on 08/12/16 23:38; Admin Dose 2 MG; Start 07/31/16 at 12:00 Lorazepam (Ativan) 1 mg Q1H PRN IV SEIZURES Last administered on 08/11/16 12:25 ; Admin Dose 1 MG; Start 08/02/16 at 02:00 Acetaminophen (Tylenol Liquid) 650 mg Q4H PRN NGT PAIN AND OR ELEVATED TEMP Last administered on 08/30/16 04:47; Admin Dose 650 MG; Start 08/03/16 at 00:00 Calcium Acetate (Phoslo) 667 mg Q6 NGT Last administered on 08/30/16 06:08; Admin Dose 667 MG; Start 08/05/16 at 08:30 Hydralazine HCl (Apresoline) 10 mg Q4H PRN IV ELEVATED SYSTOLIC BP Last administered on 08/28/16 06:28; Admin Dose 10 MG; Start 08/06/16 at 01:30 Eye Lubricant (Artificial Tears Oph) 2 drop TID BOTH EYES Last administered on 08/30/16 09:53; Admin Dose 2 DROP; Start 08/13/16 at 09:00 Metoprolol Tartrate (Lopressor) 50 mg BID NGT Last administered on 08/30/16 09 :55; Admin Dose 50 MG; Start 08/15/16 at 21:00 Amiodarone HCl (Cordarone) 200 mg DAILY NGT Last administered on 08/30/16 09: 53; Admin Dose 200 MG; Start 08/18/16 at 09:00 Lansoprazole (Prevacid) 30 mg DAILY@06 NGT Last administered on 08/30/16 06:09 ; Admin Dose 30 MG; Start 08/18/16 at 06:00 Insulin Aspart (Novolog Insulin Pen) NOVOLOG *MODERATE* ALGORI... Q6 SC Last administered on 08/30/16 06:38; Admin Dose 2 UNIT; Start 08/19/16 at 00:00 Zinc Oxide (Desitin) 1 applic PRN PRN TOP RASH Last administered on 08/28/16 06:26; Admin Dose 1 APPLIC; Start 08/21/16 at 17:30 Sodium Bicarbonate (Sodium Bicarbonate Tab) 650 mg Q8 NGT Last administered on 08/30/16 06:09; Admin Dose 650 MG; Start 08/22/16 at 22:00 Insulin Human NPH (Humulin N) 44 unit SC Last administered on 09:57; Admin Dose 44 UNIT; Start 08/23/16 at 17:00 Warfarin Sodium (Coumadin) 5 mg DAILY@17 GTB Last administered on 08/29/16 17: 41; Admin Dose 5 MG; Start 08/27/16 at 17:00 Epoetin Eloy (Epogen (Esrd)) 10,000 units MoWeFr@17 SC Last administered on 19:28; Admin Dose 10,000 UNITS; Start 08/29/16 at 17:00 Levetiracetam (Keppra Liquid) 1,000 mg BID GTB Last administered on 08/30/16t 09:54; Admin Dose 1,000 MG; Start 08/29/16 at 21:00 CARPI CHAPA Aug 30, 2016 11:29
--- NOTE | 2016-08-30 12:28 | CONS ---
Date/Time of Note Date/Time of Note DATE: 08/30/16 TIME: 12:26 Assessment/Plan Assessment/Plan Additional Assessment/Plan Ventilator settings; AC of 16, tidal volume 650, PEEP of 5, 30% FiO2. Assessment and recommendations; 1. Patient admitted with sepsis with marked interval improvement. Patient off antibiotics now. 2. Stable seizure disorder. 3. Stable diabetes. 4. Stable hypertension. 5. Stable seizure disorder. 6. Patient developed mild paratracheal bleed several days ago with complete interval resolution. Continue current supportive care. Patient awaiting discharge. Prognosis remains poor. Consultation Date/Type/Reason Admit Date/Time Jul 27, 2016 at 23:29 Initial Consult Date 07/28/16 Type of Consultation: Pulmonary Referring Provider: BARNEY MCKEE 24 HR Interval Summary Free Text/Dictation Patient's condition is stable. Has remained hemodynamically stable. Remains completely unresponsive due to underlying anoxic encephalopathy. General examination; elderly male, on ventilator via tracheostomy currently in no distress. Remains unresponsive. Exam/Review of Systems Vital Signs Vitals Vital Signs Date Time Temp Pulse Resp B/P Pulse Ox O2 Delivery O2 Flow Rate FiO2 08/30/16 11:50 92 16 98 35 08/30/16 11:18 99.7 129/68 Intake and Output 08/29/16 08/29/16 08/30/16 15:00 23:00 07:00 Intake Total 400 ml 460 ml Output Total 5400 ml Balance -5000 ml 460 ml Exam HEENT examination; supple neck, no JVD. No lymphadenopathy. Patient is edentulous. Tracheostomy in place with clean insertion site. It was a small bilaterally. Chest examination; clear to auscultation bilaterally. S1-S2 audible, no murmurs. Regular rhythm. Abdomen examination; soft, nondistended. No organomegaly. Bowel sounds audible. Extremity examination; no peripheral edema. [employer] examination; patient remains completely unresponsive. Results Result Diagram: 08/30/16 0615 08/30/16 0615 Results 24 hrs Laboratory Tests Test 08/29/16 17:39 08/30/16 00:19 08/30/16 06:15 08/30/16 06:19 Bedside Glucose 162 145 170 Alanine Aminotransferase (ALT/SGPT) 37 Albumin 3.3 Albumin/Globulin Ratio 0.71 Alkaline Phosphatase 95 Anion Gap 25 H Aspartate Amino Transf (AST/SGOT) 61 H Basophils # 0.1 Basophils % 0.4 Blood Urea Nitrogen 97 #H Calcium Level 9.0 Carbon Dioxide Level 26 Chloride Level 97 Creatinine 5.32 H Direct Bilirubin 0.00 Eosinophils # 0.4 Eosinophils % 2.7 Globulin 4.60 H Glucose Level 163 Hematocrit 25.7 L Hemoglobin 7.9 L INR International Normalized Ratio 2.32 Indirect Bilirubin 0.0 Lymphocytes # 2.1 Lymphocytes % 13.2 L Mean Corpuscular Hemoglobin 31.2 Mean Corpuscular Hemoglobin Concent 30.7 L Mean Corpuscular Volume 101.6 H Mean Platelet Volume 9.9 Monocytes # 1.6 H Monocytes % 10.0 Neutrophils # 10.4 H Neutrophils % 66.7 Nucleated Red Blood Cells # 0.0 Nucleated Red Blood Cells % 0.0 Platelet Count 263 Potassium Level 4.5 Prothrombin Time 25.7 H Prothrombin Time Ratio 2.0 Red Blood Count 2.53 L Red Cell Distribution Width 15.1 H Sodium Level 143 Total Bilirubin 0.0 L Total Protein 7.9 White Blood Count 15.7 H Medications Medications Current Medications Labetalol HCl (Labetalol) 10 mg Q6H PRN IV sbp > 160 Last administered on 18:33; Admin Dose 10 MG; Start 07/28/16 at 00:30 Acetaminophen (Tylenol Supp) 650 mg Q6H PRN [place] PAIN AND OR ELEVATED TEMP Last administered on 07/31/16 17:30; Admin Dose 650 MG; Start 07/28/16 at 08:30 Miscellaneous Information 1 ea NOTE XX ; Start 07/28/16 at 09:00 Glucose (Glutose) 15 gm Q15M PRN PO DECREASED GLUCOSE; Start 07/28/16 at 09:00 Glucose (Glutose) 22.5 gm Q15M PRN PO DECREASED GLUCOSE; Start 07/28/16 at 09: 00 Dextrose (D50w Syringe) 25 ml Q15M PRN IV DECREASED GLUCOSE; Start 07/28/16 at 09:00 Dextrose (D50w Syringe) 50 ml Q15M PRN IV DECREASED GLUCOSE; Start 07/28/16 at 09:00 Glucagon (Glucagen) 1 mg Q15M PRN IM DECREASED GLUCOSE; Start 07/28/16 at 09:00 Glucose (Glutose) 15 gm Q15M PRN BUCCAL DECREASED GLUCOSE; Start 07/28/16 at 09 :00 IV Flush (NS 10 ml) 10 ml PRN PRN IV IV PROTOCOL; Start 07/29/16 at 17:00 Morphine Sulfate (morphine) 2 mg Q4 PRN IV PAIN Last administered on 08/12/16 23:38; Admin Dose 2 MG; Start 07/31/16 at 12:00 Lorazepam (Ativan) 1 mg Q1H PRN IV SEIZURES Last administered on 08/11/16 12:25 ; Admin Dose 1 MG; Start 08/02/16 at 02:00 Acetaminophen (Tylenol Liquid) 650 mg Q4H PRN NGT PAIN AND OR ELEVATED TEMP Last administered on 08/30/16 04:47; Admin Dose 650 MG; Start 08/03/16 at 00:00 Calcium Acetate (Phoslo) 667 mg Q6 NGT Last administered on 08/30/16 06:08; Admin Dose 667 MG; Start 08/05/16 at 08:30 Hydralazine HCl (Apresoline) 10 mg Q4H PRN IV ELEVATED SYSTOLIC BP Last administered on 08/28/16 06:28; Admin Dose 10 MG; Start 08/06/16 at 01:30 Eye Lubricant (Artificial Tears Oph) 2 drop TID BOTH EYES Last administered on 08/30/16 09:53; Admin Dose 2 DROP; Start 08/13/16 at 09:00 Metoprolol Tartrate (Lopressor) 50 mg BID NGT Last administered on 08/30/16 09 :55; Admin Dose 50 MG; Start 08/15/16 at 21:00 Amiodarone HCl (Cordarone) 200 mg DAILY NGT Last administered on 08/30/16 09: 53; Admin Dose 200 MG; Start 08/18/16 at 09:00 Lansoprazole (Prevacid) 30 mg DAILY@06 NGT Last administered on 08/30/16 06:09 ; Admin Dose 30 MG; Start 08/18/16 at 06:00 Insulin Aspart (Novolog Insulin Pen) NOVOLOG *MODERATE* ALGORI... Q6 SC Last administered on 08/30/16 06:38; Admin Dose 2 UNIT; Start 08/19/16 at 00:00 Zinc Oxide (Desitin) 1 applic PRN PRN TOP RASH Last administered on 08/28/16 06:26; Admin Dose 1 APPLIC; Start 08/21/16 at 17:30 Sodium Bicarbonate (Sodium Bicarbonate Tab) 650 mg Q8 NGT Last administered on 08/30/16 06:09; Admin Dose 650 MG; Start 08/22/16 at 22:00 Insulin Human NPH (Humulin N) 44 unit , SC Last administered on 09:57; Admin Dose 44 UNIT; Start 08/23/16 at 17:00 Warfarin Sodium (Coumadin) 5 mg DAILY@17 GTB Last administered on 08/29/16 17: 41; Admin Dose 5 MG; Start 08/27/16 at 17:00 Epoetin Eloy (Epogen (Esrd)) 10,000 units MoWeFr@17 SC Last administered on 19:28; Admin Dose 10,000 UNITS; Start 08/29/16 at 17:00 Levetiracetam (Keppra Liquid) 1,000 mg BID GTB Last administered on 08/30/16 09:54; Admin Dose 1,000 MG; Start 08/29/16 at 21:00 AMOR RODRIGUES Aug 30, 2016 12:28
[2016-08-30] MEDS: WARFARIN 5 MG TAB GTB SCH (17:37)
[2016-08-31] VITALS (23 sets, daily range): BP systolic 91–154; BP diastolic 57–73; PULSE 93–108; RESP 16–17
[2016-08-31] MEDS: CALCIUM ACETATE 667 MG CAP NGT SCH ×4 (00:49→18:14)
[2016-08-31] MEDS: NPH, HUMAN INSULIN ISOPHANE 3ML VIAL SC SCH ×3 (01:00→18:19)
[2016-08-31] MEDS: INSULIN ASPART [NOVOLOG] 3 ML PEN SC SCH ×4 (01:01→18:00)
[2016-08-31] MEDS: IPRATROPIUM (HFA) 12.9 GM INHALER INH SCH ×6 (01:13→20:32)
[2016-08-31] MEDS: ALBUTEROL HFA 8 GM INHALER INH SCH ×6 (01:14→20:32)
[2016-08-31] MEDS: NA BICARBONATE 650 MG TAB NGT SCH ×3 (05:33→21:48)
[2016-08-31] MEDS: LANSOPRAZOLE 30 MG CAP NGT SCH (05:33)
[2016-08-31 06:28] LABS: INR 2.28; PROTIME 25.4 Sec (12.2-14.2)
[2016-08-31 06:46] LABS: ALBUMIN 3.1 g/dl (3.3-4.9); POTASSIUM 3.7 mmol/L (3.5-5.1)
[2016-08-31 06:48] LABS: CREATININE 3.82 mg/dl (0.61-1.24)
[2016-08-31 06:49] LABS: ALBUMIN/GLOBULIN RATIO 0.72; CALCIUM 8.7 mg/dl (8.4-10.2); TOTAL PROTEIN 7.4 g/dl (6.1-8.1)
--- NOTE | 2016-08-31 08:27 | CONS ---
Date/Time of Note Date/Time of Note DATE: 08/31/16 TIME: 08:24 Assessment/Plan Assessment/Plan Chief Complaint/Hosp Course #1 end-stage renal disease . He has hemodialysis ordered for tomorrow . His BUN is in good range . #2 the patient is status post a cardiac arrest at home #3 altered level of consciousness, probable anoxic encephalopathy. #4 insulin-dependent diabetes mellitus #5 seizures #6 ventilator dependent respiratory failure , h/o COPD. #7 hyperphosphatemia , calcium acetate is being given . #8 new onset A fib , he was cardioverted and now is on warfarin . #9 dietary consult ordered , will continue tube feeding rate at 30 cc/hr . #10 anemia , on Epogen Problems: Consultation Date/Type/Reason Admit Date/Time Jul 27, 2016 at 23:29 Initial Consult Date 07/28/16 Type of Consultation: Pulmonary Referring Provider: BARNEY MCKEE 24 HR Interval Summary Free Text/Dictation He is unresponsive on a ventilator Subjective hx not possible: pt non-verbal Exam/Review of Systems Vital Signs Vitals Vital Signs Date Time Temp Pulse Resp B/P Pulse Ox O2 Delivery O2 Flow Rate FiO2 08/31/16 08:18 106 08/31/16 07:21 99.9 16 101/58 96 08/31/16 05:09 30 Intake and Output 08/30/16 08/30/16 08/31/16 15:00 23:00 07:00 Intake Total 1210 ml 306 ml Output Total 1500 ml 0 ml Balance -290 ml 306 ml Exam Constitutional: non-verbal Respiratory: clear to auscultation, diminished breath sounds Cardiovascular: regular rate and rhythm Gastrointestinal: soft Musculoskeletal: nl extremities to inspection Results Result Diagram: 08/30/16 0615 08/31/16 0540 Results 24 hrs Laboratory Tests Test 08/30/16 12:00 08/30/16 12:29 08/30/16 17:35 08/31/16 00:51 Stool Occult Blood NEGATIVE Bedside Glucose 168 180 150 Test 08/31/16 05:40 08/31/16 05:51 Alanine Aminotransferase (ALT/SGPT) 44 Albumin 3.1 L Albumin/Globulin Ratio 0.72 Alkaline Phosphatase 103 Anion Gap 17 #H Aspartate Amino Transf (AST/SGOT) 69 H Blood Urea Nitrogen 53 #H Calcium Level 8.7 Carbon Dioxide Level 32 H Chloride Level 95 L Creatinine 3.82 #H Direct Bilirubin 0.00 Globulin 4.30 H Glucose Level 147 INR International Normalized Ratio 2.28 Indirect Bilirubin 0.0 Potassium Level 3.7 Prothrombin Time 25.4 H Prothrombin Time Ratio 2.0 Sodium Level 140 Total Bilirubin 0.0 L Total Protein 7.4 Bedside Glucose 147 Medications Medications Current Medications Labetalol HCl (Labetalol) 10 mg Q6H PRN IV sbp > 160 Last administered on 18:33; Admin Dose 10 MG; Start 07/28/16 at 00:30 Acetaminophen (Tylenol Supp) 650 mg Q6H PRN [place] PAIN AND OR ELEVATED TEMP Last administered on 07/31/16 17:30; Admin Dose 650 MG; Start 07/28/16 at 08:30 Miscellaneous Information 1 ea NOTE XX ; Start 07/28/16 at 09:00 Glucose (Glutose) 15 gm Q15M PRN PO DECREASED GLUCOSE; Start 07/28/16 at 09:00 Glucose (Glutose) 22.5 gm Q15M PRN PO DECREASED GLUCOSE; Start 07/28/16 at 09: 00 Dextrose (D50w Syringe) 25 ml Q15M PRN IV DECREASED GLUCOSE; Start 07/28/16 at 09:00 Dextrose (D50w Syringe) 50 ml Q15M PRN IV DECREASED GLUCOSE; Start 07/28/16 at 09:00 Glucagon (Glucagen) 1 mg Q15M PRN IM DECREASED GLUCOSE; Start 07/28/16 at 09:00 Glucose (Glutose) 15 gm Q15M PRN BUCCAL DECREASED GLUCOSE; Start 07/28/16 at 09 :00 IV Flush (NS 10 ml) 10 ml PRN PRN IV IV PROTOCOL; Start 07/29/16 at 17:00 Morphine Sulfate (morphine) 2 mg Q4 PRN IV PAIN Last administered on 08/12/16 23:38; Admin Dose 2 MG; Start 07/31/16 at 12:00 Lorazepam (Ativan) 1 mg Q1H PRN IV SEIZURES Last administered on 08/11/16 12:25 ; Admin Dose 1 MG; Start 08/02/16 at 02:00 Acetaminophen (Tylenol Liquid) 650 mg Q4H PRN NGT PAIN AND OR ELEVATED TEMP Last administered on 08/30/16 18:21; Admin Dose 650 MG; Start 08/03/16 at 00:00 Calcium Acetate (Phoslo) 667 mg Q6 NGT Last administered on 08/31/16 05:33; Admin Dose 667 MG; Start 08/05/16 at 08:30 Hydralazine HCl (Apresoline) 10 mg Q4H PRN IV ELEVATED SYSTOLIC BP Last administered on 08/28/16 06:28; Admin Dose 10 MG; Start 08/06/16 at 01:30 Eye Lubricant (Artificial Tears Oph) 2 drop TID BOTH EYES Last administered on 08/30/16 21:11; Admin Dose 2 DROP; Start 08/13/16 at 09:00 Metoprolol Tartrate (Lopressor) 50 mg BID NGT Last administered on 08/30/16 21 :11; Admin Dose 50 MG; Start 08/15/16 at 21:00 Amiodarone HCl (Cordarone) 200 mg DAILY NGT Last administered on 08/30/16 09: 53; Admin Dose 200 MG; Start 08/18/16 at 09:00 Lansoprazole (Prevacid) 30 mg DAILY@06 NGT Last administered on 08/31/16 05:33 ; Admin Dose 30 MG; Start 08/18/16 at 06:00 Insulin Aspart (Novolog Insulin Pen) NOVOLOG *MODERATE* ALGORI... Q6 SC Last administered on 08/31/16 05:58; Admin Dose 2 UNIT; Start 08/19/16 at 00:00 Zinc Oxide (Desitin) 1 applic PRN PRN TOP RASH Last administered on 08/28/16 06:26; Admin Dose 1 APPLIC; Start 08/21/16 at 17:30 Sodium Bicarbonate (Sodium Bicarbonate Tab) 650 mg Q8 NGT Last administered on 08/31/16 05:33; Admin Dose 650 MG; Start 08/22/16 at 22:00 Insulin Human NPH (Humulin N) 44 unit ,, SC Last administered on 01:00; Admin Dose 44 UNIT; Start 08/23/16 at 17:00 Warfarin Sodium (Coumadin) 5 mg DAILY@17 GTB Last administered on 08/30/16 17: 37; Admin Dose 5 MG; Start 08/27/16 at 17:00 Epoetin Eloy (Epogen (Esrd)) 10,000 units MoWeFr@17 SC Last administered on 19:28; Admin Dose 10,000 UNITS; Start 08/29/16 at 17:00 Levetiracetam (Keppra Liquid) 1,000 mg BID GTB Last administered on 08/30/16 21:10; Admin Dose 1,000 MG; Start 08/29/16 at 21:00 ROSCOE LANGE MD Aug 31, 2016 08:27
[2016-08-31] MEDS: ARFORMOTEROL TARTRATE 15MCG/2 ML AMP NEB SCH ×2 (09:00→20:00)
[2016-08-31] MEDS: METOPROLOL 50 MG TAB NGT SCH ×2 (09:00→20:29)
[2016-08-31] MEDS: ARTIFICIAL TEARS 15 ML OPH BOTH EYES SCH ×3 (09:13→20:30)
[2016-08-31] MEDS: LEVETIRACETAM (100 MG/ML) 5ML CUP GTB SCH ×2 (09:13→20:30)
[2016-08-31] MEDS: AMIODARONE 200 MG TAB NGT SCH (09:13)
[2016-08-31] MEDS: BUDESONIDE (NEB) 0.5MG/2ML AMP HHN SCH ×2 (09:39→20:32)
--- NOTE | 2016-08-31 12:10 | PN ---
Date/Time of Note Date/Time of Note DATE: 08/31/16 TIME: 12:07 Assessment/Plan VTE Prophylaxis VTE Prophylaxis Intervention: other (Coumadin) Lines/Catheters IV [facility]ter Type (from [facility]): PICC Line Central line still needed: Yes Urinary Cath still in place: No Assessment/Plan Chief Complaint/Hosp Course A/P: 56 M with: 1. Status post cardiac arrest secondary to PEA. Status post trach and PEG. Family hesitant on changing the code status. 2. Acute respiratory failure, hypoxic. - Continue ventilator management as per pulmonary. - Continue inhaled bronchodilators. 3. End-stage renal disease on hemodialysis. - Continue hemodialysis as per nephrology. - epogen 4. Status post systemic inflammatory response syndrome. Status post antibiotics. - monitor, fevers likely central in origin 5. Paroxysmal atrial fibrillation with rapid ventricular response. Currently in sinus rhythm. - continue amiodarone and metoprolol. - continue warfarin for stroke prophylaxis. 6. Type 2 diabetes mellitus. Hemoglobin A1c 7.3. - Continue insulin sliding scale along with Lantus insulin. 7. Essential hypertension. - Continue antihypertensives. 8. Seizure disorder. Most probably secondary to anoxia. - Continue anticonvulsants. 9. Possible underlying anoxic encephalopathy. Brain MRI showing a single focus of restricted diffusion in the left superior frontal lobe at the level of the precentral gyrus compatible with acute/subacute ischemic infarct. - monitor for now 10. Normocytic normochromic anemia, most probably anemia of chronic kidney disease. - Will monitor H and H closely, on epogen as well 11. Fluid, electrolytes and nutrition. - Continue G-tube feedings. 12. Deep venous thrombosis prophylaxis. On warfarin. 13. Gastrointestinal prophylaxis. Proton pump inhibitors. PLAN: Continue inpatient care. The patient's fevers could be neurogenic in origin. All the cultures have been negative. Holding valproic acid because of high serum levels. Await placement to a [place] [facility] facility. I spoke with [facility] medical transcriptionist to discuss pt's difficulty in placement due to ESRD on HD , + Hep B, PEA/anoxic brain injury, and trach dependent res failure - they will assist in possible placement of pt to appropriate healthcare facility. Problems: Subjective 24 Hr Interval Summary Free Text/Dictation Pt had no acute events overnight. Exam/Review of Systems Vital Signs Vitals Vital Signs Date Time Temp Pulse Resp B/P Pulse Ox O2 Delivery O2 Flow Rate FiO2 08/31/16 11:24 99.8 110 16 116/60 97 08/31/16 09:43 30 Intake and Output 08/30/16 08/30/16 08/31/16 15:00 23:00 07:00 Intake Total 1210 ml 306 ml Output Total 1500 ml 0 ml Balance -290 ml 306 ml Exam GENERAL: lying in bed with tracheostomy to vent, in no apparent distress. HEENT: Head normocephalic and atraumatic. Eyes: Anicteric sclerae. Conjunctivae clear. ENT: Nasal septum Oral mucosa is dry. NECK: Supple. Tracheostomy midline. RESPIRATORY: less Bilateral diminished breath sounds. Tracheostomy connected to mechanical ventilator. CARDIAC: Regular rate and rhythm. No obvious murmurs heard. ABDOMEN: Soft, nontender and nondistended. Left upper quadrant G-tube in place. EXTREMITIES: No cyanosis, no clubbing, no edema. Peripheral pulses are palpable. NEUROLOGIC: The patient is obtunded. Opens eyes. Does not follow any commands. Results Result Diagram: 08/30/16 0615 08/31/16 0540 Results 24 hrs Laboratory Tests Test 08/30/16 12:29 08/30/16 17:35 08/31/16 00:51 08/31/16 05:40 Bedside Glucose 168 180 150 Alanine Aminotransferase (ALT/SGPT) 44 Albumin 3.1 L Albumin/Globulin Ratio 0.72 Alkaline Phosphatase 103 Anion Gap 17 #H Aspartate Amino Transf (AST/SGOT) 69 H Blood Urea Nitrogen 53 #H Calcium Level 8.7 Carbon Dioxide Level 32 H Chloride Level 95 L Creatinine 3.82 #H Direct Bilirubin 0.00 Globulin 4.30 H Glucose Level 147 INR International Normalized Ratio 2.28 Indirect Bilirubin 0.0 Potassium Level 3.7 Prothrombin Time 25.4 H Prothrombin Time Ratio 2.0 Sodium Level 140 Total Bilirubin 0.0 L Total Protein 7.4 Test 08/31/16 05:51 08/31/16 09:11 08/31/16 11:29 Bedside Glucose 147 162 173 Medications Medications Current Medications Labetalol HCl (Labetalol) 10 mg Q6H PRN IV sbp > 160 Last administered on t 18:33; Admin Dose 10 MG; Start 07/28/16 at 00:30 Acetaminophen (Tylenol Supp) 650 mg Q6H PRN [place] PAIN AND OR ELEVATED TEMP Last administered on 07/31/16 17:30; Admin Dose 650 MG; Start 07/28/16 at 08:30 Miscellaneous Information 1 ea NOTE XX ; Start 07/28/16 at 09:00 Glucose (Glutose) 15 gm Q15M PRN PO DECREASED GLUCOSE; Start 07/28/16 at 09:00 Glucose (Glutose) 22.5 gm Q15M PRN PO DECREASED GLUCOSE; Start 07/28/16 at 09: 00 Dextrose (D50w Syringe) 25 ml Q15M PRN IV DECREASED GLUCOSE; Start 07/28/16 at 09:00 Dextrose (D50w Syringe) 50 ml Q15M PRN IV DECREASED GLUCOSE; Start 07/28/16 at 09:00 Glucagon (Glucagen) 1 mg Q15M PRN IM DECREASED GLUCOSE; Start 07/28/16 at 09:00 Glucose (Glutose) 15 gm Q15M PRN BUCCAL DECREASED GLUCOSE; Start 07/28/16 at 09 :00 IV Flush (NS 10 ml) 10 ml PRN PRN IV IV PROTOCOL; Start 07/29/16 at 17:00 Morphine Sulfate (morphine) 2 mg Q4 PRN IV PAIN Last administered on 08/12/16 23:38; Admin Dose 2 MG; Start 07/31/16 at 12:00 Lorazepam (Ativan) 1 mg Q1H PRN IV SEIZURES Last administered on 08/11/16 12:25 ; Admin Dose 1 MG; Start 08/02/16 at 02:00 Acetaminophen (Tylenol Liquid) 650 mg Q4H PRN NGT PAIN AND OR ELEVATED TEMP Last administered on 08/30/16 18:21; Admin Dose 650 MG; Start 08/03/16 at 00:00 Calcium Acetate (Phoslo) 667 mg Q6 NGT Last administered on 08/31/16 11:35; Admin Dose 667 MG; Start 08/05/16 at 08:30 Hydralazine HCl (Apresoline) 10 mg Q4H PRN IV ELEVATED SYSTOLIC BP Last administered on 08/28/16 06:28; Admin Dose 10 MG; Start 08/06/16 at 01:30 Eye Lubricant (Artificial Tears Oph) 2 drop TID BOTH EYES Last administered on 08/31/16 09:13; Admin Dose 2 DROP; Start 08/13/16 at 09:00 Metoprolol Tartrate (Lopressor) 50 mg BID NGT Last administered on 08/30/16 21 :11; Admin Dose 50 MG; Start 08/15/16 at 21:00 Amiodarone HCl (Cordarone) 200 mg DAILY NGT Last administered on 08/31/16 09:13 ; Admin Dose 200 MG; Start 08/18/16 at 09:00 Lansoprazole (Prevacid) 30 mg DAILY@06 NGT Last administered on 08/31/16 05:33 ; Admin Dose 30 MG; Start 08/18/16 at 06:00 Insulin Aspart (Novolog Insulin Pen) NOVOLOG *MODERATE* ALGORI... Q6 SC Last administered on 08/31/16 11:40; Admin Dose 2 UNIT; Start 08/19/16 at 00:00 Zinc Oxide (Desitin) 1 applic PRN PRN TOP RASH Last administered on 08/28/16 06:26; Admin Dose 1 APPLIC; Start 08/21/16 at 17:30 Sodium Bicarbonate (Sodium Bicarbonate Tab) 650 mg Q8 NGT Last administered on 08/31/16 05:33; Admin Dose 650 MG; Start 08/22/16 at 22:00 Insulin Human NPH (Humulin N) 44 unit SC Last administered on 09:17; Admin Dose 44 UNIT; Start 08/23/16 at 17:00 Warfarin Sodium (Coumadin) 5 mg DAILY@17 GTB Last administered on 08/30/16 17: 37; Admin Dose 5 MG; Start 08/27/16 at 17:00 Epoetin Eloy (Epogen (Esrd)) 10,000 units MoWeFr@17 SC Last administered on 19:28; Admin Dose 10,000 UNITS; Start 08/29/16 at 17:00 Levetiracetam (Keppra Liquid) 1,000 mg BID GTB Last administered on 08/31/16 09 :13; Admin Dose 1,000 MG; Start 08/29/16 at 21:00 CAPRI CHAPA Aug 31, 2016 12:10
--- NOTE | 2016-08-31 12:20 | CONS ---
Date/Time of Note Date/Time of Note DATE: 08/31/16 TIME: 12:18 Assessment/Plan Assessment/Plan Additional Assessment/Plan Ventilator settings; AC of 16, tidal volume 650, PEEP of 5, 30% FiO2. Assessment recommendations; 1. Patient admitted with sepsis doing very well now off antibiotics. 2. End-stage renal disease on hemodialysis. 3. History of seizure disorder. 4. History of hypertension. 5. History of diabetes. Continue current treatment for now patient awaiting discharge. Consultation Date/Type/Reason Admit Date/Time Jul 27, 2016 at 23:29 Initial Consult Date 07/28/16 Type of Consultation: Pulmonary Referring Provider: BARNEY MCKEE 24 HR Interval Summary Free Text/Dictation Patient condition is stable. Has remained seizure-free. Also has remained hemodynamically stable. General examination; middle-aged man, on ventilator via tracheostomy currently in no distress. Patient remains unresponsive on account of severe anoxic encephalopathy. Exam/Review of Systems Vital Signs Vitals Vital Signs Date Time Temp Pulse Resp B/P Pulse Ox O2 Delivery O2 Flow Rate FiO2 08/31/16 11:24 99.8 110 16 116/60 97 08/31/16 09:43 30 Intake and Output 08/30/16 08/30/16 08/31/16 15:00 23:00 07:00 Intake Total 1210 ml 306 ml Output Total 1500 ml 0 ml Balance -290 ml 306 ml Exam H EENT examination; supple neck, no JVD. No lymphadenopathy. Midline trachea. Tracheostomy in place with clean insertion site. She is edentulous. Pupils are midsize. Chest examination; clear to auscultation bilaterally. S1-S2 audible, no murmurs. Regular rhythm. Abdomen examination; soft, nondistended. No organomegaly. Bowel sounds audible. Extremity examination; no peripheral edema. 1+ bilaterally. OPERATIONS PROCESSOR examination; patient remains unresponsive. Results Result Diagram: 08/30/16 0615 08/31/16 0540 Results 24 hrs Laboratory Tests Test 08/30/16 12:29 08/30/16 17:35 08/31/16 00:51 08/31/16 05:40 Bedside Glucose 168 180 150 Alanine Aminotransferase (ALT/SGPT) 44 Albumin 3.1 L Albumin/Globulin Ratio 0.72 Alkaline Phosphatase 103 Anion Gap 17 #H Aspartate Amino Transf (AST/SGOT) 69 H Blood Urea Nitrogen 53 #H Calcium Level 8.7 Carbon Dioxide Level 32 H Chloride Level 95 L Creatinine 3.82 #H Direct Bilirubin 0.00 Globulin 4.30 H Glucose Level 147 INR International Normalized Ratio 2.28 Indirect Bilirubin 0.0 Potassium Level 3.7 Prothrombin Time 25.4 H Prothrombin Time Ratio 2.0 Sodium Level 140 Total Bilirubin 0.0 L Total Protein 7.4 Test 08/31/16 05:51 08/31/16 09:11 08/31/16 11:29 Bedside Glucose 147 162 173 Medications Medications Current Medications Labetalol HCl (Labetalol) 10 mg Q6H PRN IV sbp > 160 Last administered on 18:33; Admin Dose 10 MG; Start 07/28/16 at 00:30 Acetaminophen (Tylenol Supp) 650 mg Q6H PRN [place] PAIN AND OR ELEVATED TEMP Last administered on 07/31/16 17:30; Admin Dose 650 MG; Start 07/28/16 at 08:30 Miscellaneous Information 1 ea NOTE XX ; Start 07/28/16 at 09:00 Glucose (Glutose) 15 gm Q15M PRN PO DECREASED GLUCOSE; Start 07/28/16 at 09:00 Glucose (Glutose) 22.5 gm Q15M PRN PO DECREASED GLUCOSE; Start 07/28/16 at 09: 00 Dextrose (D50w Syringe) 25 ml Q15M PRN IV DECREASED GLUCOSE; Start 07/28/16 at 09:00 Dextrose (D50w Syringe) 50 ml Q15M PRN IV DECREASED GLUCOSE; Start 07/28/16 at 09:00 Glucagon (Glucagen) 1 mg Q15M PRN IM DECREASED GLUCOSE; Start 07/28/16 at 09:00 Glucose (Glutose) 15 gm Q15M PRN BUCCAL DECREASED GLUCOSE; Start 07/28/16 at 09 :00 IV Flush (NS 10 ml) 10 ml PRN PRN IV IV PROTOCOL; Start 07/29/16 at 17:00 Morphine Sulfate (morphine) 2 mg Q4 PRN IV PAIN Last administered on 08/12/16 23:38; Admin Dose 2 MG; Start 07/31/16 at 12:00 Lorazepam (Ativan) 1 mg Q1H PRN IV SEIZURES Last administered on 08/11/16 12:25 ; Admin Dose 1 MG; Start 08/02/16 at 02:00 Acetaminophen (Tylenol Liquid) 650 mg Q4H PRN NGT PAIN AND OR ELEVATED TEMP Last administered on 08/30/16 18:21; Admin Dose 650 MG; Start 08/03/16 at 00:00 Calcium Acetate (Phoslo) 667 mg Q6 NGT Last administered on 08/31/16 11:35; Admin Dose 667 MG; Start 08/05/16 at 08:30 Hydralazine HCl (Apresoline) 10 mg Q4H PRN IV ELEVATED SYSTOLIC BP Last administered on 08/28/16 06:28; Admin Dose 10 MG; Start 08/06/16 at 01:30 Eye Lubricant (Artificial Tears Oph) 2 drop TID BOTH EYES Last administered on 08/31/16 09:13; Admin Dose 2 DROP; Start 08/13/16 at 09:00 Metoprolol Tartrate (Lopressor) 50 mg BID NGT Last administered on 08/30/16 21 :11; Admin Dose 50 MG; Start 08/15/16 at 21:00 Amiodarone HCl (Cordarone) 200 mg DAILY NGT Last administered on 08/31/16 09:13 ; Admin Dose 200 MG; Start 08/18/16 at 09:00 Lansoprazole (Prevacid) 30 mg DAILY@06 NGT Last administered on 08/31/16 05:33 ; Admin Dose 30 MG; Start 08/18/16 at 06:00 Insulin Aspart (Novolog Insulin Pen) NOVOLOG *MODERATE* ALGORI... Q6 SC Last administered on 08/31/16 11:40; Admin Dose 2 UNIT; Start 08/19/16 at 00:00 Zinc Oxide (Desitin) 1 applic PRN PRN TOP RASH Last administered on 08/28/16 06:26; Admin Dose 1 APPLIC; Start 08/21/16 at 17:30 Sodium Bicarbonate (Sodium Bicarbonate Tab) 650 mg Q8 NGT Last administered on 08/31/16 05:33; Admin Dose 650 MG; Start 08/22/16 at 22:00 Insulin Human NPH (Humulin N) 44 unit ,, SC Last administered on 09:17; Admin Dose 44 UNIT; Start 08/23/16 at 17:00 Warfarin Sodium (Coumadin) 5 mg DAILY@17 GTB Last administered on 08/30/16 17: 37; Admin Dose 5 MG; Start 08/27/16 at 17:00 Epoetin Eloy (Epogen (Esrd)) 10,000 units MoWeFr@17 SC Last administered on 19:28; Admin Dose 10,000 UNITS; Start 08/29/16 at 17:00 Levetiracetam (Keppra Liquid) 1,000 mg BID GTB Last administered on 08/31/16 09 :13; Admin Dose 1,000 MG; Start 08/29/16 at 21:00 AMOR RODRIGUES Aug 31, 2016 12:20
[2016-08-31] MEDS: WARFARIN 5 MG TAB GTB SCH (18:14)
[2016-08-31] MEDS: EPOETIN 10000 UNITS/1 ML INJ (ESRD) SC SCH (20:37)
[2016-08-31] MEDS: ACETAMINOPHEN 650MG/20.3ML CUP NGT PRN (22:04)
[2016-09-01] VITALS (31 sets, daily range): BP systolic 99–161; BP diastolic 55–82; PULSE 93–125; RESP 16–20
[2016-09-01] MEDS: CALCIUM ACETATE 667 MG CAP NGT SCH ×4 (00:31→17:06)
[2016-09-01] MEDS: INSULIN ASPART [NOVOLOG] 3 ML PEN SC SCH ×4 (00:33→17:17)
[2016-09-01] MEDS: NPH, HUMAN INSULIN ISOPHANE 3ML VIAL SC SCH ×3 (00:35→17:18)
[2016-09-01] MEDS: IPRATROPIUM (HFA) 12.9 GM INHALER INH SCH ×6 (01:26→21:26)
[2016-09-01] MEDS: ALBUTEROL HFA 8 GM INHALER INH SCH ×6 (01:26→21:26)
[2016-09-01] MEDS: ACETAMINOPHEN 650MG/20.3ML CUP NGT PRN ×3 (02:35→20:26)
[2016-09-01] MEDS: LANSOPRAZOLE 30 MG CAP NGT SCH (06:21)
[2016-09-01] MEDS: NA BICARBONATE 650 MG TAB NGT SCH ×3 (06:21→22:21)
[2016-09-01 07:09] LABS: ALBUMIN 3.1 g/dl (3.3-4.9)
[2016-09-01 07:12] LABS: ALBUMIN/GLOBULIN RATIO 0.67; BILIRUBIN,INDIRECT 0.1 mg/dl (0-1.1); CALCIUM 8.8 mg/dl (8.4-10.2); TOTAL PROTEIN 7.7 g/dl (6.1-8.1)
[2016-09-01 07:21] LABS: BILIRUBIN,TOTAL 0.1 mg/dl (0.2-1.3)
[2016-09-01] MEDS: METOPROLOL 50 MG TAB NGT SCH ×2 (09:00→20:24)
[2016-09-01] MEDS: ARTIFICIAL TEARS 15 ML OPH BOTH EYES SCH ×3 (09:29→20:25)
[2016-09-01] MEDS: LEVETIRACETAM (100 MG/ML) 5ML CUP GTB SCH ×2 (09:29→20:24)
[2016-09-01] MEDS: AMIODARONE 200 MG TAB NGT SCH (09:30)
--- NOTE | 2016-09-01 10:00 | CONS ---
Date/Time of Note Date/Time of Note DATE: 09/01/16 TIME: 09:58 Assessment/Plan Assessment/Plan Additional Assessment/Plan Ventilator setting AC of 16, tidal volume 650, PEEP of 5, 30% FiO2. Assessment recommendations; 1. Patient admitted for pneumonia and sepsis with marked interval improvement. 2. End-stage renal disease, on hemodialysis. 3. History of seizure disorder. Seizure activity witnessed during his hospital stay. 4. Hypertension. Next 5. Diabetes. The current treatment. Patient awaiting transfer to rehab center. Prognosis remains poor. Consultation Date/Type/Reason Admit Date/Time Jul 27, 2016 at 23:29 Initial Consult Date 07/28/16 Type of Consultation: Pulmonary Referring Provider: BARNEY MCKEE 24 HR Interval Summary Free Text/Dictation Patient's condition remains unchanged. Has remained hemodynamically stable. Remains completely unresponsive. Remains ventilator dependent. General examination; elderly male, on ventilator via tracheostomy unresponsive currently in no distress. Exam/Review of Systems Vital Signs Vitals Vital Signs Date Time Temp Pulse Resp B/P Pulse Ox O2 Delivery O2 Flow Rate FiO2 09/01/16 08:51 100 09/01/16 07:37 98.9 18 161/76 96 09/01/16 07:25 35 Intake and Output 08/31/16 08/31/16 09/01/16 15:00 23:00 07:00 Intake Total 510 ml Output Total 0 ml Balance 510 ml Exam H EENT examination; supple neck, no JVD. No lymphadenopathy. Midline trachea. No thyromegaly. Tracheostomy in place with clean insertion site. Pupils are midsize bilaterally. Vision is edentulous. Chest examination; clear to auscultation bilaterally. S1-S2 audible, no murmurs. Regular rhythm. Abdomen examination; soft, nondistended. No organomegaly. G-tube in place. Bowel sounds audible. Extremity examination; no peripheral edema. PRESS PIPE INSPECTOR examination: patient remains unresponsive. Results Result Diagram: 08/30/16 0615 09/01/16 0620 Results 24 hrs Laboratory Tests Test 08/31/16 11:29 08/31/16 18:13 09/01/16 00:30 09/01/16 06:18 Bedside Glucose 173 109 141 147 Test 09/01/16 06:20 09/01/16 09:38 Alanine Aminotransferase (ALT/SGPT) 47 Albumin 3.1 L Albumin/Globulin Ratio 0.67 Alkaline Phosphatase 106 Anion Gap 21 H Aspartate Amino Transf (AST/SGOT) 64 H Blood Urea Nitrogen 92 #H Calcium Level 8.8 Carbon Dioxide Level 30 Chloride Level 95 L Creatinine Pending Direct Bilirubin 0.00 Globulin 4.60 H Glucose Level 132 Indirect Bilirubin 0.1 Potassium Level 4.0 Sodium Level 142 Total Bilirubin 0.1 L Total Protein 7.7 Bedside Glucose 201 Medications Medications Current Medications Labetalol HCl (Labetalol) 10 mg Q6H PRN IV sbp > 160 Last administered on 18:33; Admin Dose 10 MG; Start 07/28/16 at 00:30 Acetaminophen (Tylenol Supp) 650 mg Q6H PRN [place] PAIN AND OR ELEVATED TEMP Last administered on 07/31/16 17:30; Admin Dose 650 MG; Start 07/28/16 at 08:30 Miscellaneous Information 1 ea NOTE XX ; Start 07/28/16 at 09:00 Glucose (Glutose) 15 gm Q15M PRN PO DECREASED GLUCOSE; Start 07/28/16 at 09:00 Glucose (Glutose) 22.5 gm Q15M PRN PO DECREASED GLUCOSE; Start 07/28/16 at 09: 00 Dextrose (D50w Syringe) 25 ml Q15M PRN IV DECREASED GLUCOSE; Start 07/28/16 at 09:00 Dextrose (D50w Syringe) 50 ml Q15M PRN IV DECREASED GLUCOSE; Start 07/28/16 at 09:00 Glucagon (Glucagen) 1 mg Q15M PRN IM DECREASED GLUCOSE; Start 07/28/16 at 09:00 Glucose (Glutose) 15 gm Q15M PRN BUCCAL DECREASED GLUCOSE; Start 07/28/16 at 09 :00 IV Flush (NS 10 ml) 10 ml PRN PRN IV IV PROTOCOL; Start 07/29/16 at 17:00 Morphine Sulfate (morphine) 2 mg Q4 PRN IV PAIN Last administered on 08/12/16 23:38; Admin Dose 2 MG; Start 07/31/16 at 12:00 Lorazepam (Ativan) 1 mg Q1H PRN IV SEIZURES Last administered on 08/11/16 12:25 ; Admin Dose 1 MG; Start 08/02/16 at 02:00 Acetaminophen (Tylenol Liquid) 650 mg Q4H PRN NGT PAIN AND OR ELEVATED TEMP Last administered on 09/01/16 06:21; Admin Dose 650 MG; Start 08/03/16 at 00:00 Calcium Acetate (Phoslo) 667 mg Q6 NGT Last administered on 09/01/16 06:21; Admin Dose 667 MG; Start 08/05/16 at 08:30 Hydralazine HCl (Apresoline) 10 mg Q4H PRN IV ELEVATED SYSTOLIC BP Last administered on 08/28/16 06:28; Admin Dose 10 MG; Start 08/06/16 at 01:30 Eye Lubricant (Artificial Tears Oph) 2 drop TID BOTH EYES Last administered on 08/31/16 20:30; Admin Dose 2 DROP; Start 08/13/16 at 09:00 Metoprolol Tartrate (Lopressor) 50 mg BID NGT Last administered on 08/31/16 20: 29; Admin Dose 50 MG; Start 08/15/16 at 21:00 Amiodarone HCl (Cordarone) 200 mg DAILY NGT Last administered on 08/31/16 09:13 ; Admin Dose 200 MG; Start 08/18/16 at 09:00 Lansoprazole (Prevacid) 30 mg DAILY@06 NGT Last administered on 09/01/16 06:21 ; Admin Dose 30 MG; Start 08/18/16 at 06:00 Insulin Aspart (Novolog Insulin Pen) NOVOLOG *MODERATE* ALGORI... Q6 SC Last administered on 09/01/16 06:28; Admin Dose 2 UNIT; Start 08/19/16 at 00:00 Zinc Oxide (Desitin) 1 applic PRN PRN TOP RASH Last administered on 08/28/16 06:26; Admin Dose 1 APPLIC; Start 08/21/16 at 17:30 Sodium Bicarbonate (Sodium Bicarbonate Tab) 650 mg Q8 NGT Last administered on 09/01/16 06:21; Admin Dose 650 MG; Start 08/22/16 at 22:00 Insulin Human NPH (Humulin N) 44 unit ,,17 SC Last administered on 00:35; Admin Dose 44 UNIT; Start 08/23/16 at 17:00 Warfarin Sodium (Coumadin) 5 mg DAILY@17 GTB Last administered on 08/31/16 18: 14; Admin Dose 5 MG; Start 08/27/16 at 17:00 Epoetin Eloy (Epogen (Esrd)) 10,000 units MoWeFr@17 SC Last administered on 08/31 20:37; Admin Dose 10,000 UNITS; Start 08/29/16 at 17:00 Levetiracetam (Keppra Liquid) 1,000 mg BID GTB Last administered on 08/31/16 20 :30; Admin Dose 1,000 MG; Start 08/29/16 at 21:00 AMOR RODRIGUES Sep 01, 2016 10:00
[2016-09-01] MEDS: BUDESONIDE (NEB) 0.5MG/2ML AMP HHN SCH ×2 (10:03→19:37)
[2016-09-01] MEDS: ARFORMOTEROL TARTRATE 15MCG/2 ML AMP NEB SCH ×2 (10:06→19:37)
--- NOTE | 2016-09-01 11:08 | CONS ---
Date/Time of Note Date/Time of Note DATE: 09/01/16 TIME: 11:06 Assessment/Plan Assessment/Plan Chief Complaint/Hosp Course #1 end-stage renal disease . He has hemodialysis ordered for today . His BUN is in a better range . #2 the patient is status post a cardiac arrest at home #3 altered level of consciousness, probable anoxic encephalopathy. #4 insulin-dependent diabetes mellitus #5 seizures #6 ventilator dependent respiratory failure , h/o COPD. #7 hyperphosphatemia , calcium acetate is being given . #8 new onset A fib , he was cardioverted and now is on warfarin . #9 dietary consult ordered , will continue tube feeding rate at 30 cc/hr . #10 anemia , on Epogen Problems: Consultation Date/Type/Reason Admit Date/Time Jul 27, 2016 at 23:29 Initial Consult Date 07/28/16 Type of Consultation: Pulmonary Referring Provider: BARNEY MCKEE 24 HR Interval Summary Free Text/Dictation He is unresponsive on a ventilator . Subjective hx not possible: pt non-verbal Exam/Review of Systems Vital Signs Vitals Vital Signs Date Time Temp Pulse Resp B/P Pulse Ox O2 Delivery O2 Flow Rate FiO2 09/01/16 09:30 98 16 99 35 09/01/16 07:37 98.9 161/76 Intake and Output 08/31/16 08/31/16 09/01/16 15:00 23:00 07:00 Intake Total 510 ml Output Total 0 ml Balance 510 ml Exam Constitutional: non-verbal Respiratory: clear to auscultation, diminished breath sounds Cardiovascular: regular rate and rhythm Gastrointestinal: soft Musculoskeletal: nl extremities to inspection Results Result Diagram: 08/30/16 0615 09/01/16 0620 Results 24 hrs Laboratory Tests Test 08/31/16 11:29 08/31/16 18:13 09/01/16 00:30 09/01/16 06:18 Bedside Glucose 173 109 141 147 Test 09/01/16 06:20 09/01/16 09:38 Alanine Aminotransferase (ALT/SGPT) 47 Albumin 3.1 L Albumin/Globulin Ratio 0.67 Alkaline Phosphatase 106 Anion Gap 21 H Aspartate Amino Transf (AST/SGOT) 64 H Blood Urea Nitrogen 92 #H Calcium Level 8.8 Carbon Dioxide Level 30 Chloride Level 95 L Creatinine Pending Direct Bilirubin 0.00 Globulin 4.60 H Glucose Level 132 Indirect Bilirubin 0.1 Potassium Level 4.0 Sodium Level 142 Total Bilirubin 0.1 L Total Protein 7.7 Bedside Glucose 201 Medications Medications Current Medications Labetalol HCl (Labetalol) 10 mg Q6H PRN IV sbp > 160 Last administered on 18:33; Admin Dose 10 MG; Start 07/28/16 at 00:30 Acetaminophen (Tylenol Supp) 650 mg Q6H PRN [place] PAIN AND OR ELEVATED TEMP Last administered on 07/31/16 17:30; Admin Dose 650 MG; Start 07/28/16 at 08:30 Miscellaneous Information 1 ea NOTE XX ; Start 07/28/16 at 09:00 Glucose (Glutose) 15 gm Q15M PRN PO DECREASED GLUCOSE; Start 07/28/16 at 09:00 Glucose (Glutose) 22.5 gm Q15M PRN PO DECREASED GLUCOSE; Start 07/28/16 at 09: 00 Dextrose (D50w Syringe) 25 ml Q15M PRN IV DECREASED GLUCOSE; Start 07/28/16 at 09:00 Dextrose (D50w Syringe) 50 ml Q15M PRN IV DECREASED GLUCOSE; Start 07/28/16 at 09:00 Glucagon (Glucagen) 1 mg Q15M PRN IM DECREASED GLUCOSE; Start 07/28/16 at 09:00 Glucose (Glutose) 15 gm Q15M PRN BUCCAL DECREASED GLUCOSE; Start 07/28/16 at 09 :00 IV Flush (NS 10 ml) 10 ml PRN PRN IV IV PROTOCOL; Start 07/29/16 at 17:00 Morphine Sulfate (morphine) 2 mg Q4 PRN IV PAIN Last administered on 08/12/16 23:38; Admin Dose 2 MG; Start 07/31/16 at 12:00 Lorazepam (Ativan) 1 mg Q1H PRN IV SEIZURES Last administered on 08/11/16 12:25 ; Admin Dose 1 MG; Start 08/02/16 at 02:00 Acetaminophen (Tylenol Liquid) 650 mg Q4H PRN NGT PAIN AND OR ELEVATED TEMP Last administered on 09/01/16 06:21; Admin Dose 650 MG; Start 08/03/16 at 00:00 Calcium Acetate (Phoslo) 667 mg Q6 NGT Last administered on 09/01/16 06:21; Admin Dose 667 MG; Start 08/05/16 at 08:30 Hydralazine HCl (Apresoline) 10 mg Q4H PRN IV ELEVATED SYSTOLIC BP Last administered on 08/28/16 06:28; Admin Dose 10 MG; Start 08/06/16 at 01:30 Eye Lubricant (Artificial Tears Oph) 2 drop TID BOTH EYES Last administered on 09/01/16 09:29; Admin Dose 2 DROP; Start 08/13/16 at 09:00 Metoprolol Tartrate (Lopressor) 50 mg BID NGT Last administered on 08/31/16 20: 29; Admin Dose 50 MG; Start 08/15/16 at 21:00 Amiodarone HCl (Cordarone) 200 mg DAILY NGT Last administered on 09/01/16 09:30 ; Admin Dose 200 MG; Start 08/18/16 at 09:00 Lansoprazole (Prevacid) 30 mg DAILY@06 NGT Last administered on 09/01/16 06:21 ; Admin Dose 30 MG; Start 08/18/16 at 06:00 Insulin Aspart (Novolog Insulin Pen) NOVOLOG *MODERATE* ALGORI... Q6 SC Last administered on 09/01/16 06:28; Admin Dose 2 UNIT; Start 08/19/16 at 00:00 Zinc Oxide (Desitin) 1 applic PRN PRN TOP RASH Last administered on 08/28/16 06:26; Admin Dose 1 APPLIC; Start 08/21/16 at 17:30 Sodium Bicarbonate (Sodium Bicarbonate Tab) 650 mg Q8 NGT Last administered on 09/01/16 06:21; Admin Dose 650 MG; Start 08/22/16 at 22:00 Insulin Human NPH (Humulin N) 44 unit ,, SC Last administered on 10:47; Admin Dose 44 UNIT; Start 08/23/16 at 17:00 Warfarin Sodium (Coumadin) 5 mg DAILY@17 GTB Last administered on 08/31/16 18: 14; Admin Dose 5 MG; Start 08/27/16 at 17:00 Epoetin Eloy (Epogen (Esrd)) 10,000 units MoWeFr@17 SC Last administered on 08/31 20:37; Admin Dose 10,000 UNITS; Start 08/29/16 at 17:00 Levetiracetam (Keppra Liquid) 1,000 mg BID GTB Last administered on 09/01/16t 09 :29; Admin Dose 1,000 MG; Start 08/29/16 at 21:00 ROSCOE LANGE MD Sep 01, 2016 11:08
--- NOTE | 2016-09-01 11:16 | PN ---
Date/Time of Note Date/Time of Note DATE: 09/01/16 TIME: 11:15 Assessment/Plan VTE Prophylaxis VTE Prophylaxis Intervention: other (Coumadin) Lines/Catheters IV [facility]from [facility]): Central Line Central line still needed: Yes Urinary Cath still in place: No Assessment/Plan Chief Complaint/Hosp Course A/P: 56 M with: 1. Status post cardiac arrest secondary to PEA. Status post trach and PEG. Family hesitant on changing the code status. 2. Acute respiratory failure, hypoxic. - Continue ventilator management as per pulmonary. - Continue inhaled bronchodilators. 3. End-stage renal disease on hemodialysis. - Continue hemodialysis as per nephrology. - epogen 4. Status post systemic inflammatory response syndrome. Status post antibiotics. - monitor, fevers likely central in origin 5. Paroxysmal atrial fibrillation with rapid ventricular response. Currently in sinus rhythm. - continue amiodarone and metoprolol. - continue warfarin for stroke prophylaxis. 6. Type 2 diabetes mellitus. Hemoglobin A1c 7.3. - Continue insulin sliding scale along with Lantus insulin. 7. Essential hypertension. - Continue antihypertensives. 8. Seizure disorder. Most probably secondary to anoxia. - Continue anticonvulsants. 9. Possible underlying anoxic encephalopathy. Brain MRI showing a single focus of restricted diffusion in the left superior frontal lobe at the level of the precentral gyrus compatible with acute/subacute ischemic infarct. - monitor for now 10. Normocytic normochromic anemia, most probably anemia of chronic kidney disease. - Will monitor H and H closely, on epogen as well 11. Fluid, electrolytes and nutrition. - Continue G-tube feedings. 12. Deep venous thrombosis prophylaxis. On warfarin. 13. Gastrointestinal prophylaxis. Proton pump inhibitors. PLAN: Continue inpatient care. The patient's fevers could be neurogenic in origin. All the cultures have been negative. Holding valproic acid because of high serum levels. Await placement to a correction facility. I spoke with [facility] medical receptionist medical assistant to discuss pt's difficulty in placement due to ESRD on HD , + Hep B, PEA/anoxic brain injury, and trach dependent res failure - they will assist in possible placement of pt to appropriate healthcare facility. Problems: Subjective 24 Hr Interval Summary Free Text/Dictation No acute events overnight. Awaiting HD today. Exam/Review of Systems Vital Signs Vitals Vital Signs Date Time Temp Pulse Resp B/P Pulse Ox O2 Delivery O2 Flow Rate FiO2 3/2/17 09:30 98 16 99 35 09/01/16 07:37 98.9 161/76 Intake and Output 08/31/16 08/31/16 09/01/16 15:00 23:00 07:00 Intake Total 510 ml Output Total 0 ml Balance 510 ml Exam GENERAL: lying in bed with tracheostomy to vent, in no apparent distress. HEENT: Head normocephalic and atraumatic. Eyes: Anicteric sclerae. Conjunctivae clear. ENT: Nasal septum Oral mucosa is dry. NECK: Supple. Tracheostomy midline. RESPIRATORY: less Bilateral diminished breath sounds. Tracheostomy connected to mechanical ventilator. CARDIAC: Regular rate and rhythm. No obvious murmurs heard. ABDOMEN: Soft, nontender and nondistended. Left upper quadrant G-tube in place. EXTREMITIES: No cyanosis, no clubbing, no edema. Peripheral pulses are palpable. NEUROLOGIC: The patient is obtunded. Opens eyes. Does not follow any commands. Results Result Diagram: 08/30/16 0615 09/01/16 0620 Results 24 hrs Laboratory Tests Test 08/31/16 11:29 08/31/16 18:13 09/01/16 00:30 09/01/16 06:18 Bedside Glucose 173 109 141 147 Test 09/01/16 06:20 09/01/16 09:38 Alanine Aminotransferase (ALT/SGPT) 47 Albumin 3.1 L Albumin/Globulin Ratio 0.67 Alkaline Phosphatase 106 Anion Gap 21 H Aspartate Amino Transf (AST/SGOT) 64 H Blood Urea Nitrogen 92 #H Calcium Level 8.8 Carbon Dioxide Level 30 Chloride Level 95 L Creatinine Pending Direct Bilirubin 0.00 Globulin 4.60 H Glucose Level 132 Indirect Bilirubin 0.1 Potassium Level 4.0 Sodium Level 142 Total Bilirubin 0.1 L Total Protein 7.7 Bedside Glucose 201 Medications Medications Current Medications Labetalol HCl (Labetalol) 10 mg Q6H PRN IV sbp > 160 Last administered on 18:33; Admin Dose 10 MG; Start 07/28/16 at 00:30 Acetaminophen (Tylenol Supp) 650 mg Q6H PRN [place] PAIN AND OR ELEVATED TEMP Last administered on 07/31/16 17:30; Admin Dose 650 MG; Start 07/28/16 at 08:30 Miscellaneous Information 1 ea NOTE XX ; Start 07/28/16 at 09:00 Glucose (Glutose) 15 gm Q15M PRN PO DECREASED GLUCOSE; Start 07/28/16 at 09:00 Glucose (Glutose) 22.5 gm Q15M PRN PO DECREASED GLUCOSE; Start 07/28/16 at 09: 00 Dextrose (D50w Syringe) 25 ml Q15M PRN IV DECREASED GLUCOSE; Start 07/28/16 at 09:00 Dextrose (D50w Syringe) 50 ml Q15M PRN IV DECREASED GLUCOSE; Start 07/28/16 at 09:00 Glucagon (Glucagen) 1 mg Q15M PRN IM DECREASED GLUCOSE; Start 07/28/16 at 09:00 Glucose (Glutose) 15 gm Q15M PRN BUCCAL DECREASED GLUCOSE; Start 07/28/16 at 09 :00 IV Flush (NS 10 ml) 10 ml PRN PRN IV IV PROTOCOL; Start 07/29/16 at 17:00 Morphine Sulfate (morphine) 2 mg Q4 PRN IV PAIN Last administered on 08/12/16 23:38; Admin Dose 2 MG; Start 07/31/16 at 12:00 Lorazepam (Ativan) 1 mg Q1H PRN IV SEIZURES Last administered on 08/11/16 12:25 ; Admin Dose 1 MG; Start 08/02/16 at 02:00 Acetaminophen (Tylenol Liquid) 650 mg Q4H PRN NGT PAIN AND OR ELEVATED TEMP Last administered on 09/01/16 06:21; Admin Dose 650 MG; Start 08/03/16 at 00:00 Calcium Acetate (Phoslo) 667 mg Q6 NGT Last administered on 09/01/16 06:21; Admin Dose 667 MG; Start 08/05/16 at 08:30 Hydralazine HCl (Apresoline) 10 mg Q4H PRN IV ELEVATED SYSTOLIC BP Last administered on 08/28/16 06:28; Admin Dose 10 MG; Start 08/06/16 at 01:30 Eye Lubricant (Artificial Tears Oph) 2 drop TID BOTH EYES Last administered on 09/01/16 09:29; Admin Dose 2 DROP; Start 08/13/16 at 09:00 Metoprolol Tartrate (Lopressor) 50 mg BID NGT Last administered on 08/31/16 20: 29; Admin Dose 50 MG; Start 08/15/16 at 21:00 Amiodarone HCl (Cordarone) 200 mg DAILY NGT Last administered on 09/01/16 09:30 ; Admin Dose 200 MG; Start 08/18/16 at 09:00 Lansoprazole (Prevacid) 30 mg DAILY@06 NGT Last administered on 09/01/16 06:21 ; Admin Dose 30 MG; Start 08/18/16 at 06:00 Insulin Aspart (Novolog Insulin Pen) NOVOLOG *MODERATE* ALGORI... Q6 SC Last administered on 09/01/16 06:28; Admin Dose 2 UNIT; Start 08/19/16 at 00:00 Zinc Oxide (Desitin) 1 applic PRN PRN TOP RASH Last administered on 08/28/16 06:26; Admin Dose 1 APPLIC; Start 08/21/16 at 17:30 Sodium Bicarbonate (Sodium Bicarbonate Tab) 650 mg Q8 NGT Last administered on 09/01/16 06:21; Admin Dose 650 MG; Start 08/22/16 at 22:00 Insulin Human NPH (Humulin N) 44 unit SC Last administered on 10:47; Admin Dose 44 UNIT; Start 08/23/16 at 17:00 Warfarin Sodium (Coumadin) 5 mg DAILY@17 GTB Last administered on 08/31/16 18: 14; Admin Dose 5 MG; Start 08/27/16 at 17:00 Epoetin Eloy (Epogen (Esrd)) 10,000 units MoWeFr@17 SC Last administered on 08/31 20:37; Admin Dose 10,000 UNITS; Start 08/29/16 at 17:00 Levetiracetam (Keppra Liquid) 1,000 mg BID GTB Last administered on 09/01/16 09 :29; Admin Dose 1,000 MG; Start 08/29/16 at 21:00 CAPRI CHAPA Sep 01, 2016 11:16
[2016-09-01 12:11] LABS: ADD SCAN DIFF NO
[2016-09-01 12:13] LABS: ABNORMAL IP MESSAGE 1; BASOPHIL # 0.1 10^3/ul (0.0-0.1); BASOPHILS % 0.5 % (0.0-2.0); EOSINOPHILS # 0.9 10^3/ul (0.0-0.5); HEMOGLOBIN 7.4 g/dl (14.0-18.0); LYMPHOCYTES # 3.3 10^3/ul (0.8-2.9); LYMPHOCYTES % 19.6 % (15.0-51.0); MEAN CORPUSCULAR HEMOGLOBIN 31.6 pg (29.0-33.0); MEAN CORPUSCULAR HGB CONC 30.8 g/dl (32.0-37.0); MEAN CORPUSCULAR VOLUME 102.6 fl (82.0-101.0); MEAN PLATELET VOLUME 9.7 fl (7.4-10.4); MONOCYTE # 1.3 10^3/ul (0.3-0.9); MONOCYTES % 7.9 % (0.0-11.0); NEUTROPHIL # 10.4 10^3/ul (1.6-7.5); NEUTROPHILS % 61.6 % (39.0-77.0); NUCLEATED RED BLOOD CELLS% 0.2 /100WBC (0.0-0.0); PLATELET COUNT 301 10^3/UL (140-415); RED BLOOD COUNT 2.34 10^6/ul (4.70-6.10); RED CELL DISTRIBUTION WIDTH 15.3 % (11.5-14.5); WHITE BLOOD COUNT 16.9 10^3/ul (4.8-10.8)
[2016-09-01 12:15] LABS: POTASSIUM 4.7 mmol/L (3.5-5.1)
[2016-09-01 12:16] LABS: INR 1.95; PROTIME 22.4 Sec (12.2-14.2); PT RATIO 1.8
[2016-09-01 12:18] LABS: ALBUMIN/GLOBULIN RATIO 0.68; BILIRUBIN,INDIRECT 0.1 mg/dl (0-1.1); BILIRUBIN,TOTAL 0.1 mg/dl (0.2-1.3); TOTAL PROTEIN 7.4 g/dl (6.1-8.1)
[2016-09-01 12:19] LABS: CALCIUM 8.9 mg/dl (8.4-10.2)
[2016-09-01 12:21] LABS: CREATININE 5.39 mg/dl (0.61-1.24)
[2016-09-01 12:23] LABS: CREATININE 5.39 mg/dl (0.61-1.24)
[2016-09-01] MEDS: WARFARIN 5 MG TAB GTB SCH (17:07)
[2016-09-02] VITALS (26 sets, daily range): BP systolic 106–175; BP diastolic 59–83; PULSE 91–108; RESP 16–20
[2016-09-02] MEDS: CALCIUM ACETATE 667 MG CAP NGT SCH ×4 (00:43→17:40)
[2016-09-02] MEDS: INSULIN ASPART [NOVOLOG] 3 ML PEN SC SCH ×4 (00:45→18:03)
[2016-09-02] MEDS: NPH, HUMAN INSULIN ISOPHANE 3ML VIAL SC SCH ×3 (00:46→18:02)
[2016-09-02] MEDS: ALBUTEROL HFA 8 GM INHALER INH SCH ×6 (00:55→20:47)
[2016-09-02] MEDS: IPRATROPIUM (HFA) 12.9 GM INHALER INH SCH ×6 (00:56→20:47)
[2016-09-02] MEDS: ACETAMINOPHEN 650MG/20.3ML CUP NGT PRN ×3 (00:58→11:50)
[2016-09-02] MEDS: hydrALAzine 20 MG INJ IV PRN (00:58)
[2016-09-02] MEDS: NA BICARBONATE 650 MG TAB NGT SCH ×3 (05:50→23:57)
[2016-09-02] MEDS: LANSOPRAZOLE 30 MG CAP NGT SCH (05:51)
[2016-09-02 06:55] LABS: ADD SCAN DIFF NO
[2016-09-02 06:59] LABS: BASOPHIL # 0.1 10^3/ul (0.0-0.1); BASOPHILS % 0.5 % (0.0-2.0); EOSINOPHILS # 0.5 10^3/ul (0.0-0.5); EOSINOPHILS % 3.2 % (0.0-7.0); HEMATOCRIT 24.8 % (42.0-52.0); HEMOGLOBIN 7.6 g/dl (14.0-18.0); LYMPHOCYTES # 2.8 10^3/ul (0.8-2.9); LYMPHOCYTES % 16.6 % (15.0-51.0); MEAN CORPUSCULAR HEMOGLOBIN 31.4 pg (29.0-33.0); MEAN CORPUSCULAR HGB CONC 30.6 g/dl (32.0-37.0); MEAN CORPUSCULAR VOLUME 102.5 fl (82.0-101.0); MEAN PLATELET VOLUME 9.7 fl (7.4-10.4); MONOCYTE # 1.5 10^3/ul (0.3-0.9); MONOCYTES % 8.6 % (0.0-11.0); NEUTROPHIL # 11.4 10^3/ul (1.6-7.5); NEUTROPHILS % 67.1 % (39.0-77.0); NUCLEATED RED BLOOD CELLS # 0.1 10^3/ul (0.0-0.0); NUCLEATED RED BLOOD CELLS% 0.8 /100WBC (0.0-0.0); PLATELET COUNT 292 10^3/UL (140-415); RED BLOOD COUNT 2.42 10^6/ul (4.70-6.10); RED CELL DISTRIBUTION WIDTH 15.7 % (11.5-14.5); WHITE BLOOD COUNT 16.9 10^3/ul (4.8-10.8)
[2016-09-02 07:09] LABS: INR 2.3; PROTIME 25.6 Sec (12.2-14.2)
--- NOTE | 2016-09-02 09:24 | CONS ---
Date/Time of Note Date/Time of Note DATE: 09/02/16 TIME: 09:16 Assessment/Plan Assessment/Plan Chief Complaint/Hosp Course #1 end-stage renal disease . He has hemodialysis ordered for tomorrow . His BUN is in a better range . #2 the patient is status post a cardiac arrest at home #3 altered level of consciousness, probable anoxic encephalopathy. His prognosis for recovery seems poor. #4 insulin-dependent diabetes mellitus #5 seizures #6 ventilator dependent respiratory failure , h/o COPD. #7 hyperphosphatemia , calcium acetate is being given . #8 new onset A fib , he was cardioverted and now is on warfarin . #9 dietary consult ordered , will continue tube feeding rate at 30 cc/hr . #10 anemia , on Epogen Problems: Consultation Date/Type/Reason Admit Date/Time Jul 27, 2016 at 23:29 Initial Consult Date 07/28/16 Type of Consultation: renal Referring Provider: BARNEY MCKEE 24 HR Interval Summary Free Text/Dictation He is unresponsive on ventilator , family is in the room . Subjective hx not possible: pt non-verbal Exam/Review of Systems Vital Signs Vitals Vital Signs Date Time Temp Pulse Resp B/P Pulse Ox O2 Delivery O2 Flow Rate FiO2 09/02/16 08:39 107 09/02/16 07:35 16 97 35 09/02/16 07:35 101.1 106/59 Intake and Output 09/01/16 09/01/16 09/02/16 15:00 23:00 07:00 Intake Total 1120 ml Output Total 3300 ml Balance -2180 ml Exam Constitutional: non-verbal Respiratory: clear to auscultation, diminished breath sounds Cardiovascular: regular rate and rhythm Gastrointestinal: soft Musculoskeletal: nl extremities to inspection Results Result Diagram: 09/02/16 0615 09/01/16 1120 Results 24 hrs Laboratory Tests Test 09/01/16 09:38 09/01/16 11:20 09/01/16 12:14 09/01/16 17:12 Bedside Glucose 201 180 198 Alanine Aminotransferase (ALT/SGPT) 48 Albumin 3.0 L Albumin/Globulin Ratio 0.68 Alkaline Phosphatase 95 Anion Gap 22 H Aspartate Amino Transf (AST/SGOT) 68 H Basophils # 0.1 Basophils % 0.5 Blood Urea Nitrogen 94 H Calcium Level 8.9 Carbon Dioxide Level 29 Chloride Level 94 L Creatinine 5.39 H Direct Bilirubin 0.00 Eosinophils # 0.9 H Eosinophils % 5.0 Globulin 4.40 H Glucose Level 118 Hematocrit 24.0 L Hemoglobin 7.4 L INR International Normalized Ratio 1.95 Indirect Bilirubin 0.1 Lymphocytes # 3.3 H Lymphocytes % 19.6 Mean Corpuscular Hemoglobin 31.6 Mean Corpuscular Hemoglobin Concent 30.8 L Mean Corpuscular Volume 102.6 H Mean Platelet Volume 9.7 Monocytes # 1.3 H Monocytes % 7.9 Neutrophils # 10.4 H Neutrophils % 61.6 Nucleated Red Blood Cells # 0.0 Nucleated Red Blood Cells % 0.2 H Platelet Count 301 Potassium Level 4.7 Prothrombin Time 22.4 H Prothrombin Time Ratio 1.8 Red Blood Count 2.34 L Red Cell Distribution Width 15.3 H Sodium Level 140 Total Bilirubin 0.1 L Total Protein 7.4 White Blood Count 16.9 H Test 09/02/16 00:42 09/02/16 05:52 09/02/16 06:15 Bedside Glucose 149 166 Basophils # 0.1 Basophils % 0.5 Eosinophils # 0.5 Eosinophils % 3.2 Hematocrit 24.8 L Hemoglobin 7.6 L INR International Normalized Ratio 2.30 Lymphocytes # 2.8 Lymphocytes % 16.6 Mean Corpuscular Hemoglobin 31.4 Mean Corpuscular Hemoglobin Concent 30.6 L Mean Corpuscular Volume 102.5 H Mean Platelet Volume 9.7 Monocytes # 1.5 H Monocytes % 8.6 Neutrophils # 11.4 H Neutrophils % 67.1 Nucleated Red Blood Cells # 0.1 H Nucleated Red Blood Cells % 0.8 H Platelet Count 292 Prothrombin Time 25.6 H Prothrombin Time Ratio 2.0 Red Blood Count 2.42 L Red Cell Distribution Width 15.7 H White Blood Count 16.9 H Medications Medications Current Medications Labetalol HCl (Labetalol) 10 mg Q6H PRN IV sbp > 160 Last administered on 18:33; Admin Dose 10 MG; Start 07/28/16 at 00:30 Acetaminophen (Tylenol Supp) 650 mg Q6H PRN [place] PAIN AND OR ELEVATED TEMP Last administered on 07/31/16 17:30; Admin Dose 650 MG; Start 07/28/16 at 08:30 Miscellaneous Information 1 ea NOTE XX ; Start 07/28/16 at 09:00 Glucose (Glutose) 15 gm Q15M PRN PO DECREASED GLUCOSE; Start 07/28/16 at 09:00 Glucose (Glutose) 22.5 gm Q15M PRN PO DECREASED GLUCOSE; Start 07/28/16 at 09: 00 Dextrose (D50w Syringe) 25 ml Q15M PRN IV DECREASED GLUCOSE; Start 07/28/16 at 09:00 Dextrose (D50w Syringe) 50 ml Q15M PRN IV DECREASED GLUCOSE; Start 07/28/16 at 09:00 Glucagon (Glucagen) 1 mg Q15M PRN IM DECREASED GLUCOSE; Start 07/28/16 at 09:00 Glucose (Glutose) 15 gm Q15M PRN BUCCAL DECREASED GLUCOSE; Start 07/28/16 at 09 :00 IV Flush (NS 10 ml) 10 ml PRN PRN IV IV PROTOCOL; Start 07/29/16 at 17:00 Morphine Sulfate (morphine) 2 mg Q4 PRN IV PAIN Last administered on 08/12/16 23:38; Admin Dose 2 MG; Start 07/31/16 at 12:00 Lorazepam (Ativan) 1 mg Q1H PRN IV SEIZURES Last administered on 08/11/16 12:25 ; Admin Dose 1 MG; Start 08/02/16 at 02:00 Acetaminophen (Tylenol Liquid) 650 mg Q4H PRN NGT PAIN AND OR ELEVATED TEMP Last administered on 09/02/16 05:50; Admin Dose 650 MG; Start 08/03/16 at 00:00 Calcium Acetate (Phoslo) 667 mg Q6 NGT Last administered on 09/02/16 05:51; Admin Dose 667 MG; Start 08/05/16 at 08:30 Hydralazine HCl (Apresoline) 10 mg Q4H PRN IV ELEVATED SYSTOLIC BP Last administered on 09/02/16 00:58; Admin Dose 10 MG; Start 08/06/16 at 01:30 Eye Lubricant (Artificial Tears Oph) 2 drop TID BOTH EYES Last administered on 09/01/16 20:25; Admin Dose 2 DROP; Start 08/13/16 at 09:00 Metoprolol Tartrate (Lopressor) 50 mg BID NGT Last administered on 09/01/16 20: 24; Admin Dose 50 MG; Start 08/15/16 at 21:00 Amiodarone HCl (Cordarone) 200 mg DAILY NGT Last administered on 09/01/16 09:30 ; Admin Dose 200 MG; Start 08/18/16 at 09:00 Lansoprazole (Prevacid) 30 mg DAILY@06 NGT Last administered on 09/02/16 05:51 ; Admin Dose 30 MG; Start 08/18/16 at 06:00 Insulin Aspart (Novolog Insulin Pen) NOVOLOG *MODERATE* ALGORI... Q6 SC Last administered on 09/02/16 06:01; Admin Dose 2 UNIT; Start 08/19/16 at 00:00 Zinc Oxide (Desitin) 1 applic PRN PRN TOP RASH Last administered on 08/28/16 06:26; Admin Dose 1 APPLIC; Start 08/21/16 at 17:30 Sodium Bicarbonate (Sodium Bicarbonate Tab) 650 mg Q8 NGT Last administered on 09/02/16 05:50; Admin Dose 650 MG; Start 08/22/16 at 22:00 Insulin Human NPH (Humulin N) 44 unit SC Last administered on 00:46; Admin Dose 44 UNIT; Start 08/23/16 at 17:00 Warfarin Sodium (Coumadin) 5 mg DAILY@17 GTB Last administered on 09/01/16 17: 07; Admin Dose 5 MG; Start 08/27/16 at 17:00 Epoetin Eloy (Epogen (Esrd)) 10,000 units MoWeFr@17 SC Last administered on 08/31 20:37; Admin Dose 10,000 UNITS; Start 08/29/16 at 17:00 Levetiracetam (Keppra Liquid) 1,000 mg BID GTB Last administered on 09/01/16 20 :24; Admin Dose 1,000 MG; Start 08/29/16 at 21:00 ROSCOE LANGE MD Sep 02, 2016 09:24
[2016-09-02] MEDS: ARFORMOTEROL TARTRATE 15MCG/2 ML AMP NEB SCH ×2 (09:32→20:47)
[2016-09-02] MEDS: LEVETIRACETAM (100 MG/ML) 5ML CUP GTB SCH ×2 (09:51→23:57)
[2016-09-02] MEDS: ARTIFICIAL TEARS 15 ML OPH BOTH EYES SCH ×2 (09:51→11:58)
[2016-09-02] MEDS: AMIODARONE 200 MG TAB NGT SCH (09:52)
[2016-09-02] MEDS: METOPROLOL 50 MG TAB NGT SCH ×2 (09:52→23:58)
[2016-09-02] MEDS ORDERED: SOD CHLORIDE 0.9% 250 ML IV* ONE (10:13)
--- NOTE | 2016-09-02 10:43 | CONS ---
Date/Time of Note Date/Time of Note DATE: 09/02/16 TIME: 10:40 Assessment/Plan Assessment/Plan Additional Assessment/Plan Ventilator settings; AC of 16, tidal volume 650, PEEP of 5, 30% FiO2. Assessment and recommendations; 1. Patient admitted with sepsis and pneumonia with marked clinical improvement. 2. End-stage renal disease on hemodialysis. 3. Episode of atrial fibrillation currently in sinus rhythm patient maintained on amiodarone. 4. History of stable seizure disorder. 5. Stable hypertension. 6. Diabetes. Continue current treatment. Patient awaiting transfer to rehab facility. Consultation Date/Type/Reason Admit Date/Time Jul 27, 2016 at 23:29 Initial Consult Date 07/28/16 Type of Consultation: Pulmonary Referring Provider: BARNEY MCKEE 24 HR Interval Summary Free Text/Dictation Patient condition remains unchanged. Remains completely unresponsive. However has remained hemodynamically stable. No seizure activity noted. General examination; elderly male, on ventilator via tracheostomy unresponsive. Exam/Review of Systems Vital Signs Vitals Vital Signs Date Time Temp Pulse Resp B/P Pulse Ox O2 Delivery O2 Flow Rate FiO2 09/02/16 09:31 106 16 96 35 09/02/16 07:35 101.1 106/59 Intake and Output 09/01/16 09/01/16 09/02/16 15:00 23:00 07:00 Intake Total 1120 ml Output Total 3300 ml Balance -2180 ml Exam HEENT examination; supple neck, no JVD. No lymphadenopathy. Midline trachea. Tracheostomy in place. Patient is edentulous. Chest examination; clear to auscultation bilaterally. S1-S2 audible, no murmurs. Regular rhythm. Abdomen examination; soft, nontender distended. G-tube in place. Bowel sounds audible no organomegaly. Extremity examination; no peripheral edema. BREWING DIRECTOR examination; patient remains unresponsive. Results Result Diagram: 09/02/16 0615 09/01/16 1120 Results 24 hrs Laboratory Tests Test 09/01/16 11:20 09/01/16 12:14 09/01/16 17:12 09/02/16 00:42 Alanine Aminotransferase (ALT/SGPT) 48 Albumin 3.0 L Albumin/Globulin Ratio 0.68 Alkaline Phosphatase 95 Anion Gap 22 H Aspartate Amino Transf (AST/SGOT) 68 H Basophils # 0.1 Basophils % 0.5 Blood Urea Nitrogen 94 H Calcium Level 8.9 Carbon Dioxide Level 29 Chloride Level 94 L Creatinine 5.39 H Direct Bilirubin 0.00 Eosinophils # 0.9 H Eosinophils % 5.0 Globulin 4.40 H Glucose Level 118 Hematocrit 24.0 L Hemoglobin 7.4 L INR International Normalized Ratio 1.95 Indirect Bilirubin 0.1 Lymphocytes # 3.3 H Lymphocytes % 19.6 Mean Corpuscular Hemoglobin 31.6 Mean Corpuscular Hemoglobin Concent 30.8 L Mean Corpuscular Volume 102.6 H Mean Platelet Volume 9.7 Monocytes # 1.3 H Monocytes % 7.9 Neutrophils # 10.4 H Neutrophils % 61.6 Nucleated Red Blood Cells # 0.0 Nucleated Red Blood Cells % 0.2 H Platelet Count 301 Potassium Level 4.7 Prothrombin Time 22.4 H Prothrombin Time Ratio 1.8 Red Blood Count 2.34 L Red Cell Distribution Width 15.3 H Sodium Level 140 Total Bilirubin 0.1 L Total Protein 7.4 White Blood Count 16.9 H Bedside Glucose 180 198 149 Test 09/02/16 05:52 09/02/16 06:15 Bedside Glucose 166 Basophils # 0.1 Basophils % 0.5 Eosinophils # 0.5 Eosinophils % 3.2 Hematocrit 24.8 L Hemoglobin 7.6 L INR International Normalized Ratio 2.30 Lymphocytes # 2.8 Lymphocytes % 16.6 Mean Corpuscular Hemoglobin 31.4 Mean Corpuscular Hemoglobin Concent 30.6 L Mean Corpuscular Volume 102.5 H Mean Platelet Volume 9.7 Monocytes # 1.5 H Monocytes % 8.6 Neutrophils # 11.4 H Neutrophils % 67.1 Nucleated Red Blood Cells # 0.1 H Nucleated Red Blood Cells % 0.8 H Platelet Count 292 Prothrombin Time 25.6 H Prothrombin Time Ratio 2.0 Red Blood Count 2.42 L Red Cell Distribution Width 15.7 H White Blood Count 16.9 H Medications Medications Current Medications Labetalol HCl (Labetalol) 10 mg Q6H PRN IV sbp > 160 Last administered on 18:33; Admin Dose 10 MG; Start 07/28/16 at 00:30 Acetaminophen (Tylenol Supp) 650 mg Q6H PRN [place] PAIN AND OR ELEVATED TEMP Last administered on 07/31/16 17:30; Admin Dose 650 MG; Start 07/28/16 at 08:30 Miscellaneous Information 1 ea NOTE XX ; Start 07/28/16 at 09:00 Glucose (Glutose) 15 gm Q15M PRN PO DECREASED GLUCOSE; Start 07/28/16 at 09:00 Glucose (Glutose) 22.5 gm Q15M PRN PO DECREASED GLUCOSE; Start 07/28/16 at 09: 00 Dextrose (D50w Syringe) 25 ml Q15M PRN IV DECREASED GLUCOSE; Start 07/28/16 at 09:00 Dextrose (D50w Syringe) 50 ml Q15M PRN IV DECREASED GLUCOSE; Start 07/28/16 at 09:00 Glucagon (Glucagen) 1 mg Q15M PRN IM DECREASED GLUCOSE; Start 07/28/16 at 09:00 Glucose (Glutose) 15 gm Q15M PRN BUCCAL DECREASED GLUCOSE; Start 07/28/16 at 09 :00 IV Flush (NS 10 ml) 10 ml PRN PRN IV IV PROTOCOL; Start 07/29/16 at 17:00 Morphine Sulfate (morphine) 2 mg Q4 PRN IV PAIN Last administered on 08/12/16 23:38; Admin Dose 2 MG; Start 07/31/16 at 12:00 Lorazepam (Ativan) 1 mg Q1H PRN IV SEIZURES Last administered on 08/11/16 12:25 ; Admin Dose 1 MG; Start 08/02/16 at 02:00 Acetaminophen (Tylenol Liquid) 650 mg Q4H PRN NGT PAIN AND OR ELEVATED TEMP Last administered on 09/02/16 05:50; Admin Dose 650 MG; Start 08/03/16 at 00:00 Calcium Acetate (Phoslo) 667 mg Q6 NGT Last administered on 09/02/16 05:51; Admin Dose 667 MG; Start 08/05/16 at 08:30 Hydralazine HCl (Apresoline) 10 mg Q4H PRN IV ELEVATED SYSTOLIC BP Last administered on 09/02/16 00:58; Admin Dose 10 MG; Start 08/06/16 at 01:30 Eye Lubricant (Artificial Tears Oph) 2 drop TID BOTH EYES Last administered on 09/02/16 09:51; Admin Dose 2 DROP; Start 08/13/16 at 09:00 Metoprolol Tartrate (Lopressor) 50 mg BID NGT Last administered on 09/02/16 09: 52; Admin Dose 50 MG; Start 08/15/16 at 21:00 Amiodarone HCl (Cordarone) 200 mg DAILY NGT Last administered on 09/02/16 09:52 ; Admin Dose 200 MG; Start 08/18/16 at 09:00 Lansoprazole (Prevacid) 30 mg DAILY@06 NGT Last administered on 09/02/16 05:51 ; Admin Dose 30 MG; Start 08/18/16 at 06:00 Insulin Aspart (Novolog Insulin Pen) NOVOLOG *MODERATE* ALGORI... Q6 SC Last administered on 09/02/16 06:01; Admin Dose 2 UNIT; Start 08/19/16 at 00:00 Zinc Oxide (Desitin) 1 applic PRN PRN TOP RASH Last administered on 08/28/16 06:26; Admin Dose 1 APPLIC; Start 08/21/16 at 17:30 Sodium Bicarbonate (Sodium Bicarbonate Tab) 650 mg Q8 NGT Last administered on 09/02/16 05:50; Admin Dose 650 MG; Start 08/22/16 at 22:00 Insulin Human NPH (Humulin N) 44 unit SC Last administered on 09:59; Admin Dose 44 UNIT; Start 08/23/16 at 17:00 Warfarin Sodium (Coumadin) 5 mg DAILY@17 GTB Last administered on 09/01/16 17: 07; Admin Dose 5 MG; Start 08/27/16 at 17:00 Epoetin Eloy (Epogen (Esrd)) 10,000 units MoWeFr@17 SC Last administered on 08/31 20:37; Admin Dose 10,000 UNITS; Start 08/29/16 at 17:00 Levetiracetam (Keppra Liquid) 1,000 mg BID GTB Last administered on 09/02/16 09 :51; Admin Dose 1,000 MG; Start 08/29/16 at 21:00 AMOR RODRIGUES Sep 02, 2016 10:43
[2016-09-02] MEDS: BUDESONIDE (NEB) 0.5MG/2ML AMP HHN SCH ×2 (10:44→20:46)
--- NOTE | 2016-09-02 10:54 | PN ---
Date/Time of Note Date/Time of Note DATE: 09/02/16 TIME: 10:48 Assessment/Plan VTE Prophylaxis VTE Prophylaxis Intervention: other (Coumadin) Lines/Catheters IV Catheter Type (from Nrs): PICC Line Central line still needed: Yes Urinary Cath still in place: No Assessment/Plan Chief Complaint/Hosp Course A/P: 56 M with: 1. Status post cardiac arrest secondary to PEA. Status post trach and PEG. Family hesitant on changing the code status. EEG performed 08/24 with findings of: Abnormal study secondary to background slowing which could reflect encephalopathy. Could be anoxic or toxic metabolic in etiology. MRI brain on 08/26: Single focus of restricted diffusion in the left superior frontal lobe at the level of the precentral gyrus compatible with acute / subacute ischemic infarct. No edema, mass effect hemorrhage. - monitor, family explained in detail today at bedside about current plan. - will get Neuro consult as well, and order for repeat EEG. 2. Acute respiratory failure, hypoxic. - Continue ventilator management as per pulmonary. - Continue inhaled bronchodilators. 3. End-stage renal disease on hemodialysis. - Continue hemodialysis as per nephrology. - epogen 4. Status post systemic inflammatory response syndrome. Status post antibiotics. - monitor, fevers likely central in origin 5. Paroxysmal atrial fibrillation with rapid ventricular response. Currently in sinus rhythm. - continue amiodarone and metoprolol. - continue warfarin for stroke prophylaxis. 6. Type 2 diabetes mellitus. Hemoglobin A1c 7.3. - Continue insulin sliding scale along with Lantus insulin. 7. Essential hypertension. - Continue antihypertensives. 8. Seizure disorder. Most probably secondary to anoxia. - Continue anticonvulsants. 9. Possible underlying anoxic encephalopathy. Again, brain MRI showing a single focus of restricted diffusion in the left superior frontal lobe at the level of the precentral gyrus compatible with acute/subacute ischemic infarct. - monitor for now -Neuro consult (see # 1) 10. Normocytic normochromic anemia, most probably anemia of chronic kidney disease. - Will monitor H and H closely, on epogen as well 11. Fluid, electrolytes and nutrition. - Continue G-tube feedings. 12. Deep venous thrombosis prophylaxis. On warfarin. 13. Gastrointestinal prophylaxis. Proton pump inhibitors. PLAN: Continue inpatient care. The patient's fevers could be neurogenic in origin vs infx - will also get ID consult given this, Hx of Hep B+C positive, and elevated WBC - also check UA, Ucx, blood cx, and CXR to r/o infx source of this. Previous cultures have been negative. Holding valproic acid because of high serum levels. Await placement to a assisted facility. I spoke with [facility] esthetician and manager medical spa to discuss pt's difficulty in placement due to ESRD on HD , + Hep B, PEA/anoxic brain injury, and trach dependent res failure - they will assist in possible placement of pt to appropriate healthcare facility. Problems: Subjective 24 Hr Interval Summary Free Text/Dictation Still with fevers. Seen by renal team. Exam/Review of Systems Vital Signs Vitals Vital Signs Date Time Temp Pulse Resp B/P Pulse Ox O2 Delivery O2 Flow Rate FiO2 09/02/16 10:44 93 16 97 35 09/02/16 07:35 101.1 106/59 Intake and Output 09/01/16 09/01/16 09/02/16 15:00 23:00 07:00 Intake Total 1120 ml Output Total 3300 ml Balance -2180 ml Exam GENERAL: lying in bed with tracheostomy to vent, in no apparent distress, nonresponsive HEENT: Head normocephalic and atraumatic. Eyes: Anicteric sclerae. Conjunctivae clear. ENT: Nasal septum Oral mucosa is dry. NECK: Supple. Tracheostomy midline. RESPIRATORY: less Bilateral diminished breath sounds. Tracheostomy connected to mechanical ventilator. CARDIAC: Regular rate and rhythm. No obvious murmurs heard. ABDOMEN: Soft, nontender and nondistended. Left upper quadrant G-tube in place. EXTREMITIES: No cyanosis, no clubbing, no edema. Peripheral pulses are palpable. NEUROLOGIC: The patient is obtunded. Opens eyes. Does not follow any commands. Results Result Diagram: 09/02/16 0615 09/01/16 1120 Results 24 hrs Laboratory Tests Test 09/01/16 11:20 09/01/16 12:14 09/01/16 17:12 09/02/16 00:42 Alanine Aminotransferase (ALT/SGPT) 48 Albumin 3.0 L Albumin/Globulin Ratio 0.68 Alkaline Phosphatase 95 Anion Gap 22 H Aspartate Amino Transf (AST/SGOT) 68 H Basophils # 0.1 Basophils % 0.5 Blood Urea Nitrogen 94 H Calcium Level 8.9 Carbon Dioxide Level 29 Chloride Level 94 L Creatinine 5.39 H Direct Bilirubin 0.00 Eosinophils # 0.9 H Eosinophils % 5.0 Globulin 4.40 H Glucose Level 118 Hematocrit 24.0 L Hemoglobin 7.4 L INR International Normalized Ratio 1.95 Indirect Bilirubin 0.1 Lymphocytes # 3.3 H Lymphocytes % 19.6 Mean Corpuscular Hemoglobin 31.6 Mean Corpuscular Hemoglobin Concent 30.8 L Mean Corpuscular Volume 102.6 H Mean Platelet Volume 9.7 Monocytes # 1.3 H Monocytes % 7.9 Neutrophils # 10.4 H Neutrophils % 61.6 Nucleated Red Blood Cells # 0.0 Nucleated Red Blood Cells % 0.2 H Platelet Count 301 Potassium Level 4.7 Prothrombin Time 22.4 H Prothrombin Time Ratio 1.8 Red Blood Count 2.34 L Red Cell Distribution Width 15.3 H Sodium Level 140 Total Bilirubin 0.1 L Total Protein 7.4 White Blood Count 16.9 H Bedside Glucose 180 198 149 Test 09/02/16 05:52 09/02/16 06:15 Bedside Glucose 166 Basophils # 0.1 Basophils % 0.5 Eosinophils # 0.5 Eosinophils % 3.2 Hematocrit 24.8 L Hemoglobin 7.6 L INR International Normalized Ratio 2.30 Lymphocytes # 2.8 Lymphocytes % 16.6 Mean Corpuscular Hemoglobin 31.4 Mean Corpuscular Hemoglobin Concent 30.6 L Mean Corpuscular Volume 102.5 H Mean Platelet Volume 9.7 Monocytes # 1.5 H Monocytes % 8.6 Neutrophils # 11.4 H Neutrophils % 67.1 Nucleated Red Blood Cells # 0.1 H Nucleated Red Blood Cells % 0.8 H Platelet Count 292 Prothrombin Time 25.6 H Prothrombin Time Ratio 2.0 Red Blood Count 2.42 L Red Cell Distribution Width 15.7 H White Blood Count 16.9 H Medications Medications Current Medications Labetalol HCl (Labetalol) 10 mg Q6H PRN IV sbp > 160 Last administered on 18:33; Admin Dose 10 MG; Start 07/28/16 at 00:30 Acetaminophen (Tylenol Supp) 650 mg Q6H PRN [place] PAIN AND OR ELEVATED TEMP Last administered on 07/31/16 17:30; Admin Dose 650 MG; Start 07/28/16 at 08:30 Miscellaneous Information 1 ea NOTE XX ; Start 07/28/16 at 09:00 Glucose (Glutose) 15 gm Q15M PRN PO DECREASED GLUCOSE; Start 07/28/16 at 09:00 Glucose (Glutose) 22.5 gm Q15M PRN PO DECREASED GLUCOSE; Start 07/28/16 at 09: 00 Dextrose (D50w Syringe) 25 ml Q15M PRN IV DECREASED GLUCOSE; Start 07/28/16 at 09:00 Dextrose (D50w Syringe) 50 ml Q15M PRN IV DECREASED GLUCOSE; Start 07/28/16 at 09:00 Glucagon (Glucagen) 1 mg Q15M PRN IM DECREASED GLUCOSE; Start 07/28/16 at 09:00 Glucose (Glutose) 15 gm Q15M PRN BUCCAL DECREASED GLUCOSE; Start 07/28/16 at 09 :00 IV Flush (NS 10 ml) 10 ml PRN PRN IV IV PROTOCOL; Start 07/29/16 at 17:00 Morphine Sulfate (morphine) 2 mg Q4 PRN IV PAIN Last administered on 08/12/16 23:38; Admin Dose 2 MG; Start 07/31/16 at 12:00 Lorazepam (Ativan) 1 mg Q1H PRN IV SEIZURES Last administered on 08/11/16 12:25 ; Admin Dose 1 MG; Start 08/02/16 at 02:00 Acetaminophen (Tylenol Liquid) 650 mg Q4H PRN NGT PAIN AND OR ELEVATED TEMP Last administered on 09/02/16 05:50; Admin Dose 650 MG; Start 08/03/16 at 00:00 Calcium Acetate (Phoslo) 667 mg Q6 NGT Last administered on 09/02/16 05:51; Admin Dose 667 MG; Start 08/05/16 at 08:30 Hydralazine HCl (Apresoline) 10 mg Q4H PRN IV ELEVATED SYSTOLIC BP Last administered on 09/02/16 00:58; Admin Dose 10 MG; Start 08/06/16 at 01:30 Eye Lubricant (Artificial Tears Oph) 2 drop TID BOTH EYES Last administered on 09/02/16 09:51; Admin Dose 2 DROP; Start 08/13/16 at 09:00 Metoprolol Tartrate (Lopressor) 50 mg BID NGT Last administered on 09/02/16 09: 52; Admin Dose 50 MG; Start 08/15/16 at 21:00 Amiodarone HCl (Cordarone) 200 mg DAILY NGT Last administered on 09/02/16 09:52 ; Admin Dose 200 MG; Start 08/18/16 at 09:00 Lansoprazole (Prevacid) 30 mg DAILY@06 NGT Last administered on 09/02/16 05:51 ; Admin Dose 30 MG; Start 08/18/16 at 06:00 Insulin Aspart (Novolog Insulin Pen) NOVOLOG *MODERATE* ALGORI... Q6 SC Last administered on 09/02/16 06:01; Admin Dose 2 UNIT; Start 08/19/16 at 00:00 Zinc Oxide (Desitin) 1 applic PRN PRN TOP RASH Last administered on 08/28/16 06:26; Admin Dose 1 APPLIC; Start 08/21/16 at 17:30 Sodium Bicarbonate (Sodium Bicarbonate Tab) 650 mg Q8 NGT Last administered on 09/02/16 05:50; Admin Dose 650 MG; Start 08/22/16 at 22:00 Insulin Human NPH (Humulin N) 44 unit SC Last administered on 09:59; Admin Dose 44 UNIT; Start 08/23/16 at 17:00 Warfarin Sodium (Coumadin) 5 mg DAILY@17 GTB Last administered on 09/01/16 17: 07; Admin Dose 5 MG; Start 08/27/16 at 17:00 Epoetin Eloy (Epogen (Esrd)) 10,000 units MoWeFr@17 SC Last administered on 08/31 20:37; Admin Dose 10,000 UNITS; Start 08/29/16 at 17:00 Levetiracetam (Keppra Liquid) 1,000 mg BID GTB Last administered on 09/02/16 09 :51; Admin Dose 1,000 MG; Start 08/29/16 at 21:00 CAPRI CHAPA Sep 02, 2016 10:54
--- NOTE | 2016-09-02 13:54 | CONS ---
DATE OF ADMISSION: 07/27/2016 DATE OF CONSULTATION: 09/02/2016 TYPE OF CONSULTATION: Infectious Disease. REASON FOR CONSULTATION: Antibiotic management. HISTORY OF PRESENT ILLNESS: Brice Portillo is a very unfortunate 56-year-old [place] ma esdras. His past problems include: 1. End-stage renal disease on hemodialysis. 2. Essential hypertension. 3. Asthma. 4. Type 2 diabetes mellitus. 5. Nephrolithiasis. 6. Obesity. 7. Tobacco abuse. The patient was brought in by ambulance with a cardiac arrest. He had been suffering shortness of b reath for 1 week. He passed out, EMT arrived promptly, CPR was initiated. Patient had pulseless el ectrical activity. He was worked on for 20 minutes and he was brought back, resuscitated. He had S T elevations. In the emergency room, he was intubated, sedated and transferred to the ICU. His pas t problems include are those outlined, including end-stage renal disease on hemodialysis. He has a left upper extremity fistula. On admission, his white count was 17.1, H and H of 14.2 and 43.9, serg telet count 396,000. BUN and creatinine 70/11.23, glucose 363 on admission. The patient's C. diffi cile has been negative. His urine and blood cultures are negative. He had an endotracheal tube whi ch grew out Janet albicans. He has had multiple chest x-rays, most recently on the shows a t racheostomy, right PICC line, aortic valve calcifications, no pulmonary vascular congestion, bibasi lar atelectasis. The patient has been seen in consultation by multiple consultants, including pullazarus moctezuma, Dr. Alvarez, Dr. Lim, by Dr. Forte for nephrology. Endocrine, Dr. Rao and Dr. Gary Davidson for neurology. Currently, patient was admitted with sepsis and pneumonia with marke d clinical improvement. He has end-stage renal disease on hemodialysis. He had an episode of atria l fibrillation, currently in sinus rhythm on amiodarone, stable with regards to seizure disorders. He is completely unresponsive. PAST MEDICAL HISTORY: Operations as outlined. FAMILY HISTORY: Noncontributory. SOCIAL HISTORY: He smoked in the past. He does not abuse drugs. ALLERGIES: NONE TO PENICILLIN, SULFA OR FOODS. MEDICATIONS: Per chart. REVIEW OF SYSTEMS: Noncontributory. PHYSICAL EXAMINATION: GENERAL: The patient is a chronically ill-appearing male. VITAL SIGNS: His temperature today is 101.1. He has a trach and a PEG. He has a PICC line. He is on dialysis. SKIN: Without generalized rash. HEENT: Within normal limits. NECK: Tracheostomy in place. Neck is movable. LYMPH NODES: None palpable. CHEST: Decreased breath sounds at the bases. HEART: Without murmur or gallop. ABDOMEN: Soft, nontender, without organosplenomegaly or masses. He has a G-tube in place. EXTREMITIES: No cyanosis, clubbing, or edema. RECTAL AND GENITAL: Deferred. NEUROLOGIC: The patient is comatose on a respirator. IMPRESSION AND PLAN: The patient has anoxic encephalopathy. His white count today is 16.9, which i s still elevated. His temperature is 102. He is on nothing at the present time. He had vancomycin all the way back on August 18 and cefepime, but has not had anything since. His cultures, urine and blood are negative, but they have not been drawn since August 18. Urinalysis and culture were ordered today, so was a blood culture. I think he needs to be worked up in terms of his sputum and his blood. This could all be anoxic encephalopathy, of course. I will dictate my findings to the hospitalist and to all of the consultants. Dictated By: MIKE COVARRUBIAS MD, JD/BATSHEVA Conf#: [id number] DID#: [id number]
--- NOTE | 2016-09-02 14:00 | RADRPT ---
PROCEDURE: XR Chest. CLINICAL INDICATION: Fever/pneumonia TECHNIQUE: Chest AP portable. COMPARISON: 08/22/2016 FINDINGS: Tracheostomy tube. Right arm PICC line with tip at SVC / RA junction. The mediastinal structures are unremarkable. There is mild cardiomegaly. The pulmonary vascularity is normal. There are low lung volumes. There is bibasilar subsegmental atelectasis / patchy conso lidations. The pleural spaces are unremarkable. The axial skeleton is unremarkable. IMPRESSION: Mild cardiomegaly Low lung volumes. Bibasilar subsegmental atelectasis / patchy consolidations RPTAT: HGDB .Urban Ayala MD, MD Date Time Electronically viewed and signed by .Urban Ayala MD, on 09/02/2016 14:00 .B/
[2016-09-02] MEDS: WARFARIN 5 MG TAB GTB SCH (17:41)
[2016-09-02] MEDS: EPOETIN 10000 UNITS/1 ML INJ (ESRD) SC SCH (17:43)
[2016-09-03] VITALS (36 sets, daily range): BP systolic 80–188; BP diastolic 49–83; PULSE 89–102; RESP 16–20
[2016-09-03] MEDS: CALCIUM ACETATE 667 MG CAP NGT SCH ×4 (01:05→17:16)
[2016-09-03] MEDS: NPH, HUMAN INSULIN ISOPHANE 3ML VIAL SC SCH ×3 (01:12→17:20)
[2016-09-03] MEDS: IPRATROPIUM (HFA) 12.9 GM INHALER INH SCH ×6 (01:21→19:56)
[2016-09-03] MEDS: ALBUTEROL HFA 8 GM INHALER INH SCH ×6 (01:21→19:55)
[2016-09-03] MEDS ORDERED: DIPHENHYDRAMINE 2.5 MG/ML 5ML CUP PO ONE (04:30)
[2016-09-03] MEDS ORDERED: DIPHENHYDRAMINE 2.5 MG/ML 5ML CUP NGT ONE (04:30)
[2016-09-03] MEDS: ACETAMINOPHEN 650MG/20.3ML CUP NGT PRN ×2 (05:43→09:50)
[2016-09-03] MEDS: LANSOPRAZOLE 30 MG CAP NGT SCH (05:44)
[2016-09-03] MEDS: NA BICARBONATE 650 MG TAB NGT SCH ×3 (05:44→21:29)
[2016-09-03] MEDS: INSULIN ASPART [NOVOLOG] 3 ML PEN SC SCH ×4 (05:53→17:30)
[2016-09-03 06:05] LABS: ADD SCAN DIFF NO
[2016-09-03 06:25] LABS: ABNORMAL IP MESSAGE 1; BASOPHIL # 0.1 10^3/ul (0.0-0.1); BASOPHILS % 0.5 % (0.0-2.0); EOSINOPHILS # 0.7 10^3/ul (0.0-0.5); EOSINOPHILS % 3.9 % (0.0-7.0); HEMATOCRIT 27.4 % (42.0-52.0); HEMOGLOBIN 8.8 g/dl (14.0-18.0); LYMPHOCYTES # 3.6 10^3/ul (0.8-2.9); LYMPHOCYTES % 20.3 % (15.0-51.0); MEAN CORPUSCULAR HGB CONC 32.1 g/dl (32.0-37.0); MEAN CORPUSCULAR VOLUME 96.5 fl (82.0-101.0); MEAN PLATELET VOLUME 9.8 fl (7.4-10.4); MONOCYTE # 1.6 10^3/ul (0.3-0.9); MONOCYTES % 8.9 % (0.0-11.0); NEUTROPHIL # 10.9 10^3/ul (1.6-7.5); NEUTROPHILS % 62.2 % (39.0-77.0); NUCLEATED RED BLOOD CELLS # 0.1 10^3/ul (0.0-0.0); NUCLEATED RED BLOOD CELLS% 0.7 /100WBC (0.0-0.0); PLATELET COUNT 257 10^3/UL (140-415); RED BLOOD COUNT 2.84 10^6/ul (4.70-6.10); RED CELL DISTRIBUTION WIDTH 17.9 % (11.5-14.5); WHITE BLOOD COUNT 17.5 10^3/ul (4.8-10.8)
[2016-09-03 06:27] LABS: INR 2.44; PROTIME 26.8 Sec (12.2-14.2); PT RATIO 2.1
[2016-09-03 06:27] LABS: ADD UMIC YES; URINE BILIRUBIN (Dip) NEGATIVE (NEGATIVE); URINE BLOOD (Dip) 2+ (NEGATIVE); URINE COLOR YELLOW (YELLOW); URINE GLUCOSE (Dip) NEGATIVE (NEGATIVE); URINE KETONES (Dip) NEGATIVE (NEGATIVE); URINE LEUKOCYTE ESTERASE (Dip) NEGATIVE (NEGATIVE); URINE NITRITE (Dip) POSITIVE (NEGATIVE); URINE TOTAL PROTEIN (Dip) 2+ (NEGATIVE); URINE UROBILINOGEN (Dip) 0.2 E.U./dL (0.1-1.0)
[2016-09-03 07:46] LABS: BACTERIA,URINE MANY
[2016-09-03] MEDS: AMIODARONE 200 MG TAB NGT SCH (08:44)
[2016-09-03] MEDS: ARTIFICIAL TEARS 15 ML OPH BOTH EYES SCH ×4 (08:44→21:36)
[2016-09-03] MEDS: LEVETIRACETAM (100 MG/ML) 5ML CUP GTB SCH ×2 (08:44→21:29)
[2016-09-03] MEDS: METOPROLOL 50 MG TAB NGT SCH ×2 (08:45→21:36)
[2016-09-03] MEDS: BUDESONIDE (NEB) 0.5MG/2ML AMP HHN SCH ×2 (09:08→20:08)
[2016-09-03] MEDS: ARFORMOTEROL TARTRATE 15MCG/2 ML AMP NEB SCH ×2 (09:39→21:31)
--- NOTE | 2016-09-03 09:48 | PN ---
Date/Time of Note Date/Time of Note DATE: 09/03/16 TIME: 09:42 Assessment/Plan VTE Prophylaxis VTE Prophylaxis Intervention: other (Coumadin) Lines/Catheters IV [facility] Type [facility] PICC Line Central line still needed: Yes Urinary Cath still in place: No Assessment/Plan Chief Complaint/Hosp Course A/P: 56 M with: 1. Status post cardiac arrest secondary to PEA. Status post trach and PEG. Family hesitant on changing the code status. EEG performed 08/24 with findings of: Abnormal study secondary to background slowing which could reflect encephalopathy. Could be anoxic or toxic metabolic in etiology. MRI brain on 08/26: Single focus of restricted diffusion in the left superior frontal lobe at the level of the precentral gyrus compatible with acute / subacute ischemic infarct. No edema, mass effect hemorrhage. - monitor, family explained in detail today at bedside yesterday about prognosis, including most likely poor outcome given encephalopathy - likely sec to anoxic brain injury from arrest on admission. Pt's son still wants full Neuro eval and repeat EEG. - will get Neuro consult as well, and order for repeat EEG - both pending. 2. Acute respiratory failure, hypoxic. - Continue ventilator management as per pulmonary. - Continue inhaled bronchodilators. 3. End-stage renal disease on hemodialysis. - Continue hemodialysis as per nephrology. - epogen 4. Status post systemic inflammatory response syndrome. Status post antibiotics - but still + fever and now + UA. - monitor, fevers likely central in origin 5. Paroxysmal atrial fibrillation with rapid ventricular response. Currently in sinus rhythm. - continue amiodarone and metoprolol. - continue warfarin for stroke prophylaxis. 6. Type 2 diabetes mellitus. Hemoglobin A1c 7.3. - Continue insulin sliding scale along with Lantus insulin. 7. Essential hypertension. - Continue antihypertensives. 8. Seizure disorder. Most probably secondary to anoxia. - Continue anticonvulsants. 9. Possible underlying anoxic encephalopathy. Again, brain MRI showing a single focus of restricted diffusion in the left superior frontal lobe at the level of the precentral gyrus compatible with acute/subacute ischemic infarct. - monitor for now -Neuro consult (see # 1) 10. Normocytic normochromic anemia, most probably anemia of chronic kidney disease. - Will monitor H and H closely, on epogen as well 11. Fluid, electrolytes and nutrition. - Continue G-tube feedings. 12. Deep venous thrombosis prophylaxis. On warfarin. 13. Gastrointestinal prophylaxis. Proton pump inhibitors. 14. fevers- UA + now. fever sec to neurogenic (central) in origin given likely anoxic brain injury vs sepsis from +UTI. Hx of Hep B+C positive as well. - start Cefepime, f/u repeat cx results (pending) - f/u ID rec's. PLAN: Continue inpatient care. Still holding valproic acid because of high serum levels on 08/27/16. Awaiting possible placement to a senior care facility. I spoke with [facility] medical associate 3 days ago to discuss pt's difficulty in placement due to ESRD on HD, + Hep B, PEA/anoxic brain injury, and trach dependent res failure - they will assist in possible placement of pt to appropriate healthcare facility. Problems: Subjective 24 Hr Interval Summary Free Text/Dictation Waiting to be re-evaluated by Neuro team. Seen by ID team, still + fevers, + UA results as well, awaiting HD for later today. Received blood transfusion yesterday as well. Exam/Review of Systems Vital Signs Vitals Vital Signs Date Time Temp Pulse Resp B/P Pulse Ox O2 Delivery O2 Flow Rate FiO2 09/03/16 08:12 96 09/03/16 07:34 100.1 16 123/66 97 09/03/16 03:31 Mechanical Ventilator 09/02/16 19:09 35 Intake and Output 09/02/16 09/02/16 09/03/16 15:00 23:00 07:00 Intake Total 1170 ml Balance 1170 ml Exam GENERAL: lying in bed with tracheostomy to vent, in no apparent distress, nonresponsive HEENT: Head normocephalic and atraumatic. Eyes: Anicteric sclerae. Conjunctivae clear. ENT: Nasal septum Oral mucosa is dry. NECK: Supple. Tracheostomy midline. RESPIRATORY: less bilateral diminished breath sounds. Tracheostomy connected to mechanical ventilator. CARDIAC: Regular rate and rhythm. No obvious murmurs heard. ABDOMEN: Soft, nontender and nondistended. Left upper quadrant G-tube in place. EXTREMITIES: No cyanosis, no clubbing, no edema. Peripheral pulses are palpable. NEUROLOGIC: The patient is obtunded. Opens eyes. Does not follow any commands. Results Result Diagram: 09/03/16 0550 09/01/16 1120 Results 24 hrs Laboratory Tests Test 09/02/16 11:53 09/02/16 17:37 09/03/16 01:02 09/03/16 04:30 Bedside Glucose 182 170 148 Urine Bacteria MANY Urine Bilirubin NEGATIVE Urine Clarity CLOUDY H Urine Color YELLOW Urine Glucose NEGATIVE Urine Hemoglobin 2+ H Urine Ketones NEGATIVE Urine Leukocyte Esterase NEGATIVE Urine Microscopic RBC 5-10 Urine Microscopic WBC >200 Urine Nitrite POSITIVE H Urine Specific [place] 1.015 Urine Total Protein 2+ H Urine Urobilinogen 0.2 E.U./dL Urine Yeast MODERATE Urine pH 6.0 Test 09/03/16 05:50 09/03/16 05:52 09/03/16 07:45 Basophils # 0.1 Basophils % 0.5 Eosinophils # 0.7 H Eosinophils % 3.9 Hematocrit 27.4 L Hemoglobin 8.8 L INR International Normalized Ratio 2.44 Lymphocytes # 3.6 H Lymphocytes % 20.3 Mean Corpuscular Hemoglobin 31.0 Mean Corpuscular Hemoglobin Concent 32.1 Mean Corpuscular Volume 96.5 Mean Platelet Volume 9.8 Monocytes # 1.6 H Monocytes % 8.9 Neutrophils # 10.9 H Neutrophils % 62.2 Nucleated Red Blood Cells # 0.1 H Nucleated Red Blood Cells % 0.7 H Platelet Count 257 Prothrombin Time 26.8 H Prothrombin Time Ratio 2.1 Red Blood Count 2.84 L Red Cell Distribution Width 17.9 H White Blood Count 17.5 H Bedside Glucose 131 139 Medications Medications Current Medications Labetalol HCl (Labetalol) 10 mg Q6H PRN IV sbp > 160 Last administered on 18:33; Admin Dose 10 MG; Start 07/28/16 at 00:30 Acetaminophen (Tylenol Supp) 650 mg Q6H PRN [place] PAIN AND OR ELEVATED TEMP Last administered on 07/31/16 17:30; Admin Dose 650 MG; Start 07/28/16 at 08:30 Miscellaneous Information 1 ea NOTE XX ; Start 07/28/16 at 09:00 Glucose (Glutose) 15 gm Q15M PRN PO DECREASED GLUCOSE; Start 07/28/16 at 09:00 Glucose (Glutose) 22.5 gm Q15M PRN PO DECREASED GLUCOSE; Start 07/28/16 at 09: 00 Dextrose (D50w Syringe) 25 ml Q15M PRN IV DECREASED GLUCOSE; Start 07/28/16 at 09:00 Dextrose (D50w Syringe) 50 ml Q15M PRN IV DECREASED GLUCOSE; Start 07/28/16 at 09:00 Glucagon (Glucagen) 1 mg Q15M PRN IM DECREASED GLUCOSE; Start 07/28/16 at 09:00 Glucose (Glutose) 15 gm Q15M PRN BUCCAL DECREASED GLUCOSE; Start 07/28/16 at 09 :00 IV Flush (NS 10 ml) 10 ml PRN PRN IV IV PROTOCOL; Start 07/29/16 at 17:00 Morphine Sulfate (morphine) 2 mg Q4 PRN IV PAIN Last administered on 08/12/16 23:38; Admin Dose 2 MG; Start 07/31/16 at 12:00 Lorazepam (Ativan) 1 mg Q1H PRN IV SEIZURES Last administered on 08/11/16 12:25 ; Admin Dose 1 MG; Start 08/02/16 at 02:00 Acetaminophen (Tylenol Liquid) 650 mg Q4H PRN NGT PAIN AND OR ELEVATED TEMP Last administered on 09/03/16 05:43; Admin Dose 650 MG; Start 08/03/16 at 00:00 Calcium Acetate (Phoslo) 667 mg Q6 NGT Last administered on 09/03/16 05:44; Admin Dose 667 MG; Start 08/05/16 at 08:30 Hydralazine HCl (Apresoline) 10 mg Q4H PRN IV ELEVATED SYSTOLIC BP Last administered on 09/02/16 00:58; Admin Dose 10 MG; Start 08/06/16 at 01:30 Eye Lubricant (Artificial Tears Oph) 2 drop TID BOTH EYES Last administered on 09/03/16 08:44; Admin Dose 2 DROP; Start 08/13/16 at 09:00 Metoprolol Tartrate (Lopressor) 50 mg BID NGT Last administered on 09/03/16 08: 45; Admin Dose 50 MG; Start 08/15/16 at 21:00 Amiodarone HCl (Cordarone) 200 mg DAILY NGT Last administered on 09/03/16 08:44 ; Admin Dose 200 MG; Start 08/18/16 at 09:00 Lansoprazole (Prevacid) 30 mg DAILY@06 NGT Last administered on 09/03/16 05:44 ; Admin Dose 30 MG; Start 08/18/16 at 06:00 Insulin Aspart (Novolog Insulin Pen) NOVOLOG *MODERATE* ALGORI... Q6 SC Last administered on 09/03/16 00:00; Admin Dose 2 UNIT; Start 08/19/16 at 00:00 Zinc Oxide (Desitin) 1 applic PRN PRN TOP RASH Last administered on 08/28/16 06:26; Admin Dose 1 APPLIC; Start 08/21/16 at 17:30 Sodium Bicarbonate (Sodium Bicarbonate Tab) 650 mg Q8 NGT Last administered on 09/03/16 05:44; Admin Dose 650 MG; Start 08/22/16 at 22:00 Insulin Human NPH (Humulin N) 44 unit SC Last administered on 08:45; Admin Dose 44 UNIT; Start 08/23/16 at 17:00 Warfarin Sodium (Coumadin) 5 mg DAILY@17 GTB Last administered on 09/02/16 17: 41; Admin Dose 5 MG; Start 08/27/16 at 17:00 Epoetin Eloy (Epogen (Esrd)) 10,000 units MoWeFr@17 SC Last administered on 09/02 17:43; Admin Dose 10,000 UNITS; Start 08/29/16 at 17:00 Levetiracetam 1000 mg 1,000 mg BID GTB Last administered on 09/03/16 08:44; Admin Dose 1,000 MG; Start 08/29/16 at 21:00 Cefepime HCl (Maxipime 2gm/50 ml (Pmx)) 50 ml @ 100 mls/hr Q12 IVPB ; Start 09/03/16 at 10:00; Status CAPRI MONREAL Sep 03, 2016 09:48
[2016-09-03] MEDS ORDERED: CEFEPIME 2GM/50 ML (PMX) 50 ML IVPB SCH (10:00)
[2016-09-03] MEDS: CEFEPIME 1GM/50 ML IVPB SCH (11:29)
--- NOTE | 2016-09-03 12:48 | CONS ---
Date/Time of Note Date/Time of Note DATE: 09/03/16 TIME: 12:42 Assessment/Plan Assessment/Plan Additional Assessment/Plan #1 end-stage renal disease. Dialysis scheduled for today #2 the patient is status post a cardiac arrest at home #3 altered level of consciousness, probable anoxic encephalopathy. His prognosis for recovery seems poor. #4 insulin-dependent diabetes mellitus #5 seizures #6 ventilator dependent respiratory failure , h/o COPD. #7 hyperphosphatemia , calcium acetate is being given . #8 new onset A fib , he was cardioverted and now is on warfarin . #9 on tube feeding #10 anemia , on Epogen #11 Leukocytosis, ID following. On antibiotics Consultation Date/Type/Reason Admit Date/Time Jul 27, 2016 at 23:29 Initial Consult Date 08/17/16 Type of Consultation: Nephrology Referring Provider: BARNEY MCKEE Exam/Review of Systems Vital Signs Vitals Vital Signs Date Time Temp Pulse Resp B/P Pulse Ox O2 Delivery O2 Flow Rate FiO2 09/03/16 12:18 91 09/03/16 11:40 99.6 16 89/52 96 09/03/16 03:31 Mechanical Ventilator 09/02/16 20:00 30 Intake and Output 09/02/16 09/02/16 09/03/16 15:00 23:00 07:00 Intake Total 1170 ml 810 ml Output Total 0 ml Balance 1170 ml 810 ml Exam Constitutional: non-verbal Head: normocephalic Respiratory: clear to auscultation Cardiovascular: regular rate and rhythm Gastrointestinal: soft Extremities: No edema Results Result Diagram: 09/03/16 0550 09/01/16 1120 Results 24 hrs Laboratory Tests Test 09/02/16 17:37 09/03/16 01:02 09/03/16 04:30 09/03/16 05:50 Bedside Glucose 170 148 Urine Bacteria MANY Urine Bilirubin NEGATIVE Urine Clarity CLOUDY H Urine Color YELLOW Urine Glucose NEGATIVE Urine Hemoglobin 2+ H Urine Ketones NEGATIVE Urine Leukocyte Esterase NEGATIVE Urine Microscopic RBC 5-10 Urine Microscopic WBC >200 Urine Nitrite POSITIVE H Urine Specific [place] 1.015 Urine Total Protein 2+ H Urine Urobilinogen 0.2 E.U./dL Urine Yeast MODERATE Urine pH 6.0 Basophils # 0.1 Basophils % 0.5 Eosinophils # 0.7 H Eosinophils % 3.9 Hematocrit 27.4 L Hemoglobin 8.8 L INR International Normalized Ratio 2.44 Lymphocytes # 3.6 H Lymphocytes % 20.3 Mean Corpuscular Hemoglobin 31.0 Mean Corpuscular Hemoglobin Concent 32.1 Mean Corpuscular Volume 96.5 Mean Platelet Volume 9.8 Monocytes # 1.6 H Monocytes % 8.9 Neutrophils # 10.9 H Neutrophils % 62.2 Nucleated Red Blood Cells # 0.1 H Nucleated Red Blood Cells % 0.7 H Platelet Count 257 Prothrombin Time 26.8 H Prothrombin Time Ratio 2.1 Red Blood Count 2.84 L Red Cell Distribution Width 17.9 H White Blood Count 17.5 H Test 09/03/16 05:52 09/03/16 07:45 09/03/16 11:32 Bedside Glucose 131 139 180 Medications Medications Current Medications Labetalol HCl (Labetalol) 10 mg Q6H PRN IV sbp > 160 Last administered on 18:33; Admin Dose 10 MG; Start 07/28/16 at 00:30 Acetaminophen (Tylenol Supp) 650 mg Q6H PRN IN PAIN AND OR ELEVATED TEMP Last administered on 07/31/16 17:30; Admin Dose 650 MG; Start 07/28/16 at 08:30 Miscellaneous Information 1 ea NOTE XX ; Start 07/28/16 at 09:00 Glucose (Glutose) 15 gm Q15M PRN PO DECREASED GLUCOSE; Start 07/28/16 at 09:00 Glucose (Glutose) 22.5 gm Q15M PRN PO DECREASED GLUCOSE; Start 07/28/16 at 09: 00 Dextrose (D50w Syringe) 25 ml Q15M PRN IV DECREASED GLUCOSE; Start 07/28/16 at 09:00 Dextrose (D50w Syringe) 50 ml Q15M PRN IV DECREASED GLUCOSE; Start 07/28/16 at 09:00 Glucagon (Glucagen) 1 mg Q15M PRN IM DECREASED GLUCOSE; Start 07/28/16 at 09:00 Glucose (Glutose) 15 gm Q15M PRN BUCCAL DECREASED GLUCOSE; Start 07/28/16 at 09 :00 IV Flush (NS 10 ml) 10 ml PRN PRN IV IV PROTOCOL; Start 07/29/16 at 17:00 Morphine Sulfate (morphine) 2 mg Q4 PRN IV PAIN Last administered on 08/12/16 23:38; Admin Dose 2 MG; Start 07/31/16 at 12:00 Lorazepam (Ativan) 1 mg Q1H PRN IV SEIZURES Last administered on 08/11/16 12:25 ; Admin Dose 1 MG; Start 08/02/16 at 02:00 Acetaminophen (Tylenol Liquid) 650 mg Q4H PRN NGT PAIN AND OR ELEVATED TEMP Last administered on 09/03/16 09:50; Admin Dose 650 MG; Start 08/03/16 at 00:00 Calcium Acetate (Phoslo) 667 mg Q6 NGT Last administered on 09/03/16 11:34; Admin Dose 667 MG; Start 08/05/16 at 08:30 Hydralazine HCl (Apresoline) 10 mg Q4H PRN IV ELEVATED SYSTOLIC BP Last administered on 09/02/16 00:58; Admin Dose 10 MG; Start 08/06/16 at 01:30 Eye Lubricant (Artificial Tears Oph) 2 drop TID BOTH EYES Last administered on 09/03/16 08:44; Admin Dose 2 DROP; Start 08/13/16 at 09:00 Metoprolol Tartrate (Lopressor) 50 mg BID NGT Last administered on 09/03/16 08: 45; Admin Dose 50 MG; Start 08/15/16 at 21:00 Amiodarone HCl (Cordarone) 200 mg DAILY NGT Last administered on 09/03/16 08:44 ; Admin Dose 200 MG; Start 08/18/16 at 09:00 Lansoprazole (Prevacid) 30 mg DAILY@06 NGT Last administered on 09/03/16 05:44 ; Admin Dose 30 MG; Start 08/18/16 at 06:00 Insulin Aspart (Novolog Insulin Pen) NOVOLOG *MODERATE* ALGORI... Q6 SC Last administered on 09/03/16 11:40; Admin Dose 2 UNIT; Start 08/19/16 at 00:00 Zinc Oxide (Desitin) 1 applic PRN PRN TOP RASH Last administered on 08/28/16 06:26; Admin Dose 1 APPLIC; Start 08/21/16 at 17:30 Sodium Bicarbonate (Sodium Bicarbonate Tab) 650 mg Q8 NGT Last administered on 09/03/16 05:44; Admin Dose 650 MG; Start 2/20/17 at 22:00 Insulin Human NPH (Humulin N) 44 unit SC Last administered on 08:45; Admin Dose 44 UNIT; Start 08/23/16 at 17:00 Warfarin Sodium (Coumadin) 5 mg DAILY@17 GTB Last administered on 09/02/16 17: 41; Admin Dose 5 MG; Start 08/27/16 at 17:00 Epoetin Eloy (Epogen (Esrd)) 10,000 units MoWeFr@17 SC Last administered on 09/02 17:43; Admin Dose 10,000 UNITS; Start 08/29/16 at 17:00 Levetiracetam 1000 mg 1,000 mg BID GTB Last administered on 09/03/16 08:44; Admin Dose 1,000 MG; Start 08/29/16 at 21:00 Cefepime HCl (Maxipime 1gm/50 ml (Pmx)) 50 ml @ 100 mls/hr Q24H IVPB Last administered on 09/03/16 11:29; Admin Dose 100 MLS/HR; Start 09/03/16 at 12:00 KEVIN JAIME MD Sep 03, 2016 12:48
[2016-09-03] MEDS ORDERED: ALBUMIN HUMAN 25% 100 ML IV ONE (14:00)
--- NOTE | 2016-09-03 14:23 | PN ---
DATE: 09/03/2016 SUBJECTIVE: No acute events overnight. The patient is nonverbal, noncommunicative, lying comfortab ly in bed. VITAL SIGNS: T-max this morning was 101.4, T-current 99.6, pulse 96, respirations 16, blood pressur e 123/66, saturation 96% on vent. LABORATORY DATA: WBC 17.5, H and H 8.8 and 27.4, platelets 257. INDWELLINGS: Trach, PEG, left upper extremity AV fistula. ANTIMICROBIALS: The patient is on Cefepime. DIAGNOSTICS: Chest x-ray from yesterday revealed bibasilar subsegmental atelectasis with patchy con solidation. MICROBIOLOGY: Cultures had been negative since admission. PHYSICAL EXAMINATION: GENERAL: This is a well-developed, middle-aged man who is lying comfortably in bed. HEENT: Head atraumatic, normocephalic. Sclerae anicteric. Buccal mucosa dry. NECK: Supple. Tracheostomy present. CHEST: Rise symmetrical. Breath sounds diminished to bases. HEART: S1, S2. ABDOMEN: Soft, bowel tones present. EXTREMITIES: Without cyanosis. ASSESSMENT: 1. Sepsis with persistent fevers and leukocytosis. 2. Healthcare-associated pneumonia. 3. End-stage renal disease, hemodialysis dependent. 4. Cerebrovascular accident. 5. Anoxic encephalopathy status post cardiopulmonary arrest. 6. Diabetes. PLAN: We are going to add vancomycin to the regimen and continue patient on cefepime. Follow sputu m cultures. Continued management of the patient as per primary team and consultants. Dictated By: AGUS CHEN PODIATRY ASSISTANT for MIKE CHANEY/BATSHEVA Conf#: [id number] DID#: [id number]
[2016-09-03] MEDS ORDERED: VANCOMYCIN IV PER PHARMACY XX SCH (14:30)
--- NOTE | 2016-09-03 15:31 | CONS ---
Date/Time of Note Date/Time of Note DATE: 09/03/16 TIME: 15:30 Consult Date/Type/Reason Admit Date/Time Jul 27, 2016 at 23:29 Initial Consult Date 07/28/16 Type of Consultation: Pulm Ordering Provider: BARNEY MCKEE Subjective No events overnight. Objective Vital Signs Date Time Temp Pulse Resp B/P Pulse Ox O2 Delivery O2 Flow Rate FiO2 09/03/16 14:30 98 09/03/16 13:01 16 96 35 09/03/16 11:40 99.6 89/52 09/03/16 03:31 Mechanical Ventilator Intake and Output 09/02/16 09/02/16 09/03/16 15:00 23:00 07:00 Intake Total 1170 ml 810 ml Output Total 0 ml Balance 1170 ml 810 ml HEENT: Neck supple; no JVD; no LAD, trach clean CVS: RRR, S1 and S2 CHEST: Clear ABD: Soft, NT, + BS EXT: No c/c/e Results/Medications Result Diagram: 09/03/16 0550 09/01/16 1120 Results 24 hrs Laboratory Tests Test 09/02/16 17:37 09/03/16 01:02 09/03/16 04:30 09/03/16 05:50 Bedside Glucose 170 148 Urine Bacteria MANY Urine Bilirubin NEGATIVE Urine Clarity CLOUDY H Urine Color YELLOW Urine Glucose NEGATIVE Urine Hemoglobin 2+ H Urine Ketones NEGATIVE Urine Leukocyte Esterase NEGATIVE Urine Microscopic RBC 5-10 Urine Microscopic WBC >200 Urine Nitrite POSITIVE H Urine Specific [place] 1.015 Urine Total Protein 2+ H Urine Urobilinogen 0.2 E.U./dL Urine Yeast MODERATE Urine pH 6.0 Basophils # 0.1 Basophils % 0.5 Eosinophils # 0.7 H Eosinophils % 3.9 Hematocrit 27.4 L Hemoglobin 8.8 L INR International Normalized Ratio 2.44 Lymphocytes # 3.6 H Lymphocytes % 20.3 Mean Corpuscular Hemoglobin 31.0 Mean Corpuscular Hemoglobin Concent 32.1 Mean Corpuscular Volume 96.5 Mean Platelet Volume 9.8 Monocytes # 1.6 H Monocytes % 8.9 Neutrophils # 10.9 H Neutrophils % 62.2 Nucleated Red Blood Cells # 0.1 H Nucleated Red Blood Cells % 0.7 H Platelet Count 257 Prothrombin Time 26.8 H Prothrombin Time Ratio 2.1 Red Blood Count 2.84 L Red Cell Distribution Width 17.9 H White Blood Count 17.5 H Test 09/03/16 05:52 09/03/16 07:45 09/03/16 11:32 Bedside Glucose 131 139 180 Medications Current Medications Labetalol HCl (Labetalol) 10 mg Q6H PRN IV sbp > 160 Last administered on 18:33; Admin Dose 10 MG; Start 07/28/16 at 00:30 Acetaminophen (Tylenol Supp) 650 mg Q6H PRN MA PAIN AND OR ELEVATED TEMP Last administered on 07/31/16 17:30; Admin Dose 650 MG; Start 07/28/16 at 08:30 Miscellaneous Information 1 ea NOTE XX ; Start 07/28/16 at 09:00 Glucose (Glutose) 15 gm Q15M PRN PO DECREASED GLUCOSE; Start 07/28/16 at 09:00 Glucose (Glutose) 22.5 gm Q15M PRN PO DECREASED GLUCOSE; Start 07/28/16 at 09: 00 Dextrose (D50w Syringe) 25 ml Q15M PRN IV DECREASED GLUCOSE; Start 07/28/16 at 09:00 Dextrose (D50w Syringe) 50 ml Q15M PRN IV DECREASED GLUCOSE; Start 07/28/16 at 09:00 Glucagon (Glucagen) 1 mg Q15M PRN IM DECREASED GLUCOSE; Start 07/28/16 at 09:00 Glucose (Glutose) 15 gm Q15M PRN BUCCAL DECREASED GLUCOSE; Start 07/28/16 at 09 :00 IV Flush (NS 10 ml) 10 ml PRN PRN IV IV PROTOCOL; Start 07/29/16 at 17:00 Morphine Sulfate (morphine) 2 mg Q4 PRN IV PAIN Last administered on 08/12/16 23:38; Admin Dose 2 MG; Start 07/31/16 at 12:00 Lorazepam (Ativan) 1 mg Q1H PRN IV SEIZURES Last administered on 08/11/16 12:25 ; Admin Dose 1 MG; Start 08/02/16 at 02:00 Acetaminophen (Tylenol Liquid) 650 mg Q4H PRN NGT PAIN AND OR ELEVATED TEMP Last administered on 09/03/16 09:50; Admin Dose 650 MG; Start 08/03/16 at 00:00 Calcium Acetate (Phoslo) 667 mg Q6 NGT Last administered on 09/03/16 11:34; Admin Dose 667 MG; Start 08/05/16 at 08:30 Hydralazine HCl (Apresoline) 10 mg Q4H PRN IV ELEVATED SYSTOLIC BP Last administered on 09/02/16 00:58; Admin Dose 10 MG; Start 08/06/16 at 01:30 Eye Lubricant (Artificial Tears Oph) 2 drop TID BOTH EYES Last administered on 09/03/16 13:41; Admin Dose 2 DROP; Start 08/13/16 at 09:00 Metoprolol Tartrate (Lopressor) 50 mg BID NGT Last administered on 09/03/16 08: 45; Admin Dose 50 MG; Start 08/15/16 at 21:00 Amiodarone HCl (Cordarone) 200 mg DAILY NGT Last administered on 09/03/16 08:44 ; Admin Dose 200 MG; Start 08/18/16 at 09:00 Lansoprazole (Prevacid) 30 mg DAILY@06 NGT Last administered on 09/03/16 05:44 ; Admin Dose 30 MG; Start 08/18/16 at 06:00 Insulin Aspart (Novolog Insulin Pen) NOVOLOG *MODERATE* ALGORI... Q6 SC Last administered on 09/03/16 11:40; Admin Dose 2 UNIT; Start 08/19/16 at 00:00 Zinc Oxide (Desitin) 1 applic PRN PRN TOP RASH Last administered on 08/28/16 06:26; Admin Dose 1 APPLIC; Start 08/21/16 at 17:30 Sodium Bicarbonate (Sodium Bicarbonate Tab) 650 mg Q8 NGT Last administered on 09/03/16 05:44; Admin Dose 650 MG; Start 08/22/16 at 22:00 Insulin Human NPH (Humulin N) 44 unit ,, SC Last administered on 08:45; Admin Dose 44 UNIT; Start 08/23/16 at 17:00 Warfarin Sodium (Coumadin) 5 mg DAILY@17 GTB Last administered on 09/02/16 17: 41; Admin Dose 5 MG; Start 08/27/16 at 17:00 Epoetin Eloy (Epogen (Esrd)) 10,000 units MoWeFr@17 SC Last administered on 09/02 17:43; Admin Dose 10,000 UNITS; Start 08/29/16 at 17:00 Levetiracetam 1000 mg 1,000 mg BID GTB Last administered on 09/03/16 08:44; Admin Dose 1,000 MG; Start 08/29/16 at 21:00 Cefepime HCl 50 ml @ 100 mls/hr Q24H IVPB Last administered on 09/03/16 11:29 ; Admin Dose 100 MLS/HR; Start 09/03/16 at 12:00 Vancomycin HCl/ Sodium Chloride (Vancocin/NS) 500 ml @ 125 mls/hr NOW IVPB ; Start 09/03/16 at 16:00; Stop 09/03/16 at 19:59 Assessment/Plan Additional Assessment/Plan IMPRESSION: 1. s/p Cardiopulmonary arrest. 2. Anoxic brain injury with anoxic seizures. 3. End-stage renal failure. Hyperkalemia with metabolic acidosis 4. No evidence of occlusive lesions on cardiac catheterization. 5. HTN heart Disease 6. Asthma RECS 1. Vent support 2. Stable for LTAC KAYLI ROBLES MD Sep 03, 2016 15:31
[2016-09-03] MEDS ORDERED: VANCOMYCIN 2 GM in SOD CHLORIDE 0.9% 500 ML IVPB SCH (16:00)
[2016-09-03] MEDS: WARFARIN 5 MG TAB GTB SCH (17:16)
[2016-09-04] VITALS (23 sets, daily range): BP systolic 85–164; BP diastolic 52–74; PULSE 93–104; RESP 16–17
[2016-09-04] MEDS: CALCIUM ACETATE 667 MG CAP NGT SCH ×5 (00:26→23:44)
[2016-09-04] MEDS: INSULIN ASPART [NOVOLOG] 3 ML PEN SC SCH ×5 (00:31→23:46)
[2016-09-04] MEDS: IPRATROPIUM (HFA) 12.9 GM INHALER INH SCH ×6 (01:12→21:32)
[2016-09-04] MEDS: ALBUTEROL HFA 8 GM INHALER INH SCH ×6 (01:12→21:32)
[2016-09-04] MEDS: NPH, HUMAN INSULIN ISOPHANE 3ML VIAL SC SCH ×3 (03:16→18:15)
[2016-09-04 06:16] LABS: ADD SCAN DIFF NO
[2016-09-04 06:23] LABS: BASOPHIL # 0.1 10^3/ul (0.0-0.1); BASOPHILS % 0.5 % (0.0-2.0); EOSINOPHILS # 0.6 10^3/ul (0.0-0.5); EOSINOPHILS % 4.3 % (0.0-7.0); HEMATOCRIT 27.4 % (42.0-52.0); HEMOGLOBIN 8.7 g/dl (14.0-18.0); LYMPHOCYTES # 2.8 10^3/ul (0.8-2.9); LYMPHOCYTES % 18.4 % (15.0-51.0); MEAN CORPUSCULAR HEMOGLOBIN 31.1 pg (29.0-33.0); MEAN CORPUSCULAR HGB CONC 31.8 g/dl (32.0-37.0); MEAN CORPUSCULAR VOLUME 97.9 fl (82.0-101.0); MEAN PLATELET VOLUME 9.6 fl (7.4-10.4); MONOCYTE # 1.1 10^3/ul (0.3-0.9); MONOCYTES % 7.6 % (0.0-11.0); NEUTROPHIL # 9.9 10^3/ul (1.6-7.5); NEUTROPHILS % 65.5 % (39.0-77.0); NUCLEATED RED BLOOD CELLS # 0.1 10^3/ul (0.0-0.0); NUCLEATED RED BLOOD CELLS% 0.4 /100WBC (0.0-0.0); PLATELET COUNT 255 10^3/UL (140-415); RED CELL DISTRIBUTION WIDTH 17.2 % (11.5-14.5)
[2016-09-04 06:32] LABS: INR 2.1; PROTIME 23.8 Sec (12.2-14.2); PT RATIO 1.9
[2016-09-04] MEDS: NA BICARBONATE 650 MG TAB NGT SCH ×3 (07:01→21:39)
[2016-09-04] MEDS: LANSOPRAZOLE 30 MG CAP NGT SCH (07:02)
[2016-09-04] MEDS: ARFORMOTEROL TARTRATE 15MCG/2 ML AMP NEB SCH ×2 (09:00→20:01)
[2016-09-04] MEDS: METOPROLOL 50 MG TAB NGT SCH ×2 (09:00→21:40)
[2016-09-04] MEDS: BUDESONIDE (NEB) 0.5MG/2ML AMP HHN SCH ×2 (09:00→20:01)
[2016-09-04] MEDS: ACETAMINOPHEN 650MG/20.3ML CUP NGT PRN ×2 (09:22→13:52)
[2016-09-04] MEDS: ARTIFICIAL TEARS 15 ML OPH BOTH EYES SCH ×3 (09:22→21:38)
[2016-09-04] MEDS: LEVETIRACETAM (100 MG/ML) 5ML CUP GTB SCH ×2 (09:23→21:38)
[2016-09-04] MEDS: AMIODARONE 200 MG TAB NGT SCH (09:25)
[2016-09-04] MEDS: CEFEPIME 1GM/50 ML IVPB SCH (12:08)
--- NOTE | 2016-09-04 12:51 | CONS ---
Date/Time of Note Date/Time of Note DATE: 09/04/16 TIME: 12:49 Assessment/Plan Assessment/Plan Additional Assessment/Plan #1 end-stage renal disease. Dialysis scheduled for tomorrow #2 the patient is status post a cardiac arrest at home #3 altered level of consciousness, probable anoxic encephalopathy. His prognosis for recovery is poor. #4 insulin-dependent diabetes mellitus, controlled #5 seizures #6 ventilator dependent respiratory failure , h/o COPD. #7 hyperphosphatemia , calcium acetate is being given . #8 new onset A fib , he was cardioverted and now is on warfarin . #9 on tube feeding #10 anemia , on Epogen #11 Leukocytosis, ID following. On antibiotics Consultation Date/Type/Reason Admit Date/Time Jul 27, 2016 at 23:29 Initial Consult Date 08/17/16 Type of Consultation: Nephrology Referring Provider: BARNEY MCKEE 24 HR Interval Summary Subjective hx not possible: pt non-verbal Exam/Review of Systems Vital Signs Vitals Vital Signs Date Time Temp Pulse Resp B/P Pulse Ox O2 Delivery O2 Flow Rate FiO2 09/04/16 12:27 93 09/04/16 11:51 101.2 16 118/62 96 09/04/16 10:57 35 09/03/16 03:31 Mechanical Ventilator Intake and Output 09/03/16 09/03/16 09/04/16 15:00 23:00 07:00 Intake Total 500 ml 650 ml Output Total 1500 ml 0 ml Balance -1000 ml 650 ml Exam Neck: other, No jvd Respiratory: clear to auscultation Cardiovascular: regular rate and rhythm Gastrointestinal: soft Extremities: No edema Results Result Diagram: 09/04/16 0600 09/01/16 1120 Results 24 hrs Laboratory Tests Test 09/03/16 17:17 09/04/16 00:24 09/04/16 06:00 09/04/16 07:11 Bedside Glucose 178 158 186 Basophils # 0.1 Basophils % 0.5 Eosinophils # 0.6 H Eosinophils % 4.3 Hematocrit 27.4 L Hemoglobin 8.7 L INR International Normalized Ratio 2.10 Lymphocytes # 2.8 Lymphocytes % 18.4 Mean Corpuscular Hemoglobin 31.1 Mean Corpuscular Hemoglobin Concent 31.8 L Mean Corpuscular Volume 97.9 Mean Platelet Volume 9.6 Monocytes # 1.1 H Monocytes % 7.6 Neutrophils # 9.9 H Neutrophils % 65.5 Nucleated Red Blood Cells # 0.1 H Nucleated Red Blood Cells % 0.4 H Platelet Count 255 Prothrombin Time 23.8 H Prothrombin Time Ratio 1.9 Red Blood Count 2.80 L Red Cell Distribution Width 17.2 H White Blood Count 15.0 H Test 09/04/16 12:00 Bedside Glucose 205 Medications Medications Current Medications Labetalol HCl (Labetalol) 10 mg Q6H PRN IV sbp > 160 Last administered on 18:33; Admin Dose 10 MG; Start 07/28/16 at 00:30 Acetaminophen (Tylenol Supp) 650 mg Q6H PRN MS PAIN AND OR ELEVATED TEMP Last administered on 07/31/16 17:30; Admin Dose 650 MG; Start 07/28/16 at 08:30 Miscellaneous Information 1 ea NOTE XX ; Start 07/28/16 at 09:00 Glucose (Glutose) 15 gm Q15M PRN PO DECREASED GLUCOSE; Start 07/28/16 at 09:00 Glucose (Glutose) 22.5 gm Q15M PRN PO DECREASED GLUCOSE; Start 07/28/16 at 09: 00 Dextrose (D50w Syringe) 25 ml Q15M PRN IV DECREASED GLUCOSE; Start 07/28/16 at 09:00 Dextrose (D50w Syringe) 50 ml Q15M PRN IV DECREASED GLUCOSE; Start 07/28/16 at 09:00 Glucagon (Glucagen) 1 mg Q15M PRN IM DECREASED GLUCOSE; Start 07/28/16 at 09:00 Glucose (Glutose) 15 gm Q15M PRN BUCCAL DECREASED GLUCOSE; Start 07/28/16 at 09 :00 IV Flush (NS 10 ml) 10 ml PRN PRN IV IV PROTOCOL; Start 07/29/16 at 17:00 Morphine Sulfate (morphine) 2 mg Q4 PRN IV PAIN Last administered on 08/12/16 23:38; Admin Dose 2 MG; Start 07/31/16 at 12:00 Lorazepam (Ativan) 1 mg Q1H PRN IV SEIZURES Last administered on 08/11/16 12:25 ; Admin Dose 1 MG; Start 08/02/16 at 02:00 Acetaminophen (Tylenol Liquid) 650 mg Q4H PRN NGT PAIN AND OR ELEVATED TEMP Last administered on 09/04/16 09:22; Admin Dose 650 MG; Start 08/03/16 at 00:00 Calcium Acetate (Phoslo) 667 mg Q6 NGT Last administered on 09/04/16 11:57; Admin Dose 667 MG; Start 08/05/16 at 08:30 Hydralazine HCl (Apresoline) 10 mg Q4H PRN IV ELEVATED SYSTOLIC BP Last administered on 09/02/16 00:58; Admin Dose 10 MG; Start 08/06/16 at 01:30 Eye Lubricant (Artificial Tears Oph) 2 drop TID BOTH EYES Last administered on 09/04/16 09:22; Admin Dose 2 DROP; Start 08/13/16 at 09:00 Metoprolol Tartrate (Lopressor) 50 mg BID NGT Last administered on 09/03/16 21: 36; Admin Dose 50 MG; Start 08/15/16 at 21:00 Amiodarone HCl (Cordarone) 200 mg DAILY NGT Last administered on 09/04/16 09:25 ; Admin Dose 200 MG; Start 08/18/16 at 09:00 Lansoprazole (Prevacid) 30 mg DAILY@06 NGT Last administered on 09/04/16 07:02 ; Admin Dose 30 MG; Start 08/18/16 at 06:00 Insulin Aspart (Novolog Insulin Pen) NOVOLOG *MODERATE* ALGORI... Q6 SC Last administered on 09/04/16 12:06; Admin Dose 4 UNIT; Start 08/19/16 at 00:00 Zinc Oxide (Desitin) 1 applic PRN PRN TOP RASH Last administered on 08/28/16 06:26; Admin Dose 1 APPLIC; Start 08/21/16 at 17:30 Sodium Bicarbonate (Sodium Bicarbonate Tab) 650 mg Q8 NGT Last administered on 09/04/16 07:01; Admin Dose 650 MG; Start 08/22/16 at 22:00 Insulin Human NPH (Humulin N) 44 unit ,, SC Last administered on 09:37; Admin Dose 44 UNIT; Start 08/23/16 at 17:00 Warfarin Sodium (Coumadin) 5 mg DAILY@17 GTB Last administered on 09/03/16 17: 16; Admin Dose 5 MG; Start 08/27/16 at 17:00 Epoetin Eloy (Epogen (Esrd)) 10,000 units MoWeFr@17 SC Last administered on 09/02 17:43; Admin Dose 10,000 UNITS; Start 08/29/16 at 17:00 Levetiracetam 1000 mg 1,000 mg BID GTB Last administered on 09/04/16 09:23; Admin Dose 1,000 MG; Start 08/29/16 at 21:00 Cefepime HCl 50 ml @ 100 mls/hr Q24H IVPB Last administered on 09/04/16 12:08 ; Admin Dose 100 MLS/HR; Start 09/03/16 at 12:00 Vancomycin HCl (Vancocin) 250 ml @ 125 mls/hr Q96H IVPB ; Start 09/05/16 at 16: 00 KEVIN JAIME MD Sep 04, 2016 12:50
--- NOTE | 2016-09-04 13:18 | PN ---
Date/Time of Note Date/Time of Note DATE: 09/04/16 TIME: 13:17 Assessment/Plan VTE Prophylaxis VTE Prophylaxis Intervention: other (Coumadin) Lines/Catheters IV Catheter Type (from [facility]): PICC Line Central line still needed: Yes Urinary Cath still in place: No Assessment/Plan Chief Complaint/Hosp Course A/P: 56 M with: 1. Status post cardiac arrest secondary to PEA. Status post trach and PEG. Family hesitant on changing the code status. EEG performed 08/24 with findings of: Abnormal study secondary to background slowing which could reflect encephalopathy. Could be anoxic or toxic metabolic in etiology. MRI brain on 08/26: Single focus of restricted diffusion in the left superior frontal lobe at the level of the precentral gyrus compatible with acute / subacute ischemic infarct. No edema, mass effect hemorrhage. - monitor, family explained in detail today at bedside yesterday about prognosis, including most likely poor outcome given encephalopathy - likely sec to anoxic brain injury from arrest on admission. Pt's son still wants full Neuro eval and repeat EEG. - f/u Neuro consult rec's, possible repeat EEG 2. Acute respiratory failure, hypoxic. - Continue ventilator management as per pulmonary. - Continue inhaled bronchodilators. 3. End-stage renal disease on hemodialysis. - Continue hemodialysis as per nephrology. - epogen 4. Status post systemic inflammatory response syndrome. Status post antibiotics - but still + fever and now + UA. - monitor, fevers likely central in origin 5. Paroxysmal atrial fibrillation with rapid ventricular response. Currently in sinus rhythm. - continue amiodarone and metoprolol. - continue warfarin for stroke prophylaxis. 6. Type 2 diabetes mellitus. Hemoglobin A1c 7.3. - Continue insulin sliding scale along with Lantus insulin. 7. Essential hypertension. - Continue antihypertensives. 8. Seizure disorder. Most probably secondary to anoxia. - Continue anticonvulsants. 9. Possible underlying anoxic encephalopathy. Again, brain MRI showing a single focus of restricted diffusion in the left superior frontal lobe at the level of the precentral gyrus compatible with acute/subacute ischemic infarct. - monitor for now -Neuro consult (see # 1) 10. Normocytic normochromic anemia, most probably anemia of chronic kidney disease. - Will monitor H and H closely, on epogen as well 11. Fluid, electrolytes and nutrition. - Continue G-tube feedings. 12. Deep venous thrombosis prophylaxis. On warfarin. 13. Gastrointestinal prophylaxis. Proton pump inhibitors. 14. fevers- UA + now. fever sec to neurogenic (central) in origin given likely anoxic brain injury vs sepsis from +UTI. Hx of Hep B+C positive as well. - continue abx, f/u repeat cx results (pending) - f/u ID rec's. PLAN: Continue inpatient care. Still holding valproic acid because of high serum levels on 08/27/16. Awaiting possible placement to a nursing home facility. I spoke with [facility] faculty i on call medical assistant 3 days ago to discuss pt's difficulty in placement due to ESRD on HD, + Hep B, PEA/anoxic brain injury, and trach dependent res failure - they will assist in possible placement of pt to appropriate healthcare facility. Problems: Subjective 24 Hr Interval Summary Free Text/Dictation Still + fevers. Exam/Review of Systems Vital Signs Vitals Vital Signs Date Time Temp Pulse Resp B/P Pulse Ox O2 Delivery O2 Flow Rate FiO2 09/04/16 13:10 95 16 96 35 09/04/16 11:51 101.2 118/62 09/03/16 03:31 Mechanical Ventilator Intake and Output 09/03/16 09/03/16 09/04/16 15:00 23:00 07:00 Intake Total 500 ml 650 ml Output Total 1500 ml 0 ml Balance -1000 ml 650 ml Exam GENERAL: lying in bed with tracheostomy to vent, in no apparent distress, nonresponsive HEENT: Head normocephalic and atraumatic. Eyes: Anicteric sclerae. Conjunctivae clear. ENT: Nasal septum Oral mucosa is dry. NECK: Supple. Tracheostomy midline. RESPIRATORY: less bilateral diminished breath sounds. Tracheostomy connected to mechanical ventilator. CARDIAC: Regular rate and rhythm. No obvious murmurs heard. ABDOMEN: Soft, nontender and nondistended. Left upper quadrant G-tube in place. EXTREMITIES: No cyanosis, no clubbing, no edema. Peripheral pulses are palpable. NEUROLOGIC: The patient is obtunded. Opens eyes. Does not follow any commands. Results Result Diagram: 09/04/16 0600 09/01/16 1120 Results 24 hrs Laboratory Tests Test 09/03/16 17:17 09/04/16 00:24 09/04/16 06:00 09/04/16 07:11 Bedside Glucose 178 158 186 Basophils # 0.1 Basophils % 0.5 Eosinophils # 0.6 H Eosinophils % 4.3 Hematocrit 27.4 L Hemoglobin 8.7 L INR International Normalized Ratio 2.10 Lymphocytes # 2.8 Lymphocytes % 18.4 Mean Corpuscular Hemoglobin 31.1 Mean Corpuscular Hemoglobin Concent 31.8 L Mean Corpuscular Volume 97.9 Mean Platelet Volume 9.6 Monocytes # 1.1 H Monocytes % 7.6 Neutrophils # 9.9 H Neutrophils % 65.5 Nucleated Red Blood Cells # 0.1 H Nucleated Red Blood Cells % 0.4 H Platelet Count 255 Prothrombin Time 23.8 H Prothrombin Time Ratio 1.9 Red Blood Count 2.80 L Red Cell Distribution Width 17.2 H White Blood Count 15.0 H Test 09/04/16 12:00 Bedside Glucose 205 Medications Medications Current Medications Labetalol HCl (Labetalol) 10 mg Q6H PRN IV sbp > 160 Last administered on 18:33; Admin Dose 10 MG; Start 07/28/16 at 00:30 Acetaminophen (Tylenol Supp) 650 mg Q6H PRN [place] PAIN AND OR ELEVATED TEMP Last administered on 07/31/16 17:30; Admin Dose 650 MG; Start 07/28/16 at 08:30 Miscellaneous Information 1 ea NOTE XX ; Start 07/28/16 at 09:00 Glucose (Glutose) 15 gm Q15M PRN PO DECREASED GLUCOSE; Start 07/28/16 at 09:00 Glucose (Glutose) 22.5 gm Q15M PRN PO DECREASED GLUCOSE; Start 07/28/16 at 09: 00 Dextrose (D50w Syringe) 25 ml Q15M PRN IV DECREASED GLUCOSE; Start 07/28/16 at 09:00 Dextrose (D50w Syringe) 50 ml Q15M PRN IV DECREASED GLUCOSE; Start 07/28/16 at 09:00 Glucagon (Glucagen) 1 mg Q15M PRN IM DECREASED GLUCOSE; Start 07/28/16 at 09:00 Glucose (Glutose) 15 gm Q15M PRN BUCCAL DECREASED GLUCOSE; Start 07/28/16 at 09 :00 IV Flush (NS 10 ml) 10 ml PRN PRN IV IV PROTOCOL; Start 07/29/16 at 17:00 Morphine Sulfate (morphine) 2 mg Q4 PRN IV PAIN Last administered on 08/12/16 23:38; Admin Dose 2 MG; Start 07/31/16 at 12:00 Lorazepam (Ativan) 1 mg Q1H PRN IV SEIZURES Last administered on 08/11/16 12:25 ; Admin Dose 1 MG; Start 08/02/16 at 02:00 Acetaminophen (Tylenol Liquid) 650 mg Q4H PRN NGT PAIN AND OR ELEVATED TEMP Last administered on 09/04/16 09:22; Admin Dose 650 MG; Start 08/03/16 at 00:00 Calcium Acetate (Phoslo) 667 mg Q6 NGT Last administered on 09/04/16 11:57; Admin Dose 667 MG; Start 08/05/16 at 08:30 Hydralazine HCl (Apresoline) 10 mg Q4H PRN IV ELEVATED SYSTOLIC BP Last administered on 09/02/16 00:58; Admin Dose 10 MG; Start 08/06/16 at 01:30 Eye Lubricant (Artificial Tears Oph) 2 drop TID BOTH EYES Last administered on 09/04/16 09:22; Admin Dose 2 DROP; Start 08/13/16 at 09:00 Metoprolol Tartrate (Lopressor) 50 mg BID NGT Last administered on 09/03/16 21: 36; Admin Dose 50 MG; Start 08/15/16 at 21:00 Amiodarone HCl (Cordarone) 200 mg DAILY NGT Last administered on 09/04/16 09:25 ; Admin Dose 200 MG; Start 08/18/16 at 09:00 Lansoprazole (Prevacid) 30 mg DAILY@06 NGT Last administered on 09/04/16 07:02 ; Admin Dose 30 MG; Start 08/18/16 at 06:00 Insulin Aspart (Novolog Insulin Pen) NOVOLOG *MODERATE* ALGORI... Q6 SC Last administered on 09/04/16 12:06; Admin Dose 4 UNIT; Start 08/19/16 at 00:00 Zinc Oxide (Desitin) 1 applic PRN PRN TOP RASH Last administered on 08/28/16 06:26; Admin Dose 1 APPLIC; Start 08/21/16 at 17:30 Sodium Bicarbonate (Sodium Bicarbonate Tab) 650 mg Q8 NGT Last administered on 09/04/16 07:01; Admin Dose 650 MG; Start 2/20/17 at 22:00 Insulin Human NPH (Humulin N) 44 unit SC Last administered on 09:37; Admin Dose 44 UNIT; Start 08/23/16 at 17:00 Warfarin Sodium (Coumadin) 5 mg DAILY@17 GTB Last administered on 09/03/16 17: 16; Admin Dose 5 MG; Start 08/27/16 at 17:00 Epoetin Eloy (Epogen (Esrd)) 10,000 units MoWeFr@17 SC Last administered on 09/02 17:43; Admin Dose 10,000 UNITS; Start 08/29/16 at 17:00 Levetiracetam 1000 mg 1,000 mg BID GTB Last administered on 09/04/16 09:23; Admin Dose 1,000 MG; Start 08/29/16 at 21:00 Cefepime HCl 50 ml @ 100 mls/hr Q24H IVPB Last administered on 09/04/16 12:08 ; Admin Dose 100 MLS/HR; Start 09/03/16 at 12:00 Vancomycin HCl (Vancocin) 250 ml @ 125 mls/hr Q96H IVPB ; Start 09/05/16 at 16: 00 CAPRI CHAPA Sep 04, 2016 13:18
--- NOTE | 2016-09-04 15:17 | CONS ---
Date/Time of Note Date/Time of Note DATE: 09/04/16 TIME: 15:15 Assessment/Plan Assessment/Plan Chief Complaint/Hosp Course SUBJECTIVE: No acute events overnight. The patient is nonverbal, noncommunicative, lying comfortably in bed. INDWELLINGS: Trach, PEG, left upper extremity AV fistula. ANTIMICROBIALS: Vanco, Cefepime. MICROBIOLOGY: Cultures had been negative since admission. Sputum cx + GNR PHYSICAL EXAMINATION: GENERAL: This is a well-developed, middle-aged man who is lying comfortably in bed. HEENT: Head atraumatic, normocephalic. Sclerae anicteric. Buccal mucosa dry. NECK: Supple. Tracheostomy present. CHEST: Rise symmetrical. Breath sounds diminished to bases. HEART: S1, S2. ABDOMEN: Soft, bowel tones present. EXTREMITIES: Without cyanosis. ASSESSMENT: 1. Sepsis with persistent fevers and leukocytosis. 2. Healthcare-associated pneumonia. 3. End-stage renal disease, hemodialysis dependent. 4. Cerebrovascular accident. 5. Anoxic encephalopathy status post cardiopulmonary arrest. 6. Diabetes. PLAN: Stable, continue present care, abx, follow sputum cultures. Continued management as per primary team and consultants. DW staff Problems: Consultation Date/Type/Reason Admit Date/Time Jul 27, 2016 at 23:29 Initial Consult Date 08/17/16 Type of Consultation: id Referring Provider: BARNEY MCKEE Exam/Review of Systems Vital Signs Vitals Vital Signs Date Time Temp Pulse Resp B/P Pulse Ox O2 Delivery O2 Flow Rate FiO2 09/04/16 13:10 95 16 96 35 09/04/16 11:51 101.2 118/62 09/03/16 03:31 Mechanical Ventilator Intake and Output 09/03/16 09/03/16 09/04/16 14:59 22:59 06:59 Intake Total 500 ml 650 ml Output Total 1500 ml 0 ml Balance -1000 ml 650 ml Results Result Diagram: 09/04/16 0600 09/01/16 1120 Results 24 hrs Laboratory Tests Test 09/03/16 17:17 09/04/16 00:24 09/04/16 06:00 09/04/16 07:11 Bedside Glucose 178 158 186 Basophils # 0.1 Basophils % 0.5 Eosinophils # 0.6 H Eosinophils % 4.3 Hematocrit 27.4 L Hemoglobin 8.7 L INR International Normalized Ratio 2.10 Lymphocytes # 2.8 Lymphocytes % 18.4 Mean Corpuscular Hemoglobin 31.1 Mean Corpuscular Hemoglobin Concent 31.8 L Mean Corpuscular Volume 97.9 Mean Platelet Volume 9.6 Monocytes # 1.1 H Monocytes % 7.6 Neutrophils # 9.9 H Neutrophils % 65.5 Nucleated Red Blood Cells # 0.1 H Nucleated Red Blood Cells % 0.4 H Platelet Count 255 Prothrombin Time 23.8 H Prothrombin Time Ratio 1.9 Red Blood Count 2.80 L Red Cell Distribution Width 17.2 H White Blood Count 15.0 H Test 09/04/16 12:00 Bedside Glucose 205 Medications Medications Current Medications Labetalol HCl (Labetalol) 10 mg Q6H PRN IV sbp > 160 Last administered on 18:33; Admin Dose 10 MG; Start 07/28/16 at 00:30 Acetaminophen (Tylenol Supp) 650 mg Q6H PRN [place] PAIN AND OR ELEVATED TEMP Last administered on 07/31/16 17:30; Admin Dose 650 MG; Start 07/28/16 at 08:30 Miscellaneous Information 1 ea NOTE XX ; Start 07/28/16 at 09:00 Glucose (Glutose) 15 gm Q15M PRN PO DECREASED GLUCOSE; Start 07/28/16 at 09:00 Glucose (Glutose) 22.5 gm Q15M PRN PO DECREASED GLUCOSE; Start 07/28/16 at 09: 00 Dextrose (D50w Syringe) 25 ml Q15M PRN IV DECREASED GLUCOSE; Start 07/28/16 at 09:00 Dextrose (D50w Syringe) 50 ml Q15M PRN IV DECREASED GLUCOSE; Start 07/28/16 at 09:00 Glucagon (Glucagen) 1 mg Q15M PRN IM DECREASED GLUCOSE; Start 07/28/16 at 09:00 Glucose (Glutose) 15 gm Q15M PRN BUCCAL DECREASED GLUCOSE; Start 07/28/16 at 09 :00 IV Flush (NS 10 ml) 10 ml PRN PRN IV IV PROTOCOL; Start 07/29/16 at 17:00 Morphine Sulfate (morphine) 2 mg Q4 PRN IV PAIN Last administered on 08/12/16 23:38; Admin Dose 2 MG; Start 07/31/16 at 12:00 Lorazepam (Ativan) 1 mg Q1H PRN IV SEIZURES Last administered on 08/11/16 12:25 ; Admin Dose 1 MG; Start 08/02/16 at 02:00 Acetaminophen (Tylenol Liquid) 650 mg Q4H PRN NGT PAIN AND OR ELEVATED TEMP Last administered on 09/04/16 13:52; Admin Dose 650 MG; Start 08/03/16 at 00:00 Calcium Acetate (Phoslo) 667 mg Q6 NGT Last administered on 09/04/16 11:57; Admin Dose 667 MG; Start 08/05/16 at 08:30 Hydralazine HCl (Apresoline) 10 mg Q4H PRN IV ELEVATED SYSTOLIC BP Last administered on 09/02/16 00:58; Admin Dose 10 MG; Start 08/06/16 at 01:30 Eye Lubricant (Artificial Tears Oph) 2 drop TID BOTH EYES Last administered on 09/04/16 13:52; Admin Dose 2 DROP; Start 08/13/16 at 09:00 Metoprolol Tartrate (Lopressor) 50 mg BID NGT Last administered on 09/03/16 21: 36; Admin Dose 50 MG; Start 08/15/16 at 21:00 Amiodarone HCl (Cordarone) 200 mg DAILY NGT Last administered on 09/04/16 09:25 ; Admin Dose 200 MG; Start 08/18/16 at 09:00 Lansoprazole (Prevacid) 30 mg DAILY@06 NGT Last administered on 09/04/16 07:02 ; Admin Dose 30 MG; Start 08/18/16 at 06:00 Insulin Aspart (Novolog Insulin Pen) NOVOLOG *MODERATE* ALGORI... Q6 SC Last administered on 09/04/16 12:06; Admin Dose 4 UNIT; Start 08/19/16 at 00:00 Zinc Oxide (Desitin) 1 applic PRN PRN TOP RASH Last administered on 08/28/16 06:26; Admin Dose 1 APPLIC; Start 08/21/16 at 17:30 Sodium Bicarbonate (Sodium Bicarbonate Tab) 650 mg Q8 NGT Last administered on 09/04/16 13:52; Admin Dose 650 MG; Start 08/22/16 at 22:00 Insulin Human NPH (Humulin N) 44 unit ,, SC Last administered on 09:37; Admin Dose 44 UNIT; Start 08/23/16 at 17:00 Warfarin Sodium (Coumadin) 5 mg DAILY@17 GTB Last administered on 09/03/16 17: 16; Admin Dose 5 MG; Start 08/27/16 at 17:00 Epoetin Eloy (Epogen (Esrd)) 10,000 units MoWeFr@17 SC Last administered on 09/02 17:43; Admin Dose 10,000 UNITS; Start 08/29/16 at 17:00 Levetiracetam 1000 mg 1,000 mg BID GTB Last administered on 09/04/16 09:23; Admin Dose 1,000 MG; Start 08/29/16 at 21:00 Cefepime HCl 50 ml @ 100 mls/hr Q24H IVPB Last administered on 09/04/16 12:08 ; Admin Dose 100 MLS/HR; Start 09/03/16 at 12:00 Vancomycin HCl (Vancocin) 250 ml @ 125 mls/hr Q96H IVPB ; Start 09/05/16 at 16: 00 AGUS CHEN NP Sep 04, 2016 15:17
--- NOTE | 2016-09-04 15:44 | CONS ---
Date/Time of Note Date/Time of Note DATE: 09/04/16 TIME: 15:42 Consult Date/Type/Reason Admit Date/Time Jul 27, 2016 at 23:29 Initial Consult Date 07/28/16 Type of Consultation: Pulm Ordering Provider: BARNEY MCKEE Subjective No events on [facility] ventilation Objective Vital Signs Date Time Temp Pulse Resp B/P Pulse Ox O2 Delivery O2 Flow Rate FiO2 09/04/16 13:10 95 16 96 35 09/04/16 11:51 101.2 118/62 09/03/16 03:31 Mechanical Ventilator Intake and Output 09/03/16 09/03/16 09/04/16 15:00 23:00 07:00 Intake Total 500 ml 650 ml Output Total 1500 ml 0 ml Balance -1000 ml 650 ml HEENT: Neck supple; no JVD; no LAD, trach clean CVS: RRR, S1 and S2 CHEST: Clear ABD: Soft, NT, + BS EXT: No c/c/ trace edema Results/Medications Result Diagram: 09/04/16 0600 09/01/16 1120 Results 24 hrs Laboratory Tests Test 09/03/16 17:17 09/04/16 00:24 09/04/16 06:00 09/04/16 07:11 Bedside Glucose 178 158 186 Basophils # 0.1 Basophils % 0.5 Eosinophils # 0.6 H Eosinophils % 4.3 Hematocrit 27.4 L Hemoglobin 8.7 L INR International Normalized Ratio 2.10 Lymphocytes # 2.8 Lymphocytes % 18.4 Mean Corpuscular Hemoglobin 31.1 Mean Corpuscular Hemoglobin Concent 31.8 L Mean Corpuscular Volume 97.9 Mean Platelet Volume 9.6 Monocytes # 1.1 H Monocytes % 7.6 Neutrophils # 9.9 H Neutrophils % 65.5 Nucleated Red Blood Cells # 0.1 H Nucleated Red Blood Cells % 0.4 H Platelet Count 255 Prothrombin Time 23.8 H Prothrombin Time Ratio 1.9 Red Blood Count 2.80 L Red Cell Distribution Width 17.2 H White Blood Count 15.0 H Test 09/04/16 12:00 Bedside Glucose 205 Medications Current Medications Labetalol HCl (Labetalol) 10 mg Q6H PRN IV sbp > 160 Last administered on t 18:33; Admin Dose 10 MG; Start 07/28/16 at 00:30 Acetaminophen (Tylenol Supp) 650 mg Q6H PRN [place] PAIN AND OR ELEVATED TEMP Last administered on 07/31/16 17:30; Admin Dose 650 MG; Start 07/28/16 at 08:30 Miscellaneous Information 1 ea NOTE XX ; Start 07/28/16 at 09:00 Glucose (Glutose) 15 gm Q15M PRN PO DECREASED GLUCOSE; Start 07/28/16 at 09:00 Glucose (Glutose) 22.5 gm Q15M PRN PO DECREASED GLUCOSE; Start 07/28/16 at 09: 00 Dextrose (D50w Syringe) 25 ml Q15M PRN IV DECREASED GLUCOSE; Start 07/28/16 at 09:00 Dextrose (D50w Syringe) 50 ml Q15M PRN IV DECREASED GLUCOSE; Start 07/28/16 at 09:00 Glucagon (Glucagen) 1 mg Q15M PRN IM DECREASED GLUCOSE; Start 07/28/16 at 09:00 Glucose (Glutose) 15 gm Q15M PRN BUCCAL DECREASED GLUCOSE; Start 07/28/16 at 09 :00 IV Flush (NS 10 ml) 10 ml PRN PRN IV IV PROTOCOL; Start 07/29/16 at 17:00 Morphine Sulfate (morphine) 2 mg Q4 PRN IV PAIN Last administered on 08/12/16 23:38; Admin Dose 2 MG; Start 07/31/16 at 12:00 Lorazepam (Ativan) 1 mg Q1H PRN IV SEIZURES Last administered on 08/11/16 12:25 ; Admin Dose 1 MG; Start 08/02/16 at 02:00 Acetaminophen (Tylenol Liquid) 650 mg Q4H PRN NGT PAIN AND OR ELEVATED TEMP Last administered on 09/04/16 13:52; Admin Dose 650 MG; Start 08/03/16 at 00:00 Calcium Acetate (Phoslo) 667 mg Q6 NGT Last administered on 09/04/16 11:57; Admin Dose 667 MG; Start 08/05/16 at 08:30 Hydralazine HCl (Apresoline) 10 mg Q4H PRN IV ELEVATED SYSTOLIC BP Last administered on 09/02/16 00:58; Admin Dose 10 MG; Start 08/06/16 at 01:30 Eye Lubricant (Artificial Tears Oph) 2 drop TID BOTH EYES Last administered on 09/04/16 13:52; Admin Dose 2 DROP; Start 08/13/16 at 09:00 Metoprolol Tartrate (Lopressor) 50 mg BID NGT Last administered on 09/03/16 21: 36; Admin Dose 50 MG; Start 08/15/16 at 21:00 Amiodarone HCl (Cordarone) 200 mg DAILY NGT Last administered on 09/04/16 09:25 ; Admin Dose 200 MG; Start 08/18/16 at 09:00 Lansoprazole (Prevacid) 30 mg DAILY@06 NGT Last administered on 09/04/16 07:02 ; Admin Dose 30 MG; Start 08/18/16 at 06:00 Insulin Aspart (Novolog Insulin Pen) NOVOLOG *MODERATE* ALGORI... Q6 SC Last administered on 09/04/16 12:06; Admin Dose 4 UNIT; Start 08/19/16 at 00:00 Zinc Oxide (Desitin) 1 applic PRN PRN TOP RASH Last administered on 08/28/16 06:26; Admin Dose 1 APPLIC; Start 08/21/16 at 17:30 Sodium Bicarbonate (Sodium Bicarbonate Tab) 650 mg Q8 NGT Last administered on 09/04/16 13:52; Admin Dose 650 MG; Start 08/22/16 at 22:00 Insulin Human NPH (Humulin N) 44 unit SC Last administered on 09:37; Admin Dose 44 UNIT; Start 08/23/16 at 17:00 Warfarin Sodium (Coumadin) 5 mg DAILY@17 GTB Last administered on 09/03/16 17: 16; Admin Dose 5 MG; Start 08/27/16 at 17:00 Epoetin Eloy (Epogen (Esrd)) 10,000 units MoWeFr@17 SC Last administered on 09/02 17:43; Admin Dose 10,000 UNITS; Start 08/29/16 at 17:00 Levetiracetam 1000 mg 1,000 mg BID GTB Last administered on 09/04/16 09:23; Admin Dose 1,000 MG; Start 08/29/16 at 21:00 Cefepime HCl 50 ml @ 100 mls/hr Q24H IVPB Last administered on 09/04/16 12:08 ; Admin Dose 100 MLS/HR; Start 09/03/16 at 12:00 Vancomycin HCl (Vancocin) 250 ml @ 125 mls/hr Q96H IVPB ; Start 09/05/16 at 16: 00 Assessment/Plan Additional Assessment/Plan IMPRESSION: 1. s/p Cardiopulmonary arrest. 2. Anoxic brain injury with anoxic seizures. 3. End-stage renal failure. Hyperkalemia with metabolic acidosis 4. No evidence of occlusive lesions on cardiac catheterization. 5. HTN heart Disease 6. Asthma RECS 1. Vent support 2. Stable for LTAC 3. Goals of care should be clarified in view of the grim prognosis for neurological recovery KAYLI ROBLES MD Sep 04, 2016 15:44
[2016-09-04] MEDS: WARFARIN 5 MG TAB GTB SCH (18:03)
--- NOTE | 2016-09-04 23:54 | CONS ---
DATE OF ADMISSION: 07/27/2016 DATE OF CONSULTATION: 09/04/2016 HISTORY OF PRESENT ILLNESS: The patient is a 52-grqyr-cyv male who suffered a cardiopulmonary arres t with anoxic brain injury, complicated by some seizure activity, end-stage renal disease, hyperkale ronald, metabolic acidosis, hypertensive heart disease, asthma. The patient unresponsive, intubated. I counseled his through his daughter over the form because his does not speak [place]. Th e daughter over the phone. We counseled her for 1 hour about his status the results of the testing which was done for him, including the MRI of his brain, which was done in 08/27/2016. CURRENT MEDICATIONS: Which includes: 1. Vancomycin 1 gram every 96 hours. 2. ____. 3. Cefepime, every 24 hours. 4. Keppra 1000 mg twice a day. 5. Epogen 10,000 units once a day. 6. Coumadin 5 mg once a day. 7. Insulin Lantus 44 units Humulin once a day as needed with sliding scale insulin. 8. Zinc oxide. 9. Cordarone 200 mg daily. 10. Prevacid 30 mg once a day. 11. Lopressor 50 mg once a day. 12. Ativan 1 mg at night as needed. 13. Morphine 2 mg every 4 hours as needed. 14. Albuterol inhaler as needed. 15. Atrovent inhaler as needed. 16. Labetalol 10 mg every 6 hours as needed. PHYSICAL EXAMINATION: GENERAL: Today, the patient does not follow any verbal commands, opens his eyes spontaneously. CRANIAL NERVES: Cranial nerve II: Pupils equal on both sides, reactive to light. Cranial nerves I II, IV, and : Extraocular muscles intact. No nystagmus. Cranial nerve V: Equal sensation to fa ce. Cranial nerve VII: Symmetrical face. Cranial nerve VIII: Decreased hearing bilaterally. [employer] T[employer] Restoration Labor nial nerves IX and X: Elevates palate. Cranial nerve XI: Elevates shoulder 5/5. Cranial nerve XI I: With straight tongue. MOTOR: Slight movement for painful stimuli with grimaces. HEART: Regular rate and rhythm. LUNGS: Equal breath sounds. ABDOMEN: Soft, relaxed, nondistended. No tenderness. ASSESSMENT AND PLAN The patient is 56 years old. 1. Status post cardiopulmonary arrest. 2. Anoxic encephalopathy, probably secondary to status post cardiopulmonary arrest. 3. Respiratory failure. 4. Possibility of underlying transient ischemic attack versus stroke in which the patient already o n Coumadin for that, which the patient had MRI in August, last month, in which I explained the res ults to the family. 5. History of hypertension. Keep the blood pressure at the level of 140/90 or less to avoid any ex tension of his stroke. 6. History of diabetes in which the patient is on sliding scale insulin. Follow up the patient wit h hemoglobin A1c. 7. Keep the patient under deep venous thrombosis prophylaxis as well as decubitus ulcer prophylaxis . Again, thank you for asking me to see the patient with you. Dictated By: KAYLI ROCK/BATSHEVA Conf#: [id number] DID#: [id number]
[2016-09-05] VITALS (30 sets, daily range): BP systolic 84–192; BP diastolic 50–86; PULSE 92–119; RESP 16–20; Ht 170.2 cm; Wt 103.6 kg
[2016-09-05] MEDS: ALBUTEROL HFA 8 GM INHALER INH SCH ×5 (01:05→21:31)
[2016-09-05] MEDS: IPRATROPIUM (HFA) 12.9 GM INHALER INH SCH ×5 (01:06→21:31)
[2016-09-05] MEDS: NPH, HUMAN INSULIN ISOPHANE 3ML VIAL SC SCH ×3 (01:17→17:05)
--- NOTE | 2016-09-05 01:41 | SP ---
DATE OF PROCEDURE: REFERRING PHYSICIAN: Dr. Weir. TECHNIQUE: This is a EEG done using 10-20 International electrode system with photic stimulat ion. FINDINGS: Bilateral occipital hemisphere view shows delta wave 2-3 Hz, low amplitude, symmetric kendal ateral. Photic stimulation done did not elicit drive. No epileptiform discharge or seizure activit y is recorded. IMPRESSION: This is a normal electroencephalogram, shows slowing, consistent with a history o f underlying encephalopathy. No epileptiform discharge or seizure activity is recorded. Again, thank you for asking me to see the patient with you. Dictated By: KAYLI ROCK/BATSHEVA Conf#: [id number] DID#: [id number]
[2016-09-05 06:41] LABS: ADD SCAN DIFF NO
[2016-09-05] MEDS: LANSOPRAZOLE 30 MG CAP NGT SCH (06:44)
[2016-09-05] MEDS: CALCIUM ACETATE 667 MG CAP NGT SCH ×3 (06:44→16:26)
[2016-09-05] MEDS: NA BICARBONATE 650 MG TAB NGT SCH ×3 (06:44→21:02)
[2016-09-05 06:47] LABS: BASOPHIL # 0.1 10^3/ul (0.0-0.1); BASOPHILS % 0.6 % (0.0-2.0); EOSINOPHILS # 0.8 10^3/ul (0.0-0.5); EOSINOPHILS % 4.7 % (0.0-7.0); HEMATOCRIT 27.4 % (42.0-52.0); HEMOGLOBIN 8.6 g/dl (14.0-18.0); LYMPHOCYTES # 2.5 10^3/ul (0.8-2.9); LYMPHOCYTES % 15.8 % (15.0-51.0); MEAN CORPUSCULAR HEMOGLOBIN 31.2 pg (29.0-33.0); MEAN CORPUSCULAR HGB CONC 31.4 g/dl (32.0-37.0); MEAN CORPUSCULAR VOLUME 99.3 fl (82.0-101.0); MEAN PLATELET VOLUME 10.1 fl (7.4-10.4); MONOCYTE # 1.2 10^3/ul (0.3-0.9); MONOCYTES % 7.5 % (0.0-11.0); NEUTROPHILS % 68.3 % (39.0-77.0); NUCLEATED RED BLOOD CELLS% 0.2 /100WBC (0.0-0.0); PLATELET COUNT 242 10^3/UL (140-415); RED BLOOD COUNT 2.76 10^6/ul (4.70-6.10); RED CELL DISTRIBUTION WIDTH 17.2 % (11.5-14.5)
[2016-09-05] MEDS: INSULIN ASPART [NOVOLOG] 3 ML PEN SC SCH ×3 (06:51→17:04)
[2016-09-05 06:56] LABS: ALBUMIN 3.3 g/dl (3.3-4.9)
[2016-09-05 06:57] LABS: POTASSIUM 4.4 mmol/L (3.5-5.1)
[2016-09-05 06:59] LABS: ALBUMIN/GLOBULIN RATIO 0.94; INR 1.89; PROTIME 21.9 Sec (12.2-14.2); PT RATIO 1.7; TOTAL PROTEIN 6.8 g/dl (6.1-8.1)
[2016-09-05] MEDS: ARFORMOTEROL TARTRATE 15MCG/2 ML AMP NEB SCH ×2 (07:14→21:30)
[2016-09-05] MEDS: BUDESONIDE (NEB) 0.5MG/2ML AMP HHN SCH ×2 (07:14→20:00)
--- NOTE | 2016-09-05 07:15 | CONS ---
DATE OF ADMISSION: 07/27/2016 DATE OF CONSULTATION: HISTORY OF PRESENT ILLNESS: The patient is a 56-year-old with a past medical history of cardiopulmo nary arrest, status post anoxic brain injury, end-stage renal disease with hyperkalemia, metabolic a cidosis, hypertensive heart disease, and asthma. CURRENT MEDICATIONS: Which include 1. Keppra 1000 mg twice a day. 2. Coumadin 5 mg at 5 o'clock. 3. Amiodarone 200 mg once a day. 4. Metoprolol 50 mg once a day. 5. Lorazepam 1 mg as needed. 6. Morphine sulfate as needed. 7. Labetalol 10 mg once a day as needed. PHYSICAL EXAMINATION: GENERAL: On exam today, the patient does not follow any verbal commands, opens his eyes continuousl y with no movement to painful stimuli. CRANIAL NERVES: Cranial nerve II: Pupils equal on both sides, reactive to light. Cranial nerves I II, IV, and : Extraocular muscles intact. Cranial nerves V and VII: Intact corneal reflex. Varnish Supervisor nial nerve VIII through XII: Could not assess. MOTOR: The patient had slight movement for painful stimuli. Sensation, coordination, and gait coul d not assess. HEART: Regular rate and rhythm. LUNGS: Equal breath sounds. ABDOMEN: Soft, relaxed, nondistended. No tenderness. ASSESSMENT AND PLAN 1. This patient is a 56-year-old with decreased mini mental status. 2. Status post chronic encephalopathy. 3. Status post cardiopulmonary arrest with the possibility of underlying hypoxic encephalopathy. 4. Seizure activity for which the patient is on Keppra 1000 twice a day. 5. Keep the patient under deep venous thrombosis prophylaxis as well as decubitus ulcer prophylaxis . 6. History of coronary artery disease with cardiopulmonary arrest for which the patient is on Couma din which is a strong medication for stroke prophylaxis. 7. I counseled his and his daughter over the phone for half an hour. Again, thank you for asking me to see the patient with you. Dictated By: KAYLI ROCK/BATSHEVA Conf#: [id number] DID#: [id number]
[2016-09-05 07:18] LABS: CREATININE 6.02 mg/dl (0.61-1.24)
--- NOTE | 2016-09-05 07:19 | CONS ---
DATE OF ADMISSION: 07/27/2016 DATE OF CONSULTATION: REFERRING PHYSICIAN: Thank you for asking me to see the patient with you. HISTORY OF PRESENT ILLNESS: The patient is 56 years old male who has had multiple medical problems which include acute cardiopulmonary arrest, followed by severe encephalopathy, insulin-dependent elizabeth betes, seizure disorder, ventilation dependent, atrial fibrillation. The patient on anticoagulation in the form of Coumadin. End-stage renal disease and hemodialysis. I got a call about him today fo r more evaluation and treatment for neurological standpoint, which I counseled his as well as h is doctor over the phone. His current medications which include Keppra 1000 twice a day, Epogen 10,0 00 units once a day, Warfarin 5 mg once a day, insulin once a day, zinc oxide as needed, Cordarone 2 00 mg once a day, Prevacid 30 mg once a day, Lopressor 50 mg once a day, hydralazine as needed, Phos Lo once a day, lorazepam 1 mg at bedtime as needed, Morphine 2 mg as needed, IV fluids as needed, gl ucose as needed, Tylenol 650 mg every 6 hours as needed, Atrovent inhaler twice a day as needed, Masoud tolin inhaler as needed, labetalol 10 mg once a day as needed. PAST MEDICAL HISTORY: As above. Includes diabetes, hypertension, atrial fibrillation, cardiopulmon ahsan arrest, anoxic encephalopathy, end-stage renal disease on hemodialysis. The patient is accompanied by his in the room and his daughter which we called her over the alec ne. On exam today, the patient does not follow any verbal commands. His eyes open spontaneously. M otor exam shows a slight movement for painful stimuli. Sensation, coordination and gait could not a ssess. Heart was with regular irregularity. Lungs have equal breath sounds. Abdomen is soft, relaxe d, nondistended. No tenderness. ASSESSMENT AND PLAN 1. This patient is 56 years old lady status post cardiopulmonary arrest. 2. Complicated by hypoxic encephalopathy in which the patient is unresponsive. 3. Peripheral neuropathy, probably secondary to diabetes. We will follow up the patient with hemog lobin A1c and adjust his medication. 4. End-stage renal disease for which the patient is on dialysis. 5. Gait difficulty secondary to anoxic brain injury. 6. I counseled the patient and the patient's family about his status. Again, thank you for asking me to see the patient with you. Dictated By: KAYLI BERTRAND MD NA/NTS Conf#: [id number] DID#: [id number] CC: KAYLI BERTRAND MD;*EndCC*
[2016-09-05] MEDS: LEVETIRACETAM (100 MG/ML) 5ML CUP GTB SCH ×2 (09:51→20:59)
[2016-09-05] MEDS: ARTIFICIAL TEARS 15 ML OPH BOTH EYES SCH ×3 (09:51→20:58)
[2016-09-05] MEDS: METOPROLOL 50 MG TAB NGT SCH ×2 (09:52→21:07)
[2016-09-05] MEDS: AMIODARONE 200 MG TAB NGT SCH (09:52)
--- NOTE | 2016-09-05 09:57 | CONS ---
Date/Time of Note Date/Time of Note DATE: 09/05/16 TIME: 09:53 Assessment/Plan Assessment/Plan Chief Complaint/Hosp Course #1 end-stage renal disease . He has hemodialysis ordered for today. His BUN is high and I will order hemodialysis for tomorrow. #2 the patient is status post a cardiac arrest at home #3 altered level of consciousness, probable anoxic encephalopathy. His prognosis for recovery seems poor. #4 insulin-dependent diabetes mellitus #5 seizures #6 ventilator dependent respiratory failure , h/o COPD. #7 hyperphosphatemia , calcium acetate is being given . #8 new onset A fib , he was cardioverted and now is on warfarin . #9 dietary consult ordered , will continue tube feeding rate at 30 cc/hr . #10 anemia , on Epogen Problems: Consultation Date/Type/Reason Admit Date/Time Jul 27, 2016 at 23:29 Initial Consult Date 07/28/16 Type of Consultation: renal Referring Provider: BARNEY MCKEE 24 HR Interval Summary Free Text/Dictation He is unresponsive on a ventilator. Subjective hx not possible: pt non-verbal Exam/Review of Systems Vital Signs Vitals Vital Signs Date Time Temp Pulse Resp B/P Pulse Ox O2 Delivery O2 Flow Rate FiO2 09/05/16 08:58 99 09/05/16 08:57 16 96 30 09/05/16 07:21 101.0 151/77 09/03/16 03:31 Mechanical Ventilator Intake and Output 09/04/16 09/04/16 09/05/16 15:00 23:00 07:00 Intake Total 50 ml 750 ml 800 ml Balance 50 ml 750 ml 800 ml Exam Constitutional: non-verbal Respiratory: clear to auscultation, diminished breath sounds Cardiovascular: regular rate and rhythm Gastrointestinal: soft Musculoskeletal: nl extremities to inspection Results Result Diagram: 09/05/16 0550 09/05/16 0550 Results 24 hrs Laboratory Tests Test 09/04/16 12:00 09/04/16 14:00 09/04/16 18:06 09/04/16 23:30 Bedside Glucose 205 182 184 Stool Occult Blood NEGATIVE Test 09/05/16 01:10 09/05/16 05:50 09/05/16 06:42 Bedside Glucose 178 203 Alanine Aminotransferase (ALT/SGPT) 50 Albumin 3.3 Albumin/Globulin Ratio 0.94 Alkaline Phosphatase 140 H Anion Gap 23 H Aspartate Amino Transf (AST/SGOT) 50 H Basophils # 0.1 Basophils % 0.6 Blood Urea Nitrogen 109 H Calcium Level 9.0 Carbon Dioxide Level 26 Chloride Level 97 Creatinine 6.02 H Direct Bilirubin 0.00 Eosinophils # 0.8 H Eosinophils % 4.7 Globulin 3.50 H Glucose Level 163 Hematocrit 27.4 L Hemoglobin 8.6 L INR International Normalized Ratio 1.89 Indirect Bilirubin 0.0 Lymphocytes # 2.5 Lymphocytes % 15.8 Mean Corpuscular Hemoglobin 31.2 Mean Corpuscular Hemoglobin Concent 31.4 L Mean Corpuscular Volume 99.3 Mean Platelet Volume 10.1 Monocytes # 1.2 H Monocytes % 7.5 Neutrophils # 11.0 H Neutrophils % 68.3 Nucleated Red Blood Cells # 0.0 Nucleated Red Blood Cells % 0.2 H Platelet Count 242 Potassium Level 4.4 Prothrombin Time 21.9 H Prothrombin Time Ratio 1.7 Red Blood Count 2.76 L Red Cell Distribution Width 17.2 H Sodium Level 142 Total Bilirubin 0.0 L Total Protein 6.8 White Blood Count 16.0 H Medications Medications Current Medications Labetalol HCl (Labetalol) 10 mg Q6H PRN IV sbp > 160 Last administered on 18:33; Admin Dose 10 MG; Start 07/28/16 at 00:30 Acetaminophen (Tylenol Supp) 650 mg Q6H PRN [place] PAIN AND OR ELEVATED TEMP Last administered on 07/31/16 17:30; Admin Dose 650 MG; Start 07/28/16 at 08:30 Miscellaneous Information 1 ea NOTE XX ; Start 07/28/16 at 09:00 Glucose (Glutose) 15 gm Q15M PRN PO DECREASED GLUCOSE; Start 07/28/16 at 09:00 Glucose (Glutose) 22.5 gm Q15M PRN PO DECREASED GLUCOSE; Start 07/28/16 at 09: 00 Dextrose (D50w Syringe) 25 ml Q15M PRN IV DECREASED GLUCOSE; Start 07/28/16 at 09:00 Dextrose (D50w Syringe) 50 ml Q15M PRN IV DECREASED GLUCOSE; Start 07/28/16 at 09:00 Glucagon (Glucagen) 1 mg Q15M PRN IM DECREASED GLUCOSE; Start 07/28/16 at 09:00 Glucose (Glutose) 15 gm Q15M PRN BUCCAL DECREASED GLUCOSE; Start 07/28/16 at 09 :00 IV Flush (NS 10 ml) 10 ml PRN PRN IV IV PROTOCOL; Start 07/29/16 at 17:00 Morphine Sulfate (morphine) 2 mg Q4 PRN IV PAIN Last administered on 08/12/16 23:38; Admin Dose 2 MG; Start 07/31/16 at 12:00 Lorazepam (Ativan) 1 mg Q1H PRN IV SEIZURES Last administered on 08/11/16 12:25 ; Admin Dose 1 MG; Start 08/02/16 at 02:00 Acetaminophen (Tylenol Liquid) 650 mg Q4H PRN NGT PAIN AND OR ELEVATED TEMP Last administered on 09/04/16 13:52; Admin Dose 650 MG; Start 08/03/16 at 00:00 Calcium Acetate (Phoslo) 667 mg Q6 NGT Last administered on 09/05/16 06:44; Admin Dose 667 MG; Start 08/05/16 at 08:30 Hydralazine HCl (Apresoline) 10 mg Q4H PRN IV ELEVATED SYSTOLIC BP Last administered on 09/02/16 00:58; Admin Dose 10 MG; Start 08/06/16 at 01:30 Eye Lubricant (Artificial Tears Oph) 2 drop TID BOTH EYES Last administered on 09/04/16 21:38; Admin Dose 2 DROP; Start 08/13/16 at 09:00 Metoprolol Tartrate (Lopressor) 50 mg BID NGT Last administered on 09/04/16 21: 40; Admin Dose 50 MG; Start 08/15/16 at 21:00 Amiodarone HCl (Cordarone) 200 mg DAILY NGT Last administered on 09/04/16 09:25 ; Admin Dose 200 MG; Start 08/18/16 at 09:00 Lansoprazole (Prevacid) 30 mg DAILY@06 NGT Last administered on 09/05/16 06:44 ; Admin Dose 30 MG; Start 08/18/16 at 06:00 Insulin Aspart (Novolog Insulin Pen) NOVOLOG *MODERATE* ALGORI... Q6 SC Last administered on 09/05/16 06:51; Admin Dose 4 UNIT; Start 08/19/16 at 00:00 Zinc Oxide (Desitin) 1 applic PRN PRN TOP RASH Last administered on 08/28/16 06:26; Admin Dose 1 APPLIC; Start 08/21/16 at 17:30 Sodium Bicarbonate (Sodium Bicarbonate Tab) 650 mg Q8 NGT Last administered on 09/05/16 06:44; Admin Dose 650 MG; Start 08/22/16 at 22:00 Insulin Human NPH (Humulin N) 44 unit 01,09,17 SC Last administered on 01:17; Admin Dose 44 UNIT; Start 08/23/16 at 17:00 Warfarin Sodium (Coumadin) 5 mg DAILY@17 GTB Last administered on 09/04/16 18: 03; Admin Dose 5 MG; Start 08/27/16 at 17:00 Epoetin Eloy (Epogen (Esrd)) 10,000 units MoWeFr@17 SC Last administered on 09/02 17:43; Admin Dose 10,000 UNITS; Start 08/29/16 at 17:00 Levetiracetam 1000 mg 1,000 mg BID GTB Last administered on 09/04/16 21:38; Admin Dose 1,000 MG; Start 08/29/16 at 21:00 Cefepime HCl 50 ml @ 100 mls/hr Q24H IVPB Last administered on 09/04/16 12:08 ; Admin Dose 100 MLS/HR; Start 09/03/16 at 12:00 Vancomycin HCl (Vancocin) 250 ml @ 125 mls/hr Q96H IVPB ; Start 09/05/16 at 16: 00 ROSCOE LANGE MD Sep 05, 2016 09:57
[2016-09-05] MEDS: ACETAMINOPHEN 650MG/20.3ML CUP NGT PRN (09:59)
--- NOTE | 2016-09-05 10:48 | CONS ---
Date/Time of Note Date/Time of Note DATE: 09/05/16 TIME: 10:45 Assessment/Plan Assessment/Plan Additional Assessment/Plan Ventilator settings; AC of 16, tidal volume 650, PEEP of 5, 30% FiO2. Next Assessment recommendations; next 1. Patient admitted for pneumonia and sepsis with interval improvement. Off antibiotics now. 2. Chronic respiratory failure, ventilator dependent due to anoxic brain injury. 3. Stable seizure disorder. 4. Paroxysmal A. fib, patient currently in sinus rhythm. 5. Stable hypertension or diabetes. 6. End-stage renal disease, on hemodialysis. Continue current treatment. Patient can be discharged back to longterm/ LTAC. Consultation Date/Type/Reason Admit Date/Time Jul 27, 2016 at 23:29 Initial Consult Date 07/28/16 Type of Consultation: Pulmonary Referring Provider: BARNEY MCKEE 24 HR Interval Summary Free Text/Dictation Patient condition is stable. Remains unresponsive on account of anoxic encephalopathy. Has remained hemodynamically stable. General examination; middle-aged man, on ventilator via tracheostomy unresponsive. Currently in no distress. Exam/Review of Systems Vital Signs Vitals Vital Signs Date Time Temp Pulse Resp B/P Pulse Ox O2 Delivery O2 Flow Rate FiO2 09/05/16 08:58 99 09/05/16 08:57 16 96 30 09/05/16 07:21 101.0 151/77 09/03/16 03:31 Mechanical Ventilator Intake and Output 09/04/16 09/04/16 09/05/16 15:00 23:00 07:00 Intake Total 50 ml 750 ml 800 ml Balance 50 ml 750 ml 800 ml Exam H EENT examination; supple neck, no JVD. No lymphadenopathy. Midline trachea. Tracheostomy in place. Incision site is clean. Patient is edentulous. Pupils are small bilaterally. Next Chest examination; clear to auscultation bilaterally. S1-S2 audible, no murmurs. Regular rhythm. Abdomen examination; soft, nondistended. No organomegaly. G-tube in place. Bowel sounds audible. Extremity examination; no peripheral edema. PET TRAINING INSTRUCTOR examination; patient remains unresponsive. Results Result Diagram: 09/05/16 0550 09/05/16 0550 Results 24 hrs Laboratory Tests Test 09/04/16 12:00 09/04/16 14:00 09/04/16 18:06 09/04/16 23:30 Bedside Glucose 205 182 184 Stool Occult Blood NEGATIVE Test 09/05/16 01:10 09/05/16 05:50 09/05/16 06:42 Bedside Glucose 178 203 Alanine Aminotransferase (ALT/SGPT) 50 Albumin 3.3 Albumin/Globulin Ratio 0.94 Alkaline Phosphatase 140 H Anion Gap 23 H Aspartate Amino Transf (AST/SGOT) 50 H Basophils # 0.1 Basophils % 0.6 Blood Urea Nitrogen 109 H Calcium Level 9.0 Carbon Dioxide Level 26 Chloride Level 97 Creatinine 6.02 H Direct Bilirubin 0.00 Eosinophils # 0.8 H Eosinophils % 4.7 Globulin 3.50 H Glucose Level 163 Hematocrit 27.4 L Hemoglobin 8.6 L INR International Normalized Ratio 1.89 Indirect Bilirubin 0.0 Lymphocytes # 2.5 Lymphocytes % 15.8 Mean Corpuscular Hemoglobin 31.2 Mean Corpuscular Hemoglobin Concent 31.4 L Mean Corpuscular Volume 99.3 Mean Platelet Volume 10.1 Monocytes # 1.2 H Monocytes % 7.5 Neutrophils # 11.0 H Neutrophils % 68.3 Nucleated Red Blood Cells # 0.0 Nucleated Red Blood Cells % 0.2 H Platelet Count 242 Potassium Level 4.4 Prothrombin Time 21.9 H Prothrombin Time Ratio 1.7 Red Blood Count 2.76 L Red Cell Distribution Width 17.2 H Sodium Level 142 Total Bilirubin 0.0 L Total Protein 6.8 White Blood Count 16.0 H Medications Medications Current Medications Labetalol HCl (Labetalol) 10 mg Q6H PRN IV sbp > 160 Last administered on 18:33; Admin Dose 10 MG; Start 07/28/16 at 00:30 Acetaminophen (Tylenol Supp) 650 mg Q6H PRN [place] PAIN AND OR ELEVATED TEMP Last administered on 07/31/16 17:30; Admin Dose 650 MG; Start 07/28/16 at 08:30 Miscellaneous Information 1 ea NOTE XX ; Start 07/28/16 at 09:00 Glucose (Glutose) 15 gm Q15M PRN PO DECREASED GLUCOSE; Start 07/28/16 at 09:00 Glucose (Glutose) 22.5 gm Q15M PRN PO DECREASED GLUCOSE; Start 07/28/16 at 09: 00 Dextrose (D50w Syringe) 25 ml Q15M PRN IV DECREASED GLUCOSE; Start 07/28/16 at 09:00 Dextrose (D50w Syringe) 50 ml Q15M PRN IV DECREASED GLUCOSE; Start 07/28/16 at 09:00 Glucagon (Glucagen) 1 mg Q15M PRN IM DECREASED GLUCOSE; Start 07/28/16 at 09:00 Glucose (Glutose) 15 gm Q15M PRN BUCCAL DECREASED GLUCOSE; Start 07/28/16 at 09 :00 IV Flush (NS 10 ml) 10 ml PRN PRN IV IV PROTOCOL; Start 07/29/16 at 17:00 Morphine Sulfate (morphine) 2 mg Q4 PRN IV PAIN Last administered on 08/12/16 23:38; Admin Dose 2 MG; Start 07/31/16 at 12:00 Lorazepam (Ativan) 1 mg Q1H PRN IV SEIZURES Last administered on 08/11/16 12:25 ; Admin Dose 1 MG; Start 08/02/16 at 02:00 Acetaminophen (Tylenol Liquid) 650 mg Q4H PRN NGT PAIN AND OR ELEVATED TEMP Last administered on 09/05/16 09:59; Admin Dose 650 MG; Start 08/03/16 at 00:00 Calcium Acetate (Phoslo) 667 mg Q6 NGT Last administered on 09/05/16 06:44; Admin Dose 667 MG; Start 08/05/16 at 08:30 Hydralazine HCl (Apresoline) 10 mg Q4H PRN IV ELEVATED SYSTOLIC BP Last administered on 09/02/16 00:58; Admin Dose 10 MG; Start 08/06/16 at 01:30 Eye Lubricant (Artificial Tears Oph) 2 drop TID BOTH EYES Last administered on 09/05/16 09:51; Admin Dose 2 DROP; Start 08/13/16 at 09:00 Metoprolol Tartrate (Lopressor) 50 mg BID NGT Last administered on 09/05/16 09: 52; Admin Dose 50 MG; Start 08/15/16 at 21:00 Amiodarone HCl (Cordarone) 200 mg DAILY NGT Last administered on 09/05/16 09:52 ; Admin Dose 200 MG; Start 08/18/16 at 09:00 Lansoprazole (Prevacid) 30 mg DAILY@06 NGT Last administered on 09/05/16 06:44 ; Admin Dose 30 MG; Start 08/18/16 at 06:00 Insulin Aspart (Novolog Insulin Pen) NOVOLOG *MODERATE* ALGORI... Q6 SC Last administered on 09/05/16 06:51; Admin Dose 4 UNIT; Start 08/19/16 at 00:00 Zinc Oxide (Desitin) 1 applic PRN PRN TOP RASH Last administered on 08/28/16 06:26; Admin Dose 1 APPLIC; Start 08/21/16 at 17:30 Sodium Bicarbonate (Sodium Bicarbonate Tab) 650 mg Q8 NGT Last administered on 09/05/16 06:44; Admin Dose 650 MG; Start 08/22/16 at 22:00 Insulin Human NPH (Humulin N) 44 unit , SC Last administered on 09:57; Admin Dose 44 UNIT; Start 08/23/16 at 17:00 Warfarin Sodium (Coumadin) 5 mg DAILY@17 GTB Last administered on 09/04/16 18: 03; Admin Dose 5 MG; Start 08/27/16 at 17:00 Epoetin Eloy (Epogen (Esrd)) 10,000 units MoWeFr@17 SC Last administered on 09/02 17:43; Admin Dose 10,000 UNITS; Start 08/29/16 at 17:00 Levetiracetam 1000 mg 1,000 mg BID GTB Last administered on 09/05/16 09:51; Admin Dose 1,000 MG; Start 08/29/16 at 21:00 Cefepime HCl 50 ml @ 100 mls/hr Q24H IVPB Last administered on 09/04/16 12:08 ; Admin Dose 100 MLS/HR; Start 09/03/16 at 12:00 Vancomycin HCl (Vancocin) 250 ml @ 125 mls/hr Q96H IVPB ; Start 09/05/16 at 16: 00 AMOR RODRIGUES Sep 05, 2016 10:48
--- NOTE | 2016-09-05 11:12 | PN ---
Date/Time of Note Date/Time of Note DATE: 09/05/16 TIME: 11:08 Assessment/Plan VTE Prophylaxis VTE Prophylaxis Intervention: other (on coumadin) Lines/Catheters IV Catheter Type (from Nrs): PICC Line Central line still needed: Yes (IV access for abx ) Assessment/Plan Assessment/Plan 1. Status post cardiac arrest secondary to PEA. Status post trach and PEG. Family hesitant on changing the code status. EEG performed 08/24 with findings of: Abnormal study secondary to background slowing which could reflect encephalopathy. Could be anoxic or toxic metabolic in etiology. MRI brain on 08/26: Single focus of restricted diffusion in the left superior frontal lobe at the level of the precentral gyrus compatible with acute / subacute ischemic infarct. No edema, mass effect hemorrhage. - monitor, family explained in detail today at bedside yesterday about prognosis, including most likely poor outcome given encephalopathy - likely sec to anoxic brain injury from arrest on admission. Pt's son still wants full Neuro eval and repeat EEG. - f/u Neuro consult rec's, possible repeat EEG 2. Acute respiratory failure, hypoxic. - Continue ventilator management as per pulmonary. - Continue inhaled bronchodilators. 3. End-stage renal disease on hemodialysis. - Continue hemodialysis as per nephrology. - epogen 4. Status post systemic inflammatory response syndrome. Status post antibiotics - but still + fever and now + UA. - monitor, fevers likely central in origin 5. Paroxysmal atrial fibrillation with rapid ventricular response. Currently in sinus rhythm. - continue amiodarone and metoprolol. - continue warfarin for stroke prophylaxis. 6. Type 2 diabetes mellitus. Hemoglobin A1c 7.3. - Continue insulin sliding scale along with Lantus insulin. 7. Essential hypertension. - Continue antihypertensives. 8. Seizure disorder. Most probably secondary to anoxia. - Continue anticonvulsants. 9. Possible underlying anoxic encephalopathy. Again, brain MRI showing a single focus of restricted diffusion in the left superior frontal lobe at the level of the precentral gyrus compatible with acute/subacute ischemic infarct. - monitor for now -Neuro consult (see # 1) 10. Normocytic normochromic anemia, most probably anemia of chronic kidney disease. - Will monitor H and H closely, on epogen as well 11. Fluid, electrolytes and nutrition. - Continue G-tube feedings. 12. Deep venous thrombosis prophylaxis. On warfarin. 13. Gastrointestinal prophylaxis. Proton pump inhibitors. 14. fevers- UA + now. fever sec to neurogenic (central) in origin given likely anoxic brain injury vs sepsis from +UTI. Hx of Hep B+C positive as well. - continue abx, sputumg cx grew heavy growth of gram negative rods PLAN: Continue inpatient care. Still holding valproic acid because of high serum levels on 08/27/16. Awaiting possible [facility] to a [facility]it[facility]iary facility. I spoke with [facility] medical collections representative 3 days ago to discuss pt's difficulty in placement due to ESRD on HD, + Hep B, PEA/anoxic brain injury, and trach dependent res failure - they will assist in possible placement of pt to appropriate healthcare facility. Subjective 24 Hr Interval Summary Free Text/Dictation pt has been spiking fever upto 101.5 Exam/Review of Systems Vital Signs Vitals Vital Signs Date Time Temp Pulse Resp B/P Pulse Ox O2 Delivery O2 Flow Rate FiO2 09/05/16 08:58 99 09/05/16 08:57 16 96 30 09/05/16 07:21 101.0 151/77 09/03/16 03:31 Mechanical Ventilator Intake and Output 09/04/16 09/04/16 09/05/16 15:00 23:00 07:00 Intake Total 50 ml 750 ml 800 ml Balance 50 ml 750 ml 800 ml Exam GENERAL: lying in bed with tracheostomy to vent, in no apparent distress, nonresponsive HEENT: Head normocephalic and atraumatic. Eyes: Anicteric sclerae. Conjunctivae clear. ENT: Nasal septum Oral mucosa is dry. NECK: Supple. Tracheostomy midline. RESPIRATORY: less bilateral diminished breath sounds. Tracheostomy connected to mechanical ventilator. CARDIAC: Regular rate and rhythm. No obvious murmurs heard. ABDOMEN: Soft, nontender and nondistended. Left upper quadrant G-tube in place. EXTREMITIES: No cyanosis, no clubbing, no edema. Peripheral pulses are palpable. NEUROLOGIC: The patient is obtunded. Opens eyes. Does not follow any commands. Results Result Diagram: 09/05/16 0550 09/05/16 0550 Results 24 hrs Laboratory Tests Test 09/04/16 12:00 09/04/16 14:00 09/04/16 18:06 09/04/16 23:30 Bedside Glucose 205 182 184 Stool Occult Blood NEGATIVE Test 09/05/16 01:10 09/05/16 05:50 09/05/16 06:42 Bedside Glucose 178 203 Alanine Aminotransferase (ALT/SGPT) 50 Albumin 3.3 Albumin/Globulin Ratio 0.94 Alkaline Phosphatase 140 H Anion Gap 23 H Aspartate Amino Transf (AST/SGOT) 50 H Basophils # 0.1 Basophils % 0.6 Blood Urea Nitrogen 109 H Calcium Level 9.0 Carbon Dioxide Level 26 Chloride Level 97 Creatinine 6.02 H Direct Bilirubin 0.00 Eosinophils # 0.8 H Eosinophils % 4.7 Globulin 3.50 H Glucose Level 163 Hematocrit 27.4 L Hemoglobin 8.6 L INR International Normalized Ratio 1.89 Indirect Bilirubin 0.0 Lymphocytes # 2.5 Lymphocytes % 15.8 Mean Corpuscular Hemoglobin 31.2 Mean Corpuscular Hemoglobin Concent 31.4 L Mean Corpuscular Volume 99.3 Mean Platelet Volume 10.1 Monocytes # 1.2 H Monocytes % 7.5 Neutrophils # 11.0 H Neutrophils % 68.3 Nucleated Red Blood Cells # 0.0 Nucleated Red Blood Cells % 0.2 H Platelet Count 242 Potassium Level 4.4 Prothrombin Time 21.9 H Prothrombin Time Ratio 1.7 Red Blood Count 2.76 L Red Cell Distribution Width 17.2 H Sodium Level 142 Total Bilirubin 0.0 L Total Protein 6.8 White Blood Count 16.0 H Medications Medications Current Medications Labetalol HCl (Labetalol) 10 mg Q6H PRN IV sbp > 160 Last administered on 18:33; Admin Dose 10 MG; Start 07/28/16 at 00:30 Acetaminophen (Tylenol Supp) 650 mg Q6H PRN IN PAIN AND OR ELEVATED TEMP Last administered on 07/31/16 17:30; Admin Dose 650 MG; Start 07/28/16 at 08:30 Miscellaneous Information 1 ea NOTE XX ; Start 07/28/16 at 09:00 Glucose (Glutose) 15 gm Q15M PRN PO DECREASED GLUCOSE; Start 07/28/16 at 09:00 Glucose (Glutose) 22.5 gm Q15M PRN PO DECREASED GLUCOSE; Start 07/28/16 at 09: 00 Dextrose (D50w Syringe) 25 ml Q15M PRN IV DECREASED GLUCOSE; Start 07/28/16 at 09:00 Dextrose (D50w Syringe) 50 ml Q15M PRN IV DECREASED GLUCOSE; Start 07/28/16 at 09:00 Glucagon (Glucagen) 1 mg Q15M PRN IM DECREASED GLUCOSE; Start 07/28/16 at 09:00 Glucose (Glutose) 15 gm Q15M PRN BUCCAL DECREASED GLUCOSE; Start 07/28/16 at 09 :00 IV Flush (NS 10 ml) 10 ml PRN PRN IV IV PROTOCOL; Start 07/29/16 at 17:00 Morphine Sulfate (morphine) 2 mg Q4 PRN IV PAIN Last administered on 08/12/16 23:38; Admin Dose 2 MG; Start 07/31/16 at 12:00 Lorazepam (Ativan) 1 mg Q1H PRN IV SEIZURES Last administered on 08/11/16 12:25 ; Admin Dose 1 MG; Start 08/02/16 at 02:00 Acetaminophen (Tylenol Liquid) 650 mg Q4H PRN NGT PAIN AND OR ELEVATED TEMP Last administered on 09/05/16 09:59; Admin Dose 650 MG; Start 08/03/16 at 00:00 Calcium Acetate (Phoslo) 667 mg Q6 NGT Last administered on 09/05/16 06:44; Admin Dose 667 MG; Start 08/05/16 at 08:30 Hydralazine HCl (Apresoline) 10 mg Q4H PRN IV ELEVATED SYSTOLIC BP Last administered on 09/02/16 00:58; Admin Dose 10 MG; Start 08/06/16 at 01:30 Eye Lubricant (Artificial Tears Oph) 2 drop TID BOTH EYES Last administered on 09/05/16 09:51; Admin Dose 2 DROP; Start 08/13/16 at 09:00 Metoprolol Tartrate (Lopressor) 50 mg BID NGT Last administered on 09/05/16 09: 52; Admin Dose 50 MG; Start 08/15/16 at 21:00 Amiodarone HCl (Cordarone) 200 mg DAILY NGT Last administered on 09/05/16 09:52 ; Admin Dose 200 MG; Start 08/18/16 at 09:00 Lansoprazole (Prevacid) 30 mg DAILY@06 NGT Last administered on 09/05/16 06:44 ; Admin Dose 30 MG; Start 08/18/16 at 06:00 Insulin Aspart (Novolog Insulin Pen) NOVOLOG *MODERATE* ALGORI... Q6 SC Last administered on 09/05/16 06:51; Admin Dose 4 UNIT; Start 08/19/16 at 00:00 Zinc Oxide (Desitin) 1 applic PRN PRN TOP RASH Last administered on 08/28/16 06:26; Admin Dose 1 APPLIC; Start 08/21/16 at 17:30 Sodium Bicarbonate (Sodium Bicarbonate Tab) 650 mg Q8 NGT Last administered on 09/05/16 06:44; Admin Dose 650 MG; Start 08/22/16 at 22:00 Insulin Human NPH (Humulin N) 44 unit , SC Last administered on 09:57; Admin Dose 44 UNIT; Start 08/23/16 at 17:00 Warfarin Sodium (Coumadin) 5 mg DAILY@17 GTB Last administered on 09/04/16 18: 03; Admin Dose 5 MG; Start 08/27/16 at 17:00 Epoetin Eloy (Epogen (Esrd)) 10,000 units MoWeFr@17 SC Last administered on 09/02 17:43; Admin Dose 10,000 UNITS; Start 08/29/16 at 17:00 Levetiracetam 1000 mg 1,000 mg BID GTB Last administered on 09/05/16 09:51; Admin Dose 1,000 MG; Start 08/29/16 at 21:00 Cefepime HCl 50 ml @ 100 mls/hr Q24H IVPB Last administered on 09/04/16 12:08 ; Admin Dose 100 MLS/HR; Start 09/03/16 at 12:00 Vancomycin HCl (Vancocin) 250 ml @ 125 mls/hr Q96H IVPB ; Start 09/05/16 at 16: 00 NINFA PACK MD Sep 05, 2016 11:11
--- NOTE | 2016-09-05 12:08 | CONS ---
Date/Time of Note Date/Time of Note DATE: 09/05/16 TIME: 12:07 Assessment/Plan Assessment/Plan Chief Complaint/Hosp Course SUBJECTIVE: No acute events overnight. Lying comfortably in bed. + fevers INDWELLINGS: Trach, PEG, left upper extremity AV fistula. ANTIMICROBIALS: Vanco, Cefepime. MICROBIOLOGY: Cultures had been negative since admission. Sputum cx + GNR PHYSICAL EXAMINATION: GENERAL: This is a well-developed, middle-aged man who is lying comfortably in bed. HEENT: Head atraumatic, normocephalic. Sclerae anicteric. Buccal mucosa dry. NECK: Supple. Tracheostomy present. CHEST: Rise symmetrical. Breath sounds diminished to bases. HEART: S1, S2. ABDOMEN: Soft, bowel tones present. EXTREMITIES: Without cyanosis. ASSESSMENT: 1. Sepsis with persistent fevers and leukocytosis. 2. Healthcare-associated pneumonia. 3. End-stage renal disease, hemodialysis dependent. 4. Cerebrovascular accident. 5. Anoxic encephalopathy status post cardiopulmonary arrest. 6. Diabetes. PLAN: Clinically unchanged, spiking fevers, will add Amikacin, continue present care, abx, follow sputum cultures. DW staff Problems: Consultation Date/Type/Reason Admit Date/Time Jul 27, 2016 at 23:29 Initial Consult Date 08/17/16 Type of Consultation: ID Referring Provider: BARNEY MCKEE Exam/Review of Systems Vital Signs Vitals Vital Signs Date Time Temp Pulse Resp B/P Pulse Ox O2 Delivery O2 Flow Rate FiO2 09/05/16 12:03 94 09/05/16 11:45 100.6 20 192/76 97 166/76 09/05/16 08:57 30 09/03/16 03:31 Mechanical Ventilator Intake and Output 09/04/16 09/04/16 09/05/16 15:00 23:00 07:00 Intake Total 50 ml 750 ml 800 ml Balance 50 ml 750 ml 800 ml Results Result Diagram: 09/05/16 0550 09/05/16 0550 Results 24 hrs Laboratory Tests Test 09/04/16 14:00 09/04/16 18:06 09/04/16 23:30 09/05/16 01:10 Stool Occult Blood NEGATIVE Bedside Glucose 182 184 178 Test 09/05/16 05:50 09/05/16 06:42 Alanine Aminotransferase (ALT/SGPT) 50 Albumin 3.3 Albumin/Globulin Ratio 0.94 Alkaline Phosphatase 140 H Anion Gap 23 H Aspartate Amino Transf (AST/SGOT) 50 H Basophils # 0.1 Basophils % 0.6 Blood Urea Nitrogen 109 H Calcium Level 9.0 Carbon Dioxide Level 26 Chloride Level 97 Creatinine 6.02 H Direct Bilirubin 0.00 Eosinophils # 0.8 H Eosinophils % 4.7 Globulin 3.50 H Glucose Level 163 Hematocrit 27.4 L Hemoglobin 8.6 L INR International Normalized Ratio 1.89 Indirect Bilirubin 0.0 Lymphocytes # 2.5 Lymphocytes % 15.8 Mean Corpuscular Hemoglobin 31.2 Mean Corpuscular Hemoglobin Concent 31.4 L Mean Corpuscular Volume 99.3 Mean Platelet Volume 10.1 Monocytes # 1.2 H Monocytes % 7.5 Neutrophils # 11.0 H Neutrophils % 68.3 Nucleated Red Blood Cells # 0.0 Nucleated Red Blood Cells % 0.2 H Platelet Count 242 Potassium Level 4.4 Prothrombin Time 21.9 H Prothrombin Time Ratio 1.7 Red Blood Count 2.76 L Red Cell Distribution Width 17.2 H Sodium Level 142 Total Bilirubin 0.0 L Total Protein 6.8 White Blood Count 16.0 H Bedside Glucose 203 Medications Medications Current Medications Labetalol HCl (Labetalol) 10 mg Q6H PRN IV sbp > 160 Last administered on 18:33; Admin Dose 10 MG; Start 07/28/16 at 00:30 Acetaminophen (Tylenol Supp) 650 mg Q6H PRN [place] PAIN AND OR ELEVATED TEMP Last administered on 07/31/16 17:30; Admin Dose 650 MG; Start 07/28/16 at 08:30 Miscellaneous Information 1 ea NOTE XX ; Start 07/28/16 at 09:00 Glucose (Glutose) 15 gm Q15M PRN PO DECREASED GLUCOSE; Start 07/28/16 at 09:00 Glucose (Glutose) 22.5 gm Q15M PRN PO DECREASED GLUCOSE; Start 07/28/16 at 09: 00 Dextrose (D50w Syringe) 25 ml Q15M PRN IV DECREASED GLUCOSE; Start 07/28/16 at 09:00 Dextrose (D50w Syringe) 50 ml Q15M PRN IV DECREASED GLUCOSE; Start 07/28/16 at 09:00 Glucagon (Glucagen) 1 mg Q15M PRN IM DECREASED GLUCOSE; Start 07/28/16 at 09:00 Glucose (Glutose) 15 gm Q15M PRN BUCCAL DECREASED GLUCOSE; Start 07/28/16 at 09 :00 IV Flush (NS 10 ml) 10 ml PRN PRN IV IV PROTOCOL; Start 07/29/16 at 17:00 Morphine Sulfate (morphine) 2 mg Q4 PRN IV PAIN Last administered on 08/12/16 23:38; Admin Dose 2 MG; Start 07/31/16 at 12:00 Lorazepam (Ativan) 1 mg Q1H PRN IV SEIZURES Last administered on 08/11/16 12:25 ; Admin Dose 1 MG; Start 08/02/16 at 02:00 Acetaminophen (Tylenol Liquid) 650 mg Q4H PRN NGT PAIN AND OR ELEVATED TEMP Last administered on 09/05/16 09:59; Admin Dose 650 MG; Start 08/03/16 at 00:00 Calcium Acetate (Phoslo) 667 mg Q6 NGT Last administered on 09/05/16 06:44; Admin Dose 667 MG; Start 08/05/16 at 08:30 Hydralazine HCl (Apresoline) 10 mg Q4H PRN IV ELEVATED SYSTOLIC BP Last administered on 09/02/16 00:58; Admin Dose 10 MG; Start 08/06/16 at 01:30 Eye Lubricant (Artificial Tears Oph) 2 drop TID BOTH EYES Last administered on 09/05/16 09:51; Admin Dose 2 DROP; Start 08/13/16 at 09:00 Metoprolol Tartrate (Lopressor) 50 mg BID NGT Last administered on 09/05/16 09: 52; Admin Dose 50 MG; Start 08/15/16 at 21:00 Amiodarone HCl (Cordarone) 200 mg DAILY NGT Last administered on 09/05/16 09:52 ; Admin Dose 200 MG; Start 08/18/16 at 09:00 Lansoprazole (Prevacid) 30 mg DAILY@06 NGT Last administered on 09/05/16 06:44 ; Admin Dose 30 MG; Start 08/18/16 at 06:00 Insulin Aspart (Novolog Insulin Pen) NOVOLOG *MODERATE* ALGORI... Q6 SC Last administered on 09/05/16 06:51; Admin Dose 4 UNIT; Start 08/19/16 at 00:00 Zinc Oxide (Desitin) 1 applic PRN PRN TOP RASH Last administered on 08/28/16 06:26; Admin Dose 1 APPLIC; Start 08/21/16 at 17:30 Sodium Bicarbonate (Sodium Bicarbonate Tab) 650 mg Q8 NGT Last administered on 09/05/16 06:44; Admin Dose 650 MG; Start 08/22/16 at 22:00 Insulin Human NPH (Humulin N) 44 unit , SC Last administered on 09:57; Admin Dose 44 UNIT; Start 08/23/16 at 17:00 Warfarin Sodium (Coumadin) 5 mg DAILY@17 GTB Last administered on 09/04/16 18: 03; Admin Dose 5 MG; Start 08/27/16 at 17:00 Epoetin Eloy (Epogen (Esrd)) 10,000 units MoWeFr@17 SC Last administered on 09/02 17:43; Admin Dose 10,000 UNITS; Start 08/29/16 at 17:00 Levetiracetam 1000 mg 1,000 mg BID GTB Last administered on 09/05/16 09:51; Admin Dose 1,000 MG; Start 08/29/16 at 21:00 Cefepime HCl 50 ml @ 100 mls/hr Q24H IVPB Last administered on 09/04/16 12:08 ; Admin Dose 100 MLS/HR; Start 09/03/16 at 12:00 Vancomycin HCl (Vancocin) 250 ml @ 125 mls/hr Q96H IVPB ; Start 09/05/16 at 16: 00 AGUS CHEN NP Sep 05, 2016 12:08
[2016-09-05] MEDS ORDERED: AMIKACIN IV PER PHARMACY XX SCH (12:30)
[2016-09-05] MEDS ORDERED: AMIKACIN 600 MG in SOD CHLORIDE 0.9% 100 ML IVPB SCH (14:00)
[2016-09-05] MEDS ORDERED: VANCOMYCIN 1 GM in NS 250 ML IVPB SCH (16:00)
[2016-09-05] MEDS: CEFEPIME 1GM/50 ML IVPB SCH (16:25)
[2016-09-05] MEDS: WARFARIN 5 MG TAB GTB SCH (16:26)
[2016-09-05] MEDS: EPOETIN 10000 UNITS/1 ML INJ (ESRD) SC SCH (16:27)
--- NOTE | 2016-09-05 23:01 | PN ---
DATE: REFERRING PHYSICIAN: Dr. Weir HISTORY OF PRESENT ILLNESS: The patient is a 56-year-old male who suffered from cardiopulmonary arrest, anoxic brain injury, seizure activity, end-stage renal disease, hyperkalemia, metabolic acidosis, hypertensive heart disease, asthma in which the patient is unresponsive. CURRENT MEDICATIONS: Include: 1. Keppra 1000 twice a day. 2. Vancomycin 1 g every 96 hours. 3. Cefepime every 24 hours. 4. Epogen 10,000 units once a day. 5. Coumadin 5 mg once a day. 6. Insulin Lantus 45 units every day. 7. Cordarone 200 mg once a day. 8. Prevacid 30 mg once a day. 9. Lopressor 50 mg once a day. 10. Ativan 1 mg once a day. 11. Morphine sulfate 2 mg every 4 hours as needed. 12. Albuterol inhaler as needed. 13. Atrovent as needed. 14. Labetalol 10 mg every 6 hours as needed. PHYSICAL EXAMINATION: GENERAL: Today, the patient is not alert, confused Abnormal speech and normal language. CRANIAL NERVES: Cranial nerve II: Pupils equal on both sides, reactive to light. Cranial nerves III, IV, and : Extraocular muscles intact. No nystagmus. Cranial nerve V: Equal sensation to face. Cranial nerve VII: Symmetrical face. Cranial nerves VIII through XII: Could not assess. MOTOR: Slight movement for painful stimuli. SENSATION, COORDINATION, AND GAIT: Could not assess. HEART: Regular rate and rhythm. LUNGS: Equal breath sounds. ABDOMEN: Soft, relaxed, nondistended. No tenderness. ASSESSMENT AND PLAN 1. The patient is 56 years old status post cardiopulmonary arrest complicated by anoxic encephalopathy probably secondary to post cardiopulmonary arrest. 2. Underlying transient ischemic attack in which the patient already on Coumadin which is good prophylaxis for stroke. 3. History of hypertension. Keep the blood pressure at the level of 140/90 to avoid extension of stroke. 4. History of diabetes. Follow up the patient with sliding scale insulin. Hemoglobin A1c. 5. Keep the patient under deep venous thrombosis prophylaxis as well as decubitus ulcer prophylaxis. Again, thank you for asking me to see the patient with you. Dictated By: KAYLI ROCK/BATSHEVA Conf#: [id number] DID#: [id number] CC: FARHANA WEIR MD;*EndCC* MTDD
[2016-09-06] VITALS (31 sets, daily range): BP systolic 113–153; BP diastolic 59–82; PULSE 94–119; RESP 16–20
[2016-09-06] MEDS: CALCIUM ACETATE 667 MG CAP NGT SCH ×2 (00:37→05:06)
[2016-09-06] MEDS: NPH, HUMAN INSULIN ISOPHANE 3ML VIAL SC SCH ×3 (00:43→17:51)
[2016-09-06] MEDS: INSULIN ASPART [NOVOLOG] 3 ML PEN SC SCH ×4 (00:43→17:27)
[2016-09-06] MEDS: IPRATROPIUM (HFA) 12.9 GM INHALER INH SCH ×6 (01:00→20:04)
[2016-09-06] MEDS: ALBUTEROL HFA 8 GM INHALER INH SCH ×6 (01:35→20:03)
[2016-09-06] MEDS: NA BICARBONATE 650 MG TAB NGT SCH ×3 (05:06→22:23)
[2016-09-06] MEDS: LANSOPRAZOLE 30 MG CAP NGT SCH (05:06)
[2016-09-06 06:51] LABS: ADD SCAN DIFF NO
[2016-09-06 07:08] LABS: BASOPHIL # 0.1 10^3/ul (0.0-0.1); BASOPHILS % 0.5 % (0.0-2.0); EOSINOPHILS # 0.5 10^3/ul (0.0-0.5); EOSINOPHILS % 3.2 % (0.0-7.0); HEMATOCRIT 27.9 % (42.0-52.0); HEMOGLOBIN 8.7 g/dl (14.0-18.0); INR 1.73; LYMPHOCYTES # 2.8 10^3/ul (0.8-2.9); LYMPHOCYTES % 16.7 % (15.0-51.0); MEAN CORPUSCULAR HEMOGLOBIN 31.3 pg (29.0-33.0); MEAN CORPUSCULAR HGB CONC 31.2 g/dl (32.0-37.0); MEAN CORPUSCULAR VOLUME 100.4 fl (82.0-101.0); MEAN PLATELET VOLUME 10.3 fl (7.4-10.4); MONOCYTE # 1.2 10^3/ul (0.3-0.9); MONOCYTES % 7.1 % (0.0-11.0); NEUTROPHIL # 11.8 10^3/ul (1.6-7.5); NEUTROPHILS % 70.2 % (39.0-77.0); NUCLEATED RED BLOOD CELLS% 0.2 /100WBC (0.0-0.0); PLATELET COUNT 242 10^3/UL (140-415); PROTIME 20.4 Sec (12.2-14.2); PT RATIO 1.6; RED BLOOD COUNT 2.78 10^6/ul (4.70-6.10); RED CELL DISTRIBUTION WIDTH 17.5 % (11.5-14.5); WHITE BLOOD COUNT 16.7 10^3/ul (4.8-10.8)
[2016-09-06 07:11] LABS: POTASSIUM 3.9 mmol/L (3.5-5.1)
[2016-09-06 07:13] LABS: CREATININE 5.26 mg/dl (0.61-1.24)
[2016-09-06 07:14] LABS: CALCIUM 9.3 mg/dl (8.4-10.2)
--- NOTE | 2016-09-06 07:53 | CONS ---
Date/Time of Note Date/Time of Note DATE: 09/06/16 TIME: 07:51 Assessment/Plan Assessment/Plan Chief Complaint/Hosp Course #1 end-stage renal disease . He has hemodialysis ordered for today. His BUN is lower today after having hemodialysis yesterday. #2 the patient is status post a cardiac arrest at home #3 altered level of consciousness, probable anoxic encephalopathy. His prognosis for recovery seems poor. #4 insulin-dependent diabetes mellitus #5 seizures #6 ventilator dependent respiratory failure , h/o COPD. #7 hyperphosphatemia , calcium acetate is being given . #8 h/o A fib , he was cardioverted and now is on warfarin . #9 dietary consult ordered , will continue tube feeding rate at 30 cc/hr . #10 anemia , on Epogen Problems: Consultation Date/Type/Reason Admit Date/Time Jul 27, 2016 at 23:29 Initial Consult Date 07/28/16 Type of Consultation: ID Referring Provider: BARNEY MCKEE 24 HR Interval Summary Free Text/Dictation He is unresponsive on a ventilator. Subjective hx not possible: pt non-verbal Exam/Review of Systems Vital Signs Vitals Vital Signs Date Time Temp Pulse Resp B/P Pulse Ox O2 Delivery O2 Flow Rate FiO2 09/06/16 05:38 107 16 100 30 09/06/16 04:47 98.4 139/79 09/03/16 03:31 Mechanical Ventilator Intake and Output 09/05/16 09/05/16 09/06/16 15:00 23:00 07:00 Intake Total 300 ml 1200 ml Output Total 3300 ml Balance -3000 ml 1200 ml Exam Constitutional: non-verbal Respiratory: clear to auscultation, diminished breath sounds Cardiovascular: regular rate and rhythm Gastrointestinal: soft Musculoskeletal: nl extremities to inspection Results Result Diagram: 09/06/1631 09/06/16 0631 Results 24 hrs Laboratory Tests Test 09/05/16 12:12 09/05/16 17:01 09/06/16 00:39 09/06/16 05:06 Bedside Glucose 208 151 184 144 Test 09/06/16 06:31 Anion Gap 23 H Basophils # 0.1 Basophils % 0.5 Blood Urea Nitrogen 77 #H Calcium Level 9.3 Carbon Dioxide Level 28 Chloride Level 102 Creatinine 5.26 H Eosinophils # 0.5 Eosinophils % 3.2 Glucose Level 138 Hematocrit 27.9 L Hemoglobin 8.7 L INR International Normalized Ratio 1.73 Lymphocytes # 2.8 Lymphocytes % 16.7 Mean Corpuscular Hemoglobin 31.3 Mean Corpuscular Hemoglobin Concent 31.2 L Mean Corpuscular Volume 100.4 Mean Platelet Volume 10.3 Monocytes # 1.2 H Monocytes % 7.1 Neutrophils # 11.8 H Neutrophils % 70.2 Nucleated Red Blood Cells # 0.0 Nucleated Red Blood Cells % 0.2 H Platelet Count 242 Potassium Level 3.9 Prothrombin Time 20.4 H Prothrombin Time Ratio 1.6 Red Blood Count 2.78 L Red Cell Distribution Width 17.5 H Sodium Level 149 H White Blood Count 16.7 H Medications Medications Current Medications Labetalol HCl (Labetalol) 10 mg Q6H PRN IV sbp > 160 Last administered on 18:33; Admin Dose 10 MG; Start 07/28/16 at 00:30 Acetaminophen (Tylenol Supp) 650 mg Q6H PRN [place] PAIN AND OR ELEVATED TEMP Last administered on 07/31/16 17:30; Admin Dose 650 MG; Start 07/28/16 at 08:30 Miscellaneous Information 1 ea NOTE XX ; Start 07/28/16 at 09:00 Glucose (Glutose) 15 gm Q15M PRN PO DECREASED GLUCOSE; Start 07/28/16 at 09:00 Glucose (Glutose) 22.5 gm Q15M PRN PO DECREASED GLUCOSE; Start 07/28/16 at 09: 00 Dextrose (D50w Syringe) 25 ml Q15M PRN IV DECREASED GLUCOSE; Start 07/28/16 at 09:00 Dextrose (D50w Syringe) 50 ml Q15M PRN IV DECREASED GLUCOSE; Start 07/28/16 at 09:00 Glucagon (Glucagen) 1 mg Q15M PRN IM DECREASED GLUCOSE; Start 07/28/16 at 09:00 Glucose (Glutose) 15 gm Q15M PRN BUCCAL DECREASED GLUCOSE; Start 07/28/16 at 09 :00 IV Flush (NS 10 ml) 10 ml PRN PRN IV IV PROTOCOL; Start 07/29/16 at 17:00 Morphine Sulfate (morphine) 2 mg Q4 PRN IV PAIN Last administered on 08/12/16 23:38; Admin Dose 2 MG; Start 07/31/16 at 12:00 Lorazepam (Ativan) 1 mg Q1H PRN IV SEIZURES Last administered on 08/11/16 12:25 ; Admin Dose 1 MG; Start 08/02/16 at 02:00 Acetaminophen (Tylenol Liquid) 650 mg Q4H PRN NGT PAIN AND OR ELEVATED TEMP Last administered on 09/05/16 09:59; Admin Dose 650 MG; Start 08/03/16 at 00:00 Calcium Acetate (Phoslo) 667 mg Q6 NGT Last administered on 09/06/16 05:06; Admin Dose 667 MG; Start 08/05/16 at 08:30 Hydralazine HCl (Apresoline) 10 mg Q4H PRN IV ELEVATED SYSTOLIC BP Last administered on 09/02/16 00:58; Admin Dose 10 MG; Start 08/06/16 at 01:30 Eye Lubricant (Artificial Tears Oph) 2 drop TID BOTH EYES Last administered on 09/05/16 20:58; Admin Dose 2 DROP; Start 08/13/16 at 09:00 Metoprolol Tartrate (Lopressor) 50 mg BID NGT Last administered on 09/05/16 21: 07; Admin Dose 50 MG; Start 08/15/16 at 21:00 Amiodarone HCl (Cordarone) 200 mg DAILY NGT Last administered on 09/05/16 09:52 ; Admin Dose 200 MG; Start 08/18/16 at 09:00 Lansoprazole (Prevacid) 30 mg DAILY@06 NGT Last administered on 09/06/16 05:06 ; Admin Dose 30 MG; Start 08/18/16 at 06:00 Insulin Aspart (Novolog Insulin Pen) NOVOLOG *MODERATE* ALGORI... Q6 SC Last administered on 09/06/16 06:20; Admin Dose 2 UNIT; Start 08/19/16 at 00:00 Zinc Oxide (Desitin) 1 applic PRN PRN TOP RASH Last administered on 08/28/16 06:26; Admin Dose 1 APPLIC; Start 08/21/16 at 17:30 Sodium Bicarbonate (Sodium Bicarbonate Tab) 650 mg Q8 NGT Last administered on 09/06/16 05:06; Admin Dose 650 MG; Start 08/22/16 at 22:00 Insulin Human NPH (Humulin N) 44 unit ,, SC Last administered on 00:43; Admin Dose 44 UNIT; Start 08/23/16 at 17:00 Warfarin Sodium (Coumadin) 5 mg DAILY@17 GTB Last administered on 09/05/16 16: 26; Admin Dose 5 MG; Start 08/27/16 at 17:00 Epoetin Eloy (Epogen (Esrd)) 10,000 units MoWeFr@17 SC Last administered on 09/05 16:27; Admin Dose 10,000 UNITS; Start 08/29/16 at 17:00 Levetiracetam 1000 mg 1,000 mg BID GTB Last administered on 09/05/16 20:59; Admin Dose 1,000 MG; Start 08/29/16 at 21:00 Cefepime HCl 50 ml @ 100 mls/hr Q24H IVPB Last administered on 09/05/16 16:25 ; Admin Dose 100 MLS/HR; Start 09/03/16 at 12:00 Vancomycin HCl (Vancocin) 250 ml @ 125 mls/hr Q96H IVPB Last administered on 16:25; Admin Dose 125 MLS/HR; Start 09/05/16 at 16:00 Amikacin Sulfate (Amikacin Iv Per Pharmacy) AMIKACIN PER PHARMACY NOTE XX ; Start 09/05/16 at 12:30 ROSCOE LANGE MD Sep 06, 2016 07:53
[2016-09-06] MEDS: ARTIFICIAL TEARS 15 ML OPH BOTH EYES SCH ×3 (08:35→22:23)
[2016-09-06] MEDS: LEVETIRACETAM (100 MG/ML) 5ML CUP GTB SCH ×2 (08:41→23:34)
[2016-09-06] MEDS: ACETAMINOPHEN 650MG/20.3ML CUP GTB PRN (08:46)
[2016-09-06] MEDS: AMIODARONE 200 MG TAB GTB SCH (08:47)
[2016-09-06] MEDS: METOPROLOL 50 MG TAB GTB SCH ×2 (08:48→22:25)
--- NOTE | 2016-09-06 10:29 | CONS ---
Date/Time of Note Date/Time of Note DATE: 09/06/16 TIME: 10:26 Assessment/Plan Assessment/Plan Additional Assessment/Plan Assessment recommendations; 1. Patient with chronic respiratory failure admitted for pneumonia and sepsis with recurrent leukocytosis currently resumed back on broad-spectrum antibiotic coverage. 2. History of respiratory failure due to anoxic brain injury. Remains ventilator dependent. 3. Stable seizure disorder. 4. Stable hypertension and diabetes 5. End-stage renal disease on hemodialysis. Continue current supportive care. Prognosis is poor. Consultation Date/Type/Reason Admit Date/Time Jul 27, 2016 at 23:29 Initial Consult Date 07/28/16 Type of Consultation: Pulmonary Referring Provider: BARNEY MCKEE 24 HR Interval Summary Free Text/Dictation Patient's condition remains stable. Remains ventilator dependent. Also remains unresponsive due to anoxic brain injury. Has remained hemodynamically stable. General examination; elderly male, on ventilator via tracheostomy currently in no distress. Unresponsive. Exam/Review of Systems Vital Signs Vitals Vital Signs Date Time Temp Pulse Resp B/P Pulse Ox O2 Delivery O2 Flow Rate FiO2 09/06/16 08:49 30 09/06/16 08:46 119 09/06/16 08:06 102.7 20 131/71 97 09/03/16 03:31 Mechanical Ventilator Intake and Output 09/05/16 09/05/16 09/06/16 15:00 23:00 07:00 Intake Total 300 ml 1200 ml 560 ml Output Total 3300 ml Balance -3000 ml 1200 ml 560 ml Exam HEENT examination; supple neck, no JVD. No lymphadenopathy. Midline trachea. No thyromegaly. Tracheostomy in place with clean insertion site. Patient is edentulous. Chest examination; clear to auscultation bilaterally. S1-S2 audible, no murmurs. Regular rhythm. Abdomen examination; soft, G-tube in place. Nondistended. No organomegaly. Bowel sounds audible. Extremity examination; no peripheral edema. Pulses 2+ bilaterally. SPIKE DRIVER examination; patient remains unresponsive. Results Result Diagram: 09/06/1631 09/06/1631 Results 24 hrs Laboratory Tests Test 09/05/16 12:12 09/05/16 17:01 09/06/16 00:39 09/06/16 05:06 Bedside Glucose 208 151 184 144 Test 09/06/16 06:31 09/06/16 07:45 Anion Gap 23 H Basophils # 0.1 Basophils % 0.5 Blood Urea Nitrogen 77 #H Calcium Level 9.3 Carbon Dioxide Level 28 Chloride Level 102 Creatinine 5.26 H Eosinophils # 0.5 Eosinophils % 3.2 Glucose Level 138 Hematocrit 27.9 L Hemoglobin 8.7 L INR International Normalized Ratio 1.73 Lymphocytes # 2.8 Lymphocytes % 16.7 Mean Corpuscular Hemoglobin 31.3 Mean Corpuscular Hemoglobin Concent 31.2 L Mean Corpuscular Volume 100.4 Mean Platelet Volume 10.3 Monocytes # 1.2 H Monocytes % 7.1 Neutrophils # 11.8 H Neutrophils % 70.2 Nucleated Red Blood Cells # 0.0 Nucleated Red Blood Cells % 0.2 H Platelet Count 242 Potassium Level 3.9 Prothrombin Time 20.4 H Prothrombin Time Ratio 1.6 Red Blood Count 2.78 L Red Cell Distribution Width 17.5 H Sodium Level 149 H White Blood Count 16.7 H Bedside Glucose 135 Medications Medications Current Medications Labetalol HCl (Labetalol) 10 mg Q6H PRN IV sbp > 160 Last administered on 18:33; Admin Dose 10 MG; Start 07/28/16 at 00:30 Acetaminophen (Tylenol Supp) 650 mg Q6H PRN IN PAIN AND OR ELEVATED TEMP Last administered on 07/31/16 17:30; Admin Dose 650 MG; Start 07/28/16 at 08:30 Miscellaneous Information 1 ea NOTE XX ; Start 07/28/16 at 09:00 Glucose (Glutose) 15 gm Q15M PRN PO DECREASED GLUCOSE; Start 07/28/16 at 09:00 Glucose (Glutose) 22.5 gm Q15M PRN PO DECREASED GLUCOSE; Start 07/28/16 at 09: 00 Dextrose (D50w Syringe) 25 ml Q15M PRN IV DECREASED GLUCOSE; Start 07/28/16 at 09:00 Dextrose (D50w Syringe) 50 ml Q15M PRN IV DECREASED GLUCOSE; Start 07/28/16 at 09:00 Glucagon (Glucagen) 1 mg Q15M PRN IM DECREASED GLUCOSE; Start 07/28/16 at 09:00 Glucose (Glutose) 15 gm Q15M PRN BUCCAL DECREASED GLUCOSE; Start 07/28/16 at 09 :00 IV Flush (NS 10 ml) 10 ml PRN PRN IV IV PROTOCOL; Start 07/29/16 at 17:00 Morphine Sulfate (morphine) 2 mg Q4 PRN IV PAIN Last administered on 08/12/16 23:38; Admin Dose 2 MG; Start 07/31/16 at 12:00 Lorazepam (Ativan) 1 mg Q1H PRN IV SEIZURES Last administered on 08/11/16 12:25 ; Admin Dose 1 MG; Start 08/02/16 at 02:00 Hydralazine HCl (Apresoline) 10 mg Q4H PRN IV ELEVATED SYSTOLIC BP Last administered on 09/02/16 00:58; Admin Dose 10 MG; Start 08/06/16 at 01:30 Eye Lubricant (Artificial Tears Oph) 2 drop TID BOTH EYES Last administered on 09/06/16 08:35; Admin Dose 2 DROP; Start 08/13/16 at 09:00 Lansoprazole (Prevacid) 30 mg DAILY@06 NGT Last administered on 09/06/16 05:06 ; Admin Dose 30 MG; Start 08/18/16 at 06:00 Insulin Aspart (Novolog Insulin Pen) NOVOLOG *MODERATE* ALGORI... Q6 SC Last administered on 09/06/16 06:20; Admin Dose 2 UNIT; Start 08/19/16 at 00:00 Zinc Oxide (Desitin) 1 applic PRN PRN TOP RASH Last administered on 08/28/16 06:26; Admin Dose 1 APPLIC; Start 08/21/16 at 17:30 Sodium Bicarbonate (Sodium Bicarbonate Tab) 650 mg Q8 NGT Last administered on 09/06/16 05:06; Admin Dose 650 MG; Start 08/22/16 at 22:00 Insulin Human NPH (Humulin N) 44 unit ,, SC Last administered on 08:52; Admin Dose 44 UNIT; Start 08/23/16 at 17:00 Warfarin Sodium (Coumadin) 5 mg DAILY@17 GTB Last administered on 09/05/16 16: 26; Admin Dose 5 MG; Start 08/27/16 at 17:00 Epoetin Eloy (Epogen (Esrd)) 10,000 units MoWeFr@17 SC Last administered on 09/05 16:27; Admin Dose 10,000 UNITS; Start 08/29/16 at 17:00 Levetiracetam 1000 mg 1,000 mg BID GTB Last administered on 09/06/16 08:41; Admin Dose 1,000 MG; Start 08/29/16 at 21:00 Cefepime HCl 50 ml @ 100 mls/hr Q24H IVPB Last administered on 09/05/16 16:25 ; Admin Dose 100 MLS/HR; Start 09/03/16 at 12:00 Vancomycin HCl (Vancocin) 250 ml @ 125 mls/hr Q96H IVPB Last administered on 16:25; Admin Dose 125 MLS/HR; Start 09/05/16 at 16:00 Amikacin Sulfate (Amikacin Iv Per Pharmacy) AMIKACIN PER PHARMACY NOTE XX ; Start 09/05/16 at 12:30 Acetaminophen (Tylenol Liquid) 650 mg Q4H PRN GTB PAIN AND OR ELEVATED TEMP Last administered on 09/06/16 08:46; Admin Dose 650 MG; Start 09/06/16 at 12:00 Amiodarone HCl (Cordarone) 200 mg DAILY GTB Last administered on 09/06/16 08:47 ; Admin Dose 200 MG; Start 09/06/16 at 09:00 Calcium Acetate (Phoslo) 667 mg Q6 GTB ; Start 09/06/16 at 12:00 Metoprolol Tartrate (Lopressor) 50 mg BID GTB ; Start 09/06/16 at 09:00 Levofloxacin (Levaquin) 250 mg Q48H NGT ; Start 09/06/16 at 11:00 AMOR RODRIGUES Sep 06, 2016 10:28
[2016-09-06] MEDS: BUDESONIDE (NEB) 0.5MG/2ML AMP HHN SCH ×2 (10:48→19:59)
--- NOTE | 2016-09-06 10:51 | PN ---
Date/Time of Note Date/Time of Note DATE: 09/06/16 TIME: 10:48 Assessment/Plan VTE Prophylaxis VTE Prophylaxis Intervention: other (coumadin) Lines/Catheters IV Catheter Type (from Nrs): PICC Line Central line still needed: Yes (IV access ) Urinary Cath still in place: No Assessment/Plan Assessment/Plan 1. Status post cardiac arrest secondary to PEA. Status post trach and PEG. Family hesitant on changing the code status. EEG performed 08/24 with findings of: Abnormal study secondary to background slowing which could reflect encephalopathy. Could be anoxic or toxic metabolic in etiology. MRI brain on 08/26: Single focus of restricted diffusion in the left superior frontal lobe at the level of the precentral gyrus compatible with acute / subacute ischemic infarct. No edema, mass effect hemorrhage. - monitor, family explained in detail today at bedside yesterday about prognosis, including most likely poor outcome given encephalopathy - likely sec to anoxic brain injury from arrest on admission. Pt's son still wants full Neuro eval and repeat EEG. - f/u Neuro consult rec's, possible repeat EEG 2. Acute respiratory failure, hypoxic. - Continue ventilator management as per pulmonary. - Continue inhaled bronchodilators. 3. End-stage renal disease on hemodialysis. - Continue hemodialysis as per nephrology. - epogen 4. Status post systemic inflammatory response syndrome. Status post antibiotics - but still + fever and now + UA. - monitor, fevers likely central in origin 5. Paroxysmal atrial fibrillation with rapid ventricular response. Currently in sinus rhythm. - continue amiodarone and metoprolol. - continue warfarin for stroke prophylaxis. 6. Type 2 diabetes mellitus. Hemoglobin A1c 7.3. - Continue insulin sliding scale along with Lantus insulin. 7. Essential hypertension. - Continue antihypertensives. 8. Seizure disorder. Most probably secondary to anoxia. - Continue anticonvulsants. 9. Possible underlying anoxic encephalopathy. Again, brain MRI showing a single focus of restricted diffusion in the left superior frontal lobe at the level of the precentral gyrus compatible with acute/subacute ischemic infarct. - monitor for now -Neuro consult (see # 1) 10. Normocytic normochromic anemia, most probably anemia of chronic kidney disease. - Will monitor H and H closely, on epogen as well 11. Fluid, electrolytes and nutrition. - Continue G-tube feedings. 12. Deep venous thrombosis prophylaxis. On warfarin. 13. Gastrointestinal prophylaxis. Proton pump inhibitors. 14. fevers- UA + now. fever sec to neurogenic (central) in origin given likely anoxic brain injury vs sepsis from +UTI. Hx of Hep B+C positive as well. - continue abx, sputumg cx grew heavy growth of gram negative rods PLAN: Continue inpatient care. Still holding valproic acid because of high serum levels on 08/27/16. Awaiting possible placement to a snf facility. I spoke with [facility] medical coding instructor 3 days ago to discuss pt's difficulty in placement due to ESRD on HD, + Hep B, PEA/anoxic brain injury, and trach dependent res failure -possible plan for d/c to [facility] tomorrow Subjective 24 Hr Interval Summary Free Text/Dictation pt is still spiking fever to 102.7, HR stable, on HD by nephrology , s/p HD yesterday 3 L removed Exam/Review of Systems Vital Signs Vitals Vital Signs Date Time Temp Pulse Resp B/P Pulse Ox O2 Delivery O2 Flow Rate FiO2 09/06/16 09:30 109 16 95 30 09/06/16 08:06 102.7 131/71 09/03/16 03:31 Mechanical Ventilator Intake and Output 09/05/16 09/05/16 09/06/16 15:00 23:00 07:00 Intake Total 300 ml 1200 ml 560 ml Output Total 3300 ml Balance -3000 ml 1200 ml 560 ml Exam GENERAL: lying in bed with tracheostomy to vent, in no apparent distress, nonresponsive HEENT: Head normocephalic and atraumatic. Eyes: Anicteric sclerae. Conjunctivae clear. ENT: Nasal septum Oral mucosa is dry. NECK: Supple. Tracheostomy midline. RESPIRATORY: less bilateral diminished breath sounds. Tracheostomy connected to mechanical ventilator. CARDIAC: Regular rate and rhythm. No obvious murmurs heard. ABDOMEN: Soft, nontender and nondistended. Left upper quadrant G-tube in place. EXTREMITIES: No cyanosis, no clubbing, no edema. Peripheral pulses are palpable. NEUROLOGIC: The patient is obtunded. Opens eyes. Does not follow any commands. Results Result Diagram: 09/06/16 0631 09/06/16 0631 Results 24 hrs Laboratory Tests Test 09/05/16 12:12 09/05/16 17:01 09/06/16 00:39 09/06/16 05:06 Bedside Glucose 208 151 184 144 Test 09/06/16 06:31 09/06/16 07:45 Anion Gap 23 H Basophils # 0.1 Basophils % 0.5 Blood Urea Nitrogen 77 #H Calcium Level 9.3 Carbon Dioxide Level 28 Chloride Level 102 Creatinine 5.26 H Eosinophils # 0.5 Eosinophils % 3.2 Glucose Level 138 Hematocrit 27.9 L Hemoglobin 8.7 L INR International Normalized Ratio 1.73 Lymphocytes # 2.8 Lymphocytes % 16.7 Mean Corpuscular Hemoglobin 31.3 Mean Corpuscular Hemoglobin Concent 31.2 L Mean Corpuscular Volume 100.4 Mean Platelet Volume 10.3 Monocytes # 1.2 H Monocytes % 7.1 Neutrophils # 11.8 H Neutrophils % 70.2 Nucleated Red Blood Cells # 0.0 Nucleated Red Blood Cells % 0.2 H Platelet Count 242 Potassium Level 3.9 Prothrombin Time 20.4 H Prothrombin Time Ratio 1.6 Red Blood Count 2.78 L Red Cell Distribution Width 17.5 H Sodium Level 149 H White Blood Count 16.7 H Bedside Glucose 135 Medications Medications Current Medications Labetalol HCl (Labetalol) 10 mg Q6H PRN IV sbp > 160 Last administered on 18:33; Admin Dose 10 MG; Start 07/28/16 at 00:30 Acetaminophen (Tylenol Supp) 650 mg Q6H PRN [place] PAIN AND OR ELEVATED TEMP Last administered on 07/31/16 17:30; Admin Dose 650 MG; Start 07/28/16 at 08:30 Miscellaneous Information 1 ea NOTE XX ; Start 07/28/16 at 09:00 Glucose (Glutose) 15 gm Q15M PRN PO DECREASED GLUCOSE; Start 07/28/16 at 09:00 Glucose (Glutose) 22.5 gm Q15M PRN PO DECREASED GLUCOSE; Start 07/28/16 at 09: 00 Dextrose (D50w Syringe) 25 ml Q15M PRN IV DECREASED GLUCOSE; Start 07/28/16 at 09:00 Dextrose (D50w Syringe) 50 ml Q15M PRN IV DECREASED GLUCOSE; Start 07/28/16 at 09:00 Glucagon (Glucagen) 1 mg Q15M PRN IM DECREASED GLUCOSE; Start 07/28/16 at 09:00 Glucose (Glutose) 15 gm Q15M PRN BUCCAL DECREASED GLUCOSE; Start 07/28/16 at 09 :00 IV Flush (NS 10 ml) 10 ml PRN PRN IV IV PROTOCOL; Start 07/29/16 at 17:00 Morphine Sulfate (morphine) 2 mg Q4 PRN IV PAIN Last administered on 08/12/16 23:38; Admin Dose 2 MG; Start 07/31/16 at 12:00 Lorazepam (Ativan) 1 mg Q1H PRN IV SEIZURES Last administered on 08/11/16 12:25 ; Admin Dose 1 MG; Start 08/02/16 at 02:00 Hydralazine HCl (Apresoline) 10 mg Q4H PRN IV ELEVATED SYSTOLIC BP Last administered on 09/02/16 00:58; Admin Dose 10 MG; Start 08/06/16 at 01:30 Eye Lubricant (Artificial Tears Oph) 2 drop TID BOTH EYES Last administered on 09/06/16 08:35; Admin Dose 2 DROP; Start 08/13/16 at 09:00 Lansoprazole (Prevacid) 30 mg DAILY@06 NGT Last administered on 09/06/16 05:06 ; Admin Dose 30 MG; Start 08/18/16 at 06:00 Insulin Aspart (Novolog Insulin Pen) NOVOLOG *MODERATE* ALGORI... Q6 SC Last administered on 09/06/16 06:20; Admin Dose 2 UNIT; Start 08/19/16 at 00:00 Zinc Oxide (Desitin) 1 applic PRN PRN TOP RASH Last administered on 08/28/16 06:26; Admin Dose 1 APPLIC; Start 08/21/16 at 17:30 Sodium Bicarbonate (Sodium Bicarbonate Tab) 650 mg Q8 NGT Last administered on 09/06/16 05:06; Admin Dose 650 MG; Start 08/22/16 at 22:00 Insulin Human NPH (Humulin N) 44 unit ,, SC Last administered on 08:52; Admin Dose 44 UNIT; Start 08/23/16 at 17:00 Warfarin Sodium (Coumadin) 5 mg DAILY@17 GTB Last administered on 09/05/16 16: 26; Admin Dose 5 MG; Start 08/27/16 at 17:00 Epoetin Eloy (Epogen (Esrd)) 10,000 units MoWeFr@17 SC Last administered on 09/05 16:27; Admin Dose 10,000 UNITS; Start 08/29/16 at 17:00 Levetiracetam 1000 mg 1,000 mg BID GTB Last administered on 09/06/16 08:41; Admin Dose 1,000 MG; Start 08/29/16 at 21:00 Cefepime HCl 50 ml @ 100 mls/hr Q24H IVPB Last administered on 09/05/16 16:25 ; Admin Dose 100 MLS/HR; Start 09/03/16 at 12:00 Vancomycin HCl (Vancocin) 250 ml @ 125 mls/hr Q96H IVPB Last administered on 16:25; Admin Dose 125 MLS/HR; Start 09/05/16 at 16:00 Amikacin Sulfate (Amikacin Iv Per Pharmacy) AMIKACIN PER PHARMACY NOTE XX ; Start 09/05/16 at 12:30 Acetaminophen (Tylenol Liquid) 650 mg Q4H PRN GTB PAIN AND OR ELEVATED TEMP Last administered on 09/06/16 08:46; Admin Dose 650 MG; Start 09/06/16 at 12:00 Amiodarone HCl (Cordarone) 200 mg DAILY GTB Last administered on 09/06/16 08:47 ; Admin Dose 200 MG; Start 09/06/16 at 09:00 Calcium Acetate (Phoslo) 667 mg Q6 GTB ; Start 09/06/16 at 12:00 Metoprolol Tartrate (Lopressor) 50 mg BID GTB ; Start 09/06/16 at 09:00 Levofloxacin (Levaquin) 250 mg Q48H NGT ; Start 09/06/16 at 11:00 NINFA PACK MD Sep 06, 2016 10:50
[2016-09-06] MEDS: ARFORMOTEROL TARTRATE 15MCG/2 ML AMP NEB SCH ×2 (10:58→20:00)
[2016-09-06] MEDS ORDERED: LEVOFLOXACIN 250 MG TAB NGT SCH (11:00)
[2016-09-06] MEDS: IBUPROFEN 600 MG TAB GTB SCH ×2 (12:46→17:24)
[2016-09-06] MEDS: CALCIUM ACETATE 667 MG CAP GTB SCH ×2 (12:46→17:24)
[2016-09-06] MEDS: CEFEPIME 1GM/50 ML IVPB SCH (12:50)
[2016-09-06] MEDS ORDERED: AMIKACIN 400 MG in SOD CHLORIDE 0.9% 100 ML IVPB SCH (14:00)
--- NOTE | 2016-09-06 14:04 | PN ---
DATE: SUBJECTIVE: No events overnight. The patient is lying comfortably in bed, continues to spike fevers with a temperature max this morning 102.7. MICROBIOLOGY: Blood culture since 09/02/2016 negative. Sputum culture growing Enterobacter cloacae complex, Stenotrophomonas maltophilia and corynebacterium species susceptible to Levaquin. INDWELLINGS: Trach, PEG, left upper extremity AV fistula, RUE PICC. ANTIMICROBIALS: 1. Amikacin. 2. Levaquin. 3. Vancomycin. 4. Cefepime. PHYSICAL EXAMINATION: GENERAL: Chronically ill-appearing, middle-aged [place] man who is in no distress. HEENT: Head atraumatic, normocephalic. Sclerae anicteric. Buccal mucosa dry. NECK: Supple. Tracheostomy present. CHEST: Rise symmetrical. Breath sounds diminished to bases. HEART: S1, S2. ABDOMEN: Obese, soft. Bowel sounds hypoactive. EXTREMITIES: Without cyanosis. ASSESSMENT: 1. Sepsis with persistent fevers and leukocytosis. 2. Healthcare-associated pneumonia. 3. End-stage renal disease, hemodialysis dependent. 4. Anoxic encephalopathy, status post cardiopulmonary arrest. 5. Cerebrovascular accident. 6. Diabetes. PLAN: The patient remains clinically unchanged. We are going to repeat blood cultures today. Continue him on current antimicrobials. Continue management as per primary team and consultants. We might change Levaquin to Bactrim given the fact that he is on Cordarone to avoid interaction. We will discuss with pharmacy.Consider dc PICC Dictated By: AGUS CHEN GIFT MANAGER for MIKE CHANEY/BATSHEVA Conf#: [id number] DID#: [id number]
[2016-09-06] MEDS: WARFARIN 5 MG TAB GTB SCH (17:24)
[2016-09-06] MEDS ORDERED: LEVOFLOXACIN 250 MG TAB GTB SCH (18:00)
--- NOTE | 2016-09-06 20:29 | RADRPT ---
PROCEDURE: XR Chest. CLINICAL INDICATION: Cardiac arrest TECHNIQUE: Single AP portable chest COMPARISON: 09/02/2016 FINDINGS: The cardiomediastinal silhouette is within normal limits of size . Stable support devices. The lung s are clear without pleural effusion or focal consolidation. No pneumothorax. The osseous structures and soft tissues are unremarkable. IMPRESSION: 1. No evidence for active cardiopulmonary disease. RPTAT:AAJJ Remington Bateman Physician Date Time Electronically viewed and signed by Remington Bateman Physician on 09/06/2016 20:29 DAVID/
[2016-09-07] VITALS (20 sets, daily range): BP systolic 82–148; BP diastolic 50–76; PULSE 91–111; RESP 16–20
[2016-09-07] MEDS: CALCIUM ACETATE 667 MG CAP GTB SCH ×4 (00:39→16:54)
[2016-09-07] MEDS: IBUPROFEN 600 MG TAB GTB SCH ×4 (00:39→16:54)
[2016-09-07] MEDS: INSULIN ASPART [NOVOLOG] 3 ML PEN SC SCH ×4 (00:42→17:03)
[2016-09-07] MEDS: NPH, HUMAN INSULIN ISOPHANE 3ML VIAL SC SCH ×3 (00:42→17:00)
[2016-09-07] MEDS: ALBUTEROL HFA 8 GM INHALER INH SCH ×5 (01:10→16:40)
[2016-09-07] MEDS: IPRATROPIUM (HFA) 12.9 GM INHALER INH SCH ×5 (01:10→16:40)
[2016-09-07] MEDS: LANSOPRAZOLE 30 MG CAP NGT SCH (05:14)
[2016-09-07] MEDS: NA BICARBONATE 650 MG TAB NGT SCH (05:14)
--- NOTE | 2016-09-07 08:33 | CONS ---
Date/Time of Note Date/Time of Note DATE: 09/07/16 TIME: 08:31 Assessment/Plan Assessment/Plan Chief Complaint/Hosp Course #1 end-stage renal disease . He has hemodialysis ordered for tomorrow . #2 the patient is status post a cardiac arrest at home #3 altered level of consciousness, probable anoxic encephalopathy. His prognosis for recovery seems poor. #4 insulin-dependent diabetes mellitus #5 seizures #6 ventilator dependent respiratory failure , h/o COPD. #7 hyperphosphatemia , calcium acetate is being given . #8 h/o A fib , he was cardioverted and now is on warfarin . #9 dietary consult ordered , will continue tube feeding rate at 30 cc/hr . #10 anemia , on Epogen Problems: Consultation Date/Type/Reason Admit Date/Time Jul 27, 2016 at 23:29 Initial Consult Date 07/28/16 Type of Consultation: Pulmonary Referring Provider: BARNEY MCKEE 24 HR Interval Summary Free Text/Dictation He is unresponsive on a ventilator . Subjective hx not possible: pt non-verbal Exam/Review of Systems Vital Signs Vitals Vital Signs Date Time Temp Pulse Resp B/P Pulse Ox O2 Delivery O2 Flow Rate FiO2 09/07/16 08:26 30 09/07/16 08:09 114 16 97 09/07/16 07:17 102.6 148/70 09/07/16 04:00 Mechanical Ventilator Intake and Output 09/06/16 09/06/16 09/07/16 15:00 23:00 07:00 Intake Total 50 ml 1180 ml 610 ml Output Total 3500 ml Balance 50 ml -2320 ml 610 ml Exam Constitutional: non-verbal Respiratory: clear to auscultation, diminished breath sounds Cardiovascular: regular rate and rhythm Gastrointestinal: soft Musculoskeletal: nl extremities to inspection Results Result Diagram: 09/06/16 0631 09/06/16 0631 Results 24 hrs Laboratory Tests Test 09/06/16 12:04 09/06/16 17:08 09/07/16 00:38 09/07/16 05:15 Bedside Glucose 173 207 219 173 Test 09/07/16 08:18 Bedside Glucose 188 Medications Medications Current Medications Labetalol HCl (Labetalol) 10 mg Q6H PRN IV sbp > 160 Last administered on t 18:33; Admin Dose 10 MG; Start 07/28/16 at 00:30 Acetaminophen (Tylenol Supp) 650 mg Q6H PRN [place] PAIN AND OR ELEVATED TEMP Last administered on 07/31/16 17:30; Admin Dose 650 MG; Start 07/28/16 at 08:30 Miscellaneous Information 1 ea NOTE XX ; Start 07/28/16 at 09:00 Glucose (Glutose) 15 gm Q15M PRN PO DECREASED GLUCOSE; Start 07/28/16 at 09:00 Glucose (Glutose) 22.5 gm Q15M PRN PO DECREASED GLUCOSE; Start 07/28/16 at 09: 00 Dextrose (D50w Syringe) 25 ml Q15M PRN IV DECREASED GLUCOSE; Start 07/28/16 at 09:00 Dextrose (D50w Syringe) 50 ml Q15M PRN IV DECREASED GLUCOSE; Start 07/28/16 at 09:00 Glucagon (Glucagen) 1 mg Q15M PRN IM DECREASED GLUCOSE; Start 07/28/16 at 09:00 Glucose (Glutose) 15 gm Q15M PRN BUCCAL DECREASED GLUCOSE; Start 07/28/16 at 09 :00 IV Flush (NS 10 ml) 10 ml PRN PRN IV IV PROTOCOL; Start 07/29/16 at 17:00 Morphine Sulfate (morphine) 2 mg Q4 PRN IV PAIN Last administered on 08/12/16 23:38; Admin Dose 2 MG; Start 07/31/16 at 12:00 Lorazepam (Ativan) 1 mg Q1H PRN IV SEIZURES Last administered on 08/11/16 12:25 ; Admin Dose 1 MG; Start 08/02/16 at 02:00 Hydralazine HCl (Apresoline) 10 mg Q4H PRN IV ELEVATED SYSTOLIC BP Last administered on 09/02/16 00:58; Admin Dose 10 MG; Start 08/06/16 at 01:30 Eye Lubricant (Artificial Tears Oph) 2 drop TID BOTH EYES Last administered on 09/06/16 22:23; Admin Dose 2 DROP; Start 08/13/16 at 09:00 Lansoprazole (Prevacid) 30 mg DAILY@06 NGT Last administered on 09/07/16 05:14 ; Admin Dose 30 MG; Start 08/18/16 at 06:00 Insulin Aspart (Novolog Insulin Pen) NOVOLOG *MODERATE* ALGORI... Q6 SC Last administered on 09/07/16 06:07; Admin Dose 2 UNIT; Start 08/19/16 at 00:00 Zinc Oxide (Desitin) 1 applic PRN PRN TOP RASH Last administered on 08/28/16 06:26; Admin Dose 1 APPLIC; Start 08/21/16 at 17:30 Sodium Bicarbonate (Sodium Bicarbonate Tab) 650 mg Q8 NGT Last administered on 09/07/16 05:14; Admin Dose 650 MG; Start 08/22/16 at 22:00 Insulin Human NPH (Humulin N) 44 unit 01,09,17 SC Last administered on 00:42; Admin Dose 44 UNIT; Start 08/23/16 at 17:00 Warfarin Sodium (Coumadin) 5 mg DAILY@17 GTB Last administered on 09/06/16 17: 24; Admin Dose 5 MG; Start 08/27/16 at 17:00 Epoetin Eloy (Epogen (Esrd)) 10,000 units MoWeFr@17 SC Last administered on 09/05 16:27; Admin Dose 10,000 UNITS; Start 08/29/16 at 17:00 Levetiracetam 1000 mg 1,000 mg BID GTB Last administered on 09/06/16 23:34; Admin Dose 1,000 MG; Start 08/29/16 at 21:00 Cefepime HCl 50 ml @ 100 mls/hr Q24H IVPB Last administered on 09/06/16 12:50 ; Admin Dose 100 MLS/HR; Start 09/03/16 at 12:00 Vancomycin HCl (Vancocin) 250 ml @ 125 mls/hr Q96H IVPB Last administered on 16:25; Admin Dose 125 MLS/HR; Start 09/05/16 at 16:00 Amikacin Sulfate (Amikacin Iv Per Pharmacy) AMIKACIN PER PHARMACY NOTE XX ; Start 09/05/16 at 12:30 Acetaminophen (Tylenol Liquid) 650 mg Q4H PRN GTB PAIN AND OR ELEVATED TEMP Last administered on 09/06/16 08:46; Admin Dose 650 MG; Start 09/06/16 at 12:00 Amiodarone HCl (Cordarone) 200 mg DAILY GTB Last administered on 09/06/16 08:47 ; Admin Dose 200 MG; Start 09/06/16 at 09:00 Calcium Acetate (Phoslo) 667 mg Q6 GTB Last administered on 09/07/16 05:14; Admin Dose 667 MG; Start 09/06/16 at 12:00 Metoprolol Tartrate (Lopressor) 50 mg BID GTB Last administered on 09/06/16 22: 25; Admin Dose 50 MG; Start 09/06/16 at 09:00 Ibuprofen (Motrin) 600 mg Q6 GTB Last administered on 09/07/16 05:14; Admin Dose 600 MG; Start 09/06/16 at 12:00 Levofloxacin (Levaquin) 250 mg Q48H GTB Last administered on 09/06/16 17:50; Admin Dose 250 MG; Start 09/06/16 at 18:00 ROSCOE LANGE MD Sep 07, 2016 08:33
[2016-09-07] MEDS: LEVETIRACETAM (100 MG/ML) 5ML CUP GTB SCH (08:36)
[2016-09-07] MEDS: ACETAMINOPHEN 650MG/20.3ML CUP GTB PRN ×2 (08:36→18:41)
[2016-09-07] MEDS: AMIODARONE 200 MG TAB GTB SCH (08:37)
[2016-09-07] MEDS: METOPROLOL 50 MG TAB GTB SCH (08:37)
[2016-09-07] MEDS: ARTIFICIAL TEARS 15 ML OPH BOTH EYES SCH ×2 (08:38→12:57)
[2016-09-07] MEDS: BUDESONIDE (NEB) 0.5MG/2ML AMP HHN SCH (08:54)
--- NOTE | 2016-09-07 09:05 | PN ---
Date/Time of Note Date/Time of Note DATE: 09/07/16 TIME: 08:58 Assessment/Plan VTE Prophylaxis VTE Prophylaxis Intervention: other (coumadin ) Lines/Catheters IV Catheter Type (from Nrs): PICC Line Central line still needed: Yes (Dialysis ) Urinary Cath still in place: No Exam/Review of Systems Vital Signs Vitals Vital Signs Date Time Temp Pulse Resp B/P Pulse Ox O2 Delivery O2 Flow Rate FiO2 09/07/16 08:48 111 09/07/16 08:26 30 09/07/16 08:09 16 97 09/07/16 08:00 100.3 09/07/16 07:17 148/70 09/07/16 04:00 Mechanical Ventilator Intake and Output 09/06/16 09/06/16 09/07/16 15:00 23:00 07:00 Intake Total 50 ml 1180 ml 610 ml Output Total 3500 ml Balance 50 ml -2320 ml 610 ml Results Result Diagram: 09/06/16 0631 09/06/16 0631 Results 24 hrs Laboratory Tests Test 09/06/16 12:04 09/06/16 17:08 09/07/16 00:38 09/07/16 05:15 Bedside Glucose 173 207 219 173 Test 09/07/16 08:18 Bedside Glucose 188 Medications Medications Current Medications Labetalol HCl (Labetalol) 10 mg Q6H PRN IV sbp > 160 Last administered on 18:33; Admin Dose 10 MG; Start 07/28/16 at 00:30 Acetaminophen (Tylenol Supp) 650 mg Q6H PRN [place] PAIN AND OR ELEVATED TEMP Last administered on 07/31/16 17:30; Admin Dose 650 MG; Start 07/28/16 at 08:30 Miscellaneous Information 1 ea NOTE XX ; Start 07/28/16 at 09:00 Glucose (Glutose) 15 gm Q15M PRN PO DECREASED GLUCOSE; Start 07/28/16 at 09:00 Glucose (Glutose) 22.5 gm Q15M PRN PO DECREASED GLUCOSE; Start 07/28/16 at 09: 00 Dextrose (D50w Syringe) 25 ml Q15M PRN IV DECREASED GLUCOSE; Start 07/28/16 at 09:00 Dextrose (D50w Syringe) 50 ml Q15M PRN IV DECREASED GLUCOSE; Start 07/28/16 at 09:00 Glucagon (Glucagen) 1 mg Q15M PRN IM DECREASED GLUCOSE; Start 07/28/16 at 09:00 Glucose (Glutose) 15 gm Q15M PRN BUCCAL DECREASED GLUCOSE; Start 07/28/16 at 09 :00 IV Flush (NS 10 ml) 10 ml PRN PRN IV IV PROTOCOL; Start 07/29/16 at 17:00 Morphine Sulfate (morphine) 2 mg Q4 PRN IV PAIN Last administered on 08/12/16 23:38; Admin Dose 2 MG; Start 07/31/16 at 12:00 Lorazepam (Ativan) 1 mg Q1H PRN IV SEIZURES Last administered on 08/11/16 12:25 ; Admin Dose 1 MG; Start 08/02/16 at 02:00 Hydralazine HCl (Apresoline) 10 mg Q4H PRN IV ELEVATED SYSTOLIC BP Last administered on 09/02/16 00:58; Admin Dose 10 MG; Start 08/06/16 at 01:30 Eye Lubricant (Artificial Tears Oph) 2 drop TID BOTH EYES Last administered on 09/07/16 08:38; Admin Dose 2 DROP; Start 08/13/16 at 09:00 Lansoprazole (Prevacid) 30 mg DAILY@06 NGT Last administered on 09/07/16 05:14 ; Admin Dose 30 MG; Start 08/18/16 at 06:00 Insulin Aspart (Novolog Insulin Pen) NOVOLOG *MODERATE* ALGORI... Q6 SC Last administered on 09/07/16 06:07; Admin Dose 2 UNIT; Start 08/19/16 at 00:00 Zinc Oxide (Desitin) 1 applic PRN PRN TOP RASH Last administered on 08/28/16 06:26; Admin Dose 1 APPLIC; Start 08/21/16 at 17:30 Sodium Bicarbonate (Sodium Bicarbonate Tab) 650 mg Q8 NGT Last administered on 09/07/16 05:14; Admin Dose 650 MG; Start 08/22/16 at 22:00 Insulin Human NPH (Humulin N) 44 unit ,,17 SC Last administered on 08:47; Admin Dose 44 UNIT; Start 08/23/16 at 17:00 Warfarin Sodium (Coumadin) 5 mg DAILY@17 GTB Last administered on 09/06/16 17: 24; Admin Dose 5 MG; Start 08/27/16 at 17:00 Epoetin Eloy (Epogen (Esrd)) 10,000 units MoWeFr@17 SC Last administered on 09/05 16:27; Admin Dose 10,000 UNITS; Start 08/29/16 at 17:00 Levetiracetam 1000 mg 1,000 mg BID GTB Last administered on 09/07/16 08:36; Admin Dose 1,000 MG; Start 08/29/16 at 21:00 Cefepime HCl 50 ml @ 100 mls/hr Q24H IVPB Last administered on 09/06/16 12:50 ; Admin Dose 100 MLS/HR; Start 09/03/16 at 12:00 Vancomycin HCl (Vancocin) 250 ml @ 125 mls/hr Q96H IVPB Last administered on 16:25; Admin Dose 125 MLS/HR; Start 09/05/16 at 16:00 Amikacin Sulfate (Amikacin Iv Per Pharmacy) AMIKACIN PER PHARMACY NOTE XX ; Start 09/05/16 at 12:30 Acetaminophen (Tylenol Liquid) 650 mg Q4H PRN GTB PAIN AND OR ELEVATED TEMP Last administered on 09/07/16 08:36; Admin Dose 650 MG; Start 09/06/16 at 12:00 Amiodarone HCl (Cordarone) 200 mg DAILY GTB Last administered on 09/07/16 08:37 ; Admin Dose 200 MG; Start 09/06/16 at 09:00 Calcium Acetate (Phoslo) 667 mg Q6 GTB Last administered on 09/07/16 08:37; Admin Dose 667 MG; Start 09/06/16 at 12:00 Metoprolol Tartrate (Lopressor) 50 mg BID GTB Last administered on 09/07/16 08: 37; Admin Dose 50 MG; Start 09/06/16 at 09:00 Ibuprofen (Motrin) 600 mg Q6 GTB Last administered on 09/07/16 05:14; Admin Dose 600 MG; Start 09/06/16 at 12:00 Levofloxacin (Levaquin) 250 mg Q48H GTB Last administered on 09/06/16 17:50; Admin Dose 250 MG; Start 09/06/16 at 18:00 NINFA PACK MD Sep 07, 2016 09:04
--- NOTE | 2016-09-07 09:55 | PN ---
Date/Time of Note Date/Time of Note DATE: 09/07/16 TIME: 09:52 Assessment/Plan VTE Prophylaxis VTE Prophylaxis Intervention: other (coumadin) Lines/Catheters IV Catheter Type (from Nrs): PICC Line Central line still needed: Yes Urinary Cath still in place: No (access for HD) Assessment/Plan Assessment/Plan 1. Status post cardiac arrest secondary to PEA. Status post trach and PEG. Family hesitant on changing the code status. EEG performed 08/24 with findings of: Abnormal study secondary to background slowing which could reflect encephalopathy. Could be anoxic or toxic metabolic in etiology. MRI brain on 08/26: Single focus of restricted diffusion in the left superior frontal lobe at the level of the precentral gyrus compatible with acute / subacute ischemic infarct. No edema, mass effect hemorrhage. - monitor, family explained in detail today at bedside yesterday about prognosis, including most likely poor outcome given encephalopathy - likely sec to anoxic brain injury from arrest on admission. Pt's son still wants full Neuro eval and repeat EEG. - f/u Neuro consult rec's, possible repeat EEG 2. Acute respiratory failure, hypoxic. - Continue ventilator management as per pulmonary. - Continue inhaled bronchodilators. 3. End-stage renal disease on hemodialysis. - Continue hemodialysis as per nephrology. - epogen, permacath for HD access 4. Status post systemic inflammatory response syndrome. Status post antibiotics - but still + fever and now + UA. - monitor, fevers likely central in origin 5. Paroxysmal atrial fibrillation with rapid ventricular response. Currently in sinus rhythm. - continue amiodarone and metoprolol. - continue warfarin for stroke prophylaxis. 6. Type 2 diabetes mellitus. Hemoglobin A1c 7.3. - Continue insulin sliding scale along with Lantus insulin. 7. Essential hypertension. - Continue antihypertensives. 8. Seizure disorder. Most probably secondary to anoxia. - Continue anticonvulsants. 9. Possible underlying anoxic encephalopathy. Again, brain MRI showing a single focus of restricted diffusion in the left superior frontal lobe at the level of the precentral gyrus compatible with acute/subacute ischemic infarct. - monitor for now -Neuro consult (see # 1) 10. Normocytic normochromic anemia, most probably anemia of chronic kidney disease. - Will monitor H and H closely, on epogen as well 11. Fluid, electrolytes and nutrition. - Continue G-tube feedings. 12. Deep venous thrombosis prophylaxis. On warfarin. 13. Gastrointestinal prophylaxis. Proton pump inhibitors. 14. fevers- UA + now. fever sec to neurogenic (central) in origin given likely anoxic brain injury vs sepsis from +UTI. Hx of Hep B+C positive as well. - continue abx, sputumg cx grew heavy growth of gram negative rods PLAN: Continue inpatient care. Still holding valproic acid because of high serum levels on 08/27/16. [facility]ing [facility] a [facility] facility. I spoke with [facility] director medical safety 3 days ago to discuss pt's difficulty in placement due to ESRD on HD, + Hep B, PEA/anoxic brain injury, and trach dependent res failure -possible plan for d/c to [facility] Subjective 24 Hr Interval Summary Free Text/Dictation pt still has low grade fever, BP stable, plan for HD as per nephrology Exam/Review of Systems Vital Signs Vitals Vital Signs Date Time Temp Pulse Resp B/P Pulse Ox O2 Delivery O2 Flow Rate FiO2 09/07/16 08:57 98 16 98 30 09/07/16 08:00 100.3 09/07/16 07:17 148/70 09/07/16 04:00 Mechanical Ventilator Intake and Output 09/06/16 09/06/16 09/07/16 15:00 23:00 07:00 Intake Total 50 ml 1180 ml 610 ml Output Total 3500 ml Balance 50 ml -2320 ml 610 ml Exam GENERAL: lying in bed, unresponsive HEENT: Tracheostomy on ventilator RESPIRATORY: less bilateral diminished breath sounds. Tracheostomy connected to mechanical ventilator. CARDIAC: Regular rate and rhythm. No obvious murmurs heard. ABDOMEN: Soft, nontender and nondistended. Left upper quadrant G-tube in place. EXTREMITIES: No cyanosis, no clubbing, no edema. Peripheral pulses are palpable. NEUROLOGIC: The patient is obtunded. Opens eyes. Does not follow any commands. Results Result Diagram: 09/06/16 0631 09/06/16 0631 Results 24 hrs Laboratory Tests Test 09/06/16 12:04 09/06/16 17:08 09/07/16 00:38 09/07/16 05:15 Bedside Glucose 173 207 219 173 Test 09/07/16 08:18 Bedside Glucose 188 Medications Medications Current Medications Labetalol HCl (Labetalol) 10 mg Q6H PRN IV sbp > 160 Last administered on 18:33; Admin Dose 10 MG; Start 07/28/16 at 00:30 Acetaminophen (Tylenol Supp) 650 mg Q6H PRN [place] PAIN AND OR ELEVATED TEMP Last administered on 07/31/16 17:30; Admin Dose 650 MG; Start 07/28/16 at 08:30 Miscellaneous Information 1 ea NOTE XX ; Start 07/28/16 at 09:00 Glucose (Glutose) 15 gm Q15M PRN PO DECREASED GLUCOSE; Start 07/28/16 at 09:00 Glucose (Glutose) 22.5 gm Q15M PRN PO DECREASED GLUCOSE; Start 07/28/16 at 09: 00 Dextrose (D50w Syringe) 25 ml Q15M PRN IV DECREASED GLUCOSE; Start 07/28/16 at 09:00 Dextrose (D50w Syringe) 50 ml Q15M PRN IV DECREASED GLUCOSE; Start 07/28/16 at 09:00 Glucagon (Glucagen) 1 mg Q15M PRN IM DECREASED GLUCOSE; Start 07/28/16 at 09:00 Glucose (Glutose) 15 gm Q15M PRN BUCCAL DECREASED GLUCOSE; Start 07/28/16 at 09 :00 IV Flush (NS 10 ml) 10 ml PRN PRN IV IV PROTOCOL; Start 07/29/16 at 17:00 Morphine Sulfate (morphine) 2 mg Q4 PRN IV PAIN Last administered on 08/12/16 23:38; Admin Dose 2 MG; Start 07/31/16 at 12:00 Lorazepam (Ativan) 1 mg Q1H PRN IV SEIZURES Last administered on 08/11/16 12:25 ; Admin Dose 1 MG; Start 08/02/16 at 02:00 Hydralazine HCl (Apresoline) 10 mg Q4H PRN IV ELEVATED SYSTOLIC BP Last administered on 09/02/16 00:58; Admin Dose 10 MG; Start 08/06/16 at 01:30 Eye Lubricant (Artificial Tears Oph) 2 drop TID BOTH EYES Last administered on 09/07/16 08:38; Admin Dose 2 DROP; Start 08/13/16 at 09:00 Lansoprazole (Prevacid) 30 mg DAILY@06 NGT Last administered on 09/07/16 05:14 ; Admin Dose 30 MG; Start 08/18/16 at 06:00 Insulin Aspart (Novolog Insulin Pen) NOVOLOG *MODERATE* ALGORI... Q6 SC Last administered on 09/07/16 06:07; Admin Dose 2 UNIT; Start 08/19/16 at 00:00 Zinc Oxide (Desitin) 1 applic PRN PRN TOP RASH Last administered on 08/28/16 06:26; Admin Dose 1 APPLIC; Start 08/21/16 at 17:30 Sodium Bicarbonate (Sodium Bicarbonate Tab) 650 mg Q8 NGT Last administered on 09/07/16 05:14; Admin Dose 650 MG; Start 08/22/16 at 22:00 Insulin Human NPH (Humulin N) 44 unit ,, SC Last administered on 08:47; Admin Dose 44 UNIT; Start 08/23/16 at 17:00 Warfarin Sodium (Coumadin) 5 mg DAILY@17 GTB Last administered on 09/06/16 17: 24; Admin Dose 5 MG; Start 08/27/16 at 17:00 Epoetin Eloy (Epogen (Esrd)) 10,000 units MoWeFr@17 SC Last administered on 09/05 16:27; Admin Dose 10,000 UNITS; Start 08/29/16 at 17:00 Levetiracetam 1000 mg 1,000 mg BID GTB Last administered on 09/07/16 08:36; Admin Dose 1,000 MG; Start 08/29/16 at 21:00 Cefepime HCl 50 ml @ 100 mls/hr Q24H IVPB Last administered on 09/06/16 12:50 ; Admin Dose 100 MLS/HR; Start 09/03/16 at 12:00 Vancomycin HCl (Vancocin) 250 ml @ 125 mls/hr Q96H IVPB Last administered on 16:25; Admin Dose 125 MLS/HR; Start 09/05/16 at 16:00 Amikacin Sulfate (Amikacin Iv Per Pharmacy) AMIKACIN PER PHARMACY NOTE XX ; Start 09/05/16 at 12:30 Acetaminophen (Tylenol Liquid) 650 mg Q4H PRN GTB PAIN AND OR ELEVATED TEMP Last administered on 09/07/16 08:36; Admin Dose 650 MG; Start 09/06/16 at 12:00 Amiodarone HCl (Cordarone) 200 mg DAILY GTB Last administered on 09/07/16 08:37 ; Admin Dose 200 MG; Start 09/06/16 at 09:00 Calcium Acetate (Phoslo) 667 mg Q6 GTB Last administered on 09/07/16 08:37; Admin Dose 667 MG; Start 09/06/16 at 12:00 Metoprolol Tartrate (Lopressor) 50 mg BID GTB Last administered on 09/07/16 08: 37; Admin Dose 50 MG; Start 09/06/16 at 09:00 Ibuprofen (Motrin) 600 mg Q6 GTB Last administered on 09/07/16 05:14; Admin Dose 600 MG; Start 09/06/16 at 12:00 Levofloxacin (Levaquin) 250 mg Q48H GTB Last administered on 09/06/16 17:50; Admin Dose 250 MG; Start 09/06/16 at 18:00 NINFA PACK MD Sep 07, 2016 09:55
[2016-09-07] MEDS: ARFORMOTEROL TARTRATE 15MCG/2 ML AMP NEB SCH (09:57)
--- NOTE | 2016-09-07 09:57 | PDOCDIS ---
Discharge Instructions CONDITION Patient Condition: Stable HOME CARE INSTRUCTIONS: Special Diet: Tube feeding ACTIVITY: Activity Restrictions: Slowly Increase Activity Rest between Activity Avoid heavy lifting FOLLOW UP/APPOINTMENTS Appointments follow up with physician at [facility], pt will need to see Road Oiler and Crew Mess Attendant at that facility NINFA PACK MD Sep 07, 2016 09:57
--- NOTE | 2016-09-07 12:59 | PN ---
DATE: 09/07/2016 SUBJECTIVE: No events. The patient is lying comfortably in bed, continues to spike fevers with a T -max of 102.6. MICROBIOLOGY: Blood culture from yesterday growing gram-positive cocci in pairs and chains. INDWELLINGS: Trach, PEG, left upper extremity AV fistula, right upper extremity PICC line placed on 07/29/2016. ANTIMICROBIALS: The patient is on: 1. Levaquin. 2. Amikacin. 3. Vancomycin. 4. Cefepime. PHYSICAL EXAMINATION: GENERAL: This is a chronically ill-appearing, middle-aged American man who is lying comfortably in bed. Patient is nonverbal, noncommunicative. HEENT: Head atraumatic, normocephalic. Sclerae anicteric. Buccal mucosa dry. NECK: Supple. Tracheostomy present. CHEST: Rise symmetrical. Breath sounds diminished at the bases. HEART: S1, S2. ABDOMEN: Soft. Bowel tones present. EXTREMITIES: Without cyanosis. ASSESSMENT: 1. Sepsis with bacteremia, rule out line sepsis. 2. Chronic respiratory failure with sputum culture growing multi-drug resistant organisms. 3. End-stage renal disease, hemodialysis dependent. 4. Anoxic encephalopathy status post cardiopulmonary arrest. 5. History of cerebrovascular accident and diabetes. PLAN: The patient remains stable. We are going to discontinue PICC line. Continue him on IV vanco mycin, Levaquin and amikacin. Discontinue cefepime. Repeat blood cultures tomorrow and consider re peat 2D echo if it is not done recently. Dictated By: AGUS CHEN FORENSIC ECONOMIST for MIKE CHANEY/BATSHEVA Conf#: [id number] DID#: [id number]
--- NOTE | 2016-09-07 13:19 | CONS ---
Date/Time of Note Date/Time of Note DATE: 09/07/16 TIME: 13:17 Assessment/Plan Assessment/Plan Additional Assessment/Plan Assessment recommendations; 1. Patient with chronic respiratory failure diabetic for sepsis and pneumonia. Patient initially improved but then had recurrent pneumonia currently on broad -spectrum antibiotic coverage. 2. Episode of proximal A. fib currently in sinus rhythm 3. Stable seizure disorder 4. Hypertension 5. Diabetes 6. Chronic renal failure on hemodialysis. Continue current treatment. Patient awaiting discharge. Consultation Date/Type/Reason Admit Date/Time Jul 27, 2016 at 23:29 Initial Consult Date 07/28/16 Type of Consultation: Pulmonary Referring Provider: BARNEY MCKEE 24 HR Interval Summary Free Text/Dictation Patient condition remains stable. Remains unresponsive to the anoxic enthesopathy. Has remained hemodynamically stable. General examination; elderly male, on ventilator via tracheostomy currently in no distress. Exam/Review of Systems Vital Signs Vitals Vital Signs Date Time Temp Pulse Resp B/P Pulse Ox O2 Delivery O2 Flow Rate FiO2 09/07/16 13:06 91 16 99 30 09/07/16 11:39 99.1 123/65 09/07/16 04:00 Mechanical Ventilator Intake and Output 09/06/16 09/06/16 09/07/16 15:00 23:00 07:00 Intake Total 50 ml 1180 ml 610 ml Output Total 3500 ml Balance 50 ml -2320 ml 610 ml Exam H EENT examination; supple neck, no JVD. No lymphadenopathy. Midline trachea. No thyromegaly. Tracheostomy in place with clean insertion site. Patient is edentulous. Chest examination; clear to auscultation bilaterally. S1-S2 audible, no murmurs. Regular rhythm. Abdomen examination; soft, nondistended. G-tube in place. Bowel sounds audible. Extremity examination; no peripheral edema. Next DIRECTOR OF [employer]ING [employer] examination; patient remains unresponsive. Results Result Diagram: 09/06/1663009/06/1631 Results 24 hrs Laboratory Tests Test 09/06/16 17:08 09/07/16 00:38 09/07/16 05:15 09/07/16 08:18 Bedside Glucose 207 219 173 188 Test 09/07/16 11:55 Bedside Glucose 180 Medications Medications Current Medications Labetalol HCl (Labetalol) 10 mg Q6H PRN IV sbp > 160 Last administered on 18:33; Admin Dose 10 MG; Start 07/28/16 at 00:30 Acetaminophen (Tylenol Supp) 650 mg Q6H PRN [place] PAIN AND OR ELEVATED TEMP Last administered on 07/31/16 17:30; Admin Dose 650 MG; Start 07/28/16 at 08:30 Miscellaneous Information 1 ea NOTE XX ; Start 07/28/16 at 09:00 Glucose (Glutose) 15 gm Q15M PRN PO DECREASED GLUCOSE; Start 07/28/16 at 09:00 Glucose (Glutose) 22.5 gm Q15M PRN PO DECREASED GLUCOSE; Start 07/28/16 at 09: 00 Dextrose (D50w Syringe) 25 ml Q15M PRN IV DECREASED GLUCOSE; Start 07/28/16 at 09:00 Dextrose (D50w Syringe) 50 ml Q15M PRN IV DECREASED GLUCOSE; Start 07/28/16 at 09:00 Glucagon (Glucagen) 1 mg Q15M PRN IM DECREASED GLUCOSE; Start 07/28/16 at 09:00 Glucose (Glutose) 15 gm Q15M PRN BUCCAL DECREASED GLUCOSE; Start 07/28/16 at 09 :00 IV Flush (NS 10 ml) 10 ml PRN PRN IV IV PROTOCOL; Start 07/29/16 at 17:00 Morphine Sulfate (morphine) 2 mg Q4 PRN IV PAIN Last administered on 08/12/16 23:38; Admin Dose 2 MG; Start 07/31/16 at 12:00 Lorazepam (Ativan) 1 mg Q1H PRN IV SEIZURES Last administered on 08/11/16 12:25 ; Admin Dose 1 MG; Start 08/02/16 at 02:00 Hydralazine HCl (Apresoline) 10 mg Q4H PRN IV ELEVATED SYSTOLIC BP Last administered on 09/02/16 00:58; Admin Dose 10 MG; Start 08/06/16 at 01:30 Eye Lubricant (Artificial Tears Oph) 2 drop TID BOTH EYES Last administered on 09/07/16 12:57; Admin Dose 2 DROP; Start 08/13/16 at 09:00 Lansoprazole (Prevacid) 30 mg DAILY@06 NGT Last administered on 09/07/16 05:14 ; Admin Dose 30 MG; Start 08/18/16 at 06:00 Insulin Aspart (Novolog Insulin Pen) NOVOLOG *MODERATE* ALGORI... Q6 SC Last administered on 09/07/16 11:57; Admin Dose 2 UNIT; Start 08/19/16 at 00:00 Zinc Oxide (Desitin) 1 applic PRN PRN TOP RASH Last administered on 08/28/16 06:26; Admin Dose 1 APPLIC; Start 08/21/16 at 17:30 Insulin Human NPH (Humulin N) 44 unit , SC Last administered on 08:47; Admin Dose 44 UNIT; Start 08/23/16 at 17:00 Warfarin Sodium (Coumadin) 5 mg DAILY@17 GTB Last administered on 09/06/16 17: 24; Admin Dose 5 MG; Start 08/27/16 at 17:00 Epoetin Eloy (Epogen (Esrd)) 10,000 units MoWeFr@17 SC Last administered on 09/05 16:27; Admin Dose 10,000 UNITS; Start 08/29/16 at 17:00 Levetiracetam 1000 mg 1,000 mg BID GTB Last administered on 09/07/16 08:36; Admin Dose 1,000 MG; Start 08/29/16 at 21:00 Vancomycin HCl (Vancocin) 250 ml @ 125 mls/hr Q96H IVPB Last administered on 16:25; Admin Dose 125 MLS/HR; Start 09/05/16 at 16:00 Amikacin Sulfate (Amikacin Iv Per Pharmacy) AMIKACIN PER PHARMACY NOTE XX ; Start 09/05/16 at 12:30 Acetaminophen (Tylenol Liquid) 650 mg Q4H PRN GTB PAIN AND OR ELEVATED TEMP Last administered on 09/07/16 08:36; Admin Dose 650 MG; Start 09/06/16 at 12:00 Amiodarone HCl (Cordarone) 200 mg DAILY GTB Last administered on 09/07/16 08:37 ; Admin Dose 200 MG; Start 09/06/16 at 09:00 Calcium Acetate (Phoslo) 667 mg Q6 GTB Last administered on 09/07/16 08:37; Admin Dose 667 MG; Start 09/06/16 at 12:00 Metoprolol Tartrate (Lopressor) 50 mg BID GTB Last administered on 09/07/16 08: 37; Admin Dose 50 MG; Start 09/06/16 at 09:00 Ibuprofen (Motrin) 600 mg Q6 GTB Last administered on 09/07/16 12:57; Admin Dose 600 MG; Start 09/06/16 at 12:00 Levofloxacin (Levaquin) 250 mg Q48H GTB Last administered on 09/06/16 17:50; Admin Dose 250 MG; Start 09/06/16 at 18:00 AMOR RODRIGUES Sep 07, 2016 13:19
--- NOTE | 2016-09-07 15:05 | CONS ---
DATE OF ADMISSION: 07/27/2016 DATE OF CONSULTATION: HISTORY OF PRESENT ILLNESS: The patient is 56 -year-old gentleman, has a past medical history of c ardiopulmonary arrest, status post anoxic brain injury, seizure activity, end-stage renal disease on dialysis, hypertension, metabolic acidosis, hypertensive heart disease, asthma, the patient is unre sponsive. CURRENT MEDICATIONS: Include 1. Keppra 1000 mg twice a day. 2. Epogen 10,000 once a day. 3. Coumadin 5 mg once a day. 4. Insulin Lantus 45 mg once a day. 5. Cordarone 200 mg once a day. 6. Prevacid 30 mg once a day. 7. Lopressor 50 mg once a day. 8. Ativan 1 mg once at night as needed. 9. Morphine sulfate 2 mg every 4 hours as needed. 10. Albuterol inhaler as needed. 11. Atrovent inhaler as needed. 12. Labetalol 10 mg every 6 hours as needed. PHYSICAL EXAMINATION: GENERAL: On exam today, the patient is sleepy, does not follow a simple command. CRANIAL NERVES: II: Pupils equal on both sides, reactive. III, IV, and : Extraocular muscles i ntact. V and VII: Intact . VIII through XII: Could not assist. MOTOR: movement to painful stimuli. SENSATION: area for light touch and temperature. COORDINATION: Could not assist. HEART: Regular rate and rhythm. LUNGS: Equal breath sounds. ABDOMEN: Soft, , nondistended, no tenderness. ASSESSMENT AND PLAN: 1. This is patient 56 years old with cardiopulmonary arrest, status post anoxic encephalopathy. 2. The patient with a transient ischemic attack versus stroke. the patient on Coumadin for s troke prophylaxis. 3. History of hypertension. Keep the blood pressure level 140/90 to avoid any extension of he r stroke. 4. History of diabetes. Keep the patient on sliding scale insulin. Hemoglobin A1c. 5. Keep the patient on deep venous thrombus prophylaxis, will add decubitus ulcer prophylaxis. Again, thank you for asking me to see the patient with you. Dictated By: KAYLI ROCK/BATSHEVA Conf#: [id number] [facility]#: [id number]
[2016-09-07] MEDS: WARFARIN 5 MG TAB GTB SCH (16:54)
[2016-09-07] MEDS: EPOETIN 10000 UNITS/1 ML INJ (ESRD) SC SCH (17:43)
--- NOTE | 2016-09-08 00:03 | DS ---
DATE OF ADMISSION: 07/27/2016 DATE OF DISCHARGE: 09/07/2016 FINAL DISCHARGE DIAGNOSES: 1. Status post cardiac arrest secondary to pulseless electrical activity. 2. Acute respiratory failure, hypoxic, unable to wean off, status post tracheostomy for chronic res piratory failure. 3. Status post PEG tube placement. 4. History of end-stage renal disease on hemodialysis. 5. Systemic inflammatory response syndrome secondary to possible pneumonia. 6. Paroxysmal atrial fibrillation with rapid ventricular response. 7. Type 2 diabetes mellitus. 8. Essential hypertension. 9. Seizure disorder. 10. Possible underlying anoxic encephalopathy. 11. Normocytic normochromic anemia. CONSULTATIONS DONE DURING THIS HOSPITALIZATION: 1. Nephrology consult, Dr. Forte. 2. Infectious disease consult, Dr. Stahl. 3. Pulmonary consult, Dr. Lim. HOSPITAL COURSE: This is a 56-year-old male who has a past medical history of hypertension, asthma, history of smoking, history of diabetes mellitus, end-stage renal disease on hemodialysis who prese nted with cardiac arrest. The patient had a cardiac arrest secondary to pulseless electrical activi ty. The patient was resuscitated with a code blue. He was intubated for acute respiratory failure associated with a cardiac arrest. The patient remains intubated. He was followed up by nephrology consult, Dr. Forte and the patient was getting serial hemodialysis for his fluid overload and p ossible uremic encephalopathy. Despite improvement in the urea and the hemodialysis the patie nt was not able to be weaned off. Multiple family meetings were done with the patient's family, but they were reluctant to change any code status so the patient was kept as a FULL CODE. He underwent infectious disease consultation and pulmonary consultation. He was not able to wean off from a adair tilator, so he subsequently had a tracheostomy for his chronic respiratory failure. He also had a s ubsequent G-tube placement for feeding purpose. Upon transfer to the telemetry floor the patient wa s followed up by infectious disease service. He was continued on multiple antibiotics. He was gett ing a couple of days of fever, high grade, which was subsequently resolved. His sputum culture grew gram-negative rods and his blood culture grew gram-positive cocci in chains and clusters. The cherelle ent was hemodynamically stable except having some fevers. Infectious disease followed up on the [facility] ie and the patient was discharged to [facility] for further care and po ssible need of another few weeks of IV antibiotics for his sepsis and fever. DISPOSITION: To a [facility], [place]. DISCHARGE CONDITION: Stable. DISCHARGE MEDICATIONS: As per medical reconciliation. DISCHARGE FOLLOWUP INSTRUCTIONS: The patient is to follow up with a physician at the [facility] and the patient will be followed up by cardiology, nephrology, and the infectious disease service over there for further care. His family was at bedside. They had been explained about the patient's plan for discharge. They understood and verbalized understanding. Dictated By: NINFA PACK MD, KP/NTS Conf#: [id number] DID#: [id number] CC: FARHANA SPENCE MD; KAYLI BERTRAND MD;*EndCC*
== END 2016-09-07 19:30 | DRG 4 ==
LOC: E/R 20:54 → ICU 23:29 → TEL 08-15 16:45
PROVIDERS: ADMIT Student in an Organized Health Care Education/Training Program; ATTEND Student in an Organized Health Care Education/Training Program
PROC: 4A023N7 Measurement of Cardiac Sampling and Pressure, Left Heart, Percutaneous Approach (ICD-10-PCS; 2016-07-27)
PROC: B211YZZ Fluoroscopy of Multiple Coronary Arteries using Other Contrast (ICD-10-PCS; 2016-07-27)
PROC: 5A1D60Z (ICD-10-PCS; 2016-07-27)
PROC: 5A1955Z Respiratory Ventilation, Greater than 96 Consecutive Hours (ICD-10-PCS; principal; 2016-07-27 22:00)
PROC: 02HV33Z Insertion of Infusion Device into Superior Vena Cava, Percutaneous Approach (ICD-10-PCS; 2016-07-29)
PROC: 06HM33Z Insertion of Infusion Device into Right Femoral Vein, Percutaneous Approach (ICD-10-PCS; 2016-08-04)
PROC: B54BZZA Ultrasonography of Right Lower Extremity Veins, Guidance (ICD-10-PCS; 2016-08-04)
PROC: 06PYX3Z Removal of Infusion Device from Lower Vein, External Approach (ICD-10-PCS; 2016-08-08)
PROC: 06HM33Z Insertion of Infusion Device into Right Femoral Vein, Percutaneous Approach (ICD-10-PCS; 2016-08-08)
PROC: 0B110F4 Bypass Trachea to Cutaneous with Tracheostomy Device, Open Approach (ICD-10-PCS; 2016-08-11)
PROC: 5A2204Z Restoration of Cardiac Rhythm, Single (ICD-10-PCS; 2016-08-11)
PROC: 0DH63UZ Insertion of Feeding Device into Stomach, Percutaneous Approach (ICD-10-PCS; 2016-08-12)
DX: I21.3 ST elevation (STEMI) myocardial infarction of unspecified site (principal); I63.8 Other cerebral infarction; I46.9 Cardiac arrest, cause unspecified; I50.33 Acute on chronic diastolic (congestive) heart failure; G93.1 Anoxic brain damage, not elsewhere classified; J18.9 Pneumonia, unspecified organism; E87.4 Mixed disorder of acid-base balance; N18.6 End stage renal disease; J96.01 Acute respiratory failure with hypoxia; I13.2 Hypertensive heart and chronic kidney disease with heart failure and with stage 5 chronic kidney disease, or end stage renal disease; Z68.41 Body mass index [BMI] 40.0-44.9, adult; T82.9XXA Unspecified complication of cardiac and vascular prosthetic device, implant and graft, initial encounter; T82.49XA Other complication of vascular dialysis catheter, initial encounter; L89.152 Pressure ulcer of sacral region, stage 2; E11.21 Type 2 diabetes mellitus with diabetic nephropathy; J44.9 Chronic obstructive pulmonary disease, unspecified; E11.22 Type 2 diabetes mellitus with diabetic chronic kidney disease; E11.65 Type 2 diabetes mellitus with hyperglycemia; E87.79 Other fluid overload; F17.210 Nicotine dependence, cigarettes, uncomplicated; G40.909 Epilepsy, unspecified, not intractable, without status epilepticus; E66.01 Morbid (severe) obesity due to excess calories; J45.909 Unspecified asthma, uncomplicated; K29.80 Duodenitis without bleeding; E83.39 Other disorders of phosphorus metabolism; I48.0 Paroxysmal atrial fibrillation; Z99.2 Dependence on renal dialysis; Z79.84 Long term (current) use of oral hypoglycemic drugs; Z79.4 Long term (current) use of insulin
CPT/HCPCS: 36415; 36430; 36569; 36600; 70450; 70551; 71010; 76937; 80048; 80053; 80076; 80164; 80202; 81001; 81003; 82270; 82550; 82553; 82728; 82803; 82962; 83036; 83540; 83605; 83735; 83880; 84100; 84134; 84484; 85014; 85025; 85610; 85730; 86078; 86704; 86709; 86803; 86850; 86900; 86901; 86920; 87040; 87045; 87070; 87075; 87081; 87086; 87340; 89220; 90935; 93005; 93306; 93458; 93880; 94002; 94003; 94640; 94664; 94770; 95819; 96374; 96375; A4310; C1760; C1887; C1894; C9113; J0278; J0282; J0360; J0690; J0692; J0886; J1644; J1815; J1953; J2060; J2250; J2270; J2543; J2930; J3010; J3370; J7040; J7050; P9016; P9047; Q9967